=== PATIENT | female | born 2000 | race Two or more races ===

== ENCOUNTER 2023-03-26 11:32 | Emergency (ER) | payer SELFPAY ==
[2023-03-26 11:37] VITALS: BP 140/88; PULSE 83; RESP 20; TEMP 36.3; O2SAT 99; BMI 47.3
--- NOTE | 2023-03-26 11:50 | XR_ITS ---
The [address] [address] Patient Name: TEODORO HERNANDES MRN: [id number] date: 2000 Sex: F Assigned Patient Location: ER Current Patient Location: ER Accession/Order Number: [id number] Exam Date: 03/26/2023 11:50 Report Date: 03/26/2023 12:48 At the request of: LEEANNA CORTES Procedure: XR knee LT 4V PROCEDURE: XR knee LT 4V HISTORY: fall, left knee injury COMPARISON: None. FINDINGS: BONES:No fracture, acute abnormality, or significant arthropathy. SOFT TISSUES:No visible soft tissue swelling. EFFUSION:None visible. OTHER: Negative. XR/XR knee LT 4V IMPRESSION: 1. No acute bone abnormality. Electronically authenticated by: ZURI VITALE Date: 03/26/2023 12:48
--- NOTE | 2023-03-26 13:10 | ED.LOWEXI1 ---
HPI - Extremity Injury (Lower) General Chief Complaint: Extremity Injury, Lower Stated Complaint: LOWER EXTREMITY LEFT Time Seen by Provider: 03/26/23 11:39 Source: patient Mode of arrival: walk-in Limitations: no limitations History of Present Illness HPI Narrative: the patient fell yesterday and injured left knee while trying to get onto a motorcycle. She said that as she lifted the right leg, the left knee popped and she fell to the ground. She complains of pain to the front of the knee. She took some ibuprofen yesterday, non today. No prior injury or surgery to the knee. Related Data Home Medications Medication Instructions Recorded Confirmed No Known Home Medications 03/26/23 03/26/23 Allergies Allergy/AdvReac Type Severity Reaction Status Date / Time No Known Drug Allergies Allergy Verified 03/26/23 11:41 Exam Narrative Exam Narrative: Vital signs reviewed and nurse's notes. The patient is not hypoxic. General: Alert, no acute distress, patient resting comfortably Skin: warm, intact, no pallor noted Head: Normocephalic, atraumatic Eye: Normal conjunctiva Respiratory: No acute distress Musculoskeletal: No evidence of deformity to the L knee. There is minimal amount of swelling. There is no ecchymosis. No erythema or warmth noted. DP and PT pulses are intact 2+. Normal sensation, normal capillary refill less than 2 seconds. There is no cyanosis or mottling noted. The patient has tenderness to the anterior knee and pain with patellar manipulation. The patient has no laxity with varus or valgus stressing. The patient has negative anterior drawer and Juan Jose testing. The patient was able to flex and extend although with pain. Patient was able to extend leg off the cart without difficulty. No tenderness noted to the 5th MT, midfoot, ankle or proximal fibular area. There is no pain with calcaneal squeeze, achilles tendon is intact and no defect is palpated. The patient has no pelvic instability. The patient has no shortening or rotation noted to the bilateral lower extremities. Neurological: alert and orient x4, normal sensory and motor observed. Psychiatric: Cooperative Constitutional Vital Signs, click to edit/add: Last Vital Signs Temp 97.4 F L 03/26/23 11:37 Pulse 83 03/26/23 11:37 Resp 20 03/26/23 11:37 BP 140/88 03/26/23 11:37 Pulse Ox 99 03/26/23 11:37 O2 Del Method Room Air 03/26/23 11:37 Course Vital Signs Vital signs: Vital Signs Temperature 97.4 F L 03/26/23 11:37 Pulse Rate 83 03/26/23 11:37 Respiratory Rate 20 03/26/23 11:37 Blood Pressure 140/88 03/26/23 11:37 Pulse Oximetry 99 03/26/23 11:37 Oxygen Delivery Method Room Air 03/26/23 11:37 Temperature 97.4 F L 03/26/23 11:37 Pulse Rate 83 03/26/23 11:37 Respiratory Rate 20 03/26/23 11:37 Blood Pressure 140/88 03/26/23 11:37 Pulse Oximetry 99 03/26/23 11:37 Oxygen Delivery Method Room Air 03/26/23 11:37 MDM - Extremity Injury (Lower) MDM Narrative Medical decision making narrative: xrays of the left knee obtained and were negative for fracture, dislocation or other acute bony abnormality. Patient declined offer for stephania wrap and prescription meds -s he said she had no insurance and would use her friend's stephania wrap. I gave her referral info for Dr Bose but she did not seem enthusiastic about calling. Discussed R.I.C.E. therapy. Imaging Data xr knee: Radiologist's impression: Patient Name: TEODORO HERNANDES MRN: [id number] date: 2000 Sex: F Assigned Patient Location: ER Current Patient Location: ER Accession/Order Number: [id number] Exam Date: 03/26/2023 11:50 Report Date: 03/26/2023 12:48 At the request of: LEEANNA CORTES Procedure: XR knee LT 4V PROCEDURE: XR knee LT 4V HISTORY: fall, left knee injury COMPARISON: None. FINDINGS: BONES:No fracture, acute abnormality, or significant arthropathy. SOFT TISSUES:No visible soft tissue swelling. EFFUSION:None visible. OTHER: Negative. IMPRESSION: 1. No acute bone abnormality. Electronically authenticated by: TIMA VITALE Date: 03/26/2023 12:48 Discharge Plan Discharge Chief Complaint: Extremity Injury, Lower Clinical Impression: Left knee sprain Time of Disposition Decision: 13:19 Prescriptions / Home Meds: No Action No Known Home Medications Instructions: Knee Sprain (ED) Stand Alone Forms: Portal Instructions Referrals: Physician,Non-Staff, [Primary Care Provider] - 1 week Tima Bose MD [Physician] - 1 week
== END 2023-03-26 13:42 | disposition home or self-care (01) ==
PROVIDERS: Emergency Provider Emergency Medicine
DX: S83.92XA Sprain of unspecified site of left knee, initial encounter (principal); X50.9XXA Other and unspecified overexertion or strenuous movements or postures, initial encounter
CPT/HCPCS: 73564; 99283

== ENCOUNTER 2023-07-03 12:37 | Outpatient (OUT) | payer BC, SELFPAY ==
--- NOTE | 2023-07-03 12:39 | US_ITS ---
[address] [address] Patient Name: TEODORO HERNANDES MRN: [id number] date: 2000 Sex: F Assigned Patient Location: [facility] Current Patient Location: [facility] Accession/Order Number: [id number] Exam Date: 07/03/2023 12:39 Report Date: 07/03/2023 13:34 At the request of: CHUNG MAGDALENO Procedure: US OB transvaginal EXAMINATION: US OB transvaginal HISTORY: MISSED MENSES COMPARISON: No relevant comparison available. FINDINGS: GESTATIONAL SAC: Present and normal appearing. YOLK SAC: Present and normal appearing. POLE: Present and normal appearing. CARDIAC: Present. UTERUS: Normal size and appearance. OVARIES: Right: Normal. Left: Normal. CERVIX: 4.8 cm in length and closed. CUL-DE-SAC: Normal. OTHER: None. AGE BY LMP: 8 weeks 0 days ROGER BY LMP: 02/12/2024 AGE BY US CRL: 7 weeks 3 days ROGER BY US CRL: 02/16/2024 US/US OB transvaginal IMPRESSION: 1. Single live intrauterine . Electronically authenticated by: ZURI VITALE Date: 07/03/2023 13:34
--- OUTSIDE RECORDS SUMMARY | 2023-07-03 12:58 | XMS_ITS | CCD ---
Author Name Unknown Address [address] [place] [address] Organization [facility] Care Team Providers Care Safety Security Officer Name Role Phone Unavailable Primary Care Provider UnavailDAVID Ayers Attending Unavailable NO FAMILY, PHYSICIAN Primary Care Provider Unava MD Anders Tse Jr Emergency Provider PAY ., DR GREGORY Admitting Unavailable PAY ., DR GREGORY Consulting Unavailable REQUEST, DR IBRAHIM LISTED Primary Care Unavaila ble PAY ., DR GREGORY Attending Unavailable PADDY SAPP Consulting Unavailable PAY ., DR GREGORY Attending Unavailable PAY ., DR GREGORY Admitting Unavailable GRECHNY ., AMAYA FRANCISCO Consulting Unavailabl e REQUEST, DR IBRAHIM LISTED Primary Care Unavaila ble MARKER ., DR JERNIGAN Attending Unavailable MARKER ., DR JERNIGAN Admitting Unavailable MISC, DR VAN Primary Care Unavailable MARKER ., DR JERNIGAN Consulting Unavailable STRAWSER, [facility] Consulting Unavailable NO FAMILY, PHYSICIAN Primary Care Unavailable Anders Sesay Jr Attending Unavailable Anders Sesay Jr Admitting Unavailable Allergies Allergy Classification Reported Allergen(s) Allergy Type Date of Onset Reaction(s) Facility (1 source) Latex Propensity to adverse reactions to drug 07-07-2020 [facility] [place] Medications Current Medications Medication Drug Class(es) Dates Sig (Normalized) Sig (Original) cephalexin 500 mg oral capsule (2 sources) Cephalosporin Antibacterial Start: 07-08-2020 End: 07-18-2020 take 1 capsule by mouth twice daily cephALEXin (KEFLEX) 500 MG capsule Take 1 capsule by mouth 2 times daily for 10 days 20 capsule 0 07/08/2020 07/18/2020 Active Start: 07-08-2020 End: 07-08-2020 cephALEXin (KEFLEX) capsule 500 mg cholecalciferol 2000 unt oral capsule (1 source) Vitamin D Start: 07-08-2020 Vitamin D, Cho lecalciferol, 50 MCG (1999 UT) CAPS Take 2,000 Units by mouth daily 30 capsule 0 07/08/2020 Active Start: 07-08-2020 Vitamin D, Cho lecalciferol, 50 MCG (1999 UT) CAPS Take 2,000 Units by mouth daily 30 capsule 0 07/08/2020 Active ibuprofen 600 mg oral tablet (2 sources) Nonsteroidal Anti-inflammatory Drug Start: 06-27-2020 End: 10-19-2021 take 600 mg by mouth every eight hours Ibuprofen Active 600 MG PO Q8H October 19, 2021 1:51am metroNIDAZOLE 500 mg oral tablet (2 sources) Nitroimidazole Antimicrobial Start: 07-08-2020 End: 07-18-2020 take 1 tablet by mouth twice daily metroNIDAZOLE (FLAGYL) 500 MG tablet Take 1 tablet by mouth 2 times daily for 10 days 20 tablet 0 07/08/2020 07/18/2020 Active Completed/Discontinued Medications Medication Drug Class(es) Dates Sig (Normalized) Sig (Original) fluconazole 150 mg oral tablet (1 source) Azole Antifungal Start: 06-27-2020 End: 10-19-2021 take 1 tablet by mouth once Fluconazole (Diflucan) 150 mg tablet Discontinued 150 MG PO Once June 27, 2020 4:52am October 19, 2021 1:02am as a single dose magnesium oxide 400 mg oral tablet (1 source) Start: 07-08-2020 End: 07-08-2020 magnesium oxide (MAG-OX) tablet 400 mg nitrofurantoin, macrocrystals 25 mg / nitrofurantoin, monohydrate 75 mg oral capsule (1 source) Nitrofuran Antibacterial Start: 06-27-2020 End: 10-19-2021 take 1 capsule by mouth every twelve hours at mealtime Nitrofurantoin Monohyd/M-Cryst (Macrobid) 100 mg capsule Discontinued 100 MG PO Q12H 10 5 June 27, 2020 4:52am October 19, 2021 1:02am administer with a meal/food; swallow whole; do not open, crush, dissolve , or chew Problems Active Problems Problem Classification Problem Date Documented Date Episodic/Chronic Asthma (1 source) Unspecified asthma, uncomplicated; Translations: [UNSPECIFIED ASTHMA UNCOMPLICATED] Onset: 09-03-2022 Chronic Attention-deficit, conduct, and disruptive behavior disorders (1 source) Attention-deficit hyperactivity disorder, unspecified type; Translations: [ADHD UNSPECIFIED TYPE] Onset: 09-03-2022 Chronic E Codes: Struck by; against (1 source) Walked into furniture, initial encounter; Translations: [WALKED INTO FURNITURE INITIAL ENC] Onset: 09-03-2022 Episodic Fracture of lower limb (1 source) Displaced fracture of proximal phalanx of right great toe, initial encounter for closed fracture; Translations: [DSPL FX PROX PHAL RT GT TOE INT ISRRAEL] Onset: 09-03-2022 Episodic Inflammatory diseases of female pelvic organs (2 sources) Bacterial vaginosis; Translations: [Vaginitis] 06-27-2020 Episodic Nonmalignant breast conditions (1 source) Breast lump; Translations: [Unspecified lump in unspecified breast] 10-19-2021 Episodic Nutritional deficiencies (1 source) Vitamin D deficiency; Translations: [Vitamin D deficiency] Chronic Other connective tissue disease (3 sources) Pain in right toe(s); Translations: [PAIN IN RIGHT TOES] Onset: 08-30-2022 Episodic Other female genital disorders (1 source) Vaginal bleeding; Translations: [Vaginal bleeding] Episodic Other nutritional; endocrine; and metabolic disorders (1 source) Hypomagnesemia; Translations: [Hypomagnesemia] Chronic Other screening for suspected conditions (not mental disorders or infectious disease) (4 sources) Encounter for test, result negative; Translations: [ENC TEST RESULT NEGATIVE] Onset: 06-28-2022 Episodic Other skin disorders (1 source) Rash and other nonspecific skin eruption; Translations: [RASH OTH NONSPECIFIC SKIN ERUPTION] Onset: 07-01-2022 Episodic Superficial injury; contusion (1 source) Contusion of right great toe without damage to nail, initial encounter; Translations: [CONTUS RT GRT TOE W/O DMG NAIL INIT] Onset: 09-03-2022 Episodic Urinary tract infections (2 sources) Acute cystitis; Translations: [Urinary tract infectious disease] 06-27-2020 Episodic Past or Other Problems Problem Classification Problem Date Documented Da te Episodic/Chronic Abdominal pain (3 sources) Pain in pelvis; Translations: [Pelvic and perineal pain] Onset: 10-19-2021 10-19-2021 Episodic Other female genital disorders (3 sources) Other specified conditions associated with female genital organs and menstrual cycle; Translations: [OTH SPEC COND FE GEN ORG MENST CYCL] Onset: 04-01-2022 Episodic Results Test Name Value Interpretation Reference Range Facility XR FOOT RT MIN 3 VIEWSon XR FOOT RT MIN 3 VIEWS CLINICAL HISTORY: Bone injury. Great toe pain. Patient kicked a dresser approximately 1 hour ago. EXAMINATION: Right foot: 08/30/2022. COMPARISON: None. FINDINGS: 3 views are provided which demonstrate minimally displaced, obliquely oriented fracture through the base of the distal phalanx of first digit with extension into the intra-articular surface. There is some associated soft tissue swelling. There are no other fractures or dislocations. There is an enthesophyte at the insertion site of plantar aponeurosis. There are no abnormal calcifications or radiopaque foreign bodies. IMPRESSION: 1. Slightly obliquely oriented fracture extending from base of the distal phalanx of first digit along its medial aspect to the level of mid shaft compatible with intra-articular fracture. There is no significant displacement. There is some associated soft tissue swelling. Electronically authenticated by: PADDY SAPP Date: 2022-08-30 14:42 Normal [facility] CBC AUTO DIFFon 06-28-2022 BASO # 0.0 103/ul Normal 0.0-0.[address] [facility] Comment on above: Performed By: #### C BC #### [facility] [address] [address] [address] Jerald Poon Basophils/100 WBC (Bld) 0.3 % Normal 0.2-2.0 [facility] Comment on above: Performed By: #### C BC #### [facility] [address] [address] [address] Jerald Poon EO # 0.1 103/ul Normal 0.0-0.[address] [facility] Comment on above: Performed By: #### C BC #### [facility] [address] [address] [address] Jerald Poon Eosinophils/100 WBC (Bld) 1.1 % Normal 0.9-7.[address] [facility] Comment on above: Performed By: #### C BC #### [facility] [address] [place] [address] Dr. Jerald Poon Erythrocyte distribution width (RBC) [Ratio] 14.5 % Normal 11.0-15.[address] [facility] Comment on above: Performed By: #### C BC #### [facility] [address] [place] [address] Dr. Jerald Poon Hematocrit (Bld) [Volume fraction] 36.7 % Normal 36.0-48.[address] [facility] Comment on above: Performed By: #### C BC #### [facility] [address] [place] [address] Dr. Jerald Poon Hemoglobin (Bld) [Mass/Vol] 13.0 g/dL Normal 12.0-16.[address] [facility] Comment on above: Performed By: #### C BC #### [facility] [address] [place] [address] Dr. Jerald Poon IG # 0.04 10e3/ul Critically high 0.00-0.03 [facility] Comment on above: Performed By: #### C BC #### [facility] [address] [place] [address] Dr. Jerald Poon IG % 0.3 % Normal 0.0-0.[address] [facility] Comment on above: Performed By: #### C BC #### [facility] [address] [place] [address] Dr. Jerald Poon LYMPH # 3.0 103/ul Normal 1.2-3.[address] [facility] Comment on above: Performed By: #### C BC #### [facility] [address] [place] [address] Dr. Jerald Poon Lymphocytes/100 WBC (Bld) 26.2 % Normal 20.5-60.[address] [facility] Comment on above: Performed By: #### C BC #### [facility] [address] [place] [address] Dr. Jerald Poon MANUAL DIFF REQ NO Normal [facility] Comment on above: Performed By: #### C BC #### [facility] [address] [address] [address] Jerald Poon MCH (RBC) [Entitic mass] 27.1 pg Normal 26.7-34.[address] [facility] Comment on above: Performed By: #### C BC #### [facility] [address] [place] [address] Dr. Jerald Poon MCHC (RBC) [Mass/Vol] 35.4 g/dL Critically high 29.9-35.[address] [facility] Comment on above: Performed By: #### C BC #### [facility] [address] [place] [address] Dr. Jerald Poon MCV (RBC) [Entitic vol] 76.6 fL Critically low 81.0-99. [address] [facility] Comment on above: Performed By: #### C BC #### [facility] [address] [place] [address] Dr. Jerald Poon MONO # 0.8 103/ul Normal 0.3-0.[address] [facility] Comment on above: Performed By: #### C BC #### [facility] [address] [place] [address] Dr. Jerald Poon Monocytes/100 WBC (Bld) 7.0 % Normal 1.7-12.0 [facility] Comment on above: Performed By: #### C BC #### [facility] [address] [place] [address] Dr. Jerald Poon NEUT # 7.5 103/ul Critically high 1.4-6.5 [facility] Comment on above: Performed By: #### C BC #### [facility] [address] [place] [address] Dr. Jerald Poon Neutrophils/100 WBC (Bld) 65.1 % Normal 43.0-75.[address] [facility] Comment on above: Performed By: #### C BC #### [facility] [address] [place] [address] Dr. Jerald Poon Platelet mean volume (Bld) [Entitic vol] 10.0 fL Normal 9.5-13.[address] [facility] Comment on above: Performed By: #### C BC #### [facility] [address] [place] [address] Dr. Jerald Poon PLT 387 103/ul Normal 150-[address] [facility] Comment on above: Performed By: #### C BC #### [facility] [address] [place] [address] Dr. Jerald Poon RBC 4.79 106/ul Normal 4.20-5.[address] [facility] Comment on above: Performed By: #### C BC #### [facility] [address] [place] [address] Dr. Jerald Poon WBC 11.6 103/ul Critically high 4.0-11.0 [facility] Comment on above: Performed By: #### C BC #### [facility] [address] [place] [address] Dr. Jerald Poon CULTURE URINEon 06-28-2022 CULTURE URINE Culture Observations: LIGHT GROWTH OF MIXED GENITAL ZACARIAS. NO POTENTIAL PATHOGENS SEEN. Normal [facility] Comment on above: Performed By: #### U RCX #### [facility] [address] [place] [address] Dr. Jerald Poon ER URINE PROFILEon 3 Bilirubin Ql (U) Negative Normal NEGATIVE [facility] Comment on above: Performed By: #### U MICRO, ERUR #### [facility] [address] [place] [address] Dr. Jerald Poon Clarity (U) CLEAR Normal CLEAR [facility] Comment on above: Performed By: #### U MICRO, ERUR #### [facility] [address] [place] [address] Dr. Jerald Poon Color (U) YELLOW Normal YELLOW [facility] Comment on above: Performed By: #### U MICRO, ERUR #### [facility] [address] [place] [address] Dr. Jerald CEBALLOS A micrscopic examination will be performed if indicated. Normal [facility] Comment on above: Performed By: #### U MICRO, ERUR #### [facility] [address] [place] [address] Dr. Jerald Poon Glucose Ql (U) Negative Normal NEGATIVE [facility] Comment on above: Performed By: #### U MICRO, ERUR #### [facility] [address] [address] [address] Jerald Poon Hemoglobin Ql (U) Negative Normal NEGATIVE [facility] Comment on above: Performed By: #### U MICRO, ERUR #### [facility] [address] [address] [address] Jerald Poon Ketones Ql (U) 40 mg/dl Abnormal NEGATIVE [facility] Comment on above: Performed By: #### U MICRO, ERUR #### [facility] [address] [address] [address] Jerald Poon LEUKOCYTES TRACE Abnormal NEGATIVE [facility] Comment on above: Performed By: #### U MICRO, ERUR #### [facility] [address] [place] [address] Dr. Jerald Poon Nitrite Ql (U) Negative Normal NEGATIVE [facility] Comment on above: Performed By: #### U MICRO, ERUR #### [facility] [address] [address] [address] Jerald Poon pH (U) 6.0 [pH] Normal 5-[address] [facility] Comment on above: Performed By: #### U MICRO, ERUR #### [facility] [address] [address] [address] Jerald Poon SPEC GRAVITY >=1.030 Abnormal 1.005-<=1.025 [facility] Comment on above: Performed By: #### U MICRO, ERUR #### [facility] [address] [address] [address] Jerald Poon UA PROTEIN Negative Normal NEGATIVE/ TRACE [facility] Comment on above: Performed By: #### U MICRO, ERUR #### [facility] [address] [address] [address] Jerald Poon UR MICRO IND INDICATED Normal [facility] Comment on above: Performed By: #### U MICRO, ERUR #### [facility] [address] [place] [address] Dr. Jerald Poon Urobilinogen Qn (U) 0.2 {Lyly'U}/dL Normal 0.2 - 1. [address] [facility] Comment on above: Performed By: #### U MICRO, ERUR #### [facility] [address] [place] [address] Dr. Jerald Poon PREG QUANT HCGon 06-28-2022 HCG QUANT <[address] [facility] Comment on above: Performed By: #### P REGQNT #### [facility] [address] [place] [address] Dr. Jerald Poon HCG RANGE SEE BELOW Normal [facility] Comment on above: Result Comment: 5-50 0.2-1 WEEK 50-500 1-2 WEEKS 100-5,000 2-3 WEEKS 500-10,000 3-4 WEEKS 1,000-50,000 4-5 WEEKS 10,000-100,000 5-6 WEEKS 15,000-200,000 6-8 WEEKS 10,000-100,000 2-3 MONTHS Performed By: #### P REGQNT #### [facility] [address] [place] [address] Dr. Jerald Poon PROF CHEM 8 (BAS METB)on Anion gap [Moles/Vol] 14.0 mmol/L Normal [facility] Comment on above: Performed By: #### C BC #### [facility] [address] [place] [address] Dr. Jerald Poon Calcium [Mass/Vol] 9.6 mg/dL Normal 8.5-10.1 [facility] Comment on above: Performed By: #### C BC #### [facility] [address] [place] [address] Dr. Jerald Poon Chloride [Moles/Vol] 101 mmol/L Normal 98-[address] [facility] Comment on above: Performed By: #### C BC #### [facility] [address] [place] [address] Dr. Jerald Poon CO2 [Moles/Vol] 25.4 mmol/L Normal 21.0-32.0 [facility] Comment on above: Performed By: #### C BC #### [facility] [address] [address] [address] Jerald Poon Creatinine [Mass/Vol] 0.92 mg/dL Normal 0.55-1.[address] [facility] Comment on above: Performed By: #### C BC #### [facility] [address] [address] [address] Jerald Poon EGFR-AF SINGAPOREAN >60 Normal >=60 [facility] Comment on above: Performed By: #### C BC #### [facility] [address] [address] [address] Jerald Poon EGFR-NON AF SINGAPOREAN >60 Normal >=[address] [facility] Comment on above: Performed By: #### C BC #### [facility] [address] [place] [address] Dr. Jerald Poon Glucose [Mass/Vol] 101 mg/dL Normal 74-106 [facility] Comment on above: Performed By: #### C BC #### [facility] [address] [place] [address] Dr. Jerald Poon Potassium [Moles/Vol] 3.4 mmol/L Critically low 3.5-5.[address] [facility] Comment on above: Performed By: #### C BC #### [facility] [address] [place] [address] Dr. Jerald Poon Sodium [Moles/Vol] 137 mmol/L Normal 136-145 [facility] Comment on above: Performed By: #### C BC #### [facility] [address] [address] [address] Jerald Poon Urea nitrogen [Mass/Vol] 11.0 mg/dL Normal 7.0-18.[address] [facility] Comment on above: Performed By: #### C BC #### [facility] [address] [place] [address] Dr. Jerald Poon Urea nitrogen/Creatinine [Mass ratio] 12.0 mg/mg Normal [facility] Comment on above: Performed By: #### C BC #### [facility] [address] [place] [address] Dr. Jerald Poon TSHon 06-28-2022 TSH 1.319 uIU/mL Normal 0.358-3.740 [facility] Comment on above: Performed By: #### C BC #### [facility] [address] [place] [address] Dr. Jerald Poon URINE MICROSCOPIC ONLYon BACTERIA SMALL Abnormal NONE SEEN [facility] Comment on above: Performed By: #### U MICRO, ERUR #### [facility] [address] [address] [address] Jerald Poon Bacteria identified Cx Nom (U) INDICATED Normal [facility] Comment on above: Performed By: #### U MICRO, ERUR #### [facility] [address] [place] [address] Dr. Jerald Poon CAST NONE SEEN Normal NONE SEEN [facility] Comment on above: Performed By: #### U MICRO, ERUR #### [facility] [address] [place] [address] Dr. Jerald Poon Crystals LM Nom (Urine sed) NONE SEEN Normal NONE SEEN [facility] Comment on above: Performed By: #### U MICRO, ERUR #### [facility] [address] [place] [address] Dr. Jerald Poon Epithelial cells LM Ql (Urine sed) FEW Abnormal NONE SEEN /RARE [facility] Comment on above: Performed By: #### U MICRO, ERUR #### [facility] [address] [place] [address] Dr. Jerald Poon MUCOUS NONE SEEN Normal NONE SEEN [facility] Comment on above: Performed By: #### U MICRO, ERUR #### [facility] [address] [place] [address] Dr. Jerald Poon RBC NONE SEEN Abnormal 0-2 [facility] Comment on above: Performed By: #### U MICRO, ERUR #### [facility] [address] [place] [address] Dr. Jerald Poon WBC 2-5 Abnormal NONE SEEN [facility] Comment on above: Performed By: #### U MICRO, ERUR #### [facility] [address] [place] [address] Dr. Jerald Poon CBC AUTO DIFFon 04-01-2022 BASO # 0.0 103/ul Normal 0.0-0.[address] [facility] Comment on above: Performed By: #### C BC #### [facility] [address] [place] [address] Dr. Jerald Poon Basophils/100 WBC (Bld) 0.5 % Normal 0.2-2.0 [facility] Comment on above: Performed By: #### C BC #### [facility] [address] [place] [address] Dr. Jerald Poon EO # 0.1 103/ul Normal 0.0-0.[address] [facility] Comment on above: Performed By: #### C BC #### [facility] [address] [place] [address] Dr. Jerald Poon Eosinophils/100 WBC (Bld) 1.7 % Normal 0.9-7.[address] [facility] Comment on above: Performed By: #### C BC #### [facility] [address] [place] [address] Dr. Jerald Poon Erythrocyte distribution width (RBC) [Ratio] 14.2 % Normal 11.0-15.[address] [facility] Comment on above: Performed By: #### C BC #### [facility] [address] [place] [address] Dr. Jerald Poon Hematocrit (Bld) [Volume fraction] 36.7 % Normal 36.0-48.[address] [facility] Comment on above: Performed By: #### C BC #### [facility] [address] [place] [address] Dr. Jerald Poon Hemoglobin (Bld) [Mass/Vol] 12.1 g/dL Normal 12.0-16.[address] [facility] Comment on above: Performed By: #### C BC #### [facility] [address] [place] [address] Dr. Jerald Poon IG # 0.01 10e3/ul Normal 0.00-0.[address] [facility] Comment on above: Performed By: #### C BC #### [facility] [address] [place] [address] Dr. Jerald Poon IG % 0.1 % Normal 0.0-0.[address] [facility] Comment on above: Performed By: #### C BC #### [facility] [address] [place] [address] Dr. Jerald Poon LYMPH # 2.3 103/ul Normal 1.2-3.[address] [facility] Comment on above: Performed By: #### C BC #### [facility] [address] [place] [address] Dr. Jerald Poon Lymphocytes/100 WBC (Bld) 30.8 % Normal 20.5-60.[address] [facility] Comment on above: Performed By: #### C BC #### [facility] [address] [place] [address] Dr. Jerald Poon MANUAL DIFF REQ NO Normal [facility] Comment on above: Performed By: #### C BC #### [facility] [address] [place] [address] Dr. Jerald Poon MCH (RBC) [Entitic mass] 27.3 pg Normal 26.7-34.[address] [facility] Comment on above: Performed By: #### C BC #### [facility] [address] [place] [address] Dr. Jerald Poon MCHC (RBC) [Mass/Vol] 33.0 g/dL Normal 29.9-35.[address] [facility] Comment on above: Performed By: #### C BC #### [facility] [address] [place] [address] Dr. Jerald Poon MCV (RBC) [Entitic vol] 82.7 fL Normal 81.0-99.0 [facility] Comment on above: Performed By: #### C BC #### [facility] [address] [place] [address] Dr. Jerald Poon MONO # 0.8 103/ul Normal 0.3-0.[address] [facility] Comment on above: Performed By: #### C BC #### [facility] [address] [place] [address] Dr. Jerald Poon Monocytes/100 WBC (Bld) 10.6 % Normal 1.7-12.0 [facility] Comment on above: Performed By: #### C BC #### [facility] [address] [place] [address] Dr. Jerald Poon NEUT # 4.2 103/ul Normal 1.4-6.[address] [facility] Comment on above: Performed By: #### C BC #### [facility] [address] [place] [address] Dr. Jerald Poon Neutrophils/100 WBC (Bld) 56.3 % Normal 43.0-75.[address] [facility] Comment on above: Performed By: #### C BC #### [facility] [address] [place] [address] Dr. Jerald Poon Platelet mean volume (Bld) [Entitic vol] 10.2 fL Normal 9.5-13.[address] [facility] Comment on above: Performed By: #### C BC #### [facility] [address] [place] [address] Dr. Jerald Poon PLT 375 103/ul Normal 150-450 [facility] Comment on above: Performed By: #### C BC #### [facility] [address] [place] [address] Dr. Jerald Poon RBC 4.44 106/ul Normal 4.20-5.[address] [facility] Comment on above: Performed By: #### C BC #### [facility] [address] [place] [address] Dr. Jerald Poon WBC 7.5 103/ul Normal 4.0-11.0 [facility] Comment on above: Performed By: #### C BC #### [facility] [address] [place] [address] Dr. Jerald Poon ER URINE PROFILEon 2 Bilirubin Ql (U) Negative Normal NEGATIVE [facility] Comment on above: Performed By: #### C BC #### [facility] [address] [place] [address] Dr. Jerald Poon Clarity (U) CLEAR Normal CLEAR [facility] Comment on above: Performed By: #### C BC #### [facility] [address] [address] [address] Jerald Poon Color (U) YELLOW Normal YELLOW [facility] Comment on above: Performed By: #### C BC #### [facility] [address] [address] [address] Jreald CEBALLOS A micrscopic examination will be performed if indicated. Normal [facility] Comment on above: Performed By: #### C BC #### [facility] [address] [address] [address] Jerald Poon Glucose Ql (U) Negative Normal NEGATIVE [facility] Comment on above: Performed By: #### C BC #### [facility] [address] [place] [address] Dr. Jerald Poon Hemoglobin Ql (U) Negative Normal NEGATIVE [facility] Comment on above: Performed By: #### C BC #### [facility] [address] [address] [address] Jerald Poon Ketones Ql (U) Negative Normal NEGATIVE [facility] Comment on above: Performed By: #### C BC #### [facility] [address] [place] [address] Dr. Jerald Poon LEUKOCYTES Negative Normal NEGATIVE [facility] Comment on above: Performed By: #### C BC #### [facility] [address] [place] [address] Dr. Jerald Poon Nitrite Ql (U) Negative Normal NEGATIVE [facility] Comment on above: Performed By: #### C BC #### [facility] [address] [place] [address] Dr. Jerald Poon pH (U) 7.0 [pH] Normal 5-9 [facility] Comment on above: Performed By: #### C BC #### [facility] [address] [place] [address] Dr. Jerald Poon SPEC GRAVITY 1.025 Normal 1.005-<=1.025 [facility] Comment on above: Performed By: #### C BC #### [facility] [address] [place] [address] Dr. Jerald Poon UA PROTEIN Negative Normal NEGATIVE/ TRACE [facility] Comment on above: Performed By: #### C BC #### [facility] [address] [address] [address] Jerald Poon UR MICRO IND NOT INDICATED Normal [facility] Comment on above: Performed By: #### C BC #### [facility] [address] [place] [address] Dr. Jerald Poon Urobilinogen Qn (U) 1.0 {Lyly'U}/dL Normal 0.2 - 1. [address] [facility] Comment on above: Performed By: #### C BC #### [facility] [address] [place] [address] Dr. Jerald Poon PREG QUANT HCGon 04-01-2022 HCG QUANT 1 mIU/mL Normal [facility] Comment on above: Performed By: #### P REGQNT #### [facility] [address] [place] [address] Dr. Jerald Poon HCG RANGE SEE BELOW Normal [facility] Comment on above: Result Comment: 5-50 0.2-1 WEEK 50-500 1-2 WEEKS 100-5,000 2-3 WEEKS 500-10,000 3-4 WEEKS 1,000-50,000 4-5 WEEKS 10,000-100,000 5-6 WEEKS 15,000-200,000 6-8 WEEKS 10,000-100,000 2-3 MONTHS Performed By: #### P REGQNT #### [facility] [address] [place] [address] Dr. Jerald Poon PROF 14(COMP METB)on 022 Albumin [Mass/Vol] 3.6 g/dL Normal 3.4-5.0 [facility] Comment on above: Performed By: #### C MP #### [facility] [address] [place] [address] Dr. Jerald Poon Albumin/Globulin [Mass ratio] 0.8 {ratio} Normal [facility] Comment on above: Performed By: #### C MP #### [facility] [address] [address] [address] Jerald Poon ALP [Catalytic activity/Vol] 65 U/L Normal 46-[address] [facility] Comment on above: Performed By: #### C MP #### [facility] [address] [place] [address] Dr. Jerald Poon ALT [Catalytic activity/Vol] 22 U/L Normal 14-[address] [facility] Comment on above: Performed By: #### C MP #### [facility] [address] [address] [address] Jerald Poon Anion gap [Moles/Vol] 10.3 mmol/L Normal Th e [facility] Comment on above: Performed By: #### C MP #### [facility] [address] [place] [address] Dr. Jerald Poon AST [Catalytic activity/Vol] 14 U/L Critically low 15-[address] [facility] Comment on above: Performed By: #### C MP #### [facility] [address] [place] [address] Dr. Jerald Poon Bilirubin [Mass/Vol] 0.1 mg/dL Critically low 0.2-1.[address] [facility] Comment on above: Performed By: #### C MP #### [facility] [address] [place] [address] Dr. Jerald Poon Calcium [Mass/Vol] 8.6 mg/dL Normal 8.5-10.1 [facility] Comment on above: Performed By: #### C MP #### [facility] [address] [place] [address] Dr. Jerald Poon Chloride [Moles/Vol] 104 mmol/L Normal 98-107 [facility] Comment on above: Performed By: #### C MP #### [facility] [address] [address] [address] Jerald Poon CO2 [Moles/Vol] 28.1 mmol/L Normal 21.0-32.0 [facility] Comment on above: Performed By: #### C MP #### [facility] [address] [place] [address] Dr. Jerald Poon Creatinine [Mass/Vol] 0.99 mg/dL Normal 0.55-1.[address] [facility] Comment on above: Performed By: #### C MP #### [facility] [address] [address] [address] Jerald Poon EGFR-AF SINGAPOREAN >60 Normal >=60 [facility] Comment on above: Performed By: #### C MP #### [facility] [address] [address] [address] Jerald Poon EGFR-NON AF SINGAPOREAN >60 Normal >=[address] [facility] Comment on above: Performed By: #### C MP #### [facility] [address] [address] [address] Jerald Poon Globulin (S) [Mass/Vol] 4.5 g/dL Normal T [facility] Comment on above: Performed By: #### C MP #### [facility] [address] [place] [address] Dr. Jerald Poon Glucose [Mass/Vol] 94 mg/dL Normal 74-106 [facility] Comment on above: Performed By: #### C MP #### [facility] [address] [address] [address] Jerald Poon Potassium [Moles/Vol] 3.4 mmol/L Critically low 3.5-5.[address] [facility] Comment on above: Performed By: #### C MP #### [facility] [address] [address] [address] Jerald Poon Protein [Mass/Vol] 8.1 g/dL Normal 6.4-8.2 [facility] Comment on above: Performed By: #### C MP #### [facility] [address] [address] [address] Jerald Poon Sodium [Moles/Vol] 139 mmol/L Normal 136-145 [facility] Comment on above: Performed By: #### C MP #### [facility] [address] [address] [address] Jerald Poon Urea nitrogen [Mass/Vol] 8.0 mg/dL Normal 7.0-18.[address] [facility] Comment on above: Performed By: #### C MP #### [facility] [address] [place], [place] [address] Dr. Jerald Poon Urea nitrogen/Creatinine [Mass ratio] 8.1 mg/mg Normal [facility] Comment on above: Performed By: #### C MP #### [facility] [address] [place], [place] [address] Dr. Jerald Poon US PELVIS TRANSVAGon 022 US PELVIS TRANSVAG US PELVIS TRANSVAG HISTORY: Torsion of ovary COMPARISONS: None TECHNIQUE: Real-time sonography of the pelvis was performed. FINDINGS: UTERUS: Normal in size and echogenicity. The uterus measures 8.0 x 4.7 x 3.9 cm. MYOMETRIUM:Unremarka ble. ENDOMETRIUM: The endometrium is within normal limits. The endometrium measures1.5 cm which is slightly thickened. RIGHT OVARY: Within normal limits without suspicious masses or cyst. There is normal blood flow. The right ovary measures 3.6 x 3.1 x 2.6 cm. LEFT OVARY: The left ovary is not visualized due to bowel gas interference. OTHER:There is no significant free fluid in the pelvis. IMPRESSION: Mildly thickened endometrium. Nonvisualization of the left ovary. Unremarkable pelvic ultrasound otherwise. Electronically authenticated by: LUH MANRIQUE Date: 2022-04-01 21:[address] [facility] Automated erythrocytes count in urine sediment (number/area)Ordered By: Anders Sesay on 10-19-2021 RBC Auto (Urine sed) [#/Area] 1-2 [HPF] [facility] Automated leukocytes count i n urine sediment (number/area)Ordered By: Anders Sesay on 10-19-2021 WBC Auto (Urine sed) [#/Area] 3-4 [HPF] [facility] Basophils Auto (Bld) [#/Vol] Ordered By: Anders Sesay on 10-19-2021 Basophils (Bld) [#/Vol] 0.1 10*3/uL 0.0-0.2 [facility] Basophils/100 WBC Auto (Bld) Ordered By: Anders Sesay on 10-19-2021 Basophils/100 WBC (Bld) 0.6 % [facility] Bilirubin Test strip Ql (U)O rdered By: Anders Sesay on 10-19-2021 Bilirubin Ql (U) Negative Negative [facility] Blood hemoglobin measurement (mass/volume)Ordered By: Anders Sesay on 10-19-2021 Hemoglobin (Bld) [Mass/Vol] 13.2 g/dL 11.8-15.4 [facility] Blood leukocytes automated c ount (number/volume)Ordered By: Anders Sesay on 10-19-2021 WBC (Bld) [#/Vol] 9.1 10*3/uL 4.5-11.0 [facility] Body fluid albumin measureme nt (mass/volume)Ordered By: Anders Sesay on 10-19-2021 Albumin (Body fld) [Mass/Vol] 3.8 g/dL 3.2-5.5 [facility] Color Auto (U)Ordered By: Jason Sesay on 10-19-2021 Color (U) Yellow Yellow [facility] Creatinine and Glomerular fi ltration rate.predicted panel (S/P/Bld)Ordered By: Anders Sesay on 10-19-2021 Creatinine [Mass/Vol] 0.87 mg/dL 0.44-1.03 [facility] Eosinophils Auto (Bld) [#/Vo l]Ordered By: Anders Sesay on 10-19-2021 Eosinophils (Bld) [#/Vol] 0.1 10*3/uL 0.0-0.45 [facility] Eosinophils/100 WBC Auto (Bl d)Ordered By: Anders Sesay on 10-19-2021 Eosinophils/100 WBC (Bld) 0.9 % [facility] Erythrocyte distribution wid th Auto (RBC) [Ratio]Ordered By: Anders Sesay on 10-19-2021 Erythrocyte distribution width (RBC) [Ratio] 16.4 % 11.9-15.3 [facility] Estimated glomerular filtrat ion rate (GFR) non- AmericanOrdered By: Anders Sesay on 10-19-2021 GFR/1.73 sq M.predicted among non-blacks MDRD (S/P/Bld) [Vol rate/Area] > 60 mL/Min [facility] Globulin Calc (S) [Mass/Vol] Ordered By: Anders Sesay on 10-19-2021 Globulin (S) [Mass/Vol] 4.3 g/dL F [facility] HCG ( test) IA.rapi d Ql (U)Ordered By: Anders Sesay on 10-19-2021 HCG ( test) Ql (U) Negative [facility] Hematocrit Auto (Bld) [Volum e fraction]Ordered By: Anders Sesay on 10-19-2021 Hematocrit (Bld) [Volume fraction] 40.2 % 34.0-46.4 [facility] Ketones Auto test strip (U) [Mass/Vol]Ordered By: Anders Sesay on 10-19-2021 Ketones (U) [Mass/Vol] Negative Negative [facility]ematology and Cell countsOrdered By: Anders Sesay on 10-19-2021 Nucleated RBC/100 WBC (Bld) [Ratio] 0.2 % 0-0.5 [facility] - UrinalysisOrder ed By: Anders Sesay on 10-19-2021 Hyaline casts LM Ql (Urine sed) 0-8 [LPF] [facility] Lymphocytes Auto (Bld) [#/Vo l]Ordered By: Anders Sesay on 10-19-2021 Lymphocytes (Bld) [#/Vol] 2.4 10*3/uL 1.00-4.8 [facility] Lymphocytes/100 WBC Auto (Bl d)Ordered By: Anders Sesay on 10-19-2021 Lymphocytes/100 WBC (Bld) 26.7 % [facility] MCH Auto (RBC) [Entitic mass ]Ordered By: Anders Sesay on 10-19-2021 MCH (RBC) [Entitic mass] 26.3 pg 24.7-34.3 [facility] MCHC Auto (RBC) [Mass/Vol]Or dered By: Anders Sesay on 10-19-2021 MCHC (RBC) [Mass/Vol] 32.9 g/dL 32.0-35.0 [facility] MCV Auto (RBC) [Entitic vol] Ordered By: Anders Sesay on 10-19-2021 MCV (RBC) [Entitic vol] 80.1 fL 80-100 F [facility] Monocytes Auto (Bld) [#/Vol] Ordered By: Anders Sesay on 10-19-2021 Monocytes (Bld) [#/Vol] 0.7 10*3/uL 0.0-0.8 [facility] Monocytes/100 WBC Auto (Bld) Ordered By: Anders Sesay on 10-19-2021 Monocytes/100 WBC (Bld) 7.6 % F [facility] Neutrophils Auto (Bld) [#/Vo l]Ordered By: Anders Sesay on 10-19-2021 Neutrophils (Bld) [#/Vol] 5.8 10*3/uL 1.8-7.7 [facility] Neutrophils/100 WBC Auto (Bl d)Ordered By: Anders Sesay on 10-19-2021 Neutrophils/100 WBC (Bld) 64.2 % [facility] Nitrite Test strip Ql (U)Ord ered By: Anders Sesay on 10-19-2021 Nitrite Ql (U) Negative Negative [facility] No Panel InformationOrdered By: Anders Sesay on 10-19-2021 Estimated GFR () > 60 mL/Min [facility] Comment on above: GFR estimated refere nce range: According to KDOQI guidelines, <60 ml/min/1.73m2 is sufficient to diagnose a patient with chronic kidney disease. Pharmacy Creatinine Clearance (Chem 147.41 [facility] Platelet mean volume Auto (B ld) [Entitic vol]Ordered By: Anders Sesay on 10-19-2021 Platelet mean volume (Bld) [Entitic vol] 8.6 fL 6.3-10.7 [facility] Platelets Auto (Bld) [#/Vol] Ordered By: Anders Sesay on 10-19-2021 Platelets (Bld) [#/Vol] 395 10*3/uL 150-450 [facility] Protein Auto test strip (U) [Mass/Vol]Ordered By: Anders Sesay on 10-19-2021 Protein (U) [Mass/Vol] Negative Negative [facility] Protein [Mass/volume] in Ser um or PlasmaOrdered By: Anders Sesay on 10-19-2021 Protein [Mass/Vol] 8.1 g/dL 6.1-7.9 [facility] RBC Auto (Bld) [#/Vol]Ordere d By: Anders Sesay on 10-19-2021 RBC (Bld) [#/Vol] 5.02 10*6/uL 3.60-5.00 [facility] Serum or plasma alanine ayoub otransferase measurement without P-5'-P (enzymatic activiOrdered By: Anders Sesay on 10-19-2021 ALT No additional P-5'-P [Catalytic activity/Vol] 20 U/L 10-60 [facility] Serum or plasma albumin/glob ulin mass ratioOrdered By: Anders Sesay on 10-19-2021 Albumin/Globulin [Mass ratio] 0.9 {ratio} [facility] Serum or plasma alkaline cosmo sphatase measurement (enzymatic activity/volume)Ordered By: Anders Sesay on 10-19-2021 ALP [Catalytic activity/Vol] 55 U/L 32-92 [facility] Serum or plasma aspartate am inotransferase measurement (enzymatic activity/volume)Ordered By: Anders Sesay on 10-19-2021 AST [Catalytic activity/Vol] 17 U/L 10-42 [facility] Serum or plasma calcium joann urement (mass/volume)Ordered By: Anders Sesay on 10-19-2021 Calcium [Mass/Vol] 9.1 mg/dL 8.2-10.2 [facility] Serum or plasma chloride adan surement (moles/volume)Ordered By: Anders Sesay on 10-19-2021 Chloride [Moles/Vol] 103 mmol/L 95-114 [facility] Serum or plasma glucose joann urement (mass/volume)Ordered By: Anders Sesay on 10-19-2021 Glucose [Mass/Vol] 105 mg/dL 70-100 [facility] Comment on above: ADA recommended refe rence range Random Glucose Reference Range is dependent on time and content of last meal. Glucose of more than 200 mg/dL in a nonstressed, ambulatory subject supports the diagnosis of Diabetes Mellitus. Serum or plasma potassium me asurement (moles/volume)Ordered By: Anders Sesay on 10-19-2021 Potassium [Moles/Vol] 3.7 mmol/L 3.5-5.1 [facility] Serum or plasma sodium measu rement (moles/volume)Ordered By: Anders Sesay on 10-19-2021 Sodium [Moles/Vol] 137 mmol/L 136-146 [facility] Serum or plasma total biliru bin measurement (mass/volume)Ordered By: Anders Sesay on 10-19-2021 Bilirubin [Mass/Vol] 0.3 mg/dL 0.3-1.2 [facility] Serum or plasma total carbon dioxide measurement (moles/volume)Ordered By: Anders Sesay on 10-19-2021 CO2 [Moles/Vol] 24.2 mmol/L 22.0-30.0 [facility] Serum or plasma urea nitroge n measurement (mass/volume)Ordered By: Anders Sesay on 10-19-2021 Urea nitrogen [Mass/Vol] 7 mg/dL 9- [facility] Specific gravity Auto test s trip (U) [Rel density]Ordered By: Anders Sesay on 10-19-2021 Specific gravity (U) [Rel density] 1.014 1.001-1.030 [facility] Squamous epithelial cells de tection in urine sediment by light microscopyOrdered By: Anders Sesay on 10-19-2021 Epithelial cells.squamous LM Ql (Urine sed) 3-4 [HPF] [facility] Urine bacteria detection by automated methodOrdered By: Anders Sesay on 10-19-2021 Bacteria Auto Ql (U) 1+ None Seen [facility] Urine clarity by refractomet ry automatedOrdered By: Anedrs Sesay on 10-19-2021 Clarity Refractometry automated (U) Clear Clear [facility] Urine glucose measurement by automated test strip (mass/volume)Ordered By: Anders Sesay on 10-19-2021 Glucose Auto test strip (U) [Mass/Vol] Normal mg/dL Normal [facility] Urine hemoglobin detection b y automated test stripOrdered By: Anders Sesay on 10-19-2021 Hemoglobin Auto test strip Ql (U) Negative Negative [facility] Urine leukocyte esterase det ection by automated test stripOrdered By: Anders Sesay on 10-19-2021 Leukocyte esterase Auto test strip Ql (U) 1+ Negative [facility] Urobilinogen Auto test strip (U) [Mass/Vol]Ordered By: Anders Sesay on 10-19-2021 Urobilinogen (U) [Mass/Vol] Normal mg/dL Normal [facility] pH Auto test strip (U)Ordere d By: Anders Sesay on 10-19-2021 pH (U) 5.5 [pH] 5.0-9.0 [facility] US DUP ABD PEL RETRO SCROT L IMITEDon 07-14-2020 US DUP ABD PEL RETRO SCROT LIMITED ADDENDUM: Addendum is being made for additional history. Additional history is lower abdominal pain and vaginal bleeding. Electronically Signed by: RAGHAVENDRA FRAZIER on FriJul 14, 2020 2:00:56 PM EST EXAMINATION: PELVIC ULTRASOUND 07/07/2020 TECHNIQUE: Transvaginal pelvic ultrasound was performed. Color Doppler evaluation was performed. COMPARISON: None HISTORY: ORDERING SYSTEM PROVIDED HISTORY: R/O TORSION TECHNOLOGIST PROVIDED HISTORY: R/O TORSION FINDINGS: Measurements: Uterus: 8.3 x 5.6 x 3.7 cm Endometrial stripe: 4.9 mm Right Ovary: 2.6 x 2.2 x 2.2 cm Left Ovary: 2.3 x 2.1 x 1.3 cm Ultrasound Findings: Uterus: Uterus demonstrates normal myometrial echotexture. Endometrial stripe: Endometrial stripe is within normal limits. Right Ovary: Right ovary is within normal limits. Right ovary demonstrate normal arterial and venous flow. Left Ovary: Left ovary is within normal limits. Left ovary demonstrate normal arterial and venous flow. Free Fluid: No evidence of free fluid. IMPRESSION: Unremarkable pelvic ultrasound. No evidence of ovarian torsion is noted. Interpreted by: Raghavendra Frazier MD Signed by: Raghavendra Frazier MD 07/14/20 Edited Result - FINAL Normal [facility] US NON OB TRANSVAGINALon US NON OB TRANSVAGINAL ADDENDUM: Addendum is being made for additional history. Additional history is lower abdominal pain and vaginal bleeding. Electronically Signed by: RAGHAVENDRA FRAZIER on FriJul 14, 2020 2:00:55 PM EST EXAMINATION: PELVIC ULTRASOUND 07/07/2020 TECHNIQUE: Transvaginal pelvic ultrasound was performed. Color Doppler evaluation was performed. COMPARISON: None HISTORY: ORDERING SYSTEM PROVIDED HISTORY: R/O TORSION TECHNOLOGIST PROVIDED HISTORY: R/O TORSION FINDINGS: Measurements: Uterus: 8.3 x 5.6 x 3.7 cm Endometrial stripe: 4.9 mm Right Ovary: 2.6 x 2.2 x 2.2 cm Left Ovary: 2.3 x 2.1 x 1.3 cm Ultrasound Findings: Uterus: Uterus demonstrates normal myometrial echotexture. Endometrial stripe: Endometrial stripe is within normal limits. Right Ovary: Right ovary is within normal limits. Right ovary demonstrate normal arterial and venous flow. Left Ovary: Left ovary is within normal limits. Left ovary demonstrate normal arterial and venous flow. Free Fluid: No evidence of free fluid. IMPRESSION: Unremarkable pelvic ultrasound. No evidence of ovarian torsion is noted. Interpreted by: Raghavendra Frazier MD Signed by: Raghavendra Frazier MD 07/14/20 Edited Result - FINAL Normal [facility] Chlamydia/GC,DNA Ampon 07-10 Chlamydia Probe Negative Normal NEG [facility] Comment on above: Result Comment: CHLA MYDIA TRACHOMATIS DNA not detected by nucleic acid amplification. This test is intended for medical purposes only and is not valid for the evaluation of suspected sexual abuse or for other forensic purposes. In certain contexts, culture may be required to meet applicable laws and regulations for diagnosis of C. trachomatis and N. gonorrhoeae infections. Per 2014 CDC recommendations, this test does not include confirmation of positive results by an alternative nucleic acid target. Performed By: #### U HCG, UAMIC #### [facility] [address] [place] [id number] [employer] Roof[employer] Installer: Campos Avilez MD Gonorrhea Probe Negative Normal NEG [facility] Comment on above: Result Comment: NEIS SERIA GONORRHOEAE DNA not detected by nucleic acid amplification. This test is intended for medical purposes only and is not valid for the evaluation of suspected sexual abuse or for other forensic purposes. In certain contexts, culture may be required to meet applicable laws and regulations for diagnosis of C. trachomatis and N. gonorrhoeae infections. Per 2014 CDC recommendations, this test does not include confirmation of positive results by an alternative nucleic acid target. Performed By: #### U HCG, UAMIC #### [facility] [address] [place] [id number] [employer] Installer: Campos Avilez MD Cult,Urineon 07-09-2020 Cult,Urine Specimen Description .CLEAN CATCH URINE Special Requests NOT REPORTED Culture ESCHERICHIA COLI >[id number] CFU/ML Report Status FINAL 07/09/2020 SUSCEPTIBILITY Organism ESCHERICHIA COLI Method SILVIA Amikacin NOT REPORTED Ampicillin 4 SUSCEPTIBLE Ampicillin/Sulbactam NOT REPORTED Aztreonam <=1 SUSCEPTIBLE Cefazolin <=4 SUSCEPTIBLE Cefazolin sensitivity results can be used to predict the effectiveness of oral cephalosporins (eg. Cephalexin) in uncomplicated Urinary Tract Infections due to E. coli, K. pneumoniae, and P. mirabilis Cefepime NOT REPORTED Ceftriaxone <=1 SUSCEPTIBLE Ciprofloxacin <=0.25 SUSCEPTIBLE Ertapenem NOT REPORTED ESBL NEGATIVE Gentamicin <=1 SUSCEPTIBLE Meropenem NOT REPORTED Nitrofurantoin <=16 SUSCEPTIBLE Tigecycline NOT REPORTED Tobramycin <=1 SUSCEPTIBLE Trimethoprim/Sulfa <=20 SUSCEPTIBLE Piperacillin/Tazobac her <=4 SUSCEPTIBLE Normal [facility] Comment on above: Performed By: #### U HCG, UAMIC #### [place] [address] [employer] Installer: Campos Avilez MD ABO/Rh(D)on 07-08-2020 ABO/Rh(D) Positive Normal [facility] Comment on above: Performed By: #### A BRH #### [place] [address] [employer] Roof[employer] Installer: Campos Avilez MD CBC with Diffon 07-08-2020 Abs. Basophil 0.04 k/uL Normal 0.00-0.20 [facility] Comment on above: Performed By: #### C P, CDP, COSMO, BHCG, MG, VD25, LIP #### [facility] [address] [place], [place] [phone] [employer] Installer: Campos Avilez MD Abs.Imm.Granulocyte 0.04 k/uL Normal 0.00-0.30 [facility] Comment on above: Performed By: #### C P, CDP, COSMO, BHCG, MG, VD25, LIP #### [facility] [address] [place] [phone] [employer] Installer: Campos Avilez MD Abs.Neutrophil (Seg) 8.16 k/uL High 1.80-8.00 [facility] Comment on above: Performed By: #### C P, CDP, COSMO, BHCG, MG, VD25, LIP #### [place] [address] [employer] Installer: Campos Avilez MD Basophils/100 WBC (Bld) 0 % Normal 0-2 M [facility] Comment on above: Performed By: #### C P, CDP, COSMO, BHCG, MG, VD25, LIP #### [place] [address] [employer] Installer: Campos Avilez MD Eosinophils (Bld) [#/Vol] 0.10 10*3/uL Normal 0.00-0.44 [facility] Comment on above: Performed By: #### C P, CDP, COSMO, BHCG, MG, VD25, LIP #### [place] [address] [employer] Installer: Campos Avilez MD Eosinophils/100 WBC (Bld) 1 % Normal 1-4 [facility] Comment on above: Performed By: #### C P, CDP, COSMO, BHCG, MG, VD25, LIP #### [place] [address] [employer] Installer: Campos Avilez MD Erythrocyte distribution width (RBC) [Ratio] 14.0 % Normal 11.8-14.4 [facility] Comment on above: Performed By: #### C P, CDP, COSMO, BHCG, MG, VD25, LIP #### [place] [address] [employer] Installer: Campos Avilez MD Hematocrit (Bld) [Volume fraction] 34.3 % Low 36.3-47.1 [facility] Comment on above: Performed By: #### C P, CDP, COSMO, BHCG, MG, VD25, LIP #### [address] [place] [address] [employer] Installer: Campos Avilez MD Hemoglobin (Bld) [Mass/Vol] 11.1 g/dL Low 11.9-15.1 [facility] Comment on above: Performed By: #### C P, CDP, COSMO, BHCG, MG, VD25, LIP #### [address] [address] [employer] Installer: Campos Avilez MD Immature granulocytes (Bld) [#/Vol] 0 % Normal 0 [facility] Comment on above: Performed By: #### C P, CDP, COSMO, BHCG, MG, VD25, LIP #### [place] [address] [employer] Installer: Campos Avilez MD Lymphocytes (Bld) [#/Vol] 1.77 10*3/uL Normal 1.20-5.20 [facility] Comment on above: Performed By: #### C P, CDP, COSMO, BHCG, MG, VD25, LIP #### [place] [address] [employer] Installer: Campos Avilez MD Lymphocytes/100 WBC (Bld) 16 % Low 25-45 [facility] Comment on above: Performed By: #### C P, CDP, COSMO, BHCG, MG, VD25, LIP #### [place] [address] [employer] Installer: Campos Avilez MD MCH (RBC) [Entitic mass] 26.6 pg Normal 25.0-35.0 [facility] Comment on above: Performed By: #### C P, CDP, COSMO, BHCG, MG, VD25, LIP #### [address] [address] [employer] Installer: Campos Avilez MD MCHC (RBC) [Mass/Vol] 32.4 g/dL Normal 28.4-34.8 [facility] Comment on above: Performed By: #### C P, CDP, COSMO, BHCG, MG, VD25, LIP #### [address] [address] [employer] Installer: Campos Avilez MD MCV (RBC) [Entitic vol] 82.3 fL Normal 78.0-102.0 [facility] Comment on above: Performed By: #### C P, CDP, COSMO, BHCG, MG, VD25, LIP #### [place] [address] [employer] Installer: Campos Avilez MD Monocytes (Bld) [#/Vol] 0.73 10*3/uL Normal 0.10-1.40 [facility] Comment on above: Performed By: #### C P, CDP, COSMO, BHCG, MG, VD25, LIP #### [place] [address] [employer] Installer: Campos Avilez MD Monocytes/100 WBC (Bld) 7 % Normal 2-8 [facility] Comment on above: Performed By: #### C P, CDP, COSMO, BHCG, MG, VD25, LIP #### [place] [address] [employer] Installer: Campos Avilez MD Neutrophil (Seg) 75 % High 34-64 [facility] Comment on above: Performed By: #### C P, CDP, COSMO, BHCG, MG, VD25, LIP #### [place] [address] [employer] Installer: Campos Avilez MD NRBC Automated 0.0 per 100 WBC Normal 0.0 [facility] Comment on above: Performed By: #### C P, CDP, COSMO, BHCG, MG, VD25, LIP #### [address] [address] [employer] Installer: Campos Avilez MD Platelet mean volume (Bld) [Entitic vol] 11.8 fL Normal 8.1-13.5 [facility] Comment on above: Performed By: #### C P, CDP, COSMO, BHCG, MG, VD25, LIP #### [address] [address] [employer] Installer: Campos Avilez MD Platelets (Bld) [#/Vol] 288 10*3/uL Normal 138-453 [facility] Comment on above: Performed By: #### C P, CDP, COSMO, BHCG, MG, VD25, LIP #### [address] [address] [employer] Installer: Campos Avilez MD RBC (Bld) [#/Vol] 4.17 10*6/uL Normal 3.95-5.11 [facility] Comment on above: Performed By: #### C P, CDP, COSMO, BHCG, MG, VD25, LIP #### [address] [address] [employer] Installer: Campos Avilez MD WBC (Bld) [#/Vol] 10.8 10*3/uL Normal 4.5-13.5 [facility] Comment on above: Performed By: #### C P, CDP, COSMO, BHCG, MG, VD25, LIP #### [address] [address] [employer] Installer: Campos Avilez MD Auto Diff Performed NOT REPORTED Normal [facility] Comment on above: Performed By: #### C P, CDP, COSMO, BHCG, MG, VD25, LIP #### [address] [address] [employer] Installer: Campos Avilez MD Platelets (Bld) [#/Vol] NOT REPORTED Normal [facility] Comment on above: Performed By: #### C P, CDP, COSMO, BHCG, MG, VD25, LIP #### [facility] [address] [place] [phone] [employer] Installer: Campos Avilez MD RBC morphology finding Nom (Bld) NOT REPORTED Normal [facility] Comment on above: Performed By: #### C P, CDP, COSMO, BHCG, MG, VD25, LIP #### [facility] [address] [place] [address] [phone] [employer] Installer: Campos Avilez MD WBC Morphology NOT REPORTED Normal [facility] Comment on above: Performed By: #### C P, CDP, COSMO, BHCG, MG, VD25, LIP #### [address] [phone] [employer] Installer: Campos Avilez MD Calcium, Ionicon 07-08-2020 Calcium [Mass/Vol] 1.18 mmol/L Normal 1.13-1.33 [facility] Comment on above: Performed By: #### I OCAL #### [address] [address] [employer] Installer: Campos Avilez MD Calcium, Ionizedon Calcium [Mass/Vol] 1.18 mmol/L 1.13 - 1. 33 mmol/L [facility], [place] Comp Metabolic Profon 2020 (cont.) Normal [facility] Comment on above: Result Comment: Aver age GFR for <20 years old not available. Chronic Kidney Disease: <60 mL/min/1.73sq m Kidney failure: <15 mL/min/1.73sq m eGFR calculated using average adult body mass. Additional eGFR calculator available at: http://www.[employer].Picomize/multiple_crcl_2012.htm Performed By: #### C P, CDP, COSMO, BHCG, MG, VD25, LIP #### [address] [address] [employer] Installer: Campos Avilez MD Albumin [Mass/Vol] 2.3 g/dL Low 3.5-5.2 [facility] Comment on above: Performed By: #### C P, CDP, COSMO, BHCG, MG, VD25, LIP #### [address] [address] [employer] Installer: Campos Avilez MD Albumin/Globulin [Mass ratio] 0.9 {ratio} Low 1.0-2.5 [facility] Comment on above: Performed By: #### C P, CDP, COSMO, BHCG, MG, VD25, LIP #### [address] [address] [employer] Installer: Campos Avilez MD Alkaline Phos 41 U/L Normal 35-104 [facility] Comment on above: Result Comment: SPEC IMEN MODERATELY HEMOLYZED, RESULTS MAY BE ADVERSELY AFFECTED Performed By: #### C P, CDP, COSMO, BHCG, MG, VD25, LIP #### [address] [address] [employer] Installer: Campos Avilez MD ALT [Catalytic activity/Vol] 11 U/L Normal 5-33 [facility] Comment on above: Result Comment: SPEC IMEN MODERATELY HEMOLYZED, RESULTS MAY BE ADVERSELY AFFECTED Performed By: #### C P, CDP, COSMO, BHCG, MG, VD25, LIP #### [address] [address] [employer] Installer: Campos Avilez MD Anion gap [Moles/Vol] 9 mmol/L Normal 9-17 [facility] Comment on above: Performed By: #### C P, CDP, COSMO, BHCG, MG, VD25, LIP #### [address] [address] [employer] Installer: Campos Avilez MD AST [Catalytic activity/Vol] 28 U/L Normal <32 [facility] Comment on above: Result Comment: SPEC IMEN MODERATELY HEMOLYZED, RESULTS MAY BE ADVERSELY AFFECTED Performed By: #### C P, CDP, COSMO, BHCG, MG, VD25, LIP #### [address] [address] [employer] Installer: Campos Avilez MD Bilirubin Ql (U) <0.10 Low 0.3-1.2 [facility] Comment on above: Performed By: #### C P, CDP, COSMO, BHCG, MG, VD25, LIP #### [address] [address] [employer] Installer: Campos Avilez MD Calcium [Mass/Vol] 5.5 mg/dL Critically low 8.6-10.4 [facility] Comment on above: Performed By: #### C P, CDP, COSMO, BHCG, MG, VD25, LIP #### [address] [address] [employer] Installer: Campos Avilez MD Chloride [Moles/Vol] 118 mmol/L High 98-107 [facility] Comment on above: Performed By: #### C P, CDP, COSMO, BHCG, MG, VD25, LIP #### [address] [address] [employer] Installer: Campos Avilez MD CO2 [Moles/Vol] 14 mmol/L Low 20-31 [facility] Comment on above: Performed By: #### C P, CDP, COSMO, BHCG, MG, VD25, LIP #### [address] [address] [employer] Installer: Campos Avilez MD Creatinine [Mass/Vol] 0.60 mg/dL Normal 0.50-0.90 [facility] Comment on above: Performed By: #### C P, CDP, COSMO, BHCG, MG, VD25, LIP #### [address] [address] [employer] Installer: Campos Avilez MD GFR,non Amer Pediatric GFR requires additional information. Refer to NKDEP website for Normal >60 [facility] Comment on above: Result Comment: calc ulator. Performed By: #### C P, CDP, COSMO, BHCG, MG, VD25, LIP #### [address] [address] [employer] Installer: Campos Avilez MD Glucose [Mass/Vol] 84 mg/dL Normal 70-99 [facility] Comment on above: Performed By: #### C P, CDP, COSMO, BHCG, MG, VD25, LIP #### [address] [address] [employer] Installer: Campos Avilez MD Potassium [Moles/Vol] 5.1 mmol/L Normal 3.7-5.3 [facility] Comment on above: Result Comment: SPEC IMEN MODERATELY HEMOLYZED, RESULTS MAY BE ADVERSELY AFFECTED Performed By: #### C P, CDP, COSMO, BHCG, MG, VD25, LIP #### [address] [address] [employer] Installer: Campos Avilez MD Protein [Mass/Vol] 5.0 g/dL Low 6.4-8.3 [facility] Comment on above: Performed By: #### C P, CDP, COSMO, BHCG, MG, VD25, LIP #### [address] [address] [employer] Installer: Campos Avilez MD Sodium [Moles/Vol] 141 mmol/L Normal 135-144 [facility] Comment on above: Performed By: #### C P, CDP, COSMO, BHCG, MG, VD25, LIP #### [facility] [address] [place] [phone] [employer] Installer: Campos Avilez MD Urea nitrogen [Mass/Vol] 10 mg/dL Normal 6-20 [facility] Comment on above: Performed By: #### C P, CDP, COSMO, BHCG, MG, VD25, LIP #### [address] [address] [employer] Installer: Campos Avilez MD BUN/CRE Ratio NOT REPORTED Normal 9-20 [facility] Comment on above: Performed By: #### C P, CDP, COSMO, BHCG, MG, VD25, LIP #### [address] [address] [employer] Installer: Campos Avilez MD GFR, Amer NOT REPORTED Normal >60 [facility] Comment on above: Performed By: #### C P, CDP, COSMO, BHCG, MG, VD25, LIP #### [facility] [address] [place] [address] [employer] Installer: Campos Avilez MD Staging: NOT REPORTED Normal [facility] Comment on above: Performed By: #### C P, CDP, COSMO, BHCG, MG, VD25, LIP #### [address] [address] [employer] Installer: Campos Avilez MD HCG, ,Urineon 07-08 Beta HCG ( test) Ql (U) Negative Normal NEG [facility] Comment on above: Result Comment: Spec imens with hCG levels near the threshold of the test (25 mIU/mL) may give a negative or indeterminate result. In such cases, another test should be performed with a new specimen in 48-72 hours. If early is suspected clinically in this setting, correlation with quantitative serum b-hCG level is suggested. Performed By: #### U HCG, UAMIC #### [facility] [address] [place] [phone] [employer] Installer: Campos Avilez MD HCG, Quanton 07-08-2020 HCG, Quant <1 Normal <5 [facility] Comment on above: Result Comment: Non-preg premeno <=5 Postmeno <=8 Male <=3 If HCG results do not concur with clinical observations, additional testing to confirm results is recommended. Elevated results not associated with may be found in patients with other diseases such as tumors of the germ cells (testis, ovaries, etc.), bladder, pancreas, stomach, lungs, and liver. Performed By: #### C P, CDP, COSMO, BHCG, MG, VD25, LIP #### [facility] [address] [place] [phone] [employer] Installer: Campos Avilez MD Lipaseon 3 Lipase [Catalytic activity/Vol] 15 U/L Normal 13-60 [facility] Comment on above: Performed By: #### C P, CDP, COSMO, BHCG, MG, VD25, LIP #### [facility] [address] [place] [phone] [employer] Installer: Campos Avilez MD Magnesiumon 9 Magnesium [Mass/Vol] 1.2 mg/dL Low 1.7-2.2 [facility] Comment on above: Performed By: #### C P, CDP, COSMO, BHCG, MG, VD25, LIP #### [facility] [address] [place] [address] [phone] [employer] Installer: Campos Avilez MD Interpretation and review of laboratory results Abnormal [place], [place] Magnesium [Mass/Vol] 1.2 mg/dL Low 1.7 - 2 .2 mg/dL [place] Otheron 07-08-2020 Direct Exam Negative [place], [place] , URINEon 1 Beta HCG ( test) Ql (U) Negative NEGATIVE [place] Comment on above: Specimens with hCG l evels near the threshold of the test (25 mIU/mL) may give a negative or indeterminate result. In such cases, another test should be performed with a new specimen in 48-72 hours. If early is suspected clinically in this setting, correlation with quantitative serum b-hCG level is suggested. Phosphoruson 07-08-2020 Phosphate [Mass/Vol] 2.6 mg/dL 2.5 - 4 .8 mg/dL [place] Phosphorus, Inorg.on 021 Phosphorus, Inorg. 2.6 mg/dL Normal 2.5-4.8 [facility] Comment on above: Performed By: #### U HCG, UAMIC #### [facility] [address] [place] [address] [employer] Installer: Campos Avilez MD NON OB TRANSVAGINALon Elia, pn Incoming Radiant Results From [employer] - 07/08/2020 12:31 AM EST EXAMINATION: PELVIC ULTRASOUND 07/07/2020 TECHNIQUE: Transvaginal pelvic ultrasound was performed. Color Doppler evaluation was performed. COMPARISON: None HISTORY: ORDERING SYSTEM PROVIDED HISTORY: R/O TORSION TECHNOLOGIST PROVIDED HISTORY: R/O TORSION FINDINGS: Measurements: Uterus: 8.3 x 5.6 x 3.7 cm Endometrial stripe: 4.9 mm Right Ovary: 2.6 x 2.2 x 2.2 cm Left Ovary: 2.3 x 2.1 x 1.3 cm Ultrasound Findings: Uterus: Uterus demonstrates normal myometrial echotexture. Endometrial stripe: Endometrial stripe is within normal limits. Right Ovary: Right ovary is within normal limits. Right ovary demonstrate normal arterial and venous flow. Left Ovary: Left ovary is within normal limits. Left ovary demonstrate normal arterial and venous flow. Free Fluid: No evidence of free fluid. IMPRESSION: Unremarkable pelvic ultrasound. No evidence of ovarian torsion is noted. [place], [place] Unremarkable pelvic ultrasound. No evidence of ovarian torsion is noted. [place] EXAMINATION: PELVIC ULTRASOUND 07/07/2020 TECHNIQUE: Transvaginal pelvic ultrasound was performed. Color Doppler evaluation was performed. COMPARISON: None HISTORY: ORDERING SYSTEM PROVIDED HISTORY: R/O TORSION TECHNOLOGIST PROVIDED HISTORY: R/O TORSION FINDINGS: Measurements: Uterus: 8.3 x 5.6 x 3.7 cm Endometrial stripe: 4.9 mm Right Ovary: 2.6 x 2.2 x 2.2 cm Left Ovary: 2.3 x 2.1 x 1.3 cm Ultrasound Findings: Uterus: Uterus demonstrates normal myometrial echotexture. Endometrial stripe: Endometrial stripe is within normal limits. Right Ovary: Right ovary is within normal limits. Right ovary demonstrate normal arterial and venous flow. Left Ovary: Left ovary is within normal limits. Left ovary demonstrate normal arterial and venous flow. Free Fluid: No evidence of free fluid. [facility] [place], [place] Urinalysis w/ Microon 2020 ----- Normal [facility] Comment on above: Performed By: #### U HCG, UAMIC #### [address] [address] [employer] Installer: Campos Avilez MD Acetoacetic Acid,Ur Negative Normal NEG [facility] Comment on above: Performed By: #### U HCG, UAMIC #### [address] [address] [employer] Installer: Campos Avilez MD Bacteria LM.HPF (Urine sed) [#/Area] MANY Abnormal NONE [facility] Comment on above: Performed By: #### U HCG, UAMIC #### [address] [address] [employer] Installer: Campos Avilez MD Bilirubin, SemiQt,Ur Negative Normal NEG [facility] Comment on above: Performed By: #### U HCG, UAMIC #### [address] [address] [employer] Installer: Campos Avilez MD Color (U) ORANGE Abnormal YEL [facility] Comment on above: Result Comment: INTE RPRET WITH CAUTION DUE TO INTENSE COLOR OF URINE. Performed By: #### U HCG, UAMIC #### [address] [address] [employer] Installer: Campos Avilez MD Epithelial cells LM.HPF (Urine sed) [#/Area] 0 TO 2 Normal 0-5 [facility] Comment on above: Performed By: #### U HCG, UAMIC #### [address] [address] [employer] Installer: Campos Avilez MD Glucose Ql (U) Negative Normal NEG [facility] Comment on above: Performed By: #### U HCG, UAMIC #### [address] [address] [employer] Installer: Campos Avilez MD Hemoglobin, Ur LARGE Abnormal NEG [facility] Comment on above: Performed By: #### U HCG, UAMIC #### [address] [address] [employer] Installer: Campos Avilez MD Leukocyte esterase Test strip Ql (U) MODERATE Abnormal NEG [facility] Comment on above: Performed By: #### U HCG, UAMIC #### [address] [address] [employer] Installer: Campos Avilez MD Nitrite,Ur Positive Abnormal NEG [facility] Comment on above: Performed By: #### U HCG, UAMIC #### [address] [address] [employer] Installer: Campos Avilez MD pH (U) 5.5 [pH] Normal 5.0-8.0 [facility] Comment on above: Performed By: #### U HCG, UAMIC #### [address] [address] [employer] Installer: Campos Avilez MD Protein Ql (U) 2+ Abnormal NEG [facility] Comment on above: Performed By: #### U HCG, UAMIC #### [address] [address] [employer] Installer: Campos Avilez MD RBC (U) [#/Vol] 50 TO 100 Normal 0-4 [facility] Comment on above: Result Comment: Refe rence range defined for non-centrifuged specimen. Performed By: #### U HCG, UAMIC #### [address] [address] [employer] Installer: Campos Avilez MD Specific gravity (U) [Rel density] 1.021 Normal 1.005-1.030 [facility] Comment on above: Performed By: #### U HCG, UAMIC #### [address] [address] [employer] Installer: Campos Avilez MD Turbidity TURBID Abnormal CLEAR [facility] Comment on above: Performed By: #### U HCG, UAMIC #### [address] [address] [employer] Installer: Campos Avilez MD Urobilinogen,Ur Normal Normal NORM [facility] Comment on above: Performed By: #### U HCG, UAMIC #### [address] [address] [employer] Installer: Campos Avilez MD WBC (U) [#/Vol] TOO NUMEROUS TO COUNT Normal 0-5 [facility] Comment on above: Performed By: #### U HCG, UAMIC #### [address] [address] [employer] Installer: Campos Avilez MD Amorphous sediment LM Ql (Urine sed) NOT REPORTED Normal NONE [facility] Comment on above: Performed By: #### U HCG, UAMIC #### [address] [address] [employer] Installer: Campos Avilez MD Casts LM.LPF (Urine sed) [#/Area] NOT REPORTED Normal 0-8 [facility] Comment on above: Performed By: #### U HCG, UAMIC #### [address] [address] [employer] Installer: Campos Avilez MD Crystals LM Nom (Urine sed) NOT REPORTED Normal NONE [facility] Comment on above: Performed By: #### U HCG, UAMIC #### [facility] [address] [place] [address] [employer] Installer: Campos Avilez MD Epithelial, Renal NOT REPORTED Normal 0 [facility] Comment on above: Performed By: #### U HCG, UAMIC #### [facility] [address] [place] [address] [employer] Installer: Campos Avilez MD Mucus Strands NOT REPORTED Normal [facility] Comment on above: Performed By: #### U HCG, UAMIC #### [address] [address] [employer] Installer: Campos Avilez MD Other Observations NOT REPORTED Normal NREQ [facility] Comment on above: Performed By: #### U HCG, UAMIC #### [facility] [address] [place] [address] [employer] Installer: Campos Avilez MD Trichomonas NOT REPORTED Normal [facility] Comment on above: Performed By: #### U HCG, UAMIC #### [address] [address] [employer] Installer: Campos Avilez MD Yeast LM Ql (Urine sed) NOT REPORTED Normal [facility] Comment on above: Performed By: #### U HCG, UAMIC #### [facility] [address] [place] [phone] [employer] Installer: Campos Avilez MD Urinalysis with microscopico n 07-08-2020 Amorphous, UA NOT REPORTED None [facility] [place] [place] Bacteria, UA MANY Abnormal None [facility] [place], [place] Bilirubin Urine Negative NEGATIVE [facility] [place], [place] Casts UA NOT REPORTED [facility] [place], [place] Color, UA ORANGE Abnormal YELLOW [place] Comment on above: INTERPRET WITH CAUTI ON DUE TO INTENSE COLOR OF URINE. Crystals, UA NOT REPORTED None /HPF [place] Epithelial Cells UA 0 TO 2 [place] Glucose, Ur Negative NEGATIVE [place] Interpretation and review of laboratory results Abnormal [place] Ketones Ql (U) Negative NEGATIVE [place] Leukocyte esterase Test strip Ql (U) MODERATE Abnormal NEGATIVE [place] Mucus, UA NOT REPORTED None [place], [place] Nitrite, Urine Positive Abnormal NEGATIVE [place] Other Observations UA NOT REPORTED NOT REQ. M [place], [place] pH, UA 5.5 [place] Protein (U) [Mass/Vol] 2+ Abnormal NEGATIVE [place], [place] RBC (U) [#/Vol] 50 TO 100 [place], [place] Comment on above: Reference range defi sonia for non-centrifuged specimen. Renal Epithelial, UA NOT REPORTED 0 /HPF [place], [place] Specific [place], UA 1.021 [place], [place] Trichomonas, UA NOT REPORTED None [place] Turbidity UA TURBID Abnormal CLEAR [place] Urine Hgb LARGE Abnormal NEGATIVE [place] Urobilinogen, Urine Normal Normal [place] WBC, UA TOO NUMEROUS TO COUNT [place] Yeast, UA NOT REPORTED None [place], [place] - [place] VAGINITIS DNA PROBEon 2020 Direct Exam Positive Abnormal [place] Direct Exam Method of testing is a DNA probe intended for detection and identification of Samantha species, Gardnerella vaginalis, and Trichomonas vaginalis nucleic acid in vaginal fluid specimens from patients with symptoms of vaginitis/vaginosis. [place] Interpretation and review of laboratory results Abnormal [place] Special Requests NOT REPORTED [place] Specimen Description .VAGINA [place] Vaginitis DNA Probeon 2020 Vaginitis DNA Probe Specimen Description .VAGINA Special Requests NOT REPORTED Direct Exam POSITIVE for Gardnerella vaginalis. NEGATIVE for Samantha sp. NEGATIVE for Trichomonas vaginalis Method of testing is a DNA probe intended for detection and identification of Samantha species, Gardnerella vaginalis, and Trichomonas vaginalis nucleic acid in vaginal fluid specimens from patients with symptoms of vaginitis/vaginosis. Report Status FINAL 07/08/2020 Normal [facility] Comment on above: Performed By: #### U HCG, UAMIC #### [employer] [address], [place] [id number] Cool Roofing Installer: Campos Avilez MD Vitamin D 25 Hydroxyon 07-08 Interpretation and review of laboratory results Abnormal [place], [place] Vit D, 25-Hydroxy 12.1 ng/mL Low 30 - 100 ng/mL [place] Comment on above: Reference Range: Vitamin D status Range Deficiency <20 ng/mL Mild Deficiency 20-30 ng/mL Sufficiency 30-100 ng/mL Toxicity >100 ng/mL Vitamin D 25 OHon 07-08-2020 Vitamin D 25 OH 12.1 ng/mL Low 30.0-100.0 [facility] Comment on above: Result Comment: Reference Range: Vitamin D status Range Deficiency <20 ng/mL Mild Deficiency 20-30 ng/mL Sufficiency 30-100 ng/mL Toxicity >100 ng/mL Performed By: #### U HCG, UAMIC #### [facility] [address] [place] [address] [id number] [employer] Ro[employer] Installer: Campos Avilez MD ABO/RHon 07-07-2020 ABO/Rh Positive [place], [place] CBC WITH AUTO DIFFERENTIALon 07-07-2020 Basophils (Bld) [#/Vol] 0.04 10*3/uL [place] Basophils/100 WBC (Bld) 0 % 0 - 2 % [place], [place] Differential Type NOT REPORTED [place] Eosinophils (Bld) [#/Vol] 0.10 10*3/uL [place] Eosinophils/100 WBC (Bld) 1 % 1 - 4 % [place] Erythrocyte distribution width (RBC) [Ratio] 14.0 % 11.8 - 14.4 % [place] Hematocrit (Bld) [Volume fraction] 34.3 % Low 36.3 - 47.1 % [place] Hemoglobin (Bld) [Mass/Vol] 11.1 g/dL Low 11.9 - 15.1 g/dL [place] Immature granulocytes (Bld) [#/Vol] 0 % 0 [place] Immature granulocytes (Bld) [#/Vol] 0.04 10*3/uL [place] Interpretation and review of laboratory results Abnormal [place] Lymphocytes (Bld) [#/Vol] 1.77 10*3/uL [place] Lymphocytes/100 WBC (Bld) 16 % Low 25 - 45 % [place] MCH (RBC) [Entitic mass] 26.6 pg 25 - 35 pg [place] MCHC (RBC) [Mass/Vol] 32.4 g/dL 28.4 - 34.8 g/dL [place] MCV (RBC) [Entitic vol] 82.3 fL 78 - 102 fL [place] Monocytes (Bld) [#/Vol] 0.73 10*3/uL [place] Monocytes/100 WBC (Bld) 7 % 2 - 8 % [place] Platelet mean volume (Bld) [Entitic vol] 11.8 fL 8.1 - 13.5 fL [place] Platelets (Bld) [#/Vol] NOT REPORTED [place] Platelets (Bld) [#/Vol] 288 10*3/uL [place] RBC (Bld) [#/Vol] 4.17 10*6/uL 3.95 - 5.1 1 m/uL [place] RBC morphology finding Nom (Bld) NOT REPORTED [place] Segmented neutrophils/100 WBC (Bld) 75 % High 34 - 64 % [place] Segs Absolute 8.16 High [place] WBC (Bld) [#/Vol] 0.0 10*3/uL 0.0 per 10 0 WBC [place] WBC (Bld) [#/Vol] 10.8 10*3/uL [place] WBC Morphology NOT REPORTED [place] COMPREHENSIVE METABOLIC PANE Mikie 07-07-2020 Albumin [Mass/Vol] 2.3 g/dL Low 3.5 - 5.2 g/dL [place] Albumin/Globulin [Mass ratio] 0.9 {ratio} Low [place] ALP [Catalytic activity/Vol] 41 U/L 35 - 104 U/L [place] Comment on above: SPECIMEN MODERATELY HEMOLYZED, RESULTS MAY BE ADVERSELY AFFECTED ALT [Catalytic activity/Vol] 11 U/L 5 - 33 U/L [place] Comment on above: SPECIMEN MODERATELY HEMOLYZED, RESULTS MAY BE ADVERSELY AFFECTED Anion gap [Moles/Vol] 9 mmol/L 9 - 17 mmol/L [place] AST [Catalytic activity/Vol] 28 U/L <32 [place] Comment on above: SPECIMEN MODERATELY HEMOLYZED, RESULTS MAY BE ADVERSELY AFFECTED Bilirubin Ql (U) <0.10 Low 0.3 - 1.2 mg/dL [place] Bun/Cre Ratio NOT REPORTED [place] Calcium [Mass/Vol] 5.5 mg/dL Critically low 8.6 - 1 0.4 mg/dL [place] Chloride [Moles/Vol] 118 mmol/L High 98 - 10 7 mmol/L [place] CO2 [Moles/Vol] 14 mmol/L Low 20 - 31 mmol/L [place] Creatinine [Mass/Vol] 0.6 mg/dL 0.5 - 0.9 mg/dL [place] GFR NOT REPORTED >60 mL/min [place] GFR Non- Pediatric GFR requires additional information. Refer to NKDEP website for calculator. >60 mL/min [place] GFR/1.73 sq M predicted among non-blacks MDRD (S/P/Bld) [Vol rate/Area] NOT REPORTED [place] GFR/1.73 sq M predicted among non-blacks MDRD (S/P/Bld) [Vol rate/Area] [place] Comment on above: Average GFR for <20 years old not available. Chronic Kidney Disease: <60 mL/min/1.73sq m Kidney failure: <15 mL/min/1.73sq m eGFR calculated using average adult body mass. Additional eGFR calculator available at: http://www.NuMedii/multiple_crcl_2012.htm Glucose [Mass/Vol] 84 mg/dL 70 - 99 mg/dL [place] Interpretation and review of laboratory results Abnormal [place] Potassium [Moles/Vol] 5.1 mmol/L 3.7 - 5.3 mmol/L [place] Comment on above: SPECIMEN MODERATELY HEMOLYZED, RESULTS MAY BE ADVERSELY AFFECTED Protein [Mass/Vol] 5.0 g/dL Low 6.4 - 8.3 g/dL [place] Sodium [Moles/Vol] 141 mmol/L 135 - 144 mmol/L [place] Urea nitrogen [Mass/Vol] 10 mg/dL 6 - 20 mg/dL [place] HCG, QUANTITATIVE, on 07-07-2020 hCG Quant <1 <5 IU/L [place] Comment on above: Non-preg premeno <=5 Postmeno <=8 Male <=3 If HCG results do not concur with clinical observations, additional testing to confirm results is recommended. Elevated results not associated with may be found in patients with other diseases such as tumors of the germ cells (testis, ovaries, etc.), bladder, pancreas, stomach, lungs, and liver. LIPASEon 07-07-2020 Lipase [Catalytic activity/Vol] 15 U/L 13 - 60 U/L [place] Vital Signs Date Time Vital Sign Value Performing Clinician Facility 10-19-2021 01:12040 Diastolic blood pressure 62 mm[Hg] PHYSICIAN NO [facility] 10-19-2021 01:120400 Heart rate 89 /min PHYSICIAN NO [facility] 10-19-2021 01:12 Respiratory rate 18 /min PHYSICIAN NO [facility] 10-19-2021 01:12-0400 SaO2% (BldA) [Mass fraction] 100 % PHYSICIAN NO [facility] 10-19-2021 01:12-0400 Systolic blood pressure 130 mm[Hg] PHYSICIAN NO [facility] 10-18-2021 23:10-0400 Body height 167.64 cm PHYSICIAN NO [facility] 10-18-2021 23:10-0400 Body mass index (BMI) [Percentile] Per age and sex 99.1 % PHYSICIAN NO [facility] 10-18-2021 23:10-0400 Body mass index (BMI) [Ratio] 48.2 kg/m2 PHYSICIAN [facility] 10-18-2021 23:10-0400 Body weight 135.5 kg PHYSICIAN NO [facility] 10-18-2021 23:08-0400 Body temperature 98.4 [degF] PHYSICIAN NO [facility] 07-07-2020 21:51-0500 BMI (Body Mass Index) 42.93 kg/m2 Lisa Almanza [facility] 07-07-2020 21:51-0500 Body weight 120.66 kg Lisa Ellis [facility] , [place] 07-07-2020 21:51-0500 BP Diastolic 85 mm[Hg] Lisa Land [facility] , [place] 07-07-2020 21:51-0500 BP Systolic 136 mm[Hg] Lisa Land [place] 07-07-2020 21:51-0500 Height 167.6 cm Lisa Land [place] 07-07-2020 21:51-0500 Pulse (Heart Rate) 93 /min Lisa Land [place], [place] 07-07-2020 21:51-0500 Pulse Oximetry 97 % Lisa Ellis [place] 07-07-2020 21:51-0500 Respiratory Rate 18 /min Lisa Ellis [place] 07-07-2020 21:48-0500 Body Temperature 97.11 [degF] Lisa Land [place] Encounters Encounter Date Encounter Type Care Provider Facility Start: 08-30-2022 End: 08-30-[address] COLT TAYLOR . Facility:[facility] Start: 06-28-2022 End: 06-28-[address] COLT TAYLOR . Facility:[facility] Start: 04-01-2022 End: 04-02-[address] DELON NAJERA . Facility:[facility] Start: 10-19-2021 End: 10-19-2021 Emergency department patient visit PHYSICIAN NO FAMILY Facility:[facility] Start: 10-18-2021 End: 10-19-2021 Emergency department patient visit PHYSICIAN NO FAMILY [facility] Start: 07-07-2020 End: 07-08-2020 Emergency department patient visit DAVID AQUINO [facility] Start: 07-07-2020 End: 07-08-2020 Emergency department patient visit Lisa Land Work Phone: [facility] ED Comment on above: BV (bacterial vagino sis) (Primary Dx); Vaginal bleeding; Hypomagnesemia; Vitamin D deficiency; Acute cystitis with hematuria Procedures Date Procedure Procedure Detail Performing Clinician Start: 10-19-2021 Mycology culture PHYSIC EDDI NO FAMILY Start: 10-19-2021 Trichomonas vaginali s detection PHYSICIAN NO FAMILY Start: 10-19-2021 Mycology culture PHYSIC EDDI NO FAMILY Start: 10-19-2021 Trichomonas vaginali s detection PHYSICIAN NO FAMILY Start: 07-08-2020 Calcium ionized Angela Land Work Phone: Start: 07-08-2020 transvaginal Taylor Stoner Work Phone: Start: 07-07-2020 Iadna samantha specie s direct probe tq Brenda Stoner Work Phone: Start: 07-07-2020 Urine test visual color cmprsn meths Brenda Stoner Work Phone: Start: 07-07-2020 Urnls dip stick/tabl et reagent auto microscopy Brenda Stoner Work Phone: Start: 07-07-2020 Blood typing serologic abo Brenda Stoner Work Phone: Start: 07-07-2020 25 hydroxy includes fractions if performed Brenda Stoner Work Phone: Start: 07-07-2020 Assay of lipase Angelin e Ida Stoner Work Phone: Start: 07-07-2020 Assay of magnesium [facility] Stoner Work Phone: Start: 07-07-2020 Assay of phosphorus inorganic Brenda Stoner Work Phone: Start: 07-07-2020 Blood count complete auto&auto difrntl wbc Brenda Stoner Work Phone: Start: 07-07-2020 Comprehensive metabo lic panel Brenda Stoner Work Phone: Start: 07-07-2020 Gonadotropin chorion ic quantitative Brenda Stoner Work Phone: Plan of Treatment Date Care Activity Detail Author Start: 02-01-2020 Influenza vaccination Flu vaccine (# 1) [place], [place] Start: 2018 Meningococcal (ACWY) vaccine (1 - 2-dose series) Meningococcal (ACWY) vaccine (1 - 2-dose series) [place] Start: 2018 Screening for Chlamy nancy trachomatis Chlamydia screen [place] Start: 2017 HIV screening HIV screen [place] Start: 2013 HPV vaccine (1 - 2-d ose series) HPV vaccine (1 - 2-dose series) [place] Start: 2009 DTaP/Tdap/Td vaccine (1 - Tdap) DTaP/Tdap/Td vaccine (1 - Tdap) [place] Start: 2003 Hepatitis A vaccine (1 of 2 - 2-dose series) Hepatitis A vaccine (1 of 2 - 2-dose series) [place] Start: 2003 Measles,Mumps,Rubell a (MMR) vaccine (1 of 2 - Standard series) Measles,Mumps,Rubella (MMR) vaccine (1 of 2 - Standard series) [place] Start: 2003 Varicella vaccine (1 of 2 - 2-dose childhood series) Varicella vaccine (1 of 2 - 2-dose childhood series) [place] Start: 2002 Hepatitis B vaccine (1 of 3 - 3-dose primary series) Hepatitis B vaccine (1 of 3 - 3-dose primary series) [place] Start: 2002 Hepatitis C screening Hepatitis C sc reen [place] End: 07-07-2020 C.trachomatis N.gonorrhoeae DNA C.trachomatis N.gonorrhoeae DNA Microbiology STAT One Time for 1 Occurrences starting 07/07/2020 until 07/07/2020 [place] Comment on above: One Time for 1 Occur rences starting 07/07/2020 until 07/07/2020 C.trachomatis N.gonorrhoeae DNA C.trachomatis N.gonorrhoeae DNA Microbiology Stat [employer] Label print 07/07/2020 11:20 PM EST [place] End: 07-08-2020 Calcium, Ionized Calcium, Ionized Lab STAT One Time for 1 Occurrences starting 07/08/2020 until 07/08/2020 [place] Comment on above: One Time for 1 Occur rences starting 07/08/2020 until 07/08/2020 End: 07-07-2020 Culture, Urine Culture, Urine Microbiology STAT One Time for 1 Occurrences starting 07/07/2020 until 07/07/2020 [place] Comment on above: One Time for 1 Occur rences starting 07/07/2020 until 07/07/2020 Culture, Urine Culture, Urine Microbiology Stat [employer] Label print 07/07/2020 10:56 PM EST [place] Patient Education Common Breast Problems Pelvic Pain ED [facility] Work Phone: Patient referral [facility] Work Phone: End: 07-07-2020 US DUP ABD PEL RETRO SCROT LIMITED US DUP ABD PEL RETRO SCROT LIMITED Imaging STAT Once for 1 Occurrences starting 07/07/2020 until 07/07/2020 [place] Comment on above: Once for 1 Occurrenc es starting 07/07/2020 until 07/07/2020 US DUP ABD PEL RETRO SCROT LIMITED US DUP ABD PEL RETRO SCROT LIMITED Imaging STAT 07/08/2020 12:13 AM EST [place] Payers Date Payer Category Payer Self-pay [id number] 2002 Unknown [id number] 2002 Unknown [id number] 2002 Unknown [id number] 1957 Medicaid [id number] 1957 Unknown [id number] Unknown [id number] Social History Date Type Detail Facility Start: 07-07-2020 Tobacco smoking stat [facility] Never smoker [place] Start: 07-07-2020 Tobacco use and exposure Never used [place] Sex Assigned At Not on file [place] Exposure to SARS-CoV -2 (event) Not sure [place] Start: 10-19-2021 Tobacco smoking stat [facility] Smoker (finding) [facility] Start: 2002 Sex Assigned At Female F [facility] Evaluation note Note Date & Type Note Facility Evaluation note No assessment information availa ble [facility] Work Phone: Hospital Discharge instructions Note Date & Type Note Facility Hospital Discharge instructions Additional Instructions Please follow up as we discussed so you can have your concerns further evaluated. [facility] Work Phone: Discharge Instructions * Instructions* Brenda Stoner DO - 07/08/2020 [facility] ED Clinic List Healthcare Providers Services Day of Week/ Hours [facility] [address] Pediatric Primary Care Adult Primary Care INVESTIGATOR FRAUD//Specialty Clinics Friday 8:00a 4:30p [address] Adult Medicine, Pediatrics, INVESTIGATOR FRAUD Friday 8:30a 4:30p [facility] Surgery [address] [facility] Friday 8:30a 11:00a [facility] [address] [facility] Adult Internal Medicine ([facility]) INVESTIGATOR FRAUD Clinic Pediatric Clinic Friday, Friday, , Friday 8:00a 4:30p Friday 1:00p 4:30p Friday, Friday, 8:00a 5:00p; Friday 8:00a 12:30p Friday 1p 4p Friday, Friday, , Friday 8:30a 4:15p Friday 12:30p 4:15p [address] Pediatric Primary Care Adult Primary Care OB/ Friday, Friday 8a 12p 8a 4:45p [facility] [address] [place] [address] [place] [address] # Pre & Post Adoption Counseling Support / nutrition Care Reward Incentive Program [facility] Fri, , Fri, Fri 10:00a 4:30p Thur 10:00a 7:30p E Gomez Location Friday - Friday 10a 4:30p [facility] INVESTIGATOR FRAUD [address] Adult Internal Medicine [address] [facility] Pediatrics [address] [facility], [address] Neuro / Headache [address] Friday 8:30a 5p [facility] Practice [address] [facility] Family Practice Fri, , , Fri 9:00a 4:30p Wed 1:00p 4:30p [facility] Practice [address] [facility] [address] Family Practice Friday 8:30a 5:00p [facility] [address] [facility] [address] Burn/Plastic, ENT, GI, Orthopedics, Surgical / Trauma, Urology, Vascular Friday 8:00 4:30p Call for an appointment [facility] [address] [facility] Adult Medicine, Eye Clinic, Dental Patient must be certified homeless Under age 18 not accepted Friday 8:00 4:30p [facility] [address] [facility] Practice OB Friday, Friday, Friday, Friday 9a 5p 9a 6p Friday (OB only) [facility] [address] [facility] OB/ Friday 11a 7p , Fri, 9a 5p Friday 8a 4p 1st Friday 9a 1p Podiatry Clinic [address] [facility] [address] Friday 8:00 4:[address] Free nurse visits [place] programs Counseling Class Call or walk in [facility] [address] Various Clinics 8a 5:30p [facility] Family [facility] [address] [facility], [address] Family Practice Friday 8a 4:30p [facility] [address] [place] [address] [id number] [address] [place] [address] Friday 8a 4:30p Friday 8a 4:30p 8a 8p Outpatient Clinics [facility] [address] [facility] Friday 9a 5p Diabetic Education Services Call for an appointment [facility] [address] [facility] Friday 8:30a 4p Dental Services [facility] [address] [facility] Must have source of income and must bring (2) recent check stubs to appointment By appointment only [facility] [address] Patient must be homeless, call for eligibility guidelines. Under age 18 NOT accepted Days and hours vary (Doors open at 8:30a day of week varies) Call for an appointment Miscellaneous Information [facility] Call for Help [phone] Call for an appointment H.E.L.P (Hospital Eligibility Link Program) toll free For financial assistance * Attachments The following attachments cannot be sent through Care Everywhere. * Bacterial Vaginosis (Hungarian) * UTI (Urinary Tract Infection): Female (Hungarian) * Vitamin D: General Info (Hungarian) documented in this encounter Assessments Diagnosis BV (bacterial vaginosis)- Primary Vaginitis and vulvovaginitis, unspecified Vaginal bleeding Other specified noninflammatory disorder of vagina Hypomagnesemia Disorders of magnesium metabolism Vitamin D deficiency Unspecified vitamin D deficiency Acute cystitis with hematuria Acute cystitis Summary Purpose Family History No Family History Records FoundNo Family History Records FoundNo Family History Records Found Advance Directives No Advanced Directives Records Found Advance Directive Response Recorded Date/ Time Advance Directives No June 27, 2020 3:12am Chief Complaint and Reason for Visit Chief Complaint abd pain, headache/f ever Additional Source Comments Reason for Visit (unrecogniz ed section and content) Reason Comments Vaginal Bleeding Pt states took preg test two days ago positive home test had been spotting, now today heavier bleeding Ordered Prescriptions (unrec ognized section and content) Prescription Sig Dispensed Refills Start Date End Da te cephALEXin (KEFLEX) 500 MG capsule Take 1 capsule by mouth 2 times daily for 10 days 20 capsule 0 07/08/2020 07/18/2020 Vitamin D, Cholecalciferol, 50 MCG (1999 UT) CAPS Take 2,000 Units by mouth daily 30 capsule 0 07/08/2020 metroNIDAZOLE (FLAGYL) 500 MG tablet Take 1 tablet by mouth 2 times daily for 10 days 20 tablet 0 07/08/2020 07/18/2020 INFORMATION SOURCE (unrecogn ized section and content) DATE CREATED AUTHOR 07/16/2020 [facility] DATE CREATED AUTHOR AUTHOR'S ORGANIZ ATION 09/07/2022 [facility] DATE CREATED AUTHOR AUTHOR'S ORGANIZ ATION 03/13/2023 [facility] Care Teams (unrecognized sec tion and content) Team Status: Inactive Member Role Status Dates PHYSICIAN NO FAMILY Primary Care Provider Active Anders Sesay Jr, MD Emergency Provider Active Team Status: Active Member Role Status Dates PHYSICIAN NO FAMILY Primary Care Provider Active Goals (unrecognized section and content) Goals may be documented in a n alternate section FOR RECORDS PERTAINING TO PATIENTS WHO ARE OR HAVE BEEN ENROLLED IN A CHEMICAL DEPENDENCY/SUBSTANCEABUSE PROGRAM, SOME INFORMATION MAY BE OMITTED. This clinical summary was aggregated from multiple sources. Caution should be exercised in using it in the provision of clinical care. This summary normalizes information from multiple sources, and as a consequence, information in this document may materially change the coding, format and clinical context of patient data. In addition, data may be omitted in some cases. CLINICAL DECISIONS SHOULD BE BASED ON THE PRIMARY CLINICAL RECORDS. [employer] provides no warranty or guarantee of the accuracy or completeness of information in this document.
== END 2023-07-03 12:38 | disposition home or self-care (01) ==
LOC: NOMS 12:37
PROVIDERS: Visit Provider Obstetrics & Gynecology
DX: Z34.91 Encounter for supervision of normal pregnancy, unspecified, first trimester (principal); Z3A.01 Less than 8 weeks gestation of pregnancy; N92.6 Irregular menstruation, unspecified
CPT/HCPCS: 76817

== ENCOUNTER 2023-07-08 12:08 | Outpatient (OUT) | payer BC, SELFPAY ==
--- OUTSIDE RECORDS SUMMARY | 2023-07-08 12:13 | XMS_ITS | CCD ---
Demographics Address [address] [place] [address] Preferred Language en Marital Status Single Latter-Day Affiliation Unknown Race Unknown Ethnic Group Not or Lati no Author Name Unknown Address [address] [place] [address] Organization [facility] Care Team Providers Care Transport Aide Name Role Phone Unavailable Primary Care Provider DAVID Desir Attending Unavailable NO FAMILY, PHYSICIAN Primary Care Provider Unava MD Anders Tse Jr Emergency Provider PAY ., DR GREGORY Admitting Unavailable PAY ., DR GREGORY Consulting Unavailable REQUEST, DR IBRAHIM LISTED Primary Care Unavaila ble PAY ., DR GREGORY Attending Unavailable SEKOULISA BOWMANLDEEP Consulting Unavailable PAY ., DR GREGORY Attending Unavailable PAY ., DR GREGORY Admitting Unavailable GRECHNY ., AMAYA FRANCISCO Consulting Unavailsaadia barnes REQUEST, DR IBRAHIM LISTED Primary Care Unavaila ble MARKER ., DR JERNIGAN Attending Unavailable MARKER ., DR JERNIGAN Admitting Unavailable MISC, DR VAN Primary Care Unavailable MARKER ., DR JERNIGAN Consulting Unavailable HILARIA, LUH Consulting Unavailable NO FAMILY, PHYSICIAN Primary Care Unavailable Anders Sesay Jr Attending Unavailable Anders Sesay Jr Admitting Unavailable Unavailable Primary Care Provider Unavailsaadia barnes Allergies Allergy Classification Reported Allergen(s) Allergy Type Date of Onset Reaction(s) Facility (1 source) Latex Propensity to adverse reactions to drug 07-07-2020 [facility], [place] Medications Current Medications Medication Drug Class(es) Dates [...] days 20 tablet 0 07/08/2020 07/18/2020 Active ondansetron 4 mg oral tablet (1 source) Serotonin-3 Receptor Antagonist Start: 07-03-2023 End: 07-13-2023 take 1 tablet by mouth every six hours for nausea ondansetron (Zofran) 4 MG tablet Indications: Nausea and vomiting, unspecified vomiting type Take 1 tablet (4 mg) by mouth every 6 (six) hours if needed for nausea or vomiting for up to 10 days 40 tablet 0 07/03/2023 07/13/2023 Active Iuxiscmk-Tmh-Oy-FA ( 1 + IRON PO) (1 source) Ebqwwmqn-Sek-Vo-FA ( 1 + IRON PO) Take by mouth 0 Active Completed/Discontinued Medications Medication Drug Class(es) Dates [...] sources) Bacterial vaginosis; Translations: [Vaginitis] 06-27-2020 Episodic Menstrual disorders (1 source) Missed period; Translations: [Irregular menstruation, unspecified] 07-02-2023 Chronic Nausea and vomiting (1 source) Nausea and vomiting; Translations: [Nausea with vomiting, unspecified] 07-03-2023 Episodic Nonmalignant breast conditions (1 source) Breast [...] Test Name Value Interpretation Reference Range Facility HCG ( test) Ql (U)o n 07-03-2023 Interpretation and review of laboratory results Abnormal [facility] Preg Test, Ur Negative [facility] Urinalysis macro (dipstick) panel (U)on 07-03-2023 Bilirubin, UA Negative Negative - 4(70) +++ mg/dL [facility] Blood, UA Negative Negative - 50 William/mcL [facility] Clarity, UA Clear [facility] Color, UA Yellow [facility] Glucose, UA Negative Negative - 2000(110) ++++ mg/dL [facility] Interpretation and review of laboratory results Normal [facility] Ketones, UA Negative Negative - 160(16) ++++ mg/dL [facility] Leukocytes, UA Negative Negative - 500+++ Gerald/mcL [facility] Nitrite, UA Negative Negative - Positive [facility] pH, UA 5.5 5 - 9 [facility] Protein, UA Negative Negative - 1999(20) ++++ mg/dL [facility] Spec Grav, UA 1.010 1 - 1.03 [facility] Urobilinogen, UA 1.0 0.2 - 12 mg/dL [facility] XR FOOT RT MIN 3 VIEWSon XR [...] PADDY SAPP Date: 2022-08-30 14:42 Normal [facility] CBC AUTO DIFFon 06-28-2022 BASO # 0.0 103/ul Normal 0.0-0.1 [facility] Comment on above: Performed By: #### C BC #### [facility] [address] [address] [address] Jerald Poon Basophils/100 WBC (Bld) 0.3 % Normal 0.2-2.0 [facility] Comment on above: Performed By: #### C BC #### [facility] [address] [address] [address] Jerald Pono EO # 0.1 103/ul Normal 0.0-0.7 [facility] Comment on above: Performed By: #### C BC #### [facility] [address] [place] [address] Dr. Jerald Poon Eosinophils/100 WBC (Bld) 1.1 % Normal 0.9-7.0 [facility] Comment on above: Performed By: #### C BC #### [facility] [address] [place] [address] Dr. Jerald Poon Erythrocyte distribution width (RBC) [Ratio] 14.5 % Normal 11.0-15.0 [facility] Comment on above: Performed By: #### C BC #### [facility] [address] [place] [address] Dr. Jerald Poon Hematocrit (Bld) [Volume fraction] 36.7 % Normal 36.0-48.0 [facility] Comment on above: Performed By: #### C BC #### [facility] [address] [place] [address] Dr. Jerald Poon Hemoglobin (Bld) [Mass/Vol] 13.0 g/dL Normal 12.0-16.0 [facility] Comment on above: Performed By: #### C BC #### [facility] [address] [place] [address] Dr. Jerald Poon IG # 0.04 10e3/ul Critically high 0.00-0.03 [facility] Comment on above: Performed By: #### C BC #### [facility] [address] [place] [address] Dr. Jerald Poon IG % 0.3 % Normal 0.0-0.5 [facility] Comment on above: Performed By: #### C BC #### [facility] [address] [place] [address] Dr. Jerald Poon LYMPH # 3.0 103/ul Normal 1.2-3.8 [facility] Comment on above: Performed By: #### C BC #### [facility] [address] [place] [address] Dr. Jerald Poon Lymphocytes/100 WBC (Bld) 26.2 % Normal 20.5-60.0 [facility] Comment on above: Performed By: #### C BC #### [facility] [address] [place] [address] Dr. Jerald Poon MANUAL DIFF REQ NO Normal [facility] Comment on above: Performed By: #### C BC #### [facility] [address] [address] [address] Jerald Poon MCH (RBC) [Entitic mass] 27.1 pg Normal 26.7-34.0 [facility] Comment on above: Performed By: #### C BC #### [facility] [address] [place] [address] Dr. Jerald Poon MCHC (RBC) [Mass/Vol] 35.4 g/dL Critically high 29.9-35.2 [facility] Comment on above: Performed By: #### C BC #### [facility] [address] [place] [address] Dr. Jerald Poon MCV (RBC) [Entitic vol] 76.6 fL Critically low 81.0-99.0 [facility] Comment on above: Performed By: #### C BC #### [facility] [address] [place] [address] Dr. Jerald Poon MONO # 0.8 103/ul Normal 0.3-0.8 [facility] Comment on above: Performed By: #### C BC #### [facility] [address] [place] [address] Dr. Jerald Poon Monocytes/100 WBC (Bld) 7.0 % Normal 1.7-12.0 [facility] Comment on above: Performed By: #### C BC #### [facility] [address] [place] [address] Dr. Jerald Poon NEUT # 7.5 103/ul Critically high 1.4-6.5 [facility] Comment on above: Performed By: #### C BC #### [facility] [address] [place] [address] Dr. Jerald Poon Neutrophils/100 WBC (Bld) 65.1 % Normal 43.0-75.0 [facility] Comment on above: Performed By: #### C BC #### [facility] [address] [place] [address] Dr. Jerald Poon Platelet mean volume (Bld) [Entitic vol] 10.0 fL Normal 9.5-13.5 [facility] Comment on above: Performed By: #### C BC #### [facility] [address] [place] [address] Dr. Jerald Poon PLT 387 103/ul Normal 150-450 [facility] Comment on above: Performed By: #### C BC #### [facility] [address] [place] [address] Dr. Jerald Poon RBC 4.79 106/ul Normal 4.20-5.40 [facility] Comment on above: Performed By: #### C BC #### [facility] [address] [place] [address] Dr. Jerald Poon WBC 11.6 103/ul Critically high 4.0-11.0 [facility] Comment on above: Performed By: #### C BC #### [facility] [address] [place] [address] Dr. Jerald Poon CULTURE URINEon 06-28-2022 CULTURE URINE Culture Observations: LIGHT GROWTH OF MIXED GENITAL ZACARIAS. NO POTENTIAL PATHOGENS SEEN. Normal [facility] Comment on above: Performed By: #### U RCX #### [facility] [address] [place] [address] Dr. Jerald Poon ER URINE PROFILEon 3 Bilirubin Ql (U) Negative Normal NEGATIVE [facility] Comment on above: Performed By: #### U MICRO, ERUR #### [facility] [address] [place] [address] Dr. Jerald Poon Clarity (U) CLEAR Normal CLEAR [facility] Comment on above: Performed By: #### U MICRO, ERUR #### [facility] [address] [place] [address] Dr. Jerald Poon Color (U) YELLOW Normal YELLOW [facility] Comment on above: Performed By: #### U MICRO, ERUR #### [facility] [address] [place] [address] Dr. Jerald Poon ERUNORBERTO A micrscopic examination will be performed if indicated. Normal [facility] Comment on above: Performed By: #### U MICRO, ERUR #### [facility] [address] [place] [address] Dr. Jerald Poon Glucose Ql (U) Negative Normal NEGATIVE [facility] Comment on above: Performed By: #### U MICRO, ERUR #### [facility] [address] [address] [address] Jerald Poon Hemoglobin Ql (U) Negative Normal NEGATIVE [facility] Comment on above: Performed By: #### U MICRO, ERUR #### [facility] [address] [address] [address] Jerald Poon Ketones Ql (U) 40 mg/dl Abnormal NEGATIVE [facility] Comment on above: Performed By: #### U MICRO, ERUR #### [facility] [address] [address] [address] Jerald Poon LEUKOCYTES TRACE Abnormal NEGATIVE [facility] Comment on above: Performed By: #### U MICRO, ERUR #### [facility] [address] [place] [address] Dr. Jerald Poon Nitrite Ql (U) Negative Normal NEGATIVE [facility] Comment on above: Performed By: #### U MICRO, ERUR #### [facility] [address] [place] [address] Dr. Jerald Poon pH (U) 6.0 [pH] Normal 5-9 [facility] Comment on above: Performed By: #### U MICRO, ERUR #### [facility] [address] [place] [address] Dr. Jerald Pono SPEC GRAVITY >=1.030 Abnormal 1.005-<=1.025 [facility] Comment on above: Performed By: #### U MICRO, ERUR #### [facility] [address] [address] [address] Jerald Poon UA PROTEIN Negative Normal NEGATIVE/ TRACE [facility] Comment on above: Performed By: #### U MICRO, ERUR #### [facility] [address] [address] [address] Jerald Poon UR MICRO IND INDICATED Normal [facility] Comment on above: Performed By: #### U MICRO, ERUR #### [facility] [address] [place] [address] Dr. Jerald Poon Urobilinogen Qn (U) 0.2 {Lyly'U}/dL Normal 0.2 - 1. 0 [facility] Comment on above: Performed By: #### U MICRO, ERUR #### [facility] [address] [place] [address] Dr. Jerald Poon PREG QUANT HCGon 06-28-2022 HCG QUANT <1 Normal [facility] Comment on above: Performed By: #### P REGQNT #### [facility] [address] [place] [address] Dr. Jerald Poon HCG RANGE SEE BELOW Normal [facility] Comment on above: Result Comment: 5-50 0.2-1 WEEK 50-500 1-2 WEEKS 100-5,000 2-3 WEEKS 500-10,000 3-4 WEEKS 1,000-50,000 4-5 WEEKS 10,000-100,000 5-6 WEEKS 15,000-200,000 6-8 WEEKS 10,000-100,000 2-3 MONTHS Performed By: #### P REGQNT #### [facility] [address] [place] [address] Dr. Jerald Poon PROF CHEM 8 (BAS METB)on Anion gap [Moles/Vol] 14.0 mmol/L Normal [facility] Comment on above: Performed By: #### C BC #### [facility] [address] [place] [address] Dr. Jerald Poon Calcium [Mass/Vol] 9.6 mg/dL Normal 8.5-10.1 [facility] Comment on above: Performed By: #### C BC #### [facility] [address] [place] [address] Dr. Jerald Poon Chloride [Moles/Vol] 101 mmol/L Normal 98-107 [facility] Comment on above: Performed By: #### C BC #### [facility] [address] [place] [address] Dr. Jerald Poon CO2 [Moles/Vol] 25.4 mmol/L Normal 21.0-32.0 [facility] Comment on above: Performed By: #### C BC #### [facility] [address] [address] [address] Jerald Poon Creatinine [Mass/Vol] 0.92 mg/dL Normal 0.55-1.02 [facility] Comment on above: Performed By: #### C BC #### [facility] [address] [address] [address] Jerald Poon EGFR-AF SOMALI >60 Normal >=60 [facility] Comment on above: Performed By: #### C BC #### [facility] [address] [address] [address] Jerald Poon EGFR-NON AF SOMALI >60 Normal >=60 [facility] Comment on above: Performed By: #### C BC #### [facility] [address] [place] [address] Dr. Jerald Poon Glucose [Mass/Vol] 101 mg/dL Normal 74-106 [facility] Comment on above: Performed By: #### C BC #### [facility] [address] [address] [address] Jerald Poon Potassium [Moles/Vol] 3.4 mmol/L Critically low 3.5-5.1 [facility] Comment on above: Performed By: #### C BC #### [facility] [address] [place] [address] Dr. Jerald Poon Sodium [Moles/Vol] 137 mmol/L Normal 136-145 [facility] Comment on above: Performed By: #### C BC #### [facility] [address] [place] [address] Dr. Jerald Poon Urea nitrogen [Mass/Vol] 11.0 mg/dL Normal 7.0-18.0 [facility] Comment on above: Performed By: #### C BC #### [facility] [address] [place] [address] Dr. Jerald Poon Urea nitrogen/Creatinine [Mass ratio] 12.0 mg/mg Normal [facility] Comment on above: Performed By: #### C BC #### [facility] [address] [place] [address] Dr. Jerald Poon TSHon 06-28-2022 TSH 1.319 uIU/mL Normal 0.358-3.740 [facility] Comment on above: Performed By: #### C BC #### [facility] [address] [place] [address] Dr. Jerald Poon URINE MICROSCOPIC ONLYon BACTERIA SMALL Abnormal NONE SEEN [facility] Comment on above: Performed By: #### U MICRO, ERUR #### [facility] [address] [address] [address] Jerald Poon Bacteria identified Cx Nom (U) INDICATED Normal [facility] Comment on above: Performed By: #### U MICRO, ERUR #### [facility] [address] [place] [address] Dr. Jerald Poon CAST NONE SEEN Normal NONE SEEN [facility] Comment on above: Performed By: #### U MICRO, ERUR #### [facility] [address] [place] [address] Dr. Jerald Poon Crystals LM Nom (Urine sed) NONE SEEN Normal NONE SEEN [facility] Comment on above: Performed By: #### U MICRO, ERUR #### [facility] [address] [place] [address] Dr. Jerald Poon Epithelial cells LM Ql (Urine sed) FEW Abnormal NONE SEEN /RARE [facility] Comment on above: Performed By: #### U MICRO, ERUR #### [facility] [address] [place] [address] Dr. Jerald Poon MUCOUS NONE SEEN Normal NONE SEEN [facility] Comment on above: Performed By: #### U MICRO, ERUR #### [facility] [address] [place] [address] Dr. Jerald Poon RBC NONE SEEN Abnormal 0-2 [facility] Comment on above: Performed By: #### U MICRO, ERUR #### [facility] [address] [place] [address] Dr. Jerald Poon WBC 2-5 Abnormal NONE SEEN [facility] Comment on above: Performed By: #### U MICRO, ERUR #### [facility] [address] [address] [address] Jerald Poon CBC AUTO DIFFon 04-01-2022 BASO # 0.0 103/ul Normal 0.0-0.1 [facility] Comment on above: Performed By: #### C BC #### [facility] [address] [address] [address] Jerald Poon Basophils/100 WBC (Bld) 0.5 % Normal 0.2-2.0 [facility] Comment on above: Performed By: #### C BC #### [facility] [address] [place] [address] Dr. Jerald Poon EO # 0.1 103/ul Normal 0.0-0.7 [facility] Comment on above: Performed By: #### C BC #### [facility] [address] [place] [address] Dr. Jerald Poon Eosinophils/100 WBC (Bld) 1.7 % Normal 0.9-7.0 [facility] Comment on above: Performed By: #### C BC #### [facility] [address] [place] [address] Dr. Jerald Poon Erythrocyte distribution width (RBC) [Ratio] 14.2 % Normal 11.0-15.0 [facility] Comment on above: Performed By: #### C BC #### [facility] [address] [place] [address] Dr. Jerald Poon Hematocrit (Bld) [Volume fraction] 36.7 % Normal 36.0-48.0 [facility] Comment on above: Performed By: #### C BC #### [facility] [address] [place] [address] Dr. Jerald Poon Hemoglobin (Bld) [Mass/Vol] 12.1 g/dL Normal 12.0-16.0 [facility] Comment on above: Performed By: #### C BC #### [facility] [address] [place] [address] Dr. Jerald Poon IG # 0.01 10e3/ul Normal 0.00-0.03 [facility] Comment on above: Performed By: #### C BC #### [facility] [address] [place] [address] Dr. Jerald Poon IG % 0.1 % Normal 0.0-0.5 [facility] Comment on above: Performed By: #### C BC #### [facility] [address] [place] [address] Dr. Jerald Poon LYMPH # 2.3 103/ul Normal 1.2-3.8 [facility] Comment on above: Performed By: #### C BC #### [facility] [address] [place] [address] Dr. eJrald Poon Lymphocytes/100 WBC (Bld) 30.8 % Normal 20.5-60.0 [facility] Comment on above: Performed By: #### C BC #### [facility] [address] [place] [address] Dr. Jerald Poon MANUAL DIFF REQ NO Normal [facility] Comment on above: Performed By: #### C BC #### [facility] [address] [place] [address] Dr. Jerald Poon MCH (RBC) [Entitic mass] 27.3 pg Normal 26.7-34.0 [facility] Comment on above: Performed By: #### C BC #### [facility] [address] [place] [address] Dr. Jerald Poon MCHC (RBC) [Mass/Vol] 33.0 g/dL Normal 29.9-35.2 [facility] Comment on above: Performed By: #### C BC #### [facility] [address] [place] [address] Dr. Jerald Poon MCV (RBC) [Entitic vol] 82.7 fL Normal 81.0-99.0 [facility] Comment on above: Performed By: #### C BC #### [facility] [address] [place] [address] Dr. Jerald Poon MONO # 0.8 103/ul Normal 0.3-0.8 [facility] Comment on above: Performed By: #### C BC #### [facility] [address] [place] [address] Dr. Jerald Poon Monocytes/100 WBC (Bld) 10.6 % Normal 1.7-12.0 [facility] Comment on above: Performed By: #### C BC #### [facility] [address] [place] [address] Dr. Jerald Poon NEUT # 4.2 103/ul Normal 1.4-6.5 [facility] Comment on above: Performed By: #### C BC #### [facility] [address] [place] [address] Dr. Jerald Poon Neutrophils/100 WBC (Bld) 56.3 % Normal 43.0-75.0 [facility] Comment on above: Performed By: #### C BC #### [facility] [address] [place] [address] Dr. Jerald Poon Platelet mean volume (Bld) [Entitic vol] 10.2 fL Normal 9.5-13.5 [facility] Comment on above: Performed By: #### C BC #### [facility] [address] [place] [address] Dr. Jerald Poon PLT 375 103/ul Normal 150-450 [facility] Comment on above: Performed By: #### C BC #### [facility] [address] [place] [address] Dr. Jerald Poon RBC 4.44 106/ul Normal 4.20-5.40 [facility] Comment on above: Performed By: #### C BC #### [facility] [address] [place] [address] Dr. Jerald Poon WBC 7.5 103/ul Normal 4.0-11.0 [facility] Comment on above: Performed By: #### C BC #### [facility] [address] [place] [address] Dr. Jerald Poon ER URINE PROFILEon 2 Bilirubin Ql (U) Negative Normal NEGATIVE [facility] Comment on above: Performed By: #### C BC #### [facility] [address] [place] [address] Dr. Jerald Poon Clarity (U) CLEAR Normal CLEAR [facility] Comment on above: Performed By: #### C BC #### [facility] [address] [place] [address] Dr. Jerald Poon Color (U) YELLOW Normal YELLOW [facility] Comment on above: Performed By: #### C BC #### [facility] [address] [place] [address] Dr. Jerald CEBALLOS A micrscopic examination will be performed if indicated. Normal [facility] Comment on above: Performed By: #### C BC #### [facility] [address] [place] [address] Dr. Jerald Poon Glucose Ql (U) Negative Normal NEGATIVE [facility] Comment on above: Performed By: #### C BC #### [facility] [address] [place] [address] Dr. Jerald Poon Hemoglobin Ql (U) Negative Normal NEGATIVE [facility] Comment on above: Performed By: #### C BC #### [facility] [address] [place] [address] Dr. Jerald Poon Ketones Ql (U) Negative Normal NEGATIVE [facility] Comment on above: Performed By: #### C BC #### [facility] [address] [place] [address] Dr. Jerald Poon LEUKOCYTES Negative Normal NEGATIVE [facility] Comment on above: Performed By: #### C BC #### [facility] [address] [place] [address] Dr. Jerald Poon Nitrite Ql (U) Negative Normal NEGATIVE [facility] Comment on above: Performed By: #### C BC #### [facility] [address] [place] [address] Dr. Jerald Poon pH (U) 7.0 [pH] Normal 5-9 [facility] Comment on above: Performed By: #### C BC #### [facility] [address] [place] [address] Dr. Jerald Poon SPEC GRAVITY 1.025 Normal 1.005-<=1.025 [facility] Comment on above: Performed By: #### C BC #### [facility] [address] [place] [address] Dr. Jerald Poon UA PROTEIN Negative Normal NEGATIVE/ TRACE [facility] Comment on above: Performed By: #### C BC #### [facility] [address] [place] [address] Dr. Jerald Poon UR MICRO IND NOT INDICATED Normal [facility] Comment on above: Performed By: #### C BC #### [facility] [address] [place] [address] Dr. Jerald Poon Urobilinogen Qn (U) 1.0 {Lyly'U}/dL Normal 0.2 - 1. 0 [facility] Comment on above: Performed By: #### C BC #### [facility] [address] [place] [address] Dr. Jerald Poon PREG QUANT HCGon 04-01-2022 HCG QUANT 1 mIU/mL Normal [facility] Comment on above: Performed By: #### P REGQNT #### [facility] [address] [place] [address] Dr. Jerald Poon HCG RANGE SEE BELOW Normal [facility] Comment on above: Result Comment: 5-50 0.2-1 WEEK 50-500 1-2 WEEKS 100-5,000 2-3 WEEKS 500-10,000 3-4 WEEKS 1,000-50,000 4-5 WEEKS 10,000-100,000 5-6 WEEKS 15,000-200,000 6-8 WEEKS 10,000-100,000 2-3 MONTHS Performed By: #### P REGQNT #### [facility] [address] [place] [address] Dr. Jerald Poon PROF 14(COMP METB)on 022 Albumin [Mass/Vol] 3.6 g/dL Normal 3.4-5.0 [facility] Comment on above: Performed By: #### C MP #### [facility] [address] [place] [address] Dr. Jerald Poon Albumin/Globulin [Mass ratio] 0.8 {ratio} Normal [facility] Comment on above: Performed By: #### C MP #### [facility] [address] [place] [address] Dr. Jerald Poon ALP [Catalytic activity/Vol] 65 U/L Normal 46-116 [facility] Comment on above: Performed By: #### C MP #### [facility] [address] [place] [address] Dr. Jerald Poon ALT [Catalytic activity/Vol] 22 U/L Normal 14-59 [facility] Comment on above: Performed By: #### C MP #### [facility] [address] [place] [address] Dr. Jerald Poon Anion gap [Moles/Vol] 10.3 mmol/L Normal [facility] Comment on above: Performed By: #### C MP #### [facility] [address] [place] [address] Dr. Jerald Poon AST [Catalytic activity/Vol] 14 U/L Critically low 15-37 [facility] Comment on above: Performed By: #### C MP #### [facility] [address] [place] [address] Dr. Jerald Poon Bilirubin [Mass/Vol] 0.1 mg/dL Critically low 0.2-1.0 [facility] Comment on above: Performed By: #### C MP #### [facility] [address] [place] [address] Dr. Jerald Poon Calcium [Mass/Vol] 8.6 mg/dL Normal 8.5-10.1 [facility] Comment on above: Performed By: #### C MP #### [facility] [address] [place] [address] Dr. Jerald Poon Chloride [Moles/Vol] 104 mmol/L Normal 98-107 [facility] Comment on above: Performed By: #### C MP #### [facility] [address] [place] [address] Dr. Jerald Poon CO2 [Moles/Vol] 28.1 mmol/L Normal 21.0-32.0 [facility] Comment on above: Performed By: #### C MP #### [facility] [address] [place] [address] Dr. Jerald Poon Creatinine [Mass/Vol] 0.99 mg/dL Normal 0.55-1.02 [facility] Comment on above: Performed By: #### C MP #### [facility] [address] [address] [address] Jerald Poon EGFR-AF SOMALI >60 Normal >=60 [facility] Comment on above: Performed By: #### C MP #### [facility] [address] [address] [address] Jerald Poon EGFR-NON AF SOMALI >60 Normal >=60 [facility] Comment on above: Performed By: #### C MP #### [facility] [address] [address] [address] Jerald Poon Globulin (S) [Mass/Vol] 4.5 g/dL Normal [facility] Comment on above: Performed By: #### C MP #### [facility] [address] [address] [address] Jerald Poon Glucose [Mass/Vol] 94 mg/dL Normal 74-106 [facility] Comment on above: Performed By: #### C MP #### [facility] [address] [address] [address] Jerald Poon Potassium [Moles/Vol] 3.4 mmol/L Critically low 3.5-5.1 [facility] Comment on above: Performed By: #### C MP #### [facility] [address] [address] [address] Jerald Poon Protein [Mass/Vol] 8.1 g/dL Normal 6.4-8.2 [facility] Comment on above: Performed By: #### C MP #### [facility] [address] [address] [address] Jerald Poon Sodium [Moles/Vol] 139 mmol/L Normal 136-145 [facility] Comment on above: Performed By: #### C MP #### [facility] [address] [address] [address] Jerald Poon Urea nitrogen [Mass/Vol] 8.0 mg/dL Normal 7.0-18.0 [facility] Comment on above: Performed By: #### C MP #### [facility] [address] [place], [place] [address] Dr. Jerald Poon Urea nitrogen/Creatinine [Mass ratio] 8.1 mg/mg Normal [facility] Comment on above: Performed By: #### C MP #### [facility] [address] [place], [place] [address] Dr. Jerald Poon US PELVIS TRANSVAGon 022 [...] by: LUH MANRIQUE Date: 2022-04-01 21:55 Normal [facility] Automated erythrocytes count in urine sediment (number/area)Ordered By: Anders Sesay on 10-19-2021 RBC Auto (Urine sed) [#/Area] 1-2 [HPF] [facility] Automated leukocytes count i n urine sediment (number/area)Ordered By: Anders Sesay on 10-19-2021 WBC Auto (Urine sed) [#/Area] 3-4 [HPF] [facility] Basophils Auto (Bld) [#/Vol] Ordered By: Anders Sesay on 10-19-2021 Basophils (Bld) [#/Vol] 0.1 10*3/uL 0.0-0.2 [facility] Basophils/100 WBC Auto (Bld) Ordered By: Anders Sesay on 10-19-2021 Basophils/100 WBC (Bld) 0.6 % [facility] Bilirubin Test strip Ql (U)O rdered By: Anders Sesay on 10-19-2021 Bilirubin Ql (U) Negative Negative [facility] Blood hemoglobin measurement (mass/volume)Ordered By: Anders Sesay on 10-19-2021 Hemoglobin (Bld) [Mass/Vol] 13.2 g/dL 11.8-15.4 [facility] Blood leukocytes automated c ount (number/volume)Ordered By: Anders Sesay on 10-19-2021 WBC (Bld) [#/Vol] 9.1 10*3/uL 4.5-11.0 [facility] Body fluid albumin measureme nt (mass/volume)Ordered By: Anders Sesay on 10-19-2021 Albumin (Body fld) [Mass/Vol] 3.8 g/dL 3.2-5.5 [facility] Color Auto (U)Ordered By: Jason Sesay on 10-19-2021 Color (U) Yellow Yellow [facility] Creatinine and Glomerular fi ltration rate.predicted panel (S/P/Bld)Ordered By: Anders Sesay on 10-19-2021 Creatinine [Mass/Vol] 0.87 mg/dL 0.44-1.03 [facility] Eosinophils Auto (Bld) [#/Vo l]Ordered By: Anders Sesay on 10-19-2021 Eosinophils (Bld) [#/Vol] 0.1 10*3/uL 0.0-0.45 [facility] Eosinophils/100 WBC Auto (Bl d)Ordered By: Anders Sesay on 10-19-2021 Eosinophils/100 WBC (Bld) 0.9 % [facility] Erythrocyte distribution wid th Auto (RBC) [Ratio]Ordered By: Anders Sesay on 10-19-2021 Erythrocyte distribution width (RBC) [Ratio] 16.4 % 11.9-15.3 [facility] Estimated glomerular filtrat ion rate (GFR) non- AmericanOrdered By: Anders Sesay on 10-19-2021 GFR/1.73 sq M.predicted among non-blacks MDRD (S/P/Bld) [Vol rate/Area] > 60 mL/Min [facility] Globulin Calc (S) [Mass/Vol] Ordered By: Anders Sesay on 10-19-2021 Globulin (S) [Mass/Vol] 4.3 g/dL [facility] HCG ( test) IA.rapi d Ql (U)Ordered By: Anders Sesay on 10-19-2021 HCG ( test) Ql (U) Negative [facility] Hematocrit Auto (Bld) [Volum e fraction]Ordered By: Anders Sesay on 10-19-2021 Hematocrit (Bld) [Volume fraction] 40.2 % 34.0-46.4 [facility] Ketones Auto test strip (U) [Mass/Vol]Ordered By: Anders Sesay on 10-19-2021 Ketones (U) [Mass/Vol] Negative Negative [facility] - Hematology and Cell countsOrdered By: Anders Sesay on 10-19-2021 Nucleated RBC/100 WBC (Bld) [Ratio] 0.2 % 0-0.5 [facility] - UrinalysisOrder ed By: Anders Sesay on 10-19-2021 Hyaline casts LM Ql (Urine sed) 0-8 [LPF] [facility] Lymphocytes Auto (Bld) [#/Vo l]Ordered By: Anders Sesay on 10-19-2021 Lymphocytes (Bld) [#/Vol] 2.4 10*3/uL 1.00-4.8 [facility] Lymphocytes/100 WBC Auto (Bl d)Ordered By: Anders Sesay on 10-19-2021 Lymphocytes/100 WBC (Bld) 26.7 % [facility] MCH Auto (RBC) [Entitic mass ]Ordered By: Anders Sesay on 10-19-2021 MCH (RBC) [Entitic mass] 26.3 pg 24.7-34.3 [facility] MCHC Auto (RBC) [Mass/Vol]Or dered By: Anders Sesay on 10-19-2021 MCHC (RBC) [Mass/Vol] 32.9 g/dL 32.0-35.0 [facility] [place] MCV Auto (RBC) [Entitic vol] Ordered By: Anders Sesay on 10-19-2021 MCV (RBC) [Entitic vol] 80.1 fL 80-100 [facility] Monocytes Auto (Bld) [#/Vol] Ordered By: Anders Sesay on 10-19-2021 Monocytes (Bld) [#/Vol] 0.7 10*3/uL 0.0-0.8 [facility] Monocytes/100 WBC Auto (Bld) Ordered By: Anders Sesay on 10-19-2021 Monocytes/100 WBC (Bld) 7.6 % [facility] Neutrophils Auto (Bld) [#/Vo l]Ordered By: Anders Sesay on 10-19-2021 Neutrophils (Bld) [#/Vol] 5.8 10*3/uL 1.8-7.7 [facility] Neutrophils/100 WBC Auto (Bl d)Ordered By: Anders Sesay on 10-19-2021 Neutrophils/100 WBC (Bld) 64.2 % [facility] Nitrite Test strip Ql (U)Ord ered By: Anders Sesay on 10-19-2021 Nitrite Ql (U) Negative Negative [facility] No Panel InformationOrdered By: Anders Sesay on 10-19-2021 Estimated GFR () > 60 mL/Min [facility] Comment on above: GFR estimated refere nce range: According to KDOQI guidelines, <60 ml/min/1.73m2 is sufficient to diagnose a patient with chronic kidney disease. Pharmacy Creatinine Clearance (Chem 147.41 [facility] Platelet mean volume Auto (B ld) [Entitic vol]Ordered By: Anders Sesay on 10-19-2021 Platelet mean volume (Bld) [Entitic vol] 8.6 fL 6.3-10.7 [facility] Platelets Auto (Bld) [#/Vol] Ordered By: Anders Sesay on 10-19-2021 Platelets (Bld) [#/Vol] 395 10*3/uL 150-450 [facility] Protein Auto test strip (U) [Mass/Vol]Ordered By: Anders Sesay on 10-19-2021 Protein (U) [Mass/Vol] Negative Negative [facility] Protein [Mass/volume] in Ser um or PlasmaOrdered By: Anders Sesay on 10-19-2021 Protein [Mass/Vol] 8.1 g/dL 6.1-7.9 [facility] RBC Auto (Bld) [#/Vol]Ordere d By: Anders Sesay on 10-19-2021 RBC (Bld) [#/Vol] 5.02 10*6/uL 3.60-5.00 [facility] [place] [facility] Serum or plasma alanine ayoub otransferase measurement without P-5'-P (enzymatic activiOrdered By: Anders Sesay on 10-19-2021 ALT No additional P-5'-P [Catalytic activity/Vol] 20 U/L 10-60 [facility] Serum or plasma albumin/glob ulin mass ratioOrdered By: Anders Sesay on 10-19-2021 Albumin/Globulin [Mass ratio] 0.9 {ratio} [facility] Serum or plasma alkaline cosmo sphatase measurement (enzymatic activity/volume)Ordered By: Anders Sesay on 10-19-2021 ALP [Catalytic activity/Vol] 55 U/L 32-92 [facility] Serum or plasma aspartate am inotransferase measurement (enzymatic activity/volume)Ordered By: Anders Sesay on 10-19-2021 AST [Catalytic activity/Vol] 17 U/L 10-42 [facility] Serum or plasma calcium joann urement (mass/volume)Ordered By: Anders Sesay on 10-19-2021 Calcium [Mass/Vol] 9.1 mg/dL 8.2-10.2 [facility] Serum or plasma chloride adan surement (moles/volume)Ordered By: Anders Sesay on 10-19-2021 Chloride [Moles/Vol] 103 mmol/L 95-114 [facility] Serum or plasma glucose joann urement (mass/volume)Ordered By: Anders Sesay on 10-19-2021 Glucose [Mass/Vol] 105 mg/dL 70-100 [facility] Comment on above: ADA recommended refe rence range Random Glucose Reference Range is dependent on time and content of last meal. Glucose of more than 200 mg/dL in a nonstressed, ambulatory subject supports the diagnosis of Diabetes Mellitus. Serum or plasma potassium me asurement (moles/volume)Ordered By: Anders Sesay on 10-19-2021 Potassium [Moles/Vol] 3.7 mmol/L 3.5-5.1 [facility] Serum or plasma sodium measu rement (moles/volume)Ordered By: Anders Sesay on 10-19-2021 Sodium [Moles/Vol] 137 mmol/L 136-146 [facility] Serum or plasma total biliru bin measurement (mass/volume)Ordered By: Anders Sesay on 10-19-2021 Bilirubin [Mass/Vol] 0.3 mg/dL 0.3-1.2 [facility] Serum or plasma total carbon dioxide measurement (moles/volume)Ordered By: Anders Sesay on 10-19-2021 CO2 [Moles/Vol] 24.2 mmol/L 22.0-30.0 [facility] Serum or plasma urea nitroge n measurement (mass/volume)Ordered By: Anders Sesay on 10-19-2021 Urea nitrogen [Mass/Vol] 7 mg/dL 9- [facility] Specific gravity Auto test s trip (U) [Rel density]Ordered By: Anders Sesay on 10-19-2021 Specific gravity (U) [Rel density] 1.014 1.001-1.030 [facility] Squamous epithelial cells de tection in urine sediment by light microscopyOrdered By: Anders Sesay on 10-19-2021 Epithelial cells.squamous LM Ql (Urine sed) 3-4 [HPF] [facility] Urine bacteria detection by automated methodOrdered By: Anders Sesay on 10-19-2021 Bacteria Auto Ql (U) 1+ None Seen [facility] Urine clarity by refractomet ry automatedOrdered By: Anders Sesay on 10-19-2021 Clarity Refractometry automated (U) Clear Clear [facility] Urine glucose measurement by automated test strip (mass/volume)Ordered By: Anders Sesay on 10-19-2021 Glucose Auto test strip (U) [Mass/Vol] Normal mg/dL Normal [facility] Urine hemoglobin detection b y automated test stripOrdered By: Anders Sesay on 10-19-2021 Hemoglobin Auto test strip Ql (U) Negative Negative [facility] Urine leukocyte esterase det ection by automated test stripOrdered By: Anders Sesay on 10-19-2021 Leukocyte esterase Auto test strip Ql (U) 1+ Negative [facility] Urobilinogen Auto test strip (U) [Mass/Vol]Ordered By: Anders Sesay on 10-19-2021 Urobilinogen (U) [Mass/Vol] Normal mg/dL Normal [facility] pH Auto test strip (U)Ordere d By: Anders Sesay on 10-19-2021 pH (U) 5.5 [pH] 5.0-9.0 [facility] US DUP ABD PEL RETRO SCROT L [...] MD 07/14/20 Edited Result - FINAL Normal [facility] US NON OB TRANSVAGINALon US [...] MD 07/14/20 Edited Result - FINAL Normal [facility] Chlamydia/GC,DNA Ampon 07-10 Chlamydia Probe Negative Normal NEG [facility] Comment on above: Result Comment: [...] Performed By: #### U HCG, UAMIC #### [facility] [address] [place] [id number] Analysis Analyst: Campos Avilez MD Gonorrhea Probe Negative Normal NEG [facility] Comment on above: Result Comment: [...] Performed By: #### U HCG, UAMIC #### [facility] [address] [place] [address] Analysis Analyst: Campos Avilez MD Cult,Urineon 07-09-2020 Cult,Urine Specimen Description .CLEAN CATCH URINE Special Requests NOT REPORTED Culture ESCHERICHIA COLI >[id number] CFU/ML Report Status FINAL 07/09/2020 SUSCEPTIBILITY Organism [...] <=20 SUSCEPTIBLE Piperacillin/Tazobac her <=4 SUSCEPTIBLE Normal [facility] Comment on above: Performed By: #### U HCG, UAMIC #### [place] [address] Analysis Analyst: Campos Avilez MD ABO/Rh(D)on 07-08-2020 ABO/Rh(D) Positive Normal [facility] Comment on above: Performed By: #### A BRH #### [facility] [address] [place] [address] Analysis Analyst: Campos Avilez MD CBC with Diffon 07-08-2020 Abs. Basophil 0.04 k/uL Normal 0.00-0.20 [facility] Comment on above: Performed By: #### C P, CDP, COSMO, BHCG, MG, VD25, LIP #### [facility] [address] [place] [address] Analysis Analyst: Campos Avilez MD Abs.Imm.Granulocyte 0.04 k/uL Normal 0.00-0.30 [facility] Comment on above: Performed By: #### C P, CDP, COSMO, BHCG, MG, VD25, LIP #### [facility] [address] [place] [address] Analysis Analyst: Campos Avilez MD Abs.Neutrophil (Seg) 8.16 k/uL High 1.80-8.00 [facility] Comment on above: Performed By: #### C P, CDP, COSMO, BHCG, MG, VD25, LIP #### [address] [address] Analysis Analyst: Campos Avilez MD Basophils/100 WBC (Bld) 0 % Normal 0-2 [facility] Comment on above: Performed By: #### C P, CDP, COSMO, BHCG, MG, VD25, LIP #### [address] [address] Analysis Analyst: Campos Avilez MD Eosinophils (Bld) [#/Vol] 0.10 10*3/uL Normal 0.00-0.44 [facility] Comment on above: Performed By: #### C P, CDP, COSMO, BHCG, MG, VD25, LIP #### [place] [address] Analysis Analyst: Campos Avilez MD Eosinophils/100 WBC (Bld) 1 % Normal 1-4 [facility] Comment on above: Performed By: #### C P, CDP, COSMO, BHCG, MG, VD25, LIP #### [facility] [address] [place] [address] Analysis Analyst: Campos Avilez MD Erythrocyte distribution width (RBC) [Ratio] 14.0 % Normal 11.8-14.4 [facility] Comment on above: Performed By: #### C P, CDP, COSMO, BHCG, MG, VD25, LIP #### [facility] [address] [place] [address] Analysis Analyst: Campos Avilez MD Hematocrit (Bld) [Volume fraction] 34.3 % Low 36.3-47.1 [facility] Comment on above: Performed By: #### C P, CDP, COSMO, BHCG, MG, VD25, LIP #### [facility] [address] [place] [address] Analysis Analyst: Campos Avilez MD Hemoglobin (Bld) [Mass/Vol] 11.1 g/dL Low 11.9-15.1 [facility] Comment on above: Performed By: #### C P, CDP, COSMO, BHCG, MG, VD25, LIP #### [address] [address] Analysis Analyst: Campos Avilez MD Immature granulocytes (Bld) [#/Vol] 0 % Normal 0 [facility] Comment on above: Performed By: #### C P, CDP, COSMO, BHCG, MG, VD25, LIP #### [place] [address] Analysis Analyst: Campos Avilez MD Lymphocytes (Bld) [#/Vol] 1.77 10*3/uL Normal 1.20-5.20 [facility] Comment on above: Performed By: #### C P, CDP, COSMO, BHCG, MG, VD25, LIP #### [address] [address] Analysis Analyst: Campos Avilez MD Lymphocytes/100 WBC (Bld) 16 % Low 25-45 [facility] Comment on above: Performed By: #### C P, CDP, COSMO, BHCG, MG, VD25, LIP #### [address] [address] Analysis Analyst: Campos Avilez MD MCH (RBC) [Entitic mass] 26.6 pg Normal 25.0-35.0 [facility] Comment on above: Performed By: #### C P, CDP, COSMO, BHCG, MG, VD25, LIP #### [address] [address] Analysis Analyst: Campos Avilez MD MCHC (RBC) [Mass/Vol] 32.4 g/dL Normal 28.4-34.8 [facility] Comment on above: Performed By: #### C P, CDP, COSMO, BHCG, MG, VD25, LIP #### [address] [address] Analysis Analyst: Campos Avilez MD MCV (RBC) [Entitic vol] 82.3 fL Normal 78.0-102.0 [facility] Comment on above: Performed By: #### C P, CDP, COSMO, BHCG, MG, VD25, LIP #### [address] [address] Analysis Analyst: Campos Avilez MD Monocytes (Bld) [#/Vol] 0.73 10*3/uL Normal 0.10-1.40 [facility] Comment on above: Performed By: #### C P, CDP, COSMO, BHCG, MG, VD25, LIP #### [address] [address] Analysis Analyst: Campos Avilez MD Monocytes/100 WBC (Bld) 7 % Normal 2-8 [facility] Comment on above: Performed By: #### C P, CDP, COSMO, BHCG, MG, VD25, LIP #### [address] [address] Analysis Analyst: Campos Avilez MD Neutrophil (Seg) 75 % High 34-64 [facility] Comment on above: Performed By: #### C P, CDP, COSMO, BHCG, MG, VD25, LIP #### [address] [address] Analysis Analyst: Campos Avilez MD NRBC Automated 0.0 per 100 WBC Normal 0.0 [facility] Comment on above: Performed By: #### C P, CDP, COSMO, BHCG, MG, VD25, LIP #### [address] [address] Analysis Analyst: Campos Avilez MD Platelet mean volume (Bld) [Entitic vol] 11.8 fL Normal 8.1-13.5 [facility] Comment on above: Performed By: #### C P, CDP, COSMO, BHCG, MG, VD25, LIP #### [address] [address] Analysis Analyst: Campos Avilez MD Platelets (Bld) [#/Vol] 288 10*3/uL Normal 138-453 [facility] Comment on above: Performed By: #### C P, CDP, COSMO, BHCG, MG, VD25, LIP #### [address] [address] Analysis Analyst: Campos Avilez MD RBC (Bld) [#/Vol] 4.17 10*6/uL Normal 3.95-5.11 [facility] Comment on above: Performed By: #### C P, CDP, COSMO, BHCG, MG, VD25, LIP #### [address] [address] Analysis Analyst: Campos Avilez MD WBC (Bld) [#/Vol] 10.8 10*3/uL Normal 4.5-13.5 [facility] Comment on above: Performed By: #### C P, CDP, COSMO, BHCG, MG, VD25, LIP #### [address] [address] Analysis Analyst: Campos Avilez MD Auto Diff Performed NOT REPORTED Normal [facility] Comment on above: Performed By: #### C P, CDP, COSMO, BHCG, MG, VD25, LIP #### [address] [address] Analysis Analyst: Campos Avilez MD Platelets (Bld) [#/Vol] NOT REPORTED Normal [facility] Comment on above: Performed By: #### C P, CDP, COSMO, BHCG, MG, VD25, LIP #### [facility] [address] [place] [address] Analysis Analyst: Campos Avilez MD RBC morphology finding Nom (Bld) NOT REPORTED Normal [facility] Comment on above: Performed By: #### C P, CDP, COSMO, BHCG, MG, VD25, LIP #### [facility] [address] [place] [address] Analysis Analyst: Campos Avilez MD WBC Morphology NOT REPORTED Normal [facility] Comment on above: Performed By: #### C P, CDP, COSMO, BHCG, MG, VD25, LIP #### [address] [address] Analysis Analyst: Campos Avilez MD Calcium, Ionicon 07-08-2020 Calcium [Mass/Vol] 1.18 mmol/L Normal 1.13-1.33 [facility] Comment on above: Performed By: #### I OCAL #### [address] [address] Analysis Analyst: Campos Avilez MD Calcium, Ionizedon Calcium [Mass/Vol] 1.18 mmol/L 1.13 - 1. 33 mmol/L [facility] [place] Comp Metabolic Profon 2020 (cont.) Normal [facility] Comment on above: Result Comment: Aver age GFR for <20 years old not available. Chronic Kidney Disease: <60 mL/min/1.73sq m Kidney failure: <15 mL/min/1.73sq m eGFR calculated using average adult body mass. Additional eGFR calculator available at: http://www.[employer].LikeList/multiple_crcl_2012.htm Performed By: #### C P, CDP, COSMO, BHCG, MG, VD25, LIP #### [facility] [address] [place] [address] Analysis Analyst: Campos Avilez MD Albumin [Mass/Vol] 2.3 g/dL Low 3.5-5.2 [facility] Comment on above: Performed By: #### C P, CDP, COSMO, BHCG, MG, VD25, LIP #### [address] [address] Analysis Analyst: Campos Avilez MD Albumin/Globulin [Mass ratio] 0.9 {ratio} Low 1.0-2.5 [facility] Comment on above: Performed By: #### C P, CDP, COSMO, BHCG, MG, VD25, LIP #### [address] [address] Analysis Analyst: Campos Avilez MD Alkaline Phos 41 U/L Normal 35-104 [facility] Comment on above: Result Comment: SPEC IMEN MODERATELY HEMOLYZED, RESULTS MAY BE ADVERSELY AFFECTED Performed By: #### C P, CDP, COSMO, BHCG, MG, VD25, LIP #### [address] [address] Analysis Analyst: Campos Avilez MD ALT [Catalytic activity/Vol] 11 U/L Normal 5-33 [facility] Comment on above: Result Comment: SPEC IMEN MODERATELY HEMOLYZED, RESULTS MAY BE ADVERSELY AFFECTED Performed By: #### C P, CDP, COSMO, BHCG, MG, VD25, LIP #### [address] [address] Analysis Analyst: Campos Avilez MD Anion gap [Moles/Vol] 9 mmol/L Normal 9-17 [facility] Comment on above: Performed By: #### C P, CDP, COSMO, BHCG, MG, VD25, LIP #### [address] [address] Analysis Analyst: Campos Avilez MD AST [Catalytic activity/Vol] 28 U/L Normal <32 [facility] Comment on above: Result Comment: SPEC IMEN MODERATELY HEMOLYZED, RESULTS MAY BE ADVERSELY AFFECTED Performed By: #### C P, CDP, COSMO, BHCG, MG, VD25, LIP #### [address] [address] Analysis Analyst: Campos Avilez MD Bilirubin Ql (U) <0.10 Low 0.3-1.2 [facility] Comment on above: Performed By: #### C P, CDP, COSMO, BHCG, MG, VD25, LIP #### [address] [address] Analysis Analyst: Campos Avilez MD Calcium [Mass/Vol] 5.5 mg/dL Critically low 8.6-10.4 [facility] Comment on above: Performed By: #### C P, CDP, COSMO, BHCG, MG, VD25, LIP #### [address] [address] Analysis Analyst: Campos Avilez MD Chloride [Moles/Vol] 118 mmol/L High 98-107 [facility] Comment on above: Performed By: #### C P, CDP, COSMO, BHCG, MG, VD25, LIP #### [address] [address] Analysis Analyst: Campos Avilez MD CO2 [Moles/Vol] 14 mmol/L Low 20-31 [facility] Comment on above: Performed By: #### C P, CDP, COSMO, BHCG, MG, VD25, LIP #### [address] [address] Analysis Analyst: Campos Avilez MD Creatinine [Mass/Vol] 0.60 mg/dL Normal 0.50-0.90 [facility] Comment on above: Performed By: #### C P, CDP, COSMO, BHCG, MG, VD25, LIP #### [facility] [address] [place] [address] Analysis Analyst: Campos Avilez MD GFR,non Amer Pediatric GFR requires additional information. Refer to NKDEP website for Normal >60 [facility] Comment on above: Result Comment: calc ulator. Performed By: #### C P, CDP, COSMO, BHCG, MG, VD25, LIP #### [address] [address] Analysis Analyst: Campos Avilez MD Glucose [Mass/Vol] 84 mg/dL Normal 70-99 [facility] Comment on above: Performed By: #### C P, CDP, COSMO, BHCG, MG, VD25, LIP #### [address] [address] Analysis Analyst: Campos Avilez MD Potassium [Moles/Vol] 5.1 mmol/L Normal 3.7-5.3 [facility] Comment on above: Result Comment: SPEC IMEN MODERATELY HEMOLYZED, RESULTS MAY BE ADVERSELY AFFECTED Performed By: #### C P, CDP, COSMO, BHCG, MG, VD25, LIP #### [facility] [address] [place] [address] Analysis Analyst: Campos Avilez MD Protein [Mass/Vol] 5.0 g/dL Low 6.4-8.3 [facility] Comment on above: Performed By: #### C P, CDP, COSMO, BHCG, MG, VD25, LIP #### [facility] [address] [place] [address] Analysis Analyst: Campos Avilez MD Sodium [Moles/Vol] 141 mmol/L Normal 135-144 [facility] Comment on above: Performed By: #### C P, CDP, COSMO, BHCG, MG, VD25, LIP #### [facility] [address] [place] [address] Analysis Analyst: Campos Avilez MD Urea nitrogen [Mass/Vol] 10 mg/dL Normal 6-20 [facility] Comment on above: Performed By: #### C P, CDP, COSMO, BHCG, MG, VD25, LIP #### [facility] [address] [place] [address] Analysis Analyst: Campos Avilez MD BUN/CRE Ratio NOT REPORTED Normal 9-20 [facility] Comment on above: Performed By: #### C P, CDP, COSMO, BHCG, MG, VD25, LIP #### [facility] [address] [place] [address] Analysis Analyst: Campos Avilez MD GFR, Amer NOT REPORTED Normal >60 [facility] Comment on above: Performed By: #### C P, CDP, COSMO, BHCG, MG, VD25, LIP #### [facility] [address] [place] [address] Analysis Analyst: Campos Avilez MD Staging: NOT REPORTED Normal [facility] Comment on above: Performed By: #### C P, CDP, COSMO, BHCG, MG, VD25, LIP #### [facility] [address] [place] [address] Analysis Analyst: Campos Avilez MD HCG, ,Urineon 07-08 Beta HCG ( test) Ql (U) Negative Normal NEG [facility] Comment on above: Result Comment: [...] Performed By: #### U HCG, UAMIC #### [facility] [address] [place] [address] Analysis Analyst: Campos Avilez MD HCG, Quanton 07-08-2020 HCG, Quant <1 Normal <5 [facility] Comment on above: Result Comment: [...] CDP, COSMO, BHCG, MG, VD25, LIP #### [facility] [address] [place] [address] Analysis Analyst: Campos Avilez MD Lipaseon 07-08-2020 Lipase [Catalytic activity/Vol] 15 U/L Normal 13-60 [facility] Comment on above: Performed By: #### C P, CDP, COSMO, BHCG, MG, VD25, LIP #### [facility] [address] [place] [address] Analysis Analyst: Campos Avilez MD Magnesiumon 07-08-2020 Magnesium [Mass/Vol] 1.2 mg/dL Low 1.7-2.2 [facility] Comment on above: Performed By: #### C P, CDP, COSMO, BHCG, MG, VD25, LIP #### [address] [id number] Analysis Analyst: Campos Avilez MD Interpretation and review of laboratory results Abnormal [place] Magnesium [Mass/Vol] 1.2 mg/dL Low 1.7 - 2 .2 mg/dL [place] Otheron 07-08-2020 Direct Exam Negative [place] , URINEon 1 Beta HCG ( test) Ql (U) Negative NEGATIVE [place] Comment on above: Specimens with hCG [...] 2.6 mg/dL 2.5 - 4 .8 mg/dL [place] Phosphorus, Inorg.on 021 Phosphorus, Inorg. 2.6 mg/dL Normal 2.5-4.8 [facility] Comment on above: Performed By: #### U HCG, UAMIC #### [facility] [address] [place] [address] Analysis Analyst: Campos Avilez MD NON OB TRANSVAGINALon Elia, Mhpn Incoming Radiant Results From [employer] - 07/08/2020 12:31 AM EST EXAMINATION: PELVIC [...] No evidence of ovarian torsion is noted. [place], [place] Unremarkable pelvic ultrasound. No evidence of ovarian torsion is noted. [place] EXAMINATION: PELVIC ULTRASOUND 07/07/2020 TECHNIQUE: Transvaginal [...] Free Fluid: No evidence of free fluid. [facility] [place], [place] Urinalysis w/ Microon 2020 ----- Normal [facility] Comment on above: Performed By: #### U HCG, UAMIC #### [address] [address] Analysis Analyst: Campos Avilez MD Acetoacetic Acid,Ur Negative Normal NEG [facility] Comment on above: Performed By: #### U HCG, UAMIC #### [address] [address] Analysis Analyst: Campos Avilez MD Bacteria LM.HPF (Urine sed) [#/Area] MANY Abnormal NONE [facility] Comment on above: Performed By: #### U HCG, UAMIC #### [address] [address] Analysis Analyst: Campos Avilez MD Bilirubin, SemiQt,Ur Negative Normal NEG [facility] Comment on above: Performed By: #### U HCG, UAMIC #### [address] [address] Analysis Analyst: Campos Avilez MD Color (U) ORANGE Abnormal YEL [facility] Comment on above: Result Comment: INTE RPRET WITH CAUTION DUE TO INTENSE COLOR OF URINE. Performed By: #### U HCG, UAMIC #### [address] [address] Analysis Analyst: Campos Avilez MD Epithelial cells LM.HPF (Urine sed) [#/Area] 0 TO 2 Normal 0-5 [facility] Comment on above: Performed By: #### U HCG, UAMIC #### [address] [address] Analysis Analyst: Campos Avilez MD Glucose Ql (U) Negative Normal NEG [facility] Comment on above: Performed By: #### U HCG, UAMIC #### [address] [address] Analysis Analyst: Campos Avilez MD Hemoglobin, Ur LARGE Abnormal NEG [facility] Comment on above: Performed By: #### U HCG, UAMIC #### [address] [address] Analysis Analyst: Campos Avilez MD Leukocyte esterase Test strip Ql (U) MODERATE Abnormal NEG [facility] Comment on above: Performed By: #### U HCG, UAMIC #### [address] [address] Analysis Analyst: Campos Avilez MD Nitrite,Ur Positive Abnormal NEG [facility] Comment on above: Performed By: #### U HCG, UAMIC #### [address] [address] Analysis Analyst: Campos Avilez MD pH (U) 5.5 [pH] Normal 5.0-8.0 [facility] Comment on above: Performed By: #### U HCG, UAMIC #### [address] [address] Analysis Analyst: Campos Avilez MD Protein Ql (U) 2+ Abnormal NEG [facility] Comment on above: Performed By: #### U HCG, UAMIC #### [address] [address] Analysis Analyst: Campos Avilez MD RBC (U) [#/Vol] 50 TO 100 Normal 0-4 [facility] Comment on above: Result Comment: Refe rence range defined for non-centrifuged specimen. Performed By: #### U HCG, UAMIC #### [address] [address] Analysis Analyst: Campos Avilez MD Specific gravity (U) [Rel density] 1.021 Normal 1.005-1.030 [facility] Comment on above: Performed By: #### U HCG, UAMIC #### [address] [address] Analysis Analyst: Campos Avilez MD Turbidity TURBID Abnormal CLEAR [facility] Comment on above: Performed By: #### U HCG, UAMIC #### [address] [address] Analysis Analyst: Campos Avilez MD Urobilinogen,Ur Normal Normal NORM [facility] Comment on above: Performed By: #### U HCG, UAMIC #### [address] [address] Analysis Analyst: Campos Avilez MD WBC (U) [#/Vol] TOO NUMEROUS TO COUNT Normal 0-5 [facility] Comment on above: Performed By: #### U HCG, UAMIC #### [address] [address] Analysis Analyst: Campos Avilez MD Amorphous sediment LM Ql (Urine sed) NOT REPORTED Normal NONE [facility] Comment on above: Performed By: #### U HCG, UAMIC #### [address] [address] Analysis Analyst: Campos Avilez MD Casts LM.LPF (Urine sed) [#/Area] NOT REPORTED Normal 0-8 [facility] Comment on above: Performed By: #### U HCG, UAMIC #### [address] [address] Analysis Analyst: Campos Avilez MD Crystals LM Nom (Urine sed) NOT REPORTED Normal NONE [facility] Comment on above: Performed By: #### U HCG, UAMIC #### [address] [address] Analysis Analyst: Campos Avilez MD Epithelial, Renal NOT REPORTED Normal 0 [facility] Comment on above: Performed By: #### U HCG, UAMIC #### [facility] [address] [place] [address] Analysis Analyst: Campos Avilez MD Mucus Strands NOT REPORTED Normal NONE [facility] Comment on above: Performed By: #### U HCG, UAMIC #### [address] [address] Analysis Analyst: Campos Avilez MD Other Observations NOT REPORTED Normal NREQ [facility] Comment on above: Performed By: #### U HCG, UAMIC #### [address] [address] Analysis Analyst: Campos Avilez MD Trichomonas NOT REPORTED Normal [facility] Comment on above: Performed By: #### U HCG, UAMIC #### [address] [address] Analysis Analyst: Campos Avilez MD Yeast LM Ql (Urine sed) NOT REPORTED Normal NONE [facility] Comment on above: Performed By: #### U HCG, UAMIC #### [address] [address] Analysis Analyst: Campos Avilez MD Urinalysis with microscopico n 07-08-2020 Amorphous, UA NOT REPORTED None [facility] [place] [place] Bacteria, UA MANY Abnormal None [facility] [place], [place] Bilirubin Urine Negative NEGATIVE [facility] [place] Casts UA NOT REPORTED [facility], [place] Color, UA ORANGE Abnormal YELLOW [facility], [place] Comment on above: INTERPRET WITH CAUTI ON DUE TO INTENSE COLOR OF URINE. Crystals, UA NOT REPORTED None /HPF [place] Epithelial Cells UA 0 TO 2 [place] Glucose, Ur Negative NEGATIVE [place] Interpretation and review of laboratory results Abnormal [place] Ketones Ql (U) Negative NEGATIVE [place] Leukocyte esterase Test strip Ql (U) MODERATE Abnormal NEGATIVE [place] Mucus, UA NOT REPORTED None [place] Nitrite, Urine Positive Abnormal NEGATIVE [place] Other Observations UA NOT REPORTED NOT REQ. [place] pH, UA 5.5 [place] Protein (U) [Mass/Vol] 2+ Abnormal NEGATIVE [place], [place] RBC (U) [#/Vol] 50 TO 100 [place], [place] Comment on above: Reference range defi sonia for non-centrifuged specimen. Renal Epithelial, UA NOT REPORTED 0 /HPF [place] Specific [place], UA 1.021 [place], [place] Trichomonas, UA NOT REPORTED None [place] Turbidity UA TURBID Abnormal CLEAR [place] Urine Hgb LARGE Abnormal NEGATIVE [place] Urobilinogen, Urine Normal Normal [place] WBC, UA TOO NUMEROUS TO COUNT [place] Yeast, UA NOT REPORTED None [place] VAGINITIS DNA PROBEon 2020 Direct Exam Positive Abnormal [place] Direct Exam Method of testing is a DNA probe intended for detection and identification of Samantha species, Gardnerella vaginalis, and Trichomonas vaginalis nucleic acid in vaginal fluid specimens from patients with symptoms of vaginitis/vaginosis. [place] Interpretation and review of laboratory results Abnormal [place] Special Requests NOT REPORTED [place] Specimen Description .VAGINA [place] Vaginitis DNA Probeon 2020 Vaginitis DNA [...] of vaginitis/vaginosis. Report Status FINAL 07/08/2020 Normal [facility] Comment on above: Performed By: #### U HCG, UAMIC #### [facility] [address] [place], [place] [id number] Analysis Analyst: Campos Avilez MD Vitamin D 25 Hydroxyon 07-08 Interpretation and review of laboratory results Abnormal [place] Vit D, 25-Hydroxy 12.1 ng/mL Low 30 - 100 ng/mL [place] Comment on above: Reference Range: Vitamin D status Range Deficiency <20 ng/mL Mild Deficiency 20-30 ng/mL Sufficiency 30-100 ng/mL Toxicity >100 ng/mL Vitamin D 25 OHon 07-08-2020 Vitamin D 25 [place] 12.1 ng/mL Low 30.0-100.0 [facility] Comment on above: Result Comment: Reference Range: Vitamin D status Range Deficiency <20 ng/mL Mild Deficiency 20-30 ng/mL Sufficiency 30-100 ng/mL Toxicity >100 ng/mL Performed By: #### U HCG, UAMIC #### [facility] [address] [place], [place] [id number] Analysis Analyst: Campos Avilez MD ABO/RHon 07-07-2020 ABO/Rh Positive [place] CBC WITH AUTO DIFFERENTIALon 07-07-2020 Basophils (Bld) [#/Vol] 0.04 10*3/uL [place] Basophils/100 WBC (Bld) 0 % 0 - 2 % [place] Differential Type NOT REPORTED [place] Eosinophils (Bld) [#/Vol] 0.10 10*3/uL [place] Eosinophils/100 WBC (Bld) 1 % 1 - 4 % [place] Erythrocyte distribution width (RBC) [Ratio] 14.0 % 11.8 - 14.4 % [place] Hematocrit (Bld) [Volume fraction] 34.3 % Low 36.3 - 47.1 % [place] Hemoglobin (Bld) [Mass/Vol] 11.1 g/dL Low 11.9 - 15.1 g/dL [place] Immature granulocytes (Bld) [#/Vol] 0 % 0 [place] Immature granulocytes (Bld) [#/Vol] 0.04 10*3/uL [place] Interpretation and review of laboratory results Abnormal [place] Lymphocytes (Bld) [#/Vol] 1.77 10*3/uL [place] Lymphocytes/100 WBC (Bld) 16 % Low 25 - 45 % [place] MCH (RBC) [Entitic mass] 26.6 pg 25 - 35 pg [place] MCHC (RBC) [Mass/Vol] 32.4 g/dL 28.4 - 34.8 g/dL [place] MCV (RBC) [Entitic vol] 82.3 fL 78 - 102 fL [place] Monocytes (Bld) [#/Vol] 0.73 10*3/uL [place] Monocytes/100 WBC (Bld) 7 % 2 - 8 % [place] Platelet mean volume (Bld) [Entitic vol] 11.8 fL 8.1 - 13.5 fL [place] Platelets (Bld) [#/Vol] NOT REPORTED [place] Platelets (Bld) [#/Vol] 288 10*3/uL [place] RBC (Bld) [#/Vol] 4.17 10*6/uL 3.95 - 5.1 1 m/uL [place] RBC morphology finding Nom (Bld) NOT REPORTED [place] Segmented neutrophils/100 WBC (Bld) 75 % High 34 - 64 % [place] Segs Absolute 8.16 High [place] WBC (Bld) [#/Vol] 0.0 10*3/uL 0.0 per 10 0 WBC [place] WBC (Bld) [#/Vol] 10.8 10*3/uL [place] WBC Morphology NOT REPORTED [place] COMPREHENSIVE METABOLIC PANE Mikie 07-07-2020 Albumin [Mass/Vol] 2.3 g/dL Low 3.5 - 5.2 g/dL [place] Albumin/Globulin [Mass ratio] 0.9 {ratio} Low [place] ALP [Catalytic activity/Vol] 41 U/L 35 - 104 U/L [place] Comment on above: SPECIMEN MODERATELY HEMOLYZED, RESULTS MAY BE ADVERSELY AFFECTED ALT [Catalytic activity/Vol] 11 U/L 5 - 33 U/L [place] Comment on above: SPECIMEN MODERATELY HEMOLYZED, RESULTS MAY BE ADVERSELY AFFECTED Anion gap [Moles/Vol] 9 mmol/L 9 - 17 mmol/L [place] AST [Catalytic activity/Vol] 28 U/L <32 [place] Comment on above: SPECIMEN MODERATELY HEMOLYZED, RESULTS MAY BE ADVERSELY AFFECTED Bilirubin Ql (U) <0.10 Low 0.3 - 1.2 mg/dL [place] Bun/Cre Ratio NOT REPORTED [place], [place] Calcium [Mass/Vol] 5.5 mg/dL Critically low 8.6 - 1 0.4 mg/dL [place] Chloride [Moles/Vol] 118 mmol/L High 98 - 10 7 mmol/L [place] CO2 [Moles/Vol] 14 mmol/L Low 20 - 31 mmol/L [place] Creatinine [Mass/Vol] 0.6 mg/dL 0.5 - 0.9 mg/dL [place] GFR NOT REPORTED >60 mL/min [place] GFR Non- Pediatric GFR requires additional information. Refer to NKDEP website for calculator. >60 mL/min [place] GFR/1.73 sq M predicted among non-blacks MDRD (S/P/Bld) [Vol rate/Area] NOT REPORTED [place] GFR/1.73 sq M predicted among non-blacks MDRD (S/P/Bld) [Vol rate/Area] [place] Comment on above: Average GFR for <20 years old not available. Chronic Kidney Disease: <60 mL/min/1.73sq m Kidney failure: <15 mL/min/1.73sq m eGFR calculated using average adult body mass. Additional eGFR calculator available at: http://www.[employer]/multiple_crcl_2012.htm Glucose [Mass/Vol] 84 mg/dL 70 - 99 mg/dL [place], [place] Interpretation and review of laboratory results Abnormal [place] Potassium [Moles/Vol] 5.1 mmol/L 3.7 - 5.3 mmol/L [place] Comment on above: SPECIMEN MODERATELY HEMOLYZED, RESULTS MAY BE ADVERSELY AFFECTED Protein [Mass/Vol] 5.0 g/dL Low 6.4 - 8.3 g/dL [place] Sodium [Moles/Vol] 141 mmol/L 135 - 144 mmol/L [place] Urea nitrogen [Mass/Vol] 10 mg/dL 6 - 20 mg/dL [place] HCG, QUANTITATIVE, on 07-07-2020 hCG Quant <1 <5 IU/L [place] Comment on above: Non-preg premeno <=5 [...] activity/Vol] 15 U/L 13 - 60 U/L [place] Vital Signs Date Time Vital Sign Value Performing Clinician Facility 10-19-2021 01:12-0400 Diastolic blood pressure 62 mm[Hg] PHYSICIAN NO [facility] 10-19-2021 01:12-0400 Heart rate 89 /min PHYSICIAN NO [facility] 10-19-2021 01:120400 Respiratory rate 18 /min PHYSICIAN NO [facility] 10-19-2021 01:120400 SaO2% (BldA) [Mass fraction] 100 % PHYSICIAN NO [facility] 10-19-2021 01:12-0400 Systolic blood pressure 130 mm[Hg] PHYSICIAN NO [facility] 10-18-2021 23:10-0400 Body height 167.64 cm PHYSICIAN NO [facility] 10-18-2021 23:10-0400 Body mass index (BMI) [Percentile] Per age and sex 99.1 % PHYSICIAN [facility] 10-18-2021 23:10-0400 Body mass index (BMI) [Ratio] 48.2 kg/m2 PHYSICIAN [facility] 10-18-2021 23:10-0400 Body weight 135.5 kg PHYSICIAN NO [facility] 10-18-2021 23:08-0400 Body temperature 98.4 [degF] PHYSICIAN NO [facility] 07-07-2020 21:51-0500 BMI (Body Mass Index) 42.93 kg/m2 Lisa Almanza [facility] 07-07-2020 21:51-0500 Body weight 120.66 kg Lisa Land [facility] , [place] 07-07-2020 21:51-0500 BP Diastolic 85 mm[Hg] Lisa Land [facility] , [place] 07-07-2020 21:51-0500 BP Systolic 136 mm[Hg] Lisa Land [facility] [place] 07-07-2020 21:51-0500 Height 167.6 cm Lisa Land [place], [place] 07-07-2020 21:51-0500 Pulse (Heart Rate) 93 /min Lisa Land [place], [place] 07-07-2020 21:51-0500 Pulse Oximetry 97 % Lisa Ellis [facility] [place] 07-07-2020 21:51-0500 Respiratory Rate 18 /min Lisa Ellis [facility] 07-07-2020 21:48-0500 Body Temperature 97.11 [degF] Lisa Land [place] Encounters Encounter Date Encounter Type Care Provider Facility Start: 07-03-2023 End: 07-03-2023 ambulatory Not Available Start: 07-03-2023 End: 07-03-2023 Office outpatient visit 5 minutes [facility] Benja Nurse [facility] Comment on above: [place]: 8w0d Start: 08-30-2022 End: 08-30-[address] COLT TAYLOR . Facility: Start: 06-28-2022 End: 06-28-[address] COLT TAYLOR . Facility:[facility] Start: 04-01-2022 End: 04-02-[address] DELON NAJERA . Facility:[facility] Start: 10-19-2021 End: 10-19-2021 Emergency department patient visit PHYSICIAN NO FAMILY Facility:[facility] Start: 10-18-2021 End: 10-19-2021 Emergency department patient visit PHYSICIAN NO [facility] Start: 07-07-2020 End: 07-08-2020 Emergency department patient visit [facility] Start: 07-07-2020 End: 07-08-2020 Emergency department patient visit Lisa Land Work Phone: [facility] ED Comment on above: BV (bacterial vagino sis) (Primary Dx); Vaginal bleeding; Hypomagnesemia; Vitamin D deficiency; Acute cystitis with hematuria Procedures Date Procedure Procedure Detail Performing Clinician Start: 07-03-2023 End: 07-03-2023 Urnls dip stick/tablet rgnt non-auto w/o micrscp Ravi Yousif DO Work Phone: Start: 10-19-2021 Mycology culture PHYSIC EDDI NO FAMILY Start: 10-19-2021 Trichomonas vaginali s detection PHYSICIAN NO FAMILY Start: 10-19-2021 Mycology culture PHYSIC EDDI NO FAMILY Start: 10-19-2021 Trichomonas vaginali s detection PHYSICIAN NO FAMILY Start: 07-08-2020 Calcium ionized Angela Land Work Phone: Start: 07-08-2020 Us transvaginal Taylor Stoner Work Phone: Start: 07-07-2020 [...] Work Phone: Start: 07-07-2020 Assay of lipase Brianin e Ida Stoner Work Phone: Start: 07-07-2020 Assay of magnesium [facility] line Ida Stoner Work Phone: Start: 07-07-2020 Assay of phosphorus inorganic Brenda Stoner Work Phone: Start: 07-07-2020 Blood count complete auto&auto difrntl wbc Brenda Stoner Work Phone: Start: 07-07-2020 Comprehensive metabo lic panel Brenda Stoner Work Phone: Start: 07-07-2020 Gonadotropin chorion ic quantitative Brenda Stoner Work Phone: Plan of Treatment Date Care Activity Detail Author Start: 07-17-2023 End: 07-17-2023 Patient encounter procedure 07/17/2023 11:10 AM EST Routine [facility] [address] [place] [address] Ravi Yousif, DO [address] [place] [address] [facility] Start: 07-03-2023 End: 07-03-2024 ABO/Rh ABO/Rh Lab Routine Missed menses Expected: 07/03/2023 (Approximate), Expires: 07/03/2024 [facility] Comment on above: Expected: 07/03/2023 (Approximate), Expires: 07/03/2024 Start: 07-03-2023 End: 07-03-2024 Blood type and Indirect antibody screen panel - Blood Type and screen Lab Routine Missed menses Expected: 07/03/2023 (Approximate), Expires: 07/03/2024 [facility] Work Phone: Comment on above: Expected: 07/03/2023 (Approximate), Expires: 07/03/2024 Start: 07-03-2023 End: 07-03-2024 US Pelvis transvaginal US OB transvaginal Imaging Routine Missed menses Expected: 07/03/2023 (Approximate), Expires: 07/03/2024 [facility] Comment on above: Expected: 07/03/2023 (Approximate), Expires: 07/03/2024 Start: 02-01-2020 Influenza vaccination Flu vaccine (# 1) [place], [place] Start: 2018 Meningococcal (ACWY) vaccine (1 - 2-dose series) Meningococcal (ACWY) vaccine (1 - 2-dose series) [place], [place] Start: 2018 Screening for Chlamy nancy trachomatis Chlamydia screen [place] Start: 2017 HIV screening HIV screen [place], [place] Start: 2013 HPV vaccine (1 - 2-d ose series) HPV vaccine (1 - 2-dose series) [place] Start: 2009 DTaP/Tdap/Td vaccine (1 - Tdap) DTaP/Tdap/Td vaccine (1 - Tdap) [place] Start: 2003 Hepatitis A vaccine (1 of 2 - 2-dose series) Hepatitis A vaccine (1 of 2 - 2-dose series) [place] Start: 2003 Measles,Mumps,Rubell a (MMR) vaccine (1 of 2 - Standard series) Measles,Mumps,Rubella (MMR) vaccine (1 of 2 - Standard series) [place] Start: 2003 Varicella vaccine (1 of 2 - 2-dose childhood series) Varicella vaccine (1 of 2 - 2-dose childhood series) [place] Start: 2002 Hepatitis B vaccine (1 of 3 - 3-dose primary series) Hepatitis B vaccine (1 of 3 - 3-dose primary series) [place] Start: 2002 Hepatitis C screening Hepatitis C sc cezarn [place] Bacteria identified in Urine by Culture Urine culture Microbiology Routine Missed menses Ordered: 07/03/2023 [facility] Comment on above: Ordered: 07/03/2023 End: 07-07-2020 C.trachomatis N.gonorrhoeae DNA C.trachomatis N.gonorrhoeae DNA Microbiology STAT One Time for 1 Occurrences starting 07/07/2020 until 07/07/2020 [place] Comment on above: One Time for 1 Occur rences starting 07/07/2020 until 07/07/2020 C.trachomatis N.gonorrhoeae DNA C.trachomatis N.gonorrhoeae DNA Microbiology Stat [employer] Label print 07/07/2020 11:20 PM [place] End: 07-08-2020 Calcium, Ionized Calcium, Ionized Lab STAT One Time for 1 Occurrences starting 07/08/2020 until 07/08/2020 [place] Comment on above: One Time for 1 Occur rences starting 07/08/2020 until 07/08/2020 CBC W Auto Different ial panel - Blood CBC and differential Lab Routine Missed menses Ordered: 07/03/2023 [facility] Comment on above: Ordered: 07/03/2023 End: 07-07-2020 Culture, Urine Culture, Urine Microbiology STAT One Time for 1 Occurrences starting 07/07/2020 until 07/07/2020 [place] Comment on above: One Time for 1 Occur rences starting 07/07/2020 until 07/07/2020 Culture, Urine Culture, Urine Microbiology Stat [employer] Label print 07/07/2020 10:56 PM [place] Hemoglobin A1c measurement Hemoglobin A1c Lab Routine Missed menses Ordered: 07/03/2023 [facility] Comment on above: Ordered: 07/03/2023 Hepatitis B virus surface Ag [Presence] in Serum or Plasma by Immunoassay Hepatitis B surface antigen Lab Routine Missed menses Ordered: 07/03/2023 [facility] Comment on above: Ordered: 07/03/2023 Hepatitis C virus Ab [Presence] in Serum or Plasma by Immunoassay Hepatitis C antibody Lab Routine Missed menses Ordered: 07/03/2023 [facility] Comment on above: Ordered: 07/03/2023 HIV-1/HIV-2 antigen/antibody combination immunoassay HIV-1 and HIV-2 antibodies Lab Routine Missed menses Ordered: 07/03/2023 [facility] Comment on above: Ordered: 07/03/2023 Patient Education Common Breast Problems Pelvic Pain ED [facility] Work Phone: Patient referral [facility] Work Phone: Reagin Ab [Presence] in Serum by RPR RPR Lab Routine Missed menses Ordered: 07/03/2023 [facility] Comment on above: Ordered: 07/03/2023 Rubella antibody, IgG Rubella an tibody, IgG Lab Routine Missed menses Ordered: 07/03/2023 [facility] Comment on above: Ordered: 07/03/2023 End: 07-07-2020 US DUP ABD PEL RETRO SCROT LIMITED US DUP ABD PEL RETRO SCROT LIMITED Imaging STAT Once for 1 Occurrences starting 07/07/2020 until 07/07/2020 [place] Comment on above: Once for 1 Occurrenc es starting 07/07/2020 until 07/07/2020 US DUP ABD PEL RETRO SCROT LIMITED US DUP ABD PEL RETRO SCROT LIMITED Imaging STAT 07/08/2020 12:13 AM EST [place] Payers Date Payer Category Payer Unknown BCBS BCBS [id number] 2023-Present [phone] [address] [place] [address] [id number] 2023 Unknown [id number] 2021 Self-pay [id number] 2002 Unknown [id number] 2002 Unknown [id number] 2002 Unknown [id number] 2002 Unknown [id number] 1959 Medicaid 2063 1959 Unknown [id number] Unknown [id number] Social History Date Type Detail Facility Start: 07-07-2020 [facility] Start: 07-07-2020 Tobacco use and exposure Never used [place] Start: 2002 Sex Assigned At Not on file [place] Exposure to SARS-CoV-2 (event) Not sure [place] Start: 10-19-2021 Tobacco smoking status RIIS Smoker (finding) [facility] Start: 2002 Sex Assigned At Female F [facility] Tobacco smoking status [facility] Tobacco smoking consumption unknown [facility] Start: 05-22-2023 [facility] Gender identity Not on file [facility] History of Present illness Narrative 07-03-2023 Sarina Kilgore LPN - 07/03/2023 1:00 PM EST Note Date & Type Note Facility 07-03-2023 History of Presen t illness Narrative Reason for Appointment: Patient ID: Teodoro Upton is a 23 y.o. female who presents for Amenorrhea Patient presents today for a Nurse OB Intake appointment. Patient is 8w0d with a Estimated Date of Delivery: 02/12/24 OB History Para Term AB Living 1 SAB IAB Ectopic Multiple Live Births # Outcome Date GA Lbr Tera/2nd Weight Sex Delivery Anes PTL Lv 1 Current Current Medications: currently has no medications in their medication list. Medical History: Active Ambulatory Problems Diagnosis Date Noted No Active Ambulatory Problems Resolved Ambulatory Problems Diagnosis Date Noted No Resolved Ambulatory Problems Past Medical History: Diagnosis Date Asthma (CMS/HCC) No family history on file. Social History Tobacco Use Smoking status: Not on file Smokeless tobacco: Not on file Substance Use Topics Alcohol use: Not on file Drug use: Not on file History reviewed. No pertinent surgical history. Not on File Vitals: There is no height or weight on file to calculate BMI. BP: Patient's last menstrual period was 05/08/2023. Assessment/Plan Diagnoses and all orders for this visit: Missed menses - Type and screen; Future - ABO/Rh; Future - CBC and differential - Hemoglobin A1c - RPR - Rubella antibody, IgG - Hepatitis B surface antigen - Hepatitis C antibody - HIV-1 and HIV-2 antibodies - Urine culture - US OB transvaginal; Future - POCT , urine manually resulted - POCT urinalysis dipstick manually resulted Nurse Note: Pt presents today for first OB visit. Reviewed history in great detail. Reviewed risks, pt signed consents and pt desires testing in both trimesters. Pt has no complaints. Pt advised to drink 6-8 glasses of water a day, no raw or undercooked meat, stay away from [facility], do not change litter boxes, eat 6 small meals a day. Went over do's and don'ts during . Pt was given labs. All questions and concerns answered. Pt to return in 4 weeks scheduled ob appt. Follow Up: Patient is to have labs drawn at directed and return to office for initial OB appointment with provider. Patient may call office as needed with any concerns or questions. Nurse Visit Completed by: Sarina Kilgore LPN documented in this encounter [facility] Healthcare Evaluation note Note Date & Type Note Facility Evaluation note No assessment information availa ble [facility] Work Phone: Evaluation note Note Date & Type Note Facility Evaluation note Diagnosis Missed menses Nausea and vomiting, unspecified vomiting type documented in this encounter [facility] Healthcare Hospital Discharge instructions Note Date & Type Note Facility Hospital Discharge instructions Additional Instructions Please follow up as we discussed so you can have your concerns further evaluated. [facility] Work Phone: Discharge Instructions * Instructions* Brenda Stoner DO - 07/08/2020 [facility] ED Clinic List Healthcare Providers Services Day of Week/ Hours [place] for [facility] Services [address] [facility] Pediatric Primary Care Adult Primary Care HOSPITAL SECURITY OFFICER//Specialty Clinics Friday 8:00a 4:30p [address] Adult Medicine, Pediatrics, HOSPITAL SECURITY OFFICER Friday 8:30a 4:30p [facility] Surgery [address] [facility] Friday 8:30a 11:00a [facility] [address] [facility] Adult Internal Medicine ([facility]) HOSPITAL SECURITY OFFICER Clinic Pediatric Clinic Friday, Friday, , Friday 8:00a 4:30p Friday 1:00p 4:30p Friday, Friday, 8:00a 5:00p; Friday 8:00a 12:30p Friday 1p 4p Friday, Friday, , Friday 8:30a 4:15p Wed 12:30p 4:15p [facility] Department [place] [id number] [facility] Pediatric Primary Care Adult Primary Care OB/ Friday, Friday 8a 12p 8a 4:45p [facility] [address] [place] [address] [place] [address] # Pre & Post Adoption Counseling Support / nutrition Care Reward Incentive Program [facility] Fri, , Fri, Fri 10:00a 4:30p Thur 10:00a 7:30p [address] [place] Location Friday - Friday 10a 4:30p [facility] HOSPITAL SECURITY OFFICER [address] Adult Internal Medicine [address] [facility] Pediatrics [address] [facility] Neuro / Headache [address] [facility] Friday 8:30a 5p [facility] Practice [address] [facility] Fri, , , Fri 9:00a 4:30p Wed 1:00p 4:30p [facility] [address] [facility] [address] Community Hospital Friday 8:30a 5:00p [facility] Specialty Clinics [address] [facility] [address] Burn/Plastic, ENT, GI, Orthopedics, Surgical / Trauma, Urology, Vascular Friday 8:00 4:30p Call for an appointment [facility] [address] [facility] Adult Medicine, Eye Clinic, Dental Patient must be certified homeless Under age 18 not accepted Friday 8:00 4:30p [facility] [address] [facility] OB Friday, Friday, Friday, Friday 9a 5p 9a 6p Friday (OB only) [facility] [address] [facility] OB/ Friday 11a 7p , Fri, 9a 5p Friday 8a 4p 1st Friday 9a 1p Podiatry Clinic [address] [facility] Building [address] Friday 8:00 4:[address] Free nurse visits Maribel programs Counseling Class Call or walk in [facility] [address] Various Clinics 8a 5:30p [facility] [address] [facility], [address] Family Practice Friday 8a 4:30p [facility] [address] [place] [address] [id number] [place], [place] [id number] Friday 8a 4:30p Friday 8a 4:30p 8a 8p Outpatient Clinics [facility] [address] [facility] Friday 9a 5p Diabetic Education Services Call for an appointment [facility] Heart Failure Clinic [address] [facility] Friday 8:30a 4p Dental Services [facility] [address] [facility] Must have source of income and must bring (2) recent check stubs to appointment By appointment only [facility] [address] Patient must be homeless, call for eligibility guidelines. Under age 18 NOT accepted Days and hours vary (Doors open at 8:30a day of week varies) Call for an appointment Miscellaneous Information [facility] Call for Help [phone] Call for an appointment H.E.L.P (Hospital Eligibility Link Program) toll free For financial assistance * Attachments The following attachments cannot be sent through Care Everywhere. * Bacterial Vaginosis (Lebanese) * UTI (Urinary Tract Infection): Female (Lebanese) * Vitamin D: General Info (Lebanese) documented in this encounter Assessments Diagnosis BV [...] had been spotting, now today heavier bleeding Reason Comments Amenorrhea Ordered Prescriptions (unrec ognized section and content) [...] section and content) DATE CREATED AUTHOR 07/16/2020 [facility] DATE CREATED AUTHOR AUTHOR'S ORGANIZ ATION 09/07/2022 [facility] DATE CREATED AUTHOR AUTHOR'S ORGANIZ ATION 03/13/2023 [facility] DATE CREATED AUTHOR AUTHOR'S ORGANIZ ATION 07/05/2023 [facility] dical Specialists EPIC Care Teams (unrecognized sec tion and content) [...] BE BASED ON THE PRIMARY CLINICAL RECORDS. [employer] provides no warranty or guarantee of the accuracy or completeness of information in this document.
[2023-07-08 13:19] LABS: Basophils Percent Auto 0.4 % (0.2-2.0); Eosinophils Absolute Auto 0.1 10^3/uL (0.0-0.7); Eosinophils Percent Auto 0.9 % (0.9-7.0); Hematocrit 37.8 % (36.0-48.0); Hemoglobin 12.4 g/dL (12.0-16.0); Immature Granulocytes Abs Auto 0.02 10^3/uL (0.00-0.03); Immature Granulocytes Pct Auto 0.2 % (0.0-0.5); Lymphocytes Absolute Auto 2.1 10^3/uL (1.2-3.8); Lymphocytes Percent Auto 23.6 % (20.5-60.0); Mean Corpuscular HGB Conc 32.8 g/dL (29.9-35.2); Mean Corpuscular Hemoglobin 27.6 pg (26.7-34.0); Mean Corpuscular Volume 84.2 fL (81.0-99.0); Mean Platelet Volume 11.4 fL (9.5-13.5); Monocytes Absolute Auto 0.6 10^3/uL (0.3-0.8); Monocytes Percent Auto 6.5 % (1.7-12.0); Neutrophils Absolute Auto 6.2 10^3/uL (1.4-6.5); Neutrophils Percent Auto 68.4 % (43.0-75.0); Platelet Count 346 10^3/uL (150-450); Red Blood Count 4.49 10^6/uL (4.20-5.40); Red Cell Distribution Width 14.2 % (11.0-15.0)
[2023-07-08 14:17] LABS: Estimated Average Glucose 100 mg/dL; Glycohemoglobin A1C 5.1 % (4.5-6.2)
[2023-07-09 07:08] LABS: Rubella Antibodies, IgG <0.90 index (Immune >0.99)
[2023-07-09 11:09] LABS: Rapid Plasma Reagin, Quant Non Reactive titer (NonRea<1:1)
[2023-07-10 04:08] LABS: HBsAg Screen Negative (Negative); HCV Ab Non Reactive (Non Reactive)
[2023-07-10 06:09] LABS: HIV Ab/p24 Ag Screen Non Reactive (Non Reactive)
== END 2023-07-08 12:09 | disposition home or self-care (01) ==
LOC: LAB 12:10
PROVIDERS: Visit Provider Obstetrics & Gynecology
DX: N92.6 Irregular menstruation, unspecified (principal)
CPT/HCPCS: 36415; 83036; 85025; 86592; 86762; 86803; 86850; 86900; 86901; 87086; 87340; 87389

== ENCOUNTER 2023-07-18 15:03 | Outpatient (OUT) | payer BC, SELFPAY ==
--- NOTE | 2023-07-18 15:08 | US_ITS ---
The [address] [address] Patient Name: TEODORO HERNANDES MRN: [id number] date: 2000 Sex: F Assigned Patient Location: Current Patient Location: Accession/Order Number: [id number] Exam Date: 07/18/2023 16:30 Report Date: 07/19/2023 04:13 At the request of: CHUNG MAGDALENO Procedure: US OB <= 14 weeks fetus EXAMINATION: US OB <= 14 weeks fetus HISTORY: with uncertain viability O36.8X0 ; vaginal bleeding COMPARISON: 07/03/2023 ultrasound OB transvaginal FINDINGS: GESTATIONAL SAC: Present and normal appearing. YOLK SAC: Present and normal appearing. POLE: Present and normal appearing. CARDIAC: Present. UTERUS: Normal size and appearance. OVARIES: Right: Normal. Left: Not seen. CERVIX: 4.7 cm in length and closed. CUL-DE-SAC: Normal. OTHER: None. AGE BY LMP: 10 weeks 1 day ROGER BY LMP: 02/12/2024 AGE BY US CRL: 9 weeks 6 days ROGER BY US CRL: 02/14/2024 US/US OB <= 14 weeks fetus IMPRESSION: 1. Single live intrauterine . No findings to suggest impending . Electronically authenticated by: ZURI VITALE Date: 07/19/2023 04:13
== END 2023-07-18 15:04 | disposition home or self-care (01) ==
LOC: US 15:04
PROVIDERS: Visit Provider Obstetrics & Gynecology
DX: O36.80X1 Pregnancy with inconclusive fetal viability, fetus 1 (principal); Z3A.09 9 weeks gestation of pregnancy
CPT/HCPCS: 76801

== ENCOUNTER 2023-07-25 10:30 | Emergency (ER) | payer BC, SELFPAY ==
[2023-07-25 10:33] VITALS: BP 116/70; PULSE 95; RESP 18; TEMP 36.7; O2SAT 99; BMI 45.0
--- OUTSIDE RECORDS SUMMARY | 2023-07-25 10:37 | XMS_ITS | CCD ---
Demographics Address [address] [place] [address] Preferred Language en Marital Status Single Congregation Affiliation Unknown Race Unknown Ethnic Group Not or Lati no Author Name Unknown Address [address] [place] [address] Organization [facility] Care Team Providers Care Splitter Machine Name Role Phone Unavailable Primary Care Provider DAVID Desir Attending Unavailable NO FAMILY, PHYSICIAN Primary Care Provider Unava ilable MD Anders Sesay Jr Emergency Provider PAY ., DR GREGORY Admitting Unavailable PAY ., DR GREGORY Consulting Unavailable REQUEST, DR IBRAHIM LISTED Primary Care Unavaila ble PAY ., DR GREGORY Attending Unavailable SEKOUPADDY BOWMAN Consulting Unavailable PAY ., DR GREGORY Attending Unavailable PAY ., DR GREGORY Admitting Unavailable GRECHNY ., AMAYA FRANCISCO Consulting Ave NGUYEN, DR IBRAHIM LISTED Primary Care Unavaila ble MARKER ., DR JERINGAN Attending Unavailable MARKER ., DR JERNIGAN Admitting Unavailable MISC, DR VAN Primary Care Unavailable MARKER ., DR JERNIGAN Consulting Unavailable STRAWSER, LUH Consulting Unavailable NO FAMILY, PHYSICIAN Primary Care Unavailable Anders Sesay Jr Attending Unavailable Anders Sesay Jr Admitting Unavailable Unavailable Primary Care Provider CHUNG Cortes Attending Unavailable Allergies Allergy Classification Reported Allergen(s) Allergy Type Date of Onset Reaction(s) Facility (1 source) Latex Propensity to adverse reactions to drug 07-07-2020 [facility] [place] Medications Current Medications Medication Drug Class(es) Dates [...] 07-08-2020 Vitamin D, Cho lecalciferol, 50 MCG (2000 UT) CAPS Take 2,000 Units by mouth daily 30 capsule 0 07/08/2020 Active Start: 07-08-2020 Vitamin D, Cho lecalciferol, 50 MCG (2000 UT) CAPS Take 2,000 Units by mouth [...] days 40 tablet 0 07/03/2023 07/13/2023 Active Zryrbtwe-Pkm-Xo-FA ( 1 + IRON PO) (4 sources) Dpwnpgxv-Evm-Qt-FA ( 1 + IRON PO) Take by mouth 0 Active promethazine hydrochloride 12.5 mg oral tablet (2 sources) Phenothiazine Start: 07-17-2023 End: 10-15-2023 take 1 tablet by mouth every six hours as needed for nausea and nausea, then take 1 tablet by mouth every six hours as needed for nausea and nausea promethazine (Phenergan) 12.5 MG tablet Indications: First trimester Take 1 tablet (12.5 mg) by mouth every 6 (six) hours if needed for nausea or vomiting Take 1 tablet by mouth every 6 hours as needed for nausea. 30 tablet 2 07/17/2023 10/15/2023 Active Completed/Discontinued Medications Medication Drug Class(es) Dates [...] GT TOE INT ISRRAEL] Onset: 09-03-2022 Episodic Hemorrhage during ; abruptio placenta; placenta previa (4 sources) Bleeding from female genital tract during ; Translations: [Antepartum hemorrhage, unspecified, unspecified trimester] 07-17-2023 Episodic Inflammatory diseases of female pelvic organs [...] deficiency; Translations: [Vitamin D deficiency] Chronic Other complications of (2 sources) Uncertain viability of ; Translations: [ with inconclusive viability, not applicable or unspecified] 07-17-2023 Episodic Other connective tissue disease (3 sources) Pain in right toe(s); Translations: [PAIN IN RIGHT TOES] Onset: 08-30-2022 Episodic Other female genital disorders (1 source) Vaginal bleeding; Translations: [Vaginal bleeding] Episodic Other nutritional; endocrine; and metabolic disorders (1 source) Hypomagnesemia; Translations: [Hypomagnesemia] Chronic Other and delivery including normal (2 sources) First trimester ; Translations: [Encounter for supervision of normal , unspecified, first trimester] 07-15-2023 Episodic Other screening for suspected conditions (not mental [...] Test Name Value Interpretation Reference Range Facility Urinalysis macro (dipstick) panel (U)on 07-17-2023 Bilirubin, UA Negative Negative - 4(70) +++ mg/dL [facility] Blood, UA Negative Negative - 50 William/mcL [facility] Clarity, UA Clear [facility] Color, UA Yellow [facility] Glucose, UA Negative Negative - 1999(110) ++++ mg/dL [facility] Interpretation and review of laboratory results Abnormal [facility] Ketones, UA Negative Negative - 160(16) ++++ mg/dL [facility] Leukocytes, UA Positive Negative - 500+++ Gerald/mcL [facility] Nitrite, UA Negative Negative - Positive [facility] pH, UA 7.0 5 - 9 [facility] Protein, UA Negative Negative - 1999(20) ++++ mg/dL [facility] Spec Grav, UA 1.020 1 - 1.03 [facility] Urobilinogen, UA 0.2 0.2 - 12 mg/dL [facility] HCG ( test) Ql (U)o n 07-03-2023 Interpretation and review of laboratory results Abnormal [facility] Preg Test, Ur Negative [facility] Urinalysis macro (dipstick) panel (U)on 07-03-2023 Bilirubin, UA Negative Negative - 4(70) +++ mg/dL [facility] Blood, UA Negative Negative - 50 William/mcL [facility] Clarity, UA Clear [facility] Color, UA Yellow [facility] Glucose, UA Negative Negative - 1999(110) ++++ mg/dL [facility] Interpretation and review of laboratory results Normal [facility] Ketones, UA Negative Negative - 160(16) ++++ mg/dL [facility] Leukocytes, UA Negative Negative - 500+++ Gerald/mcL [facility] Nitrite, UA Negative Negative - Positive [facility] pH, UA 5.5 5 - 9 [facility] Protein, UA Negative Negative - 1999(20) ++++ mg/dL [facility] Spec Grav, UA 1.010 1 - 1.03 [facility] Urobilinogen, UA 1.0 0.2 - 12 mg/dL [facility] XR FOOT RT MIN 3 VIEWSon XR [...] PADDY SAPP Date: 2022-08-30 14:42 Normal [facility] CBC AUTO DIFFon 06-28-2022 BASO # 0.0 103/ul Normal 0.0-0.1 [facility] Comment on above: Performed By: #### C BC #### [facility] [address] [place] [address] Dr. Jerald Poon Basophils/100 WBC (Bld) 0.3 % Normal 0.2-2.0 [facility] Comment on above: Performed By: #### C BC #### [facility] [address] [place] [address] Dr. Jerald Poon EO # 0.1 103/ul Normal 0.0-0.7 [facility] Comment on above: Performed By: #### C BC #### [facility] [address] [address] [address] Jerald Poon Eosinophils/100 WBC (Bld) 1.1 % Normal 0.9-7.0 [facility] Comment on above: Performed By: #### C BC #### [facility] [address] [place] [address] Dr. Jerald Poon Erythrocyte distribution width (RBC) [Ratio] 14.5 % Normal 11.0-15.0 [facility] Comment on above: Performed By: #### C BC #### [facility] [address] [place] [address] Dr. Jerald Poon Hematocrit (Bld) [Volume fraction] 36.7 % Normal 36.0-48.0 [facility] Comment on above: Performed By: #### C BC #### [facility] [address] [place] [address] Dr. Jerald Poon Hemoglobin (Bld) [Mass/Vol] 13.0 g/dL Normal 12.0-16.0 [facility] Comment on above: Performed By: #### C BC #### [facility] [address] [place] [address] Dr. Jerald Poon IG # 0.04 10e3/ul Critically high 0.00-0.[address] [facility] Comment on above: Performed By: #### C BC #### [facility] [address] [place] [address] Dr. Jerald Poon IG % 0.3 % Normal 0.0-0.5 [facility] Comment on above: Performed By: #### C BC #### [facility] [address] [place] [address] Dr. Jerald Poon LYMPH # 3.0 103/ul Normal 1.2-3.8 [facility] Comment on above: Performed By: #### C BC #### [facility] [address] [place] [address] Dr. Jerald Poon Lymphocytes/100 WBC (Bld) 26.2 % Normal 20.5-60.0 [facility] Comment on above: Performed By: #### C BC #### [facility] [address] [place] [address] Dr. Jerald Poon MANUAL DIFF REQ NO Normal [facility] Comment on above: Performed By: #### C BC #### [facility] [address] [place] [address] Dr. Jerald Poon MCH (RBC) [Entitic mass] 27.1 pg Normal 26.7-34.0 [facility] Comment on above: Performed By: #### C BC #### [facility] [address] [place] [address] Dr. Jerald Poon MCHC (RBC) [Mass/Vol] 35.4 g/dL Critically high 29.9-35.2 [facility] Comment on above: Performed By: #### C BC #### [facility] [address] [address] [address] Jerald Poon MCV (RBC) [Entitic vol] 76.6 fL Critically low 81.0-99.0 [facility] Comment on above: Performed By: #### C BC #### [facility] [address] [place] [address] Dr. Jerald Poon MONO # 0.8 103/ul Normal 0.3-0.8 [facility] Comment on above: Performed By: #### C BC #### [facility] [address] [place] [address] Dr. Jerald Poon Monocytes/100 WBC (Bld) 7.0 % Normal 1.7-12.0 [facility] Comment on above: Performed By: #### C BC #### [facility] [address] [place] [address] Dr. Jerald Poon NEUT # 7.5 103/ul Critically high 1.4-6.5 [facility] Comment on above: Performed By: #### C BC #### [facility] [address] [place] [address] Dr. Jerald Poon Neutrophils/100 WBC (Bld) 65.1 % Normal 43.0-75.0 [facility] Comment on above: Performed By: #### C BC #### [facility] [address] [place] [address] Dr. Jerald Poon Platelet mean volume (Bld) [Entitic vol] 10.0 fL Normal 9.5-13.5 [facility] Comment on above: Performed By: #### C BC #### [facility] [address] [place] [address] Dr. Jerald Poon PLT 387 103/ul Normal 150-450 [facility] Comment on above: Performed By: #### C BC #### [facility] [address] [place] [address] Dr. Jerald Poon RBC 4.79 106/ul Normal 4.20-5.40 [facility] Comment on above: Performed By: #### C BC #### [facility] [address] [place] [address] Dr. Jerald Poon WBC 11.6 103/ul Critically high 4.0-11.0 [facility] Comment on above: Performed By: #### C BC #### [facility] [address] [place] [address] Dr. Jerald Poon CULTURE URINEon 06-28-2022 CULTURE URINE Culture Observations: LIGHT GROWTH OF MIXED GENITAL ZACARIAS. NO POTENTIAL PATHOGENS SEEN. Normal [facility] Comment on above: Performed By: #### U RCX #### [facility] [address] [place] [address] Dr. Jerald Poon ER URINE PROFILEon 3 Bilirubin Ql (U) Negative Normal NEGATIVE [facility] Comment on above: Performed By: #### U MICRO, ERUR #### [facility] [address] [place] [address] Dr. Jerald Poon Clarity (U) CLEAR Normal CLEAR [facility] Comment on above: Performed By: #### U MICRO, ERUR #### [facility] [address] [place] [address] Dr. Jerald Poon Color (U) YELLOW Normal YELLOW [facility] Comment on above: Performed By: #### U MICRO, ERUR #### [facility] [address] [place] [address] Dr. Jerald CEBALLOS A micrscopic examination will be performed if indicated. Normal [facility] Comment on above: Performed By: #### U MICRO, ERUR #### [facility] [address] [place] [address] Dr. Jerald Poon Glucose Ql (U) Negative Normal NEGATIVE [facility] Comment on above: Performed By: #### U MICRO, ERUR #### [facility] [address] [address] [address] Jerald Poon Hemoglobin Ql (U) Negative Normal NEGATIVE [facility] Comment on above: Performed By: #### U MICRO, ERUR #### [facility] [address] [address] [address] Jerald Poon Ketones Ql (U) 40 mg/dl Abnormal NEGATIVE [facility] Comment on above: Performed By: #### U MICRO, ERUR #### [facility] [address] [place] [address] Dr. Jerald Poon LEUKOCYTES TRACE Abnormal NEGATIVE [facility] Comment on above: Performed By: #### U MICRO, ERUR #### [facility] [address] [place] [address] Dr. Jerald Poon Nitrite Ql (U) Negative Normal NEGATIVE [facility] Comment on above: Performed By: #### U MICRO, ERUR #### [facility] [address] [place] [address] Dr. Jerald Poon pH (U) 6.0 [pH] Normal 5-9 [facility] Comment on above: Performed By: #### U MICRO, ERUR #### [facility] [address] [place] [address] Dr. Jerald Poon SPEC GRAVITY >=1.030 Abnormal 1.005-<=1.025 [facility] Comment on above: Performed By: #### U MICRO, ERUR #### [facility] [address] [address] [address] Jerald Poon UA PROTEIN Negative Normal NEGATIVE/ TRACE [facility] Comment on above: Performed By: #### U MICRO, ERUR #### [facility] [address] [place] [address] Dr. Jerald Poon UR MICRO IND INDICATED Normal [facility] Comment on above: Performed By: #### U MICRO, ERUR #### [facility] [address] [place] [address] Dr. Jerald Poon Urobilinogen Qn (U) 0.2 {Lyly'U}/dL Normal 0.2 - 1. 0 [facility] Comment on above: Performed By: #### U MICRO, ERUR #### [facility] [address] [place] [address] Dr. Jerald Poon PREG QUANT HCGon 06-28-2022 HCG QUANT <1 Normal [facility] Comment on above: Performed By: #### P REGQNT #### [facility] [address] [place] [address] Dr. Jerald Poon HCG RANGE SEE BELOW Normal [facility] Comment on above: Result Comment: 5-50 0.2-1 WEEK 50-500 1-2 WEEKS 100-5,000 2-3 WEEKS 500-10,000 3-4 WEEKS 1,000-50,000 4-5 WEEKS 10,000-100,000 5-6 WEEKS 15,000-200,000 6-8 WEEKS 10,000-100,000 2-3 MONTHS Performed By: #### P REGQNT #### [facility] [address] [place] [address] Dr. Jerald Poon PROF CHEM 8 (BAS METB)on Anion gap [Moles/Vol] 14.0 mmol/L Normal [facility] Comment on above: Performed By: #### C BC #### [facility] [address] [place] [address] Dr. Jerald Poon Calcium [Mass/Vol] 9.6 mg/dL Normal 8.5-10.1 [facility] Comment on above: Performed By: #### C BC #### [facility] [address] [place] [address] Dr. Jerald Poon Chloride [Moles/Vol] 101 mmol/L Normal 98-107 [facility] Comment on above: Performed By: #### C BC #### [facility] [address] [place] [address] Dr. Jerald Poon CO2 [Moles/Vol] 25.4 mmol/L Normal 21.0-32.0 [facility] Comment on above: Performed By: #### C BC #### [facility] [address] [place] [address] Dr. Jerald Poon Creatinine [Mass/Vol] 0.92 mg/dL Normal 0.55-1.02 [facility] Comment on above: Performed By: #### C BC #### [facility] [address] [place] [address] Dr. Jerald Poon EGFR-AF AFGHAN >60 Normal >=60 [facility] Comment on above: Performed By: #### C BC #### [facility] [address] [place] [address] Dr. Jerald Poon EGFR-NON AF AFGHAN >60 Normal >=60 [facility] Comment on above: Performed By: #### C BC #### [facility] [address] [place] [address] Dr. Jerald Poon Glucose [Mass/Vol] 101 mg/dL Normal 74-106 [facility] Comment on above: Performed By: #### C BC #### [facility] [address] [place] [address] Dr. Jerald Poon Potassium [Moles/Vol] 3.4 mmol/L Critically low 3.5-5.1 [facility] Comment on above: Performed By: #### C BC #### [facility] [address] [place] [address] Dr. Jerald Poon Sodium [Moles/Vol] 137 mmol/L Normal 136-145 [facility] Comment on above: Performed By: #### C BC #### [facility] [address] [place] [address] Dr. Jerald Poon Urea nitrogen [Mass/Vol] 11.0 mg/dL Normal 7.0-18.0 [facility] Comment on above: Performed By: #### C BC #### [facility] [address] [place] [address] Dr. Jerald Poon Urea nitrogen/Creatinine [Mass ratio] 12.0 mg/mg Normal [facility] Comment on above: Performed By: #### C BC #### [facility] [address] [place] [address] Dr. Jerald Poon TSHon 06-28-2022 TSH 1.319 uIU/mL Normal 0.358-3.740 [facility] Comment on above: Performed By: #### C BC #### [facility] [address] [place] [address] Dr. Jerald Poon URINE MICROSCOPIC ONLYon BACTERIA SMALL Abnormal NONE SEEN [facility] Comment on above: Performed By: #### U MICRO, ERUR #### [facility] [address] [place] [address] Dr. Jerald Poon Bacteria identified Cx Nom (U) INDICATED Normal [facility] Comment on above: Performed By: #### U MICRO, ERUR #### [facility] [address] [place] [address] Dr. Jerald Poon CAST NONE SEEN Normal NONE SEEN [facility] Comment on above: Performed By: #### U MICRO, ERUR #### [facility] [address] [place] [address] Dr. Jerald Poon Crystals LM Nom (Urine sed) NONE SEEN Normal NONE SEEN [facility] Comment on above: Performed By: #### U MICRO, ERUR #### [facility] [address] [place] [address] Dr. Jerald Poon Epithelial cells LM Ql (Urine sed) FEW Abnormal NONE SEEN /RARE [facility] Comment on above: Performed By: #### U MICRO, ERUR #### [facility] [address] [place] [address] Dr. Jerald Poon MUCOUS NONE SEEN Normal NONE SEEN [facility] Comment on above: Performed By: #### U MICRO, ERUR #### [facility] [address] [place] [address] Dr. Jerald Poon RBC NONE SEEN Abnormal 0-2 [facility] Comment on above: Performed By: #### U MICRO, ERUR #### [facility] [address] [place] [address] Dr. Jerald Poon WBC 2-5 Abnormal NONE SEEN [facility] Comment on above: Performed By: #### U MICRO, ERUR #### [facility] [address] [place] [address] Dr. Jerald Poon CBC AUTO DIFFon 04-01-2022 BASO # 0.0 103/ul Normal 0.0-0.1 [facility] Comment on above: Performed By: #### C BC #### [facility] [address] [place] [address] Dr. Jerald Poon Basophils/100 WBC (Bld) 0.5 % Normal 0.2-2.0 [facility] Comment on above: Performed By: #### C BC #### [facility] [address] [place] [address] Dr. Jerald Poon EO # 0.1 103/ul Normal 0.0-0.7 [facility] Comment on above: Performed By: #### C BC #### [facility] [address] [place] [address] Dr. Jerald Poon Eosinophils/100 WBC (Bld) 1.7 % Normal 0.9-7.0 [facility] Comment on above: Performed By: #### C BC #### [facility] [address] [place] [address] Dr. Jerald Poon Erythrocyte distribution width (RBC) [Ratio] 14.2 % Normal 11.0-15.0 [facility] Comment on above: Performed By: #### C BC #### [facility] [address] [place] [address] Dr. Jerald Poon Hematocrit (Bld) [Volume fraction] 36.7 % Normal 36.0-48.0 [facility] Comment on above: Performed By: #### C BC #### [facility] [address] [place] [address] Dr. Jerald Poon Hemoglobin (Bld) [Mass/Vol] 12.1 g/dL Normal 12.0-16.0 [facility] Comment on above: Performed By: #### C BC #### [facility] [address] [place] [address] Dr. Jerald Poon IG # 0.01 10e3/ul Normal 0.00-0.03 [facility] Comment on above: Performed By: #### C BC #### [facility] [address] [place] [address] Dr. Jerald Poon IG % 0.1 % Normal 0.0-0.5 [facility] Comment on above: Performed By: #### C BC #### [facility] [address] [place] [address] Dr. Jerald Poon LYMPH # 2.3 103/ul Normal 1.2-3.8 [facility] Comment on above: Performed By: #### C BC #### [facility] [address] [place] [address] Dr. Jerald Poon Lymphocytes/100 WBC (Bld) 30.8 % Normal 20.5-60.0 [facility] Comment on above: Performed By: #### C BC #### [facility] [address] [place] [address] Dr. Jerald Poon MANUAL DIFF REQ NO Normal [facility] Comment on above: Performed By: #### C BC #### [facility] [address] [place] [address] Dr. Jerald Poon MCH (RBC) [Entitic mass] 27.3 pg Normal 26.7-34.0 [facility] Comment on above: Performed By: #### C BC #### [facility] [address] [place] [address] Dr. Jerald Poon MCHC (RBC) [Mass/Vol] 33.0 g/dL Normal 29.9-35.2 [facility] Comment on above: Performed By: #### C BC #### [facility] [address] [place] [address] Dr. Jerald Poon MCV (RBC) [Entitic vol] 82.7 fL Normal 81.0-99.0 [facility] Comment on above: Performed By: #### C BC #### [facility] [address] [place] [address] Dr. Jerald Poon MONO # 0.8 103/ul Normal 0.3-0.8 [facility] Comment on above: Performed By: #### C BC #### [facility] [address] [place] [address] Dr. Jerald Poon Monocytes/100 WBC (Bld) 10.6 % Normal 1.7-12.0 [facility] Comment on above: Performed By: #### C BC #### [facility] [address] [place] [address] Dr. Jerald Poon NEUT # 4.2 103/ul Normal 1.4-6.5 [facility] Comment on above: Performed By: #### C BC #### [facility] [address] [place] [address] Dr. Jerald Poon Neutrophils/100 WBC (Bld) 56.3 % Normal 43.0-75.0 [facility] Comment on above: Performed By: #### C BC #### [facility] [address] [place] [address] Dr. Jerald Poon Platelet mean volume (Bld) [Entitic vol] 10.2 fL Normal 9.5-13.5 [facility] Comment on above: Performed By: #### C BC #### [facility] [facility] [address] [place] [address] Dr. Jerald Poon PLT 375 103/ul Normal 150-450 [facility] Comment on above: Performed By: #### C BC #### [facility] [address] [place] [address] Dr. Jerald Poon RBC 4.44 106/ul Normal 4.20-5.40 [facility] Comment on above: Performed By: #### C BC #### [facility] [address] [place] [address] Dr. Jerald Poon WBC 7.5 103/ul Normal 4.0-11.0 [facility] Comment on above: Performed By: #### C BC #### [facility] [address] [place] [address] Dr. Jerald Poon ER URINE PROFILEon 2 Bilirubin Ql (U) Negative Normal NEGATIVE [facility] Comment on above: Performed By: #### C BC #### [facility] [address] [place] [address] Dr. Jerald Poon Clarity (U) CLEAR Normal CLEAR [facility] Comment on above: Performed By: #### C BC #### [facility] [address] [place] [address] Dr. Jerald Poon Color (U) YELLOW Normal YELLOW [facility] Comment on above: Performed By: #### C BC #### [facility] [address] [place] [address] Dr. Jerald CEBALLOS A micrscopic examination will be performed if indicated. Normal [facility] Comment on above: Performed By: #### C BC #### [facility] [address] [place] [address] Dr. Jerald Poon Glucose Ql (U) Negative Normal NEGATIVE [facility] Comment on above: Performed By: #### C BC #### [facility] [address] [place] [address] Dr. Jerald Poon Hemoglobin Ql (U) Negative Normal NEGATIVE [facility] Comment on above: Performed By: #### C BC #### [facility] [address] [place] [address] Dr. Jerald Poon Ketones Ql (U) Negative Normal NEGATIVE [facility] Comment on above: Performed By: #### C BC #### [facility] [address] [place] [address] Dr. Jerald Poon LEUKOCYTES Negative Normal NEGATIVE [facility] Comment on above: Performed By: #### C BC #### [facility] [address] [place] [address] Dr. Jerald Poon Nitrite Ql (U) Negative Normal NEGATIVE [facility] Comment on above: Performed By: #### C BC #### [facility] [address] [place] [address] Dr. Jerald Poon pH (U) 7.0 [pH] Normal 5-9 [facility] Comment on above: Performed By: #### C BC #### [facility] [address] [place] [address] Dr. Jerald Poon SPEC GRAVITY 1.025 Normal 1.005-<=1.025 [facility] Comment on above: Performed By: #### C BC #### [facility] [address] [place] [address] Dr. Jerald Poon UA PROTEIN Negative Normal NEGATIVE/ TRACE [facility] Comment on above: Performed By: #### C BC #### [facility] [address] [place] [address] Dr. Jerald Poon UR MICRO IND NOT INDICATED Normal [facility] Comment on above: Performed By: #### C BC #### [facility] [address] [place] [address] Dr. Jerald Poon Urobilinogen Qn (U) 1.0 {Lyly'U}/dL Normal 0.2 - 1. 0 [facility] Comment on above: Performed By: #### C BC #### [facility] [address] [place] [address] Dr. Jerald Poon PREG QUANT HCGon 04-01-2022 HCG QUANT 1 mIU/mL Normal [facility] Comment on above: Performed By: #### P REGQNT #### [facility] [address] [place] [address] Dr. Jerald Poon HCG RANGE SEE BELOW Normal [facility] Comment on above: Result Comment: 5-50 0.2-1 WEEK 50-500 1-2 WEEKS 100-5,000 2-3 WEEKS 500-10,000 3-4 WEEKS 1,000-50,000 4-5 WEEKS 10,000-100,000 5-6 WEEKS 15,000-200,000 6-8 WEEKS 10,000-100,000 2-3 MONTHS Performed By: #### P REGQNT #### [facility] [address] [place] [address] Dr. Jerald Poon PROF 14(COMP METB)on 022 Albumin [Mass/Vol] 3.6 g/dL Normal 3.4-5.0 [facility] Comment on above: Performed By: #### C MP #### [facility] [address] [place] [address] Dr. Jerald Poon Albumin/Globulin [Mass ratio] 0.8 {ratio} Normal [facility] Comment on above: Performed By: #### C MP #### [facility] [address] [place] [address] Dr. Jerald Poon ALP [Catalytic activity/Vol] 65 U/L Normal 46-116 [facility] Comment on above: Performed By: #### C MP #### [facility] [address] [place] [address] Dr. Jerald Poon ALT [Catalytic activity/Vol] 22 U/L Normal 14-59 [facility] Comment on above: Performed By: #### C MP #### [facility] [address] [address] [address] Jerald Poon Anion gap [Moles/Vol] 10.3 mmol/L Normal Th [facility] Comment on above: Performed By: #### C MP #### [facility] [address] [address] [address] Jerald Poon AST [Catalytic activity/Vol] 14 U/L Critically low 15-37 [facility] Comment on above: Performed By: #### C MP #### [facility] [address] [place] [address] Dr. Jerald Poon Bilirubin [Mass/Vol] 0.1 mg/dL Critically low 0.2-1.0 [facility] Comment on above: Performed By: #### C MP #### [facility] [address] [address] [address] Jerald Poon Calcium [Mass/Vol] 8.6 mg/dL Normal 8.5-10.1 [facility] Comment on above: Performed By: #### C MP #### [facility] [address] [address] [address] Jerald Poon Chloride [Moles/Vol] 104 mmol/L Normal 98-107 [facility] Comment on above: Performed By: #### C MP #### [facility] [address] [address] [address] Jerald Poon CO2 [Moles/Vol] 28.1 mmol/L Normal 21.0-32.0 [facility] Comment on above: Performed By: #### C MP #### [facility] [address] [address] [address] Jerald Poon Creatinine [Mass/Vol] 0.99 mg/dL Normal 0.55-1.02 [facility] Comment on above: Performed By: #### C MP #### [facility] [address] [address] [address] Jerald Poon EGFR-AF AFGHAN >60 Normal >=60 [facility] Comment on above: Performed By: #### C MP #### [facility] [address] [address] [address] Jerald Poon EGFR-NON AF AFGHAN >60 Normal >=60 [facility] Comment on above: Performed By: #### C MP #### [facility] [address] [address] [address] Jerald Poon Globulin (S) [Mass/Vol] 4.5 g/dL Normal [facility] Comment on above: Performed By: #### C MP #### [facility] [address] [address] [address] Jerald Poon Glucose [Mass/Vol] 94 mg/dL Normal 74-106 [facility] Comment on above: Performed By: #### C MP #### [facility] [address] [address] [address] Jerald Poon Potassium [Moles/Vol] 3.4 mmol/L Critically low 3.5-5.1 [facility] Comment on above: Performed By: #### C MP #### [facility] [address] [address] [address] Jerald Poon Protein [Mass/Vol] 8.1 g/dL Normal 6.4-8.2 [facility] Comment on above: Performed By: #### C MP #### [facility] [address] [address] [address] Jerald Poon Sodium [Moles/Vol] 139 mmol/L Normal 136-145 [facility] Comment on above: Performed By: #### C MP #### [facility] [address] [address] [address] Jerald Poon Urea nitrogen [Mass/Vol] 8.0 mg/dL Normal 7.0-18.0 [facility] Comment on above: Performed By: #### C MP #### [facility] [address] [place], [place] [address] Dr. Jerald Poon Urea nitrogen/Creatinine [Mass ratio] 8.1 mg/mg Normal [facility] Comment on above: Performed By: #### C SHADIA #### [facility] [address] [place], [place] [address] Dr. Jerald Poon US PELVIS TRANSVAGon 022 [...] LUH MANRIQUE Date: 2022-04-01 21:55 Normal [facility] Automated erythrocytes count in urine sediment (number/area)Ordered By: Anders Sesay on 10-19-2021 RBC Auto (Urine sed) [#/Area] 1-2 [HPF] [facility] Automated leukocytes count i n urine sediment (number/area)Ordered By: Anders Sesay on 10-19-2021 WBC Auto (Urine sed) [#/Area] 3-4 [HPF] [facility] [place] [facility] Basophils Auto (Bld) [#/Vol] Ordered By: Anders Sesay on 10-19-2021 Basophils (Bld) [#/Vol] 0.1 10*3/uL 0.0-0.2 [facility] Basophils/100 WBC Auto (Bld) Ordered By: Anders Sesay on 10-19-2021 Basophils/100 WBC (Bld) 0.6 % [facility] Bilirubin Test strip Ql (U)O rdered By: Anders Sesay on 10-19-2021 Bilirubin Ql (U) Negative Negative [facility] Blood hemoglobin measurement (mass/volume)Ordered By: Anders Sesay on 10-19-2021 Hemoglobin (Bld) [Mass/Vol] 13.2 g/dL 11.8-15.4 [facility] Blood leukocytes automated c ount (number/volume)Ordered By: Anders Sesay on 10-19-2021 WBC (Bld) [#/Vol] 9.1 10*3/uL 4.5-11.[address] [facility] Body fluid albumin measureme nt (mass/volume)Ordered By: Anders Sesay on 10-19-2021 Albumin (Body fld) [Mass/Vol] 3.8 g/dL 3.2-5.5 [facility] [place] [facility] Color Auto (U)Ordered By: Jason Sesay on 10-19-2021 Color (U) Yellow Yellow [facility] Creatinine and Glomerular fi ltration rate.predicted panel (S/P/Bld)Ordered By: Anders Sesay on 10-19-2021 Creatinine [Mass/Vol] 0.87 mg/dL 0.44-1.03 [facility] Eosinophils Auto (Bld) [#/Vo l]Ordered By: Anders Sesay on 10-19-2021 Eosinophils (Bld) [#/Vol] 0.1 10*3/uL 0.0-0.45 [facility] [place] [facility] Eosinophils/100 WBC Auto (Bl d)Ordered By: Anders Sesay on 10-19-2021 Eosinophils/100 WBC (Bld) 0.9 % [facility] Erythrocyte distribution wid th Auto (RBC) [Ratio]Ordered By: Anders Sesay on 10-19-2021 Erythrocyte distribution width (RBC) [Ratio] 16.4 % 11.9-15.3 [facility] Estimated glomerular filtrat ion rate (GFR) non- AmericanOrdered By: Anders Sesay on 10-19-2021 GFR/1.73 sq M.predicted among non-blacks MDRD (S/P/Bld) [Vol rate/Area] > 60 mL/Min [facility] Globulin Calc (S) [Mass/Vol] Ordered By: Anders Sesay on 10-19-2021 Globulin (S) [Mass/Vol] 4.3 g/dL [facility] HCG ( test) IA.rapi d Ql (U)Ordered By: Anders Sesay on 10-19-2021 HCG ( test) Ql (U) Negative [facility] Hematocrit Auto (Bld) [Volum e fraction]Ordered By: Anders Sesay on 10-19-2021 Hematocrit (Bld) [Volume fraction] 40.2 % 34.0-46.4 [facility] Ketones Auto test strip (U) [Mass/Vol]Ordered By: Anders Sesay on 10-19-2021 Ketones (U) [Mass/Vol] Negative Negative [facility] - Hematology and Cell countsOrdered By: Anders Sesay on 10-19-2021 Nucleated RBC/100 WBC (Bld) [Ratio] 0.2 % 0-0.5 [facility] [place] [facility] Laboratory - UrinalysisOrder ed By: Anders Sesay on 10-19-2021 Hyaline casts LM Ql (Urine sed) 0-8 [LPF] [facility] Lymphocytes Auto (Bld) [#/Vo l]Ordered By: Anders Sesay on 10-19-2021 Lymphocytes (Bld) [#/Vol] 2.4 10*3/uL 1.00-4.8 [facility] [place] [facility] Lymphocytes/100 WBC Auto (Bl d)Ordered By: Anders Sesay on 10-19-2021 Lymphocytes/100 WBC (Bld) 26.7 % [facility] MCH Auto (RBC) [Entitic mass ]Ordered By: Anders Sesay on 10-19-2021 MCH (RBC) [Entitic mass] 26.3 pg 24.7-34.3 [facility] MCHC Auto (RBC) [Mass/Vol]Or dered By: Anders Sesay on 10-19-2021 MCHC (RBC) [Mass/Vol] 32.9 g/dL 32.0-35.0 [facility] MCV Auto (RBC) [Entitic vol] Ordered By: Anders Sesay on 10-19-2021 MCV (RBC) [Entitic vol] 80.1 fL 80-100 [facility] Monocytes Auto (Bld) [#/Vol] Ordered By: Anders Sesay on 10-19-2021 Monocytes (Bld) [#/Vol] 0.7 10*3/uL 0.0-0.8 [facility] Monocytes/100 WBC Auto (Bld) Ordered By: Anders Sesay on 10-19-2021 Monocytes/100 WBC (Bld) 7.6 % [facility] Neutrophils Auto (Bld) [#/Vo l]Ordered By: Anders Sesay on 10-19-2021 Neutrophils (Bld) [#/Vol] 5.8 10*3/uL 1.8-7.7 [facility] Neutrophils/100 WBC Auto (Bl d)Ordered By: Anders Sesay on 10-19-2021 Neutrophils/100 WBC (Bld) 64.2 % [facility] Nitrite Test strip Ql (U)Ord ered By: Anders Sesay on 10-19-2021 Nitrite Ql (U) Negative Negative [facility] No Panel InformationOrdered By: Anders Sesay on 10-19-2021 Estimated GFR () > 60 mL/Min [facility] Comment on above: GFR estimated refere nce range: According to KDOQI guidelines, <60 ml/min/1.73m2 is sufficient to diagnose a patient with chronic kidney disease. Pharmacy Creatinine Clearance (Chem 147.41 [facility] Platelet mean volume Auto (B ld) [Entitic vol]Ordered By: Anders Sesay on 10-19-2021 Platelet mean volume (Bld) [Entitic vol] 8.6 fL 6.3-10.7 [facility] Platelets Auto (Bld) [#/Vol] Ordered By: Anders Sesay on 10-19-2021 Platelets (Bld) [#/Vol] 395 10*3/uL 150-450 [facility] Protein Auto test strip (U) [Mass/Vol]Ordered By: Anders Sesay on 10-19-2021 Protein (U) [Mass/Vol] Negative Negative [facility] Protein [Mass/volume] in Ser um or PlasmaOrdered By: Anders Sesay on 10-19-2021 Protein [Mass/Vol] 8.1 g/dL 6.1-7.[address] [facility] RBC Auto (Bld) [#/Vol]Ordere d By: Anders Sesay on 10-19-2021 RBC (Bld) [#/Vol] 5.02 10*6/uL 3.60-5.00 [facility] Serum or plasma alanine ayoub otransferase measurement without P-5'-P (enzymatic activiOrdered By: Anders Sesay on 10-19-2021 ALT No additional P-5'-P [Catalytic activity/Vol] 20 U/L 10-60 [facility] Serum or plasma albumin/glob ulin mass ratioOrdered By: Anders Sesay on 10-19-2021 Albumin/Globulin [Mass ratio] 0.9 {ratio} [facility] Serum or plasma alkaline cosmo sphatase measurement (enzymatic activity/volume)Ordered By: Anders Sesay on 10-19-2021 ALP [Catalytic activity/Vol] 55 U/L 32-92 [facility] Serum or plasma aspartate am inotransferase measurement (enzymatic activity/volume)Ordered By: Anders Sesay on 10-19-2021 AST [Catalytic activity/Vol] 17 U/L 10-42 [facility] Serum or plasma calcium joann urement (mass/volume)Ordered By: Anders Sesay on 10-19-2021 Calcium [Mass/Vol] 9.1 mg/dL 8.2-10.[address] [facility] Serum or plasma chloride adan surement (moles/volume)Ordered By: Anders Sesay on 10-19-2021 Chloride [Moles/Vol] 103 mmol/L 95-114 [facility] Serum or plasma glucose joann urement (mass/volume)Ordered By: Anders Sesay on 10-19-2021 Glucose [Mass/Vol] 105 mg/dL 70-[address] [facility] Comment on above: ADA recommended refe rence range Random Glucose Reference Range is dependent on time and content of last meal. Glucose of more than 200 mg/dL in a nonstressed, ambulatory subject supports the diagnosis of Diabetes Mellitus. Serum or plasma potassium me asurement (moles/volume)Ordered By: Anders Sesay on 10-19-2021 Potassium [Moles/Vol] 3.7 mmol/L 3.5-5.1 [facility] Serum or plasma sodium measu rement (moles/volume)Ordered By: Anders Sesay on 10-19-2021 Sodium [Moles/Vol] 137 mmol/L 136-[address] [facility] Serum or plasma total biliru bin measurement (mass/volume)Ordered By: Anders Sesay on 05-20-2022 Bilirubin [Mass/Vol] 0.3 mg/dL 0.3-1.2 [facility] Serum or plasma total carbon dioxide measurement (moles/volume)Ordered By: Anders Sesay on 10-19-2021 CO2 [Moles/Vol] 24.2 mmol/L 22.0-30.0 [facility] Serum or plasma urea nitroge n measurement (mass/volume)Ordered By: Anders Sesay on 10-19-2021 Urea nitrogen [Mass/Vol] 7 mg/dL 9- [facility] Specific gravity Auto test s trip (U) [Rel density]Ordered By: Anders Sesay on 10-19-2021 Specific gravity (U) [Rel density] 1.014 1.001-1.030 [facility] Squamous epithelial cells de tection in urine sediment by light microscopyOrdered By: Anders Sesay on 10-19-2021 Epithelial cells.squamous LM Ql (Urine sed) 3-4 [HPF] [facility] Urine bacteria detection by automated methodOrdered By: Anders Sesay on 10-19-2021 Bacteria Auto Ql (U) 1+ None Seen [facility] Urine clarity by refractomet ry automatedOrdered By: Anders Sesay on 10-19-2021 Clarity Refractometry automated (U) Clear Clear [facility] Urine glucose measurement by automated test strip (mass/volume)Ordered By: Anders Sesay on 10-19-2021 Glucose Auto test strip (U) [Mass/Vol] Normal mg/dL Normal [facility] Urine hemoglobin detection b y automated test stripOrdered By: Anders Sesay on 10-19-2021 Hemoglobin Auto test strip Ql (U) Negative Negative [facility] Urine leukocyte esterase det ection by automated test stripOrdered By: Anders Sesay on 10-19-2021 Leukocyte esterase Auto test strip Ql (U) 1+ Negative [facility] Urobilinogen Auto test strip (U) [Mass/Vol]Ordered By: Anders Sesay on 10-19-2021 Urobilinogen (U) [Mass/Vol] Normal mg/dL Normal [facility] pH Auto test strip (U)Ordere d By: Anders Sesay on 10-19-2021 pH (U) 5.5 [pH] 5.0-9.0 [facility] US DUP ABD PEL RETRO [...] MD 07/14/20 Edited Result - FINAL Normal [facility] US NON OB TRANSVAGINALon US NON OB [...] MD 07/14/20 Edited Result - FINAL Normal [facility] Chlamydia/GC,DNA Ampon 07-10 Chlamydia Probe Negative Normal NEG [facility] Comment on above: Result Comment: CHLA MYDIA [...] Performed By: #### U HCG, UAMIC #### [facility] [address] [place], [place] [id number] Production Sound Mixer: Campos Avilez MD Gonorrhea Probe Negative Normal NEG [facility] Comment on above: Result Comment: NEIS SERIA [...] Performed By: #### U HCG, UAMIC #### [facility] [address] [place] [id number] [employer] Mixer: Campos Avilez MD Cult,Urineon 07-09-2020 Cult,Urine Specimen Description .CLEAN CATCH URINE Special Requests NOT REPORTED Culture ESCHERICHIA COLI >[id number] CFU/ML Report Status FINAL 07/09/2020 SUSCEPTIBILITY Organism [...] <=20 SUSCEPTIBLE Piperacillin/Tazobac her <=4 SUSCEPTIBLE Normal [facility] Comment on above: Performed By: #### U HCG, UAMIC #### [place] [address] [employer]: Campos Avilez MD ABO/Rh(D)on 07-08-2020 ABO/Rh(D) Positive [facility] Comment on above: Performed By: #### [facility] #### [place] [address] [employer] Mixer: Camops Avilez MD CBC with Diffon 07-08-2020 Abs. Basophil 0.04 k/uL Normal 0.00-0.20 [facility] Comment on above: Performed By: #### C P, CDP, COSMO, BHCG, MG, VD25, LIP #### [facility] [address] [place] [address] [employer]er: Campos Avilez MD Abs.Imm.Granulocyte 0.04 k/uL Normal 0.00-0.30 [facility] Comment on above: Performed By: #### C P, CDP, COSMO, BHCG, MG, VD25, LIP #### [facility] [address] [place] [address] [employer]er: Campos Avilez MD Abs.Neutrophil (Seg) 8.16 k/uL High 1.80-8.00 [facility] Comment on above: Performed By: #### C P, CDP, COSMO, BHCG, MG, VD25, LIP #### [address] [address] [employer] Mixer: Campos Avilez MD Basophils/100 WBC (Bld) 0 % Normal 0-2 [facility] Comment on above: Performed By: #### C P, CDP, COSMO, BHCG, MG, VD25, LIP #### [address] [address] [employer]er: Campos Avilez MD Eosinophils (Bld) [#/Vol] 0.10 10*3/uL Normal 0.00-0.44 [facility] Comment on above: Performed By: #### C P, CDP, COSMO, BHCG, MG, VD25, LIP #### [address] [address] [employer]er: Campos Avilez MD Eosinophils/100 WBC (Bld) 1 % Normal 1-4 [facility] Comment on above: Performed By: #### C P, CDP, COSMO, BHCG, MG, VD25, LIP #### [place] [address] [employer]er: Campos Avilez MD Erythrocyte distribution width (RBC) [Ratio] 14.0 % Normal 11.8-14.4 [facility] Comment on above: Performed By: #### C P, CDP, COSMO, BHCG, MG, VD25, LIP #### [address] [address] [employer]er: Campos Avilez MD Hematocrit (Bld) [Volume fraction] 34.3 % Low 36.3-47.1 [facility] Comment on above: Performed By: #### C P, CDP, COSMO, BHCG, MG, VD25, LIP #### [address] [address] [employer]er: Campos Avilez MD Hemoglobin (Bld) [Mass/Vol] 11.1 g/dL Low 11.9-15.1 [facility] Comment on above: Performed By: #### C P, CDP, COSMO, BHCG, MG, VD25, LIP #### [address] [address] [employer]er: Campos Avilez MD Immature granulocytes (Bld) [#/Vol] 0 % Normal 0 [facility] Comment on above: Performed By: #### C P, CDP, COSMO, BHCG, MG, VD25, LIP #### [place] [address] [employer]er: Campos Avilez MD Lymphocytes (Bld) [#/Vol] 1.77 10*3/uL Normal 1.20-5.20 [facility] Comment on above: Performed By: #### C P, CDP, COSMO, BHCG, MG, VD25, LIP #### [place] [address] [employer]er: Campos Avilez MD Lymphocytes/100 WBC (Bld) 16 % Low 25-45 [facility] Comment on above: Performed By: #### C P, CDP, COSMO, BHCG, MG, VD25, LIP #### [place] [address] [employer]er: Campos Avilez MD MCH (RBC) [Entitic mass] 26.6 pg Normal 25.0-35.0 [facility] Comment on above: Performed By: #### C P, CDP, COSMO, BHCG, MG, VD25, LIP #### [address] [address] [employer]er: Campos Avilez MD MCHC (RBC) [Mass/Vol] 32.4 g/dL Normal 28.4-34.8 [facility] Comment on above: Performed By: #### C P, CDP, COSMO, BHCG, MG, VD25, LIP #### [address] [address] [employer]er: Campos Avilez MD MCV (RBC) [Entitic vol] 82.3 fL Normal 78.0-102.0 [facility] Comment on above: Performed By: #### C P, CDP, COSMO, BHCG, MG, VD25, LIP #### [address] [address] [employer]er: Campos Avilez MD Monocytes (Bld) [#/Vol] 0.73 10*3/uL Normal 0.10-1.40 [facility] Comment on above: Performed By: #### C P, CDP, COSMO, BHCG, MG, VD25, LIP #### [address] [address] [employer]: Campos Avilez MD Monocytes/100 WBC (Bld) 7 % Normal 2-8 [facility] Comment on above: Performed By: #### C P, CDP, COSMO, BHCG, MG, VD25, LIP #### [address] [address] [employer]er: Campos Avilez MD Neutrophil (Seg) 75 % High 34-64 [facility] Comment on above: Performed By: #### C P, CDP, COSMO, BHCG, MG, VD25, LIP #### [address] [address] [employer]er: Campos Avilez MD NRBC Automated 0.0 per 100 WBC Normal 0.0 [facility] Comment on above: Performed By: #### C P, CDP, COSMO, BHCG, MG, VD25, LIP #### [address] [address] [employer]er: Campos Avilez MD Platelet mean volume (Bld) [Entitic vol] 11.8 fL Normal 8.1-13.5 [facility] Comment on above: Performed By: #### C P, CDP, COSMO, BHCG, MG, VD25, LIP #### [address] [address] [employer]: Campos Avilez MD Platelets (Bld) [#/Vol] 288 10*3/uL Normal 138-453 [facility] Comment on above: Performed By: #### C P, CDP, COSMO, BHCG, MG, VD25, LIP #### [address] [address] [employer]er: Campos Avilez MD RBC (Bld) [#/Vol] 4.17 10*6/uL Normal 3.95-5.11 [facility] Comment on above: Performed By: #### C P, CDP, COSMO, BHCG, MG, VD25, LIP #### [address] [address] [employer]er: Campos Avilez MD WBC (Bld) [#/Vol] 10.8 10*3/uL Normal 4.5-13.5 [facility] Comment on above: Performed By: #### C P, CDP, COSMO, BHCG, MG, VD25, LIP #### [address] [address] [employer]er: Campos Avilez MD Auto Diff Performed NOT REPORTED Normal [facility] Comment on above: Performed By: #### C P, CDP, COSMO, BHCG, MG, VD25, LIP #### [address] [address] [employer]: Campos Avilez MD Platelets (Bld) [#/Vol] NOT REPORTED Normal [facility] Comment on above: Performed By: #### C P, CDP, COSMO, BHCG, MG, VD25, LIP #### [address] [place] [address] [employer]: Campos Avilez MD RBC morphology finding Nom (Bld) NOT REPORTED Normal [facility] Comment on above: Performed By: #### C P, CDP, COSMO, BHCG, MG, VD25, LIP #### [facility] [address] [place] [address] [employer]er: Campos Avilez MD WBC Morphology NOT REPORTED Normal [facility] Comment on above: Performed By: #### C P, CDP, COSMO, BHCG, MG, VD25, LIP #### [address] [address] [employer]er: Campos Avilez MD Calcium, Ionicon 07-08-2020 Calcium [Mass/Vol] 1.18 mmol/L Normal 1.13-1.33 [facility] Comment on above: Performed By: #### I OCAL #### [address] [address] [employer]er: Campos Avilez MD Calcium, Ionizedon Calcium [Mass/Vol] 1.18 mmol/L 1.13 - 1. 33 mmol/L [facility], [place] Comp Metabolic Profon 2020 (cont.) Normal [facility] Comment on above: Result Comment: Aver age GFR for <20 years old not available. Chronic Kidney Disease: <60 mL/min/1.73sq m Kidney failure: <15 mL/min/1.73sq m eGFR calculated using average adult body mass. Additional eGFR calculator available at: http://www.[employer]com/multiple_crcl_2012.htm Performed By: #### C P, CDP, COSMO, BHCG, MG, VD25, LIP #### [id number] [place], [place] [id number] [employer]: Campos Avilez MD Albumin [Mass/Vol] 2.3 g/dL Low 3.5-5.2 [facility] Comment on above: Performed By: #### C P, CDP, COSMO, BHCG, MG, VD25, LIP #### [address] [address] [employer]er: Campos Avilez MD Albumin/Globulin [Mass ratio] 0.9 {ratio} Low 1.0-2.5 [facility] Comment on above: Performed By: #### C P, CDP, COSMO, BHCG, MG, VD25, LIP #### [address] [address] [employer]: Campos Avilez MD Alkaline Phos 41 U/L Normal 35-104 [facility] Comment on above: Result Comment: SPEC IMEN MODERATELY HEMOLYZED, RESULTS MAY BE ADVERSELY AFFECTED Performed By: #### C P, CDP, COSMO, BHCG, MG, VD25, LIP #### [address] [address] [employer]: Campos Avilez MD ALT [Catalytic activity/Vol] 11 U/L Normal 5-33 [facility] Comment on above: Result Comment: SPEC IMEN MODERATELY HEMOLYZED, RESULTS MAY BE ADVERSELY AFFECTED Performed By: #### C P, CDP, COSMO, BHCG, MG, VD25, LIP #### [address] [address] [employer]: Campos Avilez MD Anion gap [Moles/Vol] 9 mmol/L Normal 9-17 [facility] Comment on above: Performed By: #### C P, CDP, COSMO, BHCG, MG, VD25, LIP #### [address] [address] [employer]er: Campos Avilez MD AST [Catalytic activity/Vol] 28 U/L Normal <32 [facility] Comment on above: Result Comment: SPEC IMEN MODERATELY HEMOLYZED, RESULTS MAY BE ADVERSELY AFFECTED Performed By: #### C P, CDP, COSMO, BHCG, MG, VD25, LIP #### [address] [address] [employer]: Campos Avilez MD Bilirubin Ql (U) <0.10 Low 0.3-1.2 [facility] Comment on above: Performed By: #### C P, CDP, COSMO, BHCG, MG, VD25, LIP #### [address] [address] [employer]er: Campos Avilez MD Calcium [Mass/Vol] 5.5 mg/dL Critically low 8.6-10.4 [facility] Comment on above: Performed By: #### C P, CDP, COSMO, BHCG, MG, VD25, LIP #### [facility] [address] [place] [address] [employer]er: Campos Avilez MD Chloride [Moles/Vol] 118 mmol/L High 98-107 [facility] Comment on above: Performed By: #### C P, CDP, COSMO, BHCG, MG, VD25, LIP #### [facility] [address] [place] [address] [employer]er: Campos Avilez MD CO2 [Moles/Vol] 14 mmol/L Low 20-31 [facility] Comment on above: Performed By: #### C P, CDP, COSMO, BHCG, MG, VD25, LIP #### [facility] [address] [place] [address] [employer]er: Campos Avilez MD Creatinine [Mass/Vol] 0.60 mg/dL Normal 0.50-0.90 [facility] Comment on above: Performed By: #### C P, CDP, COSMO, BHCG, MG, VD25, LIP #### [facility] [address] [place] [address] [employer]er: Campos Avilez MD GFR,non Amer Pediatric GFR requires additional information. Refer to NKDEP website for Normal >60 [facility] Comment on above: Result Comment: calc ulator. Performed By: #### C P, CDP, COSMO, BHCG, MG, VD25, LIP #### [address] [address] [employer]: Campos Avilez MD Glucose [Mass/Vol] 84 mg/dL Normal 70-99 [facility] Comment on above: Performed By: #### C P, CDP, COSMO, BHCG, MG, VD25, LIP #### [address] [address] [employer]er: Campos Avilez MD Potassium [Moles/Vol] 5.1 mmol/L Normal 3.7-5.3 [facility] Comment on above: Result Comment: SPEC IMEN MODERATELY HEMOLYZED, RESULTS MAY BE ADVERSELY AFFECTED Performed By: #### C P, CDP, COSMO, BHCG, MG, VD25, LIP #### [address] [address] [employer]er: Campos Avilez MD Protein [Mass/Vol] 5.0 g/dL Low 6.4-8.3 [facility] Comment on above: Performed By: #### C P, CDP, COSMO, BHCG, MG, VD25, LIP #### [facility] [address] [place] [address] [employer]er: Campos Avilez MD Sodium [Moles/Vol] 141 mmol/L Normal 135-144 [facility] Comment on above: Performed By: #### C P, CDP, COSMO, BHCG, MG, VD25, LIP #### [address] [address] [employer]: Campos Avilez MD Urea nitrogen [Mass/Vol] 10 mg/dL Normal 6-20 [facility] Comment on above: Performed By: #### C P, CDP, COSMO, BHCG, MG, VD25, LIP #### [facility] [place] [address] [employer]er: Campos Avilez MD BUN/CRE Ratio NOT REPORTED Normal 9-20 [facility] Comment on above: Performed By: #### C P, CDP, COSMO, BHCG, MG, VD25, LIP #### [facility] [place] [address] [employer]er: Campos Avilez MD GFR, Amer NOT REPORTED Normal >60 [facility] Comment on above: Performed By: #### C P, CDP, COSMO, BHCG, MG, VD25, LIP #### [facility] [address] [place] [address] [employer]: Campos Avilez MD Staging: NOT REPORTED Normal [facility] Comment on above: Performed By: #### C P, CDP, COSMO, BHCG, MG, VD25, LIP #### [facility] [address] [place] [address] [employer]er: Campos Avilez MD HCG, ,Urineon 07-08 Beta HCG ( test) Ql (U) Negative Normal NEG [facility] Comment on above: Result Comment: Spec imens with hCG levels near the threshold of the test (25 mIU/mL) may give a negative or indeterminate result. In such cases, another test should be performed with a new specimen in 48-72 hours. If early is suspected clinically in this setting, correlation with quantitative serum b-hCG level is suggested. Performed By: #### U HCG, UAMIC #### [address] [address] [employer]: Campos Avilez MD HCG, Quanton 07-08-2020 HCG, Quant <1 Normal <5 [facility] Comment on above: Result Comment: Non-preg premeno [...] CDP, COSMO, BHCG, MG, VD25, LIP #### [facility] [address] [place] [address] [employer]er: Campos Avilez MD Lipaseon 07-08-2020 Lipase [Catalytic activity/Vol] 15 U/L Normal 13-60 [facility] Comment on above: Performed By: #### C P, CDP, COSMO, BHCG, MG, VD25, LIP #### [facility] [address] [place] [address] [employer]er: Campos Avilez MD Magnesiumon 07-08-2020 Magnesium [Mass/Vol] 1.2 mg/dL Low 1.7-2.2 [facility] Comment on above: Performed By: #### C P, CDP, COSMO, BHCG, MG, VD25, LIP #### [facility] [address] [place] [address] [employer]er: Campos Avilez MD Interpretation and review of laboratory results Abnormal [place] Magnesium [Mass/Vol] 1.2 mg/dL Low 1.7 - 2 .2 mg/dL [place] Otheron 07-08-2020 Direct Exam Negative [place] , URINEon Beta HCG ( test) Ql (U) Negative NEGATIVE [place] Comment on above: Specimens with hCG [...] 2.6 mg/dL 2.5 - 4 .8 mg/dL [place] Phosphorus, Inorg.on 021 Phosphorus, Inorg. 2.6 mg/dL Normal 2.5-4.8 [facility] Comment on above: Performed By: #### U HCG, UAMIC #### [facility] [address] [place] [address] Production [employer]er: Campos Avilez MD NON OB TRANSVAGINALon Elia, Mhpn Incoming Radiant Results From [facility] - 07/08/2020 12:31 AM EST EXAMINATION: PELVIC [...] No evidence of ovarian torsion is noted. [place], [place] Unremarkable pelvic ultrasound. No evidence of ovarian torsion is noted. [place] EXAMINATION: PELVIC ULTRASOUND 07/07/2020 TECHNIQUE: Transvaginal [...] Free Fluid: No evidence of free fluid. [facility] [place], [place] Urinalysis w/ Microon 2020 ----- Normal [facility] Comment on above: Performed By: #### U HCG, UAMIC #### [address] [address] [employer]er: Campos Avilez MD Acetoacetic Acid,Ur Negative Normal NEG [facility] Comment on above: Performed By: #### U HCG, UAMIC #### [address] [address] [employer]er: Campos Avilez MD Bacteria LM.HPF (Urine sed) [#/Area] MANY Abnormal NONE [facility] Comment on above: Performed By: #### U HCG, UAMIC #### [address] [address] [employer]er: Campos Avilez MD Bilirubin, SemiQt,Ur Negative Normal NEG [facility] Comment on above: Performed By: #### U HCG, UAMIC #### [address] [address] [employer]er: Campos Avilez MD Color (U) ORANGE Abnormal YEL [facility] Comment on above: Result Comment: INTE RPRET WITH CAUTION DUE TO INTENSE COLOR OF URINE. Performed By: #### U HCG, UAMIC #### [address] [address] [employer]er: Campos Avilez MD Epithelial cells LM.HPF (Urine sed) [#/Area] 0 TO 2 Normal 0-5 [facility] Comment on above: Performed By: #### U HCG, UAMIC #### [address] [address] [employer]er: Campos Avilez MD Glucose Ql (U) Negative Normal NEG [facility] Comment on above: Performed By: #### U HCG, UAMIC #### [address] [address] [employer]er: Campos Avilez MD Hemoglobin, Ur LARGE Abnormal NEG [facility] Comment on above: Performed By: #### U HCG, UAMIC #### [address] [address] [employer]er: Campos Avilez MD Leukocyte esterase Test strip Ql (U) MODERATE Abnormal NEG [facility] Comment on above: Performed By: #### U HCG, UAMIC #### [address] [address] [employer]er: Campos Avilez MD Nitrite,Ur Positive Abnormal NEG [facility] Comment on above: Performed By: #### U HCG, UAMIC #### [address] [address] [employer]er: Campos Avilez MD pH (U) 5.5 [pH] Normal 5.0-8.0 [facility] Comment on above: Performed By: #### U HCG, UAMIC #### [address] [address] [employer]er: Campos Avilez MD Protein Ql (U) 2+ Abnormal NEG [facility] Comment on above: Performed By: #### U HCG, UAMIC #### [address] [address] [employer]er: Campos Avilez MD RBC (U) [#/Vol] 50 TO 100 Normal 0-4 [facility] Comment on above: Result Comment: Refe rence range defined for non-centrifuged specimen. Performed By: #### U HCG, UAMIC #### [address] [address] [employer]: Campos Avilez MD Specific gravity (U) [Rel density] 1.021 Normal 1.005-1.030 [facility] Comment on above: Performed By: #### U HCG, UAMIC #### [address] [address] [employer]er: Campos Avilez MD Turbidity TURBID Abnormal CLEAR [facility] Comment on above: Performed By: #### U HCG, UAMIC #### [address] [address] [employer]er: Campos Avilez MD Urobilinogen,Ur Normal Normal NORM [facility] Comment on above: Performed By: #### U HCG, UAMIC #### [address] [address] [employer]er: Campos Avilez MD WBC (U) [#/Vol] TOO NUMEROUS TO COUNT Normal 0-5 [facility] Comment on above: Performed By: #### U HCG, UAMIC #### [address] [address] [employer]er: Campos Avilez MD Amorphous sediment LM Ql (Urine sed) NOT REPORTED Normal NONE [facility] Comment on above: Performed By: #### U HCG, UAMIC #### [address] [address] [employer]er: Campos Avilez MD Casts LM.LPF (Urine sed) [#/Area] NOT REPORTED Normal 0-8 [facility] Comment on above: Performed By: #### U HCG, UAMIC #### [address] [address] [employer]er: Campos Avilez MD Crystals LM Nom (Urine sed) NOT REPORTED Normal NONE [facility] Comment on above: Performed By: #### U HCG, UAMIC #### [address] [address] [employer]er: Campos Avilez MD Epithelial, Renal NOT REPORTED Normal 0 [facility] Comment on above: Performed By: #### U HCG, UAMIC #### [address] [address] [employer]er: Campos Avilez MD Mucus Strands NOT REPORTED Normal NONE [facility] Comment on above: Performed By: #### U HCG, UAMIC #### [address] [address] [employer]er: Campos Avilez MD Other Observations NOT REPORTED Normal NREQ [facility] Comment on above: Performed By: #### U HCG, UAMIC #### [address] [address] [employer]er: Campos Avilez MD Trichomonas NOT REPORTED Normal NONE [facility] Comment on above: Performed By: #### U HCG, UAMIC #### [address] [address] Production [employer]er: Campos Avilez MD Yeast LM Ql (Urine sed) NOT REPORTED Normal NONE [facility] Comment on above: Performed By: #### U HCG, UAMIC #### [address] [address] Production [employer] Mixer: Campos Avilez MD Urinalysis with microscopico n 07-08-2020 Amorphous, UA NOT REPORTED None [facility] [place] [place] Bacteria, UA MANY Abnormal None [facility] [place] Bilirubin Urine Negative NEGATIVE [facility] [place] Casts UA NOT REPORTED [facility] [place] Color, UA ORANGE Abnormal YELLOW [facility], [place] Comment on above: INTERPRET WITH CAUTI ON DUE TO INTENSE COLOR OF URINE. Crystals, UA NOT REPORTED None /HPF [place], [place] Epithelial Cells UA 0 TO 2 [place], [place] Glucose, Ur Negative NEGATIVE [place] Interpretation and review of laboratory results Abnormal [place], [place] Ketones Ql (U) Negative NEGATIVE [place] Leukocyte esterase Test strip Ql (U) MODERATE Abnormal NEGATIVE [place] Mucus, UA NOT REPORTED None [place], [place] Nitrite, Urine Positive Abnormal NEGATIVE [place], [place] Other Observations UA NOT REPORTED NOT REQ. M [place], [place] pH, UA 5.5 [place], [place] Protein (U) [Mass/Vol] 2+ Abnormal NEGATIVE [place], [place] RBC (U) [#/Vol] 50 TO 100 [place], [place] Comment on above: Reference range defi sonia for non-centrifuged specimen. Renal Epithelial, UA NOT REPORTED 0 /HPF [place], [place] Specific [place], UA 1.021 [place], [place] Trichomonas, UA NOT REPORTED None [place], [place] Turbidity UA TURBID Abnormal CLEAR [place] Urine Hgb LARGE Abnormal NEGATIVE [place] Urobilinogen, Urine Normal Normal [place] WBC, UA TOO NUMEROUS TO COUNT [place] Yeast, UA NOT REPORTED None [place] VAGINITIS DNA PROBEon 2020 Direct Exam Positive Abnormal [place] Direct Exam Method of testing is a DNA probe intended for detection and identification of Samantha species, Gardnerella vaginalis, and Trichomonas vaginalis nucleic acid in vaginal fluid specimens from patients with symptoms of vaginitis/vaginosis. [place] Interpretation and review of laboratory results Abnormal [place] Special Requests NOT REPORTED [place] Specimen Description .VAGINA [place] Vaginitis DNA Probeon 2020 Vaginitis DNA [...] of vaginitis/vaginosis. Report Status FINAL 07/08/2020 Normal [facility] Comment on above: Performed By: #### U HCG, UAMIC #### [facility] [address] [place] [address] Production [employer]er: Campos Avilez MD Vitamin D 25 Hydroxyon 07-08 Interpretation and review of laboratory results Abnormal [place], [place] Vit D, 25-Hydroxy 12.1 ng/mL Low 30 - 100 ng/mL [place], [place] Comment on above: Reference Range: Vitamin D status Range Deficiency <20 ng/mL Mild Deficiency 20-30 ng/mL Sufficiency 30-100 ng/mL Toxicity >100 ng/mL Vitamin D 25 OHon 07-08-2020 Vitamin D 25 [place] 12.1 ng/mL Low 30.0-100.0 [facility] Comment on above: Result Comment: Reference Range: Vitamin D status Range Deficiency <20 ng/mL Mild Deficiency 20-30 ng/mL Sufficiency 30-100 ng/mL Toxicity >100 ng/mL Performed By: #### U HCG, UAMIC #### [facility] [address] [place] [id number] [employer]er: Campos Avilez MD ABO/RHon 07-07-2020 ABO/Rh Positive [place], [place] CBC WITH AUTO DIFFERENTIALon 07-07-2020 Basophils (Bld) [#/Vol] 0.04 10*3/uL [place], [place] Basophils/100 WBC (Bld) 0 % 0 - 2 % [place] Differential Type NOT REPORTED [place] Eosinophils (Bld) [#/Vol] 0.10 10*3/uL [place] Eosinophils/100 WBC (Bld) 1 % 1 - 4 % [place] Erythrocyte distribution width (RBC) [Ratio] 14.0 % 11.8 - 14.4 % [place] Hematocrit (Bld) [Volume fraction] 34.3 % Low 36.3 - 47.1 % [place] Hemoglobin (Bld) [Mass/Vol] 11.1 g/dL Low 11.9 - 15.1 g/dL [place], [place] Immature granulocytes (Bld) [#/Vol] 0 % 0 [place] Immature granulocytes (Bld) [#/Vol] 0.04 10*3/uL [place] Interpretation and review of laboratory results Abnormal [place], [place] Lymphocytes (Bld) [#/Vol] 1.77 10*3/uL [place], [place] Lymphocytes/100 WBC (Bld) 16 % Low 25 - 45 % [place] MCH (RBC) [Entitic mass] 26.6 pg 25 - 35 pg [place] MCHC (RBC) [Mass/Vol] 32.4 g/dL 28.4 - 34.8 g/dL [place] MCV (RBC) [Entitic vol] 82.3 fL 78 - 102 fL [place], [place] Monocytes (Bld) [#/Vol] 0.73 10*3/uL [place], [place] Monocytes/100 WBC (Bld) 7 % 2 - 8 % [place] Platelet mean volume (Bld) [Entitic vol] 11.8 fL 8.1 - 13.5 fL [place] Platelets (Bld) [#/Vol] NOT REPORTED [place], [place] Platelets (Bld) [#/Vol] 288 10*3/uL [place] RBC (Bld) [#/Vol] 4.17 10*6/uL 3.95 - 5.1 1 m/uL [place] RBC morphology finding Nom (Bld) NOT REPORTED [place] Segmented neutrophils/100 WBC (Bld) 75 % High 34 - 64 % [place] Segs Absolute 8.16 High [place] WBC (Bld) [#/Vol] 0.0 10*3/uL 0.0 per 10 0 WBC [place] WBC (Bld) [#/Vol] 10.8 10*3/uL [place] WBC Morphology NOT REPORTED [place] COMPREHENSIVE METABOLIC PANE Mikie 07-07-2020 Albumin [Mass/Vol] 2.3 g/dL Low 3.5 - 5.2 g/dL [place] Albumin/Globulin [Mass ratio] 0.9 {ratio} Low [place] ALP [Catalytic activity/Vol] 41 U/L 35 - 104 U/L [place] Comment on above: SPECIMEN MODERATELY HEMOLYZED, RESULTS MAY BE ADVERSELY AFFECTED ALT [Catalytic activity/Vol] 11 U/L 5 - 33 U/L [place] Comment on above: SPECIMEN MODERATELY HEMOLYZED, RESULTS MAY BE ADVERSELY AFFECTED Anion gap [Moles/Vol] 9 mmol/L 9 - 17 mmol/L [place] AST [Catalytic activity/Vol] 28 U/L <32 [place] Comment on above: SPECIMEN MODERATELY HEMOLYZED, RESULTS MAY BE ADVERSELY AFFECTED Bilirubin Ql (U) <0.10 Low 0.3 - 1.2 mg/dL [place], [place] Bun/Cre Ratio NOT REPORTED [place] Calcium [Mass/Vol] 5.5 mg/dL Critically low 8.6 - 1 0.4 mg/dL [place] Chloride [Moles/Vol] 118 mmol/L High 98 - 10 7 mmol/L [place] CO2 [Moles/Vol] 14 mmol/L Low 20 - 31 mmol/L [place] Creatinine [Mass/Vol] 0.6 mg/dL 0.5 - 0.9 mg/dL [place] GFR NOT REPORTED >60 mL/min [place] GFR Non- Pediatric GFR requires additional information. Refer to NKDEP website for calculator. >60 mL/min [place] GFR/1.73 sq M predicted among non-blacks MDRD (S/P/Bld) [Vol rate/Area] NOT REPORTED [place] GFR/1.73 sq M predicted among non-blacks MDRD (S/P/Bld) [Vol rate/Area] [place] Comment on above: Average GFR for <20 years old not available. Chronic Kidney Disease: <60 mL/min/1.73sq m Kidney failure: <15 mL/min/1.73sq m eGFR calculated using average adult body mass. Additional eGFR calculator available at: http://www.[employer]/multiple_crcl_2012.htm Glucose [Mass/Vol] 84 mg/dL 70 - 99 mg/dL [place] Interpretation and review of laboratory results Abnormal [place] Potassium [Moles/Vol] 5.1 mmol/L 3.7 - 5.3 mmol/L [place] Comment on above: SPECIMEN MODERATELY HEMOLYZED, RESULTS MAY BE ADVERSELY AFFECTED Protein [Mass/Vol] 5.0 g/dL Low 6.4 - 8.3 g/dL [place] Sodium [Moles/Vol] 141 mmol/L 135 - 144 mmol/L [place] Urea nitrogen [Mass/Vol] 10 mg/dL 6 - 20 mg/dL [place] HCG, QUANTITATIVE, on 07-07-2020 hCG Quant <1 <5 IU/L [place], [place] Comment on above: Non-preg premeno <=5 [...] activity/Vol] 15 U/L 13 - 60 U/L [place] Vital Signs Date Time Vital Sign Value Performing Clinician Facility 07-17-2023 11:42-0500 Body weight 127.82 kg [employer] Work Phone: [facility] 07-17-2023 11:42-0500 Diastolic blood pressure 70 mm[Hg] [employer] Work Phone: [facility] 07-17-2023 11:42-0500 Systolic blood pressure 118 mm[Hg] [facility] [employer] Work Phone: [phone] [place] [address] 10-19-2021 01:12-0400 Diastolic blood pressure 62 mm[Hg] PHYSICIAN NO [facility] 10-19-2021 01:12-0400 Heart rate 89 /min PHYSICIAN NO [facility] 10-19-2021 01:12-0400 Respiratory rate 18 /min PHYSICIAN NO [facility] 10-19-2021 01:12-0400 SaO2% (BldA) [Mass fraction] 100 % PHYSICIAN NO [facility] 10-19-2021 01:12-0400 Systolic blood pressure 130 mm[Hg] PHYSICIAN NO [facility] 10-18-2021 23:10-0400 Body height 167.64 cm PHYSICIAN NO [facility] 10-18-2021 23:10-0400 Body mass index (BMI) [Percentile] Per age and sex 99.1 % PHYSICIAN [facility] 10-18-2021 23:10-0400 Body mass index (BMI) [Ratio] 48.2 kg/m2 PHYSICIAN NO [facility] 10-18-2021 23:10-0400 Body weight 135.5 kg PHYSICIAN NO [facility] 10-18-2021 23:08-0400 Body temperature 98.4 [degF] PHYSICIAN NO [facility] 07-07-2020 21:51-0500 BMI (Body Mass Index) 42.93 kg/m2 Lisa Land [facility], [place] 07-07-2020 21:51-0500 Body weight 120.66 [facility] [place] 07-07-2020 21:51-0500 BP Diastolic 85 mm[Hg] [facility] [place] [facility]2020 21:51-0500 BP Systolic 136 mm[Hg] Lisa Land [facility] [place] 07-07-2020 21:51-0500 Height 167.6 cm Lisa Land [facility] [place] 07-07-2020 21:51-0500 Pulse (Heart Rate) 93 /min Lisa Land [facility] 07-07-2020 21:51-0500 Pulse Oximetry 97 % [facility] , JEREMIAS 07-07-2020 21:51-0500 Respiratory Rate 18 /min Lisa Almanza [facility] O H, JEREMIAS 07-07-2020 21:48-0500 Body Temperature 97.11 [degF] Lisa Almanza [facility] H, JEREMIAS Encounters Encounter Date Encounter Type Care Provider Facility Start: 07-17-2023 End: 07-17-2023 ambulatory CHUNG DOUGLASO Not Available Start: 07-17-2023 End: 07-17-2023 flow sheet Chung Yousif DO Work Phone: [facility] Comment on above: First trimester preg yesika; Vaginal bleeding in ; Threatened miscarriage; with uncertain viability, single or unspecified fetus Start: 07-16-2023 Chart abstracting Chung Yousif DO Work Phone: [facility] Start: 07-03-2023 End: 07-03-2023 ambulatory CHUNG YOUSIF Not Available Start: 07-03-2023 End: 07-03-2023 Office outpatient visit 5 minutes [facility] Benja Nurse [facility] Comment on above: GA: 8w0d Start: 08-30-2022 End: 08-30-[address] COLT TAYLOR . Facility: Start: 06-28-2022 End: 06-28-[address] COLT TAYLOR . Facility: Start: 04-01-2022 End: 04-02-[address] DELON NAJERA . Facility:[facility] Start: 10-19-2021 End: 10-19-2021 Emergency department patient visit PHYSICIAN NO FAMILY Facility:[facility] Start: 10-18-2021 End: 10-19-2021 Emergency department patient visit PHYSICIAN NO FAMILY [facility] Start: 07-07-2020 End: 07-08-2020 Emergency department patient visit DAVID AQUINO [facility] Start: 07-07-2020 End: 07-08-2020 Emergency department patient visit Lisa Land Work Phone: [facility] ED Comment on above: BV (bacterial vagino sis) (Primary Dx); Vaginal bleeding; Hypomagnesemia; Vitamin D deficiency; Acute cystitis with hematuria Procedures Date Procedure Procedure Detail Performing Clinician Start: 07-17-2023 Urnls dip stick/tabl et rgnt non-auto w/o micrscp Chung Benja DO Work Phone: Start: 07-03-2023 End: 07-03-2023 Urnls dip stick/tablet rgnt non-auto w/o micrscp Chung Benja DO Work Phone: Start: 10-19-2021 Mycology culture PHYSIC EDDI NO FAMILY Start: 10-19-2021 Trichomonas vaginali s detection PHYSICIAN NO FAMILY Start: 10-19-2021 Mycology culture PHYSIC EDDI NO FAMILY Start: 10-19-2021 Trichomonas vaginali s detection PHYSICIAN NO FAMILY Start: 07-08-2020 Calcium ionized Angela acosta Land Work Phone: Start: 07-08-2020 Us transvaginal [...] Phone: Start: 07-07-2020 Assay of lipase Brianin molly Stoner Work Phone: Start: 07-07-2020 Assay of magnesium Sinaimolly Stoner Work Phone: Start: 07-07-2020 Assay of phosphorus inorganic Brenda Stoner Work Phone: Start: 02-05-2021 Blood count complete auto&auto difrntl wbc Brenda Stoner Work Phone: Start: 07-07-2020 Comprehensive metabo lic panel Brenda Stoner Work Phone: Start: 07-07-2020 Gonadotropin chorion ic quantitative Brenda Stoner Work Phone: Plan of Treatment Date Care Activity Detail Author Start: 08-14-2023 End: 08-14-2023 Patient encounter procedure 08/14/2023 11:20 AM EDT Routine [facility] [address] [place] [id number] Halima Mills PA [address] [place], [place] [id number] [facility] OB Start: 07-17-2023 End: 07-17-2024 US for US OB VIABLILITY Imaging Routine with uncertain viability, single or unspecified fetus Expected: 07/17/2023 (Approximate), Expires: 07/17/2024 [facility] Work Phone: Comment on above: Expected: 07/17/2023 (Approximate), Expires: 07/17/2024 Start: 07-17-2023 End: 07-17-2023 Patient encounter procedure [facility] Comment on above: First trimester preg yesika Start: 07-03-2023 End: 07-03-2024 ABO/Rh ABO/Rh Lab Routine Missed menses Expected: 07/03/2023 (Approximate), Expires: 07/03/2024 [facility] Healthcare Comment on above: Expected: 07/03/2023 (Approximate), Expires: 07/03/2024 Start: 07-03-2023 End: 07-03-2024 Blood type and Indirect antibody screen panel - Blood Type and screen Lab Routine Missed menses Expected: 07/03/2023 (Approximate), Expires: 07/03/2024 [facility] Work Phone: Comment on above: Expected: 07/03/2023 (Approximate), Expires: 07/03/2024 Start: 07-03-2023 End: 07-03-2024 US Pelvis transvaginal US OB transvaginal Imaging Routine Missed menses Expected: 07/03/2023 (Approximate), Expires: 07/03/2024 [facility] Comment on above: Expected: 07/03/2023 (Approximate), Expires: 07/03/2024 Start: 02-01-2020 Influenza vaccination Flu vaccine (# 1) [place], [place] Start: 2018 Meningococcal (ACWY) vaccine (1 - 2-dose series) Meningococcal (ACWY) vaccine (1 - 2-dose series) [place] Start: 2018 Screening for Chlamy nancy trachomatis Chlamydia screen [place], [place] Start: 2017 HIV screening HIV screen [place], [place] Start: 2013 HPV vaccine (1 - 2-d ose series) HPV vaccine (1 - 2-dose series) [place] Start: 2009 DTaP/Tdap/Td vaccine (1 - Tdap) DTaP/Tdap/Td vaccine (1 - Tdap) [place] Start: 2003 Hepatitis A vaccine (1 of 2 - 2-dose series) Hepatitis A vaccine (1 of 2 - 2-dose series) [place] Start: 2003 Measles,Mumps,Rubell a (MMR) vaccine (1 of 2 - Standard series) Measles,Mumps,Rubella (MMR) vaccine (1 of 2 - Standard series) [place] Start: 2003 Varicella vaccine (1 of 2 - 2-dose childhood series) Varicella vaccine (1 of 2 - 2-dose childhood series) [place] Start: 2002 Hepatitis B vaccine (1 of 3 - 3-dose primary series) Hepatitis B vaccine (1 of 3 - 3-dose primary series) [place] Start: 2002 Hepatitis C screening Hepatitis C sc reen [place] Bacteria identified in Urine by Culture Urine culture Microbiology Routine Missed menses Ordered: 07/03/2023 [facility] Comment on above: Ordered: 07/03/2023 End: 07-07-2020 C.trachomatis N.gonorrhoeae DNA C.trachomatis N.gonorrhoeae DNA Microbiology STAT One Time for 1 Occurrences starting 07/07/2020 until 07/07/2020 [facility] Comment on above: One Time for 1 Occur rences starting 07/07/2020 until 07/07/2020 C.trachomatis N.gonorrhoeae DNA C.trachomatis N.gonorrhoeae DNA Microbiology Stat Sunquest Label print 07/07/2020 11:20 PM MAGALI [facility] End: 07-08-2020 Calcium, Ionized Calcium, Ionized Lab STAT One Time for 1 Occurrences starting 07/08/2020 until 07/08/2020 [facility] Comment on above: One Time for 1 Occur rences starting 07/08/2020 until 07/08/2020 CBC W Auto Different ial panel - Blood CBC and differential Lab Routine Missed menses Ordered: 07/03/2023 [facility] Comment on above: Ordered: 07/03/2023 End: 07-07-2020 Culture, Urine Culture, Urine Microbiology STAT One Time for 1 Occurrences starting 07/07/2020 until 07/07/2020 [facility] Comment on above: One Time for 1 Occur rences starting 07/07/2020 until 07/07/2020 Culture, Urine Culture, Urine Microbiology Stat [employer] Label print 07/07/2020 10:56 PM MAGALI [facility] [employer] Hemoglobin A1c measurement Hemoglobin A1c Lab Routine Missed menses Ordered: 07/03/2023 [facility] Comment on above: Ordered: 07/03/2023 Hepatitis B virus surface Ag [Presence] in Serum or Plasma by Immunoassay Hepatitis B surface antigen Lab Routine Missed menses Ordered: 07/03/2023 [facility] Comment on above: Ordered: 07/03/2023 Hepatitis C virus Ab [Presence] in Serum or Plasma by Immunoassay Hepatitis C antibody Lab Routine Missed menses Ordered: 07/03/2023 [facility] Comment on above: Ordered: 07/03/2023 HIV-1/HIV-2 antigen/antibody combination immunoassay HIV-1 and HIV-2 antibodies Lab Routine Missed menses Ordered: 07/03/2023 [facility] Comment on above: Ordered: 07/03/2023 Patient Education Common Breast Problems Pelvic Pain ED [facility] Work Phone: Patient referral [facility] Work Phone: Reagin Ab [Presence] in Serum by RPR RPR Lab Routine Missed menses Ordered: 07/03/2023 [facility] Comment on above: Ordered: 07/03/2023 Rubella antibody, IgG Rubella an tibody, IgG Lab Routine Missed menses Ordered: 07/03/2023 [facility] Comment on above: Ordered: 07/03/2023 End: 07-07-2020 US DUP ABD PEL RETRO SCROT LIMITED US DUP ABD PEL RETRO SCROT LIMITED Imaging STAT Once for 1 Occurrences starting 07/07/2020 until 07/07/2020 [place] Comment on above: Once for 1 Occurrenc es starting 07/07/2020 until 07/07/2020 US DUP ABD PEL RETRO SCROT LIMITED US DUP ABD PEL RETRO SCROT LIMITED Imaging STAT 07/08/2020 12:13 AM EST [place] Payers Date Payer Category Payer Unknown BCBS BCBS [id number] 2023-Present [phone] [address] [place] [address] [id number] 2023 Unknown [id number] 2021 Self-pay [id number] 2002 Unknown [id number] 2002 Unknown [id number] 2002 Unknown [id number] 2002 Unknown [id number] 2002 Unknown [id number] 1959 Medicaid [id number] 1959 Unknown [id number] Unknown [id number] Social History Date Type Detail Facility Start: 07-07-2020 End: 07-16-2023 Tobacco smoking status MSIS Never smoker [facility] Start: 07-07-2020 Tobacco use and exposure Never used [facility] [employer] Start: 2002 Sex Assigned At Not on file [facility] [employer] Exposure to SARS-CoV-2 (event) Not sure [facility] Start: 10-19-2021 Tobacco smoking status [facility] Smoker (finding) [facility] Start: 2002 Sex Assigned At Female F [facility] Tobacco smoking status [facility] Tobacco smoking consumption unknown [facility] Start: 05-22-2023 [facility] Start: 07-16-2023 Gender identity Not on file [facility] Start: 07-16-2023 End: 07-17-2023 Alcohol intake Lifetime non-drinker (finding) [facility] Start: 07-16-2023 History of Social function [facility] History of Present illness Narrative 07-17-2023 Chung Yousif DO - 07/17/2023 11:10 AM EST Note Date & Type Note Facility 07-17-2023 History of Presen t illness Narrative Reason for Appointment: Patient ID: Teoodro Upton is a 23 y.o. female who presents for Routine Visit Patient presents today for Return OB appointment. Current Medications: has a current medication list which includes the following prescription(s): [id number]-[id number] and promethazine. Medical History: Active Ambulatory Problems Diagnosis Date Noted No Active Ambulatory Problems Resolved Ambulatory Problems Diagnosis Date Noted No Resolved Ambulatory Problems Past Medical History: Diagnosis Date ADD (attention deficit disorder) Asthma ([facility]) Family History Problem Relation Name Age of Onset Diabetes Mother ADD / ADHD Mother Social History Tobacco Use Smoking status: Never Smokeless tobacco: Not on file Substance Use Topics Alcohol use: Never Drug use: Never History reviewed. No pertinent surgical history. No Known Allergies Review of Systems: Review of Systems Constitutional: Negative. HENT: Negative. Eyes: Negative. Respiratory: Negative. Cardiovascular: Negative. Gastrointestinal: Negative. Musculoskeletal: Negative. Skin: Negative. Neurological: Negative. Psychiatric/Behavioral: Negative. All other systems reviewed and are negative. Hematological: Negative. Endocrine: Negative. Objective Physical Exam Constitutional: Appearance: Normal appearance. She is normal weight. HENT: Head: Normocephalic. Cardiovascular: Rate and Rhythm: Normal rate. Pulses: Normal pulses. Pulmonary: Effort: Pulmonary effort is normal. Breath sounds: Normal breath sounds. Abdominal: Palpations: Abdomen is soft. Musculoskeletal: General: Normal range of motion. Neurological: General: No focal deficit present. Mental Status: She is alert and oriented to person, place, and time. Psychiatric: Mood and Affect: Mood normal. Behavior: Behavior normal. Thought Content: Thought content normal. Judgment: Judgment normal. Vitals and nursing note reviewed. Vitals: There is no height or weight on file to calculate BMI. BP: 118/70 Patient's last menstrual period was 05/08/2023. Assessment/Plan Encounter Diagnoses Name Primary? First trimester Vaginal bleeding in Threatened miscarriage with uncertain viability, single or unspecified fetus Phenergan sent for nausea and US ordered for viability Follow Up: Patient is to return to office in 4 week for routine OB appointment. Documented by AMAYA Shah on behalf of: Chung Yousif DO documented in this encounter [facility] History of Present illness Narrative 07-03-2023 Sarina [...] raw or undercooked meat, stay away from [facility], do not change litter boxes, eat 6 [...] Sarina Kilgore LPN documented in this encounter [facility] Evaluation note Note Date & Type Note Facility Evaluation note No assessment information [facility] Work Phone: Evaluation note Note Date & Type Note Facility Evaluation note Diagnosis Missed menses Nausea and vomiting, unspecified vomiting type documented in this encounter [facility] Evaluation note Note Date & Type Note Facility Evaluation note Diagnosis First trimester state, incidental Vaginal bleeding in Threatened miscarriage Threatened , unspecified as to episode of care with uncertain viability, single or unspecified fetus documented in this encounter [facility] Hospital Discharge instructions Note Date & Type Note Facility Hospital Discharge instructions Additional Instructions Please follow up as we discussed so you can have your concerns further evaluated. [facility] Work Phone: Discharge Instructions * Instructions* Brenda Stoner DO - 07/08/2020 [facility] ED Clinic List Healthcare Providers Services Day of Week/ Hours [facility] Services [address] [facility] Pediatric Primary Care Adult Primary Care PRINCIPAL ASSOCIATE//Specialty Clinics Friday 8:00a 4:30p [address] Adult Medicine, Pediatrics, PRINCIPAL ASSOCIATE Friday 8:30a 4:30p [facility] Surgery [address] [facility] Friday 8:30a 11:00a [facility] [address] [facility] Adult Internal Medicine ([facility]) PRINCIPAL ASSOCIATE Clinic Pediatric Clinic Friday, Friday, , Friday 8:00a 4:30p Friday 1:00p 4:30p Friday, Friday, 8:00a 5:00p; Friday 8:00a 12:30p Friday 1p 4p Friday, Friday, , Friday 8:30a 4:15p Friday 12:30p 4:15p Health Department [facility] [address] [place] [address] Pediatric Primary Care Adult Primary Care OB/ Friday, Friday 8a 12p 8a 4:45p [facility] [address] [place] [address] [place] [address] # Pre & Post Adoption Counseling Support / nutrition Care Reward Incentive Program [facility] Fri, , Fri, Fri 10:00a 4:30p Thur 10:00a 7:30p E Jason Location Friday - Friday 10a 4:30p [facility] Clinics PRINCIPAL ASSOCIATE [address] Adult Internal Medicine [address] [facility] Pediatrics [address] [facility], [address] Neuro / Headache [address] Friday 8:30a 5p [facility] [address] [facility] Fri, , , Fri 9:00a 4:30p Wed 1:00p 4:30p [facility] [address] [facility] [address] [facility] Friday 8:30a 5:00p [facility] Specialty Clinics [address] [facility] Building [address] Burn/Plastic, ENT, GI, Orthopedics, Surgical / Trauma, Urology, Vascular Friday 8:00 4:30p Call for an appointment [facility] [address] [facility] Adult Medicine, Eye Clinic, Dental Patient must be certified homeless Under age 18 not accepted Friday 8:00 4:30p [facility] [address] [facility] OB Friday, Friday, Friday, Friday 9a 5p 9a 6p Friday (OB only) [facility] [address] [facility] OB/ Friday 11a 7p , Fri, 9a 5p Friday 8a 4p 1st Friday 9a 1p Podiatry Clinic [address] [facility] [address] Friday 8:00 4:30 p [facility] [address] Free nurse visits Liberal programs Counseling Class Call or walk in [facility] [address] Various Clinics 8a 5:30p [facility] Family Medicine [facility] [address] Family Practice Friday 8a 4:30p [place] [id number] [address] [place] [address] Friday 8a 4:30p Friday 8a 4:30p 8a 8p Outpatient Clinics [facility] [address] [facility] Friday 9a 5p Diabetic Education Services Call for an appointment [facility] Heart Failure Clinic [address] [facility] Friday 8:30a 4p Dental Services [facility] [address] [facility] Must have source of income and must bring (2) recent check stubs to appointment By appointment only [facility] [address] Patient must be homeless, call for eligibility guidelines. Under age 18 NOT accepted Days and hours vary (Doors open at 8:30a day of week varies) Call for an appointment Miscellaneous Information [facility] Call for Help [phone] Call for an appointment H.E.L.P (Hospital Eligibility Link Program) toll free For financial assistance * Attachments The following attachments cannot be sent through Care Everywhere. * Bacterial Vaginosis (Burkinan) * UTI (Urinary Tract Infection): Female (Burkinan) * Vitamin D: General Info (Burkinan) documented in this encounter Assessments Diagnosis BV [...] now today heavier bleeding Reason Comments Amenorrhea Reason Comments Routine Visit Ordered Prescriptions (unrec ognized section and content) [...] section and content) DATE CREATED AUTHOR 07/16/2020 [facility] DATE CREATED AUTHOR AUTHOR'S ORGANIZ ATION 09/07/2022 [facility] DATE CREATED AUTHOR AUTHOR'S ORGANIZ ATION 03/13/2023 [facility] DATE CREATED AUTHOR AUTHOR'S ORGANIZ ATION 07/19/2023 [facility] EPIC Care Teams (unrecognized sec tion [...] BE BASED ON THE PRIMARY CLINICAL RECORDS. [employer] provides no warranty or guarantee of the accuracy or completeness of information in this document.
[2023-07-25] MEDS: ONDANSETRON 4 MG RAPDIS TABLET SL (10:59)
[2023-07-25 11:20] LABS: Bilirubin Urine NEGATIVE (NEGATIVE); Blood Urine NEGATIVE (NEGATIVE); Clarity Urine SL CLOUDY (CLEAR); Color Urine YELLOW (YELLOW); Glucose Urine UA NEGATIVE (NEGATIVE); Ketones Urine NEGATIVE (NEGATIVE); Leukocyte Esterase Urine SMALL (NEGATIVE); Nitrite Urine NEGATIVE (NEGATIVE); Protein Urine NEGATIVE (NEG/TRACE); Specific Gravity Urine >=1.030 (1.005-1.025); Urobilinogen Urine 0.2 EU/dL (0.2-1.0); pH Urine 5.5 (5.0-9.0)
[2023-07-25 11:37] LABS: Bacteria Urine MODERATE #/HPF (NONE SEEN); Cast Seen? NONE SEEN #/LPF (NONE SEEN); Crystals Seen? None Seen #/HPF (None Seen); Mucus Urine TRACE (NONE SEEN); RBC Urine 0-2 #/HPF (0-2); Squamous Epithelial Cell Urine MANY #/LPF (NONE/RARE)
--- NOTE | 2023-07-25 15:48 | ED.GENADUL1 ---
HPI - General Adult General Chief complaint: Nausea/Vomiting/Diarrhea Stated complaint: NASEAU, VOMITING Time Seen by Provider: 07/25/23 11:28 Source: patient Mode of arrival: walk-in Limitations: no limitations History of Present Illness HPI narrative: Patient is a 23-year-old female who is presenting to the ER with chief complaint nausea, vomiting, diarrhea that started this morning several times and also having clearish discharge coming from her vagina. Patient is approximate 11 weeks . Patient is a G1, P0. Patient has Zofran and Phenergan at home to help with nausea. Patient did not take that, she is worried about the baby with a clear discharge so she came directly into the ER. Patient has no sick contacts that she is aware of. Patient has no pelvic pain, no vaginal bleeding. Patient is taking vitamins daily. Patient has an appointment at approximately 14 weeks in the OB office. Patient is here with her boyfriend and her mother. No other acute complaints All systems are negative except as noted/marked. All systems reviewed and otherwise negative. Nurses note and vital signs reviewed and patient is not hypoxic. General: The patient appears well and in no apparent distress. Patient is resting comfortably on cart. Patient is not toxic, lethargic, or listless. Poor hygiene. Skin: Warm, dry, no pallor noted. There is no rash noted. No petechiae, purpura. Head: Normocephalic, atraumatic Eye: Normal conjunctiva, no drainage, EOMI. PERRL Ears, Nose, Mouth, and Throat: oral mucosa is moist. Nares patent. Mouth without vesicles. Cardiovascular: Regular Rate and Rhythm, no murmur, gallop, rub Respiratory: Patient is in no distress, no accessory muscle use, lungs are clear to auscultation, no wheezing, rales or rhonchi Back: non-tender, no CVA tenderness bilaterally to percussion. No CT LS midline pain GI: Obese, no tenderness to palpation, no masses appreciated. No rebound, guarding, or rigidity noted. No distention. No suprapubic tenderness to palpation, no flank pain bilateral Musculoskeletal: Patient has full range of motion of all of the extremities, no motor, sensory, or focal neurological deficits Neurological: A&O x4, normal speech Psychiatric: Cooperative Related Data Home Medications Medication Instructions Recorded Confirmed ondansetron HCl 4 mg tablet 4 mg PO Q6H PRN nausea and vomiting 07/25/23 07/25/23 promethazine 12.5 mg tablet 12.5 mg PO Q6H PRN nausea and 07/25/23 07/25/23 vomiting Allergies Allergy/AdvReac Type Severity Reaction Status Date / Time No Known Drug Allergies Allergy Verified 03/26/23 11:41 Exam Constitutional Vital Signs, click to edit/add: Last Vital Signs Temp 98.1 F 07/25/23 10:33 Pulse 95 H 07/25/23 10:33 Resp 18 07/25/23 10:33 BP 116/70 07/25/23 10:33 Pulse Ox 99 07/25/23 10:33 O2 Del Method Room Air 07/25/23 10:33 Course Vital Signs Vital signs: Vital Signs Temperature 98.1 F 07/25/23 10:33 Pulse Rate 95 H 07/25/23 10:33 Respiratory Rate 18 07/25/23 10:33 Blood Pressure 116/70 07/25/23 10:33 Pulse Oximetry 99 07/25/23 10:33 Oxygen Delivery Method Room Air 07/25/23 10:33 Temperature 98.1 F 07/25/23 10:33 Pulse Rate 95 H 07/25/23 10:33 Respiratory Rate 18 07/25/23 10:33 Blood Pressure 116/70 07/25/23 10:33 Pulse Oximetry 99 07/25/23 10:33 Oxygen Delivery Method Room Air 07/25/23 10:33 Medical Decision Making MDM Narrative Medical decision making narrative: Patient was given oral Zofran which has helped her nausea and vomiting. Unclear why patient did not take Zofran or Phenergan at home since she was having nausea and vomiting. I did ask the patient this, she stated that she was very concerned about her because the clear vaginal discharge so she came directly to the ER. Patient had a few watery stools this morning. Patient's urine shows no acute signs of infection, it is extremely contaminated with epithelial cells. Patient does have white blood cells and bacteria, but we will send urine culture before patient is placed on antibiotics. Patient has no urinary frequency urgency or burning. After 10-minute discussion with patient, boyfriend and mother at bedside, patient brought up what is my clear discharge and why is it there I have been asked patient if I can talk about her care in front of her boyfriend and mother, patient said yes. Patient was then asked that she had intercourse last 24 hours, she could not remember for unknown reason, but then she said yes I think before bed last night. I then asked if patient's boyfriend ejaculated in her, he was too busy playing on his phone the entire time during HPI and physical exam to answer my question. I then asked him again if he ejaculated in her last night that could be the cause of her clearish whitish discharge and he said I do not know, maybe a little bit patient said after intercourse last evening she rolled over and went to bed, she has not got up this morning. So most likely with patient's vomiting, diarrhea, and forcefully squeezing abdominal muscles in possible pelvic floor muscles/vaginal canal while she is vomiting and diarrhea, she is probably draining patient's boyfriend ejaculation. Patient's mother started laughing, agreed, and patient agrees to. No itching, odors, no other signs of STD, bacterial vaginosis, or yeast infection. Patient will use her Zofran and Phenergan if needed. Patient will follow-up at scheduled appointment. Lab Data Labs: Lab Results 07/25/23 Range/Units 10:51 Urine Color Yellow (YELLOW) Urine Clarity Sl cloudy (CLEAR) Urine pH 5.5 (5.0-9.0) Ur Specific [place] >=1.030 A (1.005-1.025) Urine Protein Negative (NEG/TRACE) mg/dL Urine Glucose (UA) Negative (NEGATIVE) mg/dL Urine Ketones Negative (NEGATIVE) mg/dL Urine Occult Blood Negative (NEGATIVE) Urine Nitrite Negative (NEGATIVE) Urine Bilirubin Negative (NEGATIVE) Urine Urobilinogen 0.2 (0.2-1.0) EU/dL Ur Leukocyte Esterase Small A (NEGATIVE) Urine RBC 0-2 (0-2) #/HPF Urine WBC 10-20 A (NONE SEEN) #/HPF Ur Squamous Epith Cells Many A (NONE/RARE) #/LPF Urine Crystals None seen (None Seen) #/HPF Urine Bacteria Moderate A (NONE SEEN) #/HPF Urine Casts None seen (NONE SEEN) #/LPF Urine Mucus Trace A (NONE SEEN) Discharge Plan Discharge Chief Complaint: Nausea/Vomiting/Diarrhea Clinical Impression: Diarrhea, Nausea & vomiting Patient Disposition: Home, Self-Care Time of Disposition Decision: 11:54 Condition: Fair Prescriptions / Home Meds: No Action ondansetron HCl 4 mg tablet 4 mg PO Q6H PRN (Reason: nausea and vomiting) promethazine 12.5 mg tablet 12.5 mg PO Q6H PRN (Reason: nausea and vomiting) Instructions: Acute Nausea and Vomiting (ED), Acute Diarrhea (ED) Additional Instructions: Use your Zofran and Phenergan that you have at home to help with nausea and vomiting. Increase fluids, Gatorade, Powerade or water. Follow-up with [facility] if any other acute concerns Stand Alone Forms: Portal Instructions Referrals: Physician,Non-Staff, MD [Primary Care Provider] - 1 week Discharge Date/Time: 07/25/23 12:06
== END 2023-07-25 12:06 | disposition home or self-care (01) ==
PROVIDERS: Emergency Provider Emergency Medicine
DX: O26.891 Other specified pregnancy related conditions, first trimester (principal); R11.2 Nausea with vomiting, unspecified; R19.7 Diarrhea, unspecified; Z3A.11 11 weeks gestation of pregnancy
CPT/HCPCS: 81001; 87086; 99283; Q0162

== ENCOUNTER 2023-08-22 16:38 | Emergency (ER) | payer SELFPAY ==
[2023-08-22 16:44] VITALS: BP 157/86; PULSE 85; RESP 18; TEMP 37.1; O2SAT 99; BMI 43.4
--- OUTSIDE RECORDS SUMMARY | 2023-08-22 16:48 | XMS_ITS | CCD ---
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 Name Role Phone Unavailable Primary Care Provider [...] Unavailable GRECHNY ., AMAYA FRANCISCO Consulting Unavailsaadia NGUYEN, DR IBRAHIM LISTED Primary Care Unavaila ble MARKER ., DR JERNIGAN Attending Unavailable MARKER ., DR JERNIGAN Admitting Unavailable MISC, DR VAN Primary Care Unavailable MARKER ., DR JERNIGAN Consulting Unavailable STRAWSER, LUH Consulting Unavailable NO FAMILY, PHYSICIAN Primary Care Unavailable Anders Sesay Jr Attending Unavailable Anders Sesay Jr Admitting Unavailable Unavailable Primary Care Provider UnavailCHUNG Lyons Attending Unavailable HALIMA CULLEN Attending Unavailable Allergies Allergy Classification Reported Allergen(s) Allergy Type Date of Onset Reaction(s) Facility (1 source) Latex Propensity to adverse reactions to drug 07-07-2020 [facility], [place] Medications Current Medications Medication Drug [...] days 40 tablet 0 07/03/2023 07/13/2023 Active Lzwboipd-Goj-Wm-FA ( 1 + IRON PO) (4 sources) Vonozzor-Yqj-Pf-FA ( 1 + IRON PO) Take by [...] mg tablet Discontinued 150 MG PO Once 1 June 27, 2020 4:52am October 19, 2021 [...] UA Negative Negative - 4(70) +++ mg/dL [facility] Blood, UA Negative Negative - 50 William/mcL [facility] Clarity, UA Clear [facility] Color, UA Yellow [facility] Glucose, UA Negative Negative - 1999(110) ++++ mg/dL [facility] Interpretation and review of laboratory results Abnormal [facility] Ketones, UA Negative Negative - 160(16) ++++ mg/dL [facility] Leukocytes, UA Positive Negative - 500+++ Gerald/mcL [facility] Nitrite, UA Negative Negative - Positive [facility] pH, UA 7.0 5 - 9 [facility] Protein, UA Negative Negative - 1999(20) ++++ mg/dL [facility] Spec Grav, UA 1.020 1 - 1.03 [facility] Urobilinogen, UA 0.2 0.2 - 12 mg/dL [facility] HCG ( test) Ql (U)o n 07-03-2023 Interpretation and review of laboratory results Abnormal [facility] Preg Test, Ur Negative [facility] Urinalysis macro (dipstick) panel (U)on 07-03-2023 Bilirubin, UA Negative Negative - 4(70) +++ mg/dL [facility] Blood, UA Negative Negative - 50 William/mcL [facility] Clarity, UA Clear [facility] Color, UA Yellow [facility] Glucose, UA Negative Negative - 1999(110) ++++ mg/dL [facility] Interpretation and review of laboratory results Normal [facility] Ketones, UA Negative Negative - 160(16) ++++ mg/dL [facility] Leukocytes, UA Negative Negative - 500+++ Gerald/mcL [facility] Nitrite, UA Negative Negative - Positive [facility] pH, UA 5.5 5 - 9 [facility] Protein, UA Negative Negative - 1999(20) ++++ mg/dL [facility] Spec Grav, UA 1.010 1 - 1.03 [facility] Urobilinogen, UA 1.0 0.2 - 12 mg/dL [facility] XR FOOT RT MIN 3 [...] PADDY SAPP Date: 2022-08-30 14:42 Normal [facility] CBC AUTO DIFFon 06-28-2022 BASO # 0.0 103/ul Normal 0.0-0.1 [facility] Comment on above: Performed By: #### C BC #### [facility] [address] [place] [address] Dr. Jerald Poon Basophils/100 WBC (Bld) 0.3 % Normal 0.2-2.0 [facility] Comment on above: Performed By: #### C BC #### [facility] [address] [place] [address] Dr. Jerald Poon EO # 0.1 103/ul Normal 0.0-0.7 [facility] Comment on above: Performed By: #### C BC #### [facility] [address] [place] [address] Dr. Jerald Poon Eosinophils/100 WBC (Bld) 1.1 % Normal 0.9-7.0 [facility] Comment on above: Performed By: #### C BC #### [facility] [address] [place] [address] Dr. Jerald Poon Erythrocyte distribution width (RBC) [Ratio] 14.5 % Normal 11.0-15.0 [facility] Comment on above: Performed By: #### C BC #### [facility] [address] [place] [address] Dr. Jerald Poon Hematocrit (Bld) [Volume fraction] 36.7 % Normal 36.0-48.0 [facility] Comment on above: Performed By: #### C BC #### [facility] [address] [place] [address] Dr. Jerald Poon Hemoglobin (Bld) [Mass/Vol] 13.0 g/dL Normal 12.0-16.0 [facility] Comment on above: Performed By: #### C BC #### [facility] [address] [place] [address] Dr. Jerald Poon IG # 0.04 10e3/ul Critically high 0.00-0.03 [facility] Comment on above: Performed By: #### C BC #### [facility] [address] [place] [address] Dr. Jerald Poon IG % 0.3 % Normal 0.0-0.5 [facility] Comment on above: Performed By: #### C BC #### [facility] [address] [place] [address] Dr. Jerald Poon LYMPH # 3.0 103/ul Normal 1.2-3.8 [facility] Comment on above: Performed By: #### C BC #### [facility] [address] [place] [address] Dr. Jerald Poon Lymphocytes/100 WBC (Bld) 26.2 % Normal 20.5-60.0 [facility] Comment on above: Performed By: #### C BC #### [facility] [address] [place] [address] Dr. Jerald Poon MANUAL DIFF REQ NO Normal [facility] Comment on above: Performed By: #### C BC #### [facility] [address] [place] [address] Dr. Jerald Poon MCH (RBC) [Entitic mass] 27.1 pg Normal 26.7-34.0 [facility] Comment on above: Performed By: #### C BC #### [facility] [address] [address] [address] Jerald Poon MCHC (RBC) [Mass/Vol] 35.4 g/dL Critically high 29.9-35.2 [facility] Comment on above: Performed By: #### C BC #### [facility] [address] [address] [address] Jerald Poon MCV (RBC) [Entitic vol] 76.6 fL Critically low 81.0-99.0 [facility] Comment on above: Performed By: #### C BC #### [facility] [address] [place] [address] Dr. Jerald Poon MONO # 0.8 103/ul Normal 0.3-0.8 [facility] Comment on above: Performed By: #### C BC #### [facility] [address] [place] [address] Dr. Jerald Poon Monocytes/100 WBC (Bld) 7.0 % Normal 1.7-12.0 [facility] Comment on above: Performed By: #### C BC #### [facility] [address] [place] [address] Dr. Jerald Poon NEUT # 7.5 103/ul Critically high 1.4-6.[address] [facility] Comment on above: Performed By: #### C BC #### [facility] [address] [place] [address] Dr. Jerald Poon Neutrophils/100 WBC (Bld) 65.1 % Normal 43.0-75.0 [facility] Comment on above: Performed By: #### C BC #### [facility] [address] [place] [address] Dr. Jerald Poon Platelet mean volume (Bld) [Entitic vol] 10.0 fL Normal 9.5-13.5 [facility] Comment on above: Performed By: #### C BC #### [facility] [address] [place] [address] Dr. Jerald Poon PLT 387 103/ul Normal 150-450 [facility] Comment on above: Performed By: #### C BC #### [facility] [address] [place] [address] Dr. Jerald Poon RBC 4.79 106/ul Normal 4.20-5.40 [facility] Comment on above: Performed By: #### C BC #### [facility] [address] [place] [address] Dr. Jerald Poon WBC 11.6 103/ul Critically high 4.0-11.0 [facility] Comment on above: Performed By: #### C BC #### [facility] [address] [place] [address] Dr. Jerald Poon CULTURE URINEon 06-28-2022 CULTURE URINE Culture Observations: LIGHT GROWTH OF MIXED GENITAL ZACARIAS. NO POTENTIAL PATHOGENS SEEN. Normal [facility] Comment on above: Performed By: #### U RCX #### [facility] [address] [place] [address] Dr. Jerald Poon ER URINE PROFILEon 3 Bilirubin Ql (U) Negative Normal NEGATIVE [facility] Comment on above: Performed By: #### U MICRO, ERUR #### [facility] [address] [place] [address] Dr. Jerald Poon Clarity (U) CLEAR Normal CLEAR [facility] Comment on above: Performed By: #### U MICRO, ERUR #### [facility] [address] [place] [address] Dr. Jerald Poon Color (U) YELLOW Normal YELLOW [facility] Comment on above: Performed By: #### U MICRO, ERUR #### [facility] [address] [place] [address] Dr. Jerald Poon ERUAHD A micrscopic examination will be performed if indicated. Normal [facility] Comment on above: Performed By: #### U MICRO, ERUR #### [facility] [address] [place] [address] Dr. Jerald Poon Glucose Ql (U) Negative Normal NEGATIVE [facility] Comment on above: Performed By: #### U MICRO, ERUR #### [facility] [address] [address] [address] Jerald Poon Hemoglobin Ql (U) Negative Normal NEGATIVE [facility] Comment on above: Performed By: #### U MICRO, ERUR #### [facility] [address] [place] [address] Dr. Jerald Poon Ketones Ql (U) 40 mg/dl Abnormal NEGATIVE [facility] Comment on above: Performed By: #### U MICRO, ERUR #### [facility] [address] [place] [address] Dr. Jerald Poon LEUKOCYTES TRACE Abnormal NEGATIVE [facility] Comment on above: Performed By: #### U MICRO, ERUR #### [facility] [address] [place] [address] Dr. Jerald Poon Nitrite Ql (U) Negative Normal NEGATIVE [facility] Comment on above: Performed By: #### U MICRO, ERUR #### [facility] [address] [place] [address] Dr. Jerald Poon pH (U) 6.0 [pH] Normal 5-9 [facility] Comment on above: Performed By: #### U MICRO, ERUR #### [facility] [address] [place] [address] Dr. Jerald Poon SPEC GRAVITY >=1.030 Abnormal 1.005-<=1.025 [facility] Comment on above: Performed By: #### U MICRO, ERUR #### [facility] [address] [place] [address] Dr. Jerald Poon UA PROTEIN Negative Normal NEGATIVE/ TRACE [facility] Comment on above: Performed By: #### U MICRO, ERUR #### [facility] [address] [place] [address] Dr. Jerald Poon UR MICRO IND INDICATED Normal [facility] Comment on above: Performed By: #### U MICRO, ERUR #### [facility] [address] [place] [address] Dr. Jerald Poon Urobilinogen Qn (U) 0.2 {Lyly'U}/dL Normal 0.2 - 1. 0 [facility] Comment on above: Performed By: #### U MICRO, ERUR #### [facility] [address] [place] [address] Dr. Jerald Poon PREG QUANT HCGon 06-28-2022 HCG QUANT <1 Normal [facility] Comment on above: Performed By: #### P REGQNT #### [facility] [address] [place] [address] Dr. Jerald Poon HCG RANGE SEE BELOW Normal [facility] Comment on above: Result Comment: 5-50 0.2-1 WEEK 50-500 1-2 WEEKS 100-5,000 2-3 WEEKS 500-10,000 3-4 WEEKS 1,000-50,000 4-5 WEEKS 10,000-100,000 5-6 WEEKS 15,000-200,000 6-8 WEEKS 10,000-100,000 2-3 MONTHS Performed By: #### P REGQNT #### [facility] [address] [place] [address] Dr. Jerald Poon PROF CHEM 8 (BAS METB)on Anion gap [Moles/Vol] 14.0 mmol/L Normal Th [facility] Comment on above: Performed By: #### C BC #### [facility] [address] [place] [address] Dr. Jerald Poon Calcium [Mass/Vol] 9.6 mg/dL Normal 8.5-10.1 [facility] Comment on above: Performed By: #### C BC #### [facility] [address] [place] [address] Dr. Jerald Poon Chloride [Moles/Vol] 101 mmol/L Normal 98-107 [facility] Comment on above: Performed By: #### C BC #### [facility] [address] [place] [address] Dr. Jerald Poon CO2 [Moles/Vol] 25.4 mmol/L Normal 21.0-32.0 [facility] Comment on above: Performed By: #### C BC #### [facility] [address] [place] [address] Dr. Jerald Poon Creatinine [Mass/Vol] 0.92 mg/dL Normal 0.55-1.02 [facility] Comment on above: Performed By: #### C BC #### [facility] [address] [place] [address] Dr. Jerald Poon EGFR-AF GREEK >60 Normal >=60 [facility] Comment on above: Performed By: #### C BC #### [facility] [address] [address] [address] Jerald Poon EGFR-NON AF GREEK >60 Normal >=60 [facility] Comment on above: Performed By: #### C BC #### [facility] [address] [address] [address] Jerald Poon Glucose [Mass/Vol] 101 mg/dL Normal 74-106 [facility] Comment on above: Performed By: #### C BC #### [facility] [address] [place] [address] Dr. Jerald Poon Potassium [Moles/Vol] 3.4 mmol/L Critically low 3.5-5.1 [facility] Comment on above: Performed By: #### C BC #### [facility] [address] [address] [address] Jerald Poon Sodium [Moles/Vol] 137 mmol/L Normal 136-145 [facility] Comment on above: Performed By: #### C BC #### [facility] [address] [place] [address] Dr. Jerald Poon Urea nitrogen [Mass/Vol] 11.0 mg/dL Normal 7.0-18.0 [facility] Comment on above: Performed By: #### C BC #### [facility] [address] [place] [address] Dr. Jerald Poon Urea nitrogen/Creatinine [Mass ratio] 12.0 mg/mg Normal [facility] Comment on above: Performed By: #### C BC #### [facility] [address] [place] [address] Dr. Jerald Poon TSHon 06-28-2022 TSH 1.319 uIU/mL Normal 0.358-3.740 [facility] Comment on above: Performed By: #### C BC #### [facility] [address] [place] [address] Dr. Jerald Poon URINE MICROSCOPIC ONLYon BACTERIA SMALL Abnormal NONE SEEN [facility] Comment on above: Performed By: #### U MICRO, ERUR #### [facility] [address] [place] [address] Dr. Jerald Poon Bacteria identified Cx Nom (U) INDICATED Normal [facility] Comment on above: Performed By: #### U MICRO, ERUR #### [facility] [address] [place] [address] Dr. Jerald Poon CAST NONE SEEN Normal NONE SEEN [facility] Comment on above: Performed By: #### U MICRO, ERUR #### [facility] [address] [place] [address] Dr. Jerald Poon Crystals LM Nom (Urine sed) NONE SEEN Normal NONE SEEN [facility] Comment on above: Performed By: #### U MICRO, ERUR #### [facility] [address] [place] [address] Dr. Jerald Poon Epithelial cells LM Ql (Urine sed) FEW Abnormal NONE SEEN /RARE [facility] Comment on above: Performed By: #### U MICRO, ERUR #### [facility] [address] [place] [address] Dr. Jerald Poon MUCOUS NONE SEEN Normal NONE SEEN [facility] Comment on above: Performed By: #### U MICRO, ERUR #### [facility] [address] [place] [address] Dr. Jerald Poon RBC NONE SEEN Abnormal 0-2 [facility] Comment on above: Performed By: #### U MICRO, ERUR #### [facility] [address] [place] [address] Dr. Jerald Poon WBC 2-5 Abnormal NONE SEEN [facility] Comment on above: Performed By: #### U MICRO, ERUR #### [facility] [address] [place] [address] Dr. Jerald Poon CBC AUTO DIFFon 04-01-2022 BASO # 0.0 103/ul Normal 0.0-0.1 [facility] Comment on above: Performed By: #### C BC #### [facility] [address] [address] [address] Jerald Poon Basophils/100 WBC (Bld) 0.5 % Normal 0.2-2.0 [facility] Comment on above: Performed By: #### C BC #### [facility] [address] [place] [address] Dr. Jerald Poon EO # 0.1 103/ul Normal 0.0-0.7 [facility] Comment on above: Performed By: #### C BC #### [facility] [address] [place] [address] Dr. Jerald Poon Eosinophils/100 WBC (Bld) 1.7 % Normal 0.9-7.0 [facility] Comment on above: Performed By: #### C BC #### [facility] [address] [place] [address] Dr. Jerald Poon Erythrocyte distribution width (RBC) [Ratio] 14.2 % Normal 11.0-15.0 [facility] Comment on above: Performed By: #### C BC #### [facility] [address] [place] [address] Dr. Jerald Poon Hematocrit (Bld) [Volume fraction] 36.7 % Normal 36.0-48.0 [facility] Comment on above: Performed By: #### C BC #### [facility] [address] [place] [address] Dr. Jerald Poon Hemoglobin (Bld) [Mass/Vol] 12.1 g/dL Normal 12.0-16.0 [facility] Comment on above: Performed By: #### C BC #### [facility] [address] [place] [address] Dr. Jerald Poon IG # 0.01 10e3/ul Normal 0.00-0.03 [facility] Comment on above: Performed By: #### C BC #### [facility] [address] [place] [address] Dr. Jerald Poon IG % 0.1 % Normal 0.0-0.5 [facility] Comment on above: Performed By: #### C BC #### [facility] [address] [place] [address] Dr. Jerald Poon LYMPH # 2.3 103/ul Normal 1.2-3.8 [facility] Comment on above: Performed By: #### C BC #### [facility] [address] [place] [address] Dr. Jerald Poon Lymphocytes/100 WBC (Bld) 30.8 % Normal 20.5-60.0 [facility] Comment on above: Performed By: #### C BC #### [facility] [address] [place] [address] Dr. Jerald Poon MANUAL DIFF REQ NO Normal [facility] Comment on above: Performed By: #### C BC #### [facility] [address] [place] [address] Dr. Jerald Poon MCH (RBC) [Entitic mass] 27.3 pg Normal 26.7-34.0 [facility] Comment on above: Performed By: #### C BC #### [facility] [address] [place] [address] Dr. Jerald Poon MCHC (RBC) [Mass/Vol] 33.0 g/dL Normal 29.9-35.2 [facility] Comment on above: Performed By: #### C BC #### [facility] [address] [place] [address] Dr. Jerald Poon MCV (RBC) [Entitic vol] 82.7 fL Normal 81.0-99.0 [facility] Comment on above: Performed By: #### C BC #### [facility] [address] [place] [address] Dr. Jerald Poon MONO # 0.8 103/ul Normal 0.3-0.8 [facility] Comment on above: Performed By: #### C BC #### [facility] [address] [place] [address] Dr. Jerald Poon Monocytes/100 WBC (Bld) 10.6 % Normal 1.7-12.0 [facility] Comment on above: Performed By: #### C BC #### [facility] [address] [place] [address] Dr. Jerald Poon NEUT # 4.2 103/ul Normal 1.4-6.5 [facility] Comment on above: Performed By: #### C BC #### [facility] [address] [place] [address] Dr. Jerald Poon Neutrophils/100 WBC (Bld) 56.3 % Normal 43.0-75.0 [facility] Comment on above: Performed By: #### C BC #### [facility] [address] [place] [address] Dr. Jerald Poon Platelet mean volume (Bld) [Entitic vol] 10.2 fL Normal 9.5-13.5 [facility] Comment on above: Performed By: #### C BC #### [facility] [address] [place] [address] Dr. Jerald Poon PLT 375 103/ul Normal 150-450 [facility] Comment on above: Performed By: #### C BC #### [facility] [address] [place] [address] Dr. Jerald Poon RBC 4.44 106/ul Normal 4.20-5.40 [facility] Comment on above: Performed By: #### C BC #### [facility] [address] [place] [address] Dr. Jerald Poon WBC 7.5 103/ul Normal 4.0-11.0 [facility] Comment on above: Performed By: #### C BC #### [facility] [address] [place] [address] Dr. Jerald Poon ER URINE PROFILEon 2 Bilirubin Ql (U) Negative Normal NEGATIVE [facility] Comment on above: Performed By: #### C BC #### [facility] [address] [place] [address] Dr. Jerald Poon Clarity (U) CLEAR Normal CLEAR [facility] Comment on above: Performed By: #### C BC #### [facility] [address] [place] [address] Dr. Jerald Poon Color (U) YELLOW Normal YELLOW [facility] Comment on above: Performed By: #### C BC #### [facility] [address] [place] [address] Dr. Jerald CEBALLOS A micrscopic examination will be performed if indicated. Normal [facility] Comment on above: Performed By: #### C BC #### [facility] [address] [place] [address] Dr. Jerald Poon Glucose Ql (U) Negative Normal NEGATIVE [facility] Comment on above: Performed By: #### C BC #### [facility] [address] [place] [address] Dr. Jerald Poon Hemoglobin Ql (U) Negative Normal NEGATIVE [facility] Comment on above: Performed By: #### C BC #### [facility] [address] [place] [address] Dr. Jerald Poon Ketones Ql (U) Negative Normal NEGATIVE [facility] Comment on above: Performed By: #### C BC #### [facility] [address] [place] [address] Dr. Jerald Poon LEUKOCYTES Negative Normal NEGATIVE [facility] Comment on above: Performed By: #### C BC #### [facility] [address] [place] [address] Dr. Jerald Poon Nitrite Ql (U) Negative Normal NEGATIVE [facility] Comment on above: Performed By: #### C BC #### [facility] [address] [place] [address] Dr. Jerald Poon pH (U) 7.0 [pH] Normal 5-9 [facility] Comment on above: Performed By: #### C BC #### [facility] Laboratory [address] [place] [address] Dr. Jerald Poon SPEC GRAVITY 1.025 Normal 1.005-<=1.025 [facility] Comment on above: Performed By: #### C BC #### [facility] [address] [place] [address] Dr. Jerald Poon UA PROTEIN Negative Normal NEGATIVE/ TRACE [facility] Comment on above: Performed By: #### C BC #### [facility] [address] [place] [address] Dr. Jerald Poon UR MICRO IND NOT INDICATED Normal [facility] Comment on above: Performed By: #### C BC #### [facility] [address] [place] [address] Dr. Jerald Poon Urobilinogen Qn (U) 1.0 {Lyly'U}/dL Normal 0.2 - 1. 0 [facility] Comment on above: Performed By: #### C BC #### [facility] [address] [place] [address] Dr. Jerald Poon PREG QUANT HCGon 04-01-2022 HCG QUANT 1 mIU/mL Normal [facility] Comment on above: Performed By: #### P REGQNT #### [facility] [address] [place] [address] Dr. Jerald Poon HCG RANGE SEE BELOW Normal [facility] Comment on above: Result Comment: 5-50 0.2-1 WEEK 50-500 1-2 WEEKS 100-5,000 2-3 WEEKS 500-10,000 3-4 WEEKS 1,000-50,000 4-5 WEEKS 10,000-100,000 5-6 WEEKS 15,000-200,000 6-8 WEEKS 10,000-100,000 2-3 MONTHS Performed By: #### P REGQNT #### [facility] [address] [place] [address] Dr. Jerald Poon PROF 14(COMP METB)on 022 Albumin [Mass/Vol] 3.6 g/dL Normal 3.4-5.0 [facility] Comment on above: Performed By: #### C MP #### [facility] [address] [place] [address] Dr. Jerald Poon Albumin/Globulin [Mass ratio] 0.8 {ratio} Normal [facility] Comment on above: Performed By: #### C MP #### [facility] [address] [place] [address] Dr. Jerald Poon ALP [Catalytic activity/Vol] 65 U/L Normal 46-116 [facility] Comment on above: Performed By: #### C MP #### [facility] [address] [address] [address] Jerald Poon ALT [Catalytic activity/Vol] 22 U/L Normal 14-59 [facility] Comment on above: Performed By: #### C MP #### [facility] [address] [address] [address] Jerald Poon Anion gap [Moles/Vol] 10.3 mmol/L Normal [facility] Comment on above: Performed By: #### C MP #### [facility] [address] [address] [address] Jerald Poon AST [Catalytic activity/Vol] 14 U/L Critically low 15-37 [facility] Comment on above: Performed By: #### C MP #### [facility] [address] [address] [address] Jerald Poon Bilirubin [Mass/Vol] 0.1 mg/dL Critically low 0.2-1.0 [facility] Comment on above: Performed By: #### C MP #### [facility] [address] [address] [address] Jerald Poon Calcium [Mass/Vol] 8.6 mg/dL Normal 8.5-10.1 [facility] Comment on above: Performed By: #### C MP #### [facility] [address] [address] [address] Jerald Poon Chloride [Moles/Vol] 104 mmol/L Normal 98-107 [facility] Comment on above: Performed By: #### C MP #### [facility] [address] [address] [address] Jerald Poon CO2 [Moles/Vol] 28.1 mmol/L Normal 21.0-32.0 [facility] Comment on above: Performed By: #### C MP #### [facility] [address] [address] [address] Jerald Poon Creatinine [Mass/Vol] 0.99 mg/dL Normal 0.55-1.02 [facility] Comment on above: Performed By: #### C MP #### [facility] [address] [address] [address] Jerald Poon EGFR-AF GREEK >60 Normal >=60 [facility] Comment on above: Performed By: #### C MP #### [facility] [address] [address] [address] Jerald Poon EGFR-NON AF GREEK >60 Normal >=60 [facility] Comment on above: Performed By: #### C MP #### [facility] [address] [address] [address] Jerald Poon Globulin (S) [Mass/Vol] 4.5 g/dL Normal [facility] Comment on above: Performed By: #### C MP #### [facility] [address] [address] [address] Jerald Poon Glucose [Mass/Vol] 94 mg/dL Normal 74-106 [facility] Comment on above: Performed By: #### C MP #### [facility] [address] [address] [address] Jerald Poon Potassium [Moles/Vol] 3.4 mmol/L Critically low 3.5-5.1 [facility] Comment on above: Performed By: #### C MP #### [facility] [address] [address] [address] Jerald Poon Protein [Mass/Vol] 8.1 g/dL Normal 6.4-8.2 [facility] Comment on above: Performed By: #### C MP #### [facility] [address] [address] [address] Jerald Poon Sodium [Moles/Vol] 139 mmol/L Normal 136-145 [facility] Comment on above: Performed By: #### C MP #### [facility] [address] [address] [address] Jerald Poon Urea nitrogen [Mass/Vol] 8.0 mg/dL Normal 7.0-18.0 [facility] Comment on above: Performed By: #### C MP #### [facility] [address] [address] [address] Jerald Poon Urea nitrogen/Creatinine [Mass ratio] 8.1 mg/mg Normal [facility] Comment on above: Performed By: #### C #### [facility] [address] [address] [address] Jerald Poon US PELVIS TRANSVAGon 022 [...] LUH MANRIQUE Date: 2022-04-01 21:55 Normal [facility] Automated erythrocytes count in urine sediment (number/area)Ordered By: Anders Sesay on 10-19-2021 RBC Auto (Urine sed) [#/Area] 1-2 [HPF] [facility] Automated leukocytes count i n urine sediment (number/area)Ordered By: Anders Sesay on 10-19-2021 WBC Auto (Urine sed) [#/Area] 3-4 [HPF] [facility] Basophils Auto (Bld) [#/Vol] Ordered By: Anders Sesay on 10-19-2021 Basophils (Bld) [#/Vol] 0.1 10*3/uL 0.0-0.2 [facility] Basophils/100 WBC Auto (Bld) Ordered By: Anders Sesay on 10-19-2021 Basophils/100 WBC (Bld) 0.6 % [facility] Bilirubin Test strip Ql (U)O rdered By: Anders Sesay on 10-19-2021 Bilirubin Ql (U) Negative Negative [facility] Blood hemoglobin measurement (mass/volume)Ordered By: Anders Sesay on 10-19-2021 Hemoglobin (Bld) [Mass/Vol] 13.2 g/dL 11.8-15.4 [facility] Blood leukocytes automated c ount (number/volume)Ordered By: Anders Sesay on 10-19-2021 WBC (Bld) [#/Vol] 9.1 10*3/uL 4.5-11.0 [facility] Body fluid albumin measureme nt (mass/volume)Ordered By: Anders Sesay on 10-19-2021 Albumin (Body fld) [Mass/Vol] 3.8 g/dL 3.2-5.5 [facility] Color Auto (U)Ordered By: Jason Sesay on 10-19-2021 Color (U) Yellow Yellow [facility] Creatinine and Glomerular fi ltration rate.predicted panel (S/P/Bld)Ordered By: Anders Sesay on 10-19-2021 Creatinine [Mass/Vol] 0.87 mg/dL 0.44-1.03 [facility] Eosinophils Auto (Bld) [#/Vo l]Ordered By: Anders Sesay on 10-19-2021 Eosinophils (Bld) [#/Vol] 0.1 10*3/uL 0.0-0.45 [facility] Eosinophils/100 WBC Auto (Bl d)Ordered By: Anders Sesay on 10-19-2021 Eosinophils/100 WBC (Bld) 0.9 % [facility] Erythrocyte distribution wid th Auto (RBC) [Ratio]Ordered By: Anders Sesay on 10-19-2021 Erythrocyte distribution width (RBC) [Ratio] 16.4 % 11.9-15.3 [facility] Estimated glomerular filtrat ion rate (GFR) non- AmericanOrdered By: Anders Sesay on 10-19-2021 GFR/1.73 sq M.predicted among non-blacks MDRD (S/P/Bld) [Vol rate/Area] > 60 mL/Min [facility] Globulin Calc (S) [Mass/Vol] Ordered By: Anders Sesay on 10-19-2021 Globulin (S) [Mass/Vol] 4.3 g/dL [facility] HCG ( test) IA.rapi d Ql (U)Ordered By: Anders Sesay on 10-19-2021 HCG ( test) Ql (U) Negative [facility] Hematocrit Auto (Bld) [Volum e fraction]Ordered By: Anders Sesay on 10-19-2021 Hematocrit (Bld) [Volume fraction] 40.2 % 34.0-46.4 [facility] Ketones Auto test strip (U) [Mass/Vol]Ordered By: Anders Sesay on 10-19-2021 Ketones (U) [Mass/Vol] Negative Negative [facility] - Hematology and Cell countsOrdered By: Anders Sesay on 10-19-2021 Nucleated RBC/100 WBC (Bld) [Ratio] 0.2 % 0-0.5 [facility] - UrinalysisOrder ed By: Anders Sesay on 10-19-2021 Hyaline casts LM Ql (Urine sed) 0-8 [LPF] [facility] Lymphocytes Auto (Bld) [#/Vo l]Ordered By: Anders Sesay on 10-19-2021 Lymphocytes (Bld) [#/Vol] 2.4 10*3/uL 1.00-4.8 [facility] Lymphocytes/100 WBC Auto (Bl d)Ordered By: Anders Sesay on 10-19-2021 Lymphocytes/100 WBC (Bld) 26.7 % [facility] MCH Auto (RBC) [Entitic mass ]Ordered By: Anders Sesay on 10-19-2021 MCH (RBC) [Entitic mass] 26.3 pg 24.7-34.3 [facility] MCHC Auto (RBC) [Mass/Vol]Or dered By: Anders Sesay on 10-19-2021 MCHC (RBC) [Mass/Vol] 32.9 g/dL 32.0-35.0 [facility] MCV Auto (RBC) [Entitic vol] Ordered By: Anders Sesay on 10-19-2021 MCV (RBC) [Entitic vol] 80.1 fL 80-100 [facility] Monocytes Auto (Bld) [#/Vol] Ordered By: Anders Sesay on 10-19-2021 Monocytes (Bld) [#/Vol] 0.7 10*3/uL 0.0-0.8 [facility] Monocytes/100 WBC Auto (Bld) Ordered By: Anders Sesay on 10-19-2021 Monocytes/100 WBC (Bld) 7.6 % [facility] Neutrophils Auto (Bld) [#/Vo l]Ordered By: Anders Sesay on 10-19-2021 Neutrophils (Bld) [#/Vol] 5.8 10*3/uL 1.8-7.7 [facility] Neutrophils/100 WBC Auto (Bl d)Ordered By: Anders Sesay on 10-19-2021 Neutrophils/100 WBC (Bld) 64.2 % [facility] Nitrite Test strip Ql (U)Ord ered By: Anders Sesay on 10-19-2021 Nitrite Ql (U) Negative Negative [facility] No Panel InformationOrdered By: Anders Sesay on 10-19-2021 Estimated GFR () > 60 mL/Min [facility] Comment on above: GFR estimated refere nce range: According to KDOQI guidelines, <60 ml/min/1.73m2 is sufficient to diagnose a patient with chronic kidney disease. Pharmacy Creatinine Clearance (Chem 147.41 [facility] Platelet mean volume Auto (B ld) [Entitic vol]Ordered By: Anders Sesay on 10-19-2021 Platelet mean volume (Bld) [Entitic vol] 8.6 fL 6.3-10.7 [facility] Platelets Auto (Bld) [#/Vol] Ordered By: Anders Sesay on 10-19-2021 Platelets (Bld) [#/Vol] 395 10*3/uL 150-450 [facility] Protein Auto test strip (U) [Mass/Vol]Ordered By: Anders Sesay on 10-19-2021 Protein (U) [Mass/Vol] Negative Negative [facility] Protein [Mass/volume] in Ser um or PlasmaOrdered By: Anders Sesay on 10-19-2021 Protein [Mass/Vol] 8.1 g/dL 6.1-7.9 [facility] RBC Auto (Bld) [#/Vol]Ordere d By: Anders Sesay on 10-19-2021 RBC (Bld) [#/Vol] 5.02 10*6/uL 3.60-5.00 [facility] Serum or plasma alanine ayoub otransferase measurement without P-5'-P (enzymatic activiOrdered By: Anders Sesay on 10-19-2021 ALT No additional P-5'-P [Catalytic activity/Vol] 20 U/L 10-60 [facility] Serum or plasma albumin/glob ulin mass ratioOrdered By: Anders Sesay on 10-19-2021 Albumin/Globulin [Mass ratio] 0.9 {ratio} [facility] Serum or plasma alkaline cosmo sphatase measurement (enzymatic activity/volume)Ordered By: Anders Sesay on 10-19-2021 ALP [Catalytic activity/Vol] 55 U/L 32-92 [facility] Serum or plasma aspartate am inotransferase measurement (enzymatic activity/volume)Ordered By: Anders Sesay on 10-19-2021 AST [Catalytic activity/Vol] 17 U/L 10-42 [facility] Serum or plasma calcium joann urement (mass/volume)Ordered By: Anders Sesay on 10-19-2021 Calcium [Mass/Vol] 9.1 mg/dL 8.2-10.2 [facility] Serum or plasma chloride adan surement (moles/volume)Ordered By: Anders Sesay on 10-19-2021 Chloride [Moles/Vol] 103 mmol/L 95-114 [facility] Serum or plasma glucose joann urement (mass/volume)Ordered By: Anders Sesay on 10-19-2021 Glucose [Mass/Vol] 105 mg/dL 70-100 [facility] Comment on above: ADA recommended refe rence range Random Glucose Reference Range is dependent on time and content of last meal. Glucose of more than 200 mg/dL in a nonstressed, ambulatory subject supports the diagnosis of Diabetes Mellitus. Serum or plasma potassium me asurement (moles/volume)Ordered By: Anders Sesay on 10-19-2021 Potassium [Moles/Vol] 3.7 mmol/L 3.5-5.1 [facility] Serum or plasma sodium measu rement (moles/volume)Ordered By: Anders Sesay on 10-19-2021 Sodium [Moles/Vol] 137 mmol/L 136-146 [facility] Serum or plasma total biliru bin measurement (mass/volume)Ordered By: Anders Sesay on 10-19-2021 Bilirubin [Mass/Vol] 0.3 mg/dL 0.3-1.2 [facility] Serum or plasma total carbon dioxide measurement (moles/volume)Ordered By: Anders Sesay on 10-19-2021 CO2 [Moles/Vol] 24.2 mmol/L 22.0-30.0 [facility] Serum or plasma urea nitroge n measurement (mass/volume)Ordered By: Anders Sesay on 10-19-2021 Urea nitrogen [Mass/Vol] 7 mg/dL 9-23 [facility] Specific gravity Auto test s trip (U) [Rel density]Ordered By: Anders Sesay on 10-19-2021 Specific gravity (U) [Rel density] 1.014 1.001-1.030 [facility] Squamous epithelial cells de tection in urine sediment by light microscopyOrdered By: Anders Sesay on 10-19-2021 Epithelial cells.squamous LM Ql (Urine sed) 3-4 [HPF] [facility] Urine bacteria detection by automated methodOrdered By: Anders Sesay on 10-19-2021 Bacteria Auto Ql (U) 1+ None Seen [facility] Urine clarity by refractomet ry automatedOrdered By: Anders Sesay on 10-19-2021 Clarity Refractometry automated (U) Clear Clear [facility] Urine glucose measurement by automated test strip (mass/volume)Ordered By: Anders Sesay on 10-19-2021 Glucose Auto test strip (U) [Mass/Vol] Normal mg/dL Normal [facility] Urine hemoglobin detection b y automated test stripOrdered By: Anders Sesay on 10-19-2021 Hemoglobin Auto test strip Ql (U) Negative Negative [facility] Urine leukocyte esterase det ection by automated test stripOrdered By: Anders Sesay on 10-19-2021 Leukocyte esterase Auto test strip Ql (U) 1+ Negative [facility] Urobilinogen Auto test strip (U) [Mass/Vol]Ordered By: Anders Sesay on 10-19-2021 Urobilinogen (U) [Mass/Vol] Normal mg/dL Normal [facility] pH Auto test strip (U)Ordere d By: Anders Sesay on 10-19-2021 pH (U) 5.5 [pH] 5.0-9.0 [facility] US DUP ABD PEL RETRO SCROT [...] MD 07/14/20 Edited Result - FINAL Normal [facility] US NON OB TRANSVAGINALon US NON [...] MD 07/14/20 Edited Result - FINAL Normal [facility] Chlamydia/GC,DNA Ampon 07-10 Chlamydia Probe Negative Normal NEG [facility] Comment on above: Result Comment: CHLA [...] Performed By: #### U HCG, UAMIC #### [facility] [address] [place], [place] [id number] Code Enforcement Officer: Campos Avilez MD Gonorrhea Probe Negative Normal NEG [facility] Comment on above: Result Comment: NEIS [...] Performed By: #### U HCG, UAMIC #### [facility] [address] [place] [id number] Code Enforcement Officer: Campos Avilez MD Cult,Urineon 07-09-2020 Cult,Urine Specimen Description .CLEAN CATCH URINE Special Requests NOT REPORTED Culture ESCHERICHIA COLI >[id number] CFU/ML Report Status FINAL 07/09/2020 SUSCEPTIBILITY Organism [...] <=20 SUSCEPTIBLE Piperacillin/Tazobac her <=4 SUSCEPTIBLE Normal [facility] Comment on above: Performed By: #### U HCG, UAMIC #### [address] [address] Code Enforcement Officer: Campos Avilez MD ABO/Rh(D)on 07-08-2020 ABO/Rh(D) Positive Normal [facility] Comment on above: Performed By: #### A [facility] #### [place] [address] Code Enforcement Officer: Campos Avilez MD CBC with Diffon 07-08-2020 Abs. Basophil 0.04 k/uL Normal 0.00-0.20 [facility] Comment on above: Performed By: #### C P, CDP, COSMO, BHCG, MG, VD25, LIP #### [facility] [address] [place] [id number] Code Enforcement Officer: Campos Avilez MD Abs.Imm.Granulocyte 0.04 k/uL Normal 0.00-0.30 [facility] Comment on above: Performed By: #### C P, CDP, COSMO, BHCG, MG, VD25, LIP #### [facility] [address] [place] [id number] Code Enforcement Officer: Campos Avilez MD Abs.Neutrophil (Seg) 8.16 k/uL High 1.80-8.[address] [facility] Comment on above: Performed By: #### C P, CDP, COSMO, BHCG, MG, VD25, LIP #### [facility] [address] [place] [address] Code Enforcement Officer: Campos Avilez MD Basophils/100 WBC (Bld) 0 % Normal 0-2 [facility] Comment on above: Performed By: #### C P, CDP, COSMO, BHCG, MG, VD25, LIP #### [address] [address] Code Enforcement Officer: Campos Avilez MD Eosinophils (Bld) [#/Vol] 0.10 10*3/uL Normal 0.00-0.44 [facility] Comment on above: Performed By: #### C P, CDP, COSMO, BHCG, MG, VD25, LIP #### [address] [address] Code Enforcement Officer: Campos Avilez MD Eosinophils/100 WBC (Bld) 1 % Normal 1-4 [facility] Comment on above: Performed By: #### C P, CDP, COSMO, BHCG, MG, VD25, LIP #### [place] [address] Code Enforcement Officer: Campos Avilez MD Erythrocyte distribution width (RBC) [Ratio] 14.0 % Normal 11.8-14.4 [facility] Comment on above: Performed By: #### C P, CDP, COSMO, BHCG, MG, VD25, LIP #### [facility] [address] [place] [address] Code Enforcement Officer: Campos Avilez MD Hematocrit (Bld) [Volume fraction] 34.3 % Low 36.3-47.1 [facility] Comment on above: Performed By: #### C P, CDP, COSMO, BHCG, MG, VD25, LIP #### [address] [address] Code Enforcement Officer: Campos Avilez MD Hemoglobin (Bld) [Mass/Vol] 11.1 g/dL Low 11.9-15.1 [facility] Comment on above: Performed By: #### C P, CDP, COSMO, BHCG, MG, VD25, LIP #### [facility] [address] [place] [address] Code Enforcement Officer: Campos Avilez MD Immature granulocytes (Bld) [#/Vol] 0 % Normal 0 [facility] Comment on above: Performed By: #### C P, CDP, COSMO, BHCG, MG, VD25, LIP #### [facility] [address] [place] [address] Code Enforcement Officer: Campos Avilez MD Lymphocytes (Bld) [#/Vol] 1.77 10*3/uL Normal 1.20-5.20 [facility] Comment on above: Performed By: #### C P, CDP, COSMO, BHCG, MG, VD25, LIP #### [facility] [address] [place] [address] Code Enforcement Officer: Campos Avilez MD Lymphocytes/100 WBC (Bld) 16 % Low 25-45 [facility] Comment on above: Performed By: #### C P, CDP, COSMO, BHCG, MG, VD25, LIP #### [facility] [address] [place] [address] Code Enforcement Officer: Campos Avilez MD MCH (RBC) [Entitic mass] 26.6 pg Normal 25.0-35.0 [facility] Comment on above: Performed By: #### C P, CDP, COSMO, BHCG, MG, VD25, LIP #### [facility] [address] [place] [address] Code Enforcement Officer: Campos Avilez MD MCHC (RBC) [Mass/Vol] 32.4 g/dL Normal 28.4-34.8 [facility] Comment on above: Performed By: #### C P, CDP, COSMO, BHCG, MG, VD25, LIP #### [address] [address] Code Enforcement Officer: Campos Avilez MD MCV (RBC) [Entitic vol] 82.3 fL Normal 78.0-102.0 [facility] Comment on above: Performed By: #### C P, CDP, COSMO, BHCG, MG, VD25, LIP #### [address] [address] Code Enforcement Officer: Campos Avilez MD Monocytes (Bld) [#/Vol] 0.73 10*3/uL Normal 0.10-1.40 [facility] Comment on above: Performed By: #### C P, CDP, COSMO, BHCG, MG, VD25, LIP #### [address] [address] Code Enforcement Officer: Campos Avilez MD Monocytes/100 WBC (Bld) 7 % Normal 2-8 [facility] Comment on above: Performed By: #### C P, CDP, COSMO, BHCG, MG, VD25, LIP #### [address] [address] Code Enforcement Officer: Campos Avilez MD Neutrophil (Seg) 75 % High 34-[address] [facility] Comment on above: Performed By: #### C P, CDP, COSMO, BHCG, MG, VD25, LIP #### [address] [address] Code Enforcement Officer: Campos Avilez MD NRBC Automated 0.0 per 100 WBC Normal 0.0 [facility] Comment on above: Performed By: #### C P, CDP, COSMO, BHCG, MG, VD25, LIP #### [address] [address] Code Enforcement Officer: Campos Avilez MD Platelet mean volume (Bld) [Entitic vol] 11.8 fL Normal 8.1-13.5 [facility] Comment on above: Performed By: #### C P, CDP, COSMO, BHCG, MG, VD25, LIP #### [address] [address] Code Enforcement Officer: Campos Avilez MD Platelets (d) [#/Vol] 288 10*3/uL Normal 138-453 [facility] Comment on above: Performed By: #### C P, CDP, COSMO, BHCG, MG, VD25, LIP #### [address] [address] Code Enforcement Officer: Campos Avilez MD RBC (Bld) [#/Vol] 4.17 10*6/uL Normal 3.95-5.11 [facility] Comment on above: Performed By: #### C P, CDP, COSMO, BHCG, MG, VD25, LIP #### [address] [address] Code Enforcement Officer: Campos Avilez MD WBC (Bld) [#/Vol] 10.8 10*3/uL Normal 4.5-13.5 [facility] Comment on above: Performed By: #### C P, CDP, COSMO, BHCG, MG, VD25, LIP #### [address] [address] Code Enforcement Officer: Campos Avilez MD Auto Diff Performed NOT REPORTED Normal [facility] Comment on above: Performed By: #### C P, CDP, COSMO, BHCG, MG, VD25, LIP #### [address] [address] Code Enforcement Officer: Campos Avilez MD Platelets (Bld) [#/Vol] NOT REPORTED Normal [facility] Comment on above: Performed By: #### C P, CDP, COSMO, BHCG, MG, VD25, LIP #### [address] [address] Code Enforcement Officer: Campos Avilez MD RBC morphology finding Nom (Bld) NOT REPORTED Normal [facility] Comment on above: Performed By: #### C P, CDP, COSMO, BHCG, MG, VD25, LIP #### [address] [address] Code Enforcement Officer: Campos Avilez MD WBC Morphology NOT REPORTED Normal [facility] Comment on above: Performed By: #### C P, CDP, COSMO, BHCG, MG, VD25, LIP #### [address] [address] Code Enforcement Officer: Campos Avilez MD Calcium, Ionicon 07-08-2020 Calcium [Mass/Vol] 1.18 mmol/L Normal 1.13-1.33 [facility] Comment on above: Performed By: #### I OCAL #### [address] [address] Code Enforcement Officer: Campos Avilez MD Calcium, Ionizedon Calcium [Mass/Vol] 1.18 mmol/L 1.13 - 1. 33 mmol/L [place], [place] Comp Metabolic Profon 2020 (cont.) Normal [facility] Comment on above: Result Comment: Aver age GFR for <20 years old not available. Chronic Kidney Disease: <60 mL/min/1.73sq m Kidney failure: <15 mL/min/1.73sq m eGFR calculated using average adult body mass. Additional eGFR calculator available at: http://www.[employer].com/multiple_crcl_2012.htm Performed By: #### C P, CDP, COSMO, BHCG, MG, VD25, LIP #### [address] [address] Code Enforcement Officer: Campos Avilez MD Albumin [Mass/Vol] 2.3 g/dL Low 3.5-5.2 [facility] Comment on above: Performed By: #### C P, CDP, COSOM, BHCG, MG, VD25, LIP #### [address] [address] Code Enforcement Officer: Campos Avilez MD Albumin/Globulin [Mass ratio] 0.9 {ratio} Low 1.0-2.5 [facility] Comment on above: Performed By: #### C P, CDP, COSMO, BHCG, MG, VD25, LIP #### [address] [address] Code Enforcement Officer: Campos Avilez MD Alkaline Phos 41 U/L Normal 35-104 [facility] Comment on above: Result Comment: SPEC IMEN MODERATELY HEMOLYZED, RESULTS MAY BE ADVERSELY AFFECTED Performed By: #### C P, CDP, COSMO, BHCG, MG, VD25, LIP #### [address] [address] Code Enforcement Officer: Campos Avilez MD ALT [Catalytic activity/Vol] 11 U/L Normal 5-33 [facility] Comment on above: Result Comment: SPEC IMEN MODERATELY HEMOLYZED, RESULTS MAY BE ADVERSELY AFFECTED Performed By: #### C P, CDP, COSMO, BHCG, MG, VD25, LIP #### [address] [address] Code Enforcement Officer: Campos Avilez MD Anion gap [Moles/Vol] 9 mmol/L Normal 9-17 [facility] Comment on above: Performed By: #### C P, CDP, COSMO, BHCG, MG, VD25, LIP #### [address] [address] Code Enforcement Officer: Campos Avilez MD AST [Catalytic activity/Vol] 28 U/L Normal <32 [facility] Comment on above: Result Comment: SPEC IMEN MODERATELY HEMOLYZED, RESULTS MAY BE ADVERSELY AFFECTED Performed By: #### C P, CDP, COSMO, BHCG, MG, VD25, LIP #### [address] [address] Code Enforcement Officer: Campos Avilez MD Bilirubin Ql (U) <0.10 Low 0.3-1.[address] [facility] Comment on above: Performed By: #### C P, CDP, COSMO, BHCG, MG, VD25, LIP #### [address] [address] Code Enforcement Officer: Campos Avilez MD Calcium [Mass/Vol] 5.5 mg/dL Critically low 8.6-10.4 [facility] Comment on above: Performed By: #### C P, CDP, COSMO, BHCG, MG, VD25, LIP #### [address] [address] Code Enforcement Officer: Campos Avilez MD Chloride [Moles/Vol] 118 mmol/L High 98-[address] [facility] Comment on above: Performed By: #### C P, CDP, COSMO, BHCG, MG, VD25, LIP #### [facility] [address] [place] [id number] Code Enforcement Officer: Campos Avilez MD CO2 [Moles/Vol] 14 mmol/L Low 20-31 [facility] Comment on above: Performed By: #### C P, CDP, COSMO, BHCG, MG, VD25, LIP #### [facility] [address] [place] [address] Code Enforcement Officer: Campos Avilez MD Creatinine [Mass/Vol] 0.60 mg/dL Normal 0.50-0.90 [facility] Comment on above: Performed By: #### C P, CDP, COSMO, BHCG, MG, VD25, LIP #### [facility] [address] [place] [phone] Code Enforcement Officer: Campos Avilez MD GFR,non Amer Pediatric GFR requires additional information. Refer to NKDEP website for Normal >60 [facility] Comment on above: Result Comment: calc ulator. Performed By: #### C P, CDP, COSMO, BHCG, MG, VD25, LIP #### [address] [address] Code Enforcement Officer: Campos Avilez MD Glucose [Mass/Vol] 84 mg/dL Normal 70-99 [facility] Comment on above: Performed By: #### C P, CDP, COSMO, BHCG, MG, VD25, LIP #### [address] [address] Code Enforcement Officer: Campos Avilez MD Potassium [Moles/Vol] 5.1 mmol/L Normal 3.7-5.3 [facility] Comment on above: Result Comment: SPEC IMEN MODERATELY HEMOLYZED, RESULTS MAY BE ADVERSELY AFFECTED Performed By: #### C P, CDP, COSMO, BHCG, MG, VD25, LIP #### [address] [address] Code Enforcement Officer: Campos Avilez MD Protein [Mass/Vol] 5.0 g/dL Low 6.4-8.3 [facility] Comment on above: Performed By: #### C P, CDP, COSMO, BHCG, MG, VD25, LIP #### [facility] [address] [place] [address] Code Enforcement Officer: Campos Avilez MD Sodium [Moles/Vol] 141 mmol/L Normal 135-144 [facility] Comment on above: Performed By: #### C P, CDP, COSMO, BHCG, MG, VD25, LIP #### [address] [address] Code Enforcement Officer: Campos Avilez MD Urea nitrogen [Mass/Vol] 10 mg/dL Normal 6-20 [facility] Comment on above: Performed By: #### C P, CDP, COSMO, BHCG, MG, VD25, LIP #### [facility] [address] [place] [address] Code Enforcement Officer: Campos Avilez MD BUN/CRE Ratio NOT REPORTED Normal -20 [facility] Comment on above: Performed By: #### C P, CDP, COSMO, BHCG, MG, VD25, LIP #### [facility] [address] [place] [address] Code Enforcement Officer: Campos Avilez MD GFR, Amer NOT REPORTED Normal >60 [facility] Comment on above: Performed By: #### C P, CDP, COSMO, BHCG, MG, VD25, LIP #### [facility] [address] [place] [address] Code Enforcement Officer: Campos Avilez MD Staging: NOT REPORTED Normal [facility] Comment on above: Performed By: #### C P, CDP, COSMO, BHCG, MG, VD25, LIP #### [facility] [address] [place] [address] Code Enforcement Officer: Campos Avilez MD HCG, ,Urineon 07-08 Beta HCG ( test) Ql (U) Negative Normal NEG [facility] Comment on above: Result Comment: Spec [...] Performed By: #### U HCG, UAMIC #### [address] [address] Code Enforcement Officer: Campos Avilez MD HCG, Quanton 07-08-2020 HCG, Quant <1 Normal <5 [facility] Comment on above: Result Comment: Non-preg [...] CDP, COSMO, BHCG, MG, VD25, LIP #### [facility] [address] [place] [phone] Code Enforcement Officer: Campos Avilez MD Lipaseon 07-08-2020 Lipase [Catalytic activity/Vol] 15 U/L Normal 13-60 [facility] Comment on above: Performed By: #### C P, CDP, COSMO, BHCG, MG, VD25, LIP #### [facility] [address] [place] [address] [phone] Code Enforcement Officer: Campos Avilez MD Magnesiumon 07-08-2020 Magnesium [Mass/Vol] 1.2 mg/dL Low 1.7-2.[address] [facility] Comment on above: Performed By: #### C P, CDP, COSMO, BHCG, MG, VD25, LIP #### [facility] [address] [place] [address] Code Enforcement Officer: Campos Avilez MD Interpretation and review of laboratory results Abnormal [place] Magnesium [Mass/Vol] 1.2 mg/dL Low 1.7 - 2 .2 mg/dL [place] Otheron 07-08-2020 Direct Exam Negative [place] , URINEon Beta HCG ( test) Ql (U) Negative NEGATIVE [place] Comment on above: Specimens with hCG [...] 2.6 mg/dL 2.5 - 4 .8 mg/dL [place] Phosphorus, Inorg.on 021 Phosphorus, Inorg. 2.6 mg/dL Normal 2.5-4.8 [facility] Comment on above: Performed By: #### U HCG, UAMIC #### [facility] [address] [place] [address] Code Enforcement Officer: Campos Avilez MD NON OB TRANSVAGINALon Elia, Mhpn Incoming Radiant Results From [employer] - 07/08/2020 12:31 AM EST EXAMINATION: PELVIC [...] No evidence of ovarian torsion is noted. [place] Unremarkable pelvic ultrasound. No evidence of ovarian torsion is noted. [place] EXAMINATION: PELVIC ULTRASOUND 07/07/2020 TECHNIQUE: Transvaginal [...] Free Fluid: No evidence of free fluid. [facility] [place] Urinalysis w/ Microon 2020 ----- Normal [facility] Comment on above: Performed By: #### U HCG, UAMIC #### [address] [address] Code Enforcement Officer: Campos Avilez MD Acetoacetic Acid,Ur Negative Normal NEG [facility] Comment on above: Performed By: #### U HCG, UAMIC #### [address] [address] Code Enforcement Officer: Campos Avilez MD Bacteria LM.HPF (Urine sed) [#/Area] MANY Abnormal NONE [facility] Comment on above: Performed By: #### U HCG, UAMIC #### [address] [address] Code Enforcement Officer: Campos Avilez MD Bilirubin, SemiQt,Ur Negative Normal NEG [facility] Comment on above: Performed By: #### U HCG, UAMIC #### [address] [address] Code Enforcement Officer: Campos Avilez MD Color (U) ORANGE Abnormal YEL [facility] Comment on above: Result Comment: INTE RPRET WITH CAUTION DUE TO INTENSE COLOR OF URINE. Performed By: #### U HCG, UAMIC #### [address] [address] Code Enforcement Officer: Campos Avilez MD Epithelial cells LM.HPF (Urine sed) [#/Area] 0 TO 2 Normal 0-5 [facility] Comment on above: Performed By: #### U HCG, UAMIC #### [address] [address] Code Enforcement Officer: Campos Avilez MD Glucose Ql (U) Negative Normal NEG [facility] Comment on above: Performed By: #### U HCG, UAMIC #### [address] [address] Code Enforcement Officer: Campos Avilez MD Hemoglobin, Ur LARGE Abnormal NEG [facility] Comment on above: Performed By: #### U HCG, UAMIC #### [facility] [address] [place] [address] Code Enforcement Officer: Campos Avilez MD Leukocyte esterase Test strip Ql (U) MODERATE Abnormal NEG [facility] Comment on above: Performed By: #### U HCG, UAMIC #### [address] [address] Code Enforcement Officer: Campos Avilez MD Nitrite,Ur Positive Abnormal NEG [facility] Comment on above: Performed By: #### U HCG, UAMIC #### [address] [address] Code Enforcement Officer: Campos Avilez MD pH (U) 5.5 [pH] Normal 5.0-8.0 [facility] Comment on above: Performed By: #### U HCG, UAMIC #### [address] [address] Code Enforcement Officer: Campos Avilez MD Protein Ql (U) 2+ Abnormal NEG [facility] Comment on above: Performed By: #### U HCG, UAMIC #### [address] [address] Code Enforcement Officer: Campos Avilez MD RBC (U) [#/Vol] 50 TO 100 Normal 0-4 [facility] Comment on above: Result Comment: Refe rence range defined for non-centrifuged specimen. Performed By: #### U HCG, UAMIC #### [address] [address] Code Enforcement Officer: Campos Avilez MD Specific gravity (U) [Rel density] 1.021 Normal 1.005-1.030 [facility] Comment on above: Performed By: #### U HCG, UAMIC #### [address] [address] Code Enforcement Officer: Campos Avilez MD Turbidity TURBID Abnormal CLEAR [facility] Comment on above: Performed By: #### U HCG, UAMIC #### [address] [address] Code Enforcement Officer: Campos Avilez MD Urobilinogen,Ur Normal Normal NORM [facility] Comment on above: Performed By: #### U HCG, UAMIC #### [address] [address] Code Enforcement Officer: Campos Avilez MD WBC (U) [#/Vol] TOO NUMEROUS TO COUNT Normal 0-5 [facility] Comment on above: Performed By: #### U HCG, UAMIC #### [address] [address] Code Enforcement Officer: Campos Avilez MD Amorphous sediment LM Ql (Urine sed) NOT REPORTED Normal [facility] Comment on above: Performed By: #### U HCG, UAMIC #### [address] [address] Code Enforcement Officer: Campos Avilez MD Casts LM.LPF (Urine sed) [#/Area] NOT REPORTED Normal 0-8 [facility] Comment on above: Performed By: #### U HCG, UAMIC #### [address] [address] Code Enforcement Officer: Campos Avilez MD Crystals LM Nom (Urine sed) NOT REPORTED Normal [facility] Comment on above: Performed By: #### U HCG, UAMIC #### [address] [address] Code Enforcement Officer: Campos Avilez MD Epithelial, Renal NOT REPORTED Normal 0 [facility] Comment on above: Performed By: #### U HCG, UAMIC #### [facility] [address] [place] [address] Code Enforcement Officer: Campos Avilez MD Mucus Strands NOT REPORTED Normal NONE [facility] Comment on above: Performed By: #### U HCG, UAMIC #### [address] [address] Code Enforcement Officer: Campos Avilez MD Other Observations NOT REPORTED Normal NREQ [facility] Comment on above: Performed By: #### U HCG, UAMIC #### [address] [address] Code Enforcement Officer: Campos Avilez MD Trichomonas NOT REPORTED Normal NONE [facility] Comment on above: Performed By: #### U HCG, UAMIC #### [address] [address] Code Enforcement Officer: Campos Avilez MD Yeast LM Ql (Urine sed) NOT REPORTED Normal [facility] Comment on above: Performed By: #### U HCG, UAMIC #### [address] [address] Code Enforcement Officer: Campos Avilez MD Urinalysis with microscopico n 07-08-2020 Amorphous, UA NOT REPORTED None [facility] [place] Bacteria, UA MANY Abnormal None [facility] [place] Bilirubin Urine Negative NEGATIVE [facility] [place] Casts UA NOT REPORTED [facility] [place] Color, UA ORANGE Abnormal YELLOW [facility] [place] Comment on above: INTERPRET WITH CAUTI ON DUE TO INTENSE COLOR OF URINE. Crystals, UA NOT REPORTED None /HPF [facility] [place] Epithelial Cells UA 0 TO 2 [place] Glucose, Ur Negative NEGATIVE [place] Interpretation and review of laboratory results Abnormal [place] Ketones Ql (U) Negative NEGATIVE [place] Leukocyte esterase Test strip Ql (U) MODERATE Abnormal NEGATIVE [place] Mucus, UA NOT REPORTED None [place] Nitrite, Urine Positive Abnormal NEGATIVE [place] Other Observations UA NOT REPORTED NOT REQ. M [place] pH, UA 5.5 [place] Protein (U) [Mass/Vol] 2+ Abnormal NEGATIVE [place] RBC (U) [#/Vol] 50 TO 100 [place] Comment on above: Reference range defi sonia for non-centrifuged specimen. Renal Epithelial, UA NOT REPORTED 0 /HPF [place] Specific [place], UA 1.021 [place] Trichomonas, UA NOT REPORTED None [place] Turbidity UA TURBID Abnormal CLEAR [place] Urine Hgb LARGE Abnormal NEGATIVE [place] Urobilinogen, Urine Normal Normal [place] WBC, UA TOO NUMEROUS TO COUNT [place] Yeast, UA NOT REPORTED None [place] VAGINITIS DNA PROBEon 2020 Direct Exam Positive Abnormal [place] Direct Exam Method of testing is a DNA probe intended for detection and identification of Samantha species, Gardnerella vaginalis, and Trichomonas vaginalis nucleic acid in vaginal fluid specimens from patients with symptoms of vaginitis/vaginosis. [place] Interpretation and review of laboratory results Abnormal [place] Special Requests NOT REPORTED [place] Specimen Description .VAGINA [place] Vaginitis DNA Probeon 2020 Vaginitis DNA [...] of vaginitis/vaginosis. Report Status FINAL 07/08/2020 Normal [facility] Comment on above: Performed By: #### U HCG, UAMIC #### [facility] [address] [place] [address] Code Enforcement Officer: Campos Avilez MD Vitamin D 25 Hydroxyon 07-08 Interpretation and review of laboratory results Abnormal [place] Vit D, 25-Hydroxy 12.1 ng/mL Low 30 - 100 ng/mL [place] Comment on above: Reference Range: Vitamin D status Range Deficiency <20 ng/mL Mild Deficiency 20-30 ng/mL Sufficiency 30-100 ng/mL Toxicity >100 ng/mL Vitamin D 25 OHon 07-08-2020 Vitamin D 25 [place] 12.1 ng/mL Low 30.0-100.0 [facility] Comment on above: Result Comment: Reference Range: Vitamin D status Range Deficiency <20 ng/mL Mild Deficiency 20-30 ng/mL Sufficiency 30-100 ng/mL Toxicity >100 ng/mL Performed By: #### U HCG, UAMIC #### [facility] [address] [place] [address] Code Enforcement Officer: Campos Avilez MD ABO/RHon 07-07-2020 ABO/Rh Positive [place] CBC WITH AUTO DIFFERENTIALon 07-07-2020 Basophils (Bld) [#/Vol] 0.04 10*3/uL [place] Basophils/100 WBC (Bld) 0 % 0 - 2 % [place] Differential Type NOT REPORTED [place] Eosinophils (Bld) [#/Vol] 0.10 10*3/uL [place] Eosinophils/100 WBC (Bld) 1 % 1 - 4 % [place] Erythrocyte distribution width (RBC) [Ratio] 14.0 % 11.8 - 14.4 % [place] Hematocrit (Bld) [Volume fraction] 34.3 % Low 36.3 - 47.1 % [place] Hemoglobin (Bld) [Mass/Vol] 11.1 g/dL Low 11.9 - 15.1 g/dL [place] Immature granulocytes (Bld) [#/Vol] 0 % 0 [place] Immature granulocytes (Bld) [#/Vol] 0.04 10*3/uL [place] Interpretation and review of laboratory results Abnormal [place] Lymphocytes (Bld) [#/Vol] 1.77 10*3/uL [place] Lymphocytes/100 WBC (Bld) 16 % Low 25 - 45 % [place] MCH (RBC) [Entitic mass] 26.6 pg 25 - 35 pg [place] MCHC (RBC) [Mass/Vol] 32.4 g/dL 28.4 - 34.8 g/dL [place] MCV (RBC) [Entitic vol] 82.3 fL 78 - 102 fL [place] Monocytes (Bld) [#/Vol] 0.73 10*3/uL [place] Monocytes/100 WBC (Bld) 7 % 2 - 8 % [place] Platelet mean volume (Bld) [Entitic vol] 11.8 fL 8.1 - 13.5 fL [place] Platelets (Bld) [#/Vol] NOT REPORTED [place] Platelets (Bld) [#/Vol] 288 10*3/uL [place] RBC (Bld) [#/Vol] 4.17 10*6/uL 3.95 - 5.1 1 m/uL [place] RBC morphology finding Nom (Bld) NOT REPORTED [place] Segmented neutrophils/100 WBC (Bld) 75 % High 34 - 64 % [place] Segs Absolute 8.16 High [place] WBC (Bld) [#/Vol] 0.0 10*3/uL 0.0 per 10 0 WBC [place] WBC (Bld) [#/Vol] 10.8 10*3/uL [place] WBC Morphology NOT REPORTED [place] COMPREHENSIVE METABOLIC PANE Mikie 07-07-2020 Albumin [Mass/Vol] 2.3 g/dL Low 3.5 - 5.2 g/dL [place] Albumin/Globulin [Mass ratio] 0.9 {ratio} Low [place] ALP [Catalytic activity/Vol] 41 U/L 35 - 104 U/L [place] Comment on above: SPECIMEN MODERATELY HEMOLYZED, RESULTS MAY BE ADVERSELY AFFECTED ALT [Catalytic activity/Vol] 11 U/L 5 - 33 U/L [place] Comment on above: SPECIMEN MODERATELY HEMOLYZED, RESULTS MAY BE ADVERSELY AFFECTED Anion gap [Moles/Vol] 9 mmol/L 9 - 17 mmol/L [place] AST [Catalytic activity/Vol] 28 U/L <32 [place] Comment on above: SPECIMEN MODERATELY HEMOLYZED, RESULTS MAY BE ADVERSELY AFFECTED Bilirubin Ql (U) <0.10 Low 0.3 - 1.2 mg/dL [place] Bun/Cre Ratio NOT REPORTED [place] Calcium [Mass/Vol] 5.5 mg/dL Critically low 8.6 - 1 0.4 mg/dL [place] Chloride [Moles/Vol] 118 mmol/L High 98 - 10 7 mmol/L [place] CO2 [Moles/Vol] 14 mmol/L Low 20 - 31 mmol/L [place] Creatinine [Mass/Vol] 0.6 mg/dL 0.5 - 0.9 mg/dL [place] GFR NOT REPORTED >60 mL/min [place] GFR Non- Pediatric GFR requires additional information. Refer to NKDEP website for calculator. >60 mL/min [place] GFR/1.73 sq M predicted among non-blacks MDRD (S/P/Bld) [Vol rate/Area] NOT REPORTED [place] GFR/1.73 sq M predicted among non-blacks MDRD (S/P/Bld) [Vol rate/Area] [place] Comment on above: Average GFR for <20 years old not available. Chronic Kidney Disease: <60 mL/min/1.73sq m Kidney failure: <15 mL/min/1.73sq m eGFR calculated using average adult body mass. Additional eGFR calculator available at: http://www.[employer].com/multiple_crcl_2012.htm Glucose [Mass/Vol] 84 mg/dL 70 - 99 mg/dL [place] Interpretation and review of laboratory results Abnormal [place] Potassium [Moles/Vol] 5.1 mmol/L 3.7 - 5.3 mmol/L [place] Comment on above: SPECIMEN MODERATELY HEMOLYZED, RESULTS MAY BE ADVERSELY AFFECTED Protein [Mass/Vol] 5.0 g/dL Low 6.4 - 8.3 g/dL [place] Sodium [Moles/Vol] 141 mmol/L 135 - 144 mmol/L [place] Urea nitrogen [Mass/Vol] 10 mg/dL 6 - 20 mg/dL [place] HCG, QUANTITATIVE, on 07-07-2020 hCG Quant <1 <5 IU/L [place] Comment on above: Non-preg premeno <=5 [...] activity/Vol] 15 U/L 13 - 60 U/L [place] Vital Signs Date Time Vital Sign Value Performing Clinician Facility 07-17-2023 11:42-0500 Body weight 127.82 kg [employer] Work Phone: [facility] 07-17-2023 11:42-0500 Diastolic blood pressure 70 mm[Hg] [employer] Work Phone: [facility] 07-17-2023 11:42-0500 Systolic blood pressure 118 mm[Hg] [employer] Work Phone: [facility] 10-19-2021 01:12-0400 Diastolic blood pressure 62 mm[Hg] PHYSICIAN NO FAMILY [facility] 10-19-2021 01:12-0400 Heart rate 89 /min PHYSICIAN NO [facility] 10-19-2021 01:12-0400 Respiratory rate 18 /min PHYSICIAN NO [facility] 10-19-2021 01:12-0400 SaO2% (BldA) [Mass fraction] 100 % PHYSICIAN NO [facility] 10-19-2021 01:12-0400 Systolic blood pressure 130 mm[Hg] PHYSICIAN NO [facility] 10-18-2021 23:10-0400 Body height 167.64 cm PHYSICIAN NO [facility] 10-18-2021 23:10-0400 Body mass index (BMI) [Percentile] Per age and sex 99.1 % PHYSICIAN [facility] 10-18-2021 23:10-0400 Body mass index (BMI) [Ratio] 48.2 kg/m2 PHYSICIAN [facility] 10-18-2021 23:10-0400 Body weight 135.5 kg PHYSICIAN NO [facility] 10-18-2021 23:08-0400 Body temperature 98.4 [degF] PHYSICIAN NO [facility] 07-07-2020 21:51-0500 BMI (Body Mass Index) 42.93 kg/m2 [facility] [place] [facility] 21:51-0500 [facility] [place] 07-07-2020 21:51-0500 BP Diastolic 85 mm[Hg] [facility] [place] 07-07-2020 21:51-0500 BP Systolic 136 mm[Hg] [facility] [place] 07-07-2020 21:51-0500 Height 167.6 cm [facility] [place] 07-07-2020 21:51-0500 Pulse (Heart Rate) 93 /min [facility] [place] 07-07-2020 21:51-0500 Pulse Oximetry 97 % [facility] [place] 07-07-2020 21:51-0500 Respiratory Rate 18 /min Lisa Almanza [facility] [place], [place] 07-07-2020 21:48-0500 Body Temperature 97.11 [degF] [facility], [place] Encounters Encounter Date Encounter Type Care Provider Facility Start: 08-14-2023 End: 08-14-2023 ambulatory HALIMA CULLEN Not Available Start: 07-17-2023 End: 07-17-2023 ambulatory CHUNG YOUSIF Not Available Start: 07-17-2023 End: 07-17-2023 flow sheet Chung Clayo DO Work Phone: [facility] Comment [...] Emergency department patient visit PHYSICIAN NO FAMILY Facility:[facility] Start: 10-18-2021 End: 10-19-2021 Emergency department patient visit PHYSICIAN NO [facility] Start: 07-07-2020 End: 07-08-2020 Emergency department patient visit DAVID MILES [facility] Start: 07-07-2020 End: 07-08-2020 Emergency department patient visit Lisa Land Work Phone: [facility] ED Comment on above: [...] Angela acosta Land Work Phone: Start: 07-08-2020 transvaginal Taylor [...] encounter procedure 08/14/2023 11:20 AM EDT Routine [facility] [address] [place] [address] Halima Cullen PA [address] [place] [address] [facility] Start: 07-17-2023 End: 07-17-2024 US for US OB VIABLILITY Imaging Routine with uncertain viability, single or unspecified fetus Expected: 07/17/2023 (Approximate), Expires: 07/17/2024 [facility] Work Phone: Comment on above: Expected: 07/17/2023 (Approximate), Expires: 07/17/2024 Start: 07-17-2023 End: 07-17-2023 Patient encounter procedure [facility] Comment on above: First [...] Expires: 07/03/2024 [facility] Work Phone: Comment on above: Expected: 07/03/2023 (Approximate), Expires: 07/03/2024 Start: 07-03-2023 End: 07-03-2024 US Pelvis transvaginal US OB transvaginal Imaging Routine Missed menses Expected: 07/03/2023 (Approximate), Expires: 07/03/2024 [facility] Comment on above: Expected: 07/03/2023 (Approximate), Expires: 07/03/2024 Start: 02-01-2020 Influenza vaccination Flu vaccine (# 1) [place] Start: 2018 Meningococcal (ACWY) vaccine (1 - 2-dose series) Meningococcal (ACWY) vaccine (1 - 2-dose series) [place] Start: 2018 Screening for Chlamy nancy trachomatis Chlamydia screen [place] Start: 2017 HIV screening HIV screen [place] Start: 2013 HPV vaccine (1 - 2-d ose series) HPV vaccine (1 - 2-dose series) [place] Start: 2009 DTaP/Tdap/Td vaccine (1 - Tdap) DTaP/Tdap/Td vaccine (1 - Tdap) [place] Start: 2003 Hepatitis A vaccine (1 of 2 - 2-dose series) Hepatitis A vaccine (1 of 2 - 2-dose series) [place] Start: 2003 Measles,Mumps,Rubell a (MMR) vaccine (1 of 2 - Standard series) Measles,Mumps,Rubella (MMR) vaccine (1 of 2 - Standard series) [place] Start: 2003 Varicella vaccine (1 of 2 - 2-dose childhood series) Varicella vaccine (1 of 2 - 2-dose childhood series) [place] Start: 2002 Hepatitis B vaccine (1 of 3 - 3-dose primary series) Hepatitis B vaccine (1 of 3 - 3-dose primary series) [place] Start: 2002 Hepatitis C screening Hepatitis C sc reen [place] Bacteria identified in Urine by Culture Urine culture Microbiology Routine Missed menses Ordered: 07/03/2023 [facility] Comment on above: Ordered: 07/03/2023 End: 07-07-2020 C.trachomatis N.gonorrhoeae DNA C.trachomatis N.gonorrhoeae DNA Microbiology STAT One Time for 1 Occurrences starting 07/07/2020 until [facility]07[facility] One Time for 1 Occur rences starting 07/07/2020 until 07/07/2020 C.trachomatis N.gonorrhoeae DNA C.trachomatis N.gonorrhoeae DNA Microbiology Stat [employer] Label print 07/07/2020 11:20 PM MAGALI [facility] End: 07-08-2020 Calcium, Ionized Calcium, Ionized Lab STAT One Time for 1 Occurrences starting 07/08/2020 until 07/08/2020 [facility] Comment on above: One Time for 1 Occur rences starting 07/08/2020 until 07/08/2020 CBC W Auto Different ial panel - Blood CBC and differential Lab Routine Missed menses Ordered: 07/03/2023 [facility] Comment on above: Ordered: 07/03/2023 End: 07-07-2020 Culture, Urine Culture, Urine Microbiology STAT One Time for 1 Occurrences starting 07/07/2020 until 07/07/2020 [facility] Comment on above: One Time for 1 Occur rences starting 07/07/2020 until 07/07/2020 Culture, Urine Culture, Urine Microbiology Stat [employer] Label print 07/07/2020 10:56 PM [facility] Hem[facility] A1c measurement Hemoglobin A1c Lab Routine Missed menses Ordered: 07/03/2023 [facility] Comment on above: Ordered: 07/03/2023 Hepatitis B virus surface Ag [Presence] in Serum or Plasma by Immunoassay Hepatitis B surface antigen Lab Routine Missed menses Ordered: 07/03/2023 [facility] Comment on above: Ordered: 07/03/2023 Hepatitis C virus Ab [Presence] in Serum or Plasma by Immunoassay Hepatitis C antibody Lab Routine Missed menses Ordered: 07/03/2023 [facility] Comment on above: Ordered: 07/03/2023 HIV-1/HIV-2 antigen/antibody combination immunoassay HIV-1 and HIV-2 antibodies Lab Routine Missed menses Ordered: 07/03/2023 [facility] Comment on above: Ordered: 07/03/2023 Patient Education Common Breast Problems Pelvic Pain ED [facility] Work Phone: Patient referral [facility] Work Phone: Reagin Ab [Presence] in Serum by RPR RPR Lab Routine Missed menses Ordered: 07/03/2023 [facility] plus Comment on above: Ordered: 07/03/2023 Rubella antibody, IgG Rubella an tibody, IgG Lab Routine Missed menses Ordered: 07/03/2023 [facility] Comment on above: Ordered: 07/03/2023 End: 07-07-2020 US DUP ABD PEL RETRO SCROT LIMITED US DUP ABD PEL RETRO SCROT LIMITED Imaging STAT Once for 1 Occurrences starting 07/07/2020 until 07/07/2020 [place], [place] Comment on above: Once for 1 Occurrenc es starting 07/07/2020 until 07/07/2020 US DUP ABD PEL RETRO SCROT LIMITED US DUP ABD PEL RETRO SCROT LIMITED Imaging STAT 07/08/2020 12:13 AM EST [place], [place] Payers Date Payer Category Payer Unknown BCBS BCBS xxxxxx [id number] 2023-Present [phone] [address] [place] [address] [id number] 2023 Unknown [id number] 2021 Self-pay [id number] 2002 Unknown [id number] 2002 Unknown [id number] 2002 Unknown [id number] 2002 Unknown [id number] 2002 Unknown [id number] 2002 Unknown [id number] 1957 Medicaid [id number] 1957 Unknown [id number] Unknown [id number] Social History Date Type Detail Facility Start: 07-07-2020 End: 07-16-2023 Tobacco smoking status [facility] Never smoker [facility] Start: 07-07-2020 Tobacco use and exposure Never used [facility] Start: 2002 Sex Assigned At Not on file [facility]Flow [facility]SA[facility] Exposure to SARS-CoV-2 (event) Not sure [facility] TechnologiesSAINT [facility] KIRKWOODPixelPlay Start: 10-19-2021 Tobacco smoking status [facility] Smoker (finding) [facility] Start: 2000 Sex Assigned At Female F [facility] Tobacco smoking status [facility] Tobacco smoking consumption unknown [facility] Start: 05-22-2023 [facility] Start: 07-16-2023 Gender identity Not on file [facility] Start: 07-16-2023 End: 07-17-2023 Alcohol intake Lifetime non-drinker (finding) [facility] Start: 07-16-2023 History of Social function [facility] History of Present illness Narrative 07-17-2023 [...] medication list which includes the following prescription(s): [id number] and promethazine. Medical History: Active Ambulatory Problems Diagnosis Date Noted No Active Ambulatory Problems Resolved Ambulatory Problems Diagnosis Date Noted No Resolved Ambulatory Problems Past Medical History: Diagnosis Date ADD (attention deficit disorder) Ast[facility] ([facility]) Family History Problem Relation Name Age of [...] raw or undercooked meat, stay away from [facility], do not change litter boxes, eat [...] Note Facility Evaluation note No assessment information [facility] Work Phone: Evaluation note Note Date [...] or unspecified fetus documented in this encounter [facility] Hospital Discharge instructions Note Date & Type Note Facility Hospital Discharge instructions Additional Instructions Please follow up as we discussed so you can have your concerns further evaluated. [facility] Work Phone: Discharge Instructions * Instructions* Brenda Stoner DO - 07/08/2020 [facility] ED Clinic List Healthcare Providers Services Day of Week/ Hours [facility] [address] [facility] Pediatric Primary Care Adult Primary Care APPRENTICE PLUMBER//Specialty Clinics Friday 8:00a 4:30p [address] Adult Medicine, Pediatrics, APPRENTICE PLUMBER Friday 8:30a 4:30p [facility] [address] [facility] Friday 8:30a 11:00a [facility] [address] [facility] Adult Internal Medicine ([facility]) APPRENTICE PLUMBER Clinic Pediatric Clinic Friday, Friday, , Friday 8:00a 4:30p Friday 1:00p 4:30p Friday, Friday, 8:00a 5:00p; Friday 8:00a 12:30p Friday 1p 4p Friday, Friday, , Friday 8:30a 4:15p Friday 12:30p 4:15p Health Department [facility] Clinic 5 [facility] Pediatric Primary Care Adult Primary Care OB/ Friday, Friday 8a 12p 8a 4:45p [facility] [address] [place] [place], [place] [address] Pre & Post Adoption Counseling Support / nutrition Care Reward Incentive Program [facility] Fri, , Fri, Fri 10:00a 4:30p Thur 10:00a 7:30p E [facility] Location Friday - Friday 10a 4:30p [facility] APPRENTICE PLUMBER [address] [facility] Adult Internal Medicine [address] [facility] Pediatrics [address] [facility], [address] Neuro / Headache [address] [facility] Friday 8:30a 5p [facility] [address] [facility] Fri, , , Fri 9:00a 4:30p Wed 1:00p 4:30p [facility] [address] [facility] [address] [facility] Friday 8:30a 5:00p [facility] Specialty Clinics [address] [facility] Building [address] Burn/Plastic, ENT, GI, Orthopedics, Surgical / Trauma, Urology, Vascular Friday 8:00 4:30p Call for an appointment [facility] [address] [facility] Adult Medicine, Eye Clinic, Dental Patient must be certified homeless Under age 18 not accepted Friday 8:00 4:30p [facility] [address] [facility] OB Friday, Friday, Friday, Friday 9a 5p 9a 6p Friday (OB only) [facility] [address] [facility] OB/ Friday 11a 7p , Fri, 9a 5p Friday 8a 4p 1st Friday 9a 1p Podiatry Clinic [address] [facility] [employer] Building [address] Friday 8:00 4:30 p Center [facility] [address] [place] Free nurse visits [place] programs Counseling Class Call or walk in [facility] [address] [place] Various Clinics 8a 5:30p [facility] Family Medicine [facility] [address] [facility], [address] Family Practice Friday 8a 4:30p [facility] [address] [place] [address] [address] [place] [address] Friday 8a 4:30p Friday 8a 4:30p 8a 8p Outpatient Clinics [facility] [place] [facility] [address] [facility] Friday 9a 5p Diabetic Education Services Call for an appointment [facility] Heart Failure Clinic [address] [facility] Friday 8:30a 4p Dental Services [facility] [address] [facility] Must have source of income and must bring (2) recent check stubs to appointment By appointment only [facility] [address] Patient must be homeless, call for eligibility guidelines. Under age 18 NOT accepted Days and hours vary (Doors open at 8:30a day of week varies) Call for an appointment Miscellaneous Information [facility] Call for Help [phone] Call for an appointment H.E.L.P (Hospital Eligibility Link Program) toll free For financial assistance * Attachments The following attachments cannot be sent through Care Everywhere. * Bacterial Vaginosis (Spanish) * UTI (Urinary Tract Infection): Female (Spanish) * Vitamin D: General Info (Spanish) documented in this encounter Assessments Diagnosis BV [...] section and content) DATE CREATED AUTHOR 07/16/2020 [facility] DATE CREATED AUTHOR AUTHOR'S ORGANIZ ATION 09/07/2022 [facility] DATE CREATED AUTHOR AUTHOR'S ORGANIZ ATION 03/13/2023 [facility] DATE CREATED AUTHOR AUTHOR'S ORGANIZ ATION 08/15/2023 [facility] dical Specialists EPIC Care Teams (unrecognized [...] BE BASED ON THE PRIMARY CLINICAL RECORDS. [employer] provides no warranty or guarantee of the accuracy or completeness of information in this document.
--- NOTE | 2023-08-22 16:50 | US_ITS ---
The [address] [address] Patient Name: TEODORO HERNANDES MRN: [id number] date: 2000 Sex: F Assigned Patient Location: ER Current Patient Location: ER Accession/Order Number: [id number] Exam Date: 08/22/2023 17:55 Report Date: 08/22/2023 19:02 At the request of: NOLAN CANTOR Procedure: US OB cervical length EXAM: US OB placenta, US OB cervical length 08/22/2023 3:58 PM PDT, [id number], [id number] HISTORY: vaginal bleeding 15 weeks. TECHNIQUE: Transabdominal and transvaginal grayscale and color sonographic images with M-mode scanning of the gravid uterus and intrauterine fetus were acquired. COMPARISON: ultrasound exams 07/18/2023 and 07/03/2023. FINDINGS/IMPRESSION: Single live intrauterine gestation in a breech position with a normal heart rate of 154 bpm. The cervix is long and closed measuring 3.6 cm. The leading edge of the placenta measures 3.5 cm from the internal os and the placental location is posterior. There is a trace amount of hypoechoic fluid in the cervical canal. movement is seen during scanning. Electronically authenticated by: MORE JAQUEZ Date: 08/22/2023 19:02
--- NOTE | 2023-08-22 16:50 | US_ITS ---
[address] [address] Patient Name: TEODORO HERNANDES MRN: [id number] date: 2000 Sex: F Assigned Patient Location: ER Current Patient Location: ER Accession/Order Number: [id number] Exam Date: 08/22/2023 17:55 Report Date: 08/22/2023 19:02 At the request of: NOLAN CANTOR Procedure: US OB placenta EXAM: US OB placenta, US OB cervical length 08/22/2023 3:58 PM PDT, [id number], [id number] HISTORY: vaginal bleeding 15 weeks. TECHNIQUE: Transabdominal and transvaginal grayscale and color sonographic images with M-mode scanning of the gravid uterus and intrauterine fetus were acquired. COMPARISON: ultrasound exams 07/18/2023 and 07/03/2023. FINDINGS/IMPRESSION: Single live intrauterine gestation in a breech position with a normal heart rate of 154 bpm. The cervix is long and closed measuring 3.6 cm. The leading edge of the placenta measures 3.5 cm from the internal os and the placental location is posterior. There is a trace amount of hypoechoic fluid in the cervical canal. movement is seen during scanning. Electronically authenticated by: MORE JAQUEZ Date: 08/22/2023 19:02
--- NOTE | 2023-08-22 16:57 | ED.PREGNANC1 ---
HPI - General Chief complaint: OB/Uterine Contractions Stated complaint: 15 WEEKS PREG, BLEEDING Time Seen by Provider: 08/22/23 16:46 Source: patient Mode of arrival: walk-in Related Data Home Medications ?Medication ?Instructions ?Recorded ?Confirmed ondansetron HCl 4 mg tablet 4 mg PO Q6H PRN nausea and vomiting 07/25/23 07/25/23 promethazine 12.5 mg tablet 12.5 mg PO Q6H PRN nausea and 07/25/23 07/25/23 vomiting Allergies Allergy/AdvReac Type Severity Reaction Status Date / Time No Known Drug Allergies Allergy Verified 03/26/23 11:41 Exam Constitutional Vital Signs, click to edit/add: Last Vital Signs Temp 98.7 F 08/22/23 16:44 Pulse 85 08/22/23 18:26 Resp 18 08/22/23 18:26 BP 148/86 H 08/22/23 18:26 Pulse Ox 98 08/22/23 18:26 O2 Del Method Room Air 08/22/23 16:44 Course Vital Signs Vital signs: Vital Signs Temperature 98.7 F 08/22/23 16:44 Pulse Rate 85 08/22/23 16:44 Respiratory Rate 18 08/22/23 16:44 Blood Pressure 157/86 H 08/22/23 16:44 Pulse Oximetry 99 08/22/23 16:44 Oxygen Delivery Method Room Air 08/22/23 16:44 Temperature 98.7 F 08/22/23 16:44 Pulse Rate 85 08/22/23 18:26 Respiratory Rate 18 08/22/23 18:26 Blood Pressure 148/86 H 08/22/23 18:26 Pulse Oximetry 98 08/22/23 18:26 Oxygen Delivery Method Room Air 08/22/23 16:44 MDM - OB/Uterine Contractions MDM Narrative Medical decision making narrative: Patient did not require Tylenol or nausea medication in the ER. She was not able to provide a urine specimen and ultrasound of the cervical length and placenta show no evidence of acute abnormality with cervix closed. Patient and mother at bedside given education and reassurance. Pelvic rest encouraged for home. Follow-up with HEALTHCARE FACILITY ADMINISTRATOR and return to the ER if symptoms change or worsen Medical Records Attestation: I reviewed the patient's medical records. Lab Data Attestation: I reviewed the patient's lab results. Imaging Data US - abdomen: Attestation: I have reviewed the pertinent imaging results. Radiologist's impression: Procedure: US OB cervical length EXAM: US OB placenta, US OB cervical length 08/22/2023 3:58 PM PDT, [id number], [id number] HISTORY: vaginal bleeding 15 weeks. TECHNIQUE: Transabdominal and transvaginal grayscale and color sonographic images with M-mode scanning of the gravid uterus and intrauterine fetus were acquired. COMPARISON: ultrasound exams 07/18/2023 and 07/03/2023. FINDINGS/IMPRESSION: Single live intrauterine gestation in a breech position with a normal heart rate of 154 bpm. The cervix is long and closed measuring 3.6 cm. The leading edge of the placenta measures 3.5 cm from the internal os and the placental location is posterior. There is a trace amount of hypoechoic fluid in the cervical canal. movement is seen during scanning. Electronically authenticated by: MORE JAQUEZ Date: 08/22/2023 19:02 Procedure: US OB placenta EXAM: US OB placenta, US OB cervical length 08/22/2023 3:58 PM PDT, [id number], [id number] HISTORY: vaginal bleeding 15 weeks. TECHNIQUE: Transabdominal and transvaginal grayscale and color sonographic images with M-mode scanning of the gravid uterus and intrauterine fetus were acquired. COMPARISON: ultrasound exams 07/18/2023 and 07/03/2023. FINDINGS/IMPRESSION: Single live intrauterine gestation in a breech position with a normal heart rate of 154 bpm. The cervix is long and closed measuring 3.6 cm. The leading edge of the placenta measures 3.5 cm from the internal os and the placental location is posterior. There is a trace amount of hypoechoic fluid in the cervical canal. movement is seen during scanning. Electronically authenticated by: MORE JAQUEZ Date: 08/22/2023 19:02 Discharge Plan Discharge Stand Alone Forms: Portal Instructions Chief Complaint: OB/Uterine Contractions Clinical Impression: Vaginal bleeding during Patient Disposition: Home, Self-Care Time of Disposition Decision: 19:19 Condition: Good Prescriptions / Home Meds: No Action ondansetron HCl 4 mg tablet 4 mg PO Q6H PRN (Reason: nausea and vomiting) promethazine 12.5 mg tablet 12.5 mg PO Q6H PRN (Reason: nausea and vomiting) Print Language: French Instructions: Threatened Miscarriage (ED) Referrals: Physician,Non-Staff, MD [Primary Care Provider] - 1 week
[2023-08-22 18:26] VITALS: BP 148/86; PULSE 85; RESP 18; O2SAT 98
== END 2023-08-22 19:26 | disposition home or self-care (01) ==
PROVIDERS: Emergency Provider Emergency Medicine
DX: O46.92 Antepartum hemorrhage, unspecified, second trimester (principal); Z3A.15 15 weeks gestation of pregnancy; Z79.899 Other long term (current) drug therapy
CPT/HCPCS: 76815; 76817; 99285

== ENCOUNTER 2023-10-01 08:36 | Outpatient (OUT) | payer MEDICAID, SELFPAY ==
[2023-10-01 13:34] LABS: Basophils Percent Auto 0.3 % (0.2-2.0); Eosinophils Absolute Auto 0.1 10^3/uL (0.0-0.7); Eosinophils Percent Auto 1.2 % (0.9-7.0); Hematocrit 34.2 % (36.0-48.0); Hemoglobin 11.1 g/dL (12.0-16.0); Immature Granulocytes Abs Auto 0.04 10^3/uL (0.00-0.03); Immature Granulocytes Pct Auto 0.4 % (0.0-0.5); Lymphocytes Absolute Auto 1.7 10^3/uL (1.2-3.8); Mean Corpuscular HGB Conc 32.5 g/dL (29.9-35.2); Mean Corpuscular Hemoglobin 28.1 pg (26.7-34.0); Mean Corpuscular Volume 86.6 fL (81.0-99.0); Mean Platelet Volume 10.7 fL (9.5-13.5); Monocytes Absolute Auto 0.6 10^3/uL (0.3-0.8); Monocytes Percent Auto 5.2 % (1.7-12.0); Neutrophils Absolute Auto 8.8 10^3/uL (1.4-6.5); Neutrophils Percent Auto 77.9 % (43.0-75.0); Platelet Count 313 10^3/uL (150-450); Red Blood Count 3.95 10^6/uL (4.20-5.40); Red Cell Distribution Width 13.7 % (11.0-15.0); White Blood Count 11.3 10^3/uL (4.0-11.0)
[2023-10-01 14:08] LABS: Glucose 1 Hour 126 mg/dL (<130)
--- OUTSIDE RECORDS SUMMARY | 2023-10-02 08:42 | XMS_ITS | CCD ---
Demographics Address [address] [place] [address] Preferred Language en Marital Status Single Zoroastrianism Affiliation Unknown Race Unknown Ethnic Group Not or Lati no Author Organization [facility] Care Team Providers Care Manager Acquisition Name Role Phone Unavailable Primary Care Provider [...] Lyons Attending Unavailable HALIMA CULLEN Attending Unavailable CHUNG YOUSIF Attending Unavailable Allergies Allergy Classification Reported Allergen(s) Allergy Type Date of Onset Reaction(s) Facility (1 source) Latex Propensity to adverse reactions to drug 07-07-2020 [facility], [place] Medications Current Medications Medication Drug Class(es) Dates [...] days 40 tablet 0 07/03/2023 07/13/2023 Active Bulaijiz-Vbe-Ye-FA ( 1 + IRON PO) (4 sources) Sqlfhmkf-Eza-Tr-FA ( 1 + IRON PO) Take by [...] UA Negative Negative - 4(70) +++ mg/dL [facility] Blood, UA Negative Negative - 50 William/mcL [facility] Clarity, UA Clear [facility] Color, UA Yellow [facility] Glucose, UA Negative Negative - 1999(110) ++++ mg/dL [facility] Interpretation and review of laboratory results Abnormal [facility] Ketones, UA Negative Negative - 160(16) ++++ mg/dL [facility] Leukocytes, UA Positive Negative - 500+++ Gerald/mcL [facility] Nitrite, UA Negative Negative - Positive [facility] pH, UA 7.0 5 - 9 [facility] Protein, UA Negative Negative - 1999(20) ++++ mg/dL [facility] Spec Grav, UA 1.020 1 - 1.03 [facility] Urobilinogen, UA 0.2 0.2 - 12 mg/dL [facility] HCG ( test) Ql (U)o n 07-03-2023 Interpretation and review of laboratory results Abnormal [facility] Preg Test, Ur Negative [facility] Urinalysis macro (dipstick) panel (U)on 07-03-2023 Bilirubin, UA Negative Negative - 4(70) +++ mg/dL [facility] Blood, UA Negative Negative - 50 William/mcL [facility] Clarity, UA Clear [facility] Color, UA Yellow [facility] Glucose, UA Negative Negative - 1999(110) ++++ mg/dL [facility] Interpretation and review of laboratory results Normal [facility] Ketones, UA Negative Negative - 160(16) ++++ mg/dL [facility] Leukocytes, UA Negative Negative - 500+++ Gerald/mcL [facility] Nitrite, UA Negative Negative - Positive [facility] pH, UA 5.5 5 - 9 [facility] Protein, UA Negative Negative - 1999(20) ++++ mg/dL [facility] Spec Grav, UA 1.010 1 - 1.03 [facility] Urobilinogen, UA 1.0 0.2 - 12 mg/dL [facility] XR FOOT RT MIN 3 [...] Date: 2022-08-30 14:42 Normal [facility] CBC AUTO DIFFon 06-28-2022 BASO # 0.0 103/ul Normal 0.0-0.1 [facility] Comment on above: Performed By: #### C BC #### [facility] [address] [place] [address] Dr. Jerald Poon Basophils/100 WBC (Bld) 0.3 % Normal 0.2-2.0 [facility] Comment on above: Performed By: #### C BC #### [facility] [address] [place] [address] Dr. Jerald Poon EO # 0.1 103/ul Normal 0.0-0.7 [facility] Comment on above: Performed By: #### C BC #### [facility] [address] [place] [address] Dr. Jerald Poon Eosinophils/100 WBC (Bld) 1.1 % Normal 0.9-7.0 [facility] Comment on above: Performed By: #### C BC #### [facility] [address] [place] [address] Dr. Jerald Poon Erythrocyte distribution width (RBC) [Ratio] 14.5 % Normal 11.0-15.0 [facility] Comment on above: Performed By: #### C BC #### [facility] [address] [place] [address] Dr. Jerald Poon Hematocrit (Bld) [Volume fraction] 36.7 % Normal 36.0-48.0 [facility] Comment on above: Performed By: #### C BC #### [facility] [address] [place] [address] Dr. Jerald Poon Hemoglobin (Bld) [Mass/Vol] 13.0 g/dL Normal 12.0-16.0 [facility] Comment on above: Performed By: #### C BC #### [facility] [address] [place] [address] Dr. Jerald Poon IG # 0.04 10e3/ul Critically high 0.00-0.03 [facility] Comment on above: Performed By: #### C BC #### [facility] [address] [place] [address] Dr. Jerald Poon IG % 0.3 % Normal 0.0-0.5 [facility] Comment on above: Performed By: #### C BC #### [facility] [address] [place] [address] Dr. Jerald Poon LYMPH # 3.0 103/ul Normal 1.2-3.8 [facility] Comment on above: Performed By: #### C BC #### [facility] [address] [place] [address] Dr. Jerald Poon Lymphocytes/100 WBC (Bld) 26.2 % Normal 20.5-60.0 [facility] Comment on above: Performed By: #### C BC #### [facility] [address] [place] [address] Dr. Jerald Poon MANUAL DIFF REQ NO Normal [facility] Comment on above: Performed By: #### C BC #### [facility] [address] [place] [address] Dr. Jerald Poon MCH (RBC) [Entitic mass] 27.1 pg Normal 26.7-34.0 [facility] Comment on above: Performed By: #### C BC #### [facility] [address] [place] [address] Dr. Jerald Poon MCHC (RBC) [Mass/Vol] 35.4 g/dL Critically high 29.9-35.2 [facility] Comment on above: Performed By: #### C BC #### [facility] [address] [place] [address] Dr. Jerald Poon MCV (RBC) [Entitic vol] 76.6 fL Critically low 81.0-99.0 [facility] Comment on above: Performed By: #### C BC #### [facility] [address] [place] [address] Dr. Jerald Poon MONO # 0.8 103/ul Normal 0.3-0.8 [facility] Comment on above: Performed By: #### C BC #### [facility] [address] [place] [address] Dr. Jerald Poon Monocytes/100 WBC (Bld) 7.0 % Normal 1.7-12.0 [facility] Comment on above: Performed By: #### C BC #### [facility] [address] [place] [address] Dr. Jerald Poon NEUT # 7.5 103/ul Critically high 1.4-6.5 [facility] Comment on above: Performed By: #### C BC #### [facility] [address] [place] [address] Dr. Jerald Poon Neutrophils/100 WBC (Bld) 65.1 % Normal 43.0-75.0 [facility] Comment on above: Performed By: #### C BC #### [facility] [address] [place] [address] Dr. Jerald Poon Platelet mean volume (Bld) [Entitic vol] 10.0 fL Normal 9.5-13.5 [facility] Comment on above: Performed By: #### C BC #### [facility] [address] [place] [address] Dr. Jerlad Poon PLT 387 103/ul Normal 150-450 [facility] Comment on above: Performed By: #### C BC #### [facility] [address] [place] [address] Dr. Jerald Poon RBC 4.79 106/ul Normal 4.20-5.40 [facility] Comment on above: Performed By: #### C BC #### [facility] [address] [place] [address] Dr. Jerald Poon WBC 11.6 103/ul Critically high 4.0-11.0 [facility] Comment on above: Performed By: #### C BC #### [facility] [address] [place] [address] Dr. Jerald Poon CULTURE URINEon 06-28-2022 CULTURE URINE Culture Observations: LIGHT GROWTH OF MIXED GENITAL ZACARIAS. NO POTENTIAL PATHOGENS SEEN. Normal [facility] Comment on above: Performed By: #### U RCX #### [facility] [address] [place] [address] Dr. Jerald Poon ER URINE PROFILEon 3 Bilirubin Ql (U) Negative Normal NEGATIVE [facility] Comment on above: Performed By: #### U MICRO, ERUR #### [facility] [address] [place] [address] Dr. Jerald Poon Clarity (U) CLEAR Normal CLEAR [facility] Comment on above: Performed By: #### U MICRO, ERUR #### [facility] [address] [place] [address] Dr. Jerald Poon Color (U) YELLOW Normal YELLOW [facility] Comment on above: Performed By: #### U MICRO, ERUR #### [facility] [address] [place] [address] Dr. Jerald Poon ERUAHD A micrscopic examination will be performed if indicated. Normal [facility] Comment on above: Performed By: #### U MICRO, ERUR #### [facility] [address] [place] [address] Dr. Jerald Poon Glucose Ql (U) Negative Normal NEGATIVE [facility] Comment on above: Performed By: #### U MICRO, ERUR #### [facility] [address] [address] [address] Jerald Poon Hemoglobin Ql (U) Negative Normal NEGATIVE [facility] Comment on above: Performed By: #### U MICRO, ERUR #### [facility] [address] [address] [address] Jerlad Poon Ketones Ql (U) 40 mg/dl Abnormal NEGATIVE [facility] Comment on above: Performed By: #### U MICRO, ERUR #### [facility] [address] [place] [address] Dr. Jerald Poon LEUKOCYTES TRACE Abnormal NEGATIVE [facility] Comment on above: Performed By: #### U MICRO, ERUR #### [facility] [address] [address] [address] Jerald Poon Nitrite Ql (U) Negative Normal NEGATIVE [facility] Comment on above: Performed By: #### U MICRO, ERUR #### [facility] [address] [address] [address] Jerald Poon pH (U) 6.0 [pH] Normal 5-9 [facility] Comment on above: Performed By: #### U MICRO, ERUR #### [facility] [address] [place] [address] Dr. Jerald Poon SPEC GRAVITY >=1.030 Abnormal 1.005-<=1.025 [facility] Comment on above: Performed By: #### U MICRO, ERUR #### [facility] [address] [address] [address] Jerald Poon UA PROTEIN Negative Normal NEGATIVE/ TRACE [facility] Comment on above: Performed By: #### U MICRO, ERUR #### [facility] [address] [address] [address] Jerald Poon UR MICRO IND INDICATED Normal [facility] Comment on above: Performed By: #### U MICRO, ERUR #### [facility] [address] [place] [address] Dr. Jerald Poon Urobilinogen Qn (U) 0.2 {Lyly'U}/dL Normal 0.2 - 1. 0 [facility] Comment on above: Performed By: #### U MICRO, ERUR #### [facility] [address] [place] [address] Dr. Jerald Poon PREG QUANT HCGon 06-28-2022 HCG QUANT <1 Normal [facility] Comment on above: Performed By: #### P REGQNT #### [facility] [address] [place] [address] Dr. Jerald Poon HCG RANGE SEE BELOW Normal [facility] Comment on above: Result Comment: 5-50 0.2-1 WEEK 50-500 1-2 WEEKS 100-5,000 2-3 WEEKS 500-10,000 3-4 WEEKS 1,000-50,000 4-5 WEEKS 10,000-100,000 5-6 WEEKS 15,000-200,000 6-8 WEEKS 10,000-100,000 2-3 MONTHS Performed By: #### P REGQNT #### [facility] [address] [place] [address] Dr. Jerald Poon PROF CHEM 8 (BAS METB)on Anion gap [Moles/Vol] 14.0 mmol/L Normal [facility] Comment on above: Performed By: #### C BC #### [facility] [address] [place] [address] Dr. Jerald Poon Calcium [Mass/Vol] 9.6 mg/dL Normal 8.5-10.1 [facility] Comment on above: Performed By: #### C BC #### [facility] [address] [place] [address] Dr. Jerald Poon Chloride [Moles/Vol] 101 mmol/L Normal 98-107 [facility] Comment on above: Performed By: #### C BC #### [facility] [address] [place] [address] Dr. Jerald Poon CO2 [Moles/Vol] 25.4 mmol/L Normal 21.0-32.0 [facility] Comment on above: Performed By: #### C BC #### [facility] [address] [place] [address] Dr. Jerald Poon Creatinine [Mass/Vol] 0.92 mg/dL Normal 0.55-1.02 [facility] Comment on above: Performed By: #### C BC #### [facility] [address] [address] [address] Jerald Poon EGFR-AF FINNISH >60 Normal >=60 [facility] Comment on above: Performed By: #### C BC #### [facility] [address] [address] [address] Jerald Poon EGFR-NON AF FINNISH >60 Normal >=60 [facility] Comment on above: Performed By: #### C BC #### [facility] [address] [address] [address] eJrald Poon Glucose [Mass/Vol] 101 mg/dL Normal 74-106 [facility] Comment on above: Performed By: #### C BC #### [facility] [address] [address] [address] Jerald Poon Potassium [Moles/Vol] 3.4 mmol/L Critically low 3.5-5.1 [facility] Comment on above: Performed By: #### C BC #### [facility] [address] [address] [address] Jerald Poon Sodium [Moles/Vol] 137 mmol/L Normal 136-145 [facility] Comment on above: Performed By: #### C BC #### [facility] [address] [address] [address] Jerald Poon Urea nitrogen [Mass/Vol] 11.0 mg/dL Normal 7.0-18.0 [facility] Comment on above: Performed By: #### C BC #### [facility] [address] [address] [address] Jerald Poon Urea nitrogen/Creatinine [Mass ratio] 12.0 mg/mg Normal [facility] Comment on above: Performed By: #### C BC #### [facility] [address] [address] [address] Jerald Poon TSHon 06-28-2022 TSH 1.319 uIU/mL Normal 0.358-3.740 [facility] Comment on above: Performed By: #### C BC #### [facility] [address] [address] [address] Jerald Poon URINE MICROSCOPIC ONLYon BACTERIA SMALL Abnormal NONE SEEN [facility] Comment on above: Performed By: #### U MICRO, ERUR #### [facility] [address] [place] [address] Dr. Jerald Poon Bacteria identified Cx Nom (U) INDICATED Normal [facility] Comment on above: Performed By: #### U MICRO, ERUR #### [facility] [address] [address] [address] Jerald Poon CAST NONE SEEN Normal NONE SEEN [facility] Comment on above: Performed By: #### U MICRO, ERUR #### [facility] [address] [place] [address] Dr. Jerald Poon Crystals LM Nom (Urine sed) NONE SEEN Normal NONE SEEN [facility] Comment on above: Performed By: #### U MICRO, ERUR #### [facility] [address] [place] [address] Dr. Jerald Poon Epithelial cells LM Ql (Urine sed) FEW Abnormal NONE SEEN /RARE [facility] Comment on above: Performed By: #### U MICRO, ERUR #### [facility] [address] [place] [address] Dr. Jerald Poon MUCOUS NONE SEEN Normal NONE SEEN [facility] Comment on above: Performed By: #### U MICRO, ERUR #### [facility] [address] [address] [address] Jerald Poon RBC NONE SEEN Abnormal 0-2 [facility] Comment on above: Performed By: #### U MICRO, ERUR #### [facility] [address] [address] [address] Jerald Poon WBC 2-5 Abnormal NONE SEEN [facility] Comment on above: Performed By: #### U MICRO, ERUR #### [facility] [address] [place] [address] Dr. Jerald Poon CBC AUTO DIFFon 04-01-2022 BASO # 0.0 103/ul Normal 0.0-0.1 [facility] Comment on above: Performed By: #### C BC #### [facility] [address] [place] [address] Dr. Jerald Poon Basophils/100 WBC (Bld) 0.5 % Normal 0.2-2.0 [facility] Comment on above: Performed By: #### C BC #### [facility] [address] [place] [address] Dr. Jerald Poon EO # 0.1 103/ul Normal 0.0-0.7 [facility] Comment on above: Performed By: #### C BC #### [facility] [address] [place] [address] Dr. Jerald Poon Eosinophils/100 WBC (Bld) 1.7 % Normal 0.9-7.0 [facility] Comment on above: Performed By: #### C BC #### [facility] [address] [place] [address] Dr. Jerald Poon Erythrocyte distribution width (RBC) [Ratio] 14.2 % Normal 11.0-15.0 [facility] Comment on above: Performed By: #### C BC #### [facility] [address] [place] [address] Dr. Jerald Poon Hematocrit (Bld) [Volume fraction] 36.7 % Normal 36.0-48.0 [facility] Comment on above: Performed By: #### C BC #### [facility] [address] [place] [address] Dr. Jerald Poon Hemoglobin (Bld) [Mass/Vol] 12.1 g/dL Normal 12.0-16.0 [facility] Comment on above: Performed By: #### C BC #### [facility] [address] [place] [address] Dr. Jerald Poon IG # 0.01 10e3/ul Normal 0.00-0.03 [facility] Comment on above: Performed By: #### C BC #### [facility] [address] [place] [address] Dr. Jerald Poon IG % 0.1 % Normal 0.0-0.5 [facility] Comment on above: Performed By: #### C BC #### [facility] [address] [place] [address] Dr. Jerald Poon LYMPH # 2.3 103/ul Normal 1.2-3.8 [facility] Comment on above: Performed By: #### C BC #### [facility] [address] [place] [address] Dr. Jerald Poon Lymphocytes/100 WBC (Bld) 30.8 % Normal 20.5-60.0 [facility] Comment on above: Performed By: #### C BC #### [facility] [address] [place] [address] Dr. Jerald Poon MANUAL DIFF REQ NO Normal [facility] Comment on above: Performed By: #### C BC #### [facility] [address] [place] [address] Dr. Jerald Poon MCH (RBC) [Entitic mass] 27.3 pg Normal 26.7-34.0 [facility] Comment on above: Performed By: #### C BC #### [facility] [address] [place] [address] Dr. Jerald Poon MCHC (RBC) [Mass/Vol] 33.0 g/dL Normal 29.9-35.2 [facility] Comment on above: Performed By: #### C BC #### [facility] [address] [place] [address] Dr. Jerald Poon MCV (RBC) [Entitic vol] 82.7 fL Normal 81.0-99.0 [facility] Comment on above: Performed By: #### C BC #### [facility] [address] [place] [address] Dr. Jerald Poon MONO # 0.8 103/ul Normal 0.3-0.8 [facility] Comment on above: Performed By: #### C BC #### [facility] [address] [place] [address] Dr. Jerald Poon Monocytes/100 WBC (Bld) 10.6 % Normal 1.7-12.0 [facility] Comment on above: Performed By: #### C BC #### [facility] [address] [place] [address] Dr. Jerald Poon NEUT # 4.2 103/ul Normal 1.4-6.5 [facility] Comment on above: Performed By: #### C BC #### [facility] [address] [place] [address] Dr. Jerald Poon Neutrophils/100 WBC (Bld) 56.3 % Normal 43.0-75.0 [facility] Comment on above: Performed By: #### C BC #### [facility] [address] [place] [address] Dr. Jerald Poon Platelet mean volume (Bld) [Entitic vol] 10.2 fL Normal 9.5-13.5 [facility] Comment on above: Performed By: #### C BC #### [facility] [address] [place] [address] Dr. Jerald Poon PLT 375 103/ul Normal 150-450 [facility] Comment on above: Performed By: #### C BC #### [facility] [address] [place] [address] Dr. Jerald Poon RBC 4.44 106/ul Normal 4.20-5.40 [facility] Comment on above: Performed By: #### C BC #### [facility] [address] [place] [address] Dr. Jerald Poon WBC 7.5 103/ul Normal 4.0-11.0 [facility] Comment on above: Performed By: #### C BC #### [facility] [address] [place] [address] Dr. Jerald Poon ER URINE PROFILEon 2 Bilirubin Ql (U) Negative Normal NEGATIVE [facility] Comment on above: Performed By: #### C BC #### [facility] [address] [place] [address] Dr. Jerald Poon Clarity (U) CLEAR Normal CLEAR [facility] Comment on above: Performed By: #### C BC #### [facility] [address] [place] [address] Dr. Jerald Poon Color (U) YELLOW Normal YELLOW [facility] Comment on above: Performed By: #### C BC #### [facility] [address] [place] [address] Dr. Jerald CEBALLOS A micrscopic examination will be performed if indicated. Normal [facility] Comment on above: Performed By: #### C BC #### [facility] [address] [place] [address] Dr. Jerald Poon Glucose Ql (U) Negative Normal NEGATIVE [facility] Comment on above: Performed By: #### C BC #### [facility] [address] [place] [address] Dr. Jerald Poon Hemoglobin Ql (U) Negative Normal NEGATIVE [facility] Comment on above: Performed By: #### C BC #### [facility] [address] [place] [address] Dr. Jreald Poon Ketones Ql (U) Negative Normal NEGATIVE [facility] Comment on above: Performed By: #### C BC #### [facility] [address] [place] [address] Dr. Jerald Poon LEUKOCYTES Negative Normal NEGATIVE [facility] Comment on above: Performed By: #### C BC #### [facility] [address] [place] [address] Dr. Jerald Poon Nitrite Ql (U) Negative Normal NEGATIVE [facility] Comment on above: Performed By: #### C BC #### [facility] [address] [place] [address] Dr. Jerald Poon pH (U) 7.0 [pH] Normal 5-9 [facility] Comment on above: Performed By: #### C BC #### [facility] [address] [place] [address] Dr. Jerald Poon SPEC GRAVITY 1.025 Normal 1.005-<=1.025 [facility] Comment on above: Performed By: #### C BC #### [facility] [address] [place] [address] Dr. Jerald Poon UA PROTEIN Negative Normal NEGATIVE/ TRACE [facility] Comment on above: Performed By: #### C BC #### [facility] [address] [address] [address] Jerald Poon UR MICRO IND NOT INDICATED Normal [facility] Comment on above: Performed By: #### C BC #### [facility] [address] [address] [address] Jerald Poon Urobilinogen Qn (U) 1.0 {Lyly'U}/dL Normal 0.2 - 1. 0 [facility] Comment on above: Performed By: #### C BC #### [facility] [address] [place] [address] Dr. Jerald Poon PREG QUANT HCGon 04-01-2022 HCG QUANT 1 mIU/mL Normal [facility] Comment on above: Performed By: #### P REGQNT #### [facility] [address] [place] [address] Dr. Jerald Poon HCG RANGE SEE BELOW Normal [facility] Comment on above: Result Comment: 5-50 0.2-1 WEEK 50-500 1-2 WEEKS 100-5,000 2-3 WEEKS 500-10,000 3-4 WEEKS 1,000-50,000 4-5 WEEKS 10,000-100,000 5-6 WEEKS 15,000-200,000 6-8 WEEKS 10,000-100,000 2-3 MONTHS Performed By: #### P REGQNT #### [facility] [address] [place] [address] Dr. Jerald Poon PROF 14(COMP METB)on 022 Albumin [Mass/Vol] 3.6 g/dL Normal 3.4-5.0 [facility] Comment on above: Performed By: #### C MP #### [facility] [address] [place] [address] Dr. Jerald Poon Albumin/Globulin [Mass ratio] 0.8 {ratio} Normal [facility] Comment on above: Performed By: #### C MP #### [facility] [address] [place] [address] Dr. Jerald Poon ALP [Catalytic activity/Vol] 65 U/L Normal 46-116 [facility] Comment on above: Performed By: #### C MP #### [facility] [address] [address] [address] Jerald Poon ALT [Catalytic activity/Vol] 22 U/L Normal 14-59 [facility] Comment on above: Performed By: #### C MP #### [facility] [address] [address] [address] Jerald Poon Anion gap [Moles/Vol] 10.3 mmol/L Normal Th [facility] Comment on above: Performed By: #### C MP #### [facility] [address] [address] [address] Jerald Poon AST [Catalytic activity/Vol] 14 U/L Critically low 15-37 [facility] Comment on above: Performed By: #### C MP #### [facility] [address] [address] [address] Jerald Poon Bilirubin [Mass/Vol] 0.1 mg/dL Critically low 0.2-1.0 [facility] Comment on above: Performed By: #### C MP #### [facility] [address] [address] [address] Jerald Poon Calcium [Mass/Vol] 8.6 mg/dL Normal 8.5-10.1 [facility] Comment on above: Performed By: #### C MP #### [facility] [address] [address] [address] Jerald Poon Chloride [Moles/Vol] 104 mmol/L Normal 98-107 [facility] Comment on above: Performed By: #### C MP #### [facility] [address] [address] [address] Jerald Poon CO2 [Moles/Vol] 28.1 mmol/L Normal 21.0-32.0 [facility] Comment on above: Performed By: #### C MP #### [facility] [address] [address] [address] Jerald Poon Creatinine [Mass/Vol] 0.99 mg/dL Normal 0.55-1.02 [facility] Comment on above: Performed By: #### C MP #### [facility] [address] [address] [address] Jerald Poon EGFR-AF FINNISH >60 Normal >=[address] [facility] Comment on above: Performed By: #### C MP #### [facility] [address] [address] [address] Jerald Poon EGFR-NON AF FINNISH >60 Normal >=60 [facility] Comment on above: Performed By: #### C MP #### [facility] [address] [address] [address] Jerald Poon Globulin (S) [Mass/Vol] 4.5 g/dL Normal [facility] Comment on above: Performed By: #### C MP #### [facility] [address] [address] [address] Jerald Poon Glucose [Mass/Vol] 94 mg/dL Normal 74-106 [facility] Comment on above: Performed By: #### C MP #### [facility] [address] [address] [address] Jerald Poon Potassium [Moles/Vol] 3.4 mmol/L Critically low 3.5-5.1 [facility] Comment on above: Performed By: #### C MP #### [facility] [address] [address] [address] Jerald Poon Protein [Mass/Vol] 8.1 g/dL Normal 6.4-8.2 [facility] Comment on above: Performed By: #### C MP #### [facility] [address] [address] [address] Jerald Poon Sodium [Moles/Vol] 139 mmol/L Normal 136-145 [facility] Comment on above: Performed By: #### C MP #### [facility] [address] [address] [address] Jerald Poon Urea nitrogen [Mass/Vol] 8.0 mg/dL Normal 7.0-18.0 [facility] Comment on above: Performed By: #### C MP #### [facility] [address] [address] [address] Jerald Poon Urea nitrogen/Creatinine [Mass ratio] 8.1 mg/mg Normal [facility] Comment on above: Performed By: #### C #### [facility] [address] [place] [address] Dr. Jerald Poon US PELVIS TRANSVAGon 022 [...] LUH MANRIQUE Date: 2022-04-01 21:55 Normal [facility] Automated erythrocytes count in urine sediment (number/area)Ordered By: Anders Sesay on 10-19-2021 RBC Auto (Urine sed) [#/Area] 1-2 [HPF] [facility] Automated leukocytes count i n urine sediment (number/area)Ordered By: Anders Sesay on 10-19-2021 WBC Auto (Urine sed) [#/Area] 3-4 [HPF] [facility] Basophils Auto (Bld) [#/Vol] Ordered By: Anders Sesay on 10-19-2021 Basophils (Bld) [#/Vol] 0.1 10*3/uL 0.0-0.2 [facility] Basophils/100 WBC Auto (Bld) Ordered By: Anders Sesay on 10-19-2021 Basophils/100 WBC (Bld) 0.6 % [facility] Bilirubin Test strip Ql (U)O rdered By: Anders Sesay on 10-19-2021 Bilirubin Ql (U) Negative Negative [facility] Blood hemoglobin measurement (mass/volume)Ordered By: Anders Sesay on 10-19-2021 Hemoglobin (Bld) [Mass/Vol] 13.2 g/dL 11.8-15.4 [facility] Blood leukocytes automated c ount (number/volume)Ordered By: Anders Sesay on 10-19-2021 WBC (Bld) [#/Vol] 9.1 10*3/uL 4.5-11.0 [facility] Body fluid albumin measureme nt (mass/volume)Ordered By: Anders Sesay on 10-19-2021 Albumin (Body fld) [Mass/Vol] 3.8 g/dL 3.2-5.5 [facility] Color Auto (U)Ordered By: Jason Sesay on 10-19-2021 Color (U) Yellow Yellow [facility] Creatinine and Glomerular fi ltration rate.predicted panel (S/P/Bld)Ordered By: Anders Sesay on 10-19-2021 Creatinine [Mass/Vol] 0.87 mg/dL 0.44-1.03 [facility] Eosinophils Auto (Bld) [#/Vo l]Ordered By: Anders Sesay on 10-19-2021 Eosinophils (Bld) [#/Vol] 0.1 10*3/uL 0.0-0.45 [facility] Eosinophils/100 WBC Auto (Bl d)Ordered By: Anders Sesay on 10-19-2021 Eosinophils/100 WBC (Bld) 0.9 % [facility] Erythrocyte distribution wid th Auto (RBC) [Ratio]Ordered By: Anders Sesay on 10-19-2021 Erythrocyte distribution width (RBC) [Ratio] 16.4 % 11.9-15.3 [facility] Estimated glomerular filtrat ion rate (GFR) non- AmericanOrdered By: Anders Sesay on 10-19-2021 GFR/1.73 sq M.predicted among non-blacks MDRD (S/P/Bld) [Vol rate/Area] > 60 mL/Min [facility] Globulin Calc (S) [Mass/Vol] Ordered By: Anders Sesay on 10-19-2021 Globulin (S) [Mass/Vol] 4.3 g/dL [facility] HCG ( test) IA.rapi d Ql (U)Ordered By: Anders Sesay on 10-19-2021 HCG ( test) Ql (U) Negative [facility] Hematocrit Auto (Bld) [Volum e fraction]Ordered By: Adners Sesay on 10-19-2021 Hematocrit (Bld) [Volume fraction] 40.2 % 34.0-46.4 [facility] Ketones Auto test strip (U) [Mass/Vol]Ordered By: Anders Sesay on 10-19-2021 Ketones (U) [Mass/Vol] Negative Negative [facility] - Hematology and Cell countsOrdered By: Anders Sesay on 10-19-2021 Nucleated RBC/100 WBC (Bld) [Ratio] 0.2 % 0-0.5 [facility] Laboratory - UrinalysisOrder ed By: Anders Sesay on 10-19-2021 Hyaline casts LM Ql (Urine sed) 0-8 [LPF] [facility] Lymphocytes Auto (Bld) [#/Vo l]Ordered By: Anders Sesay on 10-19-2021 Lymphocytes (Bld) [#/Vol] 2.4 10*3/uL 1.00-4.8 [facility] Lymphocytes/100 WBC Auto (Bl d)Ordered By: Anders Sesay on 10-19-2021 Lymphocytes/100 WBC (Bld) 26.7 % [facility] MCH Auto (RBC) [Entitic mass ]Ordered By: Anders Sesay on 10-19-2021 MCH (RBC) [Entitic mass] 26.3 pg 24.7-34.3 [facility] MCHC Auto (RBC) [Mass/Vol]Or dered By: Anders Sesay on 10-19-2021 MCHC (RBC) [Mass/Vol] 32.9 g/dL 32.0-35.0 [facility] MCV Auto (RBC) [Entitic vol] Ordered By: Anders Sesay on 10-19-2021 MCV (RBC) [Entitic vol] 80.1 fL 80-100 [facility] Monocytes Auto (Bld) [#/Vol] Ordered By: Anders Sesay on 10-19-2021 Monocytes (Bld) [#/Vol] 0.7 10*3/uL 0.0-0.8 [facility] Monocytes/100 WBC Auto (Bld) Ordered By: Anders Sesay on 10-19-2021 Monocytes/100 WBC (Bld) 7.6 % [facility] Neutrophils Auto (Bld) [#/Vo l]Ordered By: Anders Sesay on 10-19-2021 Neutrophils (Bld) [#/Vol] 5.8 10*3/uL 1.8-7.7 [facility] Neutrophils/100 WBC Auto (Bl d)Ordered By: Anders Sesay on 10-19-2021 Neutrophils/100 WBC (Bld) 64.2 % [facility] Nitrite Test strip Ql (U)Ord ered By: Anders Sesay on 10-19-2021 Nitrite Ql (U) Negative Negative [facility] No Panel InformationOrdered By: Anders Sesay on 10-19-2021 Estimated GFR () > 60 mL/Min [facility] Comment on above: GFR estimated refere nce range: According to KDOQI guidelines, <60 ml/min/1.73m2 is sufficient to diagnose a patient with chronic kidney disease. Pharmacy Creatinine Clearance (Chem 147.41 [facility] Platelet mean volume Auto (B ld) [Entitic vol]Ordered By: Anders Sesay on 10-19-2021 Platelet mean volume (Bld) [Entitic vol] 8.6 fL 6.3-10.7 [facility] Platelets Auto (Bld) [#/Vol] Ordered By: Anders Sesay on 10-19-2021 Platelets (Bld) [#/Vol] 395 10*3/uL 150-450 [facility] Protein Auto test strip (U) [Mass/Vol]Ordered By: Anders Sesay on 10-19-2021 Protein (U) [Mass/Vol] Negative Negative [facility] Protein [Mass/volume] in Ser um or PlasmaOrdered By: Anders Sesay on 10-19-2021 Protein [Mass/Vol] 8.1 g/dL 6.1-7.9 [facility] RBC Auto (Bld) [#/Vol]Ordere d By: Anders Sesay on 10-19-2021 RBC (Bld) [#/Vol] 5.02 10*6/uL 3.60-5.00 [facility] Serum or plasma alanine ayoub otransferase measurement without P-5'-P (enzymatic activiOrdered By: Anders Sesay on 10-19-2021 ALT No additional P-5'-P [Catalytic activity/Vol] 20 U/L 10-60 [facility] Serum or plasma albumin/glob ulin mass ratioOrdered By: Anders Sesay on 10-19-2021 Albumin/Globulin [Mass ratio] 0.9 {ratio} [facility] Serum or plasma alkaline cosmo sphatase measurement (enzymatic activity/volume)Ordered By: Anders Sesay on 10-19-2021 ALP [Catalytic activity/Vol] 55 U/L 32-92 [facility] Serum or plasma aspartate am inotransferase measurement (enzymatic activity/volume)Ordered By: Anders Sesay on 10-19-2021 AST [Catalytic activity/Vol] 17 U/L 10-42 [facility] Serum or plasma calcium joann urement (mass/volume)Ordered By: Anders Sesay on 10-19-2021 Calcium [Mass/Vol] 9.1 mg/dL 8.2-10.2 [facility] Serum or plasma chloride adan surement (moles/volume)Ordered By: Anders Sesay on 10-19-2021 Chloride [Moles/Vol] 103 mmol/L 95-114 [facility] Serum or plasma glucose joann urement (mass/volume)Ordered By: Anders Sesay on 10-19-2021 Glucose [Mass/Vol] 105 mg/dL 70-100 [facility] Comment on above: ADA recommended refe rence range Random Glucose Reference Range is dependent on time and content of last meal. Glucose of more than 200 mg/dL in a nonstressed, ambulatory subject supports the diagnosis of Diabetes Mellitus. Serum or plasma potassium me asurement (moles/volume)Ordered By: Anders Sesay on 10-19-2021 Potassium [Moles/Vol] 3.7 mmol/L 3.5-5.1 [facility] Serum or plasma sodium measu rement (moles/volume)Ordered By: Anders Sesay on 10-19-2021 Sodium [Moles/Vol] 137 mmol/L 136-146 [facility] Serum or plasma total biliru bin measurement (mass/volume)Ordered By: Anders Sesay on 10-19-2021 Bilirubin [Mass/Vol] 0.3 mg/dL 0.3-1.2 [facility] Serum or plasma total carbon dioxide measurement (moles/volume)Ordered By: Anders Sesay on 10-19-2021 CO2 [Moles/Vol] 24.2 mmol/L 22.0-30.0 [facility] Serum or plasma urea nitroge n measurement (mass/volume)Ordered By: Anders Sesay on 10-19-2021 Urea nitrogen [Mass/Vol] 7 mg/dL 9-23 [facility] Specific gravity Auto test s trip (U) [Rel density]Ordered By: Anders Sesay on 10-19-2021 Specific gravity (U) [Rel density] 1.014 1.001-1.030 [facility] Squamous epithelial cells de tection in urine sediment by light microscopyOrdered By: Anders Sesay on 10-19-2021 Epithelial cells.squamous LM Ql (Urine sed) 3-4 [HPF] [facility] Urine bacteria detection by automated methodOrdered By: Anders Sesay on 10-19-2021 Bacteria Auto Ql (U) 1+ None Seen [facility] Urine clarity by refractomet ry automatedOrdered By: Anders Sesay on 10-19-2021 Clarity Refractometry automated (U) Clear Clear [facility] Urine glucose measurement by automated test strip (mass/volume)Ordered By: Anders Sesay on 10-19-2021 Glucose Auto test strip (U) [Mass/Vol] Normal mg/dL Normal [facility] Urine hemoglobin detection b y automated test stripOrdered By: Anders Sesay on 10-19-2021 Hemoglobin Auto test strip Ql (U) Negative Negative [facility] Urine leukocyte esterase det ection by automated test stripOrdered By: Anders Sesay on 10-19-2021 Leukocyte esterase Auto test strip Ql (U) 1+ Negative [facility] Urobilinogen Auto test strip (U) [Mass/Vol]Ordered By: Anders Sesay on 10-19-2021 Urobilinogen (U) [Mass/Vol] Normal mg/dL Normal [facility] pH Auto test strip (U)Ordere d By: Anders Sesay on 10-19-2021 pH (U) 5.5 [pH] 5.0-9.0 [facility] US DUP ABD PEL RETRO SCROT L [...] MD 07/14/20 Edited Result - FINAL Normal [facility] US NON OB TRANSVAGINALon US NON OB [...] MD 07/14/20 Edited Result - FINAL Normal [facility] Chlamydia/GC,DNA Ampon 07-10 Chlamydia Probe Negative Normal NEG [facility] Comment on above: Result Comment: CHLA MYDIA [...] Performed By: #### U HCG, UAMIC #### [facility] [address] [place], [place] [id number] Tax Accounting Manager: Campos Avilez MD Gonorrhea Probe Negative Normal NEG [facility] Comment on above: Result Comment: NEIS SERIA [...] Performed By: #### U HCG, UAMIC #### [facility] [address] [place], [place] [id number] Tax Accounting Manager: Campos Avilez MD Cult,Urineon 07-09-2020 Cult,Urine Specimen Description .CLEAN CATCH URINE Special Requests NOT REPORTED Culture ESCHERICHIA COLI >[id number] CFU/ML Report Status FINAL 07/09/2020 SUSCEPTIBILITY Organism [...] <=20 SUSCEPTIBLE Piperacillin/Tazobac her <=4 SUSCEPTIBLE Normal [facility] Comment on above: Performed By: #### U HCG, UAMIC #### [address] [address] Tax Accounting Manager: Campos Avilez MD ABO/Rh(D)on 07-08-2020 ABO/Rh(D) Positive Normal [facility] Comment on above: Performed By: #### A [facility] #### [place] [address] Tax Accounting Manager: Campos Avilez MD CBC with Diffon 07-08-2020 Abs. Basophil 0.04 k/uL Normal 0.00-0.20 [facility] Comment on above: Performed By: #### C P, CDP, COSMO, BHCG, MG, VD25, LIP #### [facility] [address] [place] [address] Tax Accounting Manager: Campos Avilez MD Abs.Imm.Granulocyte 0.04 k/uL Normal 0.00-0.30 [facility] Comment on above: Performed By: #### C P, CDP, COSMO, BHCG, MG, VD25, LIP #### [facility] [address] [place] [address] Tax Accounting Manager: Campos Avilez MD Abs.Neutrophil (Seg) 8.16 k/uL High 1.80-8.00 [facility] Comment on above: Performed By: #### C P, CDP, CSOMO, BHCG, MG, VD25, LIP #### [address] [address] Tax Accounting Manager: Campos Avilez MD Basophils/100 WBC (Bld) 0 % Normal 0-2 [facility] Comment on above: Performed By: #### C P, CDP, COSMO, BHCG, MG, VD25, LIP #### [address] [id number] Tax Accounting Manager: Campos Avilez MD Eosinophils (Bld) [#/Vol] 0.10 10*3/uL Normal 0.00-0.44 [facility] Comment on above: Performed By: #### C P, CDP, COSMO, BHCG, MG, VD25, LIP #### [address] [address] Tax Accounting Manager: Campos Avilez MD Eosinophils/100 WBC (Bld) 1 % Normal 1-4 [facility] Comment on above: Performed By: #### C P, CDP, COSMO, BHCG, MG, VD25, LIP #### [place] [address] Tax Accounting Manager: Campos Avilez MD Erythrocyte distribution width (RBC) [Ratio] 14.0 % Normal 11.8-14.4 [facility] Comment on above: Performed By: #### C P, CDP, COSMO, BHCG, MG, VD25, LIP #### [place] [address] Tax Accounting Manager: Campos Avilez MD Hematocrit (Bld) [Volume fraction] 34.3 % Low 36.3-47.1 [facility] Comment on above: Performed By: #### C P, CDP, COSMO, BHCG, MG, VD25, LIP #### [address] [address] Tax Accounting Manager: Campos Avilez MD Hemoglobin (Bld) [Mass/Vol] 11.1 g/dL Low 11.9-15.1 [facility] Comment on above: Performed By: #### C P, CDP, COSMO, BHCG, MG, VD25, LIP #### [address] [address] Tax Accounting Manager: Campos Avilez MD Immature granulocytes (Bld) [#/Vol] 0 % Normal 0 [facility] Comment on above: Performed By: #### C P, CDP, COSMO, BHCG, MG, VD25, LIP #### [address] [address] Tax Accounting Manager: Campos Avilez MD Lymphocytes (Bld) [#/Vol] 1.77 10*3/uL Normal 1.20-5.20 [facility] Comment on above: Performed By: #### C P, CDP, COSMO, BHCG, MG, VD25, LIP #### [place] [address] Tax Accounting Manager: Campos Avilez MD Lymphocytes/100 WBC (Bld) 16 % Low 25-45 [facility] Comment on above: Performed By: #### C P, CDP, COSMO, BHCG, MG, VD25, LIP #### [address] [address] Tax Accounting Manager: Campos Avilez MD MCH (RBC) [Entitic mass] 26.6 pg Normal 25.0-35.0 [facility] Comment on above: Performed By: #### C P, CDP, COSMO, BHCG, MG, VD25, LIP #### [address] [address] Tax Accounting Manager: Campos Avilez MD MCHC (RBC) [Mass/Vol] 32.4 g/dL Normal 28.4-34.8 [facility] Comment on above: Performed By: #### C P, CDP, COSMO, BHCG, MG, VD25, LIP #### [address] [address] Tax Accounting Manager: Campos Avilez MD MCV (RBC) [Entitic vol] 82.3 fL Normal 78.0-102.0 [facility] Comment on above: Performed By: #### C P, CDP, CSOMO, BHCG, MG, VD25, LIP #### [address] [address] Tax Accounting Manager: Campos Avilez MD Monocytes (Bld) [#/Vol] 0.73 10*3/uL Normal 0.10-1.40 [facility] Comment on above: Performed By: #### C P, CDP, COSMO, BHCG, MG, VD25, LIP #### [address] [address] Tax Accounting Manager: Campos Avilez MD Monocytes/100 WBC (Bld) 7 % Normal 2-8 [facility] Comment on above: Performed By: #### C P, CDP, COSMO, BHCG, MG, VD25, LIP #### [address] [address] Tax Accounting Manager: Campos Avilez MD Neutrophil (Seg) 75 % High 34-64 [facility] Comment on above: Performed By: #### C P, CDP, COSMO, BHCG, MG, VD25, LIP #### [address] [address] Tax Accounting Manager: Campos Avilez MD NRBC Automated 0.0 per 100 WBC Normal 0.0 [facility] Comment on above: Performed By: #### C P, CDP, COSMO, BHCG, MG, VD25, LIP #### [address] [address] Tax Accounting Manager: Campos Avilez MD Platelet mean volume (Bld) [Entitic vol] 11.8 fL Normal 8.1-13.5 [facility] Comment on above: Performed By: #### C P, CDP, COSMO, BHCG, MG, VD25, LIP #### [facility] [address] [place] [address] Tax Accounting Manager: Campos Avilez MD Platelets (Bld) [#/Vol] 288 10*3/uL Normal 138-453 [facility] Comment on above: Performed By: #### C P, CDP, COSMO, BHCG, MG, VD25, LIP #### [address] [address] Tax Accounting Manager: Campos Avilez MD RBC (Bld) [#/Vol] 4.17 10*6/uL Normal 3.95-5.11 [facility] Comment on above: Performed By: #### C P, CDP, COSMO, BHCG, MG, VD25, LIP #### [address] [address] Tax Accounting Manager: Campos Avilez MD WBC (Bld) [#/Vol] 10.8 10*3/uL Normal 4.5-13.5 [facility] Comment on above: Performed By: #### C P, CDP, COSMO, BHCG, MG, VD25, LIP #### [facility] [address] [place] [address] Tax Accounting Manager: Campos Avilez MD Auto Diff Performed NOT REPORTED Normal [facility] Comment on above: Performed By: #### C P, CDP, COSMO, BHCG, MG, VD25, LIP #### [facility] [address] [place] [address] Tax Accounting Manager: Campos Avilez MD Platelets (Bld) [#/Vol] NOT REPORTED Normal [facility] Comment on above: Performed By: #### C P, CDP, COSMO, BHCG, MG, VD25, LIP #### [address] [place] [address] Tax Accounting Manager: Campos Avilez MD RBC morphology finding Nom (Bld) NOT REPORTED Normal [facility] Comment on above: Performed By: #### C P, CDP, COSMO, BHCG, MG, VD25, LIP #### [address] [place] [address] Tax Accounting Manager: Campos Avilez MD WBC Morphology NOT REPORTED Normal [facility] Comment on above: Performed By: #### C P, CDP, COSMO, BHCG, MG, VD25, LIP #### [address] [address] Tax Accounting Manager: Campos Avilez MD Calcium, Ionicon 07-08-2020 Calcium [Mass/Vol] 1.18 mmol/L Normal 1.13-1.33 [facility] Comment on above: Performed By: #### I OCAL #### [address] [address] Tax Accounting Manager: Campos Avilez MD Calcium, Ionizedon Calcium [Mass/Vol] 1.18 mmol/L 1.13 - 1. 33 mmol/L [facility] [place] Comp Metabolic Profon 2020 (cont.) Normal [facility] Comment on above: Result Comment: Aver age GFR for <20 years old not available. Chronic Kidney Disease: <60 mL/min/1.73sq m Kidney failure: <15 mL/min/1.73sq m eGFR calculated using average adult body mass. Additional eGFR calculator available at: http://www.Goby.com/multiple_crcl_2012.htm Performed By: #### C P, CDP, COSMO, BHCG, MG, VD25, LIP #### [id number] [place] [address] Tax Accounting Manager: Campos Avilez MD Albumin [Mass/Vol] 2.3 g/dL Low 3.5-5.2 [facility] Comment on above: Performed By: #### C P, CDP, COSMO, BHCG, MG, VD25, LIP #### [address] [address] Tax Accounting Manager: Campos Avilez MD Albumin/Globulin [Mass ratio] 0.9 {ratio} Low 1.0-2.5 [facility] Comment on above: Performed By: #### C P, CDP, COSMO, BHCG, MG, VD25, LIP #### [address] [address] Tax Accounting Manager: Campos Avilez MD Alkaline Phos 41 U/L Normal 35-104 [facility] Comment on above: Result Comment: SPEC IMEN MODERATELY HEMOLYZED, RESULTS MAY BE ADVERSELY AFFECTED Performed By: #### C P, CDP, COSMO, BHCG, MG, VD25, LIP #### [address] [address] Tax Accounting Manager: Campos Avilez MD ALT [Catalytic activity/Vol] 11 U/L Normal 5-33 [facility] Comment on above: Result Comment: SPEC IMEN MODERATELY HEMOLYZED, RESULTS MAY BE ADVERSELY AFFECTED Performed By: #### C P, CDP, COSMO, BHCG, MG, VD25, LIP #### [address] [address] Tax Accounting Manager: Campos Avilez MD Anion gap [Moles/Vol] 9 mmol/L Normal 9-17 [facility] Comment on above: Performed By: #### C P, CDP, COSMO, BHCG, MG, VD25, LIP #### [address] [address] Tax Accounting Manager: Campos Avilez MD AST [Catalytic activity/Vol] 28 U/L Normal <32 [facility] Comment on above: Result Comment: SPEC IMEN MODERATELY HEMOLYZED, RESULTS MAY BE ADVERSELY AFFECTED Performed By: #### C P, CDP, COSMO, BHCG, MG, VD25, LIP #### [address] [address] Tax Accounting Manager: Campos Avilez MD Bilirubin Ql (U) <0.10 Low 0.3-1.2 [facility] Comment on above: Performed By: #### C P, CDP, COSMO, BHCG, MG, VD25, LIP #### [address] [address] Tax Accounting Manager: Campos Avilez MD Calcium [Mass/Vol] 5.5 mg/dL Critically low 8.6-10.4 [facility] Comment on above: Performed By: #### C P, CDP, COSMO, BHCG, MG, VD25, LIP #### [address] [address] Tax Accounting Manager: Campos Avilez MD Chloride [Moles/Vol] 118 mmol/L High 98-107 [facility] Comment on above: Performed By: #### C P, CDP, COSMO, BHCG, MG, VD25, LIP #### [address] [address] Tax Accounting Manager: Campos Avilez MD CO2 [Moles/Vol] 14 mmol/L Low 20-31 [facility] Comment on above: Performed By: #### C P, CDP, COSMO, BHCG, MG, VD25, LIP #### [address] [address] Tax Accounting Manager: Campos Avilez MD Creatinine [Mass/Vol] 0.60 mg/dL Normal 0.50-0.90 [facility] Comment on above: Performed By: #### C P, CDP, COSMO, BHCG, MG, VD25, LIP #### [address] [address] Tax Accounting Manager: Campos Avilez MD GFR,non Amer Pediatric GFR requires additional information. Refer to NKDEP website for Normal >60 [facility] Comment on above: Result Comment: calc ulator. Performed By: #### C P, CDP, COSMO, BHCG, MG, VD25, LIP #### [address] [address] Tax Accounting Manager: Campos Avilez MD Glucose [Mass/Vol] 84 mg/dL Normal 70-99 [facility] Comment on above: Performed By: #### C P, CDP, COSMO, BHCG, MG, VD25, LIP #### [address] [address] Tax Accounting Manager: Campos Avilez MD Potassium [Moles/Vol] 5.1 mmol/L Normal 3.7-5.3 [facility] Comment on above: Result Comment: SPEC IMEN MODERATELY HEMOLYZED, RESULTS MAY BE ADVERSELY AFFECTED Performed By: #### C P, CDP, COSMO, BHCG, MG, VD25, LIP #### [address] [address] Tax Accounting Manager: Campos Avilez MD Protein [Mass/Vol] 5.0 g/dL Low 6.4-8.3 [facility] Comment on above: Performed By: #### C P, CDP, COSMO, BHCG, MG, VD25, LIP #### [facility] [address] [place] [address] Tax Accounting Manager: Campos Avilez MD Sodium [Moles/Vol] 141 mmol/L Normal 135-144 [facility] Comment on above: Performed By: #### C P, CDP, COSMO, BHCG, MG, VD25, LIP #### [address] [address] Tax Accounting Manager: Campos Avilez MD Urea nitrogen [Mass/Vol] 10 mg/dL Normal 6-20 [facility] Comment on above: Performed By: #### C P, CDP, COSMO, BHCG, MG, VD25, LIP #### [facility] [place] [address] Tax Accounting Manager: Campos Avilez MD BUN/CRE Ratio NOT REPORTED Normal 9-20 [facility] Comment on above: Performed By: #### C P, CDP, COSMO, BHCG, MG, VD25, LIP #### [facility] [address] [place] [address] Tax Accounting Manager: Campos Avilez MD GFR, Amer NOT REPORTED Normal >60 [facility] Comment on above: Performed By: #### C P, CDP, COSMO, BHCG, MG, VD25, LIP #### [address] [address] Tax Accounting Manager: Campos Avilez MD Staging: NOT REPORTED Normal [facility] Comment on above: Performed By: #### C P, CDP, COSMO, BHCG, MG, VD25, LIP #### [facility] [address] [place] [address] Tax Accounting Manager: Campos Avilez MD HCG, ,Urineon 07-080 Beta HCG ( test) Ql (U) Negative Normal NEG [facility] Comment on above: Result Comment: Spec imens with hCG levels near the threshold of the test (25 mIU/mL) may give a negative or indeterminate result. In such cases, another test should be performed with a new specimen in 48-72 hours. If early is suspected clinically in this setting, correlation with quantitative serum b-hCG level is suggested. Performed By: #### U HCG, UAMIC #### [address] [address] Tax Accounting Manager: Campos Avilez MD HCG, Quanton 07-08-2020 HCG, Quant <1 Normal <5 [facility] Comment on above: Result Comment: Non-preg premeno [...] CDP, COSMO, BHCG, MG, VD25, LIP #### [facility] [place], [place] [phone] Tax Accounting Manager: Campos Avilez MD Lipaseon 07-08-2020 Lipase [Catalytic activity/Vol] 15 U/L Normal 13-60 [facility] Comment on above: Performed By: #### C P, CDP, COSMO, BHCG, MG, VD25, LIP #### [facility] [address] [place] [phone] Tax Accounting Manager: Campos Avilez MD Magnesiumon 07-08-2020 Magnesium [Mass/Vol] 1.2 mg/dL Low 1.7-2.2 [facility] Comment on above: Performed By: #### C P, CDP, COSMO, BHCG, MG, VD25, LIP #### [facility] [address] [place] [address] Tax Accounting Manager: Campos Avilez MD Interpretation and review of laboratory results Abnormal [place] Magnesium [Mass/Vol] 1.2 mg/dL Low 1.7 - 2 .2 mg/dL [place] Otheron 07-08-2020 Direct Exam Negative [place] , URINEon Beta HCG ( test) Ql (U) Negative NEGATIVE [place] Comment on above: Specimens with hCG [...] 2.6 mg/dL 2.5 - 4 .8 mg/dL [place] Phosphorus, Inorg.on 021 Phosphorus, Inorg. 2.6 mg/dL Normal 2.5-4.8 [facility] Comment on above: Performed By: #### U HCG, UAMIC #### [facility] [address] [place] [address] Tax Accounting Manager: Campos Avilez MD NON OB TRANSVAGINALon Elia, Mhpn Incoming Radiant Results From [employer] - 07/08/2020 12:31 AM EST EXAMINATION: [...] No evidence of ovarian torsion is noted. [place] Unremarkable pelvic ultrasound. No evidence of ovarian torsion is noted. [place] EXAMINATION: PELVIC ULTRASOUND 07/07/2020 TECHNIQUE: Transvaginal [...] Free Fluid: No evidence of free fluid. [facility] [place], [place] Urinalysis w/ Microon 2020 ----- Normal [facility] Comment on above: Performed By: #### U HCG, UAMIC #### [address] [address] Tax Accounting Manager: Campos Avilez MD Acetoacetic Acid,Ur Negative Normal NEG [facility] Comment on above: Performed By: #### U HCG, UAMIC #### [address] [address] Tax Accounting Manager: Campos Avilez MD Bacteria LM.HPF (Urine sed) [#/Area] MANY Abnormal NONE [facility] Comment on above: Performed By: #### U HCG, UAMIC #### [address] [address] Tax Accounting Manager: Campos Avilez MD Bilirubin, SemiQt,Ur Negative Normal NEG [facility] Comment on above: Performed By: #### U HCG, UAMIC #### [address] [address] Tax Accounting Manager: Campos Avilez MD Color (U) ORANGE Abnormal YEL [facility] Comment on above: Result Comment: INTE RPRET WITH CAUTION DUE TO INTENSE COLOR OF URINE. Performed By: #### U HCG, UAMIC #### [address] [address] Tax Accounting Manager: Campos Avilez MD Epithelial cells LM.HPF (Urine sed) [#/Area] 0 TO 2 Normal 0-5 [facility] Comment on above: Performed By: #### U HCG, UAMIC #### [address] [address] Tax Accounting Manager: Campos Avilez MD Glucose Ql (U) Negative Normal NEG [facility] Comment on above: Performed By: #### U HCG, UAMIC #### [address] [address] Tax Accounting Manager: Campos Avilez MD Hemoglobin, Ur LARGE Abnormal NEG [facility] Comment on above: Performed By: #### U HCG, UAMIC #### [address] [address] Tax Accounting Manager: Campos Avilez MD Leukocyte esterase Test strip Ql (U) MODERATE Abnormal NEG [facility] Comment on above: Performed By: #### U HCG, UAMIC #### [address] [address] Tax Accounting Manager: Campos Avilez MD Nitrite,Ur Positive Abnormal NEG [facility] Comment on above: Performed By: #### U HCG, UAMIC #### [address] [address] Tax Accounting Manager: Campos Avilez MD pH (U) 5.5 [pH] Normal 5.0-8.0 [facility] Comment on above: Performed By: #### U HCG, UAMIC #### [address] [address] Tax Accounting Manager: Campos Avilez MD Protein Ql (U) 2+ Abnormal NEG [facility] Comment on above: Performed By: #### U HCG, UAMIC #### [address] [address] Tax Accounting Manager: Campos Avilez MD RBC (U) [#/Vol] 50 TO 100 Normal 0-4 [facility] Comment on above: Result Comment: Refe rence range defined for non-centrifuged specimen. Performed By: #### U HCG, UAMIC #### [address] [address] Tax Accounting Manager: Campos Avilez MD Specific gravity (U) [Rel density] 1.021 Normal 1.005-1.030 [facility] Comment on above: Performed By: #### U HCG, UAMIC #### [address] [address] Tax Accounting Manager: Campos Avilez MD Turbidity TURBID Abnormal CLEAR [facility] Comment on above: Performed By: #### U HCG, UAMIC #### [address] [address] Tax Accounting Manager: Campos Avilez MD Urobilinogen,Ur Normal Normal NORM [facility] Comment on above: Performed By: #### U HCG, UAMIC #### [address] [address] Tax Accounting Manager: Campos Avilez MD WBC (U) [#/Vol] TOO NUMEROUS TO COUNT Normal 0-5 [facility] Comment on above: Performed By: #### U HCG, UAMIC #### [address] [address] Tax Accounting Manager: Campos Avilez MD Amorphous sediment LM Ql (Urine sed) NOT REPORTED Normal NONE [facility] Comment on above: Performed By: #### U HCG, UAMIC #### [address] [address] Tax Accounting Manager: Campos Avilez MD Casts LM.LPF (Urine sed) [#/Area] NOT REPORTED Normal 0-8 [facility] Comment on above: Performed By: #### U HCG, UAMIC #### [address] [address] Tax Accounting Manager: Campos Avilez MD Crystals LM Nom (Urine sed) NOT REPORTED Normal NONE [facility] Comment on above: Performed By: #### U HCG, UAMIC #### [address] [address] Tax Accounting Manager: Campos Avilez MD Epithelial, Renal NOT REPORTED Normal 0 [facility] Comment on above: Performed By: #### U HCG, UAMIC #### [facility] [address] [place] [address] Tax Accounting Manager: Campos Avilez MD Mucus Strands NOT REPORTED Normal NONE [facility] Comment on above: Performed By: #### U HCG, UAMIC #### [address] [address] Tax Accounting Manager: Campos Avilez MD Other Observations NOT REPORTED Normal NREQ [facility] Comment on above: Performed By: #### U HCG, UAMIC #### [address] [address] Tax Accounting Manager: Campos Avilez MD Trichomonas NOT REPORTED Normal NONE [facility] Comment on above: Performed By: #### U HCG, UAMIC #### [address] [address] Tax Accounting Manager: Campos Avilez MD Yeast LM Ql (Urine sed) NOT REPORTED Normal [facility] Comment on above: Performed By: #### U HCG, UAMIC #### [address] [address] Tax Accounting Manager: Campos Avilez MD Urinalysis with microscopico n 07-08-2020 Amorphous, UA NOT REPORTED None [facility] [place], [place] Bacteria, UA MANY Abnormal None [facility], [place] Bilirubin Urine Negative NEGATIVE [facility] [place] Casts UA NOT REPORTED [facility], [place] Color, UA ORANGE Abnormal YELLOW [facility], [place] Comment on above: INTERPRET WITH CAUTI ON DUE TO INTENSE COLOR OF URINE. Crystals, UA NOT REPORTED None /HPF [facility] [place] Epithelial Cells UA 0 TO 2 [place] Glucose, Ur Negative NEGATIVE [place] Interpretation and review of laboratory results Abnormal [place] Ketones Ql (U) Negative NEGATIVE [place], [place] Leukocyte esterase Test strip Ql (U) MODERATE Abnormal NEGATIVE [place] Mucus, UA NOT REPORTED None [place], [place] Nitrite, Urine Positive Abnormal NEGATIVE [place], [place] Other Observations UA NOT REPORTED NOT REQ. M [place], [place] pH, UA 5.5 [place] Protein (U) [Mass/Vol] 2+ Abnormal NEGATIVE [place], [place] RBC (U) [#/Vol] 50 TO 100 [place], [place] Comment on above: Reference range defi sonia for non-centrifuged specimen. Renal Epithelial, UA NOT REPORTED 0 /HPF [place], [place] Specific [place], UA 1.021 [place], [place] Trichomonas, UA NOT REPORTED None [place] Turbidity UA TURBID Abnormal CLEAR [place] Urine Hgb LARGE Abnormal NEGATIVE [place] Urobilinogen, Urine Normal Normal [place] WBC, UA TOO NUMEROUS TO COUNT [place] Yeast, UA NOT REPORTED None [place] VAGINITIS DNA PROBEon 2020 Direct Exam Positive Abnormal [place] Direct Exam Method of testing is a DNA probe intended for detection and identification of Samantha species, Gardnerella vaginalis, and Trichomonas vaginalis nucleic acid in vaginal fluid specimens from patients with symptoms of vaginitis/vaginosis. [place] Interpretation and review of laboratory results Abnormal [place] Special Requests NOT REPORTED [place] Specimen Description .VAGINA [place], [place] Vaginitis DNA Probeon 2020 Vaginitis DNA [...] of vaginitis/vaginosis. Report Status FINAL 07/08/2020 Normal [facility] Comment on above: Performed By: #### U HCG, UAMIC #### [facility] [address] [place] [address] Tax Accounting Manager: Campos Avilez MD Vitamin D 25 Hydroxyon 07-08 Interpretation and review of laboratory results Abnormal [place], [place] Vit D, 25-Hydroxy 12.1 ng/mL Low 30 - 100 ng/mL [place] Comment on above: Reference Range: Vitamin D status Range Deficiency <20 ng/mL Mild Deficiency 20-30 ng/mL Sufficiency 30-100 ng/mL Toxicity >100 ng/mL Vitamin D 25 OHon 07-08-2020 Vitamin D 25 [place] 12.1 ng/mL Low 30.0-100.0 [facility] Comment on above: Result Comment: Reference Range: Vitamin D status Range Deficiency <20 ng/mL Mild Deficiency 20-30 ng/mL Sufficiency 30-100 ng/mL Toxicity >100 ng/mL Performed By: #### U HCG, UAMIC #### [facility] [address] [place] [phone] Tax Accounting Manager: Campos Avielz MD ABO/RHon 07-07-2020 ABO/Rh Positive [place] CBC WITH AUTO DIFFERENTIALon 07-07-2020 Basophils (Bld) [#/Vol] 0.04 10*3/uL [place] Basophils/100 WBC (Bld) 0 % 0 - 2 % [place] Differential Type NOT REPORTED [place] Eosinophils (Bld) [#/Vol] 0.10 10*3/uL [place] Eosinophils/100 WBC (Bld) 1 % 1 - 4 % [place] Erythrocyte distribution width (RBC) [Ratio] 14.0 % 11.8 - 14.4 % [place] Hematocrit (Bld) [Volume fraction] 34.3 % Low 36.3 - 47.1 % [place] Hemoglobin (Bld) [Mass/Vol] 11.1 g/dL Low 11.9 - 15.1 g/dL [place] Immature granulocytes (Bld) [#/Vol] 0 % 0 [place] Immature granulocytes (Bld) [#/Vol] 0.04 10*3/uL [place] Interpretation and review of laboratory results Abnormal [place] Lymphocytes (Bld) [#/Vol] 1.77 10*3/uL [place] Lymphocytes/100 WBC (Bld) 16 % Low 25 - 45 % [place] MCH (RBC) [Entitic mass] 26.6 pg 25 - 35 pg [place] MCHC (RBC) [Mass/Vol] 32.4 g/dL 28.4 - 34.8 g/dL [place] MCV (RBC) [Entitic vol] 82.3 fL 78 - 102 fL [place] Monocytes (Bld) [#/Vol] 0.73 10*3/uL [place] Monocytes/100 WBC (Bld) 7 % 2 - 8 % [place] Platelet mean volume (Bld) [Entitic vol] 11.8 fL 8.1 - 13.5 fL [place] Platelets (Bld) [#/Vol] NOT REPORTED [place] Platelets (Bld) [#/Vol] 288 10*3/uL [place] RBC (Bld) [#/Vol] 4.17 10*6/uL 3.95 - 5.1 1 m/uL [place] RBC morphology finding Nom (Bld) NOT REPORTED [place] Segmented neutrophils/100 WBC (Bld) 75 % High 34 - 64 % [place] Segs Absolute 8.16 High [place], [place] WBC (Bld) [#/Vol] 0.0 10*3/uL 0.0 per 10 0 WBC [place] WBC (Bld) [#/Vol] 10.8 10*3/uL [place] WBC Morphology NOT REPORTED [place] COMPREHENSIVE METABOLIC PANE Mikie 07-07-2020 Albumin [Mass/Vol] 2.3 g/dL Low 3.5 - 5.2 g/dL [place] Albumin/Globulin [Mass ratio] 0.9 {ratio} Low [place] ALP [Catalytic activity/Vol] 41 U/L 35 - 104 U/L [place] Comment on above: SPECIMEN MODERATELY HEMOLYZED, RESULTS MAY BE ADVERSELY AFFECTED ALT [Catalytic activity/Vol] 11 U/L 5 - 33 U/L [place] Comment on above: SPECIMEN MODERATELY HEMOLYZED, RESULTS MAY BE ADVERSELY AFFECTED Anion gap [Moles/Vol] 9 mmol/L 9 - 17 mmol/L [place] AST [Catalytic activity/Vol] 28 U/L <32 [place] Comment on above: SPECIMEN MODERATELY HEMOLYZED, RESULTS MAY BE ADVERSELY AFFECTED Bilirubin Ql (U) <0.10 Low 0.3 - 1.2 mg/dL [place] Bun/Cre Ratio NOT REPORTED [place] Calcium [Mass/Vol] 5.5 mg/dL Critically low 8.6 - 1 0.4 mg/dL [place] Chloride [Moles/Vol] 118 mmol/L High 98 - 10 7 mmol/L [place] CO2 [Moles/Vol] 14 mmol/L Low 20 - 31 mmol/L [place] Creatinine [Mass/Vol] 0.6 mg/dL 0.5 - 0.9 mg/dL [place] GFR NOT REPORTED >60 mL/min [place] GFR Non- Pediatric GFR requires additional information. Refer to NKDEP website for calculator. >60 mL/min [place] GFR/1.73 sq M predicted among non-blacks MDRD (S/P/Bld) [Vol rate/Area] NOT REPORTED [place] GFR/1.73 sq M predicted among non-blacks MDRD (S/P/Bld) [Vol rate/Area] [place] Comment on above: Average GFR for <20 years old not available. Chronic Kidney Disease: <60 mL/min/1.73sq m Kidney failure: <15 mL/min/1.73sq m eGFR calculated using average adult body mass. Additional eGFR calculator available at: http://www.HyperQuest/multiple_crcl_2012.htm Glucose [Mass/Vol] 84 mg/dL 70 - 99 mg/dL [place] Interpretation and review of laboratory results Abnormal [place] Potassium [Moles/Vol] 5.1 mmol/L 3.7 - 5.3 mmol/L [place] Comment on above: SPECIMEN MODERATELY HEMOLYZED, RESULTS MAY BE ADVERSELY AFFECTED Protein [Mass/Vol] 5.0 g/dL Low 6.4 - 8.3 g/dL [place] Sodium [Moles/Vol] 141 mmol/L 135 - 144 mmol/L [place] Urea nitrogen [Mass/Vol] 10 mg/dL 6 - 20 mg/dL [place] HCG, QUANTITATIVE, on 07-07-2020 hCG Quant <1 <5 IU/L [place] Comment on above: Non-preg premeno <=5 [...] activity/Vol] 15 U/L 13 - 60 U/L [place] Vital Signs Date Time Vital Sign Value Performing Clinician Facility 07-17-2023 11:42-0500 Body weight 127.82 kg Qonf Work Phone: [facility] 07-17-2023 11:42-0500 Diastolic blood pressure 70 mm[Hg] Qonf Work Phone: [facility] 07-17-2023 11:42-0500 Systolic blood pressure 118 mm[Hg] Qonf Work Phone: [facility] 10-19-2021 01:12-0400 Diastolic blood pressure 62 mm[Hg] PHYSICIAN NO [facility] 10-19-2021 01:12-0400 Heart rate 89 /min PHYSICIAN NO [facility] 10-19-2021 01:12-0400 Respiratory rate 18 /min PHYSICIAN NO [facility] 10-19-2021 01:12-0400 SaO2% (BldA) [Mass fraction] 100 % PHYSICIAN NO [facility] 10-19-2021 01:12-0400 Systolic blood pressure 130 mm[Hg] PHYSICIAN NO [facility] 10-18-2021 23:10-0400 Body height 167.64 cm PHYSICIAN NO [facility] 10-18-2021 23:10-0400 Body mass index (BMI) [Percentile] Per age and sex 99.1 % PHYSICIAN [facility] 10-18-2021 23:10-0400 Body mass index (BMI) [Ratio] 48.2 kg/m2 PHYSICIAN NO [facility] 10-18-2021 23:10-0400 Body weight 135.5 kg PHYSICIAN NO [facility] 10-18-2021 23:08-0400 Body temperature 98.4 [degF] PHYSICIAN NO [facility] 07-07-2020 21:51-0500 BMI (Body Mass Index) 42.93 kg/m2 Lisa Land [facility], [place] 07-07-2020 21:51-0500 Body weight 120.66 kg [facility] , [place] 07-07-2020 21:51-0500 BP Diastolic 85 mm[Hg] [facility] , [place] 07-07-2020 21:51-0500 BP Systolic 136 mm[Hg] [facility] , [place] 07-07-2020 21:51-0500 Height 167.6 cm [facility] , [place] 07-07-2020 21:51-0500 Pulse (Heart Rate) 93 /min [facility], [place] 07-07-2020 21:51-0500 Pulse Oximetry 97 % [facility] , [place] 07-07-2020 21:51-0500 Respiratory Rate 18 /min Lisa Land [facility], [place] 07-07-2020 21:48-0500 Body Temperature 97.11 [degF] Lisa Land [facility], [place] Encounters Encounter Date Encounter Type Care Provider Facility Start: 09-09-2023 End: 09-09-2023 ambulatory CHUNG BENJA Not Available Start: 08-14-2023 End: 08-14-2023 ambulatory HALIMA CULLEN Not Available Start: 07-17-2023 End: 07-17-2023 ambulatory CHUNG BENJA Not Available Start: 07-17-2023 End: 07-17-2023 flow sheet Chung Clayo DO Work Phone: [facility] Comment on above: First trimester preg yesika; Vaginal bleeding in ; Threatened miscarriage; with uncertain viability, single or unspecified fetus Start: 07-16-2023 Chart abstracting Chung Clayo DO Work Phone: [facility] Start: 07-03-2023 End: 07-03-2023 ambulatory CHUNG BENJA Not Available Start: 07-03-2023 End: 07-03-2023 Office [...] Emergency department patient visit PHYSICIAN NO FAMILY Facility:[facility] Start: 10-18-2021 End: 10-19-2021 Emergency department patient visit PHYSICIAN NO FAMILY [facility] Start: 07-07-2020 End: 07-08-2020 Emergency department patient visit DAVID MILES [facility] Start: 07-07-2020 End: 07-08-2020 Emergency department patient visit Lisa Land Work Phone: [facility] Comment on above: BV (bacterial vagino [...] Work Phone: Start: 07-07-2020 Assay of lipase Taylor Stoner Work Phone: Start: 07-07-2020 Assay of [...] encounter procedure 08/14/2023 11:20 AM EDT Routine [facility] [address] [address] Halima Cullen PA [address] [place] [address] [facility] Start: 07-17-2023 End: 07-17-2024 US for US OB VIABLILITY Imaging Routine with uncertain viability, single or unspecified fetus Expected: 07/17/2023 (Approximate), Expires: 07/17/2024 [facility] Work Phone: Comment on above: Expected: 07/17/2023 (Approximate), Expires: 07/17/2024 Start: 07-17-2023 End: 07-17-2023 Patient encounter procedure [facility] Comment on above: First trimester preg yesika Start: 07-03-2023 End: 07-03-2024 ABO/Rh ABO/Rh Lab Routine Missed menses Expected: 07/03/2023 (Approximate), Expires: 07/03/2024 [facility] Comment on above: Expected: 07/03/2023 (Approximate), Expires: 07/03/2024 Start: 07-03-2023 End: 07-03-2024 Blood type and Indirect antibody screen panel - Blood Type and screen Lab Routine Missed menses Expected: 07/03/2023 (Approximate), Expires: 07/03/2024 [facility] Work Phone: Comment on above: Expected: 07/03/2023 (Approximate), Expires: 07/03/2024 Start: 07-03-2023 End: 07-03-2024 US Pelvis transvaginal US OB transvaginal Imaging Routine Missed menses Expected: 07/03/2023 (Approximate), Expires: 07/03/2024 [facility] Comment on above: Expected: 07/03/2023 (Approximate), Expires: 07/03/2024 Start: 02-01-2020 Influenza vaccination Flu vaccine (# 1) [place], [place] Start: 2018 Meningococcal (ACWY) vaccine (1 - 2-dose series) Meningococcal (ACWY) vaccine (1 - 2-dose series) [place] Start: 2018 Screening for Chlamy nancy trachomatis Chlamydia screen [place] Start: 2017 HIV screening HIV screen [place], [place] Start: 2013 HPV vaccine (1 - 2-d ose series) HPV vaccine (1 - 2-dose series) [place] Start: 2009 DTaP/Tdap/Td vaccine (1 - Tdap) DTaP/Tdap/Td vaccine (1 - Tdap) [place] Start: 2003 Hepatitis A vaccine (1 of 2 - 2-dose series) Hepatitis A vaccine (1 of 2 - 2-dose series) [place] Start: 2003 Measles,Mumps,Rubell a (MMR) vaccine (1 of 2 - Standard series) Measles,Mumps,Rubella (MMR) vaccine (1 of 2 - Standard series) [place] Start: 2003 Varicella vaccine (1 of 2 - 2-dose childhood series) Varicella vaccine (1 of 2 - 2-dose childhood series) [place] Start: 2002 Hepatitis B vaccine (1 of 3 - 3-dose primary series) Hepatitis B vaccine (1 of 3 - 3-dose primary series) [place] Start: 2002 Hepatitis C screening Hepatitis C sc reen [place] Bacteria identified in Urine by Culture Urine culture Microbiology Routine Missed menses Ordered: 07/03/2023 [facility] Comment on above: Ordered: 07/03/2023 End: 07-07-2020 C.trachomatis N.gonorrhoeae DNA C.trachomatis N.gonorrhoeae DNA Microbiology STAT One Time for 1 Occurrences starting 07/07/2020 until [facility]07[facility] on above: One Time for 1 Occur rences starting 07/07/2020 until 07/07/2020 C.trachomatis N.gonorrhoeae DNA C.trachomatis N.gonorrhoeae DNA Microbiology Stat Sunquest Label print 07/07/2020 11:20 PM [facility] [place] End: 07-08-2020 Calcium, Ionized Calcium, Ionized Lab STAT One Time for 1 Occurrences starting 07/08/2020 until 07/08/2020 [facility] [place] Comment on above: One Time for 1 Occur rences starting 07/08/2020 until 07/08/2020 CBC W Auto Different ial panel - Blood CBC and differential Lab Routine Missed menses Ordered: 07/03/2023 [facility] Comment on above: Ordered: 07/03/2023 End: 07-07-2020 Culture, Urine Culture, Urine Microbiology STAT One Time for 1 Occurrences starting 07/07/2020 until 07/07/2020 [facility] [place] Comment on above: One Time for 1 Occur rences starting 07/07/2020 until 07/07/2020 Culture, Urine Culture, Urine Microbiology Stat [employer] Label print 07/07/2020 10:[facility] Hemoglobin A1c measurement Hemoglobin A1c Lab Routine Missed menses Ordered: 07/03/2023 [facility] Comment on above: Ordered: 07/03/2023 Hepatitis B virus surface Ag [Presence] in Serum or Plasma by Immunoassay Hepatitis B surface antigen Lab Routine Missed menses Ordered: 07/03/2023 [facility] Comment on above: Ordered: 07/03/2023 Hepatitis C virus Ab [Presence] in Serum or Plasma by Immunoassay Hepatitis C antibody Lab Routine Missed menses Ordered: 07/03/2023 [facility] Comment on above: Ordered: 07/03/2023 HIV-1/HIV-2 antigen/antibody combination immunoassay HIV-1 and HIV-2 antibodies Lab Routine Missed menses Ordered: 07/03/2023 [facility] Comment on above: Ordered: 07/03/2023 Patient Education Common Breast Problems Pelvic Pain ED [facility] Work Phone: Patient referral [facility] Work Phone: Reagin Ab [Presence] in Serum by RPR RPR Lab Routine Missed menses Ordered: 07/03/2023 [facility] Comment on above: Ordered: 07/03/2023 Rubella antibody, IgG Rubella an tibody, IgG Lab Routine Missed menses Ordered: 07/03/2023 [facility] Comment on above: Ordered: 07/03/2023 End: 07-07-2020 US DUP ABD PEL RETRO SCROT LIMITED US DUP ABD PEL RETRO SCROT LIMITED Imaging STAT Once for 1 Occurrences starting 07/07/2020 until 07/07/2020 [place] Comment on above: Once for 1 Occurrenc es starting 07/07/2020 until 07/07/2020 US DUP ABD PEL RETRO SCROT LIMITED US DUP ABD PEL RETRO SCROT LIMITED Imaging STAT 07/08/2020 12:13 AM EST [place] Payers Date Payer Category Payer Unknown BCBS BCBS [id number] [id number] 2023-Present [phone] [address] [place] [address] [id number] 2023 Unknown [id number] 2021 Self-pay [id number] 2002 Unknown [id number] 2002 Unknown [id number] 2002 Unknown [id number] 2002 Unknown [id number] 2002 Unknown [id number] 2002 Unknown [id number] 2002 Unknown [id number] 1959 Medicaid [id number] 1957 Unknown [id number] Unknown [id number] Social History Date Type Detail Facility Start: 07-07-2020 End: 07-16-2023 Tobacco smoking status ORIS Never smoker [facility] Start: 07-07-2020 Tobacco use and exposure Never used [employer] Start: 2002 [facility] Assigned At [facility] [place] Exposure to SARS-CoV-2 (event) Not sure [facility] [place] Start: 10-19-2021 Tobacco smoking status [facility] Smoker (finding) [facility] Start: 2002 Sex Assigned At Female F [facility] Tobacco smoking status [facility] Tobacco smoking consumption unknown [facility] Start: 05-22-2023 [facility] Start: 07-16-2023 Gender identity Not on file [facility] Start: 07-16-2023 End: 07-17-2023 Alcohol intake Lifetime non-drinker (finding) [facility] Start: 07-16-2023 History of Social function [facility] History of Present illness Narrative 07-17-2023 Chung Yousif DO - 07/17/2023 11:10 AM EST Note Date & Type Note Facility 07-17-2023 History of Presen t illness Narrative Reason for Appointment: Patient ID: Teodoro Upton is a 23 y.o. female who presents for Routine Visit Patient presents today for Return OB appointment. Current Medications: has a current medication list which includes the following prescription(s): [id number] and promethazine. Medical History: Active Ambulatory Problems Diagnosis Date Noted No Active Ambulatory Problems Resolved Ambulatory Problems Diagnosis Date Noted No Resolved Ambulatory Problems Past Medical History: Diagnosis Date ADD (attention deficit disorder) Asthma (CMS/HCC) Family History Problem Relation Name Age of [...] History of Present illness Narrative 07-03-2023 Sarina KilgoreALEJANDRO - 07/03/2023 1:00 PM EST Note Date [...] raw or undercooked meat, stay away from [facility], do not change litter boxes, eat [...] Evaluation note No assessment information availa ble [facility] Work Phone: Evaluation note Note Date & Type Note Facility Evaluation note Diagnosis Missed menses Nausea and vomiting, unspecified vomiting type documented in this encounter [facility] Evaluation note Note Date & Type Note Facility Evaluation note Diagnosis First trimester state, incidental Vaginal bleeding in Threatened miscarriage Threatened , unspecified as to episode of care with uncertain viability, single or unspecified fetus documented in this encounter [facility] Hospital Discharge instructions Note Date & Type Note Facility Hospital Discharge instructions Additional Instructions Please follow up as we discussed so you can have your concerns further evaluated. [facility] Work Phone: Discharge Instructions * Instructions* Brenda Stoner DO - 07/08/2020 [facility] ED Clinic List Healthcare Providers Services Day of Week/ Hours [facility] [address] [facility] Pediatric Primary Care Adult Primary Care LIFE CLAIMS EXAMINER//Specialty Clinics Friday 8:00a 4:30p [address] Adult Medicine, Pediatrics, LIFE CLAIMS EXAMINER Friday 8:30a 4:30p [facility] Surgery [address] [place] [address] Friday 8:30a 11:00a [facility] [address] [facility] Adult Internal Medicine ([facility]) LIFE CLAIMS EXAMINER Clinic Pediatric Clinic Friday, Friday, , Friday 8:00a 4:30p Friday 1:00p 4:30p Friday, Friday, 8:00a 5:00p; Friday 8:00a 12:30p Friday 1p 4p Friday, Friday, , Friday 8:30a 4:15p Friday 12:30p 4:15p Health Department [address] Pediatric Primary Care Adult Primary Care OB/ Friday, Friday 8a 12p 8a 4:45p [facility] [address] [facility], [address] [facility] # Pre & Post Adoption Counseling Support / nutrition Care Reward Incentive Program [facility] Location Fri, , Fri, Fri 10:00a 4:30p Thur 10:00a 7:30p [facility] [place] Location Friday - Friday 10a 4:30p [facility] Clinics LIFE CLAIMS EXAMINER [address] [facility], [address] Adult Internal Medicine [address] [facility] Pediatrics [address] [facility], [address] Neuro / Headache [address] [facility] Friday 8:30a 5p [facility] [address] [facility] Fri, , , Fri 9:00a 4:30p Wed 1:00p 4:30p [facility] [address] [facility] [address] [facility] Friday 8:30a 5:00p [facility] Specialty Clinics [address] [facility] [address] Burn/Plastic, ENT, GI, Orthopedics, Surgical / Trauma, Urology, Vascular Friday 8:00 4:30p Call for an appointment [facility] [address] [facility] Adult Medicine, Eye Clinic, Dental Patient must be certified homeless Under age 18 not accepted Friday 8:00 4:30p [facility] [address] [facility] OB Friday, Friday, Friday, Friday 9a 5p 9a 6p Friday (OB only) [facility] [address] [facility] OB/ Friday 11a 7p , Fri, 9a 5p Friday 8a 4p 1st Friday 9a 1p Podiatry Clinic [address] [facility] Building [address] Friday 8:00 4:30 p [facility] [address] Free nurse visits [place] programs Counseling Class Call or walk in [facility] [address] [place] Various Clinics 8a 5:30p [facility] Family Medicine [facility] [address] [facility], [address] Family Practice Friday 8a 4:30p [facility] [address] [place] [address] [id number] [address] [place] [address] Friday 8a 4:30p Friday 8a 4:30p 8a 8p Outpatient Clinics [facility] [place] [facility] [address] [facility] Friday 9a 5p Diabetic Education Services Call for an appointment [facility] Heart Failure Clinic [address] [facility] Friday 8:30a 4p Dental Services [facility] [address] [facility] Must have source of income and must bring (2) recent check stubs to appointment By appointment only [facility] [address] Patient must be homeless, call for eligibility guidelines. Under age 18 NOT accepted Days and hours vary (Doors open at 8:30a day of week varies) Call for an appointment Miscellaneous Information [facility] Call for Help [phone] Call for an appointment H.E.L.P (Hospital Eligibility Link Program) toll free For financial assistance * Attachments The following attachments cannot be sent through Care Everywhere. * Bacterial Vaginosis (Guyanese) * UTI (Urinary Tract Infection): Female (Guyanese) * Vitamin D: General Info (Guyanese) documented in this encounter Assessments Diagnosis BV [...] 07/08/2020 07/18/2020 Vitamin D, Cholecalciferol, 50 MCG (1999) CAPS Take 2,000 Units by mouth daily 30 capsule 0 07/08/2020 metroNIDAZOLE (FLAGYL) 500 MG tablet Take 1 tablet by mouth 2 times daily for 10 days 20 tablet 0 07/08/2020 07/18/2020 INFORMATION SOURCE (unrecogn ized section and content) DATE CREATED AUTHOR 07/16/2020 [facility] DATE CREATED AUTHOR AUTHOR'S ORGANIZ ATION 09/07/2022 [facility] DATE CREATED AUTHOR AUTHOR'S ORGANIZ ATION 03/13/2023 [facility] DATE CREATED AUTHOR AUTHOR'S ORGANIZ ATION 09/10/2023 [facility] dical Specialists EPIC Care Teams (unrecognized sec [...] BE BASED ON THE PRIMARY CLINICAL RECORDS. [employer] provides no warranty or guarantee of the accuracy or completeness of information in this document.
== END 2023-10-01 08:37 | disposition home or self-care (01) ==
LOC: LAB 10-02 08:36
PROVIDERS: Visit Provider Obstetrics & Gynecology
DX: Z13.1 Encounter for screening for diabetes mellitus (principal)
CPT/HCPCS: 36415; 82950; 85025

== ENCOUNTER 2023-10-01 17:02 | Outpatient (OUT) | payer MEDICAID, SELFPAY ==
--- NOTE | 2023-10-01 17:04 | US_ITS ---
[address] [address] Patient Name: TEODORO HERNANDES MRN: [id number] date: 2000 Sex: F Assigned Patient Location: US Current Patient Location: Accession/Order Number: [id number] Exam Date: 10/01/2023 17:10 Report Date: 10/02/2023 07:30 At the request of: CHUNG MAGDALENO Procedure: US OB anatomy EXAMINATION: US OB anatomy, US OB cervical length HISTORY: screening, , for anatomic survey Z36.89 COMPARISON: No relevant comparison available. TECHNIQUE: Transabdominal sonographic examination was performed for obstetrical and evaluation. FINDINGS: Number: 1 Heart Rate: 147.5 bpm H.B. /min Amniotic Fluid Volume: Subjectively normal position: Breech presentation, variable lie Placental Location: Posterior, grade 0. The placental edge is 5.8 cm from the internal os Cervix Length: 3.6 cm , closed Normal anatomy: Lateral ventricles, cerebellum, posterior fossa, nose, lips, orbits, four-chamber heart, RVOT, LVOT, diaphragm, stomach, kidneys, abdominal cord insertion, bladder, umbilical arteries, three-vessel cord, spine, extremities BIOMETRY: BPD: 4.8 cm 20 weeks 4 days , 37% HC: 18.1 cm 20 weeks 4 days, 26% AC: 16.1 cm 21 weeks 1 days, 54% FL: 3.6 cm 21 weeks 4 days , 67% EFW:409.3 grams; 14 ounces, 66% FL/AC: 22.7 FL/BPD: 75.6 HC/AC: 1.1 GESTATIONAL AGE: Age by EDC: 20 weeks 6 days ROGER by EDC: 02/12/2024 Age by current US: 21 weeks 0 days ROGER by current US: 02/11/2024 US/US OB anatomy IMPRESSION: Normal anatomy scan Closed cervix measuring 3.6 cm in length *Reference: [facility] Practice Guideline for the performance of Obstetric Ultrasound Examinations, March 02, 2007. Electronically authenticated by: LISETTE JIMENEZ Date: 10/02/2023 07:30
--- NOTE | 2023-10-01 17:05 | US_ITS ---
[address] [address] Patient Name: TEODORO HERNANDES MRN: [id number] date: 2000 Sex: F Assigned Patient Location: US Current Patient Location: Accession/Order Number: [id number] Exam Date: 10/01/2023 17:10 Report Date: 10/02/2023 07:30 At the request of: CHUNG MAGDALENO Procedure: US OB cervical length EXAMINATION: US OB anatomy, US OB cervical length HISTORY: screening, , for anatomic survey Z36.89 COMPARISON: No relevant comparison available. TECHNIQUE: Transabdominal sonographic examination was performed for obstetrical and evaluation. FINDINGS: Number: 1 Heart Rate: 147.5 bpm H.B. /min Amniotic Fluid Volume: Subjectively normal position: Breech presentation, variable lie Placental Location: Posterior, grade 0. The placental edge is 5.8 cm from the internal os Cervix Length: 3.6 cm , closed Normal anatomy: Lateral ventricles, cerebellum, posterior fossa, nose, lips, orbits, four-chamber heart, RVOT, LVOT, diaphragm, stomach, kidneys, abdominal cord insertion, bladder, umbilical arteries, three-vessel cord, spine, extremities BIOMETRY: BPD: 4.8 cm 20 weeks 4 days , 37% HC: 18.1 cm 20 weeks 4 days, 26% AC: 16.1 cm 21 weeks 1 days, 54% FL: 3.6 cm 21 weeks 4 days , 67% EFW:409.3 grams; 14 ounces, 66% FL/AC: 22.7 FL/BPD: 75.6 HC/AC: 1.1 GESTATIONAL AGE: Age by EDC: 20 weeks 6 days ROGER by EDC: 02/12/2024 Age by current US: 21 weeks 0 days ROGER by current US: 02/11/2024 US/US OB cervical length IMPRESSION: Normal anatomy scan Closed cervix measuring 3.6 cm in length *Reference: [facility] Practice Guideline for the performance of Obstetric Ultrasound Examinations, March 02, 2007. Electronically authenticated by: LISETTE JIMENEZ Date: 10/02/2023 07:30
== END 2023-10-01 17:03 | disposition home or self-care (01) ==
LOC: US 17:02
PROVIDERS: Visit Provider Obstetrics & Gynecology
DX: Z36.89 Encounter for other specified antenatal screening (principal); Z13.1 Encounter for screening for diabetes mellitus
CPT/HCPCS: 36415; 76805; 76817; 82950; 85025

== ENCOUNTER 2023-10-07 20:09 | Outpatient (REF) | payer MEDICAID, SELFPAY | END 2023-10-07 20:10 | disposition home or self-care (01) | LOC: LAB 20:09 | PROVIDERS: Visit Provider Obstetrics & Gynecology | DX: Z01.419 Encounter for gynecological examination (general) (routine) without abnormal findings (principal) | CPT/HCPCS: 87624; G0145 ==

== ENCOUNTER 2023-11-20 18:41 | Observation (INO) | payer MEDICAID, SELFPAY ==
--- OUTSIDE RECORDS SUMMARY | 2023-11-20 18:46 | XMS_ITS ---
Patient Summarization (C-CDA 2.1 CCD) Created on: November 20, 2023 TEODORO UPTON : 2000 Sex: Female Demographics Address [address] [place] [address] Preferred Language en Marital Status Single Latter Day Affiliation Unknown Race Unknown Ethnic Group Not or Lati no Author Organization Sample organization Care Team Providers Care Artist'S Manager Name Role Phone Unavailable Primary Care Provider UnavailDAVID Ayers Attending Unavailable NO FAMILY, PHYSICIAN Primary Care Provider Unava ilable MD Anders Sesay Jr Emergency Provider PAY ., DR GREGORY Admitting Unavailable PAY ., DR GREGORY Consulting Unavailable REQUEST, DR IBRAHIM LISTED Primary Care Unavaila ble PAY ., DR GREGORY Attending Unavailable LISA SAPPLDEEP Consulting Unavailable PAY ., DR GREGORY Attending [...] Jr Admitting Unavailable Unavailable Primary Care Provider Unavailabl e NONE, XXXX Primary Care Physician Unavailab Fuentes Estrada Attending Unavailable Fuentes Florentino Admitting Unavailable Fuentes Florentino Attending Unavailable Fuentes Florentino Admitting Unavailable CHUNG YOUSIF Attending Unavailable HALIMA CULLEN Attending Unavailable CHUNG YOUSIF Attending Unavailable CHUNG YOUSIF Attending Unavailable HALIMA CULLEN Attending Unavailable Allergies Allergy Classification Reported Allergen(s) Allergy Type Date of Onset Reaction(s) Facility (1 source) Latex Propensity to adverse reactions to drug 07-07-2020 [facility], [place] Encounters Encounter Date Encounter Type Care Provider Facility Start: 11-04-2023 End: 11-04-2023 ambulatory HALIMA CULLEN Not Available Start: 10-26-2023 End: 10-26-2023 ambulatory Fuentes Florentino Facility:[facility] Start: 10-25-2023 End: 10-26-2023 OB Triage Fuentes Florentino [facility] Start: 10-07-2023 End: 10-07-2023 ambulatory CHUNG BENJA Not Available Start: 09-09-2023 End: 09-09-2023 ambulatory CHUNG BENJA Not Available Start: 08-14-2023 End: 08-14-2023 ambulatory HALIMA CULLEN Not Available Start: 07-17-2023 End: 07-17-2023 flow sheet Chung Benja DO Work Phone: [facility] Comment on above: First trimester preg yesika; Vaginal bleeding in ; Threatened miscarriage; with uncertain viability, single or unspecified fetus Start: 07-17-2023 End: 07-17-2023 ambulatory CHUNG BENJA Not Available Start: 07-16-2023 Chart abstracting Chung Benja DO Work Phone: [facility] Start: 07-03-2023 End: 07-03-2023 Office outpatient visit 5 minutes [facility] Benja Nurse [facility] Comment on above: GA: 8w0d Start: 07-03-2023 End: 07-03-2023 ambulatory CHUNG BENJA Not Available Start: 08-30-2022 End: 08-30-[address] COLT TAYLOR . Facility:[facility] Start: 06-28-2022 End: 06-28-[address] COLT TAYLOR . Facility:[facility] Start: 04-01-2022 End: 04-02-[address] DELON NAJERA . Facility:[facility] Start: 10-19-2021 End: 10-19-2021 Emergency department patient visit PHYSICIAN NO FAMILY Facility:[facility] Start: 10-18-2021 End: 10-19-2021 Emergency department patient visit PHYSICIAN NO FAMILY [facility] Start: 07-07-2020 End: 07-08-2020 Emergency department patient visit DAVID Almanza [facility] Start: 07-07-2020 End: 07-08-2020 Emergency department patient visit Lisa Land Work Phone: [facility] ED Comment on above: BV (bacterial vagino sis) (Primary Dx); Vaginal bleeding; Hypomagnesemia; Vitamin D deficiency; Acute cystitis with hematuria Medications Current Medications Medication Drug Class(es) Dates Sig (Normalized) Sig (Original) aspirin 81 mg chewable tablet (1 source) Platelet Aggregation Inhibitor, Nonsteroidal Anti-inflammatory Drug Start: 10-26-2023 aspirin 81 mg Chew Tab 81 mg = 1 tab(s), Chewed, Daily, Refills(s) 0 Start Date: 10/26/23 Status: Ordered cephalexin 500 mg oral capsule (2 sources) [...] 2021 1:51am metroNIDAZOLE 500 mg oral tablet (3 sources) Nitroimidazole Antimicrobial Start: 10-26-2023 take 1 tablet by mouth twice daily MetroNIDAZOLE 500 mg Tab 500 mg = 1 tab(s), Oral, BID, Refills(s) 0 Start Date: 10/26/23 Status: Ordered Start: 07-08-2020 End: 07-18-2020 take 1 tablet by mouth twice daily metroNIDAZOLE (FLAGYL) 500 MG tablet Take 1 tablet by mouth 2 times daily for 10 days 20 tablet 0 07/08/2020 07/18/2020 Active nitrofurantoin, macrocrystals 25 mg / nitrofurantoin, monohydrate 75 mg oral capsule (2 sources) Nitrofuran Antibacterial Start: 10-26-2023 take 1 capsule by mouth twice daily nitrofurantoin macrocrystals-monohydrate 100 mg Cap 100 mg = 1 cap(s), Oral, BID, Refills(s) 0 Start Date: 10/26/23 Status: Ordered Start: 06-27-2020 End: 10-19-2021 take 1 capsule by mouth every twelve hours at mealtime Nitrofurantoin Monohyd/M-Cryst (Macrobid) 100 mg capsule Discontinued 100 MG PO Q12H 10 5 June 27, 2020 4:52am October 19, 2021 1:02am administer with a meal/food; swallow whole; do not open, crush, dissolve , or chew ondansetron 4 mg oral tablet (1 source) [...] days 40 tablet 0 07/03/2023 07/13/2023 Active Complete with DHA (1 source) Start: 10-26-2023 Complete with DHA 1, Oral, Daily, Refill(s) 0 Start Date: 10/26/23 Status: Ordered Joroepqs-Siv-Sx-FA ( 1 + IRON PO) (4 sources) Dlsoheuu-Sas-Ao-FA ( 1 + IRON PO) Take by [...] nausea. 30 tablet 2 07/17/2023 10/15/2023 Active terconazole 4 mg/ml vaginal cream (1 source) Azole Antifungal Start: 10-26-2023 terconazole 0.4% Vag Crm 1 joselo, Vaginal, Refill(s) 0 Start Date: 10/26/23 Status: Ordered Completed/Discontinued Medications Medication Drug Class(es) Dates Sig [...] 07-08-2020 magnesium oxide (MAG-OX) tablet 400 mg Payers Date Payer Category Payer Unknown BCBS BCBS [id number] 2023-Present [phone] [address] [place] [address] [id number] 2023 Unknown [id number] 2021 Self-pay [id number] 2000 Unknown [id number] 2002 Unknown [id number] 2002 Unknown [id number] 2002 Unknown [id number] 2002 Unknown [id number] [id number] 2002 Unknown [id number] [id number] 2002 Unknown [id number] [id number] 2002 Unknown [id number] [id number] 2002 Unknown [id number] [id number] 2002 Unknown [id number] [id number] 2002 Unknown [id number] 1957 Medicaid [id number] 1957 Unknown [id number] Unknown [id number] Plan of Treatment Date Care Activity Detail Author Start: 08-14-2023 End: 08-14-2023 Patient encounter procedure 08/14/2023 11:20 AM EDT Routine [facility] [address] [place] [address] Halima Cullen PA [address] [place] [address] [facility] Start: 07-17-2023 End: 07-17-2024 US for US OB VIABLILITY Imaging Routine with uncertain viability, single or unspecified fetus Expected: 07/17/2023 (Approximate), Expires: 07/17/2024 [facility] Work Phone: Comment on above: Expected: 07/17/2023 (Approximate), Expires: 07/17/2024 Start: 07-17-2023 End: 07-17-2023 Patient encounter procedure [facility] Comment on above: First trimester preg yesika Start: 07-03-2023 End: 07-03-2024 ABO/Rh ABO/Rh Lab Routine Missed menses Expected: 07/03/2023 (Approximate), Expires: 07/03/2024 [facility] Comment on above: Expected: 07/03/2023 (Approximate), Expires: 07/03/2024 Start: 07-03-2023 End: 07-03-2024 Blood type and Indirect antibody screen panel - Blood Type and screen Lab Routine Missed menses Expected: 07/03/2023 (Approximate), Expires: 07/03/2024 [facility] Work Phone: Comment on above: Expected: 07/03/2023 (Approximate), Expires: 07/03/2024 Start: 07-03-2023 End: 07-03-2024 US Pelvis transvaginal US OB transvaginal Imaging Routine Missed menses Expected: 07/03/2023 (Approximate), Expires: 07/03/2024 [facility] Comment on above: Expected: 07/03/2023 (Approximate), Expires: 07/03/2024 Start: 02-01-2020 Influenza vaccination Flu vaccine (# 1) [place], [place] Start: 2018 Meningococcal (ACWY) vaccine (1 - 2-dose series) Meningococcal (ACWY) vaccine (1 - 2-dose series) [place], [place] Start: 2018 Screening for Chlamy nancy trachomatis Chlamydia screen [place], [place] Start: 2017 HIV screening HIV screen [place], [place] Start: 2013 HPV vaccine (1 - 2-d ose series) HPV vaccine (1 - 2-dose series) [place] Start: 2009 DTaP/Tdap/Td vaccine (1 - Tdap) DTaP/Tdap/Td vaccine (1 - Tdap) [place] Start: 2003 Hepatitis A vaccine (1 of 2 - 2-dose series) Hepatitis A vaccine (1 of 2 - 2-dose series) [place] Start: 2003 Measles,Mumps,Rubell a (MMR) vaccine (1 of 2 - Standard series) Measles,Mumps,Rubella (MMR) vaccine (1 of 2 - Standard series) [place] Start: 2003 Varicella vaccine (1 of 2 - 2-dose childhood series) Varicella vaccine (1 of 2 - 2-dose childhood series) [place] Start: 2002 Hepatitis B vaccine (1 of 3 - 3-dose primary series) Hepatitis B vaccine (1 of 3 - 3-dose primary series) [place] Start: 2002 Hepatitis C screening Hepatitis C sc reen [place] Bacteria identified in Urine by Culture Urine culture Microbiology Routine Missed menses Ordered: 07/03/2023 [facility] Comment on above: Ordered: 07/03/2023 End: 07-07-2020 C.trachomatis N.gonorrhoeae DNA C.trachomatis N.gonorrhoeae DNA Microbiology STAT One Time for 1 Occurrences starting 07/07/2020 until 07/07/2020 [place] Comment on above: One Time for 1 Occur rences starting 07/07/2020 until 07/07/2020 C.trachomatis N.gonorrhoeae DNA C.trachomatis N.gonorrhoeae DNA Microbiology Stat Sunquest Label print 07/07/2020 11:20 PM [place], [place] End: 07-08-2020 Calcium, Ionized Calcium, Ionized Lab STAT One Time for 1 Occurrences starting 07/08/2020 until 07/08/2020 [place] Comment on above: One Time for 1 Occur rences starting 07/08/2020 until 07/08/2020 CBC W Auto Different ial panel - Blood CBC and differential Lab Routine Missed menses Ordered: 07/03/2023 [facility] Comment on above: Ordered: 07/03/2023 End: 07-07-2020 Culture, Urine Culture, Urine Microbiology STAT One Time for 1 Occurrences starting 07/07/2020 until 07/07/2020 [place] Comment on above: One Time for 1 Occur rences starting 07/07/2020 until 07/07/2020 Culture, Urine Culture, Urine Microbiology Stat [employer] Label print 07/07/2020 10:56 PM [place] Hemoglobin A1c measurement Hemoglobin A1c Lab Routine Missed menses Ordered: 07/03/2023 [facility] Comment on above: Ordered: 07/03/2023 Hepatitis B virus surface Ag [Presence] in Serum or Plasma by Immunoassay Hepatitis B surface antigen Lab Routine Missed menses Ordered: 07/03/2023 [facility] Comment on above: Ordered: 07/03/2023 Hepatitis C virus Ab [Presence] in Serum or Plasma by Immunoassay Hepatitis C antibody Lab Routine Missed menses Ordered: 07/03/2023 [facility] Comment on above: Ordered: 07/03/2023 HIV-1/HIV-2 antigen/antibody combination immunoassay HIV-1 and HIV-2 antibodies Lab Routine Missed menses Ordered: 07/03/2023 [facility] Comment on above: Ordered: 07/03/2023 Patient Education Common Breast Problems Pelvic Pain ED [facility] Work Phone: Patient referral [facility] Work Phone: Reagin Ab [Presence] in Serum by RPR RPR Lab Routine Missed menses Ordered: 07/03/2023 [facility] Comment on above: Ordered: 07/03/2023 Rubella antibody, IgG Rubella an tibody, IgG Lab Routine Missed menses Ordered: 07/03/2023 [facility] Comment on above: Ordered: 07/03/2023 End: 07-07-2020 US DUP ABD PEL RETRO SCROT LIMITED US DUP ABD PEL RETRO SCROT LIMITED Imaging STAT Once for 1 Occurrences starting 07/07/2020 until [facility]07[facility]2020 [facility] Once for 1 Occurrenc es starting 07/07/2020 until 07/07/2020 US DUP ABD PEL RETRO SCROT LIMITED US DUP ABD PEL RETRO SCROT LIMITED Imaging STAT 07/08/2020 12:13 AM EST [facility] Problems Active Problems Problem Classification Problem Date [...] OTH NONSPECIFIC SKIN ERUPTION] Onset: 07-01-2022 Episodic Substance-related disorders (1 source) Smoker 10-26-2023 Chronic Comment on above: Added secondary to d ocumentation in Social History. Superficial injury; contusion (1 source) Contusion of right great toe without damage to nail, initial encounter; Translations: [CONTUS RT GRT TOE W/O DMG NAIL INIT] Onset: 09-03-2022 Episodic Unclassified (1 source) Onset: 10-26-2023 10-26-2023 Urinary tract infections (2 sources) Acute cystitis; [...] GEN ORG MENST CYCL] Onset: 04-01-2022 Episodic Procedures Date Procedure Procedure Detail Performing Clinician [...] NO FAMILY Start: 07-08-2020 Calcium ionized Angela na R Emery Work Phone: Start: 07-08-2020 Us transvaginal Taylor [...] chorion ic quantitative Brenda Stoner Work Phone: Results Test Name Value Interpretation Reference Range Facility Nursing Assessmenton 024 Nursing Assessment [id number] 2#1.00TIFF [facility] C Urineon 10-28-2023 Bacteria identified Cx Nom (U) Microbiology PROCEDURE: Urine Culture [R1] SOURCE: U CleanCatch BODY SITE: COLLECTED DATE/TIME: 10/25/2023 23:53 EDT RECEIVED DATE/TIME: 10/26/2023 00:59 EDT START DATE/TIME: 10/26/2023 00:59 EDT FREE TEXT SOURCE: Mishel CHAVEZ, Fuentes Florentino MD, Fuentes Weaver FINAL REPORTS Final Report [] Verified Date/Time: 10/28/2023 07:15 EDT <10,000 cfu/ml Mixed skin contaminants Performing Locations R1: This test was performed at: [facility], [address] [place] [address], [id number] , , [facility] Comment on above: Performed By: #### 2 [id number] #### [facility] [address] [place] [address] Consent for Treatmenton 10-01 Consent for Treatment [id number] #1.00TIFF Normal [facility] Discharge Instructionson Discharge Instructions [id number] 7#1.00TIFF Normal [facility] Inpatient Clinical Summaryon 10-26-2023 Inpatient Clinical Summary [address] [address] Clinical Summary Person Information Name: TEODORO UPTON/Abhinav Age: 23 Years : 2000 Sex: Female PCP: NONE, XXXX Marital Status: Single Phone: [phone] Race: or Ethnicity: Non- or Language: Romanian Visit Id: Visit Reason: 24 WEEKS BLEEDING Speciality: Acuity: Obs Enc Type: OB Triage Med Service: Obstetrics Arrival: 10/25/2023 23:36:04 Discharge: 10/26/2023 03:30:56 Dispo Type: Home (Routine DC) Address: [facility]/[address] [place] [address] [id number] Provider Notes: Diagnosis: Problems Active (10/26/2023) Smoker Smoking Status: Current Every Day Smoker Functional Status: Sensory Deficits: History of Falls: Mobility Assistance Prior to Admission: ADLs: Current Level of Assistance for Self-Care/Mobility: Cognitive Status: Allergies No Known Allergies Laboratory or Other Results This Visit (last charted value for your 10/25/2023 visit) Urinalysis 10/25/2023 11:53 PM UA Hyal Cast: 0-3 graded/LPF UA Bacteria: Trace /HPF UA Bili: Negative mg/dL UA Color: Yellow UA Glucose: Negative mg/dL UA Ketones: Negative mg/dL UA Leuk Est: 500 Gerald/uL Gerald/uL UA Mucous: Trace graded/LPF UA Nitrite: Negative mg/dL UA Protein: Trace mg/dL UA RBC: 4-20 graded/HPF UA Squam Epithelial: 5-8 graded/HPF UA Urobilinogen: Negative mg/dL UA WBC: 16-25 graded/HPF UA Spec Desc: Clean Catch UA Blood: Negative mg/dL UA Clarity: Turbid UA pH: 6.0 -- Normal range between ( 5.0 and 9.0 ) UA Spec Grav: 1.030 -- Normal range between ( 1.005 and 1.030 ) Measurements: Height: 167.6 cm Weight: 127.3 kg Blood Pressure: 122 mmHg / 68 mmHg BMI: 45.32 kg/m2 Procedures No Procedures Documented Immunizations No Immunizations Documented This Visit Final Med List: aspirin (aspirin 81 mg Chew Tab) 1 Tablets Chewed every day. metronidazole (MetroNIDAZOLE 500 mg Tab) 1 Tablets By Mouth 2 times a day. multivitamin, ( Complete with DHA) 1 By Mouth every day. nitrofurantoin (nitrofurantoin macrocrystals-monohy drate 100 mg Cap) 1 Capsules By Mouth 2 times a day. terconazole topical (terconazole 0.4% Vag Crm) 1 Application Vaginal. Care Team Members: Attending Physician: Fuentes Florentino MD Consulting Physician: Referring Physician: Follow up: With: Address: When: [facility], [address] [place] [address] [place] [address] [facility] (1) In 9 days 11/04/2023 Patient Education Information: and Urinary Tract Infection; Vaginal Bleeding During , Second Trimester; Back Pain in Normal [facility] Inpatient Patient Summaryon 10-26-2023 Inpatient Patient Summary [address] [address] Patient Discharge Instructions PERSON INFORMATION Name: TEODORO UPTON Date of : 2000 Current Date: 10/26/2023 03:32:18 PHYSICIANS Admitting Physician: Fuentes Florentino MD Primary Care Physician: NONE, XXXX PCP Phone Number: Comment: Discharge Diagnosis: Condition at Discharge: TEODORO UPTON has been given the following list of follow-up instructions, prescriptions, and patient education materials: PATIENT FOLLOW-UP INFORMATION Diet: Activity: Wound Care Instructions: Remove Your Dressing IN: Days Call Your Doctor For: IF UNABLE TO CONTACT YOUR PHYSICIAN AND YOU FEEL IT IS AN EMERGENCY, GO TO THE NEAREST EMERGENCY ROOM OR CALL 911 Home Treatment: Devices/Equipment: Special Services: Additional Instructions: Physician to provide the following pending test results: Follow up: With: Address: When: Chung YOUSIF [facility], [address] [place] [address] , [place] [address] Business (1) In 9 days 11/04/2023 In the event that this physician does not participate in your insurance network, please consult with your insurance company to find a nearby participating provider. Comment: GRETA Zimmerman TYIESHA MARIE, have received the attached patient education materials/instructio ns and have verbalized understanding. Patient Signature Date Clinican/Nurse Signature Date MEDICATION LIST Medications to Continue with No Changes Other Medications aspirin (aspirin 81 mg Chew Tab) 1 Tablets Chewed every day. Last Dose: Next Dose: metronidazole (MetroNIDAZOLE 500 mg Tab) 1 Tablets By Mouth 2 times a day. Last Dose: Next Dose: multivitamin, ( Complete with DHA) 1 By Mouth every day. Last Dose: Next Dose: nitrofurantoin (nitrofurantoin macrocrystals-monohy drate 100 mg Cap) 1 Capsules By Mouth 2 times a day. Last Dose: Next Dose: terconazole topical (terconazole 0.4% Vag Crm) 1 Application Vaginal. Last Dose: Next Dose: Pharmacy Information: PATIENT EDUCATION INFORMATION Instructions: and Urinary Tract Infection A urinary tract infection (UTI) is an infection of any part of the urinary tract. This includes the kidneys, the tubes that connect the kidneys to the bladder (ureters), the bladder, and the tube that carries urine out of the body (urethra). These organs make, store, and get rid of urine in the body. Your health care provider may use other names to describe the infection. An upper UTI affects the ureters and kidneys (pyelonephritis). A lower UTI affects the bladder (cystitis) and urethra (urethritis). Most UTIs are caused by bacteria in the genital area, around the entrance to the urinary tract. These bacteria grow and cause irritation and inflammation of the urinary tract. You are more likely to develop a UTI during because: ? The physical and hormonal changes that your body goes through make it easier for bacteria to get into your urinary tract. ? Your growing baby puts pressure on your bladder and can affect urine flow. women with diabetes are at an increased risk for developing a UTI. It is important to recognize and treat UTIs in because they can cause serious complications for both you and your baby. How does this affect me? Symptoms of a UTI include: ? Needing to urinate right away (urgently) and often, even if urinating a small amount. ? Pain, burning, or having a hard time passing urine. ? Blood in the urine. ? Unusual, cloudy, and bad-smelling urine. ? Pain in the abdomen or lower back. ? Vaginal discharge. You may also have: ? Vomiting or a decreased appetite. ? Confusion. ? Irritability or tiredness. ? A fever. ? Diarrhea. ? A low level of red blood cells (anemia). ? The development of high blood pressure during (preeclampsia). How does this affect my baby? An untreated UTI during could lead to a kidney infection or an infection throughout the mother's body (systemic infection). This can cause health problems and affect the baby. Possible complications of an untreated UTI include: ? Your baby being born before 37 weeks of (premature). ? Your baby being born with a low weight. ? Your baby having a higher risk of having his or her skin or the white parts of the eyes turn yellow (jaundice). What can I do to lower my risk? To prevent a UTI: ? Do not hold urine for long periods of time. Empty your bladder as soon as you feel the urge. ? Always wi (more content not included)... Normal [facility] Insurance Correspondenceon 0 10-26-2023 Insurance Correspondence [id number] 8#1.00TIFF Normal [facility] UA with Cult Rflxon 10-26-19 24 Bacteria Auto Ql (U) Trace Normal Trace Fish [facility] Comment on above: Performed By: #### 4 [id number] #### [facility] [address] [place] [address] Bilirubin Ql (U) Negative Normal Negative [facility] Comment on above: Performed By: #### 4 [id number] #### [facility] [address] [place] [address] Clarity (U) Turbid Abnormal Clear [facility] Comment on above: Performed By: #### 4 [id number] #### [facility] [address] [place] [address] Color (U) Yellow Normal Yellow [facility] Comment on above: Result Comment: Micr oscopic readings are only performed on those samples that meet specific criteria set forth by [facility]. Performed By: #### 4 [id number] #### [facility] [address] [place] [address] Epithelial cells.squamous Auto (Urine sed) [#/Area] 5-8 Abnormal 0-2 [facility] Comment on above: Performed By: #### 4 [id number] #### [facility] [address] [place] [address] Glucose Ql (U) Negative Normal Negative [facility] Comment on above: Performed By: #### 4 [id number] #### [facility] [address] [place] [address] Hemoglobin Auto test strip (U) [Mass/Vol] Negative Normal Negative [facility] Comment on above: Performed By: #### 4 [id number] #### [facility] [address] [place] [address] Hyaline casts LM Ql (Urine sed) 0-3 Normal 0-3 [facility] Comment on above: Performed By: #### 4 [id number] #### [facility] [address] [place] [address] Ketones Auto test strip Ql (U) Negative Normal Negative [facility] Comment on above: Performed By: #### 4 [id number] #### [facility] [address] [place] [address] Leukocyte esterase Auto test strip Ql (U) 500 Gerlad/uL Abnormal Negative [facility] Comment on above: Performed By: #### 4 [id number] #### [facility] [address] [place] [address] Mucus Auto Ql (U) Trace Normal Negative [facility] Comment on above: Performed By: #### 4 [id number] #### [facility] [address] [place] [address] Nitrite Auto test strip Ql (U) Negative Normal Negative [facility] Comment on above: Performed By: #### 4 [id number] #### [facility] [address] [place] [address] pH (U) 6.0 [pH] Invalid Interpretation Code 5.0-9.0 [facility] Comment on above: Performed By: #### 4 [id number] #### [facility] [address] [place] [address] Protein Ql (U) Trace Abnormal Negative [facility] Comment on above: Performed By: #### 4 [id number] #### [facility] [address] [place] [address] RBC Ql (U) 4-20 Abnormal 0-3 [facility] Comment on above: Performed By: #### 4 [id number] #### [facility] [address] [place] [address] Specific gravity (U) [Rel density] 1.030 Invalid Interpretation Code 1.005-1.030 [facility] Comment on above: Performed By: #### 4 [id number] #### [facility] [address] [place] [address] Type of Urine collection method Clean Catch Normal [facility] Comment on above: Performed By: #### 4 [id number] #### [facility] [address] [place] [address] Urobilinogen (U) [Mass/Vol] Negative Normal Negative [facility] Comment on above: Performed By: #### 4 [id number] #### [facility] [address] [place] [address] WBC Auto (Urine sed) [#/Area] 16-25 Abnormal 0-5 [facility] Comment on above: Performed By: #### 4 [id number] #### [facility] [address] [place] [address] URINALYSISOrdered By: SYSTEM SYSTEM on 10-25-2023 Bacteria Auto Ql (U) Trace /HPF Normal Trace/HPF [facility] UA Auto SS Bilirubin Ql (U) Negative Normal Negativemg/ d L [facility] UA Auto SS Clarity (U) Turbid *ABN* (10/25/23 11:53 PM) Invalid Interpretation Code Clear [facility] UA Auto SS Color (U) Yellow 1 (10/25/23 11:53 PM) Normal Yellow [facility] UA Auto SS Comment on above: Interpretive Data: M icroscopic readings are only performed on those samples that meet specific criteria set forth by [facility]. Epithelial cells.squamous Auto (Urine sed) [#/Area] 5-8 graded/HPF Invalid Interpretation Code 0-2graded/HP F [facility] UA Auto SS Glucose Ql (U) Negative Normal Negativemg/d L [facility] UA Auto SS Hemoglobin Auto test strip (U) [Mass/Vol] Negative Normal Negativemg/d L [facility] UA Auto SS Hyaline casts LM Ql (Urine sed) 0-3 graded/LPF Normal 0-3graded/LP F [facility] UA Auto SS Ketones Auto test strip Ql (U) Negative Normal Negativemg/d L [facility] UA Auto SS Leukocyte esterase Auto test strip Ql (U) 500 Gerald/uL Gerald/uL Invalid Interpretation Code NegativeLeu/ uL [facility] UA Auto SS Mucus Auto Ql (U) Trace graded/LPF Normal Negati vegrad ed/LPF [facility] UA Auto SS Nitrite Auto test strip Ql (U) Negative Normal Negativemg/d L [facility] UA Auto SS pH (U) 6.0 *NA* (10/25/23 11:53 PM) Invalid Interpretation Code 5.0 - 9.0 [facility] UA Auto SS Protein Ql (U) Trace mg/dL Invalid Interpretation Code Negativemg/d L [facility] UA Auto SS RBC Ql (U) 4-20 graded/HPF Invalid Interpretation Code 0-3graded/HP F [facility] UA Auto SS Specific gravity (U) [Rel density] 1.030 *NA* (10/25/23 11:53 PM) Invalid Interpretation Code 1.005 - 1.030 [facility] UA Auto SS Urobilinogen (U) [Mass/Vol] Negative Normal Negativemg/d L [facility] UA Auto SS WBC Auto (Urine sed) [#/Area] 16-25 graded/HPF Invalid Interpretation Code 0-5graded/HP F [facility] UA Auto SS URINALYSISOrdered By: Elijah Hernandez on 10-25-2023 UA Spec Desc Clean Catch (10/25/23 11:53 PM) Normal [facility] UA Auto SS Urinalysis macro (dipstick) panel (U)on 07-17-2023 Bilirubin, UA Negative Negative - 4(70) +++ mg/dL [facility] Blood, UA Negative Negative - 50 William/mcL [facility] Clarity, UA Clear [facility] Color, UA Yellow [facility] Glucose, UA Negative Negative - 2000(110) ++++ mg/dL [facility] Interpretation and review of laboratory results Abnormal [facility] Ketones, UA Negative Negative - 160(16) ++++ mg/dL [facility] Leukocytes, UA Positive Negative - 500+++ Gerald/mcL [facility] Nitrite, UA Negative Negative - Positive [facility] pH, UA 7.0 5 - 9 [facility] Protein, UA Negative Negative - 2000(20) ++++ mg/dL [facility] Spec Grav, UA 1.020 1 - 1.03 [facility] Urobilinogen, UA 0.2 0.2 - 12 mg/dL [facility] HCG ( test) Ql (U)o n 07-03-2023 Interpretation and review of laboratory results Abnormal [facility] Preg Test, Ur Negative [facility] No Panel Informationon 07-03 [facility] Urinalysis macro (dipstick) panel (U)on 07-03-2023 Bilirubin, UA Negative Negative - 4(70) +++ mg/dL [facility] Blood, UA Negative Negative - 50 William/mcL [facility] Clarity, UA Clear [facility] Color, UA Yellow [facility] Glucose, UA Negative Negative - 1999(110) ++++ mg/dL [facility] Interpretation and review of laboratory results Normal [facility] Ketones, UA Negative Negative - 160(16) ++++ mg/dL [facility] Leukocytes, UA Negative Negative - 500+++ Gerald/mcL [facility] Nitrite, UA Negative Negative - Positive [facility] pH, UA 5.5 5 - 9 [facility] Protein, UA Negative Negative - 1999(20) ++++ mg/dL [facility] Spec Grav, UA 1.010 1 - 1.03 [facility] Urobilinogen, UA 1.0 0.2 - 12 mg/dL [facility] XR FOOT RT MIN 3 VIEWSon [...] Date: 2022-08-30 14:42 Normal [facility] CBC AUTO DIFFon 06-28-2022 BASO # 0.0 103/ul Normal 0.0-0.1 [facility] Comment on above: Performed By: #### C BC #### [facility] [address] [place] [address] Dr. Jerald Poon Basophils/100 WBC (Bld) 0.3 % Normal 0.2-2.0 [facility] Comment on above: Performed By: #### C BC #### [facility] [address] [place] [address] Dr. Jerald Poon EO # 0.1 103/ul Normal 0.0-0.7 [facility] Comment on above: Performed By: #### C BC #### [facility] [address] [place] [address] Dr. Jerald Poon Eosinophils/100 WBC (Bld) 1.1 % Normal 0.9-7.0 [facility] Comment on above: Performed By: #### C BC #### [facility] [address] [place] [address] Dr. Jerald Poon Erythrocyte distribution width (RBC) [Ratio] 14.5 % Normal 11.0-15.0 [facility] Comment on above: Performed By: #### C BC #### [facility] [address] [place] [address] Dr. Jerald Poon Hematocrit (Bld) [Volume fraction] 36.7 % Normal 36.0-48.0 [facility] Comment on above: Performed By: #### C BC #### [facility] [address] [place] [address] Dr. Jerald Poon Hemoglobin (Bld) [Mass/Vol] 13.0 g/dL Normal 12.0-16.0 [facility] Comment on above: Performed By: #### C BC #### [facility] [address] [place] [address] Dr. Jerald Poon IG # 0.04 10e3/ul Critically high 0.00-0.03 [facility] Comment on above: Performed By: #### C BC #### [facility] [address] [place] [address] Dr. Jerald Poon IG % 0.3 % Normal 0.0-0.5 [facility] Comment on above: Performed By: #### C BC #### [facility] [address] [place] [address] Dr. Jerald Poon LYMPH # 3.0 103/ul Normal 1.2-3.8 [facility] Comment on above: Performed By: #### C BC #### [facility] [address] [place] [address] Dr. Jerald Poon Lymphocytes/100 WBC (Bld) 26.2 % Normal 20.5-60.0 [facility] Comment on above: Performed By: #### C BC #### [facility] [address] [place] [address] Dr. Jerald Poon MANUAL DIFF REQ NO Normal [facility] Comment on above: Performed By: #### C BC #### [facility] [address] [place] [address] Dr. Jerald Poon MCH (RBC) [Entitic mass] 27.1 pg Normal 26.7-34.0 [facility] Comment on above: Performed By: #### C BC #### [facility] [address] [place] [address] Dr. Jerald Poon MCHC (RBC) [Mass/Vol] 35.4 g/dL Critically high 29.9-35.2 [facility] Comment on above: Performed By: #### C BC #### [facility] [address] [place] [address] Dr. Jerald Poon MCV (RBC) [Entitic vol] 76.6 fL Critically low 81.0-99.0 [facility] Comment on above: Performed By: #### C BC #### [facility] [address] [place] [address] Dr. Jerald Poon MONO # 0.8 103/ul Normal 0.3-0.8 [facility] Comment on above: Performed By: #### C BC #### [facility] [address] [address] [address] Jerald Poon Monocytes/100 WBC (Bld) 7.0 % Normal 1.7-12.0 [facility] Comment on above: Performed By: #### C BC #### [facility] [address] [place] [address] Dr. Jerald Poon NEUT # 7.5 103/ul Critically high 1.4-6.5 [facility] Comment on above: Performed By: #### C BC #### [facility] [address] [place] [address] Dr. Jerald Poon Neutrophils/100 WBC (Bld) 65.1 % Normal 43.0-75.0 [facility] Comment on above: Performed By: #### C BC #### [facility] [address] [place] [address] Dr. Jerald Poon Platelet mean volume (Bld) [Entitic vol] 10.0 fL Normal 9.5-13.5 [facility] Comment on above: Performed By: #### C BC #### [facility] [address] [place] [address] Dr. Jerald Poon PLT 387 103/ul Normal 150-450 [facility] Comment on above: Performed By: #### C BC #### [facility] [address] [place] [address] Dr. Jerald Poon RBC 4.79 106/ul Normal 4.20-5.40 [facility] Comment on above: Performed By: #### C BC #### [facility] [address] [place] [address] Dr. Jerald Poon WBC 11.6 103/ul Critically high 4.0-11.0 [facility] Comment on above: Performed By: #### C BC #### [facility] [address] [place] [address] Dr. Jerald Poon CULTURE URINEon 06-28-2022 CULTURE URINE Culture Observations: LIGHT GROWTH OF MIXED GENITAL ZACARIAS. NO POTENTIAL PATHOGENS SEEN. Normal [facility] Comment on above: Performed By: #### U RCX #### [facility] [address] [place] [address] Dr. Jeradl Poon ER URINE PROFILEon 3 Bilirubin Ql (U) Negative Normal NEGATIVE [facility] Comment on above: Performed By: #### U MICRO, ERUR #### [facility] [address] [place] [address] Dr. Jerald Poon Clarity (U) CLEAR Normal CLEAR [facility] Comment on above: Performed By: #### U MICRO, ERUR #### [facility] [address] [place] [address] Dr. Jerald Poon Color (U) YELLOW Normal YELLOW [facility] Comment on above: Performed By: #### U MICRO, ERUR #### [facility] [address] [place] [address] Dr. Jerald Poon ERUAHD A micrscopic examination will be performed if indicated. Normal [facility] Comment on above: Performed By: #### U MICRO, ERUR #### [facility] [address] [place] [address] Dr. Jerald Poon Glucose Ql (U) Negative Normal NEGATIVE [facility] Comment on above: Performed By: #### U MICRO, ERUR #### [facility] [address] [place] [address] Dr. Jerald Poon Hemoglobin Ql (U) Negative Normal NEGATIVE [facility] Comment on above: Performed By: #### U MICRO, ERUR #### [facility] [address] [place] [address] Dr. Jerald Poon Ketones Ql (U) 40 mg/dl Abnormal NEGATIVE [facility] Comment on above: Performed By: #### U MICRO, ERUR #### [facility] [address] [place] [address] Dr. Jerald Poon LEUKOCYTES TRACE Abnormal NEGATIVE [facility] Comment on above: Performed By: #### U MICRO, ERUR #### [facility] [address] [address] [address] Jerald Poon Nitrite Ql (U) Negative Normal NEGATIVE [facility] Comment on above: Performed By: #### U MICRO, ERUR #### [facility] [address] [place] [address] Dr. Jerald Poon pH (U) 6.0 [pH] Normal 5-9 [facility] Comment on above: Performed By: #### U MICRO, ERUR #### [facility] [address] [place] [address] Dr. Jerald Poon SPEC GRAVITY >=1.030 Abnormal 1.005-<=1.02 5 [facility] Comment on above: Performed By: #### U MICRO, ERUR #### [facility] [address] [place] [address] Dr. Jerald Poon UA PROTEIN Negative Normal NEGATIVE/ TRACE [facility] Comment on above: Performed By: #### U MICRO, ERUR #### [facility] [address] [place] [address] Dr. Jerald Poon UR MICRO IND INDICATED Normal [facility] Comment on above: Performed By: #### U MICRO, ERUR #### [facility] [address] [place] [address] Dr. Jerald Poon Urobilinogen Qn (U) 0.2 {Lyly'U}/dL Normal 0.2 - 1. 0 [facility] Comment on above: Performed By: #### U MICRO, ERUR #### [facility] [address] [place] [address] Dr. Jerald Poon PREG QUANT HCGon 06-28-2022 HCG QUANT <1 Normal [facility] Comment on above: Performed By: #### P REGQNT #### [facility] [address] [place] [address] Dr. Jerald Poon HCG RANGE SEE BELOW Normal [facility] Comment on above: Result Comment: 5-50 0.2-1 WEEK 50-500 1-2 WEEKS 100-5,000 2-3 WEEKS 500-10,000 3-4 WEEKS 1,000-50,000 4-5 WEEKS 10,000-100,000 5-6 WEEKS 15,000-200,000 6-8 WEEKS 10,000-100,000 2-3 MONTHS Performed By: #### P REGQNT #### [facility] [address] [place] [address] Dr. Jerald Poon PROF CHEM 8 (BAS METB)on Anion gap [Moles/Vol] 14.0 mmol/L Normal [facility] Comment on above: Performed By: #### C BC #### [facility] [address] [place] [address] Dr. Jerald Poon Calcium [Mass/Vol] 9.6 mg/dL Normal 8.5-10.1 [facility] Comment on above: Performed By: #### C BC #### [facility] [address] [place] [address] Dr. Jerald Poon Chloride [Moles/Vol] 101 mmol/L Normal 98-107 [facility] Comment on above: Performed By: #### C BC #### [facility] [address] [place] [address] Dr. Jerald Poon CO2 [Moles/Vol] 25.4 mmol/L Normal 21.0-32.0 [facility] Comment on above: Performed By: #### C BC #### [facility] [address] [place] [address] Dr. Jerald Poon Creatinine [Mass/Vol] 0.92 mg/dL Normal 0.55-1.02 [facility] Comment on above: Performed By: #### C BC #### [facility] [address] [place] [address] Dr. Jerald Poon EGFR-AF MACANESE >60 Normal >=60 [facility] Comment on above: Performed By: #### C BC #### [facility] [address] [place] [address] Dr. Jerald Poon EGFR-NON AF MACANESE >60 Normal >=60 [facility] Comment on above: Performed By: #### C BC #### [facility] [address] [place] [address] Dr. Jerald Poon Glucose [Mass/Vol] 101 mg/dL Normal 74-106 [facility] Comment on above: Performed By: #### C BC #### [facility] [address] [place] [address] Dr. Jerald Poon Potassium [Moles/Vol] 3.4 mmol/L Critically low 3.5-5.1 [facility] Comment on above: Performed By: #### C BC #### [facility] [address] [address] [address] Jerald Poon Sodium [Moles/Vol] 137 mmol/L Normal 136-145 [facility] Comment on above: Performed By: #### C BC #### [facility] [address] [place] [address] Dr. Jerald Poon Urea nitrogen [Mass/Vol] 11.0 mg/dL Normal 7.0-18.0 [facility] Comment on above: Performed By: #### C BC #### [facility] [address] [place] [address] Dr. Jerald Poon Urea nitrogen/Creatinine [Mass ratio] 12.0 mg/mg Normal [facility] Comment on above: Performed By: #### C BC #### [facility] [address] [place] [address] Dr. Jerald Poon TSHon 06-28-2022 TSH 1.319 uIU/mL Normal 0.358-3.740 [facility] Comment on above: Performed By: #### C BC #### [facility] [address] [place] [address] Dr. Jerald Poon URINE MICROSCOPIC ONLYon BACTERIA SMALL Abnormal NONE SEEN [facility] Comment on above: Performed By: #### U MICRO, ERUR #### [facility] [address] [place] [address] Dr. Jerald Poon Bacteria identified Cx Nom (U) INDICATED Normal [facility] Comment on above: Performed By: #### U MICRO, ERUR #### [facility] [address] [place] [address] Dr. Jerald Poon CAST NONE SEEN Normal NONE SEEN [facility] Comment on above: Performed By: #### U MICRO, ERUR #### [facility] [address] [place] [address] Dr. Jerald Poon Crystals LM Nom (Urine sed) NONE SEEN Normal NONE SEEN [facility] Comment on above: Performed By: #### U MICRO, ERUR #### [facility] [address] [place] [address] Dr. Jerald Poon Epithelial cells LM Ql (Urine sed) FEW Abnormal NONE SEEN /RARE [facility] Comment on above: Performed By: #### U MICRO, ERUR #### [facility] [address] [place] [address] Dr. Jerald Poon MUCOUS NONE SEEN Normal NONE SEEN [facility] Comment on above: Performed By: #### U MICRO, ERUR #### [facility] [address] [place] [address] Dr. Jerald Poon RBC NONE SEEN Abnormal 0-2 [facility] Comment on above: Performed By: #### U MICRO, ERUR #### [facility] [address] [place] [address] Dr. Jerald Poon WBC 2-5 Abnormal NONE SEEN [facility] Comment on above: Performed By: #### U MICRO, ERUR #### [facility] [address] [place] [address] Dr. Jerald Poon CBC AUTO DIFFon 04-01-2022 BASO # 0.0 103/ul Normal 0.0-0.1 [facility] Comment on above: Performed By: #### C BC #### [facility] [address] [place] [address] Dr. Jerald Poon Basophils/100 WBC (Bld) 0.5 % Normal 0.2-2.0 [facility] Comment on above: Performed By: #### C BC #### [facility] [address] [place] [address] Dr. Jerald Poon EO # 0.1 103/ul Normal 0.0-0.7 [facility] Comment on above: Performed By: #### C BC #### [facility] [address] [place] [address] Dr. Jerald Poon Eosinophils/100 WBC (Bld) 1.7 % Normal 0.9-7.0 [facility] Comment on above: Performed By: #### C BC #### [facility] [address] [place] [address] Dr. Jerald Poon Erythrocyte distribution width (RBC) [Ratio] 14.2 % Normal 11.0-15.0 [facility] Comment on above: Performed By: #### C BC #### [facility] [address] [place] [address] Dr. Jerald Poon Hematocrit (Bld) [Volume fraction] 36.7 % Normal 36.0-48.0 [facility] Comment on above: Performed By: #### C BC #### [facility] [address] [place] [address] Dr. Jerald Poon Hemoglobin (Bld) [Mass/Vol] 12.1 g/dL Normal 12.0-16.0 [facility] Comment on above: Performed By: #### C BC #### [facility] [address] [place] [address] Dr. Jerald Poon IG # 0.01 10e3/ul Normal 0.00-0.03 [facility] Comment on above: Performed By: #### C BC #### [facility] [address] [place] [address] Dr. Jerald Poon IG % 0.1 % Normal 0.0-0.5 [facility] Comment on above: Performed By: #### C BC #### [facility] [address] [place] [address] Dr. Jerald Poon LYMPH # 2.3 103/ul Normal 1.2-3.8 [facility] Comment on above: Performed By: #### C BC #### [facility] [address] [place] [address] Dr. Jerald Poon Lymphocytes/100 WBC (Bld) 30.8 % Normal 20.5-60.0 [facility] Comment on above: Performed By: #### C BC #### [facility] [address] [place] [address] Dr. Jerald Poon MANUAL DIFF REQ NO Normal [facility] Comment on above: Performed By: #### C BC #### [facility] [address] [place] [address] Dr. Jerald Poon MCH (RBC) [Entitic mass] 27.3 pg Normal 26.7-34.0 [facility] Comment on above: Performed By: #### C BC #### [facility] [address] [place] [address] Dr. Jerald Poon MCHC (RBC) [Mass/Vol] 33.0 g/dL Normal 29.9-35.2 [facility] Comment on above: Performed By: #### C BC #### [facility] [address] [place] [address] Dr. Jerald Poon MCV (RBC) [Entitic vol] 82.7 fL Normal 81.0-99.0 [facility] Comment on above: Performed By: #### C BC #### [facility] [address] [place] [address] Dr. Jerald Poon MONO # 0.8 103/ul Normal 0.3-0.8 [facility] Comment on above: Performed By: #### C BC #### [facility] [address] [place] [address] Dr. Jerald Poon Monocytes/100 WBC (Bld) 10.6 % Normal 1.7-12.0 [facility] Comment on above: Performed By: #### C BC #### [facility] [address] [place] [address] Dr. Jerald Poon NEUT # 4.2 103/ul Normal 1.4-6.5 The [facility] Comment on above: Performed By: #### C BC #### [facility] [address] [place] [address] Dr. Jerald Poon Neutrophils/100 WBC (Bld) 56.3 % Normal 43.0-75.0 [facility] Comment on above: Performed By: #### C BC #### [facility] [address] [place] [address] Dr. Jerald Poon Platelet mean volume (Bld) [Entitic vol] 10.2 fL Normal 9.5-13.5 [facility] Comment on above: Performed By: #### C BC #### [facility] [address] [place] [address] Dr. Jerald Poon PLT 375 103/ul Normal 150-450 [facility] Comment on above: Performed By: #### C BC #### [facility] [address] [place] [address] Dr. Jerald Poon RBC 4.44 106/ul Normal 4.20-5.40 [facility] Comment on above: Performed By: #### C BC #### [facility] [address] [place] [address] Dr. Jerald Poon WBC 7.5 103/ul Normal 4.0-11.0 [facility] Comment on above: Performed By: #### C BC #### [facility] [address] [place] [address] Dr. Jerald Poon ER URINE PROFILEon 2 Bilirubin Ql (U) Negative Normal NEGATIVE [facility] Comment on above: Performed By: #### C BC #### [facility] [address] [place] [address] Dr. Jerald Poon Clarity (U) CLEAR Normal CLEAR [facility] Comment on above: Performed By: #### C BC #### [facility] [address] [place] [address] Dr. Jerald Poon Color (U) YELLOW Normal YELLOW [facility] Comment on above: Performed By: #### C BC #### [facility] [address] [place] [address] Dr. Jerald Poon ERUAHD A micrscopic examination will be performed if indicated. Normal [facility] Comment on above: Performed By: #### C BC #### [facility] [address] [place] [address] Dr. Jerald Poon Glucose Ql (U) Negative Normal NEGATIVE [facility] Comment on above: Performed By: #### C BC #### [facility] [address] [place] [address] Dr. Jerald Poon Hemoglobin Ql (U) Negative Normal NEGATIVE [facility] Comment on above: Performed By: #### C BC #### [facility] [address] [place] [address] Dr. Jerald Poon Ketones Ql (U) Negative Normal NEGATIVE [facility] Comment on above: Performed By: #### C BC #### [facility] [address] [place] [address] Dr. Jerald Poon LEUKOCYTES Negative Normal NEGATIVE [facility] Comment on above: Performed By: #### C BC #### [facility] [address] [place] [address] Dr. Jerald Poon Nitrite Ql (U) Negative Normal NEGATIVE [facility] Comment on above: Performed By: #### C BC #### [facility] [address] [place] [address] Dr. Jerald Poon pH (U) 7.0 [pH] Normal 5-9 [facility] Comment on above: Performed By: #### C BC #### [facility] [address] [place] [address] Dr. Jerald Poon SPEC GRAVITY 1.025 Normal 1.005-<=1.02 5 [facility] Comment on above: Performed By: #### C BC #### [facility] [address] [place] [address] Dr. Jerald Poon UA PROTEIN Negative Normal NEGATIVE/ TRACE [facility] Comment on above: Performed By: #### C BC #### [facility] [address] [place] [address] Dr. Jerald Poon UR MICRO IND NOT INDICATED Normal [facility] Comment on above: Performed By: #### C BC #### [facility] [address] [place] [address] Dr. Jerald Poon Urobilinogen Qn (U) 1.0 {Lyly'U}/dL Normal 0.2 - 1. 0 [facility] Comment on above: Performed By: #### C BC #### [facility] [address] [place] [address] Dr. Jerald Poon PREG QUANT HCGon 04-01-2022 HCG QUANT 1 mIU/mL Normal [facility] Comment on above: Performed By: #### P REGQNT #### [facility] [address] [place] [address] Dr. Jerald Poon HCG RANGE SEE BELOW Normal [facility] Comment on above: Result Comment: 5-50 0.2-1 WEEK 50-500 1-2 WEEKS 100-5,000 2-3 WEEKS 500-10,000 3-4 WEEKS 1,000-50,000 4-5 WEEKS 10,000-100,000 5-6 WEEKS 15,000-200,000 6-8 WEEKS 10,000-100,000 2-3 MONTHS Performed By: #### P REGQNT #### [facility] [address] [place] [address] Dr. Jerald Poon PROF 14(COMP METB)on 022 Albumin [Mass/Vol] 3.6 g/dL Normal 3.4-5.0 [facility] Comment on above: Performed By: #### C MP #### [facility] [address] [place] [address] Dr. Jerald Poon Albumin/Globulin [Mass ratio] 0.8 {ratio} Normal [facility] Comment on above: Performed By: #### C MP #### [facility] [address] [place] [address] Dr. Jerald Poon ALP [Catalytic activity/Vol] 65 U/L Normal 46-116 [facility] Comment on above: Performed By: #### C MP #### [facility] [address] [place] [address] Dr. Jerald Poon ALT [Catalytic activity/Vol] 22 U/L Normal 14-59 [facility] Comment on above: Performed By: #### C MP #### [facility] [address] [place] [address] Dr. Jerald Poon Anion gap [Moles/Vol] 10.3 mmol/L Normal [facility] Comment on above: Performed By: #### C MP #### [facility] [address] [place] [address] Dr. Jreald Poon AST [Catalytic activity/Vol] 14 U/L Critically low 15-37 [facility] Comment on above: Performed By: #### C MP #### [facility] [address] [place] [address] Dr. Jerald Poon Bilirubin [Mass/Vol] 0.1 mg/dL Critically low 0.2-1.0 [facility] Comment on above: Performed By: #### C MP #### [facility] [address] [address] [address] Jerald Poon Calcium [Mass/Vol] 8.6 mg/dL Normal 8.5-10.1 [facility] Comment on above: Performed By: #### C MP #### [facility] [address] [place] [address] Dr. Jerald Poon Chloride [Moles/Vol] 104 mmol/L Normal 98-107 [facility] Comment on above: Performed By: #### C MP #### [facility] [address] [place] [address] Dr. Jerald Poon CO2 [Moles/Vol] 28.1 mmol/L Normal 21.0-32.0 [facility] Comment on above: Performed By: #### C MP #### [facility] [address] [place] [address] Dr. Jerald Poon Creatinine [Mass/Vol] 0.99 mg/dL Normal 0.55-1.02 [facility] Comment on above: Performed By: #### C MP #### [facility] [address] [place] [address] Dr. Jerald Poon EGFR-AF MACANESE >60 Normal >=60 [facility] Comment on above: Performed By: #### C MP #### [facility] [address] [address] [address] Jerald Poon EGFR-NON AF MACANESE >60 Normal >=60 [facility] Comment on above: Performed By: #### C MP #### [facility] [address] [place] [address] Dr. Jerald Poon Globulin (S) [Mass/Vol] 4.5 g/dL Normal [facility] Comment on above: Performed By: #### C MP #### [facility] [address] [address] [address] Jreald Poon Glucose [Mass/Vol] 94 mg/dL Normal 74-106 [facility] Comment on above: Performed By: #### C MP #### [facility] [address] [address] [address] Jerald Poon Potassium [Moles/Vol] 3.4 mmol/L Critically low 3.5-5.1 [facility] Comment on above: Performed By: #### C MP #### [facility] [address] [address] [address] Jerald Poon Protein [Mass/Vol] 8.1 g/dL Normal 6.4-8.2 [facility] Comment on above: Performed By: #### C MP #### [facility] [address] [address] [address] Jerald Poon Sodium [Moles/Vol] 139 mmol/L Normal 136-145 [facility] Comment on above: Performed By: #### C MP #### [facility] [address] [address] [address] Jerald Poon Urea nitrogen [Mass/Vol] 8.0 mg/dL Normal 7.0-18.0 [facility] Comment on above: Performed By: #### C MP #### [facility] [address] [address] [address] Jerald Poon Urea nitrogen/Creatinine [Mass ratio] 8.1 mg/mg Normal [facility] Comment on above: Performed By: #### C MP #### [facility] [address] [address] [address] Jerald Poon US PELVIS TRANSVAGon 10-31-2 022 US PELVIS TRANSVAG US PELVIS TRANSVAG [...] by: LUH MANRIQUE Date: 2022-04-01 21:55 Normal [facility] Automated erythrocytes count in urine sediment (number/area)Ordered By: Anders Sesay on 10-19-2021 RBC Auto (Urine sed) [#/Area] 1-2 [HPF] [facility] Automated leukocytes count i n urine sediment (number/area)Ordered By: Anders Sesay on 10-19-2021 WBC Auto (Urine sed) [#/Area] 3-4 [HPF] [facility] Basophils Auto (Bld) [#/Vol] Ordered By: Anders Sesay on 10-19-2021 Basophils (Bld) [#/Vol] 0.1 10*3/uL 0.0-0.2 [facility] Basophils/100 WBC Auto (Bld) Ordered By: Anders Sesay on 10-19-2021 Basophils/100 WBC (Bld) 0.6 % [facility] Bilirubin Test strip Ql (U)O rdered By: Anders Sesay on 10-19-2021 Bilirubin Ql (U) Negative Negative [facility] Blood hemoglobin measurement (mass/volume)Ordered By: Anders Sesay on 10-19-2021 Hemoglobin (Bld) [Mass/Vol] 13.2 g/dL 11.8-15.4 [facility] Blood leukocytes automated c ount (number/volume)Ordered By: Anders Sesay on 10-19-2021 WBC (Bld) [#/Vol] 9.1 10*3/uL 4.5-11.0 [facility] Body fluid albumin measureme nt (mass/volume)Ordered By: Anders Sesay on 10-19-2021 Albumin (Body fld) [Mass/Vol] 3.8 g/dL 3.2-5.5 [facility] Color Auto (U)Ordered By: Jason Sesay on 10-19-2021 Color (U) Yellow Yellow [facility] Creatinine and Glomerular fi ltration rate.predicted panel (S/P/Bld)Ordered By: Anders Sesay on 10-19-2021 Creatinine [Mass/Vol] 0.87 mg/dL 0.44-1.03 [facility] Eosinophils Auto (Bld) [#/Vo l]Ordered By: Anders Sesay on 10-19-2021 Eosinophils (Bld) [#/Vol] 0.1 10*3/uL 0.0-0.45 [facility] Eosinophils/100 WBC Auto (Bl d)Ordered By: Anders Sesay on 10-19-2021 Eosinophils/100 WBC (Bld) 0.9 % [facility] Erythrocyte distribution wid th Auto (RBC) [Ratio]Ordered By: Anders Sesay on 10-19-2021 Erythrocyte distribution width (RBC) [Ratio] 16.4 % 11.9-15.3 [facility] Estimated glomerular filtrat ion rate (GFR) non- AmericanOrdered By: Anders Sesay on 10-19-2021 GFR/1.73 sq M.predicted among non-blacks MDRD (S/P/Bld) [Vol rate/Area] > 60 mL/Min [facility] Globulin Calc (S) [Mass/Vol] Ordered By: Anders Sesay on 10-19-2021 Globulin (S) [Mass/Vol] 4.3 g/dL [facility] HCG ( test) IA.rapi d Ql (U)Ordered By: Anders Sesay on 10-19-2021 HCG ( test) Ql (U) Negative [facility] Hematocrit Auto (Bld) [Volum e fraction]Ordered By: Anders Sesay on 10-19-2021 Hematocrit (Bld) [Volume fraction] 40.2 % 34.0-46.4 [facility] Ketones Auto test strip (U) [Mass/Vol]Ordered By: Anders Sesay on 10-19-2021 Ketones (U) [Mass/Vol] Negative [facility]emat[facility] and Cell countsOrdered By: Anders Sesay on 10-19-2021 Nucleated RBC/100 WBC (Bld) [Ratio] 0.2 % 0-0.5 [facility] - UrinalysisOrder ed By: Anders Sesay on 10-19-2021 Hyaline casts LM Ql (Urine sed) 0-8 [LPF] [facility] Lymphocytes Auto (Bld) [#/Vo l]Ordered By: Anders Sesay on 10-19-2021 Lymphocytes (Bld) [#/Vol] 2.4 10*3/uL 1.00-4.8 [facility] Lymphocytes/100 WBC Auto (Bl d)Ordered By: Anders Sesay on 10-19-2021 Lymphocytes/100 WBC (Bld) 26.7 % [facility] MCH Auto (RBC) [Entitic mass ]Ordered By: Anders Sesay on 10-19-2021 MCH (RBC) [Entitic mass] 26.3 pg 24.7-34.3 [facility] MCHC Auto (RBC) [Mass/Vol]Or dered By: Anders Sesay on 10-19-2021 MCHC (RBC) [Mass/Vol] 32.9 g/dL 32.0-35.0 [facility] MCV Auto (RBC) [Entitic vol] Ordered By: Anders Sesay on 10-19-2021 MCV (RBC) [Entitic vol] 80.1 fL 80-100 [facility] Monocytes Auto (Bld) [#/Vol] Ordered By: Anders Sesay on 10-19-2021 Monocytes (Bld) [#/Vol] 0.7 10*3/uL 0.0-0.8 [facility] Monocytes/100 WBC Auto (Bld) Ordered By: Anders Sesay on 10-19-2021 Monocytes/100 WBC (Bld) 7.6 % [facility] Neutrophils Auto (Bld) [#/Vo l]Ordered By: Anders Sesay on 10-19-2021 Neutrophils (Bld) [#/Vol] 5.8 10*3/uL 1.8-7.7 [facility] Neutrophils/100 WBC Auto (Bl d)Ordered By: Anders Sesay on 10-19-2021 Neutrophils/100 WBC (Bld) 64.2 % [facility] Nitrite Test strip Ql (U)Ord ered By: Anders Sesay on 10-19-2021 Nitrite Ql (U) Negative Negative [facility] No Panel InformationOrdered By: Anders Sesay on 10-19-2021 Estimated GFR () > 60 mL/Min [facility] Comment on above: GFR estimated refere nce range: According to KDOQI guidelines, <60 ml/min/1.73m2 is sufficient to diagnose a patient with chronic kidney disease. Pharmacy Creatinine Clearance (Chem 147.41 [facility] Platelet mean volume Auto (B ld) [Entitic vol]Ordered By: Anders Sesay on 10-19-2021 Platelet mean volume (Bld) [Entitic vol] 8.6 fL 6.3-10.7 [facility] Platelets Auto (Bld) [#/Vol] Ordered By: Anders Sesay on 10-19-2021 Platelets (Bld) [#/Vol] 395 10*3/uL 150-450 [facility] Protein Auto test strip (U) [Mass/Vol]Ordered By: Anders Sesay on 10-19-2021 Protein (U) [Mass/Vol] Negative Negative [facility] Protein [Mass/volume] in Ser um or PlasmaOrdered By: Anders Sesay on 10-19-2021 Protein [Mass/Vol] 8.1 g/dL 6.1-7.9 [facility] RBC Auto (Bld) [#/Vol]Ordere d By: Anders Sesay on 10-19-2021 RBC (Bld) [#/Vol] 5.02 10*6/uL 3.60-5.00 [facility] Serum or plasma alanine ayoub otransferase measurement without P-5'-P (enzymatic activiOrdered By: Anders Sesay on 10-19-2021 ALT No additional P-5'-P [Catalytic activity/Vol] 20 U/L 10-60 [facility] Serum or plasma albumin/glob ulin mass ratioOrdered By: Anders Sesay on 10-19-2021 Albumin/Globulin [Mass ratio] 0.9 {ratio} [facility] Serum or plasma alkaline cosmo sphatase measurement (enzymatic activity/volume)Ordered By: Anders Sesay on 10-19-2021 ALP [Catalytic activity/Vol] 55 U/L 32-92 [facility] Serum or plasma aspartate am inotransferase measurement (enzymatic activity/volume)Ordered By: Anders Sesay on 10-19-2021 AST [Catalytic activity/Vol] 17 U/L 10-42 [facility] Serum or plasma calcium joann urement (mass/volume)Ordered By: Anders Sesay on 10-19-2021 Calcium [Mass/Vol] 9.1 mg/dL 8.2-10.2 [facility] Serum or plasma chloride adan surement (moles/volume)Ordered By: Anders Sesay on 10-19-2021 Chloride [Moles/Vol] 103 mmol/L 95-114 [facility] Serum or plasma glucose joann urement (mass/volume)Ordered By: Anders Sesay on 10-19-2021 Glucose [Mass/Vol] 105 mg/dL 70-100 [facility] Comment on above: ADA recommended refe rence range Random Glucose Reference Range is dependent on time and content of last meal. Glucose of more than 200 mg/dL in a nonstressed, ambulatory subject supports the diagnosis of Diabetes Mellitus. Serum or plasma potassium me asurement (moles/volume)Ordered By: Anders Sesay on 10-19-2021 Potassium [Moles/Vol] 3.7 mmol/L 3.5-5.1 [facility] Serum or plasma sodium measu rement (moles/volume)Ordered By: Anders Sesay on 10-19-2021 Sodium [Moles/Vol] 137 mmol/L 136-146 [facility] Serum or plasma total biliru bin measurement (mass/volume)Ordered By: Anders Sesay on 10-19-2021 Bilirubin [Mass/Vol] 0.3 mg/dL 0.3-1.2 [facility] Serum or plasma total carbon dioxide measurement (moles/volume)Ordered By: Anders Sesay on 10-19-2021 CO2 [Moles/Vol] 24.2 mmol/L 22.0-30.0 [facility] Serum or plasma urea nitroge n measurement (mass/volume)Ordered By: Anders Sesay on 10-19-2021 Urea nitrogen [Mass/Vol] 7 mg/dL - [facility] Specific gravity Auto test s trip (U) [Rel density]Ordered By: Anders Sesay on 10-19-2021 Specific gravity (U) [Rel density] 1.014 1.001-1.030 [facility] Squamous epithelial cells de tection in urine sediment by light microscopyOrdered By: Anders Sesay on 10-19-2021 Epithelial cells.squamous LM Ql (Urine sed) 3-4 [HPF] [facility] Urine bacteria detection by automated methodOrdered By: Anders Sesay on 10-19-2021 Bacteria Auto Ql (U) 1+ None Seen [facility] Urine clarity by refractomet ry automatedOrdered By: Anders Sesay on 10-19-2021 Clarity Refractometry automated (U) Clear Clear [facility] Urine glucose measurement by automated test strip (mass/volume)Ordered By: Anders Sesay on 10-19-2021 Glucose Auto test strip (U) [Mass/Vol] Normal mg/dL Normal [facility] Urine hemoglobin detection b y automated test stripOrdered By: Anders Sesay on 10-19-2021 Hemoglobin Auto test strip Ql (U) Negative Negative [facility] Urine leukocyte esterase det ection by automated test stripOrdered By: Anders Seasy on 10-19-2021 Leukocyte esterase Auto test strip Ql (U) 1+ Negative [facility] Urobilinogen Auto test strip (U) [Mass/Vol]Ordered By: Anders Sesay on 10-19-2021 Urobilinogen (U) [Mass/Vol] Normal mg/dL Normal [facility] pH Auto test strip (U)Ordere d By: Anders Sesay on 10-19-2021 pH (U) 5.5 [pH] 5.0-9.0 [facility] US DUP ABD PEL RETRO SCROT [...] MD 07/14/20 Edited Result - FINAL Normal [facility] US NON OB TRANSVAGINALon US NON [...] by: Raghavendra Frazier MD Signed by: Raghavendra Frzaier MD 07/14/20 Edited Result - FINAL Normal [facility] Chlamydia/GC,DNA Ampon 07-10 Chlamydia Probe Negative Normal NEG [facility] Comment on above: Result Comment: CHLA [...] Performed By: #### U HCG, UAMIC #### [address] [id number] Appeals Analyst: Campos Avilez MD Gonorrhea Probe Negative Normal NEG [facility] Comment on above: Result Comment: NEIS [...] Performed By: #### U HCG, UAMIC #### [address] [id number] Appeals Analyst: Campos Avilez MD Cult,Urineon 07-09-2020 Cult,Urine Specimen Description .CLEAN CATCH URINE Special Requests NOT REPORTED Culture ESCHERICHIA COLI >[id number] CFU/ML Report Status FINAL 07/09/2020 SUSCEPTIBILITY Organism [...] <=20 SUSCEPTIBLE Piperacillin/Tazobac her <=4 SUSCEPTIBLE Normal [facility] Comment on above: Performed By: #### U HCG, UAMIC #### [address] [address] Appeals Analyst: Campos Avilez MD ABO/Rh(D)on 07-08-2020 ABO/Rh(D) Positive Normal [facility] Comment on above: Performed By: #### A [facility] #### [place] [address] Appeals Analyst: Campos Avilez MD CBC with Diffon 07-08-2020 Abs. Basophil 0.04 k/uL Normal 0.00-0.20 [facility] Comment on above: Performed By: #### C P, CDP, COSMO, BHCG, MG, VD25, LIP #### [place] [address] Appeals Analyst: Campos Avilez MD Abs.Imm.Granulocyte 0.04 k/uL Normal 0.00-0.30 [facility] Comment on above: Performed By: #### C P, CDP, COSMO, BHCG, MG, VD25, LIP #### [place] [address] Appeals Analyst: Campos Avilez MD Abs.Neutrophil (Seg) 8.16 k/uL High 1.80-8.00 [facility] Comment on above: Performed By: #### C P, CDP, COSMO, BHCG, MG, VD25, LIP #### [place] [address] Appeals Analyst: Campos Avilez MD Auto Diff Performed NOT REPORTED Normal [facility] Comment on above: Performed By: #### C P, CDP, COSMO, BHCG, MG, VD25, LIP #### [place] [address] Appeals Analyst: Campos Avilez MD Basophils/100 WBC (Bld) 0 % Normal 0-2 [facility] Comment on above: Performed By: #### C P, CDP, COSMO, BHCG, MG, VD25, LIP #### [address] [address] Appeals Analyst: Campos Avilez MD Eosinophils (Bld) [#/Vol] 0.10 10*3/uL Normal 0.00-0.44 [facility] Comment on above: Performed By: #### C P, CDP, COSMO, BHCG, MG, VD25, LIP #### [address] [address] Appeals Analyst: Campos Avilez MD Eosinophils/100 WBC (Bld) 1 % Normal 1-4 [facility] Comment on above: Performed By: #### C P, CDP, COSMO, BHCG, MG, VD25, LIP #### [address] [address] Appeals Analyst: Campos Avilez MD Erythrocyte distribution width (RBC) [Ratio] 14.0 % Normal 11.8-14.4 [facility] Comment on above: Performed By: #### C P, CDP, COSMO, BHCG, MG, VD25, LIP #### [address] [address] Appeals Analyst: Campos Avilez MD Hematocrit (Bld) [Volume fraction] 34.3 % Low 36.3-47.1 [facility] Comment on above: Performed By: #### C P, CDP, COSMO, BHCG, MG, VD25, LIP #### [address] [address] Appeals Analyst: Campos Avilez MD Hemoglobin (Bld) [Mass/Vol] 11.1 g/dL Low 11.9-15.1 [facility] Comment on above: Performed By: #### C P, CDP, COSMO, BHCG, MG, VD25, LIP #### [address] [address] Appeals Analyst: Campos Avilez MD Immature granulocytes (Bld) [#/Vol] 0 % Normal 0 [facility] Comment on above: Performed By: #### C P, CDP, COSMO, BHCG, MG, VD25, LIP #### [place] [address] Appeals Analyst: Campos Avilez MD Lymphocytes (Bld) [#/Vol] 1.77 10*3/uL Normal 1.20-5.20 [facility] Comment on above: Performed By: #### C P, CDP, COSMO, BHCG, MG, VD25, LIP #### [place] [address] Appeals Analyst: Campos Avilez MD Lymphocytes/100 WBC (Bld) 16 % Low 25-45 [facility] Comment on above: Performed By: #### C P, CDP, COSMO, BHCG, MG, VD25, LIP #### [place] [address] Appeals Analyst: Campos Avilez MD MCH (RBC) [Entitic mass] 26.6 pg Normal 25.0-35.0 [facility] Comment on above: Performed By: #### C P, CDP, COSMO, BHCG, MG, VD25, LIP #### [place] [address] Appeals Analyst: Campos Avilez MD MCHC (RBC) [Mass/Vol] 32.4 g/dL Normal 28.4-34.8 [facility] Comment on above: Performed By: #### C P, CDP, COSMO, BHCG, MG, VD25, LIP #### [place] [address] Appeals Analyst: Campos Avilez MD MCV (RBC) [Entitic vol] 82.3 fL Normal 78.0-102.0 [facility] Comment on above: Performed By: #### C P, CDP, COSMO, BHCG, MG, VD25, LIP #### [address] [address] Appeals Analyst: Campos Avilez MD Monocytes (Bld) [#/Vol] 0.73 10*3/uL Normal 0.10-1.40 [facility] Comment on above: Performed By: #### C P, CDP, COSMO, BHCG, MG, VD25, LIP #### [address] [address] Appeals Analyst: Campos Avilez MD Monocytes/100 WBC (Bld) 7 % Normal 2-8 [facility] Comment on above: Performed By: #### C P, CDP, COSMO, BHCG, MG, VD25, LIP #### [place] [address] Appeals Analyst: Campos Avilez MD Neutrophil (Seg) 75 % High 34-64 [facility] Comment on above: Performed By: #### C P, CDP, COSMO, BHCG, MG, VD25, LIP #### [place] [address] Appeals Analyst: Campos Avilez MD NRBC Automated 0.0 per 100 WBC Normal 0.0 [facility] Comment on above: Performed By: #### C P, CDP, COSMO, BHCG, MG, VD25, LIP #### [address] [id number] Appeals Analyst: Campos Avilez MD Platelet mean volume (Bld) [Entitic vol] 11.8 fL Normal 8.1-13.5 [facility] Comment on above: Performed By: #### C P, CDP, COSMO, BHCG, MG, VD25, LIP #### [address] [address] Appeals Analyst: Campos Avilez MD Platelets (Bld) [#/Vol] NOT REPORTED Normal [facility] Comment on above: Performed By: #### C P, CDP, COSMO, BHCG, MG, VD25, LIP #### [address] [address] Appeals Analyst: Campos Avilez MD Platelets (Bld) [#/Vol] 288 10*3/uL Normal 138-453 [facility] Comment on above: Performed By: #### C P, CDP, COSMO, BHCG, MG, VD25, LIP #### [address] [address] Appeals Analyst: Campos Avilez MD RBC (Bld) [#/Vol] 4.17 10*6/uL Normal 3.95-5.11 [facility] Comment on above: Performed By: #### C P, CDP, COSMO, BHCG, MG, VD25, LIP #### [address] [address] Appeals Analyst: Campos Avilez MD RBC morphology finding Nom (Bld) NOT REPORTED Normal [facility] Comment on above: Performed By: #### C P, CDP, COSMO, BHCG, MG, VD25, LIP #### [address] [address] Appeals Analyst: Campos Avilez MD WBC (Bld) [#/Vol] 10.8 10*3/uL Normal 4.5-13.5 [facility] Comment on above: Performed By: #### C P, CDP, COSMO, BHCG, MG, VD25, LIP #### [address] [address] Appeals Analyst: Campos Avilez MD WBC Morphology NOT REPORTED Normal [facility] Comment on above: Performed By: #### C P, CDP, COSMO, BHCG, MG, VD25, LIP #### [address] [place] [address] Appeals Analyst: Campos Avilez MD Calcium, Ionicon 07-08-2020 Calcium [Mass/Vol] 1.18 mmol/L Normal 1.13-1.33 [facility] Comment on above: Performed By: #### I OCAL #### [facility] [address] [place] [id number] Appeals Analyst: Campos Avilez MD Calcium, Ionizedon Calcium [Mass/Vol] 1.18 mmol/L 1.13 - 1. 33 mmol/L [facility], [place] Comp Metabolic Profon 2020 (cont.) Normal [facility] Comment on above: Result Comment: Aver age GFR for <20 years old not available. Chronic Kidney Disease: <60 mL/min/1.73sq m Kidney failure: <15 mL/min/1.73sq m eGFR calculated using average adult body mass. Additional eGFR calculator available at: http://www.[employer].Satiety/multiple_crcl_2012.htm Performed By: #### C P, CDP, COSMO, BHCG, MG, VD25, LIP #### [facility] [address] [place] [address] Appeals Analyst: Campos Avilez MD Albumin [Mass/Vol] 2.3 g/dL Low 3.5-5.2 [facility] Comment on above: Performed By: #### C P, CDP, COSMO, BHCG, MG, VD25, LIP #### [facility] [address] [place] [address] Appeals Analyst: Campos Avilez MD Albumin/Globulin [Mass ratio] 0.9 {ratio} Low 1.0-2.5 [facility] Comment on above: Performed By: #### C P, CDP, COSMO, BHCG, MG, VD25, LIP #### [employer] [address] [place] [address] Appeals Analyst: Campos Avilez MD Alkaline Phos 41 U/L Normal 35-104 [facility] Comment on above: Result Comment: SPEC IMEN MODERATELY HEMOLYZED, RESULTS MAY BE ADVERSELY AFFECTED Performed By: #### C P, CDP, COSMO, BHCG, MG, VD25, LIP #### [address] [address] Appeals Analyst: Campos Avilez MD ALT [Catalytic activity/Vol] 11 U/L Normal 5-33 [facility] Comment on above: Result Comment: SPEC IMEN MODERATELY HEMOLYZED, RESULTS MAY BE ADVERSELY AFFECTED Performed By: #### C P, CDP, COSMO, BHCG, MG, VD25, LIP #### [address] [address] Appeals Analyst: Campos Avilez MD Anion gap [Moles/Vol] 9 mmol/L Normal 9-17 [facility] Comment on above: Performed By: #### C P, CDP, COSMO, BHCG, MG, VD25, LIP #### [address] [address] Appeals Analyst: Campos Avilez MD AST [Catalytic activity/Vol] 28 U/L Normal <32 [facility] Comment on above: Result Comment: SPEC IMEN MODERATELY HEMOLYZED, RESULTS MAY BE ADVERSELY AFFECTED Performed By: #### C P, CDP, COSMO, BHCG, MG, VD25, LIP #### [address] [address] Appeals Analyst: Campos Avilez MD Bilirubin Ql (U) <0.10 Low 0.3-1.2 [facility] Comment on above: Performed By: #### C P, CDP, COSMO, BHCG, MG, VD25, LIP #### [address] [address] Appeals Analyst: Campos Avilez MD Calcium [Mass/Vol] 5.5 mg/dL Critically low 8.6-10.4 [facility] Comment on above: Performed By: #### C P, CDP, COSMO, BHCG, MG, VD25, LIP #### [facility] [address] [place] [address] Appeals Analyst: Campos Avilez MD Chloride [Moles/Vol] 118 mmol/L High 98-107 [facility] Comment on above: Performed By: #### C P, CDP, COSMO, BHCG, MG, VD25, LIP #### [facility] [address] [place] [address] Appeals Analyst: Campos Avilez MD CO2 [Moles/Vol] 14 mmol/L Low 20-31 [facility] Comment on above: Performed By: #### C P, CDP, COSMO, BHCG, MG, VD25, LIP #### [facility] [address] [place] [address] Appeals Analyst: Campos Avilez MD Creatinine [Mass/Vol] 0.60 mg/dL Normal 0.50-0.90 [facility] Comment on above: Performed By: #### C P, CDP, COSMO, BHCG, MG, VD25, LIP #### [facility] [address] [place] [address] Appeals Analyst: Campos Avilez MD GFR, Amer NOT REPORTED Normal >60 [facility] Comment on above: Performed By: #### C P, CDP, COSMO, BHCG, MG, VD25, LIP #### [facility] [address] [place] [address] Appeals Analyst: Campos Avilez MD GFR,non Amer Pediatric GFR requires additional information. Refer to NKDEP website for Normal >60 [facility] Comment on above: Result Comment: calc ulator. Performed By: #### C P, CDP, COSMO, BHCG, MG, VD25, LIP #### [address] [address] Appeals Analyst: Campos Avilez MD Glucose [Mass/Vol] 84 mg/dL Normal 70-99 [facility] Comment on above: Performed By: #### C P, CDP, COSMO, BHCG, MG, VD25, LIP #### [address] [address] Appeals Analyst: Campos Avilez MD Potassium [Moles/Vol] 5.1 mmol/L Normal 3.7-5.3 [facility] Comment on above: Result Comment: SPEC IMEN MODERATELY HEMOLYZED, RESULTS MAY BE ADVERSELY AFFECTED Performed By: #### C P, CDP, COSMO, BHCG, MG, VD25, LIP #### [address] [address] Appeals Analyst: Campos Avielz MD Protein [Mass/Vol] 5.0 g/dL Low 6.4-8.3 [facility] Comment on above: Performed By: #### C P, CDP, COSMO, BHCG, MG, VD25, LIP #### [address] [address] Appeals Analyst: Campos Avilez MD Sodium [Moles/Vol] 141 mmol/L Normal 135-144 [facility] Comment on above: Performed By: #### C P, CDP, COSMO, BHCG, MG, VD25, LIP #### [address] [address] Appeals Analyst: Campos Avilez MD Staging: NOT REPORTED Normal [facility] Comment on above: Performed By: #### C P, CDP, COSMO, BHCG, MG, VD25, LIP #### [address] [address] Appeals Analyst: Campos Avilez MD Urea nitrogen [Mass/Vol] 10 mg/dL Normal 6-20 [facility] Comment on above: Performed By: #### C P, CDP, COSMO, BHCG, MG, VD25, LIP #### [address] [address] Appeals Analyst: Campos Avilez MD HCG, ,Urineon 07-08 Beta HCG ( test) Ql (U) Negative Normal NEG [facility] Comment on above: Result Comment: Spec [...] Performed By: #### U HCG, UAMIC #### [address] [address] Appeals Analyst: Campos Avilez MD HCG, Quanton 07-08-2020 HCG, Quant <1 Normal <5 [facility] Comment on above: Result Comment: Non-preg [...] CDP, COSMO, BHCG, MG, VD25, LIP #### [facility] [address] [place] [phone] Appeals Analyst: Campos Avilez MD Lipaseon 07-08-2020 Lipase [Catalytic activity/Vol] 15 U/L Normal 13-60 [facility] Comment on above: Performed By: #### C P, CDP, COSMO, BHCG, MG, VD25, LIP #### [address] [address] Appeals Analyst: Campos Avilez MD Magnesiumon 07-08-2020 Magnesium [Mass/Vol] 1.2 mg/dL Low 1.7 - 2 .2 mg/dL [place] Magnesium [Mass/Vol] 1.2 mg/dL Low 1.7-2.2 [facility] Comment on above: Performed By: #### C P, CDP, COSMO, BHCG, MG, VD25, LIP #### [facility] [address] [place] [address] Appeals Analyst: Campos Avilez MD Otheron 07-08-2020 Direct Exam Negative [place] Interpretation and review of laboratory results Abnormal [place] Interpretation and review of laboratory results Abnormal [place] , URINEon 1 Beta HCG ( test) Ql (U) Negative NEGATIVE [place] Comment on above: Specimens with hCG [...] 2.6 mg/dL 2.5 - 4 .8 mg/dL [place] Phosphorus, Inorg.on 021 Phosphorus, Inorg. 2.6 mg/dL Normal 2.5-4.8 [facility] Comment on above: Performed By: #### U HCG, UAMIC #### [facility] [address] [place] [address] Appeals Analyst: Campos Avilez MD NON OB TRANSVAGINALon Elia, Mhpn Incoming Radiant Results From [employer] - 07/08/2020 12:31 AM EST EXAMINATION: PELVIC [...] No evidence of ovarian torsion is noted. [place] Unremarkable pelvic ultrasound. No evidence of ovarian torsion is noted. [place] EXAMINATION: PELVIC ULTRASOUND 07/07/2020 TECHNIQUE: Transvaginal [...] Free Fluid: No evidence of free fluid. [place] Urinalysis w/ Microon 2020 ----- Normal [facility] Comment on above: Performed By: #### U HCG, UAMIC #### [facility] [address] [place], [place] [phone] Appeals Analyst: Campos Avilez MD Acetoacetic Acid,Ur Negative Normal NEG [facility] Comment on above: Performed By: #### U HCG, UAMIC #### [facility] [address] [place], [place] [phone] Appeals Analyst: Campos Avilez MD Amorphous sediment LM Ql (Urine sed) NOT REPORTED Normal NONE [facility] Comment on above: Performed By: #### U HCG, UAMIC #### [address] [address] Appeals Analyst: Campos Avilez MD Bacteria LM.HPF (Urine sed) [#/Area] MANY Abnormal [facility] Comment on above: Performed By: #### U HCG, UAMIC #### [address] [address] Appeals Analyst: Campos Avilez MD Bilirubin, SemiQt,Ur Negative Normal NEG [facility] Comment on above: Performed By: #### U HCG, UAMIC #### [address] [address] Appeals Analyst: Campos Avilez MD Casts LM.LPF (Urine sed) [#/Area] NOT REPORTED Normal 0-8 [facility] Comment on above: Performed By: #### U HCG, UAMIC #### [address] [address] Appeals Analyst: Campos Avilez MD Color (U) ORANGE Abnormal YEL [facility] Comment on above: Result Comment: INTE RPRET WITH CAUTION DUE TO INTENSE COLOR OF URINE. Performed By: #### U HCG, UAMIC #### [address] [address] Appeals Analyst: Campos Avilez MD Crystals LM Nom (Urine sed) NOT REPORTED Normal [facility] Comment on above: Performed By: #### U HCG, UAMIC #### [address] [address] Appeals Analyst: Campos Avilez MD Epithelial cells LM.HPF (Urine sed) [#/Area] 0 TO 2 Normal 0-5 [facility] Comment on above: Performed By: #### U HCG, UAMIC #### [address] [address] Appeals Analyst: Campos Avilez MD Epithelial, Renal NOT REPORTED Normal 0 [facility] Comment on above: Performed By: #### U HCG, UAMIC #### [facility] [address] [place] [address] Appeals Analyst: Campos Avilez MD Glucose Ql (U) Negative Normal NEG [facility] Comment on above: Performed By: #### U HCG, UAMIC #### [facility] [address] [place] [address] Appeals Analyst: Campos Avilez MD Hemoglobin, Ur LARGE Abnormal NEG [facility] Comment on above: Performed By: #### U HCG, UAMIC #### [address] [address] Appeals Analyst: Campos Avilez MD Leukocyte esterase Test strip Ql (U) MODERATE Abnormal NEG [facility] Comment on above: Performed By: #### U HCG, UAMIC #### [address] [address] Appeals Analyst: Campos Avilez MD Mucus Strands NOT REPORTED Normal NONE [facility] Comment on above: Performed By: #### U HCG, UAMIC #### [address] [address] Appeals Analyst: Campos Avilez MD Nitrite,Ur Positive Abnormal NEG [facility] Comment on above: Performed By: #### U HCG, UAMIC #### [address] [address] Appeals Analyst: Campos Avilez MD Other Observations NOT REPORTED Normal NREQ [facility] Comment on above: Performed By: #### U HCG, UAMIC #### [address] [address] Appeals Analyst: Campos Avilez MD pH (U) 5.5 [pH] Normal 5.0-8.0 [facility] Comment on above: Performed By: #### U HCG, UAMIC #### [address] [address] Appeals Analyst: Campos Avilez MD Protein Ql (U) 2+ Abnormal NEG [facility] Comment on above: Performed By: #### U HCG, UAMIC #### [address] [address] Appeals Analyst: Campos Avilez MD RBC (U) [#/Vol] 50 TO 100 Normal 0-4 [facility] Comment on above: Result Comment: Refe rence range defined for non-centrifuged specimen. Performed By: #### U HCG, UAMIC #### [address] [address] Appeals Analyst: Campos Avilez MD Specific gravity (U) [Rel density] 1.021 Normal 1.005-1.030 [facility] Comment on above: Performed By: #### U HCG, UAMIC #### [address] [address] Appeals Analyst: Campos Avilez MD Trichomonas NOT REPORTED Normal NONE [facility] Comment on above: Performed By: #### U HCG, UAMIC #### [address] [address] Appeals Analyst: Campos Avilez MD Turbidity TURBID Abnormal CLEAR [facility] Comment on above: Performed By: #### U HCG, UAMIC #### [address] [address] Appeals Analyst: Campos Avilez MD Urobilinogen,Ur Normal Normal NORM [facility] Comment on above: Performed By: #### U HCG, UAMIC #### [address] [address] Appeals Analyst: Campos Avilez MD WBC (U) [#/Vol] TOO NUMEROUS TO COUNT Normal 0-5 [facility] Comment on above: Performed By: #### U HCG, UAMIC #### [facility] [address] [place], [place] [phone] Appeals Analyst: Campos Avilez MD Yeast LM Ql (Urine sed) NOT REPORTED Normal NONE [facility] Comment on above: Performed By: #### U HCG, UAMIC #### [facility] [address] [place], [place] [phone] Appeals Analyst: Campos Avilez MD Urinalysis with microscopico n 07-08-2020 Amorphous, UA NOT REPORTED None [place] Bacteria, UA MANY Abnormal None [place], [place] Bilirubin Urine Negative NEGATIVE [place] Casts UA NOT REPORTED [place] Color, UA ORANGE Abnormal YELLOW [place] Comment on above: INTERPRET WITH CAUTI ON DUE TO INTENSE COLOR OF URINE. Crystals, UA NOT REPORTED None /HPF [place] Epithelial Cells UA 0 TO 2 [place] Glucose, Ur Negative NEGATIVE [place] Ketones Ql (U) Negative NEGATIVE [place] Leukocyte esterase Test strip Ql (U) MODERATE Abnormal NEGATIVE [place] Mucus, UA NOT REPORTED None [place] Nitrite, Urine Positive Abnormal NEGATIVE [place] Other Observations UA NOT REPORTED NOT REQ. [place] pH, UA 5.5 [place] Protein (U) [Mass/Vol] 2+ Abnormal NEGATIVE [place], [place] RBC (U) [#/Vol] 50 TO 100 [place] Comment on above: Reference range defi sonia for non-centrifuged specimen. Renal Epithelial, UA NOT REPORTED 0 /HPF [place] Specific [place], UA 1.021 [place], [place] Trichomonas, UA NOT REPORTED None [place], [place] Turbidity UA TURBID Abnormal CLEAR [place] Urine Hgb LARGE Abnormal NEGATIVE [place] Urobilinogen, Urine Normal Normal [place] WBC, UA TOO NUMEROUS TO COUNT [place] Yeast, UA NOT REPORTED None [place] - [place] VAGINITIS DNA PROBEon 2020 Direct Exam Positive Abnormal [place] Direct Exam Method of testing is a DNA probe intended for detection and identification of Samantha species, Gardnerella vaginalis, and Trichomonas vaginalis nucleic acid in vaginal fluid specimens from patients with symptoms of vaginitis/vaginosis. [place] Special Requests NOT REPORTED [place] Specimen Description .VAGINA [place] Vaginitis DNA Probeon 2020 Vaginitis DNA [...] of vaginitis/vaginosis. Report Status FINAL 07/08/2020 Normal [facility] Comment on above: Performed By: #### U HCG, UAMIC #### [employer] [address] [place] [address] Appeals Analyst: Campos Avilez MD Vitamin D 25 Hydroxyon 07-08 Vit D, 25-Hydroxy 12.1 ng/mL Low 30 - 100 ng/mL [place] Comment on above: Reference Range: Vitamin D status Range Deficiency <20 ng/mL Mild Deficiency 20-30 ng/mL Sufficiency 30-100 ng/mL Toxicity >100 ng/mL Vitamin D 25 OHon 07-08-2020 Vitamin D 25 OH 12.1 ng/mL Low 30.0-100.0 [facility] Comment on above: Result Comment: Reference Range: Vitamin D status Range Deficiency <20 ng/mL Mild Deficiency 20-30 ng/mL Sufficiency 30-100 ng/mL Toxicity >100 ng/mL Performed By: #### U HCG, UAMIC #### [facility] [address] [place] [address] Appeals Analyst: Campos Avilez MD ABO/RHon 07-07-2020 ABO/Rh Positive [place] CBC WITH AUTO DIFFERENTIALon 07-07-2020 Basophils (Bld) [#/Vol] 0.04 10*3/uL [place] Basophils/100 WBC (Bld) 0 % 0 - 2 % [place] Differential Type NOT REPORTED [place] Eosinophils (Bld) [#/Vol] 0.10 10*3/uL [place] Eosinophils/100 WBC (Bld) 1 % 1 - 4 % [place] Erythrocyte distribution width (RBC) [Ratio] 14.0 % 11.8 - 14.4 % [place] Hematocrit (Bld) [Volume fraction] 34.3 % Low 36.3 - 47.1 % [place] Hemoglobin (Bld) [Mass/Vol] 11.1 g/dL Low 11.9 - 15.1 g/dL [place] Immature granulocytes (Bld) [#/Vol] 0 % 0 [place] Immature granulocytes (Bld) [#/Vol] 0.04 10*3/uL [place] Lymphocytes (Bld) [#/Vol] 1.77 10*3/uL [place] Lymphocytes/100 WBC (Bld) 16 % Low 25 - 45 % [place] MCH (RBC) [Entitic mass] 26.6 pg 25 - 35 pg [place] MCHC (RBC) [Mass/Vol] 32.4 g/dL 28.4 - 34.8 g/dL [place] MCV (RBC) [Entitic vol] 82.3 fL 78 - 102 fL [place] Monocytes (Bld) [#/Vol] 0.73 10*3/uL [place] Monocytes/100 WBC (Bld) 7 % 2 - 8 % [place] Platelet mean volume (Bld) [Entitic vol] 11.8 fL 8.1 - 13.5 fL [place] Platelets (Bld) [#/Vol] NOT REPORTED [place] Platelets (Bld) [#/Vol] 288 10*3/uL [place] RBC (Bld) [#/Vol] 4.17 10*6/uL 3.95 - 5.1 1 m/uL [place] RBC morphology finding Nom (Bld) NOT REPORTED [place] Segmented neutrophils/100 WBC (Bld) 75 % High 34 - 64 % [place] Segs Absolute 8.16 High [place] WBC (Bld) [#/Vol] 0.0 10*3/uL 0.0 per 10 0 WBC [place] WBC (Bld) [#/Vol] 10.8 10*3/uL [place] WBC Morphology NOT REPORTED [place] COMPREHENSIVE METABOLIC PANE Mikie 07-07-2020 Albumin [Mass/Vol] 2.3 g/dL Low 3.5 - 5.2 g/dL [place] Albumin/Globulin [Mass ratio] 0.9 {ratio} Low [place] ALP [Catalytic activity/Vol] 41 U/L 35 - 104 U/L [place] Comment on above: SPECIMEN MODERATELY HEMOLYZED, RESULTS MAY BE ADVERSELY AFFECTED ALT [Catalytic activity/Vol] 11 U/L 5 - 33 U/L [place] Comment on above: SPECIMEN MODERATELY HEMOLYZED, RESULTS MAY BE ADVERSELY AFFECTED Anion gap [Moles/Vol] 9 mmol/L 9 - 17 mmol/L [place] AST [Catalytic activity/Vol] 28 U/L <32 [place] Comment on above: SPECIMEN MODERATELY HEMOLYZED, RESULTS MAY BE ADVERSELY AFFECTED Bilirubin Ql (U) <0.10 Low 0.3 - 1.2 mg/dL [place] Calcium [Mass/Vol] 5.5 mg/dL Critically low 8.6 - 1 0.4 mg/dL [place] Chloride [Moles/Vol] 118 mmol/L High 98 - 10 7 mmol/L [place] CO2 [Moles/Vol] 14 mmol/L Low 20 - 31 mmol/L [place] Creatinine [Mass/Vol] 0.6 mg/dL 0.5 - 0.9 mg/dL [place] GFR NOT REPORTED >60 mL/min [place] GFR Non- Pediatric GFR requires additional information. Refer to NKMDP website for calculator. >60 mL/min [place] GFR/1.73 sq M predicted among non-blacks MDRD (S/P/Bld) [Vol rate/Area] NOT REPORTED [place] GFR/1.73 sq M predicted among non-blacks MDRD (S/P/Bld) [Vol rate/Area] [place] Comment on above: Average GFR for <20 years old not available. Chronic Kidney Disease: <60 mL/min/1.73sq m Kidney failure: <15 mL/min/1.73sq m eGFR calculated using average adult body mass. Additional eGFR calculator available at: http://www.[employer]/multiple_crcl_2012.htm Glucose [Mass/Vol] 84 mg/dL 70 - 99 mg/dL [place] Potassium [Moles/Vol] 5.1 mmol/L 3.7 - 5.3 mmol/L [place] Comment on above: SPECIMEN MODERATELY HEMOLYZED, RESULTS MAY BE ADVERSELY AFFECTED Protein [Mass/Vol] 5.0 g/dL Low 6.4 - 8.3 g/dL [place] Sodium [Moles/Vol] 141 mmol/L 135 - 144 mmol/L [place] Urea nitrogen [Mass/Vol] 10 mg/dL 6 - 20 mg/dL [place] Comp Metabolic Profon 2020 Bun/Cre Ratio NOT REPORTED Normal 9-20 [place] Comment on above: Performed By: #### C P, CDP, COSMO, BHCG, MG, VD25, LIP #### [facility] [address] [place] [address] Appeals Analyst: Campos Avilez MD HCG, QUANTITATIVE, on 07-07-2020 hCG Quant <1 <5 IU/L [place] Comment on above: Non-preg premeno <=5 [...] activity/Vol] 15 U/L 13 - 60 U/L [place] Social History Date Type Detail Facility Start: 07-16-2023 Gender identity Not on file [facility] Start: 07-16-2023 End: 07-17-2023 Alcohol intake Lifetime non-drinker (finding) [facility] Start: 07-16-2023 History of Social function [facility] Start: 05-22-2023 [facility] Start: 10-19-2021 Tobacco smoking status DCIS Smoker (finding) [facility] Start: 07-07-2020 End: 07-16-2023 Tobacco smoking status [facility] Never smoker [facility] Start: 07-07-2020 Tobacco use and exposure Never used [place] Start: 2002 Sex Assigned At Not on file [place] Start: 2002 Sex Assigned At Female F [facility] Exposure to SARS-CoV-2 (event) Not sure [place] Tobacco smoking status [facility] Tobacco smoking consumption unknown [facility] Tobacco smoking status No Smoking Status Entered [facility] Vital Signs Date Time Vital Sign Value Performing Clinician Facility 10-26-2023 03:30-0400 Hourly Rounding [facility] Comment on above: Result Comment: pt discharged off unit 10-26-2023 03:15-0400 Hourly Rounding [facility] Comment on above: Result Comment: went over discharge inst ructions. educated pt on importance of contacting primary provider with future concerns, pisking up antibiotic prescription tomorrow, and calling is symtpoms return or get worse. 10-26-2023 00:00-0400 Blood Pressure Location [facility] 10-26-2023 00:00-0400 Body temperature 98.6 [degF] [facility] 10-26-2023 00:00-0400 Diastolic blood pressure 68 mm[Hg] [facility] 10-26-2023 00:00-0400 Heart rate 101 /min [facility] 10-26-2023 00:00-0400 Hourly Rounding [facility] 10-26-2023 00:00-0400 Mean blood pressure 86 mm[Hg] [facility] 10-26-2023 00:00-0400 Respiratory rate 16 /min [facility] 10-26-2023 00:00-0400 Systolic blood pressure 122 mm[Hg] [facility] 07-17-2023 11:42-0500 Body weight 127.82 kg Chung BenjaSMART Work Phone: [facility] 07-17-2023 11:42-0500 Diastolic blood pressure 70 mm[Hg] Chung Benja DO Work Phone: [facility] 07-17-2023 11:42-0500 Systolic blood pressure 118 mm[Hg] Chung Benja DO Work Phone: [facility] 10-19-2021 01:12-0400 Diastolic blood pressure 62 mm[Hg] PHYSICIAN [place] 10-19-2021 01:12-0400 Heart rate 89 /min PHYSICIAN [place] 10-19-2021 01:12-0400 Respiratory rate 18 /min PHYSICIAN [place] 10-19-2021 01:12-0400 SaO2% (BldA) [Mass fraction] 100 % PHYSICIAN [place] 10-19-2021 01:12-0400 Systolic blood pressure 130 mm[Hg] PHYSICIAN [place] 10-18-2021 23:10-0400 Body height 167.64 cm PHYSICIAN [place] 10-18-2021 23:10-0400 Body mass index (BMI) [Percentile] Per age and sex 99.1 % PHYSICIAN [place] 10-18-2021 23:10-0400 Body mass index (BMI) [Ratio] 48.2 kg/m2 PHYSIC[facility] [place] 10-18-2021 23:10-0400 Body weight 135.5 kg PHYSICIAN [place] 10-18-2021 23:08-0400 Body temperature 98.4 [degF] PHYSICIAN [place] 07-07-2020 21:51-0500 BMI (Body Mass Index) 42.93 kg/m2 [facility] 07-07-2020 21:51-0500 Body weight 120.66 kg [facility] , [place] 07-07-2020 21:51-0500 BP Diastolic 85 mm[Hg] [place] 07-07-2020 21:51-0500 BP Systolic 136 mm[Hg] [facility] , [place] 07-07-2020 21:51-0500 Height 167.6 cm [place] 07-07-2020 21:51-0500 Pulse (Heart Rate) 93 /min [facility], [place] 07-07-2020 21:51-0500 Pulse Oximetry 97 % [facility] , [place] 07-07-2020 21:51-0500 Respiratory Rate 18 /min [facility], [place] 07-07-2020 21:48-0500 Body Temperature 97.11 [degF] [place] [facility] [place] Functional Status Date Assessment Result Facility 10-26-2023 Functional Status N/A [facility] Clinical Notes 07-03-2023 to 10-26-2023 Chung Yousif, - 07/17/2023 11:10 AM Costa Kilgore LPN - 07/03/2023 1:00 PM EST Note Date & Type Note Facility 10-26-2023 Note The following Patien t Education Materials have been given to the patient: EducationMaterial [facility] 10-26-2023 Hospital Discharg e instructions Patient Education 10/26/2023 03:10:04 and Urinary Tract Infection and Urinary Tract Infection A urinary tract infection (UTI) is an infection of any part of the urinary tract. This includes the kidneys, the tubes that connect the kidneys to the bladder (ureters), the bladder, and the tube that carries urine out of the body (urethra). These organs make, store, and get rid of urine in the body. Your health care provider may use other names to describe the infection. An upper UTI affects the ureters and kidneys (pyelonephritis). A lower UTI affects the bladder (cystitis) and urethra (urethritis). Most UTIs are caused by bacteria in the genital area, around the entrance to the urinary tract. These bacteria grow and cause irritation and inflammation of the urinary tract. You are more likely to develop a UTI during because: The physical and hormonal changes that your body goes through make it easier for bacteria to get into your urinary tract. Your growing baby puts pressure on your bladder and can affect urine flow. women with diabetes are at an increased risk for developing a UTI. It is important to recognize and treat UTIs in because they can cause serious complications for both you and your baby. How does this affect me? Symptoms of a UTI include: Needing to urinate right away (urgently) and often, even if urinating a small amount. Pain, burning, or having a hard time passing urine. Blood in the urine. Unusual, cloudy, and bad-smelling urine. Pain in the abdomen or lower back. Vaginal discharge. You may also have: Vomiting or a decreased appetite. Confusion. Irritability or tiredness. A fever. Diarrhea. A low level of red blood cells (anemia). The development of high blood pressure during (preeclampsia). How does this affect my baby? An untreated UTI during could lead to a kidney infection or an infection throughout the mother's body (systemic infection). This can cause health problems and affect the baby. Possible complications of an untreated UTI include: Your baby being born before 37 weeks of (premature). Your baby being born with a low weight. Your baby having a higher risk of having his or her skin or the white parts of the eyes turn yellow (jaundice). What can I do to lower my risk? To prevent a UTI: Do not hold urine for long periods of time. Empty your bladder as soon as you feel the urge. Always wipe from front to back, especially after a bowel movement. Use each tissue one time when you wipe. Empty your bladder after sex. Keep your genital area dry. Drink 6 to 8 glasses of water each day. Do not douche or use deodorant sprays. Wear cotton underwear and loose clothing. How is this treated? Treatment for this condition may include: Antibiotic medicines that are safe to take during . Other medicines to treat less common causes of UTI. Follow these instructions at home: If you were prescribed an antibiotic medicine, take it as told by your health care provider. Do not stop using the antibiotic even if you start to feel better. Keep all follow-up visits. This is important. Contact a health care provider if: Your symptoms do not improve or they get worse. You have abnormal vaginal discharge. Get help right away if you: Have a fever. Have nausea and vomiting. Have back or side pain. Have lower belly pain, tightness, or feel contractions in your uterus. Have a gush of fluid from your vagina. Have blood in your urine. Summary A UTI is an infection of any part of the urinary tract, which includes the kidneys, ureters, bladder, and urethra. Most urinary tract infections are caused by bacteria in your genital area, around the entrance to your urinary tract (urethra). You are more likely to develop a UTI during . It is important to recognize and treat UTIs in because of the risk of serious complications for both you and your baby. If you were prescribed an antibiotic medicine, take it as told by your health care provider. Do not stop using the antibiotic even if you start to feel better. This information is not intended to replace advice given to you by your health care provider. Make sure you discuss any questions you have with your health care provider. Document Revised: 01/02/2022 Document Reviewed: 01/02/2022 [employer] Patient Education 2022 [employer] 10/26/2023 03:10:04 Vaginal Bleeding During , Second Trimester Vaginal Bleeding During , Second Trimester A small amount of bleeding from the vagina, or spotting, is common during early . Some bleeding may be related to the , and some may not. In many cases, the bleeding is normal and is not a problem. However, bleeding can also be a sign of something serious. Normal things may cause bleeding during the second trimester. They include: Rapid changes in blood vessels. This is caused by changes that are happening to the body during . Sex. Pelvic exams. Abnormal things that may cause bleeding during the second trimester include: Infection, inflammation, or growths on the cervix. The growths on the cervix are also called polyps. A condition in which the placenta partially or completely covers the opening of the cervix (placenta previa). The placenta from the uterus (placenta abruption). Miscarriage. Early labor, also called labor. The cervix opening and thinning before is at term and before labor starts (cervical insufficiency). A mass of tissue developing in the uterus due to an egg being fertilized incorrectly (molar ). Tell your health care provider about any vaginal bleeding right away. Follow these instructions at home: Monitoring your bleeding Monitor your bleeding. Pay attention to any changes in your symptoms. Let your health care provider know about any concerns. Try to understand when the bleeding occurs. Does the bleeding start on its own, or does it start after something is done, such as sex or a pelvic exam? Use a diary to record the things you see about your bleeding, including: ?The kind of bleeding you are having. Does the bleeding start and stop irregularly, or is it a constant flow? ?The severity of your bleeding. Is the bleeding heavy or light? ?The number of pads you use each day, how often you change them, and how soaked they are. Tell your health care provider if you pass tissue. He or she may want to see it. Activity Follow instructions from your health care provider about limiting your activity. Ask what activities are safe for you. Do not exercise or do activities that take a lot of effort unless your health care provider approves. Do not have sex until your health care provider says that this is safe. Do not lift anything that is heavier than 10 lb (4.5 kg), or the limit that you are told, until your health care provider says that it is safe. If needed, make plans for someone to help with your regular activities. Medicines Take xcxn-thk-jljpzko and prescription medicines only as told by your health care provider. Do not take aspirin because it can cause bleeding. General instructions Do not use tampons or douche. Keep all follow-up visits. This is important. Contact a health care provider if: You have vaginal bleeding during any time of your . You have cramps or labor pains. You have a fever that does not get better when you take medicines. Get help right away if: You have severe cramps in your back or abdomen. You have contractions. You have chills. Your bleeding increases or you pass large clots or a large amount of tissue from your vagina. You feel light-headed or weak, or you faint. You are leaking fluid or have a gush of fluid from your vagina. Summary A small amount of bleeding, or spotting, from the vagina is common during early . Many things can cause vaginal bleeding during . Tell your health care provider about any bleeding right away. Try to understand when bleeding occurs. Does bleeding occur on its own, or does it occur after something is done, such as sex or pelvic exams? Follow instructions from your health care provider about limiting your activity. Ask what activities are safe for you. Keep all follow-up visits. This is important. This information is not intended to replace advice given to you by your health care provider. Make sure you discuss any questions you have with your health care provider. Document Revised: 02/08/2021 Document Reviewed: 02/08/2021 [employer] Patient Education 2022 [employer] 10/26/2023 03:10:04 Back Pain in Back Pain in Back pain during is common. Back pain may be caused by several factors that are related to changes during your , including: Your growing baby and uterus. This may result in a changing center of gravity and cause your abdominal muscles to weaken. hormones, which may cause the ligaments of the pelvis to relax. Weight gain during . Your posture or position. Follow these instructions at home: Managing pain and stiffness If directed, put ice on the painful area. To do this: ?Put ice in a plastic bag. ?Place a towel between your skin and the bag. ?Leave the ice on for 20 minutes, 2 3 times per day. ?Remove the ice if your skin turns bright red. This is very important. If you cannot feel pain, heat, or cold, you have a greater risk of damage to the area. If directed, apply heat to the affected area before you exercise. Use the heat source that your health care provider recommends, such as a moist heat pack or a heating pad. ?Place a towel between your skin and the heat source. ?Leave the heat on for 20 30 minutes. ?Remove the heat if your skin turns bright red. This is especially important if you are unable to feel pain, heat, or cold. You may have a greater risk of getting burned. If directed, massage the affected area. Activity Exercise as told by your health care provider. Gentle exercise is the best way to prevent or manage back pain. Listen to your body when lifting. If lifting hurts, ask for help. Squat down when picking up something from the floor. Do not bend over. Squatting uses your leg muscles instead of your back muscles. Only use bed rest for short periods as told by your health care provider. Bed rest should only be used for the most severe episodes of back pain. Standing, sitting, and lying down Do not lining maker one place for long periods of time. Use good posture when sitting. Make sure your head rests over your shoulders and is not hanging forward. Use a pillow on your lower back if necessary. Try sleeping on your side with a support pillow or one or two regular pillows between your legs. It may be best to sleep on your left side. If you have back pain after a night's rest, your bed may be too soft. A firm mattress may provide more support for your back during . General instructions Take joob-bli-zdeelke and prescription medicines only as told by your health care provider. Use a maternity girdle, elastic sling, or back brace as told by your health care provider. Work with a physical therapist or massage therapist to find ways to manage back pain. Acupuncture or massage therapy may be helpful. Eat a healthy diet. Try to gain weight within your health care provider's recommendations. Do not wear high heels. Keep all follow-up visits. This is important. Contact a health care provider if: Your back pain interferes with your daily activities. You have back pain on one side of your back. You have increasing pain in other parts of your body. You have numbness, tingling, weakness, or problems with the use of your arms or legs. You have numbness that travels down one or both of your legs. You have nausea, vomiting, or sweating. Get help right away if: You develop any of the following: ?Shortness of breath, dizziness, or fainting. ?Severe back pain that is not controlled with medicine. ?Changes in bowel or bladder control, or you see blood in your urine. You have back pain that is a rhythmic, cramping pain similar to labor pains. Labor pains are usually 2 minutes apart, last for about 1 minute, and involve a bearing down feeling or pressure in your pelvis. You have back pain and your water breaks or you have bleeding from your vagina. Your back pain developed after you fell. These symptoms may represent a serious problem that is an emergency. Do not wait to see if the symptoms will go away. Get medical help right away. Call your local emergency services (911 in the [place] Do not drive yourself to the hospital. Summary Back pain may be caused by several factors that are related to changes during your . Follow instructions as told by your health care provider for managing back pain. Take oave-idx-qkgejps and prescription medicines only as told by your health care provider. Exercise as told by your health care provider. Gentle exercise is the best way to prevent or manage back pain. Keep all follow-up visits. This is important. This information is not intended to replace advice given to you by your health care provider. Make sure you discuss any questions you have with your health care provider. Document Revised: 08/01/2021 Document Reviewed: 08/01/2021 [employer] Patient Education 2022 [employer] Follow Up Care 10/25/2023 23:39:34 With:Chung YOUSIF Address: [address] , [place] [address]- Business (1) When:11/04/2023 [facility] 10-25-2023 Evaluation + Plan note Diagnostic Tests PendingUrine Culture 10/25/23 [facility] 07-17-2023 History of Presen t illness Narrative Reason for Appointment: Patient ID: Teodoro Upton is a 23 y.o. female who presents for Routine Visit Patient presents today for Return OB appointment. Current Medications: has a current medication list which includes the following prescription(s): amakzyve-pgv-ie-fa and promethazine. Medical History: Active Ambulatory Problems Diagnosis Date Noted No Active Ambulatory Problems Resolved Ambulatory Problems Diagnosis Date Noted No Resolved Ambulatory Problems Past Medical History: Diagnosis Date ADD (attention deficit disorder) Asthma ([facility]) Family History Problem Relation Name Age [...] Chung Yousif DO documented in this encounter [facility] 07-03-2023 History of Presen t illness Narrative [...] Problems Past Medical History: Diagnosis Date Asthma ([facility]) No family history on file. Social History [...] raw or undercooked meat, stay away from [facility], do not change litter boxes, eat [...] Sarina Kilgore LPN documented in this encounter [facility] Healthcare Evaluation note No assessment inform ation available [facility] Work Phone: Evaluation note Diagnosis Missed menses Nausea and vomiting, unspecified vomiting type documented in this encounter [facility] HealthcareEvaluation note* Diagnosis First trimester state, incidental Vaginal bleeding in Threatened miscarriage Threatened , unspecified as to episode of care with uncertain viability, single or unspecified fetus documented in this encounter [facility] HealthcareHospital course Narrative No data available for this section [facility] Additional Instructions Please follow up as we discussed so you can have your concerns further evaluated.[facility] Work Phone: Progress note No data available for this section [facility] Discharge Instructions * Instructions* Brenda Stoner, - 07/08/2020 [facility] ED Clinic List Healthcare Providers Services Day of Week/ Hours [place] [facility] [address] [facility] Pediatric Primary Care Adult Primary Care CONTINUOUS MINING OPERATOR//Specialty Clinics Friday 8:00a 4:30p [address] Adult Medicine, Pediatrics, CONTINUOUS MINING OPERATOR Friday 8:30a 4:30p [facility] Surgery [address] [facility] Friday 8:30a 11:00a [facility] [address] [facility] Adult Internal Medicine ([facility]) CONTINUOUS MINING OPERATOR Clinic Pediatric Clinic Friday, Friday, , Friday 8:00a 4:30p Friday 1:00p 4:30p Friday, Friday, 8:00a 5:00p; Friday 8:00a 12:30p Friday 1p 4p Friday, Friday, , Friday 8:30a 4:15p Friday 12:30p 4:15p Health Department [facility] [address] [facility] Pediatric Primary Care Adult Primary Care OB/ Friday, Friday 8a 12p 8a 4:45p [facility] [address] [facility] [address] [facility] # Pre & Post Adoption Counseling Support / nutrition Care Reward Incentive Program [facility] Fri, , Fri, Fri 10:00a 4:30p Thur 10:00a 7:30p E [facility] Location Friday - Friday 10a 4:30p [facility] CONTINUOUS MINING OPERATOR [address] [facility] Adult Internal Medicine [address] [facility] [address] [facility], [address] Neuro / Headache [address] [facility] Friday 8:30a 5p [facility] [address] [facility] Fri, , , Fri 9:00a 4:30p Wed 1:00p 4:30p [facility] [address] [facility] [address] [facility] Friday 8:30a 5:00p [facility] [address] [facility] [address] Burn/Plastic, ENT, GI, Orthopedics, Surgical / Trauma, Urology, Vascular Friday 8:00 4:30p Call for an appointment [facility] [address] [facility] Adult Medicine, Eye Clinic, Dental Patient must be certified homeless Under age 18 not accepted Friday 8:00 4:30p [facility] [address] [facility] Practice OB Friday, Friday, Friday, Friday 9a 5p 9a 6p Friday (OB only) [facility] [address] [facility] OB/ Friday 11a 7p , 9a 5p Friday 8a 4p 1st Friday 9a 1p Podiatry Clinic [address] [facility] [address] Friday 8:00 4:30 p Center [facility] [address] Free nurse visits [place] programs Counseling Class Call or walk in [facility] [address] [place] Various Clinics 8a 5:30p [facility] Family Medicine [facility] [address] [facility], [address] Family Practice Friday 8a 4:30p [facility] [address] [place] [address] [id number] [address] [place], [place] [id number] Friday 8a 4:30p Friday 8a 4:30p 8a 8p Outpatient Clinics [facility] [address] [place] [address] Friday 9a 5p Diabetic Education Services Call for an appointment [facility] [address] [facility] Friday 8:30a 4p Dental Services [facility] [address] [place] [address] Must have source of income and must bring (2) recent check stubs to appointment By appointment only [facility] [address] Patient must be homeless, call for eligibility guidelines. Under age 18 NOT accepted Days and hours vary (Doors open at 8:30a day of week varies) Call for an appointment Miscellaneous Information [facility] Call for Help [phone] Call for an appointment H.E.L.P (Hospital Eligibility Link Program) toll free For financial assistance * Attachments The following attachments cannot be sent through Care Everywhere. * Bacterial Vaginosis (Romanian) * UTI (Urinary Tract Infection): Female (Romanian) * Vitamin D: General Info (Romanian) documented in this encounter Assessments Diagnosis BV (bacterial vaginosis)- Primary Vaginitis and vulvovaginitis, unspecified Vaginal bleeding Other specified noninflammatory disorder of vagina Hypomagnesemia Disorders of magnesium metabolism Vitamin D deficiency Unspecified vitamin D deficiency Acute cystitis with hematuria Acute cystitis Summary Purpose Family History No Family History Records FoundNo Family History Records FoundNo Family History Records Found No data available for this section No Family History Records FoundNo Family History [...] section and content) DATE CREATED AUTHOR 07/16/2020 [facility] DATE CREATED AUTHOR AUTHOR'S ORGANIZ ATION 09/07/2022 [facility] DATE CREATED AUTHOR AUTHOR'S ORGANIZ ATION 03/13/2023 [facility] DATE CREATED AUTHOR AUTHOR'S ORGANIZ ATION 10/27/2023 [facility] DATE CREATED AUTHOR AUTHOR'S ORGANIZ ATION 10/31/2023 [place] [facility] DATE CREATED AUTHOR AUTHOR'S ORGANIZ ATION 11/05/2023 [facility] EPIC Care Teams (unrecognized sec tion and content) Team Status: Inactive Member Role Status Dates PHYSICIAN NO FAMILY Primary Care Provider Active Anders Sesay Jr, MD Emergency Provider Active Team Status: Active Member Role Status Dates PHYSICIAN NO FAMILY Primary Care Provider Active Goals (unrecognized section and content) Goals may be documented in a n alternate section No data available for this section FOR RECORDS PERTAINING TO PATIENTS WHO [...] BE BASED ON THE PRIMARY CLINICAL RECORDS. [facility] [employer] [facility]. provides no warranty or guarantee of the accuracy or completeness of information in this document.
[2023-11-20 19:18] LABS: Basophils Percent Auto 0.2 % (0.2-2.0); Eosinophils Absolute Auto 0.1 10^3/uL (0.0-0.7); Eosinophils Percent Auto 0.6 % (0.9-7.0); Hematocrit 33.5 % (36.0-48.0); Hemoglobin 11.4 g/dL (12.0-16.0); Immature Granulocytes Abs Auto 0.03 10^3/uL (0.00-0.03); Immature Granulocytes Pct Auto 0.3 % (0.0-0.5); Lymphocytes Absolute Auto 1.4 10^3/uL (1.2-3.8); Lymphocytes Percent Auto 13.4 % (20.5-60.0); Mean Corpuscular Hemoglobin 28.9 pg (26.7-34.0); Mean Platelet Volume 10.6 fL (9.5-13.5); Monocytes Absolute Auto 0.7 10^3/uL (0.3-0.8); Monocytes Percent Auto 6.2 % (1.7-12.0); Neutrophils Absolute Auto 8.4 10^3/uL (1.4-6.5); Neutrophils Percent Auto 79.3 % (43.0-75.0); Platelet Count 332 10^3/uL (150-450); Red Blood Count 3.94 10^6/uL (4.20-5.40); Red Cell Distribution Width 12.8 % (11.0-15.0); White Blood Count 10.6 10^3/uL (4.0-11.0)
[2023-11-20] MEDS: 0.9 % SODIUM CHLORIDE 1,000 ML 999 ML IV (19:25)
[2023-11-20 19:27] LABS: Carbon Dioxide 22.6 mmol/L (21.0-32.0); Chloride 103 mmol/L (98-107); Potassium 3.6 mmol/L (3.5-5.1); Sodium 134 mmol/L (136-145)
== END 2023-11-20 20:25 | disposition home or self-care (01) ==
PROVIDERS: Admitting Provider Obstetrics & Gynecology; Visit Provider Obstetrics & Gynecology
DX: O26.893 Other specified pregnancy related conditions, third trimester (principal); R19.7 Diarrhea, unspecified; R10.9 Unspecified abdominal pain; Z3A.28 28 weeks gestation of pregnancy
CPT/HCPCS: 36415; 80051; 85025; 96360; G0378; G0379

== ENCOUNTER 2023-12-03 14:28 | Outpatient (OUT) | payer MEDICAID, SELFPAY ==
--- NOTE | 2023-12-03 14:30 | US_ITS ---
[address] [address] Patient Name: TEODORO HERNANDES MRN: [id number] date: 2000 Sex: F Assigned Patient Location: [facility] Current Patient Location: [facility] Accession/Order Number: [id number] Exam Date: 12/03/2023 14:31 Report Date: 12/03/2023 15:48 At the request of: CHUNG MAGDALENO Procedure: US OB growth EXAMINATION: US OB growth HISTORY: SIZE INCONSISTENT WITH DATES COMPARISON: Ultrasound OB anatomy 10/01/2023 FINDINGS: Heart Rate: 144 bpm Amniotic Fluid Volume: 14.3 cm Number: 1 Position: CEPHALIC BIOMETRY: BPD: 7.65 cm cm; 30 weeks 5 days; 64.60 %% HC: 28.37 cm cm; 31 weeks 1 day; 52.20 %% AC: 28.57 cm cm; 32 weeks 4 days; >97 %% FL: 5.93 cm cm; 30 weeks 6 days; 65.80 %% EFW: 1920.91 g; 94 % FL/AC: 20.76 FL/BPD: 77.52 HC/AC: 0.99 GESTATIONAL AGE: Age by EDC: 29 weeks 6 days ROGER by EDC: [birth year]24[birth year]02[birth year]12 Age by US: 30 weeks 6 days ROGER by US: [birth year]24-02-05 US/US OB growth IMPRESSION: 1. Single live intrauterine with growth detailed above. 2. Abdominal circumference is greater than 97th percentile. 3. Prominent renal pelvis bilaterally, 10 mm in width on the right, 5 mm on the left. Electronically authenticated by: ZURI VITALE Date: 12/03/2023 15:48
--- OUTSIDE RECORDS SUMMARY | 2023-12-03 14:51 | XMS_ITS | CCD ---
Demographics Address [address] [place] [address] Preferred Language en Marital Status Single Gnosticist Affiliation Unknown Race Unknown Ethnic Group Not or Lati no Author Organization [place] [facility] INSIDE FINISHER [facility] Care Team Providers Care Field Marketing Manager Name Role Phone Unavailable Primary Care Provider UnavailDAVID Ayers Attending Unavailable NO FAMILY, PHYSICIAN Primary Care Provider Unava MD Anders Tse Jr Emergency Provider PAY ., DR GREGORY Admitting Unavailable PAY ., DR GREGORY Consulting Unavailable REQUEST, DR IBRAHIM LISTED Primary Care Unavaila ble PAY ., DR GREGORY Attending Unavailable SEKOULISAPADDY Consulting Unavailable PAY ., DR GREGORY Attending Unavailable PAY ., DR GREGORY Admitting Unavailable GRECHNY ., AMAYA FRANCISCO Consulting Unavailsaadia e REQUEST, DR IBRAHIM LISTED Primary Care Unavaila ble MARKER ., DR JERNIGAN Attending Unavailable MARKER ., DR JERNIGAN Admitting Unavailable MISC, DR VAN Primary Care Unavailable MARKER ., DR JERNIGAN Consulting Unavailable STRAWSER, L[facility] Consulting Unavailable NO FAMILY, PHYSICIAN Primary Care Unavailable Anders Sesay Jr Attending Unavailable Anders Sesay Jr Admitting Unavailable Unavailable Primary Care Provider Unavailsaadia barnes NONE, XXXX Primary Care Physician Unavailab Fuentes [...] Propensity to adverse reactions to drug 07-07-2020 [facility] [place], [place] Medications Current Medications Medication Drug Class(es) [...] Refill(s) 0 Start Date: 10/26/23 Status: Ordered [id number]-Uvo-Dg-FA ( 1 + IRON PO) (4 sources) [id number]-Ccu-Jx-FA ( 1 + IRON PO) Take by [...] 07-08-2020 magnesium oxide (MAG-OX) tablet 400 mg Problems Active Problems Problem Classification Problem Date [...] Range Facility Nursing Assessmenton 024 Nursing Assessment [id number] 2#1.00TIFF Normal [facility] C Urineon 10-28-2023 Bacteria identified Cx Nom [...] Locations R1: This test was performed at: [facility], [address] [place] [address], [address]- , , [facility] Comment on above: Performed By: #### 2 [id number] #### [facility] [address] [place] [address] Consent for Treatmenton 10-01 Consent for Treatment [id number] #1.00TIFF [facility] Discharge Instructionson Discharge Instructions [id number] 7#1.00TIFF [facility] Inpatient Clinical Summaryon 10-26-2023 Inpatient Clinical Summary [address] [address] Clinical Summary Person Information Name: TEODORO UPTON/[facility] Age: 23 Years : 2000 Sex: Female PCP: NONE, XXXX Marital Status: Single Phone: [phone] Race: or Ethnicity: Non- or Language: [place] Visit Id: Visit Reason: 24 WEEKS BLEEDING Speciality: Acuity: Obs Enc Type: OB Triage Med Service: Obstetrics Arrival: 10/25/2023 23:36:04 Discharge: 10/26/2023 03:30:56 Dispo Type: Home (Routine DC) Address: [facility] [address] [facility] [id number] Provider Notes: Diagnosis: Problems Active (10/26/2023) Smoker [...] Referring Physician: Follow up: With: Address: When: [facility], [address] [place] [address] [place] [address] Business (1) In 9 days 11/04/2023 Patient Education Information: and Urinary Tract Infection; Vaginal Bleeding During , Second Trimester; Back Pain in Normal [facility] Inpatient Patient Summaryon 10-26-2023 Inpatient Patient Summary [address] [address] Patient Discharge Instructions PERSON INFORMATION [...] results: Follow up: With: Address: When: [facility], [address] [place] [address] , [place] [address] Business (1) In 9 days 11/04/2023 In the event that this physician does not participate in your insurance network, please consult with your insurance company to find a nearby participating provider. Comment: Erasmo TEODORO UPTON, have received the attached patient education materials/instructio [...] Always wi (more content not included)... Normal [facility] Insurance Correspondenceon 0 10-26-2023 Insurance Correspondence [id number] 8#1.00TIFF Normal [facility] UA with Cult Rflxon 10-26-19 24 Bacteria Auto Ql (U) Trace Normal Trace Fish er [facility] Comment on above: Performed By: #### 4 [id number] #### [facility] [address] [place] [address] Bilirubin Ql (U) Negative Normal Negative [facility] Comment on above: Performed By: #### 4 [id number] #### [facility] [address] [place] [address] Clarity (U) Turbid Abnormal Clear [facility] Comment on above: Performed By: #### 4 [id number] #### [facility] [address] [place] [address] Color (U) Yellow Normal Yellow [facility] Comment on above: Result Comment: Micr oscopic readings are only performed on those samples that meet specific criteria set forth by [facility]. Performed By: #### 4 [id number] #### [facility] [address] [place] [address] Epithelial cells.squamous Auto (Urine sed) [#/Area] 5-8 Abnormal 0-2 [facility] Comment on above: Performed By: #### 4 [id number] #### [facility] [address] [place] [address] Glucose Ql (U) Negative Normal Negative [facility] Comment on above: Performed By: #### 4 [id number] #### [facility] [address] [place] [address] Hemoglobin Auto test strip (U) [Mass/Vol] Negative Normal Negative [facility] Comment on above: Performed By: #### 4 [id number] #### [facility] [address] [place] [address] Hyaline casts LM Ql (Urine sed) 0-3 Normal 0-3 [facility] Comment on above: Performed By: #### 4 [id number] #### [facility] [address] [place] [address] Ketones Auto test strip Ql (U) Negative Normal Negative [facility] Comment on above: Performed By: #### 4 [id number] #### [facility] [address] [place] [address] Leukocyte esterase Auto test strip Ql (U) 500 Gerald/uL Abnormal Negative [facility] Comment on above: Performed By: #### 4 [id number] #### [facility] [address] [place] [address] Mucus Auto Ql (U) Trace Normal Negative [facility] Comment on above: Performed By: #### 4 [id number] #### [facility] [address] [place] [address] Nitrite Auto test strip Ql (U) Negative Normal Negative [facility] Comment on above: Performed By: #### 4 [id number] #### [facility] [address] [place] [address] pH (U) 6.0 [pH] Invalid Interpretation Code 5.0-9.0 [facility] Comment on above: Performed By: #### 4 [id number] #### [facility] [address] [place] [address] Protein Ql (U) Trace Abnormal Negative [facility] Comment on above: Performed By: #### 4 [id number] #### [facility] [address] [place] [address] RBC Ql (U) 4-20 Abnormal 0-3 [facility] Comment on above: Performed By: #### 4 [id number] #### [facility] [address] [place] [address] Specific gravity (U) [Rel density] 1.030 Invalid Interpretation Code 1.005-1.030 [facility] Comment on above: Performed By: #### 4 [id number] #### [facility] [address] [place] [address] Urobilinogen (U) [Mass/Vol] Negative Normal Negative [facility] Comment on above: Performed By: #### 4 [id number] #### [facility] [address] [place] [address] WBC Auto (Urine sed) [#/Area] 16-25 Abnormal 0-5 [facility] Comment on above: Performed By: #### 4 [id number] #### [facility] [address] [place] [address] Type of Urine collection method Clean Catch Normal [facility] Comment on above: Performed By: #### 4 [id number] #### [facility] [address] [place] [address] URINALYSISOrdered By: SYSTEM SYSTEM on 10-25-2023 Bacteria Auto Ql (U) Trace /HPF Normal Trace/HPF [facility] UA Auto SS Bilirubin Ql (U) Negative Normal Negativemg/ d L [facility] UA Auto SS Clarity (U) Turbid *ABN* (10/25/23 11:53 PM) Invalid Interpretation Code Clear [facility] UA Auto SS Color (U) Yellow 1 (10/25/23 11:53 PM) Normal Yellow [facility] UA Auto SS Comment on above: Interpretive Data: M icroscopic readings are only performed on those samples that meet specific criteria set forth by [facility]. Epithelial cells.squamous Auto (Urine sed) [#/Area] 5-8 graded/HPF Invalid Interpretation Code 0-2graded/HP F [facility] UA Auto SS Glucose Ql (U) Negative Normal Negativemg/d L [facility] UA Auto SS Hemoglobin Auto test strip (U) [Mass/Vol] Negative Normal Negativemg/d L [facility] UA Auto SS Hyaline casts LM Ql (Urine sed) 0-3 graded/LPF Normal 0-3graded/LP F [facility] UA Auto SS Ketones Auto test strip Ql (U) Negative Normal Negativemg/d L [facility] UA Auto SS Leukocyte esterase Auto test strip Ql (U) 500 Gerald/uL Gerald/uL Invalid Interpretation Code NegativeLeu/ uL [facility] UA Auto SS Mucus Auto Ql (U) Trace graded/LPF Normal Negati vegrad ed/LPF [facility] UA Auto SS Nitrite Auto test strip Ql (U) Negative Normal Negativemg/d L [facility] UA Auto SS pH (U) 6.0 *NA* (10/25/23 11:53 PM) Invalid Interpretation Code 5.0 - 9.0 [facility] UA Auto SS Protein Ql (U) Trace mg/dL Invalid Interpretation Code Negativemg/d L [facility] UA Auto SS RBC Ql (U) 4-20 graded/HPF Invalid Interpretation Code 0-3graded/HP F [facility] UA Auto SS Specific gravity (U) [Rel density] 1.030 *NA* (10/25/23 11:53 PM) Invalid Interpretation Code 1.005 - 1.030 [facility] UA Auto SS Urobilinogen (U) [Mass/Vol] Negative Normal Negativemg/d L [facility] UA Auto SS WBC Auto (Urine sed) [#/Area] 16-25 graded/HPF Invalid Interpretation Code 0-5graded/HP F [facility] U[facility] Auto SS URINALYSISOrdered By: Elijah Hernandez on 10-25-2023 UA Spec Desc Clean Catch (10/25/23 11:53 PM) Normal [facility] U[facility] Auto SS Urinalysis macro (dipstick) panel (U)on 07-17-2023 Bilirubin, UA Negative Negative - 4(70) +++ mg/dL [facility] Blood, UA Negative Negative - 50 William/mcL [facility] Healthcare Clarity, UA Clear [facility] Healthcare Color, UA Yellow [facility] Glucose, UA Negative Negative - 1999(110) ++++ mg/dL [facility] Interpretation and review of laboratory results Abnormal [facility] Ketones, UA Negative Negative - 160(16) ++++ mg/dL [facility] Leukocytes, UA Positive Negative - 500+++ Gerald/mcL [facility] Nitrite, UA Negative Negative - Positive [facility] pH, UA 7.0 5 - 9 [facility] Protein, UA Negative Negative - 1999(20) ++++ mg/dL [facility] Spec Grav, UA 1.020 1 - 1.03 [facility] Urobilinogen, UA 0.2 0.2 - 12 mg/dL [facility] HCG ( test) Ql (U)o n 07-03-2023 Interpretation and review of laboratory results Abnormal [facility] Preg Test, Ur Negative [facility] Urinalysis macro (dipstick) panel (U)on 07-03-2023 Bilirubin, UA Negative Negative - 4(70) +++ mg/dL [facility] Blood, UA Negative Negative - 50 William/mcL [facility] Healthcare Clarity, UA Clear [facility] Color, UA Yellow [facility] Glucose, UA Negative Negative - 1999(110) ++++ mg/dL [facility] Interpretation and review of laboratory results Normal [facility] Ketones, UA Negative Negative - 160(16) ++++ mg/dL [facility] Leukocytes, UA Negative Negative - 500+++ Gerald/mcL [facility] Nitrite, UA Negative Negative - Positive [facility] pH, UA 5.5 5 - 9 [facility] Protein, UA Negative Negative - 1999(20) ++++ mg/dL [facility] Spec Grav, UA 1.010 1 - 1.03 [facility] Urobilinogen, UA 1.0 0.2 - 12 mg/dL [facility] XR FOOT RT MIN 3 [...] PADDY SAPP Date: 2022-08-30 14:42 Normal [facility] CBC AUTO DIFFon 06-28-2022 BASO # 0.0 103/ul Normal 0.0-0.1 [facility] Comment on above: Performed By: #### C BC #### [facility] [address] [place] [address] Dr. Jerald Poon Basophils/100 WBC (Bld) 0.3 % Normal 0.2-2.0 [facility] Comment on above: Performed By: #### C BC #### [facility] [address] [place] [address] Dr. Jerald Poon EO # 0.1 103/ul Normal 0.0-0.7 [facility] Comment on above: Performed By: #### C BC #### [facility] [address] [place] [address] Dr. Jerald Poon Eosinophils/100 WBC (Bld) 1.1 % Normal 0.9-7.0 [facility] Comment on above: Performed By: #### C BC #### [facility] [address] [place] [address] Dr. Jerald Poon Erythrocyte distribution width (RBC) [Ratio] 14.5 % Normal 11.0-15.0 [facility] Comment on above: Performed By: #### C BC #### [facility] [address] [place] [address] Dr. Jerald Poon Hematocrit (Bld) [Volume fraction] 36.7 % Normal 36.0-48.0 [facility] Comment on above: Performed By: #### C BC #### [facility] [address] [place] [address] Dr. Jerald Poon Hemoglobin (Bld) [Mass/Vol] 13.0 g/dL Normal 12.0-16.0 [facility] Comment on above: Performed By: #### C BC #### [facility] [address] [place] [address] Dr. Jerald Poon IG # 0.04 10e3/ul Critically high 0.00-0.03 [facility] Comment on above: Performed By: #### C BC #### [facility] [address] [place] [address] Dr. Jerald Poon IG % 0.3 % Normal 0.0-0.5 [facility] Comment on above: Performed By: #### C BC #### [facility] [address] [place] [address] Dr. Jerald Poon LYMPH # 3.0 103/ul Normal 1.2-3.8 [facility] Comment on above: Performed By: #### C BC #### [facility] [address] [place] [address] Dr. Jerald Poon Lymphocytes/100 WBC (Bld) 26.2 % Normal 20.5-60.0 [facility] Comment on above: Performed By: #### C BC #### [facility] [address] [place] [address] Dr. Jerald Poon MANUAL DIFF REQ NO Normal [facility] Comment on above: Performed By: #### C BC #### [facility] [address] [place] [address] Dr. Jerald Poon MCH (RBC) [Entitic mass] 27.1 pg Normal 26.7-34.0 [facility] Comment on above: Performed By: #### C BC #### [facility] [address] [place] [address] Dr. Jerald Poon MCHC (RBC) [Mass/Vol] 35.4 g/dL Critically high 29.9-35.2 [facility] Comment on above: Performed By: #### C BC #### [facility] [address] [place] [address] Dr. Jerald Poon MCV (RBC) [Entitic vol] 76.6 fL Critically low 81.0-99.0 [facility] Comment on above: Performed By: #### C BC #### [facility] [address] [place] [address] Dr. Jerald Poon MONO # 0.8 103/ul Normal 0.3-0.8 [facility] Comment on above: Performed By: #### C BC #### [facility] [address] [place] [address] Dr. Jerald Poon Monocytes/100 WBC (Bld) 7.0 % Normal 1.7-12.0 [facility] Comment on above: Performed By: #### C BC #### [facility] [address] [place] [address] Dr. Jerald Poon NEUT # 7.5 103/ul Critically high 1.4-6.5 [facility] Comment on above: Performed By: #### C BC #### [facility] [address] [place] [address] Dr. Jerald Poon Neutrophils/100 WBC (Bld) 65.1 % Normal 43.0-75.0 [facility] Comment on above: Performed By: #### C BC #### [facility] [address] [place] [address] Dr. Jerald Poon Platelet mean volume (Bld) [Entitic vol] 10.0 fL Normal 9.5-13.5 [facility] Comment on above: Performed By: #### C BC #### [facility] [address] [place] [address] Dr. Jerald Poon PLT 387 103/ul Normal 150-450 [facility] Comment on above: Performed By: #### C BC #### [facility] [address] [place] [address] Dr. Jerald Poon RBC 4.79 106/ul Normal 4.20-5.40 [facility] Comment on above: Performed By: #### C BC #### [facility] [address] [place] [address] Dr. Jerald Poon WBC 11.6 103/ul Critically high 4.0-11.0 [facility] Comment on above: Performed By: #### C BC #### [facility] [address] [place] [address] Dr. Jerald Poon CULTURE URINEon 06-28-2022 CULTURE URINE Culture Observations: LIGHT GROWTH OF MIXED GENITAL ZACARIAS. NO POTENTIAL PATHOGENS SEEN. Normal [facility] Comment on above: Performed By: #### U RCX #### [facility] [address] [place] [address] Dr. Jerald Poon ER URINE PROFILEon 3 Bilirubin Ql (U) Negative Normal NEGATIVE [facility] Comment on above: Performed By: #### U MICRO, ERUR #### [facility] [address] [place] [address] Dr. Jerald Poon Clarity (U) CLEAR Normal CLEAR [facility] Comment on above: Performed By: #### U MICRO, ERUR #### [facility] [address] [place] [address] Dr. Jerald Poon Color (U) YELLOW Normal YELLOW [facility] Comment on above: Performed By: #### U MICRO, ERUR #### [facility] [address] [place] [address] Dr. Jerald Poon ERUAHD A micrscopic examination will be performed if indicated. Normal [facility] Comment on above: Performed By: #### U MICRO, ERUR #### [facility] [address] [place] [address] Dr. Jerald Poon Glucose Ql (U) Negative Normal NEGATIVE [facility] Comment on above: Performed By: #### U MICRO, ERUR #### [facility] [address] [address] [address] Jerald Poon Hemoglobin Ql (U) Negative Normal NEGATIVE [facility] Comment on above: Performed By: #### U MICRO, ERUR #### [facility] [address] [place] [address] Dr. Jerald Poon Ketones Ql (U) 40 mg/dl Abnormal NEGATIVE [facility] Comment on above: Performed By: #### U MICRO, ERUR #### [facility] [address] [place] [address] Dr. Jerald Poon LEUKOCYTES TRACE Abnormal NEGATIVE [facility] Comment on above: Performed By: #### U MICRO, ERUR #### [facility] [address] [place] [address] Dr. Jerald Poon Nitrite Ql (U) Negative Normal NEGATIVE [facility] Comment on above: Performed By: #### U MICRO, ERUR #### [facility] [address] [place] [address] Dr. Jerald Poon pH (U) 6.0 [pH] Normal 5-9 [facility] Comment on above: Performed By: #### U MICRO, ERUR #### [facility] [address] [place] [address] Dr. Jerald Poon SPEC GRAVITY >=1.030 Abnormal 1.005-<=1.02 5 [facility] Comment on above: Performed By: #### U MICRO, ERUR #### [facility] [address] [place] [address] Dr. Jerald Poon UA PROTEIN Negative Normal NEGATIVE/ TRACE [facility] Comment on above: Performed By: #### U MICRO, ERUR #### [facility] [address] [place] [address] Dr. Jerald Poon UR MICRO IND INDICATED Normal [facility] Comment on above: Performed By: #### U MICRO, ERUR #### [facility] [address] [place] [address] Dr. Jerald Poon Urobilinogen Qn (U) 0.2 {Lyly'U}/dL Normal 0.2 - 1. 0 [facility] Comment on above: Performed By: #### U MICRO, ERUR #### [facility] [address] [address] [address] Jerald Poon PREG QUANT HCGon 06-28-2022 HCG QUANT <1 Normal [facility] Comment on above: Performed By: #### P REGQNT #### [facility] [address] [place] [address] Dr. Jerald Poon HCG RANGE SEE BELOW Normal [facility] Comment on above: Result Comment: 5-50 0.2-1 WEEK 50-500 1-2 WEEKS 100-5,000 2-3 WEEKS 500-10,000 3-4 WEEKS 1,000-50,000 4-5 WEEKS 10,000-100,000 5-6 WEEKS 15,000-200,000 6-8 WEEKS 10,000-100,000 2-3 MONTHS Performed By: #### P REGQNT #### [facility] [address] [place] [address] Dr. Jerald Poon PROF CHEM 8 (BAS METB)on Anion gap [Moles/Vol] 14.0 mmol/L Normal [facility] Comment on above: Performed By: #### C BC #### [facility] [address] [place] [address] Dr. Jerald Poon Calcium [Mass/Vol] 9.6 mg/dL Normal 8.5-10.1 [facility] Comment on above: Performed By: #### C BC #### [facility] [address] [place] [address] Dr. Jerald Poon Chloride [Moles/Vol] 101 mmol/L Normal 98-107 [facility] Comment on above: Performed By: #### C BC #### [facility] [address] [place] [address] Dr. Jerald Poon CO2 [Moles/Vol] 25.4 mmol/L Normal 21.0-32.0 [facility] Comment on above: Performed By: #### C BC #### [facility] [address] [place] [address] Dr. Jerald Poon Creatinine [Mass/Vol] 0.92 mg/dL Normal 0.55-1.02 [facility] Comment on above: Performed By: #### C BC #### [facility] [address] [address] [address] Jerald Poon EGFR-AF CITIZEN OF [place] >60 Normal >=60 [facility] Comment on above: Performed By: #### C BC #### [facility] [address] [address] [address] Jerald Poon EGFR-NON AF CITIZEN OF [place] >60 Normal >=60 [facility] Comment on above: Performed By: #### C BC #### [facility] [address] [address] [address] Jerald Poon Glucose [Mass/Vol] 101 mg/dL Normal 74-106 [facility] Comment on above: Performed By: #### C BC #### [facility] [address] [place] [address] Dr. Jerald Poon Potassium [Moles/Vol] 3.4 mmol/L Critically low 3.5-5.1 [facility] Comment on above: Performed By: #### C BC #### [facility] [address] [address] [address] Jerald Poon Sodium [Moles/Vol] 137 mmol/L Normal 136-145 [facility] Comment on above: Performed By: #### C BC #### [facility] [address] [address] [address] Jerald Poon Urea nitrogen [Mass/Vol] 11.0 mg/dL Normal 7.0-18.0 [facility] Comment on above: Performed By: #### C BC #### [facility] [address] [address] [address] Jerald Poon Urea nitrogen/Creatinine [Mass ratio] 12.0 mg/mg Normal [facility] Comment on above: Performed By: #### C BC #### [facility] [address] [place] [address] Dr. Jerald Poon TSHon 06-28-2022 TSH 1.319 uIU/mL Normal 0.358-3.740 [facility] Comment on above: Performed By: #### C BC #### [facility] [address] [place] [address] Dr. Jerald Poon URINE MICROSCOPIC ONLYon BACTERIA SMALL Abnormal NONE SEEN [facility] Comment on above: Performed By: #### U MICRO, ERUR #### [facility] [address] [place] [address] Dr. Jerald Poon Bacteria identified Cx Nom (U) INDICATED Normal [facility] Comment on above: Performed By: #### U MICRO, ERUR #### [facility] [address] [place] [address] Dr. Jerald Poon CAST NONE SEEN Normal NONE SEEN [facility] Comment on above: Performed By: #### U MICRO, ERUR #### [facility] [address] [place] [address] Dr. Jerald Poon Crystals LM Nom (Urine sed) NONE SEEN Normal NONE SEEN [facility] Comment on above: Performed By: #### U MICRO, ERUR #### [facility] [address] [place] [address] Dr. Jerald Poon Epithelial cells LM Ql (Urine sed) FEW Abnormal NONE SEEN /RARE [facility] Comment on above: Performed By: #### U MICRO, ERUR #### [facility] [address] [place] [address] Dr. Jerald Poon MUCOUS NONE SEEN Normal NONE SEEN [facility] Comment on above: Performed By: #### U MICRO, ERUR #### [facility] [address] [place] [address] Dr. Jerald Poon RBC NONE SEEN Abnormal 0-2 [facility] Comment on above: Performed By: #### U MICRO, ERUR #### [facility] [address] [place] [address] Dr. Jerald Poon WBC 2-5 Abnormal NONE SEEN [facility] Comment on above: Performed By: #### U MICRO, ERUR #### [facility] [address] [place] [address] Dr. Jerald Poon CBC AUTO DIFFon 04-01-2022 BASO # 0.0 103/ul Normal 0.0-0.1 [facility] Comment on above: Performed By: #### C BC #### [facility] [address] [place] [address] Dr. Jerald Poon Basophils/100 WBC (Bld) 0.5 % Normal 0.2-2.0 [facility] Comment on above: Performed By: #### C BC #### [facility] [address] [place] [address] Dr. Jerald Poon EO # 0.1 103/ul Normal 0.0-0.7 [facility] Comment on above: Performed By: #### C BC #### [facility] [address] [place] [address] Dr. Jerald Poon Eosinophils/100 WBC (Bld) 1.7 % Normal 0.9-7.0 [facility] Comment on above: Performed By: #### C BC #### [facility] [address] [place] [address] Dr. Jerald Poon Erythrocyte distribution width (RBC) [Ratio] 14.2 % Normal 11.0-15.0 [facility] Comment on above: Performed By: #### C BC #### [facility] [address] [place] [address] Dr. Jeradl Poon Hematocrit (Bld) [Volume fraction] 36.7 % Normal 36.0-48.0 [facility] Comment on above: Performed By: #### C BC #### [facility] [address] [place] [address] Dr. Jerald Poon Hemoglobin (Bld) [Mass/Vol] 12.1 g/dL Normal 12.0-16.0 [facility] Comment on above: Performed By: #### C BC #### [facility] [address] [place] [address] Dr. Jerald Poon IG # 0.01 10e3/ul Normal 0.00-0.03 [facility] Comment on above: Performed By: #### C BC #### [facility] [address] [place] [address] Dr. Jerald Poon IG % 0.1 % Normal 0.0-0.5 [facility] Comment on above: Performed By: #### C BC #### [facility] [address] [place] [address] Dr. Jerald Poon LYMPH # 2.3 103/ul Normal 1.2-3.8 [facility] Comment on above: Performed By: #### C BC #### [facility] [address] [place] [address] Dr. Jerald Poon Lymphocytes/100 WBC (Bld) 30.8 % Normal 20.5-60.0 [facility] Comment on above: Performed By: #### C BC #### [facility] [address] [place] [address] Dr. Jerald Poon MANUAL DIFF REQ NO Normal [facility] Comment on above: Performed By: #### C BC #### [facility] [address] [place] [address] Dr. Jerald Poon MCH (RBC) [Entitic mass] 27.3 pg Normal 26.7-34.0 [facility] Comment on above: Performed By: #### C BC #### [facility] [address] [place] [address] Dr. Jerald Poon MCHC (RBC) [Mass/Vol] 33.0 g/dL Normal 29.9-35.2 [facility] Comment on above: Performed By: #### C BC #### [facility] [address] [place] [address] Dr. Jerald Poon MCV (RBC) [Entitic vol] 82.7 fL Normal 81.0-99.0 [facility] Comment on above: Performed By: #### C BC #### [facility] [address] [place] [address] Dr. Jerald Poon MONO # 0.8 103/ul Normal 0.3-0.8 [facility] Comment on above: Performed By: #### C BC #### [facility] [address] [place] [address] Dr. Jerald Poon Monocytes/100 WBC (Bld) 10.6 % Normal 1.7-12.0 [facility] Comment on above: Performed By: #### C BC #### [facility] [address] [place] [address] Dr. Jerald Poon NEUT # 4.2 103/ul Normal 1.4-6.5 [facility] Comment on above: Performed By: #### C BC #### [facility] [address] [place] [address] Dr. Jerald Poon Neutrophils/100 WBC (Bld) 56.3 % Normal 43.0-75.0 [facility] Comment on above: Performed By: #### C BC #### [facility] [address] [place] [address] Dr. Jerald Poon Platelet mean volume (Bld) [Entitic vol] 10.2 fL Normal 9.5-13.5 [facility] Comment on above: Performed By: #### C BC #### [facility] [address] [place] [address] Dr. Jerald Poon PLT 375 103/ul Normal 150-450 [facility] Comment on above: Performed By: #### C BC #### [facility] [address] [place] [address] Dr. Jerald Poon RBC 4.44 106/ul Normal 4.20-5.40 [facility] Comment on above: Performed By: #### C BC #### [facility] [address] [place] [address] Dr. Jerald Poon WBC 7.5 103/ul Normal 4.0-11.0 [facility] Comment on above: Performed By: #### C BC #### [facility] [address] [place] [address] Dr. Jerald Poon ER URINE PROFILEon 2 Bilirubin Ql (U) Negative Normal NEGATIVE [facility] Comment on above: Performed By: #### C BC #### [facility] [address] [place] [address] Dr. Jerald Poon Clarity (U) CLEAR Normal CLEAR [facility] Comment on above: Performed By: #### C BC #### [facility] [address] [place] [address] Dr. Jerald Poon Color (U) YELLOW Normal YELLOW [facility] Comment on above: Performed By: #### C BC #### [facility] [address] [place] [address] Dr. Jerald CEBALLOS A micrscopic examination will be performed if indicated. Normal [facility] Comment on above: Performed By: #### C BC #### [facility] [address] [place] [address] Dr. Jerald Poon Glucose Ql (U) Negative Normal NEGATIVE [facility] Comment on above: Performed By: #### C BC #### [facility] [address] [place] [address] Dr. Jerald Poon Hemoglobin Ql (U) Negative Normal NEGATIVE [facility] Comment on above: Performed By: #### C BC #### [facility] [address] [place] [address] Dr. Jerald Poon Ketones Ql (U) Negative Normal NEGATIVE [facility] Comment on above: Performed By: #### C BC #### [facility] [address] [place] [address] Dr. Jerald Poon LEUKOCYTES Negative Normal NEGATIVE [facility] Comment on above: Performed By: #### C BC #### [facility] [address] [place] [address] Dr. Jerald Poon Nitrite Ql (U) Negative Normal NEGATIVE [facility] Comment on above: Performed By: #### C BC #### [facility] [address] [place] [address] Dr. Jerald Poon pH (U) 7.0 [pH] Normal 5-9 [facility] Comment on above: Performed By: #### C BC #### [facility] [address] [place] [address] Dr. Jerald Poon SPEC GRAVITY 1.025 Normal 1.005-<=1.02 5 [facility] Comment on above: Performed By: #### C BC #### [facility] [address] [place] [address] Dr. Jerald Poon UA PROTEIN Negative Normal NEGATIVE/ TRACE [facility] Comment on above: Performed By: #### C BC #### [facility] [address] [place] [address] Dr. Jerald Poon UR MICRO IND NOT INDICATED Normal [facility] Comment on above: Performed By: #### C BC #### [facility] [address] [place] [address] Dr. Jerald Poon Urobilinogen Qn (U) 1.0 {Lyly'U}/dL Normal 0.2 - 1. 0 [facility] Comment on above: Performed By: #### C BC #### [facility] [address] [place] [address] Dr. Jerald Poon PREG QUANT HCGon 04-01-2022 HCG QUANT 1 mIU/mL Normal [facility] Comment on above: Performed By: #### P REGQNT #### [facility] [address] [place] [address] Dr. Jerald Poon HCG RANGE SEE BELOW Normal [facility] Comment on above: Result Comment: 5-50 0.2-1 WEEK 50-500 1-2 WEEKS 100-5,000 2-3 WEEKS 500-10,000 3-4 WEEKS 1,000-50,000 4-5 WEEKS 10,000-100,000 5-6 WEEKS 15,000-200,000 6-8 WEEKS 10,000-100,000 2-3 MONTHS Performed By: #### P REGQNT #### [facility] [address] [place] [address] Dr. Jerald Poon PROF 14(COMP METB)on 022 Albumin [Mass/Vol] 3.6 g/dL Normal 3.4-5.0 [facility] Comment on above: Performed By: #### C MP #### [facility] [address] [place] [address] Dr. Jerald Poon Albumin/Globulin [Mass ratio] 0.8 {ratio} Normal [facility] Comment on above: Performed By: #### C MP #### [facility] [address] [place] [address] Dr. Jerald Poon ALP [Catalytic activity/Vol] 65 U/L Normal 46-116 [facility] Comment on above: Performed By: #### C MP #### [facility] [address] [address] [address] Jerald Poon ALT [Catalytic activity/Vol] 22 U/L Normal 14-59 [facility] Comment on above: Performed By: #### C MP #### [facility] [address] [address] [address] Jerald Poon Anion gap [Moles/Vol] 10.3 mmol/L Normal [facility] Comment on above: Performed By: #### C MP #### [facility] [address] [address] [address] Jerald Poon AST [Catalytic activity/Vol] 14 U/L Critically low 15-37 [facility] Comment on above: Performed By: #### C MP #### [facility] [address] [place] [address] Dr. Jerald Poon Bilirubin [Mass/Vol] 0.1 mg/dL Critically low 0.2-1.0 [facility] Comment on above: Performed By: #### C MP #### [facility] [address] [address] [address] Jerald Poon Calcium [Mass/Vol] 8.6 mg/dL Normal 8.5-10.1 [facility] Comment on above: Performed By: #### C MP #### [facility] [address] [address] [address] Jerald Poon Chloride [Moles/Vol] 104 mmol/L Normal 98-107 [facility] Comment on above: Performed By: #### C MP #### [facility] [address] [address] [address] Jerald Poon CO2 [Moles/Vol] 28.1 mmol/L Normal 21.0-32.0 [facility] Comment on above: Performed By: #### C MP #### [facility] [address] [address] [address] Jerald Poon Creatinine [Mass/Vol] 0.99 mg/dL Normal 0.55-1.02 [facility] Comment on above: Performed By: #### C MP #### [facility] [address] [address] [address] Jerald Poon EGFR-AF CITIZEN OF [place] >60 Normal >=60 [facility] Comment on above: Performed By: #### C MP #### [facility] [address] [address] [address] Jerald Poon EGFR-NON AF CITIZEN OF [place] >60 Normal >=60 [facility] Comment on above: Performed By: #### C MP #### [facility] [address] [address] [address] Jerald Poon Globulin (S) [Mass/Vol] 4.5 g/dL Normal [facility] Comment on above: Performed By: #### C MP #### [facility] [address] [place] [address] Dr. Jerald Poon Glucose [Mass/Vol] 94 mg/dL Normal 74-106 [facility] Comment on above: Performed By: #### C MP #### [facility] [address] [address] [address] Jerald Poon Potassium [Moles/Vol] 3.4 mmol/L Critically low 3.5-5.1 [facility] Comment on above: Performed By: #### C MP #### [facility] [address] [place] [address] Dr. Jerald Poon Protein [Mass/Vol] 8.1 g/dL Normal 6.4-8.2 [facility] Comment on above: Performed By: #### C MP #### [facility] [address] [address] [address] Jerald Poon Sodium [Moles/Vol] 139 mmol/L Normal 136-145 [facility] Comment on above: Performed By: #### C MP #### [facility] [address] [address] [address] Jerald Poon Urea nitrogen [Mass/Vol] 8.0 mg/dL Normal 7.0-18.0 [facility] Comment on above: Performed By: #### C MP #### [facility] [address] [address] [address] Jerald Poon Urea nitrogen/Creatinine [Mass ratio] 8.1 mg/mg Normal [facility] Comment on above: Performed By: #### C #### [facility] [address] [address] [address] Jerald Poon US PELVIS TRANSVAGon 022 [...] LUH MANRIQUE Date: 2022-04-01 21:55 Normal [facility] Automated erythrocytes count in urine sediment (number/area)Ordered By: Anders Sesay on 10-19-2021 RBC Auto (Urine sed) [#/Area] 1-2 [HPF] [facility] Automated leukocytes count i n urine sediment (number/area)Ordered By: Anders Sesay on 10-19-2021 WBC Auto (Urine sed) [#/Area] 3-4 [HPF] [facility] Basophils Auto (Bld) [#/Vol] Ordered By: Anders Sesay on 10-19-2021 Basophils (Bld) [#/Vol] 0.1 10*3/uL 0.0-0.2 [facility] Basophils/100 WBC Auto (Bld) Ordered By: Anders Sesay on 10-19-2021 Basophils/100 WBC (Bld) 0.6 % [facility] Bilirubin Test strip Ql (U)O rdered By: Anders Sesay on 10-19-2021 Bilirubin Ql (U) Negative Negative [facility] Blood hemoglobin measurement (mass/volume)Ordered By: Anders Sesay on 10-19-2021 Hemoglobin (Bld) [Mass/Vol] 13.2 g/dL 11.8-15.4 [facility] Blood leukocytes automated c ount (number/volume)Ordered By: Anders Sesay on 10-19-2021 WBC (Bld) [#/Vol] 9.1 10*3/uL 4.5-11.0 [facility] Body fluid albumin measureme nt (mass/volume)Ordered By: Anders Sesay on 10-19-2021 Albumin (Body fld) [Mass/Vol] 3.8 g/dL 3.2-5.5 [facility] Color Auto (U)Ordered By: Jason Sesay on 10-19-2021 Color (U) Yellow Yellow [facility] Creatinine and Glomerular fi ltration rate.predicted panel (S/P/Bld)Ordered By: Anders Sesay on 10-19-2021 Creatinine [Mass/Vol] 0.87 mg/dL 0.44-1.03 [facility] Eosinophils Auto (Bld) [#/Vo l]Ordered By: Anders Sesay on 10-19-2021 Eosinophils (Bld) [#/Vol] 0.1 10*3/uL 0.0-0.45 [facility] Eosinophils/100 WBC Auto (Bl d)Ordered By: Anders Sesay on 10-19-2021 Eosinophils/100 WBC (Bld) 0.9 % [facility] Erythrocyte distribution wid th Auto (RBC) [Ratio]Ordered By: Anders Sesay on 10-19-2021 Erythrocyte distribution width (RBC) [Ratio] 16.4 % 11.9-15.3 [facility] Estimated glomerular filtrat ion rate (GFR) non- AmericanOrdered By: Anders Sesay on 10-19-2021 GFR/1.73 sq M.predicted among non-blacks MDRD (S/P/Bld) [Vol rate/Area] > 60 mL/Min [facility] Globulin Calc (S) [Mass/Vol] Ordered By: Anders Sesay on 10-19-2021 Globulin (S) [Mass/Vol] 4.3 g/dL [facility] HCG ( test) IA.rapi d Ql (U)Ordered By: Anders Sesay on 10-19-2021 HCG ( test) Ql (U) Negative [facility] Hematocrit Auto (Bld) [Volum e fraction]Ordered By: Anders Sesay on 10-19-2021 Hematocrit (Bld) [Volume fraction] 40.2 % 34.0-46.4 [facility] Ketones Auto test strip (U) [Mass/Vol]Ordered By: Anders Sesay on 10-19-2021 Ketones (U) [Mass/Vol] Negative Negative [facility] and Cell countsOrdered By: Anders Sesay on 10-19-2021 Nucleated RBC/100 WBC (Bld) [Ratio] 0.2 % 0-0.5 [facility] - UrinalysisOrder ed By: Anders Sesay on 10-19-2021 Hyaline casts LM Ql (Urine sed) 0-8 [LPF] [facility] Lymphocytes Auto (Bld) [#/Vo l]Ordered By: Anders eSsay on 10-19-2021 Lymphocytes (Bld) [#/Vol] 2.4 10*3/uL 1.00-4.8 [facility] Lymphocytes/100 WBC Auto (Bl d)Ordered By: Anders Sesay on 10-19-2021 Lymphocytes/100 WBC (Bld) 26.7 % [facility] MCH Auto (RBC) [Entitic mass ]Ordered By: Anders Sesay on 10-19-2021 MCH (RBC) [Entitic mass] 26.3 pg 24.7-34.3 [facility] MCHC Auto (RBC) [Mass/Vol]Or dered By: Anders Sesay on 10-19-2021 MCHC (RBC) [Mass/Vol] 32.9 g/dL 32.0-35.0 [facility] MCV Auto (RBC) [Entitic vol] Ordered By: Anders Sesay on 10-19-2021 MCV (RBC) [Entitic vol] 80.1 fL 80-100 [facility] Monocytes Auto (Bld) [#/Vol] Ordered By: Anders Sesay on 10-19-2021 Monocytes (Bld) [#/Vol] 0.7 10*3/uL 0.0-0.8 [facility] Monocytes/100 WBC Auto (Bld) Ordered By: Anders Sesay on 10-19-2021 Monocytes/100 WBC (Bld) 7.6 % [facility] Neutrophils Auto (Bld) [#/Vo l]Ordered By: Anders Sesay on 10-19-2021 Neutrophils (Bld) [#/Vol] 5.8 10*3/uL 1.8-7.7 [facility] Neutrophils/100 WBC Auto (Bl d)Ordered By: Anders Sesay on 10-19-2021 Neutrophils/100 WBC (Bld) 64.2 % [facility] Nitrite Test strip Ql (U)Ord ered By: Anders Sesay on 10-19-2021 Nitrite Ql (U) Negative Negative [facility] No Panel InformationOrdered By: Anders Sesay on 10-19-2021 Estimated GFR () > 60 mL/Min [facility] Comment on above: GFR estimated refere nce range: According to KDOQI guidelines, <60 ml/min/1.73m2 is sufficient to diagnose a patient with chronic kidney disease. Pharmacy Creatinine Clearance (Chem 147.41 [facility] Platelet mean volume Auto (B ld) [Entitic vol]Ordered By: Anders Sesay on 10-19-2021 Platelet mean volume (Bld) [Entitic vol] 8.6 fL 6.3-10.7 [facility] Platelets Auto (Bld) [#/Vol] Ordered By: Anders Sesay on 10-19-2021 Platelets (Bld) [#/Vol] 395 10*3/uL 150-450 [facility] Protein Auto test strip (U) [Mass/Vol]Ordered By: Anders Sesay on 10-19-2021 Protein (U) [Mass/Vol] Negative Negative [facility] Protein [Mass/volume] in Ser um or PlasmaOrdered By: Anders Sesay on 10-19-2021 Protein [Mass/Vol] 8.1 g/dL 6.1-7.9 [facility] RBC Auto (Bld) [#/Vol]Ordere d By: Anders Sesay on 10-19-2021 RBC (Bld) [#/Vol] 5.02 10*6/uL 3.60-5.00 [facility] Serum or plasma alanine ayoub otransferase measurement without P-5'-P (enzymatic activiOrdered By: Anders Sesay on 10-19-2021 ALT No additional P-5'-P [Catalytic activity/Vol] 20 U/L 10-60 [facility] Serum or plasma albumin/glob ulin mass ratioOrdered By: Anders Sesay on 10-19-2021 Albumin/Globulin [Mass ratio] 0.9 {ratio} [facility] Serum or plasma alkaline cosmo sphatase measurement (enzymatic activity/volume)Ordered By: Anders Sesay on 10-19-2021 ALP [Catalytic activity/Vol] 55 U/L 32-92 [facility] Serum or plasma aspartate am inotransferase measurement (enzymatic activity/volume)Ordered By: Anders Sesay on 10-19-2021 AST [Catalytic activity/Vol] 17 U/L 10-42 [facility] Serum or plasma calcium joann urement (mass/volume)Ordered By: Anders Sesay on 10-19-2021 Calcium [Mass/Vol] 9.1 mg/dL 8.2-10.2 [facility] Serum or plasma chloride adan surement (moles/volume)Ordered By: Anders Sesay on 10-19-2021 Chloride [Moles/Vol] 103 mmol/L 95-114 [facility] Serum or plasma glucose joann urement (mass/volume)Ordered By: Anders Sesay on 10-19-2021 Glucose [Mass/Vol] 105 mg/dL 70-100 [facility] Comment on above: ADA recommended refe rence range Random Glucose Reference Range is dependent on time and content of last meal. Glucose of more than 200 mg/dL in a nonstressed, ambulatory subject supports the diagnosis of Diabetes Mellitus. Serum or plasma potassium me asurement (moles/volume)Ordered By: Anders Sesay on 10-19-2021 Potassium [Moles/Vol] 3.7 mmol/L 3.5-5.1 [facility] Serum or plasma sodium measu rement (moles/volume)Ordered By: Anders Sesay on 10-19-2021 Sodium [Moles/Vol] 137 mmol/L 136-146 [facility] Serum or plasma total biliru bin measurement (mass/volume)Ordered By: Anders Sesay on 10-19-2021 Bilirubin [Mass/Vol] 0.3 mg/dL 0.3-1.2 [facility] Serum or plasma total carbon dioxide measurement (moles/volume)Ordered By: Anders Sesay on 10-19-2021 CO2 [Moles/Vol] 24.2 mmol/L 22.0-30.0 [facility] Serum or plasma urea nitroge n measurement (mass/volume)Ordered By: Anders Sesay on 10-19-2021 Urea nitrogen [Mass/Vol] 7 mg/dL 9-23 [facility] Specific gravity Auto test s trip (U) [Rel density]Ordered By: Anders Sesay on 10-19-2021 Specific gravity (U) [Rel density] 1.014 1.001-1.030 [facility] Squamous epithelial cells de tection in urine sediment by light microscopyOrdered By: Anders Sesay on 10-19-2021 Epithelial cells.squamous LM Ql (Urine sed) 3-4 [HPF] [facility] Urine bacteria detection by automated methodOrdered By: Anders Sesay on 10-19-2021 Bacteria Auto Ql (U) 1+ None Seen [facility] Urine clarity by refractomet ry automatedOrdered By: Anders Sesay on 10-19-2021 Clarity Refractometry automated (U) Clear Clear [facility] Urine glucose measurement by automated test strip (mass/volume)Ordered By: Anders Sesay on 10-19-2021 Glucose Auto test strip (U) [Mass/Vol] Normal mg/dL Normal [facility] Urine hemoglobin detection b y automated test stripOrdered By: Anders Sesay on 10-19-2021 Hemoglobin Auto test strip Ql (U) Negative Negative [facility] Urine leukocyte esterase det ection by automated test stripOrdered By: Anders Sesay on 10-19-2021 Leukocyte esterase Auto test strip Ql (U) 1+ Negative [facility] Urobilinogen Auto test strip (U) [Mass/Vol]Ordered By: Anders Sesay on 10-19-2021 Urobilinogen (U) [Mass/Vol] Normal mg/dL Normal [facility] [facility] Auto test strip (U)Ordere d By: Anders Sesay on 10-19-2021 pH (U) 5.5 [pH] 5.0-9.0 [facility] US DUP ABD PEL RETRO SCROT [...] MD 07/14/20 Edited Result - FINAL Normal [facility] US NON OB TRANSVAGINALon US NON OB [...] MD 07/14/20 Edited Result - FINAL Normal [facility] Chlamydia/GC,DNA Ampon 07-10 Chlamydia Probe Negative Normal NEG [facility] Comment on above: Result Comment: CHLA MYDIA [...] Performed By: #### U HCG, UAMIC #### [employer] [address] [place], [place] [id number] Ham Marker: Campos Avilez MD Gonorrhea Probe Negative Normal NEG [facility] Comment on above: Result Comment: NEIS SERIA [...] Performed By: #### U HCG, UAMIC #### [facility] [address] [place] [phone] Ham Marker: Campos Avilez MD Cult,Urineon 07-09-2020 Cult,Urine Specimen Description .CLEAN CATCH URINE Special Requests NOT REPORTED Culture ESCHERICHIA COLI >[id number] CFU/ML Report Status FINAL 07/09/2020 SUSCEPTIBILITY Organism [...] <=20 SUSCEPTIBLE Piperacillin/Tazobac her <=4 SUSCEPTIBLE Normal [facility] Comment on above: Performed By: #### U HCG, UAMIC #### [address] [address] Ham Marker: Campos Avilez MD ABO/Rh(D)on 07-08-2020 ABO/Rh(D) Positive Normal [facility] Comment on above: Performed By: #### [facility] #### [place] [address] Ham Marker: Campos Avilez MD CBC with Diffon 07-08-2020 Abs. Basophil 0.04 k/uL Normal 0.00-0.20 [facility] Comment on above: Performed By: #### C P, CDP, COSMO, BHCG, MG, VD25, LIP #### [facility] [employer] [address] [place] [phone] Ham Marker: Campos Avilez MD Abs.Imm.Granulocyte 0.04 k/uL Normal 0.00-0.30 [facility] Comment on above: Performed By: #### C P, CDP, COSMO, BHCG, MG, VD25, LIP #### [facility] [employer] [address] [place] [phone] Ham Marker: Campos Avilez MD Abs.Neutrophil (Seg) 8.16 k/uL High 1.80-8.00 [facility] Comment on above: Performed By: #### C P, CDP, COSMO, BHCG, MG, VD25, LIP #### [address] [address] Ham Marker: Campos Avilez MD Basophils/100 WBC (Bld) 0 % Normal 0-2 [facility] Comment on above: Performed By: #### C P, CDP, COSMO, BHCG, MG, VD25, LIP #### [address] [address] Ham Marker: Campos Avilez MD Eosinophils (Bld) [#/Vol] 0.10 10*3/uL Normal 0.00-0.44 [facility] Comment on above: Performed By: #### C P, CDP, COSMO, BHCG, MG, VD25, LIP #### [place] [address] Ham Marker: Campos Avilez MD Eosinophils/100 WBC (Bld) 1 % Normal 1-4 [facility] Comment on above: Performed By: #### C P, CDP, COSMO, BHCG, MG, VD25, LIP #### [place] [address] Ham Marker: Campos Avilez MD Erythrocyte distribution width (RBC) [Ratio] 14.0 % Normal 11.8-14.4 [facility] Comment on above: Performed By: #### C P, CDP, COSMO, BHCG, MG, VD25, LIP #### [place] [address] Ham Marker: Campos Avilez MD Hematocrit (Bld) [Volume fraction] 34.3 % Low 36.3-47.1 [facility] Comment on above: Performed By: #### C P, CDP, COSMO, BHCG, MG, VD25, LIP #### [address] [address] Ham Marker: Campos Avilez MD Hemoglobin (Bld) [Mass/Vol] 11.1 g/dL Low 11.9-15.1 [facility] Comment on above: Performed By: #### C P, CDP, COSMO, BHCG, MG, VD25, LIP #### [address] [phone] Ham Marker: Campos Avilez MD Immature granulocytes (Bld) [#/Vol] 0 % Normal 0 [facility] Comment on above: Performed By: #### C P, CDP, COSMO, BHCG, MG, VD25, LIP #### [place] [address] Ham Marker: Campos Avilez MD Lymphocytes (Bld) [#/Vol] 1.77 10*3/uL Normal 1.20-5.20 [facility] Comment on above: Performed By: #### C P, CDP, COSMO, BHCG, MG, VD25, LIP #### [place] [address] Ham Marker: Campos Avilez MD Lymphocytes/100 WBC (Bld) 16 % Low 25-45 [facility] Comment on above: Performed By: #### C P, CDP, COSMO, BHCG, MG, VD25, LIP #### [place] [address] Ham Marker: Campos Avilez MD MCH (RBC) [Entitic mass] 26.6 pg Normal 25.0-35.0 [facility] Comment on above: Performed By: #### C P, CDP, COSMO, BHCG, MG, VD25, LIP #### [place] [address] Ham Marker: Campos Avilez MD MCHC (RBC) [Mass/Vol] 32.4 g/dL Normal 28.4-34.8 [facility] Comment on above: Performed By: #### C P, CDP, COSMO, BHCG, MG, VD25, LIP #### [address] [address] Ham Marker: Campos Avilez MD MCV (RBC) [Entitic vol] 82.3 fL Normal 78.0-102.0 [facility] Comment on above: Performed By: #### C P, CDP, COSMO, BHCG, MG, VD25, LIP #### [address] [address] Ham Marker: Campos Avielz MD Monocytes (Bld) [#/Vol] 0.73 10*3/uL Normal 0.10-1.40 [facility] Comment on above: Performed By: #### C P, CDP, COSMO, BHCG, MG, VD25, LIP #### [address] [address] Ham Marker: Campos Avilez MD Monocytes/100 WBC (Bld) 7 % Normal 2-8 [facility] Comment on above: Performed By: #### C P, CDP, COSMO, BHCG, MG, VD25, LIP #### [address] [address] Ham Marker: Campos Avilez MD Neutrophil (Seg) 75 % High 34-64 [facility] Comment on above: Performed By: #### C P, CDP, COSMO, BHCG, MG, VD25, LIP #### [address] [address] Ham Marker: Campos Avilez MD NRBC Automated 0.0 per 100 WBC Normal 0.0 [facility] Comment on above: Performed By: #### C P, CDP, COSMO, BHCG, MG, VD25, LIP #### [address] [address] Ham Marker: Campos Avilez MD Platelet mean volume (Bld) [Entitic vol] 11.8 fL Normal 8.1-13.5 [facility] Comment on above: Performed By: #### C P, CDP, COSMO, BHCG, MG, VD25, LIP #### [address] [address] Ham Marker: Campos Avilez MD Platelets (Bld) [#/Vol] 288 10*3/uL Normal 138-453 [facility] Comment on above: Performed By: #### C P, CDP, COSMO, BHCG, MG, VD25, LIP #### [address] [address] Ham Marker: Campos Avilez MD RBC (Bld) [#/Vol] 4.17 10*6/uL Normal 3.95-5.11 [facility] Comment on above: Performed By: #### C P, CDP, COSMO, BHCG, MG, VD25, LIP #### [address] [address] Ham Marker: Campos Avilez MD WBC (Bld) [#/Vol] 10.8 10*3/uL Normal 4.5-13.5 [facility] Comment on above: Performed By: #### C P, CDP, COSMO, BHCG, MG, VD25, LIP #### [address] [address] Ham Marker: Campos Avilez MD Auto Diff Performed NOT REPORTED Normal [facility] Comment on above: Performed By: #### C P, CDP, COSMO, BHCG, MG, VD25, LIP #### [facility] [employer] [address] [place] [phone] Ham Marker: Campos Avilez MD Platelets (Bld) [#/Vol] NOT REPORTED Normal [facility] Comment on above: Performed By: #### C P, CDP, COSMO, BHCG, MG, VD25, LIP #### [address] [address] Ham Marker: Campos Avilez MD RBC morphology finding Nom (Bld) NOT REPORTED Normal [facility] Comment on above: Performed By: #### C P, CDP, COSMO, BHCG, MG, VD25, LIP #### [address] [address] Ham Marker: Campos Avilez MD WBC Morphology NOT REPORTED Normal [facility] Comment on above: Performed By: #### C P, CDP, COSMO, BHCG, MG, VD25, LIP #### [address] [address] Ham Marker: Campos Avilez MD Calcium, Ionicon 07-08-2020 Calcium [Mass/Vol] 1.18 mmol/L Normal 1.13-1.33 [facility] Comment on above: Performed By: #### I OCAL #### [address] [address] Ham Marker: Campos Avilez MD Calcium, Ionizedon Calcium [Mass/Vol] 1.18 mmol/L 1.13 - 1. 33 mmol/L [facility] [place] Comp Metabolic Profon 2020 (cont.) Normal [facility] Comment on above: Result Comment: Aver age GFR for <20 years old not available. Chronic Kidney Disease: <60 mL/min/1.73sq m Kidney failure: <15 mL/min/1.73sq m eGFR calculated using average adult body mass. Additional eGFR calculator available at: http://www.IPXI.com/multiple_crcl_2012.htm Performed By: #### C P, CDP, COSMO, BHCG, MG, VD25, LIP #### [address] [address] Ham Marker: Campos Avilez MD Albumin [Mass/Vol] 2.3 g/dL Low 3.5-5.2 [facility] Comment on above: Performed By: #### C P, CDP, COSMO, BHCG, MG, VD25, LIP #### [address] [phone] Ham Marker: Campos Avilez MD Albumin/Globulin [Mass ratio] 0.9 {ratio} Low 1.0-2.5 [facility] Comment on above: Performed By: #### C P, CDP, COSMO, BHCG, MG, VD25, LIP #### [facility] [employer] [address] [place] [phone] Ham Marker: Campos Avilez MD Alkaline Phos 41 U/L Normal 35-104 [facility] Comment on above: Result Comment: SPEC IMEN MODERATELY HEMOLYZED, RESULTS MAY BE ADVERSELY AFFECTED Performed By: #### C P, CDP, COSMO, BHCG, MG, VD25, LIP #### [facility] [employer] [address] [place] [address] [phone] Ham Marker: Campos Avilez MD ALT [Catalytic activity/Vol] 11 U/L Normal 5-33 [facility] Comment on above: Result Comment: SPEC IMEN MODERATELY HEMOLYZED, RESULTS MAY BE ADVERSELY AFFECTED Performed By: #### C P, CDP, COSMO, BHCG, MG, VD25, LIP #### [address] [address] Ham Marker: Campos Avilez MD Anion gap [Moles/Vol] 9 mmol/L Normal 9-17 [facility] Comment on above: Performed By: #### C P, CDP, COSMO, BHCG, MG, VD25, LIP #### [address] [address] Ham Marker: Campos Avilez MD AST [Catalytic activity/Vol] 28 U/L Normal <32 [facility] Comment on above: Result Comment: SPEC IMEN MODERATELY HEMOLYZED, RESULTS MAY BE ADVERSELY AFFECTED Performed By: #### C P, CDP, COSMO, BHCG, MG, VD25, LIP #### [address] [address] Ham Marker: Campos Avilez MD Bilirubin Ql (U) <0.10 Low 0.3-1.2 [facility] Comment on above: Performed By: #### C P, CDP, COSMO, BHCG, MG, VD25, LIP #### [address] [address] Ham Marker: Campos Avilez MD Calcium [Mass/Vol] 5.5 mg/dL Critically low 8.6-10.4 [facility] Comment on above: Performed By: #### C P, CDP, COSMO, BHCG, MG, VD25, LIP #### [address] [address] Ham Marker: Campos Avilez MD Chloride [Moles/Vol] 118 mmol/L High 98-107 [facility] Comment on above: Performed By: #### C P, CDP, COSMO, BHCG, MG, VD25, LIP #### [address] [address] Ham Marker: Campos Avilez MD CO2 [Moles/Vol] 14 mmol/L Low 20-31 [facility] Comment on above: Performed By: #### C P, CDP, COSMO, BHCG, MG, VD25, LIP #### [address] [address] Ham Marker: Campos Avilez MD Creatinine [Mass/Vol] 0.60 mg/dL Normal 0.50-0.90 [facility] Comment on above: Performed By: #### C P, CDP, COSMO, BHCG, MG, VD25, LIP #### [address] [address] Ham Marker: Campos Avilez MD GFR,non Amer Pediatric GFR requires additional information. Refer to NKDEP website for Normal >60 [facility] Comment on above: Result Comment: calc ulator. Performed By: #### C P, CDP, COSMO, BHCG, MG, VD25, LIP #### [address] [address] Ham Marker: Campos Avilez MD Glucose [Mass/Vol] 84 mg/dL Normal 70-99 [facility] Comment on above: Performed By: #### C P, CDP, COSMO, BHCG, MG, VD25, LIP #### [address] [address] Ham Marker: Campos Avilez MD Potassium [Moles/Vol] 5.1 mmol/L Normal 3.7-5.3 [facility] Comment on above: Result Comment: SPEC IMEN MODERATELY HEMOLYZED, RESULTS MAY BE ADVERSELY AFFECTED Performed By: #### C P, CDP, COSMO, BHCG, MG, VD25, LIP #### [address] [address] Ham Marker: Campos Avilez MD Protein [Mass/Vol] 5.0 g/dL Low 6.4-8.3 [facility] Comment on above: Performed By: #### C P, CDP, COSMO, BHCG, MG, VD25, LIP #### [address] [address] Ham Marker: Campos Avilez MD Sodium [Moles/Vol] 141 mmol/L Normal 135-144 [facility] Comment on above: Performed By: #### C P, CDP, COSMO, BHCG, MG, VD25, LIP #### [address] [address] Ham Marker: Campos Avilez MD Urea nitrogen [Mass/Vol] 10 mg/dL Normal 6-20 [facility] Comment on above: Performed By: #### C P, CDP, COSMO, BHCG, MG, VD25, LIP #### [facility] [address] [place] [phone] Ham Marker: Campos Avilez MD BUN/CRE Ratio NOT REPORTED Normal 9-20 [facility] Comment on above: Performed By: #### C P, CDP, COSMO, BHCG, MG, VD25, LIP #### [facility] [address] [place] [address] Ham Marker: Campos Avilez MD GFR, Amer NOT REPORTED Normal >60 [facility] Comment on above: Performed By: #### C P, CDP, COSMO, BHCG, MG, VD25, LIP #### [facility] [address] [place] [phone] Ham Marker: Campos Avilez MD Staging: NOT REPORTED Normal [facility] Comment on above: Performed By: #### C P, CDP, COSMO, BHCG, MG, VD25, LIP #### [facility] [employer] [address] [place] [phone] Ham Marker: Campos Avilez MD HCG, ,Urineon 07-089 Beta HCG ( test) Ql (U) Negative Normal NEG [facility] Comment on above: Result Comment: Spec imens with hCG levels near the threshold of the test (25 mIU/mL) may give a negative or indeterminate result. In such cases, another test should be performed with a new specimen in 48-72 hours. If early is suspected clinically in this setting, correlation with quantitative serum b-hCG level is suggested. Performed By: #### U HCG, UAMIC #### [address] [address] Ham Marker: Campos Avilez MD HCG, Quanton 07-08-2020 HCG, Quant <1 Normal <5 [facility] Comment on above: Result Comment: Non-preg premeno [...] BHCG, MG, VD25, LIP #### [facility] [employer] [address] [place] [address] [phone] Ham Marker: Campos Avilez MD Lipaseon 07-08-2020 Lipase [Catalytic activity/Vol] 15 U/L Normal 13-60 [facility] Comment on above: Performed By: #### C P, CDP, COSMO, BHCG, MG, VD25, LIP #### [facility] [address] [place] [address] [phone] Ham Marker: Campos Avilez MD Magnesiumon 07-08-2020 Magnesium [Mass/Vol] 1.2 mg/dL Low 1.7-2.2 [facility] Comment on above: Performed By: #### C P, CDP, COSMO, BHCG, MG, VD25, LIP #### [facility] [employer] [address] [place] [address] [phone] Ham Marker: Campos Avilez MD Interpretation and review of laboratory results Abnormal [place] Magnesium [Mass/Vol] 1.2 mg/dL Low 1.7 - 2 .2 mg/dL [place] Otheron 07-08-2020 Direct Exam Negative [place] , URINEon Beta HCG ( test) Ql (U) Negative NEGATIVE [place] Comment on above: Specimens with hCG [...] 2.6 mg/dL 2.5 - 4 .8 mg/dL [place] Phosphorus, Inorg.on 021 Phosphorus, Inorg. 2.6 mg/dL Normal 2.5-4.8 [facility] Comment on above: Performed By: #### U HCG, UAMIC #### [facility] [employer] [address] [place] [address] Ham Marker: Campos Avilez MD NON OB TRANSVAGINALon Elia, Mhpn Incoming Radiant Results From [facility] - 07/08/2020 12:31 AM EST EXAMINATION: PELVIC [...] No evidence of ovarian torsion is noted. [place], [place] Unremarkable pelvic ultrasound. No evidence of ovarian torsion is noted. [place] EXAMINATION: PELVIC ULTRASOUND 07/07/2020 TECHNIQUE: Transvaginal [...] Free Fluid: No evidence of free fluid. [facility] [place] Urinalysis w/ Microon 2020 ----- Normal [facility] Comment on above: Performed By: #### U HCG, UAMIC #### [address] [address] Ham Marker: Campos Avilez MD Acetoacetic Acid,Ur Negative Normal NEG [facility] Comment on above: Performed By: #### U HCG, UAMIC #### [address] [address] Ham Marker: Campos Avilez MD Bacteria LM.HPF (Urine sed) [#/Area] MANY Abnormal NONE [facility] Comment on above: Performed By: #### U HCG, UAMIC #### [address] [address] Ham Marker: Campos Avilez MD Bilirubin, SemiQt,Ur Negative Normal NEG [facility] Comment on above: Performed By: #### U HCG, UAMIC #### [address] [address] Ham Marker: Campos Avilez MD Color (U) ORANGE Abnormal YEL [facility] Comment on above: Result Comment: INTE RPRET WITH CAUTION DUE TO INTENSE COLOR OF URINE. Performed By: #### U HCG, UAMIC #### [address] [address] Ham Marker: Campos Avilez MD Epithelial cells LM.HPF (Urine sed) [#/Area] 0 TO 2 Normal 0-5 [facility] Comment on above: Performed By: #### U HCG, UAMIC #### [address] [address] Ham Marker: Campos Avilez MD Glucose Ql (U) Negative Normal NEG [facility] Comment on above: Performed By: #### U HCG, UAMIC #### [facility] [address] [place] [address] Ham Marker: Campos Avilez MD Hemoglobin, Ur LARGE Abnormal NEG [facility] Comment on above: Performed By: #### U HCG, UAMIC #### [facility] [address] [place] [address] Ham Marker: Campos Avilez MD Leukocyte esterase Test strip Ql (U) MODERATE Abnormal NEG [facility] Comment on above: Performed By: #### U HCG, UAMIC #### [address] [address] Ham Marker: Campos Avilez MD Nitrite,Ur Positive Abnormal NEG [facility] Comment on above: Performed By: #### U HCG, UAMIC #### [address] [address] Ham Marker: Campos Avilez MD pH (U) 5.5 [pH] Normal 5.0-8.0 [facility] Comment on above: Performed By: #### U HCG, UAMIC #### [address] [address] Ham Marker: Campos Avilez MD Protein Ql (U) 2+ Abnormal NEG [facility] Comment on above: Performed By: #### U HCG, UAMIC #### [address] [address] Ham Marker: Campos Avilez MD RBC (U) [#/Vol] 50 TO 100 Normal 0-4 [facility] Comment on above: Result Comment: Refe rence range defined for non-centrifuged specimen. Performed By: #### U HCG, UAMIC #### [address] [address] Ham Marker: Campos Avilez MD Specific gravity (U) [Rel density] 1.021 Normal 1.005-1.030 [facility] Comment on above: Performed By: #### U HCG, UAMIC #### [address] [address] Ham Marker: Campos Avilez MD Turbidity TURBID Abnormal CLEAR [facility] Comment on above: Performed By: #### U HCG, UAMIC #### [address] [address] Ham Marker: Campos Avilez MD Urobilinogen,Ur Normal Normal NORM [facility] Comment on above: Performed By: #### U HCG, UAMIC #### [address] [address] Ham Marker: Campos Avilez MD WBC (U) [#/Vol] TOO NUMEROUS TO COUNT Normal 0-5 [facility] Comment on above: Performed By: #### U HCG, UAMIC #### [address] [address] Ham Marker: Campos Avilez MD Amorphous sediment LM Ql (Urine sed) NOT REPORTED Normal NONE [facility] Comment on above: Performed By: #### U HCG, UAMIC #### [address] [address] Ham Marker: Campos Avilez MD Casts LM.LPF (Urine sed) [#/Area] NOT REPORTED Normal 0-8 [facility] Comment on above: Performed By: #### U HCG, UAMIC #### [address] [address] Ham Marker: Campos Avilez MD Crystals LM Nom (Urine sed) NOT REPORTED Normal NONE [facility] Comment on above: Performed By: #### U HCG, UAMIC #### [address] [address] Ham Marker: Campos Avilez MD Epithelial, Renal NOT REPORTED Normal 0 [facility] Comment on above: Performed By: #### U HCG, UAMIC #### [facility] [employer] [address] [place] [phone] Ham Marker: Campos Avilez MD Mucus Strands NOT REPORTED Normal NONE [facility] Comment on above: Performed By: #### U HCG, UAMIC #### [address] [address] Ham Marker: Campos Avilez MD Other Observations NOT REPORTED Normal NREQ [facility] Comment on above: Performed By: #### U HCG, UAMIC #### [address] [address] Ham Marker: Campos Avilez MD Trichomonas NOT REPORTED Normal NONE [facility] Comment on above: Performed By: #### U HCG, UAMIC #### [address] [address] Ham Marker: Campos Avilez MD Yeast LM Ql (Urine sed) NOT REPORTED Normal [facility] Comment on above: Performed By: #### U HCG, UAMIC #### [address] [address] Ham Marker: Campos Avilez MD Urinalysis with microscopico n 07-08-2020 Amorphous, UA NOT REPORTED None [facility] [place] [place] Bacteria, UA MANY Abnormal None [facility] [place] Bilirubin Urine Negative NEGATIVE [facility] [place] Casts UA NOT REPORTED [facility] [place] Color, UA ORANGE Abnormal YELLOW [facility] [place] Comment on above: INTERPRET WITH CAUTI ON DUE TO INTENSE COLOR OF URINE. Crystals, UA NOT REPORTED None /HPF [facility] [place] Epithelial Cells UA 0 TO 2 [place] Glucose, Ur Negative NEGATIVE [place] Interpretation and review of laboratory results Abnormal [place] Ketones Ql (U) Negative NEGATIVE [place] Leukocyte esterase Test strip Ql (U) MODERATE Abnormal NEGATIVE [place] Mucus, UA NOT REPORTED None [place] Nitrite, Urine Positive Abnormal NEGATIVE [place] Other Observations UA NOT REPORTED NOT REQ. M [place] pH, UA 5.5 [place] Protein (U) [Mass/Vol] 2+ Abnormal NEGATIVE [place] RBC (U) [#/Vol] 50 TO 100 [place] Comment on above: Reference range defi sonia for non-centrifuged specimen. Renal Epithelial, UA NOT REPORTED 0 /HPF [place] Specific [place], UA 1.021 [place] Trichomonas, UA NOT REPORTED None [place] Turbidity UA TURBID Abnormal CLEAR [place] Urine Hgb LARGE Abnormal NEGATIVE [place] Urobilinogen, Urine Normal Normal [place] WBC, UA TOO NUMEROUS TO COUNT [place] Yeast, UA NOT REPORTED None [place] VAGINITIS DNA PROBEon 2020 Direct Exam Positive Abnormal [place] Direct Exam Method of testing is a DNA probe intended for detection and identification of Samantha species, Gardnerella vaginalis, and Trichomonas vaginalis nucleic acid in vaginal fluid specimens from patients with symptoms of vaginitis/vaginosis. [place] Interpretation and review of laboratory results Abnormal [place] Special Requests NOT REPORTED [place] Specimen Description .VAG[place] Vaginitis DNA Probeon 2020 Vaginitis DNA [...] of vaginitis/vaginosis. Report Status FINAL 07/08/2020 Normal [facility] Comment on above: Performed By: #### U HCG, UAMIC #### [facility] [address] [place], [place] [id number] Ham Marker: Campos Avilez MD Vitamin D 25 Hydroxyon 07-08 Interpretation and review of laboratory results Abnormal [place] Vit D, 25-Hydroxy 12.1 ng/mL Low 30 - 100 ng/mL [place] Comment on above: Reference Range: Vitamin D status Range Deficiency <20 ng/mL Mild Deficiency 20-30 ng/mL Sufficiency 30-100 ng/mL Toxicity >100 ng/mL Vitamin D 25 OHon 07-08-2020 Vitamin D 25 OH 12.1 ng/mL Low 30.0-100.0 [facility] Comment on above: Result Comment: Reference Range: Vitamin D status Range Deficiency <20 ng/mL Mild Deficiency 20-30 ng/mL Sufficiency 30-100 ng/mL Toxicity >100 ng/mL Performed By: #### U HCG, UAMIC #### [facility] [address] [place] [address] [id number] Ham Marker: Campos Avilez MD ABO/RHon 07-07-2020 ABO/Rh Positive [place] CBC WITH AUTO DIFFERENTIALon 07-07-2020 Basophils (Bld) [#/Vol] 0.04 10*3/uL [place] Basophils/100 WBC (Bld) 0 % 0 - 2 % [place] Differential Type NOT REPORTED [place] Eosinophils (Bld) [#/Vol] 0.10 10*3/uL [place] Eosinophils/100 WBC (Bld) 1 % 1 - 4 % [place] Erythrocyte distribution width (RBC) [Ratio] 14.0 % 11.8 - 14.4 % [place] Hematocrit (Bld) [Volume fraction] 34.3 % Low 36.3 - 47.1 % [place] Hemoglobin (Bld) [Mass/Vol] 11.1 g/dL Low 11.9 - 15.1 g/dL [place] Immature granulocytes (Bld) [#/Vol] 0 % 0 [place] Immature granulocytes (Bld) [#/Vol] 0.04 10*3/uL [place] Interpretation and review of laboratory results Abnormal [place] Lymphocytes (Bld) [#/Vol] 1.77 10*3/uL [place] Lymphocytes/100 WBC (Bld) 16 % Low 25 - 45 % [place] MCH (RBC) [Entitic mass] 26.6 pg 25 - 35 pg [place] MCHC (RBC) [Mass/Vol] 32.4 g/dL 28.4 - 34.8 g/dL [place] MCV (RBC) [Entitic vol] 82.3 fL 78 - 102 fL [place] Monocytes (Bld) [#/Vol] 0.73 10*3/uL [place] Monocytes/100 WBC (Bld) 7 % 2 - 8 % [place] Platelet mean volume (Bld) [Entitic vol] 11.8 fL 8.1 - 13.5 fL [place] Platelets (Bld) [#/Vol] NOT REPORTED [place] Platelets (Bld) [#/Vol] 288 10*3/uL [place] RBC (Bld) [#/Vol] 4.17 10*6/uL 3.95 - 5.1 1 m/uL [place] RBC morphology finding Nom (Bld) NOT REPORTED [place] Segmented neutrophils/100 WBC (Bld) 75 % High 34 - 64 % [place] Segs Absolute 8.16 [place] WBC (Bld) [#/Vol] 0.0 10*3/uL 0.0 per 10 0 WBC [place] WBC (Bld) [#/Vol] 10.8 10*3/uL [place] WBC Morphology NOT REPORTED [place] COMPREHENSIVE METABOLIC PANE Mikie 07-07-2020 Albumin [Mass/Vol] 2.3 g/dL Low 3.5 - 5.2 g/dL [place] Albumin/Globulin [Mass ratio] 0.9 {ratio} Low [place] ALP [Catalytic activity/Vol] 41 U/L 35 - 104 U/L [place] Comment on above: SPECIMEN MODERATELY HEMOLYZED, RESULTS MAY BE ADVERSELY AFFECTED ALT [Catalytic activity/Vol] 11 U/L 5 - 33 U/L [place] Comment on above: SPECIMEN MODERATELY HEMOLYZED, RESULTS MAY BE ADVERSELY AFFECTED Anion gap [Moles/Vol] 9 mmol/L 9 - 17 mmol/L [place] AST [Catalytic activity/Vol] 28 U/L <32 [place] Comment on above: SPECIMEN MODERATELY HEMOLYZED, RESULTS MAY BE ADVERSELY AFFECTED Bilirubin Ql (U) <0.10 Low 0.3 - 1.2 mg/dL [place] Bun/Cre Ratio NOT REPORTED [place] Calcium [Mass/Vol] 5.5 mg/dL Critically low 8.6 - 1 0.4 mg/dL [place] Chloride [Moles/Vol] 118 mmol/L High 98 - 10 7 mmol/L [place] CO2 [Moles/Vol] 14 mmol/L Low 20 - 31 mmol/L [place] Creatinine [Mass/Vol] 0.6 mg/dL 0.5 - 0.9 mg/dL [place] GFR NOT REPORTED >60 mL/min [place] GFR Non- Pediatric GFR requires additional information. Refer to NKDEP website for calculator. >60 mL/min [place] GFR/1.73 sq M predicted among non-blacks MDRD (S/P/Bld) [Vol rate/Area] NOT REPORTED [place] GFR/1.73 sq M predicted among non-blacks MDRD (S/P/Bld) [Vol rate/Area] [place] Comment on above: Average GFR for <20 years old not available. Chronic Kidney Disease: <60 mL/min/1.73sq m Kidney failure: <15 mL/min/1.73sq m eGFR calculated using average adult body mass. Additional eGFR calculator available at: http://www.CritiTech/multiple_crcl_2012.htm Glucose [Mass/Vol] 84 mg/dL 70 - 99 mg/dL [place] Interpretation and review of laboratory results Abnormal [place] Potassium [Moles/Vol] 5.1 mmol/L 3.7 - 5.3 mmol/L [place] Comment on above: SPECIMEN MODERATELY HEMOLYZED, RESULTS MAY BE ADVERSELY AFFECTED Protein [Mass/Vol] 5.0 g/dL Low 6.4 - 8.3 g/dL [place] Sodium [Moles/Vol] 141 mmol/L 135 - 144 mmol/L [place] Urea nitrogen [Mass/Vol] 10 mg/dL 6 - 20 mg/dL [place] HCG, QUANTITATIVE, on 07-07-2020 hCG Quant <1 <5 IU/L [place] Comment on above: Non-preg premeno <=5 [...] activity/Vol] 15 U/L 13 - 60 U/L [place] Vital Signs Date Time Vital Sign Value Performing Clinician Facility 10-26-2023 03:30-0400 Hourly Rounding Fuentes Florentino [facility] Comment on above: Result Comment: pt discharged off unit 10-26-2023 03:15-0400 Hourly Rounding Fuentes Florentino [facility] Comment on above: Result Comment: went over discharge inst ructions. educated pt on importance of contacting primary provider with future concerns, pisking up antibiotic prescription tomorrow, and calling is symtpoms return or get worse. 10-26-2023 00:00-0400 Blood Pressure Location Fuentes Florentino [facility] 10-26-2023 00:00-0400 Body temperature 98.6 [degF] Fuentes Florentino [facility] 10-26-2023 00:00-0400 Diastolic blood pressure 68 mm[Hg] Fuentes Florentino [facility] 10-26-2023 00:00-0400 Heart rate 101 /min Fuentes Florentino [facility] 10-26-2023 00:00-0400 Hourly Rounding Fuentes Florentino [facility] 10-26-2023 00:00-0400 Mean blood pressure 86 mm[Hg] Fuentes Florentino [facility] 10-26-2023 00:00-0400 Respiratory rate 16 /min Fuentes Florentino [facility] 10-26-2023 00:00-0400 Systolic blood pressure 122 mm[Hg] Fuentes Florentino [facility] 07-17-2023 11:42-0500 Body weight 127.82 kg Chung Benja DO Work Phone: [facility] 07-17-2023 11:42-0500 Diastolic blood pressure 70 mm[Hg] Chung Benja DO Work Phone: [facility] 07-17-2023 11:42-0500 Systolic blood pressure 118 mm[Hg] Chung Benja DO Work Phone: [facility] 10-19-2021 01:12-0400 Diastolic blood pressure 62 mm[Hg] PHYSICIAN [facility] 10-19-2021 01:12-0400 Heart rate 89 /min PHYSICIAN [facility] 10-19-2021 01:12-0400 Respiratory rate 18 /min PHYSICIAN [facility] 10-19-2021 01:12-0400 SaO2% (BldA) [Mass fraction] 100 % PHYSICIAN [facility] 10-19-2021 01:12-0400 Systolic blood pressure 130 mm[Hg] PHYSICIAN [facility] 10-18-2021 23:10-0400 Body height 167.64 cm PHYSICIAN [facility] 10-18-2021 23:10-0400 Body mass index (BMI) [Percentile] Per age and sex 99.1 % PHYSICIAN [facility] 10-18-2021 23:10-0400 Body mass index (BMI) [Ratio] 48.2 kg/m2 PHYSICIAN [facility] 10-18-2021 23:10-0400 Body weight 135.5 kg PHYSICIAN [facility] 10-18-2021 23:08-0400 Body temperature 98.4 [degF] PHYSICIAN [facility] 07-07-2020 21:51-0500 BMI (Body Mass Index) 42.93 kg/m2 Lisa Land [facility], [place] 07-07-2020 21:51-0500 Body weight 120.[address] [facility] [place] 07-07-2020 21:51-0500 BP Di[facility] 85 [facility]Hg[facility] [place] 07-07-2020 21:51-0500 BP Systolic 136 mm[Hg] Lisa Land [place], [place] 07-07-2020 21:51-0500 Height 167.6 cm [facility] [place] 07-07-2020 21:51-0500 Pulse (Heart Rate) 93 /min [facility] [place], [place] 07-07-2020 21:51-0500 Pulse Oximetry 97 % Lisa Land [facility] [place] 07-07-2020 21:51-0500 Respiratory Rate 18 /min [facility] [place] 07-07-2020 21:48-0500 Body Temperature 97.11 [degF] Lisa Land [place] Encounters Encounter Date Encounter Type Care Provider Facility Start: 11-19-2023 End: 11-19-2023 ambulatory CHUNG BENJA Not Available Start: 11-04-2023 End: 11-04-2023 ambulatory HALIMA CULLEN Not Available Start: 10-26-2023 End: 10-26-2023 ambulatory Fuentes Florentino [facility] Start: 10-25-2023 End: 10-26-2023 OB Triage Fuentes Florentino [facility] Start: 10-07-2023 End: 10-07-2023 ambulatory CHUNG BENJA [...] Emergency department patient visit PHYSICIAN NO FAMILY Facility:[facility] Start: 10-18-2021 End: 10-19-2021 Emergency department patient visit PHYSICIAN NO FAMILY [facility] Start: 07-07-2020 End: 07-08-2020 Emergency department patient visit DAVID AQUINO [facility] Start: 07-07-2020 End: 07-08-2020 Emergency department patient visit Lisa Land Work Phone: [facility] ED Comment on above: BV (bacterial vagino [...] encounter procedure 08/14/2023 11:[address] [facility] [address] [place] [id number] Halima Cullen PA [address] [place] [address] [facility] Start: 07-17-2023 End: 07-17-2024 US for US OB VIABLILITY Imaging Routine with uncertain viability, single or unspecified fetus Expected: 07/17/2023 (Approximate), Expires: 07/17/2024 [facility] Work Phone: Comment on above: Expected: 07/17/2023 (Approximate), Expires: 07/17/2024 Start: 07-17-2023 End: 07-17-[address] [facility] Comment on above: First trimester preg yesika Start: 07-03-2023 End: 07-03-2024 ABO/Rh ABO/Rh Lab Routine Missed menses Expected: 07/03/2023 (Approximate), Expires: 07/03/2024 [facility] Healthcare Comment on above: Expected: 07/03/2023 (Approximate), Expires: 07/03/2024 Start: 07-03-2023 End: 07-03-2024 Blood type and Indirect antibody screen panel - Blood Type and screen Lab Routine Missed menses Expected: 07/03/2023 (Approximate), Expires: 07/03/2024 [facility] Work Phone: Comment on above: Expected: 07/03/2023 (Approximate), Expires: 07/03/2024 Start: 07-03-2023 End: 07-03-2024 US Pelvis transvaginal US OB transvaginal Imaging Routine Missed menses Expected: 07/03/2023 (Approximate), Expires: 07/03/2024 [facility] Healthcare Comment on above: Expected: 07/03/2023 (Approximate), Expires: 07/03/2024 Start: 02-01-2020 Influenza vaccination Flu vaccine (# 1) [place] Start: 2018 Meningococcal (ACWY) vaccine (1 - 2-dose series) Meningococcal (ACWY) vaccine (1 - 2-dose series) [place] Start: 2018 Screening for Chlamy nancy trachomatis Chlamydia screen [place], [place] Start: 2017 HIV screening HIV screen [place] Start: 2013 HPV vaccine (1 - 2-d ose series) HPV vaccine (1 - 2-dose series) [place] Start: 2009 DTaP/Tdap/Td vaccine (1 - Tdap) DTaP/Tdap/Td vaccine (1 - Tdap) [place] Start: 2003 Hepatitis A vaccine (1 of 2 - 2-dose series) Hepatitis A vaccine (1 of 2 - 2-dose series) [place] Start: 2003 Measles,Mumps,Rubell a (MMR) vaccine (1 of 2 - Standard series) Measles,Mumps,Rubella (MMR) vaccine (1 of 2 - Standard series) [place] Start: 2003 Varicella vaccine (1 of 2 - 2-dose childhood series) Varicella vaccine (1 of 2 - 2-dose childhood series) [place] Start: 2002 Hepatitis B vaccine (1 of 3 - 3-dose primary series) Hepatitis B vaccine (1 of 3 - 3-dose primary series) [place] Start: 2002 Hepatitis C screening Hepatitis C sc cezarn [place] Bacteria identified in Urine by Culture Urine culture Microbiology Routine Missed menses Ordered: 07/03/2023 [facility] Comment on above: Ordered: 07/03/2023 End: 07-07-2020 C.trachomatis N.gonorrhoeae DNA C.trachomatis N.gonorrhoeae DNA Microbiology STAT One Time for 1 Occurrences starting 07/07/2020 until 07/07/2020 [place] Comment on above: One Time for 1 Occur rences starting 07/07/2020 until 07/07/2020 C.trachomatis N.gonorrhoeae DNA C.trachomatis N.gonorrhoeae DNA Microbiology Stat [employer] Label print 07/07/2020 11:20 PM MAGALI [place] End: 07-08-2020 Calcium, Ionized Calcium, Ionized Lab STAT One Time for 1 Occurrences starting 07/08/2020 until 07/08/2020 [place] Comment on above: One Time for 1 Occur rences starting 07/08/2020 until 07/08/2020 CBC W Auto Different ial panel - Blood CBC and differential Lab Routine Missed menses Ordered: 07/03/2023 [facility] Comment on above: Ordered: 07/03/2023 End: 07-07-2020 Culture, Urine Culture, Urine Microbiology STAT One Time for 1 Occurrences starting 07/07/2020 until 07/07/2020 [place] Comment on above: One Time for 1 Occur rences starting 07/07/2020 until 07/07/2020 Culture, Urine Culture, Urine Microbiology Stat [employer] Label print 07/07/2020 10:56 PM [place] Hemoglobin A1c measurement Hemoglobin A1c Lab Routine Missed menses Ordered: 07/03/2023 [facility] Comment on above: Ordered: 07/03/2023 Hepatitis B virus surface Ag [Presence] in Serum or Plasma by Immunoassay Hepatitis B surface antigen Lab Routine Missed menses Ordered: 07/03/2023 [facility] Comment on above: Ordered: 07/03/2023 Hepatitis C virus Ab [Presence] in Serum or Plasma by Immunoassay Hepatitis C antibody Lab Routine Missed menses Ordered: 07/03/2023 [facility] Comment on above: Ordered: 07/03/2023 HIV-1/HIV-2 antigen/antibody combination immunoassay HIV-1 and HIV-2 antibodies Lab Routine Missed menses Ordered: 07/03/2023 [facility] Comment on above: Ordered: 07/03/2023 Patient Education Common Breast Problems Pelvic Pain ED [facility] Work Phone: Patient referral [facility] Work Phone: Reagin Ab [Presence] in Serum by RPR RPR Lab Routine Missed menses Ordered: 07/03/2023 [facility] Comment on above: Ordered: 07/03/2023 Rubella antibody, IgG Rubella an tibody, IgG Lab Routine Missed menses Ordered: 07/03/2023 [facility] Comment on above: Ordered: 07/03/2023 End: 07-07-2020 US DUP ABD PEL RETRO SCROT LIMITED US DUP ABD PEL RETRO SCROT LIMITED Imaging STAT Once for 1 Occurrences starting 07/07/2020 until 07/07/2020 [place] Comment on above: Once for 1 Occurrenc es starting 07/07/2020 until 07/07/2020 US DUP ABD PEL RETRO SCROT LIMITED US DUP ABD PEL RETRO SCROT LIMITED Imaging STAT 07/08/2020 12:13 AM EST [place] Payers Date Payer Category Payer Unknown BCBS BCBS [id number] 2023-Present [phone] [address] [place] [address] [id number] 2023 Unknown [id number] 2021 Self-pay [id number] 2002 Unknown [id number] 2002 Unknown [id number] 2002 Unknown [id number] 2002 Unknown [id number] 2002 Unknown [id number] 2002 Unknown [id number] 2002 Unknown [id number] 2002 Unknown [id number] 2002 Unknown [id number] 2002 Unknown [id number] 2002 Unknown [id number] 2002 Unknown [id number] 1957 Medicaid [id number] 1957 Unknown [id number] Unknown [id number] Social History Date Type Detail Facility Start: 07-07-2020 End: 07-16-2023 Tobacco smoking status AZIS Never smoker [facility] Start: 07-07-2020 Tobacco use and exposure Never used [place] Start: 2002 Sex Assigned At Not on file [place] Exposure to SARS-CoV-2 (event) Not sure [place] Start: 10-19-2021 Tobacco smoking status AZIS Smoker (finding) [facility] Start: 2002 Sex Assigned At Female F [facility] Tobacco smoking status NHIS Tobacco smoking consumption unknown [facility] Start: 05-22-2023 [facility] Start: 07-16-2023 Gender identity Not on file [facility] Start: 07-16-2023 End: 07-17-2023 Alcohol intake Lifetime non-drinker (finding) [facility] Healthcare Start: 07-16-2023 History of Social function [facility] Tobacco smoking status No Smoking Status Entered [facility] Functional Status Date Assessment Result Facility 10-26-2023 Functional Status N/A [facility] Clinical Notes 07-03-2023 to 10-26-2023 Chung Yousif, - 07/17/2023 11:10 AM Costa Kilgore LPN - 07/03/2023 1:00 PM EST Note Date & Type Note Facility 10-26-2023 Note The following Patien t Education Materials have been given to the patient: EducationMaterial [facility] 10-26-2023 Hospital Discharg e instructions Patient Education [...] provider. Document Revised: 01/02/2022 Document Reviewed: 01/02/2022 In[employer] Patient Education 2022 EGEN. 10/26/2023 03:10:04 Vaginal Bleeding During , Second [...] help with your regular activities. Medicines Take rzfs-liz-sdarrby and prescription medicines only as told by [...] provider. Document Revised: 02/08/2021 Document Reviewed: 02/08/2021 Elsevier Patient Education 2022 EGEN. 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 [...] your back during . General instructions Take ycvh-thh-vrgivqp and prescription medicines only as told by [...] care provider for managing back pain. Take tjwg-jln-ljuctdn and prescription medicines only as told by [...] provider. Document Revised: 08/01/2021 Document Reviewed: 08/01/2021 [employer] Patient Education 2022 EGEN. Follow Up Care 10/25/2023 23:39:34 With:Chung YOUSIF Address: [address] [place] [address]- Business (1) When:11/04/2023 [facility] 10-25-2023 Evaluation + Plan note Diagnostic Tests PendingUrine Culture 10/25/23 [facility] 07-17-2023 History of Presen t illness Narrative Reason for Appointment: Patient ID: Teodoro Upton is a 23 y.o. female who presents for Routine Visit Patient presents today for Return OB appointment. Current Medications: has a current medication list which includes the following prescription(s): syjdaodf-pzh-jh-fa and promethazine. Medical History: Active Ambulatory Problems Diagnosis Date Noted No Active Ambulatory Problems Resolved Ambulatory Problems Diagnosis Date Noted No Resolved Ambulatory Problems Past Medical History: Diagnosis Date ADD (attention deficit disorder) Asthma ([facility]) Family History Problem Relation Name Age of [...] Chung Yousif DO documented in this encounter [facility] 07-03-2023 History of Presen t illness Narrative [...] or undercooked meat, stay away from [facility], do not change litter boxes, eat [...] Sarina Kilgore LPN documented in this encounter [facility] Healthcare Evaluation note No assessment inform ation available [facility] Work Phone: Evaluation note Diagnosis Missed menses Nausea and vomiting, unspecified vomiting type documented in this encounter [facility] HealthcareEvaluation note* Diagnosis First trimester state, incidental Vaginal bleeding in Threatened miscarriage Threatened , unspecified as to episode of care with uncertain viability, single or unspecified fetus documented in this encounter [facility] HealthcareHospital course Narrative No data available for this section [facility] Additional Instructions Please follow up as we discussed so you can have your concerns further evaluated.[facility] Work Phone: Progress note No data available for this section [facility] Discharge Instructions * Instructions* Brenda Stoner, - 07/08/2020 [facility] ED Clinic List Healthcare Providers Services Day of Week/ Hours [place] for [facility] Services [address] [facility] Pediatric Primary Care Adult Primary Care [employer]//Specialty Clinics Friday 8:00a 4:30p [address] Adult Medicine, Pediatrics, [employer] Friday 8:30a 4:30p [facility] Surgery [address] [facility] Friday 8:30a 11:00a [facility] [address] [facility] Adult Internal Medicine ([facility]) [employer] Clinic Pediatric Clinic Friday, Friday, , Friday 8:00a 4:30p Wed 1:00p 4:30p Friday, Friday, 8:00a 5:00p; Friday 8:00a 12:30p Friday 1p 4p Friday, Friday, , Friday 8:30a 4:15p Wed 12:30p 4:15p [facility] [address] [facility] Pediatric Primary Care Adult Primary Care OB/ Friday, Friday 8a 12p 8a 4:45p [facility] [address] [place] [address] [place] [address] # Pre & Post Adoption Counseling Support / nutrition Care Reward Incentive Program [facility] Fri, , Fri, Fri 10:00a 4:30p Thur 10:00a 7:30p E Gomez Location Friday - Friday 10a 4:30p [facility] Clinics [employer] [address] [facility] Adult Internal Medicine [address] [facility] Pediatrics [address] [facility] [address] Neuro / Headache [address] [facility] Friday 8:30a 5p [facility] Family Practice [address] [facility] Family Practice Fri, , , Fri 9:00a 4:30p Wed 1:00p 4:30p [facility] Family Practice [address] [facility] [address] Family Practice Friday 8:30a 5:00p [facility] Specialty Clinics [address] [facility] [address] Burn/Plastic, ENT, GI, Orthopedics, Surgical / Trauma, Urology, Vascular Friday 8:00 4:30p Call for an appointment [facility] [address] [facility] Adult Medicine, Eye Clinic, Dental Patient must be certified homeless Under age 18 not accepted Friday 8:00 4:30p [facility] [address] [facility] Family Practice OB Friday, Friday, Friday, Friday 9a 5p 9a 6p Friday (OB only) [facility] [address] [facility] OB/ Friday 11a 7p , Fri, 9a 5p Friday 8a 4p 1st Friday 9a 1p Podiatry Clinic [address] [facility] [address] Friday 8:00 4:[address] Free nurse visits [place] programs Counseling Class Call or walk in [place] [id number] [place] Various Clinics 8a 5:30p [facility] Family Medicine [facility] Center [address] [facility] [facility] Practice Friday 8a 4:30p [address] [id number] [address] [place], [place] [id number] Friday 8a 4:30p Friday 8a 4:30p 8a 8p Outpatient Clinics [facility] [address] [facility] Friday 9a 5p Diabetic Education Services Call for an appointment [facility] Heart Failure Clinic [address] [facility] Friday 8:30a 4p Dental Services [facility] [facility] [address] [place] [address] Must have source of income and must bring (2) recent check stubs to appointment By appointment only [facility] [address] [facility] Patient must be homeless, call for eligibility guidelines. Under age 18 NOT accepted Days and hours vary (Doors open at 8:30a day of week varies) Call for an appointment Miscellaneous Information [address] [facility] [phone] Call for an appointment H.E.L.P (Hospital Eligibility Link Program) toll free For financial assistance * Attachments The following attachments cannot be sent through Care Everywhere. * Bacterial Vaginosis ([place]) * UTI (Urinary Tract Infection): Female ([place]) * Vitamin D: General Info ([place]) documented in this encounter Assessments Diagnosis BV [...] section and content) DATE CREATED AUTHOR 07/16/2020 [facility] DATE CREATED AUTHOR AUTHOR'S ORGANIZ ATION 09/07/2022 [facility] DATE CREATED AUTHOR AUTHOR'S ORGANIZ ATION 03/13/2023 [facility] DATE CREATED AUTHOR AUTHOR'S ORGANIZ ATION 10/27/2023 [facility] DATE CREATED AUTHOR AUTHOR'S ORGANIZ ATION [facility]/31/2023 [facility] DATE CREATED AUTHOR AUTHOR'S ORGANIZ ATION 11/21/2023 [facility] EPIC Care Teams (unrecognized [...] BE BASED ON THE PRIMARY CLINICAL RECORDS. [facility] provides no warranty or guarantee of the accuracy or completeness of information in this document.
== END 2023-12-03 14:29 | disposition home or self-care (01) ==
LOC: NOMS 14:28
PROVIDERS: Visit Provider Obstetrics & Gynecology
DX: O26.843 Uterine size-date discrepancy, third trimester (principal); Z3A.30 30 weeks gestation of pregnancy
CPT/HCPCS: 76816

== ENCOUNTER 2023-12-05 14:39 | Outpatient (OUT) | payer MEDICAID, SELFPAY ==
--- OUTSIDE RECORDS SUMMARY | 2023-12-05 14:44 | XMS_ITS ---
Patient Summarization (C-CDA 2.1 CCD) Created on: December 05, 2023 DIVYA UPTONSAADIA : 2000 Sex: Female Demographics Address [address] [place] [address] Preferred Language en Marital Status Single Anabaptism Affiliation Unknown Race Unknown Ethnic Group Not or Lati no Author Organization Sample organization Care Team Providers Care Manager Of Training And Development Name Role Phone Unavailable Primary Care Provider [...] Admitting Unavailable Unavailable Primary Care Provider Unavailsaadia e NONE, XXXX Primary Care Physician Unavailab Fuentes Estrada Attending Unavailable Fuentes Florentino Admitting Unavailable Fuentes Florentino Attending Unavailable Fuentes Florentino Admitting Unavailable CHUNG YOUSIF Attending Unavailable HALIMA CULLEN Attending Unavailable CHUNG YOUSIF Attending Unavailable CHUNG YOUSIF Attending Unavailable HALIMA CULLEN Attending Unavailable CHUNG YOUSIF Attending Unavailable CHUNG YOUSIF Attending Unavailable Allergies Allergy Classification Reported Allergen(s) Allergy Type Date of Onset Reaction(s) Facility (1 source) Latex Propensity to adverse reactions to drug 07-07-2020 [facility], [place] Encounters Encounter Date Encounter Type Care Provider Facility Start: 12-03-2023 End: 12-03-2023 ambulatory CHUNG YOUSIF Not Available Start: 11-19-2023 End: 11-19-2023 ambulatory CHUNG BENJA Not Available Start: 11-04-2023 End: 11-04-2023 ambulatory HALIMA SHARMAEY Not Available Start: 10-26-2023 End: 10-26-2023 ambulatory Fuentes Florentino Facility:[facility] Start: 10-25-2023 End: 10-26-2023 OB Triage Fuentes Florentino [facility] Start: 10-07-2023 End: 10-07-2023 ambulatory CHUNG BENJA Not Available Start: 09-09-2023 End: 09-09-2023 ambulatory CHUNG BENJA Not Available Start: 08-14-2023 End: 08-14-2023 ambulatory HALIMA SHARMAEY Not Available Start: 07-17-2023 End: 07-17-2023 flow [...] Emergency department patient visit PHYSICIAN NO FAMILY Facility:[facility] Start: 10-18-2021 End: 10-19-2021 Emergency department patient visit PHYSICIAN NO [facility] Start: 07-07-2020 End: 07-08-2020 Emergency department patient visit DAVID AQUINO [facility] Start: 07-07-2020 End: 07-08-2020 Emergency department patient visit Lisa Patelis Work Phone: [facility] ED Comment on above: BV (bacterial vagino [...] Refill(s) 0 Start Date: 10/26/23 Status: Ordered Vroycvws-Cjg-Xl-FA ( 1 + IRON PO) (4 sources) Qqgrdmyn-Vqq-Tq-FA ( 1 + IRON PO) Take by [...] Payer Category Payer Unknown BCBS BCBS [id number] [id number] 2023-Present [phone] [address] [place] [address] [id number] 2023 Unknown [id number] 2021 Self-pay [id number] 2000 Unknown [id number] [id number] 2002 Unknown [id number] 2.16.840.1.146744.3.579.2.593 2002 Unknown [id number] 2.16.840.1.086127.3.579.2.593 2002 Unknown [id number] 2.16.840.1.870766.3.579.2.727 2002 Unknown [id number] 2.16.840.1.293268.3.579.2.727 2002 Unknown [id number] 2.16.840.1.458513.3.579.2.1259 2002 Unknown [id number] 2.16.840.1.747596.3.579.2.9 2002 Unknown [id number] 2.16.840.1.068989.3.579.2.9 2002 Unknown [id number] 2.16.840.1.392868.3.579.2.9 2002 Unknown [id number] 2.16.840.1.656861.3.579.2.9 2002 Unknown [id number] 2.16.840.1.140084.3.579.2.9 2002 Unknown [id number] 2.16.840.1.210131.3.579.2.9 2002 Unknown [id number] 2.16.840.1.066691.3.579.2.1259 1957 Medicaid [id number] 1957 Unknown [id number] Unknown [id number] [id number] Plan of Treatment Date Care Activity Detail Author Start: 08-14-2023 End: 08-14-2023 Patient encounter procedure 08/14/2023 11:20 AM EDT Routine [facility] [address] [place] [address] Halima Cullen PA [address] [place] [address] [facility] Start: 07-17-2023 End: 07-17-2024 US for US OB VIABLILITY Imaging Routine with uncertain viability, single or unspecified fetus Expected: 07/17/2023 (Approximate), Expires: 07/17/2024 [facility] Work Phone: Comment on above: Expected: 07/17/2023 (Approximate), Expires: 07/17/2024 Start: 07-17-2023 End: 07-17-2023 Patient encounter procedure [facility] Comment on above: First trimester preg yesika Start: 07-03-2023 End: 07-03-2024 ABO/Rh ABO/Rh Lab Routine Missed menses Expected: 07/03/2023 (Approximate), Expires: 07/03/2024 [facility] Comment on above: Expected: 07/03/2023 [...] Missed menses Expected: 07/03/2023 (Approximate), Expires: 07/03/2024 [facility] Comment on above: Expected: 07/03/2023 (Approximate), Expires: 07/03/2024 Start: 02-01-2020 Influenza vaccination Flu vaccine (# 1) [place], [place] Start: 2018 Meningococcal (ACWY) vaccine (1 - 2-dose series) Meningococcal (ACWY) vaccine (1 - 2-dose series) [place] Start: 2018 Screening for Chlamy nancy trachomatis Chlamydia screen [place], [place] Start: 2017 HIV screening HIV screen [place], [place] Start: 2013 HPV vaccine (1 - 2-d ose series) HPV vaccine (1 - 2-dose series) [place] Start: 2009 DTaP/Tdap/Td vaccine (1 - Tdap) DTaP/Tdap/Td vaccine (1 - Tdap) [place] Start: 2003 Hepatitis A vaccine (1 of 2 - 2-dose series) Hepatitis A vaccine (1 of 2 - 2-dose series) [place], [place] Start: 2003 Measles,Mumps,Rubell a (MMR) vaccine (1 of 2 - Standard series) Measles,Mumps,Rubella (MMR) vaccine (1 of 2 - Standard series) [place] Start: 2003 Varicella vaccine (1 of 2 - 2-dose childhood series) Varicella vaccine (1 of 2 - 2-dose childhood series) [place] Start: 2002 Hepatitis B vaccine (1 of 3 - 3-dose primary series) Hepatitis B vaccine (1 of 3 - 3-dose primary series) [place] Start: 2002 Hepatitis C screening Hepatitis C sc reen [place] Bacteria identified in Urine by Culture Urine culture Microbiology Routine Missed menses Ordered: 07/03/2023 [facility] Comment on above: Ordered: 07/03/2023 End: 07-07-2020 C.trachomatis N.gonorrhoeae DNA C.trachomatis N.gonorrhoeae DNA Microbiology STAT One Time for 1 Occurrences starting 07/07/2020 until 07/07/2020 [place] Comment on above: One Time for 1 Occur rences starting 07/07/2020 until 07/07/2020 C.trachomatis N.gonorrhoeae DNA C.trachomatis N.gonorrhoeae DNA Microbiology Stat Sun[employer] Label print 07/07/2020 11:20 PM EST [place], [place] End: 07-08-2020 Calcium, Ionized Calcium, Ionized Lab STAT One Time for 1 Occurrences starting 07/08/2020 until 07/08/2020 [place] Comment on above: One Time for 1 Occur rences starting 07/08/2020 until 07/08/2020 CBC W Auto Different ial panel - Blood CBC and differential Lab Routine Missed menses Ordered: 07/03/2023 [facility] Comment on above: Ordered: 07/03/2023 End: 07-07-2020 Culture, Urine Culture, Urine Microbiology STAT One Time for 1 Occurrences starting 07/07/2020 until 07[facility]07[facility] on above: One Time for 1 Occur rences starting 07/07/2020 until 07/07/2020 Culture, Urine Culture, Urine Microbiology Stat [employer] Label print 07/07/2020 10:[address] [facility] Hemoglobin A1c measurement Hemoglobin A1c Lab Routine Missed menses Ordered: 07/03/2023 [facility] Comment on above: Ordered: 07/03/2023 Hepatitis B virus surface Ag [Presence] in Serum or Plasma by Immunoassay Hepatitis B surface antigen Lab Routine Missed menses Ordered: 07/03/2023 [facility] Comment on above: Ordered: 07/03/2023 Hepatitis C virus Ab [Presence] in Serum or Plasma by Immunoassay Hepatitis C antibody Lab Routine Missed menses Ordered: 07/03/2023 [facility] Comment on above: Ordered: 07/03/2023 HIV-1/HIV-2 antigen/antibody combination immunoassay HIV-1 and HIV-2 antibodies Lab Routine Missed menses Ordered: 07/03/2023 [facility] Comment on above: Ordered: 07/03/2023 Patient Education Common Breast Problems Pelvic Pain ED [facility] Work Phone: Patient referral [facility] Work Phone: Reagin Ab [Presence] in Serum by RPR RPR Lab Routine Missed menses Ordered: 07/03/2023 [facility] Comment on above: Ordered: 07/03/2023 Rubella antibody, IgG Rubella an tibody, IgG Lab Routine Missed menses Ordered: 07/03/2023 [facility] Comment on above: Ordered: 07/03/2023 End: 07-07-2020 US DUP ABD PEL RETRO SCROT LIMITED US DUP ABD PEL RETRO SCROT LIMITED Imaging STAT Once for 1 Occurrences starting 07/07/2020 until 07/07/[facility] Comment on above: Once for 1 Occurrenc es starting 07/07/2020 until 07/07/2020 US DUP ABD PEL RETRO SCROT LIMITED US DUP ABD PEL RETRO SCROT LIMITED Imaging STAT 07/08/2020 12:[address] Problems Active Problems Problem Classification Problem [...] Range Facility Nursing Assessmenton 024 Nursing Assessment [id number] 2#1.00TIFF Normal [facility] C Urineon 10-28-2023 Bacteria identified Cx [...] Locations R1: This test was performed at: [facility], [address] [place] [address], [address] , , [facility] Comment on above: Performed By: #### 2 [id number] #### [facility] [address] [place] [address] Consent for Treatmenton 10-01 Consent for Treatment [id number] #1.00TIFF [facility] Discharge Instructionson Discharge Instructions [id number] 7#1.00TIFF [facility] Inpatient Clinical Summaryon 10-26-2023 Inpatient Clinical Summary [address] [address] Clinical Summary Person Information [facility] Age: 23 Years : 2000 Sex: Female PCP: NONE, XXXX Marital Status: Single Phone: [phone] Race: or Ethnicity: Non- or Language: [place] African Visit Id: Visit Reason: 24 WEEKS BLEEDING Speciality: Acuity: Obs Enc Type: OB Triage Med Service: Obstetrics Arrival: 10/25/2023 23:36:04 Discharge: 10/26/2023 03:30:56 Dispo Type: Home (Routine DC) Address: [facility] [address] [facility] [id number] Provider Notes: Diagnosis: Problems Active (10/26/2023) Smoker [...] Application Vaginal. Care Team Members: Attending Physician: Mishel CHAVEZ, Fuentes Weaver Consulting Physician: Referring Physician: Follow up: With: Address: When: [facility], [address] [place] [address] [place] [address] [employer] (1) In 9 days 11/04/2023 Patient Education Information: and Urinary Tract Infection; Vaginal Bleeding During , Second Trimester; Back Pain in Normal [facility] Inpatient Patient Summaryon 10-26-2023 Inpatient Patient Summary [address] [address] Patient Discharge Instructions PERSON INFORMATION Name: TEODORO UPTON Date of : 2000 Current Date: 10/26/2023 03:32:18 PHYSICIANS Admitting Physician: Mishel CHAVEZ, Fuentes Weaver Primary Care Physician: ALEXANDRI[place], XXXX PCP Phone Number: Comment: Discharge Diagnosis: [...] results: Follow up: With: Address: When: [facility], [address] [place] [address] , [place] [address] Business (1) In 9 days 11/04/2023 In the event that this physician does not participate in your insurance network, please consult with your insurance company to find a nearby participating provider. Comment: I TEODORO UPTON, have received the attached patient [...] Always wi (more content not included)... Normal [facility] Insurance Correspondenceon 0 10-26-2023 Insurance Correspondence [id number] 8#1.00TIFF Normal [facility] UA with Cult Rflxon 10-26-19 24 Bacteria Auto Ql (U) Trace Normal Trace Fish [facility] Comment on above: Performed By: #### 4 [id number] #### [facility] [address] [place] [address] Bilirubin Ql (U) Negative Normal Negative [facility] Comment on above: Performed By: #### 4 [id number] #### [facility] [address] [place] [address] Clarity (U) Turbid Abnormal Clear [facility] Comment on above: Performed By: #### 4 [id number] #### [facility] [address] [place] [address] Color (U) Yellow Normal Yellow [facility] Comment on above: Result Comment: Micr oscopic readings are only performed on those samples that meet specific criteria set forth by [facility]. Performed By: #### 4 [id number] #### [facility] [address] [place] [address] Epithelial cells.squamous Auto (Urine sed) [#/Area] 5-8 Abnormal 0-2 [facility] Comment on above: Performed By: #### 4 [id number] #### [facility] [address] [place] [address] Glucose Ql (U) Negative Normal Negative [facility] Comment on above: Performed By: #### 4 [id number] #### [facility] [address] [place] [address] Hemoglobin Auto test strip (U) [Mass/Vol] Negative Normal Negative [facility] Comment on above: Performed By: #### 4 [id number] #### [facility] [address] [place] [address] Hyaline casts LM Ql (Urine sed) 0-3 Normal 0-3 [facility] Comment on above: Performed By: #### 4 [id number] #### [facility] [address] [place] [address] Ketones Auto test strip Ql (U) Negative Normal Negative [facility] Comment on above: Performed By: #### 4 [id number] #### [facility] [address] [place] [address] Leukocyte esterase Auto test strip Ql (U) 500 Gerald/uL Abnormal Negative [facility] Comment on above: Performed By: #### 4 [id number] #### [facility] [address] [place] [address] Mucus Auto Ql (U) Trace Normal Negative [facility] Comment on above: Performed By: #### 4 [id number] #### [facility] [address] [place] [address] Nitrite Auto test strip Ql (U) Negative Normal Negative [facility] Comment on above: Performed By: #### 4 [id number] #### [facility] [address] [place] [address] pH (U) 6.0 [pH] Invalid Interpretation Code 5.0-9.0 [facility] Comment on above: Performed By: #### 4 [id number] #### [facility] [address] [place] [address] Protein Ql (U) Trace Abnormal Negative [facility] Comment on above: Performed By: #### 4 [id number] #### [facility] [address] [place] [address] RBC Ql (U) 4-20 Abnormal 0-3 [facility] Comment on above: Performed By: #### 4 [id number] #### [facility] [address] [place] [address] Specific gravity (U) [Rel density] 1.030 Invalid Interpretation Code 1.005-1.030 [facility] Comment on above: Performed By: #### 4 [id number] #### [facility] [address] [place] [address] Type of Urine collection method Clean Catch Normal [facility] Comment on above: Performed By: #### 4 [id number] #### [facility] [address] [place] [address] Urobilinogen (U) [Mass/Vol] Negative Normal Negative [facility] Comment on above: Performed By: #### 4 [id number] #### [facility] [address] [place] [address] WBC Auto (Urine sed) [#/Area] 16-25 Abnormal 0-5 [facility] Comment on above: Performed By: #### 4 [id number] #### [facility] [address] [place] [address] URINALYSISOrdered By: SYSTEM SYSTEM on 10-25-2023 Bacteria Auto Ql (U) Trace /HPF Normal Trace/HPF [facility] UA Auto SS Bilirubin Ql [...] that meet specific criteria set forth by [facility]. Epithelial cells.squamous Auto (Urine sed) [#/Area] [...] 16-25 graded/HPF Invalid Interpretation Code 0-5graded/HP F [facility] UA Auto SS URINALYSISOrdered By: Elijah Hernandez on 10-25-2023 UA Spec Desc Clean Catch (10/25/23 11:53 PM) Normal [facility] UA Auto SS Urinalysis macro (dipstick) panel (U)on 07-17-2023 Bilirubin, UA Negative Negative - 4(70) +++ mg/dL [facility] Blood, UA Negative Negative - 50 William/mcL [facility] Clarity, UA Clear [facility] Color, UA Yellow [facility] Glucose, UA Negative Negative - 1999(110) ++++ mg/dL [facility] Interpretation and review of laboratory results Abnormal [facility] Ketones, UA Negative Negative - 160(16) ++++ mg/dL [facility] Leukocytes, UA Positive Negative - 500+++ Gerald/mcL [facility] Nitrite, UA Negative Negative - Positive [facility] pH, UA 7.0 5 - 9 [facility] Protein, UA Negative Negative - 1999(20) ++++ mg/dL [facility] Spec Grav, UA 1.020 1 - 1.03 [facility] Urobilinogen, UA 0.2 0.2 - 12 mg/dL [facility] HCG ( test) Ql (U)o n 07-03-2023 Interpretation and review of laboratory results Abnormal [facility] Preg Test, Ur Negative [facility] No Panel Informationon 07-03 [facility] Urinalysis macro (dipstick) panel (U)on 07-03-2023 Bilirubin, UA Negative Negative - 4(70) +++ mg/dL [facility] Blood, UA Negative Negative - 50 William/mcL [facility] Clarity, UA Clear [facility] Color, UA Yellow [facility] Glucose, UA Negative Negative - 1999(110) ++++ mg/dL [facility] Interpretation and review of laboratory results Normal [facility] Ketones, UA Negative Negative - 160(16) ++++ mg/dL [facility] Leukocytes, UA Negative Negative - 500+++ Gerald/mcL [facility] Nitrite, UA Negative Negative - Positive [facility] pH, UA 5.5 5 - 9 [facility] Protein, UA Negative Negative - 1999(20) ++++ mg/dL [facility] Spec Grav, UA 1.010 1 - 1.03 [facility] Urobilinogen, UA 1.0 0.2 - 12 mg/dL [facility] XR FOOT RT MIN 3 VIEWSon XR [...] PADDY SAPP Date: 2022-08-30 14:42 Normal [facility] CBC AUTO DIFFon 06-28-2022 BASO # 0.0 103/ul Normal 0.0-0.1 [facility] Comment on above: Performed By: #### C BC #### [facility] [address] [place] [address] Dr. Jerald Poon Basophils/100 WBC (Bld) 0.3 % Normal 0.2-2.0 [facility] Comment on above: Performed By: #### C BC #### [facility] [address] [place] [address] Dr. Jerald Poon EO # 0.1 103/ul Normal 0.0-0.7 [facility] Comment on above: Performed By: #### C BC #### [facility] [address] [place] [address] Dr. Jerald Poon Eosinophils/100 WBC (Bld) 1.1 % Normal 0.9-7.0 [facility] Comment on above: Performed By: #### C BC #### [facility] [address] [place] [address] Dr. Jerald Poon Erythrocyte distribution width (RBC) [Ratio] 14.5 % Normal 11.0-15.0 [facility] Comment on above: Performed By: #### C BC #### [facility] [address] [place] [address] Dr. Jerald Poon Hematocrit (Bld) [Volume fraction] 36.7 % Normal 36.0-48.0 [facility] Comment on above: Performed By: #### C BC #### [facility] [address] [place] [address] Dr. Jerald Poon Hemoglobin (Bld) [Mass/Vol] 13.0 g/dL Normal 12.0-16.0 [facility] Comment on above: Performed By: #### C BC #### [facility] [address] [place] [address] Dr. Jerald Poon IG # 0.04 10e3/ul Critically high 0.00-0.03 [facility] Comment on above: Performed By: #### C BC #### [facility] [address] [place] [address] Dr. Jerald Poon IG % 0.3 % Normal 0.0-0.5 [facility] Comment on above: Performed By: #### C BC #### [facility] [address] [place] [address] Dr. Jerald Poon LYMPH # 3.0 103/ul Normal 1.2-3.8 [facility] Comment on above: Performed By: #### C BC #### [facility] [address] [place] [address] Dr. Jerald Poon Lymphocytes/100 WBC (Bld) 26.2 % Normal 20.5-60.0 [facility] Comment on above: Performed By: #### C BC #### [facility] [address] [place] [address] Dr. Jerald Poon MANUAL DIFF REQ NO Normal [facility] Comment on above: Performed By: #### C BC #### [facility] [address] [place] [address] Dr. Jerald Poon MCH (RBC) [Entitic mass] 27.1 pg Normal 26.7-34.0 [facility] Comment on above: Performed By: #### C BC #### [facility] [address] [place] [address] Dr. Jerald Poon MCHC (RBC) [Mass/Vol] 35.4 g/dL Critically high 29.9-35.2 [facility] Comment on above: Performed By: #### C BC #### [facility] [address] [address] [address] Jerald Poon MCV (RBC) [Entitic vol] 76.6 fL Critically low 81.0-99.0 [facility] Comment on above: Performed By: #### C BC #### [facility] [address] [address] [address] Jerald Poon MONO # 0.8 103/ul Normal 0.3-0.8 [facility] Comment on above: Performed By: #### C BC #### [facility] [address] [place] [address] Dr. Jerald Poon Monocytes/100 WBC (Bld) 7.0 % Normal 1.7-12.0 [facility] Comment on above: Performed By: #### C BC #### [facility] [address] [place] [address] Dr. Jerald Poon NEUT # 7.5 103/ul Critically high 1.4-6.5 [facility] Comment on above: Performed By: #### C BC #### [facility] [address] [place] [address] Dr. Jerald Poon Neutrophils/100 WBC (Bld) 65.1 % Normal 43.0-75.0 [facility] Comment on above: Performed By: #### C BC #### [facility] [address] [place] [address] Dr. Jerald Poon Platelet mean volume (Bld) [Entitic vol] 10.0 fL Normal 9.5-13.5 [facility] Comment on above: Performed By: #### C BC #### [facility] [address] [place] [address] Dr. Jerald Poon PLT 387 103/ul Normal 150-450 [facility] Comment on above: Performed By: #### C BC #### [facility] [address] [address] [address] Jerald Poon RBC 4.79 106/ul Normal 4.20-5.40 [facility] Comment on above: Performed By: #### C BC #### [facility] [address] [place] [address] Dr. Jerald Poon WBC 11.6 103/ul Critically high 4.0-11.0 [facility] Comment on above: Performed By: #### C BC #### [facility] [address] [place] [address] Dr. Jerald Poon CULTURE URINEon 06-28-2022 CULTURE URINE Culture Observations: LIGHT GROWTH OF MIXED GENITAL ZACARIAS. NO POTENTIAL PATHOGENS SEEN. Normal [facility] Comment on above: Performed By: #### U RCX #### [facility] [address] [place] [address] Dr. Jerald Poon ER URINE PROFILEon Bilirubin Ql (U) Negative Normal NEGATIVE [facility] Comment on above: Performed By: #### U MICRO, ERUR #### [facility] [address] [place] [address] Dr. Jerald Poon Clarity (U) CLEAR Normal CLEAR [facility] Comment on above: Performed By: #### U MICRO, ERUR #### [facility] [address] [place] [address] Dr. Jerald Poon Color (U) YELLOW Normal YELLOW [facility] Comment on above: Performed By: #### U MICRO, ERUR #### [facility] [address] [place] [address] Dr. Jerald Poon ERUAHD A micrscopic examination will be performed if indicated. Normal [facility] Comment on above: Performed By: #### U MICRO, ERUR #### [facility] [address] [place] [address] Dr. Jerald Poon Glucose Ql (U) Negative Normal NEGATIVE [facility] Comment on above: Performed By: #### U MICRO, ERUR #### [facility] [address] [place] [address] Dr. Jerald Poon Hemoglobin Ql (U) Negative Normal NEGATIVE [facility] Comment on above: Performed By: #### U MICRO, ERUR #### [facility] [address] [place] [address] Dr. Jerald Poon Ketones Ql (U) 40 mg/dl Abnormal NEGATIVE [facility] Comment on above: Performed By: #### U MICRO, ERUR #### [facility] [address] [place] [address] Dr. Jerald Poon LEUKOCYTES TRACE Abnormal NEGATIVE [facility] Comment on above: Performed By: #### U MICRO, ERUR #### [facility] [address] [place] [address] Dr. Jerald Poon Nitrite Ql (U) Negative Normal NEGATIVE [facility] Comment on above: Performed By: #### U MICRO, ERUR #### [facility] [address] [place] [address] Dr. Jerald Poon pH (U) 6.0 [pH] Normal 5-9 [facility] Comment on above: Performed By: #### U MICRO, ERUR #### [facility] [address] [place] [address] Dr. Jerald Poon SPEC GRAVITY >=1.030 Abnormal 1.005-<=1.02 5 [facility] Comment on above: Performed By: #### U MICRO, ERUR #### [facility] [address] [place] [address] Dr. Jerald Poon UA PROTEIN Negative Normal NEGATIVE/ TRACE [facility] Comment on above: Performed By: #### U MICRO, ERUR #### [facility] [address] [place] [address] Dr. Jerald Poon UR MICRO IND INDICATED Normal [facility] Comment on above: Performed By: #### U MICRO, ERUR #### [facility] [address] [place] [address] Dr. Jerald Poon Urobilinogen Qn (U) 0.2 {Lyly'U}/dL Normal 0.2 - 1. 0 [facility] Comment on above: Performed By: #### U MICRO, ERUR #### [facility] [address] [place] [address] Dr. Jerald Poon PREG QUANT HCGon 01-27-2023 HCG QUANT <1 Normal [facility] Comment on above: Performed By: #### P REGQNT #### [facility] [address] [place] [address] Dr. Jerald Poon HCG RANGE SEE BELOW Normal [facility] Comment on above: Result Comment: 5-50 0.2-1 WEEK 50-500 1-2 WEEKS 100-5,000 2-3 WEEKS 500-10,000 3-4 WEEKS 1,000-50,000 4-5 WEEKS 10,000-100,000 5-6 WEEKS 15,000-200,000 6-8 WEEKS 10,000-100,000 2-3 MONTHS Performed By: #### P REGQNT #### [facility] [address] [place] [address] Dr. Jerald Poon PROF CHEM 8 (BAS METB)on Anion gap [Moles/Vol] 14.0 mmol/L Normal [facility] Comment on above: Performed By: #### C BC #### [facility] [address] [place] [address] Dr. Jerald Poon Calcium [Mass/Vol] 9.6 mg/dL Normal 8.5-10.1 [facility] Comment on above: Performed By: #### C BC #### [facility] [address] [place] [address] Dr. Jerald Poon Chloride [Moles/Vol] 101 mmol/L Normal 98-107 [facility] Comment on above: Performed By: #### C BC #### [facility] [address] [place] [address] Dr. Jerald Poon CO2 [Moles/Vol] 25.4 mmol/L Normal 21.0-32.0 [facility] Comment on above: Performed By: #### C BC #### [facility] [address] [place] [address] Dr. Jerald Poon Creatinine [Mass/Vol] 0.92 mg/dL Normal 0.55-1.02 [facility] Comment on above: Performed By: #### C BC #### [facility] [address] [place] [address] Dr. Jerald Poon EGFR-AF [place] >60 Normal >=60 [facility] Comment on above: Performed By: #### C BC #### [facility] [address] [place] [address] Dr. Jerald Poon EGFR-NON AF [place] >60 Normal >=60 [facility] Comment on above: Performed By: #### C BC #### [facility] [address] [address] [address] Jerald Poon Glucose [Mass/Vol] 101 mg/dL Normal 74-106 [facility] Comment on above: Performed By: #### C BC #### [facility] [address] [place] [address] Dr. Jerald Poon Potassium [Moles/Vol] 3.4 mmol/L Critically low 3.5-5.1 [facility] Comment on above: Performed By: #### C BC #### [facility] [address] [place] [address] Dr. Jerald Poon Sodium [Moles/Vol] 137 mmol/L Normal 136-145 [facility] Comment on above: Performed By: #### C BC #### [facility] [address] [place] [address] Dr. Jerald Poon Urea nitrogen [Mass/Vol] 11.0 mg/dL Normal 7.0-18.0 [facility] Comment on above: Performed By: #### C BC #### [facility] [address] [place] [address] Dr. Jerald Poon Urea nitrogen/Creatinine [Mass ratio] 12.0 mg/mg Normal [facility] Comment on above: Performed By: #### C BC #### [facility] [address] [place] [address] Dr. Jerald Poon TSHon 06-28-2022 TSH 1.319 uIU/mL Normal 0.358-3.740 [facility] Comment on above: Performed By: #### C BC #### [facility] [address] [place] [address] Dr. Jerald Poon URINE MICROSCOPIC ONLYon BACTERIA SMALL Abnormal NONE SEEN [facility] Comment on above: Performed By: #### U MICRO, ERUR #### [facility] [address] [place] [address] Dr. Jerald Poon Bacteria identified Cx Nom (U) INDICATED Normal [facility] Comment on above: Performed By: #### U MICRO, ERUR #### [facility] [address] [place] [address] Dr. Jerald Poon CAST NONE SEEN Normal NONE SEEN [facility] Comment on above: Performed By: #### U MICRO, ERUR #### [facility] [address] [place] [address] Dr. Jerald Poon Crystals LM Nom (Urine sed) NONE SEEN Normal NONE SEEN [facility] Comment on above: Performed By: #### U MICRO, ERUR #### [facility] [address] [place] [address] Dr. Jerald Poon Epithelial cells LM Ql (Urine sed) FEW Abnormal NONE SEEN /RARE [facility] Comment on above: Performed By: #### U MICRO, ERUR #### [facility] [address] [place] [address] Dr. Jerald Poon MUCOUS NONE SEEN Normal NONE SEEN [facility] Comment on above: Performed By: #### U MICRO, ERUR #### [facility] [address] [place] [address] Dr. Jerald Poon RBC NONE SEEN Abnormal 0-2 [facility] Comment on above: Performed By: #### U MICRO, ERUR #### [facility] [address] [place] [address] Dr. Jerald Poon WBC 2-5 Abnormal NONE SEEN [facility] Comment on above: Performed By: #### U MICRO, ERUR #### [facility] [address] [place] [address] Dr. Jerald Poon CBC AUTO DIFFon 04-01-2022 BASO # 0.0 103/ul Normal 0.0-0.1 [facility] Comment on above: Performed By: #### C BC #### [facility] [address] [place] [address] Dr. Jerald Poon Basophils/100 WBC (Bld) 0.5 % Normal 0.2-2.0 [facility] Comment on above: Performed By: #### C BC #### [facility] [address] [place] [address] Dr. Jerald Poon EO # 0.1 103/ul Normal 0.0-0.7 [facility] Comment on above: Performed By: #### C BC #### [facility] [address] [place] [address] Dr. Jerald Poon Eosinophils/100 WBC (Bld) 1.7 % Normal 0.9-7.0 [facility] Comment on above: Performed By: #### C BC #### [facility] [address] [place] [address] Dr. Jerald Poon Erythrocyte distribution width (RBC) [Ratio] 14.2 % Normal 11.0-15.0 [facility] Comment on above: Performed By: #### C BC #### [facility] [address] [place] [address] Dr. Jerald Poon Hematocrit (Bld) [Volume fraction] 36.7 % Normal 36.0-48.0 [facility] Comment on above: Performed By: #### C BC #### [facility] [address] [place] [address] Dr. Jerald Poon Hemoglobin (Bld) [Mass/Vol] 12.1 g/dL Normal 12.0-16.0 [facility] Comment on above: Performed By: #### C BC #### [facility] [address] [place] [address] Dr. Jerald Poon IG # 0.01 10e3/ul Normal 0.00-0.03 [facility] Comment on above: Performed By: #### C BC #### [facility] [address] [place] [address] Dr. Jerald Poon IG % 0.1 % Normal 0.0-0.5 [facility] Comment on above: Performed By: #### C BC #### [facility] [address] [place] [address] Dr. Jerald Poon LYMPH # 2.3 103/ul Normal 1.2-3.8 [facility] Comment on above: Performed By: #### C BC #### [facility] [address] [place] [address] Dr. Jerald Poon Lymphocytes/100 WBC (Bld) 30.8 % Normal 20.5-60.0 [facility] Comment on above: Performed By: #### C BC #### [facility] [address] [place] [address] Dr. Jerald Poon MANUAL DIFF REQ NO Normal [facility] Comment on above: Performed By: #### C BC #### [facility] [address] [place] [address] Dr. Jerald Poon MCH (RBC) [Entitic mass] 27.3 pg Normal 26.7-34.0 [facility] Comment on above: Performed By: #### C BC #### [facility] [address] [place] [address] Dr. Jerald Poon MCHC (RBC) [Mass/Vol] 33.0 g/dL Normal 29.9-35.2 [facility] Comment on above: Performed By: #### C BC #### [facility] [address] [place] [address] Dr. Jerald Poon MCV (RBC) [Entitic vol] 82.7 fL Normal 81.0-99.0 [facility] Comment on above: Performed By: #### C BC #### [facility] [address] [place] [address] Dr. Jerald Poon MONO # 0.8 103/ul Normal 0.3-0.8 [facility] Comment on above: Performed By: #### C BC #### [facility] [address] [place] [address] Dr. Jerald Poon Monocytes/100 WBC (Bld) 10.6 % Normal 1.7-12.0 [facility] Comment on above: Performed By: #### C BC #### [facility] [address] [place] [address] Dr. Jerald Poon NEUT # 4.2 103/ul Normal 1.4-6.5 [facility] Comment on above: Performed By: #### C BC #### [facility] [address] [place] [address] Dr. Jerald Poon Neutrophils/100 WBC (Bld) 56.3 % Normal 43.0-75.0 [facility] Comment on above: Performed By: #### C BC #### [facility] [address] [place] [address] Dr. Jerald Poon Platelet mean volume (Bld) [Entitic vol] 10.2 fL Normal 9.5-13.5 [facility] Comment on above: Performed By: #### C BC #### [facility] [address] [place] [address] Dr. Jerald Poon PLT 375 103/ul Normal 150-450 [facility] Comment on above: Performed By: #### C BC #### [facility] [address] [place] [address] Dr. Jerald Poon RBC 4.44 106/ul Normal 4.20-5.40 [facility] Comment on above: Performed By: #### C BC #### [facility] [address] [place] [address] Dr. Jerald Poon WBC 7.5 103/ul Normal 4.0-11.0 [facility] Comment on above: Performed By: #### C BC #### [facility] [address] [place] [address] Dr. Jerald Poon ER URINE PROFILEon 2 Bilirubin Ql (U) Negative Normal NEGATIVE [facility] Comment on above: Performed By: #### C BC #### [facility] [address] [place] [address] Dr. Jerald Poon Clarity (U) CLEAR Normal CLEAR [facility] Comment on above: Performed By: #### C BC #### [facility] [address] [place] [address] Dr. Jerald Poon Color (U) YELLOW Normal YELLOW [facility] Comment on above: Performed By: #### C BC #### [facility] [address] [place], [place] [id number] Dr. Jerald CEBALLOS A micrscopic examination will be performed if indicated. Normal [facility] Comment on above: Performed By: #### C BC #### [facility] [address] [place] [address] Dr. Jerald Poon Glucose Ql (U) Negative Normal NEGATIVE [facility] Comment on above: Performed By: #### C BC #### [facility] [address] [place] [address] Dr. Jerald Poon Hemoglobin Ql (U) Negative Normal NEGATIVE [facility] Comment on above: Performed By: #### C BC #### [facility] [address] [place] [address] Dr. Jerald Poon Ketones Ql (U) Negative Normal NEGATIVE [facility] Comment on above: Performed By: #### C BC #### [facility] [address] [place] [address] Dr. Jerald Poon LEUKOCYTES Negative Normal NEGATIVE [facility] Comment on above: Performed By: #### C BC #### [facility] [address] [place] [address] Dr. Jerald Poon Nitrite Ql (U) Negative Normal NEGATIVE [facility] Comment on above: Performed By: #### C BC #### [facility] [address] [place] [address] Dr. Jerald Poon pH (U) 7.0 [pH] Normal 5-9 [facility] Comment on above: Performed By: #### C BC #### [facility] [address] [place] [address] Dr. Jerald Poon SPEC GRAVITY 1.025 Normal 1.005-<=1.02 5 [facility] Comment on above: Performed By: #### C BC #### [facility] [address] [place] [address] Dr. Jerald Poon UA PROTEIN Negative Normal NEGATIVE/ TRACE [facility] Comment on above: Performed By: #### C BC #### [facility] [address] [place] [address] Dr. Jerald Poon UR MICRO IND NOT INDICATED Normal [facility] Comment on above: Performed By: #### C BC #### [facility] [address] [place] [address] Dr. Jerald Poon Urobilinogen Qn (U) 1.0 {Lyly'U}/dL Normal 0.2 - 1. 0 [facility] Comment on above: Performed By: #### C BC #### [facility] [address] [place] [address] Dr. Jerald Poon PREG QUANT HCGon 04-01-2022 HCG QUANT 1 mIU/mL Normal [facility] Comment on above: Performed By: #### P REGQNT #### [facility] [address] [place] [address] Dr. Jerald Poon HCG RANGE SEE BELOW Normal [facility] Comment on above: Result Comment: 5-50 0.2-1 WEEK 50-500 1-2 WEEKS 100-5,000 2-3 WEEKS 500-10,000 3-4 WEEKS 1,000-50,000 4-5 WEEKS 10,000-100,000 5-6 WEEKS 15,000-200,000 6-8 WEEKS 10,000-100,000 2-3 MONTHS Performed By: #### P REGQNT #### [facility] [address] [place] [address] Dr. Jerald Poon PROF 14(COMP METB)on 022 Albumin [Mass/Vol] 3.6 g/dL Normal 3.4-5.0 [facility] Comment on above: Performed By: #### C MP #### [facility] [address] [place] [address] Dr. Jerald Poon Albumin/Globulin [Mass ratio] 0.8 {ratio} Normal [facility] Comment on above: Performed By: #### C MP #### [facility] [address] [place] [address] Dr. Jerald Poon ALP [Catalytic activity/Vol] 65 U/L Normal 46-116 [facility] Comment on above: Performed By: #### C MP #### [facility] [address] [place] [address] Dr. Jerald Poon ALT [Catalytic activity/Vol] 22 U/L Normal 14-59 [facility] Comment on above: Performed By: #### C MP #### [facility] [address] [address] [address] Jerald Poon Anion gap [Moles/Vol] 10.3 mmol/L Normal [facility] Comment on above: Performed By: #### C MP #### [facility] [address] [address] [address] Jerald Poon AST [Catalytic activity/Vol] 14 U/L Critically low 15-37 [facility] Comment on above: Performed By: #### C MP #### [facility] [address] [address] [address] Jerald Poon Bilirubin [Mass/Vol] 0.1 mg/dL Critically low 0.2-1.0 [facility] Comment on above: Performed By: #### C MP #### [facility] [address] [address] [address] Jerald Poon Calcium [Mass/Vol] 8.6 mg/dL Normal 8.5-10.1 [facility] Comment on above: Performed By: #### C MP #### [facility] [address] [place] [address] Dr. Jerald Poon Chloride [Moles/Vol] 104 mmol/L Normal 98-107 [facility] Comment on above: Performed By: #### C MP #### [facility] [address] [address] [address] Jerald Poon CO2 [Moles/Vol] 28.1 mmol/L Normal 21.0-32.0 [facility] Comment on above: Performed By: #### C MP #### [facility] [address] [address] [address] Jerald Poon Creatinine [Mass/Vol] 0.99 mg/dL Normal 0.55-1.02 [facility] Comment on above: Performed By: #### C MP #### [facility] [address] [address] [address] Jerald Poon EGFR-AF [place] >60 Normal >=60 [facility] Comment on above: Performed By: #### C MP #### [facility] [address] [address] [address] Jerald Poon EGFR-NON AF [place] >60 Normal >=60 [facility] Comment on above: Performed By: #### C MP #### [facility] [address] [address] [address] Jerald Poon Globulin (S) [Mass/Vol] 4.5 g/dL Normal [facility] Comment on above: Performed By: #### C MP #### [facility] [address] [address] [address] Jerald Poon Glucose [Mass/Vol] 94 mg/dL Normal 74-106 [facility] Comment on above: Performed By: #### C MP #### [facility] [address] [address] [address] Jerald Poon Potassium [Moles/Vol] 3.4 mmol/L Critically low 3.5-5.1 [facility] Comment on above: Performed By: #### C MP #### [facility] [address] [address] [address] Jerald Poon Protein [Mass/Vol] 8.1 g/dL Normal 6.4-8.2 [facility] Comment on above: Performed By: #### C MP #### [facility] [address] [address] [address] Jerald Poon Sodium [Moles/Vol] 139 mmol/L Normal 136-145 [facility] Comment on above: Performed By: #### C MP #### [facility] [address] [address] [address] Jerald Poon Urea nitrogen [Mass/Vol] 8.0 mg/dL Normal 7.0-18.0 [facility] Comment on above: Performed By: #### C MP #### [facility] [address] [address] [address] Jerald Poon Urea nitrogen/Creatinine [Mass ratio] 8.1 mg/mg Normal [facility] Comment on above: Performed By: #### C MP #### [facility] [address] [address] [address] Jerald Poon US PELVIS TRANSVAGon 2 022 US PELVIS TRANSVAG US PELVIS TRANSVAG [...] LUH MANRIQUE Date: 2022-04-01 21:55 Normal [facility] Automated erythrocytes count in urine sediment (number/area)Ordered By: Anders Sesay on 10-19-2021 RBC Auto (Urine sed) [#/Area] 1-2 [HPF] [facility] Automated leukocytes count i n urine sediment (number/area)Ordered By: Anders Sesay on 10-19-2021 WBC Auto (Urine sed) [#/Area] 3-4 [HPF] [facility] Basophils Auto (Bld) [#/Vol] Ordered By: Anders Sesay on 10-19-2021 Basophils (Bld) [#/Vol] 0.1 10*3/uL 0.0-0.2 [facility] Basophils/100 WBC Auto (Bld) Ordered By: Anders Sesay on 10-19-2021 Basophils/100 WBC (Bld) 0.6 % [facility] Bilirubin Test strip Ql (U)O rdered By: Anders Sesay on 10-19-2021 Bilirubin Ql (U) Negative Negative [facility] Blood hemoglobin measurement (mass/volume)Ordered By: Anders Sesay on 10-19-2021 Hemoglobin (Bld) [Mass/Vol] 13.2 g/dL 11.8-15.4 [facility] Blood leukocytes automated c ount (number/volume)Ordered By: Anders Sesay on 10-19-2021 WBC (Bld) [#/Vol] 9.1 10*3/uL 4.5-11.0 [facility] Body fluid albumin measureme nt (mass/volume)Ordered By: Anders Sesay on 10-19-2021 Albumin (Body fld) [Mass/Vol] 3.8 g/dL 3.2-5.5 [facility] Color Auto (U)Ordered By: Jason Sesay on 10-19-2021 Color (U) Yellow Yellow [facility] Creatinine and Glomerular fi ltration rate.predicted panel (S/P/Bld)Ordered By: Anders Sesay on 10-19-2021 Creatinine [Mass/Vol] 0.87 mg/dL 0.44-1.03 [facility] Eosinophils Auto (Bld) [#/Vo l]Ordered By: Anders Sesay on 10-19-2021 Eosinophils (Bld) [#/Vol] 0.1 10*3/uL 0.0-0.45 [facility] Eosinophils/100 WBC Auto (Bl d)Ordered By: Anders Sesay on 10-19-2021 Eosinophils/100 WBC (Bld) 0.9 % [facility] Erythrocyte distribution wid th Auto (RBC) [Ratio]Ordered By: Anders Sesay on 10-19-2021 Erythrocyte distribution width (RBC) [Ratio] 16.4 % 11.9-15.3 [facility] Estimated glomerular filtrat ion rate (GFR) non- AmericanOrdered By: Anders Sesay on 10-19-2021 GFR/1.73 sq M.predicted among non-blacks MDRD (S/P/Bld) [Vol rate/Area] > 60 mL/Min [facility] Globulin Calc (S) [Mass/Vol] Ordered By: Anders Sesay on 10-19-2021 Globulin (S) [Mass/Vol] 4.3 g/dL [facility] HCG ( test) IA.rapi d Ql (U)Ordered By: Anders Sesay on 10-19-2021 HCG ( test) Ql (U) Negative [facility] Hematocrit Auto (Bld) [Volum e fraction]Ordered By: Anders Sesay on 05-20-2022 Hematocrit (Bld) [Volume fraction] 40.2 % 34.0-46.4 [facility] Ketones Auto test strip (U) [Mass/Vol]Ordered By: Anders Sesay on 10-19-2021 Ketones (U) [Mass/Vol] Negative Negative [facility] Laboratory - Hematology and Cell countsOrdered By: Anders Sesay on 10-19-2021 Nucleated RBC/100 WBC (Bld) [Ratio] 0.2 % 0-0.5 [facility] Laboratory - UrinalysisOrder ed By: Anders Sesay on 10-19-2021 Hyaline casts LM Ql (Urine sed) 0-8 [LPF] [facility] Lymphocytes Auto (Bld) [#/Vo l]Ordered By: Anders Sesay on 10-19-2021 Lymphocytes (Bld) [#/Vol] 2.4 10*3/uL 1.00-4.8 [facility] Lymphocytes/100 WBC Auto (Bl d)Ordered By: Anders Sesay on 10-19-2021 Lymphocytes/100 WBC (Bld) 26.7 % [facility] MCH Auto (RBC) [Entitic mass ]Ordered By: Anders Sesay on 10-19-2021 MCH (RBC) [Entitic mass] 26.3 pg 24.7-34.3 [facility] MCHC Auto (RBC) [Mass/Vol]Or dered By: Anders Sesay on 10-19-2021 MCHC (RBC) [Mass/Vol] 32.9 g/dL 32.0-35.0 [facility] MCV Auto (RBC) [Entitic vol] Ordered By: Anders Sesay on 10-19-2021 MCV (RBC) [Entitic vol] 80.1 fL 80-100 [facility] Monocytes Auto (Bld) [#/Vol] Ordered By: Anders Sesay on 10-19-2021 Monocytes (Bld) [#/Vol] 0.7 10*3/uL 0.0-0.8 [facility] Monocytes/100 WBC Auto (Bld) Ordered By: Anders Sesay on 10-19-2021 Monocytes/100 WBC (Bld) 7.6 % [facility] Neutrophils Auto (Bld) [#/Vo l]Ordered By: Anders Sesay on 10-19-2021 Neutrophils (Bld) [#/Vol] 5.8 10*3/uL 1.8-7.7 [facility] Neutrophils/100 WBC Auto (Bl d)Ordered By: Anders Sesay on 10-19-2021 Neutrophils/100 WBC (Bld) 64.2 % [facility] Nitrite Test strip Ql (U)Ord ered By: Anders Sesay on 10-19-2021 Nitrite Ql (U) Negative Negative [facility] No Panel InformationOrdered By: Anders Sesay on 10-19-2021 Estimated GFR () > 60 mL/Min [facility] Comment on above: GFR estimated refere nce range: According to KDOQI guidelines, <60 ml/min/1.73m2 is sufficient to diagnose a patient with chronic kidney disease. Pharmacy Creatinine Clearance (Chem 147.41 [facility] Platelet mean volume Auto (B ld) [Entitic vol]Ordered By: Anders Sesay on 10-19-2021 Platelet mean volume (Bld) [Entitic vol] 8.6 fL 6.3-10.7 [facility] Platelets Auto (Bld) [#/Vol] Ordered By: Anders Sesay on 10-19-2021 Platelets (Bld) [#/Vol] 395 10*3/uL 150-450 [facility] Protein Auto test strip (U) [Mass/Vol]Ordered By: Anders Sesay on 10-19-2021 Protein (U) [Mass/Vol] Negative Negative [facility] Protein [Mass/volume] in Ser um or PlasmaOrdered By: Anders Sesay on 10-19-2021 Protein [Mass/Vol] 8.1 g/dL 6.1-7.9 [facility] RBC Auto (Bld) [#/Vol]Ordere d By: Anders Sesay on 10-19-2021 RBC (Bld) [#/Vol] 5.02 10*6/uL 3.60-5.00 [facility] Serum or plasma alanine ayoub otransferase measurement without P-5'-P (enzymatic activiOrdered By: Anders Sesay on 10-19-2021 ALT No additional P-5'-P [Catalytic activity/Vol] 20 U/L 10-60 [facility] Serum or plasma albumin/glob ulin mass ratioOrdered By: Anders Sesay on 10-19-2021 Albumin/Globulin [Mass ratio] 0.9 {ratio} [facility] Serum or plasma alkaline cosmo sphatase measurement (enzymatic activity/volume)Ordered By: Anders Sesay on 10-19-2021 ALP [Catalytic activity/Vol] 55 U/L 32-92 [facility] Serum or plasma aspartate am inotransferase measurement (enzymatic activity/volume)Ordered By: Anders Sesay on 10-19-2021 AST [Catalytic activity/Vol] 17 U/L 10-42 [facility] Serum or plasma calcium joann urement (mass/volume)Ordered By: Anders Sesay on 10-19-2021 Calcium [Mass/Vol] 9.1 mg/dL 8.2-10.2 [facility] Serum or plasma chloride adan surement (moles/volume)Ordered By: Anders Sesay on 10-19-2021 Chloride [Moles/Vol] 103 mmol/L 95-114 [facility] Serum or plasma glucose joann urement (mass/volume)Ordered By: Anders Sesay on 10-19-2021 Glucose [Mass/Vol] 105 mg/dL 70-100 [facility] Comment on above: ADA recommended refe rence range Random Glucose Reference Range is dependent on time and content of last meal. Glucose of more than 200 mg/dL in a nonstressed, ambulatory subject supports the diagnosis of Diabetes Mellitus. Serum or plasma potassium me asurement (moles/volume)Ordered By: Anders Sesay on 10-19-2021 Potassium [Moles/Vol] 3.7 mmol/L 3.5-5.1 [facility] Serum or plasma sodium measu rement (moles/volume)Ordered By: Anders Sesay on 10-19-2021 Sodium [Moles/Vol] 137 mmol/L 136-146 [facility] Serum or plasma total biliru bin measurement (mass/volume)Ordered By: Anders Sesay on 10-19-2021 Bilirubin [Mass/Vol] 0.3 mg/dL 0.3-1.2 [facility] Serum or plasma total carbon dioxide measurement (moles/volume)Ordered By: Anders Sesay on 10-19-2021 CO2 [Moles/Vol] 24.2 mmol/L 22.0-30.0 [facility] Serum or plasma urea nitroge n measurement (mass/volume)Ordered By: Anders Sesay on 10-19-2021 Urea nitrogen [Mass/Vol] 7 mg/dL 9-23 [facility] Specific gravity Auto test s trip (U) [Rel density]Ordered By: Anders Sesay on 10-19-2021 Specific gravity (U) [Rel density] 1.014 1.001-1.030 [facility] Squamous epithelial cells de tection in urine sediment by light microscopyOrdered By: Anders Sesay on 10-19-2021 Epithelial cells.squamous LM Ql (Urine sed) 3-4 [HPF] [facility] Urine bacteria detection by automated methodOrdered By: Anders Sesay on 10-19-2021 Bacteria Auto Ql (U) 1+ None Seen [facility] Urine clarity by refractomet ry automatedOrdered By: Anders Sesay on 10-19-2021 Clarity Refractometry automated (U) Clear Clear [facility] Urine glucose measurement by automated test strip (mass/volume)Ordered By: Anders Sesay on 10-19-2021 Glucose Auto test strip (U) [Mass/Vol] Normal mg/dL Normal [facility] Urine hemoglobin detection b y automated test stripOrdered By: Anders Sesay on 10-19-2021 Hemoglobin Auto test strip Ql (U) Negative Negative [facility] Urine leukocyte esterase det ection by automated test stripOrdered By: Anders Sesay on 10-19-2021 Leukocyte esterase Auto test strip Ql (U) 1+ Negative [facility] Urobilinogen Auto test strip (U) [Mass/Vol]Ordered By: Anders Sesay on 10-19-2021 Urobilinogen (U) [Mass/Vol] Normal mg/dL Normal [facility] pH Auto test strip (U)Ordere d By: Anders Sesay on 10-19-2021 pH (U) 5.5 [pH] 5.0-9.0 [facility] US DUP ABD PEL RETRO SCROT [...] Edited Result - FINAL Normal [facility] US NON OB TRANSVAGINALon US NON OB [...] Edited Result - FINAL Normal [facility] Chlamydia/GC,DNA Ampon 07-10 Chlamydia Probe Negative Normal NEG [facility] Comment on above: Result Comment: CHLA MYDIA [...] Performed By: #### U HCG, UAMIC #### [facility] [address] [address] Nutritional Chemist: Campos Avilez MD Gonorrhea Probe Negative Normal NEG [facility] Comment on above: Result Comment: NEIS SERIA [...] Performed By: #### U HCG, UAMIC #### [facility] [address] [place] [address] Nutritional Chemist: Campos Avilez MD Cult,Urineon 07-09-2020 Cult,Urine Specimen Description .CLEAN CATCH URINE Special Requests NOT REPORTED Culture ESCHERICHIA COLI >[id number] CFU/ML Report Status FINAL 07/09/2020 SUSCEPTIBILITY Organism [...] Piperacillin/Tazobac her <=4 SUSCEPTIBLE Normal [facility] Comment on above: Performed By: #### U HCG, UAMIC #### [place] [address] Nutritional Chemist: Campos Avilez MD ABO/Rh(D)on 07-08-2020 ABO/Rh(D) Positive Normal [facility] Comment on above: Performed By: #### A [facility] #### [place] [address] Nutritional Chemist: Campos Avilez MD CBC with Diffon 07-08-2020 Abs. Basophil 0.04 k/uL Normal 0.00-0.20 [facility] Comment on above: Performed By: #### C P, CDP, COSMO, BHCG, MG, VD25, LIP #### [place] [address] Nutritional Chemist: Campos Avilez MD Abs.Imm.Granulocyte 0.04 k/uL Normal 0.00-0.30 [facility] Comment on above: Performed By: #### C P, CDP, COSMO, BHCG, MG, VD25, LIP #### [facility] [address] [place] [address] Nutritional Chemist: Campos Avilez MD Abs.Neutrophil (Seg) 8.16 k/uL High 1.80-8.00 [facility] Comment on above: Performed By: #### C P, CDP, COSMO, BHCG, MG, VD25, LIP #### [facility] [address] [place] [address] Nutritional Chemist: Campos Avilez MD Auto Diff Performed NOT REPORTED Normal [facility] Comment on above: Performed By: #### C P, CDP, COSMO, BHCG, MG, VD25, LIP #### [address] [address] Nutritional Chemist: Campos Avilez MD Basophils/100 WBC (Bld) 0 % Normal 0-2 [facility] Comment on above: Performed By: #### C P, CDP, COSMO, BHCG, MG, VD25, LIP #### [address] [address] Nutritional Chemist: Campos Avilez MD Eosinophils (Bld) [#/Vol] 0.10 10*3/uL Normal 0.00-0.44 [facility] Comment on above: Performed By: #### C P, CDP, COSMO, BHCG, MG, VD25, LIP #### [address] [address] Nutritional Chemist: Campos Avilez MD Eosinophils/100 WBC (Bld) 1 % Normal 1-4 [facility] Comment on above: Performed By: #### C P, CDP, COSMO, BHCG, MG, VD25, LIP #### [facility] [address] [place] [address] Nutritional Chemist: Campos Avilez MD Erythrocyte distribution width (RBC) [Ratio] 14.0 % Normal 11.8-14.4 [facility] Comment on above: Performed By: #### C P, CDP, COSMO, BHCG, MG, VD25, LIP #### [facility] [address] [place] [address] Nutritional Chemist: Campos Avilez MD Hematocrit (Bld) [Volume fraction] 34.3 % Low 36.3-47.1 [facility] Comment on above: Performed By: #### C P, CDP, COSMO, BHCG, MG, VD25, LIP #### [facility] [address] [place] [address] Nutritional Chemist: Campos Avilez MD Hemoglobin (Bld) [Mass/Vol] 11.1 g/dL Low 11.9-15.1 [facility] Comment on above: Performed By: #### C P, CDP, COSMO, BHCG, MG, VD25, LIP #### [address] [address] Nutritional Chemist: Campos Avilez MD Immature granulocytes (Bld) [#/Vol] 0 % Normal 0 [facility] Comment on above: Performed By: #### C P, CDP, COSMO, BHCG, MG, VD25, LIP #### [place] [address] Nutritional Chemist: Campos Avilez MD Lymphocytes (Bld) [#/Vol] 1.77 10*3/uL Normal 1.20-5.20 [facility] Comment on above: Performed By: #### C P, CDP, COSMO, BHCG, MG, VD25, LIP #### [place] [address] Nutritional Chemist: Campos Avilez MD Lymphocytes/100 WBC (Bld) 16 % Low 25-45 [facility] Comment on above: Performed By: #### C P, CDP, COSMO, BHCG, MG, VD25, LIP #### [place] [address] Nutritional Chemist: Campos Avilez MD MCH (RBC) [Entitic mass] 26.6 pg Normal 25.0-35.0 [facility] Comment on above: Performed By: #### C P, CDP, COSMO, BHCG, MG, VD25, LIP #### [address] [address] Nutritional Chemist: Campos Avilez MD MCHC (RBC) [Mass/Vol] 32.4 g/dL Normal 28.4-34.8 [facility] Comment on above: Performed By: #### C P, CDP, COSMO, BHCG, MG, VD25, LIP #### [address] [address] Nutritional Chemist: Campos Avilez MD MCV (RBC) [Entitic vol] 82.3 fL Normal 78.0-102.0 [facility] Comment on above: Performed By: #### C P, CDP, COSMO, BHCG, MG, VD25, LIP #### [address] [address] Nutritional Chemist: Campos Avilez MD Monocytes (Bld) [#/Vol] 0.73 10*3/uL Normal 0.10-1.40 [facility] Comment on above: Performed By: #### C P, CDP, COSMO, BHCG, MG, VD25, LIP #### [address] [address] Nutritional Chemist: Campos Avilez MD Monocytes/100 WBC (Bld) 7 % Normal 2-8 [facility] Comment on above: Performed By: #### C P, CDP, COSMO, BHCG, MG, VD25, LIP #### [address] [address] Nutritional Chemist: Campos Avilez MD Neutrophil (Seg) 75 % High 34-64 [facility] Comment on above: Performed By: #### C P, CDP, COSMO, BHCG, MG, VD25, LIP #### [address] [address] Nutritional Chemist: Campos Avilez MD NRBC Automated 0.0 per 100 WBC Normal 0.0 [facility] Comment on above: Performed By: #### C P, CDP, COSMO, BHCG, MG, VD25, LIP #### [address] [address] Nutritional Chemist: Campos Avilez MD Platelet mean volume (Bld) [Entitic vol] 11.8 fL Normal 8.1-13.5 [facility] Comment on above: Performed By: #### C P, CDP, COSMO, BHCG, MG, VD25, LIP #### [address] [address] Nutritional Chemist: Campos Avilez MD Platelets (Bld) [#/Vol] NOT REPORTED Normal [facility] Comment on above: Performed By: #### C P, CDP, COSMO, BHCG, MG, VD25, LIP #### [address] [address] Nutritional Chemist: Campos Avilez MD Platelets (Bld) [#/Vol] 288 10*3/uL Normal 138-453 [facility] Comment on above: Performed By: #### C P, CDP, COSMO, BHCG, MG, VD25, LIP #### [address] [address] Nutritional Chemist: Campos Avilez MD RBC (Bld) [#/Vol] 4.17 10*6/uL Normal 3.95-5.11 [facility] Comment on above: Performed By: #### C P, CDP, COSMO, BHCG, MG, VD25, LIP #### [address] [address] Nutritional Chemist: Campos Avilez MD RBC morphology finding Nom (Bld) NOT REPORTED Normal [facility] Comment on above: Performed By: #### C P, CDP, COSMO, BHCG, MG, VD25, LIP #### [address] [address] Nutritional Chemist: Campos Avilez MD WBC (Bld) [#/Vol] 10.8 10*3/uL Normal 4.5-13.5 [facility] Comment on above: Performed By: #### C P, CDP, COSMO, BHCG, MG, VD25, LIP #### [facility] [place] [address] Nutritional Chemist: Campos Avilez MD WBC Morphology NOT REPORTED Normal [facility] Comment on above: Performed By: #### C P, CDP, COSMO, BHCG, MG, VD25, LIP #### [facility] [address] [place] [address] Nutritional Chemist: Campos Avilez MD Calcium, Ionicon 07-08-2020 Calcium [Mass/Vol] 1.18 mmol/L Normal 1.13-1.33 [facility] Comment on above: Performed By: #### I OCAL #### [address] [address] Nutritional Chemist: Campos Avilez MD Calcium, Ionizedon Calcium [Mass/Vol] 1.18 mmol/L 1.13 - 1. 33 mmol/L [facility] [place] Comp Metabolic Profon 2020 (cont.) Normal [facility] Comment on above: Result Comment: Aver age GFR for <20 years old not available. Chronic Kidney Disease: <60 mL/min/1.73sq m Kidney failure: <15 mL/min/1.73sq m eGFR calculated using average adult body mass. Additional eGFR calculator available at: [email or web address]_[email or web address] Performed By: #### C P, CDP, COSMO, BHCG, MG, VD25, LIP #### [facility] [place] [address] Nutritional Chemist: Campos Avilez MD Albumin [Mass/Vol] 2.3 g/dL Low 3.5-5.2 [facility] Comment on above: Performed By: #### C P, CDP, COSMO, BHCG, MG, VD25, LIP #### [address] [address] Nutritional Chemist: Campos Avilez MD Albumin/Globulin [Mass ratio] 0.9 {ratio} Low 1.0-2.5 [facility] Comment on above: Performed By: #### C P, CDP, COSMO, BHCG, MG, VD25, LIP #### [address] [address] Nutritional Chemist: Campos Avilez MD Alkaline Phos 41 U/L Normal 35-104 [facility] Comment on above: Result Comment: SPEC IMEN MODERATELY HEMOLYZED, RESULTS MAY BE ADVERSELY AFFECTED Performed By: #### C P, CDP, COSMO, BHCG, MG, VD25, LIP #### [address] [address] Nutritional Chemist: Campos Avilez MD ALT [Catalytic activity/Vol] 11 U/L Normal 5-33 [facility] Comment on above: Result Comment: SPEC IMEN MODERATELY HEMOLYZED, RESULTS MAY BE ADVERSELY AFFECTED Performed By: #### C P, CDP, COSMO, BHCG, MG, VD25, LIP #### [address] [address] Nutritional Chemist: Campos Avilez MD Anion gap [Moles/Vol] 9 mmol/L Normal 9-17 [facility] Comment on above: Performed By: #### C P, CDP, COSMO, BHCG, MG, VD25, LIP #### [address] [address] Nutritional Chemist: Campos Avilez MD AST [Catalytic activity/Vol] 28 U/L Normal <32 [facility] Comment on above: Result Comment: SPEC IMEN MODERATELY HEMOLYZED, RESULTS MAY BE ADVERSELY AFFECTED Performed By: #### C P, CDP, COSMO, BHCG, MG, VD25, LIP #### [address] [address] Nutritional Chemist: Campos Avilez MD Bilirubin Ql (U) <0.10 Low 0.3-1.2 [facility] Comment on above: Performed By: #### C P, CDP, COSMO, BHCG, MG, VD25, LIP #### [address] [address] Nutritional Chemist: Campos Avilez MD Calcium [Mass/Vol] 5.5 mg/dL Critically low 8.6-10.4 [facility] Comment on above: Performed By: #### C P, CDP, COSMO, BHCG, MG, VD25, LIP #### [place] [address] Nutritional Chemist: Campos Avilez MD Chloride [Moles/Vol] 118 mmol/L High 98-107 [facility] Comment on above: Performed By: #### C P, CDP, COSMO, BHCG, MG, VD25, LIP #### [address] [address] Nutritional Chemist: Campos Avilez MD CO2 [Moles/Vol] 14 mmol/L Low 20-31 [facility] Comment on above: Performed By: #### C P, CDP, COSMO, BHCG, MG, VD25, LIP #### [address] [address] Nutritional Chemist: Campos Avilez MD Creatinine [Mass/Vol] 0.60 mg/dL Normal 0.50-0.90 [facility] Comment on above: Performed By: #### C P, CDP, COSMO, BHCG, MG, VD25, LIP #### [address] [address] Nutritional Chemist: Campos Avilez MD GFR, Amer NOT REPORTED Normal >60 [facility] Comment on above: Performed By: #### C P, CDP, COSMO, BHCG, MG, VD25, LIP #### [address] [address] Nutritional Chemist: Campos Avilez MD GFR,non Amer Pediatric GFR requires additional information. Refer to NKDEP website for Normal >60 [facility] Comment on above: Result Comment: calc ulator. Performed By: #### C P, CDP, COSMO, BHCG, MG, VD25, LIP #### [address] [address] Nutritional Chemist: Campos Avilez MD Glucose [Mass/Vol] 84 mg/dL Normal 70-99 [facility] Comment on above: Performed By: #### C P, CDP, COSMO, BHCG, MG, VD25, LIP #### [address] [address] Nutritional Chemist: Campos Avilez MD Potassium [Moles/Vol] 5.1 mmol/L Normal 3.7-5.3 [facility] Comment on above: Result Comment: SPEC IMEN MODERATELY HEMOLYZED, RESULTS MAY BE ADVERSELY AFFECTED Performed By: #### C P, CDP, COSMO, BHCG, MG, VD25, LIP #### [address] [address] Nutritional Chemist: Campos Avilez MD Protein [Mass/Vol] 5.0 g/dL Low 6.4-8.3 [facility] Comment on above: Performed By: #### C P, CDP, COSMO, BHCG, MG, VD25, LIP #### [address] [address] Nutritional Chemist: Campos Avilez MD Sodium [Moles/Vol] 141 mmol/L Normal 135-144 [facility] Comment on above: Performed By: #### C P, CDP, COSMO, BHCG, MG, VD25, LIP #### [facility] [address] [place] [address] Nutritional Chemist: Campos Avilez MD Staging: NOT REPORTED Normal [facility] Comment on above: Performed By: #### C P, CDP, COSMO, BHCG, MG, VD25, LIP #### [facility] [address] [place] [address] Nutritional Chemist: Campos Avilez MD Urea nitrogen [Mass/Vol] 10 mg/dL Normal 6-20 [facility] Comment on above: Performed By: #### C P, CDP, COSMO, BHCG, MG, VD25, LIP #### [address] [address] Nutritional Chemist: Campos Avilez MD HCG, ,Urineon 07-082 Beta HCG ( test) Ql (U) Negative Normal NEG [facility] Comment on above: Result Comment: Spec imens with hCG levels near the threshold of the test (25 mIU/mL) may give a negative or indeterminate result. In such cases, another test should be performed with a new specimen in 48-72 hours. If early is suspected clinically in this setting, correlation with quantitative serum b-hCG level is suggested. Performed By: #### U HCG, UAMIC #### [address] [address] Nutritional Chemist: Campos Avilez MD HCG, Quanton 07-08-2020 HCG, Quant <1 Normal <5 [facility] Comment on above: Result Comment: Non-preg premeno [...] CDP, COSMO, BHCG, MG, VD25, LIP #### [facility] [place], [place] [id number] Nutritional Chemist: Campos Avilez MD Lipaseon 07-08-2020 Lipase [Catalytic activity/Vol] 15 U/L Normal 13-60 [facility] Comment on above: Performed By: #### C P, CDP, COSMO, BHCG, MG, VD25, LIP #### [facility] [place], [place] [id number] Nutritional Chemist: Campos Avilez MD Magnesiumon 07-08-2020 Magnesium [Mass/Vol] 1.2 mg/dL Low 1.7 - 2 .2 mg/dL [place], [place] Magnesium [Mass/Vol] 1.2 mg/dL Low 1.7-2.2 [facility] Comment on above: Performed By: #### C P, CDP, COSMO, BHCG, MG, VD25, LIP #### [address] [id number] Nutritional Chemist: Campos Avilez MD Otheron 07-08-2020 Direct Exam Negative [place], [place] Interpretation and review of laboratory results Abnormal [place] Interpretation and review of laboratory results Abnormal [place] , URINEon Beta HCG ( test) Ql (U) Negative NEGATIVE [place] Comment on above: Specimens with hCG [...] 2.6 mg/dL 2.5 - 4 .8 mg/dL [place] Phosphorus, Inorg.on 021 Phosphorus, Inorg. 2.6 mg/dL Normal 2.5-4.8 [facility] Comment on above: Performed By: #### U HCG, UAMIC #### [facility] [address] [place] [id number] Nutritional Chemist: Campos Avilez MD US NON OB TRANSVAGINALon Elia, Mhpn Incoming Radiant Results From [facility] - 07/08/2020 12:31 AM EST EXAMINATION: PELVIC [...] No evidence of ovarian torsion is noted. [place], [place] Unremarkable pelvic ultrasound. No evidence of ovarian torsion is noted. [place] EXAMINATION: PELVIC ULTRASOUND 07/07/2020 TECHNIQUE: Transvaginal [...] Free Fluid: No evidence of free fluid. [place] Urinalysis w/ Microon 2020 ----- Normal [facility] Comment on above: Performed By: #### U HCG, UAMIC #### [address] [address] Nutritional Chemist: Campos Avilez MD Acetoacetic Acid,Ur Negative Normal NEG [facility] Comment on above: Performed By: #### U HCG, UAMIC #### [address] [id number] Nutritional Chemist: Campos Avilez MD Amorphous sediment LM Ql (Urine sed) NOT REPORTED Normal [facility] Comment on above: Performed By: #### U HCG, UAMIC #### [address] [address] Nutritional Chemist: Campos Avilez MD Bacteria LM.HPF (Urine sed) [#/Area] MANY Abnormal [facility] Comment on above: Performed By: #### U HCG, UAMIC #### [address] [address] Nutritional Chemist: Campos Avilez MD Bilirubin, SemiQt,Ur Negative Normal NEG [facility] Comment on above: Performed By: #### U HCG, UAMIC #### [address] [address] Nutritional Chemist: Campos Avilez MD Casts LM.LPF (Urine sed) [#/Area] NOT REPORTED Normal 0-8 [facility] Comment on above: Performed By: #### U HCG, UAMIC #### [address] [address] Nutritional Chemist: Campos Avilez MD Color (U) ORANGE Abnormal YEL [facility] Comment on above: Result Comment: INTE RPRET WITH CAUTION DUE TO INTENSE COLOR OF URINE. Performed By: #### U HCG, UAMIC #### [address] [address] Nutritional Chemist: Campos Avilez MD Crystals LM Nom (Urine sed) NOT REPORTED Normal [facility] Comment on above: Performed By: #### U HCG, UAMIC #### [address] [address] Nutritional Chemist: Campos Avilez MD Epithelial cells LM.HPF (Urine sed) [#/Area] 0 TO 2 Normal 0-5 [facility] Comment on above: Performed By: #### U HCG, UAMIC #### [address] [address] Nutritional Chemist: Campos Avilez MD Epithelial, Renal NOT REPORTED Normal 0 [facility] Comment on above: Performed By: #### U HCG, UAMIC #### [address] [address] Nutritional Chemist: Campos Avilez MD Glucose Ql (U) Negative Normal NEG [facility] Comment on above: Performed By: #### U HCG, UAMIC #### [address] [address] Nutritional Chemist: Campos Avilez MD Hemoglobin, Ur LARGE Abnormal NEG [facility] Comment on above: Performed By: #### U HCG, UAMIC #### [address] [address] Nutritional Chemist: Campos Avilez MD Leukocyte esterase Test strip Ql (U) MODERATE Abnormal NEG [facility] Comment on above: Performed By: #### U HCG, UAMIC #### [address] [address] Nutritional Chemist: Campos Avilez MD Mucus Strands NOT REPORTED Normal NONE [facility] Comment on above: Performed By: #### U HCG, UAMIC #### [address] [address] Nutritional Chemist: Campos Avilez MD Nitrite,Ur Positive Abnormal NEG [facility] Comment on above: Performed By: #### U HCG, UAMIC #### [address] [place] [address] Nutritional Chemist: Campos Avilez MD Other Observations NOT REPORTED Normal NREQ [facility] Comment on above: Performed By: #### U HCG, UAMIC #### [address] [address] Nutritional Chemist: Campos Avilez MD pH (U) 5.5 [pH] Normal 5.0-8.0 [facility] Comment on above: Performed By: #### U HCG, UAMIC #### [address] [address] Nutritional Chemist: Campos Avilez MD Protein Ql (U) 2+ Abnormal NEG [facility] Comment on above: Performed By: #### U HCG, UAMIC #### [address] [address] Nutritional Chemist: Campos Avilez MD RBC (U) [#/Vol] 50 TO 100 Normal 0-4 [facility] Comment on above: Result Comment: Refe rence range defined for non-centrifuged specimen. Performed By: #### U HCG, UAMIC #### [address] [address] Nutritional Chemist: Campos Avilez MD Specific gravity (U) [Rel density] 1.021 Normal 1.005-1.030 [facility] Comment on above: Performed By: #### U HCG, UAMIC #### [address] [address] Nutritional Chemist: Campos Avilez MD Trichomonas NOT REPORTED Normal NONE [facility] Comment on above: Performed By: #### U HCG, UAMIC #### [address] [address] Nutritional Chemist: Campos Avilez MD Turbidity TURBID Abnormal CLEAR [facility] Comment on above: Performed By: #### U HCG, UAMIC #### [facility] [place], [place] [id number] Nutritional Chemist: Campos Avilez MD Urobilinogen,Ur Normal Normal NORM [facility] Comment on above: Performed By: #### U HCG, UAMIC #### [facility] [address] [place] [address] [id number] Nutritional Chemist: Campos Avilez MD WBC (U) [#/Vol] TOO NUMEROUS TO COUNT Normal 0-5 [facility] Comment on above: Performed By: #### U HCG, UAMIC #### [facility] [address] [place] [address] [phone] Nutritional Chemist: Campos Avilez MD Yeast LM Ql (Urine sed) NOT REPORTED Normal NONE [facility] Comment on above: Performed By: #### U HCG, UAMIC #### [facility] [address] [place] [address] [phone] Nutritional Chemist: Campos Avilez MD Urinalysis with microscopico n 07-08-2020 Amorphous, UA NOT REPORTED None [facility] [place] Bacteria, UA MANY Abnormal None [facility], [place] Bilirubin Urine Negative NEGATIVE [facility] [place] Casts UA NOT REPORTED [facility], [place] Color, UA ORANGE Abnormal YELLOW [place], [place] Comment on above: INTERPRET WITH CAUTI ON DUE TO INTENSE COLOR OF URINE. Crystals, UA NOT REPORTED None /HPF [facility] [place] Epithelial Cells UA [address] [facility], [place] Glucose, Ur Negative NEGATIVE [facility] Ketones Ql (U) Negative NEGATIVE [facility] [place] Leukocyte esterase Test strip Ql (U) MODERATE Abnormal NEGATIVE [facility], [place] Mucus, UA NOT REPORTED None [facility], [place] Nitrite, Urine Positive Abnormal NEGATIVE [facility], [place] Other Observations UA NOT REPORTED NOT REQ. M [facility], [place] pH, UA 5.5 [place] Protein (U) [Mass/Vol] 2+ Abnormal NEGATIVE [place], [place] RBC (U) [#/Vol] 50 TO 100 [facility], [place] Comment on above: Reference range defi sonia for non-centrifuged specimen. Renal Epithelial, UA NOT REPORTED 0 /HPF [place], [place] Specific [place], UA 1.021 [place], [place] Trichomonas, UA NOT REPORTED None [facility] [place] Turbidity UA TURBID Abnormal CLEAR [place], [place] Urine Hgb LARGE Abnormal NEGATIVE [place] Urobilinogen, Urine Normal Normal [place] WBC, UA TOO NUMEROUS TO COUNT [place] Yeast, UA NOT REPORTED None [place] VAGINITIS DNA PROBEon 2020 Direct Exam Positive Abnormal [place] Direct Exam Method of testing is a DNA probe intended for detection and identification of Samantha species, Gardnerella vaginalis, and Trichomonas vaginalis nucleic acid in vaginal fluid specimens from patients with symptoms of vaginitis/vaginosis. [place] Special Requests NOT REPORTED [place] Specimen Description .VAGINA [place] Vaginitis DNA Probeon 2020 Vaginitis DNA [...] Report Status FINAL 07/08/2020 Normal [facility] Comment on above: Performed By: #### U HCG, UAMIC #### [facility] [address] [place] [address] Nutritional Chemist: Campos Avilez MD Vitamin D 25 Hydroxyon 07-08 Vit D, 25-Hydroxy 12.1 ng/mL Low 30 - 100 ng/mL [place] Comment on above: Reference Range: Vitamin D status Range Deficiency <20 ng/mL Mild Deficiency 20-30 ng/mL Sufficiency 30-100 ng/mL Toxicity >100 ng/mL Vitamin D 25 OHon 07-08-2020 Vitamin D 25 [place] 12.1 ng/mL Low 30.0-100.0 [facility] Comment on above: Result Comment: Reference Range: Vitamin D status Range Deficiency <20 ng/mL Mild Deficiency 20-30 ng/mL Sufficiency 30-100 ng/mL Toxicity >100 ng/mL Performed By: #### U HCG, UAMIC #### [facility] [address] [place] [address] Nutritional Chemist: Campos Avilez MD ABO/RHon 07-07-2020 ABO/Rh Positive [place], [place] CBC WITH AUTO DIFFERENTIALon 07-07-2020 Basophils (Bld) [#/Vol] 0.04 10*3/uL [place] Basophils/100 WBC (Bld) 0 % 0 - 2 % [place] Differential Type NOT REPORTED [place] Eosinophils (Bld) [#/Vol] 0.10 10*3/uL [place] Eosinophils/100 WBC (Bld) 1 % 1 - 4 % [place] Erythrocyte distribution width (RBC) [Ratio] 14.0 % 11.8 - 14.4 % [place] Hematocrit (Bld) [Volume fraction] 34.3 % Low 36.3 - 47.1 % [place] Hemoglobin (Bld) [Mass/Vol] 11.1 g/dL Low 11.9 - 15.1 g/dL [place] Immature granulocytes (Bld) [#/Vol] 0 % 0 [place] Immature granulocytes (Bld) [#/Vol] 0.04 10*3/uL [place] Lymphocytes (Bld) [#/Vol] 1.77 10*3/uL [place] Lymphocytes/100 WBC (Bld) 16 % Low 25 - 45 % [place] MCH (RBC) [Entitic mass] 26.6 pg 25 - 35 pg [place] MCHC (RBC) [Mass/Vol] 32.4 g/dL 28.4 - 34.8 g/dL [place] MCV (RBC) [Entitic vol] 82.3 fL 78 - 102 fL [place] Monocytes (Bld) [#/Vol] 0.73 10*3/uL [place] Monocytes/100 WBC (Bld) 7 % 2 - 8 % [place], [place] Platelet mean volume (Bld) [Entitic vol] 11.8 fL 8.1 - 13.5 fL [place], [place] Platelets (Bld) [#/Vol] NOT REPORTED [place] Platelets (Bld) [#/Vol] 288 10*3/uL [place] RBC (Bld) [#/Vol] 4.17 10*6/uL 3.95 - 5.1 1 m/uL [place] RBC morphology finding Nom (Bld) NOT REPORTED [place] Segmented neutrophils/100 WBC (Bld) 75 % High 34 - 64 % [place] Segs Absolute 8.16 High [place], [place] WBC (Bld) [#/Vol] 0.0 10*3/uL 0.0 per 10 0 WBC [place] WBC (Bld) [#/Vol] 10.8 10*3/uL [place] WBC Morphology NOT REPORTED [place] COMPREHENSIVE METABOLIC PANE Mikie 07-07-2020 Albumin [Mass/Vol] 2.3 g/dL Low 3.5 - 5.2 g/dL [place] Albumin/Globulin [Mass ratio] 0.9 {ratio} Low [place] ALP [Catalytic activity/Vol] 41 U/L 35 - 104 U/L [place] Comment on above: SPECIMEN MODERATELY HEMOLYZED, RESULTS MAY BE ADVERSELY AFFECTED ALT [Catalytic activity/Vol] 11 U/L 5 - 33 U/L [place] Comment on above: SPECIMEN MODERATELY HEMOLYZED, RESULTS MAY BE ADVERSELY AFFECTED Anion gap [Moles/Vol] 9 mmol/L 9 - 17 mmol/L [place] AST [Catalytic activity/Vol] 28 U/L <32 [place] Comment on above: SPECIMEN MODERATELY HEMOLYZED, RESULTS MAY BE ADVERSELY AFFECTED Bilirubin Ql (U) <0.10 Low 0.3 - 1.2 mg/dL [place] Calcium [Mass/Vol] 5.5 mg/dL Critically low 8.6 - 1 0.4 mg/dL [place] Chloride [Moles/Vol] 118 mmol/L High 98 - 10 7 mmol/L [place] CO2 [Moles/Vol] 14 mmol/L Low 20 - 31 mmol/L [place] Creatinine [Mass/Vol] 0.6 mg/dL 0.5 - 0.9 mg/dL [place] GFR NOT REPORTED >60 mL/min [place] GFR Non- Pediatric GFR requires additional information. Refer to NKDEP website for calculator. >60 mL/min [place] GFR/1.73 sq M predicted among non-blacks MDRD (S/P/Bld) [Vol rate/Area] NOT REPORTED [place] GFR/1.73 sq M predicted among non-blacks MDRD (S/P/Bld) [Vol rate/Area] [place] Comment on above: Average GFR for <20 years old not available. Chronic Kidney Disease: <60 mL/min/1.73sq m Kidney failure: <15 mL/min/1.73sq m eGFR calculated using average adult body mass. Additional eGFR calculator available at: http://www.Mapflow/multiple_crcl_2012.htm Glucose [Mass/Vol] 84 mg/dL 70 - 99 mg/dL [place] Potassium [Moles/Vol] 5.1 mmol/L 3.7 - 5.3 mmol/L [place] Comment on above: SPECIMEN MODERATELY HEMOLYZED, RESULTS MAY BE ADVERSELY AFFECTED Protein [Mass/Vol] 5.0 g/dL Low 6.4 - 8.3 g/dL [place] Sodium [Moles/Vol] 141 mmol/L 135 - 144 mmol/L [place] Urea nitrogen [Mass/Vol] 10 mg/dL 6 - 20 mg/dL [place] Comp Metabolic Profon 2020 Bun/Cre Ratio NOT REPORTED Normal 9-20 [facility] [place] Comment on above: Performed By: #### C P, CDP, COSMO, BHCG, MG, VD25, LIP #### [facility] [address] [place], [place] [id number] Nutritional Chemist: Campos Avilez MD HCG, QUANTITATIVE, on 07-07-2020 hCG Quant <1 <5 IU/L [place] Comment on above: Non-preg premeno <=5 [...] activity/Vol] 15 U/L 13 - 60 U/L [place] Social History Date Type Detail Facility Start: 07-16-2023 Gender identity Not on file [facility] Start: 07-16-2023 End: 07-17-2023 Alcohol intake Lifetime non-drinker (finding) [facility] Start: 07-16-2023 History of Social function [facility] Healthcare Start: 05-22-2023 [facility] Healt hcare Start: 10-19-2021 Tobacco smoking status COIS Smoker (finding) [facility] Start: 07-07-2020 End: 07-16-2023 Tobacco smoking status COIS Never smoker [facility] Healthcare Start: 07-07-2020 Tobacco use and exposure Never used [place], [place] Start: 2002 Sex Assigned At Not on file [place], [place] Start: 2002 Sex Assigned At Female F [facility] Exposure to SARS-CoV-2 (event) Not sure [place] Tobacco smoking status COIS Tobacco smoking consumption unknown [facility] Tobacco smoking status No Smoking Status Entered [facility] Vital Signs Date Time Vital Sign Value Performing Clinician Facility 10-26-2023 03:30-0400 Hourly Rounding Fuentes Florentino [facility] Comment on above: Result Comment: pt discharged off unit 10-26-2023 03:15-0400 Hourly Rounding Fuentes Florentino [facility] Comment on above: Result Comment: went over discharge inst ructions. educated pt on importance of contacting primary provider with future concerns, pisking up antibiotic prescription tomorrow, and calling is symtpoms return or get worse. 10-26-2023 00:00-0400 Blood Pressure Location Fuentes Florentino [facility] 10-26-2023 00:00-0400 Body temperature 98.6 [degF] Fuentes Florentino [facility] 10-26-2023 00:00-0400 Diastolic blood pressure 68 mm[Hg] Fuentes Florentino [facility] 10-26-2023 00:00-0400 Heart rate 101 /min Fuentes Florentino [facility] 10-26-2023 00:00-0400 Hourly Rounding Fuentes Florentino [facility] 10-26-2023 00:00-0400 Mean blood pressure 86 mm[Hg] Fuentes Florentino [facility] 10-26-2023 00:00-0400 Respiratory rate 16 /min Fuentes Florentino [facility] 10-26-2023 00:00-0400 Systolic blood pressure 122 mm[Hg] Fuentes Florentino [facility] 07-17-2023 11:42-0500 Body weight 127.82 kg Chung Benja DO Work Phone: [facility] 07-17-2023 11:42-0500 Diastolic blood pressure 70 mm[Hg] Chung Benja DO Work Phone: [facility] 07-17-2023 11:42-0500 Systolic blood pressure 118 mm[Hg] Chung Yousif DO Work Phone: [facility] 10-19-2021 01:12-0400 Diastolic blood pressure 62 mm[Hg] PHYSICIAN [facility] 10-19-2021 01:12-0400 Heart rate 89 /min [facility]YSIC[facility] 10-19-2021 01:12-0400 Respiratory rate 18 /min [facility]YSIC[facility] 10-19-2021 01:12-0400 SaO2% (BldA) [Mass fraction] 100 % PHYSICIAN [facility] 10-19-2021 01:12-0400 Systolic blood pressure 130 mm[Hg] PHYSICIAN [facility] 10-18-2021 23:10-0400 Body height 167.[address] [facility] 10-18-2021 23:10-0400 Body mass index (BMI) [Percentile] Per age and sex 99.1 % [facility]YSICIAN [facility] 10-18-2021 23:10-0400 Body mass index (BMI) [Ratio] 48.2 kg/m2 PHYSICIAN [facility] 10-18-2021 23:10-0400 Body weight 135.[address] [facility] 10-18-2021 23:08-0400 Body temperature 98.4 [degF] PHYSICIAN [facility] 07-07-2020 21:51-0500 BMI (Body Mass Index) 42.93 kg/m2 [facility] [place] 07-07-2020 21:51-0500 Body weight 120.66 kg [facility] [place] 07-07-2020 21:51-0500 BP Diastolic 85 mm[Hg] Lisa [facility] , [place] 07-07-2020 21:51-0500 BP Systolic 136 mm[Hg] [facility] [place] 07-07-2020 21:51-0500 Height 167.6 cm [facility] [place] 07-07-2020 21:51-0500 Pulse (Heart Rate) 93 /min Lisa Land [facility], [place] 07-07-2020 21:51-0500 Pulse Oximetry 97 % Lisa Land [facility] , [place] 07-07-2020 21:51-0500 Respiratory Rate 18 /min Lisa Land [facility], [place] 07-07-2020 21:48-0500 Body Temperature 97.11 [degF] [facility] [place] Functional Status Date Assessment Result Facility 10-26-2023 Functional Status N/A [facility] Clinical Notes 07-03-2023 to 10-26-2023 Chung Yousif DO - 07/17/2023 11:10 AM Costa Kilgore LPN - 07/03/2023 1:00 PM EST Note Date & Type Note Facility 10-26-2023 Note The following Patien t Education Materials have been given to the patient: EducationMaterial [facility] 10-26-2023 Hospital Discharg e instructions Patient Education [...] provider. Document Revised: 01/02/2022 Document Reviewed: 01/02/2022 [employer] Patient Education 2022 [employer]. 10/26/2023 03:10:04 Vaginal Bleeding During , Second [...] help with your regular activities. Medicines Take ayza-rvp-dikbwri and prescription medicines only as told by [...] provider. Document Revised: 02/08/2021 Document Reviewed: 02/08/2021 [employer] Patient Education 2022 [employer]. 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 [...] your back during . General instructions Take rckn-sty-gohwvgy and prescription medicines only as told by [...] care provider for managing back pain. Take lypr-imj-quptaot and prescription medicines only as told by [...] provider. Document Revised: 08/01/2021 Document Reviewed: 08/01/2021 [employer] Patient Education 2022 [employer]. Follow Up Care 10/25/2023 23:39:34 With:Chung YOUSIF Address: [address] [place] [address]- Business (1) When:11/04/2023 [facility] 10-25-2023 Evaluation + Plan note Diagnostic Tests PendingUrine Culture 10/25/23 [facility] 07-17-2023 History of Presen t illness Narrative Reason for Appointment: Patient ID: Teodoro Upton is a 23 y.o. female who presents for Routine Visit Patient presents today for Return OB appointment. Current Medications: has a current medication list which includes the following prescription(s): vnzlfigb-lgx-vk-fa and promethazine. Medical History: Active Ambulatory Problems Diagnosis Date Noted No Active Ambulatory Problems Resolved Ambulatory Problems Diagnosis Date Noted No Resolved Ambulatory Problems Past Medical History: Diagnosis Date ADD (attention deficit disorder) Ast[facility] ([facility]) Family History Problem Relation Name [...] Chung Yousif DO documented in this encounter [facility] 07-03-2023 History of Presen t [...] raw or undercooked meat, stay away from sushi, do not change litter boxes, eat 6 [...] in this encounter [facility] Evaluation note No assessment inform ation available [facility] Work Phone: Evaluation note Diagnosis Missed menses Nausea and vomiting, unspecified vomiting type documented [facility] this [facility] Diagnosis First trimester state, incidental Vaginal bleeding in Threatened miscarriage Threatened , unspecified as to episode of care with uncertain viability, single or unspecified fetus documented [facility] Narrative No data available for this section [facility] Additional Instructions Please follow up as we discussed so you can have your concerns further evaluated.[facility] Work Phone: Progress note No data available for this section [facility] Discharge Instructions * Instructions* Brenda Stoner, - 07/08/2020 [facility] ED Clinic List Healthcare Providers Services Day of Week/ Hours Ruby for [facility] Services [address] [facility] Pediatric Primary Care Adult Primary Care POLICE SHIFT COMMANDER//Specialty Clinics Friday 8:00a 4:30p [address] Adult Medicine, Pediatrics, POLICE SHIFT COMMANDER Friday 8:30a 4:30p [facility] Surgery [address] [facility] Friday 8:30a 11:00a [address] Adult Internal Medicine ([facility]) POLICE SHIFT COMMANDER Clinic Pediatric Clinic Friday, Friday, , Friday 8:00a 4:30p Friday 1:00p 4:30p Friday, Friday, 8:00a 5:00p; Friday 8:00a 12:30p Friday 1p 4p Friday, Friday, , Friday 8:30a 4:15p Friday 12:30p 4:15p [address] Pediatric Primary Care Adult Primary Care OB/ Friday, Friday 8a 12p 8a 4:45p [facility] [address] [place] [address] # Pre & Post Adoption Counseling Support / nutrition Care Reward Incentive Program [facility] Fri, , Fri, Fri 10:00a 4:30p Th 10:00a 7:30p E Gomez Location Friday - Friday 10a 4:30p [facility] Clinics POLICE SHIFT COMMANDER [address] [facility] Adult Internal Medicine [address] [facility] Pediatrics [address] [facility] [address] Neuro / Headache [address] [facility] Friday 8:30a 5p [facility] Family Practice [address] [facility] Family Practice Fri, , , Fri 9:00a 4:30p Wed 1:00p 4:30p [facility] Family Practice [address] [facility] [address] Family Practice Friday 8:30a 5:00p [facility] Specialty Clinics [address] [facility] [address] Burn/Plastic, ENT, GI, Orthopedics, Surgical / Trauma, Urology, Vascular Friday 8:00 4:30p Call for an appointment [facility] Clinic [address] [facility] Adult Medicine, Eye Clinic, Dental Patient must be certified homeless Under age 18 not accepted Friday 8:00 4:30p [facility] Clinic [address] [facility] Family Practice OB Friday, Friday, Friday, Friday 9a 5p 9a 6p Friday (OB only) [facility] [address] [facility] OB/ Friday 11a 7p , Fri, 9a 5p Friday 8a 4p 1st Friday 9a 1p Podiatry Clinic [address] [facility] [address] Friday 8:00 4:[address] Free nurse visits [place] programs Counseling Class Call or walk in [facility] [address] [place] Various Clinics 8a 5:30p [facility] Family Medicine [facility] [address] [facility], [address] Family Practice Friday 8a 4:30p [address] [id number] [address] [place] [address] Friday 8a 4:30p Friday 8a 4:30p 8a 8p Outpatient Clinics [facility] [place] [facility] [address] [facility] Friday 9a 5p Diabetic Education Services Call for an appointment [facility] Heart Failure Clinic [address] [facility] Friday 8:30a 4p Dental Services [facility] [address] [place] [address] Must have source of income and must bring (2) recent check stubs to appointment By appointment only [facility] [address] [facility] Patient must be homeless, call for eligibility guidelines. Under age 18 NOT accepted Days and hours vary (Doors open at 8:30a day of week varies) Call for an appointment Miscellaneous Information [facility] First Call for Help [phone] Call for an appointment H.E.L.P (Hospital Eligibility Link Program) toll free For financial assistance * Attachments The following attachments cannot be sent through Care Everywhere. * Bacterial Vaginosis ([place]) * UTI (Urinary Tract Infection): Female ([place] African) * Vitamin D: General Info ([place] African) documented in this encounter Assessments Diagnosis BV [...] section and content) DATE CREATED AUTHOR 07/16/2020 [facility] DATE CREATED AUTHOR AUTHOR'S ORGANIZ ATION 09/07/2022 [facility] DATE CREATED AUTHOR AUTHOR'S ORGANIZ ATION 03/13/2023 [facility] DATE CREATED AUTHOR AUTHOR'S ORGANIZ ATION 10/27/2023 [facility] DATE CREATED AUTHOR AUTHOR'S ORGANIZ ATION 10/31/2023 [facility] DATE CREATED AUTHOR AUTHOR'S ORGANIZ ATION 12/05/2023 [facility] EPIC Care Teams (unrecognized [...] BE BASED ON THE PRIMARY CLINICAL RECORDS. [employer] provides no warranty or guarantee of the accuracy or completeness of information in this document.
[2023-12-05 14:52] VITALS: BP 130/65; PULSE 100
[2023-12-05 15:17] LABS: Bilirubin Urine NEGATIVE (NEGATIVE); Blood Urine TRACE-I (NEGATIVE); Clarity Urine CLEAR (CLEAR); Color Urine LT. YELLOW (YELLOW); Glucose Urine UA NEGATIVE (NEGATIVE); Ketones Urine NEGATIVE (NEGATIVE); Leukocyte Esterase Urine LARGE (NEGATIVE); Nitrite Urine NEGATIVE (NEGATIVE); Protein Urine NEGATIVE (NEG/TRACE); Specific Gravity Urine 1.015 (1.005-1.025); Urobilinogen Urine 0.2 EU/dL (0.2-1.0)
[2023-12-05 15:21] LABS: Urine Microscopic Indicated YES
[2023-12-05 15:24] VITALS: BP 119/56; PULSE 79
[2023-12-05 15:32] LABS: Bacteria Urine MODERATE #/HPF (NONE SEEN); WBC Urine 20-50 #/HPF (NONE SEEN)
[2023-12-05 15:33] LABS: Cast Seen? NONE SEEN #/LPF (NONE SEEN); Crystals Seen? None Seen #/HPF (None Seen); Squamous Epithelial Cell Urine MODERATE #/LPF (NONE/RARE)
[2023-12-05 15:34] LABS: Mucus Urine TRACE (NONE SEEN); RBC Urine 0-2 #/HPF (0-2); Urine Culture Indicated YES
[2023-12-05] MEDS: 0.9 % SODIUM CHLORIDE 1,000 ML 1000 ML IV (15:54)
[2023-12-05] MEDS: PANTOPRAZOLE SODIUM 40 MG VIAL IV (16:04)
[2023-12-05] MEDS: ACETAMINOPHEN 500 MG TABLET 1000 MG PO (16:04)
[2023-12-05 16:07] LABS: Basophils Percent Auto 0.2 % (0.2-2.0); Eosinophils Absolute Auto 0.1 10^3/uL (0.0-0.7); Eosinophils Percent Auto 0.6 % (0.9-7.0); Hematocrit 32.8 % (36.0-48.0); Hemoglobin 11.1 g/dL (12.0-16.0); Immature Granulocytes Abs Auto 0.02 10^3/uL (0.00-0.03); Immature Granulocytes Pct Auto 0.2 % (0.0-0.5); Lymphocytes Absolute Auto 1.4 10^3/uL (1.2-3.8); Lymphocytes Percent Auto 13.7 % (20.5-60.0); Mean Corpuscular HGB Conc 33.8 g/dL (29.9-35.2); Mean Corpuscular Volume 85.6 fL (81.0-99.0); Mean Platelet Volume 11.2 fL (9.5-13.5); Monocytes Absolute Auto 0.6 10^3/uL (0.3-0.8); Monocytes Percent Auto 6.5 % (1.7-12.0); Neutrophils Absolute Auto 7.8 10^3/uL (1.4-6.5); Neutrophils Percent Auto 78.8 % (43.0-75.0); Platelet Count 300 10^3/uL (150-450); Red Blood Count 3.83 10^6/uL (4.20-5.40); Red Cell Distribution Width 12.8 % (11.0-15.0); White Blood Count 9.9 10^3/uL (4.0-11.0)
[2023-12-05 16:15] LABS: Alanine Aminotransferase 23 U/L (14-59); Amylase 61 U/L (25-115); Aspartate Amino Transferase 20 U/L (15-37); Estimated GFR (African America >60 (>=60); Estimated GFR (Non-African Ame >60 (>=60)
[2023-12-05] MEDS: FLUCONAZOLE 150 MG TABLET PO (16:53)
== END 2023-12-05 17:01 | disposition home or self-care (01) ==
LOC: LAB 14:40 → FBC 14:43
PROVIDERS: Visit Provider Obstetrics & Gynecology
DX: O26.899 Other specified pregnancy related conditions, unspecified trimester (principal)
CPT/HCPCS: 36415; 59025; 81001; 82150; 82565; 83690; 84450; 84460; 84520; 85025; 87086

== ENCOUNTER 2023-12-24 15:01 | Outpatient (OUT) | payer MEDICAID, SELFPAY ==
--- NOTE | 2023-12-24 15:04 | US_ITS ---
[address] [address] Patient Name: TEODORO HERNANDES MRN: [id number] date: 2000 Sex: F Assigned Patient Location: [facility] Current Patient Location: [facility] Accession/Order Number: [id number] Exam Date: 12/24/2023 15:05 Report Date: 12/24/2023 16:15 At the request of: CHUNG MAGDALENO Procedure: US OB growth EXAMINATION: US OB growth HISTORY: LARGE FOR GESTATIONAL AGE COMPARISON: No relevant comparison available. FINDINGS: Heart Rate: 143 bpm Amniotic Fluid Volume: 25.2 cm, largest pocket 5.6cm Number: 1 Position: Cephalic presentation, longitudinal lie BIOMETRY: BPD: 8.57 cm; 34w4d; 87.30 % HC: 32.04 cm; 36w1d; 90.30 % AC: 32.38 cm; 36w2d; >97 % FL: 7.13 cm; 36w4d; >97 % EFW: 2683.14 g; >97 %, 6 lb 5 oz FL/AC: 22.02 FL/BPD: 83.20 HC/AC: 0.99 GESTATIONAL AGE: Age by EDC: 32w6d ROGER by EDC: 2024-02-12 Age by US: 35w6d ROGER by US: 2024-01-22 US/US OB growth IMPRESSION: Large for gestational age, estimated weight > 97% Electronically authenticated by: LISETTE JIMENEZ Date: 12/24/2023 16:15
== END 2023-12-24 15:02 | disposition home or self-care (01) ==
LOC: NOMS 15:01
PROVIDERS: Visit Provider Obstetrics & Gynecology
DX: O36.63X0 Maternal care for excessive fetal growth, third trimester, not applicable or unspecified (principal); O40.3XX0 Polyhydramnios, third trimester, not applicable or unspecified; Z3A.35 35 weeks gestation of pregnancy
CPT/HCPCS: 76816

== ENCOUNTER 2023-12-29 22:46 | Observation (INO) | payer MEDICAID, SELFPAY ==
--- OUTSIDE RECORDS SUMMARY | 2023-12-29 22:51 | XMS_ITS | CCD ---
Demographics Address [address] [place] [address] Preferred Language en Marital Status Single Christian Affiliation Unknown Race Unknown Ethnic Group Not or Lati no Author Organization 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 Name Role Phone Unavailable Primary Care Provider [...] Propensity to adverse reactions to drug 07-07-2020 [facility] [place] Medications Current Medications Medication Drug Class(es) Dates [...] Refill(s) 0 Start Date: 10/26/23 Status: Ordered Xogrnxcj-Kzm-Al-FA ( 1 + IRON PO) (4 sources) Ncnrsrle-Dig-My-FA ( 1 + IRON PO) Take by [...] Range Facility Nursing Assessmenton 024 Nursing Assessment [id number] 2#1.00TIFF Normal [facility] C Urineon 10-28-2023 Bacteria identified Cx [...] Locations R1: This test was performed at: [facility], [address] [place] [address], [id number] , , [facility] Comment on above: Performed By: #### 2 [id number] #### [facility] [address] [place] [address] Consent for Treatmenton 10-01 Consent for Treatment [id number] #1.00TIFF [facility] Discharge Instructionson Discharge Instructions [id number] 7#1.00TIFF [facility] Inpatient Clinical Summaryon 10-26-2023 Inpatient Clinical Summary [address] [address] Clinical Summary Person Information Name: TEODORO UPTON[facility] Age: 23 Years : 2000 Sex: Female PCP: NONE, XXXX Marital Status: Single Phone: [phone] Race: or Ethnicity: Non- or Language: Bermudian Visit Id: Visit Reason: 24 WEEKS BLEEDING Speciality: Acuity: Obs Enc Type: OB Triage Med Service: Obstetrics Arrival: 10/25/2023 23:36:04 Discharge: 10/26/2023 03:30:56 Dispo Type: Home (Routine DC) Address: [facility] [address] [facility] [id number] Provider Notes: Diagnosis: Problems Active (10/26/2023) Smoker [...] Physician: Follow up: With: Address: [facility] [address] [place] [address] [place] [address] Business (1) In 9 days 11/04/2023 Patient Education Information: and Urinary Tract Infection; Vaginal Bleeding During , Second Trimester; Back Pain in Normal [facility] Inpatient Patient Summaryon 10-26-2023 Inpatient Patient Summary [address] [address] Patient Discharge Instructions PERSON INFORMATION [...] Follow up: With: Address: When: Chung YOUSIF [facility], [address] [place] [address] , [place] [address] Business (1) In 9 days [...] Always wi (more content not included)... Normal [facility] Insurance Correspondenceon 0 10-26-2023 Insurance Correspondence [id number] 8#1.00TIFF Normal [facility] UA with Cult Rflxon 10-26-19 24 Bacteria Auto Ql (U) Trace Normal Trace [facility] Comment on above: Performed By: #### 4 [id number] #### [facility] [address] [place] [address] Bilirubin Ql (U) Negative Normal Negative [facility] Comment on above: Performed By: #### 4 [id number] #### [facility] [address] [place] [address] Clarity (U) Turbid Abnormal Clear [facility] Comment on above: Performed By: #### 4 [id number] #### [facility] [address] [place] [address] Color (U) Yellow Normal Yellow [facility] Comment on above: Result Comment: Micr oscopic readings are only performed on those samples that meet specific criteria set forth by [facility]. Performed By: #### 4 [id number] #### [facility] [address] [place] [address] Epithelial cells.squamous Auto (Urine sed) [#/Area] 5-8 Abnormal 0-2 [facility] Comment on above: Performed By: #### 4 [id number] #### [facility] [address] [place] [address] Glucose Ql (U) Negative Normal Negative [facility] Comment on above: Performed By: #### 4 [id number] #### [facility] [address] [place] [address] Hemoglobin Auto test strip (U) [Mass/Vol] Negative Normal Negative [facility] Comment on above: Performed By: #### 4 [id number] #### [facility] [address] [place] [address] Hyaline casts LM Ql (Urine sed) 0-3 Normal 0-3 [facility] Comment on above: Performed By: #### 4 [id number] #### [facility] [address] [place] [address] Ketones Auto test strip Ql (U) Negative Normal Negative [facility] Comment on above: Performed By: #### 4 [id number] #### [facility] [address] [place] [address] Leukocyte esterase Auto test strip Ql (U) 500 Gerald/uL Abnormal Negative [facility] Comment on above: Performed By: #### 4 [id number] #### [facility] [address] [place] [address] Mucus Auto Ql (U) Trace Normal Negative [facility] Comment on above: Performed By: #### 4 [id number] #### [facility] [address] [place] [address] Nitrite Auto test strip Ql (U) Negative Normal Negative [facility] Comment on above: Performed By: #### 4 [id number] #### [facility] [address] [place] [address] pH (U) 6.0 [pH] Invalid Interpretation Code 5.0-9.0 [facility] Comment on above: Performed By: #### 4 [id number] #### [facility] [address] [place] [address] Protein Ql (U) Trace Abnormal Negative [facility] Comment on above: Performed By: #### 4 [id number] #### [facility] [address] [place] [address] RBC Ql (U) 4-20 Abnormal 0-3 [facility] Comment on above: Performed By: #### 4 [id number] #### [facility] [address] [place] [address] Specific gravity (U) [Rel density] 1.030 Invalid Interpretation Code 1.005-1.030 [facility] Comment on above: Performed By: #### 4 [id number] #### [facility] [address] [place] [address] Urobilinogen (U) [Mass/Vol] Negative Normal Negative [facility] Comment on above: Performed By: #### 4 [id number] #### [facility] [address] [place] [address] WBC Auto (Urine sed) [#/Area] 16-25 Abnormal 0-5 [facility] Comment on above: Performed By: #### 4 [id number] #### [facility] [address] [place] [address] Type of Urine collection method Clean Catch Normal [facility] Comment on above: Performed By: #### 4 [id number] #### [facility] [address] [place] [address] URINALYSISOrdered By: SYSTEM SYSTEM on 10-25-2023 Bacteria [...] that meet specific criteria set forth by [facility]. Epithelial cells.squamous Auto (Urine sed) [...] 16-25 graded/HPF Invalid Interpretation Code 0-5graded/HP F [facility] UA Auto SS URINALYSISOrdered By: Elijah Hernandez on 10-25-2023 UA Spec Desc Clean Catch (10/25/23 11:53 PM) Normal [facility] UA Auto SS Urinalysis macro (dipstick) panel (U)on 07-17-2023 Bilirubin, UA Negative Negative - 4(70) +++ mg/dL [facility] Blood, UA Negative Negative - 50 William/mcL [facility] Healthcare Clarity, UA Clear [facility] Color, UA Yellow [facility] Glucose, UA Negative Negative - 1999(110) ++++ mg/dL [facility] Interpretation and review of laboratory results Abnormal [facility] Ketones, UA Negative Negative - 160(16) ++++ mg/dL [facility] Leukocytes, UA Positive Negative - 500+++ Gerald/mcL [facility] Nitrite, UA Negative Negative - Positive [facility] pH, UA 7.0 5 - 9 [facility] Protein, UA Negative Negative - 1999(20) ++++ mg/dL [facility] Spec Grav, UA 1.020 1 - 1.03 [facility] Urobilinogen, UA 0.2 0.2 - 12 mg/dL [facility] HCG ( test) Ql (U)o n 07-03-2023 Interpretation and review of laboratory results Abnormal [facility] Preg Test, Ur Negative [facility] Urinalysis macro (dipstick) panel (U)on 07-03-2023 Bilirubin, UA Negative Negative - 4(70) +++ mg/dL [facility] Blood, UA Negative Negative - 50 William/mcL [facility] Clarity, UA Clear [facility] Color, UA Yellow [facility] Glucose, UA Negative Negative - 1999(110) ++++ mg/dL [facility] Interpretation and review of laboratory results Normal [facility] Ketones, UA Negative Negative - 160(16) ++++ mg/dL [facility] Leukocytes, UA Negative Negative - 500+++ Gerald/mcL [facility] Nitrite, UA Negative Negative - Positive [facility] pH, UA 5.5 5 - 9 [facility] Protein, UA Negative Negative - 1999(20) ++++ mg/dL [facility] Healthcare Spec Grav, UA 1.010 1 - 1.03 [facility] Urobilinogen, UA 1.0 0.2 - 12 mg/dL [facility] XR FOOT RT MIN 3 VIEWSon XR [...] PADDY SAPP Date: 2022-08-30 14:42 Normal [facility] CBC AUTO DIFFon 06-28-2022 BASO # 0.0 103/ul Normal 0.0-0.1 [facility] Comment on above: Performed By: #### C BC #### [facility] [address] [place] [address] Dr. Jerald Poon Basophils/100 WBC (Bld) 0.3 % Normal 0.2-2.0 [facility] Comment on above: Performed By: #### C BC #### [facility] [address] [place] [address] Dr. Jerald Poon EO # 0.1 103/ul Normal 0.0-0.7 [facility] Comment on above: Performed By: #### C BC #### [facility] [address] [place] [address] Dr. Jerald Poon Eosinophils/100 WBC (Bld) 1.1 % Normal 0.9-7.0 [facility] Comment on above: Performed By: #### C BC #### [facility] [address] [place] [address] Dr. Jerald Poon Erythrocyte distribution width (RBC) [Ratio] 14.5 % Normal 11.0-15.0 [facility] Comment on above: Performed By: #### C BC #### [facility] [address] [place] [address] Dr. Jerald Poon Hematocrit (Bld) [Volume fraction] 36.7 % Normal 36.0-48.0 [facility] Comment on above: Performed By: #### C BC #### [facility] [address] [place] [address] Dr. Jerald Poon Hemoglobin (Bld) [Mass/Vol] 13.0 g/dL Normal 12.0-16.0 [facility] Comment on above: Performed By: #### C BC #### [facility] [address] [place] [address] Dr. Jerald Poon IG # 0.04 10e3/ul Critically high 0.00-0.03 [facility] Comment on above: Performed By: #### C BC #### [facility] [address] [place] [address] Dr. Jerald Poon IG % 0.3 % Normal 0.0-0.5 [facility] Comment on above: Performed By: #### C BC #### [facility] [address] [place] [address] Dr. Jerald Poon LYMPH # 3.0 103/ul Normal 1.2-3.8 [facility] Comment on above: Performed By: #### C BC #### [facility] [address] [place] [address] Dr. Jerald Poon Lymphocytes/100 WBC (Bld) 26.2 % Normal 20.5-60.0 [facility] Comment on above: Performed By: #### C BC #### [facility] [address] [place] [address] Dr. Jerald Poon MANUAL DIFF REQ NO Normal [facility] Comment on above: Performed By: #### C BC #### [facility] [address] [place] [address] Dr. Jerald Poon MCH (RBC) [Entitic mass] 27.1 pg Normal 26.7-34.0 [facility] Comment on above: Performed By: #### C BC #### [facility] [address] [place] [address] Dr. Jerald Poon MCHC (RBC) [Mass/Vol] 35.4 g/dL Critically high 29.9-35.2 [facility] Comment on above: Performed By: #### C BC #### [facility] [address] [place] [address] Dr. Jerald Poon MCV (RBC) [Entitic vol] 76.6 fL Critically low 81.0-99.0 [facility] Comment on above: Performed By: #### C BC #### [facility] [address] [place] [address] Dr. Jerald Poon MONO # 0.8 103/ul Normal 0.3-0.8 [facility] Comment on above: Performed By: #### C BC #### [facility] [address] [place] [address] Dr. Jerald Poon Monocytes/100 WBC (Bld) 7.0 % Normal 1.7-12.0 [facility] Comment on above: Performed By: #### C BC #### [facility] [address] [place] [address] Dr. Jerald Poon NEUT # 7.5 103/ul Critically high 1.4-6.5 [facility] Comment on above: Performed By: #### C BC #### [facility] [address] [place] [address] Dr. Jerald Poon Neutrophils/100 WBC (Bld) 65.1 % Normal 43.0-75.0 [facility] Comment on above: Performed By: #### C BC #### [facility] [address] [place] [address] Dr. Jerald Poon Platelet mean volume (Bld) [Entitic vol] 10.0 fL Normal 9.5-13.5 [facility] Comment on above: Performed By: #### C BC #### [facility] [address] [place] [address] Dr. Jerald Poon PLT 387 103/ul Normal 150-450 [facility] Comment on above: Performed By: #### C BC #### [facility] [address] [place] [address] Dr. Jerald Poon RBC 4.79 106/ul Normal 4.20-5.40 [facility] Comment on above: Performed By: #### C BC #### [facility] [address] [place] [address] Dr. Jerald Poon WBC 11.6 103/ul Critically high 4.0-11.0 [facility] Comment on above: Performed By: #### C BC #### [facility] [address] [place] [address] Dr. Jerald Poon CULTURE URINEon 06-28-2022 CULTURE URINE Culture Observations: LIGHT GROWTH OF MIXED GENITAL ZACARIAS. NO POTENTIAL PATHOGENS SEEN. Normal [facility] Comment on above: Performed By: #### U RCX #### [facility] [address] [place] [address] Dr. Jerald Poon ER URINE PROFILEon 3 Bilirubin Ql (U) Negative Normal NEGATIVE [facility] Comment on above: Performed By: #### U MICRO, ERUR #### [facility] [address] [place] [address] Dr. Jerald Poon Clarity (U) CLEAR Normal CLEAR [facility] Comment on above: Performed By: #### U MICRO, ERUR #### [facility] [address] [place] [address] Dr. Jerald Poon Color (U) YELLOW Normal YELLOW [facility] Comment on above: Performed By: #### U MICRO, ERUR #### [facility] [address] [place] [address] Dr. Jerald Poon ERUAHD A micrscopic examination will be performed if indicated. Normal [facility] Comment on above: Performed By: #### U MICRO, ERUR #### [facility] [address] [place] [address] Dr. Jerald Poon Glucose Ql (U) Negative Normal NEGATIVE [facility] Comment on above: Performed By: #### U MICRO, ERUR #### [facility] [address] [address] [address] Jerald Poon Hemoglobin Ql (U) Negative Normal NEGATIVE [facility] Comment on above: Performed By: #### U MICRO, ERUR #### [facility] [address] [address] [address] Jerald Poon Ketones Ql (U) 40 mg/dl Abnormal NEGATIVE [facility] Comment on above: Performed By: #### U MICRO, ERUR #### [facility] [address] [place] [address] Dr. Jerald Poon LEUKOCYTES TRACE Abnormal NEGATIVE [facility] Comment on above: Performed By: #### U MICRO, ERUR #### [facility] [address] [address] [address] Jerald Poon Nitrite Ql (U) Negative Normal NEGATIVE [facility] Comment on above: Performed By: #### U MICRO, ERUR #### [facility] [address] [address] [address] Jerald Poon pH (U) 6.0 [pH] Normal 5-9 [facility] Comment on above: Performed By: #### U MICRO, ERUR #### [facility] [address] [place] [address] Dr. Jerald Poon SPEC GRAVITY >=1.030 Abnormal 1.005-<=1.02 5 [facility] Comment on above: Performed By: #### U MICRO, ERUR #### [facility] [address] [address] [address] Jerald Poon UA PROTEIN Negative Normal NEGATIVE/ TRACE [facility] Comment on above: Performed By: #### U MICRO, ERUR #### [facility] [address] [address] [address] Jerald Poon UR MICRO IND INDICATED Normal [facility] Comment on above: Performed By: #### U MICRO, ERUR #### [facility] [address] [place] [address] Dr. Jerald Poon Urobilinogen Qn (U) 0.2 {Lyly'U}/dL Normal 0.2 - 1. 0 [facility] Comment on above: Performed By: #### U MICRO, ERUR #### [facility] [address] [place] [address] Dr. Jerald Poon PREG QUANT HCGon 06-28-2022 HCG QUANT <1 Normal [facility] Comment on above: Performed By: #### P REGQNT #### [facility] [address] [place] [address] Dr. Jerald Poon HCG RANGE SEE BELOW Normal [facility] Comment on above: Result Comment: 5-50 0.2-1 WEEK 50-500 1-2 WEEKS 100-5,000 2-3 WEEKS 500-10,000 3-4 WEEKS 1,000-50,000 4-5 WEEKS 10,000-100,000 5-6 WEEKS 15,000-200,000 6-8 WEEKS 10,000-100,000 2-3 MONTHS Performed By: #### P REGQNT #### [facility] [address] [place] [address] Dr. Jerald Poon PROF CHEM 8 (BAS METB)on Anion gap [Moles/Vol] 14.0 mmol/L Normal [facility] Comment on above: Performed By: #### C BC #### [facility] [address] [place] [address] Dr. Jerald Poon Calcium [Mass/Vol] 9.6 mg/dL Normal 8.5-10.1 [facility] Comment on above: Performed By: #### C BC #### [facility] [address] [place] [address] Dr. Jerald Poon Chloride [Moles/Vol] 101 mmol/L Normal 98-107 [facility] Comment on above: Performed By: #### C BC #### [facility] [address] [place] [address] Dr. Jerald Poon CO2 [Moles/Vol] 25.4 mmol/L Normal 21.0-32.0 [facility] Comment on above: Performed By: #### C BC #### [facility] [address] [place] [address] Dr. Jerald Poon Creatinine [Mass/Vol] 0.92 mg/dL Normal 0.55-1.02 [facility] Comment on above: Performed By: #### C BC #### [facility] [address] [address] [address] Jerald Poon EGFR-AF DUTCH >60 Normal >=60 [facility] Comment on above: Performed By: #### C BC #### [facility] [address] [address] [address] Jerald Poon EGFR-NON AF DUTCH >60 Normal >=60 [facility] Comment on above: Performed By: #### C BC #### [facility] [address] [address] [address] Jerald Poon Glucose [Mass/Vol] 101 mg/dL Normal 74-106 [facility] Comment on above: Performed By: #### C BC #### [facility] [address] [address] [address] Jerald Poon Potassium [Moles/Vol] 3.4 mmol/L Critically low 3.5-5.1 [facility] Comment on above: Performed By: #### C BC #### [facility] [address] [address] [address] Jerald Poon Sodium [Moles/Vol] 137 mmol/L Normal 136-145 [facility] Comment on above: Performed By: #### C BC #### [facility] [address] [address] [address] Jerald Poon Urea nitrogen [Mass/Vol] 11.0 mg/dL Normal 7.0-18.0 [facility] Comment on above: Performed By: #### C BC #### [facility] [address] [address] [address] Jerald Poon Urea nitrogen/Creatinine [Mass ratio] 12.0 mg/mg Normal [facility] Comment on above: Performed By: #### C BC #### [facility] [address] [address] [address] Jerald Poon TSHon 06-28-2022 TSH 1.319 uIU/mL Normal 0.358-3.740 [facility] Comment on above: Performed By: #### C BC #### [facility] [address] [address] [address] Jerald Poon URINE MICROSCOPIC ONLYon BACTERIA SMALL Abnormal NONE SEEN [facility] Comment on above: Performed By: #### U MICRO, ERUR #### [facility] [address] [place] [address] Dr. Jerald Poon Bacteria identified Cx Nom (U) INDICATED Normal [facility] Comment on above: Performed By: #### U MICRO, ERUR #### [facility] [address] [place] [address] Dr. Jerald Poon CAST NONE SEEN Normal NONE SEEN [facility] Comment on above: Performed By: #### U MICRO, ERUR #### [facility] [address] [place] [address] Dr. Jerald Poon Crystals LM Nom (Urine sed) NONE SEEN Normal NONE SEEN [facility] Comment on above: Performed By: #### U MICRO, ERUR #### [facility] [address] [place] [address] Dr. Jerald Poon Epithelial cells LM Ql (Urine sed) FEW Abnormal NONE SEEN /RARE [facility] Comment on above: Performed By: #### U MICRO, ERUR #### [facility] [address] [place] [address] Dr. Jerald Poon MUCOUS NONE SEEN Normal NONE SEEN [facility] Comment on above: Performed By: #### U MICRO, ERUR #### [facility] [address] [address] [address] Jerald Poon RBC NONE SEEN Abnormal 0-2 [facility] Comment on above: Performed By: #### U MICRO, ERUR #### [facility] [address] [place] [address] Dr. Jerald Poon WBC 2-5 Abnormal NONE SEEN [facility] Comment on above: Performed By: #### U MICRO, ERUR #### [facility] [address] [place] [address] Dr. Jerald Poon CBC AUTO DIFFon 10-31-2022 BASO # 0.0 103/ul Normal 0.0-0.1 [facility] Comment on above: Performed By: #### C BC #### [facility] [address] [place] [address] Dr. Jerald Poon Basophils/100 WBC (Bld) 0.5 % Normal 0.2-2.0 [facility] Comment on above: Performed By: #### C BC #### [facility] [address] [place] [address] Dr. Jerald Poon EO # 0.1 103/ul Normal 0.0-0.7 [facility] Comment on above: Performed By: #### C BC #### [facility] [address] [place] [address] Dr. Jerald Poon Eosinophils/100 WBC (Bld) 1.7 % Normal 0.9-7.0 [facility] Comment on above: Performed By: #### C BC #### [facility] [address] [place] [address] Dr. Jerald Poon Erythrocyte distribution width (RBC) [Ratio] 14.2 % Normal 11.0-15.0 [facility] [facility] Comment on above: Performed By: #### C BC #### [facility] [address] [place] [address] Dr. Jerald Poon Hematocrit (Bld) [Volume fraction] 36.7 % Normal 36.0-48.0 [facility] Comment on above: Performed By: #### C BC #### [facility] [address] [place] [address] Dr. Jerald Poon Hemoglobin (Bld) [Mass/Vol] 12.1 g/dL Normal 12.0-16.0 [facility] Comment on above: Performed By: #### C BC #### [facility] [address] [place] [address] Dr. Jerald Poon IG # 0.01 10e3/ul Normal 0.00-0.03 [facility] Comment on above: Performed By: #### C BC #### [facility] [address] [place] [address] Dr. Jerald Poon IG % 0.1 % Normal 0.0-0.5 [facility] Comment on above: Performed By: #### C BC #### [facility] [address] [place] [address] Dr. Jerald Poon LYMPH # 2.3 103/ul Normal 1.2-3.8 [facility] Comment on above: Performed By: #### C BC #### [facility] [address] [place] [address] Dr. Jerald Poon Lymphocytes/100 WBC (Bld) 30.8 % Normal 20.5-60.0 [facility] Comment on above: Performed By: #### C BC #### [facility] [address] [place] [address] Dr. Jerald Poon MANUAL DIFF REQ NO Normal [facility] Comment on above: Performed By: #### C BC #### [facility] [address] [place] [address] Dr. Jerald Poon MCH (RBC) [Entitic mass] 27.3 pg Normal 26.7-34.0 [facility] Comment on above: Performed By: #### C BC #### [facility] [address] [place] [address] Dr. Jerald Poon MCHC (RBC) [Mass/Vol] 33.0 g/dL Normal 29.9-35.2 [facility] Comment on above: Performed By: #### C BC #### [facility] [address] [place] [address] Dr. Jerald Poon MCV (RBC) [Entitic vol] 82.7 fL Normal 81.0-99.0 [facility] Comment on above: Performed By: #### C BC #### [facility] [address] [place] [address] Dr. Jerald Poon MONO # 0.8 103/ul Normal 0.3-0.8 [facility] Comment on above: Performed By: #### C BC #### [facility] [address] [place] [address] Dr. Jerald Poon Monocytes/100 WBC (Bld) 10.6 % Normal 1.7-12.0 [facility] Comment on above: Performed By: #### C BC #### [facility] [address] [place] [address] Dr. Jerald Poon NEUT # 4.2 103/ul Normal 1.4-6.5 [facility] Comment on above: Performed By: #### C BC #### [facility] [address] [place] [address] Dr. Jerald Poon Neutrophils/100 WBC (Bld) 56.3 % Normal 43.0-75.0 [facility] Comment on above: Performed By: #### C BC #### [facility] [address] [place] [address] Dr. Jerald Poon Platelet mean volume (Bld) [Entitic vol] 10.2 fL Normal 9.5-13.5 [facility] Comment on above: Performed By: #### C BC #### [facility] [address] [place] [address] Dr. Jerald Poon PLT 375 103/ul Normal 150-450 [facility] Comment on above: Performed By: #### C BC #### [facility] [address] [place] [address] Dr. Jerald Poon RBC 4.44 106/ul Normal 4.20-5.40 [facility] Comment on above: Performed By: #### C BC #### [facility] [address] [place] [address] Dr. Jerald Poon WBC 7.5 103/ul Normal 4.0-11.0 [facility] Comment on above: Performed By: #### C BC #### [facility] [address] [place] [address] Dr. Jerald Poon ER URINE PROFILEon 2 Bilirubin Ql (U) Negative Normal NEGATIVE [facility] Comment on above: Performed By: #### C BC #### [facility] [address] [place] [address] Dr. Jerald Poon Clarity (U) CLEAR Normal CLEAR [facility] Comment on above: Performed By: #### C BC #### [facility] [address] [place] [address] Dr. Jerald Poon Color (U) YELLOW Normal YELLOW [facility] Comment on above: Performed By: #### C BC #### [facility] [address] [place] [address] Dr. Jerald CEBALLOS A micrscopic examination will be performed if indicated. Normal [facility] Comment on above: Performed By: #### C BC #### [facility] [address] [place] [address] Dr. Jerald Poon Glucose Ql (U) Negative Normal NEGATIVE [facility] Comment on above: Performed By: #### C BC #### [facility] [address] [address] [address] Jerald Poon Hemoglobin Ql (U) Negative Normal NEGATIVE [facility] Comment on above: Performed By: #### C BC #### [facility] [address] [place] [address] Dr. Jerald Poon Ketones Ql (U) Negative Normal NEGATIVE [facility] Comment on above: Performed By: #### C BC #### [facility] [address] [place] [address] Dr. Jerald Poon LEUKOCYTES Negative Normal NEGATIVE [facility] Comment on above: Performed By: #### C BC #### [facility] [address] [place] [address] Dr. Jerald Poon Nitrite Ql (U) Negative Normal NEGATIVE [facility] Comment on above: Performed By: #### C BC #### [facility] [address] [place] [address] Dr. Jerald Poon pH (U) 7.0 [pH] Normal 5-9 [facility] Comment on above: Performed By: #### C BC #### [facility] [address] [place] [address] Dr. Jerald Poon SPEC GRAVITY 1.025 Normal 1.005-<=1.02 5 [facility] Comment on above: Performed By: #### C BC #### [facility] [address] [place] [address] Dr. Jerald Poon UA PROTEIN Negative Normal NEGATIVE/ TRACE [facility] Comment on above: Performed By: #### C BC #### [facility] [address] [address] [address] Jerald Poon UR MICRO IND NOT INDICATED Normal [facility] Comment on above: Performed By: #### C BC #### [facility] [address] [address] [address] Jerald Poon Urobilinogen Qn (U) 1.0 {Lyly'U}/dL Normal 0.2 - 1. 0 [facility] Comment on above: Performed By: #### C BC #### [facility] [address] [place] [address] Dr. Jerald Poon PREG QUANT HCGon 04-01-2022 HCG QUANT 1 mIU/mL Normal [facility] Comment on above: Performed By: #### P REGQNT #### [facility] [address] [place] [address] Dr. Jerald Poon HCG RANGE SEE BELOW Normal [facility] Comment on above: Result Comment: 5-50 0.2-1 WEEK 50-500 1-2 WEEKS 100-5,000 2-3 WEEKS 500-10,000 3-4 WEEKS 1,000-50,000 4-5 WEEKS 10,000-100,000 5-6 WEEKS 15,000-200,000 6-8 WEEKS 10,000-100,000 2-3 MONTHS Performed By: #### P REGQNT #### [facility] [address] [place] [address] Dr. Jerald Poon PROF 14(COMP METB)on 022 Albumin [Mass/Vol] 3.6 g/dL Normal 3.4-5.0 [facility] Comment on above: Performed By: #### C MP #### [facility] [address] [place] [address] Dr. Jerald Poon Albumin/Globulin [Mass ratio] 0.8 {ratio} Normal [facility] Comment on above: Performed By: #### C MP #### [facility] [address] [place] [address] Dr. Jerald Poon ALP [Catalytic activity/Vol] 65 U/L Normal 46-116 [facility] Comment on above: Performed By: #### C MP #### [facility] [address] [address] [address] Jerald Poon ALT [Catalytic activity/Vol] 22 U/L Normal 14-59 [facility] Comment on above: Performed By: #### C MP #### [facility] [address] [address] [address] Jerald Poon Anion gap [Moles/Vol] 10.3 mmol/L Normal [facility] Comment on above: Performed By: #### C MP #### [facility] [address] [address] [address] Jerald Poon AST [Catalytic activity/Vol] 14 U/L Critically low 15-37 [facility] Comment on above: Performed By: #### C MP #### [facility] [address] [address] [address] Jerald Poon Bilirubin [Mass/Vol] 0.1 mg/dL Critically low 0.2-1.0 [facility] Comment on above: Performed By: #### C MP #### [facility] [address] [address] [address] Jerald Poon Calcium [Mass/Vol] 8.6 mg/dL Normal 8.5-10.1 [facility] Comment on above: Performed By: #### C MP #### [facility] [address] [address] [address] Jerald Poon Chloride [Moles/Vol] 104 mmol/L Normal 98-107 [facility] Comment on above: Performed By: #### C MP #### [facility] [address] [address] [address] Jerald Poon CO2 [Moles/Vol] 28.1 mmol/L Normal 21.0-32.0 [facility] Comment on above: Performed By: #### C MP #### [facility] [address] [address] [address] Jerald Poon Creatinine [Mass/Vol] 0.99 mg/dL Normal 0.55-1.02 [facility] Comment on above: Performed By: #### C MP #### [facility] [address] [address] [address] Jerald Poon EGFR-AF DUTCH >60 Normal >=60 [facility] Comment on above: Performed By: #### C MP #### [facility] [address] [address] [address] Jerald Poon EGFR-NON AF DUTCH >60 Normal >=60 [facility] Comment on above: Performed By: #### C MP #### [facility] [address] [address] [address] Jerald Poon Globulin (S) [Mass/Vol] 4.5 g/dL Normal [facility] Comment on above: Performed By: #### C MP #### [facility] [address] [address] [address] Jerald Poon Glucose [Mass/Vol] 94 mg/dL Normal 74-106 [facility] Comment on above: Performed By: #### C MP #### [facility] [address] [address] [address] Jerald Poon Potassium [Moles/Vol] 3.4 mmol/L Critically low 3.5-5.1 [facility] Comment on above: Performed By: #### C MP #### [facility] [address] [address] [address] Jerald Poon Protein [Mass/Vol] 8.1 g/dL Normal 6.4-8.2 [facility] Comment on above: Performed By: #### C MP #### [facility] [address] [address] [address] Jerald Poon Sodium [Moles/Vol] 139 mmol/L Normal 136-145 [facility] Comment on above: Performed By: #### C MP #### [facility] [address] [address] [address] Jerald Poon Urea nitrogen [Mass/Vol] 8.0 mg/dL Normal 7.0-18.0 [facility] Comment on above: Performed By: #### C MP #### [facility] [address] [address] [address] Jerald Poon Urea nitrogen/Creatinine [Mass ratio] 8.1 mg/mg Normal [facility] Comment on above: Performed By: #### C #### [facility] [id number] Jerald Poon US PELVIS TRANSVAGon 022 [...] LUH MANRIQUE Date: 2022-04-01 21:55 Normal [facility] Automated erythrocytes count in urine sediment (number/area)Ordered By: Anders Sesay on 10-19-2021 RBC Auto (Urine sed) [#/Area] 1-2 [HPF] [facility] Automated leukocytes count i n urine sediment (number/area)Ordered By: Anders Sesay on 10-19-2021 WBC Auto (Urine sed) [#/Area] 3-4 [HPF] [facility] Basophils Auto (Bld) [#/Vol] Ordered By: Anders Sesay on 10-19-2021 Basophils (Bld) [#/Vol] 0.1 10*3/uL 0.0-0.2 [facility] Basophils/100 WBC Auto (Bld) Ordered By: Anders Sesay on 10-19-2021 Basophils/100 WBC (Bld) 0.6 % [facility] Bilirubin Test strip Ql (U)O rdered By: Anders Sesay on 10-19-2021 Bilirubin Ql (U) Negative Negative [facility] Blood hemoglobin measurement (mass/volume)Ordered By: Anders Sesay on 10-19-2021 Hemoglobin (Bld) [Mass/Vol] 13.2 g/dL 11.8-15.4 [facility] Blood leukocytes automated c ount (number/volume)Ordered By: Anders Sesay on 10-19-2021 WBC (Bld) [#/Vol] 9.1 10*3/uL 4.5-11.0 [facility] Body fluid albumin measureme nt (mass/volume)Ordered By: Anders Sesay on 10-19-2021 Albumin (Body fld) [Mass/Vol] 3.8 g/dL 3.2-5.5 [facility] Color Auto (U)Ordered By: Jason Sesay on 10-19-2021 Color (U) Yellow Yellow [facility] Creatinine and Glomerular fi ltration rate.predicted panel (S/P/Bld)Ordered By: Anders Sesay on 10-19-2021 Creatinine [Mass/Vol] 0.87 mg/dL 0.44-1.03 [facility] Eosinophils Auto (Bld) [#/Vo l]Ordered By: Anders Sesay on 10-19-2021 Eosinophils (Bld) [#/Vol] 0.1 10*3/uL 0.0-0.45 [facility] Eosinophils/100 WBC Auto (Bl d)Ordered By: Anders Sesay on 10-19-2021 Eosinophils/100 WBC (Bld) 0.9 % [facility] Erythrocyte distribution wid th Auto (RBC) [Ratio]Ordered By: Anders Sesay on 10-19-2021 Erythrocyte distribution width (RBC) [Ratio] 16.4 % 11.9-15.3 [facility] Estimated glomerular filtrat ion rate (GFR) non- AmericanOrdered By: Anders Sesay on 10-19-2021 GFR/1.73 sq M.predicted among non-blacks MDRD (S/P/Bld) [Vol rate/Area] > 60 mL/Min [facility] Globulin Calc (S) [Mass/Vol] Ordered By: Anders Sesay on 10-19-2021 Globulin (S) [Mass/Vol] 4.3 g/dL [facility] HCG ( test) IA.rapi d Ql (U)Ordered By: Anders Sesay on 10-19-2021 HCG ( test) Ql (U) Negative [facility] Hematocrit Auto (Bld) [Volum e fraction]Ordered By: Anders Sesay on 10-19-2021 Hematocrit (Bld) [Volume fraction] 40.2 % 34.0-46.4 [facility] Ketones Auto test strip (U) [Mass/Vol]Ordered By: Anders Sesay on 10-19-2021 Ketones (U) [Mass/Vol] Negative Negative [facility] - Hematology and Cell countsOrdered By: Anders Sesay on 10-19-2021 Nucleated RBC/100 WBC (Bld) [Ratio] 0.2 % 0-0.5 [facility] - UrinalysisOrder ed By: Anders Sesay on 10-19-2021 Hyaline casts LM Ql (Urine sed) 0-8 [LPF] [facility] Lymphocytes Auto (Bld) [#/Vo l]Ordered By: Anders Sesay on 10-19-2021 Lymphocytes (Bld) [#/Vol] 2.4 10*3/uL 1.00-4.8 [facility] Lymphocytes/100 WBC Auto (Bl d)Ordered By: Anders Sesay on 10-19-2021 Lymphocytes/100 WBC (Bld) 26.7 % [facility] MCH Auto (RBC) [Entitic mass ]Ordered By: Anders Sesay on 10-19-2021 MCH (RBC) [Entitic mass] 26.3 pg 24.7-34.3 [facility] MCHC Auto (RBC) [Mass/Vol]Or dered By: Anders Sesay on 10-19-2021 MCHC (RBC) [Mass/Vol] 32.9 g/dL 32.0-35.0 [facility] MCV Auto (RBC) [Entitic vol] Ordered By: Anders Sesay on 10-19-2021 MCV (RBC) [Entitic vol] 80.1 fL 80-100 [facility] Monocytes Auto (Bld) [#/Vol] Ordered By: Anders Sesay on 10-19-2021 Monocytes (Bld) [#/Vol] 0.7 10*3/uL 0.0-0.8 [facility] Monocytes/100 WBC Auto (Bld) Ordered By: Anders Sesay on 10-19-2021 Monocytes/100 WBC (Bld) 7.6 % [facility] Neutrophils Auto (Bld) [#/Vo l]Ordered By: Anders Sesay on 10-19-2021 Neutrophils (Bld) [#/Vol] 5.8 10*3/uL 1.8-7.7 [facility] Neutrophils/100 WBC Auto (Bl d)Ordered By: Anders Sesay on 10-19-2021 Neutrophils/100 WBC (Bld) 64.2 % [facility] Nitrite Test strip Ql (U)Ord ered By: Anders Sesay on 10-19-2021 Nitrite Ql (U) Negative Negative [facility] No Panel InformationOrdered By: Anders Sesay on 10-19-2021 Estimated GFR () > 60 mL/Min [facility] Comment on above: GFR estimated refere nce range: According to KDOQI guidelines, <60 ml/min/1.73m2 is sufficient to diagnose a patient with chronic kidney disease. Pharmacy Creatinine Clearance (Chem 147.41 [facility] Platelet mean volume Auto (B ld) [Entitic vol]Ordered By: Anders Sesay on 10-19-2021 Platelet mean volume (Bld) [Entitic vol] 8.6 fL 6.3-10.7 [facility] Platelets Auto (Bld) [#/Vol] Ordered By: Anders Sesay on 10-19-2021 Platelets (Bld) [#/Vol] 395 10*3/uL 150-450 [facility] Protein Auto test strip (U) [Mass/Vol]Ordered By: Anders Sesay on 10-19-2021 Protein (U) [Mass/Vol] Negative Negative [facility] Protein [Mass/volume] in Ser um or PlasmaOrdered By: Anders Sesay on 10-19-2021 Protein [Mass/Vol] 8.1 g/dL 6.1-7.9 [facility] RBC Auto (Bld) [#/Vol]Ordere d By: Anders Sesay on 10-19-2021 RBC (Bld) [#/Vol] 5.02 10*6/uL 3.60-5.00 [facility] Serum or plasma alanine ayoub otransferase measurement without P-5'-P (enzymatic activiOrdered By: Anders Sesay on 10-19-2021 ALT No additional P-5'-P [Catalytic activity/Vol] 20 U/L 10-60 [facility] Serum or plasma albumin/glob ulin mass ratioOrdered By: Anders Sesay on 10-19-2021 Albumin/Globulin [Mass ratio] 0.9 {ratio} [facility] Serum or plasma alkaline cosmo sphatase measurement (enzymatic activity/volume)Ordered By: Anders Sesay on 10-19-2021 ALP [Catalytic activity/Vol] 55 U/L 32-92 [facility] Serum or plasma aspartate am inotransferase measurement (enzymatic activity/volume)Ordered By: Anders Sesay on 10-19-2021 AST [Catalytic activity/Vol] 17 U/L 10-42 [facility] Serum or plasma calcium joann urement (mass/volume)Ordered By: Anders Sesay on 10-19-2021 Calcium [Mass/Vol] 9.1 mg/dL 8.2-10.2 [facility] Serum or plasma chloride adan surement (moles/volume)Ordered By: Anders Sesay on 10-19-2021 Chloride [Moles/Vol] 103 mmol/L 95-114 [facility] Serum or plasma glucose joann urement (mass/volume)Ordered By: Anders Sesay on 10-19-2021 Glucose [Mass/Vol] 105 mg/dL 70-100 [facility] Comment on above: ADA recommended refe [...] on 10-19-2021 Sodium [Moles/Vol] 137 mmol/L 136-146 [facility] Serum or plasma total biliru bin measurement (mass/volume)Ordered By: Anders Sesay on 10-19-2021 Bilirubin [Mass/Vol] 0.3 mg/dL 0.3-1.2 [facility] Serum or plasma total carbon dioxide measurement (moles/volume)Ordered By: Anders Sesay on 10-19-2021 CO2 [Moles/Vol] 24.2 mmol/L 22.0-30.0 [facility] Serum or plasma urea nitroge n measurement (mass/volume)Ordered By: Anders Sesay on 10-19-2021 Urea nitrogen [Mass/Vol] 7 mg/dL 9-23 [facility] Specific gravity Auto test s trip (U) [Rel density]Ordered By: Anders Sesay on 10-19-2021 Specific gravity (U) [Rel density] 1.014 1.001-1.030 [facility] Squamous epithelial cells de tection in urine sediment by light microscopyOrdered By: Anders Sesay on 10-19-2021 Epithelial cells.squamous LM Ql (Urine sed) 3-4 [HPF] [facility] Urine bacteria detection by automated methodOrdered By: Anders Sesay on 10-19-2021 Bacteria Auto Ql (U) 1+ None Seen [facility] Urine clarity by refractomet ry automatedOrdered By: Anders Sesay on 10-19-2021 Clarity Refractometry automated (U) Clear Clear [facility] Urine glucose measurement by automated test strip (mass/volume)Ordered By: Anders Sesay on 10-19-2021 Glucose Auto test strip (U) [Mass/Vol] Normal mg/dL Normal [facility] Urine hemoglobin detection b y automated test stripOrdered By: Anders Sesay on 10-19-2021 Hemoglobin Auto test strip Ql (U) Negative Negative [facility] Urine leukocyte esterase det ection by automated test stripOrdered By: Anders Sesay on 10-19-2021 Leukocyte esterase Auto test strip Ql (U) 1+ Negative [facility] Urobilinogen Auto test strip (U) [Mass/Vol]Ordered By: Anders Sesay on 10-19-2021 Urobilinogen (U) [Mass/Vol] Normal mg/dL Normal [facility] pH Auto test strip (U)Ordere d By: Anders Sesay on 10-19-2021 pH (U) 5.5 [pH] 5.0-9.0 [facility] US DUP ABD PEL RETRO SCROT L [...] MD 07/14/20 Edited Result - FINAL Normal [facility] US NON OB TRANSVAGINALon US NON [...] MD 07/14/20 Edited Result - FINAL Normal [facility] Chlamydia/GC,DNA Ampon 07-10 Chlamydia Probe Negative Normal NEG [facility] Comment on above: Result Comment: CHLA [...] Performed By: #### U HCG, UAMIC #### [employer] [address] [place], [place] [id number] Licensed Chemical Spray Technician: Campos Avilez MD Gonorrhea Probe Negative Normal NEG [facility] Comment on above: Result Comment: NEIS [...] Performed By: #### U HCG, UAMIC #### [facility] [facility] [address] [place] [id number] Licensed Chemical [employer] Technician: Campos Avilez MD Cult,Urineon 07-09-2020 Cult,Urine Specimen Description .CLEAN CATCH URINE Special Requests NOT REPORTED Culture ESCHERICHIA COLI >[id number] CFU/ML Report Status FINAL 07/09/2020 SUSCEPTIBILITY Organism [...] <=20 SUSCEPTIBLE Piperacillin/Tazobac her <=4 SUSCEPTIBLE Normal [facility] Comment on above: Performed By: #### U HCG, UAMIC #### [address] [address] Licensed [employer] Technician: Campos Avilez MD ABO/Rh(D)on 07-08-2020 ABO/Rh(D) Positive Normal [facility] Comment on above: Performed By: #### [facility] #### [place] [address] Licensed [employer] Technician: Campos Avilez MD CBC with Diffon 07-08-2020 Abs. Basophil 0.04 k/uL Normal 0.00-0.20 [facility] Comment on above: Performed By: #### C P, CDP, COSMO, BHCG, MG, VD25, LIP #### [facility] [employer] [address] [place] [id number] Licensed [employer] Technician: Campos Avilez MD Abs.Imm.Granulocyte 0.04 k/uL Normal 0.00-0.30 [facility] Comment on above: Performed By: #### C P, CDP, COSMO, BHCG, MG, VD25, LIP #### [facility] [address] [place] [address] Licensed Chemical Spr[employer] Technician: Campos Avilez MD Abs.Neutrophil (Seg) 8.16 k/uL High 1.80-8.00 [facility] Comment on above: Performed By: #### C P, CDP, COSMO, BHCG, MG, VD25, LIP #### [address] [address] Licensed Chemical Spr[employer] Technician: Campos Avilez MD Basophils/100 WBC (Bld) 0 % Normal 0-2 [facility] Comment on above: Performed By: #### C P, CDP, COSMO, BHCG, MG, VD25, LIP #### [place] [address] Licensed [employer] Spr[employer] Technician: Campos Avilez MD Eosinophils (Bld) [#/Vol] 0.10 10*3/uL Normal 0.00-0.44 [facility] Comment on above: Performed By: #### C P, CDP, COSMO, BHCG, MG, VD25, LIP #### [place] [address] Licensed [employer] Spr[employer] Technician: Campos Avilez MD Eosinophils/100 WBC (Bld) 1 % Normal 1-4 [facility] Comment on above: Performed By: #### C P, CDP, COSMO, BHCG, MG, VD25, LIP #### [place] [address] Licensed Chemical Spr[employer] Technician: Campos Avilez MD Erythrocyte distribution width (RBC) [Ratio] 14.0 % Normal 11.8-14.4 [facility] Comment on above: Performed By: #### C P, CDP, COSMO, BHCG, MG, VD25, LIP #### [place] [address] Licensed [employer] Spr[employer] Technician: Campos Avilez MD Hematocrit (Bld) [Volume fraction] 34.3 % Low 36.3-47.1 [facility] Comment on above: Performed By: #### C P, CDP, COSMO, BHCG, MG, VD25, LIP #### [address] [address] Licensed Chemical Spr[employer] Technician: Campos Avilez MD Hemoglobin (Bld) [Mass/Vol] 11.1 g/dL Low 11.9-15.1 [facility] Comment on above: Performed By: #### C P, CDP, COSMO, BHCG, MG, VD25, LIP #### [address] [address] Licensed Chemical Spr[employer] Technician: Campos Avilez MD Immature granulocytes (Bld) [#/Vol] 0 % Normal 0 [facility] Comment on above: Performed By: #### C P, CDP, COSMO, BHCG, MG, VD25, LIP #### [address] [address] Licensed Chemical Spr[employer] Technician: Campos Avilez MD Lymphocytes (Bld) [#/Vol] 1.77 10*3/uL Normal 1.20-5.20 [facility] Comment on above: Performed By: #### C P, CDP, COSMO, BHCG, MG, VD25, LIP #### [place] [address] Licensed Chemical Spr[employer] Technician: Campos Avilez MD Lymphocytes/100 WBC (Bld) 16 % Low 25-45 [facility] Comment on above: Performed By: #### C P, CDP, COSMO, BHCG, MG, VD25, LIP #### [address] [address] Licensed Chemical Spr[employer] Technician: Campos Avilez MD MCH (RBC) [Entitic mass] 26.6 pg Normal 25.0-35.0 [facility] [facility] Comment on above: Performed By: #### C P, CDP, COSMO, BHCG, MG, VD25, LIP #### [address] [address] Licensed Chemical Spray Technician: Campos Avilez MD MCHC (RBC) [Mass/Vol] 32.4 g/dL Normal 28.4-34.8 [facility] Comment on above: Performed By: #### C P, CDP, COSMO, BHCG, MG, VD25, LIP #### [address] [address] Licensed Chemical Spray Technician: Campos Avilez MD MCV (RBC) [Entitic vol] 82.3 fL Normal 78.0-102.0 [facility] Comment on above: Performed By: #### C P, CDP, COSMO, BHCG, MG, VD25, LIP #### [address] [address] Licensed Chemical Spray Technician: Campos Avilez MD Monocytes (Bld) [#/Vol] 0.73 10*3/uL Normal 0.10-1.40 [facility] Comment on above: Performed By: #### C P, CDP, COSMO, BHCG, MG, VD25, LIP #### [address] [address] Licensed Chemical Spray Technician: Campos Avilez MD Monocytes/100 WBC (Bld) 7 % Normal 2-8 [facility] Comment on above: Performed By: #### C P, CDP, COSMO, BHCG, MG, VD25, LIP #### [address] [address] Licensed Chemical Spray Technician: Campos Avilez MD Neutrophil (Seg) 75 % High 34-[address] [facility] Comment on above: Performed By: #### C P, CDP, COSMO, BHCG, MG, VD25, LIP #### [address] [address] Licensed Chemical Spray Technician: Campos Avilez MD NRBC Automated 0.0 per 100 WBC Normal 0.0 [facility] Comment on above: Performed By: #### C P, CDP, COSMO, BHCG, MG, VD25, LIP #### [address] [address] Licensed Chemical Spray Technician: Campos Avilez MD Platelet mean volume (Bld) [Entitic vol] 11.8 fL Normal 8.1-13.5 [facility] Comment on above: Performed By: #### C P, CDP, COSMO, BHCG, MG, VD25, LIP #### [address] [address] Licensed Chemical Spray Technician: Campos Avilez MD Platelets (Bld) [#/Vol] 288 10*3/uL Normal 138-453 [facility] Comment on above: Performed By: #### C P, CDP, COSMO, BHCG, MG, VD25, LIP #### [address] [address] Licensed Chemical Spray Technician: Campos Avilez MD RBC (Bld) [#/Vol] 4.17 10*6/uL Normal 3.95-5.11 [facility] Comment on above: Performed By: #### C P, CDP, COSMO, BHCG, MG, VD25, LIP #### [facility] [address] [place] [address] Licensed Chemical Spray Technician: Campos Avilez MD WBC (Bld) [#/Vol] 10.8 10*3/uL Normal 4.5-13.5 [facility] Comment on above: Performed By: #### C P, CDP, COSMO, BHCG, MG, VD25, LIP #### [address] [address] Licensed Chemical Spray Technician: Campos Avilez MD Auto Diff Performed NOT REPORTED Normal [facility] Comment on above: Performed By: #### C P, CDP, COSMO, BHCG, MG, VD25, LIP #### [facility] [address] [place] [address] Licensed Chemical Spray Technician: Campos Avilez MD Platelets (Bld) [#/Vol] NOT REPORTED Normal [facility] Comment on above: Performed By: #### C P, CDP, COSMO, BHCG, MG, VD25, LIP #### [address] [place] [address] Licensed Chemical Spray Technician: Campos Avilez MD RBC morphology finding Nom (Bld) NOT REPORTED Normal [facility] Comment on above: Performed By: #### C P, CDP, COSMO, BHCG, MG, VD25, LIP #### [address] [place] [address] Licensed Chemical Spray Technician: Campos Avilez MD WBC Morphology NOT REPORTED Normal [facility] Comment on above: Performed By: #### C P, CDP, COSMO, BHCG, MG, VD25, LIP #### [address] [address] Licensed Chemical Spray Technician: Campos Avilez MD Calcium, Ionicon 07-08-2020 Calcium [Mass/Vol] 1.18 mmol/L Normal 1.13-1.33 [facility] Comment on above: Performed By: #### I OCAL #### [address] [address] Licensed Chemical Spray Technician: Campos Avilez MD Calcium, Ionizedon Calcium [Mass/Vol] 1.18 mmol/L 1.13 - 1. 33 mmol/L [facility], [place] Comp Metabolic Profon 2020 (cont.) Normal [facility] Comment on above: Result Comment: Aver age GFR for <20 years old not available. Chronic Kidney Disease: <60 mL/min/1.73sq m Kidney failure: <15 mL/min/1.73sq m eGFR calculated using average adult body mass. Additional eGFR calculator available at: http://www.[employer]/multiple_crcl_2012.htm Performed By: #### C P, CDP, COSMO, BHCG, MG, VD25, LIP #### [address] [place] [address] Licensed Chemical Spray Technician: Campos Avilez MD Albumin [Mass/Vol] 2.3 g/dL Low 3.5-5.2 [facility] Comment on above: Performed By: #### C P, CDP, COSMO, BHCG, MG, VD25, LIP #### [address] [address] Licensed Chemical Spray Technician: Campos Avilez MD Albumin/Globulin [Mass ratio] 0.9 {ratio} Low 1.0-2.5 [facility] Comment on above: Performed By: #### C P, CDP, COSMO, BHCG, MG, VD25, LIP #### [address] [address] Licensed Chemical Spray Technician: Campos Avilez MD Alkaline Phos 41 U/L Normal 35-104 [facility] Comment on above: Result Comment: SPEC IMEN MODERATELY HEMOLYZED, RESULTS MAY BE ADVERSELY AFFECTED Performed By: #### C P, CDP, COSMO, BHCG, MG, VD25, LIP #### [address] [address] Licensed Chemical Spray Technician: Campos Avilez MD ALT [Catalytic activity/Vol] 11 U/L Normal 5-33 [facility] Comment on above: Result Comment: SPEC IMEN MODERATELY HEMOLYZED, RESULTS MAY BE ADVERSELY AFFECTED Performed By: #### C P, CDP, COSMO, BHCG, MG, VD25, LIP #### [address] [address] Licensed Chemical Spray Technician: Campos Avilez MD Anion gap [Moles/Vol] 9 mmol/L Normal 9-17 [facility] Comment on above: Performed By: #### C P, CDP, COSMO, BHCG, MG, VD25, LIP #### [address] [address] Licensed Chemical Spray Technician: Campos Avilez MD AST [Catalytic activity/Vol] 28 U/L Normal <32 [facility] Comment on above: Result Comment: SPEC IMEN MODERATELY HEMOLYZED, RESULTS MAY BE ADVERSELY AFFECTED Performed By: #### C P, CDP, COSMO, BHCG, MG, VD25, LIP #### [address] [address] Licensed Chemical Spray Technician: Campos Avilez MD Bilirubin Ql (U) <0.10 Low 0.3-1.[address] [facility] Comment on above: Performed By: #### C P, CDP, COSMO, BHCG, MG, VD25, LIP #### [address] [address] Licensed Chemical Spray Technician: Campos Avilez MD Calcium [Mass/Vol] 5.5 mg/dL Critically low 8.6-10.4 [facility] Comment on above: Performed By: #### C P, CDP, COSMO, BHCG, MG, VD25, LIP #### [address] [address] Licensed Chemical Spray Technician: Campos Avilez MD Chloride [Moles/Vol] 118 mmol/L High 98-107 [facility] Comment on above: Performed By: #### C P, CDP, COSMO, BHCG, MG, VD25, LIP #### [address] [address] Licensed Chemical Spray Technician: Campos Avilez MD CO2 [Moles/Vol] 14 mmol/L Low 20-31 [facility] Comment on above: Performed By: #### C P, CDP, COSMO, BHCG, MG, VD25, LIP #### [address] [address] Licensed Chemical Spray Technician: Campos Avilez MD Creatinine [Mass/Vol] 0.60 mg/dL Normal 0.50-0.90 [facility] Comment on above: Performed By: #### C P, CDP, COSMO, BHCG, MG, VD25, LIP #### [address] [address] Licensed Chemical Spray Technician: Campos Avilez MD GFR,non Amer Pediatric GFR requires additional information. Refer to NKDEP website for Normal >60 [facility] Comment on above: Result Comment: calc ulator. Performed By: #### C P, CDP, COSMO, BHCG, MG, VD25, LIP #### [address] [address] Licensed Chemical Spray Technician: Campos Avilez MD Glucose [Mass/Vol] 84 mg/dL Normal 70-99 [facility] Comment on above: Performed By: #### C P, CDP, COSMO, BHCG, MG, VD25, LIP #### [address] [address] Licensed Chemical Spray Technician: Campos Avilez MD Potassium [Moles/Vol] 5.1 mmol/L Normal 3.7-5.3 [facility] Comment on above: Result Comment: SPEC IMEN MODERATELY HEMOLYZED, RESULTS MAY BE ADVERSELY AFFECTED Performed By: #### C P, CDP, COSMO, BHCG, MG, VD25, LIP #### [address] [address] Licensed Chemical Spray Technician: Campos Avilez MD Protein [Mass/Vol] 5.0 g/dL Low 6.4-8.3 [facility] Comment on above: Performed By: #### C P, CDP, COSMO, BHCG, MG, VD25, LIP #### [facility] [address] [place] [address] Licensed Chemical Spray Technician: Campos Avilez MD Sodium [Moles/Vol] 141 mmol/L Normal 135-144 [facility] Comment on above: Performed By: #### C P, CDP, COSMO, BHCG, MG, VD25, LIP #### [address] [address] Licensed Chemical Spray Technician: Campos Avilez MD Urea nitrogen [Mass/Vol] 10 mg/dL Normal 6-20 [facility] Comment on above: Performed By: #### C P, CDP, COSMO, BHCG, MG, VD25, LIP #### [address] [place] [address] Licensed Chemical Spray Technician: Campos Avilez MD BUN/CRE Ratio NOT REPORTED Normal 9-20 [facility] Comment on above: Performed By: #### C P, CDP, COSMO, BHCG, MG, VD25, LIP #### [facility] [place] [address] Licensed Chemical Spray Technician: Campos Avilez MD GFR, Amer NOT REPORTED Normal >60 [facility] Comment on above: Performed By: #### C P, CDP, COSMO, BHCG, MG, VD25, LIP #### [address] [address] Licensed Chemical Spray Technician: Campos Avilez MD Staging: NOT REPORTED Normal [facility] Comment on above: Performed By: #### C P, CDP, COSMO, BHCG, MG, VD25, LIP #### [facility] [address] [place] [address] Licensed Chemical Spray Technician: Campos Avilez MD HCG, ,Urineon 07-08 Beta HCG ( test) Ql (U) Negative Normal NEG [facility] Comment on above: Result Comment: Spec [...] Performed By: #### U HCG, UAMIC #### [address] [address] Licensed Chemical Spray Technician: Campos Avilez MD HCG, Quanton 07-08-2020 HCG, Quant <1 Normal <5 [facility] Comment on above: Result Comment: Non-preg [...] CDP, COSMO, BHCG, MG, VD25, LIP #### [facility] [address] [facility] [address] [place] [address] Licensed Chemical Spray Technician: Campos Avilez MD Lipaseon 07-08-2020 Lipase [Catalytic activity/Vol] 15 U/L Normal 13-60 [facility] Comment on above: Performed By: #### C P, CDP, COSMO, BHCG, MG, VD25, LIP #### [facility] [address] [facility] [address] [place] [id number] Licensed Chemical Spray Technician: Campos Avilez MD Magnesiumon 07-08-2020 Magnesium [Mass/Vol] 1.2 mg/dL Low 1.7-2.2 [facility] Comment on above: Performed By: #### C P, CDP, COSMO, BHCG, MG, VD25, LIP #### [facility] [address] [facility] [address] [place] [address] Licensed Chemical Spray Technician: Campos Avilez MD Interpretation and review of laboratory results Abnormal [place] Magnesium [Mass/Vol] 1.2 mg/dL Low 1.7 - 2 .2 mg/dL [place] Otheron 07-08-2020 Direct Exam Negative [place], [place] , URINEon Beta HCG ( test) Ql (U) Negative NEGATIVE [place] Comment on above: Specimens with hCG [...] 2.6 mg/dL 2.5 - 4 .8 mg/dL [place] Phosphorus, Inorg.on 021 Phosphorus, Inorg. 2.6 mg/dL Normal 2.5-4.8 [facility] Comment on above: Performed By: #### U HCG, UAMIC #### [facility] [address] [place] [address] Licensed Chemical Spray Technician: Campos Avilez MD NON OB TRANSVAGINALon Elia, Mhpn Incoming Radiant Results From [facility] - 07/08/2020 12:31 AM EST EXAMINATION: PELVIC [...] No evidence of ovarian torsion is noted. [place], [place] Unremarkable pelvic ultrasound. No evidence of ovarian torsion is noted. [place] EXAMINATION: PELVIC ULTRASOUND 07/07/2020 TECHNIQUE: Transvaginal [...] Free Fluid: No evidence of free fluid. [facility] [place], [place] Urinalysis w/ Microon 2020 ----- Normal [facility] Comment on above: Performed By: #### U HCG, UAMIC #### [address] [address] Licensed Chemical Spray Technician: Campos Avilez MD Acetoacetic Acid,Ur Negative Normal NEG [facility] Comment on above: Performed By: #### U HCG, UAMIC #### [address] [address] Licensed Chemical Spray Technician: Campos Avilez MD Bacteria LM.HPF (Urine sed) [#/Area] MANY Abnormal NONE [facility] Comment on above: Performed By: #### U HCG, UAMIC #### [address] [address] Licensed Chemical Spray Technician: Campos Avilez MD Bilirubin, SemiQt,Ur Negative Normal NEG [facility] Comment on above: Performed By: #### U HCG, UAMIC #### [address] [address] Licensed Chemical Spray Technician: Campos Avilez MD Color (U) ORANGE Abnormal YEL [facility] Comment on above: Result Comment: INTE RPRET WITH CAUTION DUE TO INTENSE COLOR OF URINE. Performed By: #### U HCG, UAMIC #### [address] [address] Licensed Chemical Spray Technician: Campos Avilez MD Epithelial cells LM.HPF (Urine sed) [#/Area] 0 TO 2 Normal 0-5 [facility] Comment on above: Performed By: #### U HCG, UAMIC #### [address] [address] Licensed Chemical Spray Technician: Campos Avilez MD Glucose Ql (U) Negative Normal NEG [facility] Comment on above: Performed By: #### U HCG, UAMIC #### [address] [address] Licensed Chemical Spray Technician: Campos Avilez MD Hemoglobin, Ur LARGE Abnormal NEG [facility] Comment on above: Performed By: #### U HCG, UAMIC #### [address] [address] Licensed Chemical Spray Technician: Campos Avilez MD Leukocyte esterase Test strip Ql (U) MODERATE Abnormal NEG [facility] Comment on above: Performed By: #### U HCG, UAMIC #### [address] [address] Licensed Chemical Spray Technician: Campos Avilez MD Nitrite,Ur Positive Abnormal NEG [facility] Comment on above: Performed By: #### U HCG, UAMIC #### [address] [address] Licensed Chemical Spray Technician: Campos Avilez MD pH (U) 5.5 [pH] Normal 5.0-8.0 [facility] Comment on above: Performed By: #### U HCG, UAMIC #### [address] [address] Licensed Chemical Spray Technician: Campos Avilez MD Protein Ql (U) 2+ Abnormal NEG [facility] Comment on above: Performed By: #### U HCG, UAMIC #### [address] [address] Licensed Chemical Spray Technician: Campos Avilez MD RBC (U) [#/Vol] 50 TO 100 Normal 0-4 [facility] Comment on above: Result Comment: Refe rence range defined for non-centrifuged specimen. Performed By: #### U HCG, UAMIC #### [address] [address] Licensed Chemical Spray Technician: Campos Avilez MD Specific gravity (U) [Rel density] 1.021 Normal 1.005-1.030 [facility] Comment on above: Performed By: #### U HCG, UAMIC #### [address] [address] Licensed Chemical Spray Technician: Cmapos Avilez MD Turbidity TURBID Abnormal CLEAR [facility] Comment on above: Performed By: #### U HCG, UAMIC #### [address] [address] Licensed Chemical Spray Technician: Campos Avilez MD Urobilinogen,Ur Normal Normal NORM [facility] Comment on above: Performed By: #### U HCG, UAMIC #### [address] [address] Licensed Chemical Spray Technician: Campos Avilez MD WBC (U) [#/Vol] TOO NUMEROUS TO COUNT Normal 0-5 [facility] Comment on above: Performed By: #### U HCG, UAMIC #### [address] [address] Licensed Chemical Spray Technician: Campos Avilez MD Amorphous sediment LM Ql (Urine sed) NOT REPORTED Normal [facility] Comment on above: Performed By: #### U HCG, UAMIC #### [address] [address] Licensed Chemical Spray Technician: Campos Avilez MD Casts LM.LPF (Urine sed) [#/Area] NOT REPORTED Normal 0-8 [facility] Comment on above: Performed By: #### U HCG, UAMIC #### [address] [address] Licensed Chemical Spray Technician: Campos Avilez MD Crystals LM Nom (Urine sed) NOT REPORTED Normal NONE [facility] Comment on above: Performed By: #### U HCG, UAMIC #### [address] [address] Licensed Chemical Spray Technician: Campos Avilez MD Epithelial, Renal NOT REPORTED Normal 0 [facility] Comment on above: Performed By: #### U HCG, UAMIC #### [facility] [address] [place] [address] Licensed Chemical Spray Technician: Campos Avilze MD Mucus Strands NOT REPORTED Normal NONE [facility] Comment on above: Performed By: #### U HCG, UAMIC #### [address] [address] Licensed Chemical Spray Technician: Campos Avilez MD Other Observations NOT REPORTED Normal NREQ [facility] Comment on above: Performed By: #### U HCG, UAMIC #### [address] [address] Licensed Chemical Spray Technician: Campos Avilez MD Trichomonas NOT REPORTED Normal [facility] Comment on above: Performed By: #### U HCG, UAMIC #### [address] [address] Licensed Chemical Spray Technician: Campos Avilez MD Yeast LM Ql (Urine sed) NOT REPORTED Normal [facility] Comment on above: Performed By: #### U HCG, UAMIC #### [address] [address] Licensed Chemical Spray Technician: Campos Avilez MD Urinalysis with microscopico n 07-08-2020 Amorphous, UA NOT REPORTED None [facility] [place], [place] Bacteria, UA MANY Abnormal None [facility], [place] Bilirubin Urine Negative NEGATIVE [facility] [place] Casts UA NOT REPORTED [facility], [place] Color, UA ORANGE Abnormal YELLOW [place] Comment on above: INTERPRET WITH CAUTI ON DUE TO INTENSE COLOR OF URINE. Crystals, UA NOT REPORTED None /HPF [facility] [place] Epithelial Cells UA 0 TO 2 [place] Glucose, Ur Negative NEGATIVE [place] Interpretation and review of laboratory results Abnormal [place] Ketones Ql (U) Negative NEGATIVE [place] Leukocyte esterase Test strip Ql (U) MODERATE Abnormal NEGATIVE [place] Mucus, UA NOT REPORTED None [place] Nitrite, Urine Positive Abnormal NEGATIVE [place] Other Observations UA NOT REPORTED NOT REQ. [place] pH, UA 5.5 [place] Protein (U) [Mass/Vol] 2+ Abnormal NEGATIVE [place], [place] RBC (U) [#/Vol] 50 TO 100 [place], [place] Comment on above: Reference range defi sonia for non-centrifuged specimen. Renal Epithelial, UA NOT REPORTED 0 /HPF [place] Specific [place], UA 1.021 [place] Trichomonas, UA NOT REPORTED None [place] Turbidity UA TURBID Abnormal CLEAR [place] Urine Hgb LARGE Abnormal NEGATIVE [place] Urobilinogen, Urine Normal Normal [place] WBC, UA TOO NUMEROUS TO COUNT [place] Yeast, UA NOT REPORTED None [place] VAGINITIS DNA PROBEon 2020 Direct Exam Positive Abnormal [place] Direct Exam Method of testing is a DNA probe intended for detection and identification of Samantha species, Gardnerella vaginalis, and Trichomonas vaginalis nucleic acid in vaginal fluid specimens from patients with symptoms of vaginitis/vaginosis. [place] Interpretation and review of laboratory results Abnormal [place] Special Requests NOT REPORTED [place] Specimen Description .VAGINA [place] Vaginitis DNA Probeon 2020 Vaginitis DNA [...] of vaginitis/vaginosis. Report Status FINAL 07/08/2020 Normal [facility] Comment on above: Performed By: #### U HCG, UAMIC #### [facility] [address] [place] [address] Licensed Chemical Spray Technician: Campos Avilez MD Vitamin D 25 Hydroxyon 07-08 Interpretation and review of laboratory results Abnormal [place], [place] Vit D, 25-Hydroxy 12.1 ng/mL Low 30 - 100 ng/mL [place] Comment on above: Reference Range: Vitamin D status Range Deficiency <20 ng/mL Mild Deficiency 20-30 ng/mL Sufficiency 30-100 ng/mL Toxicity >100 ng/mL Vitamin D 25 OHon 07-08-2020 Vitamin D 25 OH 12.1 ng/mL Low 30.0-100.0 [facility] Comment on above: Result Comment: Reference Range: Vitamin D status Range Deficiency <20 ng/mL Mild Deficiency 20-30 ng/mL Sufficiency 30-100 ng/mL Toxicity >100 ng/mL Performed By: #### U HCG, UAMIC #### [facility] [address] [place] [id number] Licensed Chemical Spray Technician: Campos Avilez MD ABO/RHon 07-07-2020 ABO/Rh Positive [place] CBC WITH AUTO DIFFERENTIALon 07-07-2020 Basophils (Bld) [#/Vol] 0.04 10*3/uL [place] Basophils/100 WBC (Bld) 0 % 0 - 2 % [place] Differential Type NOT REPORTED [place] Eosinophils (Bld) [#/Vol] 0.10 10*3/uL [place] Eosinophils/100 WBC (Bld) 1 % 1 - 4 % [place] Erythrocyte distribution width (RBC) [Ratio] 14.0 % 11.8 - 14.4 % [place] Hematocrit (Bld) [Volume fraction] 34.3 % Low 36.3 - 47.1 % [place] Hemoglobin (Bld) [Mass/Vol] 11.1 g/dL Low 11.9 - 15.1 g/dL [place] Immature granulocytes (Bld) [#/Vol] 0 % 0 [place] Immature granulocytes (Bld) [#/Vol] 0.04 10*3/uL [place] Interpretation and review of laboratory results Abnormal [place] Lymphocytes (Bld) [#/Vol] 1.77 10*3/uL [place] Lymphocytes/100 WBC (Bld) 16 % Low 25 - 45 % [place] MCH (RBC) [Entitic mass] 26.6 pg 25 - 35 pg [place] MCHC (RBC) [Mass/Vol] 32.4 g/dL 28.4 - 34.8 g/dL [place] MCV (RBC) [Entitic vol] 82.3 fL 78 - 102 fL [place] Monocytes (Bld) [#/Vol] 0.73 10*3/uL [place] Monocytes/100 WBC (Bld) 7 % 2 - 8 % [place] Platelet mean volume (Bld) [Entitic vol] 11.8 fL 8.1 - 13.5 fL [place] Platelets (Bld) [#/Vol] NOT REPORTED [place] Platelets (Bld) [#/Vol] 288 10*3/uL [place] RBC (Bld) [#/Vol] 4.17 10*6/uL 3.95 - 5.1 1 m/uL [place] RBC morphology finding Nom (Bld) NOT REPORTED [place] Segmented neutrophils/100 WBC (Bld) 75 % High 34 - 64 % [place] Segs Absolute 8.16 High [place] WBC (Bld) [#/Vol] 0.0 10*3/uL 0.0 per 10 0 WBC [place] WBC (Bld) [#/Vol] 10.8 10*3/uL [place] WBC Morphology NOT REPORTED [place] COMPREHENSIVE METABOLIC PANE Mikie 07-07-2020 Albumin [Mass/Vol] 2.3 g/dL Low 3.5 - 5.2 g/dL [place] Albumin/Globulin [Mass ratio] 0.9 {ratio} Low [place] ALP [Catalytic activity/Vol] 41 U/L 35 - 104 U/L [place] Comment on above: SPECIMEN MODERATELY HEMOLYZED, RESULTS MAY BE ADVERSELY AFFECTED ALT [Catalytic activity/Vol] 11 U/L 5 - 33 U/L [place] Comment on above: SPECIMEN MODERATELY HEMOLYZED, RESULTS MAY BE ADVERSELY AFFECTED Anion gap [Moles/Vol] 9 mmol/L 9 - 17 mmol/L [place] AST [Catalytic activity/Vol] 28 U/L <32 [place] Comment on above: SPECIMEN MODERATELY HEMOLYZED, RESULTS MAY BE ADVERSELY AFFECTED Bilirubin Ql (U) <0.10 Low 0.3 - 1.2 mg/dL [place] Bun/Cre Ratio NOT REPORTED [place] Calcium [Mass/Vol] 5.5 mg/dL Critically low 8.6 - 1 0.4 mg/dL [place] Chloride [Moles/Vol] 118 mmol/L High 98 - 10 7 mmol/L [place] CO2 [Moles/Vol] 14 mmol/L Low 20 - 31 mmol/L [place] Creatinine [Mass/Vol] 0.6 mg/dL 0.5 - 0.9 mg/dL [place] GFR NOT REPORTED >60 mL/min [place] GFR Non- Pediatric GFR requires additional information. Refer to NKDEP website for calculator. >60 mL/min [place] GFR/1.73 sq M predicted among non-blacks MDRD (S/P/Bld) [Vol rate/Area] NOT REPORTED [place] GFR/1.73 sq M predicted among non-blacks MDRD (S/P/Bld) [Vol rate/Area] [place] Comment on above: Average GFR for <20 years old not available. Chronic Kidney Disease: <60 mL/min/1.73sq m Kidney failure: <15 mL/min/1.73sq m eGFR calculated using average adult body mass. Additional eGFR calculator available at: http://www.[employer]/multiple_crcl_2012.htm Glucose [Mass/Vol] 84 mg/dL 70 - 99 mg/dL [place] Interpretation and review of laboratory results Abnormal [place] Potassium [Moles/Vol] 5.1 mmol/L 3.7 - 5.3 mmol/L [place] Comment on above: SPECIMEN MODERATELY HEMOLYZED, RESULTS MAY BE ADVERSELY AFFECTED Protein [Mass/Vol] 5.0 g/dL Low 6.4 - 8.3 g/dL [place] Sodium [Moles/Vol] 141 mmol/L 135 - 144 mmol/L [place] Urea nitrogen [Mass/Vol] 10 mg/dL 6 - 20 mg/dL [place] HCG, QUANTITATIVE, on 07-07-2020 hCG Quant <1 <5 IU/L [place] Comment on above: Non-preg premeno <=5 [...] activity/Vol] 15 U/L 13 - 60 U/L [place] Vital Signs Date Time Vital Sign Value Performing Clinician Facility 10-26-2023 03:30-0400 Hourly Rounding [facility] [facility] Comment on above: Result Comment: pt discharged off unit 10-26-2023 03:15-0400 Hourly Rounding Fuentes Florentino [facility] Comment on above: Result Comment: went over discharge inst ructions. educated pt on importance of contacting primary provider with future concerns, pisking up antibiotic prescription tomorrow, and calling is symtpoms return or get worse. 10-26-2023 00:00-0400 Blood Pressure Location Fuentes Florentino [facility] 10-26-2023 00:00-0400 Body temperature 98.6 [degF] Fuentes Florentino [facility] 10-26-2023 00:00-0400 Diastolic blood pressure 68 mm[Hg] Fuentes Florentino [facility] 10-26-2023 00:00-0400 Heart rate 101 /min Fuentes Florentino [facility] 10-26-2023 00:00-0400 Hourly Rounding Fuentes Florentino [facility] 10-26-2023 00:00-0400 Mean blood pressure 86 mm[Hg] Fuentes Florentino [facility] 10-26-2023 00:00-0400 Respiratory rate 16 /min Fuentes Florentino [facility] 10-26-2023 00:00-0400 Systolic blood pressure 122 mm[Hg] Fuentes Florentino [facility] 07-17-2023 11:42-0500 Body weight 127.82 kg Chung Benja DO Work Phone: [facility] 07-17-2023 11:42-0500 Diastolic blood pressure 70 mm[Hg] Chung Benja DO Work Phone: [facility] 07-17-2023 11:42-0500 Systolic blood pressure 118 mm[Hg] Chung Benja DO Work Phone: [facility] 10-19-2021 01:12-0400 Diastolic blood pressure 62 mm[Hg] PHYSICIAN [facility] 10-19-2021 01:12-0400 Heart rate 89 /min PHYSICIAN [facility] 10-19-2021 01:12-0400 Respiratory rate 18 /min PHYSICIAN [facility] 10-19-2021 01:12-0400 SaO2% (BldA) [Mass fraction] 100 % PHYSICIAN [facility] 10-19-2021 01:12-0400 Systolic blood pressure 130 mm[Hg] PHYSICIAN [facility] 10-18-2021 23:10-0400 Body height 167.64 cm PHYSICIAN [facility] 10-18-2021 23:10-0400 Body mass index (BMI) [Percentile] Per age and sex 99.1 % PHYSICIAN [facility] 10-18-2021 23:10-0400 Body mass index (BMI) [Ratio] 48.2 kg/m2 PHYSICIAN [facility] 10-18-2021 23:10-0400 Body weight 135.5 kg PHYSICIAN [facility] 10-18-2021 23:08-0400 Body temperature 98.4 [degF] PHYSICIAN [facility] 07-07-2020 21:51-0500 BMI (Body Mass Index) 42.93 kg/m2 [facility] [place], [place] 07-07-2020 21:51-0500 Body weight 120.66 kg [facility] [place] 07-07-2020 21:51-0500 BP Diastolic 85 mm[Hg] [place] 07-07-2020 21:51-0500 BP Systolic 136 mm[Hg] [place] 07-07-2020 21:51-0500 Height 167.6 cm [place] 07-07-2020 21:51-0500 Pulse (Heart Rate) 93 /min [place], [place] 07-07-2020 21:51-0500 Pulse Oximetry 97 % [place] 07-07-2020 21:51-0500 Respiratory Rate 18 /min [facility] [place] [place] 07-07-2020 21:48-0500 Body Temperature 97.11 [degF] [facility] [place] Encounters Encounter Date Encounter Type Care Provider Facility Start: 12-17-2023 End: 12-17-2023 ambulatory HALIMA SUBHASH Not Available Start: 12-03-2023 End: 12-03-2023 ambulatory CHUNG BENJA Not Available Start: 11-19-2023 End: 11-19-2023 ambulatory CHUNG BENJA Not Available Start: 11-04-2023 End: 11-04-2023 ambulatory HALIMA SUBHASH Not Available Start: 10-26-2023 End: 10-26-2023 ambulatory Fuentes Florentino Facility:[facility] Start: 10-25-2023 End: 10-26-2023 OB Triage Fuentse Florentino [facility] Start: 10-07-2023 End: 10-07-2023 ambulatory CHUNG [...] Start: 04-01-2022 End: 04-02-[address] DELON MARKER . Facility: Start: 10-19-2021 End: 10-19-2021 Emergency department patient visit PHYSICIAN NO FAMILY Facility:[facility] Start: 10-18-2021 End: 10-19-2021 Emergency department patient visit PHYSICIAN NO FAMILY [facility] Start: 07-07-2020 End: 07-08-2020 Emergency department patient visit DAVID AQUINO [facility] Start: 07-07-2020 End: 07-08-2020 Emergency department patient visit Lisa Land Work Phone: [facility] ED Comment on above: BV [...] Phone: Start: 07-07-2020 Assay of lipase Angelin molly Stoner Work Phone: Start: 07-07-2020 Assay [...] procedure 08/14/2023 11:20 AM EDT Routine [facility] [address] [place] [address] Halima Cullen PA [address] [place] [place] [address] [facility] Start: 07-17-2023 End: 07-17-2024 US for US OB VIABLILITY Imaging Routine with uncertain viability, single or unspecified fetus Expected: 07/17/2023 (Approximate), Expires: 07/17/2024 [facility] Work Phone: Comment on above: Expected: 07/17/2023 (Approximate), Expires: 07/17/2024 Start: 07-17-2023 End: 07-17-2023 Patient encounter procedure [facility] OB Comment on above: First trimester preg yesika Start: 07-03-2023 End: 07-03-2024 ABO/Rh ABO/Rh Lab Routine Missed menses Expected: 07/03/2023 (Approximate), Expires: 07/03/2024 [facility] Healthcare Comment on above: Expected: 07/03/2023 (Approximate), Expires: 07/03/2024 Start: 07-03-2023 End: 07-03-2024 Blood type and Indirect antibody screen panel - Blood Type and screen Lab Routine Missed menses Expected: 07/03/2023 (Approximate), Expires: 07/03/2024 [facility] Healthcare Work Phone: Comment on above: Expected: 07/03/2023 (Approximate), Expires: 07/03/2024 Start: 07-03-2023 End: 07-03-2024 US Pelvis transvaginal US OB transvaginal Imaging Routine Missed menses Expected: 07/03/2023 (Approximate), Expires: 07/03/2024 [facility] Healthcare Comment on above: Expected: 07/03/2023 (Approximate), Expires: 07/03/2024 Start: 02-01-2020 Influenza vaccination Flu vaccine (# 1) [place], [place] Start: 2018 Meningococcal (ACWY) vaccine (1 - 2-dose series) Meningococcal (ACWY) vaccine (1 - 2-dose series) [place] Start: 2018 Screening for Chlamy nancy trachomatis Chlamydia screen [place] Start: 2017 HIV screening HIV screen [place], [place] Start: 2013 HPV vaccine (1 - 2-d ose series) HPV vaccine (1 - 2-dose series) [place] Start: 2009 DTaP/Tdap/Td vaccine (1 - Tdap) DTaP/Tdap/Td vaccine (1 - Tdap) [place] Start: 2003 Hepatitis A vaccine (1 of 2 - 2-dose series) Hepatitis A vaccine (1 of 2 - 2-dose series) [place] Start: 2003 Measles,Mumps,Rubell a (MMR) vaccine (1 of 2 - Standard series) Measles,Mumps,Rubella (MMR) vaccine (1 of 2 - Standard series) [place] Start: 2003 Varicella vaccine (1 of 2 - 2-dose childhood series) Varicella vaccine (1 of 2 - 2-dose childhood series) [place] Start: 2002 Hepatitis B vaccine (1 of 3 - 3-dose primary series) Hepatitis B vaccine (1 of 3 - 3-dose primary series) [place] Start: 2002 Hepatitis C screening Hepatitis C sc reen [place] Bacteria identified in Urine by Culture Urine culture Microbiology Routine Missed menses Ordered: 07/03/2023 [facility] Comment on above: Ordered: 07/03/2023 End: 07-07-2020 C.trachomatis N.gonorrhoeae DNA C.trachomatis N.gonorrhoeae DNA Microbiology STAT One Time for 1 Occurrences starting 07/07/2020 until 07/07/2020 [place] Comment on above: One Time for 1 Occur rences starting 07/07/2020 until 07/07/2020 C.trachomatis N.gonorrhoeae DNA C.trachomatis N.gonorrhoeae DNA Microbiology Stat [employer] Label print 07/07/2020 11:20 PM [place] End: 07-08-2020 Calcium, Ionized Calcium, Ionized Lab STAT One Time for 1 Occurrences starting 07/08/2020 until 07/08/2020 [place] Comment on above: One Time for 1 Occur rences starting 07/08/2020 until 07/08/2020 CBC W Auto Different ial panel - Blood CBC and differential Lab Routine Missed menses Ordered: 07/03/2023 [facility] Comment on above: Ordered: 07/03/2023 End: 07-07-2020 Culture, Urine Culture, Urine Microbiology STAT One Time for 1 Occurrences starting 07/07/2020 until 07/07/2020 [place] Comment on above: One Time for 1 Occur rences starting 07/07/2020 until 07/07/2020 Culture, Urine Culture, Urine Microbiology Stat [employer] Label print 07/07/2020 10:56 PM [place] Hemoglobin A1c measurement Hemoglobin A1c Lab Routine Missed menses Ordered: 07/03/2023 [facility] Comment on above: Ordered: 07/03/2023 Hepatitis B virus surface Ag [Presence] in Serum or Plasma by Immunoassay Hepatitis B surface antigen Lab Routine Missed menses Ordered: 07/03/2023 [facility] Comment on above: Ordered: 07/03/2023 Hepatitis C virus Ab [Presence] in Serum or Plasma by Immunoassay Hepatitis C antibody Lab Routine Missed menses Ordered: 07/03/2023 [facility] Comment on above: Ordered: 07/03/2023 HIV-1/HIV-2 antigen/antibody combination immunoassay HIV-1 and HIV-2 antibodies Lab Routine Missed menses Ordered: 07/03/2023 [facility] Comment on above: Ordered: 07/03/2023 Patient Education Common Breast Problems Pelvic Pain ED [facility] Work Phone: Patient referral [facility] Work Phone: Reagin Ab [Presence] in Serum by RPR RPR Lab Routine Missed menses Ordered: 07/03/2023 [facility] Comment on above: Ordered: 07/03/2023 Rubella antibody, IgG Rubella an tibody, IgG Lab Routine Missed menses Ordered: 07/03/2023 [facility] Comment on above: Ordered: 07/03/2023 End: 07-07-2020 US DUP ABD PEL RETRO SCROT LIMITED US DUP ABD PEL RETRO SCROT LIMITED Imaging STAT Once for 1 Occurrences starting 07/07/2020 until 07/07/2020 [place] Comment on above: Once for 1 Occurrenc es starting 07/07/2020 until 07/07/2020 US DUP ABD PEL RETRO SCROT LIMITED US DUP ABD PEL RETRO SCROT LIMITED Imaging STAT 07/08/2020 12:13 AM EST [place] Payers Date Payer Category Payer Unknown BCBS BCBS [id number] 2023-Present [phone] [address] [place] [address] [id number] 2023 Unknown [id number] 2021 Self-pay [id number] 2002 Unknown [id number] 2002 Unknown [id number] 2002 Unknown [id number] 2002 Unknown [id number] [id number] 2002 Unknown [id number] [id number] 2002 Unknown [id number] [id number] 2002 Unknown [id number] [id number] 2002 Unknown [id number] [id number] 2002 Unknown [id number] [id number] 2002 Unknown [id number] [id number] 2002 Unknown [id number] [id number] 2002 Unknown [id number] [id number] 2002 Unknown [id number] [id number] 2002 Unknown [id number] [id number] 1957 Medicaid [id number] 1957 Unknown [id number] Unknown [id number] Social History Date Type Detail Facility Start: 07-07-2020 End: 07-16-2023 Tobacco smoking status NHIS Never smoker [facility] Healthcare Start: 07-07-2020 Tobacco use and exposure Never used [place], [place] Start: 2002 Sex Assigned At Not on file [place] Exposure to SARS-CoV-2 (event) Not sure [place] Start: 10-19-2021 Tobacco smoking status NHIS Smoker (finding) [facility] Start: 2002 Sex Assigned At Female F [facility] Tobacco smoking status MTIS Tobacco smoking consumption unknown [facility] Healthcare Start: 05-22-2023 [facility] Start: 07-16-2023 Gender identity Not on file [facility] Start: 07-16-2023 End: 07-17-2023 Alcohol intake Lifetime non-drinker (finding) [facility] Healthcare Start: 07-16-2023 History of Social function [facility] Tobacco smoking status No Smoking Status Entered [facility] Functional Status Date Assessment Result Facility 10-26-2023 Functional Status N/A [facility] Clinical Notes 07-03-2023 to 10-26-2023 Chung Yousif DO - 07/17/2023 11:10 AM Costa Kilgore LPN - 07/03/2023 1:00 PM EST Note Date & Type Note Facility 10-26-2023 Note The following Patien t Education Materials have been given to the patient: EducationMaterial [facility] 10-26-2023 Hospital Discharg e instructions Patient [...] provider. Document Revised: 01/02/2022 Document Reviewed: 01/02/2022 [employer] Patient Education 2022 [employer] 10/26/2023 03:10:04 Vaginal Bleeding During , Second [...] help with your regular activities. Medicines Take yfsl-lis-ijnnhxk and prescription medicines only as told by [...] provider. Document Revised: 02/08/2021 Document Reviewed: 02/08/2021 [employer] Patient Education 2022 [employer] 10/26/2023 03:10:04 Back Pain in Back Pain [...] Standing, sitting, and lying down Do not coagulating bath mixer one place for long periods of time. [...] your back during . General instructions Take aztd-xou-rkkoazi and prescription medicines only as told by [...] care provider for managing back pain. Take osxi-iwn-opeswpu and prescription medicines only as told by [...] provider. Document Revised: 08/01/2021 Document Reviewed: 08/01/2021 [employer] Patient Education 2022 [employer] Follow Up Care 10/25/2023 23:39:34 With:Chung YOUSIF Address: [address] , [place] [address]- Business (1) When:11/04/2023 [facility] 10-25-2023 Evaluation + Plan note Diagnostic Tests PendingUrine Culture 10/25/23 [facility] 07-17-2023 History of Presen t illness Narrative Reason for Appointment: Patient ID: Teodoro Upton is a 23 y.o. female who presents for Routine Visit Patient presents today for Return OB appointment. Current Medications: has a current medication list which includes the following prescription(s): xjcpieuu-vzf-ju-fa and promethazine. Medical History: Active Ambulatory Problems Diagnosis Date Noted No Active Ambulatory Problems Resolved Ambulatory Problems Diagnosis Date Noted No Resolved Ambulatory Problems Past Medical History: Diagnosis Date ADD (attention deficit disorder) Asthma ([facility]) Family History Problem Relation Name [...] Chung Yousif DO documented in this encounter [facility] 07-03-2023 History of Presen t illness Narrative [...] Problems Past Medical History: Diagnosis Date Asthma ([facility]) No family history on file. Social History [...] Evaluation note No assessment inform ation available [facility] [employer] Work Phone: Evaluation note Diagnosis Missed menses Nausea and vomiting, unspecified vomiting type documented [facility] this encounter [facility] Diagnosis First trimester state, incidental Vaginal bleeding in Threatened miscarriage Threatened , unspecified as to episode of care with uncertain viability, single or unspecified fetus documented in this encounter [facility] Narrative No data available for this section [facility] Additional Instructions Please follow up as we discussed so you can have your concerns further evaluated.[facility] [employer] Work Phone: Progress note No data available for this section [facility] Discharge Instructions * Instructions* Brenda Stoner DO - 07/08/2020 [facility] ED Clinic List Healthcare Providers Services Day of Week/ Hours [facility] Services [address] Pediatric Primary Care Adult Primary Care [employer]STRU[employer] SUPERINTENDENT//Specialty Clinics Friday 8:00a 4:30p [address] Adult Medicine, Pediatrics, [employer] SU[employer]INTENDENT Friday 8:30a 4:30p [facility] Surgery [address] [facility] Friday 8:30a 11:00a [address] Adult Internal Medicine ([facility]) [employer] SUPERINTENDENT Clinic Pediatric Clinic Friday, Friday, , Friday 8:00a 4:30p Friday 1:00p 4:30p Friday, Friday, 8:00a 5:00p; Friday 8:00a 12:30p Friday 1p 4p Friday, Friday, , Friday 8:30a 4:15p Friday 12:30p 4:15p [facility] Department [place] [id number] [facility] Pediatric Primary Care Adult Primary Care OB/ Friday, Friday 8a 12p 8a 4:45p [facility] [address] [place] [address] [place] [address] # Pre & Post Adoption Counseling Support / nutrition Care Reward Incentive Program [facility] Fri, , Fri, Fri 10:00a 4:30p Thur 10:00a 7:30p E Gomez Location Friday - Friday 10a 4:30p [facility] [employer]STRUCTION SUPERINTENDENT [address] Adult Internal Medicine [address] [facility] Pediatrics [address] [facility], [address] Neuro / Headache [address] Friday 8:30a 5p [facility] Practice [address] [facility] Fri, , , Fri 9:00a 4:30p Wed 1:00p 4:30p [facility] Practice [address] [facility] [address] Family [facility] Friday 8:30a 5:00p [facility] Specialty Clinics [address] [facility] [address] Burn/Plastic, ENT, GI, Orthopedics, Surgical / Trauma, Urology, Vascular Friday 8:00 4:30p Call for an appointment [facility] [address] [facility] Adult Medicine, Eye Clinic, Dental Patient must be certified homeless Under age 18 not accepted Friday 8:00 4:30p [facility] [address] [facility] Practice OB Friday, Friday, Friday, Friday 9a 5p 9a 6p Friday (OB only) [facility] [address] [facility] OB/ Friday 11a 7p , Fri, 9a 5p Friday 8a 4p 1st Friday 9a 1p Podiatry Clinic [address] [facility] [address] Friday 8:00 4:[address] Free nurse visits [facility] programs Counseling Class Call or walk in [facility] [address] [place] Various Clinics 8a 5:30p [facility] Family Medicine [facility] [address] [facility], [address] Family Practice Friday 8a 4:30p [facility] [address] [place] [address] [id number] [facility] [place], [place] [id number] Friday 8a 4:30p Friday 8a 4:30p 8a 8p Outpatient Clinics [facility] [address] [facility] Friday 9a 5p Diabetic Education Services Call for an appointment [facility] Heart Failure Clinic [address] [facility] Friday 8:30a 4p Dental Services [facility] [address] [facility] Must have source of income and must bring (2) recent check stubs to appointment By appointment only [facility] [address] Patient must be homeless, call for eligibility guidelines. Under age 18 NOT accepted Days and hours vary (Doors open at 8:30a day of week varies) Call for an appointment Miscellaneous Information [facility] Call for Help [phone] Call for an appointment H.E.L.P (Hospital Eligibility Link Program) toll free For financial assistance * Attachments The following attachments cannot be sent through Care Everywhere. * Bacterial Vaginosis (Bermudian) * UTI (Urinary Tract Infection): Female (Bermudian) * Vitamin D: General Info (Bermudian) documented in this encounter Assessments Diagnosis BV [...] section and content) DATE CREATED AUTHOR 07/16/2020 [facility] DATE CREATED AUTHOR AUTHOR'S ORGANIZ ATION 09/07/2022 [facility] DATE CREATED AUTHOR AUTHOR'S ORGANIZ ATION 03/13/2023 [facility] DATE CREATED AUTHOR AUTHOR'S ORGANIZ ATION 10/27/2023 [facility] DATE CREATED AUTHOR AUTHOR'S ORGANIZ ATION 10/31/2023 [facility] DATE CREATED AUTHOR AUTHOR'S ORGANIZ ATION 12/21/2023 [facility] dicdc Specialists EPIC Care Teams (unrecognized sec tion [...] BE BASED ON THE PRIMARY CLINICAL RECORDS. [employer] provides no warranty or guarantee of the accuracy or completeness of information in this document.
[2023-12-29 23:06] VITALS: BP 115/55; PULSE 95; TEMP 36.6
[2023-12-29 23:33] LABS: Bilirubin Urine NEGATIVE (NEGATIVE); Blood Urine NEGATIVE (NEGATIVE); Clarity Urine CLEAR (CLEAR); Color Urine YELLOW (YELLOW); Glucose Urine UA NEGATIVE (NEGATIVE); Ketones Urine NEGATIVE (NEGATIVE); Leukocyte Esterase Urine SMALL (NEGATIVE); Nitrite Urine POSITIVE (NEGATIVE); Protein Urine TRACE mg/dL (NEG/TRACE); Specific Gravity Urine >=1.030 (1.005-1.025); Urobilinogen Urine 0.2 EU/dL (0.2-1.0); pH Urine 5.5 (5.0-9.0)
[2023-12-29 23:34] LABS: Urine Microscopic Indicated YES
[2023-12-29 23:41] LABS: Bacteria Urine LARGE #/HPF (NONE SEEN); RBC Urine NONE SEEN #/HPF (0-2); WBC Urine 20-50 #/HPF (NONE SEEN)
[2023-12-29 23:42] LABS: Amorphous Sediment Urine FEW; Calcium Oxalate Crystals Urine MODERATE; Cast Seen? NONE SEEN #/LPF (NONE SEEN); Crystals Seen? Seen #/HPF (None Seen); Mucus Urine SMALL (NONE SEEN); Squamous Epithelial Cell Urine MANY #/LPF (NONE/RARE); Urine Culture Indicated YES
[2023-12-30] MEDS: 0.9 % SODIUM CHLORIDE 1,000 ML 125 ML IV ×2 (00:40→06:09)
[2023-12-30] MEDS: CEFAZOLIN SODIUM/DEXTROSE,ISO 1 GM/50 ML IV.SOLN IV ×2 (00:43→06:08)
[2023-12-30 01:43] VITALS: TEMP 37.1
[2023-12-30 02:09] VITALS: BP 98/51; PULSE 80
--- NOTE | 2023-12-30 08:00 | US_ITS ---
[address] [address] Patient Name: TEODORO HERNANDES MRN: [id number] date: 2000 Sex: F Assigned Patient Location: [facility] Current Patient Location: Accession/Order Number: [id number] Exam Date: 12/30/2023 08:10 Report Date: 12/30/2023 08:56 At the request of: BHUMIKA FITZGERALD Procedure: US renal BI EXAMINATION: US renal BI HISTORY: flank pain/ possible stones COMPARISON: No relevant comparison available. TECHNIQUE: Ultrasound examination was performed of the bladder. FINDINGS: Right Kidney: Normal in size, contour and echotexture. No solid cortical mass, hydronephrosis or obstructing nephrolithiasis. The cortex measures 1.1 cm. Height: 4.76 cm Length: 12.28 cm Width: 5.65 cm Left Kidney: Normal in size, contour and echotexture. No solid cortical mass, hydronephrosis or obstructing nephrolithiasis. The cortex measures 0.9 cm Height: 6.40 cm Length: 12.91 cm Width: 5.10 cm Urinary bladder is normal in appearance. Volume 356 mL Ureteral jets: Visualized bilaterally US/US renal BI IMPRESSION: Normal exam Electronically authenticated by: LISETTE JIMENEZ Date: 12/30/2023 08:56
[2023-12-30 08:10] VITALS: TEMP 36.6
[2023-12-30 08:11] VITALS: BP 93/53; PULSE 80
== END 2023-12-30 10:50 | disposition home or self-care (01) ==
PROVIDERS: Admitting Provider Obstetrics & Gynecology; Visit Provider Obstetrics & Gynecology
DX: O26.893 Other specified pregnancy related conditions, third trimester (principal); R10.9 Unspecified abdominal pain; O40.3XX0 Polyhydramnios, third trimester, not applicable or unspecified; O36.60X0 Maternal care for excessive fetal growth, unspecified trimester, not applicable or unspecified; Z3A.33 33 weeks gestation of pregnancy
CPT/HCPCS: 59025; 76775; 76818; 81001; 87086; 87150; 87186; 96365; G0378; G0379; J0690

== ENCOUNTER 2023-12-30 07:35 | Outpatient (OUT) | payer MEDICAID, SELFPAY ==
--- NOTE | 2023-12-30 | US_ITS ---
[address] [address] Patient Name: TEODORO HERNANDES MRN: [id number] date: 2000 Sex: F Assigned Patient Location: US Current Patient Location: US Accession/Order Number: [id number] Exam Date: 12/30/2023 08:10 Report Date: 12/30/2023 08:55 At the request of: ROBERT CULLEN Procedure: US OB BPP w non-stress EXAMINATION: US OB BPP w non-stress HISTORY: Polyhydraminos O40.3XX0 COMPARISON: No relevant comparison available. TECHNIQUE: Ultrasound biophysical profile was performed in the radiology department. non-reactive stress testing was performed by nursing staff in the birthing center. FINDINGS: BREATHING MOVEMENTS: 2 GROSS BODY MOVEMENTS: 2 TONE: 2 QUALITATIVE AMNIOTIC FLUID VOLUME: 2 PRESENTATION: CEPHALIC HEART RATE: 141.36 bpm AMNIOTIC FLUID VOLUME: 23.6 cm GESTATIONAL AGE: 33 weeks 5 days US/US OB BPP w non-stress IMPRESSION: Total biophysical profile score: 8 Electronically authenticated by: LISETTE JIMENEZ Date: 12/30/2023 08:55
--- OUTSIDE RECORDS SUMMARY | 2023-12-30 07:40 | XMS_ITS | CCD ---
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 Role Phone Unavailable Primary Care Provider [...] Propensity to adverse reactions to drug 07-07-2020 [facility], [place] Medications Current Medications Medication Drug Class(es) Dates [...] Refill(s) 0 Start Date: 10/26/23 Status: Ordered Chrdhhdz-Xbj-Ib-FA ( 1 + IRON PO) (4 sources) Mzzrcqlr-Nfv-Cp-FA ( 1 + IRON PO) Take by [...] Range Facility Nursing Assessmenton 024 Nursing Assessment [id number] 2#1.00TIFF Normal [facility] C Urineon 10-28-2023 Bacteria identified Cx [...] This test was performed at: [facility], [address] [place] [address], [id number]- , , [facility] Comment on above: Performed By: #### 2 [id number] #### [facility] [address] [place] [address] Consent for Treatmenton 10-01 Consent for Treatment [id number] #1.00TIFF [facility] Discharge Instructionson Discharge Instructions [id number] 7#1.00TIFF [facility] Inpatient Clinical Summaryon 10-26-2023 Inpatient Clinical Summary [address] [address] Clinical Summary Person Information Name: TEODORO UPT[facility] [place] Age: 23 Years : 2000 Sex: Female PCP: NONE, XXXX Marital Status: Single Phone: [phone] Race: or Ethnicity: Non- or Language: Greek Visit Id: Visit Reason: 24 WEEKS BLEEDING Speciality: Acuity: Obs Enc Type: OB Triage Med Service: Obstetrics Arrival: 10/25/2023 23:36:04 Discharge: 10/26/2023 03:30:56 Dispo Type: Home (Routine DC) Address: [facility] [address] [facility] [id number] Provider Notes: Diagnosis: Problems Active (10/26/2023) Smoker [...] Physician: Follow up: With: [facility]: [facility] [address] [place] [address] [place] [address] Business (1) In 9 days 11/04/2023 Patient Education Information: and Urinary Tract Infection; Vaginal Bleeding During , Second Trimester; Back Pain in Normal [facility] Inpatient Patient Summaryon 10-26-2023 Inpatient Patient Summary [address] [address] Patient Discharge Instructions PERSON INFORMATION [...] Follow up: With: Address: When: [facility], [address] [place] [address] , [place] [address] Business (1) In 9 days [...] Always wi (more content not included)... Normal [facility] Insurance Correspondenceon 0 10-26-2023 Insurance Correspondence [id number] 8#1.00TIFF Normal [facility] UA with Cult Rflxon 10-26-19 24 Bacteria Auto Ql (U) Trace Normal Trace Fish [facility] Comment on above: Performed By: #### 4 [id number] #### [facility] [address] [place] [address] Bilirubin Ql (U) Negative Normal Negative [facility] Comment on above: Performed By: #### 4 [id number] #### [facility] [address] [place] [address] Clarity (U) Turbid Abnormal Clear [facility] Comment on above: Performed By: #### 4 [id number] #### [facility] [address] [place] [address] Color (U) Yellow Normal Yellow [facility] Comment on above: Result Comment: Micr oscopic readings are only performed on those samples that meet specific criteria set forth by [facility]. Performed By: #### 4 [id number] #### [facility] [address] [place] [address] Epithelial cells.squamous Auto (Urine sed) [#/Area] 5-8 Abnormal 0-2 [facility] Comment on above: Performed By: #### 4 [id number] #### [facility] [address] [place] [address] Glucose Ql (U) Negative Normal Negative [facility] Comment on above: Performed By: #### 4 [id number] #### [facility] [address] [place] [address] Hemoglobin Auto test strip (U) [Mass/Vol] Negative Normal Negative [facility] Comment on above: Performed By: #### 4 [id number] #### [facility] [address] [place] [address] Hyaline casts LM Ql (Urine sed) 0-3 Normal 0-3 [facility] Comment on above: Performed By: #### 4 [id number] #### [facility] [address] [place] [address] Ketones Auto test strip Ql (U) Negative Normal Negative [facility] Comment on above: Performed By: #### 4 [id number] #### [facility] [address] [place] [address] Leukocyte esterase Auto test strip Ql (U) 500 Gerald/uL Abnormal Negative [facility] Comment on above: Performed By: #### 4 [id number] #### [facility] [address] [place] [address] Mucus Auto Ql (U) Trace Normal Negative [facility] Comment on above: Performed By: #### 4 [id number] #### [facility] [address] [place] [address] Nitrite Auto test strip Ql (U) Negative Normal Negative [facility] Comment on above: Performed By: #### 4 [id number] #### [facility] [address] [place] [address] pH (U) 6.0 [pH] Invalid Interpretation Code 5.0-9.0 [facility] Comment on above: Performed By: #### 4 [id number] #### [facility] [address] [place] [address] Protein Ql (U) Trace Abnormal Negative [facility] Comment on above: Performed By: #### 4 [id number] #### [facility] [address] [place] [address] RBC Ql (U) 4-20 Abnormal 0-3 [facility] Comment on above: Performed By: #### 4 [id number] #### [facility] [address] [place] [address] Specific gravity (U) [Rel density] 1.030 Invalid Interpretation Code 1.005-1.030 [facility] Comment on above: Performed By: #### 4 [id number] #### [facility] [address] [place] [address] Urobilinogen (U) [Mass/Vol] Negative Normal Negative [facility] Comment on above: Performed By: #### 4 [id number] #### [facility] [address] [place] [address] WBC Auto (Urine sed) [#/Area] 16-25 Abnormal 0-5 [facility] Comment on above: Performed By: #### 4 [id number] #### [facility] [address] [place] [address] Type of Urine collection method Clean Catch Normal [facility] Comment on above: Performed By: #### 4 [id number] #### [facility] [address] [place] [address] URINALYSISOrdered By: SYSTEM SYSTEM on 10-25-2023 Bacteria [...] that meet specific criteria set forth by [facility]. Epithelial cells.squamous Auto (Urine sed) [...] 16-25 graded/HPF Invalid Interpretation Code 0-5graded/HP F [facility] UA Auto SS URINALYSISOrdered By: Elijah Hernandez on 10-25-2023 UA Spec Desc Clean Catch (10/25/23 11:53 PM) Normal [facility] UA Auto SS Urinalysis macro (dipstick) panel (U)on 07-17-2023 Bilirubin, UA Negative Negative - 4(70) +++ mg/dL [facility] Blood, UA Negative Negative - 50 William/mcL [facility] Clarity, UA Clear [facility] Color, UA Yellow [facility] Glucose, UA Negative Negative - 1999(110) ++++ mg/dL [facility] Interpretation and review of laboratory results Abnormal [facility] Ketones, UA Negative Negative - 160(16) ++++ mg/dL [facility] Leukocytes, UA Positive Negative - 500+++ Gerald/mcL [facility] Nitrite, UA Negative Negative - Positive [facility] pH, UA 7.0 5 - 9 [facility] Protein, UA Negative Negative - 1999(20) ++++ mg/dL [facility] Spec Grav, UA 1.020 1 - 1.03 [facility] Urobilinogen, UA 0.2 0.2 - 12 mg/dL [facility] HCG ( test) Ql (U)o n 07-03-2023 Interpretation and review of laboratory results Abnormal [facility] Preg Test, Ur Negative [facility] Urinalysis macro (dipstick) panel (U)on 07-03-2023 Bilirubin, UA Negative Negative - 4(70) +++ mg/dL [facility] Blood, UA Negative Negative - 50 William/mcL [facility] Clarity, UA Clear [facility] Color, UA Yellow [facility] Glucose, UA Negative Negative - 1999(110) ++++ mg/dL [facility] Interpretation and review of laboratory results Normal [facility] Ketones, UA Negative Negative - 160(16) ++++ mg/dL [facility] Leukocytes, UA Negative Negative - 500+++ Gerald/mcL [facility] Nitrite, UA Negative Negative - Positive [facility] pH, UA 5.5 5 - 9 [facility] Protein, UA Negative Negative - 1999(20) ++++ mg/dL [facility] Spec Grav, UA 1.010 1 - 1.03 [facility] Urobilinogen, UA 1.0 0.2 - 12 mg/dL [facility] XR FOOT RT MIN 3 VIEWSon [...] PADDY SAPP Date: 2022-08-30 14:42 Normal [facility] CBC AUTO DIFFon 06-28-2022 BASO # 0.0 103/ul Normal 0.0-0.1 [facility] Comment on above: Performed By: #### C BC #### [facility] [address] [place] [address] Dr. Jerald Poon Basophils/100 WBC (Bld) 0.3 % Normal 0.2-2.0 [facility] Comment on above: Performed By: #### C BC #### [facility] [address] [place] [address] Dr. Jerald Poon EO # 0.1 103/ul Normal 0.0-0.7 [facility] Comment on above: Performed By: #### C BC #### [facility] [address] [place] [address] Dr. Jerald Poon Eosinophils/100 WBC (Bld) 1.1 % Normal 0.9-7.0 [facility] Comment on above: Performed By: #### C BC #### [facility] [address] [place] [address] Dr. Jerald Poon Erythrocyte distribution width (RBC) [Ratio] 14.5 % Normal 11.0-15.0 [facility] Comment on above: Performed By: #### C BC #### [facility] [address] [place] [address] Dr. Jerald Poon Hematocrit (Bld) [Volume fraction] 36.7 % Normal 36.0-48.0 [facility] Comment on above: Performed By: #### C BC #### [facility] [address] [place] [address] Dr. Jerald Poon Hemoglobin (Bld) [Mass/Vol] 13.0 g/dL Normal 12.0-16.0 [facility] Comment on above: Performed By: #### C BC #### [facility] [address] [place] [address] Dr. Jerald Poon IG # 0.04 10e3/ul Critically high 0.00-0.03 [facility] Comment on above: Performed By: #### C BC #### [facility] [address] [place] [address] Dr. Jerald Poon IG % 0.3 % Normal 0.0-0.5 [facility] Comment on above: Performed By: #### C BC #### [facility] [address] [place] [address] Dr. Jerald Poon LYMPH # 3.0 103/ul Normal 1.2-3.8 [facility] Comment on above: Performed By: #### C BC #### [facility] [address] [place] [address] Dr. Jerald Poon Lymphocytes/100 WBC (Bld) 26.2 % Normal 20.5-60.0 [facility] Comment on above: Performed By: #### C BC #### [facility] [address] [place] [address] Dr. Jerald Poon MANUAL DIFF REQ NO Normal The [facility] Comment on above: Performed By: #### C BC #### [facility] [address] [place] [address] Dr. Jerald Poon MCH (RBC) [Entitic mass] 27.1 pg Normal 26.7-34.0 [facility] Comment on above: Performed By: #### C BC #### [facility] [address] [place] [address] Dr. Jerald Poon MCHC (RBC) [Mass/Vol] 35.4 g/dL Critically high 29.9-35.2 [facility] Comment on above: Performed By: #### C BC #### [facility] [address] [place] [address] Dr. Jerald Poon MCV (RBC) [Entitic vol] 76.6 fL Critically low 81.0-99.0 [facility] Comment on above: Performed By: #### C BC #### [facility] [address] [place] [address] Dr. Jerald Poon MONO # 0.8 103/ul Normal 0.3-0.8 [facility] Comment on above: Performed By: #### C BC #### [facility] [address] [place] [address] Dr. Jerald Poon Monocytes/100 WBC (Bld) 7.0 % Normal 1.7-12.0 [facility] Comment on above: Performed By: #### C BC #### [facility] [address] [place] [address] Dr. Jerald Poon NEUT # 7.5 103/ul Critically high 1.4-6.5 [facility] Comment on above: Performed By: #### C BC #### [facility] [address] [place] [address] Dr. Jerald Poon Neutrophils/100 WBC (Bld) 65.1 % Normal 43.0-75.0 [facility] Comment on above: Performed By: #### C BC #### [facility] [address] [place] [address] Dr. Jerald Poon Platelet mean volume (Bld) [Entitic vol] 10.0 fL Normal 9.5-13.5 [facility] Comment on above: Performed By: #### C BC #### [facility] [address] [place] [address] Dr. Jerald Poon PLT 387 103/ul Normal 150-450 [facility] Comment on above: Performed By: #### C BC #### [facility] [address] [place] [address] Dr. Jerald Poon RBC 4.79 106/ul Normal 4.20-5.40 [facility] Comment on above: Performed By: #### C BC #### [facility] [address] [place] [address] Dr. Jerald Poon WBC 11.6 103/ul Critically high 4.0-11.0 [facility] Comment on above: Performed By: #### C BC #### [facility] [address] [place] [address] Dr. Jerald Poon CULTURE URINEon 06-28-2022 CULTURE URINE Culture Observations: LIGHT GROWTH OF MIXED GENITAL ZACARIAS. NO POTENTIAL PATHOGENS SEEN. Normal [facility] Comment on above: Performed By: #### U RCX #### [facility] [address] [place] [address] Dr. Jerald Poon ER URINE PROFILEon 3 Bilirubin Ql (U) Negative Normal NEGATIVE [facility] Comment on above: Performed By: #### U MICRO, ERUR #### [facility] [address] [place] [address] Dr. Jerald Poon Clarity (U) CLEAR Normal CLEAR [facility] Comment on above: Performed By: #### U MICRO, ERUR #### [facility] [address] [place] [address] Dr. Jerald Poon Color (U) YELLOW Normal YELLOW [facility] Comment on above: Performed By: #### U MICRO, ERUR #### [facility] [address] [place] [address] Dr. Jerald Poon ERUAHD A micrscopic examination will be performed if indicated. Normal [facility] Comment on above: Performed By: #### U MICRO, ERUR #### [facility] [address] [place] [address] Dr. Jerald Poon Glucose Ql (U) Negative Normal NEGATIVE [facility] Comment on above: Performed By: #### U MICRO, ERUR #### [facility] [address] [address] [address] Jerald Poon Hemoglobin Ql (U) Negative Normal NEGATIVE [facility] Comment on above: Performed By: #### U MICRO, ERUR #### [facility] [address] [address] [address] Jerald Poon Ketones Ql (U) 40 mg/dl Abnormal NEGATIVE [facility] Comment on above: Performed By: #### U MICRO, ERUR #### [facility] [address] [place] [address] Dr. Jerald Poon LEUKOCYTES TRACE Abnormal NEGATIVE [facility] Comment on above: Performed By: #### U MICRO, ERUR #### [facility] [address] [address] [address] Jerald Poon Nitrite Ql (U) Negative Normal NEGATIVE [facility] Comment on above: Performed By: #### U MICRO, ERUR #### [facility] [address] [address] [address] Jerald Poon pH (U) 6.0 [pH] Normal 5-9 [facility] Comment on above: Performed By: #### U MICRO, ERUR #### [facility] [address] [place] [address] Dr. Jerald Poon SPEC GRAVITY >=1.030 Abnormal 1.005-<=1.02 5 [facility] Comment on above: Performed By: #### U MICRO, ERUR #### [facility] [address] [address] [address] Jerald Poon UA PROTEIN Negative Normal NEGATIVE/ TRACE [facility] Comment on above: Performed By: #### U MICRO, ERUR #### [facility] [address] [address] [address] Jerald Poon UR MICRO IND INDICATED Normal [facility] Comment on above: Performed By: #### U MICRO, ERUR #### [facility] [address] [place] [address] Dr. Jerald Poon Urobilinogen Qn (U) 0.2 {Lyly'U}/dL Normal 0.2 - 1. 0 [facility] Comment on above: Performed By: #### U MICRO, ERUR #### [facility] [address] [place] [address] Dr. Jerald Poon PREG QUANT HCGon 06-28-2022 HCG QUANT <1 Normal [facility] Comment on above: Performed By: #### P REGQNT #### [facility] [address] [place] [address] Dr. Jerald Poon HCG RANGE SEE BELOW Normal [facility] Comment on above: Result Comment: 5-50 0.2-1 WEEK 50-500 1-2 WEEKS 100-5,000 2-3 WEEKS 500-10,000 3-4 WEEKS 1,000-50,000 4-5 WEEKS 10,000-100,000 5-6 WEEKS 15,000-200,000 6-8 WEEKS 10,000-100,000 2-3 MONTHS Performed By: #### P REGQNT #### [facility] [address] [place] [address] Dr. Jerald Poon PROF CHEM 8 (BAS METB)on Anion gap [Moles/Vol] 14.0 mmol/L Normal Th [facility] Comment on above: Performed By: #### C BC #### [facility] [address] [place] [address] Dr. Jerald Poon Calcium [Mass/Vol] 9.6 mg/dL Normal 8.5-10.1 [facility] Comment on above: Performed By: #### C BC #### [facility] [address] [place] [address] Dr. Jerald Poon Chloride [Moles/Vol] 101 mmol/L Normal 98-107 [facility] Comment on above: Performed By: #### C BC #### [facility] [address] [place] [address] Dr. Jerald Poon CO2 [Moles/Vol] 25.4 mmol/L Normal 21.0-32.0 [facility] Comment on above: Performed By: #### C BC #### [facility] [address] [place] [address] Dr. Jerald Poon Creatinine [Mass/Vol] 0.92 mg/dL Normal 0.55-1.02 [facility] Comment on above: Performed By: #### C BC #### [facility] [address] [address] [address] Jerald Poon EGFR-AF SOUTH [place]OREAN >60 Normal >=60 [facility] Comment on above: Performed By: #### C BC #### [facility] [address] [address] [address] Jerald Poon EGFR-NON AF [place]ORE[place] >60 Normal >=60 [facility] Comment on above: Performed By: #### C BC #### [facility] [address] [address] [address] Jerald Poon Glucose [Mass/Vol] 101 mg/dL Normal 74-106 [facility] Comment on above: Performed By: #### C BC #### [facility] [address] [address] [address] Jerald Poon Potassium [Moles/Vol] 3.4 mmol/L Critically low 3.5-5.1 [facility] Comment on above: Performed By: #### C BC #### [facility] [address] [address] [address] Jerald Poon Sodium [Moles/Vol] 137 mmol/L Normal 136-145 [facility] Comment on above: Performed By: #### C BC #### [facility] [address] [address] [address] Jerald Poon Urea nitrogen [Mass/Vol] 11.0 mg/dL Normal 7.0-18.0 [facility] Comment on above: Performed By: #### C BC #### [facility] [address] [address] [address] Jerald Poon Urea nitrogen/Creatinine [Mass ratio] 12.0 mg/mg Normal [facility] Comment on above: Performed By: #### C BC #### [facility] [address] [address] [address] Jerald Poon TSHon 06-28-2022 TSH 1.319 uIU/mL Normal 0.358-3.740 [facility] Comment on above: Performed By: #### C BC #### [facility] [address] [address] [address] Jerald Poon URINE MICROSCOPIC ONLYon BACTERIA SMALL Abnormal NONE SEEN [facility] Comment on above: Performed By: #### U MICRO, ERUR #### [facility] [address] [place] [address] Dr. Jerald Poon Bacteria identified Cx Nom (U) INDICATED Normal [facility] Comment on above: Performed By: #### U MICRO, ERUR #### [facility] [address] [place] [address] Dr. Jerald Poon CAST NONE SEEN Normal NONE SEEN [facility] Comment on above: Performed By: #### U MICRO, ERUR #### [facility] [address] [place] [address] Dr. Jerald Poon Crystals LM Nom (Urine sed) NONE SEEN Normal NONE SEEN [facility] Comment on above: Performed By: #### U MICRO, ERUR #### [facility] [address] [place] [address] Dr. Jerald Poon Epithelial cells LM Ql (Urine sed) FEW Abnormal NONE SEEN /RARE [facility] Comment on above: Performed By: #### U MICRO, ERUR #### [facility] [address] [place] [address] Dr. Jerald Poon MUCOUS NONE SEEN Normal NONE SEEN [facility] Comment on above: Performed By: #### U MICRO, ERUR #### [facility] [address] [address] [address] Jerald Poon RBC NONE SEEN Abnormal 0-2 [facility] Comment on above: Performed By: #### U MICRO, ERUR #### [facility] [address] [place] [address] Dr. Jerald Poon WBC 2-5 Abnormal NONE SEEN [facility] Comment on above: Performed By: #### U MICRO, ERUR #### [facility] [address] [place] [address] Dr. Jerald Poon CBC AUTO DIFFon 10-31-2022 BASO # 0.0 103/ul Normal 0.0-0.1 [facility] Comment on above: Performed By: #### C BC #### [facility] [address] [place] [address] Dr. Jerald Poon Basophils/100 WBC (Bld) 0.5 % Normal 0.2-2.0 [facility] Comment on above: Performed By: #### C BC #### [facility] [address] [place] [address] Dr. Jerald Poon EO # 0.1 103/ul Normal 0.0-0.7 [facility] Comment on above: Performed By: #### C BC #### [facility] [address] [place] [address] Dr. Jerald Poon Eosinophils/100 WBC (Bld) 1.7 % Normal 0.9-7.0 [facility] Comment on above: Performed By: #### C BC #### [facility] [address] [place] [address] Dr. Jerald Poon Erythrocyte distribution width (RBC) [Ratio] 14.2 % Normal 11.0-15.0 [facility] Comment on above: Performed By: #### C BC #### [facility] [address] [place] [address] Dr. Jerald Poon Hematocrit (Bld) [Volume fraction] 36.7 % Normal 36.0-48.0 [facility] Comment on above: Performed By: #### C BC #### [facility] [address] [place] [address] Dr. Jerald Poon Hemoglobin (Bld) [Mass/Vol] 12.1 g/dL Normal 12.0-16.0 [facility] Comment on above: Performed By: #### C BC #### [facility] [address] [place] [address] Dr. Jerald Poon IG # 0.01 10e3/ul Normal 0.00-0.03 [facility] Comment on above: Performed By: #### C BC #### [facility] [address] [place] [address] Dr. Jerald Poon IG % 0.1 % Normal 0.0-0.5 [facility] Comment on above: Performed By: #### C BC #### [facility] [address] [place] [address] Dr. Jerald Poon LYMPH # 2.3 103/ul Normal 1.2-3.8 [facility] Comment on above: Performed By: #### C BC #### [facility] [address] [place] [address] Dr. Jerald Poon Lymphocytes/100 WBC (Bld) 30.8 % Normal 20.5-60.0 [facility] Comment on above: Performed By: #### C BC #### [facility] [address] [place] [address] Dr. Jerald Poon MANUAL DIFF REQ NO Normal [facility] Comment on above: Performed By: #### C BC #### [facility] [address] [place] [address] Dr. Jerald Poon MCH (RBC) [Entitic mass] 27.3 pg Normal 26.7-34.0 [facility] Comment on above: Performed By: #### C BC #### [facility] [address] [place] [address] Dr. Jerald Poon MCHC (RBC) [Mass/Vol] 33.0 g/dL Normal 29.9-35.2 [facility] Comment on above: Performed By: #### C BC #### [facility] [address] [place] [address] Dr. Jerald Poon MCV (RBC) [Entitic vol] 82.7 fL Normal 81.0-99.0 [facility] Comment on above: Performed By: #### C BC #### [facility] [address] [place] [address] Dr. Jerald Poon MONO # 0.8 103/ul Normal 0.3-0.8 [facility] Comment on above: Performed By: #### C BC #### [facility] [address] [place] [address] Dr. Jerald Poon Monocytes/100 WBC (Bld) 10.6 % Normal 1.7-12.0 [facility] Comment on above: Performed By: #### C BC #### [facility] [address] [place] [address] Dr. Jerald Poon NEUT # 4.2 103/ul Normal 1.4-6.5 [facility] Comment on above: Performed By: #### C BC #### [facility] [address] [place] [address] Dr. Jerald Poon Neutrophils/100 WBC (Bld) 56.3 % Normal 43.0-75.0 [facility] Comment on above: Performed By: #### C BC #### [facility] [address] [place] [address] Dr. Jerald Poon Platelet mean volume (Bld) [Entitic vol] 10.2 fL Normal 9.5-13.5 [facility] Comment on above: Performed By: #### C BC #### [facility] [address] [place] [address] Dr. Jerald Poon PLT 375 103/ul Normal 150-450 [facility] Comment on above: Performed By: #### C BC #### [facility] [address] [place] [address] Dr. Jerald Poon RBC 4.44 106/ul Normal 4.20-5.40 [facility] Comment on above: Performed By: #### C BC #### [facility] [address] [place] [address] Dr. Jerald Poon WBC 7.5 103/ul Normal 4.0-11.0 [facility] Comment on above: Performed By: #### C BC #### [facility] [address] [place] [address] Dr. Jerald Poon ER URINE PROFILEon 2 Bilirubin Ql (U) Negative Normal NEGATIVE [facility] Comment on above: Performed By: #### C BC #### [facility] [address] [place] [address] Dr. Jerald Poon Clarity (U) CLEAR Normal CLEAR [facility] Comment on above: Performed By: #### C BC #### [facility] [address] [place] [address] Dr. Jerald Poon Color (U) YELLOW Normal YELLOW [facility] Comment on above: Performed By: #### C BC #### [facility] [address] [place] [address] Dr. Jerald CEBALLOS A micrscopic examination will be performed if indicated. Normal [facility] Comment on above: Performed By: #### C BC #### [facility] [address] [place] [address] Dr. Jerald Poon Glucose Ql (U) Negative Normal NEGATIVE [facility] Comment on above: Performed By: #### C BC #### [facility] [address] [address] [address] Jerald Poon Hemoglobin Ql (U) Negative Normal NEGATIVE [facility] Comment on above: Performed By: #### C BC #### [facility] [address] [place] [address] Dr. Jerald Poon Ketones Ql (U) Negative Normal NEGATIVE [facility] Comment on above: Performed By: #### C BC #### [facility] [address] [place] [address] Dr. Jerald Poon LEUKOCYTES Negative Normal NEGATIVE [facility] Comment on above: Performed By: #### C BC #### [facility] [address] [place] [address] Dr. Jerald Poon Nitrite Ql (U) Negative Normal NEGATIVE [facility] Comment on above: Performed By: #### C BC #### [facility] [address] [place] [address] Dr. Jerald Poon pH (U) 7.0 [pH] Normal 5-9 [facility] Comment on above: Performed By: #### C BC #### [facility] [address] [place] [address] Dr. Jerald Poon SPEC GRAVITY 1.025 Normal 1.005-<=1.02 5 [facility] Comment on above: Performed By: #### C BC #### [facility] [address] [place] [address] Dr. Jerald Poon UA PROTEIN Negative Normal NEGATIVE/ TRACE [facility] Comment on above: Performed By: #### C BC #### [facility] [address] [address] [address] Jerald Poon UR MICRO IND NOT INDICATED Normal [facility] Comment on above: Performed By: #### C BC #### [facility] [address] [address] [address] Jerald Poon Urobilinogen Qn (U) 1.0 {Lyly'U}/dL Normal 0.2 - 1. 0 [facility] Comment on above: Performed By: #### C BC #### [facility] [address] [place] [address] Dr. Jerald Poon PREG QUANT HCGon 04-01-2022 HCG QUANT 1 mIU/mL Normal [facility] Comment on above: Performed By: #### P REGQNT #### [facility] [address] [place] [address] Dr. Jerald Poon HCG RANGE SEE BELOW Normal [facility] Comment on above: Result Comment: 5-50 0.2-1 WEEK 50-500 1-2 WEEKS 100-5,000 2-3 WEEKS 500-10,000 3-4 WEEKS 1,000-50,000 4-5 WEEKS 10,000-100,000 5-6 WEEKS 15,000-200,000 6-8 WEEKS 10,000-100,000 2-3 MONTHS Performed By: #### P REGQNT #### [facility] [address] [place] [address] Dr. eJrald Poon PROF 14(COMP METB)on 022 Albumin [Mass/Vol] 3.6 g/dL Normal 3.4-5.0 [facility] Comment on above: Performed By: #### C MP #### [facility] [address] [place] [address] Dr. Jerald Poon Albumin/Globulin [Mass ratio] 0.8 {ratio} Normal [facility] Comment on above: Performed By: #### C MP #### [facility] [address] [place] [address] Dr. Jerald Poon ALP [Catalytic activity/Vol] 65 U/L Normal 46-116 [facility] Comment on above: Performed By: #### C MP #### [facility] [address] [address] [address] Jerald Poon ALT [Catalytic activity/Vol] 22 U/L Normal 14-59 [facility] Comment on above: Performed By: #### C MP #### [facility] [address] [address] [address] Jerald Poon Anion gap [Moles/Vol] 10.3 mmol/L Normal Th [facility] Comment on above: Performed By: #### C MP #### [facility] [address] [address] [address] Jerald Poon AST [Catalytic activity/Vol] 14 U/L Critically low 15-37 [facility] Comment on above: Performed By: #### C MP #### [facility] [address] [address] [address] Jerald Poon Bilirubin [Mass/Vol] 0.1 mg/dL Critically low 0.2-1.0 [facility] Comment on above: Performed By: #### C MP #### [facility] [address] [address] [address] Jerald Poon Calcium [Mass/Vol] 8.6 mg/dL Normal 8.5-10.1 [facility] Comment on above: Performed By: #### C MP #### [facility] [address] [address] [address] Jerald Poon Chloride [Moles/Vol] 104 mmol/L Normal 98-107 [facility] Comment on above: Performed By: #### C MP #### [facility] [address] [address] [address] Jerald Poon CO2 [Moles/Vol] 28.1 mmol/L Normal 21.0-32.0 [facility] Comment on above: Performed By: #### C MP #### [facility] [address] [address] [address] Jerald Poon Creatinine [Mass/Vol] 0.99 mg/dL Normal 0.55-1.02 [facility] Comment on above: Performed By: #### C MP #### [facility] [address] [address] [address] Jerald Poon EGFR-AF [place]ORE[place] >60 Normal >=[address] [facility] Comment on above: Performed By: #### C MP #### [facility] [address] [address] [address] Jerald Poon EGFR-NON AF [place] >60 Normal >=60 [facility] Comment on above: Performed By: #### C MP #### [facility] [address] [address] [address] Jerald Poon Globulin (S) [Mass/Vol] 4.5 g/dL Normal [facility] Comment on above: Performed By: #### C MP #### [facility] [address] [address] [address] Jerald Poon Glucose [Mass/Vol] 94 mg/dL Normal 74-106 [facility] Comment on above: Performed By: #### C MP #### [facility] [address] [address] [address] Jerald Poon Potassium [Moles/Vol] 3.4 mmol/L Critically low 3.5-5.1 [facility] Comment on above: Performed By: #### C MP #### [facility] [address] [address] [address] Jerald Poon Protein [Mass/Vol] 8.1 g/dL Normal 6.4-8.2 [facility] Comment on above: Performed By: #### C MP #### [facility] [address] [address] [address] Jerald Poon Sodium [Moles/Vol] 139 mmol/L Normal 136-145 [facility] Comment on above: Performed By: #### C MP #### [facility] [address] [address] [address] Jerald Poon Urea nitrogen [Mass/Vol] 8.0 mg/dL Normal 7.0-18.0 [facility] Comment on above: Performed By: #### C MP #### [facility] [address] [address] [address] Jerald Poon Urea nitrogen/Creatinine [Mass ratio] 8.1 mg/mg Normal [facility] Comment on above: Performed By: #### C #### [facility] [id number] Jerald Poon US PELVIS TRANSVAGon 022 [...] LUH MANRIQUE Date: 2022-04-01 21:55 Normal [facility] Automated erythrocytes count in urine sediment (number/area)Ordered By: Anders Sesay on 10-19-2021 RBC Auto (Urine sed) [#/Area] 1-2 [HPF] [facility] Automated leukocytes count i n urine sediment (number/area)Ordered By: Anders Sesay on 10-19-2021 WBC Auto (Urine sed) [#/Area] 3-4 [HPF] [facility] Basophils Auto (Bld) [#/Vol] Ordered By: Anders Sesay on 10-19-2021 Basophils (Bld) [#/Vol] 0.1 10*3/uL 0.0-0.2 [facility] Basophils/100 WBC Auto (Bld) Ordered By: Anders Sesay on 10-19-2021 Basophils/100 WBC (Bld) 0.6 % [facility] Bilirubin Test strip Ql (U)O rdered By: Anders Sesay on 10-19-2021 Bilirubin Ql (U) Negative Negative [facility] Blood hemoglobin measurement (mass/volume)Ordered By: Anders Sesay on 10-19-2021 Hemoglobin (Bld) [Mass/Vol] 13.2 g/dL 11.8-15.4 [facility] Blood leukocytes automated c ount (number/volume)Ordered By: Anders Sesay on 10-19-2021 WBC (Bld) [#/Vol] 9.1 10*3/uL 4.5-11.0 [facility] Body fluid albumin measureme nt (mass/volume)Ordered By: Anders Sesay on 10-19-2021 Albumin (Body fld) [Mass/Vol] 3.8 g/dL 3.2-5.5 [facility] Color Auto (U)Ordered By: Jason Sesay on 10-19-2021 Color (U) Yellow Yellow [facility] Creatinine and Glomerular fi ltration rate.predicted panel (S/P/Bld)Ordered By: Anders Sesay on 10-19-2021 Creatinine [Mass/Vol] 0.87 mg/dL 0.44-1.03 [facility] Eosinophils Auto (Bld) [#/Vo l]Ordered By: Anders Sesay on 10-19-2021 Eosinophils (Bld) [#/Vol] 0.1 10*3/uL 0.0-0.45 [facility] Eosinophils/100 WBC Auto (Bl d)Ordered By: Anders Sesay on 10-19-2021 Eosinophils/100 WBC (Bld) 0.9 % [facility] Erythrocyte distribution wid th Auto (RBC) [Ratio]Ordered By: Anders Sesay on 10-19-2021 Erythrocyte distribution width (RBC) [Ratio] 16.4 % 11.9-15.3 [facility] Estimated glomerular filtrat ion rate (GFR) non- AmericanOrdered By: Anders Sesay on 10-19-2021 GFR/1.73 sq M.predicted among non-blacks MDRD (S/P/Bld) [Vol rate/Area] > 60 mL/Min [facility] Globulin Calc (S) [Mass/Vol] Ordered By: Anders Sesay on 10-19-2021 Globulin (S) [Mass/Vol] 4.3 g/dL [facility] HCG ( test) IA.rapi d Ql (U)Ordered By: Anders Sesay on 10-19-2021 HCG ( test) Ql (U) Negative [facility] Hematocrit Auto (Bld) [Volum e fraction]Ordered By: Anders Sesay on 10-19-2021 Hematocrit (Bld) [Volume fraction] 40.2 % 34.0-46.4 [facility] Ketones Auto test strip (U) [Mass/Vol]Ordered By: Anders Sesay on 10-19-2021 Ketones (U) [Mass/Vol] Negative Negative [facility] - Hematology and Cell countsOrdered By: Anders Sesay on 10-19-2021 Nucleated RBC/100 WBC (Bld) [Ratio] 0.2 % 0-0.5 [facility] - UrinalysisOrder ed By: Anders Sesay on 10-19-2021 Hyaline casts LM Ql (Urine sed) 0-8 [LPF] [facility] Lymphocytes Auto (Bld) [#/Vo l]Ordered By: Anders Sesay on 10-19-2021 Lymphocytes (Bld) [#/Vol] 2.4 10*3/uL 1.00-4.8 [facility] Lymphocytes/100 WBC Auto (Bl d)Ordered By: Anders Sesay on 10-19-2021 Lymphocytes/100 WBC (Bld) 26.7 % [facility] MCH Auto (RBC) [Entitic mass ]Ordered By: Anders Sesay on 10-19-2021 MCH (RBC) [Entitic mass] 26.3 pg 24.7-34.3 [facility] MCHC Auto (RBC) [Mass/Vol]Or dered By: Anders Sesay on 10-19-2021 MCHC (RBC) [Mass/Vol] 32.9 g/dL 32.0-35.0 [facility] MCV Auto (RBC) [Entitic vol] Ordered By: Anders Sesay on 10-19-2021 MCV (RBC) [Entitic vol] 80.1 fL 80-100 [facility] Monocytes Auto (Bld) [#/Vol] Ordered By: Anders Sesay on 10-19-2021 Monocytes (Bld) [#/Vol] 0.7 10*3/uL 0.0-0.8 [facility] Monocytes/100 WBC Auto (Bld) Ordered By: Anders Sesay on 10-19-2021 Monocytes/100 WBC (Bld) 7.6 % [facility] Neutrophils Auto (Bld) [#/Vo l]Ordered By: Anders Sesay on 10-19-2021 Neutrophils (Bld) [#/Vol] 5.8 10*3/uL 1.8-7.7 [facility] Neutrophils/100 WBC Auto (Bl d)Ordered By: Anders Sesay on 10-19-2021 Neutrophils/100 WBC (Bld) 64.2 % [facility] Nitrite Test strip Ql (U)Ord ered By: Anders Sesay on 10-19-2021 Nitrite Ql (U) Negative Negative [facility] No Panel InformationOrdered By: Anders Sesay on 10-19-2021 Estimated GFR () > 60 mL/Min [facility] Comment on above: GFR estimated refere nce range: According to KDOQI guidelines, <60 ml/min/1.73m2 is sufficient to diagnose a patient with chronic kidney disease. Pharmacy Creatinine Clearance (Chem 147.41 [facility] Platelet mean volume Auto (B ld) [Entitic vol]Ordered By: Anders Sesay on 10-19-2021 Platelet mean volume (Bld) [Entitic vol] 8.6 fL 6.3-10.7 [facility] Platelets Auto (Bld) [#/Vol] Ordered By: Anders Sesay on 10-19-2021 Platelets (Bld) [#/Vol] 395 10*3/uL 150-450 [facility] Protein Auto test strip (U) [Mass/Vol]Ordered By: Anders Sesay on 10-19-2021 Protein (U) [Mass/Vol] Negative Negative [facility] Protein [Mass/volume] in Ser um or PlasmaOrdered By: Anders Sesay on 10-19-2021 Protein [Mass/Vol] 8.1 g/dL 6.1-7.9 [facility] RBC Auto (Bld) [#/Vol]Ordere d By: Anders Sesay on 10-19-2021 RBC (Bld) [#/Vol] 5.02 10*6/uL 3.60-5.00 [facility] Serum or plasma alanine ayoub otransferase measurement without P-5'-P (enzymatic activiOrdered By: Anders Sesay on 10-19-2021 ALT No additional P-5'-P [Catalytic activity/Vol] 20 U/L 10-60 [facility] Serum or plasma albumin/glob ulin mass ratioOrdered By: Anders Sesay on 10-19-2021 Albumin/Globulin [Mass ratio] 0.9 {ratio} [facility] Serum or plasma alkaline cosmo sphatase measurement (enzymatic activity/volume)Ordered By: Anders Sesay on 10-19-2021 ALP [Catalytic activity/Vol] 55 U/L 32-92 [facility] Serum or plasma aspartate am inotransferase measurement (enzymatic activity/volume)Ordered By: Anders Sesay on 10-19-2021 AST [Catalytic activity/Vol] 17 U/L 10-42 [facility] Serum or plasma calcium joann urement (mass/volume)Ordered By: Anders Sesay on 10-19-2021 Calcium [Mass/Vol] 9.1 mg/dL 8.2-10.2 [facility] Serum or plasma chloride adan surement (moles/volume)Ordered By: Anders Sesay on 10-19-2021 Chloride [Moles/Vol] 103 mmol/L 95-114 [facility] Serum or plasma glucose joann urement (mass/volume)Ordered By: Anders Sesay on 10-19-2021 Glucose [Mass/Vol] 105 mg/dL 70-100 [facility] Comment on above: ADA recommended refe rence range Random Glucose Reference Range is dependent on time and content of last meal. Glucose of more than 200 mg/dL in a nonstressed, ambulatory subject supports the diagnosis of Diabetes Mellitus. Serum or plasma potassium me asurement (moles/volume)Ordered By: Anders Sesay on 10-19-2021 Potassium [Moles/Vol] 3.7 mmol/L 3.5-5.1 [facility] Serum or plasma sodium measu rement (moles/volume)Ordered By: Anders Sesay on 10-19-2021 Sodium [Moles/Vol] 137 mmol/L 136-146 [facility] Serum or plasma total biliru bin measurement (mass/volume)Ordered By: Anders Sesay on 10-19-2021 Bilirubin [Mass/Vol] 0.3 mg/dL 0.3-1.2 [facility] Serum or plasma total carbon dioxide measurement (moles/volume)Ordered By: Anders Sesay on 10-19-2021 CO2 [Moles/Vol] 24.2 mmol/L 22.0-30.0 [facility] Serum or plasma urea nitroge n measurement (mass/volume)Ordered By: Anders Sesay on 10-19-2021 Urea nitrogen [Mass/Vol] 7 mg/dL 9-23 [facility] Specific gravity Auto test s trip (U) [Rel density]Ordered By: Anders Sesay on 10-19-2021 Specific gravity (U) [Rel density] 1.014 1.001-1.030 [facility] Squamous epithelial cells de tection in urine sediment by light microscopyOrdered By: Anders Sesay on 10-19-2021 Epithelial cells.squamous LM Ql (Urine sed) 3-4 [HPF] [facility] Urine bacteria detection by automated methodOrdered By: Anders Sesay on 10-19-2021 Bacteria Auto Ql (U) 1+ None Seen [facility] Urine clarity by refractomet ry automatedOrdered By: Anders Sesay on 10-19-2021 Clarity Refractometry automated (U) Clear Clear [facility] Urine glucose measurement by automated test strip (mass/volume)Ordered By: Anders Sesay on 10-19-2021 Glucose Auto test strip (U) [Mass/Vol] Normal mg/dL Normal [facility] Urine hemoglobin detection b y automated test stripOrdered By: Anders Sesay on 10-19-2021 Hemoglobin Auto test strip Ql (U) Negative Negative [facility] Urine leukocyte esterase det ection by automated test stripOrdered By: Anders Sesay on 10-19-2021 Leukocyte esterase Auto test strip Ql (U) 1+ Negative [facility] Urobilinogen Auto test strip (U) [Mass/Vol]Ordered By: Anders Sesay on 10-19-2021 Urobilinogen (U) [Mass/Vol] Normal mg/dL Normal [facility] pH Auto test strip (U)Ordere d By: Anders Sesay on 10-19-2021 pH (U) 5.5 [pH] 5.0-9.0 [facility] US DUP ABD PEL RETRO SCROT L [...] MD 07/14/20 Edited Result - FINAL Normal [facility] US NON OB TRANSVAGINALon US NON OB [...] MD 07/14/20 Edited Result - FINAL Normal [facility] Chlamydia/GC,DNA Ampon 07-10 Chlamydia Probe Negative Normal NEG [facility] Comment on above: Result Comment: CHLA MYDIA [...] Performed By: #### U HCG, UAMIC #### [employer] [address] [place], [place] [id number] Financial Service Representative: Campos Avilez MD Gonorrhea Probe Negative Normal NEG [facility] Comment on above: Result Comment: NEIS SERIA [...] Performed By: #### U HCG, UAMIC #### [facility] [address] [place] [id number] Financial Service Representative: Campos Avilez MD Cult,Urineon 07-09-2020 Cult,Urine Specimen Description .CLEAN CATCH URINE Special Requests NOT REPORTED Culture ESCHERICHIA COLI >[id number] CFU/ML Report Status FINAL 07/09/2020 SUSCEPTIBILITY Organism [...] <=20 SUSCEPTIBLE Piperacillin/Tazobac her <=4 SUSCEPTIBLE Normal [facility] Comment on above: Performed By: #### U HCG, UAMIC #### [address] [address] Financial Service Representative: Campos Avilez MD ABO/Rh(D)on 07-08-2020 ABO/Rh(D) Positive Normal [facility] Comment on above: Performed By: #### [facility] #### [place] [address] Financial Service Representative: Campos Avilez MD CBC with Diffon 07-08-2020 Abs. Basophil 0.04 k/uL Normal 0.00-0.20 [facility] Comment on above: Performed By: #### C P, CDP, COSMO, BHCG, MG, VD25, LIP #### [facility] [employer] [address] [place] [id number] Financial Service Representative: Campos Avilez MD Abs.Imm.Granulocyte 0.04 k/uL Normal 0.00-0.30 [facility] Comment on above: Performed By: #### C P, CDP, COSMO, BHCG, MG, VD25, LIP #### [facility] [employer] [address] [place] [id number] Financial Service Representative: Campos Avilez MD Abs.Neutrophil (Seg) 8.16 k/uL High 1.80-8.00 [facility] Comment on above: Performed By: #### C P, CDP, COSMO, BHCG, MG, VD25, LIP #### [address] [address] Financial Service Representative: Campos Avilez MD Basophils/100 WBC (Bld) 0 % Normal 0-2 [facility] Comment on above: Performed By: #### C P, CDP, COSMO, BHCG, MG, VD25, LIP #### [place] [address] Financial Service Representative: Campos Avilez MD Eosinophils (Bld) [#/Vol] 0.10 10*3/uL Normal 0.00-0.44 [facility] Comment on above: Performed By: #### C P, CDP, COSMO, BHCG, MG, VD25, LIP #### [place] [address] Financial Service Representative: Campos Avilez MD Eosinophils/100 WBC (Bld) 1 % Normal 1-4 [facility] Comment on above: Performed By: #### C P, CDP, COSMO, BHCG, MG, VD25, LIP #### [place] [address] Financial Service Representative: Campos Avilez MD Erythrocyte distribution width (RBC) [Ratio] 14.0 % Normal 11.8-14.4 [facility] Comment on above: Performed By: #### C P, CDP, COSMO, BHCG, MG, VD25, LIP #### [place] [address] Financial Service Representative: Campos Avilez MD Hematocrit (Bld) [Volume fraction] 34.3 % Low 36.3-47.1 [facility] Comment on above: Performed By: #### C P, CDP, COSMO, BHCG, MG, VD25, LIP #### [address] [address] Financial Service Representative: Campos Avilez MD Hemoglobin (Bld) [Mass/Vol] 11.1 g/dL Low 11.9-15.1 [facility] Comment on above: Performed By: #### C P, CDP, COSMO, BHCG, MG, VD25, LIP #### [address] [address] Financial Service Representative: Campos Avilez MD Immature granulocytes (Bld) [#/Vol] 0 % Normal 0 [facility] Comment on above: Performed By: #### C P, CDP, COSMO, BHCG, MG, VD25, LIP #### [address] [address] Financial Service Representative: Campos Avilez MD Lymphocytes (Bld) [#/Vol] 1.77 10*3/uL Normal 1.20-5.20 [facility] Comment on above: Performed By: #### C P, CDP, COSMO, BHCG, MG, VD25, LIP #### [place] [address] Financial Service Representative: Campos Avilez MD Lymphocytes/100 WBC (Bld) 16 % Low 25-45 [facility] Comment on above: Performed By: #### C P, CDP, COSMO, BHCG, MG, VD25, LIP #### [address] [address] Financial Service Representative: Campos Avilez MD MCH (RBC) [Entitic mass] 26.6 pg Normal 25.0-35.0 [facility] Comment on above: Performed By: #### C P, CDP, COSMO, BHCG, MG, VD25, LIP #### [address] [address] Financial Service Representative: Campos Avilez MD MCHC (RBC) [Mass/Vol] 32.4 g/dL Normal 28.4-34.8 [facility] Comment on above: Performed By: #### C P, CDP, COSMO, BHCG, MG, VD25, LIP #### [address] [address] Financial Service Representative: Campos Avilez MD MCV (RBC) [Entitic vol] 82.3 fL Normal 78.0-102.0 [facility] Comment on above: Performed By: #### C P, CDP, COSMO, BHCG, MG, VD25, LIP #### [address] [address] Financial Service Representative: Campos Avilez MD Monocytes (Bld) [#/Vol] 0.73 10*3/uL Normal 0.10-1.40 [facility] Comment on above: Performed By: #### C P, CDP, COSMO, BHCG, MG, VD25, LIP #### [address] [address] Financial Service Representative: Campos Avilez MD Monocytes/100 WBC (Bld) 7 % Normal 2-8 [facility] Comment on above: Performed By: #### C P, CDP, COSMO, BHCG, MG, VD25, LIP #### [address] [address] Financial Service Representative: Campos Avilez MD Neutrophil (Seg) 75 % High 34-64 [facility] Comment on above: Performed By: #### C P, CDP, COSMO, BHCG, MG, VD25, LIP #### [address] [address] Financial Service Representative: Campos Avilez MD NRBC Automated 0.0 per 100 WBC Normal 0.0 [facility] Comment on above: Performed By: #### C P, CDP, COSMO, BHCG, MG, VD25, LIP #### [address] [address] Financial Service Representative: Campos Avilez MD Platelet mean volume (Bld) [Entitic vol] 11.8 fL Normal 8.1-13.5 [facility] Comment on above: Performed By: #### C P, CDP, COSMO, BHCG, MG, VD25, LIP #### [address] [address] Financial Service Representative: Campos Avilez MD Platelets (Bld) [#/Vol] 288 10*3/uL Normal 138-453 [facility] Comment on above: Performed By: #### C P, CDP, COSMO, BHCG, MG, VD25, LIP #### [address] [address] Financial Service Representative: Campos Avilez MD RBC (Bld) [#/Vol] 4.17 10*6/uL Normal 3.95-5.11 [facility] Comment on above: Performed By: #### C P, CDP, COSMO, BHCG, MG, VD25, LIP #### [facility] [employer] [address] [place] [address] Financial Service Representative: Campos Avilez MD WBC (Bld) [#/Vol] 10.8 10*3/uL Normal 4.5-13.5 [facility] Comment on above: Performed By: #### C P, CDP, COSMO, BHCG, MG, VD25, LIP #### [address] [address] Financial Service Representative: Campos Avilez MD Auto Diff Performed NOT REPORTED Normal [facility] Comment on above: Performed By: #### C P, CDP, COSMO, BHCG, MG, VD25, LIP #### [facility] [employer] [address] [place] [address] Financial Service Representative: Campos Avilez MD Platelets (Bld) [#/Vol] NOT REPORTED Normal [facility] Comment on above: Performed By: #### C P, CDP, COSMO, BHCG, MG, VD25, LIP #### [address] [place] [address] Financial Service Representative: Campos Avilez MD RBC morphology finding Nom (Bld) NOT REPORTED Normal [facility] Comment on above: Performed By: #### C P, CDP, COSMO, BHCG, MG, VD25, LIP #### [address] [place] [address] Financial Service Representative: Campos Avilez MD WBC Morphology NOT REPORTED Normal [facility] Comment on above: Performed By: #### C P, CDP, COSMO, BHCG, MG, VD25, LIP #### [address] [address] Financial Service Representative: Campos Avilez MD Calcium, Ionicon 07-08-2020 Calcium [Mass/Vol] 1.18 mmol/L Normal 1.13-1.33 [facility] Comment on above: Performed By: #### I OCAL #### [address] [address] Financial Service Representative: Campos Avilez MD Calcium, Ionizedon Calcium [Mass/Vol] 1.18 mmol/L 1.13 - 1. 33 mmol/L [facility], [place] Comp Metabolic Profon 2020 (cont.) Normal [facility] Comment on above: Result Comment: Aver age GFR for <20 years old not available. Chronic Kidney Disease: <60 mL/min/1.73sq m Kidney failure: <15 mL/min/1.73sq m eGFR calculated using average adult body mass. Additional eGFR calculator available at: http://www.[employer]/multiple_crcl_2012.htm Performed By: #### C P, CDP, COSMO, BHCG, MG, VD25, LIP #### [address] [place] [address] Financial Service Representative: Campos Avilez MD Albumin [Mass/Vol] 2.3 g/dL Low 3.5-5.2 [facility] Comment on above: Performed By: #### C P, CDP, COSMO, BHCG, MG, VD25, LIP #### [address] [address] Financial Service Representative: Campos Avilez MD Albumin/Globulin [Mass ratio] 0.9 {ratio} Low 1.0-2.5 [facility] Comment on above: Performed By: #### C P, CDP, COSMO, BHCG, MG, VD25, LIP #### [address] [address] Financial Service Representative: Campos Avilez MD Alkaline Phos 41 U/L Normal 35-104 [facility] Comment on above: Result Comment: SPEC IMEN MODERATELY HEMOLYZED, RESULTS MAY BE ADVERSELY AFFECTED Performed By: #### C P, CDP, COSMO, BHCG, MG, VD25, LIP #### [address] [address] Financial Service Representative: Campos Avilez MD ALT [Catalytic activity/Vol] 11 U/L Normal 5-33 [facility] Comment on above: Result Comment: SPEC IMEN MODERATELY HEMOLYZED, RESULTS MAY BE ADVERSELY AFFECTED Performed By: #### C P, CDP, COSMO, BHCG, MG, VD25, LIP #### [address] [address] Financial Service Representative: Campos Avilez MD Anion gap [Moles/Vol] 9 mmol/L Normal 9-17 [facility] Comment on above: Performed By: #### C P, CDP, COSMO, BHCG, MG, VD25, LIP #### [address] [address] Financial Service Representative: Campos Avilez MD AST [Catalytic activity/Vol] 28 U/L Normal <32 [facility] Comment on above: Result Comment: SPEC IMEN MODERATELY HEMOLYZED, RESULTS MAY BE ADVERSELY AFFECTED Performed By: #### C P, CDP, COSMO, BHCG, MG, VD25, LIP #### [address] [address] Financial Service Representative: Campos Avilez MD Bilirubin Ql (U) <0.10 Low 0.3-1.2 [facility] Comment on above: Performed By: #### C P, CDP, COSMO, BHCG, MG, VD25, LIP #### [address] [address] Financial Service Representative: Campos Avilez MD Calcium [Mass/Vol] 5.5 mg/dL Critically low 8.6-10.4 [facility] Comment on above: Performed By: #### C P, CDP, COSMO, BHCG, MG, VD25, LIP #### [address] [address] Financial Service Representative: Campos Avilez MD Chloride [Moles/Vol] 118 mmol/L High 98-107 [facility] Comment on above: Performed By: #### C P, CDP, COSMO, BHCG, MG, VD25, LIP #### [address] [address] Financial Service Representative: Campos Avielz MD CO2 [Moles/Vol] 14 mmol/L Low 20-31 [facility] Comment on above: Performed By: #### C P, CDP, COSMO, BHCG, MG, VD25, LIP #### [address] [address] Financial Service Representative: Campos Avilez MD Creatinine [Mass/Vol] 0.60 mg/dL Normal 0.50-0.90 [facility] Comment on above: Performed By: #### C P, CDP, COSMO, BHCG, MG, VD25, LIP #### [address] [address] Financial Service Representative: Campos Avilez MD GFR,non Amer Pediatric GFR requires additional information. Refer to NKDEP website for Normal >60 [facility] Comment on above: Result Comment: calc ulator. Performed By: #### C P, CDP, COSMO, BHCG, MG, VD25, LIP #### [address] [address] Financial Service Representative: Campos Avilez MD Glucose [Mass/Vol] 84 mg/dL Normal 70-99 [facility] Comment on above: Performed By: #### C P, CDP, COSMO, BHCG, MG, VD25, LIP #### [address] [address] Financial Service Representative: Campos Avilez MD Potassium [Moles/Vol] 5.1 mmol/L Normal 3.7-5.3 [facility] Comment on above: Result Comment: SPEC IMEN MODERATELY HEMOLYZED, RESULTS MAY BE ADVERSELY AFFECTED Performed By: #### C P, CDP, COSMO, BHCG, MG, VD25, LIP #### [address] [address] Financial Service Representative: Campos Avilez MD Protein [Mass/Vol] 5.0 g/dL Low 6.4-8.3 [facility] Comment on above: Performed By: #### C P, CDP, COSMO, BHCG, MG, VD25, LIP #### [facility] [employer] [address] [place] [address] Financial Service Representative: Campos Avilez MD Sodium [Moles/Vol] 141 mmol/L Normal 135-144 [facility] Comment on above: Performed By: #### C P, CDP, COSMO, BHCG, MG, VD25, LIP #### [address] [address] Financial Service Representative: Campos Avilez MD Urea nitrogen [Mass/Vol] 10 mg/dL Normal 6-20 [facility] Comment on above: Performed By: #### C P, CDP, COSMO, BHCG, MG, VD25, LIP #### [address] [place] [address] Financial Service Representative: Campos Avilez MD BUN/CRE Ratio NOT REPORTED Normal 9-20 [facility] Comment on above: Performed By: #### C P, CDP, COSMO, BHCG, MG, VD25, LIP #### [facility] [place] [address] Financial Service Representative: Campos Avilez MD GFR, Amer NOT REPORTED Normal >60 [facility] Comment on above: Performed By: #### C P, CDP, COSMO, BHCG, MG, VD25, LIP #### [address] [address] Financial Service Representative: Campos Avilez MD Staging: NOT REPORTED Normal [facility] Comment on above: Performed By: #### C P, CDP, COSMO, BHCG, MG, VD25, LIP #### [facility] [employer] [address] [place] [address] Financial Service Representative: Campos Avilez MD HCG, ,Urineon 07-089 Beta HCG ( test) Ql (U) Negative Normal NEG [facility] Comment on above: Result Comment: Spec imens with hCG levels near the threshold of the test (25 mIU/mL) may give a negative or indeterminate result. In such cases, another test should be performed with a new specimen in 48-72 hours. If early is suspected clinically in this setting, correlation with quantitative serum b-hCG level is suggested. Performed By: #### U HCG, UAMIC #### [address] [address] Financial Service Representative: Campos Avilez MD HCG, Quanton 07-08-2020 HCG, Quant <1 Normal <5 [facility] Comment on above: Result Comment: Non-preg premeno [...] BHCG, MG, VD25, LIP #### [facility] [address] [place] [address] Financial Service Representative: Campos Avilez MD Lipaseon 07-08-2020 Lipase [Catalytic activity/Vol] 15 U/L Normal 13-60 [facility] Comment on above: Performed By: #### C P, CDP, COSMO, BHCG, MG, VD25, LIP #### [facility] [address] [place] [phone] Financial Service Representative: Campos Avilez MD Magnesiumon 07-08-2020 Magnesium [Mass/Vol] 1.2 mg/dL Low 1.7-2.2 [facility] Comment on above: Performed By: #### C P, CDP, COSMO, BHCG, MG, VD25, LIP #### [facility] [address] [place] [address] Financial Service Representative: Campos Avilez MD Interpretation and review of laboratory results Abnormal [place] Magnesium [Mass/Vol] 1.2 mg/dL Low 1.7 - 2 .2 mg/dL [place] Otheron 07-08-2020 Direct Exam Negative [place] , URINEon Beta HCG ( test) Ql (U) Negative NEGATIVE [place] Comment on above: Specimens with hCG [...] 2.6 mg/dL 2.5 - 4 .8 mg/dL [place] Phosphorus, Inorg.on 021 Phosphorus, Inorg. 2.6 mg/dL Normal 2.5-4.8 [facility] Comment on above: Performed By: #### U HCG, UAMIC #### [facility] [employer] [address] [place] [address] Financial Service Representative: Campos Avilez MD NON OB TRANSVAGINALon Elia, Mhpn Incoming Radiant Results From [employer] - 07/08/2020 12:31 AM EST EXAMINATION: PELVIC [...] No evidence of ovarian torsion is noted. [place], [place] Unremarkable pelvic ultrasound. No evidence of ovarian torsion is noted. [place] EXAMINATION: PELVIC ULTRASOUND 07/07/2020 TECHNIQUE: Transvaginal [...] Free Fluid: No evidence of free fluid. [facility] [place], [place] Urinalysis w/ Microon 2020 ----- Normal [facility] Comment on above: Performed By: #### U HCG, UAMIC #### [address] [address] Financial Service Representative: Campos Avilez MD Acetoacetic Acid,Ur Negative Normal NEG [facility] Comment on above: Performed By: #### U HCG, UAMIC #### [address] [address] Financial Service Representative: Campos Avilez MD Bacteria LM.HPF (Urine sed) [#/Area] MANY Abnormal NONE [facility] Comment on above: Performed By: #### U HCG, UAMIC #### [address] [address] Financial Service Representative: Campos Avilez MD Bilirubin, SemiQt,Ur Negative Normal NEG [facility] Comment on above: Performed By: #### U HCG, UAMIC #### [address] [address] Financial Service Representative: Campos Avilez MD Color (U) ORANGE Abnormal YEL [facility] Comment on above: Result Comment: INTE RPRET WITH CAUTION DUE TO INTENSE COLOR OF URINE. Performed By: #### U HCG, UAMIC #### [address] [address] Financial Service Representative: Campos Avilez MD Epithelial cells LM.HPF (Urine sed) [#/Area] 0 TO 2 Normal 0-5 [facility] Comment on above: Performed By: #### U HCG, UAMIC #### [address] [address] Financial Service Representative: Campos Avilez MD Glucose Ql (U) Negative Normal NEG [facility] Comment on above: Performed By: #### U HCG, UAMIC #### [address] [address] Financial Service Representative: Campos Avilez MD Hemoglobin, Ur LARGE Abnormal NEG [facility] Comment on above: Performed By: #### U HCG, UAMIC #### [address] [address] Financial Service Representative: Campos Avilez MD Leukocyte esterase Test strip Ql (U) MODERATE Abnormal NEG [facility] Comment on above: Performed By: #### U HCG, UAMIC #### [address] [address] Financial Service Representative: Campos Avilez MD Nitrite,Ur Positive Abnormal NEG [facility] Comment on above: Performed By: #### U HCG, UAMIC #### [address] [address] Financial Service Representative: Campos Avilez MD pH (U) 5.5 [pH] Normal 5.0-8.0 [facility] Comment on above: Performed By: #### U HCG, UAMIC #### [address] [address] Financial Service Representative: Campos Avilez MD Protein Ql (U) 2+ Abnormal NEG [facility] Comment on above: Performed By: #### U HCG, UAMIC #### [address] [address] Financial Service Representative: Campos Avilez MD RBC (U) [#/Vol] 50 TO 100 Normal 0-4 [facility] Comment on above: Result Comment: Refe rence range defined for non-centrifuged specimen. Performed By: #### U HCG, UAMIC #### [address] [address] Financial Service Representative: Campos Avilez MD Specific gravity (U) [Rel density] 1.021 Normal 1.005-1.030 [facility] Comment on above: Performed By: #### U HCG, UAMIC #### [address] [address] Financial Service Representative: Campos Avilez MD Turbidity TURBID Abnormal CLEAR [facility] Comment on above: Performed By: #### U HCG, UAMIC #### [address] [address] Financial Service Representative: Campos Avilez MD Urobilinogen,Ur Normal Normal NORM [facility] Comment on above: Performed By: #### U HCG, UAMIC #### [address] [address] Financial Service Representative: Campos Avilez MD WBC (U) [#/Vol] TOO NUMEROUS TO COUNT Normal 0-5 [facility] Comment on above: Performed By: #### U HCG, UAMIC #### [address] [address] Financial Service Representative: Campos Avilez MD Amorphous sediment LM Ql (Urine sed) NOT REPORTED Normal [facility] Comment on above: Performed By: #### U HCG, UAMIC #### [address] [address] Financial Service Representative: Campos Avilez MD Casts LM.LPF (Urine sed) [#/Area] NOT REPORTED Normal 0-8 [facility] Comment on above: Performed By: #### U HCG, UAMIC #### [address] [address] Financial Service Representative: Campos Avilez MD Crystals LM Nom (Urine sed) NOT REPORTED Normal NONE [facility] Comment on above: Performed By: #### U HCG, UAMIC #### [address] [address] Financial Service Representative: Campos Avilez MD Epithelial, Renal NOT REPORTED Normal 0 [facility] Comment on above: Performed By: #### U HCG, UAMIC #### [facility] [employer] [address] [place] [address] Financial Service Representative: Campos Avilez MD Mucus Strands NOT REPORTED Normal NONE [facility] Comment on above: Performed By: #### U HCG, UAMIC #### [address] [address] Financial Service Representative: Campos vAilez MD Other Observations NOT REPORTED Normal NREQ [facility] Comment on above: Performed By: #### U HCG, UAMIC #### [address] [address] Financial Service Representative: Campos Avilez MD Trichomonas NOT REPORTED Normal [facility] Comment on above: Performed By: #### U HCG, UAMIC #### [address] [address] Financial Service Representative: Campos Avilez MD Yeast LM Ql (Urine sed) NOT REPORTED Normal [facility] Comment on above: Performed By: #### U HCG, UAMIC #### [address] [address] Financial Service Representative: Campos Avilez MD Urinalysis with microscopico n 07-08-2020 Amorphous, UA NOT REPORTED None [facility] [place], [place] Bacteria, UA MANY Abnormal None [facility], [place] Bilirubin Urine Negative NEGATIVE [facility] [place] Casts UA NOT REPORTED [facility], [place] Color, UA ORANGE Abnormal YELLOW [place], [place] Comment on above: INTERPRET WITH CAUTI ON DUE TO INTENSE COLOR OF URINE. Crystals, UA NOT REPORTED None /HPF [facility] [place], [place] Epithelial Cells UA 0 TO 2 [place], [place] Glucose, Ur Negative NEGATIVE [place] Interpretation and review of laboratory results Abnormal [place] Ketones Ql (U) Negative NEGATIVE [place], [place] Leukocyte esterase Test strip Ql (U) MODERATE Abnormal NEGATIVE [place] Mucus, UA NOT REPORTED None [place], [place] Nitrite, Urine Positive Abnormal NEGATIVE [place], [place] Other Observations UA NOT REPORTED NOT REQ. M [place], [place] pH, UA 5.5 [place], [place] Protein (U) [Mass/Vol] 2+ Abnormal NEGATIVE [place], [place] RBC (U) [#/Vol] 50 TO 100 [place], [place] Comment on above: Reference range defi sonia for non-centrifuged specimen. Renal Epithelial, UA NOT REPORTED 0 /HPF [place], [place] Specific [place], UA 1.021 [place], [place] Trichomonas, UA NOT REPORTED None [place], [place] Turbidity UA TURBID Abnormal CLEAR [place] Urine Hgb LARGE Abnormal NEGATIVE [place] Urobilinogen, Urine Normal Normal [place] WBC, UA TOO NUMEROUS TO COUNT [place] Yeast, UA NOT REPORTED None [place] VAGINITIS DNA PROBEon 2020 Direct Exam Positive Abnormal [place] Direct Exam Method of testing is a DNA probe intended for detection and identification of Samantha species, Gardnerella vaginalis, and Trichomonas vaginalis nucleic acid in vaginal fluid specimens from patients with symptoms of vaginitis/vaginosis. [place] Interpretation and review of laboratory results Abnormal [place] Special Requests NOT REPORTED [place] Specimen Description .VAGINA [place], [place] Vaginitis DNA Probeon 2020 Vaginitis DNA [...] of vaginitis/vaginosis. Report Status FINAL 07/08/2020 Normal [facility] Comment on above: Performed By: #### U HCG, UAMIC #### [facility] [address] [place] [address] Financial Service Representative: Campos Avilez MD Vitamin D 25 Hydroxyon 07-08 Interpretation and review of laboratory results Abnormal [place], [place] Vit D, 25-Hydroxy 12.1 ng/mL Low 30 - 100 ng/mL [place], [place] Comment on above: Reference Range: Vitamin D status Range Deficiency <20 ng/mL Mild Deficiency 20-30 ng/mL Sufficiency 30-100 ng/mL Toxicity >100 ng/mL Vitamin D 25 OHon 07-08-2020 Vitamin D 25 [place] 12.1 ng/mL Low 30.0-100.0 [facility] Comment on above: Result Comment: Reference Range: Vitamin D status Range Deficiency <20 ng/mL Mild Deficiency 20-30 ng/mL Sufficiency 30-100 ng/mL Toxicity >100 ng/mL Performed By: #### U HCG, UAMIC #### [facility] [address] [place] [phone] Financial Service Representative: Campos Avilez MD ABO/RHon 07-07-2020 ABO/Rh Positive [place] CBC WITH AUTO DIFFERENTIALon 07-07-2020 Basophils (Bld) [#/Vol] 0.04 10*3/uL [place] Basophils/100 WBC (Bld) 0 % 0 - 2 % [place] Differential Type NOT REPORTED [place] Eosinophils (Bld) [#/Vol] 0.10 10*3/uL [place] Eosinophils/100 WBC (Bld) 1 % 1 - 4 % [place] Erythrocyte distribution width (RBC) [Ratio] 14.0 % 11.8 - 14.4 % [place] Hematocrit (Bld) [Volume fraction] 34.3 % Low 36.3 - 47.1 % [place] Hemoglobin (Bld) [Mass/Vol] 11.1 g/dL Low 11.9 - 15.1 g/dL [place] Immature granulocytes (Bld) [#/Vol] 0 % 0 [place] Immature granulocytes (Bld) [#/Vol] 0.04 10*3/uL [place] Interpretation and review of laboratory results Abnormal [place] Lymphocytes (Bld) [#/Vol] 1.77 10*3/uL [place] Lymphocytes/100 WBC (Bld) 16 % Low 25 - 45 % [place] MCH (RBC) [Entitic mass] 26.6 pg 25 - 35 pg [place] MCHC (RBC) [Mass/Vol] 32.4 g/dL 28.4 - 34.8 g/dL [place] MCV (RBC) [Entitic vol] 82.3 fL 78 - 102 fL [place] Monocytes (Bld) [#/Vol] 0.73 10*3/uL [place] Monocytes/100 WBC (Bld) 7 % 2 - 8 % [place] Platelet mean volume (Bld) [Entitic vol] 11.8 fL 8.1 - 13.5 fL [place] Platelets (Bld) [#/Vol] NOT REPORTED [place] Platelets (Bld) [#/Vol] 288 10*3/uL [place] RBC (Bld) [#/Vol] 4.17 10*6/uL 3.95 - 5.1 1 m/uL [place] RBC morphology finding Nom (Bld) NOT REPORTED [place] Segmented neutrophils/100 WBC (Bld) 75 % High 34 - 64 % [place] Segs Absolute 8.16 High [place] WBC (Bld) [#/Vol] 0.0 10*3/uL 0.0 per 10 0 WBC [place] WBC (Bld) [#/Vol] 10.8 10*3/uL [place] WBC Morphology NOT REPORTED [place] COMPREHENSIVE METABOLIC PANE Mikie 07-07-2020 Albumin [Mass/Vol] 2.3 g/dL Low 3.5 - 5.2 g/dL [place] Albumin/Globulin [Mass ratio] 0.9 {ratio} Low [place] ALP [Catalytic activity/Vol] 41 U/L 35 - 104 U/L [place] Comment on above: SPECIMEN MODERATELY HEMOLYZED, RESULTS MAY BE ADVERSELY AFFECTED ALT [Catalytic activity/Vol] 11 U/L 5 - 33 U/L [place] Comment on above: SPECIMEN MODERATELY HEMOLYZED, RESULTS MAY BE ADVERSELY AFFECTED Anion gap [Moles/Vol] 9 mmol/L 9 - 17 mmol/L [place] AST [Catalytic activity/Vol] 28 U/L <32 [place] Comment on above: SPECIMEN MODERATELY HEMOLYZED, RESULTS MAY BE ADVERSELY AFFECTED Bilirubin Ql (U) <0.10 Low 0.3 - 1.2 mg/dL [place] Bun/Cre Ratio NOT REPORTED [place] Calcium [Mass/Vol] 5.5 mg/dL Critically low 8.6 - 1 0.4 mg/dL [place] Chloride [Moles/Vol] 118 mmol/L High 98 - 10 7 mmol/L [place] CO2 [Moles/Vol] 14 mmol/L Low 20 - 31 mmol/L [place] Creatinine [Mass/Vol] 0.6 mg/dL 0.5 - 0.9 mg/dL [place] GFR NOT REPORTED >60 mL/min [place] GFR Non- Pediatric GFR requires additional information. Refer to NKDEP website for calculator. >60 mL/min [place] GFR/1.73 sq M predicted among non-blacks MDRD (S/P/Bld) [Vol rate/Area] NOT REPORTED [place] GFR/1.73 sq M predicted among non-blacks MDRD (S/P/Bld) [Vol rate/Area] [place] Comment on above: Average GFR for <20 years old not available. Chronic Kidney Disease: <60 mL/min/1.73sq m Kidney failure: <15 mL/min/1.73sq m eGFR calculated using average adult body mass. Additional eGFR calculator available at: http://www.Finario/multiple_crcl_2012.htm Glucose [Mass/Vol] 84 mg/dL 70 - 99 mg/dL [place] Interpretation and review of laboratory results Abnormal [place] Potassium [Moles/Vol] 5.1 mmol/L 3.7 - 5.3 mmol/L [place] Comment on above: SPECIMEN MODERATELY HEMOLYZED, RESULTS MAY BE ADVERSELY AFFECTED Protein [Mass/Vol] 5.0 g/dL Low 6.4 - 8.3 g/dL [place] Sodium [Moles/Vol] 141 mmol/L 135 - 144 mmol/L [place] Urea nitrogen [Mass/Vol] 10 mg/dL 6 - 20 mg/dL [place] HCG, QUANTITATIVE, on 07-07-2020 hCG Quant <1 <5 IU/L [place] Comment on above: Non-preg premeno <=5 [...] activity/Vol] 15 U/L 13 - 60 U/L [place] Vital Signs Date Time Vital Sign Value Performing Clinician Facility 10-26-2023 03:30-0400 Hourly Rounding Fuentes Florentino [facility] Comment on above: Result Comment: pt discharged off unit 10-26-2023 03:15-0400 Hourly Rounding Fuentes Florentino [facility] Comment on above: Result Comment: went over discharge inst ructions. educated pt on importance of contacting primary provider with future concerns, pisking up antibiotic prescription tomorrow, and calling is symtpoms return or get worse. 10-26-2023 00:00-0400 Blood Pressure Location Fuentes Florentino [facility] 10-26-2023 00:00-0400 Body temperature 98.6 [degF] Fuentes Florentino [facility] 10-26-2023 00:00-0400 Diastolic blood pressure 68 mm[Hg] Fuentes Florentino [facility] 10-26-2023 00:00-0400 Heart rate 101 /min Fuentes Florentino [facility] 10-26-2023 00:00-0400 Hourly Rounding Fuentes Florentino [facility] 10-26-2023 00:00-0400 Mean blood pressure 86 mm[Hg] Fuentes Florentino [facility] 10-26-2023 00:00-0400 Respiratory rate 16 /min Fuentes Florentino [facility] 10-26-2023 00:00-0400 Systolic blood pressure 122 mm[Hg] Fuentes Florentino [facility] 07-17-2023 11:42-0500 Body weight 127.82 kg Chung Benja DO Work Phone: [facility] 07-17-2023 11:42-0500 Diastolic blood pressure 70 mm[Hg] Chung Benja DO Work Phone: [facility] 07-17-2023 11:42-0500 Systolic blood pressure 118 mm[Hg] Chung Benja DO Work Phone: [facility] 10-19-2021 01:12-0400 Diastolic blood pressure 62 mm[Hg] PHYSICIAN [facility] 10-19-2021 01:12-0400 Heart rate 89 /min PHYSICIAN [facility] 10-19-2021 01:12-0400 Respiratory rate 18 /min PHYSICIAN [facility] 10-19-2021 01:12-0400 SaO2% (BldA) [Mass fraction] 100 % PHYSICIAN [facility] 10-19-2021 01:12-0400 Systolic blood pressure 130 mm[Hg] PHYSICIAN [facility] 10-18-2021 23:10-0400 Body height 167.64 cm PHYSICIAN [facility] 10-18-2021 23:10-0400 Body mass index (BMI) [Percentile] Per age and sex 99.1 % PHYSICIAN [facility] 10-18-2021 23:10-0400 Body mass index (BMI) [Ratio] 48.2 kg/m2 PHYSICIAN [facility] 10-18-2021 23:10-0400 Body weight 135.5 kg PHYSICIAN [facility] 10-18-2021 23:08-0400 Body temperature 98.4 [degF] PHYSICIAN [facility] 07-07-2020 21:51-0500 BMI (Body Mass Index) 42.93 kg/m2 [facility] [place] 07-07-2020 21:51-0500 [facility] [place] 07-07-2020 21:51-0500 BP Diastolic 85 mm[Hg] [place], [place] 07-07-2020 21:51-0500 BP Systolic 136 mm[Hg] [place] 07-07-2020 21:51-0500 Height 167.6 cm [place] 07-07-2020 21:51-0500 Pulse (Heart Rate) 93 /min [place] 07-07-2020 21:51-0500 Pulse Oximetry 97 % [place] 07-07-2020 21:51-0500 Respiratory Rate 18 /min [facility] [place] [place] 07-07-2020 21:48-0500 Body Temperature 97.11 [degF] [facility] [place] Encounters Encounter Date Encounter Type Care Provider Facility Start: 12-17-2023 End: 12-17-2023 ambulatory HALIMA SUBHASH Not Available Start: 12-03-2023 End: 12-03-2023 ambulatory CHUNG BENJA Not Available Start: 11-19-2023 End: 11-19-2023 ambulatory CHUNG BENJA Not Available Start: 11-04-2023 End: 11-04-2023 ambulatory HALIMA SUBHASH Not Available Start: 10-26-2023 End: 10-26-2023 ambulatory Fuentes Florentino Facility:[facility] Start: 10-25-2023 End: 10-26-2023 OB Triage Fuentes Florentino [facility] Start: 10-07-2023 End: 10-07-2023 ambulatory CHUNG BENJA [...] Emergency department patient visit PHYSICIAN NO FAMILY Facility:[facility] Start: 10-18-2021 End: 10-19-2021 Emergency department patient visit PHYSICIAN NO FAMILY [facility] Start: 07-07-2020 End: 07-08-2020 Emergency department patient visit DAVID AQUINO [facility] Start: 07-07-2020 End: 07-08-2020 Emergency department patient visit Lisa Land Work Phone: [facility] ED Comment on above: BV (bacterial vagino [...] procedure 08/14/2023 11:20 AM EDT Routine [facility] [address] [place] [address] Halima Cullen PA [address] [address] [facility] Start: 07-17-2023 End: 07-17-2024 US for US OB VIABLILITY Imaging Routine with uncertain viability, single or unspecified fetus Expected: 07/17/2023 (Approximate), Expires: 07/17/2024 [facility] Work Phone: Comment on above: Expected: 07/17/2023 (Approximate), Expires: 07/17/2024 Start: 07-17-2023 End: 07-17-2023 Patient encounter procedure [facility] Comment on above: First trimester preg yesika Start: 07-03-2023 End: 07-03-2024 ABO/Rh ABO/Rh Lab Routine Missed menses Expected: 07/03/2023 (Approximate), Expires: 07/03/2024 [facility] Comment on above: Expected: 07/03/2023 (Approximate), Expires: 07/03/2024 Start: 07-03-2023 End: 07-03-2024 Blood type and Indirect antibody screen panel - Blood Type and screen Lab Routine Missed menses Expected: 07/03/2023 (Approximate), Expires: 07/03/2024 [facility] Work Phone: Comment on above: Expected: 07/03/2023 (Approximate), Expires: 07/03/2024 Start: 07-03-2023 End: 07-03-2024 US Pelvis transvaginal US OB transvaginal Imaging Routine Missed menses Expected: 07/03/2023 (Approximate), Expires: 07/03/2024 [facility] Comment on above: Expected: 07/03/2023 (Approximate), Expires: 07/03/2024 Start: 02-01-2020 Influenza vaccination Flu vaccine (# 1) [place] Start: 2018 Meningococcal (ACWY) vaccine (1 - 2-dose series) Meningococcal (ACWY) vaccine (1 - 2-dose series) [place] Start: 2018 Screening for Chlamy nancy trachomatis Chlamydia screen [place] Start: 2017 HIV screening HIV screen [place], [place] Start: 2013 HPV vaccine (1 - 2-d ose series) HPV vaccine (1 - 2-dose series) [place] Start: 2009 DTaP/Tdap/Td vaccine (1 - Tdap) DTaP/Tdap/Td vaccine (1 - Tdap) [place] Start: 2003 Hepatitis A vaccine (1 of 2 - 2-dose series) Hepatitis A vaccine (1 of 2 - 2-dose series) [place] Start: 2003 Measles,Mumps,Rubell a (MMR) vaccine (1 of 2 - Standard series) Measles,Mumps,Rubella (MMR) vaccine (1 of 2 - Standard series) [place] Start: 2003 Varicella vaccine (1 of 2 - 2-dose childhood series) Varicella vaccine (1 of 2 - 2-dose childhood series) [place] Start: 2002 Hepatitis B vaccine (1 of 3 - 3-dose primary series) Hepatitis B vaccine (1 of 3 - 3-dose primary series) [place] Start: 2002 Hepatitis C screening Hepatitis C sc reen [place] Bacteria identified in Urine by Culture Urine culture Microbiology Routine Missed menses Ordered: 07/03/2023 [facility] Comment on above: Ordered: 07/03/2023 End: 07-07-2020 C.trachomatis N.gonorrhoeae DNA C.trachomatis N.gonorrhoeae DNA Microbiology STAT One Time for 1 Occurrences starting 07/07/2020 until 07/07/2020 [place] Comment on above: One Time for 1 Occur rences starting 07/07/2020 until 07/07/2020 C.trachomatis N.gonorrhoeae DNA C.trachomatis N.gonorrhoeae DNA Microbiology Stat [employer] Label print 07/07/2020 11:20 PM [place] End: 07-08-2020 Calcium, Ionized Calcium, Ionized Lab STAT One Time for 1 Occurrences starting 07/08/2020 until 07/08/2020 [place] Comment on above: One Time for 1 Occur rences starting 07/08/2020 until 07/08/2020 CBC W Auto Different ial panel - Blood CBC and differential Lab Routine Missed menses Ordered: 07/03/2023 [facility] Comment on above: Ordered: 07/03/2023 End: 07-07-2020 Culture, Urine Culture, Urine Microbiology STAT One Time for 1 Occurrences starting 07/07/2020 until 07/07/2020 [place] Comment on above: One Time for 1 Occur rences starting 07/07/2020 until 07/07/2020 Culture, Urine Culture, Urine Microbiology Stat [employer] Label print 07/07/2020 10:56 PM [place] Hemoglobin A1c measurement Hemoglobin A1c Lab Routine Missed menses Ordered: 07/03/2023 [facility] Comment on above: Ordered: 07/03/2023 Hepatitis B virus surface Ag [Presence] in Serum or Plasma by Immunoassay Hepatitis B surface antigen Lab Routine Missed menses Ordered: 07/03/2023 [facility] Comment on above: Ordered: 07/03/2023 Hepatitis C virus Ab [Presence] in Serum or Plasma by Immunoassay Hepatitis C antibody Lab Routine Missed menses Ordered: 07/03/2023 [facility] Comment on above: Ordered: 07/03/2023 HIV-1/HIV-2 antigen/antibody combination immunoassay HIV-1 and HIV-2 antibodies Lab Routine Missed menses Ordered: 07/03/2023 [facility] Comment on above: Ordered: 07/03/2023 Patient Education Common Breast Problems Pelvic Pain ED [facility] Work Phone: Patient referral [facility] Work Phone: Reagin Ab [Presence] in Serum by RPR RPR Lab Routine Missed menses Ordered: 07/03/2023 [facility] Comment on above: Ordered: 07/03/2023 Rubella antibody, IgG Rubella an tibody, IgG Lab Routine Missed menses Ordered: 07/03/2023 [facility] Comment on above: Ordered: 07/03/2023 End: 07-07-2020 US DUP ABD PEL RETRO SCROT LIMITED US DUP ABD PEL RETRO SCROT LIMITED Imaging STAT Once for 1 Occurrences starting 07/07/2020 until 07/07/2020 [place] Comment on above: Once for 1 Occurrenc es starting 07/07/2020 until 07/07/2020 US DUP ABD PEL RETRO SCROT LIMITED US DUP ABD PEL RETRO SCROT LIMITED Imaging STAT 07/08/2020 12:13 AM EST [place] Payers Date Payer Category Payer Unknown BCBS BCBS [id number] [id number] 2023-Present [phone] [address] [place] [address] [id number] 2023 Unknown [id number] 2021 Self-pay [id number] 2002 Unknown [id number] 2002 Unknown [id number] 2002 Unknown [id number] 2002 Unknown [id number] [id number] 2002 Unknown [id number] [id number] 2002 Unknown [id number] [id number] 2002 Unknown [id number] [id number] 2002 Unknown [id number] [id number] 2002 Unknown [id number] [id number] 2002 Unknown [id number] [id number] 2002 Unknown [id number] [id number] 2002 Unknown [id number] [id number] 2002 Unknown [id number] [id number] 2002 Unknown [id number] [id number] 1957 Medicaid [id number] 1959 Unknown [id number] Unknown [id number] Social History Date Type Detail Facility Start: 07-07-2020 End: 07-16-2023 Tobacco smoking status NHIS Never smoker [facility] Start: 07-07-2020 Tobacco use and exposure Never used [place], [place] Start: 2002 Sex Assigned At Not on file [place] Exposure to SARS-CoV-2 (event) Not sure [place] Start: 10-19-2021 Tobacco smoking status NHIS Smoker (finding) [facility] Start: 2000 Sex Assigned At Female F [facility] Tobacco smoking status NCIS Tobacco smoking consumption unknown [facility] Start: 05-22-2023 [facility] Start: 07-16-2023 Gender identity Not on file [facility] Start: 07-16-2023 End: 07-17-2023 Alcohol intake Lifetime non-drinker (finding) [facility] Start: 07-16-2023 History of Social function [facility] Tobacco smoking status No Smoking Status Entered [facility] Functional Status Date Assessment Result Facility 10-26-2023 Functional Status N/A [facility] Clinical Notes 07-03-2023 to 10-26-2023 Chung Yousif DO - 07/17/2023 11:10 AM Costa Kilgore LPN - 07/03/2023 1:00 PM EST Note Date & Type Note Facility 10-26-2023 Note The following Patien t Education Materials have been given to the patient: EducationMaterial [facility] 10-26-2023 Hospital Discharg e instructions Patient [...] provider. Document Revised: 01/02/2022 Document Reviewed: 01/02/2022 [employer] Patient Education 2022 [employer] 10/26/2023 03:10:04 Vaginal Bleeding During , Second [...] help with your regular activities. Medicines Take ggpl-lpz-bfbfhnk and prescription medicines only as told by [...] provider. Document Revised: 02/08/2021 Document Reviewed: 02/08/2021 [employer] Patient Education 2022 [employer] 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 [...] your back during . General instructions Take fdpy-vvw-obcbqxc and prescription medicines only as told by [...] care provider for managing back pain. Take znvf-hht-xrugmtp and prescription medicines only as told by [...] provider. Document Revised: 08/01/2021 Document Reviewed: 08/01/2021 [employer] Patient Education 2022 [employer] Follow Up Care 10/25/2023 23:39:34 With:Chung YOUSIF Address: [address] , [place] [address]- Business (1) When:11/04/2023 [facility] 10-25-2023 Evaluation + Plan note Diagnostic Tests PendingUrine Culture 10/25/23 [facility] 07-17-2023 History of Presen t illness Narrative Reason for Appointment: Patient ID: Teodoro Upton is a 23 y.o. female who presents for Routine Visit Patient presents today for Return OB appointment. Current Medications: has a current medication list which includes the following prescription(s): uaqjffud-aae-pa-fa and promethazine. Medical History: Active Ambulatory Problems Diagnosis Date Noted No Active Ambulatory Problems Resolved Ambulatory Problems Diagnosis Date Noted No Resolved Ambulatory Problems Past Medical History: Diagnosis Date ADD (attention deficit disorder) Asthma ([facility]) Family History Problem Relation Name Age [...] Chung Yousif DO documented in this encounter [facility] 07-03-2023 History of Presen t illness [...] Problems Past Medical History: Diagnosis Date Asthma ([facility]) No family history on file. Social [...] Evaluation note No assessment inform ation available [facility] Work Phone: Evaluation note Diagnosis Missed menses Nausea and vomiting, unspecified vomiting type [facility] Diagnosis First trimester state, incidental Vaginal bleeding in Threatened miscarriage Threatened , unspecified as to episode of care with uncertain viability, single or unspecified fetus documented [facility] Narrative No data available for this section [facility] Additional Instructions Please follow up as we discussed so you can have your concerns further evaluated.[facility] [employer] Work Phone: Progress note No data available for this section [facility] Discharge Instructions * Instructions* Brenda Stoner DO - 07/08/2020 [facility] ED Clinic List Healthcare Providers Services Day of Week/ Hours [facility] Services [address] Pediatric Primary Care Adult Primary Care [facility]//Specialty Clinics Friday 8:00a 4:30p [address] Adult Medicine, Pediatrics, [facility] Friday 8:30a 4:30p [facility] Surgery [address] [facility] Friday 8:30a 11:00a [address] Adult Internal Medicine ([facility]) [facility] Clinic Pediatric Clinic Friday, Friday, , Friday 8:00a 4:30p Friday 1:00p 4:30p Friday, Friday, 8:00a 5:00p; Friday 8:00a 12:30p Friday 1p 4p Friday, Friday, , Friday 8:30a 4:15p Friday 12:30p 4:15p [facility] Department [place] [id number] [facility] Pediatric Primary Care Adult Primary Care OB/ Friday, Friday 8a 12p 8a 4:45p [facility] [address] [place] [address] [place] [address] # Pre & Post Adoption Counseling Support / nutrition Care Reward Incentive Program [facility] Fri, , Fri, Fri 10:00a 4:30p Thur 10:00a 7:30p E Gomez Location Friday - Friday 10a 4:30p [facility] [address] Adult Internal Medicine [address] [facility] Pediatrics [address] [facility], [address] Neuro / Headache [address] Friday 8:30a 5p [facility] Practice [address] [facility] Fri, , , Fri 9:00a 4:30p Wed 1:00p 4:30p [facility] Practice [address] [facility] [address] Family [facility] Friday 8:30a 5:00p [facility] Specialty Clinics [address] [facility] [address] Burn/Plastic, ENT, GI, Orthopedics, Surgical / Trauma, Urology, Vascular Friday 8:00 4:30p Call for an appointment [facility] [address] [facility] Adult Medicine, Eye Clinic, Dental Patient must be certified homeless Under age 18 not accepted Friday 8:00 4:30p [facility] [address] [facility] Practice OB Friday, Friday, Friday, Friday 9a 5p 9a 6p Friday (OB only) [facility] [address] [facility] OB/ Friday 11a 7p , Fri, 9a 5p Friday 8a 4p 1st Friday 9a 1p Podiatry Clinic [address] [facility] [address] [facility] [address] Friday 8:00 4:[address] Free nurse visits [place] programs Counseling Class Call or walk in [facility] [address] [place] Various Clinics 8a 5:30p [facility] Center [address] [facility], [address] Family Practice Friday 8a 4:30p [facility] [address] [place] [address] [id number] [facility] [place], [place] [id number] Friday 8a 4:30p Friday 8a 4:30p 8a 8p Outpatient Clinics [facility] [place] [facility] [address] [facility] Friday 9a 5p Diabetic Education Services Call for an appointment [facility] Heart Failure Clinic [address] [facility] Friday 8:30a 4p Dental Services [facility] [address] [facility] Must have source of income and must bring (2) recent check stubs to appointment By appointment only [facility] [address] Patient must be homeless, call for eligibility guidelines. Under age 18 NOT accepted Days and hours vary (Doors open at 8:30a day of week varies) Call for an appointment Miscellaneous Information [facility] Call for Help [phone] Call for an appointment H.E.L.P (Hospital Eligibility Link Program) toll free For financial assistance * Attachments The following attachments cannot be sent through Care Everywhere. * Bacterial Vaginosis (Greek) * UTI (Urinary Tract Infection): Female (Greek) * Vitamin D: General Info (Greek) documented in this encounter Assessments Diagnosis BV [...] section and content) DATE CREATED AUTHOR 07/16/2020 [facility] DATE CREATED AUTHOR AUTHOR'S ORGANIZ ATION 09/07/2022 [facility] DATE CREATED AUTHOR AUTHOR'S ORGANIZ ATION 03/13/[address] [facility] DATE CREATED AUTHOR AUTHOR'S ORGANIZ ATION 10/27/2023 [facility] DATE CREATED AUTHOR AUTHOR'S ORGANIZ ATION 10/31/2023 [facility] DATE CREATED AUTHOR AUTHOR'S ORGANIZ ATION 12/21/2023 [facility] dicor Specialists EPIC Care Teams (unrecognized sec tion [...] BE BASED ON THE PRIMARY CLINICAL RECORDS. [employer] provides no warranty or guarantee of the accuracy or completeness of information in this document.
== END 2023-12-30 07:36 | disposition home or self-care (01) ==
LOC: US 07:35
PROVIDERS: Visit Provider Physician Assistant
DX: O40.3XX0 Polyhydramnios, third trimester, not applicable or unspecified (principal); O36.60X0 Maternal care for excessive fetal growth, unspecified trimester, not applicable or unspecified; Z3A.33 33 weeks gestation of pregnancy
CPT/HCPCS: 76818

== ENCOUNTER 2024-01-02 06:59 | Outpatient (OUT) | payer MEDICAID, SELFPAY ==
--- OUTSIDE RECORDS SUMMARY | 2024-01-02 07:03 | XMS_ITS | CCD ---
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 Name Role Phone Unavailable Primary Care Provider [...] to adverse reactions to drug 07-07-2020 [facility] [place] Medications Current Medications Medication Drug Class(es) Dates [...] Refill(s) 0 Start Date: 10/26/23 Status: Ordered Ukugfagr-Gwq-Zq-FA ( 1 + IRON PO) (4 sources) Kvowcvdg-Gmm-Qv-FA ( 1 + IRON PO) Take by [...] Range Facility Nursing Assessmenton 024 Nursing Assessment [id number] 2#1.00TIFF Normal [facility] C Urineon 10-28-2023 Bacteria identified Cx [...] Locations R1: This test was performed at: [facility], [address] [place] [address], [id number] , , [facility] Comment on above: Performed By: #### 2 [id number] #### [facility] [address] [place] [address] Consent for Treatmenton 10-01 Consent for Treatment [id number] #1.00TIFF [facility] Discharge Instructionson Discharge Instructions [id number] 7#1.00TIFF [facility] Inpatient Clinical Summaryon 10-26-2023 Inpatient Clinical Summary [address] [address] Clinical Summary Person Information Name: [facility] Age: 23 Years : 2000 Sex: Female PCP: NONE, XXXX Marital Status: Single Phone: [phone] Race: or Ethnicity: Non- or Language: [place]ese Visit Id: Visit Reason: 24 WEEKS BLEEDING Speciality: Acuity: Obs Enc Type: OB Triage Med Service: Obstetrics Arrival: 10/25/2023 23:36:04 Discharge: 10/26/2023 03:30:56 Dispo Type: Home (Routine DC) Address: [facility] [address] [facility] [id number] Provider Notes: Diagnosis: Problems Active (10/26/2023) Smoker [...] up: With: Address: [facility] [address] [place] [address] [place] [address] Business (1) In 9 days 11/04/2023 Patient Education Information: and Urinary Tract Infection; Vaginal Bleeding During , Second Trimester; Back Pain in Normal [facility] Inpatient Patient Summaryon 10-26-2023 Inpatient Patient Summary [address] [address] Patient Discharge Instructions PERSON INFORMATION [...] Follow up: With: Address: When: [facility], [address] [place] [address] , [place] [address] Business (1) In 9 days [...] Always wi (more content not included)... Normal [facility] Insurance Correspondenceon 0 10-26-2023 Insurance Correspondence [id number] 8#1.00TIFF Normal [facility] UA with Cult Rflxon 10-26-19 24 Bacteria Auto Ql (U) Trace Normal Trace Fish [facility] Comment on above: Performed By: #### 4 [id number] #### [facility] [address] [place] [address] Bilirubin Ql (U) Negative Normal Negative [facility] Comment on above: Performed By: #### 4 [id number] #### [facility] [address] [place] [address] Clarity (U) Turbid Abnormal Clear [facility] Comment on above: Performed By: #### 4 [id number] #### [facility] [address] [place] [address] Color (U) Yellow Normal Yellow [facility] Comment on above: Result Comment: Micr oscopic readings are only performed on those samples that meet specific criteria set forth by [facility]. Performed By: #### 4 [id number] #### [facility] [address] [place] [address] Epithelial cells.squamous Auto (Urine sed) [#/Area] 5-8 Abnormal 0-2 [facility] Comment on above: Performed By: #### 4 [id number] #### [facility] [address] [place] [address] Glucose Ql (U) Negative Normal Negative [facility] Comment on above: Performed By: #### 4 [id number] #### [facility] [address] [place] [address] Hemoglobin Auto test strip (U) [Mass/Vol] Negative Normal Negative [facility] Comment on above: Performed By: #### 4 [id number] #### [facility] [address] [place] [address] Hyaline casts LM Ql (Urine sed) 0-3 Normal 0-3 [facility] Comment on above: Performed By: #### 4 [id number] #### [facility] [address] [place] [address] Ketones Auto test strip Ql (U) Negative Normal Negative [facility] Comment on above: Performed By: #### 4 [id number] #### [facility] [address] [place] [address] Leukocyte esterase Auto test strip Ql (U) 500 Gerald/uL Abnormal Negative [facility] Comment on above: Performed By: #### 4 [id number] #### [facility] [address] [place] [address] Mucus Auto Ql (U) Trace Normal Negative [facility] Comment on above: Performed By: #### 4 [id number] #### [facility] [address] [place] [address] Nitrite Auto test strip Ql (U) Negative Normal Negative [facility] Comment on above: Performed By: #### 4 [id number] #### [facility] [address] [place] [address] pH (U) 6.0 [pH] Invalid Interpretation Code 5.0-9.0 [facility] Comment on above: Performed By: #### 4 [id number] #### [facility] [address] [place] [address] Protein Ql (U) Trace Abnormal Negative [facility] Comment on above: Performed By: #### 4 [id number] #### [facility] [address] [place] [address] RBC Ql (U) 4-20 Abnormal 0-3 [facility] Comment on above: Performed By: #### 4 [id number] #### [facility] [address] [place] [address] Specific gravity (U) [Rel density] 1.030 Invalid Interpretation Code 1.005-1.030 [facility] Comment on above: Performed By: #### 4 [id number] #### [facility] [address] [place] [address] Urobilinogen (U) [Mass/Vol] Negative Normal Negative [facility] Comment on above: Performed By: #### 4 [id number] #### [facility] [address] [place] [address] WBC Auto (Urine sed) [#/Area] 16-25 Abnormal 0-5 [facility] Comment on above: Performed By: #### 4 [id number] #### [facility] [address] [place] [address] Type of Urine collection method Clean Catch Normal [facility] Comment on above: Performed By: #### 4 [id number] #### [facility] [address] [place] [address] URINALYSISOrdered By: SYSTEM SYSTEM on 10-25-2023 Bacteria [...] that meet specific criteria set forth by [facility]. Epithelial cells.squamous Auto (Urine sed) [...] 16-25 graded/HPF Invalid Interpretation Code 0-5graded/HP F [facility] UA Auto SS URINALYSISOrdered By: Elijah Hernandez on 10-25-2023 UA Spec Desc Clean Catch (10/25/23 11:53 PM) Normal [facility] UA Auto SS Urinalysis macro (dipstick) panel (U)on 07-17-2023 Bilirubin, UA Negative Negative - 4(70) +++ mg/dL [facility] Blood, UA Negative Negative - 50 William/mcL [facility] Healthcare Clarity, UA Clear [facility] Color, UA Yellow [facility] Glucose, UA Negative Negative - 1999(110) ++++ mg/dL [facility] Interpretation and review of laboratory results Abnormal [facility] Ketones, UA Negative Negative - 160(16) ++++ mg/dL [facility] Leukocytes, UA Positive Negative - 500+++ Gerald/mcL [facility] Nitrite, UA Negative Negative - Positive [facility] pH, UA 7.0 5 - 9 [facility] Protein, UA Negative Negative - 1999(20) ++++ mg/dL [facility] Spec Grav, UA 1.020 1 - 1.03 [facility] Urobilinogen, UA 0.2 0.2 - 12 mg/dL [facility] HCG ( test) Ql (U)o n 07-03-2023 Interpretation and review of laboratory results Abnormal [facility] Preg Test, Ur Negative [facility] Urinalysis macro (dipstick) panel (U)on 07-03-2023 Bilirubin, UA Negative Negative - 4(70) +++ mg/dL [facility] Blood, UA Negative Negative - 50 William/mcL [facility] Clarity, UA Clear [facility] Color, UA Yellow [facility] Glucose, UA Negative Negative - 1999(110) ++++ mg/dL [facility] Interpretation and review of laboratory results Normal [facility] Ketones, UA Negative Negative - 160(16) ++++ mg/dL [facility] Leukocytes, UA Negative Negative - 500+++ Gerald/mcL [facility] Nitrite, UA Negative Negative - Positive [facility] pH, UA 5.5 5 - 9 [facility] Protein, UA Negative Negative - 1999(20) ++++ mg/dL [facility] Spec Grav, UA 1.010 1 - 1.03 [facility] Urobilinogen, UA 1.0 0.2 - 12 mg/dL [facility] XR FOOT RT MIN 3 VIEWSon XR [...] PADDY SAPP Date: 2022-08-30 14:42 Normal [facility] CBC AUTO DIFFon 06-28-2022 BASO # 0.0 103/ul Normal 0.0-0.1 [facility] Comment on above: Performed By: #### C BC #### [facility] [address] [place] [address] Dr. Jerald Poon Basophils/100 WBC (Bld) 0.3 % Normal 0.2-2.0 [facility] Comment on above: Performed By: #### C BC #### [facility] [address] [place] [address] Dr. Jerald Poon EO # 0.1 103/ul Normal 0.0-0.7 [facility] Comment on above: Performed By: #### C BC #### [facility] [address] [place] [address] Dr. Jerald Poon Eosinophils/100 WBC (Bld) 1.1 % Normal 0.9-7.0 [facility] Comment on above: Performed By: #### C BC #### [facility] [address] [place] [address] Dr. Jerald Poon Erythrocyte distribution width (RBC) [Ratio] 14.5 % Normal 11.0-15.0 [facility] Comment on above: Performed By: #### C BC #### [facility] [address] [place] [address] Dr. Jerald Poon Hematocrit (Bld) [Volume fraction] 36.7 % Normal 36.0-48.0 [facility] Comment on above: Performed By: #### C BC #### [facility] [address] [place] [address] Dr. Jerald Poon Hemoglobin (Bld) [Mass/Vol] 13.0 g/dL Normal 12.0-16.0 [facility] Comment on above: Performed By: #### C BC #### [facility] [address] [place] [address] Dr. Jerald Poon IG # 0.04 10e3/ul Critically high 0.00-0.03 [facility] Comment on above: Performed By: #### C BC #### [facility] [address] [place] [address] Dr. Jerald Poon IG % 0.3 % Normal 0.0-0.5 [facility] Comment on above: Performed By: #### C BC #### [facility] [address] [place] [address] Dr. Jerald Poon LYMPH # 3.0 103/ul Normal 1.2-3.8 [facility] Comment on above: Performed By: #### C BC #### [facility] [address] [place] [address] Dr. Jerald Poon Lymphocytes/100 WBC (Bld) 26.2 % Normal 20.5-60.0 [facility] Comment on above: Performed By: #### C BC #### [facility] [address] [place] [address] Dr. Jerald Poon MANUAL DIFF REQ NO Normal [facility] Comment on above: Performed By: #### C BC #### [facility] [address] [place] [address] Dr. Jerald Poon MCH (RBC) [Entitic mass] 27.1 pg Normal 26.7-34.0 [facility] Comment on above: Performed By: #### C BC #### [facility] [address] [place] [address] Dr. Jerald Poon MCHC (RBC) [Mass/Vol] 35.4 g/dL Critically high 29.9-35.2 [facility] Comment on above: Performed By: #### C BC #### [facility] [address] [place] [address] Dr. Jerald Poon MCV (RBC) [Entitic vol] 76.6 fL Critically low 81.0-99.0 [facility] Comment on above: Performed By: #### C BC #### [facility] [address] [place] [address] Dr. Jerald Poon MONO # 0.8 103/ul Normal 0.3-0.8 [facility] Comment on above: Performed By: #### C BC #### [facility] [address] [place] [address] Dr. Jerald Poon Monocytes/100 WBC (Bld) 7.0 % Normal 1.7-12.0 [facility] Comment on above: Performed By: #### C BC #### [facility] [address] [place] [address] Dr. Jerald Poon NEUT # 7.5 103/ul Critically high 1.4-6.5 [facility] Comment on above: Performed By: #### C BC #### [facility] [address] [place] [address] Dr. Jerald Poon Neutrophils/100 WBC (Bld) 65.1 % Normal 43.0-75.0 [facility] Comment on above: Performed By: #### C BC #### [facility] [address] [place] [address] Dr. Jerald Poon Platelet mean volume (Bld) [Entitic vol] 10.0 fL Normal 9.5-13.5 [facility] Comment on above: Performed By: #### C BC #### [facility] [address] [place] [address] Dr. Jerald Poon PLT 387 103/ul Normal 150-450 [facility] Comment on above: Performed By: #### C BC #### [facility] [address] [place] [address] Dr. Jerald Poon RBC 4.79 106/ul Normal 4.20-5.40 [facility] Comment on above: Performed By: #### C BC #### [facility] [address] [place] [address] Dr. Jerald Poon WBC 11.6 103/ul Critically high 4.0-11.0 [facility] Comment on above: Performed By: #### C BC #### [facility] [address] [place] [address] Dr. Jerald Poon CULTURE URINEon 06-28-2022 CULTURE URINE Culture Observations: LIGHT GROWTH OF MIXED GENITAL ZACARIAS. NO POTENTIAL PATHOGENS SEEN. Normal [facility] Comment on above: Performed By: #### U RCX #### [facility] [address] [place] [address] Dr. Jerald Poon ER URINE PROFILEon 3 Bilirubin Ql (U) Negative Normal NEGATIVE [facility] Comment on above: Performed By: #### U MICRO, ERUR #### [facility] [address] [place] [address] Dr. Jerald Poon Clarity (U) CLEAR Normal CLEAR [facility] Comment on above: Performed By: #### U MICRO, ERUR #### [facility] [address] [place] [address] Dr. Jerald Poon Color (U) YELLOW Normal YELLOW [facility] Comment on above: Performed By: #### U MICRO, ERUR #### [facility] [address] [place] [address] Dr. Jerald Poon ERUAHD A micrscopic examination will be performed if indicated. Normal [facility] Comment on above: Performed By: #### U MICRO, ERUR #### [facility] [address] [place] [address] Dr. Jerald Poon Glucose Ql (U) Negative Normal NEGATIVE [facility] Comment on above: Performed By: #### U MICRO, ERUR #### [facility] [address] [address] [address] Jerald Poon Hemoglobin Ql (U) Negative Normal NEGATIVE [facility] Comment on above: Performed By: #### U MICRO, ERUR #### [facility] [address] [address] [address] Jerald Poon Ketones Ql (U) 40 mg/dl Abnormal NEGATIVE [facility] Comment on above: Performed By: #### U MICRO, ERUR #### [facility] [address] [place] [address] Dr. Jerald Poon LEUKOCYTES TRACE Abnormal NEGATIVE [facility] Comment on above: Performed By: #### U MICRO, ERUR #### [facility] [address] [address] [address] Jearld Poon Nitrite Ql (U) Negative Normal NEGATIVE [facility] Comment on above: Performed By: #### U MICRO, ERUR #### [facility] [address] [address] [address] Jerald Poon pH (U) 6.0 [pH] Normal 5-9 [facility] Comment on above: Performed By: #### U MICRO, ERUR #### [facility] [address] [place] [address] Dr. Jerald Poon SPEC GRAVITY >=1.030 Abnormal 1.005-<=1.02 5 [facility] Comment on above: Performed By: #### U MICRO, ERUR #### [facility] [address] [address] [address] Jerald Poon UA PROTEIN Negative Normal NEGATIVE/ TRACE [facility] Comment on above: Performed By: #### U MICRO, ERUR #### [facility] [address] [address] [address] Jerald Poon UR MICRO IND INDICATED Normal [facility] Comment on above: Performed By: #### U MICRO, ERUR #### [facility] [address] [place] [address] Dr. Jerald Poon Urobilinogen Qn (U) 0.2 {Lyly'U}/dL Normal 0.2 - 1. 0 [facility] Comment on above: Performed By: #### U MICRO, ERUR #### [facility] [address] [place] [address] Dr. Jerald Poon PREG QUANT HCGon 06-28-2022 HCG QUANT <1 Normal [facility] Comment on above: Performed By: #### P REGQNT #### [facility] [address] [place] [address] Dr. Jerald Poon HCG RANGE SEE BELOW Normal [facility] Comment on above: Result Comment: 5-50 0.2-1 WEEK 50-500 1-2 WEEKS 100-5,000 2-3 WEEKS 500-10,000 3-4 WEEKS 1,000-50,000 4-5 WEEKS 10,000-100,000 5-6 WEEKS 15,000-200,000 6-8 WEEKS 10,000-100,000 2-3 MONTHS Performed By: #### P REGQNT #### [facility] [address] [place] [address] Dr. Jerald Poon PROF CHEM 8 (BAS METB)on Anion gap [Moles/Vol] 14.0 mmol/L Normal [facility] Comment on above: Performed By: #### C BC #### [facility] [address] [place] [address] Dr. Jerald Poon Calcium [Mass/Vol] 9.6 mg/dL Normal 8.5-10.1 [facility] Comment on above: Performed By: #### C BC #### [facility] [address] [place] [address] Dr. Jerald Poon Chloride [Moles/Vol] 101 mmol/L Normal 98-107 [facility] Comment on above: Performed By: #### C BC #### [facility] [address] [place] [address] Dr. Jerald Poon CO2 [Moles/Vol] 25.4 mmol/L Normal 21.0-32.0 [facility] Comment on above: Performed By: #### C BC #### [facility] [address] [place] [address] Dr. Jerald Poon Creatinine [Mass/Vol] 0.92 mg/dL Normal 0.55-1.02 [facility] Comment on above: Performed By: #### C BC #### [facility] [address] [address] [address] Jerald Poon EGFR-AF SENEGALESE >60 Normal >=60 [facility] Comment on above: Performed By: #### C BC #### [facility] [address] [address] [address] Jerald Poon EGFR-NON AF SENEGALESE >60 Normal >=60 [facility] Comment on above: Performed By: #### C BC #### [facility] [address] [address] [address] Jerald Poon Glucose [Mass/Vol] 101 mg/dL Normal 74-106 [facility] Comment on above: Performed By: #### C BC #### [facility] [address] [address] [address] Jerald Poon Potassium [Moles/Vol] 3.4 mmol/L Critically low 3.5-5.1 [facility] Comment on above: Performed By: #### C BC #### [facility] [address] [address] [address] Jerald Poon Sodium [Moles/Vol] 137 mmol/L Normal 136-145 [facility] Comment on above: Performed By: #### C BC #### [facility] [address] [address] [address] Jerald Poon Urea nitrogen [Mass/Vol] 11.0 mg/dL Normal 7.0-18.0 [facility] Comment on above: Performed By: #### C BC #### [facility] [address] [address] [address] Jerald Poon Urea nitrogen/Creatinine [Mass ratio] 12.0 mg/mg Normal [facility] Comment on above: Performed By: #### C BC #### [facility] [address] [address] [address] Jerald Poon TSHon 06-28-2022 TSH 1.319 uIU/mL Normal 0.358-3.740 [facility] Comment on above: Performed By: #### C BC #### [facility] [address] [address] [address] Jerald Poon URINE MICROSCOPIC ONLYon BACTERIA SMALL Abnormal NONE SEEN [facility] Comment on above: Performed By: #### U MICRO, ERUR #### [facility] [address] [place] [address] Dr. Jerald Poon Bacteria identified Cx Nom (U) INDICATED Normal [facility] Comment on above: Performed By: #### U MICRO, ERUR #### [facility] [address] [place] [address] Dr. Jerald Poon CAST NONE SEEN Normal NONE SEEN [facility] Comment on above: Performed By: #### U MICRO, ERUR #### [facility] [address] [place] [address] Dr. Jerald Poon Crystals LM Nom (Urine sed) NONE SEEN Normal NONE SEEN [facility] Comment on above: Performed By: #### U MICRO, ERUR #### [facility] [address] [place] [address] Dr. Jerald Poon Epithelial cells LM Ql (Urine sed) FEW Abnormal NONE SEEN /RARE [facility] Comment on above: Performed By: #### U MICRO, ERUR #### [facility] [address] [place] [address] Dr. Jerald Poon MUCOUS NONE SEEN Normal NONE SEEN [facility] Comment on above: Performed By: #### U MICRO, ERUR #### [facility] [address] [address] [address] Jerald Poon RBC NONE SEEN Abnormal 0-2 [facility] Comment on above: Performed By: #### U MICRO, ERUR #### [facility] [address] [place] [address] Dr. Jerald Poon WBC 2-5 Abnormal NONE SEEN [facility] Comment on above: Performed By: #### U MICRO, ERUR #### [facility] [address] [place] [address] Dr. Jerald Poon CBC AUTO DIFFon 10-31-2022 BASO # 0.0 103/ul Normal 0.0-0.1 [facility] Comment on above: Performed By: #### C BC #### [facility] [address] [place] [address] Dr. Jerald Poon Basophils/100 WBC (Bld) 0.5 % Normal 0.2-2.0 [facility] Comment on above: Performed By: #### C BC #### [facility] [address] [place] [address] Dr. Jerald Poon EO # 0.1 103/ul Normal 0.0-0.7 [facility] Comment on above: Performed By: #### C BC #### [facility] [address] [place] [address] Dr. Jerald Poon Eosinophils/100 WBC (Bld) 1.7 % Normal 0.9-7.0 [facility] Comment on above: Performed By: #### C BC #### [facility] [address] [place] [address] Dr. Jerald Poon Erythrocyte distribution width (RBC) [Ratio] 14.2 % Normal 11.0-15.0 [facility] Comment on above: Performed By: #### C BC #### [facility] [address] [place] [address] Dr. Jerald Poon Hematocrit (Bld) [Volume fraction] 36.7 % Normal 36.0-48.0 [facility] Comment on above: Performed By: #### C BC #### [facility] [address] [place] [address] Dr. Jerald Poon Hemoglobin (Bld) [Mass/Vol] 12.1 g/dL Normal 12.0-16.0 [facility] Comment on above: Performed By: #### C BC #### [facility] [address] [place] [address] Dr. Jerald Poon IG # 0.01 10e3/ul Normal 0.00-0.03 [facility] Comment on above: Performed By: #### C BC #### [facility] [address] [place] [address] Dr. Jerald Poon IG % 0.1 % Normal 0.0-0.5 [facility] Comment on above: Performed By: #### C BC #### [facility] [address] [place] [address] Dr. Jerald Poon LYMPH # 2.3 103/ul Normal 1.2-3.8 [facility] Comment on above: Performed By: #### C BC #### [facility] [address] [place] [address] Dr. Jerald Poon Lymphocytes/100 WBC (Bld) 30.8 % Normal 20.5-60.0 [facility] Comment on above: Performed By: #### C BC #### [facility] [address] [place] [address] Dr. Jerald Poon MANUAL DIFF REQ NO Normal [facility] Comment on above: Performed By: #### C BC #### [facility] [address] [place] [address] Dr. Jerald Poon MCH (RBC) [Entitic mass] 27.3 pg Normal 26.7-34.0 [facility] Comment on above: Performed By: #### C BC #### [facility] [address] [place] [address] Dr. Jerald Poon MCHC (RBC) [Mass/Vol] 33.0 g/dL Normal 29.9-35.2 [facility] Comment on above: Performed By: #### C BC #### [facility] [address] [place] [address] Dr. Jerald Poon MCV (RBC) [Entitic vol] 82.7 fL Normal 81.0-99.0 [facility] Comment on above: Performed By: #### C BC #### [facility] [address] [place] [address] Dr. Jerald Poon MONO # 0.8 103/ul Normal 0.3-0.8 [facility] Comment on above: Performed By: #### C BC #### [facility] [address] [place] [address] Dr. Jerald Poon Monocytes/100 WBC (Bld) 10.6 % Normal 1.7-12.0 [facility] Comment on above: Performed By: #### C BC #### [facility] [address] [place] [address] Dr. Jerald Poon NEUT # 4.2 103/ul Normal 1.4-6.5 [facility] Comment on above: Performed By: #### C BC #### [facility] [address] [place] [address] Dr. Jerald Poon Neutrophils/100 WBC (Bld) 56.3 % Normal 43.0-75.0 [facility] Comment on above: Performed By: #### C BC #### [facility] [address] [place] [address] Dr. Jerald Poon Platelet mean volume (Bld) [Entitic vol] 10.2 fL Normal 9.5-13.5 [facility] Comment on above: Performed By: #### C BC #### [facility] [address] [place] [address] Dr. Jerald Poon PLT 375 103/ul Normal 150-450 [facility] Comment on above: Performed By: #### C BC #### [facility] [address] [place] [address] Dr. Jerald Poon RBC 4.44 106/ul Normal 4.20-5.40 [facility] Comment on above: Performed By: #### C BC #### [facility] [address] [place] [address] Dr. Jerald Poon WBC 7.5 103/ul Normal 4.0-11.0 [facility] Comment on above: Performed By: #### C BC #### [facility] [address] [place] [address] Dr. Jerald Poon ER URINE PROFILEon 2 Bilirubin Ql (U) Negative Normal NEGATIVE [facility] Comment on above: Performed By: #### C BC #### [facility] [address] [place] [address] Dr. Jerald Poon Clarity (U) CLEAR Normal CLEAR [facility] Comment on above: Performed By: #### C BC #### [facility] [address] [place] [address] Dr. Jerald Poon Color (U) YELLOW Normal YELLOW [facility] Comment on above: Performed By: #### C BC #### [facility] [address] [place] [address] Dr. Jerald CEBALLOS A micrscopic examination will be performed if indicated. Normal [facility] Comment on above: Performed By: #### C BC #### [facility] [address] [place] [address] Dr. Jerald Poon Glucose Ql (U) Negative Normal NEGATIVE [facility] Comment on above: Performed By: #### C BC #### [facility] [address] [address] [address] Jerald Poon Hemoglobin Ql (U) Negative Normal NEGATIVE [facility] Comment on above: Performed By: #### C BC #### [facility] [address] [place] [address] Dr. Jerald Poon Ketones Ql (U) Negative Normal NEGATIVE [facility] Comment on above: Performed By: #### C BC #### [facility] [address] [place] [address] Dr. Jerald Poon LEUKOCYTES Negative Normal NEGATIVE [facility] Comment on above: Performed By: #### C BC #### [facility] [address] [place] [address] Dr. Jerald Poon Nitrite Ql (U) Negative Normal NEGATIVE [facility] Comment on above: Performed By: #### C BC #### [facility] [address] [place] [address] Dr. Jerald Poon pH (U) 7.0 [pH] Normal 5-9 [facility] Comment on above: Performed By: #### C BC #### [facility] [address] [place] [address] Dr. Jerald Poon SPEC GRAVITY 1.025 Normal 1.005-<=1.02 5 [facility] Comment on above: Performed By: #### C BC #### [facility] [address] [place] [address] Dr. Jerald Poon UA PROTEIN Negative Normal NEGATIVE/ TRACE [facility] Comment on above: Performed By: #### C BC #### [facility] [address] [address] [address] Jerald Poon UR MICRO IND NOT INDICATED Normal [facility] Comment on above: Performed By: #### C BC #### [facility] [address] [address] [address] Jerald Poon Urobilinogen Qn (U) 1.0 {Lyly'U}/dL Normal 0.2 - 1. 0 [facility] Comment on above: Performed By: #### C BC #### [facility] [address] [place] [address] Dr. Jerald Poon PREG QUANT HCGon 04-01-2022 HCG QUANT 1 mIU/mL Normal [facility] Comment on above: Performed By: #### P REGQNT #### [facility] [address] [place] [address] Dr. Jerald Poon HCG RANGE SEE BELOW Normal [facility] Comment on above: Result Comment: 5-50 0.2-1 WEEK 50-500 1-2 WEEKS 100-5,000 2-3 WEEKS 500-10,000 3-4 WEEKS 1,000-50,000 4-5 WEEKS 10,000-100,000 5-6 WEEKS 15,000-200,000 6-8 WEEKS 10,000-100,000 2-3 MONTHS Performed By: #### P REGQNT #### [facility] [address] [place] [address] Dr. Jerald Poon PROF 14(COMP METB)on 022 Albumin [Mass/Vol] 3.6 g/dL Normal 3.4-5.0 [facility] Comment on above: Performed By: #### C MP #### [facility] [address] [place] [address] Dr. Jerald Poon Albumin/Globulin [Mass ratio] 0.8 {ratio} Normal [facility] Comment on above: Performed By: #### C MP #### [facility] [address] [place] [address] Dr. Jerald Poon ALP [Catalytic activity/Vol] 65 U/L Normal 46-116 [facility] Comment on above: Performed By: #### C MP #### [facility] [address] [address] [address] Jerald Poon ALT [Catalytic activity/Vol] 22 U/L Normal 14-59 [facility] Comment on above: Performed By: #### C MP #### [facility] [address] [address] [address] Jerald Poon Anion gap [Moles/Vol] 10.3 mmol/L Normal [facility] Comment on above: Performed By: #### C MP #### [facility] [address] [address] [address] Jerald Poon AST [Catalytic activity/Vol] 14 U/L Critically low 15-37 [facility] Comment on above: Performed By: #### C MP #### [facility] [address] [address] [address] Jerald Poon Bilirubin [Mass/Vol] 0.1 mg/dL Critically low 0.2-1.0 [facility] Comment on above: Performed By: #### C MP #### [facility] [address] [address] [address] Jerald Poon Calcium [Mass/Vol] 8.6 mg/dL Normal 8.5-10.1 [facility] Comment on above: Performed By: #### C MP #### [facility] [address] [address] [address] Jerald Poon Chloride [Moles/Vol] 104 mmol/L Normal 98-107 [facility] Comment on above: Performed By: #### C MP #### [facility] [address] [address] [address] Jerald Poon CO2 [Moles/Vol] 28.1 mmol/L Normal 21.0-32.0 [facility] Comment on above: Performed By: #### C MP #### [facility] [address] [address] [address] Jerald Poon Creatinine [Mass/Vol] 0.99 mg/dL Normal 0.55-1.02 [facility] Comment on above: Performed By: #### C MP #### [facility] [address] [address] [address] Jerald Poon EGFR-AF SENEGALESE >60 Normal >=60 [facility] Comment on above: Performed By: #### C MP #### [facility] [address] [address] [address] Jerald Poon EGFR-NON AF SENEGALESE >60 Normal >=60 [facility] Comment on above: Performed By: #### C MP #### [facility] [address] [address] [address] Jerald Poon Globulin (S) [Mass/Vol] 4.5 g/dL Normal [facility] Comment on above: Performed By: #### C MP #### [facility] [address] [address] [address] Jerald Poon Glucose [Mass/Vol] 94 mg/dL Normal 74-106 [facility] Comment on above: Performed By: #### C MP #### [facility] [address] [address] [address] Jerald Poon Potassium [Moles/Vol] 3.4 mmol/L Critically low 3.5-5.1 [facility] Comment on above: Performed By: #### C MP #### [facility] [address] [address] [address] Jerald Poon Protein [Mass/Vol] 8.1 g/dL Normal 6.4-8.2 [facility] Comment on above: Performed By: #### C MP #### [facility] [address] [address] [address] Jerald Poon Sodium [Moles/Vol] 139 mmol/L Normal 136-145 [facility] Comment on above: Performed By: #### C MP #### [facility] [address] [address] [address] Jerald Poon Urea nitrogen [Mass/Vol] 8.0 mg/dL Normal 7.0-18.0 [facility] Comment on above: Performed By: #### C MP #### [facility] [address] [address] [address] Jerald Poon Urea nitrogen/Creatinine [Mass ratio] 8.1 mg/mg Normal [facility] Comment on above: Performed By: #### C #### [facility] [id number] Jerald Poon US PELVIS TRANSVAGon 022 [...] LUH MANRIQUE Date: 2022-04-01 21:55 Normal [facility] Automated erythrocytes count in urine sediment (number/area)Ordered By: Anders Sesay on 10-19-2021 RBC Auto (Urine sed) [#/Area] 1-2 [HPF] [facility] Automated leukocytes count i n urine sediment (number/area)Ordered By: Anders Sesay on 10-19-2021 WBC Auto (Urine sed) [#/Area] 3-4 [HPF] [facility] Basophils Auto (Bld) [#/Vol] Ordered By: Anders Sesay on 10-19-2021 Basophils (Bld) [#/Vol] 0.1 10*3/uL 0.0-0.2 [facility] Basophils/100 WBC Auto (Bld) Ordered By: Anders Sesay on 10-19-2021 Basophils/100 WBC (Bld) 0.6 % [facility] Bilirubin Test strip Ql (U)O rdered By: Anders Sesay on 10-19-2021 Bilirubin Ql (U) Negative Negative [facility] Blood hemoglobin measurement (mass/volume)Ordered By: Anders Sesay on 10-19-2021 Hemoglobin (Bld) [Mass/Vol] 13.2 g/dL 11.8-15.4 [facility] Blood leukocytes automated c ount (number/volume)Ordered By: Anders Sesay on 10-19-2021 WBC (Bld) [#/Vol] 9.1 10*3/uL 4.5-11.0 [facility] Body fluid albumin measureme nt (mass/volume)Ordered By: Anders Sesay on 10-19-2021 Albumin (Body fld) [Mass/Vol] 3.8 g/dL 3.2-5.5 [facility] Color Auto (U)Ordered By: Jason Sesay on 10-19-2021 Color (U) Yellow Yellow [facility] Creatinine and Glomerular fi ltration rate.predicted panel (S/P/Bld)Ordered By: Anders Sesay on 10-19-2021 Creatinine [Mass/Vol] 0.87 mg/dL 0.44-1.03 [facility] Eosinophils Auto (Bld) [#/Vo l]Ordered By: Anders Sesay on 10-19-2021 Eosinophils (Bld) [#/Vol] 0.1 10*3/uL 0.0-0.45 [facility] Eosinophils/100 WBC Auto (Bl d)Ordered By: Anders Sesay on 10-19-2021 Eosinophils/100 WBC (Bld) 0.9 % [facility] Erythrocyte distribution wid th Auto (RBC) [Ratio]Ordered By: Anders Sesay on 10-19-2021 Erythrocyte distribution width (RBC) [Ratio] 16.4 % 11.9-15.3 [facility] Estimated glomerular filtrat ion rate (GFR) non- AmericanOrdered By: Anders Sesay on 10-19-2021 GFR/1.73 sq M.predicted among non-blacks MDRD (S/P/Bld) [Vol rate/Area] > 60 mL/Min [facility] Globulin Calc (S) [Mass/Vol] Ordered By: Anders Sesay on 10-19-2021 Globulin (S) [Mass/Vol] 4.3 g/dL [facility] HCG ( test) IA.rapi d Ql (U)Ordered By: Anders Sesay on 10-19-2021 HCG ( test) Ql (U) Negative [facility] Hematocrit Auto (Bld) [Volum e fraction]Ordered By: Anders Sesay on 10-19-2021 Hematocrit (Bld) [Volume fraction] 40.2 % 34.0-46.4 [facility] Ketones Auto test strip (U) [Mass/Vol]Ordered By: Anders Sesay on 10-19-2021 Ketones (U) [Mass/Vol] Negative Negative [facility] - Hematology and Cell countsOrdered By: Anders Sesay on 10-19-2021 Nucleated RBC/100 WBC (Bld) [Ratio] 0.2 % 0-0.5 [facility] - UrinalysisOrder ed By: Anders Sesay on 10-19-2021 Hyaline casts LM Ql (Urine sed) 0-8 [LPF] [facility] Lymphocytes Auto (Bld) [#/Vo l]Ordered By: Anders Sesay on 10-19-2021 Lymphocytes (Bld) [#/Vol] 2.4 10*3/uL 1.00-4.8 [facility] Lymphocytes/100 WBC Auto (Bl d)Ordered By: Anders Sesay on 10-19-2021 Lymphocytes/100 WBC (Bld) 26.7 % [facility] MCH Auto (RBC) [Entitic mass ]Ordered By: Anders Sesay on 10-19-2021 MCH (RBC) [Entitic mass] 26.3 pg 24.7-34.3 [facility] MCHC Auto (RBC) [Mass/Vol]Or dered By: Anders Sesay on 10-19-2021 MCHC (RBC) [Mass/Vol] 32.9 g/dL 32.0-35.0 [facility] MCV Auto (RBC) [Entitic vol] Ordered By: Anders Sesay on 10-19-2021 MCV (RBC) [Entitic vol] 80.1 fL 80-100 [facility] Monocytes Auto (Bld) [#/Vol] Ordered By: Anders Sesay on 10-19-2021 Monocytes (Bld) [#/Vol] 0.7 10*3/uL 0.0-0.8 [facility] Monocytes/100 WBC Auto (Bld) Ordered By: Anders Sesay on 10-19-2021 Monocytes/100 WBC (Bld) 7.6 % [facility] Neutrophils Auto (Bld) [#/Vo l]Ordered By: Anders Sesay on 10-19-2021 Neutrophils (Bld) [#/Vol] 5.8 10*3/uL 1.8-7.7 [facility] Neutrophils/100 WBC Auto (Bl d)Ordered By: Anders Sesay on 10-19-2021 Neutrophils/100 WBC (Bld) 64.2 % [facility] Nitrite Test strip Ql (U)Ord ered By: Anders Sesay on 10-19-2021 Nitrite Ql (U) Negative Negative [facility] No Panel InformationOrdered By: Anders Sesay on 10-19-2021 Estimated GFR () > 60 mL/Min [facility] Comment on above: GFR estimated refere nce range: According to KDOQI guidelines, <60 ml/min/1.73m2 is sufficient to diagnose a patient with chronic kidney disease. Pharmacy Creatinine Clearance (Chem 147.41 [facility] Platelet mean volume Auto (B ld) [Entitic vol]Ordered By: Anders Sesay on 10-19-2021 Platelet mean volume (Bld) [Entitic vol] 8.6 fL 6.3-10.7 [facility] Platelets Auto (Bld) [#/Vol] Ordered By: Anders Sesay on 10-19-2021 Platelets (Bld) [#/Vol] 395 10*3/uL 150-450 [facility] Protein Auto test strip (U) [Mass/Vol]Ordered By: Anders Sesay on 10-19-2021 Protein (U) [Mass/Vol] Negative Negative [facility] Protein [Mass/volume] in Ser um or PlasmaOrdered By: Anders Sesay on 10-19-2021 Protein [Mass/Vol] 8.1 g/dL 6.1-7.9 [facility] RBC Auto (Bld) [#/Vol]Ordere d By: Anders Sesay on 10-19-2021 RBC (Bld) [#/Vol] 5.02 10*6/uL 3.60-5.00 [facility] Serum or plasma alanine ayoub otransferase measurement without P-5'-P (enzymatic activiOrdered By: Anders Sesay on 10-19-2021 ALT No additional P-5'-P [Catalytic activity/Vol] 20 U/L 10-60 [facility] Serum or plasma albumin/glob ulin mass ratioOrdered By: Anders Sesay on 10-19-2021 Albumin/Globulin [Mass ratio] 0.9 {ratio} [facility] Serum or plasma alkaline cosmo sphatase measurement (enzymatic activity/volume)Ordered By: Anders Sesay on 10-19-2021 ALP [Catalytic activity/Vol] 55 U/L 32-92 [facility] Serum or plasma aspartate am inotransferase measurement (enzymatic activity/volume)Ordered By: Anders Sesay on 10-19-2021 AST [Catalytic activity/Vol] 17 U/L 10-42 [facility] Serum or plasma calcium joann urement (mass/volume)Ordered By: Anders Sesay on 10-19-2021 Calcium [Mass/Vol] 9.1 mg/dL 8.2-10.2 [facility] Serum or plasma chloride adan surement (moles/volume)Ordered By: Anders Sesay on 10-19-2021 Chloride [Moles/Vol] 103 mmol/L 95-114 [facility] Serum or plasma glucose joann urement (mass/volume)Ordered By: Anders Sesay on 10-19-2021 Glucose [Mass/Vol] 105 mg/dL 70-100 [facility] Comment on above: ADA recommended refe rence range Random Glucose Reference Range is dependent on time and content of last meal. Glucose of more than 200 mg/dL in a nonstressed, ambulatory subject supports the diagnosis of Diabetes Mellitus. Serum or plasma potassium me asurement (moles/volume)Ordered By: Anders Sesay on 10-19-2021 Potassium [Moles/Vol] 3.7 mmol/L 3.5-5.1 [facility] Serum or plasma sodium measu rement (moles/volume)Ordered By: Anders Sesay on 10-19-2021 Sodium [Moles/Vol] 137 mmol/L 136-146 [facility] Serum or plasma total biliru bin measurement (mass/volume)Ordered By: Anders Sesay on 10-19-2021 Bilirubin [Mass/Vol] 0.3 mg/dL 0.3-1.2 [facility] Serum or plasma total carbon dioxide measurement (moles/volume)Ordered By: Anders Sesay on 10-19-2021 CO2 [Moles/Vol] 24.2 mmol/L 22.0-30.0 [facility] Serum or plasma urea nitroge n measurement (mass/volume)Ordered By: Anders Sesay on 10-19-2021 Urea nitrogen [Mass/Vol] 7 mg/dL 9-23 [facility] Specific gravity Auto test s trip (U) [Rel density]Ordered By: Anders Sesay on 10-19-2021 Specific gravity (U) [Rel density] 1.014 1.001-1.030 [facility] Squamous epithelial cells de tection in urine sediment by light microscopyOrdered By: Anders Sesay on 10-19-2021 Epithelial cells.squamous LM Ql (Urine sed) 3-4 [HPF] [facility] Urine bacteria detection by automated methodOrdered By: Anders Sesay on 10-19-2021 Bacteria Auto Ql (U) 1+ None Seen [facility] Urine clarity by refractomet ry automatedOrdered By: Anders Sesay on 10-19-2021 Clarity Refractometry automated (U) Clear Clear [facility] Urine glucose measurement by automated test strip (mass/volume)Ordered By: Anders Sesay on 10-19-2021 Glucose Auto test strip (U) [Mass/Vol] Normal mg/dL Normal [facility] Urine hemoglobin detection b y automated test stripOrdered By: Anders Sesay on 10-19-2021 Hemoglobin Auto test strip Ql (U) Negative Negative [facility] Urine leukocyte esterase det ection by automated test stripOrdered By: Anders Sesay on 10-19-2021 Leukocyte esterase Auto test strip Ql (U) 1+ Negative [facility] Urobilinogen Auto test strip (U) [Mass/Vol]Ordered By: Anders Sesay on 10-19-2021 Urobilinogen (U) [Mass/Vol] Normal mg/dL Normal [facility] pH Auto test strip (U)Ordere d By: Anders Sesay on 10-19-2021 pH (U) 5.5 [pH] 5.0-9.0 [facility] US DUP ABD PEL RETRO SCROT [...] by: Raghavendra Frazier MD Signed by: Raghavendra rFazier MD 07/14/20 Edited Result - FINAL Normal [facility] US NON OB TRANSVAGINALon US NON [...] MD 07/14/20 Edited Result - FINAL Normal [facility] Chlamydia/GC,DNA Ampon 07-10 Chlamydia Probe Negative Normal NEG [facility] Comment on above: Result Comment: CHLA [...] Performed By: #### U HCG, UAMIC #### [employer] [address] [place], [place] [address] Dining Service Inspector: Campos Avilez MD Gonorrhea Probe Negative Normal NEG [facility] Comment on above: Result Comment: NEIS [...] Performed By: #### U HCG, UAMIC #### [facility] [address] [place] [address] Dining Service Inspector: Campos Avilez MD Cult,Urineon 07-09-2020 Cult,Urine Specimen Description .CLEAN CATCH URINE Special Requests NOT REPORTED Culture ESCHERICHIA COLI >[id number] CFU/ML Report Status FINAL 07/09/2020 SUSCEPTIBILITY Organism [...] <=20 SUSCEPTIBLE Piperacillin/Tazobac her <=4 SUSCEPTIBLE Normal [facility] Comment on above: Performed By: #### U HCG, UAMIC #### [address] [address] Dining Service Inspector: Campos Avilez MD ABO/Rh(D)on 07-08-2020 ABO/Rh(D) Positive Normal [facility] Comment on above: Performed By: #### A [facility] #### [place] [address] Dining Service Inspector: Campos Avilez MD CBC with Diffon 07-08-2020 Abs. Basophil 0.04 k/uL Normal 0.00-0.20 [facility] Comment on above: Performed By: #### C P, CDP, COSMO, BHCG, MG, VD25, LIP #### [facility] [address] [place] [address] Dining Service Inspector: Campos Avilez MD Abs.Imm.Granulocyte 0.04 k/uL Normal 0.00-0.30 [facility] Comment on above: Performed By: #### C P, CDP, COSMO, BHCG, MG, VD25, LIP #### [facility] [address] [place] [address] Dining Service Inspector: Campos Avilez MD Abs.Neutrophil (Seg) 8.16 k/uL High 1.80-8.00 [facility] Comment on above: Performed By: #### C P, CDP, COSMO, BHCG, MG, VD25, LIP #### [address] [address] Dining Service Inspector: Campos Avilez MD Basophils/100 WBC (Bld) 0 % Normal 0-2 [facility] Comment on above: Performed By: #### C P, CDP, COSMO, BHCG, MG, VD25, LIP #### [place] [address] Dining Service Inspector: Campos Avilez MD Eosinophils (Bld) [#/Vol] 0.10 10*3/uL Normal 0.00-0.44 [facility] Comment on above: Performed By: #### C P, CDP, COSMO, BHCG, MG, VD25, LIP #### [place] [address] Dining Service Inspector: Campos Avilez MD Eosinophils/100 WBC (Bld) 1 % Normal 1-4 [facility] Comment on above: Performed By: #### C P, CDP, COSMO, BHCG, MG, VD25, LIP #### [place] [address] Dining Service Inspector: Campos Avilez MD Erythrocyte distribution width (RBC) [Ratio] 14.0 % Normal 11.8-14.4 [facility] Comment on above: Performed By: #### C P, CDP, COSMO, BHCG, MG, VD25, LIP #### [place] [address] Dining Service Inspector: Campos Avilez MD Hematocrit (Bld) [Volume fraction] 34.3 % Low 36.3-47.1 [facility] Comment on above: Performed By: #### C P, CDP, COSMO, BHCG, MG, VD25, LIP #### [address] [address] Dining Service Inspector: Campos Avilez MD Hemoglobin (Bld) [Mass/Vol] 11.1 g/dL Low 11.9-15.1 [facility] Comment on above: Performed By: #### C P, CDP, COSMO, BHCG, MG, VD25, LIP #### [address] [address] Dining Service Inspector: Campos Avilez MD Immature granulocytes (Bld) [#/Vol] 0 % Normal 0 [facility] Comment on above: Performed By: #### C P, CDP, COSMO, BHCG, MG, VD25, LIP #### [address] [address] Dining Service Inspector: Campos Avilez MD Lymphocytes (Bld) [#/Vol] 1.77 10*3/uL Normal 1.20-5.20 [facility] Comment on above: Performed By: #### C P, CDP, COSMO, BHCG, MG, VD25, LIP #### [place] [address] Dining Service Inspector: Campos Avilez MD Lymphocytes/100 WBC (Bld) 16 % Low 25-45 [facility] Comment on above: Performed By: #### C P, CDP, COSMO, BHCG, MG, VD25, LIP #### [address] [address] Dining Service Inspector: Campos Avilez MD MCH (RBC) [Entitic mass] 26.6 pg Normal 25.0-35.0 [facility] Comment on above: Performed By: #### C P, CDP, COSMO, BHCG, MG, VD25, LIP #### [address] [address] Dining Service Inspector: Campos Avilez MD MCHC (RBC) [Mass/Vol] 32.4 g/dL Normal 28.4-34.8 [facility] Comment on above: Performed By: #### C P, CDP, COSMO, BHCG, MG, VD25, LIP #### [address] [address] Dining Service Inspector: Campos Avliez MD MCV (RBC) [Entitic vol] 82.3 fL Normal 78.0-102.0 [facility] Comment on above: Performed By: #### C P, CDP, COSMO, BHCG, MG, VD25, LIP #### [address] [address] Dining Service Inspector: Campos Avilez MD Monocytes (Bld) [#/Vol] 0.73 10*3/uL Normal 0.10-1.40 [facility] Comment on above: Performed By: #### C P, CDP, COSMO, BHCG, MG, VD25, LIP #### [address] [address] Dining Service Inspector: Campos Avilez MD Monocytes/100 WBC (Bld) 7 % Normal 2-8 [facility] Comment on above: Performed By: #### C P, CDP, COSMO, BHCG, MG, VD25, LIP #### [address] [address] Dining Service Inspector: Campos Avilez MD Neutrophil (Seg) 75 % High 34-64 [facility] Comment on above: Performed By: #### C P, CDP, COSMO, BHCG, MG, VD25, LIP #### [address] [address] Dining Service Inspector: Campos Avilez MD NRBC Automated 0.0 per 100 WBC Normal 0.0 [facility] Comment on above: Performed By: #### C P, CDP, COSMO, BHCG, MG, VD25, LIP #### [address] [address] Dining Service Inspector: Campos Avilez MD Platelet mean volume (Bld) [Entitic vol] 11.8 fL Normal 8.1-13.5 [facility] Comment on above: Performed By: #### C P, CDP, COSMO, BHCG, MG, VD25, LIP #### [address] [address] Dining Service Inspector: Campos Avilez MD Platelets (Bld) [#/Vol] 288 10*3/uL Normal 138-453 [facility] Comment on above: Performed By: #### C P, CDP, COSMO, BHCG, MG, VD25, LIP #### [address] [address] Dining Service Inspector: Campos Avilez MD RBC (Bld) [#/Vol] 4.17 10*6/uL Normal 3.95-5.11 [facility] Comment on above: Performed By: #### C P, CDP, COSMO, BHCG, MG, VD25, LIP #### [facility] [address] [place] [address] Dining Service Inspector: Campos Avilez MD WBC (Bld) [#/Vol] 10.8 10*3/uL Normal 4.5-13.5 [facility] Comment on above: Performed By: #### C P, CDP, COSMO, BHCG, MG, VD25, LIP #### [address] [address] Dining Service Inspector: Campos Avilez MD Auto Diff Performed NOT REPORTED Normal [facility] Comment on above: Performed By: #### C P, CDP, COSMO, BHCG, MG, VD25, LIP #### [facility] [address] [place] [address] Dining Service Inspector: Campos Avilez MD Platelets (Bld) [#/Vol] NOT REPORTED Normal [facility] Comment on above: Performed By: #### C P, CDP, COSMO, BHCG, MG, VD25, LIP #### [address] [place] [address] Dining Service Inspector: Campos Avilez MD RBC morphology finding Nom (Bld) NOT REPORTED Normal [facility] Comment on above: Performed By: #### C P, CDP, COSMO, BHCG, MG, VD25, LIP #### [address] [place] [address] Dining Service Inspector: Campos Avilez MD WBC Morphology NOT REPORTED Normal [facility] Comment on above: Performed By: #### C P, CDP, COSMO, BHCG, MG, VD25, LIP #### [address] [address] Dining Service Inspector: Campos Avilez MD Calcium, Ionicon 07-08-2020 Calcium [Mass/Vol] 1.18 mmol/L Normal 1.13-1.33 [facility] Comment on above: Performed By: #### I OCAL #### [address] [address] Dining Service Inspector: Campos Avilez MD Calcium, Ionizedon Calcium [Mass/Vol] 1.18 mmol/L 1.13 - 1. 33 mmol/L [facility] [place] Comp Metabolic Profon 2020 (cont.) Normal [facility] Comment on above: Result Comment: Aver age GFR for <20 years old not available. Chronic Kidney Disease: <60 mL/min/1.73sq m Kidney failure: <15 mL/min/1.73sq m eGFR calculated using average adult body mass. Additional eGFR calculator available at: http://www.[employer]el/multiple_crcl_2012.htm Performed By: #### C P, CDP, COSMO, BHCG, MG, VD25, LIP #### [address] [place] [address] Dining Service Inspector: Campos Avilez MD Albumin [Mass/Vol] 2.3 g/dL Low 3.5-5.2 [facility] Comment on above: Performed By: #### C P, CDP, COSMO, BHCG, MG, VD25, LIP #### [address] [address] Dining Service Inspector: Campos Avilez MD Albumin/Globulin [Mass ratio] 0.9 {ratio} Low 1.0-2.5 [facility] Comment on above: Performed By: #### C P, CDP, COSMO, BHCG, MG, VD25, LIP #### [address] [address] Dining Service Inspector: Campos Avilez MD Alkaline Phos 41 U/L Normal 35-104 [facility] Comment on above: Result Comment: SPEC IMEN MODERATELY HEMOLYZED, RESULTS MAY BE ADVERSELY AFFECTED Performed By: #### C P, CDP, COSMO, BHCG, MG, VD25, LIP #### [address] [address] Dining Service Inspector: Campos Avilez MD ALT [Catalytic activity/Vol] 11 U/L Normal 5-33 [facility] Comment on above: Result Comment: SPEC IMEN MODERATELY HEMOLYZED, RESULTS MAY BE ADVERSELY AFFECTED Performed By: #### C P, CDP, COSMO, BHCG, MG, VD25, LIP #### [address] [address] Dining Service Inspector: Campos Avilez MD Anion gap [Moles/Vol] 9 mmol/L Normal 9-17 [facility] Comment on above: Performed By: #### C P, CDP, COSMO, BHCG, MG, VD25, LIP #### [address] [address] Dining Service Inspector: Campos Avilez MD AST [Catalytic activity/Vol] 28 U/L Normal <32 [facility] Comment on above: Result Comment: SPEC IMEN MODERATELY HEMOLYZED, RESULTS MAY BE ADVERSELY AFFECTED Performed By: #### C P, CDP, COSMO, BHCG, MG, VD25, LIP #### [address] [address] Dining Service Inspector: Campos Avilez MD Bilirubin Ql (U) <0.10 Low 0.3-1.2 [facility] Comment on above: Performed By: #### C P, CDP, COSMO, BHCG, MG, VD25, LIP #### [address] [address] Dining Service Inspector: Campos Avilez MD Calcium [Mass/Vol] 5.5 mg/dL Critically low 8.6-10.4 [facility] Comment on above: Performed By: #### C P, CDP, COSMO, BHCG, MG, VD25, LIP #### [address] [address] Dining Service Inspector: Campos Avilez MD Chloride [Moles/Vol] 118 mmol/L High 98-107 [facility] Comment on above: Performed By: #### C P, CDP, COSMO, BHCG, MG, VD25, LIP #### [address] [address] Dining Service Inspector: Campos Avilez MD CO2 [Moles/Vol] 14 mmol/L Low 20-31 [facility] Comment on above: Performed By: #### C P, CDP, COSMO, BHCG, MG, VD25, LIP #### [address] [address] Dining Service Inspector: Campos Avilez MD Creatinine [Mass/Vol] 0.60 mg/dL Normal 0.50-0.90 [facility] Comment on above: Performed By: #### C P, CDP, COSMO, BHCG, MG, VD25, LIP #### [address] [address] Dining Service Inspector: Campos Avilez MD GFR,non Amer Pediatric GFR requires additional information. Refer to NKDEP website for Normal >60 [facility] Comment on above: Result Comment: calc ulator. Performed By: #### C P, CDP, COSMO, BHCG, MG, VD25, LIP #### [address] [address] Dining Service Inspector: Campos Avilez MD Glucose [Mass/Vol] 84 mg/dL Normal 70-99 [facility] Comment on above: Performed By: #### C P, CDP, COSMO, BHCG, MG, VD25, LIP #### [address] [address] Dining Service Inspector: Campos Avilez MD Potassium [Moles/Vol] 5.1 mmol/L Normal 3.7-5.3 [facility] Comment on above: Result Comment: SPEC IMEN MODERATELY HEMOLYZED, RESULTS MAY BE ADVERSELY AFFECTED Performed By: #### C P, CDP, COSMO, BHCG, MG, VD25, LIP #### [address] [address] Dining Service Inspector: Campos Avilez MD Protein [Mass/Vol] 5.0 g/dL Low 6.4-8.3 [facility] Comment on above: Performed By: #### C P, CDP, COSMO, BHCG, MG, VD25, LIP #### [facility] [address] [place] [address] Dining Service Inspector: Campos Avilez MD Sodium [Moles/Vol] 141 mmol/L Normal 135-144 [facility] Comment on above: Performed By: #### C P, CDP, COSMO, BHCG, MG, VD25, LIP #### [address] [address] Dining Service Inspector: Campos Avilez MD Urea nitrogen [Mass/Vol] 10 mg/dL Normal 6-20 [facility] Comment on above: Performed By: #### C P, CDP, COSMO, BHCG, MG, VD25, LIP #### [address] [place] [address] Dining Service Inspector: Campos Avilez MD BUN/CRE Ratio NOT REPORTED Normal 9-20 [facility] Comment on above: Performed By: #### C P, CDP, COSMO, BHCG, MG, VD25, LIP #### [facility] [place] [address] Dining Service Inspector: Campos Avilez MD GFR, Amer NOT REPORTED Normal >60 [facility] Comment on above: Performed By: #### C P, CDP, COSMO, BHCG, MG, VD25, LIP #### [address] [address] Dining Service Inspector: Campos Avilez MD Staging: NOT REPORTED Normal [facility] Comment on above: Performed By: #### C P, CDP, COSMO, BHCG, MG, VD25, LIP #### [facility] [address] [place] [address] Dining Service Inspector: Campos Avilez MD HCG, ,Urineon 07-080 Beta HCG ( test) Ql (U) Negative Normal NEG [facility] Comment on above: Result Comment: Spec [...] Performed By: #### U HCG, UAMIC #### [address] [address] Dining Service Inspector: Campos Avilez MD HCG, Quanton 07-08-2020 HCG, Quant <1 Normal <5 [facility] Comment on above: Result Comment: Non-preg [...] CDP, COSMO, BHCG, MG, VD25, LIP #### [facility] [address] [place] [address] Dining Service Inspector: Campos Avilez MD Lipaseon 07-08-2020 Lipase [Catalytic activity/Vol] 15 U/L Normal 13-60 [facility] Comment on above: Performed By: #### C P, CDP, COSMO, BHCG, MG, VD25, LIP #### [facility] [address] [place] [id number] Dining Service Inspector: Campos Avilez MD Magnesiumon 07-08-2020 Magnesium [Mass/Vol] 1.2 mg/dL Low 1.7-2.2 [facility] Comment on above: Performed By: #### C P, CDP, COSMO, BHCG, MG, VD25, LIP #### [facility] [address] [place] [address] Dining Service Inspector: Campos Avilez MD Interpretation and review of laboratory results Abnormal [place] Magnesium [Mass/Vol] 1.2 mg/dL Low 1.7 - 2 .2 mg/dL [place] Otheron 07-08-2020 Direct Exam Negative [place] , URINEon Beta HCG ( test) Ql (U) Negative NEGATIVE [place] Comment on above: Specimens with hCG [...] 2.6 mg/dL 2.5 - 4 .8 mg/dL [place] Phosphorus, Inorg.on 021 Phosphorus, Inorg. 2.6 mg/dL Normal 2.5-4.8 [facility] Comment on above: Performed By: #### U HCG, UAMIC #### [facility] [address] [place] [address] Dining Service Inspector: Campos Avilez MD NON OB TRANSVAGINALon Elia, Mhpn Incoming Radiant Results From [employer] - 07/08/2020 12:31 AM EST EXAMINATION: PELVIC [...] No evidence of ovarian torsion is noted. [place] Unremarkable pelvic ultrasound. No evidence of ovarian torsion is noted. [place] EXAMINATION: PELVIC ULTRASOUND 07/07/2020 TECHNIQUE: Transvaginal [...] Free Fluid: No evidence of free fluid. [facility] [place], [place] Urinalysis w/ Microon 2020 ----- Normal [facility] Comment on above: Performed By: #### U HCG, UAMIC #### [address] [address] Dining Service Inspector: Campos Avilez MD Acetoacetic Acid,Ur Negative Normal NEG [facility] Comment on above: Performed By: #### U HCG, UAMIC #### [address] [address] Dining Service Inspector: Campos Avilez MD Bacteria LM.HPF (Urine sed) [#/Area] MANY Abnormal NONE [facility] Comment on above: Performed By: #### U HCG, UAMIC #### [address] [address] Dining Service Inspector: Campos Avilez MD Bilirubin, SemiQt,Ur Negative Normal NEG [facility] Comment on above: Performed By: #### U HCG, UAMIC #### [address] [address] Dining Service Inspector: Campos Avilez MD Color (U) ORANGE Abnormal YEL [facility] Comment on above: Result Comment: INTE RPRET WITH CAUTION DUE TO INTENSE COLOR OF URINE. Performed By: #### U HCG, UAMIC #### [address] [address] Dining Service Inspector: Campos Avilez MD Epithelial cells LM.HPF (Urine sed) [#/Area] 0 TO 2 Normal 0-5 [facility] Comment on above: Performed By: #### U HCG, UAMIC #### [address] [address] Dining Service Inspector: Campos Avilez MD Glucose Ql (U) Negative Normal NEG [facility] Comment on above: Performed By: #### U HCG, UAMIC #### [address] [address] Dining Service Inspector: Campos Avilez MD Hemoglobin, Ur LARGE Abnormal NEG [facility] Comment on above: Performed By: #### U HCG, UAMIC #### [address] [address] Dining Service Inspector: Campos Avilez MD Leukocyte esterase Test strip Ql (U) MODERATE Abnormal NEG [facility] Comment on above: Performed By: #### U HCG, UAMIC #### [address] [address] Dining Service Inspector: Campos Avilez MD Nitrite,Ur Positive Abnormal NEG [facility] Comment on above: Performed By: #### U HCG, UAMIC #### [address] [address] Dining Service Inspector: Campos Avilez MD pH (U) 5.5 [pH] Normal 5.0-8.0 [facility] Comment on above: Performed By: #### U HCG, UAMIC #### [address] [address] Dining Service Inspector: Campos Avilez MD Protein Ql (U) 2+ Abnormal NEG [facility] Comment on above: Performed By: #### U HCG, UAMIC #### [address] [address] Dining Service Inspector: Campos Avilez MD RBC (U) [#/Vol] 50 TO 100 Normal 0-4 [facility] Comment on above: Result Comment: Refe rence range defined for non-centrifuged specimen. Performed By: #### U HCG, UAMIC #### [address] [address] Dining Service Inspector: Campos Avilez MD Specific gravity (U) [Rel density] 1.021 Normal 1.005-1.030 [facility] Comment on above: Performed By: #### U HCG, UAMIC #### [address] [address] Dining Service Inspector: Campos Avilez MD Turbidity TURBID Abnormal CLEAR [facility] Comment on above: Performed By: #### U HCG, UAMIC #### [address] [address] Dining Service Inspector: Campos Avilez MD Urobilinogen,Ur Normal Normal NORM [facility] Comment on above: Performed By: #### U HCG, UAMIC #### [address] [address] Dining Service Inspector: Campos Avilez MD WBC (U) [#/Vol] TOO NUMEROUS TO COUNT Normal 0-5 [facility] Comment on above: Performed By: #### U HCG, UAMIC #### [address] [address] Dining Service Inspector: Campos Avilez MD Amorphous sediment LM Ql (Urine sed) NOT REPORTED Normal [facility] Comment on above: Performed By: #### U HCG, UAMIC #### [address] [address] Dining Service Inspector: Campos Avilez MD Casts LM.LPF (Urine sed) [#/Area] NOT REPORTED Normal 0-8 [facility] Comment on above: Performed By: #### U HCG, UAMIC #### [address] [address] Dining Service Inspector: Campos Avilez MD Crystals LM Nom (Urine sed) NOT REPORTED Normal NONE [facility] Comment on above: Performed By: #### U HCG, UAMIC #### [address] [address] Dining Service Inspector: Campos Avilez MD Epithelial, Renal NOT REPORTED Normal 0 [facility] Comment on above: Performed By: #### U HCG, UAMIC #### [facility] [address] [place] [address] Dining Service Inspector: Campos Avilez MD Mucus Strands NOT REPORTED Normal NONE [facility] Comment on above: Performed By: #### U HCG, UAMIC #### [address] [address] Dining Service Inspector: Campos Avilez MD Other Observations NOT REPORTED Normal NREQ [facility] Comment on above: Performed By: #### U HCG, UAMIC #### [address] [address] Dining Service Inspector: Campos Avilez MD Trichomonas NOT REPORTED Normal [facility] Comment on above: Performed By: #### U HCG, UAMIC #### [address] [address] Dining Service Inspector: Campos Avilez MD Yeast LM Ql (Urine sed) NOT REPORTED Normal [facility] Comment on above: Performed By: #### U HCG, UAMIC #### [address] [address] Dining Service Inspector: Campos Avilez MD Urinalysis with microscopico n 07-08-2020 Amorphous, UA NOT REPORTED None [facility] [place], [place] Bacteria, UA MANY Abnormal None [facility] [place] Bilirubin Urine Negative NEGATIVE [facility] [place] Casts UA NOT REPORTED [facility], [place] Color, UA ORANGE Abnormal YELLOW [place], [place] Comment on above: INTERPRET WITH CAUTI ON DUE TO INTENSE COLOR OF URINE. Crystals, UA NOT REPORTED None /HPF [facility] [place] Epithelial Cells UA 0 TO 2 [place] Glucose, Ur Negative NEGATIVE [place] Interpretation and review of laboratory results Abnormal [place] Ketones Ql (U) Negative NEGATIVE [place] Leukocyte esterase Test strip Ql (U) MODERATE Abnormal NEGATIVE [place] Mucus, UA NOT REPORTED None [place] Nitrite, Urine Positive Abnormal NEGATIVE [place] Other Observations UA NOT REPORTED NOT REQ. [place] pH, UA 5.5 [place] Protein (U) [Mass/Vol] 2+ Abnormal NEGATIVE [place], [place] RBC (U) [#/Vol] 50 TO 100 [place], [place] Comment on above: Reference range defi sonia for non-centrifuged specimen. Renal Epithelial, UA NOT REPORTED 0 /HPF [place], [place] Specific [place], UA 1.021 [place] Trichomonas, UA NOT REPORTED None [place] Turbidity UA TURBID Abnormal CLEAR [place] Urine Hgb LARGE Abnormal NEGATIVE [place] Urobilinogen, Urine Normal Normal [place] WBC, UA TOO NUMEROUS TO COUNT [place] Yeast, UA NOT REPORTED None [place] - [place] VAGINITIS DNA PROBEon 2020 Direct Exam Positive Abnormal [place] Direct Exam Method of testing is a DNA probe intended for detection and identification of Samantha species, Gardnerella vaginalis, and Trichomonas vaginalis nucleic acid in vaginal fluid specimens from patients with symptoms of vaginitis/vaginosis. [place] Interpretation and review of laboratory results Abnormal [place] Special Requests NOT REPORTED [place] Specimen Description .VAGINA [place] Vaginitis DNA Probeon 2020 Vaginitis DNA [...] of vaginitis/vaginosis. Report Status FINAL 07/08/2020 Normal [facility] Comment on above: Performed By: #### U HCG, UAMIC #### [facility] [address] [place] [address] Dining Service Inspector: Campos Avilez MD Vitamin D 25 Hydroxyon 07-08 Interpretation and review of laboratory results Abnormal [place] Vit D, 25-Hydroxy 12.1 ng/mL Low 30 - 100 ng/mL [place] Comment on above: Reference Range: Vitamin D status Range Deficiency <20 ng/mL Mild Deficiency 20-30 ng/mL Sufficiency 30-100 ng/mL Toxicity >100 ng/mL Vitamin D 25 OHon 07-08-2020 Vitamin D 25 OH 12.1 ng/mL Low 30.0-100.0 [facility] Comment on above: Result Comment: Reference Range: Vitamin D status Range Deficiency <20 ng/mL Mild Deficiency 20-30 ng/mL Sufficiency 30-100 ng/mL Toxicity >100 ng/mL Performed By: #### U HCG, UAMIC #### [facility] [address] [place] [id number] Dining Service Inspector: Campos Avilez MD ABO/RHon 07-07-2020 ABO/Rh Positive [place] CBC WITH AUTO DIFFERENTIALon 07-07-2020 Basophils (Bld) [#/Vol] 0.04 10*3/uL [place] Basophils/100 WBC (Bld) 0 % 0 - 2 % [place] Differential Type NOT REPORTED [place] Eosinophils (Bld) [#/Vol] 0.10 10*3/uL [place] Eosinophils/100 WBC (Bld) 1 % 1 - 4 % [place] Erythrocyte distribution width (RBC) [Ratio] 14.0 % 11.8 - 14.4 % [place] Hematocrit (Bld) [Volume fraction] 34.3 % Low 36.3 - 47.1 % [place] Hemoglobin (Bld) [Mass/Vol] 11.1 g/dL Low 11.9 - 15.1 g/dL [place] Immature granulocytes (Bld) [#/Vol] 0 % 0 [place] Immature granulocytes (Bld) [#/Vol] 0.04 10*3/uL [place] Interpretation and review of laboratory results Abnormal [place] Lymphocytes (Bld) [#/Vol] 1.77 10*3/uL [place] Lymphocytes/100 WBC (Bld) 16 % Low 25 - 45 % [place] MCH (RBC) [Entitic mass] 26.6 pg 25 - 35 pg [place] MCHC (RBC) [Mass/Vol] 32.4 g/dL 28.4 - 34.8 g/dL [place] MCV (RBC) [Entitic vol] 82.3 fL 78 - 102 fL [place] Monocytes (Bld) [#/Vol] 0.73 10*3/uL [place] Monocytes/100 WBC (Bld) 7 % 2 - 8 % [place] Platelet mean volume (Bld) [Entitic vol] 11.8 fL 8.1 - 13.5 fL [place] Platelets (Bld) [#/Vol] NOT REPORTED [place] Platelets (Bld) [#/Vol] 288 10*3/uL [place] RBC (Bld) [#/Vol] 4.17 10*6/uL 3.95 - 5.1 1 m/uL [place] RBC morphology finding Nom (Bld) NOT REPORTED [place] Segmented neutrophils/100 WBC (Bld) 75 % High 34 - 64 % [place] Segs Absolute 8.16 High [place] WBC (Bld) [#/Vol] 0.0 10*3/uL 0.0 per 10 0 WBC [place] WBC (Bld) [#/Vol] 10.8 10*3/uL [place] WBC Morphology NOT REPORTED [place] COMPREHENSIVE METABOLIC PANE Mikie 07-07-2020 Albumin [Mass/Vol] 2.3 g/dL Low 3.5 - 5.2 g/dL [place] Albumin/Globulin [Mass ratio] 0.9 {ratio} Low [place] ALP [Catalytic activity/Vol] 41 U/L 35 - 104 U/L [place] Comment on above: SPECIMEN MODERATELY HEMOLYZED, RESULTS MAY BE ADVERSELY AFFECTED ALT [Catalytic activity/Vol] 11 U/L 5 - 33 U/L [place] Comment on above: SPECIMEN MODERATELY HEMOLYZED, RESULTS MAY BE ADVERSELY AFFECTED Anion gap [Moles/Vol] 9 mmol/L 9 - 17 mmol/L [place] AST [Catalytic activity/Vol] 28 U/L <32 [place] Comment on above: SPECIMEN MODERATELY HEMOLYZED, RESULTS MAY BE ADVERSELY AFFECTED Bilirubin Ql (U) <0.10 Low 0.3 - 1.2 mg/dL [place] Bun/Cre Ratio NOT REPORTED [place] Calcium [Mass/Vol] 5.5 mg/dL Critically low 8.6 - 1 0.4 mg/dL [place] Chloride [Moles/Vol] 118 mmol/L High 98 - 10 7 mmol/L [place] CO2 [Moles/Vol] 14 mmol/L Low 20 - 31 mmol/L [place] Creatinine [Mass/Vol] 0.6 mg/dL 0.5 - 0.9 mg/dL [place] GFR NOT REPORTED >60 mL/min [place] GFR Non- Pediatric GFR requires additional information. Refer to NKDEP website for calculator. >60 mL/min [place] GFR/1.73 sq M predicted among non-blacks MDRD (S/P/Bld) [Vol rate/Area] NOT REPORTED [place] GFR/1.73 sq M predicted among non-blacks MDRD (S/P/Bld) [Vol rate/Area] [place] Comment on above: Average GFR for <20 years old not available. Chronic Kidney Disease: <60 mL/min/1.73sq m Kidney failure: <15 mL/min/1.73sq m eGFR calculated using average adult body mass. Additional eGFR calculator available at: http://www.SpoonRocket/multiple_crcl_2012.htm Glucose [Mass/Vol] 84 mg/dL 70 - 99 mg/dL [place] Interpretation and review of laboratory results Abnormal [place] Potassium [Moles/Vol] 5.1 mmol/L 3.7 - 5.3 mmol/L [place] Comment on above: SPECIMEN MODERATELY HEMOLYZED, RESULTS MAY BE ADVERSELY AFFECTED Protein [Mass/Vol] 5.0 g/dL Low 6.4 - 8.3 g/dL [place] Sodium [Moles/Vol] 141 mmol/L 135 - 144 mmol/L [place] Urea nitrogen [Mass/Vol] 10 mg/dL 6 - 20 mg/dL [place] HCG, QUANTITATIVE, on 07-07-2020 hCG Quant <1 <5 IU/L [place] Comment on above: Non-preg premeno <=5 [...] activity/Vol] 15 U/L 13 - 60 U/L [place] Vital Signs Date Time Vital Sign [...] kg Chung Benja DO Work Phone: [facility] 07-17-2023 11:42-0500 Diastolic blood pressure 70 mm[Hg] Chung Benja DO Work Phone: [facility] 07-17-2023 11:42-0500 Systolic blood pressure 118 mm[Hg] Chung Benja DO Work Phone: [facility] 10-19-2021 01:12-0400 Diastolic blood pressure 62 mm[Hg] PHYSICIAN [facility] 10-19-2021 01:12-0400 Heart rate 89 /min PHYSICIAN [facility] 10-19-2021 01:12-0400 Respiratory rate 18 /min PHYSICIAN [facility] 10-19-2021 01:12-0400 SaO2% (BldA) [Mass fraction] 100 % PHYSICIAN [facility] 10-19-2021 01:12-0400 Systolic blood pressure 130 mm[Hg] PHYSICIAN [facility] 10-18-2021 23:10-0400 Body height 167.64 cm PHYSICIAN [facility] 10-18-2021 23:10-0400 Body mass index (BMI) [Percentile] Per age and sex 99.1 % PHYSICIAN [facility] 10-18-2021 23:10-0400 Body mass index (BMI) [Ratio] 48.2 kg/m2 PHYSICIAN [facility] 10-18-2021 23:10-0400 Body weight 135.5 kg PHYSICIAN [facility] 10-18-2021 23:08-0400 Body temperature 98.4 [degF] PHYSICIAN [facility] 07-07-2020 21:51-0500 BMI (Body Mass Index) 42.93 kg/m2 [facility] [place] 07-07-2020 21:51-0500 Body weight 120.66 [facility] [place] 07-07-2020 21:51-0500 BP Diastolic 85 mm[Hg] [place], [place] 07-07-2020 21:51-0500 BP Systolic 136 mm[Hg] [place] 07-07-2020 21:51-0500 Height 167.6 cm [place] 07-07-2020 21:51-0500 Pulse (Heart Rate) 93 /min [place], [place] 07-07-2020 21:51-0500 Pulse Oximetry 97 % [place] 07-07-2020 21:51-0500 Respiratory Rate 18 /min [facility] [place] 07-07-2020 21:48-0500 Body Temperature 97.11 [degF] [facility] [place] Encounters Encounter Date Encounter Type Care Provider Facility Start: 12-17-2023 End: 12-17-2023 ambulatory HALIMA SUBHASH Not Available Start: 12-03-2023 End: 12-03-2023 ambulatory CHUNG BENJA Not Available Start: 11-19-2023 End: 11-19-2023 ambulatory CHUNG BENJA Not Available Start: 11-04-2023 End: 11-04-2023 ambulatory HALIMA SUBHASH Not Available Start: 10-26-2023 End: 10-26-2023 ambulatory Fuentes Florentino Facility:[facility] Start: 10-25-2023 End: 10-26-2023 OB Triage Fuentes [...] Emergency department patient visit PHYSICIAN NO FAMILY Facility:[facility] Start: 10-18-2021 End: 10-19-2021 Emergency department patient visit PHYSICIAN NO FAMILY [facility] Start: 07-07-2020 End: 07-08-2020 Emergency department patient visit DAVID AQUINO [facility] Start: 07-07-2020 End: 07-08-2020 Emergency department patient visit Lisa Land Work Phone: [facility] ED Comment on above: BV (bacterial [...] procedure 08/14/2023 11:20 AM EDT Routine [facility] [address] [place] [address] Halima Cullen PA [address] [place] [address] [facility] OB Start: 07-17-2023 End: 07-17-2024 US for US OB VIABLILITY Imaging Routine with uncertain viability, single or unspecified fetus Expected: 07/17/2023 (Approximate), Expires: 07/17/2024 [facility] Work Phone: Comment on above: Expected: 07/17/2023 (Approximate), Expires: 07/17/2024 Start: 07-17-2023 End: 07-17-2023 Patient encounter procedure [facility] OB Comment on above: First trimester preg yesika Start: 07-03-2023 End: 07-03-2024 ABO/Rh ABO/Rh Lab Routine Missed menses Expected: 07/03/2023 (Approximate), Expires: 07/03/2024 [facility] Comment on above: Expected: 07/03/2023 (Approximate), Expires: 07/03/2024 Start: 07-03-2023 End: 07-03-2024 Blood type and Indirect antibody screen panel - Blood Type and screen Lab Routine Missed menses Expected: 07/03/2023 (Approximate), Expires: 07/03/2024 [facility] Work Phone: Comment on above: Expected: 07/03/2023 (Approximate), Expires: 07/03/2024 Start: 07-03-2023 End: 07-03-2024 US Pelvis transvaginal US OB transvaginal Imaging Routine Missed menses Expected: 07/03/2023 (Approximate), Expires: 07/03/2024 [facility] Comment on above: Expected: 07/03/2023 (Approximate), Expires: 07/03/2024 Start: 02-01-2020 Influenza vaccination Flu vaccine (# 1) [place] Start: 2018 Meningococcal (ACWY) vaccine (1 - 2-dose series) Meningococcal (ACWY) vaccine (1 - 2-dose series) [place] Start: 2018 Screening for Chlamy nancy trachomatis Chlamydia screen [place] Start: 2017 HIV screening HIV screen [place] Start: 2013 HPV vaccine (1 - 2-d ose series) HPV vaccine (1 - 2-dose series) [place] Start: 2009 DTaP/Tdap/Td vaccine (1 - Tdap) DTaP/Tdap/Td vaccine (1 - Tdap) [place] Start: 2003 Hepatitis A vaccine (1 of 2 - 2-dose series) Hepatitis A vaccine (1 of 2 - 2-dose series) [place] Start: 2003 Measles,Mumps,Rubell a (MMR) vaccine (1 of 2 - Standard series) Measles,Mumps,Rubella (MMR) vaccine (1 of 2 - Standard series) [place] Start: 2003 Varicella vaccine (1 of 2 - 2-dose childhood series) Varicella vaccine (1 of 2 - 2-dose childhood series) [place] Start: 2002 Hepatitis B vaccine (1 of 3 - 3-dose primary series) Hepatitis B vaccine (1 of 3 - 3-dose primary series) [place] Start: 2002 Hepatitis C screening Hepatitis C sc reen [place] Bacteria identified in Urine by Culture Urine culture Microbiology Routine Missed menses Ordered: 07/03/2023 [facility] Comment on above: Ordered: 07/03/2023 End: 07-07-2020 C.trachomatis N.gonorrhoeae DNA C.trachomatis N.gonorrhoeae DNA Microbiology STAT One Time for 1 Occurrences starting 07/07/2020 until 07/07/2020 [place] Comment on above: One Time for 1 Occur rences starting 07/07/2020 until 07/07/2020 C.trachomatis N.gonorrhoeae DNA C.trachomatis N.gonorrhoeae DNA Microbiology Stat [facility] Label print 07/07/2020 11:20 PM [place] End: 07-08-2020 Calcium, Ionized Calcium, Ionized Lab STAT One Time for 1 Occurrences starting 07/08/2020 until 07/08/2020 [place] Comment on above: One Time for 1 Occur rences starting 07/08/2020 until 07/08/2020 CBC W Auto Different ial panel - Blood CBC and differential Lab Routine Missed menses Ordered: 07/03/2023 [facility] Comment on above: Ordered: 07/03/2023 End: 07-07-2020 Culture, Urine Culture, Urine Microbiology STAT One Time for 1 Occurrences starting 07/07/2020 until 07/07/2020 [place] Comment on above: One Time for 1 Occur rences starting 07/07/2020 until 07/07/2020 Culture, Urine Culture, Urine Microbiology Stat [facility] Label print 07/07/2020 10:56 PM [place] Hemoglobin A1c measurement Hemoglobin A1c Lab Routine Missed menses Ordered: 07/03/2023 [facility] Comment on above: Ordered: 07/03/2023 Hepatitis B virus surface Ag [Presence] in Serum or Plasma by Immunoassay Hepatitis B surface antigen Lab Routine Missed menses Ordered: 07/03/2023 [facility] Comment on above: Ordered: 07/03/2023 Hepatitis C virus Ab [Presence] in Serum or Plasma by Immunoassay Hepatitis C antibody Lab Routine Missed menses Ordered: 07/03/2023 [facility] Comment on above: Ordered: 07/03/2023 HIV-1/HIV-2 antigen/antibody combination immunoassay HIV-1 and HIV-2 antibodies Lab Routine Missed menses Ordered: 07/03/2023 [facility] Comment on above: Ordered: 07/03/2023 Patient Education Common Breast Problems Pelvic Pain ED [facility] Work Phone: Patient referral [facility] Work Phone: Reagin Ab [Presence] in Serum by RPR RPR Lab Routine Missed menses Ordered: 07/03/2023 [facility] Comment on above: Ordered: 07/03/2023 Rubella antibody, IgG Rubella an tibody, IgG Lab Routine Missed menses Ordered: 07/03/2023 [facility] Comment on above: Ordered: 07/03/2023 End: 07-07-2020 US DUP ABD PEL RETRO SCROT LIMITED US DUP ABD PEL RETRO SCROT LIMITED Imaging STAT Once for 1 Occurrences starting 07/07/2020 until 07/07/2020 [place] Comment on above: Once for 1 Occurrenc es starting 07/07/2020 until 07/07/2020 US DUP ABD PEL RETRO SCROT LIMITED US DUP ABD PEL RETRO SCROT LIMITED Imaging STAT 07/08/2020 12:13 AM EST [place] Payers Date Payer Category Payer Unknown BCBS BCBS [id number] 2023-Present [phone] [address] [place] [address] [id number] 2023 Unknown [id number] 2021 Self-pay [id number] 2002 Unknown [id number] 2002 Unknown [id number] 2002 Unknown [id number] 2002 Unknown [id number] [id number] 2002 Unknown [id number] [id number] 2002 Unknown [id number] [id number] 2002 Unknown [id number] [id number] 2002 Unknown [id number] [id number] 2002 Unknown [id number] [id number] 2002 Unknown [id number] [id number] 2002 Unknown [id number] [id number] 2002 Unknown [id number] [id number] 2002 Unknown [id number] [id number] 2002 Unknown [id number] [id number] 1957 Medicaid [id number] 1959 Unknown [id number] Unknown [id number] Social History Date Type Detail Facility Start: 07-07-2020 End: 07-16-2023 Tobacco smoking status NHIS Never smoker [facility] Start: 07-07-2020 Tobacco use and exposure Never used [place] Start: 2002 Sex Assigned At Not on file [place] Exposure to SARS-CoV-2 (event) Not sure [place] Start: 10-19-2021 Tobacco smoking status NHIS Smoker (finding) [facility] Start: 2002 Sex Assigned At Female F [facility] Tobacco smoking status ALIS Tobacco smoking consumption unknown [facility] Start: 05-22-2023 [facility] Start: 07-16-2023 Gender identity Not on file [facility] Start: 07-16-2023 End: 07-17-2023 Alcohol intake Lifetime non-drinker (finding) [facility] Start: 07-16-2023 History of Social function [facility] Tobacco smoking status No Smoking Status Entered [facility] Functional Status Date Assessment Result Facility 10-26-2023 Functional Status N/A [facility] Clinical Notes 07-03-2023 to 10-26-2023 Chung Yousif DO - 07/17/2023 11:10 AM Costa Kilgore LPN - 07/03/2023 1:00 PM EST Note Date & Type Note Facility 10-26-2023 Note The following Patien t Education Materials have been given to the patient: EducationMaterial [facility] 10-26-2023 Hospital Discharg e instructions Patient [...] provider. Document Revised: 01/02/2022 Document Reviewed: 01/02/2022 [employer] Patient Education 2022 [employer]. 10/26/2023 03:10:04 Vaginal Bleeding During , Second [...] help with your regular activities. Medicines Take ebdl-dlq-gzmzbtq and prescription medicines only as told by [...] provider. Document Revised: 02/08/2021 Document Reviewed: 02/08/2021 [employer] Patient Education 2022 [employer]. 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 [...] your back during . General instructions Take arfd-osj-fzxyhgz and prescription medicines only as told by [...] care provider for managing back pain. Take ykka-azt-qjyipqf and prescription medicines only as told by [...] provider. Document Revised: 08/01/2021 Document Reviewed: 08/01/2021 [employer] Patient Education 2022 [employer]. Follow Up Care 10/25/2023 23:39:34 With:Cuhng YOUSIF Address: [address] , [place] [address]- Business (1) When:11/04/2023 [facility] [...] medication list which includes the following prescription(s): ybhuewmv-uru-rf-fa and promethazine. Medical History: Active Ambulatory Problems Diagnosis Date Noted No Active Ambulatory Problems Resolved Ambulatory Problems Diagnosis Date Noted No Resolved Ambulatory Problems Past Medical History: Diagnosis Date ADD (attention deficit disorder) Asthma ([facility]) Family History Problem Relation Name [...] Yousif DO documented in this encounter [facility] 07-03-2023 History of Presen t illness Narrative [...] Problems Past Medical History: Diagnosis Date Asthma ([facility]) No family history on file. [...] Evaluation note No assessment inform ation available [facility] [employer] Work Phone: Evaluation note Diagnosis Missed menses [...] so you can have your concerns further evaluated.[facility] [employer] Work Phone: Progress note No data available for this section [facility] Discharge Instructions * Instructions* Brenda Stoner DO - 07/08/2020 [facility] ED Clinic List Healthcare Providers Services Day of Week/ Hours [facility] Services [address] Pediatric Primary Care Adult Primary Care CATARACT LENS GENERATOR//Specialty Clinics Friday 8:00a 4:30p [address] Adult Medicine, Pediatrics, [employer]ARACT LENS GENERATOR Friday 8:30a 4:30p [facility] Surgery [address] [facility] Friday 8:30a 11:00a [address] Adult Internal Medicine ([facility]) CATARACT LENS GENERATOR Clinic Pediatric Clinic Friday, Friday, , Friday 8:00a 4:30p Friday 1:00p 4:30p Friday, Friday, 8:00a 5:00p; Friday 8:00a 12:30p Friday 1p 4p Friday, Friday, , Friday 8:30a 4:15p Friday 12:30p 4:15p [facility] Department [place] [id number] [facility] Pediatric Primary Care Adult Primary Care OB/ Friday, Friday 8a 12p 8a 4:45p [facility] [address] [place] [address] [place] [address] # Pre & Post Adoption Counseling Support / nutrition Care Reward Incentive Program [facility] Fri, , Fri, Fri 10:00a 4:30p Thur 10:00a 7:30p E Gomez Location Friday - Friday 10a 4:30p [facility] CATARACT LENS GENERATOR [address] Adult Internal Medicine [address] [facility] Pediatrics [address] [facility], [address] Neuro / Headache [address] Friday 8:30a 5p [facility] Practice [address] [facility] Fri, , , Fri 9:00a 4:30p Wed 1:00p 4:30p [facility] Practice [address] [facility] [address] [facility] Friday 8:30a 5:00p [facility] Specialty Clinics [address] [facility] [address] Burn/Plastic, ENT, GI, Orthopedics, Surgical / Trauma, Urology, Vascular Friday 8:00 4:30p Call for an appointment [facility] [address] [facility] Adult Medicine, Eye Clinic, Dental Patient must be certified homeless Under age 18 not accepted Friday 8:00 4:30p [facility] [address] [facility] Practice OB Friday, Friday, Friday, Friday 9a 5p 9a 6p Friday (OB only) [facility] [address] [facility] OB/ Friday 11a 7p , Fri, 9a 5p Friday 8a 4p 1st Friday 9a 1p Podiatry Clinic [address] [facility] [address] Friday 8:00 4:[address] Free nurse visits [place] programs Counseling Class Call or walk in [facility] [address] [place] Various Clinics 8a 5:30p [facility] Family Medicine [facility] Center [address] [facility] [address] Family Practice Friday 8a 4:30p [facility] [address] [place] [address] [id number] [facility] [place], [place] [id number] Friday 8a 4:30p Friday 8a 4:30p 8a 8p Outpatient Clinics [facility] [address] [facility] Friday 9a 5p Diabetic Education Services Call for an appointment [facility] Heart Failure Clinic [address] [facility] Friday 8:30a 4p Dental Services [facility] [address] [facility] Must have source of income and must bring (2) recent check stubs to appointment By appointment only [facility] [address] Patient must be homeless, call for eligibility guidelines. Under age 18 NOT accepted Days and hours vary (Doors open at 8:30a day of week varies) Call for an appointment Miscellaneous Information [facility] Call for Help [phone] Call for an appointment H.E.L.P (Hospital Eligibility Link Program) toll free For financial assistance * Attachments The following attachments cannot be sent through Care Everywhere. * Bacterial Vaginosis ([place]) * UTI (Urinary Tract Infection): Female ([place]) * Vitamin D: General Info ([place]) documented in this encounter Assessments Diagnosis BV [...] section and content) DATE CREATED AUTHOR 07/16/2020 [facility] DATE CREATED AUTHOR AUTHOR'S ORGANIZ ATION 09/07/2022 [facility] DATE CREATED AUTHOR AUTHOR'S ORGANIZ ATION 03/13/2023 [facility] DATE CREATED AUTHOR AUTHOR'S ORGANIZ ATION 10/27/2023 [facility] DATE CREATED AUTHOR AUTHOR'S ORGANIZ ATION 10/31/2023 [facility] DATE CREATED AUTHOR AUTHOR'S ORGANIZ ATION 12/21/2023 [facility] EPIC Care Teams (unrecognized sec tion [...] BE BASED ON THE PRIMARY CLINICAL RECORDS. [employer] provides no warranty or guarantee of the accuracy or completeness of information in this document.
[2024-01-02 17:09] VITALS: BP 125/58; PULSE 110
== END 2024-01-02 17:47 | disposition home or self-care (01) ==
LOC: FBCO 07:00 → FBC 17:04
PROVIDERS: Visit Provider Obstetrics & Gynecology
DX: O40.3XX0 Polyhydramnios, third trimester, not applicable or unspecified (principal)
CPT/HCPCS: 59025

== ENCOUNTER 2024-01-06 07:02 | Outpatient (OUT) | payer MEDICAID, SELFPAY ==
--- OUTSIDE RECORDS SUMMARY | 2024-01-06 07:05 | XMS_ITS | CCD ---
Demographics Address [address] [place] [address] Preferred Language en Marital Status Single Adventist Affiliation Unknown Race Unknown Ethnic Group Not or Lati no Author Organization [facility] [employer] [facility] [employer] [facility] Care Team Providers Care Director Of Consumer Affairs Name Role Phone Unavailable Primary Care Provider [...] YOUSIF Attending Unavailable HALIMA CULLEN Attending Unavailable HALIMA CULLEN Attending Unavailable Allergies Allergy Classification Reported Allergen(s) Allergy Type Date of Onset Reaction(s) Facility (1 source) Latex Propensity to adverse reactions to drug 07-07-2020 [facility]- [place], [place] Medications Current Medications Medication Drug Class(es) [...] Refill(s) 0 Start Date: 10/26/23 Status: Ordered Vycapikc-Rij-Do-FA ( 1 + IRON PO) (4 sources) Urxrssch-Doj-An-FA ( 1 + IRON PO) Take by [...] 1 joselo, Vaginal, Refill(s) 0 Start Date: 5/26/24 Status: Ordered Completed/Discontinued Medications Medication Drug Class(es) [...] Range Facility Nursing Assessmenton 024 Nursing Assessment [id number] 2#1.00TIFF Normal [facility] C Urineon 10-28-2023 Bacteria identified Cx [...] Locations R1: This test was performed at: [facility], [address] [place] [address], [address] [place] [address], [facility] Comment on above: Performed By: #### 2 [id number] #### [facility] [address] [place] [address] Consent for Treatmenton 10-01 Consent for Treatment [id number] #1.00TIFF [facility] Discharge Instructionson Discharge Instructions [id number] 7#1.00TIFF [facility] Inpatient Clinical Summaryon 10-26-2023 Inpatient Clinical Summary [address] [address] Clinical Summary Person Information Name: [facility] Age: 23 Years : 2000 Sex: Female PCP: NONE, XXXX Marital Status: Single Phone: [phone] Race: or Ethnicity: Non- or Language: Cuban Visit Id: Visit Reason: 24 WEEKS BLEEDING Speciality: Acuity: Obs Enc Type: OB Triage Med Service: Obstetrics Arrival: 10/25/2023 23:36:04 Discharge: 10/26/2023 03:30:56 Dispo Type: Home (Routine DC) Address: [facility] [address] [facility] [id number] Provider Notes: Diagnosis: Problems Active (10/26/2023) Smoker [...] Referring Physician: Follow up: With: Address: When: Pending sale to [facility], [address] [place] [address] , [place] [address] [facility] (1) In 9 days 11/04/2023 Patient Education Information: and Urinary Tract Infection; Vaginal Bleeding During , Second Trimester; Back Pain in Normal [facility] Inpatient Patient Summaryon 10-26-2023 Inpatient Patient Summary [address] [address] Patient Discharge Instructions PERSON INFORMATION [...] test results: Follow up: With: Address: When: Pending sale to [facility], [address] [place] [address] , [place] [address] Business (1) In 9 days 11/04/2023 In the event that this physician does not participate in your insurance network, please consult with your insurance company to find a nearby participating provider. Comment: IGRETA TYIESHA MARIE, have received the attached patient [...] Always wi (more content not included)... Normal [facility] Insurance Correspondenceon 0 10-26-2023 Insurance Correspondence [id number] 8#1.00TIFF Normal [facility] UA with Cult Rflxon 10-26-19 24 Bacteria Auto Ql (U) Trace Normal Trace [facility] Comment on above: Performed By: #### 4 [id number] #### [facility] [address] [place] [address] Bilirubin Ql (U) Negative Normal Negative [facility] Comment on above: Performed By: #### 4 [id number] #### [facility] [address] [place] [address] Clarity (U) Turbid Abnormal Clear [facility] Comment on above: Performed By: #### 4 [id number] #### [facility] [address] [place] [address] Color (U) Yellow Normal Yellow [facility] Comment on above: Result Comment: Micr oscopic readings are only performed on those samples that meet specific criteria set forth by [facility]. Performed By: #### 4 [id number] #### [facility] [address] [place] [address] Epithelial cells.squamous Auto (Urine sed) [#/Area] 5-8 Abnormal 0-2 [facility] Comment on above: Performed By: #### 4 [id number] #### [facility] [address] [place] [address] Glucose Ql (U) Negative Normal Negative [facility] Comment on above: Performed By: #### 4 [id number] #### [facility] [address] [place] [address] Hemoglobin Auto test strip (U) [Mass/Vol] Negative Normal Negative [facility] Comment on above: Performed By: #### 4 [id number] #### [facility] [address] [place] [address] Hyaline casts LM Ql (Urine sed) 0-3 Normal 0-3 [facility] Comment on above: Performed By: #### 4 [id number] #### [facility] [address] [place] [address] Ketones Auto test strip Ql (U) Negative Normal Negative [facility] Comment on above: Performed By: #### 4 [id number] #### [facility] [address] [place] [address] Leukocyte esterase Auto test strip Ql (U) 500 Gerald/uL Abnormal Negative [facility] Comment on above: Performed By: #### 4 [id number] #### [facility] [address] [place] [address] Mucus Auto Ql (U) Trace Normal Negative [facility] Comment on above: Performed By: #### 4 [id number] #### [facility] [address] [place] [address] Nitrite Auto test strip Ql (U) Negative Normal Negative [facility] Comment on above: Performed By: #### 4 [id number] #### [facility] [address] [place] [address] pH (U) 6.0 [pH] Invalid Interpretation Code 5.0-9.0 [facility] Comment on above: Performed By: #### 4 [id number] #### [facility] [address] [place] [address] Protein Ql (U) Trace Abnormal Negative [facility] Comment on above: Performed By: #### 4 [id number] #### [facility] [address] [place] [address] RBC Ql (U) 4-20 Abnormal 0-3 [facility] Comment on above: Performed By: #### 4 [id number] #### [facility] [address] [place] [address] Specific gravity (U) [Rel density] 1.030 Invalid Interpretation Code 1.005-1.030 [facility] Comment on above: Performed By: #### 4 [id number] #### [facility] [address] [place] [address] Urobilinogen (U) [Mass/Vol] Negative Normal Negative [facility] Comment on above: Performed By: #### 4 [id number] #### [facility] [address] [place] [address] WBC Auto (Urine sed) [#/Area] 16-25 Abnormal 0-5 [facility] Comment on above: Performed By: #### 4 [id number] #### [facility] [address] [place] [address] Type of Urine collection method Clean Catch Normal [facility] Comment on above: Performed By: #### 4 [id number] #### [facility] [address] [place] [address] URINALYSISOrdered By: SYSTEM SYSTEM on 10-25-2023 Bacteria [...] that meet specific criteria set forth by [facility]. Epithelial cells.squamous Auto (Urine sed) [...] 16-25 graded/HPF Invalid Interpretation Code 0-5graded/HP F [facility] UA Auto SS URINALYSISOrdered By: Elijah Hernandez on 10-25-2023 UA Spec Desc Clean Catch (10/25/23 11:53 PM) Normal [facility] UA Auto SS Urinalysis macro (dipstick) panel (U)on 07-17-2023 Bilirubin, UA Negative Negative - 4(70) +++ mg/dL [facility] Blood, UA Negative Negative - 50 William/mcL [facility] Clarity, UA Clear [facility] Color, UA Yellow [facility] Glucose, UA Negative Negative - 1999(110) ++++ mg/dL [facility] Interpretation and review of laboratory results Abnormal [facility] Ketones, UA Negative Negative - 160(16) ++++ mg/dL [facility] Leukocytes, UA Positive Negative - 500+++ Gerald/mcL [facility] Nitrite, UA Negative Negative - Positive [facility] pH, UA 7.0 5 - 9 [facility] Protein, UA Negative Negative - 1999(20) ++++ mg/dL [facility] Spec Grav, UA 1.020 1 - 1.03 [facility] Urobilinogen, UA 0.2 0.2 - 12 mg/dL [facility] HCG ( test) Ql (U)o n 07-03-2023 Interpretation and review of laboratory results Abnormal [facility] Preg Test, Ur Negative [facility] Urinalysis macro (dipstick) panel (U)on 07-03-2023 Bilirubin, UA Negative Negative - 4(70) +++ mg/dL [facility] Blood, UA Negative Negative - 50 William/mcL [facility] Clarity, UA Clear [facility] Color, UA Yellow [facility] Glucose, UA Negative Negative - 1999(110) ++++ mg/dL [facility] Interpretation and review of laboratory results Normal [facility] Ketones, UA Negative Negative - 160(16) ++++ mg/dL [facility] Leukocytes, UA Negative Negative - 500+++ Gerald/mcL [facility] Nitrite, UA Negative Negative - Positive [facility] pH, UA 5.5 5 - 9 [facility] Protein, UA Negative Negative - 1999(20) ++++ mg/dL [facility] Spec Grav, UA 1.010 1 - 1.03 [facility] Urobilinogen, UA 1.0 0.2 - 12 mg/dL [facility] XR FOOT RT MIN 3 VIEWSon XR [...] PADDY SAPP Date: 2022-08-30 14:42 Normal [facility] CBC AUTO DIFFon 06-28-2022 BASO # 0.0 103/ul Normal 0.0-0.1 [facility] Comment on above: Performed By: #### C BC #### [facility] [address] [place] [address] Dr. Jerald Poon Basophils/100 WBC (Bld) 0.3 % Normal 0.2-2.0 [facility] Comment on above: Performed By: #### C BC #### [facility] [address] [address] [address] Jerald Poon EO # 0.1 103/ul Normal 0.0-0.7 [facility] Comment on above: Performed By: #### C BC #### [facility] [address] [place] [address] Dr. Jerald Poon Eosinophils/100 WBC (Bld) 1.1 % Normal 0.9-7.0 [facility] Comment on above: Performed By: #### C BC #### [facility] [address] [place] [address] Dr. Jerald Poon Erythrocyte distribution width (RBC) [Ratio] 14.5 % Normal 11.0-15.0 [facility] Comment on above: Performed By: #### C BC #### [facility] [address] [place] [address] Dr. Jerald Poon Hematocrit (Bld) [Volume fraction] 36.7 % Normal 36.0-48.0 [facility] Comment on above: Performed By: #### C BC #### [facility] [address] [place] [address] Dr. Jerald Poon Hemoglobin (Bld) [Mass/Vol] 13.0 g/dL Normal 12.0-16.0 [facility] Comment on above: Performed By: #### C BC #### [facility] [address] [place] [address] Dr. Jerald Poon IG # 0.04 10e3/ul Critically high 0.00-0.03 [facility] Comment on above: Performed By: #### C BC #### [facility] [address] [place] [address] Dr. Jerald Poon IG % 0.3 % Normal 0.0-0.5 [facility] Comment on above: Performed By: #### C BC #### [facility] [address] [place] [address] Dr. Jerald Poon LYMPH # 3.0 103/ul Normal 1.2-3.8 [facility] Comment on above: Performed By: #### C BC #### [facility] [address] [place] [address] Dr. Jerald Poon Lymphocytes/100 WBC (Bld) 26.2 % Normal 20.5-60.0 [facility] Comment on above: Performed By: #### C BC #### [facility] [address] [place] [address] Dr. Jerald Poon MANUAL DIFF REQ NO Normal [facility] Comment on above: Performed By: #### C BC #### [facility] [address] [place] [address] Dr. Jerald Poon MCH (RBC) [Entitic mass] 27.1 pg Normal 26.7-34.0 [facility] Comment on above: Performed By: #### C BC #### [facility] [address] [address] [address] Jerald Poon MCHC (RBC) [Mass/Vol] 35.4 g/dL Critically high 29.9-35.2 [facility] Comment on above: Performed By: #### C BC #### [facility] [address] [address] [address] Jerald Poon MCV (RBC) [Entitic vol] 76.6 fL Critically low 81.0-99.0 [facility] Comment on above: Performed By: #### C BC #### [facility] [address] [place] [address] Dr. Jerald Poon MONO # 0.8 103/ul Normal 0.3-0.8 [facility] Comment on above: Performed By: #### C BC #### [facility] [address] [place] [address] Dr. Jerald Poon Monocytes/100 WBC (Bld) 7.0 % Normal 1.7-12.0 [facility] Comment on above: Performed By: #### C BC #### [facility] [address] [place] [address] Dr. Jerald Poon NEUT # 7.5 103/ul Critically high 1.4-6.5 [facility] Comment on above: Performed By: #### C BC #### [facility] [address] [place] [address] Dr. Jerald Poon Neutrophils/100 WBC (Bld) 65.1 % Normal 43.0-75.0 [facility] Comment on above: Performed By: #### C BC #### [facility] [address] [address] [address] Jerald Poon Platelet mean volume (Bld) [Entitic vol] 10.0 fL Normal 9.5-13.5 [facility] Comment on above: Performed By: #### C BC #### [facility] [address] [place] [address] Dr. Jerald Poon PLT 387 103/ul Normal 150-450 [facility] Comment on above: Performed By: #### C BC #### [facility] [address] [place] [address] Dr. Jerald Poon RBC 4.79 106/ul Normal 4.20-5.40 [facility] Comment on above: Performed By: #### C BC #### [facility] [address] [place] [address] Dr. Jerald Poon WBC 11.6 103/ul Critically high 4.0-11.0 [facility] Comment on above: Performed By: #### C BC #### [facility] [address] [place] [address] Dr. Jerald Poon CULTURE URINEon 06-28-2022 CULTURE URINE Culture Observations: LIGHT GROWTH OF MIXED GENITAL ZACARIAS. NO POTENTIAL PATHOGENS SEEN. Normal [facility] Comment on above: Performed By: #### U RCX #### [facility] [address] [place] [address] Dr. Jerald Poon ER URINE PROFILEon 3 Bilirubin Ql (U) Negative Normal NEGATIVE [facility] Comment on above: Performed By: #### U MICRO, ERUR #### [facility] [address] [place] [address] Dr. Jerald Poon Clarity (U) CLEAR Normal CLEAR [facility] Comment on above: Performed By: #### U MICRO, ERUR #### [facility] [address] [place] [address] Dr. Jerald Poon Color (U) YELLOW Normal YELLOW [facility] Comment on above: Performed By: #### U MICRO, ERUR #### [facility] [address] [place] [address] Dr. Jerald CEBALLOS A micrscopic examination will be performed if indicated. Normal [facility] Comment on above: Performed By: #### U MICRO, ERUR #### [facility] [address] [place] [address] Dr. Jerald Poon Glucose Ql (U) Negative Normal NEGATIVE [facility] Comment on above: Performed By: #### U MICRO, ERUR #### [facility] [address] [address] [address] Jerald Poon Hemoglobin Ql (U) Negative Normal NEGATIVE [facility] Comment on above: Performed By: #### U MICRO, ERUR #### [facility] [address] [address] [address] Jerald Poon Ketones Ql (U) 40 mg/dl Abnormal NEGATIVE [facility] Comment on above: Performed By: #### U MICRO, ERUR #### [facility] [address] [address] [address] Jerald Poon LEUKOCYTES TRACE Abnormal NEGATIVE [facility] Comment on above: Performed By: #### U MICRO, ERUR #### [facility] [address] [place] [address] Dr. Jerald Poon Nitrite Ql (U) Negative Normal NEGATIVE [facility] Comment on above: Performed By: #### U MICRO, ERUR #### [facility] [address] [place] [address] Dr. Jerald Poon pH (U) 6.0 [pH] Normal 5-9 [facility] Comment on above: Performed By: #### U MICRO, ERUR #### [facility] [address] [place] [address] Dr. Jerald Poon SPEC GRAVITY >=1.030 Abnormal 1.005-<=1.02 5 [facility] Comment on above: Performed By: #### U MICRO, ERUR #### [facility] [address] [place] [address] Dr. Jerald Poon UA PROTEIN Negative Normal NEGATIVE/ TRACE [facility] Comment on above: Performed By: #### U MICRO, ERUR #### [facility] [address] [place] [address] Dr. Jerald Poon UR MICRO IND INDICATED Normal [facility] Comment on above: Performed By: #### U MICRO, ERUR #### [facility] [address] [place] [address] Dr. Jerald Poon Urobilinogen Qn (U) 0.2 {Lyly'U}/dL Normal 0.2 - 1. 0 [facility] Comment on above: Performed By: #### U MICRO, ERUR #### [facility] [address] [place] [address] Dr. Jerald Poon PREG QUANT HCGon 06-28-2022 HCG QUANT <1 Normal [facility] Comment on above: Performed By: #### P REGQNT #### [facility] [address] [place] [address] Dr. Jerald Poon HCG RANGE SEE BELOW Normal [facility] Comment on above: Result Comment: 5-50 0.2-1 WEEK 50-500 1-2 WEEKS 100-5,000 2-3 WEEKS 500-10,000 3-4 WEEKS 1,000-50,000 4-5 WEEKS 10,000-100,000 5-6 WEEKS 15,000-200,000 6-8 WEEKS 10,000-100,000 2-3 MONTHS Performed By: #### P REGQNT #### [facility] [address] [place] [address] Dr. Jerald Poon PROF CHEM 8 (BAS METB)on Anion gap [Moles/Vol] 14.0 mmol/L Normal [facility] Comment on above: Performed By: #### C BC #### [facility] [address] [place] [address] Dr. Jerald Poon Calcium [Mass/Vol] 9.6 mg/dL Normal 8.5-10.1 [facility] Comment on above: Performed By: #### C BC #### [facility] [address] [place] [address] Dr. Jerald Poon Chloride [Moles/Vol] 101 mmol/L Normal 98-107 [facility] Comment on above: Performed By: #### C BC #### [facility] [address] [place] [address] Dr. Jerald Poon CO2 [Moles/Vol] 25.4 mmol/L Normal 21.0-32.0 [facility] Comment on above: Performed By: #### C BC #### [facility] [address] [place] [address] Dr. Jerald Poon Creatinine [Mass/Vol] 0.92 mg/dL Normal 0.55-1.02 [facility] Comment on above: Performed By: #### C BC #### [facility] [address] [place] [address] Dr. Jerald Poon EGFR-AF [place]ER >60 Normal >=60 [facility] Comment on above: Performed By: #### C BC #### [facility] [address] [address] [address] Jerald Poon EGFR-NON AF [place] >60 Normal >=60 [facility] Comment on above: Performed By: #### C BC #### [facility] [address] [place] [address] Dr. Jerald Poon Glucose [Mass/Vol] 101 mg/dL Normal 74-106 [facility] Comment on above: Performed By: #### C BC #### [facility] [address] [place] [address] Dr. Jerald Poon Potassium [Moles/Vol] 3.4 mmol/L Critically low 3.5-5.1 [facility] Comment on above: Performed By: #### C BC #### [facility] [address] [place] [address] Dr. Jerald Poon Sodium [Moles/Vol] 137 mmol/L Normal 136-145 [facility] Comment on above: Performed By: #### C BC #### [facility] [address] [place] [address] Dr. Jerald Poon Urea nitrogen [Mass/Vol] 11.0 mg/dL Normal 7.0-18.0 [facility] Comment on above: Performed By: #### C BC #### [facility] [address] [place] [address] Dr. Jerald Poon Urea nitrogen/Creatinine [Mass ratio] 12.0 mg/mg Normal [facility] Comment on above: Performed By: #### C BC #### [facility] [address] [place] [address] Dr. Jerald Poon TSHon 01-27-2023 TSH 1.319 uIU/mL Normal 0.358-3.740 [facility] Comment on above: Performed By: #### C BC #### [facility] [address] [place] [address] Dr. Jerald Poon URINE MICROSCOPIC ONLYon BACTERIA SMALL Abnormal NONE SEEN [facility] Comment on above: Performed By: #### U MICRO, ERUR #### [facility] [address] [place] [address] Dr. Jerald Poon Bacteria identified Cx Nom (U) INDICATED Normal [facility] Comment on above: Performed By: #### U MICRO, ERUR #### [facility] [address] [place] [address] Dr. Jerald Poon CAST NONE SEEN Normal NONE SEEN [facility] Comment on above: Performed By: #### U MICRO, ERUR #### [facility] [address] [place] [address] Dr. Jerald Poon Crystals LM Nom (Urine sed) NONE SEEN Normal NONE SEEN [facility] Comment on above: Performed By: #### U MICRO, ERUR #### [facility] [address] [place] [address] Dr. Jerald Poon Epithelial cells LM Ql (Urine sed) FEW Abnormal NONE SEEN /RARE [facility] Comment on above: Performed By: #### U MICRO, ERUR #### [facility] [address] [place] [address] Dr. Jerald Poon MUCOUS NONE SEEN Normal NONE SEEN [facility] Comment on above: Performed By: #### U MICRO, ERUR #### [facility] [address] [place] [address] Dr. Jerald Poon RBC NONE SEEN Abnormal 0-2 [facility] Comment on above: Performed By: #### U MICRO, ERUR #### [facility] [address] [place] [address] Dr. Jerald Poon WBC 2-5 Abnormal NONE SEEN [facility] Comment on above: Performed By: #### U MICRO, ERUR #### [facility] [address] [place] [address] Dr. Jerald Poon CBC AUTO DIFFon 04-01-2022 BASO # 0.0 103/ul Normal 0.0-0.1 [facility] Comment on above: Performed By: #### C BC #### [facility] [address] [place] [address] Dr. Jerald Poon Basophils/100 WBC (Bld) 0.5 % Normal 0.2-2.0 [facility] Comment on above: Performed By: #### C BC #### [facility] [address] [place] [address] Dr. Jerald Poon EO # 0.1 103/ul Normal 0.0-0.7 [facility] Comment on above: Performed By: #### C BC #### [facility] [address] [place] [address] Dr. Jerald Poon Eosinophils/100 WBC (Bld) 1.7 % Normal 0.9-7.0 [facility] Comment on above: Performed By: #### C BC #### [facility] [address] [place] [address] Dr. Jerald Poon Erythrocyte distribution width (RBC) [Ratio] 14.2 % Normal 11.0-15.0 [facility] Comment on above: Performed By: #### C BC #### [facility] [address] [place] [address] Dr. Jerald Poon Hematocrit (Bld) [Volume fraction] 36.7 % Normal 36.0-48.0 [facility] Comment on above: Performed By: #### C BC #### [facility] [address] [place] [address] Dr. Jerald Poon Hemoglobin (Bld) [Mass/Vol] 12.1 g/dL Normal 12.0-16.0 [facility] Comment on above: Performed By: #### C BC #### [facility] [address] [place] [address] Dr. Jerald Poon IG # 0.01 10e3/ul Normal 0.00-0.03 [facility] Comment on above: Performed By: #### C BC #### [facility] [address] [place] [address] Dr. Jerald Poon IG % 0.1 % Normal 0.0-0.5 [facility] Comment on above: Performed By: #### C BC #### [facility] [address] [place] [address] Dr. Jerald Poon LYMPH # 2.3 103/ul Normal 1.2-3.8 [facility] Comment on above: Performed By: #### C BC #### [facility] [address] [place] [address] Dr. Jerald Poon Lymphocytes/100 WBC (Bld) 30.8 % Normal 20.5-60.0 [facility] Comment on above: Performed By: #### C BC #### [facility] [address] [place] [address] Dr. Jerald Poon MANUAL DIFF REQ NO Normal [facility] Comment on above: Performed By: #### C BC #### [facility] [address] [place] [address] Dr. Jerald Poon MCH (RBC) [Entitic mass] 27.3 pg Normal 26.7-34.0 [facility] Comment on above: Performed By: #### C BC #### [facility] [address] [place] [address] Dr. Jerald Poon MCHC (RBC) [Mass/Vol] 33.0 g/dL Normal 29.9-35.2 [facility] Comment on above: Performed By: #### C BC #### [facility] [address] [place] [address] Dr. Jerald Poon MCV (RBC) [Entitic vol] 82.7 fL Normal 81.0-99.0 [facility] Comment on above: Performed By: #### C BC #### [facility] [address] [place] [address] Dr. Jerald Poon MONO # 0.8 103/ul Normal 0.3-0.8 [facility] Comment on above: Performed By: #### C BC #### [facility] [address] [place] [address] Dr. Jerald Poon Monocytes/100 WBC (Bld) 10.6 % Normal 1.7-12.0 [facility] Comment on above: Performed By: #### C BC #### [facility] [address] [place] [address] Dr. Jerald Poon NEUT # 4.2 103/ul Normal 1.4-6.5 [facility] Comment on above: Performed By: #### C BC #### [facility] [address] [place] [address] Dr. Jerald Poon Neutrophils/100 WBC (Bld) 56.3 % Normal 43.0-75.0 [facility] Comment on above: Performed By: #### C BC #### [facility] [address] [place] [address] Dr. Jerald Poon Platelet mean volume (Bld) [Entitic vol] 10.2 fL Normal 9.5-13.5 [facility] Comment on above: Performed By: #### C BC #### [facility] [address] [place] [address] Dr. Jerald Poon PLT 375 103/ul Normal 150-450 [facility] Comment on above: Performed By: #### C BC #### [facility] [address] [place] [address] Dr. Jerald Poon RBC 4.44 106/ul Normal 4.20-5.40 [facility] Comment on above: Performed By: #### C BC #### [facility] [address] [place] [address] Dr. Jerald Poon WBC 7.5 103/ul Normal 4.0-11.0 [facility] Comment on above: Performed By: #### C BC #### [facility] [address] [place] [address] Dr. Jerald Poon ER URINE PROFILEon 2 Bilirubin Ql (U) Negative Normal NEGATIVE [facility] Comment on above: Performed By: #### C BC #### [facility] [address] [place] [address] Dr. Jerald Poon Clarity (U) CLEAR Normal CLEAR [facility] Comment on above: Performed By: #### C BC #### [facility] [address] [place] [address] Dr. Jerald Poon Color (U) YELLOW Normal YELLOW [facility] Comment on above: Performed By: #### C BC #### [facility] [address] [place] [address] Dr. Jerald CEBALLOS A micrscopic examination will be performed if indicated. Normal [facility] Comment on above: Performed By: #### C BC #### [facility] [address] [place] [address] Dr. Jerald Poon Glucose Ql (U) Negative Normal NEGATIVE [facility] Comment on above: Performed By: #### C BC #### [facility] [address] [place] [address] Dr. Jerald Poon Hemoglobin Ql (U) Negative Normal NEGATIVE [facility] Comment on above: Performed By: #### C BC #### [facility] [address] [place] [address] Dr. Jerald Poon Ketones Ql (U) Negative Normal NEGATIVE [facility] Comment on above: Performed By: #### C BC #### [facility] [address] [place] [address] Dr. Jerald Poon LEUKOCYTES Negative Normal NEGATIVE [facility] Comment on above: Performed By: #### C BC #### [facility] [address] [place] [address] Dr. Jerald Poon Nitrite Ql (U) Negative Normal NEGATIVE [facility] Comment on above: Performed By: #### C BC #### [facility] [address] [place] [address] Dr. Jerald Poon pH (U) 7.0 [pH] Normal 5-9 [facility] Comment on above: Performed By: #### C BC #### [facility] [address] [place] [address] Dr. Jerald Poon SPEC GRAVITY 1.025 Normal 1.005-<=1.02 5 [facility] Comment on above: Performed By: #### C BC #### [facility] [address] [place] [address] Dr. Jerald Poon UA PROTEIN Negative Normal NEGATIVE/ TRACE [facility] Comment on above: Performed By: #### C BC #### [facility] [address] [place] [address] Dr. Jerald Poon UR MICRO IND NOT INDICATED Normal [facility] Comment on above: Performed By: #### C BC #### [facility] [address] [place] [address] Dr. Jerald Poon Urobilinogen Qn (U) 1.0 {Lyly'U}/dL Normal 0.2 - 1. 0 [facility] Comment on above: Performed By: #### C BC #### [facility] [address] [place] [address] Dr. Jerald Poon PREG QUANT HCGon 04-01-2022 HCG QUANT 1 mIU/mL Normal [facility] Comment on above: Performed By: #### P REGQNT #### [facility] [address] [place] [address] Dr. Jerald Poon HCG RANGE SEE BELOW Normal [facility] Comment on above: Result Comment: 5-50 0.2-1 WEEK 50-500 1-2 WEEKS 100-5,000 2-3 WEEKS 500-10,000 3-4 WEEKS 1,000-50,000 4-5 WEEKS 10,000-100,000 5-6 WEEKS 15,000-200,000 6-8 WEEKS 10,000-100,000 2-3 MONTHS Performed By: #### P REGQNT #### [facility] [address] [place] [address] Dr. Jerald Poon PROF 14(COMP METB)on 022 Albumin [Mass/Vol] 3.6 g/dL Normal 3.4-5.0 [facility] Comment on above: Performed By: #### C MP #### [facility] [address] [place] [address] Dr. Jerald Poon Albumin/Globulin [Mass ratio] 0.8 {ratio} Normal [facility] Comment on above: Performed By: #### C MP #### [facility] [address] [place] [address] Dr. Jerald Poon ALP [Catalytic activity/Vol] 65 U/L Normal 46-116 [facility] Comment on above: Performed By: #### C MP #### [facility] [address] [place] [address] Dr. Jerald Poon ALT [Catalytic activity/Vol] 22 U/L Normal 14-59 [facility] Comment on above: Performed By: #### C MP #### [facility] [address] [address] [address] Jerald Poon Anion gap [Moles/Vol] 10.3 mmol/L Normal [facility] Comment on above: Performed By: #### C MP #### [facility] [address] [place] [address] Dr. Jerald Poon AST [Catalytic activity/Vol] 14 U/L Critically low 15-37 [facility] Comment on above: Performed By: #### C MP #### [facility] [address] [place] [address] Dr. Jerald Poon Bilirubin [Mass/Vol] 0.1 mg/dL Critically low 0.2-1.0 [facility] Comment on above: Performed By: #### C MP #### [facility] [address] [place] [address] Dr. Jerald Poon Calcium [Mass/Vol] 8.6 mg/dL Normal 8.5-10.1 [facility] Comment on above: Performed By: #### C MP #### [facility] [address] [place] [address] Dr. Jerald Poon Chloride [Moles/Vol] 104 mmol/L Normal 98-107 [facility] Comment on above: Performed By: #### C MP #### [facility] [address] [address] [address] Jerald Poon CO2 [Moles/Vol] 28.1 mmol/L Normal 21.0-32.0 [facility] Comment on above: Performed By: #### C MP #### [facility] [address] [address] [address] Jerald Poon Creatinine [Mass/Vol] 0.99 mg/dL Normal 0.55-1.02 [facility] Comment on above: Performed By: #### C MP #### [facility] [address] [address] [address] Jerald Poon EGFR-AF [place] >60 Normal >=60 [facility] Comment on above: Performed By: #### C MP #### [facility] [address] [address] [address] Jerald Poon EGFR-NON AF [place] >60 Normal >=60 [facility] Comment on above: Performed By: #### C MP #### [facility] [address] [address] [address] Jerald Poon Globulin (S) [Mass/Vol] 4.5 g/dL Normal [facility] Comment on above: Performed By: #### C MP #### [facility] [address] [place] [address] Dr. Jerald Poon Glucose [Mass/Vol] 94 mg/dL Normal 74-106 [facility] Comment on above: Performed By: #### C MP #### [facility] [address] [address] [address] Jerald Poon Potassium [Moles/Vol] 3.4 mmol/L Critically low 3.5-5.1 [facility] Comment on above: Performed By: #### C MP #### [facility] [address] [place] [address] Dr. Jerald Poon Protein [Mass/Vol] 8.1 g/dL Normal 6.4-8.2 [facility] Comment on above: Performed By: #### C MP #### [facility] [address] [address] [address] Jerald Poon Sodium [Moles/Vol] 139 mmol/L Normal 136-145 [facility] Comment on above: Performed By: #### C MP #### [facility] [address] [address] [address] Jerald Poon Urea nitrogen [Mass/Vol] 8.0 mg/dL Normal 7.0-18.0 [facility] Comment on above: Performed By: #### C MP #### [facility] [address] [place], [place] [address] Dr. Jerald Poon Urea nitrogen/Creatinine [Mass ratio] 8.1 mg/mg Normal [facility] Comment on above: Performed By: #### C MP #### [facility] [address] [place], [place] [address] Dr. Jerald Poon US PELVIS TRANSVAGon 022 [...] LUH MANRIQUE Date: 2022-04-01 21:55 Normal [facility] Automated erythrocytes count in urine sediment (number/area)Ordered By: Anders Sesay on 10-19-2021 RBC Auto (Urine sed) [#/Area] 1-2 [HPF] [facility] Automated leukocytes count i n urine sediment (number/area)Ordered By: Anders Sesay on 10-19-2021 WBC Auto (Urine sed) [#/Area] 3-4 [HPF] [facility] Basophils Auto (Bld) [#/Vol] Ordered By: Anders Sesay on 10-19-2021 Basophils (Bld) [#/Vol] 0.1 10*3/uL 0.0-0.2 [facility] Basophils/100 WBC Auto (Bld) Ordered By: Anders Sesay on 10-19-2021 Basophils/100 WBC (Bld) 0.6 % [facility] Bilirubin Test strip Ql (U)O rdered By: Anders Sesay on 10-19-2021 Bilirubin Ql (U) Negative Negative [facility] Blood hemoglobin measurement (mass/volume)Ordered By: Anders Sesay on 10-19-2021 Hemoglobin (Bld) [Mass/Vol] 13.2 g/dL 11.8-15.4 [facility] Blood leukocytes automated c ount (number/volume)Ordered By: Anders Sesay on 10-19-2021 WBC (Bld) [#/Vol] 9.1 10*3/uL 4.5-11.0 [facility] Body fluid albumin measureme nt (mass/volume)Ordered By: Anders Sesay on 10-19-2021 Albumin (Body fld) [Mass/Vol] 3.8 g/dL 3.2-5.5 [facility] Color Auto (U)Ordered By: Jason Sesay on 10-19-2021 Color (U) Yellow Yellow [facility] Creatinine and Glomerular fi ltration rate.predicted panel (S/P/Bld)Ordered By: Anders Sesay on 10-19-2021 Creatinine [Mass/Vol] 0.87 mg/dL 0.44-1.03 [facility] Eosinophils Auto (Bld) [#/Vo l]Ordered By: Anders Sesay on 10-19-2021 Eosinophils (Bld) [#/Vol] 0.1 10*3/uL 0.0-0.45 [facility] Eosinophils/100 WBC Auto (Bl d)Ordered By: Anders Sesay on 10-19-2021 Eosinophils/100 WBC (Bld) 0.9 % [facility] Erythrocyte distribution wid th Auto (RBC) [Ratio]Ordered By: Anders Sesay on 10-19-2021 Erythrocyte distribution width (RBC) [Ratio] 16.4 % 11.9-15.3 [facility] Estimated glomerular filtrat ion rate (GFR) non- AmericanOrdered By: Anders Sesay on 10-19-2021 GFR/1.73 sq M.predicted among non-blacks MDRD (S/P/Bld) [Vol rate/Area] > 60 mL/Min [facility] Globulin Calc (S) [Mass/Vol] Ordered By: Anders Sesay on 10-19-2021 Globulin (S) [Mass/Vol] 4.3 g/dL [facility] HCG ( test) IA.rapi d Ql (U)Ordered By: Anders Sesay on 10-19-2021 HCG ( test) Ql (U) Negative [facility] Hematocrit Auto (Bld) [Volum e fraction]Ordered By: Anders Sesay on 10-19-2021 Hematocrit (Bld) [Volume fraction] 40.2 % 34.0-46.4 [facility] Ketones Auto test strip (U) [Mass/Vol]Ordered By: Anders Sesay on 10-19-2021 Ketones (U) [Mass/Vol] Negative Negative [facility] - Hematology and Cell countsOrdered By: Anders Sesay on 10-19-2021 Nucleated RBC/100 WBC (Bld) [Ratio] 0.2 % 0-0.5 [facility] - UrinalysisOrder ed By: Anders Sesay on 10-19-2021 Hyaline casts LM Ql (Urine sed) 0-8 [LPF] [facility] Lymphocytes Auto (Bld) [#/Vo l]Ordered By: Anders Sesay on 10-19-2021 Lymphocytes (Bld) [#/Vol] 2.4 10*3/uL 1.00-4.8 [facility] Lymphocytes/100 WBC Auto (Bl d)Ordered By: Anders Sesay on 10-19-2021 Lymphocytes/100 WBC (Bld) 26.7 % [facility] MCH Auto (RBC) [Entitic mass ]Ordered By: Anders Sesay on 10-19-2021 MCH (RBC) [Entitic mass] 26.3 pg 24.7-34.3 [facility] MCHC Auto (RBC) [Mass/Vol]Or dered By: Anders Sesay on 10-19-2021 MCHC (RBC) [Mass/Vol] 32.9 g/dL 32.0-35.0 [facility] MCV Auto (RBC) [Entitic vol] Ordered By: Anders Sesay on 10-19-2021 MCV (RBC) [Entitic vol] 80.1 fL 80-100 [facility] Monocytes Auto (Bld) [#/Vol] Ordered By: Anders Sesay on 10-19-2021 Monocytes (Bld) [#/Vol] 0.7 10*3/uL 0.0-0.8 [facility] Monocytes/100 WBC Auto (Bld) Ordered By: Anders Sesay on 10-19-2021 Monocytes/100 WBC (Bld) 7.6 % [facility] Neutrophils Auto (Bld) [#/Vo l]Ordered By: Anders Sesay on 10-19-2021 Neutrophils (Bld) [#/Vol] 5.8 10*3/uL 1.8-7.7 [facility] Neutrophils/100 WBC Auto (Bl d)Ordered By: Anders Sesay on 10-19-2021 Neutrophils/100 WBC (Bld) 64.2 % [facility] Nitrite Test strip Ql (U)Ord ered By: Anders Sesay on 10-19-2021 Nitrite Ql (U) Negative Negative [facility] No Panel InformationOrdered By: Anders Sesay on 10-19-2021 Estimated GFR () > 60 mL/Min [facility] Comment on above: GFR estimated refere nce range: According to KDOQI guidelines, <60 ml/min/1.73m2 is sufficient to diagnose a patient with chronic kidney disease. Pharmacy Creatinine Clearance (Chem 147.41 [facility] Platelet mean volume Auto (B ld) [Entitic vol]Ordered By: Anders Sesay on 10-19-2021 Platelet mean volume (Bld) [Entitic vol] 8.6 fL 6.3-10.7 [facility] Platelets Auto (Bld) [#/Vol] Ordered By: Andres Sesay on 10-19-2021 Platelets (Bld) [#/Vol] 395 10*3/uL 150-450 [facility] Protein Auto test strip (U) [Mass/Vol]Ordered By: Anders Sesay on 10-19-2021 Protein (U) [Mass/Vol] Negative Negative [facility] Protein [Mass/volume] in Ser um or PlasmaOrdered By: Anders Sesay on 10-19-2021 Protein [Mass/Vol] 8.1 g/dL 6.1-7.9 [facility] RBC Auto (Bld) [#/Vol]Ordere d By: Anders Sesay on 10-19-2021 RBC (Bld) [#/Vol] 5.02 10*6/uL 3.60-5.00 [facility] Serum or plasma alanine ayoub otransferase measurement without P-5'-P (enzymatic activiOrdered By: Anders Sesay on 10-19-2021 ALT No additional P-5'-P [Catalytic activity/Vol] 20 U/L 10-60 [facility] Serum or plasma albumin/glob ulin mass ratioOrdered By: Anders Sesay on 10-19-2021 Albumin/Globulin [Mass ratio] 0.9 {ratio} [facility] Serum or plasma alkaline cosmo sphatase measurement (enzymatic activity/volume)Ordered By: Anders Sesay on 10-19-2021 ALP [Catalytic activity/Vol] 55 U/L 32-92 [facility] Serum or plasma aspartate am inotransferase measurement (enzymatic activity/volume)Ordered By: Anders Sesay on 10-19-2021 AST [Catalytic activity/Vol] 17 U/L 10-42 [facility] Serum or plasma calcium joann urement (mass/volume)Ordered By: Anders Sesay on 10-19-2021 Calcium [Mass/Vol] 9.1 mg/dL 8.2-10.2 [facility] Serum or plasma chloride adan surement (moles/volume)Ordered By: Anders Sesay on 10-19-2021 Chloride [Moles/Vol] 103 mmol/L 95-114 [facility] Serum or plasma glucose joann urement (mass/volume)Ordered By: Anders Sesay on 10-19-2021 Glucose [Mass/Vol] 105 mg/dL 70-100 [facility] Comment on above: ADA recommended refe rence range Random Glucose Reference Range is dependent on time and content of last meal. Glucose of more than 200 mg/dL in a nonstressed, ambulatory subject supports the diagnosis of Diabetes Mellitus. Serum or plasma potassium me asurement (moles/volume)Ordered By: Anders Sesay on 10-19-2021 Potassium [Moles/Vol] 3.7 mmol/L 3.5-5.1 [facility] Serum or plasma sodium measu rement (moles/volume)Ordered By: Anders Sesay on 10-19-2021 Sodium [Moles/Vol] 137 mmol/L 136-146 [facility] Serum or plasma total biliru bin measurement (mass/volume)Ordered By: Anders Sesay on 10-19-2021 Bilirubin [Mass/Vol] 0.3 mg/dL 0.3-1.2 [facility] Serum or plasma total carbon dioxide measurement (moles/volume)Ordered By: Anders Sesay on 10-19-2021 CO2 [Moles/Vol] 24.2 mmol/L 22.0-30.0 [facility] Serum or plasma urea nitroge n measurement (mass/volume)Ordered By: Anders Sesay on 10-19-2021 Urea nitrogen [Mass/Vol] 7 mg/dL 9-23 [facility] Specific gravity Auto test s trip (U) [Rel density]Ordered By: Anders Seasy on 10-19-2021 Specific gravity (U) [Rel density] 1.014 1.001-1.030 [facility] Squamous epithelial cells de tection in urine sediment by light microscopyOrdered By: Anders Sesay on 10-19-2021 Epithelial cells.squamous LM Ql (Urine sed) 3-4 [HPF] [facility] Urine bacteria detection by automated methodOrdered By: Anders Sesay on 10-19-2021 Bacteria Auto Ql (U) 1+ None Seen [facility] Urine clarity by refractomet ry automatedOrdered By: Anders Sesay on 10-19-2021 Clarity Refractometry automated (U) Clear Clear [facility] Urine glucose measurement by automated test strip (mass/volume)Ordered By: Anders Sesay on 10-19-2021 Glucose Auto test strip (U) [Mass/Vol] Normal mg/dL Normal [facility] Urine hemoglobin detection b y automated test stripOrdered By: Anders Sesay on 10-19-2021 Hemoglobin Auto test strip Ql (U) Negative Negative [facility] Urine leukocyte esterase det ection by automated test stripOrdered By: Anders Sesay on 10-19-2021 Leukocyte esterase Auto test strip Ql (U) 1+ Negative [facility] Urobilinogen Auto test strip (U) [Mass/Vol]Ordered By: Anders Sesay on 10-19-2021 Urobilinogen (U) [Mass/Vol] Normal mg/dL Normal [facility] pH Auto test strip (U)Ordere d By: Anders Sesay on 10-19-2021 pH (U) 5.5 [pH] 5.0-9.0 [facility] US DUP ABD PEL RETRO [...] MD 07/14/20 Edited Result - FINAL Normal [facility] US NON OB TRANSVAGINALon US [...] MD 07/14/20 Edited Result - FINAL Normal [facility] Chlamydia/GC,DNA Ampon 07-10 Chlamydia Probe Negative Normal NEG [facility] Comment on above: Result Comment: [...] Performed By: #### U HCG, UAMIC #### [facility] [address] [place], [place] [id number] [employer]: Campos Avilez MD Gonorrhea Probe Negative Normal NEG [facility] Comment on above: Result Comment: [...] Performed By: #### U HCG, UAMIC #### [facility] [address] [place], [place] [id number] [employer]: Campos Avilez MD Cult,Urineon 07-09-2020 Cult,Urine Specimen Description .CLEAN CATCH URINE Special Requests NOT REPORTED Culture ESCHERICHIA COLI >[id number] CFU/ML Report Status FINAL 07/09/2020 SUSCEPTIBILITY Organism [...] <=20 SUSCEPTIBLE Piperacillin/Tazobac her <=4 SUSCEPTIBLE Normal [facility] Comment on above: Performed By: #### U HCG, UAMIC #### [place] [address] [employer]: Campos Avilez MD ABO/Rh(D)on 07-08-2020 ABO/Rh(D) Positive Normal [facility] Comment on above: Performed By: #### A [facility] #### [place] [address] [employer]: Campos Avilez MD CBC with Diffon 07-08-2020 Abs. Basophil 0.04 k/uL Normal 0.00-0.20 [facility] Comment on above: Performed By: #### C P, CDP, COSMO, BHCG, MG, VD25, LIP #### [place] [address] [employer]: Campos Avilez MD Abs.Imm.Granulocyte 0.04 k/uL Normal 0.00-0.30 [facility] Comment on above: Performed By: #### C P, CDP, COSMO, BHCG, MG, VD25, LIP #### [facility] [employer] [address] [place] [address] [employer]: Campos Avilez MD Abs.Neutrophil (Seg) 8.16 k/uL High 1.80-8.00 [facility] Comment on above: Performed By: #### C P, CDP, COSMO, BHCG, MG, VD25, LIP #### [address] [address] [employer]: Campos Avilez MD Basophils/100 WBC (Bld) 0 % Normal 0-2 [facility] Comment on above: Performed By: #### C P, CDP, COSMO, BHCG, MG, VD25, LIP #### [address] [address] [employer]: Campos Avilez MD Eosinophils (Bld) [#/Vol] 0.10 10*3/uL Normal 0.00-0.44 [facility] Comment on above: Performed By: #### C P, CDP, COSMO, BHCG, MG, VD25, LIP #### [address] [address] [employer]: Campos Avilez MD Eosinophils/100 WBC (Bld) 1 % Normal 1-4 [facility] Comment on above: Performed By: #### C P, CDP, COSMO, BHCG, MG, VD25, LIP #### [address] [address] [employer]: Campos Avilez MD Erythrocyte distribution width (RBC) [Ratio] 14.0 % Normal 11.8-14.4 [facility] Comment on above: Performed By: #### C P, CDP, COSMO, BHCG, MG, VD25, LIP #### [address] [address] [employer]: Campos Avilez MD Hematocrit (Bld) [Volume fraction] 34.3 % Low 36.3-47.1 [facility] Comment on above: Performed By: #### C P, CDP, COSMO, BHCG, MG, VD25, LIP #### [address] [address] [employer]: Campos Avilez MD Hemoglobin (Bld) [Mass/Vol] 11.1 g/dL Low 11.9-15.1 [facility] Comment on above: Performed By: #### C P, CDP, COSMO, BHCG, MG, VD25, LIP #### [address] [address] [employer]: Campos Avilez MD Immature granulocytes (Bld) [#/Vol] 0 % Normal 0 [facility] Comment on above: Performed By: #### C P, CDP, COSMO, BHCG, MG, VD25, LIP #### [place] [address] [employer]: Campos Avilez MD Lymphocytes (Bld) [#/Vol] 1.77 10*3/uL Normal 1.20-5.20 [facility] Comment on above: Performed By: #### C P, CDP, COSMO, BHCG, MG, VD25, LIP #### [place] [address] [employer]: Campos Avilez MD Lymphocytes/100 WBC (Bld) 16 % Low 25-45 [facility] Comment on above: Performed By: #### C P, CDP, COSMO, BHCG, MG, VD25, LIP #### [place] [address] [employer]: Campos Avilez MD MCH (RBC) [Entitic mass] 26.6 pg Normal 25.0-35.0 [facility] Comment on above: Performed By: #### C P, CDP, COSMO, BHCG, MG, VD25, LIP #### [address] [address] [employer]: Campos Avilez MD MCHC (RBC) [Mass/Vol] 32.4 g/dL Normal 28.4-34.8 [facility] Comment on above: Performed By: #### C P, CDP, COSMO, BHCG, MG, VD25, LIP #### [address] [address] [employer]: Campos Avilez MD MCV (RBC) [Entitic vol] 82.3 fL Normal 78.0-102.0 [facility] Comment on above: Performed By: #### C P, CDP, COSMO, BHCG, MG, VD25, LIP #### [address] [address] [employer]: Campos Avilez MD Monocytes (Bld) [#/Vol] 0.73 10*3/uL Normal 0.10-1.40 [facility] Comment on above: Performed By: #### C P, CDP, COSMO, BHCG, MG, VD25, LIP #### [address] [address] [employer]: Campos Avilez MD Monocytes/100 WBC (Bld) 7 % Normal 2-8 [facility] Comment on above: Performed By: #### C P, CDP, COSMO, BHCG, MG, VD25, LIP #### [address] [address] [employer]: Campos Avilez MD Neutrophil (Seg) 75 % High 34-64 [facility] Comment on above: Performed By: #### C P, CDP, COSMO, BHCG, MG, VD25, LIP #### [address] [address] [employer]: Campos Avilez MD NRBC Automated 0.0 per 100 WBC Normal 0.0 [facility] Comment on above: Performed By: #### C P, CDP, COSMO, BHCG, MG, VD25, LIP #### [address] [address] [employer]: Campos Avilez MD Platelet mean volume (Bld) [Entitic vol] 11.8 fL Normal 8.1-13.5 [facility] Comment on above: Performed By: #### C P, CDP, COSMO, BHCG, MG, VD25, LIP #### [address] [address] [employer]: Campos Avilez MD Platelets (Bld) [#/Vol] 288 10*3/uL Normal 138-453 [facility] Comment on above: Performed By: #### C P, CDP, COSMO, BHCG, MG, VD25, LIP #### [address] [address] [employer]: Campos Avilez MD RBC (Bld) [#/Vol] 4.17 10*6/uL Normal 3.95-5.11 [facility] Comment on above: Performed By: #### C P, CDP, COSMO, BHCG, MG, VD25, LIP #### [address] [address] [employer]: Campos Avilez MD WBC (Bld) [#/Vol] 10.8 10*3/uL Normal 4.5-13.5 [facility] Comment on above: Performed By: #### C P, CDP, COSMO, BHCG, MG, VD25, LIP #### [address] [address] [employer]: Campos Avilez MD Auto Diff Performed NOT REPORTED Normal [facility] Comment on above: Performed By: #### C P, CDP, COSMO, BHCG, MG, VD25, LIP #### [address] [address] [employer]: Cmapos Avilez MD Platelets (Bld) [#/Vol] NOT REPORTED Normal [facility] Comment on above: Performed By: #### C P, CDP, COSMO, BHCG, MG, VD25, LIP #### [address] [place] [address] [employer]: Campos Avilez MD RBC morphology finding Nom (Bld) NOT REPORTED Normal [facility] Comment on above: Performed By: #### C P, CDP, COSMO, BHCG, MG, VD25, LIP #### [facility] [address] [place] [address] [employer]: Campos Avilez MD WBC Morphology NOT REPORTED Normal [facility] Comment on above: Performed By: #### C P, CDP, COSMO, BHCG, MG, VD25, LIP #### [address] [address] [employer]: Campos Avilez MD Calcium, Ionicon 07-08-2020 Calcium [Mass/Vol] 1.18 mmol/L Normal 1.13-1.33 [facility] Comment on above: Performed By: #### I OCAL #### [address] [address] [employer]: Campos Avilez MD Calcium, Ionizedon Calcium [Mass/Vol] 1.18 mmol/L 1.13 - 1. 33 mmol/L [facility], [place] Comp Metabolic Profon 2020 (cont.) Normal [facility] Comment on above: Result Comment: Aver age GFR for <20 years old not available. Chronic Kidney Disease: <60 mL/min/1.73sq m Kidney failure: <15 mL/min/1.73sq m eGFR calculated using average adult body mass. Additional eGFR calculator available at: http://www.Accurence.com/multiple_crcl_2012.htm Performed By: #### C P, CDP, COSMO, BHCG, MG, VD25, LIP #### [address] [address] [employer]: Campos Avilez MD Albumin [Mass/Vol] 2.3 g/dL Low 3.5-5.2 [facility] Comment on above: Performed By: #### C P, CDP, COSMO, BHCG, MG, VD25, LIP #### [address] [address] [employer]: Campos Avilez MD Albumin/Globulin [Mass ratio] 0.9 {ratio} Low 1.0-2.5 [facility] Comment on above: Performed By: #### C P, CDP, COSMO, BHCG, MG, VD25, LIP #### [address] [address] [employer]: Campos Avilez MD Alkaline Phos 41 U/L Normal 35-104 [facility] Comment on above: Result Comment: SPEC IMEN MODERATELY HEMOLYZED, RESULTS MAY BE ADVERSELY AFFECTED Performed By: #### C P, CDP, COSMO, BHCG, MG, VD25, LIP #### [address] [address] [employer]: Campos Avilez MD ALT [Catalytic activity/Vol] 11 U/L Normal 5-33 [facility] Comment on above: Result Comment: SPEC IMEN MODERATELY HEMOLYZED, RESULTS MAY BE ADVERSELY AFFECTED Performed By: #### C P, CDP, COSMO, BHCG, MG, VD25, LIP #### [address] [address] [employer]: Campos Avilez MD Anion gap [Moles/Vol] 9 mmol/L Normal 9-17 [facility] Comment on above: Performed By: #### C P, CDP, COSMO, BHCG, MG, VD25, LIP #### [address] [address] [employer]: Campos Avilez MD AST [Catalytic activity/Vol] 28 U/L Normal <32 [facility] Comment on above: Result Comment: SPEC IMEN MODERATELY HEMOLYZED, RESULTS MAY BE ADVERSELY AFFECTED Performed By: #### C P, CDP, COSMO, BHCG, MG, VD25, LIP #### [facility] [employer] [address] [place] [address] [employer]: Campos Avilez MD Bilirubin Ql (U) <0.10 Low 0.3-1.2 [facility] Comment on above: Performed By: #### C P, CDP, COSMO, BHCG, MG, VD25, LIP #### [facility] [employer] [address] [place] [address] [employer]: Campos Avilez MD Calcium [Mass/Vol] 5.5 mg/dL Critically low 8.6-10.4 [facility] Comment on above: Performed By: #### C P, CDP, COSMO, BHCG, MG, VD25, LIP #### [facility] [employer] [address] [place] [address] [employer]: Campos Avilez MD Chloride [Moles/Vol] 118 mmol/L High 98-107 [facility] Comment on above: Performed By: #### C P, CDP, COSMO, BHCG, MG, VD25, LIP #### [facility] [employer] [address] [place] [address] [employer]: Campos Avilez MD CO2 [Moles/Vol] 14 mmol/L Low 20-31 [facility] Comment on above: Performed By: #### C P, CDP, COSMO, BHCG, MG, VD25, LIP #### [facility] [employer] [address] [place] [address] [employer]: Campos Avilez MD Creatinine [Mass/Vol] 0.60 mg/dL Normal 0.50-0.90 [facility] Comment on above: Performed By: #### C P, CDP, COSMO, BHCG, MG, VD25, LIP #### [address] [address] [employer]: Campos Avilez MD GFR,non Amer Pediatric GFR requires additional information. Refer to NKDEP website for Normal >60 [facility] Comment on above: Result Comment: calc ulator. Performed By: #### C P, CDP, COSMO, BHCG, MG, VD25, LIP #### [address] [address] [employer]: Campos Avilez MD Glucose [Mass/Vol] 84 mg/dL Normal 70-99 [facility] Comment on above: Performed By: #### C P, CDP, COSMO, BHCG, MG, VD25, LIP #### [address] [address] [employer]: Campos Avilez MD Potassium [Moles/Vol] 5.1 mmol/L Normal 3.7-5.3 [facility] Comment on above: Result Comment: SPEC IMEN MODERATELY HEMOLYZED, RESULTS MAY BE ADVERSELY AFFECTED Performed By: #### C P, CDP, COSMO, BHCG, MG, VD25, LIP #### [address] [address] [employer]: Campos Avilez MD Protein [Mass/Vol] 5.0 g/dL Low 6.4-8.3 [facility] Comment on above: Performed By: #### C P, CDP, COSMO, BHCG, MG, VD25, LIP #### [address] [address] [employer]: Campos Avilez MD Sodium [Moles/Vol] 141 mmol/L Normal 135-144 [facility] Comment on above: Performed By: #### C P, CDP, COSMO, BHCG, MG, VD25, LIP #### [address] [address] [employer]: Campos Avilez MD Urea nitrogen [Mass/Vol] 10 mg/dL Normal 6-20 [facility] Comment on above: Performed By: #### C P, CDP, COSMO, BHCG, MG, VD25, LIP #### [address] [address] [employer]: Campos Avilez MD BUN/CRE Ratio NOT REPORTED Normal 9-20 [facility] Comment on above: Performed By: #### C P, CDP, COSMO, BHCG, MG, VD25, LIP #### [facility] [address] [place] [address] [employer]: Campos Avilez MD GFR, Amer NOT REPORTED Normal >60 [facility] Comment on above: Performed By: #### C P, CDP, COSMO, BHCG, MG, VD25, LIP #### [facility] [employer] [address] [place] [address] [employer]: Campos Avilez MD Staging: NOT REPORTED Normal [facility] Comment on above: Performed By: #### C P, CDP, COSMO, BHCG, MG, VD25, LIP #### [facility] [employer] [address] [place] [address] [employer]: Campos Avilez MD HCG, ,Urineon 07-080 Beta HCG ( test) Ql (U) Negative Normal NEG [facility] Comment on above: Result Comment: [...] Performed By: #### U HCG, UAMIC #### [address] [address] [employer]: Campos Avilez MD HCG, Quanton 07-08-2020 HCG, Quant <1 Normal <5 [facility] Comment on above: Result Comment: [...] CDP, COSMO, BHCG, MG, VD25, LIP #### [facility] [address] [place] [address] [employer]: Campos Avilez MD Lipaseon 07-08-2020 Lipase [Catalytic activity/Vol] 15 U/L Normal 13-60 [facility] Comment on above: Performed By: #### C P, CDP, COSMO, BHCG, MG, VD25, LIP #### [facility] [address] [place] [address] [employer]: Campos Avilez MD Magnesiumon 07-08-2020 Magnesium [Mass/Vol] 1.2 mg/dL Low 1.7-2.2 [facility] Comment on above: Performed By: #### C P, CDP, COSMO, BHCG, MG, VD25, LIP #### [facility] [address] [place] [address] [employer]: Campos Avilez MD Interpretation and review of laboratory results Abnormal [place] Magnesium [Mass/Vol] 1.2 mg/dL Low 1.7 - 2 .2 mg/dL [place] Otheron 07-08-2020 Direct Exam Negative [place] , URINEon 1 Beta HCG ( test) Ql (U) Negative NEGATIVE [place] Comment on above: Specimens with hCG [...] 2.6 mg/dL 2.5 - 4 .8 mg/dL [place] Phosphorus, Inorg.on 021 Phosphorus, Inorg. 2.6 mg/dL Normal 2.5-4.8 [facility] Comment on above: Performed By: #### U HCG, UAMIC #### [facility] [employer] [address] [place] [address] [employer]: Campos Avilez MD NON OB TRANSVAGINALon Elia, Mhpn Incoming Radiant Results From [employer] - 07/08/2020 12:31 AM EST EXAMINATION: PELVIC [...] No evidence of ovarian torsion is noted. [place], [place] Unremarkable pelvic ultrasound. No evidence of ovarian torsion is noted. [place] EXAMINATION: PELVIC ULTRASOUND 07/07/2020 TECHNIQUE: Transvaginal [...] Free Fluid: No evidence of free fluid. [facility]- [place], [place] Urinalysis w/ Microon 2020 ----- Normal [facility] Comment on above: Performed By: #### U HCG, UAMIC #### [address] [address] [employer]: Campos Avilez MD Acetoacetic Acid,Ur Negative Normal NEG [facility] Comment on above: Performed By: #### U HCG, UAMIC #### [address] [address] [employer]: Campos Avilez MD Bacteria LM.HPF (Urine sed) [#/Area] MANY Abnormal NONE [facility] Comment on above: Performed By: #### U HCG, UAMIC #### [address] [address] [employer]: Campos Avilez MD Bilirubin, SemiQt,Ur Negative Normal NEG [facility] Comment on above: Performed By: #### U HCG, UAMIC #### [address] [address] [employer]: Campos Avilez MD Color (U) ORANGE Abnormal YEL [facility] Comment on above: Result Comment: INTE RPRET WITH CAUTION DUE TO INTENSE COLOR OF URINE. Performed By: #### U HCG, UAMIC #### [address] [address] [employer]: Campos Avilez MD Epithelial cells LM.HPF (Urine sed) [#/Area] 0 TO 2 Normal 0-5 [facility] Comment on above: Performed By: #### U HCG, UAMIC #### [address] [address] [employer]: Campos Avilez MD Glucose Ql (U) Negative Normal NEG [facility] Comment on above: Performed By: #### U HCG, UAMIC #### [address] [address] [employer]: Campos Avilez MD Hemoglobin, Ur LARGE Abnormal NEG [facility] Comment on above: Performed By: #### U HCG, UAMIC #### [address] [address] [employer]: Campos Avilez MD Leukocyte esterase Test strip Ql (U) MODERATE Abnormal NEG [facility] Comment on above: Performed By: #### U HCG, UAMIC #### [address] [address] [employer]: Campos Avilez MD Nitrite,Ur Positive Abnormal NEG [facility] Comment on above: Performed By: #### U HCG, UAMIC #### [address] [address] [employer]: Campos Avilez MD pH (U) 5.5 [pH] Normal 5.0-8.0 [facility] Comment on above: Performed By: #### U HCG, UAMIC #### [address] [address] [employer]: Campos Avilez MD Protein Ql (U) 2+ Abnormal NEG [facility] Comment on above: Performed By: #### U HCG, UAMIC #### [address] [address] [employer]: Campos Avilez MD RBC (U) [#/Vol] 50 TO 100 Normal 0-4 [facility] Comment on above: Result Comment: Refe rence range defined for non-centrifuged specimen. Performed By: #### U HCG, UAMIC #### [address] [address] [employer]: Campos Avilez MD Specific gravity (U) [Rel density] 1.021 Normal 1.005-1.030 [facility] Comment on above: Performed By: #### U HCG, UAMIC #### [address] [address] [employer]: Campos Avilez MD Turbidity TURBID Abnormal CLEAR [facility] Comment on above: Performed By: #### U HCG, UAMIC #### [address] [address] [employer]: Campos Avilez MD Urobilinogen,Ur Normal Normal NORM [facility] Comment on above: Performed By: #### U HCG, UAMIC #### [address] [address] [employer]: Campos Avilez MD WBC (U) [#/Vol] TOO NUMEROUS TO COUNT Normal 0-5 [facility] Comment on above: Performed By: #### U HCG, UAMIC #### [address] [address] [employer]: Campos Avilez MD Amorphous sediment LM Ql (Urine sed) NOT REPORTED Normal NONE [facility] Comment on above: Performed By: #### U HCG, UAMIC #### [address] [address] [employer]: Campos Avilez MD Casts LM.LPF (Urine sed) [#/Area] NOT REPORTED Normal 0-8 [facility] Comment on above: Performed By: #### U HCG, UAMIC #### [address] [address] [employer]: Campos Avilez MD Crystals LM Nom (Urine sed) NOT REPORTED Normal NONE [facility] Comment on above: Performed By: #### U HCG, UAMIC #### [address] [address] [employer]: Campos Avilez MD Epithelial, Renal NOT REPORTED Normal 0 [facility] Comment on above: Performed By: #### U HCG, UAMIC #### [address] [address] [employer]: Campos Avilez MD Mucus Strands NOT REPORTED Normal NONE [facility] Comment on above: Performed By: #### U HCG, UAMIC #### [address] [address] [employer]: Campos Avilez MD Other Observations NOT REPORTED Normal NREQ [facility] Comment on above: Performed By: #### U HCG, UAMIC #### [address] [address] [employer]: Campos Avilez MD Trichomonas NOT REPORTED Normal NONE [facility] Comment on above: Performed By: #### U HCG, UAMIC #### [address] [address] [employer]: Campos Avilez MD Yeast LM Ql (Urine sed) NOT REPORTED Normal [facility] Comment on above: Performed By: #### U HCG, UAMIC #### [facility] [address] [place] [address] [employer]: Campos Avilez MD Urinalysis with microscopico n 07-08-2020 Amorphous, UA NOT REPORTED None [facility] [place] [place] Bacteria, UA MANY Abnormal None [facility] [place] Bilirubin Urine Negative NEGATIVE [facility] [place] Casts UA NOT REPORTED [facility] [place] Color, UA ORANGE Abnormal YELLOW [facility], [place] Comment on above: INTERPRET WITH CAUTI ON DUE TO INTENSE COLOR OF URINE. Crystals, UA NOT REPORTED None /HPF [place] Epithelial Cells UA 0 TO 2 [place] Glucose, Ur Negative NEGATIVE [place] Interpretation and review of laboratory results Abnormal [place] Ketones Ql (U) Negative NEGATIVE [place] Leukocyte esterase Test strip Ql (U) MODERATE Abnormal NEGATIVE [place] Mucus, UA NOT REPORTED None [place] Nitrite, Urine Positive Abnormal NEGATIVE [place] Other Observations UA NOT REPORTED NOT REQ. M [place], [place] pH, UA 5.5 [place] Protein (U) [Mass/Vol] 2+ Abnormal NEGATIVE [place] RBC (U) [#/Vol] 50 TO 100 [place] Comment on above: Reference range defi sonia for non-centrifuged specimen. Renal Epithelial, UA NOT REPORTED 0 /HPF [place] Specific [place], UA 1.021 [place], [place] Trichomonas, UA NOT REPORTED None [place] Turbidity UA TURBID Abnormal CLEAR [place] Urine Hgb LARGE Abnormal NEGATIVE [place] Urobilinogen, Urine Normal Normal [place] WBC, UA TOO NUMEROUS TO COUNT [place] Yeast, UA NOT REPORTED None [place] VAGINITIS DNA PROBEon 2020 Direct Exam Positive Abnormal [place] Direct Exam Method of testing is a DNA probe intended for detection and identification of Samantha species, Gardnerella vaginalis, and Trichomonas vaginalis nucleic acid in vaginal fluid specimens from patients with symptoms of vaginitis/vaginosis. [place] Interpretation and review of laboratory results Abnormal [place] Special Requests NOT REPORTED [place] Specimen Description .VAGINA [place] Vaginitis DNA Probeon 2020 Vaginitis DNA [...] of vaginitis/vaginosis. Report Status FINAL 07/08/2020 Normal [facility] Comment on above: Performed By: #### U HCG, UAMIC #### [employer] [address] [place] [id number] [employer]: Campos Avilez MD Vitamin D 25 Hydroxyon 07-08 Interpretation and review of laboratory results Abnormal [place], [place] Vit D, 25-Hydroxy 12.1 ng/mL Low 30 - 100 ng/mL [place], [place] Comment on above: Reference Range: Vitamin D status Range Deficiency <20 ng/mL Mild Deficiency 20-30 ng/mL Sufficiency 30-100 ng/mL Toxicity >100 ng/mL Vitamin D 25 OHon 07-08-2020 Vitamin D 25 OH 12.1 ng/mL Low 30.0-100.0 [facility] Comment on above: Result Comment: Reference Range: Vitamin D status Range Deficiency <20 ng/mL Mild Deficiency 20-30 ng/mL Sufficiency 30-100 ng/mL Toxicity >100 ng/mL Performed By: #### U HCG, UAMIC #### [facility] [employer] [address] [place] [id number] [employer]: Campos Avilez MD ABO/RHon 07-07-2020 ABO/Rh Positive [place], [place] CBC WITH AUTO DIFFERENTIALon 07-07-2020 Basophils (Bld) [#/Vol] 0.04 10*3/uL [place] Basophils/100 WBC (Bld) 0 % 0 - 2 % [place] Differential Type NOT REPORTED [place] Eosinophils (Bld) [#/Vol] 0.10 10*3/uL [place] Eosinophils/100 WBC (Bld) 1 % 1 - 4 % [place] Erythrocyte distribution width (RBC) [Ratio] 14.0 % 11.8 - 14.4 % [place] Hematocrit (Bld) [Volume fraction] 34.3 % Low 36.3 - 47.1 % [place] Hemoglobin (Bld) [Mass/Vol] 11.1 g/dL Low 11.9 - 15.1 g/dL [place] Immature granulocytes (Bld) [#/Vol] 0 % 0 [place] Immature granulocytes (Bld) [#/Vol] 0.04 10*3/uL [place] Interpretation and review of laboratory results Abnormal [place] Lymphocytes (Bld) [#/Vol] 1.77 10*3/uL [place] Lymphocytes/100 WBC (Bld) 16 % Low 25 - 45 % [place] MCH (RBC) [Entitic mass] 26.6 pg 25 - 35 pg [place] MCHC (RBC) [Mass/Vol] 32.4 g/dL 28.4 - 34.8 g/dL [place] MCV (RBC) [Entitic vol] 82.3 fL 78 - 102 fL [place] Monocytes (Bld) [#/Vol] 0.73 10*3/uL [place] Monocytes/100 WBC (Bld) 7 % 2 - 8 % [place] Platelet mean volume (Bld) [Entitic vol] 11.8 fL 8.1 - 13.5 fL [place] Platelets (Bld) [#/Vol] NOT REPORTED [place] Platelets (Bld) [#/Vol] 288 10*3/uL [place] RBC (Bld) [#/Vol] 4.17 10*6/uL 3.95 - 5.1 1 m/uL [place] RBC morphology finding Nom (Bld) NOT REPORTED [place] Segmented neutrophils/100 WBC (Bld) 75 % High 34 - 64 % [place] Segs Absolute 8.16 High [place] WBC (Bld) [#/Vol] 0.0 10*3/uL 0.0 per 10 0 WBC [place] WBC (Bld) [#/Vol] 10.8 10*3/uL [place] WBC Morphology NOT REPORTED [place] COMPREHENSIVE METABOLIC PANE Mikie 07-07-2020 Albumin [Mass/Vol] 2.3 g/dL Low 3.5 - 5.2 g/dL [place] Albumin/Globulin [Mass ratio] 0.9 {ratio} Low [place] ALP [Catalytic activity/Vol] 41 U/L 35 - 104 U/L [place] Comment on above: SPECIMEN MODERATELY HEMOLYZED, RESULTS MAY BE ADVERSELY AFFECTED ALT [Catalytic activity/Vol] 11 U/L 5 - 33 U/L [place] Comment on above: SPECIMEN MODERATELY HEMOLYZED, RESULTS MAY BE ADVERSELY AFFECTED Anion gap [Moles/Vol] 9 mmol/L 9 - 17 mmol/L [place] AST [Catalytic activity/Vol] 28 U/L <32 [place] Comment on above: SPECIMEN MODERATELY HEMOLYZED, RESULTS MAY BE ADVERSELY AFFECTED Bilirubin Ql (U) <0.10 Low 0.3 - 1.2 mg/dL [place] Bun/Cre Ratio NOT REPORTED [place] Calcium [Mass/Vol] 5.5 mg/dL Critically low 8.6 - 1 0.4 mg/dL [place] Chloride [Moles/Vol] 118 mmol/L High 98 - 10 7 mmol/L [place] CO2 [Moles/Vol] 14 mmol/L Low 20 - 31 mmol/L [place] Creatinine [Mass/Vol] 0.6 mg/dL 0.5 - 0.9 mg/dL [place] GFR NOT REPORTED >60 mL/min [place] GFR Non- Pediatric GFR requires additional information. Refer to NKDEP website for calculator. >60 mL/min [place] GFR/1.73 sq M predicted among non-blacks MDRD (S/P/Bld) [Vol rate/Area] NOT REPORTED [place] GFR/1.73 sq M predicted among non-blacks MDRD (S/P/Bld) [Vol rate/Area] [place] Comment on above: Average GFR for <20 years old not available. Chronic Kidney Disease: <60 mL/min/1.73sq m Kidney failure: <15 mL/min/1.73sq m eGFR calculated using average adult body mass. Additional eGFR calculator available at: http://www.PasswordBox/multiple_crcl_2012.htm Glucose [Mass/Vol] 84 mg/dL 70 - 99 mg/dL [place] Interpretation and review of laboratory results Abnormal [place] Potassium [Moles/Vol] 5.1 mmol/L 3.7 - 5.3 mmol/L [place] Comment on above: SPECIMEN MODERATELY HEMOLYZED, RESULTS MAY BE ADVERSELY AFFECTED Protein [Mass/Vol] 5.0 g/dL Low 6.4 - 8.3 g/dL [place] Sodium [Moles/Vol] 141 mmol/L 135 - 144 mmol/L [place] Urea nitrogen [Mass/Vol] 10 mg/dL 6 - 20 mg/dL [place] HCG, QUANTITATIVE, on 07-07-2020 hCG Quant <1 <5 IU/L [place] Comment on above: Non-preg premeno <=5 [...] activity/Vol] 15 U/L 13 - 60 U/L [place] Vital Signs Date Time Vital Sign Value Performing Clinician Facility 10-26-2023 03:30-0400 Hourly Rounding Fuentes Florentino [facility] Comment on above: Result Comment: pt discharged off unit 10-26-2023 03:15-0400 Hourly Rounding Fuentes Florentino [facility] Comment on above: Result Comment: went over discharge inst ructions. educated pt on importance of contacting primary provider with future concerns, pisking up antibiotic prescription tomorrow, and calling is symtpoms return or get worse. 10-26-2023 00:00-0400 Blood Pressure Location Fuentes Florentino [facility] 10-26-2023 00:00-0400 Body temperature 98.6 [degF] Fuentes Florentino [facility] 10-26-2023 00:00-0400 Diastolic blood pressure 68 mm[Hg] Fuentes Florentino [facility] 10-26-2023 00:00-0400 Heart rate 101 /min Fuentes Florentino [facility] 10-26-2023 00:00-0400 Hourly Rounding Fuentes Florentino [facility] 10-26-2023 00:00-0400 Mean blood pressure 86 mm[Hg] Fuentes Florentino [facility] 10-26-2023 00:00-0400 Respiratory rate 16 /min Fuentes Florentino [facility] 10-26-2023 00:00-0400 Systolic blood pressure 122 mm[Hg] Fuentes Florentino [facility] 07-17-2023 11:42-0500 Body weight 127.82 kg Chung Benja epacube Work Phone: [facility] 07-17-2023 11:42-0500 Diastolic blood pressure 70 mm[Hg] Chung Benja DO Work Phone: [facility] 07-17-2023 11:42-0500 Systolic blood pressure 118 mm[Hg] Chung Benja DO Work Phone: [facility] 10-19-2021 01:12-0400 Diastolic blood pressure 62 mm[Hg] PHYSICIAN [facility] 10-19-2021 01:12-0400 Heart rate 89 /min PHYSICIAN [facility] 10-19-2021 01:12-0400 Respiratory rate 18 /min PHYSICIAN [facility] 10-19-2021 01:12-0400 SaO2% (BldA) [Mass fraction] 100 % PHYSICIAN [facility] 10-19-2021 01:12-0400 Systolic blood pressure 130 mm[Hg] PHYSICIAN [facility] 10-18-2021 23:10-0400 Body height 167.64 cm PHYSICIAN [facility] 10-18-2021 23:10-0400 Body mass index (BMI) [Percentile] Per age and sex 99.1 % PHYSICIAN [facility] 10-18-2021 23:10-0400 Body mass index (BMI) [Ratio] 48.2 kg/m2 PHYSICIAN [facility] 10-18-2021 23:10-0400 Body weight 135.5 kg PHYSICIAN [facility] 10-18-2021 23:08-0400 Body temperature 98.4 [degF] PHYSICIAN [facility] 07-07-2020 21:51-0500 BMI (Body Mass Index) 42.93 kg/m2 [facility], [place] 07-07-2020 21:51-0500 Body weight 120.66 [facility] [place] 07-07-2020 21:51-0500 BP Diastolic 85 mm[Hg] [facility] [place] 07-07-2020 21:51-0500 BP Systolic 136 mm[Hg] [facility] , [place] 07-07-2020 21:51-0500 Height 167.6 cm [facility] [place] 07-07-2020 21:51-0500 Pulse (Heart Rate) 93 /min [facility] [place] 07-07-2020 21:51-0500 Pulse Oximetry 97 % [facility] [place] 07-07-2020 21:51-0500 Respiratory Rate 18 /min [facility] [place] 07-07-2020 21:48-0500 Body Temperature 97.11 [degF] [facility] [place] Encounters Encounter Date Encounter Type Care Provider Facility Start: 12-31-2023 End: 12-31-2023 ambulatory HALIMA SUBHASH Not Available Start: 12-17-2023 End: 12-17-2023 ambulatory HALIMA SUBHASH Not Available Start: 12-03-2023 End: 12-03-2023 ambulatory CHUNG BENJA Not Available Start: 11-19-2023 End: 11-19-2023 ambulatory CHUNG BENJA Not Available Start: 11-04-2023 End: 11-04-2023 ambulatory HALIMA SUBHASH Not Available Start: 10-26-2023 End: 10-26-2023 ambulatory Fuentes Florentino Facility:[facility] Start: 10-25-2023 End: 10-26-2023 OB Triage Fuentes Florentino [facility] Start: 10-07-2023 End: 10-07-2023 ambulatory CHUNG BENJA Not Available Start: 09-09-2023 End: 09-09-2023 ambulatory CHUNG BENJA Not Available Start: 08-14-2023 End: 08-14-2023 ambulatory HALIMA SUBHASH Not Available Start: 07-17-2023 End: 07-17-2023 flow [...] Emergency department patient visit PHYSICIAN NO FAMILY Facility:[facility] Start: 10-18-2021 End: 10-19-2021 Emergency department patient visit PHYSICIAN NO FAMILY [facility] Start: 07-07-2020 End: 07-08-2020 Emergency department patient visit DAVID AQUINO [facility] Start: 07-07-2020 End: 07-08-2020 Emergency [...] AM EDT Routine [facility] [address] [place] [id number] Halima Cullen PA [address] [place], [place] [id number] [facility] OB Start: 07-17-2023 End: 07-17-2024 US for US OB VIABLILITY Imaging Routine with uncertain viability, single or unspecified fetus Expected: 07/17/2023 (Approximate), Expires: 07/17/2024 [facility] Work Phone: Comment on above: Expected: 07/17/2023 (Approximate), Expires: 07/17/2024 Start: 07-17-2023 End: 07-17-2023 Patient encounter procedure [facility] Comment on above: First trimester preg yesika Start: 07-03-2023 End: 07-03-2024 ABO/Rh ABO/Rh Lab Routine Missed menses Expected: 07/03/2023 (Approximate), Expires: 07/03/2024 [facility] Comment on above: Expected: 07/03/2023 (Approximate), [...] Expected: 07/03/2023 (Approximate), Expires: 07/03/2024 [facility] Comment on above: Expected: 07/03/2023 (Approximate), Expires: 07/03/2024 Start: 02-01-2020 Influenza vaccination Flu vaccine (# 1) [place] Start: 2018 Meningococcal (ACWY) vaccine (1 - 2-dose series) Meningococcal (ACWY) vaccine (1 - 2-dose series) [place] Start: 2018 Screening for Chlamy nancy trachomatis Chlamydia screen [place] Start: 2017 HIV screening HIV screen [place] Start: 2013 HPV vaccine (1 - 2-d ose series) HPV vaccine (1 - 2-dose series) [place] Start: 2009 DTaP/Tdap/Td vaccine (1 - Tdap) DTaP/Tdap/Td vaccine (1 - Tdap) [place] Start: 2003 Hepatitis A vaccine (1 of 2 - 2-dose series) Hepatitis A vaccine (1 of 2 - 2-dose series) [place] Start: 2003 Measles,Mumps,Rubell a (MMR) vaccine (1 of 2 - Standard series) Measles,Mumps,Rubella (MMR) vaccine (1 of 2 - Standard series) [place] Start: 2003 Varicella vaccine (1 of 2 - 2-dose childhood series) Varicella vaccine (1 of 2 - 2-dose childhood series) [place] Start: 2002 Hepatitis B vaccine (1 of 3 - 3-dose primary series) Hepatitis B vaccine (1 of 3 - 3-dose primary series) [place] Start: 2002 Hepatitis C screening [facility] [place] Bacteria identified in Urine by Culture Urine culture Microbiology Routine Missed menses Ordered: 07/03/2023 [facility] Comment on above: Ordered: 07/03/2023 End: 07-07-2020 C.trachomatis N.gonorrhoeae DNA C.trachomatis N.gonorrhoeae DNA Microbiology STAT One Time for 1 Occurrences starting 07/07/2020 until 07/07/2020 [place] Comment on above: One Time for 1 Occur rences starting 07/07/2020 until 07/07/2020 C.trachomatis N.gonorrhoeae DNA C.trachomatis N.gonorrhoeae DNA Microbiology Stat [employer] Label print 07/07/2020 11:20 PM [place] End: 07-08-2020 Calcium, Ionized Calcium, Ionized Lab STAT One Time for 1 Occurrences starting 07/08/2020 until 07/08/2020 [place] Comment on above: One Time for 1 Occur rences starting 07/08/2020 until 07/08/2020 CBC W Auto Different ial panel - Blood CBC and differential Lab Routine Missed menses Ordered: 07/03/2023 [facility] Comment on above: Ordered: 07/03/2023 End: 07-07-2020 Culture, Urine Culture, Urine Microbiology STAT One Time for 1 Occurrences starting 07/07/2020 until 07/07/2020 [place] Comment on above: One Time for 1 Occur rences starting 07/07/2020 until 07/07/2020 Culture, Urine Culture, Urine Microbiology Stat [employer] Label print 07/07/2020 10:56 PM [facility] [place] Hemoglobin A1c measurement Hemoglobin A1c Lab Routine Missed menses Ordered: 07/03/2023 [facility] Comment on above: Ordered: 07/03/2023 Hepatitis B virus surface Ag [Presence] in Serum or Plasma by Immunoassay Hepatitis B surface antigen Lab Routine Missed menses Ordered: 07/03/2023 [facility] Comment on above: Ordered: 07/03/2023 Hepatitis C virus Ab [Presence] in Serum or Plasma by Immunoassay Hepatitis C antibody Lab Routine Missed menses Ordered: 07/03/2023 [facility] Comment on above: Ordered: 07/03/2023 HIV-1/HIV-2 antigen/antibody combination immunoassay HIV-1 and HIV-2 antibodies Lab Routine Missed menses Ordered: 07/03/2023 [facility] Comment on above: Ordered: 07/03/2023 Patient Education Common Breast Problems Pelvic Pain ED [facility] Work Phone: Patient referral [facility] Work Phone: Reagin Ab [Presence] in Serum by RPR RPR Lab Routine Missed menses Ordered: 07/03/2023 [facility] Comment on above: Ordered: 07/03/2023 Rubella antibody, IgG Rubella an tibody, IgG Lab Routine Missed menses Ordered: 07/03/2023 [facility] Comment on above: Ordered: 07/03/2023 End: 07-07-2020 US DUP ABD PEL RETRO SCROT LIMITED US DUP ABD PEL RETRO SCROT LIMITED Imaging STAT Once for 1 Occurrences starting 07/07/2020 until 07/07/2020 [facility] Comment on above: Once for 1 Occurrenc es starting 07/07/2020 until 07/07/2020 US DUP ABD PEL RETRO SCROT LIMITED US DUP ABD PEL RETRO SCROT LIMITED Imaging STAT 07/08/2020 12:13 AM [facility] Payers Date Payer Category Payer Unknown BCBS BCBS [id number] 2023-Present [phone] [address] [place] [address] [id number] 2023 Unknown [id number] 2021 [facility] [id number] 2002 Unknown [id number] 2002 Unknown [id number] [id number] 2002 Unknown [id number] [id number] 2002 Unknown [id number] [id number] 2002 Unknown [id number] [id number] 2002 Unknown [id number] [id number] 2002 Unknown [id number] [id number] 2002 Unknown [id number] [id number] 2002 Unknown [id number] 2.16.840.1.003514.3.579.2.1259 2002 Unknown [id number] 2.16.840.1.947144.3.579.2.125 2002 Unknown [id number] 2.16.840.1.267305.3.579.2.125 2002 Unknown [id number] [id number] 2002 Unknown [id number] 2.16.840.1.303887.3.579.2.1258 2002 Unknown [id number] 2.16.840.1.083281.3.579.2.125 2002 Unknown [id number] [id number] 1957 Medicaid [id number] 1957 Unknown [id number] Unknown [id number] Social History Date Type Detail Facility Start: 07-07-2020 End: 07-16-2023 Tobacco smoking status TXIS Never smoker [facility] Start: 07-07-2020 Tobacco use and exposure [place] Start: 2002 Sex Assigned At Not on file [place] Exposure to SARS-CoV-2 (event) Not sure [place] Start: 10-19-2021 Tobacco smoking status TXIS Smoker (finding) [facility] Start: 2000 Sex Assigned At Female F [facility] Tobacco smoking status [facility] Tobacco smoking consumption unknown [facility] Start: 05-22-2023 [facility] Start: 07-16-2023 Gender identity Not on file [facility] Start: 07-16-2023 End: 07-17-2023 Alcohol intake Lifetime non-drinker (finding) [facility] Start: 07-16-2023 History of Social function [facility] Tobacco smoking status No Smoking Status Entered [facility] Functional Status Date Assessment Result Facility 10-26-2023 Functional Status N/A [facility] Clinical Notes 07-03-2023 to 10-26-2023 Chung Yousif DO - 07/17/2023 11:10 AM Costa Kilgore LPN - 07/03/2023 1:00 PM EST Note Date & Type Note Facility 10-26-2023 Note The following Patien t Education Materials have been given to the patient: EducationMaterial [facility] 10-26-2023 Hospital Discharg e instructions Patient [...] provider. Document Revised: 01/02/2022 Document Reviewed: 01/02/2022 Hitsbook Patient Education 2022 [employer]. 10/26/2023 03:10:04 Vaginal Bleeding During , Second [...] help with your regular activities. Medicines Take vcoi-amy-edpdvlc and prescription medicines only as told by [...] provider. Document Revised: 02/08/2021 Document Reviewed: 02/08/2021 Hitsbook Patient Education 2022 [employer]. 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 [...] your back during . General instructions Take txht-eub-bwagksa and prescription medicines only as told by [...] care provider for managing back pain. Take cmdg-lzp-ghppndc and prescription medicines only as told by [...] provider. Document Revised: 08/01/2021 Document Reviewed: 08/01/2021 Hitsbook Patient Education 2022 [employer]. Follow Up Care 10/25/2023 23:39:34 With:Chung YOUSIF Address: [address] , [place] [address] Business (1) When:11/04/2023 [facility] 10-25-2023 Evaluation + Plan note Diagnostic Tests PendingUrine Culture 10/25/23 [facility] 07-17-2023 History of Presen t illness Narrative Reason for Appointment: Patient ID: Teodoro Upton is a 23 y.o. female who presents for Routine Visit Patient presents today for Return OB appointment. Current Medications: has a current medication list which includes the following prescription(s): lpxchdkn-uyg-ig-fa and promethazine. Medical History: Active Ambulatory Problems Diagnosis Date Noted No Active Ambulatory Problems Resolved Ambulatory Problems Diagnosis Date Noted No Resolved Ambulatory Problems Past Medical History: Diagnosis Date ADD (attention deficit disorder) Asthma ([facility]) Family History Problem Relation Name Age [...] Chung Yousif DO documented in this encounter [facility] 07-03-2023 History of Presen t illness [...] Problems Past Medical History: Diagnosis Date Asthma ([facility]) No family history on file. Social [...] raw or undercooked meat, stay away from [facility], do not change litter boxes, eat [...] Evaluation note No assessment inform ation available [facility] Work Phone: Evaluation note Diagnosis Missed menses Nausea and vomiting, unspecified vomiting type documented in this encounter [facility] Diagnosis First trimester state, incidental Vaginal bleeding in Threatened miscarriage Threatened , unspecified as to episode of care with uncertain viability, single or unspecified fetus documented in this encounter [facility] Narrative No data available for this section [facility] Additional Instructions Please follow up as we discussed so you can have your concerns further evaluated.[facility] Work Phone: Progress note No data available for this section [facility] Discharge Instructions * Instructions* Brenda Stoner, - 07/08/2020 [facility] ED Clinic List Healthcare Providers Services Day of Week/ Hours [place] for [facility] Services [address] [facility] Pediatric Primary Care Adult Primary Care CUSTOMER SERVICER//Specialty Clinics Friday 8:00a 4:30p [address] Adult Medicine, Pediatrics, CUSTOMER SERVICER Friday 8:30a 4:30p [facility] Surgery [address] [facility] Friday 8:30a 11:00a [facility] [address] [facility] Adult Internal Medicine ([facility]) CUSTOMER SERVICER Clinic Pediatric Clinic Friday, Friday, , Friday 8:00a 4:30p Friday 1:00p 4:30p Friday, Friday, 8:00a 5:00p; Friday 8:00a 12:30p Friday 1p 4p Friday, Friday, , Friday 8:30a 4:15p Friday 12:30p 4:15p Health Department [address] Pediatric Primary Care Adult Primary Care OB/ Friday, Friday 8a 12p 8a 4:45p [facility] [address] [place] [id number] [place] [address] # Pre & Post Adoption Counseling Support / nutrition Care Reward Incentive Program [place] Location Fri, , Fri, Fri 10:00a 4:30p Thur 10:00a 7:30p [place] Location Friday - Friday 10a 4:30p [facility] CUSTOMER SERVICER [address] [facility] Adult Internal Medicine [address] [facility] Pediatrics [address] [facility], [address] Neuro / Headache [address] [facility] Friday 8:30a 5p [facility] [address] [facility] Fri, , , Fri 9:00a 4:30p Wed 1:00p 4:30p [facility] [address] [facility] [address] [facility] Friday 8:30a 5:00p [facility] Specialty Clinics [address] [facility] [address] Burn/Plastic, ENT, GI, Orthopedics, Surgical / Trauma, Urology, Vascular Friday 8:00 4:30p Call for an appointment [facility] [address] [facility] Adult Medicine, Eye Clinic, Dental Patient must be certified homeless Under age 18 not accepted Friday 8:00 4:30p [facility] [address] [facility] OB Friday, Friday, Friday, Friday 9a 5p 9a 6p Friday (OB only) [facility] [address] [facility] OB/ Friday 11a 7p , Fri, 9a 5p Friday 8a 4p 1st Friday 9a 1p Podiatry Clinic [address] [facility] [address] Friday 8:00 4:30 p Center [facility] [address] Free nurse visits [place] programs Counseling Class Call or walk in [facility] [address] [place] Various Clinics 8a 5:30p [facility] [address] [facility], [address] [facility] Friday 8a 4:30p [facility] [address] [place], [place] [id number] [address] [place] [address] Friday 8a 4:30p Friday 8a 4:30p 8a 8p Outpatient Clinics [facility] [address] [facility] Friday 9a 5p Diabetic Education Services Call for an appointment [facility] Heart Failure Clinic [address] [facility] Friday 8:30a 4p Dental Services [facility] [address] [facility] Must have source of income and must bring (2) recent check stubs to appointment By appointment only [facility] [address] Patient must be homeless, call for eligibility guidelines. Under age 18 NOT accepted Days and hours vary (Doors open at 8:30a day of week varies) Call for an appointment Miscellaneous Information [facility] Call for Help [phone] Call for an appointment H.E.L.P (Hospital Eligibility Link Program) toll free For financial assistance * Attachments The following attachments cannot be sent through Care Everywhere. * Bacterial Vaginosis (Cuban) * UTI (Urinary Tract Infection): Female (Cuban) * Vitamin D: General Info (Cuban) documented in this encounter Assessments Diagnosis BV [...] and content) DATE CREATED AUTHOR 07/16/2020 [facility] DATE CREATED AUTHOR AUTHOR'S ORGANIZ ATION 09/07/2022 [facility] DATE CREATED AUTHOR AUTHOR'S ORGANIZ ATION 03/13/2023 [facility] DATE CREATED AUTHOR AUTHOR'S ORGANIZ ATION 10/27/2023 Lopez Braxton [facility] DATE CREATED AUTHOR AUTHOR'S ORGANIZ ATION 10/31/2023 Olympia Braxton [facility] DATE CREATED AUTHOR AUTHOR'S ORGANIZ ATION 01/03/2024 [facility] dical Specialists EPIC Care Teams (unrecognized [...] BE BASED ON THE PRIMARY CLINICAL RECORDS. [employer] provides no warranty or guarantee of the accuracy or completeness of information in this document.
--- NOTE | 2024-01-06 17:01 | US_ITS ---
[address] [address] Patient Name: TEODORO HERNANDES MRN: [id number] date: 2000 Sex: F Assigned Patient Location: [facility] Current Patient Location: Accession/Order Number: [id number] Exam Date: 01/06/2024 17:09 Report Date: 01/07/2024 06:33 At the request of: CHUNG MAGDALENO Procedure: US OB BPP w non-stress EXAMINATION: US OB BPP w non-stress HISTORY:POLYHYDRAMNIOS AFFECTING O40.3XX0 COMPARISON: Ultrasound OB biophysical 12/30/2023 TECHNIQUE: Ultrasound biophysical profile was performed in the radiology department. BREATHING MOVEMENTS: 2 GROSS BODY MOVEMENTS: 2 TONE: 2 QUALITATIVE AMNIOTIC FLUID VOLUME: 2 PRESENTATION: CEPHALIC HEART RATE: 151.69 bpm AMNIOTIC FLUID VOLUME: 20.54 cm GESTATIONAL AGE: 34 weeks 5 days US/US OB BPP w non-stress IMPRESSION: 1. Total biophysical profile score: 8 2. Dilated right renal pelvis, possibly up to 15 mm. Follow-up recommended. Electronically authenticated by: ZURI VITALE Date: 01/07/2024 06:33
[2024-01-06 18:06] VITALS: BP 137/64; PULSE 105
== END 2024-01-06 20:17 | disposition home or self-care (01) ==
LOC: US 07:02 → FBC 16:58
PROVIDERS: Visit Provider Obstetrics & Gynecology
DX: O40.3XX0 Polyhydramnios, third trimester, not applicable or unspecified (principal); O36.60X0 Maternal care for excessive fetal growth, unspecified trimester, not applicable or unspecified; Z3A.34 34 weeks gestation of pregnancy
CPT/HCPCS: 76818

== ENCOUNTER 2024-01-08 11:06 | Outpatient (OUT) | payer MEDICAID, SELFPAY ==
--- NOTE | 2024-01-08 11:08 | US_ITS ---
[address] [address] Patient Name: TEODORO HERNANDES MRN: [id number] date: 2000 Sex: F Assigned Patient Location: [facility] Current Patient Location: [facility] Accession/Order Number: [id number] Exam Date: 01/08/2024 11:09 Report Date: 01/08/2024 14:05 At the request of: ROBERT CULLEN Procedure: US OB growth EXAMINATION: US OB growth HISTORY: LARGE GESTATIONAL AGE COMPARISON: 12/24/2023 FINDINGS: Heart Rate: 169 bpm Amniotic Fluid Volume: 22.0 cm. Largest fluid pocket: 5.9 cm Number: 1 Position: Cephalic presentation, longitudinal lie BIOMETRY: BPD: 8.81 cm; 35 weeks 4 days; 69.80 % HC: 33.60 cm; 38 weeks 3 days; 92 % AC: 34.38 cm; 38 weeks 2 days; >97 % FL: 7.39 cm; 37 weeks 6 days; 95.90 % EFW: 3113.86 g; >97 %, 7 lbs. 5 oz. FL/AC: 21.50 FL/BPD: 83.88 HC/AC: 0.98 GESTATIONAL AGE: Age by EDC: 35 weeks 0 days ROGER by EDC: 2024-02-12 Age by US: 37 weeks 4 days ROGER by US: 2024-01-25 Other: Dilation of a single renal pelvis is a 1.4 cm US/US OB growth IMPRESSION: Large for gestational age. Estimated weight greater than the 97th percentile Dilated renal pelvis measuring 1.4 cm Electronically authenticated by: LISETTE JIMENEZ Date: 01/08/2024 14:05
--- OUTSIDE RECORDS SUMMARY | 2024-01-08 11:24 | XMS_ITS | CCD ---
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 Buffet Name Role Phone Unavailable Primary Care Provider [...] Propensity to adverse reactions to drug 07-07-2020 [facility] [place], [place] Medications Current Medications Medication [...] Refill(s) 0 Start Date: 10/26/23 Status: Ordered Eqryzxuz-Act-Bf-FA ( 1 + IRON PO) (4 sources) Abolwnay-Fop-Yz-FA ( 1 + IRON PO) Take by [...] Range Facility Nursing Assessmenton 024 Nursing Assessment [id number] 2#1.00TIFF Normal [facility] C Urineon 10-28-2023 Bacteria identified Cx [...] Locations R1: This test was performed at: [facility], [address] [place] [address], [address] [place] [address], [facility] Comment on above: Performed By: #### 2 [id number] #### [facility] [address] [place] [address] Consent for Treatmenton 10-01 Consent for Treatment [id number] #1.00TIFF [facility] Discharge Instructionson Discharge Instructions [id number] 7#1.00TIFF [facility] Inpatient Clinical Summaryon 10-26-2023 Inpatient Clinical Summary [address] [address] Clinical Summary Person Information Name: [facility] Age: 23 Years : 2000 Sex: Female PCP: NONE, XXXX Marital Status: Single Phone: [phone] Race: or Ethnicity: Non- or Language: Belarusian Visit Id: Visit Reason: 24 WEEKS BLEEDING Speciality: Acuity: Obs Enc Type: OB Triage Med Service: Obstetrics Arrival: 10/25/2023 23:36:04 Discharge: 10/26/2023 03:30:56 Dispo Type: Home (Routine DC) Address: [facility] [address] [facility] [id number] Provider Notes: Diagnosis: Problems Active (10/26/2023) Smoker [...] Referring Physician: Follow up: With: Address: When: [facility], [address] [place] [address] , [place] [address] [facility] (1) In 9 days 11/04/2023 Patient Education Information: and Urinary Tract Infection; Vaginal Bleeding During , Second Trimester; Back Pain in Normal [facility] Inpatient Patient Summaryon 10-26-2023 Inpatient Patient Summary [address] [address] Patient Discharge Instructions PERSON INFORMATION [...] test results: Follow up: With: Address: When: [facility], [address] [place] [address] , [place] [address] Business (1) In 9 days [...] Always wi (more content not included)... Normal [facility] Insurance Correspondenceon 0 10-26-2023 Insurance Correspondence [id number] 8#1.00TIFF Normal [facility] UA with Cult Rflxon 10-26-19 24 Bacteria Auto Ql (U) Trace Normal Trace [facility] Comment on above: Performed By: #### 4 [id number] #### [facility] [address] [place] [address] Bilirubin Ql (U) Negative Normal Negative [facility] Comment on above: Performed By: #### 4 [id number] #### [facility] [address] [place] [address] Clarity (U) Turbid Abnormal Clear [facility] Comment on above: Performed By: #### 4 [id number] #### [facility] [address] [place] [address] Color (U) Yellow Normal Yellow [facility] Comment on above: Result Comment: Micr oscopic readings are only performed on those samples that meet specific criteria set forth by [facility]. Performed By: #### 4 [id number] #### [facility] [address] [place] [address] Epithelial cells.squamous Auto (Urine sed) [#/Area] 5-8 Abnormal 0-2 [facility] Comment on above: Performed By: #### 4 [id number] #### [facility] [address] [place] [address] Glucose Ql (U) Negative Normal Negative [facility] Comment on above: Performed By: #### 4 [id number] #### [facility] [address] [place] [address] Hemoglobin Auto test strip (U) [Mass/Vol] Negative Normal Negative [facility] Comment on above: Performed By: #### 4 [id number] #### [facility] [address] [place] [address] Hyaline casts LM Ql (Urine sed) 0-3 Normal 0-3 [facility] Comment on above: Performed By: #### 4 [id number] #### [facility] [address] [place] [address] Ketones Auto test strip Ql (U) Negative Normal Negative [facility] Comment on above: Performed By: #### 4 [id number] #### [facility] [address] [place] [address] Leukocyte esterase Auto test strip Ql (U) 500 Gerald/uL Abnormal Negative [facility] Comment on above: Performed By: #### 4 [id number] #### [facility] [address] [place] [address] Mucus Auto Ql (U) Trace Normal Negative [facility] Comment on above: Performed By: #### 4 [id number] #### [facility] [address] [place] [address] Nitrite Auto test strip Ql (U) Negative Normal Negative [facility] Comment on above: Performed By: #### 4 [id number] #### [facility] [address] [place] [address] pH (U) 6.0 [pH] Invalid Interpretation Code 5.0-9.0 [facility] Comment on above: Performed By: #### 4 [id number] #### [facility] [address] [place] [address] Protein Ql (U) Trace Abnormal Negative [facility] Comment on above: Performed By: #### 4 [id number] #### [facility] [address] [place] [address] RBC Ql (U) 4-20 Abnormal 0-3 [facility] Comment on above: Performed By: #### 4 [id number] #### [facility] [address] [place] [address] Specific gravity (U) [Rel density] 1.030 Invalid Interpretation Code 1.005-1.030 [facility] Comment on above: Performed By: #### 4 [id number] #### [facility] [address] [place] [address] Urobilinogen (U) [Mass/Vol] Negative Normal Negative [facility] Comment on above: Performed By: #### 4 [id number] #### [facility] [address] [place] [address] WBC Auto (Urine sed) [#/Area] 16-25 Abnormal 0-5 [facility] Comment on above: Performed By: #### 4 [id number] #### [facility] [address] [place] [address] Type of Urine collection method Clean Catch Normal [facility] Comment on above: Performed By: #### 4 [id number] #### [facility] [address] [place] [address] URINALYSISOrdered By: SYSTEM SYSTEM on 10-25-2023 Bacteria [...] that meet specific criteria set forth by [facility]. Epithelial cells.squamous Auto (Urine sed) [...] 16-25 graded/HPF Invalid Interpretation Code 0-5graded/HP F [facility] UA Auto SS URINALYSISOrdered By: Elijah Hernandez on 10-25-2023 UA Spec Desc Clean Catch (10/25/23 11:53 PM) Normal [facility] UA Auto SS Urinalysis macro (dipstick) panel [...] 0.2 0.2 - 12 mg/dL [facility] HCG ( test) Ql (U)o n 07-03-2023 Interpretation and review of laboratory results Abnormal [facility] Preg Test, Ur Negative [facility] [...] 1.0 0.2 - 12 mg/dL [facility] XR FOOT RT MIN [...] PADDY SAPP Date: 2022-08-30 14:42 Normal [facility] CBC AUTO DIFFon 06-28-2022 BASO # 0.0 103/ul Normal 0.0-0.1 [facility] Comment on above: Performed By: #### C BC #### [facility] [address] [place] [address] Dr. Jerald Poon Basophils/100 WBC (Bld) 0.3 % Normal 0.2-2.0 [facility] Comment on above: Performed By: #### C BC #### [facility] [address] [address] [address] Jerald Poon EO # 0.1 103/ul Normal 0.0-0.7 [facility] Comment on above: Performed By: #### C BC #### [facility] [address] [place] [address] Dr. Jerald Poon Eosinophils/100 WBC (Bld) 1.1 % Normal 0.9-7.0 [facility] Comment on above: Performed By: #### C BC #### [facility] [address] [place] [address] Dr. Jerald Poon Erythrocyte distribution width (RBC) [Ratio] 14.5 % Normal 11.0-15.0 [facility] Comment on above: Performed By: #### C BC #### [facility] [address] [place] [address] Dr. Jerald Poon Hematocrit (Bld) [Volume fraction] 36.7 % Normal 36.0-48.0 [facility] Comment on above: Performed By: #### C BC #### [facility] [address] [place] [address] Dr. Jerald Poon Hemoglobin (Bld) [Mass/Vol] 13.0 g/dL Normal 12.0-16.0 [facility] Comment on above: Performed By: #### C BC #### [facility] [address] [place] [address] Dr. Jerald Poon IG # 0.04 10e3/ul Critically high 0.00-0.03 [facility] Comment on above: Performed By: #### C BC #### [facility] [address] [place] [address] Dr. Jerald Poon IG % 0.3 % Normal 0.0-0.5 [facility] Comment on above: Performed By: #### C BC #### [facility] [address] [place] [address] Dr. Jerald Poon LYMPH # 3.0 103/ul Normal 1.2-3.8 [facility] Comment on above: Performed By: #### C BC #### [facility] [address] [place] [address] Dr. Jerald Poon Lymphocytes/100 WBC (Bld) 26.2 % Normal 20.5-60.0 [facility] Comment on above: Performed By: #### C BC #### [facility] [address] [place] [address] Dr. Jerald Poon MANUAL DIFF REQ NO Normal [facility] Comment on above: Performed By: #### C BC #### [facility] [address] [place] [address] Dr. Jerald Poon MCH (RBC) [Entitic mass] 27.1 pg Normal 26.7-34.0 [facility] Comment on above: Performed By: #### C BC #### [facility] [address] [address] [address] Jerald Poon MCHC (RBC) [Mass/Vol] 35.4 g/dL Critically high 29.9-35.2 [facility] Comment on above: Performed By: #### C BC #### [facility] [address] [address] [address] Jerald Poon MCV (RBC) [Entitic vol] 76.6 fL Critically low 81.0-99.0 [facility] Comment on above: Performed By: #### C BC #### [facility] [address] [place] [address] Dr. Jerald Poon MONO # 0.8 103/ul Normal 0.3-0.8 [facility] Comment on above: Performed By: #### C BC #### [facility] [address] [place] [address] Dr. Jerald Poon Monocytes/100 WBC (Bld) 7.0 % Normal 1.7-12.0 [facility] Comment on above: Performed By: #### C BC #### [facility] [address] [place] [address] Dr. Jerald Poon NEUT # 7.5 103/ul Critically high 1.4-6.5 [facility] Comment on above: Performed By: #### C BC #### [facility] [address] [place] [address] Dr. Jerald Poon Neutrophils/100 WBC (Bld) 65.1 % Normal 43.0-75.0 [facility] Comment on above: Performed By: #### C BC #### [facility] [address] [address] [address] Jerald Poon Platelet mean volume (Bld) [Entitic vol] 10.0 fL Normal 9.5-13.5 [facility] Comment on above: Performed By: #### C BC #### [facility] [address] [place] [address] Dr. Jerald Poon PLT 387 103/ul Normal 150-450 [facility] Comment on above: Performed By: #### C BC #### [facility] [address] [place] [address] Dr. Jerald Poon RBC 4.79 106/ul Normal 4.20-5.40 [facility] Comment on above: Performed By: #### C BC #### [facility] [address] [place] [address] Dr. Jerald Poon WBC 11.6 103/ul Critically high 4.0-11.0 [facility] Comment on above: Performed By: #### C BC #### [facility] [address] [place] [address] Dr. Jerald Poon CULTURE URINEon 06-28-2022 CULTURE URINE Culture Observations: LIGHT GROWTH OF MIXED GENITAL ZACARIAS. NO POTENTIAL PATHOGENS SEEN. Normal [facility] Comment on above: Performed By: #### U RCX #### [facility] [address] [place] [address] Dr. Jerald Poon ER URINE PROFILEon 3 Bilirubin Ql (U) Negative Normal NEGATIVE [facility] Comment on above: Performed By: #### U MICRO, ERUR #### [facility] [address] [place] [address] Dr. Jerald Poon Clarity (U) CLEAR Normal CLEAR [facility] Comment on above: Performed By: #### U MICRO, ERUR #### [facility] [address] [place] [address] Dr. Jerald Poon Color (U) YELLOW Normal YELLOW [facility] Comment on above: Performed By: #### U MICRO, ERUR #### [facility] [address] [place] [address] Dr. Jerald CEBALLOS A micrscopic examination will be performed if indicated. Normal [facility] Comment on above: Performed By: #### U MICRO, ERUR #### [facility] [address] [place] [address] Dr. Jerald Poon Glucose Ql (U) Negative Normal NEGATIVE [facility] Comment on above: Performed By: #### U MICRO, ERUR #### [facility] [address] [address] [address] Jerald Poon Hemoglobin Ql (U) Negative Normal NEGATIVE [facility] Comment on above: Performed By: #### U MICRO, ERUR #### [facility] [address] [address] [address] Jerald Poon Ketones Ql (U) 40 mg/dl Abnormal NEGATIVE [facility] Comment on above: Performed By: #### U MICRO, ERUR #### [facility] [address] [address] [address] Jerald Poon LEUKOCYTES TRACE Abnormal NEGATIVE [facility] Comment on above: Performed By: #### U MICRO, ERUR #### [facility] [address] [place] [address] Dr. Jerald Poon Nitrite Ql (U) Negative Normal NEGATIVE [facility] Comment on above: Performed By: #### U MICRO, ERUR #### [facility] [address] [place] [address] Dr. Jerald Poon pH (U) 6.0 [pH] Normal 5-9 [facility] Comment on above: Performed By: #### U MICRO, ERUR #### [facility] [address] [place] [address] Dr. Jerald Poon SPEC GRAVITY >=1.030 Abnormal 1.005-<=1.02 5 [facility] Comment on above: Performed By: #### U MICRO, ERUR #### [facility] [address] [place] [address] Dr. Jerald Poon UA PROTEIN Negative Normal NEGATIVE/ TRACE [facility] Comment on above: Performed By: #### U MICRO, ERUR #### [facility] [address] [place] [address] Dr. Jerald Poon UR MICRO IND INDICATED Normal [facility] Comment on above: Performed By: #### U MICRO, ERUR #### [facility] [address] [place] [address] Dr. Jerald Poon Urobilinogen Qn (U) 0.2 {Lyly'U}/dL Normal 0.2 - 1. 0 [facility] Comment on above: Performed By: #### U MICRO, ERUR #### [facility] [address] [place] [address] Dr. Jerald Poon PREG QUANT HCGon 06-28-2022 HCG QUANT <1 Normal [facility] Comment on above: Performed By: #### P REGQNT #### [facility] [address] [place] [address] Dr. Jerald Poon HCG RANGE SEE BELOW Normal [facility] Comment on above: Result Comment: 5-50 0.2-1 WEEK 50-500 1-2 WEEKS 100-5,000 2-3 WEEKS 500-10,000 3-4 WEEKS 1,000-50,000 4-5 WEEKS 10,000-100,000 5-6 WEEKS 15,000-200,000 6-8 WEEKS 10,000-100,000 2-3 MONTHS Performed By: #### P REGQNT #### [facility] [address] [place] [address] Dr. Jerald Poon PROF CHEM 8 (BAS METB)on Anion gap [Moles/Vol] 14.0 mmol/L Normal [facility] Comment on above: Performed By: #### C BC #### [facility] [address] [place] [address] Dr. Jerald Poon Calcium [Mass/Vol] 9.6 mg/dL Normal 8.5-10.1 [facility] Comment on above: Performed By: #### C BC #### [facility] [address] [place] [address] Dr. Jerald Poon Chloride [Moles/Vol] 101 mmol/L Normal 98-107 [facility] Comment on above: Performed By: #### C BC #### [facility] [address] [place] [address] Dr. Jerald Poon CO2 [Moles/Vol] 25.4 mmol/L Normal 21.0-32.0 [facility] Comment on above: Performed By: #### C BC #### [facility] [address] [place] [address] Dr. Jerald Poon Creatinine [Mass/Vol] 0.92 mg/dL Normal 0.55-1.02 [facility] Comment on above: Performed By: #### C BC #### [facility] [address] [place] [address] Dr. Jerald Poon EGFR-AF [place] CITIZEN >60 Normal >=60 [facility] Comment on above: Performed By: #### C BC #### [facility] [address] [address] [address] Jerald Poon EGFR-NON AF [place] CITIZ[place] >60 Normal >=60 [facility] Comment on above: Performed By: #### C BC #### [facility] [address] [place] [address] Dr. Jerald Poon Glucose [Mass/Vol] 101 mg/dL Normal 74-106 [facility] Comment on above: Performed By: #### C BC #### [facility] [address] [place] [address] Dr. Jerald Poon Potassium [Moles/Vol] 3.4 mmol/L Critically low 3.5-5.1 [facility] Comment on above: Performed By: #### C BC #### [facility] [address] [place] [address] Dr. Jerald Poon Sodium [Moles/Vol] 137 mmol/L Normal 136-145 [facility] Comment on above: Performed By: #### C BC #### [facility] [address] [place] [address] Dr. Jerald Poon Urea nitrogen [Mass/Vol] 11.0 mg/dL Normal 7.0-18.0 [facility] Comment on above: Performed By: #### C BC #### [facility] [address] [place] [address] Dr. Jerald Poon Urea nitrogen/Creatinine [Mass ratio] 12.0 mg/mg Normal [facility] Comment on above: Performed By: #### C BC #### [facility] [address] [place] [address] Dr. Jerald Poon TSHon 01-27-2023 TSH 1.319 uIU/mL Normal 0.358-3.740 [facility] Comment on above: Performed By: #### C BC #### [facility] [address] [place] [address] Dr. Jerald Poon URINE MICROSCOPIC ONLYon BACTERIA SMALL Abnormal NONE SEEN [facility] Comment on above: Performed By: #### U MICRO, ERUR #### [facility] [address] [place] [address] Dr. Jerald Poon Bacteria identified Cx Nom (U) INDICATED Normal [facility] Comment on above: Performed By: #### U MICRO, ERUR #### [facility] [address] [place] [address] Dr. Jerald Poon CAST NONE SEEN Normal NONE SEEN [facility] Comment on above: Performed By: #### U MICRO, ERUR #### [facility] [address] [place] [address] Dr. Jerald Poon Crystals LM Nom (Urine sed) NONE SEEN Normal NONE SEEN [facility] Comment on above: Performed By: #### U MICRO, ERUR #### [facility] [address] [place] [address] Dr. Jerald Poon Epithelial cells LM Ql (Urine sed) FEW Abnormal NONE SEEN /RARE [facility] Comment on above: Performed By: #### U MICRO, ERUR #### [facility] [address] [place] [address] Dr. Jerald Poon MUCOUS NONE SEEN Normal NONE SEEN [facility] Comment on above: Performed By: #### U MICRO, ERUR #### [facility] [address] [place] [address] Dr. Jerald Poon RBC NONE SEEN Abnormal 0-2 [facility] Comment on above: Performed By: #### U MICRO, ERUR #### [facility] [address] [place] [address] Dr. Jerald Poon WBC 2-5 Abnormal NONE SEEN [facility] Comment on above: Performed By: #### U MICRO, ERUR #### [facility] [address] [place] [address] Dr. Jerald Poon CBC AUTO DIFFon 04-01-2022 BASO # 0.0 103/ul Normal 0.0-0.1 [facility] Comment on above: Performed By: #### C BC #### [facility] [address] [place] [address] Dr. Jerald Poon Basophils/100 WBC (Bld) 0.5 % Normal 0.2-2.0 [facility] Comment on above: Performed By: #### C BC #### [facility] [address] [place] [address] Dr. Jerald Poon EO # 0.1 103/ul Normal 0.0-0.7 [facility] Comment on above: Performed By: #### C BC #### [facility] [address] [place] [address] Dr. Jerald Poon Eosinophils/100 WBC (Bld) 1.7 % Normal 0.9-7.0 [facility] Comment on above: Performed By: #### C BC #### [facility] [address] [place] [address] Dr. Jerald Poon Erythrocyte distribution width (RBC) [Ratio] 14.2 % Normal 11.0-15.0 [facility] Comment on above: Performed By: #### C BC #### [facility] [address] [place] [address] Dr. Jerald Poon Hematocrit (Bld) [Volume fraction] 36.7 % Normal 36.0-48.0 [facility] Comment on above: Performed By: #### C BC #### [facility] [address] [place] [address] Dr. Jerald Poon Hemoglobin (Bld) [Mass/Vol] 12.1 g/dL Normal 12.0-16.0 [facility] Comment on above: Performed By: #### C BC #### [facility] [address] [place] [address] Dr. Jerald Poon IG # 0.01 10e3/ul Normal 0.00-0.03 [facility] Comment on above: Performed By: #### C BC #### [facility] [address] [place] [address] Dr. Jerald Poon IG % 0.1 % Normal 0.0-0.5 [facility] Comment on above: Performed By: #### C BC #### [facility] [address] [place] [address] Dr. Jerald Poon LYMPH # 2.3 103/ul Normal 1.2-3.8 [facility] Comment on above: Performed By: #### C BC #### [facility] [address] [place] [address] Dr. Jerald Poon Lymphocytes/100 WBC (Bld) 30.8 % Normal 20.5-60.0 [facility] Comment on above: Performed By: #### C BC #### [facility] [address] [place] [address] Dr. Jerald Poon MANUAL DIFF REQ NO Normal [facility] Comment on above: Performed By: #### C BC #### [facility] [address] [place] [address] Dr. Jerald Poon MCH (RBC) [Entitic mass] 27.3 pg Normal 26.7-34.0 [facility] Comment on above: Performed By: #### C BC #### [facility] [address] [place] [address] Dr. Jerald Poon MCHC (RBC) [Mass/Vol] 33.0 g/dL Normal 29.9-35.2 [facility] Comment on above: Performed By: #### C BC #### [facility] [address] [place] [address] Dr. Jerald Poon MCV (RBC) [Entitic vol] 82.7 fL Normal 81.0-99.0 [facility] Comment on above: Performed By: #### C BC #### [facility] [address] [place] [address] Dr. Jerald Poon MONO # 0.8 103/ul Normal 0.3-0.8 [facility] Comment on above: Performed By: #### C BC #### [facility] [address] [place] [address] Dr. Jerald Poon Monocytes/100 WBC (Bld) 10.6 % Normal 1.7-12.0 [facility] Comment on above: Performed By: #### C BC #### [facility] [address] [place] [address] Dr. Jerald Poon NEUT # 4.2 103/ul Normal 1.4-6.5 [facility] Comment on above: Performed By: #### C BC #### [facility] [address] [place] [address] Dr. Jerald Poon Neutrophils/100 WBC (Bld) 56.3 % Normal 43.0-75.0 [facility] Comment on above: Performed By: #### C BC #### [facility] [address] [place] [address] Dr. Jerald Poon Platelet mean volume (Bld) [Entitic vol] 10.2 fL Normal 9.5-13.5 [facility] Comment on above: Performed By: #### C BC #### [facility] [address] [place] [address] Dr. Jerald Poon PLT 375 103/ul Normal 150-450 [facility] Comment on above: Performed By: #### C BC #### [facility] [address] [place] [address] Dr. Jerald Poon RBC 4.44 106/ul Normal 4.20-5.40 [facility] Comment on above: Performed By: #### C BC #### [facility] [address] [place] [address] Dr. Jerald Poon WBC 7.5 103/ul Normal 4.0-11.0 [facility] Comment on above: Performed By: #### C BC #### [facility] [address] [place] [address] Dr. Jerald Poon ER URINE PROFILEon 2 Bilirubin Ql (U) Negative Normal NEGATIVE [facility] Comment on above: Performed By: #### C BC #### [facility] [address] [place] [address] Dr. Jerald Poon Clarity (U) CLEAR Normal CLEAR [facility] Comment on above: Performed By: #### C BC #### [facility] [address] [place] [address] Dr. Jerald Poon Color (U) YELLOW Normal YELLOW [facility] Comment on above: Performed By: #### C BC #### [facility] [address] [place] [address] Dr. Jerald CEBALLOS A micrscopic examination will be performed if indicated. Normal [facility] Comment on above: Performed By: #### C BC #### [facility] [address] [place] [address] Dr. Jerald Poon Glucose Ql (U) Negative Normal NEGATIVE [facility] Comment on above: Performed By: #### C BC #### [facility] [address] [place] [address] Dr. Jerald Poon Hemoglobin Ql (U) Negative Normal NEGATIVE [facility] Comment on above: Performed By: #### C BC #### [facility] [address] [place] [address] Dr. Jerald Poon Ketones Ql (U) Negative Normal NEGATIVE [facility] Comment on above: Performed By: #### C BC #### [facility] [address] [place] [address] Dr. Jerald Poon LEUKOCYTES Negative Normal NEGATIVE [facility] Comment on above: Performed By: #### C BC #### [facility] [address] [place] [address] Dr. Jerald Poon Nitrite Ql (U) Negative Normal NEGATIVE [facility] Comment on above: Performed By: #### C BC #### [facility] [address] [place] [address] Dr. Jerald Poon pH (U) 7.0 [pH] Normal 5-9 [facility] Comment on above: Performed By: #### C BC #### [facility] [address] [place] [address] Dr. Jerald Poon SPEC GRAVITY 1.025 Normal 1.005-<=1.02 5 [facility] Comment on above: Performed By: #### C BC #### [facility] [address] [place] [address] Dr. Jerald Poon UA PROTEIN Negative Normal NEGATIVE/ TRACE [facility] Comment on above: Performed By: #### C BC #### [facility] [address] [place] [address] Dr. Jerald Poon UR MICRO IND NOT INDICATED Normal [facility] Comment on above: Performed By: #### C BC #### [facility] [address] [place] [address] Dr. Jerald Poon Urobilinogen Qn (U) 1.0 {Lyly'U}/dL Normal 0.2 - 1. 0 [facility] Comment on above: Performed By: #### C BC #### [facility] [address] [place] [address] Dr. Jerald Poon PREG QUANT HCGon 04-01-2022 HCG QUANT 1 mIU/mL Normal [facility] Comment on above: Performed By: #### P REGQNT #### [facility] [address] [place] [address] Dr. Jerald Poon HCG RANGE SEE BELOW Normal [facility] Comment on above: Result Comment: 5-50 0.2-1 WEEK 50-500 1-2 WEEKS 100-5,000 2-3 WEEKS 500-10,000 3-4 WEEKS 1,000-50,000 4-5 WEEKS 10,000-100,000 5-6 WEEKS 15,000-200,000 6-8 WEEKS 10,000-100,000 2-3 MONTHS Performed By: #### P REGQNT #### [facility] [address] [place] [address] Dr. Jerald Poon PROF 14(COMP METB)on 022 Albumin [Mass/Vol] 3.6 g/dL Normal 3.4-5.0 [facility] Comment on above: Performed By: #### C MP #### [facility] [address] [place] [address] Dr. Jerald Poon Albumin/Globulin [Mass ratio] 0.8 {ratio} Normal [facility] Comment on above: Performed By: #### C MP #### [facility] [address] [place] [address] Dr. Jerald Poon ALP [Catalytic activity/Vol] 65 U/L Normal 46-116 [facility] Comment on above: Performed By: #### C MP #### [facility] [address] [place] [address] Dr. Jerald Poon ALT [Catalytic activity/Vol] 22 U/L Normal 14-59 [facility] Comment on above: Performed By: #### C MP #### [facility] [address] [address] [address] Jerald Poon Anion gap [Moles/Vol] 10.3 mmol/L Normal [facility] Comment on above: Performed By: #### C MP #### [facility] [address] [place] [address] Dr. Jerald Poon AST [Catalytic activity/Vol] 14 U/L Critically low 15-37 [facility] Comment on above: Performed By: #### C MP #### [facility] [address] [place] [address] Dr. Jerald Poon Bilirubin [Mass/Vol] 0.1 mg/dL Critically low 0.2-1.0 [facility] Comment on above: Performed By: #### C MP #### [facility] [address] [place] [address] Dr. Jerald Poon Calcium [Mass/Vol] 8.6 mg/dL Normal 8.5-10.1 [facility] Comment on above: Performed By: #### C MP #### [facility] [address] [place] [address] Dr. Jerald Poon Chloride [Moles/Vol] 104 mmol/L Normal 98-107 [facility] Comment on above: Performed By: #### C MP #### [facility] [address] [address] [address] Jerald Poon CO2 [Moles/Vol] 28.1 mmol/L Normal 21.0-32.0 [facility] Comment on above: Performed By: #### C MP #### [facility] [address] [address] [address] Jerald Poon Creatinine [Mass/Vol] 0.99 mg/dL Normal 0.55-1.02 [facility] Comment on above: Performed By: #### C MP #### [facility] [address] [address] [address] Jerald Poon EGFR-AF [place]IZ[place] >60 Normal >=60 [facility] Comment on above: Performed By: #### C MP #### [facility] [address] [address] [address] Jerald Poon EGFR-NON AF [place]IZ[place] >60 Normal >=60 [facility] Comment on above: Performed By: #### C MP #### [facility] [address] [address] [address] Jerald Poon Globulin (S) [Mass/Vol] 4.5 g/dL Normal [facility] Comment on above: Performed By: #### C MP #### [facility] [address] [place] [address] Dr. Jerald Poon Glucose [Mass/Vol] 94 mg/dL Normal 74-106 [facility] Comment on above: Performed By: #### C MP #### [facility] [address] [address] [address] Jerald Poon Potassium [Moles/Vol] 3.4 mmol/L Critically low 3.5-5.1 [facility] Comment on above: Performed By: #### C MP #### [facility] [address] [place] [address] Dr. Jerald Poon Protein [Mass/Vol] 8.1 g/dL Normal 6.4-8.2 [facility] Comment on above: Performed By: #### C MP #### [facility] [address] [address] [address] Jerald Poon Sodium [Moles/Vol] 139 mmol/L Normal 136-145 [facility] Comment on above: Performed By: #### C MP #### [facility] [address] [address] [address] Jerald Poon Urea nitrogen [Mass/Vol] 8.0 mg/dL Normal 7.0-18.0 [facility] Comment on above: Performed By: #### C MP #### [facility] [address] [place], [place] [address] Dr. Jerald Poon Urea nitrogen/Creatinine [Mass ratio] 8.1 mg/mg Normal [facility] Comment on above: Performed By: #### C MP #### [facility] [address] [place], [place] [address] Dr. Jerald Poon US PELVIS TRANSVAGon 022 [...] LUH MANRIQUE Date: 2022-04-01 21:55 Normal [facility] Automated erythrocytes count in urine sediment (number/area)Ordered By: Anders Sesay on 10-19-2021 RBC Auto (Urine sed) [#/Area] 1-2 [HPF] [facility] Automated leukocytes count i n urine sediment (number/area)Ordered By: Anders Sesay on 10-19-2021 WBC Auto (Urine sed) [#/Area] 3-4 [HPF] [facility] Basophils Auto (Bld) [#/Vol] Ordered By: Anders Sesay on 10-19-2021 Basophils (Bld) [#/Vol] 0.1 10*3/uL 0.0-0.2 [facility] Basophils/100 WBC Auto (Bld) Ordered By: Anders Sesay on 10-19-2021 Basophils/100 WBC (Bld) 0.6 % [facility] Bilirubin Test strip Ql (U)O rdered By: Anders Sesay on 10-19-2021 Bilirubin Ql (U) Negative Negative [facility] Blood hemoglobin measurement (mass/volume)Ordered By: Anders Sesay on 10-19-2021 Hemoglobin (Bld) [Mass/Vol] 13.2 g/dL 11.8-15.4 [facility] Blood leukocytes automated c ount (number/volume)Ordered By: Anders Sesay on 10-19-2021 WBC (Bld) [#/Vol] 9.1 10*3/uL 4.5-11.0 [facility] Body fluid albumin measureme nt (mass/volume)Ordered By: Anders Sesay on 10-19-2021 Albumin (Body fld) [Mass/Vol] 3.8 g/dL 3.2-5.5 [facility] Color Auto (U)Ordered By: Jason Sesay on 10-19-2021 Color (U) Yellow Yellow [facility] Creatinine and Glomerular fi ltration rate.predicted panel (S/P/Bld)Ordered By: Anders Sesay on 10-19-2021 Creatinine [Mass/Vol] 0.87 mg/dL 0.44-1.03 [facility] Eosinophils Auto (Bld) [#/Vo l]Ordered By: Anders Sesay on 10-19-2021 Eosinophils (Bld) [#/Vol] 0.1 10*3/uL 0.0-0.45 [facility] Eosinophils/100 WBC Auto (Bl d)Ordered By: Anders Sesay on 10-19-2021 Eosinophils/100 WBC (Bld) 0.9 % [facility] Erythrocyte distribution wid th Auto (RBC) [Ratio]Ordered By: Anders Sesay on 10-19-2021 Erythrocyte distribution width (RBC) [Ratio] 16.4 % 11.9-15.3 [facility] Estimated glomerular filtrat ion rate (GFR) non- AmericanOrdered By: Anders Sesay on 10-19-2021 GFR/1.73 sq M.predicted among non-blacks MDRD (S/P/Bld) [Vol rate/Area] > 60 mL/Min [facility] Globulin Calc (S) [Mass/Vol] Ordered By: Anders Sesay on 10-19-2021 Globulin (S) [Mass/Vol] 4.3 g/dL [facility] HCG ( test) IA.rapi d Ql (U)Ordered By: Anders Sesay on 10-19-2021 HCG ( test) Ql (U) Negative [facility] Hematocrit Auto (Bld) [Volum e fraction]Ordered By: Anders Sesay on 10-19-2021 Hematocrit (Bld) [Volume fraction] 40.2 % 34.0-46.4 [facility] Ketones Auto test strip (U) [Mass/Vol]Ordered By: Anders Sesay on 10-19-2021 Ketones (U) [Mass/Vol] Negative Negative [facility] - Hematology and Cell countsOrdered By: Anders Sesay on 10-19-2021 Nucleated RBC/100 WBC (Bld) [Ratio] 0.2 % 0-0.5 [facility] - UrinalysisOrder ed By: Anders Sesay on 10-19-2021 Hyaline casts LM Ql (Urine sed) 0-8 [LPF] [facility] Lymphocytes Auto (Bld) [#/Vo l]Ordered By: Anders Sesay on 10-19-2021 Lymphocytes (Bld) [#/Vol] 2.4 10*3/uL 1.00-4.8 [facility] Lymphocytes/100 WBC Auto (Bl d)Ordered By: Anders Sesay on 10-19-2021 Lymphocytes/100 WBC (Bld) 26.7 % [facility] MCH Auto (RBC) [Entitic mass ]Ordered By: Anders Sesay on 10-19-2021 MCH (RBC) [Entitic mass] 26.3 pg 24.7-34.3 [facility] MCHC Auto (RBC) [Mass/Vol]Or dered By: Anders Sesay on 10-19-2021 MCHC (RBC) [Mass/Vol] 32.9 g/dL 32.0-35.0 [facility] MCV Auto (RBC) [Entitic vol] Ordered By: Anders Sesay on 10-19-2021 MCV (RBC) [Entitic vol] 80.1 fL 80-100 [facility] Monocytes Auto (Bld) [#/Vol] Ordered By: Anders Sesay on 10-19-2021 Monocytes (Bld) [#/Vol] 0.7 10*3/uL 0.0-0.8 [facility] Monocytes/100 WBC Auto (Bld) Ordered By: Anders Sesay on 10-19-2021 Monocytes/100 WBC (Bld) 7.6 % [facility] Neutrophils Auto (Bld) [#/Vo l]Ordered By: Anders Sesay on 10-19-2021 Neutrophils (Bld) [#/Vol] 5.8 10*3/uL 1.8-7.7 [facility] Neutrophils/100 WBC Auto (Bl d)Ordered By: Anders Sesay on 10-19-2021 Neutrophils/100 WBC (Bld) 64.2 % [facility] Nitrite Test strip Ql (U)Ord ered By: Anders Sesay on 10-19-2021 Nitrite Ql (U) Negative Negative [facility] No Panel InformationOrdered By: Anders Sesay on 10-19-2021 Estimated GFR () > 60 mL/Min [facility] Comment on above: GFR estimated refere nce range: According to KDOQI guidelines, <60 ml/min/1.73m2 is sufficient to diagnose a patient with chronic kidney disease. Pharmacy Creatinine Clearance (Chem 147.41 [facility] Platelet mean volume Auto (B ld) [Entitic vol]Ordered By: Anders Sesay on 10-19-2021 Platelet mean volume (Bld) [Entitic vol] 8.6 fL 6.3-10.7 [facility] Platelets Auto (Bld) [#/Vol] Ordered By: Anders Sesay on 10-19-2021 Platelets (Bld) [#/Vol] 395 10*3/uL 150-450 [facility] Protein Auto test strip (U) [Mass/Vol]Ordered By: Anders Sesay on 10-19-2021 Protein (U) [Mass/Vol] Negative Negative [facility] Protein [Mass/volume] in Ser um or PlasmaOrdered By: Anders Sesay on 10-19-2021 Protein [Mass/Vol] 8.1 g/dL 6.1-7.9 [facility] RBC Auto (Bld) [#/Vol]Ordere d By: Anders Sesay on 10-19-2021 RBC (Bld) [#/Vol] 5.02 10*6/uL 3.60-5.00 [facility] Serum or plasma alanine ayoub otransferase measurement without P-5'-P (enzymatic activiOrdered By: Anders Sesay on 10-19-2021 ALT No additional P-5'-P [Catalytic activity/Vol] 20 U/L 10-60 [facility] Serum or plasma albumin/glob ulin mass ratioOrdered By: Anders Sesay on 10-19-2021 Albumin/Globulin [Mass ratio] 0.9 {ratio} [facility] Serum or plasma alkaline cosmo sphatase measurement (enzymatic activity/volume)Ordered By: Anders Sesay on 10-19-2021 ALP [Catalytic activity/Vol] 55 U/L 32-92 [facility] Serum or plasma aspartate am inotransferase measurement (enzymatic activity/volume)Ordered By: Anders Sesay on 10-19-2021 AST [Catalytic activity/Vol] 17 U/L 10-42 [facility] Serum or plasma calcium joann urement (mass/volume)Ordered By: Anders Sesay on 10-19-2021 Calcium [Mass/Vol] 9.1 mg/dL 8.2-10.2 [facility] Serum or plasma chloride adan surement (moles/volume)Ordered By: Anders Sesay on 10-19-2021 Chloride [Moles/Vol] 103 mmol/L 95-114 [facility] Serum or plasma glucose joann urement (mass/volume)Ordered By: Anders Sesay on 10-19-2021 Glucose [Mass/Vol] 105 mg/dL 70-100 [facility] Comment on above: ADA recommended refe rence range Random Glucose Reference Range is dependent on time and content of last meal. Glucose of more than 200 mg/dL in a nonstressed, ambulatory subject supports the diagnosis of Diabetes Mellitus. Serum or plasma potassium me asurement (moles/volume)Ordered By: Anders Sesay on 10-19-2021 Potassium [Moles/Vol] 3.7 mmol/L 3.5-5.1 [facility] Serum or plasma sodium measu rement (moles/volume)Ordered By: Anders Sesay on 10-19-2021 Sodium [Moles/Vol] 137 mmol/L 136-146 [facility] Serum or plasma total biliru bin measurement (mass/volume)Ordered By: Anders Sesay on 10-19-2021 Bilirubin [Mass/Vol] 0.3 mg/dL 0.3-1.2 [facility] Serum or plasma total carbon dioxide measurement (moles/volume)Ordered By: Anders Sesay on 10-19-2021 CO2 [Moles/Vol] 24.2 mmol/L 22.0-30.0 [facility] Serum or plasma urea nitroge n measurement (mass/volume)Ordered By: Anders Sesay on 10-19-2021 Urea nitrogen [Mass/Vol] 7 mg/dL 9-23 [facility] Specific gravity Auto test s trip (U) [Rel density]Ordered By: Anders Sesay on 10-19-2021 Specific gravity (U) [Rel density] 1.014 1.001-1.030 [facility] Squamous epithelial cells de tection in urine sediment by light microscopyOrdered By: Anders Sesay on 10-19-2021 Epithelial cells.squamous LM Ql (Urine sed) 3-4 [HPF] [facility] Urine bacteria detection by automated methodOrdered By: Anders Sesay on 10-19-2021 Bacteria Auto Ql (U) 1+ None Seen [facility] Urine clarity by refractomet ry automatedOrdered By: Anders Sesay on 10-19-2021 Clarity Refractometry automated (U) Clear Clear [facility] Urine glucose measurement by automated test strip (mass/volume)Ordered By: Anders Sesay on 10-19-2021 Glucose Auto test strip (U) [Mass/Vol] Normal mg/dL Normal [facility] Urine hemoglobin detection b y automated test stripOrdered By: Anders Sesay on 10-19-2021 Hemoglobin Auto test strip Ql (U) Negative Negative [facility] Urine leukocyte esterase det ection by automated test stripOrdered By: Anedrs Sesay on 10-19-2021 Leukocyte esterase Auto test strip Ql (U) 1+ Negative [facility] Urobilinogen Auto test strip (U) [Mass/Vol]Ordered By: Anders Sesay on 10-19-2021 Urobilinogen (U) [Mass/Vol] Normal mg/dL Normal [facility] pH Auto test strip (U)Ordere d By: Anders Sesay on 10-19-2021 pH (U) 5.5 [pH] 5.0-9.0 [facility] US DUP ABD PEL RETRO SCROT [...] MD 07/14/20 Edited Result - FINAL Normal [facility] US NON OB TRANSVAGINALon US [...] MD 07/14/20 Edited Result - FINAL Normal [facility] Chlamydia/GC,DNA Ampon 07-10 Chlamydia Probe Negative Normal NEG [facility] Comment on above: Result [...] Performed By: #### U HCG, UAMIC #### [facility] [address] [place], [place] [id number] [employer]: Campos Avilez MD Gonorrhea Probe Negative Normal NEG [facility] Comment on above: Result [...] Performed By: #### U HCG, UAMIC #### [facility] [address] [place], [place] [id number] [employer]: Campos Avilez MD Cult,Urineon 07-09-2020 Cult,Urine Specimen Description .CLEAN CATCH URINE Special Requests NOT REPORTED Culture ESCHERICHIA COLI >[id number] CFU/ML Report Status FINAL 07/09/2020 SUSCEPTIBILITY Organism [...] <=20 SUSCEPTIBLE Piperacillin/Tazobac her <=4 SUSCEPTIBLE Normal [facility] Comment on above: Performed By: #### U HCG, UAMIC #### [place] [address] [employer]: Campos Avilez MD ABO/Rh(D)on 07-08-2020 ABO/Rh(D) Positive Normal [facility] Comment on above: Performed By: #### A BRH #### [place] [address] [employer]: Campos Avilez MD CBC with Diffon 07-08-2020 Abs. Basophil 0.04 k/uL Normal 0.00-0.20 [facility] Comment on above: Performed By: #### C P, CDP, COSMO, BHCG, MG, VD25, LIP #### [place] [address] [employer]: Campos Avilez MD Abs.Imm.Granulocyte 0.04 k/uL Normal 0.00-0.30 [facility] Comment on above: Performed By: #### C P, CDP, COSMO, BHCG, MG, VD25, LIP #### [facility] [address] [place] [address] [employer]: Campos Avilez MD Abs.Neutrophil (Seg) 8.16 k/uL High 1.80-8.[address] [facility] Comment on above: Performed By: #### C P, CDP, COSMO, BHCG, MG, VD25, LIP #### [address] [address] [employer]: Campos Avilez MD Basophils/100 WBC (Bld) 0 % Normal 0-2 [facility] Comment on above: Performed By: #### C P, CDP, COSMO, BHCG, MG, VD25, LIP #### [address] [address] [employer]: Campos Avilez MD Eosinophils (Bld) [#/Vol] 0.10 10*3/uL Normal 0.00-0.44 [facility] Comment on above: Performed By: #### C P, CDP, COSMO, BHCG, MG, VD25, LIP #### [address] [address] [employer]: Campos Avilez MD Eosinophils/100 WBC (Bld) 1 % Normal 1-4 [facility] Comment on above: Performed By: #### C P, CDP, COSMO, BHCG, MG, VD25, LIP #### [address] [address] [employer]: Campos Avilez MD Erythrocyte distribution width (RBC) [Ratio] 14.0 % Normal 11.8-14.4 [facility] Comment on above: Performed By: #### C P, CDP, COSMO, BHCG, MG, VD25, LIP #### [address] [address] [employer]: Campos Avilez MD Hematocrit (Bld) [Volume fraction] 34.3 % Low 36.3-47.1 [facility] Comment on above: Performed By: #### C P, CDP, COSMO, BHCG, MG, VD25, LIP #### [address] [address] [employer]: Campos Avilez MD Hemoglobin (Bld) [Mass/Vol] 11.1 g/dL Low 11.9-15.1 [facility] Comment on above: Performed By: #### C P, CDP, COSMO, BHCG, MG, VD25, LIP #### [address] [address] [employer]: Campos Avilez MD Immature granulocytes (Bld) [#/Vol] 0 % Normal 0 [facility] Comment on above: Performed By: #### C P, CDP, COSMO, BHCG, MG, VD25, LIP #### [place] [address] [employer]: Campos Avilez MD Lymphocytes (Bld) [#/Vol] 1.77 10*3/uL Normal 1.20-5.20 [facility] Comment on above: Performed By: #### C P, CDP, COSMO, BHCG, MG, VD25, LIP #### [place] [address] [employer]: Campos Avilez MD Lymphocytes/100 WBC (Bld) 16 % Low 25-45 [facility] Comment on above: Performed By: #### C P, CDP, COSMO, BHCG, MG, VD25, LIP #### [place] [address] [employer]: Campos Avilez MD MCH (RBC) [Entitic mass] 26.6 pg Normal 25.0-35.0 [facility] Comment on above: Performed By: #### C P, CDP, COSMO, BHCG, MG, VD25, LIP #### [address] [address] [employer]: Campos Avilez MD MCHC (RBC) [Mass/Vol] 32.4 g/dL Normal 28.4-34.8 [facility] Comment on above: Performed By: #### C P, CDP, COSMO, BHCG, MG, VD25, LIP #### [address] [address] [employer]: Campos Avilez MD MCV (RBC) [Entitic vol] 82.3 fL Normal 78.0-102.0 [facility] Comment on above: Performed By: #### C P, CDP, COSMO, BHCG, MG, VD25, LIP #### [address] [address] [employer]: Campos Avilez MD Monocytes (Bld) [#/Vol] 0.73 10*3/uL Normal 0.10-1.40 [facility] Comment on above: Performed By: #### C P, CDP, COSMO, BHCG, MG, VD25, LIP #### [address] [address] [employer]: Campos Avilez MD Monocytes/100 WBC (Bld) 7 % Normal 2-8 [facility] Comment on above: Performed By: #### C P, CDP, COSMO, BHCG, MG, VD25, LIP #### [address] [address] [employer]: Campos Avilez MD Neutrophil (Seg) 75 % High 34-64 [facility] Comment on above: Performed By: #### C P, CDP, COSMO, BHCG, MG, VD25, LIP #### [address] [address] [employer]: Campos Avilez MD NRBC Automated 0.0 per 100 WBC Normal 0.0 [facility] Comment on above: Performed By: #### C P, CDP, COSMO, BHCG, MG, VD25, LIP #### [address] [address] [employer]: Campos Avilez MD Platelet mean volume (Bld) [Entitic vol] 11.8 fL Normal 8.1-13.5 [facility] Comment on above: Performed By: #### C P, CDP, COSMO, BHCG, MG, VD25, LIP #### [address] [address] [employer]: Campos Avilez MD Platelets (Bld) [#/Vol] 288 10*3/uL Normal 138-453 [facility] Comment on above: Performed By: #### C P, CDP, COSMO, BHCG, MG, VD25, LIP #### [address] [address] [employer]: Campos Avilez MD RBC (Bld) [#/Vol] 4.17 10*6/uL Normal 3.95-5.11 [facility] Comment on above: Performed By: #### C P, CDP, COSMO, BHCG, MG, VD25, LIP #### [address] [address] [employer]: Campos Avilez MD WBC (Bld) [#/Vol] 10.8 10*3/uL Normal 4.5-13.5 [facility] Comment on above: Performed By: #### C P, CDP, COSMO, BHCG, MG, VD25, LIP #### [address] [address] [employer]: Campos Avilez MD Auto Diff Performed NOT REPORTED Normal [facility] Comment on above: Performed By: #### C P, CDP, COSMO, BHCG, MG, VD25, LIP #### [address] [address] [employer]: Campos Avilez MD Platelets (Bld) [#/Vol] NOT REPORTED Normal [facility] Comment on above: Performed By: #### C P, CDP, COSMO, BHCG, MG, VD25, LIP #### [id number] [place] [address] [employer]: Campos Avilez MD RBC morphology finding Nom (Bld) NOT REPORTED Normal [facility] Comment on above: Performed By: #### C P, CDP, COSMO, BHCG, MG, VD25, LIP #### [facility] [address] [place] [address] [employer]: Campos Avilez MD WBC Morphology NOT REPORTED Normal [facility] Comment on above: Performed By: #### C P, CDP, COSMO, BHCG, MG, VD25, LIP #### [address] [address] [employer]: Campos Avilez MD Calcium, Ionicon 07-08-2020 Calcium [Mass/Vol] 1.18 mmol/L Normal 1.13-1.33 [facility] Comment on above: Performed By: #### I OCAL #### [address] [address] [employer]: Campos Avilez MD Calcium, Ionizedon Calcium [Mass/Vol] 1.18 mmol/L 1.13 - 1. 33 mmol/L [facility], [place] Comp Metabolic Profon 2020 (cont.) Normal [facility] Comment on above: Result Comment: Aver age GFR for <20 years old not available. Chronic Kidney Disease: <60 mL/min/1.73sq m Kidney failure: <15 mL/min/1.73sq m eGFR calculated using average adult body mass. Additional eGFR calculator available at: http://www.Prong.com/multiple_crcl_2012.htm Performed By: #### C P, CDP, COSMO, BHCG, MG, VD25, LIP #### [address] [address] [employer]: Campos Avilez MD Albumin [Mass/Vol] 2.3 g/dL Low 3.5-5.2 [facility] Comment on above: Performed By: #### C P, CDP, COSMO, BHCG, MG, VD25, LIP #### [address] [address] [employer]: Campos Avilez MD Albumin/Globulin [Mass ratio] 0.9 {ratio} Low 1.0-2.5 [facility] Comment on above: Performed By: #### C P, CDP, COSMO, BHCG, MG, VD25, LIP #### [address] [address] [employer]: Campos Avilez MD Alkaline Phos 41 U/L Normal 35-104 [facility] Comment on above: Result Comment: SPEC IMEN MODERATELY HEMOLYZED, RESULTS MAY BE ADVERSELY AFFECTED Performed By: #### C P, CDP, COSMO, BHCG, MG, VD25, LIP #### [address] [address] [employer]: Campos Avilez MD ALT [Catalytic activity/Vol] 11 U/L Normal 5-33 [facility] Comment on above: Result Comment: SPEC IMEN MODERATELY HEMOLYZED, RESULTS MAY BE ADVERSELY AFFECTED Performed By: #### C P, CDP, COSMO, BHCG, MG, VD25, LIP #### [address] [address] [employer]: Campos Avilez MD Anion gap [Moles/Vol] 9 mmol/L Normal 9-17 [facility] Comment on above: Performed By: #### C P, CDP, COSMO, BHCG, MG, VD25, LIP #### [address] [address] [employer]: Campos Avilez MD AST [Catalytic activity/Vol] 28 U/L Normal <32 [facility] Comment on above: Result Comment: SPEC IMEN MODERATELY HEMOLYZED, RESULTS MAY BE ADVERSELY AFFECTED Performed By: #### C P, CDP, COSMO, BHCG, MG, VD25, LIP #### [facility] [address] [place] [address] [employer]: Campos Avilez MD Bilirubin Ql (U) <0.10 Low 0.3-1.2 [facility] Comment on above: Performed By: #### C P, CDP, COSMO, BHCG, MG, VD25, LIP #### [facility] [address] [place] [address] [employer]: Campos Avilez MD Calcium [Mass/Vol] 5.5 mg/dL Critically low 8.6-10.4 [facility] Comment on above: Performed By: #### C P, CDP, COSMO, BHCG, MG, VD25, LIP #### [facility] [address] [place] [address] [employer]: Campos Avilez MD Chloride [Moles/Vol] 118 mmol/L High 98-[address] [facility] Comment on above: Performed By: #### C P, CDP, COSMO, BHCG, MG, VD25, LIP #### [facility] [address] [place] [address] [employer]: Campos Avilez MD CO2 [Moles/Vol] 14 mmol/L Low 20-31 [facility] Comment on above: Performed By: #### C P, CDP, COSMO, BHCG, MG, VD25, LIP #### [facility] [address] [place] [address] [employer]: Campos Avilez MD Creatinine [Mass/Vol] 0.60 mg/dL Normal 0.50-0.90 [facility] Comment on above: Performed By: #### C P, CDP, COSMO, BHCG, MG, VD25, LIP #### [address] [address] [employer]: Campos Avilez MD GFR,non Amer Pediatric GFR requires additional information. Refer to NKDEP website for Normal >60 [facility] Comment on above: Result Comment: calc ulator. Performed By: #### C P, CDP, COSMO, BHCG, MG, VD25, LIP #### [address] [address] [employer]: Campos Avilez MD Glucose [Mass/Vol] 84 mg/dL Normal 70-99 [facility] Comment on above: Performed By: #### C P, CDP, COSMO, BHCG, MG, VD25, LIP #### [address] [address] [employer]: Campos Avilez MD Potassium [Moles/Vol] 5.1 mmol/L Normal 3.7-5.3 [facility] Comment on above: Result Comment: SPEC IMEN MODERATELY HEMOLYZED, RESULTS MAY BE ADVERSELY AFFECTED Performed By: #### C P, CDP, COSMO, BHCG, MG, VD25, LIP #### [address] [address] [employer]: Campos Avilez MD Protein [Mass/Vol] 5.0 g/dL Low 6.4-8.3 [facility] Comment on above: Performed By: #### C P, CDP, COSMO, BHCG, MG, VD25, LIP #### [address] [address] [employer]: Campos Avilez MD Sodium [Moles/Vol] 141 mmol/L Normal 135-144 [facility] Comment on above: Performed By: #### C P, CDP, COSMO, BHCG, MG, VD25, LIP #### [address] [address] [employer]: Campos Avilez MD Urea nitrogen [Mass/Vol] 10 mg/dL Normal 6-20 [facility] Comment on above: Performed By: #### C P, CDP, COSMO, BHCG, MG, VD25, LIP #### [address] [address] [employer]: Campos Avilez MD BUN/CRE Ratio NOT REPORTED Normal 9-20 [facility] Comment on above: Performed By: #### C P, CDP, COSMO, BHCG, MG, VD25, LIP #### [facility] [address] [place] [address] [employer]: Campos Avilez MD GFR, Amer NOT REPORTED Normal >60 [facility] Comment on above: Performed By: #### C P, CDP, COSMO, BHCG, MG, VD25, LIP #### [facility] [address] [place] [address] [employer]: Campos Avilez MD Staging: NOT REPORTED Normal [facility] Comment on above: Performed By: #### C P, CDP, COSMO, BHCG, MG, VD25, LIP #### [facility] [address] [place] [address] [employer]: Campos Avilez MD HCG, ,Urineon 07-083 Beta HCG ( test) Ql (U) Negative Normal NEG [facility] Comment on above: Result [...] Performed By: #### U HCG, UAMIC #### [address] [address] [employer]: Campos Avilez MD HCG, Quanton 07-08-2020 HCG, Quant <1 Normal <5 [facility] Comment on above: Result [...] CDP, COSMO, BHCG, MG, VD25, LIP #### [facility] [address] [place] [address] [employer]: Campos Avilez MD Lipaseon 07-08-2020 Lipase [Catalytic activity/Vol] 15 U/L Normal 13-60 [facility] Comment on above: Performed By: #### C P, CDP, COSMO, BHCG, MG, VD25, LIP #### [facility] [address] [place] [address] [employer]: Campos Avilez MD Magnesiumon 07-08-2020 Magnesium [Mass/Vol] 1.2 mg/dL Low 1.7-2.[address] [facility] Comment on above: Performed By: #### C P, CDP, COSMO, BHCG, MG, VD25, LIP #### [facility] [address] [place] [address] [employer]: Campos Avilez MD Interpretation and review of laboratory results Abnormal [place], [place] Magnesium [Mass/Vol] 1.2 mg/dL Low 1.7 - 2 .2 mg/dL [place] Otheron 07-08-2020 Direct Exam Negative [place], [place] , URINEon 1 Beta HCG ( test) Ql (U) Negative NEGATIVE [place] Comment on above: Specimens with hCG [...] 2.6 mg/dL 2.5 - 4 .8 mg/dL [place] Phosphorus, Inorg.on 021 Phosphorus, Inorg. 2.6 mg/dL Normal 2.5-4.8 [facility] Comment on above: Performed By: #### U HCG, UAMIC #### [facility] [address] [place] [address] [employer]: Campos Avilez MD NON OB TRANSVAGINALon Elia, Mhpn Incoming Radiant Results From [facility] - 07/08/2020 12:31 AM EST EXAMINATION: PELVIC [...] No evidence of ovarian torsion is noted. [place], [place] Unremarkable pelvic ultrasound. No evidence of ovarian torsion is noted. [place] EXAMINATION: PELVIC ULTRASOUND 07/07/2020 TECHNIQUE: Transvaginal [...] Free Fluid: No evidence of free fluid. [facility]- [place], [place] Urinalysis w/ Microon 2020 ----- Normal [facility] Comment on above: Performed By: #### U HCG, UAMIC #### [address] [address] [employer]: Campos Avilez MD Acetoacetic Acid,Ur Negative Normal NEG [facility] Comment on above: Performed By: #### U HCG, UAMIC #### [address] [address] [employer]: Campos Avilez MD Bacteria LM.HPF (Urine sed) [#/Area] MANY Abnormal NONE [facility] Comment on above: Performed By: #### U HCG, UAMIC #### [address] [address] [employer]: Campos Avilez MD Bilirubin, SemiQt,Ur Negative Normal NEG [facility] Comment on above: Performed By: #### U HCG, UAMIC #### [address] [address] [employer]: Campos Avilez MD Color (U) ORANGE Abnormal YEL [facility] Comment on above: Result Comment: INTE RPRET WITH CAUTION DUE TO INTENSE COLOR OF URINE. Performed By: #### U HCG, UAMIC #### [address] [address] [employer]: Campos Avilez MD Epithelial cells LM.HPF (Urine sed) [#/Area] 0 TO 2 Normal 0-5 [facility] Comment on above: Performed By: #### U HCG, UAMIC #### [address] [address] [employer]: Campos Avilez MD Glucose Ql (U) Negative Normal NEG [facility] Comment on above: Performed By: #### U HCG, UAMIC #### [address] [address] [employer]: Campos Avilez MD Hemoglobin, Ur LARGE Abnormal NEG [facility] Comment on above: Performed By: #### U HCG, UAMIC #### [address] [address] [employer]: Campos Avilez MD Leukocyte esterase Test strip Ql (U) MODERATE Abnormal NEG [facility] Comment on above: Performed By: #### U HCG, UAMIC #### [address] [address] [employer]: Campos Avilez MD Nitrite,Ur Positive Abnormal NEG [facility] Comment on above: Performed By: #### U HCG, UAMIC #### [address] [address] [employer]: Campos Avilez MD pH (U) 5.5 [pH] Normal 5.0-8.0 [facility] Comment on above: Performed By: #### U HCG, UAMIC #### [address] [address] [employer]: Campos Avilez MD Protein Ql (U) 2+ Abnormal NEG [facility] Comment on above: Performed By: #### U HCG, UAMIC #### [address] [address] [employer]: Campos Avilez MD RBC (U) [#/Vol] 50 TO 100 Normal 0-4 [facility] Comment on above: Result Comment: Refe rence range defined for non-centrifuged specimen. Performed By: #### U HCG, UAMIC #### [address] [address] [employer]: Campos Avilez MD Specific gravity (U) [Rel density] 1.021 Normal 1.005-1.030 [facility] Comment on above: Performed By: #### U HCG, UAMIC #### [address] [address] [employer]: Campos Avilez MD Turbidity TURBID Abnormal CLEAR [facility] Comment on above: Performed By: #### U HCG, UAMIC #### [address] [address] [employer]: Campos Avilez MD Urobilinogen,Ur Normal Normal NORM [facility] Comment on above: Performed By: #### U HCG, UAMIC #### [address] [address] [employer]: Campos Avilez MD WBC (U) [#/Vol] TOO NUMEROUS TO COUNT Normal 0-5 [facility] Comment on above: Performed By: #### U HCG, UAMIC #### [address] [address] [employer]: Campos Avilez MD Amorphous sediment LM Ql (Urine sed) NOT REPORTED Normal NONE [facility] Comment on above: Performed By: #### U HCG, UAMIC #### [address] [address] [employer]: Campos Avilez MD Casts LM.LPF (Urine sed) [#/Area] NOT REPORTED Normal 0-8 [facility] Comment on above: Performed By: #### U HCG, UAMIC #### [address] [address] [employer]: Campos Avilez MD Crystals LM Nom (Urine sed) NOT REPORTED Normal NONE [facility] Comment on above: Performed By: #### U HCG, UAMIC #### [address] [address] [employer]: Campos Avilez MD Epithelial, Renal NOT REPORTED Normal 0 [facility] Comment on above: Performed By: #### U HCG, UAMIC #### [address] [address] [employer]: Campos Avilez MD Mucus Strands NOT REPORTED Normal NONE [facility] Comment on above: Performed By: #### U HCG, UAMIC #### [address] [address] [employer]: Campos Avilez MD Other Observations NOT REPORTED Normal NREQ [facility] Comment on above: Performed By: #### U HCG, UAMIC #### [address] [address] [employer]: Campos Avilez MD Trichomonas NOT REPORTED Normal NONE [facility] Comment on above: Performed By: #### U HCG, UAMIC #### [address] [address] [employer]: Campos Avilez MD Yeast LM Ql (Urine sed) NOT REPORTED Normal [facility] Comment on above: Performed By: #### U HCG, UAMIC #### [facility] [address] [place] [address] [employer]: Campos Avilez MD Urinalysis with microscopico n 07-08-2020 Amorphous, UA NOT REPORTED None [facility] [place] [place] Bacteria, UA MANY Abnormal None [facility] [place], [place] Bilirubin Urine Negative NEGATIVE [facility] [place] Casts UA NOT REPORTED [facility] [place], [place] Color, UA ORANGE Abnormal YELLOW [facility], [place] Comment on above: INTERPRET WITH CAUTI ON DUE TO INTENSE COLOR OF URINE. Crystals, UA NOT REPORTED None /HPF [place] Epithelial Cells UA 0 TO 2 [place], [place] Glucose, Ur Negative NEGATIVE [place] Interpretation and review of laboratory results Abnormal [place] Ketones Ql (U) Negative NEGATIVE [place] Leukocyte esterase Test strip Ql (U) MODERATE Abnormal NEGATIVE [place] Mucus, UA NOT REPORTED None [place], [place] Nitrite, Urine Positive Abnormal NEGATIVE [place] Other Observations UA NOT REPORTED NOT REQ. M [place] pH, UA 5.5 [place], [place] Protein (U) [Mass/Vol] 2+ Abnormal NEGATIVE [place], [place] RBC (U) [#/Vol] 50 TO 100 [place], [place] Comment on above: Reference range defi sonia for non-centrifuged specimen. Renal Epithelial, UA NOT REPORTED 0 /HPF [place] Specific [place], UA 1.021 [place], [place] Trichomonas, UA NOT REPORTED None [place], [place] Turbidity UA TURBID Abnormal CLEAR [place] Urine Hgb LARGE Abnormal NEGATIVE [place] Urobilinogen, Urine Normal Normal [place] WBC, UA TOO NUMEROUS TO COUNT [place] Yeast, UA NOT REPORTED None [place] - [place] VAGINITIS DNA PROBEon 2020 Direct Exam Positive Abnormal [place], [place] Direct Exam Method of testing is a DNA probe intended for detection and identification of Samantha species, Gardnerella vaginalis, and Trichomonas vaginalis nucleic acid in vaginal fluid specimens from patients with symptoms of vaginitis/vaginosis. [place] Interpretation and review of laboratory results Abnormal [place] Special Requests NOT REPORTED [place] Specimen Description .VAGINA [place] Vaginitis DNA Probeon 2020 Vaginitis DNA [...] of vaginitis/vaginosis. Report Status FINAL 07/08/2020 Normal [facility] Comment on above: Performed By: #### U HCG, UAMIC #### [facility] [address] [place] [address] [phone] [employer]: Campos Avilez MD Vitamin D 25 Hydroxyon 07-08 Interpretation and review of laboratory results Abnormal [place], [place] Vit D, 25-Hydroxy 12.1 ng/mL Low 30 - 100 ng/mL [place], [place] Comment on above: Reference Range: Vitamin D status Range Deficiency <20 ng/mL Mild Deficiency 20-30 ng/mL Sufficiency 30-100 ng/mL Toxicity >100 ng/mL Vitamin D 25 OHon 07-08-2020 Vitamin D 25 [place] 12.1 ng/mL Low 30.0-100.0 [facility] Comment on above: Result Comment: Reference Range: Vitamin D status Range Deficiency <20 ng/mL Mild Deficiency 20-30 ng/mL Sufficiency 30-100 ng/mL Toxicity >100 ng/mL Performed By: #### U HCG, UAMIC #### [facility] [address] [place] [phone] [employer]: Campos Avilez MD ABO/RHon 07-07-2020 ABO/Rh Positive [place] CBC WITH AUTO DIFFERENTIALon 07-07-2020 Basophils (Bld) [#/Vol] 0.04 10*3/uL [place] Basophils/100 WBC (Bld) 0 % 0 - 2 % [place] Differential Type NOT REPORTED [place] Eosinophils (Bld) [#/Vol] 0.10 10*3/uL [place] Eosinophils/100 WBC (Bld) 1 % 1 - 4 % [place] Erythrocyte distribution width (RBC) [Ratio] 14.0 % 11.8 - 14.4 % [place] Hematocrit (Bld) [Volume fraction] 34.3 % Low 36.3 - 47.1 % [place] Hemoglobin (Bld) [Mass/Vol] 11.1 g/dL Low 11.9 - 15.1 g/dL [place] Immature granulocytes (Bld) [#/Vol] 0 % 0 [place] Immature granulocytes (Bld) [#/Vol] 0.04 10*3/uL [place] Interpretation and review of laboratory results Abnormal [place] Lymphocytes (Bld) [#/Vol] 1.77 10*3/uL [place] Lymphocytes/100 WBC (Bld) 16 % Low 25 - 45 % [place] MCH (RBC) [Entitic mass] 26.6 pg 25 - 35 pg [place] MCHC (RBC) [Mass/Vol] 32.4 g/dL 28.4 - 34.8 g/dL [place] MCV (RBC) [Entitic vol] 82.3 fL 78 - 102 fL [place] Monocytes (Bld) [#/Vol] 0.73 10*3/uL [place] Monocytes/100 WBC (Bld) 7 % 2 - 8 % [place] Platelet mean volume (Bld) [Entitic vol] 11.8 fL 8.1 - 13.5 fL [place] Platelets (Bld) [#/Vol] NOT REPORTED [place] Platelets (Bld) [#/Vol] 288 10*3/uL [place] RBC (Bld) [#/Vol] 4.17 10*6/uL 3.95 - 5.1 1 m/uL [place] RBC morphology finding Nom (Bld) NOT REPORTED [place] Segmented neutrophils/100 WBC (Bld) 75 % High 34 - 64 % [place] Segs Absolute 8.16 [place] WBC (Bld) [#/Vol] 0.0 10*3/uL 0.0 per 10 0 WBC [place] WBC (Bld) [#/Vol] 10.8 10*3/uL [place] WBC Morphology NOT REPORTED [place] COMPREHENSIVE METABOLIC PANE [place] 07-07-2020 Albumin [Mass/Vol] 2.3 g/dL Low 3.5 - 5.2 g/dL [place] Albumin/Globulin [Mass ratio] 0.9 {ratio} Low [place] ALP [Catalytic activity/Vol] 41 U/L 35 - 104 U/L [place] Comment on above: SPECIMEN MODERATELY HEMOLYZED, RESULTS MAY BE ADVERSELY AFFECTED ALT [Catalytic activity/Vol] 11 U/L 5 - 33 U/L [place] Comment on above: SPECIMEN MODERATELY HEMOLYZED, RESULTS MAY BE ADVERSELY AFFECTED Anion gap [Moles/Vol] 9 mmol/L 9 - 17 mmol/L [place] AST [Catalytic activity/Vol] 28 U/L <32 [place] Comment on above: SPECIMEN MODERATELY HEMOLYZED, RESULTS MAY BE ADVERSELY AFFECTED Bilirubin Ql (U) <0.10 Low 0.3 - 1.2 mg/dL [place] Bun/Cre Ratio NOT REPORTED [place] Calcium [Mass/Vol] 5.5 mg/dL Critically low 8.6 - 1 0.4 mg/dL [place] Chloride [Moles/Vol] 118 mmol/L High 98 - 10 7 mmol/L [place] CO2 [Moles/Vol] 14 mmol/L Low 20 - 31 mmol/L [place] Creatinine [Mass/Vol] 0.6 mg/dL 0.5 - 0.9 mg/dL [place] GFR NOT REPORTED >60 mL/min [place] GFR Non- Pediatric GFR requires additional information. Refer to NKDEP website for calculator. >60 mL/min [place] GFR/1.73 sq M predicted among non-blacks MDRD (S/P/Bld) [Vol rate/Area] NOT REPORTED [place] GFR/1.73 sq M predicted among non-blacks MDRD (S/P/Bld) [Vol rate/Area] [place] Comment on above: Average GFR for <20 years old not available. Chronic Kidney Disease: <60 mL/min/1.73sq m Kidney failure: <15 mL/min/1.73sq m eGFR calculated using average adult body mass. Additional eGFR calculator available at: http://www.PrintFu/multiple_crcl_2012.htm Glucose [Mass/Vol] 84 mg/dL 70 - 99 mg/dL [place] Interpretation and review of laboratory results Abnormal [place] Potassium [Moles/Vol] 5.1 mmol/L 3.7 - 5.3 mmol/L [place] Comment on above: SPECIMEN MODERATELY HEMOLYZED, RESULTS MAY BE ADVERSELY AFFECTED Protein [Mass/Vol] 5.0 g/dL Low 6.4 - 8.3 g/dL [place] Sodium [Moles/Vol] 141 mmol/L 135 - 144 mmol/L [place] Urea nitrogen [Mass/Vol] 10 mg/dL 6 - 20 mg/dL [place] HCG, QUANTITATIVE, on 07-07-2020 hCG Quant <1 <5 IU/L [place] Comment on above: Non-preg premeno <=5 [...] activity/Vol] 15 U/L 13 - 60 U/L [place] Vital Signs Date Time Vital Sign Value Performing Clinician Facility 10-26-2023 03:30-0400 Hourly Rounding [facility] Comment on above: Result Comment: pt discharged off unit 10-26-2023 03:15-0400 Hourly Rounding [facility] Comment on above: Result Comment: went over discharge inst ructions. educated pt on importance of contacting primary provider with future concerns, pisking up antibiotic prescription tomorrow, and calling is symtpoms return or get worse. 10-26-2023 00:00-0400 Blood Pressure Location [facility] 10-26-2023 00:00-0400 Body temperature 98.6 [degF] [facility] 10-26-2023 00:00-0400 Diastolic blood pressure 68 mm[Hg] [facility] 10-26-2023 00:00-0400 Heart rate 101 /min [facility] 10-26-2023 00:00-0400 Hourly Rounding [facility] 10-26-2023 00:00-0400 Mean blood pressure 86 mm[Hg] [facility] 10-26-2023 00:00-0400 Respiratory rate 16 /min [facility] 10-26-2023 00:00-0400 Systolic blood pressure 122 mm[Hg] [facility] 07-17-2023 11:42-0500 Body weight 127.82 kg Chung Benja Locately Work Phone: [facility] 07-17-2023 11:42-0500 Diastolic blood pressure 70 mm[Hg] Chung Benja DO Work Phone: [facility] 07-17-2023 11:42-0500 Systolic blood pressure 118 mm[Hg] Chung Benja DO Work Phone: [facility] 10-19-2021 01:12-0400 Diastolic blood pressure 62 mm[Hg] PHYSICIAN [facility] 10-19-2021 01:12-0400 Heart rate 89 /min PHYSICIAN [facility] 10-19-2021 01:12-0400 Respiratory rate 18 /min PHYSICIAN [facility] 10-19-2021 01:12-0400 SaO2% (BldA) [Mass fraction] 100 % PHYSICIAN [facility] 10-19-2021 01:12-0400 Systolic blood pressure 130 mm[Hg] PHYSICIAN [facility] 10-18-2021 23:10-0400 Body height 167.64 cm PHYSICIAN [facility] 10-18-2021 23:10-0400 Body mass index (BMI) [Percentile] Per age and sex 99.1 % PHYSICIAN [facility] 10-18-2021 23:10-0400 Body mass index (BMI) [Ratio] 48.2 kg/m2 PHYSICIAN [facility] 10-18-2021 23:10-0400 Body weight 135.5 kg PHYSICIAN [facility] 10-18-2021 23:08-0400 Body temperature 98.4 [degF] PHYSICIAN [facility] 07-07-2020 21:51-0500 BMI (Body Mass Index) 42.93 kg/m2 [facility] [place] [facility], [place] 07-07-2020 21:51-0500 Body weight 120.66 kg [facility] [place], [place] 07-07-2020 21:51-0500 BP Diastolic 85 mm[Hg] [facility], [place] 07-07-2020 21:51-0500 BP Systolic 136 mm[Hg] [facility] , [place] 07-07-2020 21:51-0500 Height 167.6 cm [facility], [place] 07-07-2020 21:51-0500 Pulse (Heart Rate) 93 /min [facility], [place] 07-07-2020 21:51-0500 Pulse Oximetry 97 % [facility] , [place] 07-07-2020 21:51-0500 Respiratory Rate 18 /min [facility], [place] 07-07-2020 21:48-0500 Body Temperature 97.11 [degF] [facility] [place], [place] Encounters Encounter Date Encounter Type Care Provider Facility Start: 12-31-2023 End: 12-31-2023 ambulatory HALIMA SUBHASH Not Available Start: 12-17-2023 End: 12-17-2023 ambulatory HALIMA SUBHASH Not Available Start: 12-03-2023 End: 12-03-2023 ambulatory CHUNG BENJA Not Available Start: 11-19-2023 End: 11-19-2023 ambulatory CHUNG BENJA Not Available Start: 11-04-2023 End: 11-04-2023 ambulatory HALIMA SUBHASH Not Available Start: 10-26-2023 End: 10-26-2023 ambulatory Fuentes Florentino Facility:[facility] Start: 10-25-2023 End: 10-26-2023 OB Triage Fuentes Florentino [facility] Start: 10-07-2023 End: 10-07-2023 ambulatory CHUNG [...] patient visit PHYSICIAN NO FAMILY Facility:[facility] Start: 10-18-2021 End: 10-19-2021 Emergency department patient visit PHYSICIAN NO FAMILY [facility] Start: 07-07-2020 End: 07-08-2020 Emergency department patient visit DAVID AQUINO [facility] Start: 07-07-2020 End: 07-08-2020 Emergency department patient visit Lisa [place] Work Phone: [facility] ED Comment on above: BV (bacterial [...] AM EDT Routine [facility] [address] [place] [id number] Halima Cullen PA [address] [place], [place] [id number] [facility] Start: 07-17-2023 End: 07-17-2024 US for US OB VIABLILITY Imaging Routine with uncertain viability, single or unspecified fetus Expected: 07/17/2023 (Approximate), Expires: 07/17/2024 [facility] Work Phone: Comment on above: Expected: [...] 02-01-2020 Influenza vaccination Flu vaccine (# 1) [place], [place] Start: 2018 Meningococcal (ACWY) vaccine (1 - 2-dose series) Meningococcal (ACWY) vaccine (1 - 2-dose series) [place] Start: 2018 Screening for Chlamy nancy trachomatis Chlamydia screen [place], [place] Start: 2017 HIV screening HIV screen [place], [place] Start: 2013 HPV vaccine (1 - 2-d ose series) HPV vaccine (1 - 2-dose series) [place] Start: 2009 DTaP/Tdap/Td vaccine (1 - Tdap) DTaP/Tdap/Td vaccine (1 - Tdap) [place] Start: 2003 Hepatitis A vaccine (1 of 2 - 2-dose series) Hepatitis A vaccine (1 of 2 - 2-dose series) [place] Start: 2003 Measles,Mumps,Rubell a (MMR) vaccine (1 of 2 - Standard series) Measles,Mumps,Rubella (MMR) vaccine (1 of 2 - Standard series) [place] Start: 2003 Varicella vaccine (1 of 2 - 2-dose childhood series) Varicella vaccine (1 of 2 - 2-dose childhood series) [place] Start: 2002 Hepatitis B vaccine (1 of 3 - 3-dose primary series) Hepatitis B vaccine (1 of 3 - 3-dose primary series) [place] Start: 2002 Hepatitis C screening [facility] C [facility] [place] Bacteria identified in Urine by Culture Urine culture Microbiology Routine Missed menses Ordered: 07/03/2023 [facility] Comment on above: Ordered: 07/03/2023 End: 07-07-2020 C.trachomatis N.gonorrhoeae DNA C.trachomatis N.gonorrhoeae DNA Microbiology STAT One Time for 1 Occurrences starting 07/07/2020 until 07/07/2020 [place] Comment on above: One Time for 1 Occur rences starting 07/07/2020 until 07/07/2020 C.trachomatis N.gonorrhoeae DNA C.trachomatis N.gonorrhoeae DNA Microbiology Stat [employer] Label print 07/07/2020 11:20 PM [place], [place] End: 07-08-2020 Calcium, Ionized Calcium, Ionized Lab STAT One Time for 1 Occurrences starting 07/08/2020 until 07/08/2020 [place] Comment on above: One Time for 1 Occur rences starting 07/08/2020 until 07/08/2020 CBC W Auto Different ial panel - Blood CBC and differential Lab Routine Missed menses Ordered: 07/03/2023 [facility] Comment on above: Ordered: 07/03/2023 End: 07-07-2020 Culture, Urine Culture, Urine Microbiology STAT One Time for 1 Occurrences starting 07/07/2020 until 07/07/2020 [place] Comment on above: One Time for 1 Occur rences starting 07/07/2020 until 07/07/2020 Culture, Urine Culture, Urine Microbiology Stat [employer] Label print 07/07/2020 10:56 PM [facility] [place] Hemoglobin A1c measurement Hemoglobin A1c Lab Routine [...] Education Common Breast Problems Pelvic Pain ED [facility] Work Phone: Patient referral [facility] Work Phone: Reagin Ab [Presence] in [...] for 1 Occurrences starting 07/07/2020 until 07/07/2020 [facility] Comment on above: Once for 1 Occurrenc es starting 07/07/2020 until 07/07/2020 US DUP ABD PEL RETRO SCROT LIMITED US DUP ABD PEL RETRO SCROT LIMITED Imaging STAT 07/08/2020 12:13 AM [facility] Payers Date Payer Category Payer Unknown BCBS BCBS [id number] 2023-Present [phone] [address] [place] [address] [id number] 2023 Unknown [id number] 2021 [facility] [id number] 2002 Unknown [id number] 2002 Unknown [id number] [id number] 2002 Unknown [id number] [id number] 2002 Unknown [id number] [id number] 2002 Unknown [id number] [id number] 2002 Unknown [id number] [id number] 2002 Unknown [id number] 2.16.840.1.312771.3.579.2.1259 2002 Unknown [id number] 2.16.840.1.965168.3.579.2.1258 2002 Unknown [id number] 2.16.840.1.590018.3.579.2.1259 2002 Unknown [id number] 2.16.840.1.483013.3.579.2.125 2002 Unknown [id number] 2.16.840.1.314537.3.579.2.125 2002 Unknown [id number] 2.16.840.1.364079.3.579.2.1258 2002 Unknown [id number] 2.16.840.1.592673.3.579.2.1258 2002 Unknown [id number] 2.16.840.1.667113.3.579.2.125 2002 Unknown [id number] [id number] 1959 Medicaid [id number] 1959 Unknown [id number] Unknown [id number] Social History Date Type Detail Facility Start: 07-07-2020 End: 07-16-2023 Tobacco smoking status ILIS Never smoker [facility] Start: 07-07-2020 Tobacco use and exposure Never used [place] [place] Start: 2002 Sex Assigned At Not on file [place], [place] Exposure to SARS-CoV-2 (event) Not sure [place], [place] Start: 10-19-2021 Tobacco smoking status ILIS Smoker (finding) [facility] Start: 2002 Sex Assigned At Female F [facility] Tobacco smoking status [facility] Tobacco smoking consumption unknown [facility] Healthcare Start: 05-22-2023 [facility] Start: 07-16-2023 Gender identity Not on file [facility] Start: 07-16-2023 End: 07-17-2023 Alcohol intake Lifetime non-drinker (finding) [facility] Start: 07-16-2023 History of Social function [facility] Tobacco smoking status No Smoking Status Entered [facility] Functional Status Date Assessment Result Facility 10-26-2023 Functional Status N/A [facility] Clinical Notes 07-03-2023 to 10-26-2023 Chung Yousif DO - 07/17/2023 11:10 AM Costa Kilgore LPN - 07/03/2023 1:00 PM EST Note Date & Type Note Facility 10-26-2023 Note The following Patien t Education Materials have been given to the patient: EducationMaterial [facility] 10-26-2023 Hospital Discharg e instructions Patient [...] provider. Document Revised: 01/02/2022 Document Reviewed: 01/02/2022 [employer] Patient Education 2022 [employer]. 10/26/2023 03:10:04 Vaginal Bleeding During , Second [...] help with your regular activities. Medicines Take axgd-awx-ptxnobi and prescription medicines only as told by [...] provider. Document Revised: 02/08/2021 Document Reviewed: 02/08/2021 [employer] Patient Education 2022 [employer]. 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 General instructions Take gfuw-glu-pniiokc and prescription medicines only as told by [...] care provider for managing back pain. Take magd-lzu-siroxua and prescription medicines only as told by [...] provider. Document Revised: 08/01/2021 Document Reviewed: 08/01/2021 [employer] Patient Education 2022 [employer]. Follow Up Care 10/25/2023 23:39:34 With:Chung YOUSIF Address: [address] , [place] [address] Business (1) When:11/04/2023 [facility] 10-25-2023 Evaluation + Plan note Diagnostic Tests PendingUrine Culture 10/25/23 [facility] 07-17-2023 History of Presen t illness Narrative Reason for Appointment: Patient ID: Teodoro Upton is a 23 y.o. female who presents for Routine Visit Patient presents today for Return OB appointment. Current Medications: has a current medication list which includes the following prescription(s): vlopfbgk-rwr-pc-fa and promethazine. Medical History: Active Ambulatory Problems Diagnosis Date Noted No Active Ambulatory Problems Resolved Ambulatory Problems Diagnosis Date Noted No Resolved Ambulatory Problems Past Medical History: Diagnosis Date ADD (attention deficit disorder) Asthma ([facility]) Family History Problem Relation Name [...] Problems Past Medical History: Diagnosis Date Asthma ([facility]) No family history on file. [...] raw or undercooked meat, stay away from [facility], do not change litter boxes, eat [...] Evaluation note No assessment inform ation available [facility] [employer] Work Phone: Evaluation note Diagnosis Missed menses Nausea and vomiting, unspecified vomiting type documented in this encounter [facility]* Diagnosis First trimester state, incidental Vaginal bleeding in Threatened miscarriage Threatened , unspecified as to episode of care with uncertain viability, single or unspecified fetus documented in this encounter [facility] Narrative No data available for this section [facility] Additional Instructions Please follow up as we discussed so you can have your concerns further evaluated.[facility] [employer] Work Phone: Progress note No data available for this section [facility] Discharge Instructions * Instructions* Brenda Stoner, - 07/08/[address] [facility] ED Clinic List Healthcare Providers Services Day of Week/ Hours [place] for [facility] Services [address] [facility] Pediatric Primary Care Adult Primary Care CHIEF ADMINISTRATIVE OFFICER//Specialty Clinics Friday 8:00a 4:30p [address] Adult Medicine, Pediatrics, CHIEF ADMINISTRATIVE OFFICER Friday 8:30a 4:30p [facility] Surgery [address] [facility] Friday 8:30a 11:00a [facility] [address] [facility] Adult Internal Medicine ([facility]) CHIEF ADMINISTRATIVE OFFICER Clinic Pediatric Clinic Friday, Friday, , Friday 8:00a 4:30p Friday 1:00p 4:30p Friday, Friday, 8:00a 5:00p; Friday 8:00a 12:30p Friday 1p 4p Friday, Friday, , Friday 8:30a 4:15p Friday 12:30p 4:15p Health Department [address] Pediatric Primary Care Adult Primary Care OB/ Friday, Friday 8a 12p 8a 4:45p [facility] [address] [place] [address] [place] [address] # Pre & Post Adoption Counseling Support / nutrition Care Reward Incentive Program [place] Location Fri, , Fri, Fri 10:00a 4:30p Thur 10:00a 7:30p [address] [place] Location Friday - Friday 10a 4:30p [facility] CHIEF ADMINISTRATIVE OFFICER [address] [facility] Adult Internal Medicine [address] [facility] Pediatrics [address] [facility], [address] Neuro / Headache [address] [facility] Friday 8:30a 5p [facility] [address] [facility] Fri, , , Fri 9:00a 4:30p Wed 1:00p 4:30p [facility] [address] [facility] [address] [facility] Friday 8:30a 5:00p [facility] [address] [facility] [address] Burn/Plastic, ENT, GI, Orthopedics, Surgical / Trauma, Urology, Vascular Friday 8:00 4:30p Call for an appointment [facility] [address] [facility] Adult Medicine, Eye Clinic, Dental Patient must be certified homeless Under age 18 not accepted Friday 8:00 4:30p [facility] [address] [facility] OB Friday, Friday, Friday, Friday 9a 5p 9a 6p Friday (OB only) [facility] [address] [facility] OB/ Friday 11a 7p , Fri, 9a 5p Friday 8a 4p 1st Friday 9a 1p Podiatry Clinic [address] [facility], [facility] Building [address] Friday 8:00 4:30 p Center [facility] [address] Free nurse visits [facility] programs Counseling Class Call or walk in [facility] [address] Various Clinics 8a 5:30p [facility] Family Medicine [facility] [address] [facility] [facility] Friday 8a 4:30p [facility] [address] [place], [place] [id number] [address] [place] [address] Friday 8a 4:30p Friday 8a 4:30p 8a 8p Outpatient Clinics [facility] [place] [facility] [address] [facility] Friday 9a 5p Diabetic Education Services Call for an appointment [facility] [address] [facility] Friday 8:30a 4p Dental Services [facility] [address] [facility] Must have source of income and must bring (2) recent check stubs to appointment By appointment only [facility] [address] Patient must be homeless, call for eligibility guidelines. Under age 18 NOT accepted Days and hours vary (Doors open at 8:30a day of week varies) Call for an appointment Miscellaneous Information [facility] Call for Help [phone] Call for an appointment H.E.L.P (Hospital Eligibility Link Program) toll free For financial assistance * Attachments The following attachments cannot be sent through Care Everywhere. * Bacterial Vaginosis (Belarusian) * UTI (Urinary Tract Infection): Female (Belarusian) * Vitamin D: General Info (Belarusian) documented in this encounter Assessments Diagnosis BV [...] section and content) DATE CREATED AUTHOR 07/16/2020 [facility] DATE CREATED AUTHOR AUTHOR'S ORGANIZ ATION 09/07/2022 [facility] DATE CREATED AUTHOR AUTHOR'S ORGANIZ ATION 03/13/2023 [facility] DATE CREATED AUTHOR AUTHOR'S ORGANIZ ATION 10/27/2023 Lopez Braxton [facility] DATE CREATED AUTHOR AUTHOR'S ORGANIZ ATION 10/31/2023 Lemitar Braxton [facility] DATE CREATED AUTHOR AUTHOR'S ORGANIZ ATION 01/03/2024 [facility] dical Specialists EPIC Care Teams (unrecognized sec [...] BE BASED ON THE PRIMARY CLINICAL RECORDS. [employer] provides no warranty or guarantee of the accuracy or completeness of information in this document.
== END 2024-01-08 11:07 | disposition home or self-care (01) ==
LOC: NOMS 11:07
PROVIDERS: Visit Provider Physician Assistant
DX: O36.63X0 Maternal care for excessive fetal growth, third trimester, not applicable or unspecified (principal); Z3A.37 37 weeks gestation of pregnancy
CPT/HCPCS: 76816

== ENCOUNTER 2024-01-09 07:04 | Outpatient (OUT) | payer MEDICAID, SELFPAY ==
--- OUTSIDE RECORDS SUMMARY | 2024-01-09 07:07 | XMS_ITS | CCD ---
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..] Locations R1: This test was performed at: [place], [address] [place] [address], [address] [place] [address], [facility] Comment on above: Performed By: #### 2 [id number] #### [facility] [address] [place] [address] Consent for Treatmenton 10-01 Consent for Treatment [id number] #1.00TIFF [facility] Discharge Instructionson Discharge Instructions [id number] 7#1.00TIFF [facility] Inpatient Clinical Summaryon 10-26-2023 Inpatient Clinical Summary [address] [address] Clinical Summary Person Information Name: TEODORO [facility]PT[facility] Campus[facility] Age: 23 Years : 2000 Sex: Female PCP: NONE, XXXX Marital Status: Single Phone: [phone] Race: or Ethnicity: Non- or Language: Dutch Visit Id: Visit Reason: 24 WEEKS BLEEDING Speciality: Acuity: Obs Enc Type: OB Triage Med Service: Obstetrics Arrival: 10/25/2023 23:36:04 Discharge: 10/26/2023 03:30:56 Dispo Type: Home (Routine DC) Address: [facility] [address] [facility] [id number] Provider Notes: Diagnosis: Problems Active (10/26/2023) Smoker [...] Referring Physician: Follow up: With: Address: When: [facility], [address] [place] [address] , [place] [address] [facility] (1) In 9 days 11/04/2023 Patient Education Information: and Urinary Tract Infection; Vaginal Bleeding During , Second Trimester; Back Pain in Normal [facility] Inpatient Patient Summaryon 10-26-2023 Inpatient Patient Summary [address] [address] Patient Discharge Instructions PERSON INFORMATION [...] test results: Follow up: With: Address: When: [facility], [address] [place] [address] , [place] [address] Business (1) In 9 days [...] Always wi (more content not included)... Normal [facility] Insurance Correspondenceon 0 10-26-2023 Insurance Correspondence [id number] 8#1.00TIFF Normal [facility] UA with Cult Rflxon 10-26-19 24 Bacteria Auto Ql (U) Trace Normal Trace Fish [facility] Comment on above: Performed By: #### 4 [id number] #### [facility] [address] [place] [address] Bilirubin Ql (U) Negative Normal Negative [facility] Comment on above: Performed By: #### 4 [id number] #### [facility] [address] [place] [address] Clarity (U) Turbid Abnormal Clear [facility] Comment on above: Performed By: #### 4 [id number] #### [facility] [address] [place] [address] Color (U) Yellow Normal Yellow [facility] Comment on above: Result Comment: Micr oscopic readings are only performed on those samples that meet specific criteria set forth by [facility]. Performed By: #### 4 [id number] #### [facility] [address] [place] [address] Epithelial cells.squamous Auto (Urine sed) [#/Area] 5-8 Abnormal 0-2 [facility] Comment on above: Performed By: #### 4 [id number] #### [facility] [address] [place] [address] Glucose Ql (U) Negative Normal Negative [facility] Comment on above: Performed By: #### 4 [id number] #### [facility] [address] [place] [address] Hemoglobin Auto test strip (U) [Mass/Vol] Negative Normal Negative [facility] Comment on above: Performed By: #### 4 [id number] #### [facility] [address] [place] [address] Hyaline casts LM Ql (Urine sed) 0-3 Normal 0-3 [facility] Comment on above: Performed By: #### 4 [id number] #### [facility] [address] [place] [address] Ketones Auto test strip Ql (U) Negative Normal Negative [facility] Comment on above: Performed By: #### 4 [id number] #### [facility] [address] [place] [address] Leukocyte esterase Auto test strip Ql (U) 500 Gerald/uL Abnormal Negative [facility] Comment on above: Performed By: #### 4 [id number] #### [facility] [address] [place] [address] Mucus Auto Ql (U) Trace Normal Negative [facility] Comment on above: Performed By: #### 4 [id number] #### [facility] [address] [place] [address] Nitrite Auto test strip Ql (U) Negative Normal Negative [facility] Comment on above: Performed By: #### 4 [id number] #### [facility] [address] [place] [address] pH (U) 6.0 [pH] Invalid Interpretation Code 5.0-9.0 [facility] Comment on above: Performed By: #### 4 [id number] #### [facility] [address] [place] [address] Protein Ql (U) Trace Abnormal Negative [facility] Comment on above: Performed By: #### 4 [id number] #### [facility] [address] [place] [address] RBC Ql (U) 4-20 Abnormal 0-3 [facility] Comment on above: Performed By: #### 4 [id number] #### [facility] [address] [place] [address] Specific gravity (U) [Rel density] 1.030 Invalid Interpretation Code 1.005-1.030 [facility] Comment on above: Performed By: #### 4 [id number] #### [facility] [address] [place] [address] Urobilinogen (U) [Mass/Vol] Negative Normal Negative [facility] Comment on above: Performed By: #### 4 [id number] #### [facility] [address] [place] [address] WBC Auto (Urine sed) [#/Area] 16-25 Abnormal 0-5 [facility] Comment on above: Performed By: #### 4 [id number] #### [facility] [address] [place] [address] Type of Urine collection method Clean Catch Normal [facility] Comment on above: Performed By: #### 4 [id number] #### [facility] [address] [place] [address] URINALYSISOrdered By: SYSTEM SYSTEM on 10-25-2023 Bacteria [...] that meet specific criteria set forth by [facility]. Epithelial cells.squamous Auto (Urine [...] graded/HPF Invalid Interpretation Code 0-5graded/HP F [facility] [place] Auto SS URINALYSISOrdered By: Elijah Hernandez on 10-25-2023 UA Spec Desc Clean Catch (10/25/23 11:53 PM) Normal [facility] [place]A Auto SS Urinalysis macro (dipstick) panel (U)on 07-17-2023 Bilirubin, UA Negative Negative - 4(70) +++ mg/dL [facility] Blood, UA Negative Negative - 50 William/mcL [facility] Clarity, UA Clear [facility] Color, UA Yellow [facility] Glucose, UA Negative Negative - 1999(110) ++++ mg/dL [facility] Interpretation and review of laboratory results Abnormal [facility] Ketones, UA Negative Negative - 160(16) ++++ mg/dL [facility] Leukocytes, UA Positive Negative - 500+++ Gerald/mcL [facility] Nitrite, UA Negative Negative - Positive [facility] pH, UA 7.0 5 - 9 [facility] Protein, UA Negative Negative - 1999(20) ++++ mg/dL [facility] Spec Grav, UA 1.020 1 - 1.03 [facility] Urobilinogen, UA 0.2 0.2 - 12 mg/dL [facility] HCG ( test) Ql (U)o n 07-03-2023 Interpretation and review of laboratory results Abnormal [facility] Preg Test, Ur Negative [facility] Urinalysis macro (dipstick) panel (U)on 07-03-2023 Bilirubin, UA Negative Negative - 4(70) +++ mg/dL [facility] Blood, UA Negative Negative - 50 William/mcL [facility] Clarity, UA Clear [facility] Color, UA Yellow [facility] Glucose, UA Negative Negative - 1999(110) ++++ mg/dL [facility] Interpretation and review of laboratory results Normal [facility] Ketones, UA Negative Negative - 160(16) ++++ mg/dL [facility] Leukocytes, UA Negative Negative - 500+++ Gerald/mcL [facility] Nitrite, UA Negative Negative - Positive [facility] pH, UA 5.5 5 - 9 [facility] Protein, UA Negative Negative - 1999(20) ++++ mg/dL [facility] Spec Grav, UA 1.010 1 - 1.03 [facility] Urobilinogen, UA 1.0 0.2 - 12 mg/dL [facility] XR FOOT RT MIN 3 [...] PADDY SAPP Date: 2022-08-30 14:42 Normal [facility] CBC AUTO DIFFon 06-28-2022 BASO # 0.0 103/ul Normal 0.0-0.1 [facility] Comment on above: Performed By: #### C BC #### [facility] [address] [place] [address] Dr. Jerald Poon Basophils/100 WBC (Bld) 0.3 % Normal 0.2-2.0 [facility] Comment on above: Performed By: #### C BC #### [facility] [address] [address] [address] Jerald Poon EO # 0.1 103/ul Normal 0.0-0.7 [facility] Comment on above: Performed By: #### C BC #### [facility] [address] [place] [address] Dr. Jerald Poon Eosinophils/100 WBC (Bld) 1.1 % Normal 0.9-7.0 [facility] Comment on above: Performed By: #### C BC #### [facility] [address] [place] [address] Dr. Jerald Poon Erythrocyte distribution width (RBC) [Ratio] 14.5 % Normal 11.0-15.0 [facility] Comment on above: Performed By: #### C BC #### [facility] [address] [place] [address] Dr. Jerald Poon Hematocrit (Bld) [Volume fraction] 36.7 % Normal 36.0-48.0 [facility] Comment on above: Performed By: #### C BC #### [facility] [address] [place] [address] Dr. Jerald Poon Hemoglobin (Bld) [Mass/Vol] 13.0 g/dL Normal 12.0-16.0 [facility] Comment on above: Performed By: #### C BC #### [facility] [address] [place] [address] Dr. Jerald Poon IG # 0.04 10e3/ul Critically high 0.00-0.03 [facility] Comment on above: Performed By: #### C BC #### [facility] [address] [place] [address] Dr. Jerald Poon IG % 0.3 % Normal 0.0-0.5 [facility] Comment on above: Performed By: #### C BC #### [facility] [address] [place] [address] Dr. Jerald Poon LYMPH # 3.0 103/ul Normal 1.2-3.8 [facility] Comment on above: Performed By: #### C BC #### [facility] [address] [place] [address] Dr. Jerald Poon Lymphocytes/100 WBC (Bld) 26.2 % Normal 20.5-60.0 [facility] Comment on above: Performed By: #### C BC #### [facility] [address] [place] [address] Dr. Jerald Poon MANUAL DIFF REQ NO Normal [facility] Comment on above: Performed By: #### C BC #### [facility] [address] [place] [address] Dr. Jerald Poon MCH (RBC) [Entitic mass] 27.1 pg Normal 26.7-34.0 [facility] Comment on above: Performed By: #### C BC #### [facility] [address] [address] [address] Jerald Poon MCHC (RBC) [Mass/Vol] 35.4 g/dL Critically high 29.9-35.2 [facility] Comment on above: Performed By: #### C BC #### [facility] [address] [address] [address] Jerald Poon MCV (RBC) [Entitic vol] 76.6 fL Critically low 81.0-99.0 [facility] Comment on above: Performed By: #### C BC #### [facility] [address] [place] [address] Dr. Jerald Poon MONO # 0.8 103/ul Normal 0.3-0.8 [facility] Comment on above: Performed By: #### C BC #### [facility] [address] [place] [address] Dr. Jerald Poon Monocytes/100 WBC (Bld) 7.0 % Normal 1.7-12.0 [facility] Comment on above: Performed By: #### C BC #### [facility] [address] [place] [address] Dr. Jerald Poon NEUT # 7.5 103/ul Critically high 1.4-6.5 [facility] Comment on above: Performed By: #### C BC #### [facility] [address] [place] [address] Dr. Jerald Poon Neutrophils/100 WBC (Bld) 65.1 % Normal 43.0-75.0 [facility] Comment on above: Performed By: #### C BC #### [facility] [address] [address] [address] Jerald Poon Platelet mean volume (Bld) [Entitic vol] 10.0 fL Normal 9.5-13.5 [facility] Comment on above: Performed By: #### C BC #### [facility] [address] [place] [address] Dr. Jerald Poon PLT 387 103/ul Normal 150-450 [facility] Comment on above: Performed By: #### C BC #### [facility] [address] [place] [address] Dr. Jerald Poon RBC 4.79 106/ul Normal 4.20-5.40 [facility] Comment on above: Performed By: #### C BC #### [facility] [address] [place] [address] Dr. Jerald Poon WBC 11.6 103/ul Critically high 4.0-11.0 [facility] Comment on above: Performed By: #### C BC #### [facility] [address] [place] [address] Dr. Jerald Poon CULTURE URINEon 06-28-2022 CULTURE URINE Culture Observations: LIGHT GROWTH OF MIXED GENITAL ZACARIAS. NO POTENTIAL PATHOGENS SEEN. Normal [facility] Comment on above: Performed By: #### U RCX #### [facility] [address] [place] [address] Dr. Jerald Poon ER URINE PROFILEon 3 Bilirubin Ql (U) Negative Normal NEGATIVE [facility] Comment on above: Performed By: #### U MICRO, ERUR #### [facility] [address] [place] [address] Dr. Jerald Poon Clarity (U) CLEAR Normal CLEAR [facility] Comment on above: Performed By: #### U MICRO, ERUR #### [facility] [address] [place] [address] Dr. Jerald Poon Color (U) YELLOW Normal YELLOW [facility] Comment on above: Performed By: #### U MICRO, ERUR #### [facility] [address] [place] [address] Dr. Jerald CEBALLOS A micrscopic examination will be performed if indicated. Normal [facility] Comment on above: Performed By: #### U MICRO, ERUR #### [facility] [address] [place] [address] Dr. Jerald Poon Glucose Ql (U) Negative Normal NEGATIVE [facility] Comment on above: Performed By: #### U MICRO, ERUR #### [facility] [address] [address] [address] Jerald Poon Hemoglobin Ql (U) Negative Normal NEGATIVE [facility] Comment on above: Performed By: #### U MICRO, ERUR #### [facility] [address] [address] [address] Jerald Poon Ketones Ql (U) 40 mg/dl Abnormal NEGATIVE [facility] Comment on above: Performed By: #### U MICRO, ERUR #### [facility] [address] [address] [address] Jerald Poon LEUKOCYTES TRACE Abnormal NEGATIVE [facility] Comment on above: Performed By: #### U MICRO, ERUR #### [facility] [address] [place] [address] Dr. Jerald Poon Nitrite Ql (U) Negative Normal NEGATIVE [facility] Comment on above: Performed By: #### U MICRO, ERUR #### [facility] [address] [place] [address] Dr. Jerald Poon pH (U) 6.0 [pH] Normal 5-9 [facility] Comment on above: Performed By: #### U MICRO, ERUR #### [facility] [address] [place] [address] Dr. Jerald Poon SPEC GRAVITY >=1.030 Abnormal 1.005-<=1.02 5 [facility] Comment on above: Performed By: #### U MICRO, ERUR #### [facility] [address] [place] [address] Dr. Jerald Poon UA PROTEIN Negative Normal NEGATIVE/ TRACE [facility] Comment on above: Performed By: #### U MICRO, ERUR #### [facility] [address] [place] [address] Dr. Jerald Poon UR MICRO IND INDICATED Normal [facility] Comment on above: Performed By: #### U MICRO, ERUR #### [facility] [address] [place] [address] Dr. Jerald Poon Urobilinogen Qn (U) 0.2 {Lyly'U}/dL Normal 0.2 - 1. 0 [facility] Comment on above: Performed By: #### U MICRO, ERUR #### [facility] [address] [place] [address] Dr. Jerald Poon PREG QUANT HCGon 06-28-2022 HCG QUANT <1 Normal [facility] Comment on above: Performed By: #### P REGQNT #### [facility] [address] [place] [address] Dr. Jerald Poon HCG RANGE SEE BELOW Normal [facility] Comment on above: Result Comment: 5-50 0.2-1 WEEK 50-500 1-2 WEEKS 100-5,000 2-3 WEEKS 500-10,000 3-4 WEEKS 1,000-50,000 4-5 WEEKS 10,000-100,000 5-6 WEEKS 15,000-200,000 6-8 WEEKS 10,000-100,000 2-3 MONTHS Performed By: #### P REGQNT #### [facility] [address] [place] [address] Dr. Jerald Poon PROF CHEM 8 (BAS METB)on Anion gap [Moles/Vol] 14.0 mmol/L Normal [facility] Comment on above: Performed By: #### C BC #### [facility] [address] [place] [address] Dr. Jerald Poon Calcium [Mass/Vol] 9.6 mg/dL Normal 8.5-10.1 [place] Comment on above: Performed By: #### C BC #### [facility] [address] [place] [address] Dr. Jerald Poon Chloride [Moles/Vol] 101 mmol/L Normal 98-107 [facility] Comment on above: Performed By: #### C BC #### [facility] [address] [place] [address] Dr. Jerald Poon CO2 [Moles/Vol] 25.4 mmol/L Normal 21.0-32.0 [facility] Comment on above: Performed By: #### C BC #### [facility] [address] [place] [address] Dr. Jerald Poon Creatinine [Mass/Vol] 0.92 mg/dL Normal 0.55-1.02 [facility] Comment on above: Performed By: #### C BC #### [facility] [address] [place] [address] Dr. Jerald Poon EGFR-AF TRISTANIAN >60 Normal >=60 [facility] Comment on above: Performed By: #### C BC #### [facility] [address] [address] [address] Jerald Poon EGFR-NON AF TRISTANIAN >60 Normal >=60 [facility] Comment on above: Performed By: #### C BC #### [facility] [address] [place] [address] Dr. Jerald Poon Glucose [Mass/Vol] 101 mg/dL Normal 74-106 [place] Comment on above: Performed By: #### C BC #### [facility] [address] [place] [address] Dr. Jerald Poon Potassium [Moles/Vol] 3.4 mmol/L Critically low 3.5-5.1 [facility] Comment on above: Performed By: #### C BC #### [facility] [address] [place] [address] Dr. Jerald Poon Sodium [Moles/Vol] 137 mmol/L Normal 136-145 [facility] Comment on above: Performed By: #### C BC #### [facility] [address] [place] [address] Dr. Jerald Poon Urea nitrogen [Mass/Vol] 11.0 mg/dL Normal 7.0-18.0 [facility] Comment on above: Performed By: #### C BC #### [facility] [address] [place] [address] Dr. Jerald Poon Urea nitrogen/Creatinine [Mass ratio] 12.0 mg/mg Normal [facility] Comment on above: Performed By: #### C BC #### [facility] [address] [place] [address] Dr. Jerald Poon TSHon 01-27-2023 TSH 1.319 uIU/mL Normal 0.358-3.740 [facility] Comment on above: Performed By: #### C BC #### [facility] [address] [place] [address] Dr. Jerald Poon URINE MICROSCOPIC ONLYon BACTERIA SMALL Abnormal NONE SEEN [facility] Comment on above: Performed By: #### U MICRO, ERUR #### [facility] [address] [place] [address] Dr. Jerald Poon Bacteria identified Cx Nom (U) INDICATED Normal [facility] Comment on above: Performed By: #### U MICRO, ERUR #### [facility] [address] [place] [address] Dr. Jerald Poon CAST NONE SEEN Normal NONE SEEN [facility] Comment on above: Performed By: #### U MICRO, ERUR #### [facility] [address] [place] [address] Dr. Jerald Poon Crystals LM Nom (Urine sed) NONE SEEN Normal NONE SEEN [facility] Comment on above: Performed By: #### U MICRO, ERUR #### [facility] [address] [place] [address] Dr. Jerald Poon Epithelial cells LM Ql (Urine sed) FEW Abnormal NONE SEEN /RARE [facility] Comment on above: Performed By: #### U MICRO, ERUR #### [facility] [address] [place] [address] Dr. eJrald Poon MUCOUS NONE SEEN Normal NONE SEEN [facility] Comment on above: Performed By: #### U MICRO, ERUR #### [facility] [address] [place] [address] Dr. Jerald Poon RBC NONE SEEN Abnormal 0-2 [facility] Comment on above: Performed By: #### U MICRO, ERUR #### [facility] [address] [place] [address] Dr. Jerald Poon WBC 2-5 Abnormal NONE SEEN [facility] Comment on above: Performed By: #### U MICRO, ERUR #### [facility] [address] [place] [address] Dr. Jerald oPon CBC AUTO DIFFon 04-01-2022 BASO # 0.0 103/ul Normal 0.0-0.1 [facility] Comment on above: Performed By: #### C BC #### [facility] [address] [place] [address] Dr. Jerald Poon Basophils/100 WBC (Bld) 0.5 % Normal 0.2-2.0 [facility] Comment on above: Performed By: #### C BC #### [facility] [address] [place] [address] Dr. Jerald Poon EO # 0.1 103/ul Normal 0.0-0.7 [facility] Comment on above: Performed By: #### C BC #### [facility] [address] [place] [address] Dr. Jerald Poon Eosinophils/100 WBC (Bld) 1.7 % Normal 0.9-7.0 [facility] Comment on above: Performed By: #### C BC #### [facility] [address] [place] [address] Dr. Jerald Poon Erythrocyte distribution width (RBC) [Ratio] 14.2 % Normal 11.0-15.0 [facility] Comment on above: Performed By: #### C BC #### [facility] [address] [place] [address] Dr. Jerald Poon Hematocrit (Bld) [Volume fraction] 36.7 % Normal 36.0-48.0 [facility] Comment on above: Performed By: #### C BC #### [facility] [address] [place] [address] Dr. Jerald Poon Hemoglobin (Bld) [Mass/Vol] 12.1 g/dL Normal 12.0-16.0 [facility] Comment on above: Performed By: #### C BC #### [facility] [address] [place] [address] Dr. Jerald Poon IG # 0.01 10e3/ul Normal 0.00-0.03 [facility] Comment on above: Performed By: #### C BC #### [facility] [address] [place] [address] Dr. Jerald Poon IG % 0.1 % Normal 0.0-0.5 [facility] Comment on above: Performed By: #### C BC #### [facility] [address] [place] [address] Dr. Jerald Poon LYMPH # 2.3 103/ul Normal 1.2-3.8 [facility] Comment on above: Performed By: #### C BC #### [facility] [address] [place] [address] Dr. Jerald Poon Lymphocytes/100 WBC (Bld) 30.8 % Normal 20.5-60.0 [facility] Comment on above: Performed By: #### C BC #### [facility] [address] [place] [address] Dr. Jerald Poon MANUAL DIFF REQ NO Normal [facility] Comment on above: Performed By: #### C BC #### [facility] [address] [place] [address] Dr. Jerald Poon MCH (RBC) [Entitic mass] 27.3 pg Normal 26.7-34.0 [facility] Comment on above: Performed By: #### C BC #### [facility] [address] [place] [address] Dr. Jerald Poon MCHC (RBC) [Mass/Vol] 33.0 g/dL Normal 29.9-35.2 [facility] Comment on above: Performed By: #### C BC #### [facility] [address] [place] [address] Dr. Jerald Poon MCV (RBC) [Entitic vol] 82.7 fL Normal 81.0-99.0 [facility] Comment on above: Performed By: #### C BC #### [facility] [address] [place] [address] Dr. Jerald Poon MONO # 0.8 103/ul Normal 0.3-0.8 [facility] Comment on above: Performed By: #### C BC #### [facility] [address] [place] [address] Dr. Jerald Poon Monocytes/100 WBC (Bld) 10.6 % Normal 1.7-12.0 [facility] Comment on above: Performed By: #### C BC #### [facility] [address] [place] [address] Dr. Jerald Poon NEUT # 4.2 103/ul Normal 1.4-6.5 [facility] Comment on above: Performed By: #### C BC #### [facility] [address] [place] [address] Dr. Jerald Poon Neutrophils/100 WBC (Bld) 56.3 % Normal 43.0-75.0 [facility] Comment on above: Performed By: #### C BC #### [facility] [address] [place] [address] Dr. Jerald Poon Platelet mean volume (Bld) [Entitic vol] 10.2 fL Normal 9.5-13.5 [facility] Comment on above: Performed By: #### C BC #### [facility] [address] [place] [address] Dr. Jerald Poon PLT 375 103/ul Normal 150-450 [facility] Comment on above: Performed By: #### C BC #### [facility] [address] [place] [address] Dr. Jerald Poon RBC 4.44 106/ul Normal 4.20-5.40 [facility] Comment on above: Performed By: #### C BC #### [facility] [address] [place] [address] Dr. Jerald Poon WBC 7.5 103/ul Normal 4.0-11.0 [facility] Comment on above: Performed By: #### C BC #### [facility] [address] [place] [address] Dr. Jerald Poon ER URINE PROFILEon 2 Bilirubin Ql (U) Negative Normal NEGATIVE [facility] Comment on above: Performed By: #### C BC #### [facility] [address] [place] [address] Dr. Jerald Poon Clarity (U) CLEAR Normal CLEAR [facility] Comment on above: Performed By: #### C BC #### [facility] [address] [place] [address] Dr. Jerald Poon Color (U) YELLOW Normal YELLOW [facility] Comment on above: Performed By: #### C BC #### [facility] [address] [place] [address] Dr. Jerald CEBALLOS A micrscopic examination will be performed if indicated. Normal [facility] Comment on above: Performed By: #### C BC #### [facility] [address] [place] [address] Dr. Jerald Poon Glucose Ql (U) Negative Normal NEGATIVE [facility] Comment on above: Performed By: #### C BC #### [facility] [address] [place] [address] Dr. Jerald Poon Hemoglobin Ql (U) Negative Normal NEGATIVE [facility] Comment on above: Performed By: #### C BC #### [facility] [address] [place] [address] Dr. Jerald Poon Ketones Ql (U) Negative Normal NEGATIVE [facility] Comment on above: Performed By: #### C BC #### [facility] [address] [place] [address] Dr. Jerald Poon LEUKOCYTES Negative Normal NEGATIVE [facility] Comment on above: Performed By: #### C BC #### [facility] [address] [place] [address] Dr. Jerald Poon Nitrite Ql (U) Negative Normal NEGATIVE [facility] Comment on above: Performed By: #### C BC #### [facility] [address] [place] [address] Dr. Jerald Poon pH (U) 7.0 [pH] Normal 5-9 [facility] Comment on above: Performed By: #### C BC #### [facility] [address] [place] [address] Dr. Jerald Poon SPEC GRAVITY 1.025 Normal 1.005-<=1.02 5 [facility] Comment on above: Performed By: #### C BC #### [facility] [address] [place] [address] Dr. Jerald Poon UA PROTEIN Negative Normal NEGATIVE/ TRACE [facility] Comment on above: Performed By: #### C BC #### [facility] [address] [place] [address] Dr. Jerald Poon UR MICRO IND NOT INDICATED Normal [facility] Comment on above: Performed By: #### C BC #### [facility] [address] [place] [address] Dr. Jerald Poon Urobilinogen Qn (U) 1.0 {Lyly'U}/dL Normal 0.2 - 1. 0 [facility] Comment on above: Performed By: #### C BC #### [facility] [address] [place] [address] Dr. Jerald Poon PREG QUANT HCGon 04-01-2022 HCG QUANT 1 mIU/mL Normal [facility] Comment on above: Performed By: #### P REGQNT #### [facility] [address] [place] [address] Dr. Jerald Poon HCG RANGE SEE BELOW Normal [facility] Comment on above: Result Comment: 5-50 0.2-1 WEEK 50-500 1-2 WEEKS 100-5,000 2-3 WEEKS 500-10,000 3-4 WEEKS 1,000-50,000 4-5 WEEKS 10,000-100,000 5-6 WEEKS 15,000-200,000 6-8 WEEKS 10,000-100,000 2-3 MONTHS Performed By: #### P REGQNT #### [facility] [address] [place] [address] Dr. Jerald Poon PROF 14(COMP METB)on 022 Albumin [Mass/Vol] 3.6 g/dL Normal 3.4-5.0 [place] Comment on above: Performed By: #### C MP #### [facility] [address] [place] [address] Dr. Jerald Poon Albumin/Globulin [Mass ratio] 0.8 {ratio} Normal [facility] Comment on above: Performed By: #### C MP #### [facility] [address] [place] [address] Dr. Jerald Poon ALP [Catalytic activity/Vol] 65 U/L Normal 46-116 [facility] Comment on above: Performed By: #### C MP #### [facility] [address] [place] [address] Dr. Jerald Poon ALT [Catalytic activity/Vol] 22 U/L Normal 14-59 [facility] Comment on above: Performed By: #### C MP #### [facility] [address] [address] [address] Jerald Poon Anion gap [Moles/Vol] 10.3 mmol/L Normal [facility] Comment on above: Performed By: #### C MP #### [facility] [address] [place] [address] Dr. Jerald Poon AST [Catalytic activity/Vol] 14 U/L Critically low 15-37 [facility] Comment on above: Performed By: #### C MP #### [facility] [address] [place] [address] Dr. Jerald Poon Bilirubin [Mass/Vol] 0.1 mg/dL Critically low 0.2-1.0 [facility] Comment on above: Performed By: #### C MP #### [facility] [address] [place] [address] Dr. Jerald Poon Calcium [Mass/Vol] 8.6 mg/dL Normal 8.5-10.1 [place] Comment on above: Performed By: #### C MP #### [facility] [address] [place] [address] Dr. Jerald Poon Chloride [Moles/Vol] 104 mmol/L Normal 98-107 [facility] Comment on above: Performed By: #### C MP #### [facility] [address] [address] [address] Jerald Poon CO2 [Moles/Vol] 28.1 mmol/L Normal 21.0-32.0 [facility] Comment on above: Performed By: #### C MP #### [facility] [address] [address] [address] Jerald Poon Creatinine [Mass/Vol] 0.99 mg/dL Normal 0.55-1.02 [facility] Comment on above: Performed By: #### C MP #### [facility] [address] [address] [address] Jerald Poon EGFR-AF TRISTANIAN >60 Normal >=60 [facility] Comment on above: Performed By: #### C MP #### [facility] [address] [address] [address] Jerald Poon EGFR-NON AF TRISTANIAN >60 Normal >=60 [facility] Comment on above: Performed By: #### C MP #### [facility] [address] [address] [address] Jerald Poon Globulin (S) [Mass/Vol] 4.5 g/dL Normal [facility] Comment on above: Performed By: #### C MP #### [facility] [address] [place] [address] Dr. Jerald Poon Glucose [Mass/Vol] 94 mg/dL Normal 74-106 [place] Comment on above: Performed By: #### C MP #### [facility] [address] [address] [address] Jerald Poon Potassium [Moles/Vol] 3.4 mmol/L Critically low 3.5-5.1 [facility] Comment on above: Performed By: #### C MP #### [facility] [address] [place] [address] Dr. Jerald Poon Protein [Mass/Vol] 8.1 g/dL Normal 6.4-8.2 [facility] Comment on above: Performed By: #### C MP #### [facility] [address] [address] [address] Jerald Poon Sodium [Moles/Vol] 139 mmol/L Normal 136-145 [facility] Comment on above: Performed By: #### C MP #### [facility] [address] [address] [address] Jerald Poon Urea nitrogen [Mass/Vol] 8.0 mg/dL Normal 7.0-18.0 [facility] Comment on above: Performed By: #### C MP #### [facility] [address] [place], [place] [address] Dr. Jerald Poon Urea nitrogen/Creatinine [Mass ratio] 8.1 mg/mg Normal [facility] Comment on above: Performed By: #### C MP #### [facility] [address] [place], [place] [address] Dr. Jerald Poon US PELVIS TRANSVAGon 022 [...] LUH MANRIQUE Date: 2022-04-01 21:55 Normal [facility] Automated erythrocytes count in urine sediment (number/area)Ordered By: Anders Sesay on 10-19-2021 RBC Auto (Urine sed) [#/Area] 1-2 [HPF] [facility] Automated leukocytes count i n urine sediment (number/area)Ordered By: Anders Sesay on 10-19-2021 WBC Auto (Urine sed) [#/Area] 3-4 [HPF] [facility] Basophils Auto (Bld) [#/Vol] Ordered By: Anders Sesay on 10-19-2021 Basophils (Bld) [#/Vol] 0.1 10*3/uL 0.0-0.2 [facility] Basophils/100 WBC Auto (Bld) Ordered By: Anders Sesay on 10-19-2021 Basophils/100 WBC (Bld) 0.6 % [facility] Bilirubin Test strip Ql (U)O rdered By: Anders Sesay on 10-19-2021 Bilirubin Ql (U) Negative Negative [facility] Blood hemoglobin measurement (mass/volume)Ordered By: Anders Sesay on 10-19-2021 Hemoglobin (Bld) [Mass/Vol] 13.2 g/dL 11.8-15.4 [facility] Blood leukocytes automated c ount (number/volume)Ordered By: Anders Sesay on 10-19-2021 WBC (Bld) [#/Vol] 9.1 10*3/uL 4.5-11.0 [facility] Body fluid albumin measureme nt (mass/volume)Ordered By: Anders Sesay on 10-19-2021 Albumin (Body fld) [Mass/Vol] 3.8 g/dL 3.2-5.5 [facility] Color Auto (U)Ordered By: Jason Sesay on 10-19-2021 Color (U) Yellow Yellow [facility] Creatinine and Glomerular fi ltration rate.predicted panel (S/P/Bld)Ordered By: Anders Sesay on 10-19-2021 Creatinine [Mass/Vol] 0.87 mg/dL 0.44-1.03 [facility] Eosinophils Auto (Bld) [#/Vo l]Ordered By: Anders Sesay on 10-19-2021 Eosinophils (Bld) [#/Vol] 0.1 10*3/uL 0.0-0.45 [facility] Eosinophils/100 WBC Auto (Bl d)Ordered By: Anders Sesay on 10-19-2021 Eosinophils/100 WBC (Bld) 0.9 % [facility] Erythrocyte distribution wid th Auto (RBC) [Ratio]Ordered By: Anders Sesay on 10-19-2021 Erythrocyte distribution width (RBC) [Ratio] 16.4 % 11.9-15.3 [facility] Estimated glomerular filtrat ion rate (GFR) non- AmericanOrdered By: Anders Sesay on 10-19-2021 GFR/1.73 sq M.predicted among non-blacks MDRD (S/P/Bld) [Vol rate/Area] > 60 mL/Min [facility] Globulin Calc (S) [Mass/Vol] Ordered By: Anders Sesay on 10-19-2021 Globulin (S) [Mass/Vol] 4.3 g/dL [facility] HCG ( test) IA.rapi d Ql (U)Ordered By: Anders Sesay on 10-19-2021 HCG ( test) Ql (U) Negative [facility] Hematocrit Auto (Bld) [Volum e fraction]Ordered By: Anders Sesay on 10-19-2021 Hematocrit (Bld) [Volume fraction] 40.2 % 34.0-46.4 [facility] Ketones Auto test strip (U) [Mass/Vol]Ordered By: Anders Sesay on 10-19-2021 Ketones (U) [Mass/Vol] Negative Negative [facility] - Hematology and Cell countsOrdered By: Anders Sesay on 10-19-2021 Nucleated RBC/100 WBC (Bld) [Ratio] 0.2 % 0-0.5 [facility] - UrinalysisOrder ed By: Anders Sesay on 10-19-2021 Hyaline casts LM Ql (Urine sed) 0-8 [LPF] [facility] Lymphocytes Auto (Bld) [#/Vo l]Ordered By: Anders Sesay on 10-19-2021 Lymphocytes (Bld) [#/Vol] 2.4 10*3/uL 1.00-4.8 [facility] Lymphocytes/100 WBC Auto (Bl d)Ordered By: Anders Sesay on 10-19-2021 Lymphocytes/100 WBC (Bld) 26.7 % [facility] MCH Auto (RBC) [Entitic mass ]Ordered By: Anders Sesay on 10-19-2021 MCH (RBC) [Entitic mass] 26.3 pg 24.7-34.3 [facility] MCHC Auto (RBC) [Mass/Vol]Or dered By: Anders Sesay on 10-19-2021 MCHC (RBC) [Mass/Vol] 32.9 g/dL 32.0-35.0 [facility] MCV Auto (RBC) [Entitic vol] Ordered By: Anders Sesay on 10-19-2021 MCV (RBC) [Entitic vol] 80.1 fL 80-100 [facility] Monocytes Auto (Bld) [#/Vol] Ordered By: Anders Sesay on 10-19-2021 Monocytes (Bld) [#/Vol] 0.7 10*3/uL 0.0-0.8 [facility] Monocytes/100 WBC Auto (Bld) Ordered By: Anders Sesay on 10-19-2021 Monocytes/100 WBC (Bld) 7.6 % [facility] Neutrophils Auto (Bld) [#/Vo l]Ordered By: Anders Sesay on 10-19-2021 Neutrophils (Bld) [#/Vol] 5.8 10*3/uL 1.8-7.7 [facility] Neutrophils/100 WBC Auto (Bl d)Ordered By: Anders Sesay on 10-19-2021 Neutrophils/100 WBC (Bld) 64.2 % [facility] Nitrite Test strip Ql (U)Ord ered By: Anders Sesay on 10-19-2021 Nitrite Ql (U) Negative Negative [facility] No Panel InformationOrdered By: Anders Sesay on 10-19-2021 Estimated GFR () > 60 mL/Min [facility] Comment on above: GFR estimated refere nce range: According to KDOQI guidelines, <60 ml/min/1.73m2 is sufficient to diagnose a patient with chronic kidney disease. Pharmacy Creatinine Clearance (Chem 147.41 [facility] Platelet mean volume Auto (B ld) [Entitic vol]Ordered By: Anders Sesay on 10-19-2021 Platelet mean volume (Bld) [Entitic vol] 8.6 fL 6.3-10.7 [facility] Platelets Auto (Bld) [#/Vol] Ordered By: Anders Sesay on 10-19-2021 Platelets (Bld) [#/Vol] 395 10*3/uL 150-450 [facility] Protein Auto test strip (U) [Mass/Vol]Ordered By: Anders Sesay on 10-19-2021 Protein (U) [Mass/Vol] Negative Negative [facility] Protein [Mass/volume] in Ser um or PlasmaOrdered By: Anders Sesay on 10-19-2021 Protein [Mass/Vol] 8.1 g/dL 6.1-7.9 [facility] RBC Auto (Bld) [#/Vol]Ordere d By: Anders Sesay on 10-19-2021 RBC (Bld) [#/Vol] 5.02 10*6/uL 3.60-5.00 [facility] Serum or plasma alanine ayoub otransferase measurement without P-5'-P (enzymatic activiOrdered By: Anders Sesay on 10-19-2021 ALT No additional P-5'-P [Catalytic activity/Vol] 20 U/L 10-60 [facility] Serum or plasma albumin/glob ulin mass ratioOrdered By: Anders Sesay on 10-19-2021 Albumin/Globulin [Mass ratio] 0.9 {ratio} [facility] Serum or plasma alkaline cosmo sphatase measurement (enzymatic activity/volume)Ordered By: Anders Sesay on 10-19-2021 ALP [Catalytic activity/Vol] 55 U/L 32-92 [facility] Serum or plasma aspartate am inotransferase measurement (enzymatic activity/volume)Ordered By: Anders Sesay on 10-19-2021 AST [Catalytic activity/Vol] 17 U/L 10-42 [facility] Serum or plasma calcium joann urement (mass/volume)Ordered By: Anders Sesay on 10-19-2021 Calcium [Mass/Vol] 9.1 mg/dL 8.2-10.2 [facility] Serum or plasma chloride adan surement (moles/volume)Ordered By: Anders Sesay on 10-19-2021 Chloride [Moles/Vol] 103 mmol/L 95-114 [place] Serum or plasma glucose joann urement (mass/volume)Ordered By: Anders Sesay on 10-19-2021 Glucose [Mass/Vol] 105 mg/dL 70-100 [facility] Comment on above: ADA recommended refe rence range Random Glucose Reference Range is dependent on time and content of last meal. Glucose of more than 200 mg/dL in a nonstressed, ambulatory subject supports the diagnosis of Diabetes Mellitus. Serum or plasma potassium me asurement (moles/volume)Ordered By: Anders Sesay on 10-19-2021 Potassium [Moles/Vol] 3.7 mmol/L 3.5-5.1 [facility] Serum or plasma sodium measu rement (moles/volume)Ordered By: Anders Sesay on 10-19-2021 Sodium [Moles/Vol] 137 mmol/L 136-146 [facility] Serum or plasma total biliru bin measurement (mass/volume)Ordered By: Anders Sesay on 10-19-2021 Bilirubin [Mass/Vol] 0.3 mg/dL 0.3-1.2 [place] Serum or plasma total carbon dioxide measurement (moles/volume)Ordered By: Anders Sesay on 10-19-2021 CO2 [Moles/Vol] 24.2 mmol/L 22.0-30.0 [facility] Serum or plasma urea nitroge n measurement (mass/volume)Ordered By: Anders Sesay on 10-19-2021 Urea nitrogen [Mass/Vol] 7 mg/dL 9-23 [facility] Specific gravity Auto test s trip (U) [Rel density]Ordered By: Anders Sesay on 10-19-2021 Specific gravity (U) [Rel density] 1.014 1.001-1.030 [facility] Squamous epithelial cells de tection in urine sediment by light microscopyOrdered By: Anders Sesay on 10-19-2021 Epithelial cells.squamous LM Ql (Urine sed) 3-4 [HPF] [facility] Urine bacteria detection by automated methodOrdered By: Anders Sesay on 10-19-2021 Bacteria Auto Ql (U) 1+ None Seen [place] Urine clarity by refractomet ry automatedOrdered By: Anders Sesay on 10-19-2021 Clarity Refractometry automated (U) Clear Clear [facility] Urine glucose measurement by automated test strip (mass/volume)Ordered By: Anders Sesay on 10-19-2021 Glucose Auto test strip (U) [Mass/Vol] Normal mg/dL Normal [facility] Urine hemoglobin detection b y automated test stripOrdered By: Anders Sesay on 10-19-2021 Hemoglobin Auto test strip Ql (U) Negative Negative [facility] Urine leukocyte esterase det ection by automated test stripOrdered By: Anders Sesay on 10-19-2021 Leukocyte esterase Auto test strip Ql (U) 1+ Negative [facility] Urobilinogen Auto test strip (U) [Mass/Vol]Ordered By: Anders Sesay on 10-19-2021 Urobilinogen (U) [Mass/Vol] Normal mg/dL Normal [facility] pH Auto test strip (U)Ordere d By: Anders Sesay on 10-19-2021 pH (U) 5.5 [pH] 5.0-9.0 [facility] US DUP ABD PEL RETRO SCROT [...] MD 07/14/20 Edited Result - FINAL Normal [facility] US NON OB TRANSVAGINALon US [...] MD 07/14/20 Edited Result - FINAL Normal [facility] Chlamydia/GC,DNA Ampon 07-10 Chlamydia Probe Negative Normal NEG [facility] Comment on above: Result Comment: [...] Performed By: #### U HCG, UAMIC #### [facility] [address] [place], [place] [id number] Phone Engineer: Campos Avilez MD Gonorrhea Probe Negative Normal NEG [facility] Comment on above: Result Comment: [...] Performed By: #### U HCG, UAMIC #### [facility] [address] [place], [place] [id number] Phone Engineer: Campos Avilez MD Cult,Urineon 07-09-2020 Cult,Urine Specimen Description .CLEAN CATCH URINE Special Requests NOT REPORTED Culture ESCHERICHIA COLI >[id number] CFU/ML Report Status FINAL 07/09/2020 SUSCEPTIBILITY Organism [...] <=20 SUSCEPTIBLE Piperacillin/Tazobac her <=4 SUSCEPTIBLE Normal [facility] Comment on above: Performed By: #### U HCG, UAMIC #### [place] [address] Phone Engineer: Campos Avilez MD ABO/Rh(D)on 07-08-2020 ABO/Rh(D) Positive Normal [facility] Comment on above: Performed By: #### A [facility] #### [place] [address] Phone Engineer: Campos Avilez MD CBC with Diffon 07-08-2020 Abs. Basophil 0.04 k/uL Normal 0.00-0.20 [facility] Comment on above: Performed By: #### C P, CDP, COSMO, BHCG, MG, VD25, LIP #### [place] [address] Phone Engineer: Campos Avilez MD Abs.Imm.Granulocyte 0.04 k/uL Normal 0.00-0.30 [facility] Comment on above: Performed By: #### C P, CDP, COSMO, BHCG, MG, VD25, LIP #### [facility] [address] [place] [address] Phone Engineer: Campos Avilez MD Abs.Neutrophil (Seg) 8.16 k/uL High 1.80-8.00 [facility] Comment on above: Performed By: #### C P, CDP, COSMO, BHCG, MG, VD25, LIP #### [address] [address] Phone Engineer: Campos Avilez MD Basophils/100 WBC (Bld) 0 % Normal 0-2 [facility] Comment on above: Performed By: #### C P, CDP, COSMO, BHCG, MG, VD25, LIP #### [address] [address] Phone Engineer: Campos Avilez MD Eosinophils (Bld) [#/Vol] 0.10 10*3/uL Normal 0.00-0.44 [facility] Comment on above: Performed By: #### C P, CDP, COSMO, BHCG, MG, VD25, LIP #### [address] [address] Phone Engineer: Campos Avilez MD Eosinophils/100 WBC (Bld) 1 % Normal 1-4 [facility] Comment on above: Performed By: #### C P, CDP, COSMO, BHCG, MG, VD25, LIP #### [address] [address] Phone Engineer: Campos Avilez MD Erythrocyte distribution width (RBC) [Ratio] 14.0 % Normal 11.8-14.4 [facility] Comment on above: Performed By: #### C P, CDP, COSMO, BHCG, MG, VD25, LIP #### [address] [address] Phone Engineer: Campos Avilez MD Hematocrit (Bld) [Volume fraction] 34.3 % Low 36.3-47.1 [facility] Comment on above: Performed By: #### C P, CDP, COSMO, BHCG, MG, VD25, LIP #### [address] [address] Phone Engineer: Campos Avilez MD Hemoglobin (Bld) [Mass/Vol] 11.1 g/dL Low 11.9-15.1 [facility] Comment on above: Performed By: #### C P, CDP, COSMO, BHCG, MG, VD25, LIP #### [address] [address] Phone Engineer: Campos Avilez MD Immature granulocytes (Bld) [#/Vol] 0 % Normal 0 [facility] Comment on above: Performed By: #### C P, CDP, COSMO, BHCG, MG, VD25, LIP #### [place] [address] Phone Engineer: Campos Avilez MD Lymphocytes (Bld) [#/Vol] 1.77 10*3/uL Normal 1.20-5.20 [facility] Comment on above: Performed By: #### C P, CDP, COSMO, BHCG, MG, VD25, LIP #### [place] [address] Phone Engineer: Campos Avilez MD Lymphocytes/100 WBC (Bld) 16 % Low 25-45 [facility] Comment on above: Performed By: #### C P, CDP, COSMO, BHCG, MG, VD25, LIP #### [place] [address] Phone Engineer: Campos Avilez MD MCH (RBC) [Entitic mass] 26.6 pg Normal 25.0-35.0 [facility] Comment on above: Performed By: #### C P, CDP, COSMO, BHCG, MG, VD25, LIP #### [address] [address] Phone Engineer: Campos Avilez MD MCHC (RBC) [Mass/Vol] 32.4 g/dL Normal 28.4-34.8 [facility] Comment on above: Performed By: #### C P, CDP, COSMO, BHCG, MG, VD25, LIP #### [address] [address] Phone Engineer: Campos Avilez MD MCV (RBC) [Entitic vol] 82.3 fL Normal 78.0-102.0 [facility] Comment on above: Performed By: #### C P, CDP, COSMO, BHCG, MG, VD25, LIP #### [address] [address] Phone Engineer: Campos Avilez MD Monocytes (Bld) [#/Vol] 0.73 10*3/uL Normal 0.10-1.40 [facility] Comment on above: Performed By: #### C P, CDP, COSMO, BHCG, MG, VD25, LIP #### [address] [address] Phone Engineer: Campos Avilez MD Monocytes/100 WBC (Bld) 7 % Normal 2-8 [facility] Comment on above: Performed By: #### C P, CDP, COSMO, BHCG, MG, VD25, LIP #### [address] [address] Phone Engineer: Campos Avilez MD Neutrophil (Seg) 75 % High 34-64 [facility] Comment on above: Performed By: #### C P, CDP, OCSMO, BHCG, MG, VD25, LIP #### [address] [address] Phone Engineer: Campos Avilez MD NRBC Automated 0.0 per 100 WBC Normal 0.0 [facility] Comment on above: Performed By: #### C P, CDP, COSMO, BHCG, MG, VD25, LIP #### [address] [address] Phone Engineer: Campos Avilez MD Platelet mean volume (Bld) [Entitic vol] 11.8 fL Normal 8.1-13.5 [facility] Comment on above: Performed By: #### C P, CDP, COSMO, BHCG, MG, VD25, LIP #### [address] [address] Phone Engineer: Campos Avilez MD Platelets (Bld) [#/Vol] 288 10*3/uL Normal 138-453 [facility] Comment on above: Performed By: #### C P, CDP, COSMO, BHCG, MG, VD25, LIP #### [address] [address] Phone Engineer: Campos Avilez MD RBC (Bld) [#/Vol] 4.17 10*6/uL Normal 3.95-5.11 [facility] Comment on above: Performed By: #### C P, CDP, COSMO, BHCG, MG, VD25, LIP #### [address] [address] Phone Engineer: Campos Avilez MD WBC (Bld) [#/Vol] 10.8 10*3/uL Normal 4.5-13.5 [facility] Comment on above: Performed By: #### C P, CDP, COSMO, BHCG, MG, VD25, LIP #### [address] [address] Phone Engineer: Campos Avilez MD Auto Diff Performed NOT REPORTED Normal [facility] Comment on above: Performed By: #### C P, CDP, COSMO, BHCG, MG, VD25, LIP #### [address] [address] Phone Engineer: Campos Avilez MD Platelets (Bld) [#/Vol] NOT REPORTED Normal [facility] Comment on above: Performed By: #### C P, CDP, CSOMO, BHCG, MG, VD25, LIP #### [id number] [place] [address] Phone Engineer: Campos Avilez MD RBC morphology finding Nom (Bld) NOT REPORTED Normal [facility] Comment on above: Performed By: #### C P, CDP, COSMO, BHCG, MG, VD25, LIP #### [facility] [address] [place] [phone] Phone Engineer: Campos Avilez MD WBC Morphology NOT REPORTED Normal [facility] Comment on above: Performed By: #### C P, CDP, COSMO, BHCG, MG, VD25, LIP #### [address] [address] Phone Engineer: Campos Avilez MD Calcium, Ionicon 07-08-2020 Calcium [Mass/Vol] 1.18 mmol/L Normal 1.13-1.33 [facility] Comment on above: Performed By: #### I OCAL #### [address] [address] Phone Engineer: Campos Avilez MD Calcium, Ionizedon Calcium [Mass/Vol] 1.18 mmol/L 1.13 - 1. 33 mmol/L [facility], [place] Comp Metabolic Profon 2020 (cont.) Normal [facility] Comment on above: Result Comment: Aver age GFR for <20 years old not available. Chronic Kidney Disease: <60 mL/min/1.73sq m Kidney failure: <15 mL/min/1.73sq m eGFR calculated using average adult body mass. Additional eGFR calculator available at: http://www.[employer].com/multiple_crcl_2012.htm Performed By: #### C P, CDP, COSMO, BHCG, MG, VD25, LIP #### [address] [address] Phone Engineer: Campos Avilez MD Albumin [Mass/Vol] 2.3 g/dL Low 3.5-5.2 [facility] Comment on above: Performed By: #### C P, CDP, COSMO, BHCG, MG, VD25, LIP #### [address] [address] Phone Engineer: Campos Avilez MD Albumin/Globulin [Mass ratio] 0.9 {ratio} Low 1.0-2.5 [facility] Comment on above: Performed By: #### C P, CDP, COSMO, BHCG, MG, VD25, LIP #### [address] [address] Phone Engineer: Campos Avilez MD Alkaline Phos 41 U/L Normal 35-104 [facility] Comment on above: Result Comment: SPEC IMEN MODERATELY HEMOLYZED, RESULTS MAY BE ADVERSELY AFFECTED Performed By: #### C P, CDP, COSMO, BHCG, MG, VD25, LIP #### [address] [address] Phone Engineer: Campos Avilez MD ALT [Catalytic activity/Vol] 11 U/L Normal 5-33 [facility] Comment on above: Result Comment: SPEC IMEN MODERATELY HEMOLYZED, RESULTS MAY BE ADVERSELY AFFECTED Performed By: #### C P, CDP, COSMO, BHCG, MG, VD25, LIP #### [address] [address] Phone Engineer: Campos Avilez MD Anion gap [Moles/Vol] 9 mmol/L Normal 9-17 [facility] Comment on above: Performed By: #### C P, CDP, COSMO, BHCG, MG, VD25, LIP #### [address] [address] Phone Engineer: Campos Avilez MD AST [Catalytic activity/Vol] 28 U/L Normal <32 [facility] Comment on above: Result Comment: SPEC IMEN MODERATELY HEMOLYZED, RESULTS MAY BE ADVERSELY AFFECTED Performed By: #### C P, CDP, COSMO, BHCG, MG, VD25, LIP #### [facility] [address] [place] [address] Phone Engineer: Campos Avilez MD Bilirubin Ql (U) <0.10 Low 0.3-1.2 [facility] Comment on above: Performed By: #### C P, CDP, COSMO, BHCG, MG, VD25, LIP #### [facility] [address] [place] [address] Phone Engineer: Campos Avilez MD Calcium [Mass/Vol] 5.5 mg/dL Critically low 8.6-10.4 [facility] Comment on above: Performed By: #### C P, CDP, COSMO, BHCG, MG, VD25, LIP #### [facility] [address] [place] [address] Phone Engineer: Campos Avilez MD Chloride [Moles/Vol] 118 mmol/L High 98-107 [facility] Comment on above: Performed By: #### C P, CDP, COSMO, BHCG, MG, VD25, LIP #### [facility] [address] [place] [address] Phone Engineer: Campos Avilez MD CO2 [Moles/Vol] 14 mmol/L Low 20-31 [facility] Comment on above: Performed By: #### C P, CDP, COSMO, BHCG, MG, VD25, LIP #### [facility] [address] [place] [address] Phone Engineer: Campos Avilez MD Creatinine [Mass/Vol] 0.60 mg/dL Normal 0.50-0.90 [facility] Comment on above: Performed By: #### C P, CDP, COSMO, BHCG, MG, VD25, LIP #### [address] [address] Phone Engineer: Campos Avilez MD GFR,non Amer Pediatric GFR requires additional information. Refer to NKDEP website for Normal >60 [facility] Comment on above: Result Comment: calc ulator. Performed By: #### C P, CDP, COSMO, BHCG, MG, VD25, LIP #### [address] [address] Phone Engineer: Campos Avilez MD Glucose [Mass/Vol] 84 mg/dL Normal 70-99 [facility] Comment on above: Performed By: #### C P, CDP, COSMO, BHCG, MG, VD25, LIP #### [address] [address] Phone Engineer: Campos Avilez MD Potassium [Moles/Vol] 5.1 mmol/L Normal 3.7-5.3 [facility] Comment on above: Result Comment: SPEC IMEN MODERATELY HEMOLYZED, RESULTS MAY BE ADVERSELY AFFECTED Performed By: #### C P, CDP, COSMO, BHCG, MG, VD25, LIP #### [address] [address] Phone Engineer: Campos Avilez MD Protein [Mass/Vol] 5.0 g/dL Low 6.4-8.3 [facility] Comment on above: Performed By: #### C P, CDP, COSMO, BHCG, MG, VD25, LIP #### [address] [address] Phone Engineer: Campos Avilez MD Sodium [Moles/Vol] 141 mmol/L Normal 135-144 [facility] Comment on above: Performed By: #### C P, CDP, COSMO, BHCG, MG, VD25, LIP #### [address] [address] Phone Engineer: Campos Avilez MD Urea nitrogen [Mass/Vol] 10 mg/dL Normal 6-20 [facility] Comment on above: Performed By: #### C P, CDP, COSMO, BHCG, MG, VD25, LIP #### [address] [address] Phone Engineer: Campos Avilez MD BUN/CRE Ratio NOT REPORTED Normal 9-20 [facility] Comment on above: Performed By: #### C P, CDP, COSMO, BHCG, MG, VD25, LIP #### [facility] [address] [place] [address] Phone Engineer: Campos Avilez MD GFR, Amer NOT REPORTED Normal >60 [facility] Comment on above: Performed By: #### C P, CDP, COSMO, BHCG, MG, VD25, LIP #### [facility] [address] [place] [address] Phone Engineer: Campos Avilez MD Staging: NOT REPORTED Normal [facility] Comment on above: Performed By: #### C P, CDP, COSMO, BHCG, MG, VD25, LIP #### [facility] [address] [place] [address] Phone Engineer: Campos Avilez MD HCG, ,Urineon 07-08 Beta HCG ( test) Ql (U) Negative Normal NEG [facility] Comment on above: Result Comment: [...] Performed By: #### U HCG, UAMIC #### [address] [address] Phone Engineer: Campos Avilez MD HCG, Quanton 07-08-2020 HCG, Quant <1 Normal <5 [facility] Comment on above: Result Comment: [...] COSMO, BHCG, MG, VD25, LIP #### [facility] [address] [place] [address] Phone Engineer: Campos Avilez MD Lipaseon 07-08-2020 Lipase [Catalytic activity/Vol] 15 U/L Normal 13-60 [facility] Comment on above: Performed By: #### C P, CDP, COSMO, BHCG, MG, VD25, LIP #### [facility] [address] [place] [address] Phone Engineer: Campos Avilez MD Magnesiumon 07-08-2020 Magnesium [Mass/Vol] 1.2 mg/dL Low 1.7-2.2 [facility] Comment on above: Performed By: #### C P, CDP, COSMO, BHCG, MG, VD25, LIP #### [facility] [address] [place] [address] Phone Engineer: Campos Avilez MD Interpretation and review of laboratory results Abnormal [place] Magnesium [Mass/Vol] 1.2 mg/dL Low 1.7 - 2 .2 mg/dL [place] Otheron 07-08-2020 Direct Exam Negative [place] , URINEon 1 Beta HCG ( test) Ql (U) Negative NEGATIVE [place] Comment on above: Specimens with hCG [...] 2.6 mg/dL 2.5 - 4 .8 mg/dL [place] Phosphorus, Inorg.on 021 Phosphorus, Inorg. 2.6 mg/dL Normal 2.5-4.8 [facility] Comment on above: Performed By: #### U HCG, UAMIC #### [facility] [address] [place] [address] Phone Engineer: Campos Avilez MD NON OB TRANSVAGINALon Elia, Mhpn Incoming Radiant Results From [email or web address] - 07/08/2020 12:31 AM EST EXAMINATION: PELVIC [...] No evidence of ovarian torsion is noted. [place], [place] Unremarkable pelvic ultrasound. No evidence of ovarian torsion is noted. [place] EXAMINATION: PELVIC ULTRASOUND 07/07/2020 TECHNIQUE: Transvaginal [...] Free Fluid: No evidence of free fluid. [facility]- [place], [place] Urinalysis w/ Microon 2020 ----- Normal [facility] Comment on above: Performed By: #### U HCG, UAMIC #### [address] [address] Phone Engineer: Campos Avilez MD Acetoacetic Acid,Ur Negative Normal NEG [facility] Comment on above: Performed By: #### U HCG, UAMIC #### [address] [address] Phone Engineer: Campos Avilez MD Bacteria LM.HPF (Urine sed) [#/Area] MANY Abnormal NONE [facility] Comment on above: Performed By: #### U HCG, UAMIC #### [address] [address] Phone Engineer: Campos Avilez MD Bilirubin, SemiQt,Ur Negative Normal NEG [facility] Comment on above: Performed By: #### U HCG, UAMIC #### [address] [address] Phone Engineer: Campos Avilez MD Color (U) ORANGE Abnormal YEL [facility] Comment on above: Result Comment: INTE RPRET WITH CAUTION DUE TO INTENSE COLOR OF URINE. Performed By: #### U HCG, UAMIC #### [address] [address] Phone Engineer: Campos Avilez MD Epithelial cells LM.HPF (Urine sed) [#/Area] 0 TO 2 Normal 0-5 [facility] Comment on above: Performed By: #### U HCG, UAMIC #### [address] [address] Phone Engineer: Campos Avilez MD Glucose Ql (U) Negative Normal NEG [facility] Comment on above: Performed By: #### U HCG, UAMIC #### [address] [address] Phone Engineer: Campos Avilez MD Hemoglobin, Ur LARGE Abnormal NEG [facility] Comment on above: Performed By: #### U HCG, UAMIC #### [address] [address] Phone Engineer: Campos Avilez MD Leukocyte esterase Test strip Ql (U) MODERATE Abnormal NEG [facility] Comment on above: Performed By: #### U HCG, UAMIC #### [address] [address] Phone Engineer: Campos Avilez MD Nitrite,Ur Positive Abnormal NEG [facility] Comment on above: Performed By: #### U HCG, UAMIC #### [address] [address] Phone Engineer: Campos Avilez MD pH (U) 5.5 [pH] Normal 5.0-8.0 [facility] Comment on above: Performed By: #### U HCG, UAMIC #### [address] [address] Phone Engineer: Campos Avilez MD Protein Ql (U) 2+ Abnormal NEG [facility] Comment on above: Performed By: #### U HCG, UAMIC #### [address] [address] Phone Engineer: Campos Avilez MD RBC (U) [#/Vol] 50 TO 100 Normal 0-4 [facility] Comment on above: Result Comment: Refe rence range defined for non-centrifuged specimen. Performed By: #### U HCG, UAMIC #### [address] [address] Phone Engineer: Campos Avilez MD Specific gravity (U) [Rel density] 1.021 Normal 1.005-1.030 [facility] Comment on above: Performed By: #### U HCG, UAMIC #### [address] [address] Phone Engineer: Campos Avilez MD Turbidity TURBID Abnormal CLEAR [facility] Comment on above: Performed By: #### U HCG, UAMIC #### [address] [address] Phone Engineer: Campos Avilez MD Urobilinogen,Ur Normal Normal NORM [facility] Comment on above: Performed By: #### U HCG, UAMIC #### [address] [address] Phone Engineer: Campos Avilez MD WBC (U) [#/Vol] TOO NUMEROUS TO COUNT Normal 0-5 [facility] Comment on above: Performed By: #### U HCG, UAMIC #### [address] [address] Phone Engineer: Campos Avilez MD Amorphous sediment LM Ql (Urine sed) NOT REPORTED Normal NONE [facility] Comment on above: Performed By: #### U HCG, UAMIC #### [address] [address] Phone Engineer: Campos Avilez MD Casts LM.LPF (Urine sed) [#/Area] NOT REPORTED Normal 0-8 [facility] Comment on above: Performed By: #### U HCG, UAMIC #### [address] [address] Phone Engineer: Campos Avilez MD Crystals LM Nom (Urine sed) NOT REPORTED Normal NONE [facility] Comment on above: Performed By: #### U HCG, UAMIC #### [address] [address] Phone Engineer: Campos Avilez MD Epithelial, Renal NOT REPORTED Normal 0 [facility] Comment on above: Performed By: #### U HCG, UAMIC #### [address] [address] Phone Engineer: Campos Avilez MD Mucus Strands NOT REPORTED Normal NONE [facility] Comment on above: Performed By: #### U HCG, UAMIC #### [address] [address] Phone Engineer: Campos Avilez MD Other Observations NOT REPORTED Normal NREQ [facility] Comment on above: Performed By: #### U HCG, UAMIC #### [address] [address] Phone Engineer: Campos Avilez MD Trichomonas NOT REPORTED Normal NONE [facility] Comment on above: Performed By: #### U HCG, UAMIC #### [address] [address] Phone Engineer: Campos Avielz MD Yeast LM Ql (Urine sed) NOT REPORTED Normal [facility] Comment on above: Performed By: #### U HCG, UAMIC #### [facility] [address] [place] [address] Phone Engineer: Campos Avilez MD Urinalysis with microscopico n 07-08-2020 Amorphous, UA NOT REPORTED None [facility] [place] [place] Bacteria, UA MANY Abnormal None [facility] [place] Bilirubin Urine Negative NEGATIVE [facility] [place] Casts UA NOT REPORTED [facility] [place], [place] Color, UA ORANGE Abnormal YELLOW [facility], [place] Comment on above: INTERPRET WITH CAUTI ON DUE TO INTENSE COLOR OF URINE. Crystals, UA NOT REPORTED None /HPF [place] Epithelial Cells UA 0 TO 2 [place] Glucose, Ur Negative NEGATIVE [place] Interpretation and review of laboratory results Abnormal [place] Ketones Ql (U) Negative NEGATIVE [place] Leukocyte esterase Test strip Ql (U) MODERATE Abnormal NEGATIVE [place] Mucus, UA NOT REPORTED None [place] Nitrite, Urine Positive Abnormal NEGATIVE [place] Other Observations UA NOT REPORTED NOT REQ. M [place] pH, UA 5.5 [place] Protein (U) [Mass/Vol] 2+ Abnormal NEGATIVE [place], [place] RBC (U) [#/Vol] 50 TO 100 [place], [place] Comment on above: Reference range defi sonia for non-centrifuged specimen. Renal Epithelial, UA NOT REPORTED 0 /HPF [place], [place] Specific [place], UA 1.021 [place] Trichomonas, UA NOT REPORTED None [place] Turbidity UA TURBID Abnormal CLEAR [place] Urine Hgb LARGE Abnormal NEGATIVE [place] Urobilinogen, Urine Normal Normal [place] WBC, UA TOO NUMEROUS TO COUNT [place] Yeast, UA NOT REPORTED None [place] VAGINITIS DNA PROBEon 2020 Direct Exam Positive Abnormal [place] Direct Exam Method of testing is a DNA probe intended for detection and identification of Samantha species, Gardnerella vaginalis, and Trichomonas vaginalis nucleic acid in vaginal fluid specimens from patients with symptoms of vaginitis/vaginosis. [place] Interpretation and review of laboratory results Abnormal [place] Special Requests NOT REPORTED [place] Specimen Description .VAGINA [place] Vaginitis DNA Probeon 2020 Vaginitis DNA [...] of vaginitis/vaginosis. Report Status FINAL 07/08/2020 Normal [facility] Comment on above: Performed By: #### U HCG, UAMIC #### [facility] [address] [place] [phone] Phone Engineer: Campos Avilez MD Vitamin D 25 Hydroxyon 07-08 Interpretation and review of laboratory results Abnormal [place] Vit D, 25-Hydroxy 12.1 ng/mL Low 30 - 100 ng/mL [place] Comment on above: Reference Range: Vitamin D status Range Deficiency <20 ng/mL Mild Deficiency 20-30 ng/mL Sufficiency 30-100 ng/mL Toxicity >100 ng/mL Vitamin D 25 OHon 07-08-2020 Vitamin D 25 [place] 12.1 ng/mL Low 30.0-100.0 [facility] Comment on above: Result Comment: Reference Range: Vitamin D status Range Deficiency <20 ng/mL Mild Deficiency 20-30 ng/mL Sufficiency 30-100 ng/mL Toxicity >100 ng/mL Performed By: #### U HCG, UAMIC #### [facility] [address] [place] [phone] Phone Engineer: Campos Avilez MD ABO/RHon 07-07-2020 ABO/Rh Positive [place] CBC WITH AUTO DIFFERENTIALon 07-07-2020 Basophils (Bld) [#/Vol] 0.04 10*3/uL [place] Basophils/100 WBC (Bld) 0 % 0 - 2 % [place] Differential Type NOT REPORTED [place] Eosinophils (Bld) [#/Vol] 0.10 10*3/uL [place] Eosinophils/100 WBC (Bld) 1 % 1 - 4 % [place] Erythrocyte distribution width (RBC) [Ratio] 14.0 % 11.8 - 14.4 % [place] Hematocrit (Bld) [Volume fraction] 34.3 % Low 36.3 - 47.1 % [place] Hemoglobin (Bld) [Mass/Vol] 11.1 g/dL Low 11.9 - 15.1 g/dL [place] Immature granulocytes (Bld) [#/Vol] 0 % 0 [place] Immature granulocytes (Bld) [#/Vol] 0.04 10*3/uL [place] Interpretation and review of laboratory results Abnormal [place] Lymphocytes (Bld) [#/Vol] 1.77 10*3/uL [place] Lymphocytes/100 WBC (Bld) 16 % Low 25 - 45 % [place] MCH (RBC) [Entitic mass] 26.6 pg 25 - 35 pg [place] MCHC (RBC) [Mass/Vol] 32.4 g/dL 28.4 - 34.8 g/dL [place] MCV (RBC) [Entitic vol] 82.3 fL 78 - 102 fL [place] Monocytes (Bld) [#/Vol] 0.73 10*3/uL [place] Monocytes/100 WBC (Bld) 7 % 2 - 8 % [place] Platelet mean volume (Bld) [Entitic vol] 11.8 fL 8.1 - 13.5 fL [place] Platelets (Bld) [#/Vol] NOT REPORTED [place] Platelets (Bld) [#/Vol] 288 10*3/uL [place] RBC (Bld) [#/Vol] 4.17 10*6/uL 3.95 - 5.1 1 m/uL [place] RBC morphology finding Nom (Bld) NOT REPORTED [place] Segmented neutrophils/100 WBC (Bld) 75 % High 34 - 64 % [place] Segs Absolute 8.16 [place] WBC (Bld) [#/Vol] 0.0 10*3/uL 0.0 per 10 0 WBC [place] WBC (Bld) [#/Vol] 10.8 10*3/uL [place] WBC Morphology NOT REPORTED [place] COMPREHENSIVE METABOLIC PANE Mikie 07-07-2020 Albumin [Mass/Vol] 2.3 g/dL Low 3.5 - 5.2 g/dL [place] Albumin/Globulin [Mass ratio] 0.9 {ratio} Low [place] ALP [Catalytic activity/Vol] 41 U/L 35 - 104 U/L [place] Comment on above: SPECIMEN MODERATELY HEMOLYZED, RESULTS MAY BE ADVERSELY AFFECTED ALT [Catalytic activity/Vol] 11 U/L 5 - 33 U/L [place] Comment on above: SPECIMEN MODERATELY HEMOLYZED, RESULTS MAY BE ADVERSELY AFFECTED Anion gap [Moles/Vol] 9 mmol/L 9 - 17 mmol/L [place] AST [Catalytic activity/Vol] 28 U/L <32 [place] Comment on above: SPECIMEN MODERATELY HEMOLYZED, RESULTS MAY BE ADVERSELY AFFECTED Bilirubin Ql (U) <0.10 Low 0.3 - 1.2 mg/dL [place] Bun/Cre Ratio NOT REPORTED [place] Calcium [Mass/Vol] 5.5 mg/dL Critically low 8.6 - 1 0.4 mg/dL [place] Chloride [Moles/Vol] 118 mmol/L High 98 - 10 7 mmol/L [place] CO2 [Moles/Vol] 14 mmol/L Low 20 - 31 mmol/L [place] Creatinine [Mass/Vol] 0.6 mg/dL 0.5 - 0.9 mg/dL [place] GFR NOT REPORTED >60 mL/min [place] GFR Non- Pediatric GFR requires additional information. Refer to NKDEP website for calculator. >60 mL/min [place] GFR/1.73 sq M predicted among non-blacks MDRD (S/P/Bld) [Vol rate/Area] NOT REPORTED [place] GFR/1.73 sq M predicted among non-blacks MDRD (S/P/Bld) [Vol rate/Area] [place] Comment on above: Average GFR for <20 years old not available. Chronic Kidney Disease: <60 mL/min/1.73sq m Kidney failure: <15 mL/min/1.73sq m eGFR calculated using average adult body mass. Additional eGFR calculator available at: http://www.[employer]/multiple_crcl_2012.htm Glucose [Mass/Vol] 84 mg/dL 70 - 99 mg/dL [place] Interpretation and review of laboratory results Abnormal [place] Potassium [Moles/Vol] 5.1 mmol/L 3.7 - 5.3 mmol/L [place] Comment on above: SPECIMEN MODERATELY HEMOLYZED, RESULTS MAY BE ADVERSELY AFFECTED Protein [Mass/Vol] 5.0 g/dL Low 6.4 - 8.3 g/dL [place] Sodium [Moles/Vol] 141 mmol/L 135 - 144 mmol/L [place] Urea nitrogen [Mass/Vol] 10 mg/dL 6 - 20 mg/dL [place] HCG, QUANTITATIVE, on 07-07-2020 hCG Quant <1 <5 IU/L [place] Comment on above: Non-preg premeno <=5 [...] activity/Vol] 15 U/L 13 - 60 U/L [place] Vital Signs Date Time Vital Sign Value Performing Clinician Facility 10-26-2023 03:30-0400 Hourly Rounding [facility] Comment on above: Result Comment: pt discharged off unit 10-26-2023 03:15-0400 Hourly [address] [facility] Comment on above: Result Comment: went over discharge inst ructions. educated pt on importance of contacting primary provider with future concerns, pisking up antibiotic prescription tomorrow, and calling is symtpoms return or get worse. 10-26-2023 00:00-0400 Blood Pressure Location [facility] Fl[facility] 10-26-2023 00:00-0400 Body temperature 98.6 [degF] [facility] 10-26-2023 00:00-0400 Diastolic blood pressure 68 mm[Hg] [facility] 10-26-2023 00:00-0400 Heart rate 101 /min [facility] 10-26-2023 00:00-0400 Hourly [address] [facility] 10-26-2023 00:00-0400 Mean blood pressure 86 mm[Hg] [facility] Fl[facility] 10-26-2023 00:00-0400 Respiratory rate 16 /min [facility] 10-26-2023 00:00-0400 Systolic blood pressure 122 mm[Hg] [facility] Fl[facility] 07-17-2023 11:42-0500 Body weight 127.82 kg Chung Benja [employer] Work Phone: [facility] 07-17-2023 11:42-0500 Diastolic blood pressure 70 mm[Hg] Chung Benja DO Work Phone: [facility] 07-17-2023 11:42-0500 Systolic blood pressure 118 mm[Hg] Chung Benja DO Work Phone: [facility] 10-19-2021 01:12-0400 Diastolic blood pressure 62 mm[Hg] [facility] 10-19-2021 01:12-0400 Heart rate 89 /min PHYSICIAN [facility] 10-19-2021 01:12-0400 Respiratory rate 18 /min PHYS[facility] 10-19-2021 01:12-0400 SaO2% (BldA) [Mass fraction] 100 % [facility]YSICIAN [facility] 10-19-2021 01:12-0400 Systolic blood pressure 130 mm[Hg] [facility] 10-18-2021 23:10-0400 Body height 167.64 cm [facility] 10-18-2021 23:10-0400 Body mass index (BMI) [Percentile] Per age and sex 99.1 % [facility]YS[facility] 10-18-2021 23:10-0400 Body mass index (BMI) [Ratio] 48.2 kg/m2 [facility] 10-18-2021 23:10-0400 Body weight 135.5 kg [facility] 10-18-2021 23:08-0400 Body temperature 98.4 [degF] [facility] 07-07-2020 21:51-0500 BMI (Body Mass Index) 42.93 kg/m2 [facility] [place] 07-07-2020 21:51-0500 Body weight 120.66 [facility] [place] [place] 07-07-2020 21:51-0500 BP Diastolic 85 mm[Hg] [facility] [place] 07-07-2020 21:51-0500 BP Systolic 136 mm[Hg] [facility] , [place] 07-07-2020 21:51-0500 Height 167.6 cm [facility] [place] 07-07-2020 21:51-0500 Pulse (Heart Rate) 93 /min [facility] [place] 07-07-2020 21:51-0500 Pulse Oximetry 97 % [facility] [place] 07-07-2020 21:51-0500 Respiratory Rate 18 /min [facility] [place] 07-07-2020 21:48-0500 Body Temperature 97.11 [degF] [facility] [place], [place] Encounters Encounter Date Encounter [...] 10-26-2023 End: 10-26-2023 ambulatory Fuentes Florentino [place] [place] Start: 10-25-2023 End: 10-26-2023 OB [address] [facility] Start: 10-07-2023 End: 10-07-2023 ambulatory CHUNG [...] Emergency department patient visit PHYSICIAN NO FAMILY Facility:[facility] Start: 10-18-2021 End: 10-19-2021 Emergency department patient visit PHYSICIAN NO FAMILY [facility] Start: 07-07-2020 End: 07-08-2020 Emergency department patient visit DAVID AQUINO [facility] Start: 07-07-2020 End: 07-08-2020 Emergency department patient visit Lisa Land Work Phone: [facility] ED Comment on above: BV (bacterial [...] AM EDT Routine [facility] OB [address] [place] [id number] Halima Cullen PA [address] [place], [place] [id number] [employer] [facility] B[facility] OB Start: 07-17-2023 End: 07-17-2024 US for US OB VIABLILITY Imaging Routine with uncertain viability, single or unspecified fetus Expected: 07/17/2023 (Approximate), Expires: 07/17/2024 [facility] Work Phone: Comment on above: [...] 02-01-2020 Influenza vaccination Flu vaccine (# 1) [place], [place] Start: 2018 Meningococcal (ACWY) vaccine (1 - 2-dose series) Meningococcal (ACWY) vaccine (1 - 2-dose series) [place], [place] Start: 2018 Screening for Chlamy nancy trachomatis Chlamydia screen [place], [place] Start: 2017 HIV screening HIV screen [place], [place] Start: 2013 HPV vaccine (1 - 2-d ose series) HPV vaccine (1 - 2-dose series) [place] Start: 2009 DTaP/Tdap/Td vaccine (1 - Tdap) DTaP/Tdap/Td vaccine (1 - Tdap) [place] Start: 2003 Hepatitis A vaccine (1 of 2 - 2-dose series) Hepatitis A vaccine (1 of 2 - 2-dose series) [place] Start: 2003 Measles,Mumps,Rubell a (MMR) vaccine (1 of 2 - Standard series) Measles,Mumps,Rubella (MMR) vaccine (1 of 2 - Standard series) [place] Start: 2003 Varicella vaccine (1 of 2 - 2-dose childhood series) Varicella vaccine (1 of 2 - 2-dose childhood series) [place] Start: 2002 Hepatitis B vaccine (1 of 3 - 3-dose primary series) Hepatitis B vaccine (1 of 3 - 3-dose primary series) [place] Start: 2002 [facility]atitis [facility] [place] [place] Bacteria identified in Urine by Culture Urine culture Microbiology Routine Missed menses Ordered: 07/03/2023 [facility] Comment on above: Ordered: 07/03/2023 End: 07-07-2020 C.trachomatis N.gonorrhoeae DNA C.trachomatis N.gonorrhoeae DNA Microbiology STAT One Time for 1 Occurrences starting 07/07/2020 until 07/07/2020 [place], [place] Comment on above: One Time for 1 Occur rences starting 07/07/2020 until 07/07/2020 C.trachomatis N.gonorrhoeae DNA C.trachomatis N.gonorrhoeae DNA Microbiology Stat [employer] Label print 07/07/2020 11:20 PM [place], [place] End: 07-08-2020 Calcium, Ionized Calcium, Ionized Lab STAT One Time for 1 Occurrences starting 07/08/2020 until 07/08/2020 [place] Comment on above: One Time for 1 Occur rences starting 07/08/2020 until 07/08/2020 CBC W Auto Different ial panel - Blood CBC and differential Lab Routine Missed menses Ordered: 07/03/2023 [facility] Comment on above: Ordered: 07/03/2023 End: 07-07-2020 Culture, Urine Culture, Urine Microbiology STAT One Time for 1 Occurrences starting 07/07/2020 until 07/07/2020 [place] Comment on above: One Time for 1 Occur rences starting 07/07/2020 until 07/07/2020 Culture, Urine Culture, Urine Microbiology Stat [employer] Label print 07/07/2020 10:56 PM [facility] [place] MD Hemoglobin A1c measurement Hemoglobin A1c Lab Routine Missed menses Ordered: 07/03/2023 [facility] Comment on above: Ordered: 07/03/2023 Hepatitis B virus surface Ag [Presence] in Serum or Plasma by Immunoassay Hepatitis B surface antigen Lab Routine Missed menses Ordered: 07/03/2023 [facility] Comment on above: Ordered: 07/03/2023 Hepatitis C virus Ab [Presence] in Serum or Plasma by Immunoassay Hepatitis C antibody Lab Routine Missed menses Ordered: 07/03/2023 [facility] Comment on above: Ordered: 07/03/2023 HIV-1/HIV-2 antigen/antibody combination immunoassay HIV-1 and HIV-2 antibodies Lab Routine Missed menses Ordered: 07/03/2023 [facility] Comment on above: Ordered: 07/03/2023 Patient Education Common Breast Problems Pelvic Pain ED [facility] Work Phone: Patient referral [facility] Work Phone: Reagin Ab [Presence] in Serum by RPR RPR Lab Routine Missed menses Ordered: 07/03/2023 [facility] Comment on above: Ordered: 07/03/2023 Rubella antibody, IgG Rubella an tibody, IgG Lab Routine Missed menses Ordered: 07/03/2023 [facility] Comment on above: Ordered: 07/03/2023 End: 07-07-2020 US DUP ABD PEL RETRO SCROT LIMITED US DUP ABD PEL RETRO SCROT LIMITED Imaging STAT Once for 1 Occurrences starting 07/07/2020 until 07/07/2020 [facility] Comment on above: Once for 1 Occurrenc es starting 07/07/2020 until 07/07/2020 US DUP ABD PEL RETRO SCROT LIMITED US DUP ABD PEL RETRO SCROT LIMITED Imaging STAT 07/08/2020 12:13 AM [facility] Payers Date Payer Category Payer Unknown BCBS BCBS [id number] 2023-Present [phone] [address] [place] [address] [id number] 2023 Unknown [id number] 2021 [facility] [id number] 2002 Unknown [id number] 2002 Unknown [id number] [id number] 2002 Unknown [id number] [id number] 2002 Unknown [id number] [id number] 2002 Unknown [id number] [id number] 2002 Unknown [id number] [id number] 2002 Unknown [id number] [id number] 2002 Unknown [id number] [id number] 2002 Unknown [id number] [id number] 2002 Unknown [id number] 2.16.840.1.816531.3.579.2.125 2002 Unknown [id number] 2.16.840.1.264045.3.579.2.125 2002 Unknown [id number] [id number] 2002 Unknown [id number] [id number] 2002 Unknown [id number] [id number] 2002 Unknown [id number] [id number] 1959 Medicaid [id number] 1959 Unknown [id number] Unknown [id number] Social History Date Type Detail Facility Start: 07-07-2020 End: 07-16-2023 Tobacco smoking status MOIS Never smoker [facility] Start: 07-07-2020 Tobacco use and exposure [place] Start: 2002 Sex Assigned At Not on file [place] Exposure to SARS-CoV-2 (event) Not sure [place], [place] Start: 10-19-2021 Tobacco smoking status MOIS Smoker (finding) [facility] Start: 2002 Sex Assigned At Female F [facility] Tobacco smoking status [facility] Tobacco smoking consumption unknown [facility] Start: 05-22-2023 [facility] Start: 07-16-2023 Gender identity Not on file [facility] Start: 07-16-2023 End: 07-17-2023 Alcohol intake Lifetime non-drinker (finding) [facility] Start: 07-16-2023 History of Social function [facility] Tobacco smoking status No Smoking Status Entered [facility] Functional Status Date Assessment Result Facility 10-26-2023 Functional Status N/A [facility] Clinical Notes 07-03-2023 to 10-26-2023 Chung Yousif DO - 07/17/2023 11:10 AM Costa Kilgore LPN - 07/03/2023 1:00 PM EST Note Date & Type Note Facility 10-26-2023 Note The following Patien t Education Materials have been given to the patient: EducationMaterial [facility] 10-26-2023 Hospital Discharg e instructions [...] provider. Document Revised: 01/02/2022 Document Reviewed: 01/02/2022 [employer] Patient Education 2022 [employer]. 10/26/2023 03:10:04 Vaginal Bleeding During , Second [...] help with your regular activities. Medicines Take jmma-rxp-lrowwot and prescription medicines only as told by [...] provider. Document Revised: 02/08/2021 Document Reviewed: 02/08/2021 [employer] Patient Education 2022 [employer]. 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 [...] your back during . General instructions Take bscs-gvl-vrqqjsa and prescription medicines only as told by [...] care provider for managing back pain. Take bczx-nqz-yjntpmw and prescription medicines only as told by [...] provider. Document Revised: 08/01/2021 Document Reviewed: 08/01/2021 [employer] Patient Education 2022 [employer]. Follow Up Care 10/25/2023 23:39:34 With:Chung YOUSIF Address: [address] , [place] [address] Business (1) When:11/04/2023 [facility] 10-25-2023 Evaluation + Plan note Diagnostic Tests PendingUrine Culture 10/25/23 [facility] 07-17-2023 History of Presen t illness Narrative Reason for Appointment: Patient ID: Teodoro Upton is a 23 y.o. female who presents for Routine Visit Patient presents today for Return OB appointment. Current Medications: has a current medication list which includes the following prescription(s): mdbqgtob-nts-gv-fa and promethazine. Medical History: Active Ambulatory Problems Diagnosis Date Noted No Active Ambulatory Problems Resolved Ambulatory Problems Diagnosis Date Noted No Resolved Ambulatory Problems Past Medical History: Diagnosis Date ADD (attention deficit disorder) Asthma ([facility]) Family History Problem Relation Name Age [...] DO documented in this encounter [facility] 07-03-2023 History of Presen t illness [...] Problems Past Medical History: Diagnosis Date Asthma ([facility]) No family history on file. Social [...] raw or undercooked meat, stay away from [facility], do not change litter boxes, eat [...] Evaluation note No assessment inform ation available [facility] Work Phone: Evaluation note Diagnosis Missed menses Nausea and vomiting, unspecified vomiting type documented in this encounter [facility] Diagnosis First trimester state, incidental Vaginal bleeding in Threatened miscarriage Threatened , unspecified as to episode of care with uncertain viability, single or unspecified fetus documented in this encounter [facility] Narrative No data available [facility] this section [facility] Additional Instructions Please follow up as we discussed so you can have your concerns further evaluated.[facility] Work Phone: Progress note No data available for this section 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 Friday 8:00a 4:30p [address] Adult Medicine, Pediatrics, METAL MACHINE OPERATOR Friday 8:30a 4:30p [facility] Surgery [address] [facility] Friday 8:30a 11:00a [facility] [address] [facility] Adult Internal Medicine ([facility]) METAL MACHINE OPERATOR Clinic Pediatric Clinic Friday, Friday, , Friday 8:00a 4:30p Friday 1:00p 4:30p Friday, Friday, 8:00a 5:00p; Friday 8:00a 12:30p Friday 1p 4p Friday, Friday, , Friday 8:30a 4:15p Friday 12:30p 4:15p Health Department [address] Pediatric Primary Care Adult Primary Care OB/ Friday, Friday 8a 12p 8a 4:45p [facility] [address] [place] [address] [place] [address] # Pre & Post Adoption Counseling Support / nutrition Care Reward Incentive Program [place] Location Fri, , Fri, Fri 10:00a 4:30p Thur 10:00a 7:30p E [place] Location Friday - Friday 10a 4:30p [facility] METAL MACHINE OPERATOR [address] [facility] Adult Internal Medicine [address] [facility] Pediatrics [address] [facility], [address] Neuro / Headache [address] [facility] Friday 8:30a 5p [facility] [address] [facility] Fri, , , Fri 9:00a 4:30p Wed 1:00p 4:30p [facility] [address] [facility] [address] [facility] Friday 8:30a 5:00p [facility] Specialty Clinics [address] [facility] [address] Burn/Plastic, ENT, GI, Orthopedics, Surgical / Trauma, Urology, Vascular Friday 8:00 4:30p Call for an appointment [facility] [address] [facility] Adult Medicine, Eye Clinic, Dental Patient must be certified homeless Under age 18 not accepted Friday 8:00 4:30p [facility] [address] [facility] OB Friday, Friday, Friday, Friday 9a 5p 9a 6p Friday (OB only) [facility] [address] [facility] OB/ Friday 11a 7p , Fri, 9a 5p Friday 8a 4p 1st Friday 9a 1p Podiatry Clinic [address] [facility], [facility] Building [address] Friday 8:00 4:30 p Center [facility] [address] Free nurse visits Spring programs Counseling Class Call or walk in [facility] [address] Various Clinics 8a 5:30p [facility] Family Medicine [facility] [address] [facility], [address] [facility] Friday 8a 4:30p [facility] [address] [place], [place] [id number] [address] [place] [address] Friday 8a 4:30p Friday 8a 4:30p 8a 8p Outpatient Clinics [facility] [place] [facility] [address] [facility] Friday 9a 5p Diabetic Education Services Call for an appointment [facility] Heart Failure Clinic [address] [facility] Friday 8:30a 4p Dental Services [facility] [address] [facility] Must have source of income and must bring (2) recent check stubs to appointment By appointment only [facility] [address] Patient must be homeless, call for eligibility guidelines. Under age 18 NOT accepted Days and hours vary (Doors open at 8:30a day of week varies) Call for an appointment Miscellaneous Information [facility] Call for Help [phone] Call for an appointment H.E.L.P (Hospital Eligibility Link Program) toll free For financial assistance * Attachments The following attachments cannot be sent through Care Everywhere. * Bacterial Vaginosis (Dutch) * UTI (Urinary Tract Infection): Female (Dutch) * Vitamin D: General Info (Dutch) documented in this encounter Assessments Diagnosis BV [...] section and content) DATE CREATED AUTHOR 07/16/2020 [facility] DATE CREATED AUTHOR AUTHOR'S ORGANIZ ATION 09/07/2022 [facility] DATE CREATED AUTHOR AUTHOR'S ORGANIZ ATION 03/13/2023 [facility] DATE CREATED AUTHOR AUTHOR'S ORGANIZ ATION 10/27/2023 Lopez Bra[facility] DATE CREATED AUTHOR AUTHOR'S ORGANIZ ATION 10/31/2023 [place] Bra[facility] DATE CREATED AUTHOR AUTHOR'S ORGANIZ ATION 01/03/2024 [facility] dical Specialists EPIC Care Teams (unrecognized sec [...] BE BASED ON THE PRIMARY CLINICAL RECORDS. [employer] provides no warranty or guarantee of the accuracy or completeness of information in this document.
[2024-01-09 17:21] VITALS: BP 130/66; PULSE 127
[2024-01-09 18:03] VITALS: BP 125/76; PULSE 97
[2024-01-09 18:18] VITALS: BP 120/64; PULSE 100
== END 2024-01-09 18:15 | disposition home or self-care (01) ==
LOC: FBCO 07:30 → FBC 17:17
PROVIDERS: Visit Provider Obstetrics & Gynecology
DX: O40.3XX0 Polyhydramnios, third trimester, not applicable or unspecified (principal)
CPT/HCPCS: 59025

== ENCOUNTER 2024-01-13 06:59 | Outpatient (OUT) | payer MEDICAID, SELFPAY ==
--- OUTSIDE RECORDS SUMMARY | 2024-01-13 07:03 | XMS_ITS | CCD ---
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 Name Role Phone Unavailable Primary Care Provider [...] Propensity to adverse reactions to drug 07-07-2020 [facility] [place] Medications Current Medications Medication Drug Class(es) [...] Refill(s) 0 Start Date: 10/26/23 Status: Ordered Gifzwxxm-Osg-Vb-FA ( 1 + IRON PO) (4 sources) Znnlufsq-Lnm-Gl-FA ( 1 + IRON PO) Take by [...] Range Facility Nursing Assessmenton 024 Nursing Assessment [id number] 2#1.00TIFF Normal [facility] C Urineon 10-28-2023 Bacteria identified Cx Nom [...] Locations R1: This test was performed at: [facility], [address] [place] [address], [address] [place] [address], [facility] Comment on above: Performed By: #### 2 [id number] #### [facility] Laboratory [address] [place] [address] Consent for Treatmenton 10-01 Consent for Treatment [id number] #1.00TIFF [facility] Discharge Instructionson Discharge Instructions [id number] 7#1.00TIFF [facility] Inpatient Clinical Summaryon 10-26-2023 Inpatient Clinical Summary [address] [address] Clinical Summary Person Information Name: TEODORO UPTON/BannerMaicol Age: 23 Years : 2000 Sex: Female PCP: NONE, XXXX Marital Status: Single Phone: [phone] Race: or Ethnicity: Non- or Language: Portuguese Visit Id: Visit Reason: 24 WEEKS BLEEDING Speciality: Acuity: Obs Enc Type: OB Triage Med Service: Obstetrics Arrival: 10/25/2023 23:36:04 Discharge: 10/26/2023 03:30:56 Dispo Type: Home (Routine DC) Address: [facility] [address] [facility] [id number] Provider Notes: Diagnosis: Problems Active (10/26/2023) Smoker [...] Referring Physician: Follow up: With: Address: When: [facility], [address] [place] [address] , [place] [address] [facility] (1) In 9 days 11/04/2023 Patient Education Information: and Urinary Tract Infection; Vaginal Bleeding During , Second Trimester; Back Pain in Normal [facility] Inpatient Patient Summaryon 10-26-2023 Inpatient Patient Summary [address] [address] Patient Discharge Instructions PERSON INFORMATION [...] test results: Follow up: With: Address: When: [facility], [address] [place] [address] , [place] [address] Business (1) In 9 days [...] included)... Normal [facility] Insurance Correspondenceon 0 10-26-2023 Insurance Correspondence [id number] 8#1.00TIFF Normal [facility] UA with Cult Rflxon 10-26-19 24 Bacteria Auto Ql (U) Trace Normal Trace Fish [facility] Comment on above: Performed By: #### 4 [id number] #### [facility] [address] [place] [address] Bilirubin Ql (U) Negative Normal Negative [facility] Comment on above: Performed By: #### 4 [id number] #### [facility] [address] [place] [address] Clarity (U) Turbid Abnormal Clear [facility] Comment on above: Performed By: #### 4 [id number] #### [facility] [address] [place] [address] Color (U) Yellow Normal Yellow [facility] Comment on above: Result Comment: Micr oscopic readings are only performed on those samples that meet specific criteria set forth by [facility]. Performed By: #### 4 [id number] #### [facility] [address] [place] [address] Epithelial cells.squamous Auto (Urine sed) [#/Area] 5-8 Abnormal 0-2 [facility] Comment on above: Performed By: #### 4 [id number] #### [facility] [address] [place] [address] Glucose Ql (U) Negative Normal Negative [facility] Comment on above: Performed By: #### 4 [id number] #### [facility] [address] [place] [address] Hemoglobin Auto test strip (U) [Mass/Vol] Negative Normal Negative [facility] Comment on above: Performed By: #### 4 [id number] #### [facility] [address] [place] [address] Hyaline casts LM Ql (Urine sed) 0-3 Normal 0-3 [facility] Comment on above: Performed By: #### 4 [id number] #### [facility] [address] [place] [address] Ketones Auto test strip Ql (U) Negative Normal Negative [facility] Comment on above: Performed By: #### 4 [id number] #### [facility] [address] [place] [address] Leukocyte esterase Auto test strip Ql (U) 500 Gerald/uL Abnormal Negative [facility] Comment on above: Performed By: #### 4 [id number] #### [facility] [address] [place] [address] Mucus Auto Ql (U) Trace Normal Negative [facility] Comment on above: Performed By: #### 4 [id number] #### [facility] [address] [place] [address] Nitrite Auto test strip Ql (U) Negative Normal Negative [facility] Comment on above: Performed By: #### 4 [id number] #### [facility] [address] [place] [address] pH (U) 6.0 [pH] Invalid Interpretation Code 5.0-9.0 [facility] Comment on above: Performed By: #### 4 [id number] #### [facility] [address] [place] [address] Protein Ql (U) Trace Abnormal Negative [facility] Comment on above: Performed By: #### 4 [id number] #### [facility] [address] [place] [address] RBC Ql (U) 4-20 Abnormal 0-3 [facility] Comment on above: Performed By: #### 4 [id number] #### [facility] [address] [place] [address] Specific gravity (U) [Rel density] 1.030 Invalid Interpretation Code 1.005-1.030 [facility] Comment on above: Performed By: #### 4 [id number] #### [facility] [address] [place] [address] Urobilinogen (U) [Mass/Vol] Negative Normal Negative [facility] Comment on above: Performed By: #### 4 [id number] #### [facility] [address] [place] [address] WBC Auto (Urine sed) [#/Area] 16-25 Abnormal 0-5 [facility] Comment on above: Performed By: #### 4 [id number] #### [facility] [address] [place] [address] Type of Urine collection method Clean Catch Normal [facility] Comment on above: Performed By: #### 4 [id number] #### [facility] [address] [place] [address] URINALYSISOrdered By: SYSTEM SYSTEM on 10-25-2023 Bacteria [...] forth by [facility]. Epithelial cells.squamous Auto (Urine sed) [#/Area] [...] 16-25 graded/HPF Invalid Interpretation Code 0-5graded/HP F [facility] UA Auto SS URINALYSISOrdered By: Elijah Hernandez on 10-25-2023 UA Spec Desc Clean Catch (10/25/23 11:53 PM) Normal [facility] UA Auto SS Urinalysis macro (dipstick) panel (U)on 07-17-2023 Bilirubin, UA Negative Negative - 4(70) +++ mg/dL [facility] Blood, UA Negative Negative - 50 William/mcL [facility] Clarity, UA Clear [facility] Color, UA Yellow [facility] Glucose, UA Negative Negative - 1999(110) ++++ mg/dL [facility] Interpretation and review of laboratory results Abnormal [facility] Ketones, UA Negative Negative - 160(16) ++++ mg/dL [facility] Leukocytes, UA Positive Negative - 500+++ Gerald/mcL [facility] Nitrite, UA Negative Negative - Positive [facility] pH, UA 7.0 5 - 9 [facility] Protein, UA Negative Negative - 1999(20) ++++ mg/dL [facility] Spec Grav, UA 1.020 1 - 1.03 [facility] Urobilinogen, UA 0.2 0.2 - 12 mg/dL [facility] HCG ( test) Ql (U)o n 07-03-2023 Interpretation and review of laboratory results Abnormal [facility] Preg Test, Ur Negative [facility] Urinalysis macro (dipstick) panel (U)on 07-03-2023 Bilirubin, UA Negative Negative - 4(70) +++ mg/dL [facility] Blood, UA Negative Negative - 50 William/mcL [facility] Clarity, UA Clear [facility] Color, UA Yellow [facility] Glucose, UA Negative Negative - 1999(110) ++++ mg/dL [facility] Interpretation and review of laboratory results Normal [facility] Ketones, UA Negative Negative - 160(16) ++++ mg/dL [facility] Leukocytes, UA Negative Negative - 500+++ Gerald/mcL [facility] Nitrite, UA Negative Negative - Positive [facility] pH, UA 5.5 5 - 9 [facility] Protein, UA Negative Negative - 1999(20) ++++ mg/dL [facility] Spec Grav, UA 1.010 1 - 1.03 [facility] Urobilinogen, UA 1.0 0.2 - 12 mg/dL [facility] XR FOOT RT MIN 3 VIEWSon [...] C BC #### [facility] [address] [place] [address] Dr. Jerald Poon Basophils/100 WBC (Bld) 0.3 % Normal 0.2-2.0 [facility] Comment on above: Performed By: #### C BC #### [facility] [address] [address] [address] Jerald Poon EO # 0.1 103/ul Normal 0.0-0.7 [facility] Comment on above: Performed By: #### C BC #### [facility] [address] [place] [address] Dr. Jerald Poon Eosinophils/100 WBC (Bld) 1.1 % Normal 0.9-7.0 [facility] Comment on above: Performed By: #### C BC #### [facility] [address] [place] [address] Dr. Jerald Poon Erythrocyte distribution width (RBC) [Ratio] 14.5 % Normal 11.0-15.0 [facility] Comment on above: Performed By: #### C BC #### [facility] [address] [place] [address] Dr. Jerald Poon Hematocrit (Bld) [Volume fraction] 36.7 % Normal 36.0-48.0 [facility] Comment on above: Performed By: #### C BC #### [facility] [address] [place] [address] Dr. Jerald Poon Hemoglobin (Bld) [Mass/Vol] 13.0 g/dL Normal 12.0-16.0 [facility] Comment on above: Performed By: #### C BC #### [facility] [address] [place] [address] Dr. Jerald Poon IG # 0.04 10e3/ul Critically high 0.00-0.03 [facility] Comment on above: Performed By: #### C BC #### [facility] [address] [place] [address] Dr. Jerald Poon IG % 0.3 % Normal 0.0-0.5 [facility] Comment on above: Performed By: #### C BC #### [facility] [address] [place] [address] Dr. Jerald Poon LYMPH # 3.0 103/ul Normal 1.2-3.8 [facility] Comment on above: Performed By: #### C BC #### [facility] [address] [place] [address] Dr. Jerald Poon Lymphocytes/100 WBC (Bld) 26.2 % Normal 20.5-60.0 [facility] Comment on above: Performed By: #### C BC #### [facility] [address] [place] [address] Dr. Jerald Poon MANUAL DIFF REQ NO Normal [facility] Comment on above: Performed By: #### C BC #### [facility] [address] [place] [address] Dr. Jerald Poon MCH (RBC) [Entitic mass] 27.1 pg Normal 26.7-34.0 [facility] Comment on above: Performed By: #### C BC #### [facility] [address] [address] [address] Jerald Poon MCHC (RBC) [Mass/Vol] 35.4 g/dL Critically high 29.9-35.2 [facility] Comment on above: Performed By: #### C BC #### [facility] [address] [address] [address] Jerald Poon MCV (RBC) [Entitic vol] 76.6 fL Critically low 81.0-99.0 [facility] Comment on above: Performed By: #### C BC #### [facility] [address] [place] [address] Dr. Jerald Poon MONO # 0.8 103/ul Normal 0.3-0.8 [facility] Comment on above: Performed By: #### C BC #### [facility] [address] [place] [address] Dr. Jerald Poon Monocytes/100 WBC (Bld) 7.0 % Normal 1.7-12.0 [facility] Comment on above: Performed By: #### C BC #### [facility] [address] [place] [address] Dr. Jerald Poon NEUT # 7.5 103/ul Critically high 1.4-6.5 [facility] Comment on above: Performed By: #### C BC #### [facility] [address] [place] [address] Dr. Jerald Poon Neutrophils/100 WBC (Bld) 65.1 % Normal 43.0-75.0 [facility] Comment on above: Performed By: #### C BC #### [facility] [address] [address] [address] Jerald Poon Platelet mean volume (Bld) [Entitic vol] 10.0 fL Normal 9.5-13.5 [facility] Comment on above: Performed By: #### C BC #### [facility] [address] [place] [address] Dr. Jerald Poon PLT 387 103/ul Normal 150-450 [facility] Comment on above: Performed By: #### C BC #### [facility] [address] [place] [address] Dr. Jerald Poon RBC 4.79 106/ul Normal 4.20-5.40 [facility] Comment on above: Performed By: #### C BC #### [facility] [address] [place] [address] Dr. Jerald Poon WBC 11.6 103/ul Critically high 4.0-11.0 [facility] Comment on above: Performed By: #### C BC #### [facility] [address] [place] [address] Dr. Jerald Poon CULTURE URINEon 06-28-2022 CULTURE URINE Culture Observations: LIGHT GROWTH OF MIXED GENITAL ZACARIAS. NO POTENTIAL PATHOGENS SEEN. Normal [facility] Comment on above: Performed By: #### U RCX #### [facility] [address] [place] [address] Dr. Jerald Poon ER URINE PROFILEon 3 Bilirubin Ql (U) Negative Normal NEGATIVE [facility] Comment on above: Performed By: #### U MICRO, ERUR #### [facility] [address] [place] [address] Dr. Jerald Poon Clarity (U) CLEAR Normal CLEAR [facility] Comment on above: Performed By: #### U MICRO, ERUR #### [facility] [address] [place] [address] Dr. Jerald Poon Color (U) YELLOW Normal YELLOW [facility] Comment on above: Performed By: #### U MICRO, ERUR #### [facility] [address] [place] [address] Dr. Jerald CEBALLOS A micrscopic examination will be performed if indicated. Normal [facility] Comment on above: Performed By: #### U MICRO, ERUR #### [facility] [address] [place] [address] Dr. Jerald Poon Glucose Ql (U) Negative Normal NEGATIVE [facility] Comment on above: Performed By: #### U MICRO, ERUR #### [facility] [address] [address] [address] Jerald Poon Hemoglobin Ql (U) Negative Normal NEGATIVE [facility] Comment on above: Performed By: #### U MICRO, ERUR #### [facility] [address] [address] [address] Jerald Poon Ketones Ql (U) 40 mg/dl Abnormal NEGATIVE [facility] Comment on above: Performed By: #### U MICRO, ERUR #### [facility] [address] [address] [address] Jerald Poon LEUKOCYTES TRACE Abnormal NEGATIVE [facility] Comment on above: Performed By: #### U MICRO, ERUR #### [facility] [address] [place] [address] Dr. Jerald Poon Nitrite Ql (U) Negative Normal NEGATIVE [facility] Comment on above: Performed By: #### U MICRO, ERUR #### [facility] [address] [place] [address] Dr. Jerald Poon pH (U) 6.0 [pH] Normal 5-9 [facility] Comment on above: Performed By: #### U MICRO, ERUR #### [facility] [address] [place] [address] Dr. Jerald Poon SPEC GRAVITY >=1.030 Abnormal 1.005-<=1.[address] [facility] Comment on above: Performed By: #### U MICRO, ERUR #### [facility] [address] [place] [address] Dr. Jerald Poon UA PROTEIN Negative Normal NEGATIVE/ TRACE [facility] Comment on above: Performed By: #### U MICRO, ERUR #### [facility] [address] [place] [address] Dr. Jerald Poon UR MICRO IND INDICATED Normal [facility] Comment on above: Performed By: #### U MICRO, ERUR #### [facility] [address] [place] [address] Dr. Jerald Poon Urobilinogen Qn (U) 0.2 {Lyly'U}/dL Normal 0.2 - 1. 0 [facility] Comment on above: Performed By: #### U MICRO, ERUR #### [facility] [address] [place] [address] Dr. Jerald Poon PREG QUANT HCGon 06-28-2022 HCG QUANT <[address] [facility] Comment on above: Performed By: #### P REGQNT #### [facility] [address] [place] [address] Dr. Jerald Poon HCG RANGE SEE BELOW Normal [facility] Comment on above: Result Comment: 5-50 0.2-1 WEEK 50-500 1-2 WEEKS 100-5,000 2-3 WEEKS 500-10,000 3-4 WEEKS 1,000-50,000 4-5 WEEKS 10,000-100,000 5-6 WEEKS 15,000-200,000 6-8 WEEKS 10,000-100,000 2-3 MONTHS Performed By: #### P REGQNT #### [facility] [address] [place] [address] Dr. Jerald Pono PROF CHEM 8 (BAS METB)on Anion gap [Moles/Vol] 14.0 mmol/L Normal [facility] Comment on above: Performed By: #### C BC #### [facility] [address] [place] [address] Dr. Jerald Poon Calcium [Mass/Vol] 9.6 mg/dL Normal 8.5-10.1 [facility] Comment on above: Performed By: #### C BC #### [facility] [address] [place] [address] Dr. Jerald Poon Chloride [Moles/Vol] 101 mmol/L Normal 98-107 [facility] Comment on above: Performed By: #### C BC #### [facility] [address] [place] [address] Dr. Jerald Poon CO2 [Moles/Vol] 25.4 mmol/L Normal 21.0-32.0 [facility] Comment on above: Performed By: #### C BC #### [facility] [address] [place] [address] Dr. Jerald Poon Creatinine [Mass/Vol] 0.92 mg/dL Normal 0.55-1.02 [facility] Comment on above: Performed By: #### C BC #### [facility] [address] [place] [address] Dr. Jerald Poon EGFR-AF POLISH >60 Normal >=60 [facility] Comment on above: Performed By: #### C BC #### [facility] [address] [address] [address] Jerald Poon EGFR-NON AF POLISH >60 Normal >=60 [facility] Comment on above: Performed By: #### C BC #### [facility] [address] [place] [address] Dr. Jerald Poon Glucose [Mass/Vol] 101 mg/dL Normal 74-106 [facility] Comment on above: Performed By: #### C BC #### [facility] [address] [place] [address] Dr. Jerald Poon Potassium [Moles/Vol] 3.4 mmol/L Critically low 3.5-5.1 [facility] Comment on above: Performed By: #### C BC #### [facility] [address] [place] [address] Dr. Jerald Poon Sodium [Moles/Vol] 137 mmol/L Normal 136-145 [facility] Comment on above: Performed By: #### C BC #### [facility] [address] [place] [address] Dr. Jerald Poon Urea nitrogen [Mass/Vol] 11.0 mg/dL Normal 7.0-18.0 [facility] Comment on above: Performed By: #### C BC #### [facility] [address] [place] [address] Dr. Jerald Poon Urea nitrogen/Creatinine [Mass ratio] 12.0 mg/mg Normal [facility] Comment on above: Performed By: #### C BC #### [facility] [address] [place] [address] Dr. Jerald Poon TSHon 01-27-2023 TSH 1.319 uIU/mL Normal 0.358-3.740 [facility] Comment on above: Performed By: #### C BC #### [facility] [address] [place] [address] Dr. Jerald Poon URINE MICROSCOPIC ONLYon BACTERIA SMALL Abnormal NONE SEEN [facility] Comment on above: Performed By: #### U MICRO, ERUR #### [facility] [address] [place] [address] Dr. Jerald Poon Bacteria identified Cx Nom (U) INDICATED Normal [facility] Comment on above: Performed By: #### U MICRO, ERUR #### [facility] [address] [place] [address] Dr. Jerald Poon CAST NONE SEEN Normal NONE SEEN [facility] Comment on above: Performed By: #### U MICRO, ERUR #### [facility] [address] [place] [address] Dr. Jerald Poon Crystals LM Nom (Urine sed) NONE SEEN Normal NONE SEEN [facility] Comment on above: Performed By: #### U MICRO, ERUR #### [facility] [address] [place] [address] Dr. Jerald Poon Epithelial cells LM Ql (Urine sed) FEW Abnormal NONE SEEN /RARE [facility] Comment on above: Performed By: #### U MICRO, ERUR #### [facility] [address] [place] [address] Dr. Jerald Poon MUCOUS NONE SEEN Normal NONE SEEN [facility] Comment on above: Performed By: #### U MICRO, ERUR #### [facility] [address] [place] [address] Dr. Jerald Poon RBC NONE SEEN Abnormal 0-2 [facility] Comment on above: Performed By: #### U MICRO, ERUR #### [facility] [address] [place] [address] Dr. Jerald Poon WBC 2-[address] [facility] Comment on above: Performed By: #### U MICRO, ERUR #### [facility] [address] [place] [address] Dr. Jerald Poon CBC AUTO DIFFon 04-01-2022 BASO # 0.0 103/ul Normal 0.0-0.1 [facility] Comment on above: Performed By: #### C BC #### [facility] [address] [place] [address] Dr. Jerald Poon Basophils/100 WBC (Bld) 0.5 % Normal 0.2-2.0 [facility] Comment on above: Performed By: #### C BC #### [facility] [address] [place] [address] Dr. Jerald Poon EO # 0.1 103/ul Normal 0.0-0.7 [facility] Comment on above: Performed By: #### C BC #### [facility] [facility] [address] [place] [address] Dr. Jerald Poon Eosinophils/100 WBC (Bld) 1.7 % Normal 0.9-7.0 [facility] Comment on above: Performed By: #### C BC #### [facility] [address] [place] [address] Dr. Jerald Poon Erythrocyte distribution width (RBC) [Ratio] 14.2 % Normal 11.0-15.0 [facility] Comment on above: Performed By: #### C BC #### [facility] [address] [place] [address] Dr. Jerald Poon Hematocrit (Bld) [Volume fraction] 36.7 % Normal 36.0-48.0 [facility] Comment on above: Performed By: #### C BC #### [facility] [address] [place] [address] Dr. Jerald Poon Hemoglobin (Bld) [Mass/Vol] 12.1 g/dL Normal 12.0-16.0 [facility] Comment on above: Performed By: #### C BC #### [facility] [address] [place] [address] Dr. Jerald Poon IG # 0.01 10e3/ul Normal 0.00-0.03 [facility] Comment on above: Performed By: #### C BC #### [facility] [address] [place] [address] Dr. Jerald Poon IG % 0.1 % Normal 0.0-0.5 [facility] Comment on above: Performed By: #### C BC #### [facility] [address] [place] [address] Dr. Jerald Poon LYMPH # 2.3 103/ul Normal 1.2-3.8 [facility] Comment on above: Performed By: #### C BC #### [facility] [address] [place] [address] Dr. Jerald Poon Lymphocytes/100 WBC (Bld) 30.8 % Normal 20.5-60.0 [facility] Comment on above: Performed By: #### C BC #### [facility] [address] [place] [address] Dr. Jerald Poon MANUAL DIFF REQ NO Normal [facility] Comment on above: Performed By: #### C BC #### [facility] [address] [place] [address] Dr. Jerald Poon MCH (RBC) [Entitic mass] 27.3 pg Normal 26.7-34.0 [facility] Comment on above: Performed By: #### C BC #### [facility] [address] [place] [address] Dr. Jerald Poon MCHC (RBC) [Mass/Vol] 33.0 g/dL Normal 29.9-35.2 [facility] Comment on above: Performed By: #### C BC #### [facility] [address] [place] [address] Dr. Jerald Poon MCV (RBC) [Entitic vol] 82.7 fL Normal 81.0-99.0 [facility] Comment on above: Performed By: #### C BC #### [facility] [address] [place] [address] Dr. Jerald Poon MONO # 0.8 103/ul Normal 0.3-0.8 [facility] Comment on above: Performed By: #### C BC #### [facility] [address] [place] [address] Dr. Jerald Poon Monocytes/100 WBC (Bld) 10.6 % Normal 1.7-12.0 [facility] Comment on above: Performed By: #### C BC #### [facility] [address] [place] [address] Dr. Jerald Poon NEUT # 4.2 103/ul Normal 1.4-6.5 [facility] Comment on above: Performed By: #### C BC #### [facility] [address] [place] [address] Dr. Jerald Poon Neutrophils/100 WBC (Bld) 56.3 % Normal 43.0-75.0 [facility] Comment on above: Performed By: #### C BC #### [facility] [address] [place] [address] Dr. Jerald Poon Platelet mean volume (Bld) [Entitic vol] 10.2 fL Normal 9.5-13.5 [facility] Comment on above: Performed By: #### C BC #### [facility] [address] [place] [address] Dr. Jerald Poon PLT 375 103/ul Normal 150-450 [facility] Comment on above: Performed By: #### C BC #### [facility] [address] [place] [address] Dr. Jerald Poon RBC 4.44 106/ul Normal 4.20-5.40 [facility] Comment on above: Performed By: #### C BC #### [facility] [address] [place] [address] Dr. Jerald Poon WBC 7.5 103/ul Normal 4.0-11.0 [facility] Comment on above: Performed By: #### C BC #### [facility] [address] [place] [address] Dr. Jerald Poon ER URINE PROFILEon 2 Bilirubin Ql (U) Negative Normal NEGATIVE [facility] Comment on above: Performed By: #### C BC #### [facility] [address] [place] [address] Dr. Jerald Poon Clarity (U) CLEAR Normal CLEAR [facility] Comment on above: Performed By: #### C BC #### [facility] [address] [place] [address] Dr. Jerald Poon Color (U) YELLOW Normal YELLOW [facility] Comment on above: Performed By: #### C BC #### [facility] [address] [place] [address] Dr. Jerald CEBALLOS A micrscopic examination will be performed if indicated. Normal [facility] Comment on above: Performed By: #### C BC #### [facility] [address] [place] [address] Dr. Jerald Poon Glucose Ql (U) Negative Normal NEGATIVE [facility] Comment on above: Performed By: #### C BC #### [facility] [address] [place] [address] Dr. Jerald Poon Hemoglobin Ql (U) Negative Normal NEGATIVE [facility] [place] Comment on above: Performed By: #### C BC #### [facility] [address] [place] [address] Dr. Jerald Poon Ketones Ql (U) Negative Normal NEGATIVE [facility] Comment on above: Performed By: #### C BC #### [facility] [address] [place] [address] Dr. Jerald Poon LEUKOCYTES Negative Normal NEGATIVE [facility] Comment on above: Performed By: #### C BC #### [facility] [address] [place] [address] Dr. Jerald Poon Nitrite Ql (U) Negative Normal NEGATIVE [facility] Comment on above: Performed By: #### C BC #### [facility] [address] [place] [address] Dr. Jerald Poon pH (U) 7.0 [pH] Normal 5-9 [facility] Comment on above: Performed By: #### C BC #### [facility] [address] [place] [address] Dr. Jerald Poon SPEC GRAVITY 1.025 Normal 1.005-<=1.[address] [facility] Comment on above: Performed By: #### C BC #### [facility] [address] [place] [address] Dr. Jerald Poon UA PROTEIN Negative Normal NEGATIVE/ TRACE [facility] Comment on above: Performed By: #### C BC #### [facility] [address] [place] [address] Dr. Jerald Poon UR MICRO IND NOT INDICATED Normal [facility] Comment on above: Performed By: #### C BC #### [facility] [address] [place] [address] Dr. Jerald Poon Urobilinogen Qn (U) 1.0 {Lyly'U}/dL Normal 0.2 - 1. 0 [facility] Comment on above: Performed By: #### C BC #### [facility] [address] [place] [address] Dr. Jerald Poon PREG QUANT HCGon 04-01-2022 HCG QUANT 1 mIU/mL Normal [facility] Comment on above: Performed By: #### P REGQNT #### [facility] [address] [place] [address] Dr. Jerald Poon HCG RANGE SEE BELOW Normal [facility] Comment on above: Result Comment: 5-50 0.2-1 WEEK 50-500 1-2 WEEKS 100-5,000 2-3 WEEKS 500-10,000 3-4 WEEKS 1,000-50,000 4-5 WEEKS 10,000-100,000 5-6 WEEKS 15,000-200,000 6-8 WEEKS 10,000-100,000 2-3 MONTHS Performed By: #### P REGQNT #### [facility] [address] [place] [address] Dr. Jerald Poon PROF 14(COMP METB)on 022 Albumin [Mass/Vol] 3.6 g/dL Normal 3.4-5.0 [facility] Comment on above: Performed By: #### C MP #### [facility] [address] [place] [address] Dr. Jerald Poon Albumin/Globulin [Mass ratio] 0.8 {ratio} Normal [facility] Comment on above: Performed By: #### C MP #### [facility] [address] [place] [address] Dr. Jerald Poon ALP [Catalytic activity/Vol] 65 U/L Normal 46-116 [facility] Comment on above: Performed By: #### C MP #### [facility] [address] [place] [address] Dr. Jerald Poon ALT [Catalytic activity/Vol] 22 U/L Normal 14-59 [facility] Comment on above: Performed By: #### C MP #### [facility] [address] [address] [address] Jerald Poon Anion gap [Moles/Vol] 10.3 mmol/L Normal [facility] Comment on above: Performed By: #### C MP #### [facility] [address] [place] [address] Dr. Jerald Poon AST [Catalytic activity/Vol] 14 U/L Critically low 15-37 [facility] Comment on above: Performed By: #### C MP #### [facility] [address] [place] [address] Dr. Jerald Poon Bilirubin [Mass/Vol] 0.1 mg/dL Critically low 0.2-1.0 [facility] Comment on above: Performed By: #### C MP #### [facility] [address] [place] [address] Dr. Jerald Poon Calcium [Mass/Vol] 8.6 mg/dL Normal 8.5-10.1 [facility] Comment on above: Performed By: #### C MP #### [facility] [address] [place] [address] Dr. Jerald Poon Chloride [Moles/Vol] 104 mmol/L Normal 98-107 [facility] Comment on above: Performed By: #### C MP #### [facility] [address] [address] [address] Jerald Poon CO2 [Moles/Vol] 28.1 mmol/L Normal 21.0-32.0 [facility] Comment on above: Performed By: #### C MP #### [facility] [address] [address] [address] Jerald Poon Creatinine [Mass/Vol] 0.99 mg/dL Normal 0.55-1.02 [facility] Comment on above: Performed By: #### C MP #### [facility] [address] [address] [address] Jerald Poon EGFR-AF POLISH >60 Normal >=[address] [facility] Comment on above: Performed By: #### C MP #### [facility] [address] [address] [address] Jerald Poon EGFR-NON AF POLISH >60 Normal >=60 [facility] Comment on above: Performed By: #### C MP #### [facility] [address] [address] [address] Jerald Poon Globulin (S) [Mass/Vol] 4.5 g/dL Normal [facility] Comment on above: Performed By: #### C MP #### [facility] [address] [place] [address] Dr. Jerald Poon Glucose [Mass/Vol] 94 mg/dL Normal 74-106 [facility] Comment on above: Performed By: #### C MP #### [facility] [address] [address] [address] Jerald Poon Potassium [Moles/Vol] 3.4 mmol/L Critically low 3.5-5.1 [facility] Comment on above: Performed By: #### C MP #### [facility] [address] [place] [address] Dr. Jerald Poon Protein [Mass/Vol] 8.1 g/dL Normal 6.4-8.2 [facility] Comment on above: Performed By: #### C MP #### [facility] [address] [address] [address] Jerald Poon Sodium [Moles/Vol] 139 mmol/L Normal 136-145 [facility] Comment on above: Performed By: #### C MP #### [facility] [address] [address] [address] Jerald Poon Urea nitrogen [Mass/Vol] 8.0 mg/dL Normal 7.0-18.0 [facility] Comment on above: Performed By: #### C MP #### [facility] [address] [place], [place] [address] Dr. Jerald Poon Urea nitrogen/Creatinine [Mass ratio] 8.1 mg/mg Normal [facility] Comment on above: Performed By: #### C MP #### [facility] [address] [place], [place] [address] Dr. Jerald Poon US PELVIS TRANSVAGon 022 [...] RBC Auto (Urine sed) [#/Area] 1-2 [HPF] [facility] Automated leukocytes count i n urine sediment (number/area)Ordered By: Anders eSsay on 10-19-2021 WBC Auto (Urine sed) [#/Area] 3-4 [HPF] [facility] Basophils Auto (Bld) [#/Vol] Ordered By: Anders Sesay on 10-19-2021 Basophils (Bld) [#/Vol] 0.1 10*3/uL 0.0-0.2 [facility] Basophils/100 WBC Auto (Bld) Ordered By: Anders Sesay on 10-19-2021 Basophils/100 WBC (Bld) 0.6 % [facility] Bilirubin Test strip Ql (U)O rdered By: Anders Sesay on 10-19-2021 Bilirubin Ql (U) Negative Negative [facility] Blood hemoglobin measurement (mass/volume)Ordered By: Anders Sesay on 10-19-2021 Hemoglobin (Bld) [Mass/Vol] 13.2 g/dL 11.8-15.4 [facility] Blood leukocytes automated c ount (number/volume)Ordered By: Anders Sesay on 10-19-2021 WBC (Bld) [#/Vol] 9.1 10*3/uL 4.5-11.0 [facility] Body fluid albumin measureme nt (mass/volume)Ordered By: Anders Sesay on 10-19-2021 Albumin (Body fld) [Mass/Vol] 3.8 g/dL 3.2-5.5 [facility] Color Auto (U)Ordered By: Jason Sesay on 10-19-2021 Color (U) Yellow Yellow [facility] Creatinine and Glomerular fi ltration rate.predicted panel (S/P/Bld)Ordered By: Anders Sesay on 10-19-2021 Creatinine [Mass/Vol] 0.87 mg/dL 0.44-1.03 [facility] Eosinophils Auto (Bld) [#/Vo l]Ordered By: Anders Sesay on 10-19-2021 Eosinophils (Bld) [#/Vol] 0.1 10*3/uL 0.0-0.45 [facility] Eosinophils/100 WBC Auto (Bl d)Ordered By: Anders Sesay on 10-19-2021 Eosinophils/100 WBC (Bld) 0.9 % [facility] Erythrocyte distribution wid th Auto (RBC) [Ratio]Ordered By: Anders Sesay on 10-19-2021 Erythrocyte distribution width (RBC) [Ratio] 16.4 % 11.9-15.3 [facility] Estimated glomerular filtrat ion rate (GFR) non- AmericanOrdered By: Anders Sesay on 10-19-2021 GFR/1.73 sq M.predicted among non-blacks MDRD (S/P/Bld) [Vol rate/Area] > 60 mL/Min [facility] Globulin Calc (S) [Mass/Vol] Ordered By: Anders Sesay on 10-19-2021 Globulin (S) [Mass/Vol] 4.3 g/dL [facility] HCG ( test) IA.rapi d Ql (U)Ordered By: Anders Sesay on 10-19-2021 HCG ( test) Ql (U) Negative [facility] Hematocrit Auto (Bld) [Volum e fraction]Ordered By: Anders Sesay on 10-19-2021 Hematocrit (Bld) [Volume fraction] 40.2 % 34.0-46.4 [facility] Ketones Auto test strip (U) [Mass/Vol]Ordered By: Anders Sesay on 10-19-2021 Ketones (U) [Mass/Vol] Negative Negative [facility] - Hematology and Cell countsOrdered By: Anders Sesay on 10-19-2021 Nucleated RBC/100 WBC (Bld) [Ratio] 0.2 % 0-0.5 [facility] - UrinalysisOrder ed By: Anders Sesay on 10-19-2021 Hyaline casts LM Ql (Urine sed) 0-8 [LPF] [facility] Lymphocytes Auto (Bld) [#/Vo l]Ordered By: Anders Sesay on 10-19-2021 Lymphocytes (Bld) [#/Vol] 2.4 10*3/uL 1.00-4.8 [facility] Lymphocytes/100 WBC Auto (Bl d)Ordered By: Anders Sesay on 10-19-2021 Lymphocytes/100 WBC (Bld) 26.7 % [facility] MCH Auto (RBC) [Entitic mass ]Ordered By: Anders Sesay on 10-19-2021 MCH (RBC) [Entitic mass] 26.3 pg 24.7-34.3 [facility] MCHC Auto (RBC) [Mass/Vol]Or dered By: Anders Sesay on 10-19-2021 MCHC (RBC) [Mass/Vol] 32.9 g/dL 32.0-35.0 [facility] MCV Auto (RBC) [Entitic vol] Ordered By: Anders Sesay on 10-19-2021 MCV (RBC) [Entitic vol] 80.1 fL 80-100 [facility] Monocytes Auto (Bld) [#/Vol] Ordered By: Anders Sesay on 10-19-2021 Monocytes (Bld) [#/Vol] 0.7 10*3/uL 0.0-0.8 [facility] Monocytes/100 WBC Auto (Bld) Ordered By: Anders Sesay on 10-19-2021 Monocytes/100 WBC (Bld) 7.6 % [facility] Neutrophils Auto (Bld) [#/Vo l]Ordered By: Anders Sesay on 10-19-2021 Neutrophils (Bld) [#/Vol] 5.8 10*3/uL 1.8-7.7 [facility] Neutrophils/100 WBC Auto (Bl d)Ordered By: Anders Sesay on 10-19-2021 Neutrophils/100 WBC (Bld) 64.2 % [facility] Nitrite Test strip Ql (U)Ord ered By: Anders Sesay on 10-19-2021 Nitrite Ql (U) Negative Negative [facility] No Panel InformationOrdered By: Anders Sesay on 10-19-2021 Estimated GFR () > 60 mL/Min [facility] Comment on above: GFR estimated refere nce range: According to KDOQI guidelines, <60 ml/min/1.73m2 is sufficient to diagnose a patient with chronic kidney disease. Pharmacy Creatinine Clearance (Chem 147.41 [facility] Platelet mean volume Auto (B ld) [Entitic vol]Ordered By: Anders Sesay on 10-19-2021 Platelet mean volume (Bld) [Entitic vol] 8.6 fL 6.3-10.7 [facility] Platelets Auto (Bld) [#/Vol] Ordered By: Anders Sesay on 10-19-2021 Platelets (Bld) [#/Vol] 395 10*3/uL 150-450 [facility] Protein Auto test strip (U) [Mass/Vol]Ordered By: Anders Sesay on 10-19-2021 Protein (U) [Mass/Vol] Negative Negative [facility] Protein [Mass/volume] in Ser um or PlasmaOrdered By: Anders Sesay on 10-19-2021 Protein [Mass/Vol] 8.1 g/dL 6.1-7.9 [facility] RBC Auto (Bld) [#/Vol]Ordere d By: Anders Sesay on 10-19-2021 RBC (Bld) [#/Vol] 5.02 10*6/uL 3.60-5.00 [facility] Serum or plasma alanine ayoub otransferase measurement without P-5'-P (enzymatic activiOrdered By: Anders Sesay on 10-19-2021 ALT No additional P-5'-P [Catalytic activity/Vol] 20 U/L 10-60 [facility] Serum or plasma albumin/glob ulin mass ratioOrdered By: Anders Sesay on 10-19-2021 Albumin/Globulin [Mass ratio] 0.9 {ratio} [facility] Serum or plasma alkaline cosmo sphatase measurement (enzymatic activity/volume)Ordered By: Anders Sesay on 10-19-2021 ALP [Catalytic activity/Vol] 55 U/L 32-92 [facility] Serum or plasma aspartate am inotransferase measurement (enzymatic activity/volume)Ordered By: Anders Sesay on 10-19-2021 AST [Catalytic activity/Vol] 17 U/L 10-42 [facility] Serum or plasma calcium joann urement (mass/volume)Ordered By: Anders Sesay on 10-19-2021 Calcium [Mass/Vol] 9.1 mg/dL 8.2-10.2 [facility] Serum or plasma chloride adan surement (moles/volume)Ordered By: Anders Sesay on 10-19-2021 Chloride [Moles/Vol] 103 mmol/L 95-114 [facility] Serum or plasma glucose joann urement (mass/volume)Ordered By: Anders Sesay on 10-19-2021 Glucose [Mass/Vol] 105 mg/dL 70-100 [facility] Comment on above: ADA recommended refe rence range Random Glucose Reference Range is dependent on time and content of last meal. Glucose of more than 200 mg/dL in a nonstressed, ambulatory subject supports the diagnosis of Diabetes Mellitus. Serum or plasma potassium me asurement (moles/volume)Ordered By: Anders Sesay on 10-19-2021 Potassium [Moles/Vol] 3.7 mmol/L 3.5-5.1 [facility] Serum or plasma sodium measu rement (moles/volume)Ordered By: Anders Sesay on 10-19-2021 Sodium [Moles/Vol] 137 mmol/L 136-146 [facility] Serum or plasma total biliru bin measurement (mass/volume)Ordered By: Anders Sesay on 10-19-2021 Bilirubin [Mass/Vol] 0.3 mg/dL 0.3-1.2 [facility] Serum or plasma total carbon dioxide measurement (moles/volume)Ordered By: Anders Sesay on 10-19-2021 CO2 [Moles/Vol] 24.2 mmol/L 22.0-30.0 [facility] Serum or plasma urea nitroge n measurement (mass/volume)Ordered By: Anders Sesay on 10-19-2021 Urea nitrogen [Mass/Vol] 7 mg/dL 9-23 [facility] Specific gravity Auto test s trip (U) [Rel density]Ordered By: Anders Sesay on 10-19-2021 Specific gravity (U) [Rel density] 1.014 1.001-1.030 [facility] Squamous epithelial cells de tection in urine sediment by light microscopyOrdered By: Anders Sesay on 10-19-2021 Epithelial cells.squamous LM Ql (Urine sed) 3-4 [HPF] [facility] Urine bacteria detection by automated methodOrdered By: Anders Sesay on 10-19-2021 Bacteria Auto Ql (U) 1+ None Seen [facility] Urine clarity by refractomet ry automatedOrdered By: Anders Sesya on 10-19-2021 Clarity Refractometry automated (U) Clear Clear [facility] Urine glucose measurement by automated test strip (mass/volume)Ordered By: Anders Sesay on 10-19-2021 Glucose Auto test strip (U) [Mass/Vol] Normal mg/dL Normal [facility] Urine hemoglobin detection b y automated test stripOrdered By: Anders Sesay on 10-19-2021 Hemoglobin Auto test strip Ql (U) Negative Negative [facility] Urine leukocyte esterase det ection by automated test stripOrdered By: Anders Sesay on 10-19-2021 Leukocyte esterase Auto test strip Ql (U) 1+ Negative [facility] Urobilinogen Auto test strip (U) [Mass/Vol]Ordered By: Anders Sesay on 10-19-2021 Urobilinogen (U) [Mass/Vol] Normal mg/dL Normal [facility] pH Auto test strip (U)Ordere d By: Anders Sesay on 10-19-2021 pH (U) 5.5 [pH] 5.0-9.0 [facility] US DUP ABD PEL RETRO SCROT [...] MD 07/14/20 Edited Result - FINAL Normal [facility] US NON OB TRANSVAGINALon US NON [...] MD 07/14/20 Edited Result - FINAL Normal [facility] Chlamydia/GC,DNA Ampon 07-10 Chlamydia Probe Negative Normal NEG [facility] Comment on above: Result Comment: CHLA [...] Performed By: #### U HCG, UAMIC #### [facility] [address] [place], [place] [id number] Ostomy Care Nurse: Campos Avilez MD Gonorrhea Probe Negative Normal NEG [facility] Comment on above: Result Comment: NEIS [...] Performed By: #### U HCG, UAMIC #### [facility] [address] [place], [place] [id number] Ostomy Care Nurse: Campos Avilez MD Cult,Urineon 07-09-2020 Cult,Urine Specimen Description .CLEAN CATCH URINE Special Requests NOT REPORTED Culture ESCHERICHIA COLI >[id number] CFU/ML Report Status FINAL 07/09/2020 SUSCEPTIBILITY Organism [...] <=20 SUSCEPTIBLE Piperacillin/Tazobac her <=4 SUSCEPTIBLE Normal [facility] Comment on above: Performed By: #### U HCG, UAMIC #### [place] [address] Ostomy Care Nurse: Campos Avilez MD ABO/Rh(D)on 07-08-2020 ABO/Rh(D) Positive Normal [facility] Comment on above: Performed By: #### A [facility] #### [place] [address] Ostomy Care Nurse: Campos Avilez MD CBC with Diffon 07-08-2020 Abs. Basophil 0.04 k/uL Normal 0.00-0.20 [facility] Comment on above: Performed By: #### C P, CDP, COSMO, BHCG, MG, VD25, LIP #### [place] [address] Ostomy Care Nurse: Campos Avilez MD Abs.Imm.Granulocyte 0.04 k/uL Normal 0.00-0.30 [facility] Comment on above: Performed By: #### C P, CDP, COSMO, BHCG, MG, VD25, LIP #### [facility] [employer] [address] [place] [address] Ostomy Care Nurse: Campos Avilez MD Abs.Neutrophil (Seg) 8.16 k/uL High 1.80-8.00 [facility] Comment on above: Performed By: #### C P, CDP, COSMO, BHCG, MG, VD25, LIP #### [address] [address] Ostomy Care Nurse: Campos Avilez MD Basophils/100 WBC (Bld) 0 % Normal 0-2 [facility] Comment on above: Performed By: #### C P, CDP, COSMO, BHCG, MG, VD25, LIP #### [address] [address] Ostomy Care Nurse: Campos Avilez MD Eosinophils (Bld) [#/Vol] 0.10 10*3/uL Normal 0.00-0.44 [facility] Comment on above: Performed By: #### C P, CDP, COSMO, BHCG, MG, VD25, LIP #### [address] [address] Ostomy Care Nurse: Campos Avilez MD Eosinophils/100 WBC (Bld) 1 % Normal 1-4 [facility] Comment on above: Performed By: #### C P, CDP, COSMO, BHCG, MG, VD25, LIP #### [address] [address] Ostomy Care Nurse: Campos Avilez MD Erythrocyte distribution width (RBC) [Ratio] 14.0 % Normal 11.8-14.4 [facility] Comment on above: Performed By: #### C P, CDP, COSMO, BHCG, MG, VD25, LIP #### [address] [address] Ostomy Care Nurse: Campos Avilez MD Hematocrit (Bld) [Volume fraction] 34.3 % Low 36.3-47.1 [facility] Comment on above: Performed By: #### C P, CDP, COSMO, BHCG, MG, VD25, LIP #### [address] [address] Ostomy Care Nurse: Campos Avilez MD Hemoglobin (Bld) [Mass/Vol] 11.1 g/dL Low 11.9-15.1 [facility] Comment on above: Performed By: #### C P, CDP, COSMO, BHCG, MG, VD25, LIP #### [address] [address] Ostomy Care Nurse: Campos Avilez MD Immature granulocytes (Bld) [#/Vol] 0 % Normal 0 [facility] Comment on above: Performed By: #### C P, CDP, COSMO, BHCG, MG, VD25, LIP #### [place] [address] Ostomy Care Nurse: Campos Avilez MD Lymphocytes (Bld) [#/Vol] 1.77 10*3/uL Normal 1.20-5.20 [facility] Comment on above: Performed By: #### C P, CDP, COSMO, BHCG, MG, VD25, LIP #### [place] [address] Ostomy Care Nurse: Campos Avilez MD Lymphocytes/100 WBC (Bld) 16 % Low 25-45 [facility] Comment on above: Performed By: #### C P, CDP, COSMO, BHCG, MG, VD25, LIP #### [place] [address] Ostomy Care Nurse: Campos Avilez MD MCH (RBC) [Entitic mass] 26.6 pg Normal 25.0-35.0 [facility] Comment on above: Performed By: #### C P, CDP, COSMO, BHCG, MG, VD25, LIP #### [address] [address] Ostomy Care Nurse: Campos Avilez MD MCHC (RBC) [Mass/Vol] 32.4 g/dL Normal 28.4-34.8 [facility] Comment on above: Performed By: #### C P, CDP, COSMO, BHCG, MG, VD25, LIP #### [address] [address] Ostomy Care Nurse: Campos Avilez MD MCV (RBC) [Entitic vol] 82.3 fL Normal 78.0-102.0 [facility] Comment on above: Performed By: #### C P, CDP, COSMO, BHCG, MG, VD25, LIP #### [address] [address] Ostomy Care Nurse: Campos Avilez MD Monocytes (Bld) [#/Vol] 0.73 10*3/uL Normal 0.10-1.40 [facility] Comment on above: Performed By: #### C P, CDP, COSMO, BHCG, MG, VD25, LIP #### [address] [address] Ostomy Care Nurse: Campos Avilez MD Monocytes/100 WBC (Bld) 7 % Normal 2-8 [facility] Comment on above: Performed By: #### C P, CDP, COSMO, BHCG, MG, VD25, LIP #### [address] [address] Ostomy Care Nurse: Campos Avilez MD Neutrophil (Seg) 75 % High 34-64 [facility] Comment on above: Performed By: #### C P, CDP, COSMO, BHCG, MG, VD25, LIP #### [address] [address] Ostomy Care Nurse: Campos Avilez MD NRBC Automated 0.0 per 100 WBC Normal 0.0 [facility] Comment on above: Performed By: #### C P, CDP, COSMO, BHCG, MG, VD25, LIP #### [address] [address] Ostomy Care Nurse: Campos Avilez MD Platelet mean volume (Bld) [Entitic vol] 11.8 fL Normal 8.1-13.5 [facility] Comment on above: Performed By: #### C P, CDP, COSMO, BHCG, MG, VD25, LIP #### [address] [address] Ostomy Care Nurse: Campos Avilez MD Platelets (Bld) [#/Vol] 288 10*3/uL Normal 138-453 [facility] Comment on above: Performed By: #### C P, CDP, COSMO, BHCG, MG, VD25, LIP #### [address] [address] Ostomy Care Nurse: Campos Avilez MD RBC (Bld) [#/Vol] 4.17 10*6/uL Normal 3.95-5.11 [facility] Comment on above: Performed By: #### C P, CDP, COSMO, BHCG, MG, VD25, LIP #### [address] [address] Ostomy Care Nurse: Campos Avilez MD WBC (Bld) [#/Vol] 10.8 10*3/uL Normal 4.5-13.5 [facility] Comment on above: Performed By: #### C P, CDP, COSMO, BHCG, MG, VD25, LIP #### [address] [address] Ostomy Care Nurse: Campos Avilez MD Auto Diff Performed NOT REPORTED Normal [facility] Comment on above: Performed By: #### C P, CDP, COSMO, BHCG, MG, VD25, LIP #### [address] [address] Ostomy Care Nurse: Campos Avilez MD Platelets (Bld) [#/Vol] NOT REPORTED Normal [facility] Comment on above: Performed By: #### C P, CDP, COSMO, BHCG, MG, VD25, LIP #### [id number] [place] [address] Ostomy Care Nurse: Campos Avilez MD RBC morphology finding Nom (Bld) NOT REPORTED Normal [facility] Comment on above: Performed By: #### C P, CDP, COSMO, BHCG, MG, VD25, LIP #### [facility] [address] [place] [address] Ostomy Care Nurse: Campos Avilez MD WBC Morphology NOT REPORTED Normal [facility] Comment on above: Performed By: #### C P, CDP, COSMO, BHCG, MG, VD25, LIP #### [address] [address] Ostomy Care Nurse: Campos Avilez MD Calcium, Ionicon 07-08-2020 Calcium [Mass/Vol] 1.18 mmol/L Normal 1.13-1.33 [facility] Comment on above: Performed By: #### I OCAL #### [address] [address] Ostomy Care Nurse: Campos Avilez MD Calcium, Ionizedon Calcium [Mass/Vol] 1.18 mmol/L 1.13 - 1. 33 mmol/L [facility], [place] Comp Metabolic Profon 2020 (cont.) Normal [facility] Comment on above: Result Comment: Aver age GFR for <20 years old not available. Chronic Kidney Disease: <60 mL/min/1.73sq m Kidney failure: <15 mL/min/1.73sq m eGFR calculated using average adult body mass. Additional eGFR calculator available at: http://www.youcalc.com/multiple_crcl_2012.htm Performed By: #### C P, CDP, COSMO, BHCG, MG, VD25, LIP #### [address] [address] Ostomy Care Nurse: Campos Avilez MD Albumin [Mass/Vol] 2.3 g/dL Low 3.5-5.2 [facility] Comment on above: Performed By: #### C P, CDP, COSMO, BHCG, MG, VD25, LIP #### [address] [address] Ostomy Care Nurse: Campos Avilez MD Albumin/Globulin [Mass ratio] 0.9 {ratio} Low 1.0-2.5 [facility] Comment on above: Performed By: #### C P, CDP, COSMO, BHCG, MG, VD25, LIP #### [address] [address] Ostomy Care Nurse: Campos Avilez MD Alkaline Phos 41 U/L Normal 35-104 [facility] Comment on above: Result Comment: SPEC IMEN MODERATELY HEMOLYZED, RESULTS MAY BE ADVERSELY AFFECTED Performed By: #### C P, CDP, COSMO, BHCG, MG, VD25, LIP #### [address] [address] Ostomy Care Nurse: Campos Avilez MD ALT [Catalytic activity/Vol] 11 U/L Normal 5-33 [facility] Comment on above: Result Comment: SPEC IMEN MODERATELY HEMOLYZED, RESULTS MAY BE ADVERSELY AFFECTED Performed By: #### C P, CDP, COSMO, BHCG, MG, VD25, LIP #### [address] [address] Ostomy Care Nurse: Campos Avilez MD Anion gap [Moles/Vol] 9 mmol/L Normal 9-17 [facility] Comment on above: Performed By: #### C P, CDP, COSMO, BHCG, MG, VD25, LIP #### [address] [address] Ostomy Care Nurse: Campos Avilez MD AST [Catalytic activity/Vol] 28 U/L Normal <32 [facility] Comment on above: Result Comment: SPEC IMEN MODERATELY HEMOLYZED, RESULTS MAY BE ADVERSELY AFFECTED Performed By: #### C P, CDP, COSMO, BHCG, MG, VD25, LIP #### [facility] [address] [place] [address] Ostomy Care Nurse: Campos Avilez MD Bilirubin Ql (U) <0.10 Low 0.3-1.2 [facility] Comment on above: Performed By: #### C P, CDP, COSMO, BHCG, MG, VD25, LIP #### [facility] [address] [place] [address] Ostomy Care Nurse: Campos Avilez MD Calcium [Mass/Vol] 5.5 mg/dL Critically low 8.6-10.4 [facility] Comment on above: Performed By: #### C P, CDP, COSMO, BHCG, MG, VD25, LIP #### [facility] [address] [place] [address] Ostomy Care Nurse: Campos Avilez MD Chloride [Moles/Vol] 118 mmol/L High 98-107 [facility] Comment on above: Performed By: #### C P, CDP, COSMO, BHCG, MG, VD25, LIP #### [facility] [address] [place] [address] Ostomy Care Nurse: Campos Avilez MD CO2 [Moles/Vol] 14 mmol/L Low 20-31 [facility] Comment on above: Performed By: #### C P, CDP, COSMO, BHCG, MG, VD25, LIP #### [facility] [address] [place] [address] Ostomy Care Nurse: Campos Avilez MD Creatinine [Mass/Vol] 0.60 mg/dL Normal 0.50-0.90 [facility] Comment on above: Performed By: #### C P, CDP, COSMO, BHCG, MG, VD25, LIP #### [address] [address] Ostomy Care Nurse: Campos Avilez MD GFR,non Amer Pediatric GFR requires additional information. Refer to NKDEP website for Normal >60 [facility] Comment on above: Result Comment: calc ulator. Performed By: #### C P, CDP, COSMO, BHCG, MG, VD25, LIP #### [address] [address] Ostomy Care Nurse: Campos Avilez MD Glucose [Mass/Vol] 84 mg/dL Normal 70-99 [facility] Comment on above: Performed By: #### C P, CDP, COSMO, BHCG, MG, VD25, LIP #### [address] [address] Ostomy Care Nurse: Campos Avilez MD Potassium [Moles/Vol] 5.1 mmol/L Normal 3.7-5.3 [facility] Comment on above: Result Comment: SPEC IMEN MODERATELY HEMOLYZED, RESULTS MAY BE ADVERSELY AFFECTED Performed By: #### C P, CDP, COSMO, BHCG, MG, VD25, LIP #### [address] [address] Ostomy Care Nurse: Campos Avilez MD Protein [Mass/Vol] 5.0 g/dL Low 6.4-8.3 [facility] Comment on above: Performed By: #### C P, CDP, COSMO, BHCG, MG, VD25, LIP #### [address] [address] Ostomy Care Nurse: Campos Avilez MD Sodium [Moles/Vol] 141 mmol/L Normal 135-144 [facility] Comment on above: Performed By: #### C P, CDP, COSMO, BHCG, MG, VD25, LIP #### [address] [address] Ostomy Care Nurse: Campos Avilez MD Urea nitrogen [Mass/Vol] 10 mg/dL Normal 6-20 [facility] Comment on above: Performed By: #### C P, CDP, COSMO, BHCG, MG, VD25, LIP #### [address] [address] Ostomy Care Nurse: Campos Avilez MD BUN/CRE Ratio NOT REPORTED Normal 9-20 [facility] Comment on above: Performed By: #### C P, CDP, COSMO, BHCG, MG, VD25, LIP #### [facility] [address] [place] [address] Ostomy Care Nurse: Campos Avilez MD GFR, Amer NOT REPORTED Normal >60 [facility] Comment on above: Performed By: #### C P, CDP, COSMO, BHCG, MG, VD25, LIP #### [facility] [address] [place] [address] Ostomy Care Nurse: Campos Avilez MD Staging: NOT REPORTED Normal [facility] Comment on above: Performed By: #### C P, CDP, COSMO, BHCG, MG, VD25, LIP #### [facility] [address] [place] [address] Ostomy Care Nurse: Campos Avilez MD HCG, ,Urineon 07-085 Beta HCG ( test) Ql (U) Negative Normal NEG [facility] Comment on above: Result Comment: Spec [...] Performed By: #### U HCG, UAMIC #### [address] [address] Ostomy Care Nurse: Campos Avilez MD HCG, Quanton 07-08-2020 HCG, Quant <1 Normal <5 [facility] Comment on above: Result Comment: Non-preg [...] CDP, COSMO, BHCG, MG, VD25, LIP #### [facility] [address] [place] [address] Ostomy Care Nurse: Campos Avilez MD Lipaseon 07-08-2020 Lipase [Catalytic activity/Vol] 15 U/L Normal 13-60 [facility] Comment on above: Performed By: #### C P, CDP, COSMO, BHCG, MG, VD25, LIP #### [facility] [address] [place] [address] Ostomy Care Nurse: Campos Avilez MD Magnesiumon 07-08-2020 Magnesium [Mass/Vol] 1.2 mg/dL Low 1.7-2.2 [facility] Comment on above: Performed By: #### C P, CDP, COSMO, BHCG, MG, VD25, LIP #### [facility] [address] [place] [address] Ostomy Care Nurse: Campos Avilez MD Interpretation and review of laboratory results Abnormal [place] Magnesium [Mass/Vol] 1.2 mg/dL Low 1.7 - 2 .2 mg/dL [place] Otheron 07-08-2020 Direct Exam Negative [place], [place] , URINEon 1 Beta HCG ( test) Ql (U) Negative NEGATIVE [place] Comment on above: Specimens with hCG [...] 2.6 mg/dL 2.5 - 4 .8 mg/dL [place] Phosphorus, Inorg.on 021 Phosphorus, Inorg. 2.6 mg/dL Normal 2.5-4.8 [facility] Comment on above: Performed By: #### U HCG, UAMIC #### [facility] [address] [place] [address] Ostomy Care Nurse: Campos Avilez MD NON OB TRANSVAGINALon Elia, Mhpn Incoming Radiant Results From [facility] - 07/08/2020 12:31 AM EST EXAMINATION: PELVIC [...] No evidence of ovarian torsion is noted. [place] Unremarkable pelvic ultrasound. No evidence of ovarian torsion is noted. [place] EXAMINATION: PELVIC ULTRASOUND 07/07/2020 TECHNIQUE: Transvaginal [...] Free Fluid: No evidence of free fluid. [facility] [place], [place] Urinalysis w/ Microon 2020 ----- Normal [facility] Comment on above: Performed By: #### U HCG, UAMIC #### [address] [address] Ostomy Care Nurse: Campos Avilez MD Acetoacetic Acid,Ur Negative Normal NEG [facility] Comment on above: Performed By: #### U HCG, UAMIC #### [address] [address] Ostomy Care Nurse: Campos Avilez MD Bacteria LM.HPF (Urine sed) [#/Area] MANY Abnormal NONE [facility] Comment on above: Performed By: #### U HCG, UAMIC #### [address] [address] Ostomy Care Nurse: Campos Avilez MD Bilirubin, SemiQt,Ur Negative Normal NEG [facility] Comment on above: Performed By: #### U HCG, UAMIC #### [address] [address] Ostomy Care Nurse: Campos Avilez MD Color (U) ORANGE Abnormal YEL [facility] Comment on above: Result Comment: INTE RPRET WITH CAUTION DUE TO INTENSE COLOR OF URINE. Performed By: #### U HCG, UAMIC #### [address] [address] Ostomy Care Nurse: Campos Avilez MD Epithelial cells LM.HPF (Urine sed) [#/Area] 0 TO 2 Normal 0-5 [facility] Comment on above: Performed By: #### U HCG, UAMIC #### [address] [address] Ostomy Care Nurse: Campos Avilez MD Glucose Ql (U) Negative Normal NEG [facility] Comment on above: Performed By: #### U HCG, UAMIC #### [address] [address] Ostomy Care Nurse: Campos Avilez MD Hemoglobin, Ur LARGE Abnormal NEG [facility] Comment on above: Performed By: #### U HCG, UAMIC #### [address] [address] Ostomy Care Nurse: Campos Avilez MD Leukocyte esterase Test strip Ql (U) MODERATE Abnormal NEG [facility] Comment on above: Performed By: #### U HCG, UAMIC #### [address] [address] Ostomy Care Nurse: Campos Avilez MD Nitrite,Ur Positive Abnormal NEG [facility] Comment on above: Performed By: #### U HCG, UAMIC #### [address] [address] Ostomy Care Nurse: Campos Avilez MD pH (U) 5.5 [pH] Normal 5.0-8.0 [facility] Comment on above: Performed By: #### U HCG, UAMIC #### [address] [address] Ostomy Care Nurse: Campos Avilez MD Protein Ql (U) 2+ Abnormal NEG [facility] Comment on above: Performed By: #### U HCG, UAMIC #### [address] [address] Ostomy Care Nurse: Campos Avilez MD RBC (U) [#/Vol] 50 TO 100 Normal 0-4 [facility] Comment on above: Result Comment: Refe rence range defined for non-centrifuged specimen. Performed By: #### U HCG, UAMIC #### [address] [address] Ostomy Care Nurse: Campos Avilez MD Specific gravity (U) [Rel density] 1.021 Normal 1.005-1.030 [facility] Comment on above: Performed By: #### U HCG, UAMIC #### [address] [address] Ostomy Care Nurse: Campos Avilez MD Turbidity TURBID Abnormal CLEAR [facility] Comment on above: Performed By: #### U HCG, UAMIC #### [address] [address] Ostomy Care Nurse: Campos Avilez MD Urobilinogen,Ur Normal Normal NORM [facility] Comment on above: Performed By: #### U HCG, UAMIC #### [address] [address] Ostomy Care Nurse: Campos Avilez MD WBC (U) [#/Vol] TOO NUMEROUS TO COUNT Normal 0-5 [facility] Comment on above: Performed By: #### U HCG, UAMIC #### [address] [address] Ostomy Care Nurse: Campos Avilez MD Amorphous sediment LM Ql (Urine sed) NOT REPORTED Normal NONE [facility] Comment on above: Performed By: #### U HCG, UAMIC #### [address] [address] Ostomy Care Nurse: Campos Avilez MD Casts LM.LPF (Urine sed) [#/Area] NOT REPORTED Normal 0-8 [facility] Comment on above: Performed By: #### U HCG, UAMIC #### [address] [address] Ostomy Care Nurse: Campos Avilez MD Crystals LM Nom (Urine sed) NOT REPORTED Normal NONE [facility] Comment on above: Performed By: #### U HCG, UAMIC #### [address] [address] Ostomy Care Nurse: Campos Avilez MD Epithelial, Renal NOT REPORTED Normal 0 [facility] Comment on above: Performed By: #### U HCG, UAMIC #### [address] [address] Ostomy Care Nurse: Campos Avilez MD Mucus Strands NOT REPORTED Normal NONE [facility] Comment on above: Performed By: #### U HCG, UAMIC #### [address] [address] Ostomy Care Nurse: Campos Avilez MD Other Observations NOT REPORTED Normal NREQ [facility] Comment on above: Performed By: #### U HCG, UAMIC #### [address] [address] Ostomy Care Nurse: Campos Avilez MD Trichomonas NOT REPORTED Normal NONE [facility] Comment on above: Performed By: #### U HCG, UAMIC #### [address] [address] Ostomy Care Nurse: Campos Avilez MD Yeast LM Ql (Urine sed) NOT REPORTED Normal [facility] Comment on above: Performed By: #### U HCG, UAMIC #### [facility] [address] [place] [address] Ostomy Care Nurse: Campos Avilez MD Urinalysis with microscopico n 07-08-2020 Amorphous, UA NOT REPORTED None [facility] [place] Bacteria, UA MANY Abnormal None [facility] [place] Bilirubin Urine Negative NEGATIVE [facility] [place] Casts UA NOT REPORTED [facility] [place] Color, UA ORANGE Abnormal YELLOW [facility] [place] Comment on above: INTERPRET WITH CAUTI ON DUE TO INTENSE COLOR OF URINE. Crystals, UA NOT REPORTED None /HPF [place] Epithelial Cells UA 0 TO 2 [place] Glucose, Ur Negative NEGATIVE [place] Interpretation and review of laboratory results Abnormal [place] Ketones Ql (U) Negative NEGATIVE [place] Leukocyte esterase Test strip Ql (U) MODERATE Abnormal NEGATIVE [place] Mucus, UA NOT REPORTED None [place], [place] Nitrite, Urine Positive Abnormal NEGATIVE [place], [place] Other Observations UA NOT REPORTED NOT REQ. M [place] pH, UA 5.5 [place] Protein (U) [Mass/Vol] 2+ Abnormal NEGATIVE [place] RBC (U) [#/Vol] 50 TO 100 [place], [place] Comment on above: Reference range defi sonia for non-centrifuged specimen. Renal Epithelial, UA NOT REPORTED 0 /HPF [place] Specific [place], UA 1.021 [place], [place] Trichomonas, UA NOT REPORTED None [place] Turbidity UA TURBID Abnormal CLEAR [place] Urine Hgb LARGE Abnormal NEGATIVE [place] Urobilinogen, Urine Normal Normal [place] WBC, UA TOO NUMEROUS TO COUNT [place] Yeast, UA NOT REPORTED None [place] - [place] VAGINITIS DNA PROBEon 2020 Direct Exam Positive Abnormal [place] Direct Exam Method of testing is a DNA probe intended for detection and identification of Samantha species, Gardnerella vaginalis, and Trichomonas vaginalis nucleic acid in vaginal fluid specimens from patients with symptoms of vaginitis/vaginosis. [place] Interpretation and review of laboratory results Abnormal [place] Special Requests NOT REPORTED [place] Specimen Description .VAGINA [place] Vaginitis DNA Probeon 2020 Vaginitis DNA [...] of vaginitis/vaginosis. Report Status FINAL 07/08/2020 Normal [facility] Comment on above: Performed By: #### U HCG, UAMIC #### [facility] [address] [place] [id number] Ostomy Care Nurse: Campos Avilez MD Vitamin D 25 Hydroxyon 07-08 Interpretation and review of laboratory results Abnormal [place], [place] Vit D, 25-Hydroxy 12.1 ng/mL Low 30 - 100 ng/mL [place] Comment on above: Reference Range: Vitamin D status Range Deficiency <20 ng/mL Mild Deficiency 20-30 ng/mL Sufficiency 30-100 ng/mL Toxicity >100 ng/mL Vitamin D 25 OHon 07-08-2020 Vitamin D 25 OH 12.1 ng/mL Low 30.0-100.0 [facility] Comment on above: Result Comment: Reference Range: Vitamin D status Range Deficiency <20 ng/mL Mild Deficiency 20-30 ng/mL Sufficiency 30-100 ng/mL Toxicity >100 ng/mL Performed By: #### U HCG, UAMIC #### [facility] [address] [place] [phone] Ostomy Care Nurse: Campos Avilez MD ABO/RHon 07-07-2020 ABO/Rh Positive [place], [place] CBC WITH AUTO DIFFERENTIALon 07-07-2020 Basophils (Bld) [#/Vol] 0.04 10*3/uL [place] Basophils/100 WBC (Bld) 0 % 0 - 2 % [place] Differential Type NOT REPORTED [place] Eosinophils (Bld) [#/Vol] 0.10 10*3/uL [place] Eosinophils/100 WBC (Bld) 1 % 1 - 4 % [place] Erythrocyte distribution width (RBC) [Ratio] 14.0 % 11.8 - 14.4 % [place] Hematocrit (Bld) [Volume fraction] 34.3 % Low 36.3 - 47.1 % [place] Hemoglobin (Bld) [Mass/Vol] 11.1 g/dL Low 11.9 - 15.1 g/dL [place] Immature granulocytes (Bld) [#/Vol] 0 % 0 [place] Immature granulocytes (Bld) [#/Vol] 0.04 10*3/uL [place] Interpretation and review of laboratory results Abnormal [place] Lymphocytes (Bld) [#/Vol] 1.77 10*3/uL [place] Lymphocytes/100 WBC (Bld) 16 % Low 25 - 45 % [place] MCH (RBC) [Entitic mass] 26.6 pg 25 - 35 pg [place] MCHC (RBC) [Mass/Vol] 32.4 g/dL 28.4 - 34.8 g/dL [place] MCV (RBC) [Entitic vol] 82.3 fL 78 - 102 fL [place] Monocytes (Bld) [#/Vol] 0.73 10*3/uL [place] Monocytes/100 WBC (Bld) 7 % 2 - 8 % [place] Platelet mean volume (Bld) [Entitic vol] 11.8 fL 8.1 - 13.5 fL [place] Platelets (Bld) [#/Vol] NOT REPORTED [place] Platelets (Bld) [#/Vol] 288 10*3/uL [place] RBC (Bld) [#/Vol] 4.17 10*6/uL 3.95 - 5.1 1 m/uL [place] RBC morphology finding Nom (Bld) NOT REPORTED [place] Segmented neutrophils/100 WBC (Bld) 75 % High 34 - 64 % [place] Segs Absolute 8.16 [place] WBC (Bld) [#/Vol] 0.0 10*3/uL 0.0 per 10 0 WBC [place] WBC (Bld) [#/Vol] 10.8 10*3/uL [place] WBC Morphology NOT REPORTED [place] COMPREHENSIVE METABOLIC PANE Mikie 07-07-2020 Albumin [Mass/Vol] 2.3 g/dL Low 3.5 - 5.2 g/dL [place] Albumin/Globulin [Mass ratio] 0.9 {ratio} Low [place] ALP [Catalytic activity/Vol] 41 U/L 35 - 104 U/L [place] Comment on above: SPECIMEN MODERATELY HEMOLYZED, RESULTS MAY BE ADVERSELY AFFECTED ALT [Catalytic activity/Vol] 11 U/L 5 - 33 U/L [place] Comment on above: SPECIMEN MODERATELY HEMOLYZED, RESULTS MAY BE ADVERSELY AFFECTED Anion gap [Moles/Vol] 9 mmol/L 9 - 17 mmol/L [place] AST [Catalytic activity/Vol] 28 U/L <32 [place] Comment on above: SPECIMEN MODERATELY HEMOLYZED, RESULTS MAY BE ADVERSELY AFFECTED Bilirubin Ql (U) <0.10 Low 0.3 - 1.2 mg/dL [place] Bun/Cre Ratio NOT REPORTED [place] Calcium [Mass/Vol] 5.5 mg/dL Critically low 8.6 - 1 0.4 mg/dL [place] Chloride [Moles/Vol] 118 mmol/L High 98 - 10 7 mmol/L [place] CO2 [Moles/Vol] 14 mmol/L Low 20 - 31 mmol/L [place] Creatinine [Mass/Vol] 0.6 mg/dL 0.5 - 0.9 mg/dL [place] GFR NOT REPORTED >60 mL/min [place] GFR Non- Pediatric GFR requires additional information. Refer to NKDEP website for calculator. >60 mL/min [place] GFR/1.73 sq M predicted among non-blacks MDRD (S/P/Bld) [Vol rate/Area] NOT REPORTED [place] GFR/1.73 sq M predicted among non-blacks MDRD (S/P/Bld) [Vol rate/Area] [place] Comment on above: Average GFR for <20 years old not available. Chronic Kidney Disease: <60 mL/min/1.73sq m Kidney failure: <15 mL/min/1.73sq m eGFR calculated using average adult body mass. Additional eGFR calculator available at: http://www.Airpowered/multiple_crcl_2012.htm Glucose [Mass/Vol] 84 mg/dL 70 - 99 mg/dL [place] Interpretation and review of laboratory results Abnormal [place] Potassium [Moles/Vol] 5.1 mmol/L 3.7 - 5.3 mmol/L [place] Comment on above: SPECIMEN MODERATELY HEMOLYZED, RESULTS MAY BE ADVERSELY AFFECTED Protein [Mass/Vol] 5.0 g/dL Low 6.4 - 8.3 g/dL [place] Sodium [Moles/Vol] 141 mmol/L 135 - 144 mmol/L [place] Urea nitrogen [Mass/Vol] 10 mg/dL 6 - 20 mg/dL [place] HCG, QUANTITATIVE, on 07-07-2020 hCG Quant <1 <5 IU/L [place] Comment on above: Non-preg premeno <=5 [...] activity/Vol] 15 U/L 13 - 60 U/L [place] Vital Signs Date Time Vital Sign Value Performing Clinician Facility 10-26-2023 03:30-0400 Hourly Rounding Fu[facility] Florentino [facility] Comment on above: Result Comment: pt discharged off unit 10-26-2023 03:15-0400 Hourly Rounding Fuentes Florentino [facility] Comment on above: Result Comment: went over discharge inst ructions. educated pt on importance of contacting primary provider with future concerns, pisking up antibiotic prescription tomorrow, and calling is symtpoms return or get worse. 10-26-2023 00:00-0400 Blood Pressure Location Fuentes Florentino [facility] 10-26-2023 00:00-0400 Body temperature 98.6 [degF] Fuentes Florentino [facility] 10-26-2023 00:00-0400 Diastolic blood pressure 68 mm[Hg] Fuentes Florentino [facility] 10-26-2023 00:00-0400 Heart rate 101 /min Fuentes Florentino [facility] 10-26-2023 00:00-0400 Hourly Rounding Fuentes Florentino [facility] 10-26-2023 00:00-0400 Mean blood pressure 86 mm[Hg] Fuentes Florentino [facility] 10-26-2023 00:00-0400 Respiratory rate 16 /min Fuentes Florentino [facility] 10-26-2023 00:00-0400 Systolic blood pressure 122 mm[Hg] Fuentes Florentino [facility] 07-17-2023 11:42-0500 Body weight 127.82 kg Chung Benja [employer] Work Phone: [facility] 07-17-2023 11:42-0500 Diastolic blood pressure 70 mm[Hg] Chung Benja DO Work Phone: [facility] 07-17-2023 11:42-0500 Systolic blood pressure 118 mm[Hg] Chung Benja DO Work Phone: [facility] 10-19-2021 01:12-0400 Diastolic blood pressure 62 mm[Hg] PHYSICIAN [facility] 10-19-2021 01:12-0400 Heart rate 89 /min PHYSICIAN [facility] 10-19-2021 01:12-0400 Respiratory rate 18 /min PHYSICIAN [facility] 10-19-2021 01:12-0400 SaO2% (BldA) [Mass fraction] 100 % PHYSICIAN [facility] 10-19-2021 01:12-0400 Systolic blood pressure 130 mm[Hg] PHYSICIAN [facility] 10-18-2021 23:10-0400 Body height 167.64 cm PHYSICIAN [facility] 10-18-2021 23:10-0400 Body mass index (BMI) [Percentile] Per age and sex 99.1 % PHYSICIAN [facility] 10-18-2021 23:10-0400 Body mass index (BMI) [Ratio] 48.2 kg/m2 PHYSICIAN [facility] 10-18-2021 23:10-0400 Body weight 135.5 kg PHYSICIAN [facility] 10-18-2021 23:08-0400 Body temperature 98.4 [degF] PHYSICIAN [facility] 07-07-2020 21:51-0500 BMI (Body Mass Index) 42.93 kg/m2 [facility] [place] 07-07-2020 21:51-0500 Body [facility] 120.66 [facility] [place] [place] 07-07-2020 21:51-0500 BP Diastolic 85 mm[Hg] [facility] [place] [place] 07-07-2020 21:51-0500 BP Systolic 136 mm[Hg] [facility] , [place] 07-07-2020 21:51-0500 Height 167.6 cm [facility] [place] [place] 07-07-2020 21:51-0500 Pulse (Heart Rate) 93 /min [facility] 07-07-2020 21:51-0500 Pulse Oximetry 97 % [facility] [place] 07-07-2020 21:51-0500 Respiratory Rate 18 /min [facility], [place] 07-07-2020 21:48-0500 Body Temperature 97.11 [degF] [facility] [place] Encounters Encounter Date Encounter Type Care Provider Facility Start: 12-31-2023 End: 12-31-2023 ambulatory HALIMA SUBHASH Not Available Start: 12-17-2023 End: 12-17-2023 ambulatory HALIMA SUBHASH Not Available Start: 12-03-2023 End: 12-03-2023 ambulatory CHUNG BENJA Not Available Start: 11-19-2023 End: 11-19-2023 ambulatory CHUNG BENJA Not Available Start: 11-04-2023 End: 11-04-2023 ambulatory HALIMA SUBHASH Not Available Start: 10-26-2023 End: 10-26-2023 ambulatory Fuentes Florentino Facility:[facility] Start: 10-25-2023 End: 10-26-2023 OB Triage Fuentes Florentino [facility] Start: 10-07-2023 End: 10-07-2023 ambulatory CHUNG [...] Emergency department patient visit PHYSICIAN NO FAMILY Facility:[facility] Start: 10-18-2021 End: 10-19-2021 Emergency department patient visit PHYSICIAN NO FAMILY [facility] Start: 07-07-2020 End: 07-08-2020 Emergency department patient visit DAVID AQUINO [facility] Start: 07-07-2020 End: 07-08-2020 Emergency department patient visit Lisa Land Work Phone: [facility] ED Comment on above: BV [...] AM EDT Routine [facility] OB [address] [place] [id number] Halima Cullen PA [address] [place], [place] [id number] [facility] Start: 07-17-2023 End: 07-17-2024 US for US OB VIABLILITY Imaging Routine with uncertain viability, single or unspecified fetus Expected: 07/17/2023 (Approximate), Expires: 07/17/2024 [facility] Work Phone: Comment on above: [...] 02-01-2020 Influenza vaccination Flu vaccine (# 1) [place], [place] Start: 2018 Meningococcal (ACWY) vaccine (1 - 2-dose series) Meningococcal (ACWY) vaccine (1 - 2-dose series) [place] Start: 2018 Screening for Chlamy nancy trachomatis Chlamydia screen [place], [place] Start: 2017 HIV screening HIV screen Line [place], [place] Start: 2013 HPV vaccine (1 - 2-d ose series) HPV vaccine (1 - 2-dose series) [place] Start: 2009 DTaP/Tdap/Td vaccine (1 - Tdap) DTaP/Tdap/Td vaccine (1 - Tdap) [place] Start: 2003 Hepatitis A vaccine (1 of 2 - 2-dose series) Hepatitis A vaccine (1 of 2 - 2-dose series) [place] Start: 2003 Measles,Mumps,Rubell a (MMR) vaccine (1 of 2 - Standard series) Measles,Mumps,Rubella (MMR) vaccine (1 of 2 - Standard series) [place] Start: 2003 Varicella vaccine (1 of 2 - 2-dose childhood series) Varicella vaccine (1 of 2 - 2-dose childhood series) [place] Start: 2002 Hepatitis B vaccine (1 of 3 - 3-dose primary series) Hepatitis B vaccine (1 of 3 - 3-dose primary series) [place] Start: 2002 Hepatitis C screening [facility] [place] Bacteria identified in Urine by Culture Urine culture Microbiology Routine Missed menses Ordered: 07/03/2023 [facility] Comment on above: Ordered: 07/03/2023 End: 07-07-2020 C.trachomatis N.gonorrhoeae DNA C.trachomatis N.gonorrhoeae DNA Microbiology STAT One Time for 1 Occurrences starting 07/07/2020 until 07/07/2020 [place] Comment on above: One Time for 1 Occur rences starting 07/07/2020 until 07/07/2020 C.trachomatis N.gonorrhoeae DNA C.trachomatis N.gonorrhoeae DNA Microbiology Stat [employer] Label print 07/07/2020 11:20 PM [place] End: 07-08-2020 Calcium, Ionized Calcium, Ionized Lab STAT One Time for 1 Occurrences starting 07/08/2020 until 07/08/2020 [place] Comment on above: One Time for 1 Occur rences starting 07/08/2020 until 07/08/2020 CBC W Auto Different ial panel - Blood CBC and differential Lab Routine Missed menses Ordered: 07/03/2023 [facility] Comment on above: Ordered: 07/03/2023 End: 07-07-2020 Culture, Urine Culture, Urine Microbiology STAT One Time for 1 Occurrences starting 07/07/2020 until 07/07/2020 [place] Comment on above: One Time for 1 Occur rences starting 07/07/2020 until 07/07/2020 Culture, Urine Culture, Urine Microbiology Stat [employer] Label print 07/07/2020 10:56 PM [facility] [place] Hemoglobin A1c measurement Hemoglobin A1c Lab Routine Missed menses Ordered: 07/03/2023 [facility] Comment on above: Ordered: 07/03/2023 Hepatitis B virus surface Ag [Presence] in Serum or Plasma by Immunoassay Hepatitis B surface antigen Lab Routine Missed menses Ordered: 07/03/2023 [facility] Comment on above: Ordered: 07/03/2023 Hepatitis C virus Ab [Presence] in Serum or Plasma by Immunoassay Hepatitis C antibody Lab Routine Missed menses Ordered: 07/03/2023 [facility] Comment on above: Ordered: 07/03/2023 HIV-1/HIV-2 antigen/antibody combination immunoassay HIV-1 and HIV-2 antibodies Lab Routine Missed menses Ordered: 07/03/2023 [facility] Comment on above: Ordered: 07/03/2023 Patient Education Common Breast Problems Pelvic Pain ED [facility] Work Phone: Patient referral [facility] Work Phone: Reagin Ab [Presence] in Serum by RPR RPR Lab Routine Missed menses Ordered: 07/03/2023 [facility] Comment on above: Ordered: 07/03/2023 Rubella antibody, IgG Rubella an tibody, IgG Lab Routine Missed menses Ordered: 07/03/2023 [facility] Comment on above: Ordered: 07/03/2023 End: 07-07-2020 US DUP ABD PEL RETRO SCROT LIMITED US DUP ABD PEL RETRO SCROT LIMITED Imaging STAT Once for 1 Occurrences starting 07/07/2020 until 07/07/2020 [facility] Comment on above: Once for 1 Occurrenc es starting 07/07/2020 until 07/07/2020 US DUP ABD PEL RETRO SCROT LIMITED US DUP ABD PEL RETRO SCROT LIMITED Imaging STAT 07/08/2020 12:13 AM [facility] Payers Date Payer Category Payer Unknown BCBS BCBS [id number] 2023-Present [phone] [address] [place] [address] [id number] 2023 Unknown [id number] 2021 [facility] [id number] 2002 Unknown [id number] 2002 Unknown [id number] [id number] 2002 Unknown [id number] [id number] 2002 Unknown [id number] [id number] 2002 Unknown [id number] [id number] 2002 Unknown [id number] 2.16.840.1.242378.3.579.2.1259 2002 Unknown [id number] 2.16.840.1.196166.3.579.2.1259 2002 Unknown [id number] 2.16.840.1.272736.3.579.2.1258 2002 Unknown [id number] 2.16.840.1.934111.3.579.2.1259 2002 Unknown [id number] 2.16.840.1.107971.3.579.2.125 2002 Unknown [id number] 2.16.840.1.076315.3.579.2.125 2002 Unknown [id number] 2.16.840.1.779188.3.579.2.1258 2002 Unknown [id number] 2.16.840.1.894445.3.579.2.1258 2002 Unknown [id number] 2.16.840.1.920478.3.579.2.125 2002 Unknown [id number] [id number] 1957 Medicaid [id number] 1959 Unknown [id number] Unknown [id number] Social History Date Type Detail Facility Start: 07-07-2020 End: 07-16-2023 Tobacco smoking status MIIS Never smoker [facility] Start: 07-07-2020 Tobacco use and exposure [place] Start: 2002 Sex Assigned At Not on file [place] Exposure to SARS-CoV-2 (event) Not sure [place], [place] Start: 10-19-2021 Tobacco smoking status MIIS Smoker (finding) [facility] Start: 2002 Sex Assigned At Female F [facility] Tobacco smoking status [facility] Tobacco smoking consumption unknown [facility] Start: 05-22-2023 [facility] Start: 07-16-2023 Gender identity Not on file [facility] Start: 07-16-2023 End: 07-17-2023 Alcohol intake Lifetime non-drinker (finding) [facility] Start: 07-16-2023 History of Social function [facility] Tobacco smoking status No Smoking Status Entered [facility] Functional Status Date Assessment Result Facility 10-26-2023 Functional Status N/A [facility] Clinical Notes 07-03-2023 to 10-26-2023 Chung Yousif DO - 07/17/2023 11:10 AM Costa Kilgore LPN - 07/03/2023 1:00 PM EST Note Date & Type Note Facility 10-26-2023 Note The following Patien t Education Materials have been given to the patient: EducationMaterial [facility] 10-26-2023 Hospital Discharg e instructions Patient Education [...] provider. Document Revised: 01/02/2022 Document Reviewed: 01/02/2022 [employer] Patient Education 2022 Oversi. 10/26/2023 03:10:04 Vaginal Bleeding During , Second [...] help with your regular activities. Medicines Take eesv-suf-dybaeys and prescription medicines only as told by [...] provider. Document Revised: 02/08/2021 Document Reviewed: 02/08/2021 [employer] Patient Education 2022 Oversi. 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 [...] your back during . General instructions Take jhld-rph-zkjgjgi and prescription medicines only as told by [...] care provider for managing back pain. Take xqxw-oir-ffxgaze and prescription medicines only as told by [...] provider. Document Revised: 08/01/2021 Document Reviewed: 08/01/2021 [employer] Patient Education 2022 Oversi. Follow Up Care 10/25/2023 23:39:34 With:Chung YOUSIF Address: [address] , [place] [address] Business (1) When:11/04/2023 [facility] 10-25-2023 Evaluation + Plan note Diagnostic Tests PendingUrine Culture 10/25/23 [facility] 07-17-2023 History of Presen t illness Narrative Reason for Appointment: Patient ID: Teodoro Upton is a 23 y.o. female who presents for Routine Visit Patient presents today for Return OB appointment. Current Medications: has a current medication list which includes the following prescription(s): qjcnwftv-dzo-jm-fa and promethazine. Medical History: Active Ambulatory Problems Diagnosis Date Noted No Active Ambulatory Problems Resolved Ambulatory Problems Diagnosis Date Noted No Resolved Ambulatory Problems Past Medical History: Diagnosis Date ADD (attention deficit disorder) Asthma ([facility]) Family History Problem Relation Name [...] Chung Yousif DO documented in this encounter [facility] 07-03-2023 History of Presen [...] Problems Past Medical History: Diagnosis Date Asthma ([facility]) No family history on file. [...] raw or undercooked meat, stay away from [facility], do not change litter boxes, eat [...] Evaluation note No assessment inform ation available [facility] Work Phone: Evaluation note Diagnosis Missed menses Nausea and vomiting, unspecified vomiting type documented in this encounter [facility]* Diagnosis First trimester state, incidental Vaginal bleeding in Threatened miscarriage Threatened , unspecified as to episode of care with uncertain viability, single or unspecified fetus documented in this encounter [facility] Narrative No data available for this section [facility] Additional Instructions Please follow up as we discussed so you can have your concerns further evaluated.[facility] Work Phone: Progress note No data available for this section [facility] Discharge Instructions * Instructions* Brenda Stoner, - 07/08/[address] [facility] ED Clinic List Healthcare Providers Services Day of Week/ Hours [facility] for [facility] Services [address] [facility] Pediatric Primary Care Adult Primary Care FISHING VESSEL CAPTAIN//Specialty Clinics Friday 8:00a 4:30p [address] Adult Medicine, Pediatrics, FISHING VESSEL CAPTAIN Friday 8:30a 4:30p [facility] Surgery [address] [facility] Friday 8:30a 11:00a [facility] [address] [facility] Adult Internal Medicine ([facility]) FISHING VESSEL CAPTAIN Clinic Pediatric Clinic Friday, Friday, , Friday 8:00a 4:30p Friday 1:00p 4:30p Friday, Friday, 8:00a 5:00p; Friday 8:00a 12:30p Friday 1p 4p Friday, Friday, , Friday 8:30a 4:15p Friday 12:30p 4:15p Health Department [address] Pediatric Primary Care Adult Primary Care OB/ Friday, Friday 8a 12p 8a 4:45p [facility] [address] [place] [address] [place] [address] # Pre & Post Adoption Counseling Support / nutrition Care Reward Incentive Program [place] Location Fri, , Fri, Fri 10:00a 4:30p Thur 10:00a 7:30p E [place] Location Friday - Friday 10a 4:30p [facility] FISHING VESSEL CAPTAIN [address] [facility] Adult Internal Medicine [address] [facility] Pediatrics [address] [facility], [address] Neuro / Headache [address] [facility] Friday 8:30a 5p [facility] [address] [facility] Fri, , , Fri 9:00a 4:30p Wed 1:00p 4:30p [facility] [address] [facility] [address] [facility] Friday 8:30a 5:00p [facility] Specialty Clinics [address] [facility] [address] Burn/Plastic, ENT, GI, Orthopedics, Surgical / Trauma, Urology, Vascular Friday 8:00 4:30p Call for an appointment [facility] [address] [facility] Adult Medicine, Eye Clinic, Dental Patient must be certified homeless Under age 18 not accepted Friday 8:00 4:30p [facility] [address] [facility] OB Friday, Friday, Friday, Friday 9a 5p 9a 6p Friday (OB only) [facility] [address] [facility] OB/ Friday 11a 7p , Fri, 9a 5p Friday 8a 4p 1st Friday 9a 1p Podiatry Clinic [address] [facility] Building [address] Friday 8:00 4:30 p Center [facility] [address] Free nurse visits [place] programs Counseling Class Call or walk in [facility] [address] [place] Various Clinics 8a 5:30p [facility] Family Medicine [facility] [address] [facility], [address] [facility] Friday 8a 4:30p [facility] [address] [place], [place] [id number] [address] [place] [address] Friday 8a 4:30p Friday 8a 4:30p 8a 8p Outpatient Clinics [facility] [address] [facility] Friday 9a 5p Diabetic Education Services Call for an appointment [facility] Heart Failure Clinic [address] [facility] Friday 8:30a 4p Dental Services [facility] [address] [facility] Must have source of income and must bring (2) recent check stubs to appointment By appointment only [facility] [address] Patient must be homeless, call for eligibility guidelines. Under age 18 NOT accepted Days and hours vary (Doors open at 8:30a day of week varies) Call for an appointment Miscellaneous Information [facility] Call for Help [phone] Call for an appointment H.E.L.P (Hospital Eligibility Link Program) toll free For financial assistance * Attachments The following attachments cannot be sent through Care Everywhere. * Bacterial Vaginosis (Portuguese) * UTI (Urinary Tract Infection): Female (Portuguese) * Vitamin D: General Info (Portuguese) documented in this encounter Assessments Diagnosis BV [...] section and content) DATE CREATED AUTHOR 07/16/2020 [facility] DATE CREATED AUTHOR AUTHOR'S ORGANIZ ATION 09/07/2022 [facility] DATE CREATED AUTHOR AUTHOR'S ORGANIZ ATION 03/13/2023 [facility] DATE CREATED AUTHOR AUTHOR'S ORGANIZ ATION 10/27/2023 Lopez Braxton [facility] DATE CREATED AUTHOR AUTHOR'S ORGANIZ ATION 10/31/2023 Wellington Braxton [facility] DATE CREATED AUTHOR AUTHOR'S ORGANIZ ATION 01/03/2024 [facility] dical Specialists EPIC Care [...] BE BASED ON THE PRIMARY CLINICAL RECORDS. [employer] provides no warranty or guarantee of the accuracy or completeness of information in this document.
[2024-01-13 17:11] VITALS: BP 143/64; PULSE 101
[2024-01-13 17:46] VITALS: BP 135/76; PULSE 82
--- NOTE | 2024-01-13 17:54 | US_ITS ---
[address] [address] Patient Name: TEODORO HERNANDES MRN: [id number] date: 2000 Sex: F Assigned Patient Location: US Current Patient Location: US Accession/Order Number: [id number] Exam Date: 01/13/2024 17:59 Report Date: 01/14/2024 07:18 At the request of: ROBERT CULLEN Procedure: US OB BPP w non-stress EXAMINATION: US OB BPP w non-stress HISTORY: POLYHYDRAMINOS AFFECTING O40.3XX0 COMPARISON: 07/08/2023 TECHNIQUE: Ultrasound biophysical profile was performed in the radiology department. non-reactive stress testing was performed by nursing staff in the birthing center. FINDINGS: BREATHING MOVEMENTS: 2 GROSS BODY MOVEMENTS: 2 TONE: 2 QUALITATIVE AMNIOTIC FLUID VOLUME: 2 PRESENTATION: CEPHALIC HEART RATE: 150.84 bpm AMNIOTIC FLUID VOLUME: 20.5 cm GESTATIONAL AGE: 35 weeks 5 days Dilation of the right renal pelvis measuring 1.2 cm US/US OB BPP w non-stress IMPRESSION: Total biophysical profile score: 8 Right renal pelviectasis Electronically authenticated by: LISETTE JIMENEZ Date: 01/14/2024 07:18
== END 2024-01-13 18:24 | disposition home or self-care (01) ==
LOC: US 07:00 → FBC 17:02
PROVIDERS: Visit Provider Physician Assistant
DX: O40.3XX0 Polyhydramnios, third trimester, not applicable or unspecified (principal); O36.60X0 Maternal care for excessive fetal growth, unspecified trimester, not applicable or unspecified; Z3A.35 35 weeks gestation of pregnancy
CPT/HCPCS: 76818

== ENCOUNTER 2024-01-14 20:20 | Outpatient (REF) | payer MEDICAID, SELFPAY ==
--- OUTSIDE RECORDS SUMMARY | 2024-01-14 20:24 | XMS_ITS | CCD ---
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 Name Role Phone Unavailable Primary Care Provider [...] Propensity to adverse reactions to drug 07-07-2020 [facility] [place], [place] Medications Current Medications Medication Drug Class(es) [...] Refill(s) 0 Start Date: 10/26/23 Status: Ordered Cdfspgqr-Rjv-To-FA ( 1 + IRON PO) (4 sources) Tbetptlt-Xtn-Xb-FA ( 1 + IRON PO) Take by [...] Range Facility Nursing Assessmenton 024 Nursing Assessment [id number] 2#1.00TIFF Normal [facility] C Urineon 10-28-2023 Bacteria identified Cx [...] Locations R1: This test was performed at: [facility], [address] [place] [address], [address] [place] [address], [facility] Comment on above: Performed By: #### 2 [id number] #### [facility] [address] [place] [address] Consent for Treatmenton 10-01 Consent for Treatment [id number] #1.00TIFF [facility] Discharge Instructionson Discharge Instructions [id number] 7#1.00TIFF [facility] Inpatient Clinical Summaryon 10-26-2023 Inpatient Clinical Summary [address] [address] Clinical Summary Person Information Name: [facility] Age: 23 Years : 2000 Sex: Female PCP: NONE, XXXX Marital Status: Single Phone: [phone] Race: or Ethnicity: Non- or Language: Ukrainian Visit Id: Visit Reason: 24 WEEKS BLEEDING Speciality: Acuity: Obs Enc Type: OB Triage Med Service: Obstetrics Arrival: 10/25/2023 23:36:04 Discharge: 10/26/2023 03:30:56 Dispo Type: Home (Routine DC) Address: [facility] [address] [facility] [id number] Provider Notes: Diagnosis: Problems Active (10/26/2023) Smoker [...] Follow up: With: Address: When: [facility], [address] [place] [address] , [place] [address] [facility] (1) In 9 days 11/04/2023 Patient Education Information: and Urinary Tract Infection; Vaginal Bleeding During , Second Trimester; Back Pain in Normal [facility] Inpatient Patient Summaryon 10-26-2023 Inpatient Patient Summary [address] [address] Patient Discharge Instructions PERSON INFORMATION [...] test results: Follow up: With: Address: When: [facility], [address] [place] [address] , [place] [address] Business (1) In 9 days [...] Always wi (more content not included)... Normal [facility] Insurance Correspondenceon 0 10-26-2023 Insurance Correspondence [id number] 8#1.00TIFF Normal [facility] UA with Cult Rflxon 10-26-19 24 Bacteria Auto Ql (U) Trace Normal Trace Fish [facility] Comment on above: Performed By: #### 4 [id number] #### [facility] [address] [place] [address] Bilirubin Ql (U) Negative Normal Negative [facility] Comment on above: Performed By: #### 4 [id number] #### [facility] [address] [place] [address] Clarity (U) Turbid Abnormal Clear [facility] Comment on above: Performed By: #### 4 [id number] #### [facility] [address] [place] [address] Color (U) Yellow Normal Yellow [facility] Comment on above: Result Comment: Micr oscopic readings are only performed on those samples that meet specific criteria set forth by [facility]. Performed By: #### 4 [id number] #### [facility] [address] [place] [address] Epithelial cells.squamous Auto (Urine sed) [#/Area] 5-8 Abnormal 0-2 [facility] Comment on above: Performed By: #### 4 [id number] #### [facility] [address] [place] [address] Glucose Ql (U) Negative Normal Negative [facility] Comment on above: Performed By: #### 4 [id number] #### [facility] [address] [place] [address] Hemoglobin Auto test strip (U) [Mass/Vol] Negative Normal Negative [facility] Comment on above: Performed By: #### 4 [id number] #### [facility] [address] [place] [address] Hyaline casts LM Ql (Urine sed) 0-3 Normal 0-3 [facility] Comment on above: Performed By: #### 4 [id number] #### [facility] [address] [place] [address] Ketones Auto test strip Ql (U) Negative Normal Negative [facility] Comment on above: Performed By: #### 4 [id number] #### [facility] [address] [place] [address] Leukocyte esterase Auto test strip Ql (U) 500 Gerald/uL Abnormal Negative [facility] Comment on above: Performed By: #### 4 [id number] #### [facility] [address] [place] [address] Mucus Auto Ql (U) Trace Normal Negative [facility] Comment on above: Performed By: #### 4 [id number] #### [facility] [address] [place] [address] Nitrite Auto test strip Ql (U) Negative Normal Negative [facility] Comment on above: Performed By: #### 4 [id number] #### [facility] [address] [place] [address] pH (U) 6.0 [pH] Invalid Interpretation Code 5.0-9.0 [facility] Comment on above: Performed By: #### 4 [id number] #### [facility] [address] [place] [address] Protein Ql (U) Trace Abnormal Negative [facility] Comment on above: Performed By: #### 4 [id number] #### [facility] [address] [place] [address] RBC Ql (U) 4-20 Abnormal 0-3 [facility] Comment on above: Performed By: #### 4 [id number] #### [facility] [address] [place] [address] Specific gravity (U) [Rel density] 1.030 Invalid Interpretation Code 1.005-1.030 [facility] Comment on above: Performed By: #### 4 [id number] #### [facility] [address] [place] [address] Urobilinogen (U) [Mass/Vol] Negative Normal Negative [facility] Comment on above: Performed By: #### 4 [id number] #### [facility] [address] [place] [address] WBC Auto (Urine sed) [#/Area] 16-25 Abnormal 0-5 [facility] Comment on above: Performed By: #### 4 [id number] #### [facility] [address] [place] [address] Type of Urine collection method Clean Catch Normal [facility] Comment on above: Performed By: #### 4 [id number] #### [facility] [address] [place] [address] URINALYSISOrdered By: SYSTEM SYSTEM on 10-25-2023 Bacteria [...] that meet specific criteria set forth by [facility]. Epithelial cells.squamous Auto (Urine sed) [...] 16-25 graded/HPF Invalid Interpretation Code 0-5graded/HP F [facility] UA Auto SS URINALYSISOrdered By: Elijah Hernandez on 10-25-2023 UA Spec Desc Clean Catch (10/25/23 11:53 PM) Normal [facility] UA Auto SS Urinalysis macro (dipstick) panel (U)on 07-17-2023 Bilirubin, UA Negative Negative - 4(70) +++ mg/dL [facility] Blood, UA Negative Negative - 50 William/mcL [facility] Clarity, UA Clear [facility] Color, UA Yellow [facility] Glucose, UA Negative Negative - 1999(110) ++++ mg/dL [facility] Interpretation and review of laboratory results Abnormal [facility] Ketones, UA Negative Negative - 160(16) ++++ mg/dL [facility] Leukocytes, UA Positive Negative - 500+++ Gerald/mcL [facility] Nitrite, UA Negative Negative - Positive [facility] pH, UA 7.0 5 - 9 [facility] Protein, UA Negative Negative - 1999(20) ++++ mg/dL [facility] Spec Grav, UA 1.020 1 - 1.03 [facility] Urobilinogen, UA 0.2 0.2 - 12 mg/dL [facility] HCG ( test) Ql (U)o n 07-03-2023 Interpretation and review of laboratory results Abnormal [facility] Preg Test, Ur Negative [facility] Healthcare Urinalysis macro (dipstick) panel (U)on 07-03-2023 Bilirubin, UA Negative Negative - 4(70) +++ mg/dL [facility] Blood, UA Negative Negative - 50 William/mcL [facility] Clarity, UA Clear [facility] Color, UA Yellow [facility] Glucose, UA Negative Negative - 1999(110) ++++ mg/dL [facility] Interpretation and review of laboratory results Normal [facility] Ketones, UA Negative Negative - 160(16) ++++ mg/dL [facility] Leukocytes, UA Negative Negative - 500+++ Gerald/mcL [facility] Nitrite, UA Negative Negative - Positive [facility] pH, UA 5.5 5 - 9 [facility] Protein, UA Negative Negative - 1999(20) ++++ mg/dL [facility] Spec Grav, UA 1.010 1 - 1.03 [facility] Urobilinogen, UA 1.0 0.2 - 12 mg/dL [facility] XR FOOT RT MIN 3 VIEWSon [...] PADDY SAPP Date: 2022-08-30 14:42 Normal [facility] CBC AUTO DIFFon 06-28-2022 BASO # 0.0 103/ul Normal 0.0-0.1 [facility] Comment on above: Performed By: #### C BC #### [facility] [address] [place] [address] Dr. Jerald Poon Basophils/100 WBC (Bld) 0.3 % Normal 0.2-2.0 [facility] Comment on above: Performed By: #### C BC #### [facility] [address] [address] [address] Jerald Poon EO # 0.1 103/ul Normal 0.0-0.7 [facility] Comment on above: Performed By: #### C BC #### [facility] [address] [place] [address] Dr. Jerald Poon Eosinophils/100 WBC (Bld) 1.1 % Normal 0.9-7.0 [facility] Comment on above: Performed By: #### C BC #### [facility] [address] [place] [address] Dr. Jerald Poon Erythrocyte distribution width (RBC) [Ratio] 14.5 % Normal 11.0-15.0 [facility] Comment on above: Performed By: #### C BC #### [facility] [address] [place] [address] Dr. Jerald Poon Hematocrit (Bld) [Volume fraction] 36.7 % Normal 36.0-48.0 [facility] Comment on above: Performed By: #### C BC #### [facility] [address] [place] [address] Dr. Jerald Poon Hemoglobin (Bld) [Mass/Vol] 13.0 g/dL Normal 12.0-16.0 [facility] Comment on above: Performed By: #### C BC #### [facility] [address] [place] [address] Dr. Jerald Poon IG # 0.04 10e3/ul Critically high 0.00-0.03 [facility] Comment on above: Performed By: #### C BC #### [facility] [address] [place] [address] Dr. Jerald Poon IG % 0.3 % Normal 0.0-0.5 [facility] Comment on above: Performed By: #### C BC #### [facility] [address] [place] [address] Dr. Jerald Poon LYMPH # 3.0 103/ul Normal 1.2-3.8 [facility] Comment on above: Performed By: #### C BC #### [facility] [address] [place] [address] Dr. Jerald Poon Lymphocytes/100 WBC (Bld) 26.2 % Normal 20.5-60.0 [facility] Comment on above: Performed By: #### C BC #### [facility] [address] [place] [address] Dr. Jerald Poon MANUAL DIFF REQ NO Normal [facility] Comment on above: Performed By: #### C BC #### [facility] [address] [place] [address] Dr. Jerald Poon MCH (RBC) [Entitic mass] 27.1 pg Normal 26.7-34.0 [facility] Comment on above: Performed By: #### C BC #### [facility] [address] [address] [address] Jerald Poon MCHC (RBC) [Mass/Vol] 35.4 g/dL Critically high 29.9-35.2 [facility] Comment on above: Performed By: #### C BC #### [facility] [address] [address] [address] Jerald Poon MCV (RBC) [Entitic vol] 76.6 fL Critically low 81.0-99.0 [facility] Comment on above: Performed By: #### C BC #### [facility] [address] [place] [address] Dr. Jerald Poon MONO # 0.8 103/ul Normal 0.3-0.8 [facility] Comment on above: Performed By: #### C BC #### [facility] [address] [place] [address] Dr. Jerald Poon Monocytes/100 WBC (Bld) 7.0 % Normal 1.7-12.0 [facility] Comment on above: Performed By: #### C BC #### [facility] [address] [place] [address] Dr. Jerald Poon NEUT # 7.5 103/ul Critically high 1.4-6.5 [facility] Comment on above: Performed By: #### C BC #### [facility] [address] [place] [address] Dr. Jerald Poon Neutrophils/100 WBC (Bld) 65.1 % Normal 43.0-75.0 [facility] Comment on above: Performed By: #### C BC #### [facility] [address] [address] [address] Jerald Poon Platelet mean volume (Bld) [Entitic vol] 10.0 fL Normal 9.5-13.5 [facility] Comment on above: Performed By: #### C BC #### [facility] [address] [place] [address] Dr. Jerald Poon PLT 387 103/ul Normal 150-450 [facility] Comment on above: Performed By: #### C BC #### [facility] [address] [place] [address] Dr. Jerald Poon RBC 4.79 106/ul Normal 4.20-5.40 [facility] Comment on above: Performed By: #### C BC #### [facility] [address] [place] [address] Dr. Jerald Poon WBC 11.6 103/ul Critically high 4.0-11.0 [facility] Comment on above: Performed By: #### C BC #### [facility] [address] [place] [address] Dr. Jerald Poon CULTURE URINEon 06-28-2022 CULTURE URINE Culture Observations: LIGHT GROWTH OF MIXED GENITAL ZACARIAS. NO POTENTIAL PATHOGENS SEEN. Normal [facility] Comment on above: Performed By: #### U RCX #### [facility] [address] [place] [address] Dr. Jerald Poon ER URINE PROFILEon 3 Bilirubin Ql (U) Negative Normal NEGATIVE [facility] Comment on above: Performed By: #### U MICRO, ERUR #### [facility] [address] [place] [address] Dr. Jerald Poon Clarity (U) CLEAR Normal CLEAR [facility] Comment on above: Performed By: #### U MICRO, ERUR #### [facility] [address] [place] [address] Dr. Jerald Poon Color (U) YELLOW Normal YELLOW [facility] Comment on above: Performed By: #### U MICRO, ERUR #### [facility] [address] [place] [address] Dr. Jerald CEBALLOS A micrscopic examination will be performed if indicated. Normal [facility] Comment on above: Performed By: #### U MICRO, ERUR #### [facility] [address] [place] [address] Dr. Jerald Poon Glucose Ql (U) Negative Normal NEGATIVE [facility] Comment on above: Performed By: #### U MICRO, ERUR #### [facility] [address] [address] [address] Jerald Poon Hemoglobin Ql (U) Negative Normal NEGATIVE [facility] Comment on above: Performed By: #### U MICRO, ERUR #### [facility] [address] [address] [address] Jerald Poon Ketones Ql (U) 40 mg/dl Abnormal NEGATIVE [facility] Comment on above: Performed By: #### U MICRO, ERUR #### [facility] [address] [address] [address] Jerald Poon LEUKOCYTES TRACE Abnormal NEGATIVE [facility] Comment on above: Performed By: #### U MICRO, ERUR #### [facility] [address] [place] [address] Dr. Jerald Poon Nitrite Ql (U) Negative Normal NEGATIVE [facility] Comment on above: Performed By: #### U MICRO, ERUR #### [facility] [address] [place] [address] Dr. Jerald Poon pH (U) 6.0 [pH] Normal 5-9 [facility] Comment on above: Performed By: #### U MICRO, ERUR #### [facility] [address] [place] [address] Dr. Jerald Poon SPEC GRAVITY >=1.030 Abnormal 1.005-<=1.02 5 [facility] Comment on above: Performed By: #### U MICRO, ERUR #### [facility] [address] [place] [address] Dr. Jerald Poon UA PROTEIN Negative Normal NEGATIVE/ TRACE [facility] Comment on above: Performed By: #### U MICRO, ERUR #### [facility] [address] [place] [address] Dr. Jerald Poon UR MICRO IND INDICATED Normal [facility] Comment on above: Performed By: #### U MICRO, ERUR #### [facility] [address] [place] [address] Dr. Jerald Poon Urobilinogen Qn (U) 0.2 {Lyly'U}/dL Normal 0.2 - 1. 0 [facility] Comment on above: Performed By: #### U MICRO, ERUR #### [facility] [address] [place] [address] Dr. Jerald Poon PREG QUANT HCGon 06-28-2022 HCG QUANT <1 Normal [facility] Comment on above: Performed By: #### P REGQNT #### [facility] [address] [place] [address] Dr. Jerald Poon HCG RANGE SEE BELOW Normal [facility] Comment on above: Result Comment: 5-50 0.2-1 WEEK 50-500 1-2 WEEKS 100-5,000 2-3 WEEKS 500-10,000 3-4 WEEKS 1,000-50,000 4-5 WEEKS 10,000-100,000 5-6 WEEKS 15,000-200,000 6-8 WEEKS 10,000-100,000 2-3 MONTHS Performed By: #### P REGQNT #### [facility] [address] [place] [address] Dr. Jerald Poon PROF CHEM 8 (BAS METB)on Anion gap [Moles/Vol] 14.0 mmol/L Normal [facility] Comment on above: Performed By: #### C BC #### [facility] [address] [place] [address] Dr. Jerald Poon Calcium [Mass/Vol] 9.6 mg/dL Normal 8.5-10.1 [facility] Comment on above: Performed By: #### C BC #### [facility] [address] [place] [address] Dr. Jerald Poon Chloride [Moles/Vol] 101 mmol/L Normal 98-107 [facility] Comment on above: Performed By: #### C BC #### [facility] [address] [place] [address] Dr. Jerald Poon CO2 [Moles/Vol] 25.4 mmol/L Normal 21.0-32.0 [facility] Comment on above: Performed By: #### C BC #### [facility] [address] [place] [address] Dr. Jerald Poon Creatinine [Mass/Vol] 0.92 mg/dL Normal 0.55-1.02 [facility] Comment on above: Performed By: #### C BC #### [facility] [address] [place] [address] Dr. Jerald Poon EGFR-AF MONEGASQUE >60 Normal >=60 [facility] Comment on above: Performed By: #### C BC #### [facility] [address] [address] [address] Jerald Poon EGFR-NON AF MONEGASQUE >60 Normal >=60 [facility] Comment on above: Performed By: #### C BC #### [facility] [address] [place] [address] Dr. Jerald Poon Glucose [Mass/Vol] 101 mg/dL Normal 74-106 [facility] Comment on above: Performed By: #### C BC #### [facility] [address] [place] [address] Dr. Jerald Poon Potassium [Moles/Vol] 3.4 mmol/L Critically low 3.5-5.1 [facility] Comment on above: Performed By: #### C BC #### [facility] [address] [place] [address] Dr. Jerald Poon Sodium [Moles/Vol] 137 mmol/L Normal 136-145 [facility] Comment on above: Performed By: #### C BC #### [facility] [address] [place] [address] Dr. Jerald Poon Urea nitrogen [Mass/Vol] 11.0 mg/dL Normal 7.0-18.0 [facility] Comment on above: Performed By: #### C BC #### [facility] [address] [place] [address] Dr. Jerald Poon Urea nitrogen/Creatinine [Mass ratio] 12.0 mg/mg Normal [facility] Comment on above: Performed By: #### C BC #### [facility] [address] [place] [address] Dr. Jerald Poon TSHon 01-27-2023 TSH 1.319 uIU/mL Normal 0.358-3.740 [facility] Comment on above: Performed By: #### C BC #### [facility] [address] [place] [address] Dr. Jerald Poon URINE MICROSCOPIC ONLYon BACTERIA SMALL Abnormal NONE SEEN [facility] Comment on above: Performed By: #### U MICRO, ERUR #### [facility] [address] [place] [address] Dr. Jerald Poon Bacteria identified Cx Nom (U) INDICATED Normal [facility] Comment on above: Performed By: #### U MICRO, ERUR #### [facility] [address] [place] [address] Dr. Jerald Poon CAST NONE SEEN Normal NONE SEEN [facility] Comment on above: Performed By: #### U MICRO, ERUR #### [facility] [address] [place] [address] Dr. Jerald Poon Crystals LM Nom (Urine sed) NONE SEEN Normal NONE SEEN [facility] Comment on above: Performed By: #### U MICRO, ERUR #### [facility] [address] [place] [address] Dr. Jerald Poon Epithelial cells LM Ql (Urine sed) FEW Abnormal NONE SEEN /RARE [facility] Comment on above: Performed By: #### U MICRO, ERUR #### [facility] [address] [place] [address] Dr. Jerald Poon MUCOUS NONE SEEN Normal NONE SEEN [facility] Comment on above: Performed By: #### U MICRO, ERUR #### [facility] [address] [place] [address] Dr. Jerald Poon RBC NONE SEEN Abnormal 0-2 [facility] Comment on above: Performed By: #### U MICRO, ERUR #### [facility] [address] [place] [address] Dr. Jerald Poon WBC 2-5 Abnormal NONE SEEN [facility] Comment on above: Performed By: #### U MICRO, ERUR #### [facility] [address] [place] [address] Dr. Jerald Poon CBC AUTO DIFFon 04-01-2022 BASO # 0.0 103/ul Normal 0.0-0.1 [facility] Comment on above: Performed By: #### C BC #### [facility] [address] [place] [address] Dr. Jerald Poon Basophils/100 WBC (Bld) 0.5 % Normal 0.2-2.0 [facility] Comment on above: Performed By: #### C BC #### [facility] [address] [place] [address] Dr. Jerald Poon EO # 0.1 103/ul Normal 0.0-0.7 [facility] Comment on above: Performed By: #### C BC #### [facility] [address] [place] [address] Dr. Jerald Poon Eosinophils/100 WBC (Bld) 1.7 % Normal 0.9-7.0 [facility] Comment on above: Performed By: #### C BC #### [facility] [address] [place] [address] Dr. Jerald Poon Erythrocyte distribution width (RBC) [Ratio] 14.2 % Normal 11.0-15.0 [facility] Comment on above: Performed By: #### C BC #### [facility] [address] [place] [address] Dr. Jerald Poon Hematocrit (Bld) [Volume fraction] 36.7 % Normal 36.0-48.0 [facility] Comment on above: Performed By: #### C BC #### [facility] [address] [place] [address] Dr. Jerald Poon Hemoglobin (Bld) [Mass/Vol] 12.1 g/dL Normal 12.0-16.0 [facility] Comment on above: Performed By: #### C BC #### [facility] [address] [place] [address] Dr. Jerald Poon IG # 0.01 10e3/ul Normal 0.00-0.03 [facility] Comment on above: Performed By: #### C BC #### [facility] [address] [place] [address] Dr. Jerald Poon IG % 0.1 % Normal 0.0-0.5 [facility] Comment on above: Performed By: #### C BC #### [facility] [address] [place] [address] Dr. Jerald Poon LYMPH # 2.3 103/ul Normal 1.2-3.8 [facility] Comment on above: Performed By: #### C BC #### [facility] [address] [place] [address] Dr. Jerald Poon Lymphocytes/100 WBC (Bld) 30.8 % Normal 20.5-60.0 [facility] Comment on above: Performed By: #### C BC #### [facility] [address] [place] [address] Dr. Jerald Poon MANUAL DIFF REQ NO Normal [facility] Comment on above: Performed By: #### C BC #### [facility] [address] [place] [address] Dr. Jerald Poon MCH (RBC) [Entitic mass] 27.3 pg Normal 26.7-34.0 [facility] Comment on above: Performed By: #### C BC #### [facility] [address] [place] [address] Dr. Jerald Poon MCHC (RBC) [Mass/Vol] 33.0 g/dL Normal 29.9-35.2 [facility] Comment on above: Performed By: #### C BC #### [facility] [address] [place] [address] Dr. Jerald Poon MCV (RBC) [Entitic vol] 82.7 fL Normal 81.0-99.0 [facility] Comment on above: Performed By: #### C BC #### [facility] [address] [place] [address] Dr. Jerald Poon MONO # 0.8 103/ul Normal 0.3-0.8 [facility] Comment on above: Performed By: #### C BC #### [facility] Laboratory [address] [place] [address] Dr. Jerald Poon Monocytes/100 WBC (Bld) 10.6 % Normal 1.7-12.0 [facility] Comment on above: Performed By: #### C BC #### [facility] [address] [place] [address] Dr. Jerald Poon NEUT # 4.2 103/ul Normal 1.4-6.5 [facility] Comment on above: Performed By: #### C BC #### [facility] [address] [place] [address] Dr. Jerald Poon Neutrophils/100 WBC (Bld) 56.3 % Normal 43.0-75.0 [facility] Comment on above: Performed By: #### C BC #### [facility] [address] [place] [address] Dr. Jerald Poon Platelet mean volume (Bld) [Entitic vol] 10.2 fL Normal 9.5-13.5 [facility] Comment on above: Performed By: #### C BC #### [facility] [address] [place] [address] Dr. Jerald Poon PLT 375 103/ul Normal 150-450 [facility] Comment on above: Performed By: #### C BC #### [facility] [address] [place] [address] Dr. Jerald Poon RBC 4.44 106/ul Normal 4.20-5.40 [facility] Comment on above: Performed By: #### C BC #### [facility] [address] [place] [address] Dr. Jerald Poon WBC 7.5 103/ul Normal 4.0-11.0 [facility] Comment on above: Performed By: #### C BC #### [facility] [address] [place] [address] Dr. Jerald Poon ER URINE PROFILEon 2 Bilirubin Ql (U) Negative Normal NEGATIVE [facility] Comment on above: Performed By: #### C BC #### [facility] [address] [place] [address] Dr. Jerald Poon Clarity (U) CLEAR Normal CLEAR [facility] Comment on above: Performed By: #### C BC #### [facility] [address] [place] [address] Dr. Jerald Poon Color (U) YELLOW Normal YELLOW [facility] Comment on above: Performed By: #### C BC #### [facility] [address] [place] [address] Dr. Jerald CEBALLOS A micrscopic examination will be performed if indicated. Normal [facility] Comment on above: Performed By: #### C BC #### [facility] [address] [place] [address] Dr. Jerald Poon Glucose Ql (U) Negative Normal NEGATIVE [facility] Comment on above: Performed By: #### C BC #### [facility] [address] [place] [address] Dr. Jerald Poon Hemoglobin Ql (U) Negative Normal NEGATIVE [facility] Comment on above: Performed By: #### C BC #### [facility] [address] [place] [address] Dr. Jerald Poon Ketones Ql (U) Negative Normal NEGATIVE [facility] Comment on above: Performed By: #### C BC #### [facility] [address] [place] [address] Dr. Jerald Poon LEUKOCYTES Negative Normal NEGATIVE [facility] Comment on above: Performed By: #### C BC #### [facility] [address] [place] [address] Dr. Jerald Poon Nitrite Ql (U) Negative Normal NEGATIVE [facility] Comment on above: Performed By: #### C BC #### [facility] [address] [place] [address] Dr. Jerald Poon pH (U) 7.0 [pH] Normal 5-9 [facility] Comment on above: Performed By: #### C BC #### [facility] [address] [place] [address] Dr. Jerald Poon SPEC GRAVITY 1.025 Normal 1.005-<=1.02 5 [facility] Comment on above: Performed By: #### C BC #### [facility] [address] [place] [address] Dr. Jerald Poon UA PROTEIN Negative Normal NEGATIVE/ TRACE [facility] Comment on above: Performed By: #### C BC #### [facility] [address] [place] [address] Dr. Jerald Poon UR MICRO IND NOT INDICATED Normal [facility] Comment on above: Performed By: #### C BC #### [facility] [address] [place] [address] Dr. Jerald Poon Urobilinogen Qn (U) 1.0 {Lyly'U}/dL Normal 0.2 - 1. 0 [facility] Comment on above: Performed By: #### C BC #### [facility] [address] [place] [address] Dr. Jerald Poon PREG QUANT HCGon 04-01-2022 HCG QUANT 1 mIU/mL Normal [facility] Comment on above: Performed By: #### P REGQNT #### [facility] [address] [place] [address] Dr. Jerald Poon HCG RANGE SEE BELOW Normal [facility] Comment on above: Result Comment: 5-50 0.2-1 WEEK 50-500 1-2 WEEKS 100-5,000 2-3 WEEKS 500-10,000 3-4 WEEKS 1,000-50,000 4-5 WEEKS 10,000-100,000 5-6 WEEKS 15,000-200,000 6-8 WEEKS 10,000-100,000 2-3 MONTHS Performed By: #### P REGQNT #### [facility] [address] [place] [address] Dr. Jerald Poon PROF 14(COMP METB)on 022 Albumin [Mass/Vol] 3.6 g/dL Normal 3.4-5.0 [facility] Comment on above: Performed By: #### C MP #### [facility] [address] [place] [address] Dr. Jerald Poon Albumin/Globulin [Mass ratio] 0.8 {ratio} Normal [facility] Comment on above: Performed By: #### C MP #### [facility] [address] [place] [address] Dr. Jerald Poon ALP [Catalytic activity/Vol] 65 U/L Normal 46-116 [facility] Comment on above: Performed By: #### C MP #### [facility] [address] [place] [address] Dr. Jerald Poon ALT [Catalytic activity/Vol] 22 U/L Normal 14-59 [facility] Comment on above: Performed By: #### C MP #### [facility] [address] [address] [address] Jerald Poon Anion gap [Moles/Vol] 10.3 mmol/L Normal [facility] Comment on above: Performed By: #### C MP #### [facility] [address] [place] [address] Dr. Jerald Poon AST [Catalytic activity/Vol] 14 U/L Critically low 15-37 [facility] Comment on above: Performed By: #### C MP #### [facility] [address] [place] [address] Dr. Jerald Poon Bilirubin [Mass/Vol] 0.1 mg/dL Critically low 0.2-1.0 [facility] Comment on above: Performed By: #### C MP #### [facility] [address] [place] [address] Dr. Jerald Poon Calcium [Mass/Vol] 8.6 mg/dL Normal 8.5-10.1 [facility] Comment on above: Performed By: #### C MP #### [facility] [address] [place] [address] Dr. Jerald Poon Chloride [Moles/Vol] 104 mmol/L Normal 98-107 [facility] Comment on above: Performed By: #### C MP #### [facility] [address] [address] [address] Jerald Poon CO2 [Moles/Vol] 28.1 mmol/L Normal 21.0-32.0 [facility] Comment on above: Performed By: #### C MP #### [facility] [address] [address] [address] Jerald Poon Creatinine [Mass/Vol] 0.99 mg/dL Normal 0.55-1.02 [facility] Comment on above: Performed By: #### C MP #### [facility] [address] [address] [address] Jerald Poon EGFR-AF MONEGASQUE >60 Normal >=60 [facility] Comment on above: Performed By: #### C MP #### [facility] [address] [address] [address] Jerald Poon EGFR-NON AF MONEGASQUE >60 Normal >=60 [facility] Comment on above: Performed By: #### C MP #### [facility] [address] [address] [address] Jerald Poon Globulin (S) [Mass/Vol] 4.5 g/dL Normal [facility] Comment on above: Performed By: #### C MP #### [facility] [address] [place] [address] Dr. Jerald Poon Glucose [Mass/Vol] 94 mg/dL Normal 74-106 [facility] Comment on above: Performed By: #### C MP #### [facility] [address] [address] [address] Jerald Poon Potassium [Moles/Vol] 3.4 mmol/L Critically low 3.5-5.1 [facility] Comment on above: Performed By: #### C MP #### [facility] [address] [place] [address] Dr. Jerald Poon Protein [Mass/Vol] 8.1 g/dL Normal 6.4-8.2 [facility] Comment on above: Performed By: #### C MP #### [facility] [address] [address] [address] Jerald Poon Sodium [Moles/Vol] 139 mmol/L Normal 136-145 [facility] Comment on above: Performed By: #### C MP #### [facility] [address] [address] [address] Jerald Poon Urea nitrogen [Mass/Vol] 8.0 mg/dL Normal 7.0-18.0 [facility] Comment on above: Performed By: #### C MP #### [facility] [address] [place], [place] [address] Dr. Jerald Poon Urea nitrogen/Creatinine [Mass ratio] 8.1 mg/mg Normal [facility] Comment on above: Performed By: #### C MP #### [facility] [address] [place], [place] [address] Dr. Jerald Poon US PELVIS TRANSVAGon 022 [...] LUH MANRIQUE Date: 2022-04-01 21:55 Normal [facility] Automated erythrocytes count in urine sediment (number/area)Ordered By: Anders Sesay on 10-19-2021 RBC Auto (Urine sed) [#/Area] 1-2 [HPF] [facility] Automated leukocytes count i n urine sediment (number/area)Ordered By: Anders Sesay on 10-19-2021 WBC Auto (Urine sed) [#/Area] 3-4 [HPF] [facility] Basophils Auto (Bld) [#/Vol] Ordered By: Anders Sesay on 10-19-2021 Basophils (Bld) [#/Vol] 0.1 10*3/uL 0.0-0.2 [facility] Basophils/100 WBC Auto (Bld) Ordered By: Anders Sesay on 10-19-2021 Basophils/100 WBC (Bld) 0.6 % [facility] Bilirubin Test strip Ql (U)O rdered By: Anders Sesay on 10-19-2021 Bilirubin Ql (U) Negative Negative [facility] Blood hemoglobin measurement (mass/volume)Ordered By: Anders Sesay on 10-19-2021 Hemoglobin (Bld) [Mass/Vol] 13.2 g/dL 11.8-15.4 [facility] Blood leukocytes automated c ount (number/volume)Ordered By: Anders Sesay on 10-19-2021 WBC (Bld) [#/Vol] 9.1 10*3/uL 4.5-11.0 [facility] Body fluid albumin measureme nt (mass/volume)Ordered By: Anders Sesay on 10-19-2021 Albumin (Body fld) [Mass/Vol] 3.8 g/dL 3.2-5.5 [facility] Color Auto (U)Ordered By: Jason Sesay on 10-19-2021 Color (U) Yellow Yellow [facility] Creatinine and Glomerular fi ltration rate.predicted panel (S/P/Bld)Ordered By: Anders Sesay on 10-19-2021 Creatinine [Mass/Vol] 0.87 mg/dL 0.44-1.03 [facility] Eosinophils Auto (Bld) [#/Vo l]Ordered By: Anders Sesay on 10-19-2021 Eosinophils (Bld) [#/Vol] 0.1 10*3/uL 0.0-0.45 [facility] Eosinophils/100 WBC Auto (Bl d)Ordered By: Anders Sesay on 10-19-2021 Eosinophils/100 WBC (Bld) 0.9 % [facility] Erythrocyte distribution wid th Auto (RBC) [Ratio]Ordered By: Anders Sesay on 10-19-2021 Erythrocyte distribution width (RBC) [Ratio] 16.4 % 11.9-15.3 [facility] Estimated glomerular filtrat ion rate (GFR) non- AmericanOrdered By: Anders Sesay on 10-19-2021 GFR/1.73 sq M.predicted among non-blacks MDRD (S/P/Bld) [Vol rate/Area] > 60 mL/Min [facility] Globulin Calc (S) [Mass/Vol] Ordered By: Anders Sesay on 10-19-2021 Globulin (S) [Mass/Vol] 4.3 g/dL [facility] HCG ( test) IA.rapi d Ql (U)Ordered By: Anders Sesay on 10-19-2021 HCG ( test) Ql (U) Negative [facility] Hematocrit Auto (Bld) [Volum e fraction]Ordered By: Anders Sesay on 10-19-2021 Hematocrit (Bld) [Volume fraction] 40.2 % 34.0-46.4 [facility] Ketones Auto test strip (U) [Mass/Vol]Ordered By: Anders Sesay on 10-19-2021 Ketones (U) [Mass/Vol] Negative Negative [facility] - Hematology and Cell countsOrdered By: Anders Sesay on 10-19-2021 Nucleated RBC/100 WBC (Bld) [Ratio] 0.2 % 0-0.5 [facility] - UrinalysisOrder ed By: Anders Sesay on 10-19-2021 Hyaline casts LM Ql (Urine sed) 0-8 [LPF] [facility] Lymphocytes Auto (Bld) [#/Vo l]Ordered By: Anders Sesay on 10-19-2021 Lymphocytes (Bld) [#/Vol] 2.4 10*3/uL 1.00-4.8 [facility] Lymphocytes/100 WBC Auto (Bl d)Ordered By: Anders Sesay on 10-19-2021 Lymphocytes/100 WBC (Bld) 26.7 % [facility] MCH Auto (RBC) [Entitic mass ]Ordered By: Anders Sesay on 10-19-2021 MCH (RBC) [Entitic mass] 26.3 pg 24.7-34.3 [facility] MCHC Auto (RBC) [Mass/Vol]Or dered By: Anders Sesay on 10-19-2021 MCHC (RBC) [Mass/Vol] 32.9 g/dL 32.0-35.0 [facility] MCV Auto (RBC) [Entitic vol] Ordered By: Anders Sesay on 10-19-2021 MCV (RBC) [Entitic vol] 80.1 fL 80-100 [facility] Monocytes Auto (Bld) [#/Vol] Ordered By: Anders Sesay on 10-19-2021 Monocytes (Bld) [#/Vol] 0.7 10*3/uL 0.0-0.8 [facility] Monocytes/100 WBC Auto (Bld) Ordered By: Anders Sesay on 10-19-2021 Monocytes/100 WBC (Bld) 7.6 % [facility] Neutrophils Auto (Bld) [#/Vo l]Ordered By: Anders Sesay on 10-19-2021 Neutrophils (Bld) [#/Vol] 5.8 10*3/uL 1.8-7.7 [facility] Neutrophils/100 WBC Auto (Bl d)Ordered By: Anders Sesay on 10-19-2021 Neutrophils/100 WBC (Bld) 64.2 % [facility] Nitrite Test strip Ql (U)Ord ered By: Anders Sesay on 10-19-2021 Nitrite Ql (U) Negative Negative [facility] No Panel InformationOrdered By: Anders Sesay on 10-19-2021 Estimated GFR () > 60 mL/Min [facility] Comment on above: GFR estimated refere nce range: According to KDOQI guidelines, <60 ml/min/1.73m2 is sufficient to diagnose a patient with chronic kidney disease. Pharmacy Creatinine Clearance (Chem 147.41 [facility] Platelet mean volume Auto (B ld) [Entitic vol]Ordered By: Anders Sesay on 10-19-2021 Platelet mean volume (Bld) [Entitic vol] 8.6 fL 6.3-10.7 [facility] Platelets Auto (Bld) [#/Vol] Ordered By: Anders Sesay on 10-19-2021 Platelets (Bld) [#/Vol] 395 10*3/uL 150-450 [facility] Protein Auto test strip (U) [Mass/Vol]Ordered By: Anders Sesay on 10-19-2021 Protein (U) [Mass/Vol] Negative Negative [facility] Protein [Mass/volume] in Ser um or PlasmaOrdered By: Anders Sesay on 10-19-2021 Protein [Mass/Vol] 8.1 g/dL 6.1-7.9 [facility] RBC Auto (Bld) [#/Vol]Ordere d By: Anders Sesay on 10-19-2021 RBC (Bld) [#/Vol] 5.02 10*6/uL 3.60-5.00 [facility] Serum or plasma alanine ayoub otransferase measurement without P-5'-P (enzymatic activiOrdered By: Anders Sesay on 10-19-2021 ALT No additional P-5'-P [Catalytic activity/Vol] 20 U/L 10-60 [facility] Serum or plasma albumin/glob ulin mass ratioOrdered By: Anders Sesay on 10-19-2021 Albumin/Globulin [Mass ratio] 0.9 {ratio} [facility] Serum or plasma alkaline cosmo sphatase measurement (enzymatic activity/volume)Ordered By: Anders Sesay on 10-19-2021 ALP [Catalytic activity/Vol] 55 U/L 32-92 [facility] Serum or plasma aspartate am inotransferase measurement (enzymatic activity/volume)Ordered By: Anders Sesay on 10-19-2021 AST [Catalytic activity/Vol] 17 U/L 10-42 [facility] Serum or plasma calcium joann urement (mass/volume)Ordered By: Anders Sesay on 10-19-2021 Calcium [Mass/Vol] 9.1 mg/dL 8.2-10.2 [facility] Serum or plasma chloride adan surement (moles/volume)Ordered By: Anders Sesay on 10-19-2021 Chloride [Moles/Vol] 103 mmol/L 95-114 [facility] Serum or plasma glucose joann urement (mass/volume)Ordered By: Anders Sesay on 10-19-2021 Glucose [Mass/Vol] 105 mg/dL 70-100 [facility] Comment on above: ADA recommended refe rence range Random Glucose Reference Range is dependent on time and content of last meal. Glucose of more than 200 mg/dL in a nonstressed, ambulatory subject supports the diagnosis of Diabetes Mellitus. Serum or plasma potassium me asurement (moles/volume)Ordered By: Anders Sesay on 10-19-2021 Potassium [Moles/Vol] 3.7 mmol/L 3.5-5.1 [facility] Serum or plasma sodium measu rement (moles/volume)Ordered By: Anders Sesay on 10-19-2021 Sodium [Moles/Vol] 137 mmol/L 136-146 [facility] Serum or plasma total biliru bin measurement (mass/volume)Ordered By: Anders Sesay on 10-19-2021 Bilirubin [Mass/Vol] 0.3 mg/dL 0.3-1.2 [facility] Serum or plasma total carbon dioxide measurement (moles/volume)Ordered By: Anders Sesay on 10-19-2021 CO2 [Moles/Vol] 24.2 mmol/L 22.0-30.0 [facility] Serum or plasma urea nitroge n measurement (mass/volume)Ordered By: Anders Sesay on 10-19-2021 Urea nitrogen [Mass/Vol] 7 mg/dL 9-23 [facility] Specific gravity Auto test s trip (U) [Rel density]Ordered By: Anders Sesay on 10-19-2021 Specific gravity (U) [Rel density] 1.014 1.001-1.030 [facility] Squamous epithelial cells de tection in urine sediment by light microscopyOrdered By: Anders Sesay on 10-19-2021 Epithelial cells.squamous LM Ql (Urine sed) 3-4 [HPF] [facility] Urine bacteria detection by automated methodOrdered By: Anders Sesay on 10-19-2021 Bacteria Auto Ql (U) 1+ None Seen [facility] Urine clarity by refractomet ry automatedOrdered By: Anders Sesay on 10-19-2021 Clarity Refractometry automated (U) Clear Clear [facility] Urine glucose measurement by automated test strip (mass/volume)Ordered By: Anders Sesay on 10-19-2021 Glucose Auto test strip (U) [Mass/Vol] Normal mg/dL Normal [facility] Urine hemoglobin detection b y automated test stripOrdered By: Anders Sesay on 10-19-2021 Hemoglobin Auto test strip Ql (U) Negative Negative [facility] Urine leukocyte esterase det ection by automated test stripOrdered By: Anders Sesay on 10-19-2021 Leukocyte esterase Auto test strip Ql (U) 1+ Negative [facility] Urobilinogen Auto test strip (U) [Mass/Vol]Ordered By: Anders Sesay on 10-19-2021 Urobilinogen (U) [Mass/Vol] Normal mg/dL Normal [facility] pH Auto test strip (U)Ordere d By: Anders Sesay on 10-19-2021 pH (U) 5.5 [pH] 5.0-9.0 [facility] US DUP ABD PEL RETRO SCROT [...] MD 07/14/20 Edited Result - FINAL Normal [facility] US NON OB TRANSVAGINALon US NON OB [...] MD 07/14/20 Edited Result - FINAL Normal [facility] Chlamydia/GC,DNA Ampon 07-10 Chlamydia Probe Negative Normal NEG [facility] Comment on above: Result Comment: CHLA MYDIA [...] Performed By: #### U HCG, UAMIC #### [facility] [address] [place], [place] [id number] Stamp Analyst: Campos Avilez MD Gonorrhea Probe Negative Normal NEG [facility] Comment on above: Result Comment: NEIS SERIA [...] Performed By: #### U HCG, UAMIC #### [facility] [address] [place], [place] [id number] Stamp Analyst: Campos Avilez MD Cult,Urineon 07-09-2020 Cult,Urine Specimen Description .CLEAN CATCH URINE Special Requests NOT REPORTED Culture ESCHERICHIA COLI >[id number] CFU/ML Report Status FINAL 07/09/2020 SUSCEPTIBILITY Organism [...] <=20 SUSCEPTIBLE Piperacillin/Tazobac her <=4 SUSCEPTIBLE Normal [facility] Comment on above: Performed By: #### U HCG, UAMIC #### [place] [address] Stamp Analyst: Campos Avilez MD ABO/Rh(D)on 07-08-2020 ABO/Rh(D) Positive Normal [facility] Comment on above: Performed By: #### A [facility] #### [place] [address] Stamp Analyst: Campos Avilez MD CBC with Diffon 07-08-2020 Abs. Basophil 0.04 k/uL Normal 0.00-0.20 [facility] Comment on above: Performed By: #### C P, CDP, COSMO, BHCG, MG, VD25, LIP #### [place] [address] Stamp Analyst: Campos Avilez MD Abs.Imm.Granulocyte 0.04 k/uL Normal 0.00-0.30 [facility] Comment on above: Performed By: #### C P, CDP, COSMO, BHCG, MG, VD25, LIP #### [facility] [address] [place] [address] Stamp Analyst: Campos Avilez MD Abs.Neutrophil (Seg) 8.16 k/uL High 1.80-8.00 [facility] Comment on above: Performed By: #### C P, CDP, COSMO, BHCG, MG, VD25, LIP #### [address] [address] Stamp Analyst: Campos Avilez MD Basophils/100 WBC (Bld) 0 % Normal 0-2 [facility] Comment on above: Performed By: #### C P, CDP, COSMO, BHCG, MG, VD25, LIP #### [address] [address] Stamp Analyst: Campos Avilez MD Eosinophils (Bld) [#/Vol] 0.10 10*3/uL Normal 0.00-0.44 [facility] Comment on above: Performed By: #### C P, CDP, COSMO, BHCG, MG, VD25, LIP #### [address] [address] Stamp Analyst: Campos Avilez MD Eosinophils/100 WBC (Bld) 1 % Normal 1-4 [facility] Comment on above: Performed By: #### C P, CDP, COSMO, BHCG, MG, VD25, LIP #### [address] [address] Stamp Analyst: Campos Avilez MD Erythrocyte distribution width (RBC) [Ratio] 14.0 % Normal 11.8-14.4 [facility] Comment on above: Performed By: #### C P, CDP, COSMO, BHCG, MG, VD25, LIP #### [address] [address] Stamp Analyst: Campos Avilez MD Hematocrit (Bld) [Volume fraction] 34.3 % Low 36.3-47.1 [facility] Comment on above: Performed By: #### C P, CDP, COSMO, BHCG, MG, VD25, LIP #### [address] [address] Stamp Analyst: Campos Avilez MD Hemoglobin (Bld) [Mass/Vol] 11.1 g/dL Low 11.9-15.1 [facility] Comment on above: Performed By: #### C P, CDP, COSMO, BHCG, MG, VD25, LIP #### [address] [address] Stamp Analyst: Campos Avilez MD Immature granulocytes (Bld) [#/Vol] 0 % Normal 0 [facility] Comment on above: Performed By: #### C P, CDP, COSMO, BHCG, MG, VD25, LIP #### [place] [address] Stamp Analyst: Campos Avilez MD Lymphocytes (Bld) [#/Vol] 1.77 10*3/uL Normal 1.20-5.20 [facility] Comment on above: Performed By: #### C P, CDP, COSMO, BHCG, MG, VD25, LIP #### [place] [address] Stamp Analyst: Campos Avilez MD Lymphocytes/100 WBC (Bld) 16 % Low 25-45 [facility] Comment on above: Performed By: #### C P, CDP, COSMO, BHCG, MG, VD25, LIP #### [place] [address] Stamp Analyst: Campos Avilez MD MCH (RBC) [Entitic mass] 26.6 pg Normal 25.0-35.0 [facility] Comment on above: Performed By: #### C P, CDP, COSMO, BHCG, MG, VD25, LIP #### [address] [address] Stamp Analyst: Campos Avilez MD MCHC (RBC) [Mass/Vol] 32.4 g/dL Normal 28.4-34.8 [facility] Comment on above: Performed By: #### C P, CDP, COSMO, BHCG, MG, VD25, LIP #### [address] [address] Stamp Analyst: Campos Avilez MD MCV (RBC) [Entitic vol] 82.3 fL Normal 78.0-102.0 [facility] Comment on above: Performed By: #### C P, CDP, COSMO, BHCG, MG, VD25, LIP #### [address] [address] Stamp Analyst: Campos Avilez MD Monocytes (Bld) [#/Vol] 0.73 10*3/uL Normal 0.10-1.40 [facility] Comment on above: Performed By: #### C P, CDP, COSMO, BHCG, MG, VD25, LIP #### [address] [address] Stamp Analyst: Campos Avilez MD Monocytes/100 WBC (Bld) 7 % Normal 2-8 [facility] Comment on above: Performed By: #### C P, CDP, COSMO, BHCG, MG, VD25, LIP #### [address] [address] Stamp Analyst: Campos Avilez MD Neutrophil (Seg) 75 % High 34-[address] [facility] Comment on above: Performed By: #### C P, CDP, COSMO, BHCG, MG, VD25, LIP #### [address] [address] Stamp Analyst: Campos Avilez MD NRBC Automated 0.0 per 100 WBC Normal 0.0 [facility] Comment on above: Performed By: #### C P, CDP, COSMO, BHCG, MG, VD25, LIP #### [address] [address] Stamp Analyst: Campos Avilez MD Platelet mean volume (Bld) [Entitic vol] 11.8 fL Normal 8.1-13.5 [facility] Comment on above: Performed By: #### C P, CDP, COSMO, BHCG, MG, VD25, LIP #### [address] [address] Stamp Analyst: Campos Avilez MD Platelets (Bld) [#/Vol] 288 10*3/uL Normal 138-453 [facility] Comment on above: Performed By: #### C P, CDP, COSMO, BHCG, MG, VD25, LIP #### [address] [address] Stamp Analyst: Campos Avilez MD RBC (Bld) [#/Vol] 4.17 10*6/uL Normal 3.95-5.11 [facility] Comment on above: Performed By: #### C P, CDP, COSMO, BHCG, MG, VD25, LIP #### [address] [address] Stamp Analyst: Campos Avilez MD WBC (Bld) [#/Vol] 10.8 10*3/uL Normal 4.5-13.5 [facility] Comment on above: Performed By: #### C P, CDP, COSMO, BHCG, MG, VD25, LIP #### [address] [address] Stamp Analyst: Campos Avilez MD Auto Diff Performed NOT REPORTED Normal [facility] Comment on above: Performed By: #### C P, CDP, COSMO, BHCG, MG, VD25, LIP #### [address] [address] Stamp Analyst: Campos Avilez MD Platelets (Bld) [#/Vol] NOT REPORTED Normal [facility] Comment on above: Performed By: #### C P, CDP, COSMO, BHCG, MG, VD25, LIP #### [id number] [place] [address] Stamp Analyst: Campos Avilez MD RBC morphology finding Nom (Bld) NOT REPORTED Normal [facility] Comment on above: Performed By: #### C P, CDP, COSMO, BHCG, MG, VD25, LIP #### [facility] [address] [place] [address] Stamp Analyst: Campos Avilez MD WBC Morphology NOT REPORTED Normal [facility] Comment on above: Performed By: #### C P, CDP, COSMO, BHCG, MG, VD25, LIP #### [address] [address] Stamp Analyst: Campos Avilez MD Calcium, [employer] 07-08-2020 Calcium [Mass/Vol] 1.18 mmol/L Normal 1.13-1.33 [facility] Comment on above: Performed By: #### I OCAL #### [address] [address] Stamp Analyst: Campos Avilez MD Calcium, Ionizedon Calcium [Mass/Vol] 1.18 mmol/L 1.13 - 1. 33 mmol/L [facility], [place] Comp Metabolic Profon 2020 (cont.) Normal [facility] Comment on above: Result Comment: Aver age GFR for <20 years old not available. Chronic Kidney Disease: <60 mL/min/1.73sq m Kidney failure: <15 mL/min/1.73sq m eGFR calculated using average adult body mass. Additional eGFR calculator available at: http://www.BlueKite.com/multiple_crcl_2012.htm Performed By: #### C P, CDP, COSMO, BHCG, MG, VD25, LIP #### [address] [address] Stamp Analyst: Campos Avilez MD Albumin [Mass/Vol] 2.3 g/dL Low 3.5-5.2 [facility] Comment on above: Performed By: #### C P, CDP, COSMO, BHCG, MG, VD25, LIP #### [address] [address] Stamp Analyst: Campos Avilez MD Albumin/Globulin [Mass ratio] 0.9 {ratio} Low 1.0-2.5 [facility] Comment on above: Performed By: #### C P, CDP, COSMO, BHCG, MG, VD25, LIP #### [address] [address] Stamp Analyst: Campos Avilez MD Alkaline Phos 41 U/L Normal 35-104 [facility] Comment on above: Result Comment: SPEC IMEN MODERATELY HEMOLYZED, RESULTS MAY BE ADVERSELY AFFECTED Performed By: #### C P, CDP, COSMO, BHCG, MG, VD25, LIP #### [address] [address] Stamp Analyst: Campos Avilez MD ALT [Catalytic activity/Vol] 11 U/L Normal 5-33 [facility] Comment on above: Result Comment: SPEC IMEN MODERATELY HEMOLYZED, RESULTS MAY BE ADVERSELY AFFECTED Performed By: #### C P, CDP, COSMO, BHCG, MG, VD25, LIP #### [address] [address] Stamp Analyst: Campos Avilez MD Anion gap [Moles/Vol] 9 mmol/L Normal 9-17 [facility] Comment on above: Performed By: #### C P, CDP, COSMO, BHCG, MG, VD25, LIP #### [address] [address] Stamp Analyst: Campos Avilez MD AST [Catalytic activity/Vol] 28 U/L Normal <32 [facility] Comment on above: Result Comment: SPEC IMEN MODERATELY HEMOLYZED, RESULTS MAY BE ADVERSELY AFFECTED Performed By: #### C P, CDP, COSMO, BHCG, MG, VD25, LIP #### [facility] [address] [place] [address] Stamp Analyst: Campos Avilez MD Bilirubin Ql (U) <0.10 Low 0.3-1.[address] [facility] Comment on above: Performed By: #### C P, CDP, COSMO, BHCG, MG, VD25, LIP #### [facility] [address] [place] [address] Stamp Analyst: Campos Avilez MD Calcium [Mass/Vol] 5.5 mg/dL Critically low 8.6-10.4 [facility] Comment on above: Performed By: #### C P, CDP, COSMO, BHCG, MG, VD25, LIP #### [facility] [address] [place] [address] Stamp Analyst: Campos Avilez MD Chloride [Moles/Vol] 118 mmol/L High 98-107 [facility] Comment on above: Performed By: #### C P, CDP, COSMO, BHCG, MG, VD25, LIP #### [facility] [address] [place] [address] Stamp Analyst: Campos Avilez MD CO2 [Moles/Vol] 14 mmol/L Low 20-31 [facility] Comment on above: Performed By: #### C P, CDP, COSMO, BHCG, MG, VD25, LIP #### [facility] [address] [place] [address] Stamp Analyst: Campos Avilez MD Creatinine [Mass/Vol] 0.60 mg/dL Normal 0.50-0.90 [facility] Comment on above: Performed By: #### C P, CDP, COSMO, BHCG, MG, VD25, LIP #### [address] [address] Stamp Analyst: Campos Avilez MD GFR,non Amer Pediatric GFR requires additional information. Refer to NKDEP website for Normal >60 [facility] Comment on above: Result Comment: calc ulator. Performed By: #### C P, CDP, COSMO, BHCG, MG, VD25, LIP #### [address] [address] Stamp Analyst: Campos Avilez MD Glucose [Mass/Vol] 84 mg/dL Normal 70-99 [facility] Comment on above: Performed By: #### C P, CDP, COSMO, BHCG, MG, VD25, LIP #### [address] [address] Stamp Analyst: Campos Avilez MD Potassium [Moles/Vol] 5.1 mmol/L Normal 3.7-5.3 [facility] Comment on above: Result Comment: SPEC IMEN MODERATELY HEMOLYZED, RESULTS MAY BE ADVERSELY AFFECTED Performed By: #### C P, CDP, COSMO, BHCG, MG, VD25, LIP #### [address] [address] Stamp Analyst: Campos Avilez MD Protein [Mass/Vol] 5.0 g/dL Low 6.4-8.3 [facility] Comment on above: Performed By: #### C P, CDP, COSMO, BHCG, MG, VD25, LIP #### [address] [address] Stamp Analyst: Campos Avilez MD Sodium [Moles/Vol] 141 mmol/L Normal 135-144 [facility] Comment on above: Performed By: #### C P, CDP, COSMO, BHCG, MG, VD25, LIP #### [address] [address] Stamp Analyst: Campos Avilez MD Urea nitrogen [Mass/Vol] 10 mg/dL Normal 6-20 [facility] Comment on above: Performed By: #### C P, CDP, COSMO, BHCG, MG, VD25, LIP #### [address] [address] Stamp Analyst: Campos Avilez MD BUN/CRE Ratio NOT REPORTED Normal 9-20 [facility] Comment on above: Performed By: #### C P, CDP, COSMO, BHCG, MG, VD25, LIP #### [facility] [address] [place] [address] Stamp Analyst: Campos Avilez MD GFR, Amer NOT REPORTED Normal >60 [facility] Comment on above: Performed By: #### C P, CDP, COSMO, BHCG, MG, VD25, LIP #### [facility] [address] [place] [address] Stamp Analyst: Campos Avilez MD Staging: NOT REPORTED Normal [facility] Comment on above: Performed By: #### C P, CDP, COSMO, BHCG, MG, VD25, LIP #### [facility] [address] [place] [address] Stamp Analyst: Campos Avilez MD HCG, ,Urineon 07-086 Beta HCG ( test) Ql (U) Negative Normal NEG [facility] Comment on above: Result Comment: Spec imens with hCG levels near the threshold of the test (25 mIU/mL) may give a negative or indeterminate result. In such cases, another test should be performed with a new specimen in 48-72 hours. If early is suspected clinically in this setting, correlation with quantitative serum b-hCG level is suggested. Performed By: #### U HCG, UAMIC #### [address] [address] Stamp Analyst: Campos Avilez MD HCG, Quanton 07-08-2020 HCG, Quant <1 Normal <5 [facility] Comment on above: Result Comment: Non-preg premeno [...] CDP, COSMO, BHCG, MG, VD25, LIP #### [facility] [address] [place] [address] Stamp Analyst: Campos Avilez MD Lipaseon 07-08-2020 Lipase [Catalytic activity/Vol] 15 U/L Normal 13-60 [facility] Comment on above: Performed By: #### C P, CDP, COSMO, BHCG, MG, VD25, LIP #### [facility] [address] [place] [address] Stamp Analyst: Campos Avilez MD Magnesiumon 07-08-2020 Magnesium [Mass/Vol] 1.2 mg/dL Low 1.7-2.2 [facility] Comment on above: Performed By: #### C P, CDP, COSMO, BHCG, MG, VD25, LIP #### [facility] [address] [place] [address] Stamp Analyst: Campos Avilez MD Interpretation and review of laboratory results Abnormal [place] Magnesium [Mass/Vol] 1.2 mg/dL Low 1.7 - 2 .2 mg/dL [place] Otheron 07-08-2020 Direct Exam Negative [place] , URINEon 1 Beta HCG ( test) Ql (U) Negative NEGATIVE [place] Comment on above: Specimens with hCG [...] 2.6 mg/dL 2.5 - 4 .8 mg/dL [place] Phosphorus, Inorg.on 021 Phosphorus, Inorg. 2.6 mg/dL Normal 2.5-4.8 [facility] Comment on above: Performed By: #### U HCG, UAMIC #### [facility] [address] [place] [address] Stamp Analyst: Campos Avilez MD NON OB TRANSVAGINALon Elia, Mhpn Incoming Radiant Results From [place] - 07/08/2020 12:31 AM EST EXAMINATION: PELVIC [...] No evidence of ovarian torsion is noted. [place] Unremarkable pelvic ultrasound. No evidence of ovarian torsion is noted. [place] EXAMINATION: PELVIC ULTRASOUND 07/07/2020 TECHNIQUE: Transvaginal [...] Free Fluid: No evidence of free fluid. [facility] [place], [place] Urinalysis w/ Microon 2020 ----- Normal [facility] Comment on above: Performed By: #### U HCG, UAMIC #### [address] [address] Stamp Analyst: Campos Avilez MD Acetoacetic Acid,Ur Negative Normal NEG [facility] Comment on above: Performed By: #### U HCG, UAMIC #### [address] [address] Stamp Analyst: Campos Avilez MD Bacteria LM.HPF (Urine sed) [#/Area] MANY Abnormal NONE [facility] Comment on above: Performed By: #### U HCG, UAMIC #### [address] [address] Stamp Analyst: Campos Avilez MD Bilirubin, SemiQt,Ur Negative Normal NEG [facility] Comment on above: Performed By: #### U HCG, UAMIC #### [address] [address] Stamp Analyst: Campos Avilez MD Color (U) ORANGE Abnormal YEL [facility] Comment on above: Result Comment: INTE RPRET WITH CAUTION DUE TO INTENSE COLOR OF URINE. Performed By: #### U HCG, UAMIC #### [address] [address] Stamp Analyst: Campos Avilez MD Epithelial cells LM.HPF (Urine sed) [#/Area] 0 TO 2 Normal 0-5 [facility] Comment on above: Performed By: #### U HCG, UAMIC #### [address] [address] Stamp Analyst: Campos Avilez MD Glucose Ql (U) Negative Normal NEG [facility] Comment on above: Performed By: #### U HCG, UAMIC #### [address] [address] Stamp Analyst: Campos Avilez MD Hemoglobin, Ur LARGE Abnormal NEG [facility] Comment on above: Performed By: #### U HCG, UAMIC #### [address] [address] Stamp Analyst: Campos Avilez MD Leukocyte esterase Test strip Ql (U) MODERATE Abnormal NEG [facility] Comment on above: Performed By: #### U HCG, UAMIC #### [address] [address] Stamp Analyst: Campos Avilez MD Nitrite,Ur Positive Abnormal NEG [facility] Comment on above: Performed By: #### U HCG, UAMIC #### [address] [address] Stamp Analyst: Campos Avilez MD pH (U) 5.5 [pH] Normal 5.0-8.0 [facility] Comment on above: Performed By: #### U HCG, UAMIC #### [address] [address] Stamp Analyst: Campos Avilez MD Protein Ql (U) 2+ Abnormal NEG [facility] Comment on above: Performed By: #### U HCG, UAMIC #### [address] [address] Stamp Analyst: Campos Avilez MD RBC (U) [#/Vol] 50 TO 100 Normal 0-4 [facility] Comment on above: Result Comment: Refe rence range defined for non-centrifuged specimen. Performed By: #### U HCG, UAMIC #### [address] [address] Stamp Analyst: Campos Avilez MD Specific gravity (U) [Rel density] 1.021 Normal 1.005-1.030 [facility] Comment on above: Performed By: #### U HCG, UAMIC #### [address] [address] Stamp Analyst: Campos Avilez MD Turbidity TURBID Abnormal CLEAR [facility] Comment on above: Performed By: #### U HCG, UAMIC #### [address] [address] Stamp Analyst: Campos Avilez MD Urobilinogen,Ur Normal Normal NORM [facility] Comment on above: Performed By: #### U HCG, UAMIC #### [address] [address] Stamp Analyst: Campos Avilez MD WBC (U) [#/Vol] TOO NUMEROUS TO COUNT Normal 0-5 [facility] Comment on above: Performed By: #### U HCG, UAMIC #### [address] [address] Stamp Analyst: Campos Avilez MD Amorphous sediment LM Ql (Urine sed) NOT REPORTED Normal NONE [facility] Comment on above: Performed By: #### U HCG, UAMIC #### [address] [address] Stamp Analyst: Campos Avilez MD Casts LM.LPF (Urine sed) [#/Area] NOT REPORTED Normal 0-8 [facility] Comment on above: Performed By: #### U HCG, UAMIC #### [address] [address] Stamp Analyst: Campos Avilez MD Crystals LM Nom (Urine sed) NOT REPORTED Normal NONE [facility] Comment on above: Performed By: #### U HCG, UAMIC #### [address] [address] Stamp Analyst: Campos Avilez MD Epithelial, Renal NOT REPORTED Normal 0 [facility] Comment on above: Performed By: #### U HCG, UAMIC #### [address] [address] Stamp Analyst: Campos Avilez MD Mucus Strands NOT REPORTED Normal NONE [facility] Comment on above: Performed By: #### U HCG, UAMIC #### [address] [address] Stamp Analyst: Campos Avilez MD Other Observations NOT REPORTED Normal NREQ [facility] Comment on above: Performed By: #### U HCG, UAMIC #### [address] [address] Stamp Analyst: Campos Avilez MD Trichomonas NOT REPORTED Normal NONE [facility] Comment on above: Performed By: #### U HCG, UAMIC #### [address] [address] Stamp Analyst: Campos Avilez MD Yeast LM Ql (Urine sed) NOT REPORTED Normal [facility] Comment on above: Performed By: #### U HCG, UAMIC #### [facility] [address] [place] [address] Stamp Analyst: Campos Avilez MD Urinalysis with microscopico n 07-08-2020 Amorphous, UA NOT REPORTED None [facility] [place] [place] Bacteria, UA MANY Abnormal None [facility] [place] Bilirubin Urine Negative NEGATIVE [facility] [place] Casts UA NOT REPORTED [facility] [place], [place] Color, UA ORANGE Abnormal YELLOW [facility], [place] Comment on above: INTERPRET WITH CAUTI ON DUE TO INTENSE COLOR OF URINE. Crystals, UA NOT REPORTED None /HPF [place] Epithelial Cells UA 0 TO 2 [place] Glucose, Ur Negative NEGATIVE [place] Interpretation and review of laboratory results Abnormal [place] Ketones Ql (U) Negative NEGATIVE [place] Leukocyte esterase Test strip Ql (U) MODERATE Abnormal NEGATIVE [place] Mucus, UA NOT REPORTED None [place] Nitrite, Urine Positive Abnormal NEGATIVE [place] Other Observations UA NOT REPORTED NOT REQ. M [place], [place] pH, UA 5.5 [place] Protein (U) [Mass/Vol] 2+ Abnormal NEGATIVE [place] RBC (U) [#/Vol] 50 TO 100 [place], [place] Comment on above: Reference range defi sonia for non-centrifuged specimen. Renal Epithelial, UA NOT REPORTED 0 /HPF [place] Specific [place], UA 1.021 [place], [place] Trichomonas, UA NOT REPORTED None [place], [place] Turbidity UA TURBID Abnormal CLEAR [place] Urine Hgb LARGE Abnormal NEGATIVE [place] Urobilinogen, Urine Normal Normal [place] WBC, UA TOO NUMEROUS TO COUNT [place] Yeast, UA NOT REPORTED None [place] VAGINITIS DNA PROBEon 2020 Direct Exam Positive Abnormal [place] Direct Exam Method of testing is a DNA probe intended for detection and identification of Samantha species, Gardnerella vaginalis, and Trichomonas vaginalis nucleic acid in vaginal fluid specimens from patients with symptoms of vaginitis/vaginosis. [place] Interpretation and review of laboratory results Abnormal [place] Special Requests NOT REPORTED [place] Specimen Description .VAGINA [place] Vaginitis DNA Probeon 2020 Vaginitis DNA [...] of vaginitis/vaginosis. Report Status FINAL 07/08/2020 Normal [facility] Comment on above: Performed By: #### U HCG, UAMIC #### [facility] [address] [place] [id number] Stamp Analyst: Campos Avilez MD Vitamin D 25 Hydroxyon 07-08 Interpretation and review of laboratory results Abnormal [place], [place] Vit D, 25-Hydroxy 12.1 ng/mL Low 30 - 100 ng/mL [place] Comment on above: Reference Range: Vitamin D status Range Deficiency <20 ng/mL Mild Deficiency 20-30 ng/mL Sufficiency 30-100 ng/mL Toxicity >100 ng/mL Vitamin D 25 OHon 07-08-2020 Vitamin D 25 [place] 12.1 ng/mL Low 30.0-100.0 [facility] Comment on above: Result Comment: Reference Range: Vitamin D status Range Deficiency <20 ng/mL Mild Deficiency 20-30 ng/mL Sufficiency 30-100 ng/mL Toxicity >100 ng/mL Performed By: #### U HCG, UAMIC #### [facility] [address] [place] [id number] Stamp Analyst: Campos Avilez MD ABO/RHon 07-07-2020 ABO/Rh Positive [place] CBC WITH AUTO DIFFERENTIALon 07-07-2020 Basophils (Bld) [#/Vol] 0.04 10*3/uL [place] Basophils/100 WBC (Bld) 0 % 0 - 2 % [place] Differential Type NOT REPORTED [place] Eosinophils (Bld) [#/Vol] 0.10 10*3/uL [place] Eosinophils/100 WBC (Bld) 1 % 1 - 4 % [place] Erythrocyte distribution width (RBC) [Ratio] 14.0 % 11.8 - 14.4 % [place] Hematocrit (Bld) [Volume fraction] 34.3 % Low 36.3 - 47.1 % [place] Hemoglobin (Bld) [Mass/Vol] 11.1 g/dL Low 11.9 - 15.1 g/dL [place] Immature granulocytes (Bld) [#/Vol] 0 % 0 [place] Immature granulocytes (Bld) [#/Vol] 0.04 10*3/uL [place] Interpretation and review of laboratory results Abnormal [place] Lymphocytes (Bld) [#/Vol] 1.77 10*3/uL [place] Lymphocytes/100 WBC (Bld) 16 % Low 25 - 45 % [place] MCH (RBC) [Entitic mass] 26.6 pg 25 - 35 pg [place] MCHC (RBC) [Mass/Vol] 32.4 g/dL 28.4 - 34.8 g/dL [place] MCV (RBC) [Entitic vol] 82.3 fL 78 - 102 fL [place] Monocytes (Bld) [#/Vol] 0.73 10*3/uL [place] Monocytes/100 WBC (Bld) 7 % 2 - 8 % [place] Platelet mean volume (Bld) [Entitic vol] 11.8 fL 8.1 - 13.5 fL [place] Platelets (Bld) [#/Vol] NOT REPORTED [place] Platelets (Bld) [#/Vol] 288 10*3/uL [place] RBC (Bld) [#/Vol] 4.17 10*6/uL 3.95 - 5.1 1 m/uL [place] RBC morphology finding Nom (Bld) NOT REPORTED [place] Segmented neutrophils/100 WBC (Bld) 75 % High 34 - 64 % [place] Segs Absolute 8.16 [place] WBC (Bld) [#/Vol] 0.0 10*3/uL 0.0 per 10 0 WBC [place] WBC (Bld) [#/Vol] 10.8 10*3/uL [place] WBC Morphology NOT REPORTED [place] COMPREHENSIVE METABOLIC PANE Mikie 07-07-2020 Albumin [Mass/Vol] 2.3 g/dL Low 3.5 - 5.2 g/dL [place] Albumin/Globulin [Mass ratio] 0.9 {ratio} Low [place] ALP [Catalytic activity/Vol] 41 U/L 35 - 104 U/L [place] Comment on above: SPECIMEN MODERATELY HEMOLYZED, RESULTS MAY BE ADVERSELY AFFECTED ALT [Catalytic activity/Vol] 11 U/L 5 - 33 U/L [place] Comment on above: SPECIMEN MODERATELY HEMOLYZED, RESULTS MAY BE ADVERSELY AFFECTED Anion gap [Moles/Vol] 9 mmol/L 9 - 17 mmol/L [place] AST [Catalytic activity/Vol] 28 U/L <32 [place] Comment on above: SPECIMEN MODERATELY HEMOLYZED, RESULTS MAY BE ADVERSELY AFFECTED Bilirubin Ql (U) <0.10 Low 0.3 - 1.2 mg/dL [place] Bun/Cre Ratio NOT REPORTED [place] Calcium [Mass/Vol] 5.5 mg/dL Critically low 8.6 - 1 0.4 mg/dL [place] Chloride [Moles/Vol] 118 mmol/L High 98 - 10 7 mmol/L [place] CO2 [Moles/Vol] 14 mmol/L Low 20 - 31 mmol/L [place] Creatinine [Mass/Vol] 0.6 mg/dL 0.5 - 0.9 mg/dL [place] GFR NOT REPORTED >60 mL/min [place] GFR Non- Pediatric GFR requires additional information. Refer to NKDEP website for calculator. >60 mL/min [place] GFR/1.73 sq M predicted among non-blacks MDRD (S/P/Bld) [Vol rate/Area] NOT REPORTED [place] GFR/1.73 sq M predicted among non-blacks MDRD (S/P/Bld) [Vol rate/Area] [place] Comment on above: Average GFR for <20 years old not available. Chronic Kidney Disease: <60 mL/min/1.73sq m Kidney failure: <15 mL/min/1.73sq m eGFR calculated using average adult body mass. Additional eGFR calculator available at: http://www.[employer]/multiple_crcl_2012.htm Glucose [Mass/Vol] 84 mg/dL 70 - 99 mg/dL [place] Interpretation and review of laboratory results Abnormal [place] Potassium [Moles/Vol] 5.1 mmol/L 3.7 - 5.3 mmol/L [place] Comment on above: SPECIMEN MODERATELY HEMOLYZED, RESULTS MAY BE ADVERSELY AFFECTED Protein [Mass/Vol] 5.0 g/dL Low 6.4 - 8.3 g/dL [place] Sodium [Moles/Vol] 141 mmol/L 135 - 144 mmol/L [place] Urea nitrogen [Mass/Vol] 10 mg/dL 6 - 20 mg/dL [place] HCG, QUANTITATIVE, on 07-07-2020 hCG Quant <1 <5 IU/L [place] Comment on above: Non-preg premeno <=5 [...] activity/Vol] 15 U/L 13 - 60 U/L [place] Vital Signs Date Time Vital Sign Value Performing Clinician Facility 10-26-2023 03:30-0400 Hourly Rounding [facility] Comment on above: Result Comment: pt discharged off unit 10-26-2023 03:15-0400 Hourly Rounding [facility] Comment on above: Result Comment: went over discharge inst ructions. educated pt on importance of contacting primary provider with future concerns, pisking up antibiotic prescription tomorrow, and calling is symtpoms return or get worse. 10-26-2023 00:00-0400 Blood Pressure Location [facility] 10-26-2023 00:00-0400 Body temperature 98.6 [degF] [facility] 10-26-2023 00:00-0400 Diastolic blood pressure 68 mm[Hg] [facility] 10-26-2023 00:00-0400 Heart rate 101 /min [facility] 10-26-2023 00:00-0400 Hourly Rounding [facility] 10-26-2023 00:00-0400 Mean blood pressure 86 mm[Hg] [facility] 10-26-2023 00:00-0400 Respiratory rate 16 /min [facility] 10-26-2023 00:00-0400 Systolic blood pressure 122 mm[Hg] [facility] 07-17-2023 11:42-0500 Body weight 127.82 kg Chung Benja Where Work Phone: [facility] 07-17-2023 11:42-0500 Diastolic blood pressure 70 mm[Hg] Chung Benja DO Work Phone: [facility] 07-17-2023 11:42-0500 Systolic blood pressure 118 mm[Hg] Chung Benja DO Work Phone: [facility] 10-19-2021 01:12-0400 Diastolic blood pressure 62 mm[Hg] PHYSICIAN [facility] 10-19-2021 01:12-0400 Heart rate 89 /min PHYSICIAN [facility] 10-19-2021 01:12-0400 Respiratory rate 18 /min PHYSICIAN [facility] 10-19-2021 01:12-0400 SaO2% (BldA) [Mass fraction] 100 % PHYSICIAN [facility] 10-19-2021 01:12-0400 Systolic blood pressure 130 mm[Hg] PHYSICIAN [facility] 10-18-2021 23:10-0400 Body height 167.64 cm PHYSICIAN [facility] 10-18-2021 23:10-0400 Body mass index (BMI) [Percentile] Per age and sex 99.1 % PHYSICIAN [facility] 10-18-2021 23:10-0400 Body mass index (BMI) [Ratio] 48.2 kg/m2 PHYSICIAN [facility] 10-18-2021 23:10-0400 Body weight 135.5 kg PHYSICIAN [facility] 10-18-2021 23:08-0400 Body temperature 98.4 [degF] PHYSICIAN [facility] 07-07-2020 21:51-0500 BMI (Body Mass Index) 42.93 kg/m2 [facility], [place] 07-07-2020 21:51-0500 [facility] [place] 07-07-2020 21:51-0500 BP Diastolic 85 mm[Hg] [facility] [place] 07-07-2020 21:51-0500 BP Systolic 136 mm[Hg] [facility] , [place] 07-07-2020 21:51-0500 Height 167.6 cm [facility] [place] 07-07-2020 21:51-0500 Pulse (Heart Rate) 93 /min [facility] [place] 07-07-2020 21:51-0500 Pulse Oximetry 97 % [facility] , [place] 07-07-2020 21:51-0500 Respiratory Rate 18 /min [facility] [place], [place] 07-07-2020 21:48-0500 Body Temperature 97.11 [degF] [facility] [place] Encounters Encounter Date Encounter Type Care Provider Facility Start: 12-31-2023 End: 12-31-2023 ambulatory HALIMA SUBHASH Not Available Start: 12-17-2023 End: 12-17-2023 ambulatory HALIMA SUBHASH Not Available Start: 12-03-2023 End: 12-03-2023 ambulatory CHUNG BENJA Not Available Start: 11-19-2023 End: 11-19-2023 ambulatory CHUNG BENJA Not Available Start: 11-04-2023 End: 11-04-2023 ambulatory HALIMA SUBHASH Not Available Start: 10-26-2023 End: 10-26-2023 ambulatory Fuentes Florentino Facility:[facility] [facility] Start: 10-25-2023 End: 10-26-2023 OB Triage Fuentes Florentino [facility] Start: 10-07-2023 End: 10-07-2023 ambulatory CHUNG [...] Emergency department patient visit PHYSICIAN NO FAMILY Facility:[facility] Start: 10-18-2021 End: 10-19-2021 Emergency department patient visit PHYSICIAN NO FAMILY [facility] Start: 07-07-2020 End: 07-08-2020 Emergency department patient visit DAVID AQUINO [facility] Start: 07-07-2020 End: 07-08-2020 Emergency department patient visit Lisa Land Work Phone: [facility] ED Comment on above: BV (bacterial [...] AM EDT Routine [facility] [address] [place] [id number] Halima Cullen PA [address] [place], [place] [id number] [facility] Start: 07-17-2023 End: 07-17-2024 US for US OB VIABLILITY Imaging Routine with uncertain viability, single or unspecified fetus Expected: 07/17/2023 (Approximate), Expires: 07/17/2024 [facility] Work Phone: Comment on above: [...] 02-01-2020 Influenza vaccination Flu vaccine (# 1) [place], [place] Start: 2018 Meningococcal (ACWY) vaccine (1 - 2-dose series) Meningococcal (ACWY) vaccine (1 - 2-dose series) [place] Start: 2018 Screening for Chlamy nancy trachomatis Chlamydia screen [place] Start: 2017 HIV screening HIV screen [place], [place] Start: 2013 HPV vaccine (1 - 2-d ose series) HPV vaccine (1 - 2-dose series) [place] Start: 2009 DTaP/Tdap/Td vaccine (1 - Tdap) DTaP/Tdap/Td vaccine (1 - Tdap) [place] Start: 2003 Hepatitis A vaccine (1 of 2 - 2-dose series) Hepatitis A vaccine (1 of 2 - 2-dose series) [place] Start: 2003 Measles,Mumps,Rubell a (MMR) vaccine (1 of 2 - Standard series) Measles,Mumps,Rubella (MMR) vaccine (1 of 2 - Standard series) [place] Start: 2003 Varicella vaccine (1 of 2 - 2-dose childhood series) Varicella vaccine (1 of 2 - 2-dose childhood series) [place] Start: 2002 Hepatitis B vaccine (1 of 3 - 3-dose primary series) Hepatitis B vaccine (1 of 3 - 3-dose primary series) [place] Start: 2002 Hepatitis C screening [facility] [place] Bacteria identified in Urine by Culture Urine culture Microbiology Routine Missed menses Ordered: 07/03/2023 [facility] Comment on above: Ordered: 07/03/2023 End: 07-07-2020 C.trachomatis N.gonorrhoeae DNA C.trachomatis N.gonorrhoeae DNA Microbiology STAT One Time for 1 Occurrences starting 07/07/2020 until 07/07/2020 [place] Comment on above: One Time for 1 Occur rences starting 07/07/2020 until 07/07/2020 C.trachomatis N.gonorrhoeae DNA C.trachomatis N.gonorrhoeae DNA Microbiology Stat Sun[employer] Label print 07/07/2020 11:20 PM [place] End: 07-08-2020 Calcium, Ionized Calcium, Ionized Lab STAT One Time for 1 Occurrences starting 07/08/2020 until 07/08/2020 [place] Comment on above: One Time for 1 Occur rences starting 07/08/2020 until 07/08/2020 CBC W Auto Different ial panel - Blood CBC and differential Lab Routine Missed menses Ordered: 07/03/2023 [facility] Comment on above: Ordered: 07/03/2023 End: 07-07-2020 Culture, Urine Culture, Urine Microbiology STAT One Time for 1 Occurrences starting 07/07/2020 until 07/07/2020 [place] Comment on above: One Time for 1 Occur rences starting 07/07/2020 until 07/07/2020 Culture, Urine Culture, Urine Microbiology Stat Sun[employer] Label print 07/07/2020 10:56 PM [facility] [place] Hemoglobin A1c measurement Hemoglobin A1c Lab Routine Missed menses Ordered: 07/03/2023 [facility] Comment on above: Ordered: 07/03/2023 Hepatitis B virus surface Ag [Presence] in Serum or Plasma by Immunoassay Hepatitis B surface antigen Lab Routine Missed menses Ordered: 07/03/2023 [facility] Comment on above: Ordered: 07/03/2023 Hepatitis C virus Ab [Presence] in Serum or Plasma by Immunoassay Hepatitis C antibody Lab Routine Missed menses Ordered: 07/03/2023 [facility] Comment on above: Ordered: 07/03/2023 HIV-1/HIV-2 antigen/antibody combination immunoassay HIV-1 and HIV-2 antibodies Lab Routine Missed menses Ordered: 07/03/2023 [facility] Comment on above: Ordered: 07/03/2023 Patient Education Common Breast Problems Pelvic Pain ED [facility] Work Phone: Patient referral [facility] Work Phone: Reagin Ab [Presence] in Serum by RPR RPR Lab Routine Missed menses Ordered: 07/03/2023 [facility] Comment on above: Ordered: 07/03/2023 Rubella antibody, IgG Rubella an tibody, IgG Lab Routine Missed menses Ordered: 07/03/2023 [facility] Comment on above: Ordered: 07/03/2023 End: 07-07-2020 US DUP ABD PEL RETRO SCROT LIMITED US DUP ABD PEL RETRO SCROT LIMITED Imaging STAT Once for 1 Occurrences starting 07/07/2020 until 07[facility]07[facility] on above: Once for 1 Occurrenc es starting 07/07/2020 until 07/07/2020 US DUP ABD PEL RETRO SCROT LIMITED US DUP ABD PEL RETRO SCROT LIMITED Imaging STAT 07/08/2020 12:13 AM [facility] Payers Date Payer Category Payer Unknown BCBS BCBS xxxxxx [id number] 2023-Present [phone] [address] [place] [address] [id number] 2023 Unknown [id number] 2021 [facility] thumb region [id number] 2002 Unknown [id number] 2002 Unknown [id number] 2002 Unknown [id number] [id number] 2002 Unknown [id number] [id number] 2002 Unknown [id number] [id number] 2002 Unknown [id number] [id number] 2002 Unknown [id number] 2.16.840.1.208099.3.579.2.1259 2002 Unknown [id number] [id number] 2002 Unknown [id number] 2.16.840.1.953160.3.579.2.1259 2002 Unknown [id number] 2.16.840.1.192977.3.579.2.125 2002 Unknown [id number] 2.16.840.1.866598.3.579.2.125 2002 Unknown [id number] 2.16.840.1.797912.3.579.2.1258 2002 Unknown [id number] 2.16.840.1.389750.3.579.2.1258 2002 Unknown [id number] 2.16.840.1.718769.3.579.2.125 2002 Unknown [id number] [id number] 1959 Medicaid [id number] 1959 Unknown [id number] Unknown [id number] Social History Date Type Detail Facility Start: 07-07-2020 End: 07-16-2023 Tobacco smoking status VAIS Never smoker [facility] Start: 07-07-2020 Tobacco use and exposure [place] Start: 2002 Sex Assigned At Not on file [place] Exposure to SARS-CoV-2 (event) Not sure [place] Start: 10-19-2021 Tobacco smoking status VAIS Smoker (finding) [facility] Start: 2002 Sex Assigned At Female [facility] Tobacco smoking status [facility] Tobacco smoking consumption unknown [facility] Start: 05-22-2023 [facility] Start: 07-16-2023 Gender identity Not on file [facility] Start: 07-16-2023 End: 07-17-2023 Alcohol intake Lifetime non-drinker (finding) [facility] Start: 07-16-2023 History of Social function [facility] Tobacco smoking status No Smoking Status Entered [facility] Functional Status Date Assessment Result Facility 10-26-2023 Functional Status N/A [facility] Clinical Notes 07-03-2023 to 10-26-2023 Chung Yousif DO - 07/17/2023 11:10 AM Costa Kilgore LPN - 07/03/2023 1:00 PM EST Note Date & Type Note Facility 10-26-2023 Note The following Patien t Education Materials have been given to the patient: EducationMaterial [facility] 10-26-2023 Hospital Discharg e instructions Patient [...] provider. Document Revised: 01/02/2022 Document Reviewed: 01/02/2022 [employer] Patient Education 2022 [employer]. 10/26/2023 03:10:04 Vaginal Bleeding During , Second [...] help with your regular activities. Medicines Take uobo-yhh-cjdguxo and prescription medicines only as told by [...] provider. Document Revised: 02/08/2021 Document Reviewed: 02/08/2021 [employer] Patient Education 2022 [employer]. 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 General instructions Take mawm-sdm-nqgjuzv and prescription medicines only as told by [...] care provider for managing back pain. Take xszs-ijn-uifjkjz and prescription medicines only as told by [...] provider. Document Revised: 08/01/2021 Document Reviewed: 08/01/2021 [employer] Patient Education 2022 [employer]. Follow Up Care 10/25/2023 23:39:34 With:Chung YOUSIF Address: [address] , [place] [address] Business (1) When:11/04/2023 [facility] 10-25-2023 Evaluation + Plan note Diagnostic Tests PendingUrine Culture 10/25/23 [facility] 07-17-2023 History of Presen t illness Narrative Reason for Appointment: Patient ID: Teodoro Upton is a 23 y.o. female who presents for Routine Visit Patient presents today for Return OB appointment. Current Medications: has a current medication list which includes the following prescription(s): robfryfk-yaw-pk-fa and promethazine. Medical History: Active Ambulatory Problems Diagnosis Date Noted No Active Ambulatory Problems Resolved Ambulatory Problems Diagnosis Date Noted No Resolved Ambulatory Problems Past Medical History: Diagnosis Date ADD (attention deficit disorder) Asthma ([facility]) Family History Problem Relation Name Age of [...] Chung Yousif DO documented in this encounter [facility] 07-03-2023 History of Presen t illness Narrative Reason for Appointment: Patient ID: Teodoro Upton is a 23 y.o. female who presents for Amenorrhea Patient presents today for a Nurse OB Intake appointment. Patient is 8w0d with a Estimated Date of Delivery: 02/12/24 OB History Para Term AB Living 1 SAB IAB Ectopic Multiple Live Births # Outcome Date GA Lbr Tear/2nd Weight Sex Delivery Anes PTL Lv 1 Current Current Medications: currently has no medications in their medication list. Medical History: Active Ambulatory Problems Diagnosis Date Noted No Active Ambulatory Problems Resolved Ambulatory Problems Diagnosis Date Noted No Resolved Ambulatory Problems Past Medical History: Diagnosis Date Asthma ([facility]) No family history on file. Social History [...] raw or undercooked meat, stay away from [facility], do not change litter boxes, eat [...] Evaluation note No assessment inform ation available [facility] [employer] Work Phone: Evaluation note Diagnosis Missed menses Nausea and vomiting, unspecified vomiting type documented in this encounter [facility]* Diagnosis First trimester state, incidental Vaginal bleeding in Threatened miscarriage Threatened , unspecified as to episode of care with uncertain viability, single or unspecified fetus documented in this encounter [facility] Narrative No data available for this section [facility] Additional Instructions Please follow up as we discussed so you can have your concerns further evaluated.[facility] [employer] Work Phone: Progress note No data available for this section [facility] Discharge Instructions * Instructions* Brenda Stoner, - 07/08/2020 [facility] ED Clinic List Healthcare Providers Services Day of Week/ Hours [place] for [facility] Services [address] [facility] Pediatric Primary Care Adult Primary Care [employer]//Specialty Clinics Friday 8:00a 4:30p [address] Adult Medicine, Pediatrics, [employer] Friday 8:30a 4:30p [facility] Surgery [address] [facility] Friday 8:30a 11:00a [facility] [address] [facility] Adult Internal Medicine ([facility]) [employer] Clinic Pediatric Clinic Friday, Friday, , Friday 8:00a 4:30p Friday 1:00p 4:30p Friday, Friday, 8:00a 5:00p; Friday 8:00a 12:30p Friday 1p 4p Friday, Friday, , Friday 8:30a 4:15p Friday 12:30p 4:15p Health Department [address] Pediatric Primary Care Adult Primary Care OB/ Friday, Friday 8a 12p 8a 4:45p [facility] [address] [place] [address] [place] [address] # Pre & Post Adoption Counseling Support / nutrition Care Reward Incentive Program [place] Location Fri, , Fri, Fri 10:00a 4:30p Thur 10:00a 7:30p E [place] Location Friday - Friday 10a 4:30p [facility] [employer] [address] [facility] Adult Internal Medicine [address] [facility] Pediatrics [address] [facility] Neuro / Headache [address] [facility] Friday 8:30a 5p [facility] [address] [facility] Fri, , , Fri 9:00a 4:30p Wed 1:00p 4:30p [facility] [address] [facility] [address] [facility] Friday 8:30a 5:00p [facility] Specialty Clinics [address] [facility] [address] Burn/Plastic, ENT, GI, Orthopedics, Surgical / Trauma, Urology, Vascular Friday 8:00 4:30p Call for an appointment [facility] [address] [facility] Adult Medicine, Eye Clinic, Dental Patient must be certified homeless Under age 18 not accepted Friday 8:00 4:30p [facility] [address] [facility] OB Friday, Friday, Friday, Friday 9a 5p 9a 6p Friday (OB only) [facility] [address] [facility] OB/ Friday 11a 7p , Fri, 9a 5p Friday 8a 4p 1st Friday 9a 1p Podiatry Clinic [address] [facility] Building [address] Friday 8:00 4:30 p Center [facility] [address] Free nurse visits [place] programs Counseling Class Call or walk in [facility] [address] Various Clinics 8a 5:30p [facility] Family Medicine [facility] [address] [facility], [address] [facility] Friday 8a 4:30p [facility] [address] [place], [place] [id number] [address] [place] [address] Friday 8a 4:30p Friday 8a 4:30p 8a 8p Outpatient Clinics [facility] [address] [facility] Friday 9a 5p Diabetic Education Services Call for an appointment [facility] Heart Failure Clinic [address] [facility] Friday 8:30a 4p Dental Services [facility] [address] [facility] Must have source of income and must bring (2) recent check stubs to appointment By appointment only [facility] [address] Patient must be homeless, call for eligibility guidelines. Under age 18 NOT accepted Days and hours vary (Doors open at 8:30a day of week varies) Call for an appointment Miscellaneous Information [facility] Call for Help [phone] Call for an appointment H.E.L.P (Hospital Eligibility Link Program) toll free For financial assistance * Attachments The following attachments cannot be sent through Care Everywhere. * Bacterial Vaginosis (Ukrainian) * UTI (Urinary Tract Infection): Female (Ukrainian) * Vitamin D: General Info (Ukrainian) documented in this encounter Assessments Diagnosis BV [...] section and content) DATE CREATED AUTHOR 07/16/2020 [facility] DATE CREATED AUTHOR AUTHOR'S ORGANIZ ATION 09/07/2022 [facility] DATE CREATED AUTHOR AUTHOR'S ORGANIZ ATION 03/13/2023 [facility] DATE CREATED AUTHOR AUTHOR'S ORGANIZ ATION 10/27/2023 [facility] Bra[facility] DATE CREATED AUTHOR AUTHOR'S ORGANIZ ATION 10/31/2023 [place] [facility] DATE CREATED AUTHOR AUTHOR'S ORGANIZ ATION 01/03/2024 [facility] dical Specialists EPIC Care Teams (unrecognized [...] BE BASED ON THE PRIMARY CLINICAL RECORDS. [employer] provides no warranty or guarantee of the accuracy or completeness of information in this document.
== END 2024-01-14 20:21 | disposition home or self-care (01) ==
LOC: LAB 20:20
PROVIDERS: Visit Provider Obstetrics & Gynecology
DX: Z34.93 Encounter for supervision of normal pregnancy, unspecified, third trimester (principal)
CPT/HCPCS: 36415

== ENCOUNTER 2024-01-16 07:01 | Outpatient (OUT) | payer MEDICAID, SELFPAY ==
--- OUTSIDE RECORDS SUMMARY | 2024-01-16 07:03 | XMS_ITS | CCD ---
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 Role Phone Unavailable Primary Care Provider [...] Propensity to adverse reactions to drug 07-07-2020 [facility]- [place], [place] Medications Current Medications Medication Drug Class(es) [...] Refill(s) 0 Start Date: 10/26/23 Status: Ordered Ksjbcjwe-Ntx-Xr-FA ( 1 + IRON PO) (4 sources) Cqegjmsi-Yuv-Qx-FA ( 1 + IRON PO) Take by [...] Range Facility Nursing Assessmenton 024 Nursing Assessment [id number] 2#1.00TIFF Normal [facility] C Urineon 10-28-2023 Bacteria identified [...] Locations R1: This test was performed at: [facility], [address] [place] [address], [address] [place] [address], [facility] Comment on above: Performed By: #### 2 [id number] #### [facility] [address] [place] [address] Consent for Treatmenton 10-01 Consent for Treatment [id number] #1.00TIFF [facility] Discharge Instructionson Discharge Instructions [id number] 7#1.00TIFF [facility] Inpatient Clinical Summaryon 10-26-2023 Inpatient Clinical Summary [address] [address] Clinical Summary Person Information Name: [facility] Age[facility] 23 Years : 2000 Sex: Female PCP: NONE, XXXX Marital Status: Single Phone: [phone] Race: or Ethnicity: Non- or Language: Czech Visit Id: Visit Reason: 24 WEEKS BLEEDING Speciality: Acuity: Obs Enc Type: OB Triage Med Service: Obstetrics Arrival: 10/25/2023 23:36:04 Discharge: 10/26/2023 03:30:56 Dispo Type: Home (Routine DC) Address: [facility] [address] [facility] [id number] Provider Notes: Diagnosis: Problems Active (10/26/2023) Smoker [...] Follow up: With: Address: When: [facility], [address] [place] [address] , [place] [address] [facility] (1) In 9 days 11/04/2023 Patient Education Information: and Urinary Tract Infection; Vaginal Bleeding During , Second Trimester; Back Pain in Normal [facility] Inpatient Patient Summaryon 10-26-2023 Inpatient Patient Summary [address] [address] Patient Discharge Instructions PERSON INFORMATION [...] Follow up: With: Address: When: [facility], [address] [place] [address] , [place] [address] Business (1) In 9 days [...] Always wi (more content not included)... Normal [facility] Insurance Correspondenceon 0 10-26-2023 Insurance Correspondence [id number] 8#1.00TIFF Normal [facility] UA with Cult Rflxon 10-26-19 24 Bacteria Auto Ql (U) Trace Normal Trace Fish [facility] Comment on above: Performed By: #### 4 [id number] #### [facility] [address] [place] [address] Bilirubin Ql (U) Negative Normal Negative [facility] Comment on above: Performed By: #### 4 [id number] #### [facility] [address] [place] [address] Clarity (U) Turbid Abnormal Clear [facility] Comment on above: Performed By: #### 4 [id number] #### [facility] [address] [place] [address] Color (U) Yellow Normal Yellow [facility] Comment on above: Result Comment: Micr oscopic readings are only performed on those samples that meet specific criteria set forth by [facility]. Performed By: #### 4 [id number] #### [facility] [address] [place] [address] Epithelial cells.squamous Auto (Urine sed) [#/Area] 5-8 Abnormal 0-2 [facility] Comment on above: Performed By: #### 4 [id number] #### [facility] [address] [place] [address] Glucose Ql (U) Negative Normal Negative [facility] Comment on above: Performed By: #### 4 [id number] #### [facility] [address] [place] [address] Hemoglobin Auto test strip (U) [Mass/Vol] Negative Normal Negative [facility] Comment on above: Performed By: #### 4 [id number] #### [facility] [address] [place] [address] Hyaline casts LM Ql (Urine sed) 0-3 Normal 0-3 [facility] Comment on above: Performed By: #### 4 [id number] #### [facility] [address] [place] [address] Ketones Auto test strip Ql (U) Negative Normal Negative [facility] Comment on above: Performed By: #### 4 [id number] #### [facility] [address] [place] [address] Leukocyte esterase Auto test strip Ql (U) 500 Gerald/uL Abnormal Negative [facility] Comment on above: Performed By: #### 4 [id number] #### [facility] [address] [place] [address] Mucus Auto Ql (U) Trace Normal Negative [facility] Comment on above: Performed By: #### 4 [id number] #### [facility] [address] [place] [address] Nitrite Auto test strip Ql (U) Negative Normal Negative [facility] Comment on above: Performed By: #### 4 [id number] #### [facility] [address] [place] [address] pH (U) 6.0 [pH] Invalid Interpretation Code 5.0-9.0 [facility] Comment on above: Performed By: #### 4 [id number] #### [facility] [address] [place] [address] Protein Ql (U) Trace Abnormal Negative [facility] Comment on above: Performed By: #### 4 [id number] #### [facility] [address] [place] [address] RBC Ql (U) 4-20 Abnormal 0-3 [facility] Comment on above: Performed By: #### 4 [id number] #### [facility] [address] [place] [address] Specific gravity (U) [Rel density] 1.030 Invalid Interpretation Code 1.005-1.030 [facility] Comment on above: Performed By: #### 4 [id number] #### [facility] [address] [place] [address] Urobilinogen (U) [Mass/Vol] Negative Normal Negative [facility] Comment on above: Performed By: #### 4 [id number] #### [facility] [address] [place] [address] WBC Auto (Urine sed) [#/Area] 16-25 Abnormal 0-5 [facility] Comment on above: Performed By: #### 4 [id number] #### [facility] [address] [place] [address] Type of Urine collection method Clean Catch Normal [facility] Comment on above: Performed By: #### 4 [id number] #### [facility] [address] [place] [address] URINALYSISOrdered By: SYSTEM SYSTEM on 10-25-2023 Bacteria [...] that meet specific criteria set forth by [facility]. Epithelial cells.squamous Auto (Urine [...] graded/HPF Invalid Interpretation Code 0-5graded/HP F [facility] UA Auto SS URINALYSISOrdered By: Elijah Hernandez on 10-25-2023 UA Spec Desc Clean Catch (10/25/23 11:53 PM) Normal [facility] UA Auto SS Urinalysis macro (dipstick) panel (U)on 07-17-2023 Bilirubin, UA Negative Negative - 4(70) +++ mg/dL [facility] Blood, UA Negative Negative - 50 William/mcL [facility] Clarity, UA Clear [facility] Color, UA Yellow [facility] Glucose, UA [...] UA Negative Negative - 1999(20) ++++ mg/dL [facility] Spec Grav, UA 1.020 1 - 1.03 [facility] Urobilinogen, UA 0.2 0.2 - 12 mg/dL [facility] HCG ( test) Ql (U)o n 07-03-2023 Interpretation and review of laboratory results Abnormal [facility] Preg Test, Ur Negative [facility] Urinalysis macro (dipstick) panel (U)on 07-03-2023 Bilirubin, UA Negative Negative - 4(70) +++ mg/dL [facility] Blood, UA Negative Negative - 50 William/mcL [facility] Clarity, UA Clear [facility] Color, UA Yellow [facility] Glucose, UA Negative Negative - 1999(110) ++++ mg/dL [facility] Interpretation and review of laboratory results Normal [facility] Ketones, UA Negative Negative - 160(16) ++++ mg/dL [facility] Leukocytes, UA Negative Negative - 500+++ Gerald/mcL [facility] Nitrite, UA Negative Negative - Positive [facility] pH, UA 5.5 5 - 9 [facility] Protein, UA Negative Negative - 1999(20) ++++ mg/dL [facility] Spec Grav, UA 1.010 1 - 1.03 [facility] Urobilinogen, UA 1.0 0.2 - 12 mg/dL [facility] XR FOOT RT MIN 3 VIEWSon XR [...] PADDY SAPP Date: 2022-08-30 14:42 [address] [facility] CBC AUTO DIFFon 06-28-2022 BASO # 0.0 103/ul Normal 0.0-0.[address] [facility] Comment on above: Performed By: #### C BC #### [facility] [address] [place] [address] Dr. Jerald Poon Basophils/100 WBC (Bld) 0.3 % Normal 0.2-2.[address] [facility] Comment on above: Performed By: #### C BC #### [facility] [address] [address] [address] Jerald Poon EO # 0.1 103/ul Normal 0.0-0.[address] [facility] Comment on above: Performed By: #### C BC #### [facility] [address] [place] [address] Dr. Jerald Poon Eosinophils/100 WBC (Bld) 1.1 % Normal 0.9-7.[address] [facility] Comment on above: Performed By: #### C BC #### [facility] [address] [place] [address] Dr. Jerald Poon Erythrocyte distribution width (RBC) [Ratio] 14.5 % Normal 11.0-15.0 [facility] Comment on above: Performed By: #### C BC #### [facility] [address] [place] [address] Dr. Jerald Poon Hematocrit (Bld) [Volume fraction] 36.7 % Normal 36.0-48.0 [facility] Comment on above: Performed By: #### C BC #### [facility] [address] [place] [address] Dr. Jerald Poon Hemoglobin (Bld) [Mass/Vol] 13.0 g/dL Normal 12.0-16.0 [facility] Comment on above: Performed By: #### C BC #### [facility] [address] [place] [address] Dr. Jerald Poon IG # 0.04 10e3/ul Critically high 0.00-0.03 [facility] Comment on above: Performed By: #### C BC #### [facility] [address] [place] [address] Dr. Jerald Poon IG % 0.3 % Normal 0.0-0.5 [facility] Comment on above: Performed By: #### C BC #### [facility] [address] [place] [address] Dr. Jerald Poon LYMPH # 3.0 103/ul Normal 1.2-3.[address] [facility] Comment on above: Performed By: #### C BC #### [facility] [address] [place] [address] Dr. Jerald Poon Lymphocytes/100 WBC (Bld) 26.2 % Normal 20.5-60.0 [facility] Comment on above: Performed By: #### C BC #### [facility] [address] [place] [address] Dr. Jerald Poon MANUAL DIFF REQ NO Normal [facility] Comment on above: Performed By: #### C BC #### [facility] [address] [place] [address] Dr. Jerald Poon MCH (RBC) [Entitic mass] 27.1 pg Normal 26.7-34.[address] [facility] Comment on above: Performed By: #### C BC #### [facility] [address] [address] [address] Jerald Poon MCHC (RBC) [Mass/Vol] 35.4 g/dL Critically high 29.9-35.[address] [facility] Comment on above: Performed By: #### C BC #### [facility] [address] [address] [address] Jerald Poon MCV (RBC) [Entitic vol] 76.6 fL Critically low 81.0-99.[address] [facility] Comment on above: Performed By: #### C BC #### [facility] [address] [place] [address] Dr. Jerald Poon MONO # 0.8 103/ul Normal 0.3-0.8 [facility] Comment on above: Performed By: #### C BC #### [facility] [address] [place] [address] Dr. Jerald Poon Monocytes/100 WBC (Bld) 7.0 % Normal 1.7-12.[address] [facility] Comment on above: Performed By: #### C BC #### [facility] [address] [place] [address] Dr. Jerald Poon NEUT # 7.5 103/ul Critically high 1.4-6.[address] [facility] Comment on above: Performed By: #### C BC #### [facility] [address] [place] [address] Dr. Jerald Poon Neutrophils/100 WBC (Bld) 65.1 % Normal 43.0-75.[address] [facility] Comment on above: Performed By: #### C BC #### [facility] [address] [address] [address] Jerald Poon Platelet mean volume (Bld) [Entitic vol] 10.0 fL Normal 9.5-13.[address] [facility] Comment on above: Performed By: #### C BC #### [facility] [address] [place] [address] Dr. Jerald Poon PLT 387 103/ul Normal 150-450 [facility] Comment on above: Performed By: #### C BC #### [facility] [address] [place] [address] Dr. Jerald Poon RBC 4.79 106/ul Normal 4.20-5.40 [facility] Comment on above: Performed By: #### C BC #### [facility] [address] [place] [address] Dr. Jearld Poon WBC 11.6 103/ul Critically high 4.0-11.0 [facility] Comment on above: Performed By: #### C BC #### [facility] [address] [place] [address] Dr. Jerald Poon CULTURE URINEon 06-28-2022 CULTURE URINE Culture Observations: LIGHT GROWTH OF MIXED GENITAL ZACARIAS. NO POTENTIAL PATHOGENS SEEN. Normal [facility] Comment on above: Performed By: #### U RCX #### [facility] [address] [place] [address] Dr. Jerald Poon ER URINE PROFILEon 3 Bilirubin Ql (U) Negative Normal NEGATIVE [facility] Comment on above: Performed By: #### U MICRO, ERUR #### [facility] [address] [place] [address] Dr. Jerald Poon Clarity (U) CLEAR Normal CLEAR [facility] Comment on above: Performed By: #### U MICRO, ERUR #### [facility] [address] [place] [address] Dr. Jerald Poon Color (U) YELLOW Normal YELLOW [facility] Comment on above: Performed By: #### U MICRO, ERUR #### [facility] [address] [place] [address] Dr. Jerald CEBALLOS A micrscopic examination will be performed if indicated. Normal [facility] Comment on above: Performed By: #### U MICRO, ERUR #### [facility] [address] [place] [address] Dr. Jerald Poon Glucose Ql (U) Negative Normal NEGATIVE [facility] Comment on above: Performed By: #### U MICRO, ERUR #### [facility] [address] [address] [address] Jerald Poon Hemoglobin Ql (U) Negative Normal NEGATIVE [facility] Comment on above: Performed By: #### U MICRO, ERUR #### [facility] [address] [address] [address] Jerald Poon Ketones Ql (U) 40 mg/dl Abnormal NEGATIVE [facility] Comment on above: Performed By: #### U MICRO, ERUR #### [facility] [address] [address] [address] Jerald Poon LEUKOCYTES TRACE Abnormal NEGATIVE [facility] Comment on above: Performed By: #### U MICRO, ERUR #### [facility] [address] [place] [address] Dr. Jerald Poon Nitrite Ql (U) Negative Normal NEGATIVE [facility] Comment on above: Performed By: #### U MICRO, ERUR #### [facility] [address] [place] [address] Dr. Jerald Poon pH (U) 6.0 [pH] Normal 5-9 [facility] Comment on above: Performed By: #### U MICRO, ERUR #### [facility] [address] [place] [address] Dr. Jerald Poon SPEC GRAVITY >=1.030 Abnormal 1.005-<=1.02 5 [facility] Comment on above: Performed By: #### U MICRO, ERUR #### [facility] [address] [place] [address] Dr. Jerald Poon UA PROTEIN Negative Normal NEGATIVE/ TRACE [facility] Comment on above: Performed By: #### U MICRO, ERUR #### [facility] [address] [place] [address] Dr. Jerald Poon UR MICRO IND INDICATED Normal [facility] Comment on above: Performed By: #### U MICRO, ERUR #### [facility] [address] [place] [address] Dr. Jerald Poon Urobilinogen Qn (U) 0.2 {Lyly'U}/dL Normal 0.2 - 1. 0 [facility] Comment on above: Performed By: #### U MICRO, ERUR #### [facility] [address] [place] [address] Dr. Jerald Poon PREG QUANT HCGon 06-28-2022 HCG QUANT <1 Normal [facility] Comment on above: Performed By: #### P REGQNT #### [facility] [address] [place] [address] Dr. Jerald Poon HCG RANGE SEE BELOW Normal [facility] Comment on above: Result Comment: 5-50 0.2-1 WEEK 50-500 1-2 WEEKS 100-5,000 2-3 WEEKS 500-10,000 3-4 WEEKS 1,000-50,000 4-5 WEEKS 10,000-100,000 5-6 WEEKS 15,000-200,000 6-8 WEEKS 10,000-100,000 2-3 MONTHS Performed By: #### P REGQNT #### [facility] [address] [place] [address] Dr. Jerald Poon PROF CHEM 8 (BAS METB)on Anion gap [Moles/Vol] 14.0 mmol/L Normal [facility] Comment on above: Performed By: #### C BC #### [facility] [address] [place] [address] Dr. Jerald Poon Calcium [Mass/Vol] 9.6 mg/dL Normal 8.5-10.1 [facility] Comment on above: Performed By: #### C BC #### [facility] [address] [place] [address] Dr. Jerald Poon Chloride [Moles/Vol] 101 mmol/L Normal 98-107 [facility] Comment on above: Performed By: #### C BC #### [facility] [address] [place] [address] Dr. Jerald Poon CO2 [Moles/Vol] 25.4 mmol/L Normal 21.0-32.0 [facility] Comment on above: Performed By: #### C BC #### [facility] [address] [place] [address] Dr. Jerald Poon Creatinine [Mass/Vol] 0.92 mg/dL Normal 0.55-1.02 [facility] Comment on above: Performed By: #### C BC #### [facility] [address] [place] [address] Dr. Jerald Poon EGFR-AF PALESTINIAN >60 Normal >=60 [facility] Comment on above: Performed By: #### C BC #### [facility] [address] [address] [address] Jerald Poon EGFR-NON AF PALESTINIAN >60 Normal >=60 [facility] Comment on above: Performed By: #### C BC #### [facility] [address] [place] [address] Dr. Jerald Poon Glucose [Mass/Vol] 101 mg/dL Normal 74-106 [facility] Comment on above: Performed By: #### C BC #### [facility] [address] [place] [address] Dr. Jerald Poon Potassium [Moles/Vol] 3.4 mmol/L Critically low 3.5-5.1 [facility] Comment on above: Performed By: #### C BC #### [facility] [address] [place] [address] Dr. Jerald Poon Sodium [Moles/Vol] 137 mmol/L Normal 136-145 [facility] Comment on above: Performed By: #### C BC #### [facility] [address] [place] [address] Dr. Jerald Poon Urea nitrogen [Mass/Vol] 11.0 mg/dL Normal 7.0-18.[address] [facility] Comment on above: Performed By: #### C BC #### [facility] [address] [place] [address] Dr. Jerald Poon Urea nitrogen/Creatinine [Mass ratio] 12.0 mg/mg Normal [facility] Comment on above: Performed By: #### C BC #### [facility] [address] [place] [address] Dr. Jerald oPon TSHon 01-27-2023 TSH 1.319 uIU/mL Normal 0.358-3.740 The [facility] Comment on above: Performed By: #### C BC #### [facility] [address] [place] [address] Dr. Jerald Poon URINE MICROSCOPIC ONLYon BACTERIA SMALL Abnormal NONE SEEN [facility] Comment on above: Performed By: #### U MICRO, ERUR #### [facility] [address] [place] [address] Dr. Jerald Poon Bacteria identified Cx Nom (U) INDICATED Normal [facility] Comment on above: Performed By: #### U MICRO, ERUR #### [facility] [address] [place] [address] Dr. Jerald Poon CAST NONE SEEN Normal NONE SEEN [facility] Comment on above: Performed By: #### U MICRO, ERUR #### [facility] [address] [place] [address] Dr. Jerald Poon Crystals LM Nom (Urine sed) NONE SEEN Normal NONE SEEN [facility] Comment on above: Performed By: #### U MICRO, ERUR #### [facility] [address] [place] [address] Dr. Jerald Poon Epithelial cells LM Ql (Urine sed) FEW Abnormal NONE SEEN /RARE [facility] Comment on above: Performed By: #### U MICRO, ERUR #### [facility] [address] [place] [address] Dr. Jerald Poon MUCOUS NONE SEEN Normal NONE SEEN [facility] Comment on above: Performed By: #### U MICRO, ERUR #### [facility] [address] [place] [address] Dr. Jerald Poon RBC NONE SEEN Abnormal 0-[address] [facility] Comment on above: Performed By: #### U MICRO, ERUR #### [facility] [address] [place] [address] Dr. Jerald Poon WBC 2-5 Abnormal NONE SEEN [facility] Comment on above: Performed By: #### U MICRO, ERUR #### [facility] [address] [place] [address] Dr. Jerald Poon CBC AUTO DIFFon 04-01-2022 BASO # 0.0 103/ul Normal 0.0-0.1 [facility] Comment on above: Performed By: #### C BC #### [facility] [address] [place] [address] Dr. Jerald Poon Basophils/100 WBC (Bld) 0.5 % Normal 0.2-2.0 [facility] Comment on above: Performed By: #### C BC #### [facility] [address] [place] [address] Dr. Jerald Poon EO # 0.1 103/ul Normal 0.0-0.[address] [facility] Comment on above: Performed By: #### C BC #### [facility] [address] [place] [address] Dr. Jerald Poon Eosinophils/100 WBC (Bld) 1.7 % Normal 0.9-7.0 [facility] Comment on above: Performed By: #### C BC #### [facility] [address] [place] [address] Dr. Jerald Poon Erythrocyte distribution width (RBC) [Ratio] 14.2 % Normal 11.0-15.0 [facility] Comment on above: Performed By: #### C BC #### [facility] [address] [place] [address] Dr. Jerald Poon Hematocrit (Bld) [Volume fraction] 36.7 % Normal 36.0-48.0 [facility] Comment on above: Performed By: #### C BC #### [facility] [address] [place] [address] Dr. Jerald Poon Hemoglobin (Bld) [Mass/Vol] 12.1 g/dL Normal 12.0-16.[address] [facility] Comment on above: Performed By: #### C BC #### [facility] [address] [place] [address] Dr. Jerald Poon IG # 0.01 10e3/ul Normal 0.00-0.03 [facility] Comment on above: Performed By: #### C BC #### [facility] [address] [place] [address] Dr. Jerald Poon IG % 0.1 % Normal 0.0-0.5 [facility] Comment on above: Performed By: #### C BC #### [facility] [address] [place] [address] Dr. Jerald Poon LYMPH # 2.3 103/ul Normal 1.2-3.8 [facility] Comment on above: Performed By: #### C BC #### [facility] [address] [place] [address] Dr. Jerald Poon Lymphocytes/100 WBC (Bld) 30.8 % Normal 20.5-60.0 [facility] Comment on above: Performed By: #### C BC #### [facility] [address] [place] [address] Dr. Jerald Poon MANUAL DIFF REQ NO Normal [facility] Comment on above: Performed By: #### C BC #### [facility] [address] [place] [address] Dr. Jreald Poon MCH (RBC) [Entitic mass] 27.3 pg Normal 26.7-34.0 [facility] Comment on above: Performed By: #### C BC #### [facility] [address] [place] [address] Dr. Jeradl Poon MCHC (RBC) [Mass/Vol] 33.0 g/dL Normal 29.9-35.2 [facility] Comment on above: Performed By: #### C BC #### [facility] [address] [place] [address] Dr. Jerald Poon MCV (RBC) [Entitic vol] 82.7 fL Normal 81.0-99.0 [facility] Comment on above: Performed By: #### C BC #### [facility] [address] [place] [address] Dr. Jerald Poon MONO # 0.8 103/ul Normal 0.3-0.8 [facility] Comment on above: Performed By: #### C BC #### [facility] [address] [place] [address] Dr. Jerald Poon Monocytes/100 WBC (Bld) 10.6 % Normal 1.7-12.0 [facility] Comment on above: Performed By: #### C BC #### [facility] [address] [place] [address] Dr. Jerald Poon NEUT # 4.2 103/ul Normal 1.4-6.5 [facility] Comment on above: Performed By: #### C BC #### [facility] [address] [place] [address] Dr. Jerald Poon Neutrophils/100 WBC (Bld) 56.3 % Normal 43.0-75.0 [facility] Comment on above: Performed By: #### C BC #### [facility] [address] [place] [address] Dr. Jerald Poon Platelet mean volume (Bld) [Entitic vol] 10.2 fL Normal 9.5-13.5 [facility] Comment on above: Performed By: #### C BC #### [facility] [address] [place] [address] Dr. Jerald Poon PLT 375 103/ul Normal 150-[address] [facility] Comment on above: Performed By: #### C BC #### [facility] [address] [place] [address] Dr. Jerald Poon RBC 4.44 106/ul Normal 4.20-5.40 [facility] Comment on above: Performed By: #### C BC #### [facility] [address] [place] [address] Dr. Jerald Poon WBC 7.5 103/ul Normal 4.0-11.0 [facility] Comment on above: Performed By: #### C BC #### [facility] [address] [place] [address] Dr. Jerald Poon ER URINE PROFILEon 2 Bilirubin Ql (U) Negative Normal NEGATIVE [facility] Comment on above: Performed By: #### C BC #### [facility] [address] [place] [address] Dr. Jerald Poon Clarity (U) CLEAR Normal CLEAR [facility] Comment on above: Performed By: #### C BC #### [facility] [address] [place] [address] Dr. Jerald Poon Color (U) YELLOW Normal YELLOW [facility] Comment on above: Performed By: #### C BC #### [facility] [address] [place] [address] Dr. Jerald CEBALLOS A micrscopic examination will be performed if indicated. Normal [facility] Comment on above: Performed By: #### C BC #### [facility] [address] [place] [address] Dr. Jerald Poon Glucose Ql (U) Negative Normal NEGATIVE [facility] Comment on above: Performed By: #### C BC #### [facility] [address] [place] [address] Dr. Jerald Poon Hemoglobin Ql (U) Negative Normal NEGATIVE [facility] Comment on above: Performed By: #### C BC #### [facility] [address] [place] [address] Dr. Jerald Poon Ketones Ql (U) Negative Normal NEGATIVE [facility] Comment on above: Performed By: #### C BC #### [facility] [address] [place] [address] Dr. Jerald Poon LEUKOCYTES Negative Normal NEGATIVE [facility] Comment on above: Performed By: #### C BC #### [facility] [address] [place] [address] Dr. Jerald Poon Nitrite Ql (U) Negative Normal NEGATIVE [facility] Comment on above: Performed By: #### C BC #### [facility] [address] [place] [address] Dr. Jerald Poon pH (U) 7.0 [pH] Normal 5-9 [facility] Comment on above: Performed By: #### C BC #### [facility] [address] [place] [address] Dr. Jerald Poon SPEC GRAVITY 1.025 Normal 1.005-<=1.02 5 [facility] Comment on above: Performed By: #### C BC #### [facility] [address] [place] [address] Dr. Jerald Poon UA PROTEIN Negative Normal NEGATIVE/ TRACE [facility] Comment on above: Performed By: #### C BC #### [facility] [address] [place] [address] Dr. Jerald Poon UR MICRO IND NOT INDICATED Normal [facility] Comment on above: Performed By: #### C BC #### [facility] [address] [place] [address] Dr. Jerald Poon Urobilinogen Qn (U) 1.0 {Lyly'U}/dL Normal 0.2 - 1. 0 [facility] Comment on above: Performed By: #### C BC #### [facility] [address] [place] [address] Dr. Jerald Poon PREG QUANT HCGon 04-01-2022 HCG QUANT 1 mIU/mL Normal [facility] Comment on above: Performed By: #### P REGQNT #### [facility] [address] [place] [address] Dr. Jerald Poon HCG RANGE SEE BELOW Normal [facility] Comment on above: Result Comment: 5-50 0.2-1 WEEK 50-500 1-2 WEEKS 100-5,000 2-3 WEEKS 500-10,000 3-4 WEEKS 1,000-50,000 4-5 WEEKS 10,000-100,000 5-6 WEEKS 15,000-200,000 6-8 WEEKS 10,000-100,000 2-3 MONTHS Performed By: #### P REGQNT #### [facility] [address] [place] [address] Dr. Jerald Poon PROF 14(COMP METB)on 022 Albumin [Mass/Vol] 3.6 g/dL Normal 3.4-5.0 [facility] Comment on above: Performed By: #### C MP #### [facility] [address] [place] [address] Dr. Jerald Pono Albumin/Globulin [Mass ratio] 0.8 {ratio} Normal [facility] Comment on above: Performed By: #### C MP #### [facility] [address] [place] [address] Dr. Jerald Poon ALP [Catalytic activity/Vol] 65 U/L Normal 46-116 [facility] Comment on above: Performed By: #### C MP #### [facility] [address] [place] [address] Dr. Jerald Poon ALT [Catalytic activity/Vol] 22 U/L Normal 14-59 [facility] Comment on above: Performed By: #### C MP #### [facility] [address] [address] [address] Jerald Poon Anion gap [Moles/Vol] 10.3 mmol/L Normal Th e [facility] Comment on above: Performed By: #### C MP #### [facility] [address] [place] [address] Dr. Jerald Poon AST [Catalytic activity/Vol] 14 U/L Critically low 15-37 [facility] Comment on above: Performed By: #### C MP #### [facility] [address] [place] [address] Dr. Jerald Poon Bilirubin [Mass/Vol] 0.1 mg/dL Critically low 0.2-1.0 [facility] Comment on above: Performed By: #### C MP #### [facility] [address] [place] [address] Dr. Jerald Poon Calcium [Mass/Vol] 8.6 mg/dL Normal 8.5-10.1 [facility] Comment on above: Performed By: #### C MP #### [facility] [address] [place] [address] Dr. Jerald Poon Chloride [Moles/Vol] 104 mmol/L Normal 98-107 [facility] Comment on above: Performed By: #### C MP #### [facility] [address] [address] [address] Jerald Poon CO2 [Moles/Vol] 28.1 mmol/L Normal 21.0-32.0 [facility] Comment on above: Performed By: #### C MP #### [facility] [address] [address] [address] Jerald Poon Creatinine [Mass/Vol] 0.99 mg/dL Normal 0.55-1.02 [facility] Comment on above: Performed By: #### C MP #### [facility] [address] [address] [address] Jerald Poon EGFR-AF PALESTINIAN >60 Normal >=60 [facility] Comment on above: Performed By: #### C MP #### [facility] [address] [address] [address] Jerald Poon EGFR-NON AF PALESTINIAN >60 Normal >=[address] [facility] Comment on above: Performed By: #### C MP #### [facility] [address] [address] [address] Jerald Poon Globulin (S) [Mass/Vol] 4.5 g/dL Normal [facility] Comment on above: Performed By: #### C MP #### [facility] [address] [place] [address] Dr. Jerald Poon Glucose [Mass/Vol] 94 mg/dL Normal 74-106 [facility] Comment on above: Performed By: #### C MP #### [facility] [address] [address] [address] Jerald Poon Potassium [Moles/Vol] 3.4 mmol/L Critically low 3.5-5.1 [facility] Comment on above: Performed By: #### C MP #### [facility] [address] [place] [address] Dr. Jerald Poon Protein [Mass/Vol] 8.1 g/dL Normal 6.4-8.2 [facility] Comment on above: Performed By: #### C MP #### [facility] [address] [address] [address] Jerald Poon Sodium [Moles/Vol] 139 mmol/L Normal 136-145 [facility] Comment on above: Performed By: #### C MP #### [facility] [address] [address] [address] Jerald Poon Urea nitrogen [Mass/Vol] 8.0 mg/dL Normal 7.0-18.0 [facility] Comment on above: Performed By: #### C MP #### [facility] [address] [place], [place] [address] Dr. Jerald Poon Urea nitrogen/Creatinine [Mass ratio] 8.1 mg/mg Normal [facility] Comment on above: Performed By: #### C MP #### [facility] [address] [place], [place] [address] Dr. Jerald Poon US PELVIS TRANSVAGon 022 [...] LUH MANRIQUE Date: 2022-04-01 21:55 Normal [facility] Automated erythrocytes count in urine sediment (number/area)Ordered By: Anders Sesay on 10-19-2021 RBC Auto (Urine sed) [#/Area] 1-2 [HPF] [facility] Automated leukocytes count i n urine sediment (number/area)Ordered By: Anders Sesay on 10-19-2021 WBC Auto (Urine sed) [#/Area] 3-4 [HPF] [facility] Basophils Auto (Bld) [#/Vol] Ordered By: Anders Sesay on 10-19-2021 Basophils (Bld) [#/Vol] 0.1 10*3/uL 0.0-0.2 [facility] Basophils/100 WBC Auto (Bld) Ordered By: Anders Sesay on 10-19-2021 Basophils/100 WBC (Bld) 0.6 % [facility] Bilirubin Test strip Ql (U)O rdered By: Anders Sesay on 10-19-2021 Bilirubin Ql (U) Negative Negative [facility] Blood hemoglobin measurement (mass/volume)Ordered By: Anders Sesay on 10-19-2021 Hemoglobin (Bld) [Mass/Vol] 13.2 g/dL 11.8-15.4 [facility] Blood leukocytes automated c ount (number/volume)Ordered By: Anders Sesay on 10-19-2021 WBC (Bld) [#/Vol] 9.1 10*3/uL 4.5-11.0 [facility] Body fluid albumin measureme nt (mass/volume)Ordered By: Anders Sesay on 10-19-2021 Albumin (Body fld) [Mass/Vol] 3.8 g/dL 3.2-5.5 [facility] Color Auto (U)Ordered By: Jason Sesay on 10-19-2021 Color (U) Yellow Yellow [facility] Creatinine and Glomerular fi ltration rate.predicted panel (S/P/Bld)Ordered By: Anders Sesay on 10-19-2021 Creatinine [Mass/Vol] 0.87 mg/dL 0.44-1.03 [facility] Eosinophils Auto (Bld) [#/Vo l]Ordered By: Anders Sesay on 10-19-2021 Eosinophils (Bld) [#/Vol] 0.1 10*3/uL 0.0-0.45 [facility] Eosinophils/100 WBC Auto (Bl d)Ordered By: Anders Sesay on 10-19-2021 Eosinophils/100 WBC (Bld) 0.9 % [facility] Erythrocyte distribution wid th Auto (RBC) [Ratio]Ordered By: Anders Sesay on 10-19-2021 Erythrocyte distribution width (RBC) [Ratio] 16.4 % 11.9-15.3 [facility] Estimated glomerular filtrat ion rate (GFR) non- AmericanOrdered By: Anders Sesay on 10-19-2021 GFR/1.73 sq M.predicted among non-blacks MDRD (S/P/Bld) [Vol rate/Area] > 60 mL/Min [facility] Globulin Calc (S) [Mass/Vol] Ordered By: Anders Sesay on 10-19-2021 Globulin (S) [Mass/Vol] 4.3 g/dL [facility] HCG ( test) IA.rapi d Ql (U)Ordered By: Anders Sesay on 10-19-2021 HCG ( test) Ql (U) Negative [facility] Hematocrit Auto (Bld) [Volum e fraction]Ordered By: Anders Sesay on 10-19-2021 Hematocrit (Bld) [Volume fraction] 40.2 % 34.0-46.4 [facility] Ketones Auto test strip (U) [Mass/Vol]Ordered By: Anders Sesay on 10-19-2021 Ketones (U) [Mass/Vol] Negative Negative [facility] - Hematology and Cell countsOrdered By: Anders Sesay on 10-19-2021 Nucleated RBC/100 WBC (Bld) [Ratio] 0.2 % 0-0.5 [facility] - UrinalysisOrder ed By: Anders Sesay on 10-19-2021 Hyaline casts LM Ql (Urine sed) 0-8 [LPF] [facility] Lymphocytes Auto (Bld) [#/Vo l]Ordered By: Anders Sesay on 10-19-2021 Lymphocytes (Bld) [#/Vol] 2.4 10*3/uL 1.00-4.8 [facility] Lymphocytes/100 WBC Auto (Bl d)Ordered By: Anders Sesay on 10-19-2021 Lymphocytes/100 WBC (Bld) 26.7 % [facility] MCH Auto (RBC) [Entitic mass ]Ordered By: Anders Sesay on 10-19-2021 MCH (RBC) [Entitic mass] 26.3 pg 24.7-34.3 [facility] MCHC Auto (RBC) [Mass/Vol]Or dered By: Anders Sesay on 10-19-2021 MCHC (RBC) [Mass/Vol] 32.9 g/dL 32.0-35.0 [facility] MCV Auto (RBC) [Entitic vol] Ordered By: Anders Sesay on 10-19-2021 MCV (RBC) [Entitic vol] 80.1 fL 80-100 [facility] Monocytes Auto (Bld) [#/Vol] Ordered By: Anders Sesay on 10-19-2021 Monocytes (Bld) [#/Vol] 0.7 10*3/uL 0.0-0.8 [facility] Monocytes/100 WBC Auto (Bld) Ordered By: Anders Sesay on 10-19-2021 Monocytes/100 WBC (Bld) 7.6 % [facility] Neutrophils Auto (Bld) [#/Vo l]Ordered By: Anders Sesay on 10-19-2021 Neutrophils (Bld) [#/Vol] 5.8 10*3/uL 1.8-7.7 [facility] Neutrophils/100 WBC Auto (Bl d)Ordered By: Anders Sesay on 10-19-2021 Neutrophils/100 WBC (Bld) 64.2 % [facility] Nitrite Test strip Ql (U)Ord ered By: Anders Sesay on 10-19-2021 Nitrite Ql (U) Negative Negative [facility] No Panel InformationOrdered By: Anders Sesay on 10-19-2021 Estimated GFR () > 60 mL/Min [facility] Comment on above: GFR estimated refere nce range: According to KDOQI guidelines, <60 ml/min/1.73m2 is sufficient to diagnose a patient with chronic kidney disease. Pharmacy Creatinine Clearance (Chem 147.41 [facility] Platelet mean volume Auto (B ld) [Entitic vol]Ordered By: Anders Sesay on 10-19-2021 Platelet mean volume (Bld) [Entitic vol] 8.6 fL 6.3-10.7 [facility] Platelets Auto (Bld) [#/Vol] Ordered By: Anders Sesay on 10-19-2021 Platelets (Bld) [#/Vol] 395 10*3/uL 150-450 [facility] Protein Auto test strip (U) [Mass/Vol]Ordered By: Anders Sesay on 10-19-2021 Protein (U) [Mass/Vol] Negative Negative [facility] Protein [Mass/volume] in Ser um or PlasmaOrdered By: Anders Sesay on 10-19-2021 Protein [Mass/Vol] 8.1 g/dL 6.1-7.9 [facility] RBC Auto (Bld) [#/Vol]Ordere d By: Anders Sesay on 10-19-2021 RBC (Bld) [#/Vol] 5.02 10*6/uL 3.60-5.00 [facility] Serum or plasma alanine ayoub otransferase measurement without P-5'-P (enzymatic activiOrdered By: Anders Sesay on 10-19-2021 ALT No additional P-5'-P [Catalytic activity/Vol] 20 U/L 10-60 [facility] Serum or plasma albumin/glob ulin mass ratioOrdered By: Anders Sesay on 10-19-2021 Albumin/Globulin [Mass ratio] 0.9 {ratio} [facility] Serum or plasma alkaline cosmo sphatase measurement (enzymatic activity/volume)Ordered By: Anders Sesay on 10-19-2021 ALP [Catalytic activity/Vol] 55 U/L 32-92 [facility] Serum or plasma aspartate am inotransferase measurement (enzymatic activity/volume)Ordered By: Anders Sesay on 10-19-2021 AST [Catalytic activity/Vol] 17 U/L 10-42 [facility] Serum or plasma calcium joann urement (mass/volume)Ordered By: Anders Sesay on 10-19-2021 Calcium [Mass/Vol] 9.1 mg/dL 8.2-10.2 [facility] Serum or plasma chloride adan surement (moles/volume)Ordered By: Anders Sesay on 10-19-2021 Chloride [Moles/Vol] 103 mmol/L 95-114 [facility] Serum or plasma glucose joann urement (mass/volume)Ordered By: Anders Sesay on 10-19-2021 Glucose [Mass/Vol] 105 mg/dL 70-100 [facility] Comment on above: ADA recommended refe rence range Random Glucose Reference Range is dependent on time and content of last meal. Glucose of more than 200 mg/dL in a nonstressed, ambulatory subject supports the diagnosis of Diabetes Mellitus. Serum or plasma potassium me asurement (moles/volume)Ordered By: Anders Sesay on 10-19-2021 Potassium [Moles/Vol] 3.7 mmol/L 3.5-5.1 [facility] Serum or plasma sodium measu rement (moles/volume)Ordered By: Anders Sesay on 10-19-2021 Sodium [Moles/Vol] 137 mmol/L 136-146 [facility] Serum or plasma total biliru bin measurement (mass/volume)Ordered By: Anders Sesay on 10-19-2021 Bilirubin [Mass/Vol] 0.3 mg/dL 0.3-1.2 [facility] Serum or plasma total carbon dioxide measurement (moles/volume)Ordered By: Anders Sesay on 10-19-2021 CO2 [Moles/Vol] 24.2 mmol/L 22.0-30.0 [facility] Serum or plasma urea nitroge n measurement (mass/volume)Ordered By: Anders Sesay on 10-19-2021 Urea nitrogen [Mass/Vol] 7 mg/dL 9-23 [facility] Specific gravity Auto test s trip (U) [Rel density]Ordered By: Anders Sesay on 10-19-2021 Specific gravity (U) [Rel density] 1.014 1.001-1.030 [facility] Squamous epithelial cells de tection in urine sediment by light microscopyOrdered By: Anders Sesay on 10-19-2021 Epithelial cells.squamous LM Ql (Urine sed) 3-4 [HPF] [facility] Urine bacteria detection by automated methodOrdered By: Anders Sesay on 10-19-2021 Bacteria Auto Ql (U) 1+ None Seen [facility] Urine clarity by refractomet ry automatedOrdered By: Anders Sesay on 10-19-2021 Clarity Refractometry automated (U) Clear Clear [facility] Urine glucose measurement by automated test strip (mass/volume)Ordered By: Anders Sesay on 10-19-2021 Glucose Auto test strip (U) [Mass/Vol] Normal mg/dL Normal [facility] Urine hemoglobin detection b y automated test stripOrdered By: Anders Sesay on 10-19-2021 Hemoglobin Auto test strip Ql (U) Negative Negative [facility] Urine leukocyte esterase det ection by automated test stripOrdered By: Anders Sesay on 10-19-2021 Leukocyte esterase Auto test strip Ql (U) 1+ Negative [facility] Urobilinogen Auto test strip (U) [Mass/Vol]Ordered By: Anders Sesay on 10-19-2021 Urobilinogen (U) [Mass/Vol] Normal mg/dL Normal [facility] pH Auto test strip (U)Ordere d By: Anders Sesay on 10-19-2021 pH (U) 5.5 [pH] 5.0-9.0 [facility] US DUP ABD PEL RETRO SCROT [...] MD 07/14/20 Edited Result - FINAL Normal [facility] US NON OB TRANSVAGINALon US [...] MD 07/14/20 Edited Result - FINAL Normal [facility] Chlamydia/GC,DNA Ampon 07-10 Chlamydia Probe Negative Normal NEG [facility] Comment on above: Result Comment: [...] Performed By: #### U HCG, UAMIC #### [facility] [address] [place], [place] [id number] [employer] Helper: Campos Avilez MD Gonorrhea Probe Negative Normal NEG [facility] Comment on above: Result Comment: [...] Performed By: #### U HCG, UAMIC #### [facility] [address] [place], [place] [id number] [employer] Helper: Campos Avilez MD Cult,Urineon 07-09-2020 Cult,Urine Specimen Description .CLEAN CATCH URINE Special Requests NOT REPORTED Culture ESCHERICHIA COLI >[id number] CFU/ML Report Status FINAL 07/09/2020 SUSCEPTIBILITY Organism [...] <=20 SUSCEPTIBLE Piperacillin/Tazobac her <=4 SUSCEPTIBLE Normal [facility] Comment on above: Performed By: #### U HCG, UAMIC #### [place] [address] [employer] Helper: Campos Avilez MD ABO/Rh(D)on 07-08-2020 ABO/Rh(D) Positive Normal [facility] Comment on above: Performed By: #### [facility] #### [place], [place] [id number] [employer] Helper: Campos Avilez MD CBC with Diffon 07-08-2020 Abs. Basophil 0.04 k/uL Normal 0.00-0.20 [facility] Comment on above: Performed By: #### C P, CDP, COSMO, BHCG, MG, VD25, LIP #### [place] [address] [employer]: Campos Avilez MD Abs.Imm.Granulocyte 0.04 k/uL Normal 0.00-0.30 [facility] Comment on above: Performed By: #### C P, CDP, COSMO, BHCG, MG, VD25, LIP #### [facility] [address] [place] [address] [employer] Helper: Campos Avilez MD Abs.Neutrophil (Seg) 8.16 k/uL High 1.80-8.00 [facility] Comment on above: Performed By: #### C P, CDP, COSMO, BHCG, MG, VD25, LIP #### [address] [address] [employer]: Campos Avilez MD Basophils/100 WBC (Bld) 0 % Normal 0-2 [facility] Comment on above: Performed By: #### C P, CDP, COSMO, BHCG, MG, VD25, LIP #### [address] [address] [employer]: Campos Avilez MD Eosinophils (Bld) [#/Vol] 0.10 10*3/uL Normal 0.00-0.44 [facility] Comment on above: Performed By: #### C P, CDP, COSMO, BHCG, MG, VD25, LIP #### [address] [address] [employer]: Campos Avilez MD Eosinophils/100 WBC (Bld) 1 % Normal 1-4 [facility] Comment on above: Performed By: #### C P, CDP, COSMO, BHCG, MG, VD25, LIP #### [address] [address] [employer]: Campos Avilez MD Erythrocyte distribution width (RBC) [Ratio] 14.0 % Normal 11.8-14.4 [facility] Comment on above: Performed By: #### C P, CDP, COSMO, BHCG, MG, VD25, LIP #### [address] [address] [employer]: Campos Avilez MD Hematocrit (Bld) [Volume fraction] 34.3 % Low 36.3-47.1 [facility] Comment on above: Performed By: #### C P, CDP, COSMO, BHCG, MG, VD25, LIP #### [address] [address] [employer]: Campos Avilez MD Hemoglobin (Bld) [Mass/Vol] 11.1 g/dL Low 11.9-15.1 [facility] Comment on above: Performed By: #### C P, CDP, COSMO, BHCG, MG, VD25, LIP #### [address] [address] [employer] Hel[employer]: Campos Avilez MD Immature granulocytes (Bld) [#/Vol] 0 % Normal 0 [facility] Comment on above: Performed By: #### C P, CDP, COSMO, BHCG, MG, VD25, LIP #### [place] [address] [employer] Hel[employer]: Campos Avilez MD Lymphocytes (Bld) [#/Vol] 1.77 10*3/uL Normal 1.20-5.20 [facility] Comment on above: Performed By: #### C P, CDP, COSMO, BHCG, MG, VD25, LIP #### [place] [address] [employer] Helper: Campos Avilez MD Lymphocytes/100 WBC (Bld) 16 % Low 25-45 [facility] Comment on above: Performed By: #### C P, CDP, COSMO, BHCG, MG, VD25, LIP #### [place] [address] [employer] Hel[employer]: Campos Avilez MD MCH (RBC) [Entitic mass] 26.6 pg Normal 25.0-35.0 [facility] Comment on above: Performed By: #### C P, CDP, COSMO, BHCG, MG, VD25, LIP #### [address] [address] [employer]: Campos Avilez MD MCHC (RBC) [Mass/Vol] 32.4 g/dL Normal 28.4-34.8 [facility] Comment on above: Performed By: #### C P, CDP, COSMO, BHCG, MG, VD25, LIP #### [address] [address] [employer]: Campos Avilez MD MCV (RBC) [Entitic vol] 82.3 fL Normal 78.0-102.0 [facility] Comment on above: Performed By: #### C P, CDP, COSMO, BHCG, MG, VD25, LIP #### [address] [address] [employer]: Campos Avilez MD Monocytes (Bld) [#/Vol] 0.73 10*3/uL Normal 0.10-1.40 [facility] Comment on above: Performed By: #### C P, CDP, COSMO, BHCG, MG, VD25, LIP #### [address] [address] [employer]: Campos Avilez MD Monocytes/100 WBC (Bld) 7 % Normal 2-8 [facility] Comment on above: Performed By: #### C P, CDP, COSMO, BHCG, MG, VD25, LIP #### [address] [address] [employer]: Campos Avilez MD Neutrophil (Seg) 75 % High 34-64 [facility] Comment on above: Performed By: #### C P, CDP, COSMO, BHCG, MG, VD25, LIP #### [address] [address] [employer]: Campos Avilez MD NRBC Automated 0.0 per 100 WBC Normal 0.0 [facility] Comment on above: Performed By: #### C P, CDP, COSMO, BHCG, MG, VD25, LIP #### [address] [address] [employer] Hel[employer]: Campos Avilez MD Platelet mean volume (Bld) [Entitic vol] 11.8 fL Normal 8.1-13.5 [facility] Comment on above: Performed By: #### C P, CDP, COSMO, BHCG, MG, VD25, LIP #### [address] [address] [employer]: Campos Avilez MD Platelets (Bld) [#/Vol] 288 10*3/uL Normal 138-453 [facility] Comment on above: Performed By: #### C P, CDP, COSMO, BHCG, MG, VD25, LIP #### [address] [address] [employer]: Campos Avilez MD RBC (Bld) [#/Vol] 4.17 10*6/uL Normal 3.95-5.11 [facility] Comment on above: Performed By: #### C P, CDP, COSMO, BHCG, MG, VD25, LIP #### [address] [address] [employer]: Campos Avilez MD WBC (Bld) [#/Vol] 10.8 10*3/uL Normal 4.5-13.5 [facility] Comment on above: Performed By: #### C P, CDP, COSMO, BHCG, MG, VD25, LIP #### [address] [address] [employer] Hel[employer]: Campos Avilez MD Auto Diff Performed NOT REPORTED Normal [facility] Comment on above: Performed By: #### C P, CDP, COSMO, BHCG, MG, VD25, LIP #### [address] [address] [employer] Hel[employer]: Campos Avilez MD Platelets (Bld) [#/Vol] NOT REPORTED Normal [facility] Comment on above: Performed By: #### C P, CDP, COSMO, BHCG, MG, VD25, LIP #### [id number] [place] [address] [employer] Helper: Campos Avilez MD RBC morphology finding Nom (Bld) NOT REPORTED Normal [facility] Comment on above: Performed By: #### C P, CDP, COSMO, BHCG, MG, VD25, LIP #### [facility] [address] [place] [phone] [employer] Hel[employer]: Campos Avilez MD WBC Morphology NOT REPORTED Normal [facility] Comment on above: Performed By: #### C P, CDP, COSMO, BHCG, MG, VD25, LIP #### [address] [address] [employer]: Campos Avilez MD Calcium, Ionicon 07-08-2020 Calcium [Mass/Vol] 1.18 mmol/L Normal 1.13-1.33 [facility] Comment on above: Performed By: #### I OCAL #### [address] [address] [employer]: Campos Avilez MD Calcium, Ionizedon Calcium [Mass/Vol] 1.18 mmol/L 1.13 - 1. 33 mmol/L [facility] [place] Comp Metabolic Profon 2020 (cont.) Normal [facility] Comment on above: Result Comment: Aver age GFR for <20 years old not available. Chronic Kidney Disease: <60 mL/min/1.73sq m Kidney failure: <15 mL/min/1.73sq m eGFR calculated using average adult body mass. Additional eGFR calculator available at: http://www.[employer].com/multiple_crcl_2012.htm Performed By: #### C P, CDP, COSMO, BHCG, MG, VD25, LIP #### [address] [address] [employer] Hel[employer]: Campos Avilez MD Albumin [Mass/Vol] 2.3 g/dL Low 3.5-5.2 [facility] Comment on above: Performed By: #### C P, CDP, COSMO, BHCG, MG, VD25, LIP #### [address] [address] [employer] Hel[employer]: Campos Avilez MD Albumin/Globulin [Mass ratio] 0.9 {ratio} Low 1.0-2.5 [facility] Comment on above: Performed By: #### C P, CDP, COSMO, BHCG, MG, VD25, LIP #### [address] [address] [employer]: Campos Avilez MD Alkaline Phos 41 U/L Normal 35-104 [facility] Comment on above: Result Comment: SPEC IMEN MODERATELY HEMOLYZED, RESULTS MAY BE ADVERSELY AFFECTED Performed By: #### C P, CDP, COSMO, BHCG, MG, VD25, LIP #### [address] [address] [employer]: Campos Avilez MD ALT [Catalytic activity/Vol] 11 U/L Normal 5-33 [facility] Comment on above: Result Comment: SPEC IMEN MODERATELY HEMOLYZED, RESULTS MAY BE ADVERSELY AFFECTED Performed By: #### C P, CDP, COSMO, BHCG, MG, VD25, LIP #### [address] [address] [employer] Hel[employer]: Campos Avilez MD Anion gap [Moles/Vol] 9 mmol/L Normal 9-17 [facility] Comment on above: Performed By: #### C P, CDP, COSMO, BHCG, MG, VD25, LIP #### [address] [address] [employer] Hel[employer]: Campos Avilez MD AST [Catalytic activity/Vol] 28 U/L Normal <32 [facility] Comment on above: Result Comment: SPEC IMEN MODERATELY HEMOLYZED, RESULTS MAY BE ADVERSELY AFFECTED Performed By: #### C P, CDP, COSMO, BHCG, MG, VD25, LIP #### [facility] [address] [place] [address] [employer] Hel[employer]: Campos Avilez MD Bilirubin Ql (U) <0.10 Low 0.3-1.2 [facility] Comment on above: Performed By: #### C P, CDP, COSMO, BHCG, MG, VD25, LIP #### [facility] [address] [place] [address] [employer] Hel[employer]: Campos Avilez MD Calcium [Mass/Vol] 5.5 mg/dL Critically low 8.6-10.4 [facility] Comment on above: Performed By: #### C P, CDP, COSMO, BHCG, MG, VD25, LIP #### [facility] [address] [place] [phone] [employer] Hel[employer]: Campos Avilez MD Chloride [Moles/Vol] 118 mmol/L High 98-107 [facility] Comment on above: Performed By: #### C P, CDP, COSMO, BHCG, MG, VD25, LIP #### [facility] [address] [place] [address] [employer] Hel[employer]: Campos Avilez MD CO2 [Moles/Vol] 14 mmol/L Low 20-31 [facility] Comment on above: Performed By: #### C P, CDP, COSMO, BHCG, MG, VD25, LIP #### [facility] [address] [place] [phone] [employer] Helper: Campos Avilez MD Creatinine [Mass/Vol] 0.60 mg/dL Normal 0.50-0.90 [facility] Comment on above: Performed By: #### C P, CDP, COSMO, BHCG, MG, VD25, LIP #### [address] [address] [employer] Hel[employer]: Campos Avilez MD GFR,non Amer Pediatric GFR requires additional information. Refer to NKDEP website for Normal >60 [facility] Comment on above: Result Comment: calc ulator. Performed By: #### C P, CDP, COSMO, BHCG, MG, VD25, LIP #### [address] [address] [employer] Hel[employer]: Campos Avilez MD Glucose [Mass/Vol] 84 mg/dL Normal 70-99 [facility] Comment on above: Performed By: #### C P, CDP, COSMO, BHCG, MG, VD25, LIP #### [address] [address] [employer] Hel[employer]: Campos Avilez MD Potassium [Moles/Vol] 5.1 mmol/L Normal 3.7-5.3 [facility] Comment on above: Result Comment: SPEC IMEN MODERATELY HEMOLYZED, RESULTS MAY BE ADVERSELY AFFECTED Performed By: #### C P, CDP, COSMO, BHCG, MG, VD25, LIP #### [address] [address] [employer] Hel[employer]: Campos Avilez MD Protein [Mass/Vol] 5.0 g/dL Low 6.4-8.3 [facility] Comment on above: Performed By: #### C P, CDP, COSMO, BHCG, MG, VD25, LIP #### [address] [address] [employer] Hel[employer]: Campos Avilez MD Sodium [Moles/Vol] 141 mmol/L Normal 135-144 [facility] Comment on above: Performed By: #### C P, CDP, COSMO, BHCG, MG, VD25, LIP #### [address] [address] [employer] Hel[employer]: Campos Avilez MD Urea nitrogen [Mass/Vol] 10 mg/dL Normal 6-20 [facility] Comment on above: Performed By: #### C P, CDP, COSMO, BHCG, MG, VD25, LIP #### [address] [address] [employer] Helper: Campos Avilez MD BUN/CRE Ratio NOT REPORTED Normal 9-20 [facility] Comment on above: Performed By: #### C P, CDP, COSMO, BHCG, MG, VD25, LIP #### [facility] [address] [place] [phone] [employer] Helper: Campos Avilez MD GFR, Amer NOT REPORTED Normal >60 [facility] Comment on above: Performed By: #### C P, CDP, COSMO, BHCG, MG, VD25, LIP #### [facility] [address] [place] [address] [employer] Helper: Campos Avilez MD Staging: NOT REPORTED Normal [facility] Comment on above: Performed By: #### C P, CDP, CSOMO, BHCG, MG, VD25, LIP #### [facility] [address] [place] [phone] [employer] Helper: Campos Avilez MD HCG, ,Urineon 07-086 Beta HCG ( test) Ql (U) Negative Normal NEG [facility] Comment on above: Result Comment: [...] Performed By: #### U HCG, UAMIC #### [address] [address] [employer] Hel[employer]: Campos Avilez MD HCG, Quanton 07-08-2020 HCG, Quant <1 Normal <5 [facility] Comment on above: Result Comment: [...] CDP, COSMO, BHCG, MG, VD25, LIP #### [facility] [address] [place] [phone] [employer] Hel[employer]: Campos Avilez MD Lipaseon 07-08-2020 Lipase [Catalytic activity/Vol] 15 U/L Normal 13-60 [facility] Comment on above: Performed By: #### C P, CDP, COSMO, BHCG, MG, VD25, LIP #### [facility] [address] [place] [phone] [employer] Hel[employer]: Campos Avilez MD Magnesiumon 07-08-2020 Magnesium [Mass/Vol] 1.2 mg/dL Low 1.7-2.2 [facility] Comment on above: Performed By: #### C P, CDP, COSMO, BHCG, MG, VD25, LIP #### [facility] [address] [place] [phone] [employer] Hel[employer]: Campos Avilez MD Interpretation and review of laboratory results Abnormal [place] Magnesium [Mass/Vol] 1.2 mg/dL Low 1.7 - 2 .2 mg/dL [place] Otheron 07-08-2020 Direct Exam Negative [place], [place] , URINEon 1 Beta HCG ( test) Ql (U) Negative NEGATIVE [place] Comment on above: Specimens with hCG [...] 2.6 mg/dL 2.5 - 4 .8 mg/dL [place] Phosphorus, Inorg.on 021 Phosphorus, Inorg. 2.6 mg/dL Normal 2.5-4.8 [facility] Comment on above: Performed By: #### U HCG, UAMIC #### [facility] [address] [place] [address] [employer] Hel[employer]: Campos Avilez MD NON OB TRANSVAGINALon Elia, Mhpn Incoming Radiant Results From [employer] - 07/08/2020 12:31 AM EST EXAMINATION: PELVIC [...] No evidence of ovarian torsion is noted. [place], [place] Unremarkable pelvic ultrasound. No evidence of ovarian torsion is noted. [place] EXAMINATION: PELVIC ULTRASOUND 07/07/2020 TECHNIQUE: Transvaginal [...] Free Fluid: No evidence of free fluid. [facility]- [place], [place] Urinalysis w/ Microon 2020 ----- Normal [facility] Comment on above: Performed By: #### U HCG, UAMIC #### [address] [address] [employer] Helper: Campos Avilez MD Acetoacetic Acid,Ur Negative Normal NEG [facility] Comment on above: Performed By: #### U HCG, UAMIC #### [address] [address] [employer] Helper: Campos Avilez MD Bacteria LM.HPF (Urine sed) [#/Area] MANY Abnormal NONE [facility] Comment on above: Performed By: #### U HCG, UAMIC #### [address] [address] [employer] Helper: Campos Avilez MD Bilirubin, SemiQt,Ur Negative Normal NEG [facility] Comment on above: Performed By: #### U HCG, UAMIC #### [address] [address] [employer] Helper: Campos Avilez MD Color (U) ORANGE Abnormal YEL [facility] Comment on above: Result Comment: INTE RPRET WITH CAUTION DUE TO INTENSE COLOR OF URINE. Performed By: #### U HCG, UAMIC #### [address] [address] [employer] Hel[employer]: Campos Avilez MD Epithelial cells LM.HPF (Urine sed) [#/Area] 0 TO 2 Normal 0-5 [facility] Comment on above: Performed By: #### U HCG, UAMIC #### [address] [address] [employer] Helper: Campos Avilez MD Glucose Ql (U) Negative Normal NEG [facility] Comment on above: Performed By: #### U HCG, UAMIC #### [address] [address] [employer] Helper: Campos Avilez MD Hemoglobin, Ur LARGE Abnormal NEG [facility] Comment on above: Performed By: #### U HCG, UAMIC #### [address] [address] [employer] Helper: Campos Avilez MD Leukocyte esterase Test strip Ql (U) MODERATE Abnormal NEG [facility] Comment on above: Performed By: #### U HCG, UAMIC #### [address] [address] [employer] Helper: Campos Avilez MD Nitrite,Ur Positive Abnormal NEG [facility] Comment on above: Performed By: #### U HCG, UAMIC #### [address] [address] [employer] Hel[employer]: Campos Avilez MD pH (U) 5.5 [pH] Normal 5.0-8.0 [facility] Comment on above: Performed By: #### U HCG, UAMIC #### [address] [address] [employer] Helper: Campos Avilez MD Protein Ql (U) 2+ Abnormal NEG [facility] Comment on above: Performed By: #### U HCG, UAMIC #### [address] [address] [employer] Hel[employer]: Campos Avilez MD RBC (U) [#/Vol] 50 TO 100 Normal 0-4 [facility] Comment on above: Result Comment: Refe rence range defined for non-centrifuged specimen. Performed By: #### U HCG, UAMIC #### [address] [address] [employer] Hel[employer]: Campos Avilez MD Specific gravity (U) [Rel density] 1.021 Normal 1.005-1.030 [facility] Comment on above: Performed By: #### U HCG, UAMIC #### [address] [address] [employer] Helper: Campos Avilez MD Turbidity TURBID Abnormal CLEAR [facility] Comment on above: Performed By: #### U HCG, UAMIC #### [address] [address] [employer] Helper: Campos Avilez MD Urobilinogen,Ur Normal Normal NORM [facility] Comment on above: Performed By: #### U HCG, UAMIC #### [address] [address] [employer] Helper: Campos Avilez MD WBC (U) [#/Vol] TOO NUMEROUS TO COUNT Normal 0-5 [facility] Comment on above: Performed By: #### U HCG, UAMIC #### [address] [address] [employer] Helper: Campos Avilez MD Amorphous sediment LM Ql (Urine sed) NOT REPORTED Normal NONE [facility] Comment on above: Performed By: #### U HCG, UAMIC #### [address] [address] [employer] Helper: Campos Avilez MD Casts LM.LPF (Urine sed) [#/Area] NOT REPORTED Normal 0-8 [facility] Comment on above: Performed By: #### U HCG, UAMIC #### [address] [address] [employer] Helper: Campos Avilez MD Crystals LM Nom (Urine sed) NOT REPORTED Normal NONE [facility] Comment on above: Performed By: #### U HCG, UAMIC #### [address] [address] [employer] Helper: Campos Avilez MD Epithelial, Renal NOT REPORTED Normal 0 [facility] Comment on above: Performed By: #### U HCG, UAMIC #### [address] [address] [employer] Hel[employer]: Campos Avilez MD Mucus Strands NOT REPORTED Normal NONE [facility] Comment on above: Performed By: #### U HCG, UAMIC #### [address] [address] [employer] Helper: Campos Avilez MD Other Observations NOT REPORTED Normal NREQ [facility] Comment on above: Performed By: #### U HCG, UAMIC #### [address] [address] [employer] Helper: Campos Avilez MD Trichomonas NOT REPORTED Normal NONE [facility] Comment on above: Performed By: #### U HCG, UAMIC #### [address] [address] [employer] Hel[employer]: Campos Avilez MD Yeast LM Ql (Urine sed) NOT REPORTED Normal [facility] Comment on above: Performed By: #### U HCG, UAMIC #### [facility] [address] [place] [phone] [employer] Helper: Campos Avilez MD Urinalysis with microscopico n 07-08-2020 Amorphous, UA NOT REPORTED None [facility] [place], [place] Bacteria, UA MANY Abnormal None [facility] - [place] Bilirubin Urine Negative NEGATIVE [facility] [place] Casts UA NOT REPORTED [facility] [place], [place] Color, UA ORANGE Abnormal YELLOW [facility], [place] Comment on above: INTERPRET WITH CAUTI ON DUE TO INTENSE COLOR OF URINE. Crystals, UA NOT REPORTED None /HPF [place] Epithelial Cells UA 0 TO 2 [place] Glucose, Ur Negative NEGATIVE [place] Interpretation and review of laboratory results Abnormal [place] Ketones Ql (U) Negative NEGATIVE [place] Leukocyte esterase Test strip Ql (U) MODERATE Abnormal NEGATIVE [place] Mucus, UA NOT REPORTED None [place], [place] Nitrite, Urine Positive Abnormal NEGATIVE [place] Other Observations UA NOT REPORTED NOT REQ. M [place] pH, UA 5.5 [place] Protein (U) [Mass/Vol] 2+ Abnormal NEGATIVE [place], [place] RBC (U) [#/Vol] 50 TO 100 [place], [place] Comment on above: Reference range defi sonia for non-centrifuged specimen. Renal Epithelial, UA NOT REPORTED 0 /HPF [place], [place] Specific [place], UA 1.021 [place], [place] Trichomonas, UA NOT REPORTED None [place], [place] Turbidity UA TURBID Abnormal CLEAR [place] Urine Hgb LARGE Abnormal NEGATIVE [place] Urobilinogen, Urine Normal Normal [place] WBC, UA TOO NUMEROUS TO COUNT [place] Yeast, UA NOT REPORTED None [place] - [place] VAGINITIS DNA PROBEon 2020 Direct Exam Positive Abnormal [place] Direct Exam Method of testing is a DNA probe intended for detection and identification of Samantha species, Gardnerella vaginalis, and Trichomonas vaginalis nucleic acid in vaginal fluid specimens from patients with symptoms of vaginitis/vaginosis. [place] Interpretation and review of laboratory results Abnormal [place] Special Requests NOT REPORTED [place] Specimen Description .VAGINA [place] Vaginitis DNA Probeon 2020 Vaginitis DNA [...] of vaginitis/vaginosis. Report Status FINAL 07/08/2020 Normal [facility] Comment on above: Performed By: #### U HCG, UAMIC #### [employer] [address] [place] [phone] [employer] Helper: Campos Avilez MD Vitamin D 25 Hydroxyon 07-08 Interpretation and review of laboratory results Abnormal [place] Vit D, 25-Hydroxy 12.1 ng/mL Low 30 - 100 ng/mL [place] Comment on above: Reference Range: Vitamin D status Range Deficiency <20 ng/mL Mild Deficiency 20-30 ng/mL Sufficiency 30-100 ng/mL Toxicity >100 ng/mL Vitamin D 25 OHon 07-08-2020 Vitamin D 25 [place] 12.1 ng/mL Low 30.0-100.0 [facility] Comment on above: Result Comment: Reference Range: Vitamin D status Range Deficiency <20 ng/mL Mild Deficiency 20-30 ng/mL Sufficiency 30-100 ng/mL Toxicity >100 ng/mL Performed By: #### U HCG, UAMIC #### [facility] [address] [place] [phone] [employer] Helper: Campos Avilez MD ABO/RHon 07-07-2020 ABO/Rh Positive [place] CBC WITH AUTO DIFFERENTIALon 07-07-2020 Basophils (Bld) [#/Vol] 0.04 10*3/uL [place] Basophils/100 WBC (Bld) 0 % 0 - 2 % [place] Differential Type NOT REPORTED [place] Eosinophils (Bld) [#/Vol] 0.10 10*3/uL [place] Eosinophils/100 WBC (Bld) 1 % 1 - 4 % [place] Erythrocyte distribution width (RBC) [Ratio] 14.0 % 11.8 - 14.4 % [place] Hematocrit (Bld) [Volume fraction] 34.3 % Low 36.3 - 47.1 % [place] Hemoglobin (Bld) [Mass/Vol] 11.1 g/dL Low 11.9 - 15.1 g/dL [place] Immature granulocytes (Bld) [#/Vol] 0 % 0 [place] Immature granulocytes (Bld) [#/Vol] 0.04 10*3/uL [place] Interpretation and review of laboratory results Abnormal [place] Lymphocytes (Bld) [#/Vol] 1.77 10*3/uL [place] Lymphocytes/100 WBC (Bld) 16 % Low 25 - 45 % [place] MCH (RBC) [Entitic mass] 26.6 pg 25 - 35 pg [place] MCHC (RBC) [Mass/Vol] 32.4 g/dL 28.4 - 34.8 g/dL [place] MCV (RBC) [Entitic vol] 82.3 fL 78 - 102 fL [place] Monocytes (Bld) [#/Vol] 0.73 10*3/uL [place] Monocytes/100 WBC (Bld) 7 % 2 - 8 % [place] Platelet mean volume (Bld) [Entitic vol] 11.8 fL 8.1 - 13.5 fL [place] Platelets (Bld) [#/Vol] NOT REPORTED [place] Platelets (Bld) [#/Vol] 288 10*3/uL [place] RBC (Bld) [#/Vol] 4.17 10*6/uL 3.95 - 5.1 1 m/uL [place] RBC morphology finding Nom (Bld) NOT REPORTED [place] Segmented neutrophils/100 WBC (Bld) 75 % High 34 - 64 % [place] Segs Absolute 8.16 High [place] WBC (Bld) [#/Vol] 0.0 10*3/uL 0.0 per 10 0 WBC [place] WBC (Bld) [#/Vol] 10.8 10*3/uL [place] WBC Morphology NOT REPORTED [place] COMPREHENSIVE METABOLIC PANE Mikie 07-07-2020 Albumin [Mass/Vol] 2.3 g/dL Low 3.5 - 5.2 g/dL [place] Albumin/Globulin [Mass ratio] 0.9 {ratio} Low [place] ALP [Catalytic activity/Vol] 41 U/L 35 - 104 U/L [place] Comment on above: SPECIMEN MODERATELY HEMOLYZED, RESULTS MAY BE ADVERSELY AFFECTED ALT [Catalytic activity/Vol] 11 U/L 5 - 33 U/L [place] Comment on above: SPECIMEN MODERATELY HEMOLYZED, RESULTS MAY BE ADVERSELY AFFECTED Anion gap [Moles/Vol] 9 mmol/L 9 - 17 mmol/L [place] AST [Catalytic activity/Vol] 28 U/L <32 [place] Comment on above: SPECIMEN MODERATELY HEMOLYZED, RESULTS MAY BE ADVERSELY AFFECTED Bilirubin Ql (U) <0.10 Low 0.3 - 1.2 mg/dL [place] Bun/Cre Ratio NOT REPORTED [place] Calcium [Mass/Vol] 5.5 mg/dL Critically low 8.6 - 1 0.4 mg/dL [place] Chloride [Moles/Vol] 118 mmol/L High 98 - 10 7 mmol/L [place] CO2 [Moles/Vol] 14 mmol/L Low 20 - 31 mmol/L [place] Creatinine [Mass/Vol] 0.6 mg/dL 0.5 - 0.9 mg/dL [place] GFR NOT REPORTED >60 mL/min [place] GFR Non- Pediatric GFR requires additional information. Refer to NKDEP website for calculator. >60 mL/min [place] GFR/1.73 sq M predicted among non-blacks MDRD (S/P/Bld) [Vol rate/Area] NOT REPORTED [place] GFR/1.73 sq M predicted among non-blacks MDRD (S/P/Bld) [Vol rate/Area] [place] Comment on above: Average GFR for <20 years old not available. Chronic Kidney Disease: <60 mL/min/1.73sq m Kidney failure: <15 mL/min/1.73sq m eGFR calculated using average adult body mass. Additional eGFR calculator available at: http://www.[employer]/multiple_crcl_2012.htm Glucose [Mass/Vol] 84 mg/dL 70 - 99 mg/dL [place] Interpretation and review of laboratory results Abnormal [place] Potassium [Moles/Vol] 5.1 mmol/L 3.7 - 5.3 mmol/L [place] Comment on above: SPECIMEN MODERATELY HEMOLYZED, RESULTS MAY BE ADVERSELY AFFECTED Protein [Mass/Vol] 5.0 g/dL Low 6.4 - 8.3 g/dL [place] Sodium [Moles/Vol] 141 mmol/L 135 - 144 mmol/L [place] Urea nitrogen [Mass/Vol] 10 mg/dL 6 - 20 mg/dL [place] HCG, QUANTITATIVE, on 07-07-2020 hCG Quant <1 <5 IU/L [place] Comment on above: Non-preg premeno <=5 [...] activity/Vol] 15 U/L 13 - 60 U/L [place] Vital Signs Date Time Vital Sign Value Performing Clinician Facility 10-26-2023 03:30-0400 Hourly Rounding Fuentes Florentino [facility] Comment on above: Result Comment: pt discharged off unit 10-26-2023 03:15-0400 Hourly Rounding Fuentes Florentino [facility] Comment on above: Result Comment: went over discharge inst ructions. educated pt on importance of contacting primary provider with future concerns, pisking up antibiotic prescription tomorrow, and calling is symtpoms return or get worse. 10-26-2023 00:00-0400 Blood Pressure Location Fuentes Florentino [facility] 10-26-2023 00:00-0400 Body temperature 98.6 [degF] Fuentes Florentino [facility] 10-26-2023 00:00-0400 Diastolic blood pressure 68 mm[Hg] Fuentes Florentino [facility] 10-26-2023 00:00-0400 Heart rate 101 /min Fuentes Florentino [facility] 10-26-2023 00:00-0400 Hourly Rounding Fuentes Florentino [facility] 10-26-2023 00:00-0400 Mean blood pressure 86 mm[Hg] Fuentes Florentino [facility] 10-26-2023 00:00-0400 Respiratory rate 16 /min Fuentes Florentino [facility] 10-26-2023 00:00-0400 Systolic blood pressure 122 mm[Hg] Fuentes Florentino [facility] 07-17-2023 11:42-0500 Body weight 127.82 kg Chung Benja SkemA Work Phone: [facility] 07-17-2023 11:42-0500 Diastolic blood pressure 70 mm[Hg] Chung Benja DO Work Phone: [facility] 07-17-2023 11:42-0500 Systolic blood pressure 118 mm[Hg] Chung Benja DO Work Phone: [facility] 10-19-2021 01:12-0400 Diastolic blood pressure 62 mm[Hg] PHYSICIAN [facility] 10-19-2021 01:12-0400 Heart rate 89 /min PHYSICIAN [facility] 10-19-2021 01:12-0400 Respiratory rate 18 /min PHYSICIAN [facility] 10-19-2021 01:12-0400 SaO2% (BldA) [Mass fraction] 100 % PHYSICIAN [facility] 10-19-2021 01:12-0400 Systolic blood pressure 130 mm[Hg] PHYSICIAN [facility] 10-18-2021 23:10-0400 Body height 167.64 cm PHYSICIAN [facility] 10-18-2021 23:10-0400 Body mass index (BMI) [Percentile] Per age and sex 99.1 % PHYSICIAN [facility] 10-18-2021 23:10-0400 Body mass index (BMI) [Ratio] 48.2 kg/m2 PHYSICIAN [facility] 10-18-2021 23:10-0400 Body weight 135.5 kg PHYSICIAN [facility] 10-18-2021 23:08-0400 Body temperature 98.4 [degF] PHYSICIAN [facility] 07-07-2020 21:51-0500 BMI (Body Mass Index) 42.93 kg/m2 [facility] [place] 07-07-2020 21:51-0500 Body [facility] 120.66 [facility] [place] [place] 07-07-2020 21:51-0500 BP Diastolic 85 mm[Hg] [facility] [place] 07-07-2020 21:51-0500 BP Systolic 136 mm[Hg] [facility] [place] 07-07-2020 21:51-0500 Height 167.6 cm [facility] [place] 07-07-2020 21:51-0500 Pulse (Heart Rate) 93 /min [facility] [place] 07-07-2020 21:51-0500 Pulse Oximetry 97 % [facility] [place] 07-07-2020 21:51-0500 Respiratory Rate 18 /min [facility], [place] 07-07-2020 21:48-0500 Body Temperature 97.11 [degF] [facility] [place] Encounters Encounter Date Encounter [...] 10-26-2023 End: 10-26-2023 ambulatory Fuentes Florentino Facility:[facility] Start: 10-25-2023 End: 10-26-2023 OB Triage Fuentes Florentino [facility] Start: 10-07-2023 End: 10-07-2023 ambulatory [...] Emergency department patient visit PHYSICIAN NO FAMILY Facility:[facility] Start: 10-18-2021 End: 10-19-2021 Emergency department patient visit PHYSICIAN NO FAMILY [facility] Start: 07-07-2020 End: 07-08-2020 Emergency department patient visit DAVID AQUINO [facility] Start: 07-07-2020 End: 07-08-2020 Emergency department patient visit Lisa Land Work Phone: [facility] ED Comment on above: [...] AM EDT Routine [facility] [address] [place] [id number] Halima Cullen PA [address] [place], [place] [id number] [facility] Start: 07-17-2023 End: 07-17-2024 US for US OB VIABLILITY Imaging Routine with uncertain viability, single or unspecified fetus Expected: 07/17/2023 (Approximate), Expires: 07/17/2024 [facility] Work Phone: Comment on above: Expected: [...] 02-01-2020 Influenza vaccination Flu vaccine (# 1) [place] Start: 2018 Meningococcal (ACWY) vaccine (1 - 2-dose series) Meningococcal (ACWY) vaccine (1 - 2-dose series) [place] Start: 2018 Screening for Chlamy nancy trachomatis Chlamydia screen [place] Start: 2017 HIV screening HIV screen [place], [place] Start: 2013 HPV vaccine (1 - 2-d ose series) HPV vaccine (1 - 2-dose series) [place] Start: 2009 DTaP/Tdap/Td vaccine (1 - Tdap) DTaP/Tdap/Td vaccine (1 - Tdap) [place] Start: 2003 Hepatitis A vaccine (1 of 2 - 2-dose series) Hepatitis A vaccine (1 of 2 - 2-dose series) [place] Start: 2003 Measles,Mumps,Rubell a (MMR) vaccine (1 of 2 - Standard series) Measles,Mumps,Rubella (MMR) vaccine (1 of 2 - Standard series) [place] Start: 2003 Varicella vaccine (1 of 2 - 2-dose childhood series) Varicella vaccine (1 of 2 - 2-dose childhood series) [place] Start: 2002 Hepatitis B vaccine (1 of 3 - 3-dose primary series) Hepatitis B vaccine (1 of 3 - 3-dose primary series) [place] Start: 2002 Hepatitis C screening [facility] [place] Bacteria identified in Urine by Culture Urine culture Microbiology Routine Missed menses Ordered: 07/03/2023 [facility] Comment on above: Ordered: 07/03/2023 End: 07-07-2020 C.trachomatis N.gonorrhoeae DNA C.trachomatis N.gonorrhoeae DNA Microbiology STAT One Time for 1 Occurrences starting 07/07/2020 until 07/07/2020 [place] Comment on above: One Time for 1 Occur rences starting 07/07/2020 until 07/07/2020 C.trachomatis N.gonorrhoeae DNA C.trachomatis N.gonorrhoeae DNA Microbiology Stat [employer] Label print 07/07/2020 11:20 PM [place] End: 07-08-2020 Calcium, Ionized Calcium, Ionized Lab STAT One Time for 1 Occurrences starting 07/08/2020 until 07/08/2020 [place] Comment on above: One Time for 1 Occur rences starting 07/08/2020 until 07/08/2020 CBC W Auto Different ial panel - Blood CBC and differential Lab Routine Missed menses Ordered: 07/03/2023 [facility] Comment on above: Ordered: 07/03/2023 End: 07-07-2020 Culture, Urine Culture, Urine Microbiology STAT One Time for 1 Occurrences starting 07/07/2020 until 07/07/2020 [place] Comment on above: One Time for 1 Occur rences starting 07/07/2020 until 07/07/2020 Culture, Urine Culture, Urine Microbiology Stat [employer] Label print 07/07/2020 10:56 PM [facility] [place] Hemoglobin A1c measurement Hemoglobin A1c Lab Routine [...] Education Common Breast Problems Pelvic Pain ED [facility] Work Phone: Patient referral [facility] Work Phone: [facility] [Presence] in [...] 1 Occurrences starting 07/07/2020 until 07[facility]07/[facility] Comment on above: Once for 1 Occurrenc es starting 07/07/2020 until 07/07/2020 US DUP ABD PEL RETRO SCROT LIMITED US DUP ABD PEL RETRO SCROT LIMITED Imaging STAT 07/08/2020 12:[address] [facility] Payers Date Payer Category Payer Unknown BCBS BCBS xxxxxx [id number] 2023-Present [phone] [address] [place] [address] [id number] 2023 Unknown [id number] 2021 [facility] [id number] 2002 Unknown [id number] 2002 Unknown [id number] [id number] 2002 Unknown [id number] [id number] 2002 Unknown [id number] [id number] 2002 Unknown [id number] [id number] 2002 Unknown [id number] [id number] 2002 Unknown [id number] [id number] 2002 Unknown [id number] [id number] 2002 Unknown [id number] [id number] 2002 Unknown [id number] [id number] 2002 Unknown [id number] [id number] 2002 Unknown [id number] [id number] 2002 Unknown [id number] [id number] 2002 Unknown [id number] [id number] 2002 Unknown [id number] [id number] 1959 Medicaid [id number] 1959 Unknown [id number] Unknown [id number] Social History Date Type Detail Facility Start: 07-07-2020 End: 07-16-2023 Tobacco smoking status ALIS Never smoker [facility] Start: 07-07-2020 Tobacco use and exposure Never used [facility] Start: 2002 Sex Assigned At Not on file [place] Exposure to SARS-CoV-2 (event) Not sure [place] Start: 10-19-2021 Tobacco smoking status ALIS Smoker (finding) [facility] Start: 2002 Sex Assigned At Female F [facility] Tobacco smoking status [facility] Tobacco smoking consumption unknown [facility] Start: 05-22-2023 [facility] Start: 07-16-2023 Gender identity Not on file [facility] Start: 07-16-2023 End: 07-17-2023 Alcohol intake Lifetime non-drinker (finding) [facility] Start: 07-16-2023 History of Social function [facility] Tobacco smoking status No Smoking Status Entered [facility] Functional Status Date Assessment Result Facility 10-26-2023 Functional Status N/A [facility] Clinical Notes 07-03-2023 to 10-26-2023 Chung Yousif DO - 07/17/2023 11:10 AM Costa Kilgore LPN - 07/03/2023 1:00 PM EST Note Date & Type Note Facility 10-26-2023 Note The following Patien t Education Materials have been given to the patient: EducationMaterial [facility] 10-26-2023 Hospital Discharg e instructions [...] provider. Document Revised: 01/02/2022 Document Reviewed: 01/02/2022 [employer] Patient Education 2022 Emair. 10/26/2023 03:10:04 Vaginal Bleeding During , Second [...] help with your regular activities. Medicines Take uajt-enm-leyahec and prescription medicines only as told by [...] provider. Document Revised: 02/08/2021 Document Reviewed: 02/08/2021 [employer] Patient Education 2022 Emair. 10/26/2023 03:10:04 Back Pain in Back Pain [...] Standing, sitting, and lying down Do not fine sander one place for long periods of time. [...] your back during . General instructions Take dreb-dmu-jkvbryc and prescription medicines only as told by [...] care provider for managing back pain. Take zswe-cpf-amnmdfw and prescription medicines only as told by [...] provider. Document Revised: 08/01/2021 Document Reviewed: 08/01/2021 [employer] Patient Education 2022 Emair. Follow Up Care 10/25/2023 23:39:34 With:Chung YOUSIF Address: [address] , [place] [address] Business (1) When:11/04/2023 [facility] 10-25-2023 Evaluation + Plan note Diagnostic Tests PendingUrine Culture 10/25/23 [facility] 07-17-2023 History of Presen t illness Narrative Reason for Appointment: Patient ID: Teodoro Upton is a 23 y.o. female who presents for Routine Visit Patient presents today for Return OB appointment. Current Medications: has a current medication list which includes the following prescription(s): ppejmzzp-vpq-ac-fa and promethazine. Medical History: Active Ambulatory Problems Diagnosis Date Noted No Active Ambulatory Problems Resolved Ambulatory Problems Diagnosis Date Noted No Resolved Ambulatory Problems Past Medical History: Diagnosis Date ADD (attention deficit disorder) Asthma ([facility]) Family History Problem Relation Name Age [...] Problems Past Medical History: Diagnosis Date Asthma ([facility]) No family history on file. Social [...] Evaluation note No assessment inform ation available [facility] Work Phone: Evaluation note Diagnosis Missed menses Nausea and vomiting, unspecified vomiting type documented in this encounter [facility]* Diagnosis First trimester state, incidental Vaginal bleeding in Threatened miscarriage Threatened , unspecified as to episode of care with uncertain viability, single or unspecified fetus documented in this encounter [facility] Narrative No data available for this section [facility] Additional Instructions Please follow up as we discussed so you can have your concerns further evaluated.[facility] Work Phone: Progress note No data available for this section [facility] Discharge Instructions * Instructions* Brenda Stoner, - 07/08/2020 [facility] ED Clinic List Healthcare Providers Services Day of Week/ Hours [place] for [facility] Services [address] [facility] Pediatric Primary Care Adult Primary Care DIRECTOR OF DISTANCE LEARNING//Specialty Clinics Friday 8:00a 4:30p [address] Adult Medicine, Pediatrics, DIRECTOR OF DISTANCE LEARNING Friday 8:30a 4:30p [facility] [address] [facility] Friday 8:30a 11:00a [facility] [address] [facility] Adult Internal Medicine ([facility]) DIRECTOR OF DISTANCE LEARNING Clinic Pediatric Clinic Friday, Friday, , Friday 8:00a 4:30p Friday 1:00p 4:30p Friday, Friday, 8:00a 5:00p; Friday 8:00a 12:30p Friday 1p 4p Friday, Friday, , Friday 8:30a 4:15p Friday 12:30p 4:15p Health Department [address] Pediatric Primary Care Adult Primary Care OB/ Friday, Friday 8a 12p 8a 4:45p [facility] [address] [place] [address] [place] [address] # Pre & Post Adoption Counseling Support / nutrition Care Reward Incentive Program [place] Location Fri, , Fri, Fri 10:00a 4:30p Thur 10:00a 7:30p E [place] Location Friday - Friday 10a 4:30p [facility] DIRECTOR OF DISTANCE LEARNING [address] [facility] Adult Internal Medicine [address] [facility] Pediatrics [address] [facility], [address] Neuro / Headache [address] [facility] Friday 8:30a 5p [facility] [address] [facility] Fri, , , Fri 9:00a 4:30p Wed 1:00p 4:30p [facility] [address] [facility] [address] [facility] Friday 8:30a 5:00p [facility] Specialty Clinics [address] [facility] [address] Burn/Plastic, ENT, GI, Orthopedics, Surgical / Trauma, Urology, Vascular Friday 8:00 4:30p Call for an appointment [facility] [address] [facility] Adult Medicine, Eye Clinic, Dental Patient must be certified homeless Under age 18 not accepted Friday 8:00 4:30p [facility] [address] [facility] OB Friday, Friday, Friday, Friday 9a 5p 9a 6p Friday (OB only) [facility] [address] [facility] OB/ Friday 11a 7p , Fri, 9a 5p Friday 8a 4p 1st Friday 9a 1p Podiatry Clinic [address] [facility] Building [address] Friday 8:00 4:[address] [facility] [address] Free nurse visits [place] programs Counseling Class Call or walk in [facility] [address] Various Clinics 8a 5:30p [facility] Family Medicine [facility] [address] [facility], [address] [facility] Friday 8a 4:30p [facility] [address] [place], [place] [address] [address] [place] [address] Friday 8a 4:30p Friday 8a 4:30p 8a 8p Outpatient Clinics [facility] [address] [facility] Friday 9a 5p Diabetic Education Services Call for an appointment [facility] Heart Failure Clinic [address] [facility] Friday 8:30a 4p Dental Services [facility] [address] [facility] Must have source of income and must bring (2) recent check stubs to appointment By appointment only [facility] [address] Patient must be homeless, call for eligibility guidelines. Under age 18 NOT accepted Days and hours vary (Doors open at 8:30a day of week varies) Call for an appointment Miscellaneous Information [facility] Call for Help [phone] Call for an appointment H.E.L.P (Hospital Eligibility Link Program) toll free For financial assistance * Attachments The following attachments cannot be sent through Care Everywhere. * Bacterial Vaginosis (Czech) * UTI (Urinary Tract Infection): Female (Czech) * Vitamin D: General Info (Czech) documented in this encounter Assessments Diagnosis BV [...] section and content) DATE CREATED AUTHOR 07/16/2020 [facility] DATE CREATED AUTHOR AUTHOR'S ORGANIZ ATION 09/07/2022 [facility] DATE CREATED AUTHOR AUTHOR'S ORGANIZ ATION 03/13/[address] [facility] DATE CREATED AUTHOR AUTHOR'S ORGANIZ ATION 10/27/2023 [facility] DATE CREATED AUTHOR AUTHOR'S ORGANIZ ATION 10/31/2023 [place] [facility] DATE CREATED AUTHOR AUTHOR'S ORGANIZ ATION 01/03/2024 [facility] dical Specialists EPIC Care Teams (unrecognized [...] BE BASED ON THE PRIMARY CLINICAL RECORDS. [employer] provides no warranty or guarantee of the accuracy or completeness of information in this document.
[2024-01-16 17:07] VITALS: BP 145/62; PULSE 94
[2024-01-16 17:55] VITALS: BP 121/59; PULSE 91
== END 2024-01-16 17:55 | disposition home or self-care (01) ==
LOC: FBCO 07:01 → FBC 16:59
PROVIDERS: Visit Provider Obstetrics & Gynecology
DX: O40.3XX0 Polyhydramnios, third trimester, not applicable or unspecified (principal)
CPT/HCPCS: 59025

== ENCOUNTER 2024-01-20 07:00 | Outpatient (OUT) | payer MEDICAID, SELFPAY ==
--- OUTSIDE RECORDS SUMMARY | 2024-01-20 07:03 | XMS_ITS | CCD ---
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 [place] Medications Current Medications Medication Drug Class(es) [...] Refill(s) 0 Start Date: 10/26/23 Status: Ordered Sbcehqlh-Dvq-Hk-FA ( 1 + IRON PO) (4 sources) Aevxqovh-Foy-Mt-FA ( 1 + IRON PO) Take by [...] Range Facility Nursing Assessmenton 024 Nursing Assessment [id number] 2#1.00TIFF Normal [facility] Urineon 10-28-2023 Bacteria identified Cx Nom [...] This test was performed at: [facility], [address] [place] [address], [address] [place] [address], [facility] Comment on above: Performed By: #### 2 [id number] #### [facility] [address] [place] [address] Consent for Treatmenton 10-01 Consent for Treatment [id number] #1.00TIFF [facility] Discharge Instructionson Discharge Instructions [id number] 7#1.00TIFF [facility] Inpatient Clinical Summaryon 10-26-2023 Inpatient Clinical Summary [address] [address] Clinical Summary Person Information Name: [facility] Age[facility] 23 Years : 2000 Sex: Female PCP: NONE, XXXX Marital Status: Single Phone: [phone] Race: or Ethnicity: Non- or Language: Setswana Visit Id: Visit Reason: 24 WEEKS BLEEDING Speciality: Acuity: Obs Enc Type: OB Triage Med Service: Obstetrics Arrival: 10/25/2023 23:36:04 Discharge: 10/26/2023 03:30:56 Dispo Type: Home (Routine DC) Address: [facility] [address] [facility] [id number] Provider Notes: Diagnosis: Problems Active (10/26/2023) Smoker [...] Follow up: With: Address: When: [facility], [address] [place] [address] , [place] [address] [facility] (1) In 9 days 11/04/2023 Patient Education Information: and Urinary Tract Infection; Vaginal Bleeding During , Second Trimester; Back Pain in Normal [facility] Inpatient Patient Summaryon 10-26-2023 Inpatient Patient Summary [address] [address] Patient Discharge Instructions PERSON INFORMATION [...] Follow up: With: Address: When: [facility], [address] [place] [address] , [place] [address] Business (1) In 9 days [...] Always wi (more content not included)... Normal [facility] Insurance Correspondenceon 0 10-26-2023 Insurance Correspondence [id number] 8#1.00TIFF Normal [facility] UA with Cult Rflxon 10-26-19 24 Bacteria Auto Ql (U) Trace Normal Trace Fish [facility] Comment on above: Performed By: #### 4 [id number] #### [facility] [address] [place] [address] Bilirubin Ql (U) Negative Normal Negative [facility] Comment on above: Performed By: #### 4 [id number] #### [facility] [address] [place] [address] Clarity (U) Turbid Abnormal Clear [facility] Comment on above: Performed By: #### 4 [id number] #### [facility] [address] [place] [address] Color (U) Yellow Normal Yellow [facility] Comment on above: Result Comment: Micr oscopic readings are only performed on those samples that meet specific criteria set forth by [facility]. Performed By: #### 4 [id number] #### [facility] [address] [place] [address] Epithelial cells.squamous Auto (Urine sed) [#/Area] 5-8 Abnormal 0-2 [facility] Comment on above: Performed By: #### 4 [id number] #### [facility] [address] [place] [address] Glucose Ql (U) Negative Normal Negative [facility] Comment on above: Performed By: #### 4 [id number] #### [facility] [address] [place] [address] Hemoglobin Auto test strip (U) [Mass/Vol] Negative Normal Negative [facility] Comment on above: Performed By: #### 4 [id number] #### [facility] [address] [place] [address] Hyaline casts LM Ql (Urine sed) 0-3 Normal 0-3 [facility] Comment on above: Performed By: #### 4 [id number] #### [facility] [address] [place] [address] Ketones Auto test strip Ql (U) Negative Normal Negative [facility] Comment on above: Performed By: #### 4 [id number] #### [facility] [address] [place] [address] Leukocyte esterase Auto test strip Ql (U) 500 Gerald/uL Abnormal Negative [facility] Comment on above: Performed By: #### 4 [id number] #### [facility] [address] [place] [address] Mucus Auto Ql (U) Trace Normal Negative [facility] Comment on above: Performed By: #### 4 [id number] #### [facility] [address] [place] [address] Nitrite Auto test strip Ql (U) Negative Normal Negative [facility] Comment on above: Performed By: #### 4 [id number] #### [facility] [address] [place] [address] pH (U) 6.0 [pH] Invalid Interpretation Code 5.0-9.0 [facility] Comment on above: Performed By: #### 4 [id number] #### [facility] [address] [place] [address] Protein Ql (U) Trace Abnormal Negative [facility] Comment on above: Performed By: #### 4 [id number] #### [facility] [address] [place] [address] RBC Ql (U) 4-20 Abnormal 0-3 [facility] Comment on above: Performed By: #### 4 [id number] #### [facility] [address] [place] [address] Specific gravity (U) [Rel density] 1.030 Invalid Interpretation Code 1.005-1.030 [facility] Comment on above: Performed By: #### 4 [id number] #### [facility] [address] [place] [address] Urobilinogen (U) [Mass/Vol] Negative Normal Negative [facility] Comment on above: Performed By: #### 4 [id number] #### [facility] [address] [place] [address] WBC Auto (Urine sed) [#/Area] 16-25 Abnormal 0-5 [facility] Comment on above: Performed By: #### 4 [id number] #### [facility] [address] [place] [address] Type of Urine collection method Clean Catch Normal [facility] Comment on above: Performed By: #### 4 [id number] #### [facility] [address] [place] [address] URINALYSISOrdered By: SYSTEM SYSTEM on 10-25-2023 Bacteria [...] that meet specific criteria set forth by [facility]. Epithelial cells.squamous Auto (Urine sed) [#/Area] [...] 16-25 graded/HPF Invalid Interpretation Code 0-5graded/HP F [facility] UA Auto SS URINALYSISOrdered By: Elijah Hernandez on 10-25-2023 UA Spec Desc Clean Catch (10/25/23 11:53 PM) Normal [facility] UA Auto SS Urinalysis macro (dipstick) panel (U)on 07-17-2023 Bilirubin, UA Negative Negative - 4(70) +++ mg/dL [facility] Blood, UA Negative Negative - 50 William/mcL [facility] Clarity, UA Clear [facility] Color, UA Yellow [facility] Glucose, UA Negative Negative - 1999(110) ++++ mg/dL [facility] Interpretation and review of laboratory results Abnormal [facility] Ketones, UA Negative Negative - 160(16) ++++ mg/dL [facility] Leukocytes, UA Positive Negative - 500+++ Gerald/mcL [facility] Nitrite, UA Negative Negative - Positive [facility] pH, UA 7.0 5 - 9 [facility] Protein, UA Negative Negative - 1999(20) ++++ mg/dL [facility] Spec Grav, UA 1.020 1 - 1.03 [facility] Urobilinogen, UA 0.2 0.2 - 12 mg/dL [facility] HCG ( test) Ql (U)o n 07-03-2023 Interpretation and review of laboratory results Abnormal [facility] Preg Test, Ur Negative [facility] Urinalysis macro (dipstick) panel (U)on 07-03-2023 Bilirubin, UA Negative Negative - 4(70) +++ mg/dL [facility] Blood, UA Negative Negative - 50 William/mcL [facility] Clarity, UA Clear [facility] Color, UA Yellow [facility] Glucose, UA Negative Negative - 1999(110) ++++ mg/dL [facility] Interpretation and review of laboratory results Normal [facility] Ketones, UA Negative Negative - 160(16) ++++ mg/dL [facility] Leukocytes, UA Negative Negative - 500+++ Gerald/mcL [facility] Nitrite, UA Negative Negative - Positive [facility] pH, UA 5.5 5 - 9 [facility] Protein, UA Negative Negative - 1999(20) ++++ mg/dL [facility] Spec Grav, UA 1.010 1 - 1.03 [facility] Urobilinogen, UA 1.0 0.2 - 12 mg/dL [...] PADDY SAPP Date: 2022-08-30 14:42 Normal [facility] CBC AUTO DIFFon 06-28-2022 BASO # 0.0 103/ul Normal 0.0-0.1 [facility] Comment on above: Performed By: #### C BC #### [facility] [address] [place] [address] Dr. Jerald Poon Basophils/100 WBC (Bld) 0.3 % Normal 0.2-2.0 [facility] Comment on above: Performed By: #### C BC #### [facility] [address] [address] [address] Jerald Poon EO # 0.1 103/ul Normal 0.0-0.7 [facility] Comment on above: Performed By: #### C BC #### [facility] [address] [place] [address] Dr. Jerald Poon Eosinophils/100 WBC (Bld) 1.1 % Normal 0.9-7.0 [facility] Comment on above: Performed By: #### C BC #### [facility] [address] [place] [address] Dr. Jerald Poon Erythrocyte distribution width (RBC) [Ratio] 14.5 % Normal 11.0-15.0 [facility] Comment on above: Performed By: #### C BC #### [facility] [address] [place] [address] Dr. Jerald Poon Hematocrit (Bld) [Volume fraction] 36.7 % Normal 36.0-48.0 [facility] Comment on above: Performed By: #### C BC #### [facility] [address] [place] [address] Dr. Jerald Poon Hemoglobin (Bld) [Mass/Vol] 13.0 g/dL Normal 12.0-16.0 [facility] Comment on above: Performed By: #### C BC #### [facility] [address] [place] [address] Dr. Jerald Poon IG # 0.04 10e3/ul Critically high 0.00-0.03 [facility] Comment on above: Performed By: #### C BC #### [facility] [address] [place] [address] Dr. Jerald Poon IG % 0.3 % Normal 0.0-0.5 [facility] Comment on above: Performed By: #### C BC #### [facility] [address] [place] [address] Dr. Jerald Poon LYMPH # 3.0 103/ul Normal 1.2-3.8 [facility] Comment on above: Performed By: #### C BC #### [facility] [address] [place] [address] Dr. Jerald Poon Lymphocytes/100 WBC (Bld) 26.2 % Normal 20.5-60.0 [facility] Comment on above: Performed By: #### C BC #### [facility] [address] [place] [address] Dr. Jerald Poon MANUAL DIFF REQ NO Normal [facility] Comment on above: Performed By: #### C BC #### [facility] [address] [place] [address] Dr. Jerald Poon MCH (RBC) [Entitic mass] 27.1 pg Normal 26.7-34.0 [facility] Comment on above: Performed By: #### C BC #### [facility] [address] [address] [address] Jerald Poon MCHC (RBC) [Mass/Vol] 35.4 g/dL Critically high 29.9-35.2 [facility] Comment on above: Performed By: #### C BC #### [facility] [address] [address] [address] Jerald Poon MCV (RBC) [Entitic vol] 76.6 fL Critically low 81.0-99.0 [facility] Comment on above: Performed By: #### C BC #### [facility] [address] [place] [address] Dr. Jerald Poon MONO # 0.8 103/ul Normal 0.3-0.8 [facility] Comment on above: Performed By: #### C BC #### [facility] [address] [place] [address] Dr. Jerald Poon Monocytes/100 WBC (Bld) 7.0 % Normal 1.7-12.0 [facility] Comment on above: Performed By: #### C BC #### [facility] [address] [place] [address] Dr. Jerald Poon NEUT # 7.5 103/ul Critically high 1.4-6.5 [facility] Comment on above: Performed By: #### C BC #### [facility] [address] [place] [address] Dr. Jerald Poon Neutrophils/100 WBC (Bld) 65.1 % Normal 43.0-75.0 [facility] Comment on above: Performed By: #### C BC #### [facility] [address] [address] [address] Jerald Poon Platelet mean volume (Bld) [Entitic vol] 10.0 fL Normal 9.5-13.5 [facility] Comment on above: Performed By: #### C BC #### [facility] [address] [place] [address] Dr. Jerald Poon PLT 387 103/ul Normal 150-450 [facility] Comment on above: Performed By: #### C BC #### [facility] [address] [place] [address] Dr. Jerald Poon RBC 4.79 106/ul Normal 4.20-5.40 [facility] Comment on above: Performed By: #### C BC #### [facility] [address] [place] [address] Dr. Jerald Poon WBC 11.6 103/ul Critically high 4.0-11.0 [facility] Comment on above: Performed By: #### C BC #### [facility] [address] [place] [address] Dr. Jerald Poon CULTURE URINEon 06-28-2022 CULTURE URINE Culture Observations: LIGHT GROWTH OF MIXED GENITAL ZACARIAS. NO POTENTIAL PATHOGENS SEEN. Normal [facility] Comment on above: Performed By: #### U RCX #### [facility] [address] [place] [address] Dr. Jerald Poon ER URINE PROFILEon 3 Bilirubin Ql (U) Negative Normal NEGATIVE [facility] Comment on above: Performed By: #### U MICRO, ERUR #### [facility] [address] [place] [address] Dr. Jerald Poon Clarity (U) CLEAR Normal CLEAR [facility] Comment on above: Performed By: #### U MICRO, ERUR #### [facility] [address] [place] [address] Dr. Jerald Poon Color (U) YELLOW Normal YELLOW [facility] Comment on above: Performed By: #### U MICRO, ERUR #### [facility] [address] [place] [address] Dr. Jerald CEBALLOS A micrscopic examination will be performed if indicated. Normal [facility] Comment on above: Performed By: #### U MICRO, ERUR #### [facility] [address] [place] [address] Dr. Jerald Poon Glucose Ql (U) Negative Normal NEGATIVE [facility] Comment on above: Performed By: #### U MICRO, ERUR #### [facility] [address] [address] [address] Jerald Poon Hemoglobin Ql (U) Negative Normal NEGATIVE [facility] Comment on above: Performed By: #### U MICRO, ERUR #### [facility] [address] [address] [address] Jerald Poon Ketones Ql (U) 40 mg/dl Abnormal NEGATIVE [facility] Comment on above: Performed By: #### U MICRO, ERUR #### [facility] [address] [address] [address] Jerald Poon LEUKOCYTES TRACE Abnormal NEGATIVE [facility] Comment on above: Performed By: #### U MICRO, ERUR #### [facility] [address] [place] [address] Dr. Jerald Poon Nitrite Ql (U) Negative Normal NEGATIVE [facility] Comment on above: Performed By: #### U MICRO, ERUR #### [facility] [address] [place] [address] Dr. Jerald Poon pH (U) 6.0 [pH] Normal 5-9 [facility] Comment on above: Performed By: #### U MICRO, ERUR #### [facility] [address] [place] [address] Dr. Jerald Poon SPEC GRAVITY >=1.030 Abnormal 1.005-<=1.02 5 [facility] Comment on above: Performed By: #### U MICRO, ERUR #### [facility] [address] [place] [address] Dr. Jerald Poon UA PROTEIN Negative Normal NEGATIVE/ TRACE [facility] Comment on above: Performed By: #### U MICRO, ERUR #### [facility] [address] [place] [address] Dr. Jerald Poon UR MICRO IND INDICATED Normal [facility] Comment on above: Performed By: #### U MICRO, ERUR #### [facility] [address] [place] [address] Dr. Jerald Poon Urobilinogen Qn (U) 0.2 {Lyly'U}/dL Normal 0.2 - 1. 0 [facility] Comment on above: Performed By: #### U MICRO, ERUR #### [facility] [address] [place] [address] Dr. Jerald Poon PREG QUANT HCGon 06-28-2022 HCG QUANT <1 Normal [facility] Comment on above: Performed By: #### P REGQNT #### [facility] [address] [place] [address] Dr. Jerald Poon HCG RANGE SEE BELOW Normal [facility] Comment on above: Result Comment: 5-50 0.2-1 WEEK 50-500 1-2 WEEKS 100-5,000 2-3 WEEKS 500-10,000 3-4 WEEKS 1,000-50,000 4-5 WEEKS 10,000-100,000 5-6 WEEKS 15,000-200,000 6-8 WEEKS 10,000-100,000 2-3 MONTHS Performed By: #### P REGQNT #### [facility] [address] [place] [address] Dr. Jerald Poon PROF CHEM 8 (BAS METB)on Anion gap [Moles/Vol] 14.0 mmol/L Normal [facility] Comment on above: Performed By: #### C BC #### [facility] [address] [place] [address] Dr. Jerald Poon Calcium [Mass/Vol] 9.6 mg/dL Normal 8.5-10.1 [facility] Comment on above: Performed By: #### C BC #### [facility] [address] [place] [address] Dr. Jerald Poon Chloride [Moles/Vol] 101 mmol/L Normal 98-107 [facility] Comment on above: Performed By: #### C BC #### [facility] [address] [place] [address] Dr. Jerald Poon CO2 [Moles/Vol] 25.4 mmol/L Normal 21.0-32.0 [facility] Comment on above: Performed By: #### C BC #### [facility] [address] [place] [address] Dr. Jerald Poon Creatinine [Mass/Vol] 0.92 mg/dL Normal 0.55-1.02 [facility] Comment on above: Performed By: #### C BC #### [facility] [address] [place] [address] Dr. Jerald Poon EGFR-AF BELGIAN >60 Normal >=60 [facility] Comment on above: Performed By: #### C BC #### [facility] [address] [address] [address] Jerald Poon EGFR-NON AF BELGIAN >60 Normal >=60 [facility] Comment on above: Performed By: #### C BC #### [facility] [address] [place] [address] Dr. Jerald Poon Glucose [Mass/Vol] 101 mg/dL Normal 74-106 [facility] Comment on above: Performed By: #### C BC #### [facility] [address] [place] [address] Dr. Jerald Poon Potassium [Moles/Vol] 3.4 mmol/L Critically low 3.5-5.1 [facility] Comment on above: Performed By: #### C BC #### [facility] [address] [place] [address] Dr. Jerald Poon Sodium [Moles/Vol] 137 mmol/L Normal 136-145 [facility] Comment on above: Performed By: #### C BC #### [facility] [address] [place] [address] Dr. Jerald Poon Urea nitrogen [Mass/Vol] 11.0 mg/dL Normal 7.0-18.0 [facility] Comment on above: Performed By: #### C BC #### [facility] [address] [place] [address] Dr. Jerald Poon Urea nitrogen/Creatinine [Mass ratio] 12.0 mg/mg Normal [facility] Comment on above: Performed By: #### C BC #### [facility] [address] [place] [address] Dr. Jerald Poon TSHon 01-27-2023 TSH 1.319 uIU/mL Normal 0.358-3.740 [facility] Comment on above: Performed By: #### C BC #### [facility] [address] [place] [address] Dr. Jerald Poon URINE MICROSCOPIC ONLYon BACTERIA SMALL Abnormal NONE SEEN [facility] Comment on above: Performed By: #### U MICRO, ERUR #### [facility] [address] [place] [address] Dr. Jerald Poon Bacteria identified Cx Nom (U) INDICATED Normal [facility] Comment on above: Performed By: #### U MICRO, ERUR #### [facility] [address] [place] [address] Dr. Jerald Poon CAST NONE SEEN Normal NONE SEEN [facility] Comment on above: Performed By: #### U MICRO, ERUR #### [facility] [address] [place] [address] Dr. Jerald Poon Crystals LM Nom (Urine sed) NONE SEEN Normal NONE SEEN [facility] Comment on above: Performed By: #### U MICRO, ERUR #### [facility] [address] [place] [address] Dr. Jerald Poon Epithelial cells LM Ql (Urine sed) FEW Abnormal NONE SEEN /RARE [facility] Comment on above: Performed By: #### U MICRO, ERUR #### [facility] [address] [place] [address] Dr. Jerald Poon MUCOUS NONE SEEN Normal NONE SEEN [facility] Comment on above: Performed By: #### U MICRO, ERUR #### [facility] [address] [place] [address] Dr. Jerald Poon RBC NONE SEEN Abnormal 0-2 [facility] Comment on above: Performed By: #### U MICRO, ERUR #### [facility] [address] [place] [address] Dr. Jerald Poon WBC 2-5 Abnormal NONE SEEN [facility] Comment on above: Performed By: #### U MICRO, ERUR #### [facility] [address] [place] [address] Dr. Jerald Poon CBC AUTO DIFFon 04-01-2022 BASO # 0.0 103/ul Normal 0.0-0.1 [facility] Comment on above: Performed By: #### C BC #### [facility] [address] [place] [address] Dr. Jerald Poon Basophils/100 WBC (Bld) 0.5 % Normal 0.2-2.0 [facility] Comment on above: Performed By: #### C BC #### [facility] [address] [place] [address] Dr. Jerald Poon EO # 0.1 103/ul Normal 0.0-0.7 [facility] Comment on above: Performed By: #### C BC #### [facility] [address] [place] [address] Dr. Jerald Poon Eosinophils/100 WBC (Bld) 1.7 % Normal 0.9-7.0 [facility] Comment on above: Performed By: #### C BC #### [facility] [address] [place] [address] Dr. Jerald Poon Erythrocyte distribution width (RBC) [Ratio] 14.2 % Normal 11.0-15.0 [facility] Comment on above: Performed By: #### C BC #### [facility] [address] [place] [address] Dr. Jerald Poon Hematocrit (Bld) [Volume fraction] 36.7 % Normal 36.0-48.0 [facility] Comment on above: Performed By: #### C BC #### [facility] [address] [place] [address] Dr. Jerald Poon Hemoglobin (Bld) [Mass/Vol] 12.1 g/dL Normal 12.0-16.0 [facility] Comment on above: Performed By: #### C BC #### [facility] [address] [place] [address] Dr. Jerald Poon IG # 0.01 10e3/ul Normal 0.00-0.03 [facility] Comment on above: Performed By: #### C BC #### [facility] [address] [place] [address] Dr. Jerald Poon IG % 0.1 % Normal 0.0-0.5 [facility] Comment on above: Performed By: #### C BC #### [facility] [address] [place] [address] Dr. Jerald Poon LYMPH # 2.3 103/ul Normal 1.2-3.8 [facility] Comment on above: Performed By: #### C BC #### [facility] [address] [place] [address] Dr. Jerald Poon Lymphocytes/100 WBC (Bld) 30.8 % Normal 20.5-60.0 [facility] Comment on above: Performed By: #### C BC #### [facility] [address] [place] [address] Dr. Jerald Poon MANUAL DIFF REQ NO Normal [facility] Comment on above: Performed By: #### C BC #### [facility] [address] [place] [address] Dr. Jerald Poon MCH (RBC) [Entitic mass] 27.3 pg Normal 26.7-34.0 [facility] Comment on above: Performed By: #### C BC #### [facility] [address] [place] [address] Dr. Jerald Poon MCHC (RBC) [Mass/Vol] 33.0 g/dL Normal 29.9-35.2 [facility] Comment on above: Performed By: #### C BC #### [facility] [address] [place] [address] Dr. Jerald Poon MCV (RBC) [Entitic vol] 82.7 fL Normal 81.0-99.0 [facility] Comment on above: Performed By: #### C BC #### [facility] [address] [place] [address] Dr. Jerald Poon MONO # 0.8 103/ul Normal 0.3-0.8 [facility] Comment on above: Performed By: #### C BC #### [facility] [address] [place] [address] Dr. Jerald Poon Monocytes/100 WBC (Bld) 10.6 % Normal 1.7-12.0 [facility] Comment on above: Performed By: #### C BC #### [facility] [address] [place] [address] Dr. Jerald Poon NEUT # 4.2 103/ul Normal 1.4-6.5 [facility] Comment on above: Performed By: #### C BC #### [facility] [address] [place] [address] Dr. Jerald Poon Neutrophils/100 WBC (Bld) 56.3 % Normal 43.0-75.0 [facility] Comment on above: Performed By: #### C BC #### [facility] [address] [place] [address] Dr. Jerald Poon Platelet mean volume (Bld) [Entitic vol] 10.2 fL Normal 9.5-13.5 [facility] Comment on above: Performed By: #### C BC #### [facility] [address] [place] [address] Dr. Jerald Poon PLT 375 103/ul Normal 150-450 [facility] Comment on above: Performed By: #### C BC #### [facility] [address] [place] [address] Dr. Jerald Poon RBC 4.44 106/ul Normal 4.20-5.40 [facility] Comment on above: Performed By: #### C BC #### [facility] [address] [place] [address] Dr. Jerald Poon WBC 7.5 103/ul Normal 4.0-11.0 [facility] Comment on above: Performed By: #### C BC #### [facility] [address] [place] [address] Dr. Jerald Poon ER URINE PROFILEon 2 Bilirubin Ql (U) Negative Normal NEGATIVE [facility] Comment on above: Performed By: #### C BC #### [facility] [address] [place] [address] Dr. Jerald Poon Clarity (U) CLEAR Normal CLEAR [facility] Comment on above: Performed By: #### C BC #### [facility] [address] [place] [address] Dr. Jerald Poon Color (U) YELLOW Normal YELLOW [facility] Comment on above: Performed By: #### C BC #### [facility] [address] [place] [address] Dr. Jerald CEBALOLS A micrscopic examination will be performed if indicated. Normal [facility] Comment on above: Performed By: #### C BC #### [facility] [address] [place] [address] Dr. Jerald Poon Glucose Ql (U) Negative Normal NEGATIVE [facility] Comment on above: Performed By: #### C BC #### [facility] [address] [place] [address] Dr. Jerald Poon Hemoglobin Ql (U) Negative Normal NEGATIVE [facility] Comment on above: Performed By: #### C BC #### [facility] [address] [place] [address] Dr. Jerald Poon Ketones Ql (U) Negative Normal NEGATIVE [facility] Comment on above: Performed By: #### C BC #### [facility] [address] [place] [address] Dr. Jerald Poon LEUKOCYTES Negative Normal NEGATIVE [facility] Comment on above: Performed By: #### C BC #### [facility] [address] [place] [address] Dr. Jerald Poon Nitrite Ql (U) Negative Normal NEGATIVE [facility] Comment on above: Performed By: #### C BC #### [facility] [address] [place] [address] Dr. Jerald Poon pH (U) 7.0 [pH] Normal 5-9 [facility] Comment on above: Performed By: #### C BC #### [facility] [address] [place] [address] Dr. Jerald Poon SPEC GRAVITY 1.025 Normal 1.005-<=1.02 5 [facility] Comment on above: Performed By: #### C BC #### [facility] [address] [place] [address] Dr. Jerald Poon UA PROTEIN Negative Normal NEGATIVE/ TRACE [facility] Comment on above: Performed By: #### C BC #### [facility] [address] [place] [address] Dr. Jerald Poon UR MICRO IND NOT INDICATED Normal [facility] Comment on above: Performed By: #### C BC #### [facility] [address] [place] [address] Dr. Jerald Poon Urobilinogen Qn (U) 1.0 {Lyly'U}/dL Normal 0.2 - 1. 0 [facility] Comment on above: Performed By: #### C BC #### [facility] [address] [place] [address] Dr. Jerald Poon PREG QUANT HCGon 04-01-2022 HCG QUANT 1 mIU/mL Normal [facility] Comment on above: Performed By: #### P REGQNT #### [facility] [address] [place] [address] Dr. Jerald Poon HCG RANGE SEE BELOW Normal [facility] Comment on above: Result Comment: 5-50 0.2-1 WEEK 50-500 1-2 WEEKS 100-5,000 2-3 WEEKS 500-10,000 3-4 WEEKS 1,000-50,000 4-5 WEEKS 10,000-100,000 5-6 WEEKS 15,000-200,000 6-8 WEEKS 10,000-100,000 2-3 MONTHS Performed By: #### P REGQNT #### [facility] [address] [place] [address] Dr. Jerald Poon PROF 14(COMP METB)on 022 Albumin [Mass/Vol] 3.6 g/dL Normal 3.4-5.0 [facility] Comment on above: Performed By: #### C MP #### [facility] [address] [place] [address] Dr. Jerald Poon Albumin/Globulin [Mass ratio] 0.8 {ratio} Normal [facility] Comment on above: Performed By: #### C MP #### [facility] [address] [place] [address] Dr. Jerald Poon ALP [Catalytic activity/Vol] 65 U/L Normal 46-116 [facility] Comment on above: Performed By: #### C MP #### [facility] [address] [place] [address] Dr. Jerald Poon ALT [Catalytic activity/Vol] 22 U/L Normal 14-59 [facility] Comment on above: Performed By: #### C MP #### [facility] [address] [address] [address] Jerald Poon Anion gap [Moles/Vol] 10.3 mmol/L Normal Th e [facility] Comment on above: Performed By: #### C MP #### [facility] [address] [place] [address] Dr. Jerald Poon AST [Catalytic activity/Vol] 14 U/L Critically low 15-37 [facility] Comment on above: Performed By: #### C MP #### [facility] [address] [place] [address] Dr. Jerald Poon Bilirubin [Mass/Vol] 0.1 mg/dL Critically low 0.2-1.0 [facility] Comment on above: Performed By: #### C MP #### [facility] [address] [place] [address] Dr. Jerald Poon Calcium [Mass/Vol] 8.6 mg/dL Normal 8.5-10.1 [facility] Comment on above: Performed By: #### C MP #### [facility] [address] [place] [address] Dr. Jerald Poon Chloride [Moles/Vol] 104 mmol/L Normal 98-107 [facility] Comment on above: Performed By: #### C MP #### [facility] [address] [address] [address] Jerald Poon CO2 [Moles/Vol] 28.1 mmol/L Normal 21.0-32.0 [facility] Comment on above: Performed By: #### C MP #### [facility] [address] [address] [address] Jerald Poon Creatinine [Mass/Vol] 0.99 mg/dL Normal 0.55-1.02 [facility] Comment on above: Performed By: #### C MP #### [facility] [address] [address] [address] Jerald Poon EGFR-AF BELGIAN >60 Normal >=60 [facility] Comment on above: Performed By: #### C MP #### [facility] [address] [address] [address] Jerald Poon EGFR-NON AF BELGIAN >60 Normal >=60 [facility] Comment on above: Performed By: #### C MP #### [facility] [address] [address] [address] Jerald Poon Globulin (S) [Mass/Vol] 4.5 g/dL Normal [facility] Comment on above: Performed By: #### C MP #### [facility] [address] [place] [address] Dr. Jerald Poon Glucose [Mass/Vol] 94 mg/dL Normal 74-106 [facility] Comment on above: Performed By: #### C MP #### [facility] [address] [address] [address] Jerald Poon Potassium [Moles/Vol] 3.4 mmol/L Critically low 3.5-5.1 [facility] Comment on above: Performed By: #### C MP #### [facility] [address] [place] [address] Dr. Jerald Poon Protein [Mass/Vol] 8.1 g/dL Normal 6.4-8.2 [facility] Comment on above: Performed By: #### C MP #### [facility] [address] [address] [address] Jerald Poon Sodium [Moles/Vol] 139 mmol/L Normal 136-145 [facility] Comment on above: Performed By: #### C MP #### [facility] [address] [address] [address] Jerald Poon Urea nitrogen [Mass/Vol] 8.0 mg/dL Normal 7.0-18.0 [facility] Comment on above: Performed By: #### C MP #### [facility] [address] [place], [place] [address] Dr. Jerald Poon Urea nitrogen/Creatinine [Mass ratio] 8.1 mg/mg Normal [facility] Comment on above: Performed By: #### C MP #### [facility] [address] [place], [place] [address] Dr. Jerald Poon US PELVIS TRANSVAGon 022 [...] LUH MANRIQUE Date: 2022-04-01 21:55 Normal [facility] Automated erythrocytes count in urine sediment (number/area)Ordered By: Anders Sesay on 10-19-2021 RBC Auto (Urine sed) [#/Area] 1-2 [HPF] [facility] Automated leukocytes count i n urine sediment (number/area)Ordered By: Anders Sesay on 10-19-2021 WBC Auto (Urine sed) [#/Area] 3-4 [HPF] [facility] Basophils Auto (Bld) [#/Vol] Ordered By: Anders Sesay on 10-19-2021 Basophils (Bld) [#/Vol] 0.1 10*3/uL 0.0-0.2 [facility] Basophils/100 WBC Auto (Bld) Ordered By: Anders Sesay on 10-19-2021 Basophils/100 WBC (Bld) 0.6 % [facility] Bilirubin Test strip Ql (U)O rdered By: Anders Sesay on 10-19-2021 Bilirubin Ql (U) Negative Negative [facility] Blood hemoglobin measurement (mass/volume)Ordered By: Anders Sesay on 10-19-2021 Hemoglobin (Bld) [Mass/Vol] 13.2 g/dL 11.8-15.4 [facility] Blood leukocytes automated c ount (number/volume)Ordered By: Anders Sesay on 10-19-2021 WBC (Bld) [#/Vol] 9.1 10*3/uL 4.5-11.0 [facility] Body fluid albumin measureme nt (mass/volume)Ordered By: Anders Sesay on 10-19-2021 Albumin (Body fld) [Mass/Vol] 3.8 g/dL 3.2-5.5 [facility] Color Auto (U)Ordered By: Jason Sesay on 10-19-2021 Color (U) Yellow Yellow [facility] Creatinine and Glomerular fi ltration rate.predicted panel (S/P/Bld)Ordered By: Anders Sesay on 10-19-2021 Creatinine [Mass/Vol] 0.87 mg/dL 0.44-1.03 [facility] Eosinophils Auto (Bld) [#/Vo l]Ordered By: Anders Sesay on 10-19-2021 Eosinophils (Bld) [#/Vol] 0.1 10*3/uL 0.0-0.45 [facility] Eosinophils/100 WBC Auto (Bl d)Ordered By: Anders Sesay on 10-19-2021 Eosinophils/100 WBC (Bld) 0.9 % [facility] Erythrocyte distribution wid th Auto (RBC) [Ratio]Ordered By: Anders Sesay on 10-19-2021 Erythrocyte distribution width (RBC) [Ratio] 16.4 % 11.9-15.3 [facility] Estimated glomerular filtrat ion rate (GFR) non- AmericanOrdered By: Anders Sesay on 10-19-2021 GFR/1.73 sq M.predicted among non-blacks MDRD (S/P/Bld) [Vol rate/Area] > 60 mL/Min [facility] Globulin Calc (S) [Mass/Vol] Ordered By: Anders Sesay on 10-19-2021 Globulin (S) [Mass/Vol] 4.3 g/dL [facility] HCG ( test) IA.rapi d Ql (U)Ordered By: Anders Sesay on 10-19-2021 HCG ( test) Ql (U) Negative [facility] Hematocrit Auto (Bld) [Volum e fraction]Ordered By: Anders Sesay on 10-19-2021 Hematocrit (Bld) [Volume fraction] 40.2 % 34.0-46.4 [facility] Ketones Auto test strip (U) [Mass/Vol]Ordered By: Anders Sesay on 10-19-2021 Ketones (U) [Mass/Vol] Negative Negative [facility] - Hematology and Cell countsOrdered By: Anders Sesay on 10-19-2021 Nucleated RBC/100 WBC (Bld) [Ratio] 0.2 % 0-0.5 [facility] - UrinalysisOrder ed By: Anders Sesay on 10-19-2021 Hyaline casts LM Ql (Urine sed) 0-8 [LPF] [facility] Lymphocytes Auto (Bld) [#/Vo l]Ordered By: Anders Sesay on 10-19-2021 Lymphocytes (Bld) [#/Vol] 2.4 10*3/uL 1.00-4.8 [facility] Lymphocytes/100 WBC Auto (Bl d)Ordered By: Anders Sesay on 10-19-2021 Lymphocytes/100 WBC (Bld) 26.7 % [facility] MCH Auto (RBC) [Entitic mass ]Ordered By: Anders Sesay on 10-19-2021 MCH (RBC) [Entitic mass] 26.3 pg 24.7-34.3 [facility] MCHC Auto (RBC) [Mass/Vol]Or dered By: Anders Sesay on 10-19-2021 MCHC (RBC) [Mass/Vol] 32.9 g/dL 32.0-35.0 [facility] MCV Auto (RBC) [Entitic vol] Ordered By: Anders Sesay on 10-19-2021 MCV (RBC) [Entitic vol] 80.1 fL 80-100 [facility] Monocytes Auto (Bld) [#/Vol] Ordered By: Anders Sesay on 10-19-2021 Monocytes (Bld) [#/Vol] 0.7 10*3/uL 0.0-0.8 [facility] Monocytes/100 WBC Auto (Bld) Ordered By: Anders Sesay on 10-19-2021 Monocytes/100 WBC (Bld) 7.6 % [facility] Neutrophils Auto (Bld) [#/Vo l]Ordered By: Anders Sesay on 10-19-2021 Neutrophils (Bld) [#/Vol] 5.8 10*3/uL 1.8-7.7 [facility] Neutrophils/100 WBC Auto (Bl d)Ordered By: Anders Sesay on 10-19-2021 Neutrophils/100 WBC (Bld) 64.2 % [facility] Nitrite Test strip Ql (U)Ord ered By: Anders Sesay on 10-19-2021 Nitrite Ql (U) Negative Negative [facility] No Panel InformationOrdered By: Anders Sesay on 10-19-2021 Estimated GFR () > 60 mL/Min [facility] Comment on above: GFR estimated refere nce range: According to KDOQI guidelines, <60 ml/min/1.73m2 is sufficient to diagnose a patient with chronic kidney disease. Pharmacy Creatinine Clearance (Chem 147.41 [facility] Platelet mean volume Auto (B ld) [Entitic vol]Ordered By: Anders Sesay on 10-19-2021 Platelet mean volume (Bld) [Entitic vol] 8.6 fL 6.3-10.7 [facility] Platelets Auto (Bld) [#/Vol] Ordered By: Anders Sesay on 10-19-2021 Platelets (Bld) [#/Vol] 395 10*3/uL 150-450 [facility] Protein Auto test strip (U) [Mass/Vol]Ordered By: Anders Sesay on 10-19-2021 Protein (U) [Mass/Vol] Negative Negative [facility] Protein [Mass/volume] in Ser um or PlasmaOrdered By: Anders Sesay on 10-19-2021 Protein [Mass/Vol] 8.1 g/dL 6.1-7.9 [facility] RBC Auto (Bld) [#/Vol]Ordere d By: Anders Sesay on 10-19-2021 RBC (Bld) [#/Vol] 5.02 10*6/uL 3.60-5.00 [facility] Serum or plasma alanine ayoub otransferase measurement without P-5'-P (enzymatic activiOrdered By: Anders Sesay on 10-19-2021 ALT No additional P-5'-P [Catalytic activity/Vol] 20 U/L 10-60 [facility] Serum or plasma albumin/glob ulin mass ratioOrdered By: Anders Sesay on 10-19-2021 Albumin/Globulin [Mass ratio] 0.9 {ratio} [facility] Serum or plasma alkaline cosmo sphatase measurement (enzymatic activity/volume)Ordered By: Anders Sesay on 10-19-2021 ALP [Catalytic activity/Vol] 55 U/L 32-92 [facility] Serum or plasma aspartate am inotransferase measurement (enzymatic activity/volume)Ordered By: Anders Sesay on 10-19-2021 AST [Catalytic activity/Vol] 17 U/L 10-42 [facility] Serum or plasma calcium joann urement (mass/volume)Ordered By: Anders Sesay on 10-19-2021 Calcium [Mass/Vol] 9.1 mg/dL 8.2-10.2 [facility] Serum or plasma chloride adan surement (moles/volume)Ordered By: Anders Sesay on 10-19-2021 Chloride [Moles/Vol] 103 mmol/L 95-114 [facility] Serum or plasma glucose joann urement (mass/volume)Ordered By: Anders Sesay on 10-19-2021 Glucose [Mass/Vol] 105 mg/dL 70-100 [facility] Comment on above: ADA recommended refe rence range Random Glucose Reference Range is dependent on time and content of last meal. Glucose of more than 200 mg/dL in a nonstressed, ambulatory subject supports the diagnosis of Diabetes Mellitus. Serum or plasma potassium me asurement (moles/volume)Ordered By: Anders Sesay on 10-19-2021 Potassium [Moles/Vol] 3.7 mmol/L 3.5-5.1 [facility] Serum or plasma sodium measu rement (moles/volume)Ordered By: Anders Sesay on 10-19-2021 Sodium [Moles/Vol] 137 mmol/L 136-146 [facility] Serum or plasma total biliru bin measurement (mass/volume)Ordered By: Anders Sesay on 10-19-2021 Bilirubin [Mass/Vol] 0.3 mg/dL 0.3-1.2 [facility] Serum or plasma total carbon dioxide measurement (moles/volume)Ordered By: Anders Sesay on 10-19-2021 CO2 [Moles/Vol] 24.2 mmol/L 22.0-30.0 [facility] Serum or plasma urea nitroge n measurement (mass/volume)Ordered By: Anders Sesay on 10-19-2021 Urea nitrogen [Mass/Vol] 7 mg/dL 9-23 [facility] Specific gravity Auto test s trip (U) [Rel density]Ordered By: Anders Sesay on 10-19-2021 Specific gravity (U) [Rel density] 1.014 1.001-1.030 [facility] Squamous epithelial cells de tection in urine sediment by light microscopyOrdered By: Anders Sesay on 10-19-2021 Epithelial cells.squamous LM Ql (Urine sed) 3-4 [HPF] [facility] Urine bacteria detection by automated methodOrdered By: Anders Sesay on 10-19-2021 Bacteria Auto Ql (U) 1+ None Seen [facility] Urine clarity by refractomet ry automatedOrdered By: Anders Sesay on 10-19-2021 Clarity Refractometry automated (U) Clear Clear [facility] Urine glucose measurement by automated test strip (mass/volume)Ordered By: Anders Sesay on 10-19-2021 Glucose Auto test strip (U) [Mass/Vol] Normal mg/dL Normal [facility] Urine hemoglobin detection b y automated test stripOrdered By: Anders Sesay on 10-19-2021 Hemoglobin Auto test strip Ql (U) Negative Negative [facility] Urine leukocyte esterase det ection by automated test stripOrdered By: Anders Sesay on 10-19-2021 Leukocyte esterase Auto test strip Ql (U) 1+ Negative [facility] Urobilinogen Auto test strip (U) [Mass/Vol]Ordered By: Anders Sesay on 10-19-2021 Urobilinogen (U) [Mass/Vol] Normal mg/dL Normal [facility] pH Auto test strip (U)Ordere d By: Anders Sesay on 10-19-2021 pH (U) 5.5 [pH] 5.0-9.0 [facility] US DUP ABD PEL RETRO SCROT [...] MD 07/14/20 Edited Result - FINAL Normal [facility] US NON OB TRANSVAGINALon US NON [...] MD 07/14/20 Edited Result - FINAL Normal [facility] Chlamydia/GC,DNA Ampon 07-10 Chlamydia Probe Negative Normal NEG [facility] Comment on above: Result Comment: CHLA [...] Performed By: #### U HCG, UAMIC #### [id number] [address] [place], [place] [id number] Retail Shift Leader: Campos Avilez MD Gonorrhea Probe Negative Normal NEG [facility] Comment on above: Result Comment: NEIS [...] Performed By: #### U HCG, UAMIC #### [facility] [address] [place], [place] [id number] Retail Shift Leader: Campos Avilez MD Cult,Urineon 07-09-2020 Cult,Urine Specimen Description .CLEAN CATCH URINE Special Requests NOT REPORTED Culture ESCHERICHIA COLI >[id number] CFU/ML Report Status FINAL 07/09/2020 SUSCEPTIBILITY Organism [...] <=20 SUSCEPTIBLE Piperacillin/Tazobac her <=[address] [facility] Comment on above: Performed By: #### U HCG, UAMIC #### [place] [address] Retail Shift Leader: Campos Avilez MD ABO/Rh(D)on 07-08-2020 ABO/Rh(D) Positive Normal [facility] Comment on above: Performed By: #### A [facility] #### [place] [address] Retail Shift Leader: Campos Avilez MD CBC with Diffon 07-08-2020 Abs. Basophil 0.04 k/uL Normal 0.00-0.20 [facility] Comment on above: Performed By: #### C P, CDP, COSMO, BHCG, MG, VD25, LIP #### [place] [address] Retail Shift Leader: Campos Avilez MD Abs.Imm.Granulocyte 0.04 k/uL Normal 0.00-0.30 [facility] Comment on above: Performed By: #### C P, CDP, COSMO, BHCG, MG, VD25, LIP #### [facility] [address] [place] [address] Retail Shift Leader: Campos Avilez MD Abs.Neutrophil (Seg) 8.16 k/uL High 1.80-8.00 [facility] Comment on above: Performed By: #### C P, CDP, COSMO, BHCG, MG, VD25, LIP #### [address] [address] Retail Shift Leader: Campos Avilez MD Basophils/100 WBC (Bld) 0 % Normal 0-2 [facility] Comment on above: Performed By: #### C P, CDP, COSMO, BHCG, MG, VD25, LIP #### [address] [address] Retail Shift Leader: Campos Avilez MD Eosinophils (Bld) [#/Vol] 0.10 10*3/uL Normal 0.00-0.44 [facility] Comment on above: Performed By: #### C P, CDP, COSMO, BHCG, MG, VD25, LIP #### [address] [address] Retail Shift Leader: Campos Avilez MD Eosinophils/100 WBC (Bld) 1 % Normal 1-4 [facility] Comment on above: Performed By: #### C P, CDP, COSMO, BHCG, MG, VD25, LIP #### [address] [address] Retail Shift Leader: Campos Avilez MD Erythrocyte distribution width (RBC) [Ratio] 14.0 % Normal 11.8-14.4 [facility] Comment on above: Performed By: #### C P, CDP, COSMO, BHCG, MG, VD25, LIP #### [address] [address] Retail Shift Leader: Campos Avilez MD Hematocrit (Bld) [Volume fraction] 34.3 % Low 36.3-47.1 [facility] Comment on above: Performed By: #### C P, CDP, COSMO, BHCG, MG, VD25, LIP #### [address] [address] Retail Shift Leader: Campos Avilez MD Hemoglobin (Bld) [Mass/Vol] 11.1 g/dL Low 11.9-15.1 [facility] Comment on above: Performed By: #### C P, CDP, COSMO, BHCG, MG, VD25, LIP #### [address] [address] Retail Shift Leader: Campos Avilez MD Immature granulocytes (Bld) [#/Vol] 0 % Normal 0 [facility] Comment on above: Performed By: #### C P, CDP, COSMO, BHCG, MG, VD25, LIP #### [place] [address] Retail Shift Leader: Campos Avilez MD Lymphocytes (Bld) [#/Vol] 1.77 10*3/uL Normal 1.20-5.20 [facility] Comment on above: Performed By: #### C P, CDP, COSMO, BHCG, MG, VD25, LIP #### [place] [address] Retail Shift Leader: Campos Avilez MD Lymphocytes/100 WBC (Bld) 16 % Low 25-45 [facility] Comment on above: Performed By: #### C P, CDP, COSMO, BHCG, MG, VD25, LIP #### [place] [address] Retail Shift Leader: Campos Avilez MD MCH (RBC) [Entitic mass] 26.6 pg Normal 25.0-35.0 [facility] Comment on above: Performed By: #### C P, CDP, COSMO, BHCG, MG, VD25, LIP #### [address] [address] Retail Shift Leader: Campos Avilez MD MCHC (RBC) [Mass/Vol] 32.4 g/dL Normal 28.4-34.8 [facility] Comment on above: Performed By: #### C P, CDP, COSMO, BHCG, MG, VD25, LIP #### [address] [address] Retail Shift Leader: Campos Avilez MD MCV (RBC) [Entitic vol] 82.3 fL Normal 78.0-102.0 [facility] Comment on above: Performed By: #### C P, CDP, COSMO, BHCG, MG, VD25, LIP #### [address] [address] Retail Shift Leader: Campos Avilez MD Monocytes (Bld) [#/Vol] 0.73 10*3/uL Normal 0.10-1.40 [facility] Comment on above: Performed By: #### C P, CDP, COSMO, BHCG, MG, VD25, LIP #### [address] [address] Retail Shift Leader: Campos Avilez MD Monocytes/100 WBC (Bld) 7 % Normal 2-8 [facility] Comment on above: Performed By: #### C P, CDP, COSMO, BHCG, MG, VD25, LIP #### [address] [address] Retail Shift Leader: Campos Avilez MD Neutrophil (Seg) 75 % High 34-64 [facility] Comment on above: Performed By: #### C P, CDP, COSMO, BHCG, MG, VD25, LIP #### [address] [address] Retail Shift Leader: Campos Avilez MD NRBC Automated 0.0 per [address] [facility] Comment on above: Performed By: #### C P, CDP, COSMO, BHCG, MG, VD25, LIP #### [address] [address] Retail Shift Leader: Campos Avilez MD Platelet mean volume (Bld) [Entitic vol] 11.8 fL Normal 8.1-13.5 [facility] Comment on above: Performed By: #### C P, CDP, COSMO, BHCG, MG, VD25, LIP #### [address] [address] Retail Shift Leader: Campos Avilez MD Platelets (Bld) [#/Vol] 288 10*3/uL Normal 138-453 [facility] Comment on above: Performed By: #### C P, CDP, COSMO, BHCG, MG, VD25, LIP #### [address] [address] Retail Shift Leader: Campos Avilez MD RBC (Bld) [#/Vol] 4.17 10*6/uL Normal 3.95-5.11 [facility] Comment on above: Performed By: #### C P, CDP, COSMO, BHCG, MG, VD25, LIP #### [address] [address] Retail Shift Leader: Campos Avilez MD WBC (Bld) [#/Vol] 10.8 10*3/uL Normal 4.5-13.5 [facility] Comment on above: Performed By: #### C P, CDP, COSMO, BHCG, MG, VD25, LIP #### [address] [address] Retail Shift Leader: Campos Avilez MD Auto Diff Performed NOT REPORTED Normal [facility] Comment on above: Performed By: #### C P, CDP, COSMO, BHCG, MG, VD25, LIP #### [address] [address] Retail Shift Leader: Campos Avilez MD Platelets (Bld) [#/Vol] NOT REPORTED Normal [facility] Comment on above: Performed By: #### C P, CDP, COSMO, BHCG, MG, VD25, LIP #### [address] [place] [address] Retail Shift Leader: Campos Avilez MD RBC morphology finding Nom (Bld) NOT REPORTED Normal [facility] Comment on above: Performed By: #### C P, CDP, COSMO, BHCG, MG, VD25, LIP #### [facility] [address] [place] [address] Retail Shift Leader: Campos Avilez MD WBC Morphology NOT REPORTED Normal [facility] Comment on above: Performed By: #### C P, CDP, COSMO, BHCG, MG, VD25, LIP #### [address] [address] Retail Shift Leader: Campos Avilez MD Calcium, Ionicon 07-08-2020 Calcium [Mass/Vol] 1.18 mmol/L Normal 1.13-1.33 [facility] Comment on above: Performed By: #### I OCAL #### [address] [address] Retail Shift Leader: Campos Avilez MD Calcium, Ionizedon Calcium [Mass/Vol] 1.18 mmol/L 1.13 - 1. 33 mmol/L [facility], [place] Comp Metabolic Profon 2020 (cont.) Normal [facility] Comment on above: Result Comment: Aver age GFR for <20 years old not available. Chronic Kidney Disease: <60 mL/min/1.73sq m Kidney failure: <15 mL/min/1.73sq m eGFR calculated using average adult body mass. Additional eGFR calculator available at: http://www.[employer].com/multiple_crcl_2012.htm Performed By: #### C P, CDP, COSMO, BHCG, MG, VD25, LIP #### [address] [address] Retail Shift Leader: Campos Avilez MD Albumin [Mass/Vol] 2.3 g/dL Low 3.5-5.2 [facility] Comment on above: Performed By: #### C P, CDP, COSMO, BHCG, MG, VD25, LIP #### [address] [address] Retail Shift Leader: Campos Avilez MD Albumin/Globulin [Mass ratio] 0.9 {ratio} Low 1.0-2.5 [facility] Comment on above: Performed By: #### C P, CDP, COSMO, BHCG, MG, VD25, LIP #### [address] [address] Retail Shift Leader: Campos Avilez MD Alkaline Phos 41 U/L Normal 35-104 [facility] Comment on above: Result Comment: SPEC IMEN MODERATELY HEMOLYZED, RESULTS MAY BE ADVERSELY AFFECTED Performed By: #### C P, CDP, COSMO, BHCG, MG, VD25, LIP #### [address] [address] Retail Shift Leader: Campos Avilez MD ALT [Catalytic activity/Vol] 11 U/L Normal 5-33 [facility] Comment on above: Result Comment: SPEC IMEN MODERATELY HEMOLYZED, RESULTS MAY BE ADVERSELY AFFECTED Performed By: #### C P, CDP, COSMO, BHCG, MG, VD25, LIP #### [address] [address] Retail Shift Leader: Campos Avilez MD Anion gap [Moles/Vol] 9 mmol/L Normal 9-17 [facility] Comment on above: Performed By: #### C P, CDP, COSMO, BHCG, MG, VD25, LIP #### [address] [address] Retail Shift Leader: Campos Avilez MD AST [Catalytic activity/Vol] 28 U/L Normal <32 [facility] Comment on above: Result Comment: SPEC IMEN MODERATELY HEMOLYZED, RESULTS MAY BE ADVERSELY AFFECTED Performed By: #### C P, CDP, COSMO, BHCG, MG, VD25, LIP #### [facility] [address] [place] [address] Retail Shift Leader: Campos Avilez MD Bilirubin Ql (U) <0.10 Low 0.3-1.2 [facility] Comment on above: Performed By: #### C P, CDP, COSMO, BHCG, MG, VD25, LIP #### [facility] [address] [place] [address] Retail Shift Leader: Campos Avilez MD Calcium [Mass/Vol] 5.5 mg/dL Critically low 8.6-10.4 [facility] Comment on above: Performed By: #### C P, CDP, COSMO, BHCG, MG, VD25, LIP #### [facility] [address] [place] [address] Retail Shift Leader: Campos Avilez MD Chloride [Moles/Vol] 118 mmol/L High 98-107 [facility] Comment on above: Performed By: #### C P, CDP, COSMO, BHCG, MG, VD25, LIP #### [facility] [address] [place] [address] Retail Shift Leader: Campos Avilez MD CO2 [Moles/Vol] 14 mmol/L Low 20-31 [facility] Comment on above: Performed By: #### C P, CDP, COSMO, BHCG, MG, VD25, LIP #### [facility] [address] [place] [address] Retail Shift Leader: Campos Avilez MD Creatinine [Mass/Vol] 0.60 mg/dL Normal 0.50-0.90 [facility] Comment on above: Performed By: #### C P, CDP, COSMO, BHCG, MG, VD25, LIP #### [address] [address] Retail Shift Leader: Campos Avilez MD GFR,non Amer Pediatric GFR requires additional information. Refer to NKDEP website for Normal >60 [facility] Comment on above: Result Comment: calc ulator. Performed By: #### C P, CDP, COSMO, BHCG, MG, VD25, LIP #### [address] [address] Retail Shift Leader: Campos Avilez MD Glucose [Mass/Vol] 84 mg/dL Normal 70-99 [facility] Comment on above: Performed By: #### C P, CDP, COSMO, BHCG, MG, VD25, LIP #### [address] [address] Retail Shift Leader: Campos Avilez MD Potassium [Moles/Vol] 5.1 mmol/L Normal 3.7-5.3 [facility] Comment on above: Result Comment: SPEC IMEN MODERATELY HEMOLYZED, RESULTS MAY BE ADVERSELY AFFECTED Performed By: #### C P, CDP, COSMO, BHCG, MG, VD25, LIP #### [address] [address] Retail Shift Leader: Campos Avilez MD Protein [Mass/Vol] 5.0 g/dL Low 6.4-8.3 [facility] Comment on above: Performed By: #### C P, CDP, COSMO, BHCG, MG, VD25, LIP #### [address] [address] Retail Shift Leader: Campos Avilez MD Sodium [Moles/Vol] 141 mmol/L Normal 135-144 [facility] Comment on above: Performed By: #### C P, CDP, COSMO, BHCG, MG, VD25, LIP #### [address] [address] Retail Shift Leader: Campos Avilez MD Urea nitrogen [Mass/Vol] 10 mg/dL Normal 6-20 [facility] Comment on above: Performed By: #### C P, CDP, COSMO, BHCG, MG, VD25, LIP #### [address] [address] Retail Shift Leader: Campos Avilez MD BUN/CRE Ratio NOT REPORTED Normal 9-20 [facility] Comment on above: Performed By: #### C P, CDP, COSMO, BHCG, MG, VD25, LIP #### [facility] [address] [place] [address] Retail Shift Leader: Campos Avilez MD GFR, Amer NOT REPORTED Normal >60 [facility] Comment on above: Performed By: #### C P, CDP, COSMO, BHCG, MG, VD25, LIP #### [facility] [address] [place] [address] Retail Shift Leader: Campos Avilez MD Staging: NOT REPORTED Normal [facility] Comment on above: Performed By: #### C P, CDP, COSMO, BHCG, MG, VD25, LIP #### [facility] [address] [place] [address] Retail Shift Leader: Campos Avilez MD HCG, ,Urineon 07-086 Beta HCG ( test) Ql (U) Negative Normal NEG [facility] Comment on above: Result Comment: Spec [...] By: #### U HCG, UAMIC #### [address] [address] Retail Shift Leader: Campos Avilez MD HCG, Quanton 07-08-2020 HCG, Quant <1 Normal <5 [facility] Comment on above: Result Comment: Non-preg [...] CDP, COSMO, BHCG, MG, VD25, LIP #### [facility] [address] [place] [address] Retail Shift Leader: Campos Avilez MD Lipaseon 07-08-2020 Lipase [Catalytic activity/Vol] 15 U/L Normal 13-60 [facility] Comment on above: Performed By: #### C P, CDP, COSMO, BHCG, MG, VD25, LIP #### [facility] [address] [place] [address] Retail Shift Leader: aCmpos Avilez MD Magnesiumon 07-08-2020 Magnesium [Mass/Vol] 1.2 mg/dL Low 1.7-2.2 [facility] Comment on above: Performed By: #### C P, CDP, COSMO, BHCG, MG, VD25, LIP #### [facility] [address] [place] [address] Retail Shift Leader: Campos Avilez MD Interpretation and review of laboratory results Abnormal [place] Magnesium [Mass/Vol] 1.2 mg/dL Low 1.7 - 2 .2 mg/dL [place] Otheron 07-08-2020 Direct Exam Negative [place], [place] , URINEon 1 Beta HCG ( test) Ql (U) Negative NEGATIVE [place] Comment on above: Specimens with hCG [...] 2.6 mg/dL 2.5 - 4 .8 mg/dL [place] Phosphorus, Inorg.on 021 Phosphorus, Inorg. 2.6 mg/dL Normal 2.5-4.8 [facility] Comment on above: Performed By: #### U HCG, UAMIC #### [facility] [address] [place] [address] Retail Shift Leader: Campos Avilez MD NON OB TRANSVAGINALon Elia, Mhpn Incoming Radiant Results From [facility] - 07/08/2020 12:31 AM EST EXAMINATION: PELVIC [...] No evidence of ovarian torsion is noted. [place], [place] Unremarkable pelvic ultrasound. No evidence of ovarian torsion is noted. [place] EXAMINATION: PELVIC ULTRASOUND 07/07/2020 TECHNIQUE: Transvaginal [...] Free Fluid: No evidence of free fluid. [facility] [place], [place] Urinalysis w/ Microon 2020 ----- Normal [facility] Comment on above: Performed By: #### U HCG, UAMIC #### [address] [address] Retail Shift Leader: Campos Avilez MD Acetoacetic Acid,Ur Negative Normal NEG [facility] Comment on above: Performed By: #### U HCG, UAMIC #### [address] [address] Retail Shift Leader: Campos Avilez MD Bacteria LM.HPF (Urine sed) [#/Area] MANY Abnormal NONE [facility] Comment on above: Performed By: #### U HCG, UAMIC #### [address] [address] Retail Shift Leader: Campos Avilez MD Bilirubin, SemiQt,Ur Negative Normal NEG [facility] Comment on above: Performed By: #### U HCG, UAMIC #### [address] [address] Retail Shift Leader: Campos Avilez MD Color (U) ORANGE Abnormal YEL [facility] Comment on above: Result Comment: INTE RPRET WITH CAUTION DUE TO INTENSE COLOR OF URINE. Performed By: #### U HCG, UAMIC #### [address] [address] Retail Shift Leader: Campos Avilez MD Epithelial cells LM.HPF (Urine sed) [#/Area] 0 TO 2 Normal 0-5 [facility] Comment on above: Performed By: #### U HCG, UAMIC #### [address] [address] Retail Shift Leader: Campos Avilez MD Glucose Ql (U) Negative Normal NEG [facility] Comment on above: Performed By: #### U HCG, UAMIC #### [address] [address] Retail Shift Leader: Campos Avilez MD Hemoglobin, Ur LARGE Abnormal NEG [facility] Comment on above: Performed By: #### U HCG, UAMIC #### [address] [address] Retail Shift Leader: Campos Avilez MD Leukocyte esterase Test strip Ql (U) MODERATE Abnormal NEG [facility] Comment on above: Performed By: #### U HCG, UAMIC #### [address] [address] Retail Shift Leader: Campos Avilez MD Nitrite,Ur Positive Abnormal NEG [facility] Comment on above: Performed By: #### U HCG, UAMIC #### [address] [address] Retail Shift Leader: Campos Avilez MD pH (U) 5.5 [pH] Normal 5.0-8.0 [facility] Comment on above: Performed By: #### U HCG, UAMIC #### [address] [address] Retail Shift Leader: Campos Avilez MD Protein Ql (U) 2+ Abnormal NEG [facility] Comment on above: Performed By: #### U HCG, UAMIC #### [address] [address] Retail Shift Leader: Campos Avilez MD RBC (U) [#/Vol] 50 TO 100 Normal 0-4 [facility] Comment on above: Result Comment: Refe rence range defined for non-centrifuged specimen. Performed By: #### U HCG, UAMIC #### [address] [address] Retail Shift Leader: Campos Avilez MD Specific gravity (U) [Rel density] 1.021 Normal 1.005-1.030 [facility] Comment on above: Performed By: #### U HCG, UAMIC #### [address] [address] Retail Shift Leader: Campos Avilez MD Turbidity TURBID Abnormal CLEAR [facility] Comment on above: Performed By: #### U HCG, UAMIC #### [address] [address] Retail Shift Leader: Campos Avilez MD Urobilinogen,Ur Normal Normal NORM [facility] Comment on above: Performed By: #### U HCG, UAMIC #### [address] [address] Retail Shift Leader: Campos Avilez MD WBC (U) [#/Vol] TOO NUMEROUS TO COUNT Normal 0-5 [facility] Comment on above: Performed By: #### U HCG, UAMIC #### [address] [address] Retail Shift Leader: Campos Avilez MD Amorphous sediment LM Ql (Urine sed) NOT REPORTED Normal NONE [facility] Comment on above: Performed By: #### U HCG, UAMIC #### [address] [address] Retail Shift Leader: Campos Avilez MD Casts LM.LPF (Urine sed) [#/Area] NOT REPORTED Normal 0-8 [facility] Comment on above: Performed By: #### U HCG, UAMIC #### [address] [address] Retail Shift Leader: Campos Avilez MD Crystals LM Nom (Urine sed) NOT REPORTED Normal NONE [facility] Comment on above: Performed By: #### U HCG, UAMIC #### [address] [address] Retail Shift Leader: Campos Avilez MD Epithelial, Renal NOT REPORTED Normal 0 [facility] Comment on above: Performed By: #### U HCG, UAMIC #### [address] [address] Retail Shift Leader: Campos Avilez MD Mucus Strands NOT REPORTED Normal NONE [facility] Comment on above: Performed By: #### U HCG, UAMIC #### [address] [address] Retail Shift Leader: Campos Avilez MD Other Observations NOT REPORTED Normal NREQ [facility] Comment on above: Performed By: #### U HCG, UAMIC #### [address] [address] Retail Shift Leader: Campos Avilez MD Trichomonas NOT REPORTED Normal NONE [facility] Comment on above: Performed By: #### U HCG, UAMIC #### [address] [address] Retail Shift Leader: Campos Avilez MD Yeast LM Ql (Urine sed) NOT REPORTED Normal [facility] Comment on above: Performed By: #### U HCG, UAMIC #### [facility] [address] [place] [address] Retail Shift Leader: Campos Avilez MD Urinalysis with microscopico n 07-08-2020 Amorphous, UA NOT REPORTED None [facility] [place] [place] Bacteria, UA MANY Abnormal None [facility] [place] Bilirubin Urine Negative NEGATIVE [facility] [place] [place] Casts UA NOT REPORTED [facility] [place], [place] Color, UA ORANGE Abnormal YELLOW [facility], [place] Comment on above: INTERPRET WITH CAUTI ON DUE TO INTENSE COLOR OF URINE. Crystals, UA NOT REPORTED None /HPF [place] Epithelial Cells UA 0 TO 2 [place] Glucose, Ur Negative NEGATIVE [place] Interpretation and review of laboratory results Abnormal [place] Ketones Ql (U) Negative NEGATIVE [place] Leukocyte esterase Test strip Ql (U) MODERATE Abnormal NEGATIVE [place] Mucus, UA NOT REPORTED None [place], [place] Nitrite, Urine Positive Abnormal NEGATIVE [place] Other Observations UA NOT REPORTED NOT REQ. M [place], [place] pH, UA 5.5 [place] Protein (U) [Mass/Vol] 2+ Abnormal NEGATIVE [place], [place] RBC (U) [#/Vol] 50 TO 100 [place], [place] Comment on above: Reference range defi sonia for non-centrifuged specimen. Renal Epithelial, UA NOT REPORTED 0 /HPF [place] Specific [place], UA 1.021 [place], [place] Trichomonas, UA NOT REPORTED None [place] Turbidity UA TURBID Abnormal CLEAR [place] Urine Hgb LARGE Abnormal NEGATIVE [place] Urobilinogen, Urine Normal Normal [place] WBC, UA TOO NUMEROUS TO COUNT [place] Yeast, UA NOT REPORTED None [place] VAGINITIS DNA PROBEon 2020 Direct Exam Positive Abnormal [place] Direct Exam Method of testing is a DNA probe intended for detection and identification of Samantha species, Gardnerella vaginalis, and Trichomonas vaginalis nucleic acid in vaginal fluid specimens from patients with symptoms of vaginitis/vaginosis. [place] Interpretation and review of laboratory results Abnormal [place] Special Requests NOT REPORTED [place] Specimen Description .VAGINA [place], [place] Vaginitis DNA Probeon 2020 Vaginitis DNA [...] of vaginitis/vaginosis. Report Status FINAL 07/08/[address] [facility] Comment on above: Performed By: #### U HCG, UAMIC #### [facility] [address] [place] [address] [id number] Retail Shift Leader: Campos Avilez MD Vitamin D 25 Hydroxyon 07-08 Interpretation and review of laboratory results Abnormal [place] Vit D, 25-Hydroxy 12.1 ng/mL Low 30 - 100 ng/mL [place] Comment on above: Reference Range: Vitamin D status Range Deficiency <20 ng/mL Mild Deficiency 20-30 ng/mL Sufficiency 30-100 ng/mL Toxicity >100 ng/mL Vitamin D 25 OHon 07-08-2020 Vitamin D 25 OH 12.1 ng/mL Low 30.0-100.0 [facility] Comment on above: Result Comment: Reference Range: Vitamin D status Range Deficiency <20 ng/mL Mild Deficiency 20-30 ng/mL Sufficiency 30-100 ng/mL Toxicity >100 ng/mL Performed By: #### U HCG, UAMIC #### [facility] [address] [place] [phone] Retail Shift Leader: Campos Avilez MD ABO/RHon 07-07-2020 ABO/Rh Positive [place], [place] CBC WITH AUTO DIFFERENTIALon 07-07-2020 Basophils (Bld) [#/Vol] 0.04 10*3/uL [place] Basophils/100 WBC (Bld) 0 % 0 - 2 % [place] Differential Type NOT REPORTED [place] Eosinophils (Bld) [#/Vol] 0.10 10*3/uL [place] Eosinophils/100 WBC (Bld) 1 % 1 - 4 % [place] Erythrocyte distribution width (RBC) [Ratio] 14.0 % 11.8 - 14.4 % [place] Hematocrit (Bld) [Volume fraction] 34.3 % Low 36.3 - 47.1 % [place] Hemoglobin (Bld) [Mass/Vol] 11.1 g/dL Low 11.9 - 15.1 g/dL [place] Immature granulocytes (Bld) [#/Vol] 0 % 0 [place] Immature granulocytes (Bld) [#/Vol] 0.04 10*3/uL [place] Interpretation and review of laboratory results Abnormal [place] Lymphocytes (Bld) [#/Vol] 1.77 10*3/uL [place] Lymphocytes/100 WBC (Bld) 16 % Low 25 - 45 % [place] MCH (RBC) [Entitic mass] 26.6 pg 25 - 35 pg [place] MCHC (RBC) [Mass/Vol] 32.4 g/dL 28.4 - 34.8 g/dL [place] MCV (RBC) [Entitic vol] 82.3 fL 78 - 102 fL [place] Monocytes (Bld) [#/Vol] 0.73 10*3/uL [place] Monocytes/100 WBC (Bld) 7 % 2 - 8 % [place] Platelet mean volume (Bld) [Entitic vol] 11.8 fL 8.1 - 13.5 fL [place] Platelets (Bld) [#/Vol] NOT REPORTED [place] Platelets (Bld) [#/Vol] 288 10*3/uL [place] RBC (Bld) [#/Vol] 4.17 10*6/uL 3.95 - 5.1 1 m/uL [place] RBC morphology finding Nom (Bld) NOT REPORTED [place] Segmented neutrophils/100 WBC (Bld) 75 % High 34 - 64 % [place] Segs Absolute 8.16 High [place] WBC (Bld) [#/Vol] 0.0 10*3/uL 0.0 per 10 0 WBC [place] WBC (Bld) [#/Vol] 10.8 10*3/uL [place] WBC Morphology NOT REPORTED [place] COMPREHENSIVE METABOLIC PANE Mikie 07-07-2020 Albumin [Mass/Vol] 2.3 g/dL Low 3.5 - 5.2 g/dL [place] Albumin/Globulin [Mass ratio] 0.9 {ratio} Low [place] ALP [Catalytic activity/Vol] 41 U/L 35 - 104 U/L [place] Comment on above: SPECIMEN MODERATELY HEMOLYZED, RESULTS MAY BE ADVERSELY AFFECTED ALT [Catalytic activity/Vol] 11 U/L 5 - 33 U/L [place] Comment on above: SPECIMEN MODERATELY HEMOLYZED, RESULTS MAY BE ADVERSELY AFFECTED Anion gap [Moles/Vol] 9 mmol/L 9 - 17 mmol/L [place] AST [Catalytic activity/Vol] 28 U/L <32 [place] Comment on above: SPECIMEN MODERATELY HEMOLYZED, RESULTS MAY BE ADVERSELY AFFECTED Bilirubin Ql (U) <0.10 Low 0.3 - 1.2 mg/dL [place] Bun/Cre Ratio NOT REPORTED [place] Calcium [Mass/Vol] 5.5 mg/dL Critically low 8.6 - 1 0.4 mg/dL [place] Chloride [Moles/Vol] 118 mmol/L High 98 - 10 7 mmol/L [place] CO2 [Moles/Vol] 14 mmol/L Low 20 - 31 mmol/L [place] Creatinine [Mass/Vol] 0.6 mg/dL 0.5 - 0.9 mg/dL [place] GFR NOT REPORTED >60 mL/min [place] GFR Non- Pediatric GFR requires additional information. Refer to NKDEP website for calculator. >60 mL/min [place] GFR/1.73 sq M predicted among non-blacks MDRD (S/P/Bld) [Vol rate/Area] NOT REPORTED [place] GFR/1.73 sq M predicted among non-blacks MDRD (S/P/Bld) [Vol rate/Area] [place] Comment on above: Average GFR for <20 years old not available. Chronic Kidney Disease: <60 mL/min/1.73sq m Kidney failure: <15 mL/min/1.73sq m eGFR calculated using average adult body mass. Additional eGFR calculator available at: http://www.[employer]/multiple_crcl_2012.htm Glucose [Mass/Vol] 84 mg/dL 70 - 99 mg/dL [place] Interpretation and review of laboratory results Abnormal [place] Potassium [Moles/Vol] 5.1 mmol/L 3.7 - 5.3 mmol/L [place] Comment on above: SPECIMEN MODERATELY HEMOLYZED, RESULTS MAY BE ADVERSELY AFFECTED Protein [Mass/Vol] 5.0 g/dL Low 6.4 - 8.3 g/dL [place] Sodium [Moles/Vol] 141 mmol/L 135 - 144 mmol/L [place] Urea nitrogen [Mass/Vol] 10 mg/dL 6 - 20 mg/dL [place] HCG, QUANTITATIVE, on 07-07-2020 hCG Quant <1 <5 IU/L [place] Comment on above: Non-preg premeno <=5 [...] activity/Vol] 15 U/L 13 - 60 U/L [place] Vital Signs Date Time Vital Sign Value Performing Clinician Facility 10-26-2023 03:30-0400 Hourly Rounding Fuentes Florentino [facility] Comment on above: Result Comment: pt discharged off unit 10-26-2023 03:15-0400 Hourly Rounding Fuentes Florentino [facility] Comment on above: Result Comment: went over discharge inst ructions. educated pt on importance of contacting primary provider with future concerns, pisking up antibiotic prescription tomorrow, and calling is symtpoms return or get worse. 10-26-2023 00:00-0400 Blood Pressure Location Fuentes Florentino [facility] 10-26-2023 00:00-0400 Body temperature 98.6 [degF] Fuentes Florentino [facility] 10-26-2023 00:00-0400 Diastolic blood pressure 68 mm[Hg] Fuentes Florentino [facility] 10-26-2023 00:00-0400 Heart rate 101 /min Fuentes Florentino [facility] 10-26-2023 00:00-0400 Hourly Rounding Fuentes Florentino [facility] 10-26-2023 00:00-0400 Mean blood pressure 86 mm[Hg] Fuentes Florentino [facility] 10-26-2023 00:00-0400 Respiratory rate 16 /min Fuentes Florentino [facility] 10-26-2023 00:00-0400 Systolic blood pressure 122 mm[Hg] Fuentes Florentino [facility] 07-17-2023 11:42-0500 Body weight 127.82 kg Chung Benja Handango Work Phone: [facility] 07-17-2023 11:42-0500 Diastolic blood pressure 70 mm[Hg] Chnug Benja DO Work Phone: [facility] 07-17-2023 11:42-0500 Systolic blood pressure 118 mm[Hg] Chung Benja DO Work Phone: [facility] 10-19-2021 01:12-0400 Diastolic blood pressure 62 mm[Hg] [facility]YSICIAN [facility] 10-19-2021 01:12-0400 Heart rate 89 /min [facility]YS[facility] 10-19-2021 01:12-0400 Respiratory rate 18 /min [facility] 10-19-2021 01:12-0400 SaO2% (BldA) [Mass fraction] 100 % [facility]YSIC[facility] 10-19-2021 01:12-0400 Systolic blood pressure 130 mm[Hg] [facility]YSICIAN [facility] 10-18-2021 23:10-0400 Body height 167.[address] [facility] 10-18-2021 23:10-0400 Body mass index (BMI) [Percentile] Per age and sex 99.1 % [facility]YS[facility] 10-18-2021 23:10-0400 Body mass index (BMI) [Ratio] 48.2 kg/m2 [facility]YSIC[facility] 10-18-2021 23:10-0400 Body weight 135.[address] [facility] 10-18-2021 23:08-0400 Body temperature 98.4 [degF] [facility]YSICIAN [facility] 07-07-2020 21:51-0500 BMI (Body Mass Index) 42.93 kg/m2 [facility], [place] 07-07-2020 21:51-0500 Body weight 120.66 kg [facility] [place] 07-07-2020 21:51-0500 BP Diastolic 85 mm[Hg] [facility] [place] 07-07-2020 21:51-0500 BP Systolic 136 mm[Hg] [facility] , [place] 07-07-2020 21:51-0500 Height 167.6 cm [facility] [place] 07-07-2020 21:51-0500 Pulse (Heart Rate) 93 /min [facility] [place] 07-07-2020 21:51-0500 Pulse Oximetry 97 % [facility] [place] 07-07-2020 21:51-0500 Respiratory Rate 18 /min [facility] [place] 07-07-2020 21:48-0500 Body Temperature 97.11 [degF] [facility] [place], [place] Encounters Encounter [...] Start: 10-26-2023 End: 10-26-2023 ambulatory Fuentes Florentino [place] Start: 10-25-2023 End: 10-26-2023 OB Triage Fuentes Florentino [facility] Start: 10-07-2023 End: 10-07-2023 ambulatory [...] Emergency department patient visit PHYSICIAN NO FAMILY Facility:[facility] Start: 10-18-2021 End: 10-19-2021 Emergency department patient visit PHYSICIAN NO FAMILY [facility] Start: 07-07-2020 End: 07-08-2020 Emergency department patient visit DAVID AQUINO [facility] Start: 07-07-2020 End: 07-08-2020 Emergency department patient visit Lisa Land Work Phone: [facility] ED Comment on above: BV (bacterial [...] AM EDT Routine [facility] OB [address] [place] [id number] Halima Cullen PA [address] [place], [place] [id number] [facility] OB Start: 07-17-2023 End: 07-17-2024 US for US OB VIABLILITY Imaging Routine with uncertain viability, single or unspecified fetus Expected: 07/17/2023 (Approximate), Expires: 07/17/2024 [facility] Work Phone: Comment on above: [...] 02-01-2020 Influenza vaccination Flu vaccine (# 1) [place] Start: 2018 Meningococcal (ACWY) vaccine (1 - 2-dose series) Meningococcal (ACWY) vaccine (1 - 2-dose series) [place] Start: 2018 Screening for Chlamy nancy trachomatis Chlamydia screen [place] Start: 2017 HIV screening HIV screen [place], [place] Start: 2013 HPV vaccine (1 - 2-d ose series) HPV vaccine (1 - 2-dose series) [place] Start: 2009 DTaP/Tdap/Td vaccine (1 - Tdap) DTaP/Tdap/Td vaccine (1 - Tdap) [place] Start: 2003 Hepatitis A vaccine (1 of 2 - 2-dose series) Hepatitis A vaccine (1 of 2 - 2-dose series) [place] Start: 2003 Measles,Mumps,Rubell a (MMR) vaccine (1 of 2 - Standard series) Measles,Mumps,Rubella (MMR) vaccine (1 of 2 - Standard series) [place] Start: 2003 Varicella vaccine (1 of 2 - 2-dose childhood series) Varicella vaccine (1 of 2 - 2-dose childhood series) [place] Start: 2002 Hepatitis B vaccine (1 of 3 - 3-dose primary series) Hepatitis B vaccine (1 of 3 - 3-dose primary series) [place] Start: 2002 Hepatitis C screening Hepatitis C [facility] [place] Bacteria identified in Urine by Culture Urine culture Microbiology Routine Missed menses Ordered: 07/03/2023 [facility] Comment on above: Ordered: 07/03/2023 End: 07-07-2020 C.trachomatis N.gonorrhoeae DNA C.trachomatis N.gonorrhoeae DNA Microbiology STAT One Time for 1 Occurrences starting 07/07/2020 until 07/07/2020 [place] Comment on above: One Time for 1 Occur rences starting 07/07/2020 until 07/07/2020 C.trachomatis N.gonorrhoeae DNA C.trachomatis N.gonorrhoeae DNA Microbiology Stat [employer] Label print 07/07/2020 11:20 PM [place] End: 07-08-2020 Calcium, Ionized Calcium, Ionized Lab STAT One Time for 1 Occurrences starting 07/08/2020 until 07/08/2020 [place] Comment on above: One Time for 1 Occur rences starting 07/08/2020 until 07/08/2020 CBC W Auto Different ial panel - Blood CBC and differential Lab Routine Missed menses Ordered: 07/03/2023 [facility] Comment on above: Ordered: 07/03/2023 End: 07-07-2020 Culture, Urine Culture, Urine Microbiology STAT One Time for 1 Occurrences starting 07/07/2020 until 07/07/2020 [place] Comment on above: One Time for 1 Occur rences starting 07/07/2020 until 07/07/2020 Culture, Urine Culture, Urine Microbiology Stat [employer] Label print 07/07/2020 10:56 [facility] [place] Hemoglobin A1c measurement Hemoglobin A1c Lab Routine Missed menses Ordered: 07/03/2023 [facility] Comment on above: Ordered: 07/03/2023 Hepatitis B virus surface Ag [Presence] in Serum or Plasma by Immunoassay Hepatitis B surface antigen Lab Routine Missed menses Ordered: 07/03/2023 [facility] Comment on above: Ordered: 07/03/2023 Hepatitis C virus Ab [Presence] in Serum or Plasma by Immunoassay Hepatitis C antibody Lab Routine Missed menses Ordered: 07/03/2023 [facility] Comment on above: Ordered: 07/03/2023 HIV-1/HIV-2 antigen/antibody combination immunoassay HIV-1 and HIV-2 antibodies Lab Routine Missed menses Ordered: 07/03/2023 [facility] Comment on above: Ordered: 07/03/2023 Patient Education Common Breast Problems Pelvic Pain ED [facility] Work Phone: Patient referral [facility] Work Phone: Reagin Ab [Presence] in Serum by RPR RPR Lab Routine Missed menses Ordered: 07/03/2023 [facility] Comment on above: Ordered: 07/03/2023 Rubella antibody, IgG Rubella an tibody, IgG Lab Routine Missed menses Ordered: 07/03/2023 [facility] Comment on above: Ordered: 07/03/2023 End: 07-07-2020 US DUP ABD PEL RETRO SCROT LIMITED US DUP ABD PEL RETRO SCROT LIMITED Imaging STAT Once for 1 Occurrences starting 07/07/2020 until 07/07/2020 [facility] Comment on above: Once for 1 Occurrenc es starting 07/07/2020 until 07/07/2020 US DUP ABD PEL RETRO SCROT LIMITED US DUP ABD PEL RETRO SCROT LIMITED Imaging STAT 07/08/2020 12:13 AM [facility]I [facility] Payers Date Payer Category Payer Unknown BCBS BCBS [id number] 2023-Present [phone] [address] [place] [address] [id number] 2023 Unknown [id number] 2021 [facility] [id number] 2002 Unknown [id number] 2002 Unknown [id number] 2002 Unknown [id number] [id number] 2002 Unknown [id number] [id number] 2002 Unknown [id number] [id number] 2002 Unknown [id number] [id number] 2002 Unknown [id number] [id number] 2002 Unknown [id number] [id number] 2002 Unknown [id number] [id number] 2002 Unknown [id number] 2.16.840.1.701056.3.579.2.125 2002 Unknown [id number] 2.16.840.1.687909.3.579.2.125 2002 Unknown [id number] [id number] 2002 Unknown [id number] 2.16.840.1.110083.3.579.2.1258 2002 Unknown [id number] [id number] 2002 Unknown [id number] [id number] 1957 Medicaid [id number] 1959 Unknown [id number] Unknown [id number] Social History Date Type Detail Facility Start: 07-07-2020 End: 07-16-2023 Tobacco smoking status NVIS Never smoker [facility] Start: 07-07-2020 Tobacco use and exposure [place] Start: 2002 Sex Assigned At Not on file [place] Exposure to SARS-CoV-2 (event) Not sure [place] Start: 10-19-2021 Tobacco smoking status NVIS Smoker (finding) [facility] Start: 2002 Sex Assigned At Female F [facility] Tobacco smoking status [facility] Tobacco smoking consumption unknown [facility] Start: 05-22-2023 [facility] Start: 07-16-2023 Gender identity Not on file [facility] Start: 07-16-2023 End: 07-17-2023 Alcohol intake Lifetime non-drinker (finding) [facility] Start: 07-16-2023 History of Social function [facility] Tobacco smoking status No Smoking Status Entered [facility] Functional Status Date Assessment Result Facility 10-26-2023 Functional Status N/A [facility] Clinical Notes 07-03-2023 to 10-26-2023 Chung Yousif DO - 07/17/2023 11:10 AM Costa Kilgore LPN - 07/03/2023 1:00 PM EST Note Date & Type Note Facility 10-26-2023 Note The following Patien t Education Materials have been given to the patient: EducationMaterial [facility] 10-26-2023 Hospital Discharg e instructions Patient Education [...] provider. Document Revised: 01/02/2022 Document Reviewed: 01/02/2022 [employer] Patient Education 2022 [employer]. 10/26/2023 03:10:04 Vaginal Bleeding During , Second [...] help with your regular activities. Medicines Take xakr-tgz-qjyrabe and prescription medicines only as told by [...] provider. Document Revised: 02/08/2021 Document Reviewed: 02/08/2021 [employer] Patient Education 2022 [employer]. 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 [...] your back during . General instructions Take vwxu-ctn-ofavmbf and prescription medicines only as told by [...] care provider for managing back pain. Take fsep-vhm-njmzqbm and prescription medicines only as told by [...] provider. Document Revised: 08/01/2021 Document Reviewed: 08/01/2021 [employer] Patient Education 2022 [employer]. Follow Up Care 10/25/2023 23:39:34 With:Chung YOUSIF Address: [address] , [place] [address] Business (1) When:11/04/2023 [facility] 10-25-2023 Evaluation + Plan note Diagnostic Tests PendingUrine Culture 10/25/23 [facility] 07-17-2023 History of Presen t illness Narrative Reason for Appointment: Patient ID: Teodoro Upton is a 23 y.o. female who presents for Routine Visit Patient presents today for Return OB appointment. Current Medications: has a current medication list which includes the following prescription(s): sfyxldco-agp-pw-fa and promethazine. Medical History: Active Ambulatory Problems Diagnosis Date Noted No Active Ambulatory Problems Resolved Ambulatory Problems Diagnosis Date Noted No Resolved Ambulatory Problems Past Medical History: Diagnosis Date ADD (attention deficit disorder) Asthma ([facility]) Family History Problem Relation Name Age [...] Chung Yousif DO documented in this encounter [facility] 07-03-2023 History of Presen t illness Narrative [...] Problems Past Medical History: Diagnosis Date Asthma ([facility]) No family history on file. Social [...] raw or undercooked meat, stay away from [facility], do not change litter boxes, eat [...] assessment inform ation available [facility] Work Phone: Evaluation note Diagnosis Missed menses Nausea and vomiting, unspecified vomiting type documented in this encounter [facility]* Diagnosis First trimester state, incidental Vaginal bleeding in Threatened miscarriage Threatened , unspecified as to episode of care with uncertain viability, single or unspecified fetus documented in this encounter [facility] Narrative No data available for this section [facility] Additional Instructions Please follow up as we discussed so you can have your concerns further evaluated.[facility] Work Phone: Progress note No data available for this section [facility] Discharge Instructions * Instructions* Brenda Stoner, - 07/08/2020 [facility] ED Clinic List Healthcare Providers Services Day of Week/ Hours [place] for [facility] Services [address] [facility] Pediatric Primary Care Adult Primary Care [facility]//Specialty Clinics Friday 8:00a 4:30p [address] Adult Medicine, Pediatrics, [place] Friday 8:30a 4:30p [facility] Surgery [address] [facility] Friday 8:30a 11:00a [facility] [address] [facility] Adult Internal Medicine ([facility]) [facility] Clinic Pediatric Clinic Friday, Friday, , Friday 8:00a 4:30p Friday 1:00p 4:30p Friday, Friday, 8:00a 5:00p; Friday 8:00a 12:30p Friday 1p 4p Friday, Friday, , Friday 8:30a 4:15p Friday 12:30p 4:15p Health Department [address] Pediatric Primary Care Adult Primary Care OB/ Friday, Friday 8a 12p 8a 4:45p [facility] [address] [place] [address] [place] [address] # Pre & Post Adoption Counseling Support / nutrition Care Reward Incentive Program [place] Location Fri, , Fri, Fri 10:00a 4:30p Thur 10:00a 7:30p [place] Location Friday - Friday 10a 4:30p [facility] [address] [facility] Adult Internal Medicine [address] [facility] Pediatrics [address] [facility], [address] Neuro / Headache [address] [facility] Friday 8:30a 5p [facility] [address] [facility] Fri, , , Fri 9:00a 4:30p Wed 1:00p 4:30p [facility] [address] [facility] [address] [facility] Friday 8:30a 5:00p [facility] Specialty Clinics [address] [facility] [address] Burn/Plastic, ENT, GI, Orthopedics, Surgical / Trauma, Urology, Vascular Friday 8:00 4:30p Call for an appointment [facility] [address] [facility] Adult Medicine, Eye Clinic, Dental Patient must be certified homeless Under age 18 not accepted Friday 8:00 4:30p [facility] [address] [facility] OB Friday, Friday, Friday, Friday 9a 5p 9a 6p Friday (OB only) [facility] [address] [facility] OB/ Friday 11a 7p , Fri, 9a 5p Friday 8a 4p 1st Friday 9a 1p Podiatry Clinic [address] [facility], [facility] Building [address] Friday 8:00 4:30 p [facility] [address] [place] Free nurse visits [place] programs Counseling Class Call or walk in [facility] [address] [place] Various Clinics 8a 5:30p [facility] [address] [facility], [address] [facility] Friday 8a 4:30p [facility] [address] [place], [place] [id number] [address] [place] [address] Friday 8a 4:30p Friday 8a 4:30p 8a 8p Outpatient Clinics [facility] [employer] [employer] [facility] [address] [facility] Friday 9a 5p Diabetic Education Services Call for an appointment [facility] Heart Failure Clinic [address] [facility] Friday 8:30a 4p Dental Services [facility] [address] [facility] Must have source of income and must bring (2) recent check stubs to appointment By appointment only [facility] [address] Patient must be homeless, call for eligibility guidelines. Under age 18 NOT accepted Days and hours vary (Doors open at 8:30a day of week varies) Call for an appointment Miscellaneous Information [facility] Call for Help [phone] Call for an appointment H.E.L.P (Hospital Eligibility Link Program) toll free For financial assistance * Attachments The following attachments cannot be sent through Care Everywhere. * Bacterial Vaginosis (Setswana) * UTI (Urinary Tract Infection): Female (Setswana) * Vitamin D: General Info (Setswana) documented in this encounter Assessments Diagnosis BV [...] CREATED AUTHOR AUTHOR'S ORGANIZ ATION 09/07/2022 [facility] DATE CREATED AUTHOR AUTHOR'S ORGANIZ ATION 03/13/2023 [facility] DATE CREATED AUTHOR AUTHOR'S ORGANIZ ATION 10/27/2023 Lopez Braxton [facility] DATE CREATED AUTHOR AUTHOR'S ORGANIZ ATION 10/31/2023 Como Braxton [facility] DATE CREATED AUTHOR AUTHOR'S ORGANIZ ATION 01/03/2024 [facility] dical Specialists EPIC Care Teams (unrecognized [...] BE BASED ON THE PRIMARY CLINICAL RECORDS. [employer] provides no warranty or guarantee of the accuracy or completeness of information in this document.
--- NOTE | 2024-01-20 16:08 | US_ITS ---
[address] [address] Patient Name: TEODORO HERNANDES MRN: [id number] date: 2000 Sex: F Assigned Patient Location: [facility] Current Patient Location: Accession/Order Number: [id number] Exam Date: 01/20/2024 16:13 Report Date: 01/21/2024 06:20 At the request of: ROBERT CULLEN Procedure: US OB BPP w non-stress EXAMINATION: US OB BPP w non-stress HISTORY:EXCESSIVE GROWTH AFFECTING O40.3XX0 COMPARISON: Ultrasound OB biophysical 01/13/2024 TECHNIQUE: Ultrasound biophysical profile was performed in the radiology department. BREATHING MOVEMENTS: 2 GROSS BODY MOVEMENTS: 2 TONE: 2 QUALITATIVE AMNIOTIC FLUID VOLUME: 2 PRESENTATION: CEPHALIC HEART RATE: 142.86 bpm AMNIOTIC FLUID VOLUME: 16.38 cm GESTATIONAL AGE: 36 weeks 5 days US/US OB BPP w non-stress IMPRESSION: 1. Total biophysical profile score: 8 2. Persistent, stable dilated right renal pelvis, 12 mm. Electronically authenticated by: ZURI VITALE Date: 01/21/2024 06:20
== END 2024-01-20 17:46 | disposition home or self-care (01) ==
LOC: US 07:00 → FBC 16:04
PROVIDERS: Visit Provider Physician Assistant
DX: O40.3XX0 Polyhydramnios, third trimester, not applicable or unspecified (principal); Z3A.36 36 weeks gestation of pregnancy
CPT/HCPCS: 76818

== ENCOUNTER 2024-01-23 07:18 | Outpatient (OUT) | payer MEDICAID, SELFPAY ==
--- OUTSIDE RECORDS SUMMARY | 2024-01-23 07:22 | XMS_ITS | CCD ---
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 Name Role Phone Unavailable Primary Care Provider [...] Propensity to adverse reactions to drug 07-07-2020 [facility]- [place], [place] Medications Current Medications Medication Drug Class(es) [...] Refill(s) 0 Start Date: 10/26/23 Status: Ordered Krfemdgp-Hkr-Aj-FA ( 1 + IRON PO) (4 sources) Asefvhqy-Soo-Up-FA ( 1 + IRON PO) Take by [...] Range Facility Nursing Assessmenton 024 Nursing Assessment [id number] 2#1.00TIFF Normal [facility] C Urineon 10-28-2023 Bacteria identified Cx [...] Locations R1: This test was performed at: [facility], [address] [place] [address], [address] [place] [address], [facility] Comment on above: Performed By: #### 2 [id number] #### [facility] [address] [place] [address] Consent for Treatmenton 10-01 Consent for Treatment [id number] #1.00TIFF [facility] Discharge Instructionson Discharge Instructions [id number] 7#1.00TIFF [facility] Inpatient Clinical Summaryon 10-26-2023 Inpatient Clinical Summary [address] [address] Clinical Summary Person Information Name: [facility] Age: 23 Years : 2000 Sex: Female PCP: NONE, XXXX Marital Status: Single Phone: [phone] Race: or Ethnicity: Non- or Language: Slovak Visit Id: Visit Reason: 24 WEEKS BLEEDING Speciality: Acuity: Obs Enc Type: OB Triage Med Service: Obstetrics Arrival: 10/25/2023 23:36:04 Discharge: 10/26/2023 03:30:56 Dispo Type: Home (Routine DC) Address: [facility] [address] [facility] [id number] Provider Notes: Diagnosis: Problems Active (10/26/2023) Smoker [...] Referring Physician: Follow up: With: Address: When: [facility], [address] [place] [address] , [place] [address] [facility] (1) In 9 days 11/04/2023 Patient Education Information: and Urinary Tract Infection; Vaginal Bleeding During , Second Trimester; Back Pain in Normal [facility] Inpatient Patient Summaryon 10-26-2023 Inpatient Patient Summary [address] [address] Patient Discharge Instructions PERSON [...] test results: Follow up: With: Address: When: [facility], [address] [place] [address] , [place] [address] Business (1) In 9 days [...] Always wi (more content not included)... Normal [facility] Insurance Correspondenceon 0 10-26-2023 Insurance Correspondence [id number] 8#1.00TIFF Normal [facility] UA with Cult [employer]flxon 10-26-19 24 Bacteria Auto Ql (U) Trace Normal Trace Fish [facility] Comment on above: Performed By: #### 4 [id number] #### [facility] [address] [place] [address] Bilirubin Ql (U) Negative Normal Negative [facility] Comment on above: Performed By: #### 4 [id number] #### [facility] [address] [place] [address] Clarity (U) Turbid Abnormal Clear [facility] Comment on above: Performed By: #### 4 [id number] #### [facility] [address] [place] [address] Color (U) Yellow Normal Yellow [facility] Comment on above: Result Comment: Micr oscopic readings are only performed on those samples that meet specific criteria set forth by [facility]. Performed By: #### 4 [id number] #### [facility] [address] [place] [address] Epithelial cells.squamous Auto (Urine sed) [#/Area] 5-8 Abnormal 0-2 [facility] Comment on above: Performed By: #### 4 [id number] #### [facility] [address] [place] [address] Glucose Ql (U) Negative Normal Negative [facility] Comment on above: Performed By: #### 4 [id number] #### [facility] [address] [place] [address] Hemoglobin Auto test strip (U) [Mass/Vol] Negative Normal Negative [facility] Comment on above: Performed By: #### 4 [id number] #### [facility] [address] [place] [address] Hyaline casts LM Ql (Urine sed) 0-3 Normal 0-3 [facility] Comment on above: Performed By: #### 4 [id number] #### [facility] [address] [place] [address] Ketones Auto test strip Ql (U) Negative Normal Negative [facility] Comment on above: Performed By: #### 4 [id number] #### [facility] [address] [place] [address] Leukocyte esterase Auto test strip Ql (U) 500 Gerald/uL Abnormal Negative [facility] Comment on above: Performed By: #### 4 [id number] #### [facility] [address] [place] [address] Mucus Auto Ql (U) Trace Normal Negative [facility] Comment on above: Performed By: #### 4 [id number] #### [facility] [address] [place] [address] Nitrite Auto test strip Ql (U) Negative Normal Negative [facility] Comment on above: Performed By: #### 4 [id number] #### [facility] [address] [place] [address] pH (U) 6.0 [pH] Invalid Interpretation Code 5.0-9.0 [facility] Comment on above: Performed By: #### 4 [id number] #### [facility] [address] [place] [address] Protein Ql (U) Trace Abnormal Negative [facility] Comment on above: Performed By: #### 4 [id number] #### [facility] [address] [place] [address] RBC Ql (U) 4-20 Abnormal 0-3 [facility] Comment on above: Performed By: #### 4 [id number] #### [facility] [address] [place] [address] Specific gravity (U) [Rel density] 1.030 Invalid Interpretation Code 1.005-1.030 [facility] Comment on above: Performed By: #### 4 [id number] #### [facility] [address] [place] [address] Urobilinogen (U) [Mass/Vol] Negative Normal Negative [facility] Comment on above: Performed By: #### 4 [id number] #### [facility] [address] [place] [address] WBC Auto (Urine sed) [#/Area] 16-25 Abnormal 0-5 [facility] Comment on above: Performed By: #### 4 [id number] #### [facility] [address] [place] [address] Type of Urine collection method Clean Catch Normal [facility] Comment on above: Performed By: #### 4 [id number] #### [facility] [address] [place] [address] URINALYSISOrdered By: SYSTEM SYSTEM on 10-25-2023 Bacteria [...] that meet specific criteria set forth by [facility]. Epithelial cells.squamous Auto (Urine sed) [...] 16-25 graded/HPF Invalid Interpretation Code 0-5graded/HP F [facility] UA Auto SS URINALYSISOrdered By: Elijah Hernandez on 10-25-2023 UA Spec Desc Clean Catch (10/25/23 11:53 PM) Normal [facility] UA Auto SS Urinalysis macro (dipstick) panel (U)on 07-17-2023 Bilirubin, UA Negative Negative - 4(70) +++ mg/dL [facility] Blood, UA Negative Negative - 50 William/mcL [facility] Clarity, UA Clear [facility] Color, UA Yellow [facility] Glucose, UA Negative Negative - 1999(110) ++++ mg/dL [facility] Interpretation and review of laboratory results Abnormal [facility] Ketones, UA Negative Negative - 160(16) ++++ mg/dL [facility] Leukocytes, UA Positive Negative - 500+++ Gerald/mcL [facility] Nitrite, UA Negative Negative - Positive [facility] pH, UA 7.0 5 - 9 [facility] Protein, UA Negative Negative - 1999(20) ++++ mg/dL [facility] Spec Grav, UA 1.020 1 - 1.03 [facility] Urobilinogen, UA 0.2 0.2 - 12 mg/dL [facility] HCG ( test) Ql (U)o n 07-03-2023 Interpretation and review of laboratory results Abnormal [facility] Preg Test, Ur Negative [facility] Urinalysis macro (dipstick) panel (U)on 07-03-2023 Bilirubin, UA Negative Negative - 4(70) +++ mg/dL [facility] Blood, UA Negative Negative - 50 William/mcL [facility] Clarity, UA Clear [facility] Color, UA Yellow [facility] Glucose, UA Negative Negative - 1999(110) ++++ mg/dL [facility] Interpretation and review of laboratory results Normal [facility] Ketones, UA Negative Negative - 160(16) ++++ mg/dL [facility] Leukocytes, UA Negative Negative - 500+++ Gerald/mcL [facility] Nitrite, UA Negative Negative - Positive [facility] pH, UA 5.5 5 - 9 [facility] Protein, UA Negative Negative - 1999(20) ++++ mg/dL [facility] Spec Grav, UA 1.010 1 - 1.03 [facility] Urobilinogen, UA 1.0 0.2 - 12 mg/dL [facility] XR FOOT RT MIN 3 VIEWSon XR [...] PADDY SAPP Date: 2022-08-30 14:42 Normal [facility] CBC AUTO DIFFon 06-28-2022 BASO # 0.0 103/ul Normal 0.0-0.1 [facility] Comment on above: Performed By: #### C BC #### [facility] [address] [place] [address] Dr. Jerald Poon Basophils/100 WBC (Bld) 0.3 % Normal 0.2-2.0 [facility] Comment on above: Performed By: #### C BC #### [facility] [address] [address] [address] Jerald Poon EO # 0.1 103/ul Normal 0.0-0.7 [facility] Comment on above: Performed By: #### C BC #### [facility] [address] [place] [address] Dr. Jerald Poon Eosinophils/100 WBC (Bld) 1.1 % Normal 0.9-7.0 [facility] Comment on above: Performed By: #### C BC #### [facility] [address] [place] [address] Dr. Jerald Poon Erythrocyte distribution width (RBC) [Ratio] 14.5 % Normal 11.0-15.0 [facility] Comment on above: Performed By: #### C BC #### [facility] [address] [place] [address] Dr. Jerald Poon Hematocrit (Bld) [Volume fraction] 36.7 % Normal 36.0-48.0 [facility] Comment on above: Performed By: #### C BC #### [facility] [address] [place] [address] Dr. Jerald Poon Hemoglobin (Bld) [Mass/Vol] 13.0 g/dL Normal 12.0-16.0 [facility] Comment on above: Performed By: #### C BC #### [facility] [address] [place] [address] Dr. Jerald Poon IG # 0.04 10e3/ul Critically high 0.00-0.03 [facility] Comment on above: Performed By: #### C BC #### [facility] [address] [place] [address] Dr. Jerald Poon IG % 0.3 % Normal 0.0-0.5 [facility] Comment on above: Performed By: #### C BC #### [facility] [address] [place] [address] Dr. Jerald Poon LYMPH # 3.0 103/ul Normal 1.2-3.8 [facility] Comment on above: Performed By: #### C BC #### [facility] [address] [place] [address] Dr. Jerald Poon Lymphocytes/100 WBC (Bld) 26.2 % Normal 20.5-60.0 [facility] Comment on above: Performed By: #### C BC #### [facility] [address] [place] [address] Dr. Jerald Poon MANUAL DIFF REQ NO Normal [facility] Comment on above: Performed By: #### C BC #### [facility] [address] [place] [address] Dr. Jerald Poon MCH (RBC) [Entitic mass] 27.1 pg Normal 26.7-34.0 [facility] Comment on above: Performed By: #### C BC #### [facility] [address] [address] [address] Jerald Poon MCHC (RBC) [Mass/Vol] 35.4 g/dL Critically high 29.9-35.2 [facility] Comment on above: Performed By: #### C BC #### [facility] [address] [address] [address] Jerald Poon MCV (RBC) [Entitic vol] 76.6 fL Critically low 81.0-99.0 [facility] Comment on above: Performed By: #### C BC #### [facility] [address] [place] [address] Dr. Jerald Poon MONO # 0.8 103/ul Normal 0.3-0.8 [facility] Comment on above: Performed By: #### C BC #### [facility] [address] [place] [address] Dr. Jerald Poon Monocytes/100 WBC (Bld) 7.0 % Normal 1.7-12.0 [facility] Comment on above: Performed By: #### C BC #### [facility] [address] [place] [address] Dr. Jerald Poon NEUT # 7.5 103/ul Critically high 1.4-6.5 [facility] Comment on above: Performed By: #### C BC #### [facility] [address] [place] [address] Dr. Jerald Poon Neutrophils/100 WBC (Bld) 65.1 % Normal 43.0-75.0 [facility] Comment on above: Performed By: #### C BC #### [facility] [address] [address] [address] Jerald Poon Platelet mean volume (Bld) [Entitic vol] 10.0 fL Normal 9.5-13.5 [facility] Comment on above: Performed By: #### C BC #### [facility] [address] [place] [address] Dr. Jerald Poon PLT 387 103/ul Normal 150-450 [facility] Comment on above: Performed By: #### C BC #### [facility] [address] [place] [address] Dr. Jerald Poon RBC 4.79 106/ul Normal 4.20-5.40 [facility] Comment on above: Performed By: #### C BC #### [facility] [address] [place] [address] Dr. Jerald Poon WBC 11.6 103/ul Critically high 4.0-11.0 [facility] Comment on above: Performed By: #### C BC #### [facility] [address] [place] [address] Dr. Jerald Poon CULTURE URINEon 06-28-2022 CULTURE URINE Culture Observations: LIGHT GROWTH OF MIXED GENITAL ZACARIAS. NO POTENTIAL PATHOGENS SEEN. Normal [facility] Comment on above: Performed By: #### U RCX #### [facility] [address] [place] [address] Dr. Jerald Poon ER URINE PROFILEon 3 Bilirubin Ql (U) Negative Normal NEGATIVE [facility] Comment on above: Performed By: #### U MICRO, ERUR #### [facility] [address] [place] [address] Dr. Jerald Poon Clarity (U) CLEAR Normal CLEAR [facility] Comment on above: Performed By: #### U MICRO, ERUR #### [facility] [address] [place] [address] Dr. Jerald Poon Color (U) YELLOW Normal YELLOW [facility] Comment on above: Performed By: #### U MICRO, ERUR #### [facility] [address] [place] [address] Dr. Jerald CEBALLOS A micrscopic examination will be performed if indicated. Normal [facility] Comment on above: Performed By: #### U MICRO, ERUR #### [facility] [address] [place] [address] Dr. Jerald Poon Glucose Ql (U) Negative Normal NEGATIVE [facility] Comment on above: Performed By: #### U MICRO, ERUR #### [facility] [address] [address] [address] Jerald Poon Hemoglobin Ql (U) Negative Normal NEGATIVE [facility] Comment on above: Performed By: #### U MICRO, ERUR #### [facility] [address] [address] [address] Jerald Poon Ketones Ql (U) 40 mg/dl Abnormal NEGATIVE [facility] Comment on above: Performed By: #### U MICRO, ERUR #### [facility] [address] [address] [address] Jerald Poon LEUKOCYTES TRACE Abnormal NEGATIVE [facility] Comment on above: Performed By: #### U MICRO, ERUR #### [facility] [address] [place] [address] Dr. Jerald Poon Nitrite Ql (U) Negative Normal NEGATIVE [facility] Comment on above: Performed By: #### U MICRO, ERUR #### [facility] [address] [place] [address] Dr. Jerald Poon pH (U) 6.0 [pH] Normal 5-9 [facility] Comment on above: Performed By: #### U MICRO, ERUR #### [facility] [address] [place] [address] Dr. Jerald Poon SPEC GRAVITY >=1.030 Abnormal 1.005-<=1.02 5 [facility] Comment on above: Performed By: #### U MICRO, ERUR #### [facility] [address] [place] [address] Dr. Jerald Poon UA PROTEIN Negative Normal NEGATIVE/ TRACE [facility] Comment on above: Performed By: #### U MICRO, ERUR #### [facility] [address] [place] [address] Dr. Jerald Poon UR MICRO IND INDICATED Normal [facility] Comment on above: Performed By: #### U MICRO, ERUR #### [facility] [address] [place] [address] Dr. Jerald Poon Urobilinogen Qn (U) 0.2 {Lyly'U}/dL Normal 0.2 - 1. 0 [facility] Comment on above: Performed By: #### U MICRO, ERUR #### [facility] [address] [place] [address] Dr. Jerald Poon PREG QUANT HCGon 06-28-2022 HCG QUANT <1 Normal [facility] Comment on above: Performed By: #### P REGQNT #### [facility] [address] [place] [address] Dr. Jerald Poon HCG RANGE SEE BELOW Normal [facility] Comment on above: Result Comment: 5-50 0.2-1 WEEK 50-500 1-2 WEEKS 100-5,000 2-3 WEEKS 500-10,000 3-4 WEEKS 1,000-50,000 4-5 WEEKS 10,000-100,000 5-6 WEEKS 15,000-200,000 6-8 WEEKS 10,000-100,000 2-3 MONTHS Performed By: #### P REGQNT #### [facility] [address] [place] [address] Dr. Jerald Poon PROF CHEM 8 (BAS METB)on Anion gap [Moles/Vol] 14.0 mmol/L Normal [facility] Comment on above: Performed By: #### C BC #### [facility] [address] [place] [address] Dr. Jerald Poon Calcium [Mass/Vol] 9.6 mg/dL Normal 8.5-10.1 [facility] Comment on above: Performed By: #### C BC #### [facility] [address] [place] [address] Dr. Jerald Poon Chloride [Moles/Vol] 101 mmol/L Normal 98-107 [facility] Comment on above: Performed By: #### C BC #### [facility] [address] [place] [address] Dr. Jerald Poon CO2 [Moles/Vol] 25.4 mmol/L Normal 21.0-32.0 [facility] Comment on above: Performed By: #### C BC #### [facility] [address] [place] [address] Dr. Jerald Poon Creatinine [Mass/Vol] 0.92 mg/dL Normal 0.55-1.02 [facility] Comment on above: Performed By: #### C BC #### [facility] [address] [place] [address] Dr. Jerald Poon EGFR-AF MALAYSIAN >60 Normal >=60 [facility] Comment on above: Performed By: #### C BC #### [facility] [address] [address] [address] Jerald Poon EGFR-NON AF MALAYSIAN >60 Normal >=60 [facility] Comment on above: Performed By: #### C BC #### [facility] [address] [place] [address] Dr. Jerald Poon Glucose [Mass/Vol] 101 mg/dL Normal 74-106 [facility] Comment on above: Performed By: #### C BC #### [facility] [address] [place] [address] Dr. Jerald Poon Potassium [Moles/Vol] 3.4 mmol/L Critically low 3.5-5.1 [facility] Comment on above: Performed By: #### C BC #### [facility] [address] [place] [address] Dr. Jerald Poon Sodium [Moles/Vol] 137 mmol/L Normal 136-145 [facility] Comment on above: Performed By: #### C BC #### [facility] [address] [place] [address] Dr. Jerald Poon Urea nitrogen [Mass/Vol] 11.0 mg/dL Normal 7.0-18.0 [facility] Comment on above: Performed By: #### C BC #### [facility] [address] [place] [address] Dr. Jerald Poon Urea nitrogen/Creatinine [Mass ratio] 12.0 mg/mg Normal [facility] Comment on above: Performed By: #### C BC #### [facility] [address] [place] [address] Dr. Jerald Poon TSHon 01-27-2023 TSH 1.319 uIU/mL Normal 0.358-3.740 [facility] Comment on above: Performed By: #### C BC #### [facility] [address] [place] [address] Dr. Jerald Poon URINE MICROSCOPIC ONLYon BACTERIA SMALL Abnormal NONE SEEN [facility] Comment on above: Performed By: #### U MICRO, ERUR #### [facility] [address] [place] [address] Dr. Jerald Poon Bacteria identified Cx Nom (U) INDICATED Normal [facility] Comment on above: Performed By: #### U MICRO, ERUR #### [facility] [address] [place] [address] Dr. Jerald Poon CAST NONE SEEN Normal NONE SEEN [facility] Comment on above: Performed By: #### U MICRO, ERUR #### [facility] [address] [place] [address] Dr. Jerald Poon Crystals LM Nom (Urine sed) NONE SEEN Normal NONE SEEN [facility] Comment on above: Performed By: #### U MICRO, ERUR #### [facility] [address] [place] [address] Dr. Jerald Poon Epithelial cells LM Ql (Urine sed) FEW Abnormal NONE SEEN /RARE [facility] Comment on above: Performed By: #### U MICRO, ERUR #### [facility] [address] [place] [address] Dr. Jerald Poon MUCOUS NONE SEEN Normal NONE SEEN [facility] Comment on above: Performed By: #### U MICRO, ERUR #### [facility] [address] [place] [address] Dr. Jerald Pono RBC NONE SEEN Abnormal 0-2 [facility] Comment on above: Performed By: #### U MICRO, ERUR #### [facility] [address] [place] [address] Dr. Jerald Poon WBC 2-5 Abnormal NONE SEEN [facility] Comment on above: Performed By: #### U MICRO, ERUR #### [facility] [address] [place] [address] Dr. Jerald Poon CBC AUTO DIFFon 04-01-2022 BASO # 0.0 103/ul Normal 0.0-0.1 [facility] Comment on above: Performed By: #### C BC #### [facility] [address] [place] [address] Dr. Jerald Poon Basophils/100 WBC (Bld) 0.5 % Normal 0.2-2.0 [facility] Comment on above: Performed By: #### C BC #### [facility] [address] [place] [address] Dr. Jerald Poon EO # 0.1 103/ul Normal 0.0-0.7 [facility] Comment on above: Performed By: #### C BC #### [facility] [address] [place] [address] Dr. Jerald Poon Eosinophils/100 WBC (Bld) 1.7 % Normal 0.9-7.0 [facility] Comment on above: Performed By: #### C BC #### [facility] [address] [place] [address] Dr. Jerald Poon Erythrocyte distribution width (RBC) [Ratio] 14.2 % Normal 11.0-15.0 [facility] Comment on above: Performed By: #### C BC #### [facility] [address] [place] [address] Dr. Jerald Poon Hematocrit (Bld) [Volume fraction] 36.7 % Normal 36.0-48.0 [facility] Comment on above: Performed By: #### C BC #### [facility] [address] [place] [address] Dr. Jerald Poon Hemoglobin (Bld) [Mass/Vol] 12.1 g/dL Normal 12.0-16.0 [facility] Comment on above: Performed By: #### C BC #### [facility] [address] [place] [address] Dr. Jerald Poon IG # 0.01 10e3/ul Normal 0.00-0.03 [facility] Comment on above: Performed By: #### C BC #### [facility] [address] [place] [address] Dr. Jerald Poon IG % 0.1 % Normal 0.0-0.5 [facility] Comment on above: Performed By: #### C BC #### [facility] [address] [place] [address] Dr. Jerald Poon LYMPH # 2.3 103/ul Normal 1.2-3.8 [facility] Comment on above: Performed By: #### C BC #### [facility] [address] [place] [address] Dr. Jerald Poon Lymphocytes/100 WBC (Bld) 30.8 % Normal 20.5-60.0 [facility] Comment on above: Performed By: #### C BC #### [facility] [address] [place] [address] Dr. Jerald Poon MANUAL DIFF REQ NO Normal [facility] Comment on above: Performed By: #### C BC #### [facility] [address] [place] [address] Dr. Jerald Poon MCH (RBC) [Entitic mass] 27.3 pg Normal 26.7-34.0 [facility] Comment on above: Performed By: #### C BC #### [facility] [address] [place] [address] Dr. Jerald Poon MCHC (RBC) [Mass/Vol] 33.0 g/dL Normal 29.9-35.2 [facility] Comment on above: Performed By: #### C BC #### [facility] [address] [place] [address] Dr. Jerald Poon MCV (RBC) [Entitic vol] 82.7 fL Normal 81.0-99.0 [facility] Comment on above: Performed By: #### C BC #### [facility] [address] [place] [address] Dr. Jerald Poon MONO # 0.8 103/ul Normal 0.3-0.8 [facility] Comment on above: Performed By: #### C BC #### [facility] [address] [place] [address] Dr. Jerald Poon Monocytes/100 WBC (Bld) 10.6 % Normal 1.7-12.0 [facility] Comment on above: Performed By: #### C BC #### [facility] [address] [place] [address] Dr. Jerald Poon NEUT # 4.2 103/ul Normal 1.4-6.5 [facility] Comment on above: Performed By: #### C BC #### [facility] [address] [place] [address] Dr. Jerald Poon Neutrophils/100 WBC (Bld) 56.3 % Normal 43.0-75.0 [facility] Comment on above: Performed By: #### C BC #### [facility] [address] [place] [address] Dr. Jerald Poon Platelet mean volume (Bld) [Entitic vol] 10.2 fL Normal 9.5-13.5 [facility] Comment on above: Performed By: #### C BC #### [facility] [address] [place] [address] Dr. Jerald Poon PLT 375 103/ul Normal 150-450 [facility] Comment on above: Performed By: #### C BC #### [facility] [address] [place] [address] Dr. Jerald Poon RBC 4.44 106/ul Normal 4.20-5.40 [facility] Comment on above: Performed By: #### C BC #### [facility] [address] [place] [address] Dr. Jerald Poon WBC 7.5 103/ul Normal 4.0-11.0 [facility] Comment on above: Performed By: #### C BC #### [facility] [address] [place] [address] Dr. Jerald Poon ER URINE PROFILEon 2 Bilirubin Ql (U) Negative Normal NEGATIVE [facility] Comment on above: Performed By: #### C BC #### [facility] [address] [place] [address] Dr. Jerald Poon Clarity (U) CLEAR Normal CLEAR [facility] Comment on above: Performed By: #### C BC #### [facility] [address] [place] [address] Dr. Jerald Poon Color (U) YELLOW Normal YELLOW [facility] Comment on above: Performed By: #### C BC #### [facility] [address] [place] [address] Dr. Jerald CEBALLOS A micrscopic examination will be performed if indicated. Normal [facility] Comment on above: Performed By: #### C BC #### [facility] [address] [place] [address] Dr. Jerald Poon Glucose Ql (U) Negative Normal NEGATIVE [facility] Comment on above: Performed By: #### C BC #### [facility] [address] [place] [address] Dr. Jerald Poon Hemoglobin Ql (U) Negative Normal NEGATIVE [facility] Comment on above: Performed By: #### C BC #### [facility] [address] [place] [address] Dr. Jerald Poon Ketones Ql (U) Negative Normal NEGATIVE [facility] Comment on above: Performed By: #### C BC #### [facility] [address] [place] [address] Dr. Jerald Poon LEUKOCYTES Negative Normal NEGATIVE [facility] Comment on above: Performed By: #### C BC #### [facility] [address] [place] [address] Dr. Jerald Poon Nitrite Ql (U) Negative Normal NEGATIVE [facility] Comment on above: Performed By: #### C BC #### [facility] [address] [place] [address] Dr. Jerald Poon pH (U) 7.0 [pH] Normal 5-9 [facility] Comment on above: Performed By: #### C BC #### [facility] [address] [place] [address] Dr. Jerald Poon SPEC GRAVITY 1.025 Normal 1.005-<=1.02 5 [facility] Comment on above: Performed By: #### C BC #### [facility] [address] [place] [address] Dr. Jerald Poon UA PROTEIN Negative Normal NEGATIVE/ TRACE [facility] Comment on above: Performed By: #### C BC #### [facility] [address] [place] [address] Dr. Jerald Poon UR MICRO IND NOT INDICATED Normal [facility] Comment on above: Performed By: #### C BC #### [facility] [address] [place] [address] Dr. Jerald Poon Urobilinogen Qn (U) 1.0 {Lyly'U}/dL Normal 0.2 - 1. 0 [facility] Comment on above: Performed By: #### C BC #### [facility] [address] [place] [address] Dr. Jerald Poon PREG QUANT HCGon 04-01-2022 HCG QUANT 1 mIU/mL Normal [facility] Comment on above: Performed By: #### P REGQNT #### [facility] [address] [place] [address] Dr. Jerald Poon HCG RANGE SEE BELOW Normal [facility] Comment on above: Result Comment: 5-50 0.2-1 WEEK 50-500 1-2 WEEKS 100-5,000 2-3 WEEKS 500-10,000 3-4 WEEKS 1,000-50,000 4-5 WEEKS 10,000-100,000 5-6 WEEKS 15,000-200,000 6-8 WEEKS 10,000-100,000 2-3 MONTHS Performed By: #### P REGQNT #### [facility] [address] [place] [address] Dr. Jerald Poon PROF 14(COMP METB)on 022 Albumin [Mass/Vol] 3.6 g/dL Normal 3.4-5.0 [facility] Comment on above: Performed By: #### C MP #### [facility] [address] [place] [address] Dr. Jerald Poon Albumin/Globulin [Mass ratio] 0.8 {ratio} Normal [facility] Comment on above: Performed By: #### C MP #### [facility] [address] [place] [address] Dr. Jerald Poon ALP [Catalytic activity/Vol] 65 U/L Normal 46-116 [facility] Comment on above: Performed By: #### C MP #### [facility] [address] [place] [address] Dr. Jerald Pono ALT [Catalytic activity/Vol] 22 U/L Normal 14-59 [facility] Comment on above: Performed By: #### C MP #### [facility] [address] [address] [address] Jerald Poon Anion gap [Moles/Vol] 10.3 mmol/L Normal [facility] Comment on above: Performed By: #### C MP #### [facility] [address] [place] [address] Dr. Jerald Poon AST [Catalytic activity/Vol] 14 U/L Critically low 15-37 [facility] Comment on above: Performed By: #### C MP #### [facility] [address] [place] [address] Dr. Jerald Poon Bilirubin [Mass/Vol] 0.1 mg/dL Critically low 0.2-1.0 [facility] Comment on above: Performed By: #### C MP #### [facility] [address] [place] [address] Dr. Jerald Poon Calcium [Mass/Vol] 8.6 mg/dL Normal 8.5-10.1 [facility] Comment on above: Performed By: #### C MP #### [facility] [address] [place] [address] Dr. Jerald Poon Chloride [Moles/Vol] 104 mmol/L Normal 98-107 [facility] Comment on above: Performed By: #### C MP #### [facility] [address] [address] [address] Jerald Poon CO2 [Moles/Vol] 28.1 mmol/L Normal 21.0-32.0 [facility] Comment on above: Performed By: #### C MP #### [facility] [address] [address] [address] Jerald Poon Creatinine [Mass/Vol] 0.99 mg/dL Normal 0.55-1.02 [facility] Comment on above: Performed By: #### C MP #### [facility] [address] [address] [address] Jerald Poon EGFR-AF MALAYSIAN >60 Normal >=60 [facility] Comment on above: Performed By: #### C MP #### [facility] [address] [address] [address] Jerald Poon EGFR-NON AF MALAYSIAN >60 Normal >=60 [facility] Comment on above: Performed By: #### C MP #### [facility] [address] [address] [address] Jerald Poon Globulin (S) [Mass/Vol] 4.5 g/dL Normal [facility] Comment on above: Performed By: #### C MP #### [facility] [address] [place] [address] Dr. Jerald Poon Glucose [Mass/Vol] 94 mg/dL Normal 74-106 [facility] Comment on above: Performed By: #### C MP #### [facility] [address] [address] [address] Jerald Poon Potassium [Moles/Vol] 3.4 mmol/L Critically low 3.5-5.1 [facility] Comment on above: Performed By: #### C MP #### [facility] [address] [place] [address] Dr. Jerald Poon Protein [Mass/Vol] 8.1 g/dL Normal 6.4-8.2 [facility] Comment on above: Performed By: #### C MP #### [facility] [address] [address] [address] Jerald Poon Sodium [Moles/Vol] 139 mmol/L Normal 136-145 [facility] Comment on above: Performed By: #### C MP #### [facility] [address] [address] [address] Jerald Poon Urea nitrogen [Mass/Vol] 8.0 mg/dL Normal 7.0-18.0 [facility] Comment on above: Performed By: #### C MP #### [facility] [address] [place], [place] [address] Dr. Jerald Poon Urea nitrogen/Creatinine [Mass ratio] 8.1 mg/mg Normal [facility] Comment on above: Performed By: #### C MP #### [facility] [address] [place], [place] [address] Dr. Jerald Poon US PELVIS TRANSVAGon 022 [...] LUH MANRIQUE Date: 2022-04-01 21:55 Normal [facility] Automated erythrocytes count in urine sediment (number/area)Ordered By: Anders Sesay on 10-19-2021 RBC Auto (Urine sed) [#/Area] 1-2 [HPF] [facility] Automated leukocytes count i n urine sediment (number/area)Ordered By: Anders Sesay on 10-19-2021 WBC Auto (Urine sed) [#/Area] 3-4 [HPF] [facility] Basophils Auto (Bld) [#/Vol] Ordered By: Anders Sesay on 10-19-2021 Basophils (Bld) [#/Vol] 0.1 10*3/uL 0.0-0.2 [facility] Basophils/100 WBC Auto (Bld) Ordered By: Anders Sesay on 10-19-2021 Basophils/100 WBC (Bld) 0.6 % [facility] Bilirubin Test strip Ql (U)O rdered By: Anders Sesay on 10-19-2021 Bilirubin Ql (U) Negative Negative [facility] Blood hemoglobin measurement (mass/volume)Ordered By: Anders Sesay on 10-19-2021 Hemoglobin (Bld) [Mass/Vol] 13.2 g/dL 11.8-15.4 [facility] Blood leukocytes automated c ount (number/volume)Ordered By: Anders Sesay on 10-19-2021 WBC (Bld) [#/Vol] 9.1 10*3/uL 4.5-11.0 [facility] Body fluid albumin measureme nt (mass/volume)Ordered By: Anders Sesay on 10-19-2021 Albumin (Body fld) [Mass/Vol] 3.8 g/dL 3.2-5.5 [facility] Color Auto (U)Ordered By: Jason Sesay on 10-19-2021 Color (U) Yellow Yellow [facility] Creatinine and Glomerular fi ltration rate.predicted panel (S/P/Bld)Ordered By: Anders Sesay on 10-19-2021 Creatinine [Mass/Vol] 0.87 mg/dL 0.44-1.03 [facility] Eosinophils Auto (Bld) [#/Vo l]Ordered By: Anders Sesay on 10-19-2021 Eosinophils (Bld) [#/Vol] 0.1 10*3/uL 0.0-0.45 [facility] Eosinophils/100 WBC Auto (Bl d)Ordered By: Anders Sesay on 10-19-2021 Eosinophils/100 WBC (Bld) 0.9 % [facility] Erythrocyte distribution wid th Auto (RBC) [Ratio]Ordered By: Anders Sesay on 10-19-2021 Erythrocyte distribution width (RBC) [Ratio] 16.4 % 11.9-15.3 [facility] Estimated glomerular filtrat ion rate (GFR) non- AmericanOrdered By: Anders Sesay on 10-19-2021 GFR/1.73 sq M.predicted among non-blacks MDRD (S/P/Bld) [Vol rate/Area] > 60 mL/Min [facility] Globulin Calc (S) [Mass/Vol] Ordered By: Anders Sesay on 10-19-2021 Globulin (S) [Mass/Vol] 4.3 g/dL [facility] HCG ( test) IA.rapi d Ql (U)Ordered By: Anders Sesay on 10-19-2021 HCG ( test) Ql (U) Negative [facility] Hematocrit Auto (Bld) [Volum e fraction]Ordered By: Anders Sesay on 10-19-2021 Hematocrit (Bld) [Volume fraction] 40.2 % 34.0-46.4 [facility] Ketones Auto test strip (U) [Mass/Vol]Ordered By: Anders Sesay on 10-19-2021 Ketones (U) [Mass/Vol] Negative Negative [facility] - Hematology and Cell countsOrdered By: Anders Sesay on 10-19-2021 Nucleated RBC/100 WBC (Bld) [Ratio] 0.2 % 0-0.5 [facility] - UrinalysisOrder ed By: Anders Sesay on 10-19-2021 Hyaline casts LM Ql (Urine sed) 0-8 [LPF] [facility] Lymphocytes Auto (Bld) [#/Vo l]Ordered By: Anders Sesay on 10-19-2021 Lymphocytes (Bld) [#/Vol] 2.4 10*3/uL 1.00-4.8 [facility] Lymphocytes/100 WBC Auto (Bl d)Ordered By: Anders Sesay on 10-19-2021 Lymphocytes/100 WBC (Bld) 26.7 % [facility] MCH Auto (RBC) [Entitic mass ]Ordered By: Anders Sesay on 10-19-2021 MCH (RBC) [Entitic mass] 26.3 pg 24.7-34.3 [facility] MCHC Auto (RBC) [Mass/Vol]Or dered By: Anders Sesay on 10-19-2021 MCHC (RBC) [Mass/Vol] 32.9 g/dL 32.0-35.0 [facility] MCV Auto (RBC) [Entitic vol] Ordered By: Anders Sesay on 10-19-2021 MCV (RBC) [Entitic vol] 80.1 fL 80-100 [facility] Monocytes Auto (Bld) [#/Vol] Ordered By: Anders Sesay on 10-19-2021 Monocytes (Bld) [#/Vol] 0.7 10*3/uL 0.0-0.8 [facility] Monocytes/100 WBC Auto (Bld) Ordered By: Anders Sesay on 10-19-2021 Monocytes/100 WBC (Bld) 7.6 % [facility] Neutrophils Auto (Bld) [#/Vo l]Ordered By: Anders Sesay on 10-19-2021 Neutrophils (Bld) [#/Vol] 5.8 10*3/uL 1.8-7.7 [facility] Neutrophils/100 WBC Auto (Bl d)Ordered By: Anders Sesay on 10-19-2021 Neutrophils/100 WBC (Bld) 64.2 % [facility] Nitrite Test strip Ql (U)Ord ered By: Anders Sesay on 10-19-2021 Nitrite Ql (U) Negative Negative [facility] No Panel InformationOrdered By: Anders Sesay on 10-19-2021 Estimated GFR () > 60 mL/Min [facility] Comment on above: GFR estimated refere nce range: According to KDOQI guidelines, <60 ml/min/1.73m2 is sufficient to diagnose a patient with chronic kidney disease. Pharmacy Creatinine Clearance (Chem 147.41 [facility] Platelet mean volume Auto (B ld) [Entitic vol]Ordered By: Anders Sesay on 10-19-2021 Platelet mean volume (Bld) [Entitic vol] 8.6 fL 6.3-10.7 [facility] Platelets Auto (Bld) [#/Vol] Ordered By: Anders Sesay on 10-19-2021 Platelets (Bld) [#/Vol] 395 10*3/uL 150-450 [facility] Protein Auto test strip (U) [Mass/Vol]Ordered By: Anders Sesay on 10-19-2021 Protein (U) [Mass/Vol] Negative Negative [facility] Protein [Mass/volume] in Ser um or PlasmaOrdered By: Anders Sesay on 10-19-2021 Protein [Mass/Vol] 8.1 g/dL 6.1-7.9 [facility] RBC Auto (Bld) [#/Vol]Ordere d By: Anders Sesay on 10-19-2021 RBC (Bld) [#/Vol] 5.02 10*6/uL 3.60-5.00 [facility] Serum or plasma alanine ayoub otransferase measurement without P-5'-P (enzymatic activiOrdered By: Anders Sesay on 10-19-2021 ALT No additional P-5'-P [Catalytic activity/Vol] 20 U/L 10-60 [facility] Serum or plasma albumin/glob ulin mass ratioOrdered By: Anders Sesay on 10-19-2021 Albumin/Globulin [Mass ratio] 0.9 {ratio} [facility] Serum or plasma alkaline cosmo sphatase measurement (enzymatic activity/volume)Ordered By: Anders Sesay on 10-19-2021 ALP [Catalytic activity/Vol] 55 U/L 32-92 [facility] Serum or plasma aspartate am inotransferase measurement (enzymatic activity/volume)Ordered By: Anders Sesay on 10-19-2021 AST [Catalytic activity/Vol] 17 U/L 10-42 [facility] Serum or plasma calcium joann urement (mass/volume)Ordered By: Anders Sesay on 10-19-2021 Calcium [Mass/Vol] 9.1 mg/dL 8.2-10.2 [facility] Serum or plasma chloride adan surement (moles/volume)Ordered By: Anders Sesay on 10-19-2021 Chloride [Moles/Vol] 103 mmol/L 95-114 [facility] Serum or plasma glucose joann urement (mass/volume)Ordered By: Anders Sesay on 10-19-2021 Glucose [Mass/Vol] 105 mg/dL 70-100 [facility] Comment on above: ADA recommended refe rence range Random Glucose Reference Range is dependent on time and content of last meal. Glucose of more than 200 mg/dL in a nonstressed, ambulatory subject supports the diagnosis of Diabetes Mellitus. Serum or plasma potassium me asurement (moles/volume)Ordered By: Anders Sesay on 10-19-2021 Potassium [Moles/Vol] 3.7 mmol/L 3.5-5.1 [facility] Serum or plasma sodium measu rement (moles/volume)Ordered By: Anders Sesay on 10-19-2021 Sodium [Moles/Vol] 137 mmol/L 136-146 [facility] Serum or plasma total biliru bin measurement (mass/volume)Ordered By: Anders Sesay on 10-19-2021 Bilirubin [Mass/Vol] 0.3 mg/dL 0.3-1.2 [facility] Serum or plasma total carbon dioxide measurement (moles/volume)Ordered By: Anders Sesay on 10-19-2021 CO2 [Moles/Vol] 24.2 mmol/L 22.0-30.0 [facility] Serum or plasma urea nitroge n measurement (mass/volume)Ordered By: Anders Sesay on 10-19-2021 Urea nitrogen [Mass/Vol] 7 mg/dL 9-23 [facility] Specific gravity Auto test s trip (U) [Rel density]Ordered By: Anders Sesay on 10-19-2021 Specific gravity (U) [Rel density] 1.014 1.001-1.030 [facility] Squamous epithelial cells de tection in urine sediment by light microscopyOrdered By: Anders Sesay on 10-19-2021 Epithelial cells.squamous LM Ql (Urine sed) 3-4 [HPF] [facility] Urine bacteria detection by automated methodOrdered By: Anders Sesay on 10-19-2021 Bacteria Auto Ql (U) 1+ None Seen [facility] Urine clarity by refractomet ry automatedOrdered By: Anders Sesay on 10-19-2021 Clarity Refractometry automated (U) Clear Clear [facility] Urine glucose measurement by automated test strip (mass/volume)Ordered By: Anders Sesay on 10-19-2021 Glucose Auto test strip (U) [Mass/Vol] Normal mg/dL Normal [facility] Urine hemoglobin detection b y automated test stripOrdered By: Anders Sesay on 10-19-2021 Hemoglobin Auto test strip Ql (U) Negative Negative [facility] Urine leukocyte esterase det ection by automated test stripOrdered By: Anders Sesay on 10-19-2021 Leukocyte esterase Auto test strip Ql (U) 1+ Negative [facility] Urobilinogen Auto test strip (U) [Mass/Vol]Ordered By: Anders Sesay on 10-19-2021 Urobilinogen (U) [Mass/Vol] Normal mg/dL Normal [facility] pH Auto test strip (U)Ordere d By: Anders Sesay on 10-19-2021 pH (U) 5.5 [pH] 5.0-9.0 [facility] US DUP ABD PEL RETRO [...] MD 07/14/20 Edited Result - FINAL Normal [facility] US NON OB TRANSVAGINALon US NON [...] MD 07/14/20 Edited Result - FINAL Normal [facility] Chlamydia/GC,DNA Ampon 07-10 Chlamydia Probe Negative Normal NEG [facility] Comment on above: Result Comment: CHLA [...] Performed By: #### U HCG, UAMIC #### [facility] [address] [place], [place] [id number] Radiocommunications Technician: Campos Avilez MD Gonorrhea Probe Negative Normal NEG [facility] Comment on above: Result Comment: NEIS [...] Performed By: #### U HCG, UAMIC #### [facility] [address] [place], [place] [id number] Radiocommunications Technician: Campos Avilez MD Cult,Urineon 07-09-2020 Cult,Urine Specimen Description .CLEAN CATCH URINE Special Requests NOT REPORTED Culture ESCHERICHIA COLI >[id number] CFU/ML Report Status FINAL 07/09/2020 SUSCEPTIBILITY Organism [...] <=20 SUSCEPTIBLE Piperacillin/Tazobac her <=4 SUSCEPTIBLE Normal [facility] Comment on above: Performed By: #### U HCG, UAMIC #### [place] [address] Radiocommunications Technician: Campos Avilez MD ABO/Rh(D)on 07-08-2020 ABO/Rh(D) Positive Normal [facility] Comment on above: Performed By: #### [facility] #### [place] [address] Radiocommunications Technician: Campos Avilez MD CBC with Diffon 07-08-2020 Abs. Basophil 0.04 k/uL Normal 0.00-0.20 [facility] Comment on above: Performed By: #### C P, CDP, COSMO, BHCG, MG, VD25, LIP #### [place] [address] Radiocommunications Technician: Campos Avilez MD Abs.Imm.Granulocyte 0.04 k/uL Normal 0.00-0.30 [facility] Comment on above: Performed By: #### C P, CDP, COSMO, BHCG, MG, VD25, LIP #### [facility] [address] [place] [address] Radiocommunications Technician: Campos Avilez MD Abs.Neutrophil (Seg) 8.16 k/uL High 1.80-8.00 [facility] Comment on above: Performed By: #### C P, CDP, COSMO, BHCG, MG, VD25, LIP #### [address] [address] Radiocommunications Technician: Campos Avilez MD Basophils/100 WBC (Bld) 0 % Normal 0-2 [facility] Comment on above: Performed By: #### C P, CDP, COSMO, BHCG, MG, VD25, LIP #### [address] [address] Radiocommunications Technician: Campos Avilez MD Eosinophils (Bld) [#/Vol] 0.10 10*3/uL Normal 0.00-0.44 [facility] Comment on above: Performed By: #### C P, CDP, COSMO, BHCG, MG, VD25, LIP #### [address] [address] Radiocommunications Technician: Campos Avilez MD Eosinophils/100 WBC (Bld) 1 % Normal 1-4 [facility] Comment on above: Performed By: #### C P, CDP, COSMO, BHCG, MG, VD25, LIP #### [address] [address] Radiocommunications Technician: Campos Avilez MD Erythrocyte distribution width (RBC) [Ratio] 14.0 % Normal 11.8-14.4 [facility] Comment on above: Performed By: #### C P, CDP, COSMO, BHCG, MG, VD25, LIP #### [address] [address] Radiocommunications Technician: Campos Avilez MD Hematocrit (Bld) [Volume fraction] 34.3 % Low 36.3-47.1 [facility] Comment on above: Performed By: #### C P, CDP, COSMO, BHCG, MG, VD25, LIP #### [address] [address] Radiocommunications Technician: Campos Avilez MD Hemoglobin (Bld) [Mass/Vol] 11.1 g/dL Low 11.9-15.1 [facility] Comment on above: Performed By: #### C P, CDP, COSMO, BHCG, MG, VD25, LIP #### [address] [address] Radiocommunications Technician: Campos Avilez MD Immature granulocytes (Bld) [#/Vol] 0 % Normal 0 [facility] Comment on above: Performed By: #### C P, CDP, COSMO, BHCG, MG, VD25, LIP #### [place] [address] Radiocommunications Technician: Campos Avilez MD Lymphocytes (Bld) [#/Vol] 1.77 10*3/uL Normal 1.20-5.20 [facility] Comment on above: Performed By: #### C P, CDP, COSMO, BHCG, MG, VD25, LIP #### [place] [address] Radiocommunications Technician: Campos Avilez MD Lymphocytes/100 WBC (Bld) 16 % Low 25-45 [facility] Comment on above: Performed By: #### C P, CDP, COSMO, BHCG, MG, VD25, LIP #### [place] [address] Radiocommunications Technician: Campos Avilez MD MCH (RBC) [Entitic mass] 26.6 pg Normal 25.0-35.0 [facility] Comment on above: Performed By: #### C P, CDP, COSMO, BHCG, MG, VD25, LIP #### [address] [address] Radiocommunications Technician: Campos Avilez MD MCHC (RBC) [Mass/Vol] 32.4 g/dL Normal 28.4-34.8 [facility] Comment on above: Performed By: #### C P, CDP, COSMO, BHCG, MG, VD25, LIP #### [address] [address] Radiocommunications Technician: Campos Avilez MD MCV (RBC) [Entitic vol] 82.3 fL Normal 78.0-102.0 [facility] Comment on above: Performed By: #### C P, CDP, COSMO, BHCG, MG, VD25, LIP #### [address] [address] Radiocommunications Technician: Campos Avilez MD Monocytes (Bld) [#/Vol] 0.73 10*3/uL Normal 0.10-1.40 [facility] Comment on above: Performed By: #### C P, CDP, COSMO, BHCG, MG, VD25, LIP #### [address] [address] Radiocommunications Technician: Campos Avilez MD Monocytes/100 WBC (Bld) 7 % Normal 2-8 [facility] Comment on above: Performed By: #### C P, CDP, COSMO, BHCG, MG, VD25, LIP #### [address] [address] Radiocommunications Technician: Campos Avilez MD Neutrophil (Seg) 75 % High 34-64 [facility] Comment on above: Performed By: #### C P, CDP, COSMO, BHCG, MG, VD25, LIP #### [address] [address] Radiocommunications Technician: Campos Avilez MD NRBC Automated 0.0 per 100 WBC Normal 0.0 [facility] Comment on above: Performed By: #### C P, CDP, COSMO, BHCG, MG, VD25, LIP #### [address] [address] Radiocommunications Technician: Campos Avilez MD Platelet mean volume (Bld) [Entitic vol] 11.8 fL Normal 8.1-13.5 [facility] Comment on above: Performed By: #### C P, CDP, COSMO, BHCG, MG, VD25, LIP #### [address] [address] Radiocommunications Technician: Campos Avilez MD Platelets (Bld) [#/Vol] 288 10*3/uL Normal 138-453 [facility] Comment on above: Performed By: #### C P, CDP, COSMO, BHCG, MG, VD25, LIP #### [address] [address] Radiocommunications Technician: Campos Avilez MD RBC (Bld) [#/Vol] 4.17 10*6/uL Normal 3.95-5.11 [facility] Comment on above: Performed By: #### C P, CDP, COSMO, BHCG, MG, VD25, LIP #### [address] [address] Radiocommunications Technician: Campos Avilez MD WBC (Bld) [#/Vol] 10.8 10*3/uL Normal 4.5-13.5 [facility] Comment on above: Performed By: #### C P, CDP, COSMO, BHCG, MG, VD25, LIP #### [address] [address] Radiocommunications Technician: Campos Avilez MD Auto Diff Performed NOT REPORTED Normal [facility] Comment on above: Performed By: #### C P, CDP, COSMO, BHCG, MG, VD25, LIP #### [address] [address] Radiocommunications Technician: Campos Avilez MD Platelets (Bld) [#/Vol] NOT REPORTED Normal [facility] Comment on above: Performed By: #### C P, CDP, COSMO, BHCG, MG, VD25, LIP #### [id number] [place] [address] Radiocommunications Technician: Campos Avilez MD RBC morphology finding Nom (Bld) NOT REPORTED Normal [facility] Comment on above: Performed By: #### C P, CDP, COSMO, BHCG, MG, VD25, LIP #### [facility] [address] [place] [address] Radiocommunications Technician: Campos Avilez MD WBC Morphology NOT REPORTED Normal [facility] Comment on above: Performed By: #### C P, CDP, COSMO, BHCG, MG, VD25, LIP #### [address] [address] Radiocommunications Technician: Campos Avilez MD Calcium, Ionicon 07-08-2020 Calcium [Mass/Vol] 1.18 mmol/L Normal 1.13-1.33 [facility] Comment on above: Performed By: #### I OCAL #### [address] [address] Radiocommunications Technician: Campos Avilez MD Calcium, Ionizedon Calcium [Mass/Vol] 1.18 mmol/L 1.13 - 1. 33 mmol/L [facility], [place] Comp Metabolic Profon 2020 (cont.) Normal [facility] Comment on above: Result Comment: Aver age GFR for <20 years old not available. Chronic Kidney Disease: <60 mL/min/1.73sq m Kidney failure: <15 mL/min/1.73sq m eGFR calculated using average adult body mass. Additional eGFR calculator available at: http://www.[employer].com/multiple_crcl_2012.htm Performed By: #### C P, CDP, COSMO, BHCG, MG, VD25, LIP #### [address] [address] Radiocommunications Technician: Campos Avilez MD Albumin [Mass/Vol] 2.3 g/dL Low 3.5-5.2 [facility] Comment on above: Performed By: #### C P, CDP, COSMO, BHCG, MG, VD25, LIP #### [address] [address] Radiocommunications Technician: Campos Avilez MD Albumin/Globulin [Mass ratio] 0.9 {ratio} Low 1.0-2.5 [facility] Comment on above: Performed By: #### C P, CDP, COSMO, BHCG, MG, VD25, LIP #### [address] [address] Radiocommunications Technician: Campos Avilez MD Alkaline Phos 41 U/L Normal 35-104 [facility] Comment on above: Result Comment: SPEC IMEN MODERATELY HEMOLYZED, RESULTS MAY BE ADVERSELY AFFECTED Performed By: #### C P, CDP, COSMO, BHCG, MG, VD25, LIP #### [address] [address] Radiocommunications Technician: Campos Avilez MD ALT [Catalytic activity/Vol] 11 U/L Normal 5-33 [facility] Comment on above: Result Comment: SPEC IMEN MODERATELY HEMOLYZED, RESULTS MAY BE ADVERSELY AFFECTED Performed By: #### C P, CDP, COSMO, BHCG, MG, VD25, LIP #### [address] [address] Radiocommunications Technician: Campos Avilez MD Anion gap [Moles/Vol] 9 mmol/L Normal 9-17 [facility] Comment on above: Performed By: #### C P, CDP, COSMO, BHCG, MG, VD25, LIP #### [address] [address] Radiocommunications Technician: Campos Avilez MD AST [Catalytic activity/Vol] 28 U/L Normal <32 [facility] Comment on above: Result Comment: SPEC IMEN MODERATELY HEMOLYZED, RESULTS MAY BE ADVERSELY AFFECTED Performed By: #### C P, CDP, COSMO, BHCG, MG, VD25, LIP #### [facility] [address] [place] [address] Radiocommunications Technician: Campos Avilez MD Bilirubin Ql (U) <0.10 Low 0.3-1.2 [facility] Comment on above: Performed By: #### C P, CDP, COSMO, BHCG, MG, VD25, LIP #### [facility] [address] [place] [address] Radiocommunications Technician: Campos Avilez MD Calcium [Mass/Vol] 5.5 mg/dL Critically low 8.6-10.4 [facility] Comment on above: Performed By: #### C P, CDP, COSMO, BHCG, MG, VD25, LIP #### [facility] [address] [place] [address] Radiocommunications Technician: Campos Avilez MD Chloride [Moles/Vol] 118 mmol/L High 98-107 [facility] Comment on above: Performed By: #### C P, CDP, COSMO, BHCG, MG, VD25, LIP #### [facility] [address] [place] [address] Radiocommunications Technician: Campos Avilez MD CO2 [Moles/Vol] 14 mmol/L Low 20-31 [facility] Comment on above: Performed By: #### C P, CDP, COSMO, BHCG, MG, VD25, LIP #### [facility] [address] [place] [address] Radiocommunications Technician: Campos Avilez MD Creatinine [Mass/Vol] 0.60 mg/dL Normal 0.50-0.90 [facility] Comment on above: Performed By: #### C P, CDP, COSMO, BHCG, MG, VD25, LIP #### [address] [address] Radiocommunications Technician: Campos Avilez MD GFR,non Amer Pediatric GFR requires additional information. Refer to NKDEP website for Normal >60 [facility] Comment on above: Result Comment: calc ulator. Performed By: #### C P, CDP, COSMO, BHCG, MG, VD25, LIP #### [address] [address] Radiocommunications Technician: Campos Avilez MD Glucose [Mass/Vol] 84 mg/dL Normal 70-99 [facility] Comment on above: Performed By: #### C P, CDP, COSMO, BHCG, MG, VD25, LIP #### [address] [address] Radiocommunications Technician: Campos Avilez MD Potassium [Moles/Vol] 5.1 mmol/L Normal 3.7-5.3 [facility] Comment on above: Result Comment: SPEC IMEN MODERATELY HEMOLYZED, RESULTS MAY BE ADVERSELY AFFECTED Performed By: #### C P, CDP, COSMO, BHCG, MG, VD25, LIP #### [address] [address] Radiocommunications Technician: Campos Avilez MD Protein [Mass/Vol] 5.0 g/dL Low 6.4-8.3 [facility] Comment on above: Performed By: #### C P, CDP, COSMO, BHCG, MG, VD25, LIP #### [address] [address] Radiocommunications Technician: Campos Avilez MD Sodium [Moles/Vol] 141 mmol/L Normal 135-144 [facility] Comment on above: Performed By: #### C P, CDP, COSMO, BHCG, MG, VD25, LIP #### [address] [address] Radiocommunications Technician: Campos Avilez MD Urea nitrogen [Mass/Vol] 10 mg/dL Normal 6-20 [facility] Comment on above: Performed By: #### C P, CDP, COSMO, BHCG, MG, VD25, LIP #### [address] [address] Radiocommunications Technician: Campos Avilez MD BUN/CRE Ratio NOT REPORTED Normal 9-20 [facility] Comment on above: Performed By: #### C P, CDP, COSMO, BHCG, MG, VD25, LIP #### [facility] [address] [place] [address] Radiocommunications Technician: Campos Avilez MD GFR, Amer NOT REPORTED Normal >60 [facility] Comment on above: Performed By: #### C P, CDP, COSMO, BHCG, MG, VD25, LIP #### [facility] [address] [place] [address] Radiocommunications Technician: Campos Avilez MD Staging: NOT REPORTED Normal [facility] Comment on above: Performed By: #### C P, CDP, COSMO, BHCG, MG, VD25, LIP #### [facility] [address] [place] [address] Radiocommunications Technician: Campos Avilez MD HCG, ,Urineon 07-08 Beta HCG ( test) Ql (U) Negative Normal NEG [facility] Comment on above: Result Comment: Spec [...] Performed By: #### U HCG, UAMIC #### [address] [address] Radiocommunications Technician: Campos Avilez MD HCG, Quanton 07-08-2020 HCG, Quant <1 Normal <5 [facility] Comment on above: Result Comment: Non-preg [...] CDP, COSMO, BHCG, MG, VD25, LIP #### [facility] [address] [place] [address] Radiocommunications Technician: Campos Avilez MD Lipaseon 07-08-2020 Lipase [Catalytic activity/Vol] 15 U/L Normal 13-60 [facility] Comment on above: Performed By: #### C P, CDP, COSMO, BHCG, MG, VD25, LIP #### [facility] [address] [place] [address] Radiocommunications Technician: Campos Avilez MD Magnesiumon 07-08-2020 Magnesium [Mass/Vol] 1.2 mg/dL Low 1.7-2.2 [facility] Comment on above: Performed By: #### C P, CDP, COSMO, BHCG, MG, VD25, LIP #### [facility] [address] [place] [address] Radiocommunications Technician: Campos Avilez MD Interpretation and review of laboratory results Abnormal [place] Magnesium [Mass/Vol] 1.2 mg/dL Low 1.7 - 2 .2 mg/dL [place] Otheron 07-08-2020 Direct Exam Negative [place] , URINEon 1 Beta HCG ( test) Ql (U) Negative NEGATIVE [place] Comment on above: Specimens with hCG [...] 2.6 mg/dL 2.5 - 4 .8 mg/dL [place] Phosphorus, Inorg.on 021 Phosphorus, Inorg. 2.6 mg/dL Normal 2.5-4.8 [facility] Comment on above: Performed By: #### U HCG, UAMIC #### [facility] [address] [place] [address] Radiocommunications Technician: Campos Avilez MD NON OB TRANSVAGINALon Elia, Mhpn Incoming Radiant Results From [facility] [employer] - 07/08/2020 12:31 AM EST EXAMINATION: PELVIC [...] No evidence of ovarian torsion is noted. [place], [place] Unremarkable pelvic ultrasound. No evidence of ovarian torsion is noted. [place] EXAMINATION: PELVIC ULTRASOUND 07/07/2020 TECHNIQUE: Transvaginal [...] Free Fluid: No evidence of free fluid. [facility]- [place], [place] Urinalysis w/ Microon 2020 ----- Normal [facility] Comment on above: Performed By: #### U HCG, UAMIC #### [address] [address] Radiocommunications Technician: Campos Avilez MD Acetoacetic Acid,Ur Negative Normal NEG [facility] Comment on above: Performed By: #### U HCG, UAMIC #### [address] [address] Radiocommunications Technician: Campos Avilez MD Bacteria LM.HPF (Urine sed) [#/Area] MANY Abnormal NONE [facility] Comment on above: Performed By: #### U HCG, UAMIC #### [address] [address] Radiocommunications Technician: Campos Avilez MD Bilirubin, SemiQt,Ur Negative Normal NEG [facility] Comment on above: Performed By: #### U HCG, UAMIC #### [address] [address] Radiocommunications Technician: Campos Avilez MD Color (U) ORANGE Abnormal YEL [facility] Comment on above: Result Comment: INTE RPRET WITH CAUTION DUE TO INTENSE COLOR OF URINE. Performed By: #### U HCG, UAMIC #### [address] [address] Radiocommunications Technician: Campos Avilez MD Epithelial cells LM.HPF (Urine sed) [#/Area] 0 TO 2 Normal 0-5 [facility] Comment on above: Performed By: #### U HCG, UAMIC #### [address] [address] Radiocommunications Technician: Campos Avilez MD Glucose Ql (U) Negative Normal NEG [facility] Comment on above: Performed By: #### U HCG, UAMIC #### [address] [address] Radiocommunications Technician: Campos Avilez MD Hemoglobin, Ur LARGE Abnormal NEG [facility] Comment on above: Performed By: #### U HCG, UAMIC #### [address] [address] Radiocommunications Technician: Campos Avilez MD Leukocyte esterase Test strip Ql (U) MODERATE Abnormal NEG [facility] Comment on above: Performed By: #### U HCG, UAMIC #### [address] [address] Radiocommunications Technician: Campos Avilez MD Nitrite,Ur Positive Abnormal NEG [facility] Comment on above: Performed By: #### U HCG, UAMIC #### [address] [address] Radiocommunications Technician: Campos Avilez MD pH (U) 5.5 [pH] Normal 5.0-8.0 [facility] Comment on above: Performed By: #### U HCG, UAMIC #### [address] [address] Radiocommunications Technician: Campos Avilez MD Protein Ql (U) 2+ Abnormal NEG [facility] Comment on above: Performed By: #### U HCG, UAMIC #### [address] [address] Radiocommunications Technician: Campos Avilez MD RBC (U) [#/Vol] 50 TO 100 Normal 0-4 [facility] Comment on above: Result Comment: Refe rence range defined for non-centrifuged specimen. Performed By: #### U HCG, UAMIC #### [address] [address] Radiocommunications Technician: Campos Avilez MD Specific gravity (U) [Rel density] 1.021 Normal 1.005-1.030 [facility] Comment on above: Performed By: #### U HCG, UAMIC #### [address] [address] Radiocommunications Technician: Campos Avilez MD Turbidity TURBID Abnormal CLEAR [facility] Comment on above: Performed By: #### U HCG, UAMIC #### [address] [address] Radiocommunications Technician: Campos Avilez MD Urobilinogen,Ur Normal Normal NORM [facility] Comment on above: Performed By: #### U HCG, UAMIC #### [address] [address] Radiocommunications Technician: Campos Avilez MD WBC (U) [#/Vol] TOO NUMEROUS TO COUNT Normal 0-5 [facility] Comment on above: Performed By: #### U HCG, UAMIC #### [address] [address] Radiocommunications Technician: Campos Avilez MD Amorphous sediment LM Ql (Urine sed) NOT REPORTED Normal NONE [facility] Comment on above: Performed By: #### U HCG, UAMIC #### [address] [address] Radiocommunications Technician: Campos Avilez MD Casts LM.LPF (Urine sed) [#/Area] NOT REPORTED Normal 0-8 [facility] Comment on above: Performed By: #### U HCG, UAMIC #### [address] [address] Radiocommunications Technician: Campos Avliez MD Crystals LM Nom (Urine sed) NOT REPORTED Normal NONE [facility] Comment on above: Performed By: #### U HCG, UAMIC #### [address] [address] Radiocommunications Technician: Campos Avilez MD Epithelial, Renal NOT REPORTED Normal 0 [facility] Comment on above: Performed By: #### U HCG, UAMIC #### [address] [address] Radiocommunications Technician: Campos Avilez MD Mucus Strands NOT REPORTED Normal NONE [facility] Comment on above: Performed By: #### U HCG, UAMIC #### [address] [address] Radiocommunications Technician: Campos Avilez MD Other Observations NOT REPORTED Normal NREQ [facility] Comment on above: Performed By: #### U HCG, UAMIC #### [address] [address] Radiocommunications Technician: Campos Avilez MD Trichomonas NOT REPORTED Normal NONE [facility] Comment on above: Performed By: #### U HCG, UAMIC #### [address] [address] Radiocommunications Technician: Campos Avilez MD Yeast LM Ql (Urine sed) NOT REPORTED Normal [facility] Comment on above: Performed By: #### U HCG, UAMIC #### [facility] [address] [place] [address] Radiocommunications Technician: Campos Avilez MD Urinalysis with microscopico n 07-08-2020 Amorphous, UA NOT REPORTED None [facility] [place] [place] Bacteria, UA MANY Abnormal None [facility] [place] Bilirubin Urine Negative NEGATIVE [facility] [place] Casts UA NOT REPORTED [facility] [place], [place] Color, UA ORANGE Abnormal YELLOW [facility], [place] Comment on above: INTERPRET WITH CAUTI ON DUE TO INTENSE COLOR OF URINE. Crystals, UA NOT REPORTED None /HPF [place], [place] Epithelial Cells UA 0 TO 2 [place] Glucose, Ur Negative NEGATIVE [place] Interpretation and review of laboratory results Abnormal [place] Ketones Ql (U) Negative NEGATIVE [place] Leukocyte esterase Test strip Ql (U) MODERATE Abnormal NEGATIVE [place] Mucus, UA NOT REPORTED None [place] Nitrite, Urine Positive Abnormal NEGATIVE [place] Other Observations UA NOT REPORTED NOT REQ. M [place], [place] pH, UA 5.5 [place] Protein (U) [Mass/Vol] 2+ Abnormal NEGATIVE [place] RBC (U) [#/Vol] 50 TO 100 [place], [place] Comment on above: Reference range defi sonia for non-centrifuged specimen. Renal Epithelial, UA NOT REPORTED 0 /HPF [place], [place] Specific Isabella, UA 1.021 [place], [place] Trichomonas, UA NOT REPORTED None [place] Turbidity UA TURBID Abnormal CLEAR [place] Urine Hgb LARGE Abnormal NEGATIVE [place] Urobilinogen, Urine Normal Normal [place] WBC, UA TOO NUMEROUS TO COUNT [place] Yeast, UA NOT REPORTED None [place] VAGINITIS DNA PROBEon 2020 Direct Exam Positive Abnormal [place] Direct Exam Method of testing is a DNA probe intended for detection and identification of Samantha species, Gardnerella vaginalis, and Trichomonas vaginalis nucleic acid in vaginal fluid specimens from patients with symptoms of vaginitis/vaginosis. [place] Interpretation and review of laboratory results Abnormal [place] Special Requests NOT REPORTED [place] Specimen Description .VAGINA [place] Vaginitis DNA Probeon 2020 Vaginitis DNA [...] of vaginitis/vaginosis. Report Status FINAL 07/08/2020 Normal [facility] Comment on above: Performed By: #### U HCG, UAMIC #### [facility] [address] [place] [id number] Radiocommunications Technician: Campos Avilez MD Vitamin D 25 Hydroxyon 07-08 Interpretation and review of laboratory results Abnormal [place], [place] Vit D, 25-Hydroxy 12.1 ng/mL Low 30 - 100 ng/mL [place] Comment on above: Reference Range: Vitamin D status Range Deficiency <20 ng/mL Mild Deficiency 20-30 ng/mL Sufficiency 30-100 ng/mL Toxicity >100 ng/mL Vitamin D 25 OHon 07-08-2020 Vitamin D 25 [place] 12.1 ng/mL Low 30.0-100.0 [facility] Comment on above: Result Comment: Reference Range: Vitamin D status Range Deficiency <20 ng/mL Mild Deficiency 20-30 ng/mL Sufficiency 30-100 ng/mL Toxicity >100 ng/mL Performed By: #### U HCG, UAMIC #### [facility] [address] [place] [id number] Radiocommunications Technician: Campos Avilez MD ABO/RHon 07-07-2020 ABO/Rh Positive [place] CBC WITH AUTO DIFFERENTIALon 07-07-2020 Basophils (Bld) [#/Vol] 0.04 10*3/uL [place] Basophils/100 WBC (Bld) 0 % 0 - 2 % [place] Differential Type NOT REPORTED [place] Eosinophils (Bld) [#/Vol] 0.10 10*3/uL [place] Eosinophils/100 WBC (Bld) 1 % 1 - 4 % [place] Erythrocyte distribution width (RBC) [Ratio] 14.0 % 11.8 - 14.4 % [place] Hematocrit (Bld) [Volume fraction] 34.3 % Low 36.3 - 47.1 % [place] Hemoglobin (Bld) [Mass/Vol] 11.1 g/dL Low 11.9 - 15.1 g/dL [place] Immature granulocytes (Bld) [#/Vol] 0 % 0 [place] Immature granulocytes (Bld) [#/Vol] 0.04 10*3/uL [place] Interpretation and review of laboratory results Abnormal [place] Lymphocytes (Bld) [#/Vol] 1.77 10*3/uL [place] Lymphocytes/100 WBC (Bld) 16 % Low 25 - 45 % [place] MCH (RBC) [Entitic mass] 26.6 pg 25 - 35 pg [place] MCHC (RBC) [Mass/Vol] 32.4 g/dL 28.4 - 34.8 g/dL [place] MCV (RBC) [Entitic vol] 82.3 fL 78 - 102 fL [place] Monocytes (Bld) [#/Vol] 0.73 10*3/uL [place] Monocytes/100 WBC (Bld) 7 % 2 - 8 % [place] Platelet mean volume (Bld) [Entitic vol] 11.8 fL 8.1 - 13.5 fL [place] Platelets (Bld) [#/Vol] NOT REPORTED [place] Platelets (Bld) [#/Vol] 288 10*3/uL [place] RBC (Bld) [#/Vol] 4.17 10*6/uL 3.95 - 5.1 1 m/uL [place] RBC morphology finding Nom (Bld) NOT REPORTED [place] Segmented neutrophils/100 WBC (Bld) 75 % High 34 - 64 % [place] Segs Absolute 8.16 High [place] WBC (Bld) [#/Vol] 0.0 10*3/uL 0.0 per 10 0 WBC [place] WBC (Bld) [#/Vol] 10.8 10*3/uL [place] WBC Morphology NOT REPORTED [place] COMPREHENSIVE METABOLIC PANE Mikie 07-07-2020 Albumin [Mass/Vol] 2.3 g/dL Low 3.5 - 5.2 g/dL [place] Albumin/Globulin [Mass ratio] 0.9 {ratio} Low [place] ALP [Catalytic activity/Vol] 41 U/L 35 - 104 U/L [place] Comment on above: SPECIMEN MODERATELY HEMOLYZED, RESULTS MAY BE ADVERSELY AFFECTED ALT [Catalytic activity/Vol] 11 U/L 5 - 33 U/L [place] Comment on above: SPECIMEN MODERATELY HEMOLYZED, RESULTS MAY BE ADVERSELY AFFECTED Anion gap [Moles/Vol] 9 mmol/L 9 - 17 mmol/L [place] AST [Catalytic activity/Vol] 28 U/L <32 [place] Comment on above: SPECIMEN MODERATELY HEMOLYZED, RESULTS MAY BE ADVERSELY AFFECTED Bilirubin Ql (U) <0.10 Low 0.3 - 1.2 mg/dL [place] Bun/Cre Ratio NOT REPORTED [place] Calcium [Mass/Vol] 5.5 mg/dL Critically low 8.6 - 1 0.4 mg/dL [place] Chloride [Moles/Vol] 118 mmol/L High 98 - 10 7 mmol/L [place] CO2 [Moles/Vol] 14 mmol/L Low 20 - 31 mmol/L [place] Creatinine [Mass/Vol] 0.6 mg/dL 0.5 - 0.9 mg/dL [place] GFR NOT REPORTED >60 mL/min [place] GFR Non- Pediatric GFR requires additional information. Refer to NKDEP website for calculator. >60 mL/min [place] GFR/1.73 sq M predicted among non-blacks MDRD (S/P/Bld) [Vol rate/Area] NOT REPORTED [place] GFR/1.73 sq M predicted among non-blacks MDRD (S/P/Bld) [Vol rate/Area] [place] Comment on above: Average GFR for <20 years old not available. Chronic Kidney Disease: <60 mL/min/1.73sq m Kidney failure: <15 mL/min/1.73sq m eGFR calculated using average adult body mass. Additional eGFR calculator available at: http://www.TheSquareFoot/multiple_crcl_2012.htm Glucose [Mass/Vol] 84 mg/dL 70 - 99 mg/dL [place] Interpretation and review of laboratory results Abnormal [place] Potassium [Moles/Vol] 5.1 mmol/L 3.7 - 5.3 mmol/L [place] Comment on above: SPECIMEN MODERATELY HEMOLYZED, RESULTS MAY BE ADVERSELY AFFECTED Protein [Mass/Vol] 5.0 g/dL Low 6.4 - 8.3 g/dL [place] Sodium [Moles/Vol] 141 mmol/L 135 - 144 mmol/L [place] Urea nitrogen [Mass/Vol] 10 mg/dL 6 - 20 mg/dL [place] HCG, QUANTITATIVE, on 07-07-2020 hCG Quant <1 <5 IU/L [place] Comment on above: Non-preg premeno <=5 [...] activity/Vol] 15 U/L 13 - 60 U/L [place] Vital Signs Date Time Vital Sign Value Performing Clinician Facility 10-26-2023 03:30-0400 Hourly Rounding Fuentes Florentino [facility] Comment on above: Result Comment: pt discharged off unit 10-26-2023 03:15-0400 Hourly Rounding Fuentes Florentino [facility] Comment on above: Result Comment: went over discharge inst ructions. educated pt on importance of contacting primary provider with future concerns, pisking up antibiotic prescription tomorrow, and calling is symtpoms return or get worse. 10-26-2023 00:00-0400 Blood Pressure Location Fuentes Florentino [facility] 10-26-2023 00:00-0400 Body temperature 98.6 [degF] Fuentes Florentino [facility] 10-26-2023 00:00-0400 Diastolic blood pressure 68 mm[Hg] Fuentes Florentino [facility] 10-26-2023 00:00-0400 Heart rate 101 /min Fuentes Florentino [facility] 10-26-2023 00:00-0400 Hourly Rounding Fuentes Florentino [facility] 10-26-2023 00:00-0400 Mean blood pressure 86 mm[Hg] Fuentes Florentino [facility] 10-26-2023 00:00-0400 Respiratory rate 16 /min Fuentes Florentino [facility] 10-26-2023 00:00-0400 Systolic blood pressure 122 mm[Hg] Fuentes Florentino [facility] 07-17-2023 11:42-0500 Body weight 127.82 kg Chung Benja [facility] Work Phone: [facility] 07-17-2023 11:42-0500 Diastolic blood pressure 70 mm[Hg] Chung Benja DO Work Phone: [facility] 07-17-2023 11:42-0500 Systolic blood pressure 118 mm[Hg] Chung Benja DO Work Phone: [facility] 10-19-2021 01:12-0400 Diastolic blood pressure 62 [...] 21:51-0500 BMI (Body Mass Index) 42.93 kg/m2 [facility], [place] 07-07-2020 21:51-0500 [facility] [place] [place] 07-07-2020 21:51-0500 BP Diastolic 85 mm[Hg] [facility] [place] 07-07-2020 21:51-0500 BP Systolic 136 mm[Hg] [facility] , [place] 07-07-2020 21:51-0500 Height 167.6 cm [facility] [place] 07-07-2020 21:51-0500 Pulse (Heart Rate) 93 /min [facility] [place] 07-07-2020 21:51-0500 Pulse Oximetry 97 % [facility] [place] 07-07-2020 21:51-0500 Respiratory Rate 18 /min [facility], [place] 07-07-2020 21:48-0500 Body Temperature 97.11 [degF] [facility] [place] Encounters Encounter Date Encounter [...] 10-26-2023 ambulatory Fuentes Florentino Facility:[facility] Start: 10-25-2023 End: 10-26-2023 OB Triage Fuentes Florentino [facility] Start: 10-07-2023 End: 10-07-2023 ambulatory CHUNG [...] Emergency department patient visit PHYSICIAN NO FAMILY Facility:[facility] Start: 10-18-2021 End: 10-19-2021 Emergency department patient visit PHYSICIAN NO FAMILY [facility] Start: 07-07-2020 End: 07-08-2020 Emergency department patient visit DAVID AQUINO [facility] Start: 07-07-2020 End: 07-08-2020 Emergency department patient visit Lisa Land Work Phone: [facility] ED Comment on above: BV (bacterial [...] AM EDT Routine [facility] [address] [place] [id number] Halima Cullen PA [address] [place], [place] [id number] [facility] OB Start: 07-17-2023 End: 07-17-2024 US for US OB VIABLILITY Imaging Routine with uncertain viability, single or unspecified fetus Expected: 07/17/2023 (Approximate), Expires: 07/17/2024 [facility] Work Phone: Comment on above: [...] 02-01-2020 Influenza vaccination Flu vaccine (# 1) [place] Start: 2018 Meningococcal (ACWY) vaccine (1 - 2-dose series) Meningococcal (ACWY) vaccine (1 - 2-dose series) [place] Start: 2018 Screening for Chlamy nancy trachomatis Chlamydia screen [place] Start: 2017 HIV screening HIV screen [place] Start: 2013 HPV vaccine (1 - 2-d ose series) HPV vaccine (1 - 2-dose series) [place] Start: 2009 DTaP/Tdap/Td vaccine (1 - Tdap) DTaP/Tdap/Td vaccine (1 - Tdap) [place] Start: 2003 Hepatitis A vaccine (1 of 2 - 2-dose series) Hepatitis A vaccine (1 of 2 - 2-dose series) [place] Start: 2003 Measles,Mumps,Rubell a (MMR) vaccine (1 of 2 - Standard series) Measles,Mumps,Rubella (MMR) vaccine (1 of 2 - Standard series) [place] Start: 2003 Varicella vaccine (1 of 2 - 2-dose childhood series) Varicella vaccine (1 of 2 - 2-dose childhood series) [place] Start: 2002 Hepatitis B vaccine (1 of 3 - 3-dose primary series) Hepatitis B vaccine (1 of 3 - 3-dose primary series) [place] Start: 2002 Hepatitis C screening [facility] [place] Bacteria identified in Urine by Culture Urine culture Microbiology Routine Missed menses Ordered: 07/03/2023 [facility] Comment on above: Ordered: 07/03/2023 End: 07-07-2020 C.trachomatis N.gonorrhoeae DNA C.trachomatis N.gonorrhoeae DNA Microbiology STAT One Time for 1 Occurrences starting 07/07/2020 until 07/07/2020 [place] Comment on above: One Time for 1 Occur rences starting 07/07/2020 until 07/07/2020 C.trachomatis N.gonorrhoeae DNA C.trachomatis N.gonorrhoeae DNA Microbiology Stat [employer] Label print 07/07/2020 11:20 PM [place] End: 07-08-2020 Calcium, Ionized Calcium, Ionized Lab STAT One Time for 1 Occurrences starting 07/08/2020 until 07/08/2020 [place] Comment on above: One Time for 1 Occur rences starting 07/08/2020 until 07/08/2020 CBC W Auto Different ial panel - Blood CBC and differential Lab Routine Missed menses Ordered: 07/03/2023 [facility] Comment on above: Ordered: 07/03/2023 End: 07-07-2020 Culture, Urine Culture, Urine Microbiology STAT One Time for 1 Occurrences starting 07/07/2020 until 07/07/2020 [place] Comment on above: One Time for 1 Occur rences starting 07/07/2020 until 07/07/2020 Culture, Urine Culture, Urine Microbiology Stat [employer] Label print 07/07/2020 10:[address] [facility] [place] Hemoglobin A1c measurement Hemoglobin A1c Lab Routine Missed menses Ordered: 07/03/2023 [facility] Comment on above: Ordered: 07/03/2023 Hepatitis B virus surface Ag [Presence] in Serum or Plasma by Immunoassay Hepatitis B surface antigen Lab Routine Missed menses Ordered: 07/03/2023 [facility] Comment on above: Ordered: 07/03/2023 Hepatitis C virus Ab [Presence] in Serum or Plasma by Immunoassay Hepatitis C antibody Lab Routine Missed menses Ordered: 07/03/2023 [facility] Comment on above: Ordered: 07/03/2023 HIV-1/HIV-2 antigen/antibody combination immunoassay HIV-1 and HIV-2 antibodies Lab Routine Missed menses Ordered: 07/03/2023 [facility] Comment on above: Ordered: 07/03/2023 Patient Education Common Breast Problems Pelvic Pain ED [facility] Work Phone: Patient referral [facility] Work Phone: Reagin Ab [Presence] in Serum by RPR RPR Lab Routine Missed menses Ordered: 07/03/2023 [facility] Comment on above: Ordered: 07/03/2023 Rubella antibody, IgG Rubella an tibody, IgG Lab Routine Missed menses Ordered: 07/03/2023 [facility] Comment on above: Ordered: 07/03/2023 End: 07-07-2020 US DUP ABD PEL RETRO SCROT LIMITED US DUP ABD PEL RETRO SCROT LIMITED Imaging STAT Once for 1 Occurrences starting 07/07/2020 until [facility]/07[facility] on above: Once for 1 Occurrenc es starting 07/07/2020 until 07/07/2020 US DUP ABD PEL RETRO SCROT LIMITED US DUP ABD PEL RETRO SCROT LIMITED Imaging STAT 07/08/2020 12:13 AM [facility] Payers Date Payer Category Payer Unknown BCBS BCBS xxxxxx [id number] 2023-Present [phone] [address] [place] [address] [id number] 2023 Unknown [id number] 2021 [facility] [id number] 2002 Unknown [id number] 2002 Unknown [id number] 2002 Unknown [id number] 2002 Unknown [id number] [id number] 2002 Unknown [id number] [id number] 2002 Unknown [id number] [id number] 2002 Unknown [id number] [id number] 2002 Unknown [id number] [id number] 2002 Unknown [id number] [id number] 2002 Unknown [id number] [id number] 2002 Unknown [id number] [id number] 2002 Unknown [id number] [id number] 2002 Unknown [id number] [id number] 2002 Unknown [id number] [id number] 2002 Unknown [id number] 1957 Medicaid [id number] 1959 Unknown [id number] Unknown [id number] Social History Date Type Detail Facility Start: 07-07-2020 End: 07-16-2023 Tobacco smoking status [facility]IS Never smoker [facility] Start: 07-07-2020 Tobacco use and exposure Never used [place] Start: 2002 Sex Assigned At Not on file [place] Exposure to SARS-CoV-2 (event) Not sure [place] Start: 10-19-2021 Tobacco smoking status [facility]IS Smoker (finding) [facility] Start: 2002 Sex Assigned At Female F [facility] Tobacco smoking status [facility] Tobacco smoking consumption unknown [facility] Start: 05-22-2023 [facility] Start: 07-16-2023 Gender identity Not on file [facility] Start: 07-16-2023 End: 07-17-2023 Alcohol intake Lifetime non-drinker (finding) [facility] Start: 07-16-2023 History of Social function [facility] Tobacco smoking status No Smoking Status Entered [facility] Functional Status Date Assessment Result Facility 10-26-2023 Functional Status N/A [facility] Clinical Notes 07-03-2023 to 10-26-2023 Chung Yousif DO - 07/17/2023 11:10 AM Costa Kilgore LPN - 07/03/2023 1:00 PM EST Note Date & Type Note Facility 10-26-2023 Note The following Patien t Education Materials have been given to the patient: EducationMaterial [facility] 10-26-2023 Hospital Discharg e instructions Patient [...] provider. Document Revised: 01/02/2022 Document Reviewed: 01/02/2022 [employer] Patient Education 2022 [employer]. 10/26/2023 03:10:04 Vaginal Bleeding During , Second [...] help with your regular activities. Medicines Take twin-ccp-kxtwkyi and prescription medicines only as told by [...] provider. Document Revised: 02/08/2021 Document Reviewed: 02/08/2021 [employer] Patient Education 2022 [employer]. 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 [...] your back during . General instructions Take ounn-vso-wprumcc and prescription medicines only as told by [...] care provider for managing back pain. Take tcvr-tiy-iaqbplq and prescription medicines only as told by [...] provider. Document Revised: 08/01/2021 Document Reviewed: 08/01/2021 [employer] Patient Education 2022 [employer]. Follow Up Care 10/25/2023 23:39:34 With:Chung YOUSIF Address: [address] , [place] [address] Business (1) When:11/04/2023 [facility] 10-25-2023 Evaluation + Plan note Diagnostic Tests PendingUrine Culture 10/25/23 [facility] 07-17-2023 History of Presen t illness Narrative Reason for Appointment: Patient ID: Teodoro Upton is a 23 y.o. female who presents for Routine Visit Patient presents today for Return OB appointment. Current Medications: has a current medication list which includes the following prescription(s): qvuxqzve-lqn-cb-fa and promethazine. Medical History: Active Ambulatory Problems Diagnosis Date Noted No Active Ambulatory Problems Resolved Ambulatory Problems Diagnosis Date Noted No Resolved Ambulatory Problems Past Medical History: Diagnosis Date ADD (attention deficit disorder) Asthma ([facility]) Family History Problem Relation Name Age of [...] Chung Yousif DO documented in this encounter [facility] 07-03-2023 History of Presen t illness [...] Problems Past Medical History: Diagnosis Date Asthma ([facility]) No family history on file. Social History [...] raw or undercooked meat, stay away from [facility], do not change litter boxes, eat [...] Evaluation note No assessment inform ation available [facility] Work Phone: Evaluation note Diagnosis Missed menses Nausea and vomiting, unspecified vomiting type documented in this encounter [facility]* Diagnosis First trimester state, incidental Vaginal bleeding in Threatened miscarriage Threatened , unspecified as to episode of care with uncertain viability, single or unspecified fetus documented in this encounter [facility] Narrative No data available for this section [facility] Additional Instructions Please follow up as we discussed so you can have your concerns further evaluated.[facility] Work Phone: Progress note No data available for this section [facility] Discharge Instructions * Instructions* Brenda Stoner, - 07/08/2020 [facility] ED Clinic List Healthcare Providers Services Day of Week/ Hours [place] [facility] [address] [facility] Pediatric Primary Care Adult Primary Care SENIOR CREDIT ANALYST//Specialty Clinics Friday 8:00a 4:30p [address] Adult Medicine, Pediatrics, SENIOR CREDIT ANALYST Friday 8:30a 4:30p [facility] Surgery [address] [facility] Friday 8:30a 11:00a [facility] [address] [facility] Adult Internal Medicine ([facility]) SENIOR CREDIT ANALYST Clinic Pediatric Clinic Friday, Friday, , Friday 8:00a 4:30p Friday 1:00p 4:30p Friday, Friday, 8:00a 5:00p; Friday 8:00a 12:30p Friday 1p 4p Friday, Friday, , Friday 8:30a 4:15p Friday 12:30p 4:15p Health Department [address] Pediatric Primary Care Adult Primary Care OB/ Friday, Friday 8a 12p 8a 4:45p [facility] [address] [place] [address] [place] [address] # Pre & Post Adoption Counseling Support / nutrition Care Reward Incentive Program [place] Location Fri, , Fri, Fri 10:00a 4:30p Thur 10:00a 7:30p E [place] Location Friday - Friday 10a 4:30p [facility] SENIOR CREDIT ANALYST [address] [facility] Adult Internal Medicine [address] [facility] Pediatrics [address] [facility], [address] Neuro / Headache [address] [facility] Friday 8:30a 5p [facility] [address] [facility] Fri, , , Fri 9:00a 4:30p Wed 1:00p 4:30p [facility] [address] [facility] [address] [facility] Friday 8:30a 5:00p [facility] [address] [facility] [address] Burn/Plastic, ENT, GI, Orthopedics, Surgical / Trauma, Urology, Vascular Friday 8:00 4:30p Call for an appointment [facility] [address] [facility] Adult Medicine, Eye Clinic, Dental Patient must be certified homeless Under age 18 not accepted Friday 8:00 4:30p [facility] [address] [facility] OB Friday, Friday, Friday, Friday 9a 5p 9a 6p Friday (OB only) [facility] [address] [facility] OB/ Friday 11a 7p , Fri, 9a 5p Friday 8a 4p 1st Friday 9a 1p Podiatry Clinic [address] [facility] Building [address] Friday 8:00 4:30 p [facility] [address] Free nurse visits [place] programs Counseling Class Call or walk in [facility] [place] [address] [place] Various Clinics 8a 5:30p [facility] Family Medicine [facility] [address] [facility], [address] [facility] Friday 8a 4:30p [facility] [address] [place], [place] [id number] [address] [place] [address] Friday 8a 4:30p Friday 8a 4:30p 8a 8p Outpatient Clinics [facility] [address] [facility] Friday 9a 5p Diabetic Education Services Call for an appointment [facility] Failure [facility] [address] [facility] Friday 8:30a 4p Dental Services [facility] [address] [facility] Must have source of income and must bring (2) recent check stubs to appointment By appointment only [facility] [address] Patient must be homeless, call for eligibility guidelines. Under age 18 NOT accepted Days and hours vary (Doors open at 8:30a day of week varies) Call for an appointment Miscellaneous Information [facility] Call for Help [phone] Call for an appointment H.E.L.P (Hospital Eligibility Link Program) toll free For financial assistance * Attachments The following attachments cannot be sent through Care Everywhere. * Bacterial Vaginosis (Slov[place]) * UTI (Urinary Tract Infection): Female ([place]ov[place]) * Vitamin D: General Info (Sl[place]) documented in this encounter Assessments Diagnosis BV [...] section and content) DATE CREATED AUTHOR 07/16/2020 [facility] DATE CREATED AUTHOR AUTHOR'S ORGANIZ ATION 09/07/2022 [facility] DATE CREATED AUTHOR AUTHOR'S ORGANIZ ATION 03/13/2023 [facility] DATE CREATED AUTHOR AUTHOR'S ORGANIZ ATION 10/27/2023 Lopez Braxton [facility] DATE CREATED AUTHOR AUTHOR'S ORGANIZ ATION 10/31/2023 Mathis Braxton [facility] DATE CREATED AUTHOR AUTHOR'S ORGANIZ ATION 01/03/2024 [facility] dical Specialists EPIC Care Teams [...] BE BASED ON THE PRIMARY CLINICAL RECORDS. [employer] provides no warranty or guarantee of the accuracy or completeness of information in this document.
[2024-01-23 17:10] VITALS: BP 107/51; PULSE 109
== END 2024-01-23 17:40 | disposition home or self-care (01) ==
LOC: FBCO 07:18 → FBC 17:02
PROVIDERS: Visit Provider Obstetrics & Gynecology
DX: O40.3XX0 Polyhydramnios, third trimester, not applicable or unspecified (principal)
CPT/HCPCS: 59025

== ENCOUNTER 2024-01-27 07:36 | Outpatient (OUT) | payer MEDICAID, SELFPAY ==
--- OUTSIDE RECORDS SUMMARY | 2024-01-27 07:40 | XMS_ITS | CCD ---
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 Name Role Phone Unavailable Primary Care Provider UnavailDAVID Ayers Attending Unavailable NO FAMILY, PHYSICIAN Primary Care Provider Unava ilMD Anders Herrera Jr Emergency Provider PAY ., DR GREGORY Admitting Unavailable PAY ., DR GREGORY Consulting Unavailable REQUEST, DR IBRAHIM LISTED Primary Care Unavaila ble PAY ., DR GREGORY Attending Unavailable SEKOU, PADDY Consulting Unavailable PAY ., DR GREGORY Attending [...] Florentino Attending Unavailable Fuentes Florentino Admitting Unavailable BENJACASEY GONGY Attending Unavailable HALIMA CULLEN Attending Unavailable BENJA, CHUNG Attending Unavailable EBNJA, CHUNG Attending Unavailable HALIMA CULLEN Attending Unavailable BENJA, CHUNG Attending Unavailable BENJA, CHUNG Attending Unavailable SUBHASH HALIMA Attending Unavailable SUBHASH HALIMA Attending Unavailable BENJA, CHUNG Attending Unavailable BENJA, CHUNG Attending Unavailable Allergies Allergy Classification Reported Allergen(s) Allergy Type Date of Onset Reaction(s) Facility (1 source) Latex Propensity to adverse reactions to drug 07-07-2020 [facility] [place], [place] Medications Current Medications Medication Drug [...] Refill(s) 0 Start Date: 10/26/23 Status: Ordered Ldjgxyqe-Zrs-Oe-FA ( 1 + IRON PO) (4 sources) Ugwhvjig-Wgk-Xd-FA ( 1 + IRON PO) Take by [...] Range Facility Nursing Assessmenton 024 Nursing Assessment [id number] 2#1.00TIFF [facility] C Urineon 10-28-2023 Bacteria identified [...] Locations R1: This test was performed at: [facility], [address] [place] [address], [address] [place] [address], [facility] Comment on above: Performed By: #### 2 [id number] #### [facility] [address] [place] [address] Consent for Treatmenton 10-01 Consent for Treatment [id number] #1.00TIFF [facility] Discharge Instructionson Discharge Instructions [id number] 7#1.00TIFF [facility] Inpatient Clinical Summaryon 10-26-2023 Inpatient Clinical Summary [address] [address] Clinical Summary Person Information Name: [facility] Age[facility] 23 Years : 2000 Sex: Female PCP: NONE, XXXX Marital Status: Single Phone: [phone] Race: or Ethnicity: Non- or Language: [place] Citizen Visit Id: Visit Reason: 24 WEEKS BLEEDING Speciality: Acuity: Obs Enc Type: OB Triage Med Service: Obstetrics Arrival: 10/25/2023 23:36:04 Discharge: 10/26/2023 03:30:56 Dispo Type: Home (Routine DC) Address: [address] [facility] [id number] Provider Notes: Diagnosis: Problems Active (10/26/2023) Smoker [...] Referring Physician: Follow up: With: [facility] [address] [place] [address] , Seth [place], [place] [id number] Business (1) In 9 days 11/04/2023 Patient Education Information: and Urinary Tract Infection; Vaginal Bleeding During , Second Trimester; Back Pain in Normal [facility] Inpatient Patient Summaryon 10-26-2023 Inpatient Patient Summary [address] [address] Patient Discharge Instructions PERSON INFORMATION Name: TEODORO UPTON Date of : 2000 Current Date: 10/26/2023 03:32:18 PHYSICIANS Admitting Physician: Mishel CHAVEZ, Fuentes Weaver Primary Care Physician: NONE, XXXX PCP Phone [...] test results: Follow up: With: Address: When: [facility], [address] [place] [address] [place] [address] Business (1) In 9 days [...] Always wi (more content not included)... Normal [facility] Insurance Correspondenceon 0 10-26-2023 Insurance Correspondence [id number] 8#1.00TIFF Normal [facility] UA with Cult Rflxon 10-26-19 24 Bacteria Auto Ql (U) Trace Normal Trace Fish [facility] Comment on above: Performed By: #### 4 [id number] #### [facility] [address] [place] [address] Bilirubin Ql (U) Negative Normal Negative [facility] Comment on above: Performed By: #### 4 [id number] #### [facility] [address] [place] [address] Clarity (U) Turbid Abnormal Clear [facility] Comment on above: Performed By: #### 4 [id number] #### [facility] [address] [place] [address] Color (U) Yellow Normal Yellow [facility] Comment on above: Result Comment: Micr oscopic readings are only performed on those samples that meet specific criteria set forth by [facility]. Performed By: #### 4 [id number] #### [facility] [address] [place] [address] Epithelial cells.squamous Auto (Urine sed) [#/Area] 5-8 Abnormal 0-2 [facility] Comment on above: Performed By: #### 4 [id number] #### [facility] [address] [place] [address] Glucose Ql (U) Negative Normal Negative [facility] Comment on above: Performed By: #### 4 [id number] #### [facility] [address] [place] [address] Hemoglobin Auto test strip (U) [Mass/Vol] Negative Normal Negative [facility] Comment on above: Performed By: #### 4 [id number] #### [facility] [address] [place] [address] Hyaline casts LM Ql (Urine sed) 0-3 Normal 0-3 [facility] Comment on above: Performed By: #### 4 [id number] #### [facility] [address] [place] [address] Ketones Auto test strip Ql (U) Negative Normal Negative [facility] Comment on above: Performed By: #### 4 [id number] #### [facility] [address] [place] [address] Leukocyte esterase Auto test strip Ql (U) 500 Gerald/uL Abnormal Negative [facility] Comment on above: Performed By: #### 4 [id number] #### [facility] [address] [place] [address] Mucus Auto Ql (U) Trace Normal Negative [facility] Comment on above: Performed By: #### 4 [id number] #### [facility] [address] [place] [address] Nitrite Auto test strip Ql (U) Negative Normal Negative [facility] Comment on above: Performed By: #### 4 [id number] #### [facility] [address] [place] [address] pH (U) 6.0 [pH] Invalid Interpretation Code 5.0-9.0 [facility] Comment on above: Performed By: #### 4 [id number] #### [facility] [address] [place] [address] Protein Ql (U) Trace Abnormal Negative [facility] Comment on above: Performed By: #### 4 [id number] #### [facility] [address] [place] [address] RBC Ql (U) 4-20 Abnormal 0-3 [facility] Comment on above: Performed By: #### 4 [id number] #### [facility] [address] [place] [address] Specific gravity (U) [Rel density] 1.030 Invalid Interpretation Code 1.005-1.030 [facility] Comment on above: Performed By: #### 4 [id number] #### [facility] [address] [place] [address] Urobilinogen (U) [Mass/Vol] Negative Normal Negative [facility] Comment on above: Performed By: #### 4 [id number] #### [facility] [address] [place] [address] WBC Auto (Urine sed) [#/Area] 16-25 Abnormal 0-5 [facility] Comment on above: Performed By: #### 4 [id number] #### [facility] [address] [place] [address] Type of Urine collection method Clean Catch Normal [facility] Comment on above: Performed By: #### 4 [id number] #### [facility] [address] [place] [address] URINALYSISOrdered By: SYSTEM SYSTEM on 10-25-2023 Bacteria [...] that meet specific criteria set forth by [facility]. Epithelial cells.squamous Auto (Urine sed) [...] Urobilinogen (U) [Mass/Vol] Negative Normal Negativemg/d L [facility] UA Auto SS WBC Auto (Urine sed) [#/Area] 16-25 graded/HPF Invalid Interpretation Code 0-5graded/HP F [facility] UA Auto SS URINALYSISOrdered By: Elijah Hernandez on 10-25-2023 UA Spec Desc Clean Catch (10/25/23 11:53 PM) Normal [facility] UA Auto SS Urinalysis macro (dipstick) panel (U)on 07-17-2023 Bilirubin, UA Negative Negative - 4(70) +++ mg/dL [facility] Blood, UA Negative Negative - 50 William/mcL [facility] Clarity, UA Clear [facility] Color, UA Yellow [facility] Glucose, UA Negative Negative - 1999(110) ++++ mg/dL [facility] Interpretation and review of laboratory results Abnormal [facility] Ketones, UA Negative Negative - 160(16) ++++ mg/dL [facility] Leukocytes, UA Positive Negative - 500+++ Gerald/mcL [facility] Nitrite, UA Negative Negative - Positive [facility] pH, UA 7.0 5 - 9 [facility] Protein, UA Negative Negative - 1999(20) ++++ mg/dL [facility] Spec Grav, UA 1.020 1 - 1.03 [facility] Urobilinogen, UA 0.2 0.2 - 12 mg/dL [facility] HCG ( test) Ql (U)o n 07-03-2023 Interpretation and review of laboratory results Abnormal [facility] Preg Test, Ur Negative [facility] Urinalysis macro (dipstick) panel (U)on 07-03-2023 Bilirubin, UA Negative Negative - 4(70) +++ mg/dL [facility] Blood, UA Negative Negative - 50 William/mcL [facility] Clarity, UA Clear [facility] Color, UA Yellow [facility] Glucose, UA Negative Negative - 1999(110) ++++ mg/dL [facility] Interpretation and review of laboratory results Normal [facility] Ketones, UA Negative Negative - 160(16) ++++ mg/dL [facility] Leukocytes, UA Negative Negative - 500+++ Gerald/mcL [facility] Nitrite, UA Negative Negative - Positive [facility] pH, UA 5.5 5 - 9 [facility] Protein, UA Negative Negative - 2000(20) ++++ mg/dL [facility] Spec Grav, UA 1.010 1 - 1.03 [facility] Urobilinogen, UA 1.0 0.2 - 12 mg/dL [facility] XR FOOT RT MIN 3 VIEWSon XR [...] PADDY SAPP Date: 2022-08-30 14:42 Normal [facility] CBC AUTO DIFFon 06-28-2022 BASO # 0.0 103/ul Normal 0.0-0.1 [facility] Comment on above: Performed By: #### C BC #### [facility] [address] [address] [address] Jerald Poon Basophils/100 WBC (Bld) 0.3 % Normal 0.2-2.0 [facility] Comment on above: Performed By: #### C BC #### [facility] [address] [address] [address] Jerald Poon EO # 0.1 103/ul Normal 0.0-0.7 [facility] Comment on above: Performed By: #### C BC #### [facility] [address] [address] [address] Jerald Poon Eosinophils/100 WBC (Bld) 1.1 % Normal 0.9-7.0 [facility] Comment on above: Performed By: #### C BC #### [facility] [address] [place] [address] Dr. Jerald Poon Erythrocyte distribution width (RBC) [Ratio] 14.5 % Normal 11.0-15.0 [facility] Comment on above: Performed By: #### C BC #### [facility] [address] [place] [address] Dr. Jerald Poon Hematocrit (Bld) [Volume fraction] 36.7 % Normal 36.0-48.0 [facility] Comment on above: Performed By: #### C BC #### [facility] [address] [place] [address] Dr. Jerald Poon Hemoglobin (Bld) [Mass/Vol] 13.0 g/dL Normal 12.0-16.0 [facility] Comment on above: Performed By: #### C BC #### [facility] [address] [place] [address] Dr. Jerald Poon IG # 0.04 10e3/ul Critically high 0.00-0.03 [facility] Comment on above: Performed By: #### C BC #### [facility] [address] [place] [address] Dr. Jerald Poon IG % 0.3 % Normal 0.0-0.5 [facility] Comment on above: Performed By: #### C BC #### [facility] [address] [place] [address] Dr. Jerald Poon LYMPH # 3.0 103/ul Normal 1.2-3.8 [facility] Comment on above: Performed By: #### C BC #### [facility] [address] [place] [address] Dr. Jerald Poon Lymphocytes/100 WBC (Bld) 26.2 % Normal 20.5-60.0 [facility] Comment on above: Performed By: #### C BC #### [facility] [address] [place] [address] Dr. Jerald Poon MANUAL DIFF REQ NO Normal [facility] Comment on above: Performed By: #### C BC #### [facility] [address] [address] [address] Jerald Poon MCH (RBC) [Entitic mass] 27.1 pg Normal 26.7-34.0 [facility] Comment on above: Performed By: #### C BC #### [facility] [address] [place] [address] Dr. Jerald Poon MCHC (RBC) [Mass/Vol] 35.4 g/dL Critically high 29.9-35.2 [facility] Comment on above: Performed By: #### C BC #### [facility] [address] [place] [address] Dr. Jerald Poon MCV (RBC) [Entitic vol] 76.6 fL Critically low 81.0-99.0 [facility] Comment on above: Performed By: #### C BC #### [facility] [address] [place] [address] Dr. Jerald Poon MONO # 0.8 103/ul Normal 0.3-0.8 [facility] Comment on above: Performed By: #### C BC #### [facility] [address] [place] [address] Dr. Jerald Poon Monocytes/100 WBC (Bld) 7.0 % Normal 1.7-12.0 [facility] Comment on above: Performed By: #### C BC #### [facility] [address] [place] [address] Dr. Jerald Poon NEUT # 7.5 103/ul Critically high 1.4-6.5 [facility] Comment on above: Performed By: #### C BC #### [facility] [address] [place] [address] Dr. Jerald Poon Neutrophils/100 WBC (Bld) 65.1 % Normal 43.0-75.0 [facility] Comment on above: Performed By: #### C BC #### [facility] [address] [place] [address] Dr. Jerald Poon Platelet mean volume (Bld) [Entitic vol] 10.0 fL Normal 9.5-13.5 [facility] Comment on above: Performed By: #### C BC #### [facility] [address] [place] [address] Dr. Jerald Poon PLT 387 103/ul Normal 150-450 [facility] Comment on above: Performed By: #### C BC #### [facility] [address] [place] [address] Dr. Jerald Poon RBC 4.79 106/ul Normal 4.20-5.40 [facility] Comment on above: Performed By: #### C BC #### [facility] [address] [place] [address] Dr. Jerald Poon WBC 11.6 103/ul Critically high 4.0-11.0 [facility] Comment on above: Performed By: #### C BC #### [facility] [address] [place] [address] Dr. Jerald Poon CULTURE URINEon 06-28-2022 CULTURE URINE Culture Observations: LIGHT GROWTH OF MIXED GENITAL ZACARIAS. NO POTENTIAL PATHOGENS SEEN. Normal [facility] Comment on above: Performed By: #### U RCX #### [facility] [address] [place] [address] Dr. Jerald Poon ER URINE PROFILEon 3 Bilirubin Ql (U) Negative Normal NEGATIVE [facility] Comment on above: Performed By: #### U MICRO, ERUR #### [facility] [address] [place] [address] Dr. Jerald Poon Clarity (U) CLEAR Normal CLEAR [facility] Comment on above: Performed By: #### U MICRO, ERUR #### [facility] [address] [place] [address] Dr. Jerald Poon Color (U) YELLOW Normal YELLOW [facility] Comment on above: Performed By: #### U MICRO, ERUR #### [facility] [address] [place] [address] Dr. Jerald Poon ERUNORBERTO A micrscopic examination will be performed if indicated. Normal [facility] Comment on above: Performed By: #### U MICRO, ERUR #### [facility] [address] [place] [address] Dr. Jerald Poon Glucose Ql (U) Negative Normal NEGATIVE [facility] Comment on above: Performed By: #### U MICRO, ERUR #### [facility] [address] [address] [address] Jerald Poon Hemoglobin Ql (U) Negative Normal NEGATIVE [facility] Comment on above: Performed By: #### U MICRO, ERUR #### [facility] [address] [address] [address] Jerald Poon Ketones Ql (U) 40 mg/dl Abnormal NEGATIVE [facility] Comment on above: Performed By: #### U MICRO, ERUR #### [facility] [address] [address] [address] Jerald Poon LEUKOCYTES TRACE Abnormal NEGATIVE [facility] Comment on above: Performed By: #### U MICRO, ERUR #### [facility] [address] [place] [address] Dr. Jerald Poon Nitrite Ql (U) Negative Normal NEGATIVE [facility] Comment on above: Performed By: #### U MICRO, ERUR #### [facility] [address] [place] [address] Dr. Jerald Poon pH (U) 6.0 [pH] Normal 5-9 [facility] Comment on above: Performed By: #### U MICRO, ERUR #### [facility] [address] [place] [address] Dr. Jerald Poon SPEC GRAVITY >=1.030 Abnormal 1.005-<=1.02 5 [facility] Comment on above: Performed By: #### U MICRO, ERUR #### [facility] [address] [place] [address] Dr. Jerald Poon UA PROTEIN Negative Normal NEGATIVE/ TRACE [facility] Comment on above: Performed By: #### U MICRO, ERUR #### [facility] [address] [place] [address] Dr. Jerald Poon UR MICRO IND INDICATED Normal [facility] Comment on above: Performed By: #### U MICRO, ERUR #### [facility] [address] [place] [address] Dr. Jerald Poon Urobilinogen Qn (U) 0.2 {Lyly'U}/dL Normal 0.2 - 1. 0 [facility] Comment on above: Performed By: #### U MICRO, ERUR #### [facility] [address] [place] [address] Dr. Jerald Poon PREG QUANT HCGon 06-28-2022 HCG QUANT <1 [facility] Comment on above: Performed By: #### P REGQNT #### [facility] [address] [place] [address] Dr. Jerald Poon HCG RANGE SEE BELOW Normal [facility] Comment on above: Result Comment: 5-50 0.2-1 WEEK 50-500 1-2 WEEKS 100-5,000 2-3 WEEKS 500-10,000 3-4 WEEKS 1,000-50,000 4-5 WEEKS 10,000-100,000 5-6 WEEKS 15,000-200,000 6-8 WEEKS 10,000-100,000 2-3 MONTHS Performed By: #### P REGQNT #### [facility] [address] [place] [address] Dr. Jerald Poon PROF CHEM 8 (BAS METB)on Anion gap [Moles/Vol] 14.0 mmol/L Normal [facility] Comment on above: Performed By: #### C BC #### [facility] [address] [place] [address] Dr. Jerald Poon Calcium [Mass/Vol] 9.6 mg/dL Normal 8.5-10.1 [facility] Comment on above: Performed By: #### C BC #### [facility] [address] [place] [address] Dr. Jerald Poon Chloride [Moles/Vol] 101 mmol/L Normal 98-107 [facility] Comment on above: Performed By: #### C BC #### [facility] [address] [place] [address] Dr. Jerald Poon CO2 [Moles/Vol] 25.4 mmol/L Normal 21.0-32.0 [facility] Comment on above: Performed By: #### C BC #### [facility] [address] [address] [address] Jerald Poon Creatinine [Mass/Vol] 0.92 mg/dL Normal 0.55-1.02 [facility] Comment on above: Performed By: #### C BC #### [facility] [address] [address] [address] Jerald Poon EGFR-AF BOLIVIAN >60 Normal >=60 [facility] Comment on above: Performed By: #### C BC #### [facility] [address] [address] [address] Jerald Poon EGFR-NON AF BOLIVIAN >60 Normal >=60 [facility] Comment on above: Performed By: #### C BC #### [facility] [address] [place] [address] Dr. Jerald Poon Glucose [Mass/Vol] 101 mg/dL Normal 74-106 [facility] Comment on above: Performed By: #### C BC #### [facility] [address] [place] [address] Dr. Jerald Poon Potassium [Moles/Vol] 3.4 mmol/L Critically low 3.5-5.1 [facility] Comment on above: Performed By: #### C BC #### [facility] [address] [place] [address] Dr. Jerald Poon Sodium [Moles/Vol] 137 mmol/L Normal 136-145 [facility] Comment on above: Performed By: #### C BC #### [facility] [address] [place] [address] Dr. Jerald Poon Urea nitrogen [Mass/Vol] 11.0 mg/dL Normal 7.0-18.0 [facility] Comment on above: Performed By: #### C BC #### [facility] [address] [place] [address] Dr. Jerald Poon Urea nitrogen/Creatinine [Mass ratio] 12.0 mg/mg [facility] Comment on above: Performed By: #### C BC #### [facility] [address] [place] [address] Dr. Jerald Poon TSHon 06-28-2022 TSH 1.319 uIU/mL Normal 0.358-3.740 [facility] Comment on above: Performed By: #### C BC #### [facility] [address] [place] [address] Dr. Jerald Poon URINE MICROSCOPIC ONLYon BACTERIA SMALL Abnormal NONE SEEN [facility] Comment on above: Performed By: #### U MICRO, ERUR #### [facility] [address] [place] [address] Dr. Jerald Poon Bacteria identified Cx Nom (U) INDICATED Normal [facility] Comment on above: Performed By: #### U MICRO, ERUR #### [facility] [address] [place] [address] Dr. Jerald Poon CAST NONE SEEN Normal NONE SEEN [facility] Comment on above: Performed By: #### U MICRO, ERUR #### [facility] [address] [place] [address] Dr. Jerald Poon Crystals LM Nom (Urine sed) NONE SEEN Normal NONE SEEN [facility] Comment on above: Performed By: #### U MICRO, ERUR #### [facility] [address] [place] [address] Dr. Jerald Poon Epithelial cells LM Ql (Urine sed) FEW Abnormal NONE SEEN /RARE [facility] Comment on above: Performed By: #### U MICRO, ERUR #### [facility] [address] [place] [address] Dr. Jerald Poon MUCOUS NONE SEEN Normal NONE SEEN [facility] Comment on above: Performed By: #### U MICRO, ERUR #### [facility] [address] [place] [address] Dr. Jerald Poon RBC NONE SEEN Abnormal 0-2 [facility] Comment on above: Performed By: #### U MICRO, ERUR #### [facility] [address] [place] [address] Dr. Jerald Poon WBC 2-5 Abnormal NONE SEEN [facility] Comment on above: Performed By: #### U MICRO, ERUR #### [facility] [address] [address] [address] Jerald Poon CBC AUTO DIFFon 04-01-2022 BASO # 0.0 103/ul Normal 0.0-0.1 [facility] Comment on above: Performed By: #### C BC #### [facility] [address] [place] [address] Dr. Jerald Poon Basophils/100 WBC (Bld) 0.5 % Normal 0.2-2.0 [facility] Comment on above: Performed By: #### C BC #### [facility] [address] [place] [address] Dr. Jerald Poon EO # 0.1 103/ul Normal 0.0-0.7 [facility] Comment on above: Performed By: #### C BC #### [facility] [address] [place] [address] Dr. Jerald Poon Eosinophils/100 WBC (Bld) 1.7 % Normal 0.9-7.0 [facility] Comment on above: Performed By: #### C BC #### [facility] [address] [place] [address] Dr. Jerald Poon Erythrocyte distribution width (RBC) [Ratio] 14.2 % Normal 11.0-15.0 [facility] Comment on above: Performed By: #### C BC #### [facility] [address] [place] [address] Dr. Jerald Poon Hematocrit (Bld) [Volume fraction] 36.7 % Normal 36.0-48.0 [facility] Comment on above: Performed By: #### C BC #### [facility] [address] [place] [address] Dr. Jerald Poon Hemoglobin (Bld) [Mass/Vol] 12.1 g/dL Normal 12.0-16.0 [facility] Comment on above: Performed By: #### C BC #### [facility] [address] [place] [address] Dr. Jerald Poon IG # 0.01 10e3/ul Normal 0.00-0.03 [facility] Comment on above: Performed By: #### C BC #### [facility] [address] [place] [address] Dr. Jerald Poon IG % 0.1 % Normal 0.0-0.5 [facility] Comment on above: Performed By: #### C BC #### [facility] [address] [place] [address] Dr. Jerald Poon LYMPH # 2.3 103/ul Normal 1.2-3.8 [facility] Comment on above: Performed By: #### C BC #### [facility] [address] [place] [address] Dr. Jerald Poon Lymphocytes/100 WBC (Bld) 30.8 % Normal 20.5-60.0 [facility] Comment on above: Performed By: #### C BC #### [facility] [address] [place] [address] Dr. Jerald Poon MANUAL DIFF REQ NO Normal [facility] Comment on above: Performed By: #### C BC #### [facility] [address] [place] [address] Dr. Jerald Poon MCH (RBC) [Entitic mass] 27.3 pg Normal 26.7-34.0 [facility] Comment on above: Performed By: #### C BC #### [facility] [address] [place] [address] Dr. Jerald Poon MCHC (RBC) [Mass/Vol] 33.0 g/dL Normal 29.9-35.2 [facility] Comment on above: Performed By: #### C BC #### [facility] [address] [place] [address] Dr. Jerald Poon MCV (RBC) [Entitic vol] 82.7 fL Normal 81.0-99.0 [facility] Comment on above: Performed By: #### C BC #### [facility] [address] [place] [address] Dr. Jerald Poon MONO # 0.8 103/ul Normal 0.3-0.8 [facility] Comment on above: Performed By: #### C BC #### [facility] [address] [place] [address] Dr. Jerald Poon Monocytes/100 WBC (Bld) 10.6 % Normal 1.7-12.0 [facility] Comment on above: Performed By: #### C BC #### [facility] [address] [place] [address] Dr. Jerald Poon NEUT # 4.2 103/ul Normal 1.4-6.5 [facility] Comment on above: Performed By: #### C BC #### [facility] [address] [place] [address] Dr. Jerald Poon Neutrophils/100 WBC (Bld) 56.3 % Normal 43.0-75.0 [facility] Comment on above: Performed By: #### C BC #### [facility] [address] [place] [address] Dr. Jerald Poon Platelet mean volume (Bld) [Entitic vol] 10.2 fL Normal 9.5-13.5 [facility] Comment on above: Performed By: #### C BC #### [facility] [address] [place] [address] Dr. Jerald Poon PLT 375 103/ul Normal 150-450 [facility] Comment on above: Performed By: #### C BC #### [facility] [address] [place] [address] Dr. Jerald Poon RBC 4.44 106/ul Normal 4.20-5.40 [facility] Comment on above: Performed By: #### C BC #### [facility] [address] [place] [address] Dr. Jerald Poon WBC 7.5 103/ul Normal 4.0-11.0 [facility] Comment on above: Performed By: #### C BC #### [facility] [address] [place] [address] Dr. Jerald Poon ER URINE PROFILEon 2 Bilirubin Ql (U) Negative Normal NEGATIVE [facility] Comment on above: Performed By: #### C BC #### [facility] [address] [place] [address] Dr. Jerald Poon Clarity (U) CLEAR Normal CLEAR [facility] Comment on above: Performed By: #### C BC #### [facility] [address] [address] [address] Jerald Poon Color (U) YELLOW Normal YELLOW [facility] Comment on above: Performed By: #### C BC #### [facility] [address] [address] [address] Jerald CEBALLOS A micrscopic examination will be performed if indicated. Normal [facility] Comment on above: Performed By: #### C BC #### [facility] [address] [address] [address] Jerald Poon Glucose Ql (U) Negative Normal NEGATIVE [facility] Comment on above: Performed By: #### C BC #### [facility] [address] [place] [address] Dr. Jerald Poon Hemoglobin Ql (U) Negative Normal NEGATIVE [facility] Comment on above: Performed By: #### C BC #### [facility] [address] [place] [address] Dr. Jerald Poon Ketones Ql (U) Negative Normal NEGATIVE [facility] Comment on above: Performed By: #### C BC #### [facility] [address] [place] [address] Dr. Jerald Poon LEUKOCYTES Negative Normal NEGATIVE [facility] Comment on above: Performed By: #### C BC #### [facility] [address] [place] [address] Dr. Jerald Poon Nitrite Ql (U) Negative Normal NEGATIVE [facility] Comment on above: Performed By: #### C BC #### [facility] [address] [place] [address] Dr. Jerald Poon pH (U) 7.0 [pH] Normal 5-9 [facility] Comment on above: Performed By: #### C BC #### [facility] [address] [place] [address] Dr. Jerald Poon SPEC GRAVITY 1.025 Normal 1.005-<=1.02 5 [facility] Comment on above: Performed By: #### C BC #### [facility] [address] [place] [address] Dr. Jerald Poon UA PROTEIN Negative Normal NEGATIVE/ TRACE [facility] Comment on above: Performed By: #### C BC #### [facility] [address] [address] [address] Jerald Poon UR MICRO IND NOT INDICATED Normal [facility] Comment on above: Performed By: #### C BC #### [facility] [address] [place] [address] Dr. Jerald Poon Urobilinogen Qn (U) 1.0 {Lyly'U}/dL Normal 0.2 - 1. 0 [facility] Comment on above: Performed By: #### C BC #### [facility] [address] [place] [address] Dr. Jerald Poon PREG QUANT HCGon 04-01-2022 HCG QUANT 1 mIU/mL Normal [facility] Comment on above: Performed By: #### P REGQNT #### [facility] [address] [place] [address] Dr. Jerald Poon HCG RANGE SEE BELOW Normal [facility] Comment on above: Result Comment: 5-50 0.2-1 WEEK 50-500 1-2 WEEKS 100-5,000 2-3 WEEKS 500-10,000 3-4 WEEKS 1,000-50,000 4-5 WEEKS 10,000-100,000 5-6 WEEKS 15,000-200,000 6-8 WEEKS 10,000-100,000 2-3 MONTHS Performed By: #### P REGQNT #### [facility] [address] [place] [address] Dr. Jerald Poon PROF 14(COMP METB)on 022 Albumin [Mass/Vol] 3.6 g/dL Normal 3.4-5.0 [facility] Comment on above: Performed By: #### C MP #### [facility] [address] [place] [address] Dr. Jerald Poon Albumin/Globulin [Mass ratio] 0.8 {ratio} Normal [facility] Comment on above: Performed By: #### C MP #### [facility] [address] [address] [address] Jerald Poon ALP [Catalytic activity/Vol] 65 U/L Normal 46-116 [facility] Comment on above: Performed By: #### C MP #### [facility] [address] [place] [address] Dr. Jerald Poon ALT [Catalytic activity/Vol] 22 U/L Normal 14-59 [facility] Comment on above: Performed By: #### C MP #### [facility] [address] [address] [address] Jerald Poon Anion gap [Moles/Vol] 10.3 mmol/L Normal Th e [facility] Comment on above: Performed By: #### C MP #### [facility] [address] [place] [address] Dr. Jerald Poon AST [Catalytic activity/Vol] 14 U/L Critically low 15-37 [facility] Comment on above: Performed By: #### C MP #### [facility] [address] [place] [address] Dr. Jerald Poon Bilirubin [Mass/Vol] 0.1 mg/dL Critically low 0.2-1.0 [facility] Comment on above: Performed By: #### C MP #### [facility] [address] [place] [address] Dr. Jerald Poon Calcium [Mass/Vol] 8.6 mg/dL Normal 8.5-10.1 [facility] Comment on above: Performed By: #### C MP #### [facility] [address] [place] [address] Dr. Jerald Poon Chloride [Moles/Vol] 104 mmol/L Normal 98-107 [facility] Comment on above: Performed By: #### C MP #### [facility] [address] [address] [address] Jerald Poon CO2 [Moles/Vol] 28.1 mmol/L Normal 21.0-32.0 [facility] Comment on above: Performed By: #### C MP #### [facility] [address] [place] [address] Dr. Jerald Poon Creatinine [Mass/Vol] 0.99 mg/dL Normal 0.55-1.02 [facility] Comment on above: Performed By: #### C MP #### [facility] [address] [address] [address] Jerald Poon EGFR-AF BOLIVIAN >60 Normal >=60 [facility] Comment on above: Performed By: #### C MP #### [facility] [address] [address] [address] Jerald Poon EGFR-NON AF BOLIVIAN >60 Normal >=60 [facility] Comment on above: Performed By: #### C MP #### [facility] [address] [address] [address] Jerald Poon Globulin (S) [Mass/Vol] 4.5 g/dL Normal [facility] Comment on above: Performed By: #### C MP #### [facility] [address] [place] [address] Dr. Jerald Poon Glucose [Mass/Vol] 94 mg/dL Normal 74-106 [facility] Comment on above: Performed By: #### C MP #### [facility] [address] [address] [address] Jerald Poon Potassium [Moles/Vol] 3.4 mmol/L Critically low 3.5-5.1 [facility] Comment on above: Performed By: #### C MP #### [facility] [address] [address] [address] Jerald Poon Protein [Mass/Vol] 8.1 g/dL Normal 6.4-8.2 [facility] Comment on above: Performed By: #### C MP #### [facility] [address] [address] [address] Jerald Poon Sodium [Moles/Vol] 139 mmol/L Normal 136-145 [facility] Comment on above: Performed By: #### C MP #### [facility] [address] [address] [address] Jerald Poon Urea nitrogen [Mass/Vol] 8.0 mg/dL Normal 7.0-18.0 [facility] Comment on above: Performed By: #### C MP #### [facility] [address] [place], [place] [address] Dr. Jerald Poon Urea nitrogen/Creatinine [Mass ratio] 8.1 mg/mg Normal [facility] Comment on above: Performed By: #### C MP #### [facility] [address] [place], [place] [address] Dr. Jerald Poon US PELVIS TRANSVAGon 022 [...] by: LUH MANRIQUE Date: 2022-04-01 21:55 [facility] Automated erythrocytes count in urine sediment (number/area)Ordered By: Anders Sesay on 10-19-2021 RBC Auto (Urine sed) [#/Area] 1-2 [HPF] [facility] Automated leukocytes count i n urine sediment (number/area)Ordered By: Anders Sesay on 10-19-2021 WBC Auto (Urine sed) [#/Area] 3-4 [HPF] [facility] Basophils Auto (Bld) [#/Vol] Ordered By: Anders Sesay on 10-19-2021 Basophils (Bld) [#/Vol] 0.1 10*3/uL 0.0-0.2 [facility] Basophils/100 WBC Auto (Bld) Ordered By: Anders Sesay on 10-19-2021 Basophils/100 WBC (Bld) 0.6 % [facility] Bilirubin Test strip Ql (U)O rdered By: Anders Sesay on 10-19-2021 Bilirubin Ql (U) Negative Negative [facility] Blood hemoglobin measurement (mass/volume)Ordered By: Anders Sesay on 10-19-2021 Hemoglobin (Bld) [Mass/Vol] 13.2 g/dL 11.8-15.4 [facility] Blood leukocytes automated c ount (number/volume)Ordered By: Anders Sesay on 10-19-2021 WBC (Bld) [#/Vol] 9.1 10*3/uL 4.5-11.0 [facility] Body fluid albumin measureme nt (mass/volume)Ordered By: Anders Sesay on 10-19-2021 Albumin (Body fld) [Mass/Vol] 3.8 g/dL 3.2-5.5 [facility] Color Auto (U)Ordered By: Jason Sesay on 10-19-2021 Color (U) Yellow Yellow [facility] Creatinine and Glomerular fi ltration rate.predicted panel (S/P/Bld)Ordered By: Anders Sesay on 10-19-2021 Creatinine [Mass/Vol] 0.87 mg/dL 0.44-1.03 [facility] Eosinophils Auto (Bld) [#/Vo l]Ordered By: Anders Sesay on 10-19-2021 Eosinophils (Bld) [#/Vol] 0.1 10*3/uL 0.0-0.45 [facility] Eosinophils/100 WBC Auto (Bl d)Ordered By: Anders Sesay on 10-19-2021 Eosinophils/100 WBC (Bld) 0.9 % [facility] Erythrocyte distribution wid th Auto (RBC) [Ratio]Ordered By: Anders Sesay on 10-19-2021 Erythrocyte distribution width (RBC) [Ratio] 16.4 % 11.9-15.3 [facility] Estimated glomerular filtrat ion rate (GFR) non- AmericanOrdered By: Anders Sesay on 10-19-2021 GFR/1.73 sq M.predicted among non-blacks MDRD (S/P/Bld) [Vol rate/Area] > 60 mL/Min [facility] Globulin Calc (S) [Mass/Vol] Ordered By: Anders Sesay on 10-19-2021 Globulin (S) [Mass/Vol] 4.3 g/dL [facility] HCG ( test) IA.rapi d Ql (U)Ordered By: Anders Sesay on 10-19-2021 HCG ( test) Ql (U) Negative [facility] Hematocrit Auto (Bld) [Volum e fraction]Ordered By: Anders Sesay on 10-19-2021 Hematocrit (Bld) [Volume fraction] 40.2 % 34.0-46.4 [facility] Ketones Auto test strip (U) [Mass/Vol]Ordered By: Anders Sesay on 10-19-2021 Ketones (U) [Mass/Vol] Negative Negative [facility] - Hematology and Cell countsOrdered By: Anders Sesay on 10-19-2021 Nucleated RBC/100 WBC (Bld) [Ratio] 0.2 % 0-0.5 [facility] - UrinalysisOrder ed By: Anders Sesay on 10-19-2021 Hyaline casts LM Ql (Urine sed) 0-8 [LPF] [facility] Lymphocytes Auto (Bld) [#/Vo l]Ordered By: Anders Sesay on 10-19-2021 Lymphocytes (Bld) [#/Vol] 2.4 10*3/uL 1.00-4.8 [facility] Lymphocytes/100 WBC Auto (Bl d)Ordered By: Anders Sesay on 10-19-2021 Lymphocytes/100 WBC (Bld) 26.7 % [facility] MCH Auto (RBC) [Entitic mass ]Ordered By: Anders Sesay on 10-19-2021 MCH (RBC) [Entitic mass] 26.3 pg 24.7-34.3 [facility] MCHC Auto (RBC) [Mass/Vol]Or dered By: Anders Sesay on 10-19-2021 MCHC (RBC) [Mass/Vol] 32.9 g/dL 32.0-35.0 [facility] MCV Auto (RBC) [Entitic vol] Ordered By: Anders Sesay on 10-19-2021 MCV (RBC) [Entitic vol] 80.1 fL 80-100 [facility] Monocytes Auto (Bld) [#/Vol] Ordered By: Anders Sesay on 10-19-2021 Monocytes (Bld) [#/Vol] 0.7 10*3/uL 0.0-0.8 [facility] Monocytes/100 WBC Auto (Bld) Ordered By: Anders Sesay on 10-19-2021 Monocytes/100 WBC (Bld) 7.6 % [facility] Neutrophils Auto (Bld) [#/Vo l]Ordered By: Anders Sesay on 10-19-2021 Neutrophils (Bld) [#/Vol] 5.8 10*3/uL 1.8-7.7 [facility] Neutrophils/100 WBC Auto (Bl d)Ordered By: Anders Sesay on 10-19-2021 Neutrophils/100 WBC (Bld) 64.2 % [facility] Nitrite Test strip Ql (U)Ord ered By: Anders Sesay on 10-19-2021 Nitrite Ql (U) Negative Negative [facility] No Panel InformationOrdered By: Anders Sesay on 10-19-2021 Estimated GFR () > 60 mL/Min [facility] Comment on above: GFR estimated refere nce range: According to KDOQI guidelines, <60 ml/min/1.73m2 is sufficient to diagnose a patient with chronic kidney disease. Pharmacy Creatinine Clearance (Chem 147.41 [facility] Platelet mean volume Auto (B ld) [Entitic vol]Ordered By: Anders Sesay on 10-19-2021 Platelet mean volume (Bld) [Entitic vol] 8.6 fL 6.3-10.7 [facility] Platelets Auto (Bld) [#/Vol] Ordered By: Anders Sesay on 10-19-2021 Platelets (Bld) [#/Vol] 395 10*3/uL 150-450 [facility] Protein Auto test strip (U) [Mass/Vol]Ordered By: Anders Sesay on 10-19-2021 Protein (U) [Mass/Vol] Negative Negative [facility] Protein [Mass/volume] in Ser um or PlasmaOrdered By: Anders Sesay on 10-19-2021 Protein [Mass/Vol] 8.1 g/dL 6.1-7.9 [facility] RBC Auto (Bld) [#/Vol]Ordere d By: Anders Sesay on 10-19-2021 RBC (Bld) [#/Vol] 5.02 10*6/uL 3.60-5.00 [facility] Serum or plasma alanine ayoub otransferase measurement without P-5'-P (enzymatic activiOrdered By: Anders Sesay on 10-19-2021 ALT No additional P-5'-P [Catalytic activity/Vol] 20 U/L 10-60 [facility] Serum or plasma albumin/glob ulin mass ratioOrdered By: Anders Sesay on 10-19-2021 Albumin/Globulin [Mass ratio] 0.9 {ratio} [facility] Serum or plasma alkaline cosmo sphatase measurement (enzymatic activity/volume)Ordered By: Anders Sesay on 10-19-2021 ALP [Catalytic activity/Vol] 55 U/L 32-92 [facility] Serum or plasma aspartate am inotransferase measurement (enzymatic activity/volume)Ordered By: Anders Sesay on 10-19-2021 AST [Catalytic activity/Vol] 17 U/L 10-42 [facility] Serum or plasma calcium joann urement (mass/volume)Ordered By: Anders Sesay on 10-19-2021 Calcium [Mass/Vol] 9.1 mg/dL 8.2-10.2 [facility] Serum or plasma chloride adan surement (moles/volume)Ordered By: Anders Sesay on 10-19-2021 Chloride [Moles/Vol] 103 mmol/L 95-114 [facility] Serum or plasma glucose joann urement (mass/volume)Ordered By: Anders Sesay on 10-19-2021 Glucose [Mass/Vol] 105 mg/dL 70-100 [facility] Comment on above: ADA recommended refe rence range Random Glucose Reference Range is dependent on time and content of last meal. Glucose of more than 200 mg/dL in a nonstressed, ambulatory subject supports the diagnosis of Diabetes Mellitus. Serum or plasma potassium me asurement (moles/volume)Ordered By: Anders Sesay on 10-19-2021 Potassium [Moles/Vol] 3.7 mmol/L 3.5-5.1 [facility] Serum or plasma sodium measu rement (moles/volume)Ordered By: Anders Sesay on 10-19-2021 Sodium [Moles/Vol] 137 mmol/L 136-146 [facility] Serum or plasma total biliru bin measurement (mass/volume)Ordered By: Anders Sesay on 10-19-2021 Bilirubin [Mass/Vol] 0.3 mg/dL 0.3-1.2 [facility] Serum or plasma total carbon dioxide measurement (moles/volume)Ordered By: Anders Sesay on 10-19-2021 CO2 [Moles/Vol] 24.2 mmol/L 22.0-30.0 [facility] Serum or plasma urea nitroge n measurement (mass/volume)Ordered By: Anders Sesay on 10-19-2021 Urea nitrogen [Mass/Vol] 7 mg/dL 9- [facility] Specific gravity Auto test s trip (U) [Rel density]Ordered By: Anders Sesay on 10-19-2021 Specific gravity (U) [Rel density] 1.014 1.001-1.030 [facility] Squamous epithelial cells de tection in urine sediment by light microscopyOrdered By: Anders Sesay on 10-19-2021 Epithelial cells.squamous LM Ql (Urine sed) 3-4 [HPF] [facility] Urine bacteria detection by automated methodOrdered By: Anders Sesay on 10-19-2021 Bacteria Auto Ql (U) 1+ None Seen [facility] Urine clarity by refractomet ry automatedOrdered By: Anders Sesay on 10-19-2021 Clarity Refractometry automated (U) Clear Clear [facility] Urine glucose measurement by automated test strip (mass/volume)Ordered By: Anders Sesay on 10-19-2021 Glucose Auto test strip (U) [Mass/Vol] Normal mg/dL Normal [facility] Urine hemoglobin detection b y automated test stripOrdered By: Anders Sesay on 10-19-2021 Hemoglobin Auto test strip Ql (U) Negative Negative [facility] Urine leukocyte esterase det ection by automated test stripOrdered By: Anders Sesay on 10-19-2021 Leukocyte esterase Auto test strip Ql (U) 1+ Negative [facility] Urobilinogen Auto test strip (U) [Mass/Vol]Ordered By: Anders Sesay on 10-19-2021 Urobilinogen (U) [Mass/Vol] Normal mg/dL Normal [facility] pH Auto test strip (U)Ordere d By: Anders Sesay on 10-19-2021 pH (U) 5.5 [pH] 5.0-9.0 [facility] US DUP ABD PEL RETRO SCROT [...] FINAL Normal [facility] [place] US NON OB TRANSVAGINALon US NON OB [...] FINAL Normal [facility] Chlamydia/GC,DNA Ampon 07-10 Chlamydia Probe Negative Normal NEG [facility] Comment on above: Result Comment: CHLA MYDIA [...] Performed By: #### U HCG, UAMIC #### [facility] [address] [place] [id number] Lepidopterist: Campos Avilez MD Gonorrhea Probe Negative Normal NEG [facility] Comment on above: Result Comment: NEIS SERIA [...] Performed By: #### U HCG, UAMIC #### [facility] [address] [place] [id number] Lepidopterist: Campos Avilez MD Cult,Urineon 07-09-2020 Cult,Urine Specimen Description .CLEAN CATCH URINE Special Requests NOT REPORTED Culture ESCHERICHIA COLI >[id number] CFU/ML Report Status FINAL 07/09/2020 SUSCEPTIBILITY Organism [...] SUSCEPTIBLE Normal [facility] Comment on above: Performed By: #### U HCG, UAMIC #### [place] [address] Lepidopterist: Campos Avilez MD ABO/Rh(D)on 07-08-2020 ABO/Rh(D) Positive Normal [facility] Comment on above: Performed By: #### A [facility] #### [place] [address] Lepidopterist: Campos Avilez MD CBC with Diffon 07-08-2020 Abs. Basophil 0.04 k/uL Normal 0.00-0.20 [facility] Comment on above: Performed By: #### C P, CDP, COSMO, BHCG, MG, VD25, LIP #### [facility] [address] [place] [address] Lepidopterist: Campos Avilez MD Abs.Imm.Granulocyte 0.04 k/uL Normal 0.00-0.30 [facility] Comment on above: Performed By: #### C P, CDP, COSMO, BHCG, MG, VD25, LIP #### [facility] [address] [place] [address] Lepidopterist: Campos Avilez MD Abs.Neutrophil (Seg) 8.16 k/uL High 1.80-8.00 [facility] Comment on above: Performed By: #### C P, CDP, COSMO, BHCG, MG, VD25, LIP #### [address] [address] Lepidopterist: Campos Avilez MD Basophils/100 WBC (Bld) 0 % Normal 0-2 [facility] Comment on above: Performed By: #### C P, CDP, COSMO, BHCG, MG, VD25, LIP #### [address] [address] Lepidopterist: Campos Avilez MD Eosinophils (Bld) [#/Vol] 0.10 10*3/uL Normal 0.00-0.44 [facility] Comment on above: Performed By: #### C P, CDP, COSMO, BHCG, MG, VD25, LIP #### [place] [address] Lepidopterist: Campos Avilez MD Eosinophils/100 WBC (Bld) 1 % Normal 1-4 [facility] Comment on above: Performed By: #### C P, CDP, COSMO, BHCG, MG, VD25, LIP #### [place] [address] Lepidopterist: Campos Avilez MD Erythrocyte distribution width (RBC) [Ratio] 14.0 % Normal 11.8-14.4 [facility] Comment on above: Performed By: #### C P, CDP, COSMO, BHCG, MG, VD25, LIP #### [address] [address] Lepidopterist: Campos Avilez MD Hematocrit (Bld) [Volume fraction] 34.3 % Low 36.3-47.1 [facility] Comment on above: Performed By: #### C P, CDP, COSMO, BHCG, MG, VD25, LIP #### [address] [address] Lepidopterist: Campos Avilez MD Hemoglobin (Bld) [Mass/Vol] 11.1 g/dL Low 11.9-15.1 [facility] Comment on above: Performed By: #### C P, CDP, COSMO, BHCG, MG, VD25, LIP #### [address] [address] Lepidopterist: Campos Avilez MD Immature granulocytes (Bld) [#/Vol] 0 % Normal 0 [facility] Comment on above: Performed By: #### C P, CDP, COSMO, BHCG, MG, VD25, LIP #### [place] [address] Lepidopterist: Campos Avilez MD Lymphocytes (Bld) [#/Vol] 1.77 10*3/uL Normal 1.20-5.20 [facility] Comment on above: Performed By: #### C P, CDP, COSMO, BHCG, MG, VD25, LIP #### [place] [address] Lepidopterist: Campos Avilez MD Lymphocytes/100 WBC (Bld) 16 % Low 25-45 [facility] Comment on above: Performed By: #### C P, CDP, COSMO, BHCG, MG, VD25, LIP #### [place] [address] Lepidopterist: Campos Avilez MD MCH (RBC) [Entitic mass] 26.6 pg Normal 25.0-35.0 [facility] Comment on above: Performed By: #### C P, CDP, COSMO, BHCG, MG, VD25, LIP #### [address] [address] Lepidopterist: Campos Avilez MD MCHC (RBC) [Mass/Vol] 32.4 g/dL Normal 28.4-34.8 [facility] Comment on above: Performed By: #### C P, CDP, COSMO, BHCG, MG, VD25, LIP #### [address] [address] Lepidopterist: Campso Avilez MD MCV (RBC) [Entitic vol] 82.3 fL Normal 78.0-102.0 [facility] Comment on above: Performed By: #### C P, CDP, COSMO, BHCG, MG, VD25, LIP #### [address] [address] Lepidopterist: Campos Avilez MD Monocytes (Bld) [#/Vol] 0.73 10*3/uL Normal 0.10-1.40 [facility] Comment on above: Performed By: #### C P, CDP, COSMO, BHCG, MG, VD25, LIP #### [place] [address] Lepidopterist: Campos Avilez MD Monocytes/100 WBC (Bld) 7 % Normal 2-8 [facility] Comment on above: Performed By: #### C P, CDP, COSMO, BHCG, MG, VD25, LIP #### [address] [address] Lepidopterist: Campos Avilez MD Neutrophil (Seg) 75 % High 34-64 [facility] Comment on above: Performed By: #### C P, CDP, COSMO, BHCG, MG, VD25, LIP #### [address] [address] Lepidopterist: Campos Avilez MD NRBC Automated 0.0 per 100 WBC Normal 0.0 [facility] Comment on above: Performed By: #### C P, CDP, COSMO, BHCG, MG, VD25, LIP #### [address] [address] Lepidopterist: Campos Avilez MD Platelet mean volume (Bld) [Entitic vol] 11.8 fL Normal 8.1-13.5 [facility] Comment on above: Performed By: #### C P, CDP, COSMO, BHCG, MG, VD25, LIP #### [address] [address] Lepidopterist: Campos Avilez MD Platelets (Bld) [#/Vol] 288 10*3/uL Normal 138-453 [facility] Comment on above: Performed By: #### C P, CDP, COSMO, BHCG, MG, VD25, LIP #### [address] [address] Lepidopterist: Campos Avilez MD RBC (Bld) [#/Vol] 4.17 10*6/uL Normal 3.95-5.11 [facility] Comment on above: Performed By: #### C P, CDP, COSMO, BHCG, MG, VD25, LIP #### [address] [address] Lepidopterist: Campos Avilez MD WBC (Bld) [#/Vol] 10.8 10*3/uL Normal 4.5-13.5 [facility] Comment on above: Performed By: #### C P, CDP, COSMO, BHCG, MG, VD25, LIP #### [address] [address] Lepidopterist: Campos Avilez MD Auto Diff Performed NOT REPORTED Normal [facility] Comment on above: Performed By: #### C P, CDP, COSMO, BHCG, MG, VD25, LIP #### [address] [address] Lepidopterist: Campos Avilez MD Platelets (Bld) [#/Vol] NOT REPORTED Normal [facility] Comment on above: Performed By: #### C P, CDP, COSMO, BHCG, MG, VD25, LIP #### [address] [address] Lepidopterist: Campos Avilez MD RBC morphology finding Nom (Bld) NOT REPORTED Normal [facility] Comment on above: Performed By: #### C P, CDP, CSOMO, BHCG, MG, VD25, LIP #### [address] [address] Lepidopterist: Campos Avilez MD WBC Morphology NOT REPORTED Normal [facility] Comment on above: Performed By: #### C P, CDP, COSMO, BHCG, MG, VD25, LIP #### [address] [address] Lepidopterist: Campos Avilez MD Calcium, Ionicon 07-08-2020 Calcium [Mass/Vol] 1.18 mmol/L Normal 1.13-1.33 [facility] Comment on above: Performed By: #### I OCAL #### [address] [address] Lepidopterist: Campos Avilez MD Calcium, Ionizedon Calcium [Mass/Vol] 1.18 mmol/L 1.13 - 1. 33 mmol/L [facility] [place] [place] Comp Metabolic Profon 2020 (cont.) Normal [facility] Comment on above: Result Comment: Aver age GFR for <20 years old not available. Chronic Kidney Disease: <60 mL/min/1.73sq m Kidney failure: <15 mL/min/1.73sq m eGFR calculated using average adult body mass. Additional eGFR calculator available at: http://[email or web address]/multiple_crcl_2012.htm Performed By: #### C P, CDP, COSMO, BHCG, MG, VD25, LIP #### [address] [address] Lepidopterist: Campos Avilez MD Albumin [Mass/Vol] 2.3 g/dL Low 3.5-5.2 [facility] Comment on above: Performed By: #### C P, CDP, COSMO, BHCG, MG, VD25, LIP #### [address] [address] Lepidopterist: Campos Avilez MD Albumin/Globulin [Mass ratio] 0.9 {ratio} Low 1.0-2.5 [facility] Comment on above: Performed By: #### C P, CDP, COSMO, BHCG, MG, VD25, LIP #### [address] [address] Lepidopterist: Campos Avilez MD Alkaline Phos 41 U/L Normal 35-104 [facility] Comment on above: Result Comment: SPEC IMEN MODERATELY HEMOLYZED, RESULTS MAY BE ADVERSELY AFFECTED Performed By: #### C P, CDP, COSMO, BHCG, MG, VD25, LIP #### [address] [address] Lepidopterist: Campos Avilez MD ALT [Catalytic activity/Vol] 11 U/L Normal 5-33 [facility] Comment on above: Result Comment: SPEC IMEN MODERATELY HEMOLYZED, RESULTS MAY BE ADVERSELY AFFECTED Performed By: #### C P, CDP, COSMO, BHCG, MG, VD25, LIP #### [address] [address] Lepidopterist: Campos Avilez MD Anion gap [Moles/Vol] 9 mmol/L Normal 9-17 [facility] Comment on above: Performed By: #### C P, CDP, COMSO, BHCG, MG, VD25, LIP #### [address] [address] Lepidopterist: Campos Avilez MD AST [Catalytic activity/Vol] 28 U/L Normal <32 [facility] Comment on above: Result Comment: SPEC IMEN MODERATELY HEMOLYZED, RESULTS MAY BE ADVERSELY AFFECTED Performed By: #### C P, CDP, COSMO, BHCG, MG, VD25, LIP #### [address] [address] Lepidopterist: Campos Avilez MD Bilirubin Ql (U) <0.10 Low 0.3-1.2 [facility] Comment on above: Performed By: #### C P, CDP, COSMO, BHCG, MG, VD25, LIP #### [address] [address] Lepidopterist: Campos Avilez MD Calcium [Mass/Vol] 5.5 mg/dL Critically low 8.6-10.4 [facility] Comment on above: Performed By: #### C P, CDP, COSMO, BHCG, MG, VD25, LIP #### [address] [address] Lepidopterist: Campos Avilez MD Chloride [Moles/Vol] 118 mmol/L High 98-107 [facility] Comment on above: Performed By: #### C P, CDP, COSMO, BHCG, MG, VD25, LIP #### [address] [address] Lepidopterist: Campos Avilez MD CO2 [Moles/Vol] 14 mmol/L Low 20-31 [facility] Comment on above: Performed By: #### C P, CDP, COSMO, BHCG, MG, VD25, LIP #### [address] [address] Lepidopterist: Campos Avilez MD Creatinine [Mass/Vol] 0.60 mg/dL Normal 0.50-0.90 [facility] Comment on above: Performed By: #### C P, CDP, COSMO, BHCG, MG, VD25, LIP #### [address] [address] Lepidopterist: Campos Avilez MD GFR,non Amer Pediatric GFR requires additional information. Refer to NKDEP website for Normal >60 [facility] Comment on above: Result Comment: calc ulator. Performed By: #### C P, CDP, COSMO, BHCG, MG, VD25, LIP #### [address] [address] Lepidopterist: Campos Avilez MD Glucose [Mass/Vol] 84 mg/dL Normal 70-99 [facility] Comment on above: Performed By: #### C P, CDP, COSMO, BHCG, MG, VD25, LIP #### [address] [address] Lepidopterist: Campos Avilez MD Potassium [Moles/Vol] 5.1 mmol/L Normal 3.7-5.3 [facility] Comment on above: Result Comment: SPEC IMEN MODERATELY HEMOLYZED, RESULTS MAY BE ADVERSELY AFFECTED Performed By: #### C P, CDP, COSMO, BHCG, MG, VD25, LIP #### [address] [address] Lepidopterist: Campos Avilez MD Protein [Mass/Vol] 5.0 g/dL Low 6.4-8.3 [facility] Comment on above: Performed By: #### C P, CDP, COSMO, BHCG, MG, VD25, LIP #### [address] [address] Lepidopterist: Campos Avilez MD Sodium [Moles/Vol] 141 mmol/L Normal 135-144 [facility] Comment on above: Performed By: #### C P, CDP, COSMO, BHCG, MG, VD25, LIP #### [facility] [address] [place] [address] Lepidopterist: Campos Avilez MD Urea nitrogen [Mass/Vol] 10 mg/dL Normal 6-20 [facility] Comment on above: Performed By: #### C P, CDP, COSMO, BHCG, MG, VD25, LIP #### [facility] [address] [place] [address] Lepidopterist: Campos Avilez MD BUN/CRE Ratio NOT REPORTED Normal 9-20 [facility] Comment on above: Performed By: #### C P, CDP, COSMO, BHCG, MG, VD25, LIP #### [facility] [address] [place] [address] Lepidopterist: Campos Avilez MD GFR, Amer NOT REPORTED Normal >60 [facility] Comment on above: Performed By: #### C P, CDP, COSMO, BHCG, MG, VD25, LIP #### [facility] [address] [place] [address] Lepidopterist: Campos Avilez MD Staging: NOT REPORTED Normal [facility] Comment on above: Performed By: #### C P, CDP, COSMO, BHCG, MG, VD25, LIP #### [facility] [address] [place] [address] Lepidopterist: Campos Avilez MD HCG, ,Urineon 07-08 Beta HCG ( test) Ql (U) Negative Normal NEG [facility] Comment on above: Result Comment: Spec imens with hCG levels near the threshold of the test (25 mIU/mL) may give a negative or indeterminate result. In such cases, another test should be performed with a new specimen in 48-72 hours. If early is suspected clinically in this setting, correlation with quantitative serum b-hCG level is suggested. Performed By: #### U HCG, UAMIC #### [facility] [address] [place] [address] Lepidopterist: Campos Avilez MD HCG, Quanton 07-08-2020 HCG, Quant <1 Normal <5 [facility] Comment on above: Result Comment: Non-preg premeno [...] BHCG, MG, VD25, LIP #### [facility] [address] [place] [phone] Lepidopterist: Campos Avilez MD Lipaseon 07-08-2020 Lipase [Catalytic activity/Vol] 15 U/L Normal 13-60 [facility] Comment on above: Performed By: #### C P, CDP, COSMO, BHCG, MG, VD25, LIP #### [facility] [address] [place] [address] Lepidopterist: Campos Avilez MD Magnesiumon 07-08-2020 Magnesium [Mass/Vol] 1.2 mg/dL Low 1.7-2.2 [facility] Comment on above: Performed By: #### C P, CDP, COSMO, BHCG, MG, VD25, LIP #### [facility] [address] [place] [phone] Lepidopterist: Campos Avilez MD Interpretation and review of laboratory results Abnormal [place] Magnesium [Mass/Vol] 1.2 mg/dL Low 1.7 - 2 .2 mg/dL [place] Otheron 07-08-2020 Direct Exam Negative [place] , URINEon 1 Beta HCG ( test) Ql (U) Negative NEGATIVE [place] Comment on above: Specimens with hCG [...] 2.6 mg/dL 2.5 - 4 .8 mg/dL [place] Phosphorus, Inorg.on 021 Phosphorus, Inorg. 2.6 mg/dL Normal 2.5-4.8 [facility] Comment on above: Performed By: #### U HCG, UAMIC #### [facility] [address] [place] [address] Lepidopterist: Campos Avilez MD NON OB TRANSVAGINALon Elia, Mhpn Incoming Radiant Results From [employer] - 07/08/2020 12:31 AM EST EXAMINATION: PELVIC [...] No evidence of ovarian torsion is noted. [place] Unremarkable pelvic ultrasound. No evidence of ovarian torsion is noted. [place] EXAMINATION: PELVIC ULTRASOUND 07/07/2020 TECHNIQUE: Transvaginal [...] No evidence of free fluid. [facility] [place] Urinalysis w/ Microon 2020 ----- Normal [facility] Comment on above: Performed By: #### U HCG, UAMIC #### [address] [address] Lepidopterist: Campos Avilez MD Acetoacetic Acid,Ur Negative Normal NEG [facility] Comment on above: Performed By: #### U HCG, UAMIC #### [address] [address] Lepidopterist: Campos Avilez MD Bacteria LM.HPF (Urine sed) [#/Area] MANY Abnormal NONE [facility] Comment on above: Performed By: #### U HCG, UAMIC #### [address] [address] Lepidopterist: Campos Avilez MD Bilirubin, SemiQt,Ur Negative Normal NEG [facility] Comment on above: Performed By: #### U HCG, UAMIC #### [address] [address] Lepidopterist: Campos Avilez MD Color (U) ORANGE Abnormal YEL [facility] Comment on above: Result Comment: INTE RPRET WITH CAUTION DUE TO INTENSE COLOR OF URINE. Performed By: #### U HCG, UAMIC #### [address] [address] Lepidopterist: Campos Avilez MD Epithelial cells LM.HPF (Urine sed) [#/Area] 0 TO 2 Normal 0-5 [facility] Comment on above: Performed By: #### U HCG, UAMIC #### [address] [address] Lepidopterist: Campos Avilez MD Glucose Ql (U) Negative Normal NEG [facility] Comment on above: Performed By: #### U HCG, UAMIC #### [address] [address] Lepidopterist: Campos Avilez MD Hemoglobin, Ur LARGE Abnormal NEG [facility] Comment on above: Performed By: #### U HCG, UAMIC #### [address] [address] Lepidopterist: Campos Avilez MD Leukocyte esterase Test strip Ql (U) MODERATE Abnormal NEG [facility] Comment on above: Performed By: #### U HCG, UAMIC #### [address] [address] Lepidopterist: Campos Avilez MD Nitrite,Ur Positive Abnormal NEG [facility] Comment on above: Performed By: #### U HCG, UAMIC #### [address] [address] Lepidopterist: Campos Avilez MD pH (U) 5.5 [pH] Normal 5.0-8.0 [facility] Comment on above: Performed By: #### U HCG, UAMIC #### [address] [address] Lepidopterist: Campos Avilez MD Protein Ql (U) 2+ Abnormal NEG [facility] Comment on above: Performed By: #### U HCG, UAMIC #### [address] [address] Lepidopterist: Campos Avilez MD RBC (U) [#/Vol] 50 TO 100 Normal 0-4 [facility] Comment on above: Result Comment: Refe rence range defined for non-centrifuged specimen. Performed By: #### U HCG, UAMIC #### [address] [address] Lepidopterist: Campos Avilez MD Specific gravity (U) [Rel density] 1.021 Normal 1.005-1.030 [facility] Comment on above: Performed By: #### U HCG, UAMIC #### [address] [address] Lepidopterist: Campos Avilez MD Turbidity TURBID Abnormal CLEAR [facility] Comment on above: Performed By: #### U HCG, UAMIC #### [address] [address] Lepidopterist: Campos Avilez MD Urobilinogen,Ur Normal Normal NORM [facility] Comment on above: Performed By: #### U HCG, UAMIC #### [address] [address] Lepidopterist: Campos Avilez MD WBC (U) [#/Vol] TOO NUMEROUS TO COUNT Normal 0-5 [facility] Comment on above: Performed By: #### U HCG, UAMIC #### [address] [address] Lepidopterist: Campos Avilez MD Amorphous sediment LM Ql (Urine sed) NOT REPORTED Normal NONE [facility] Comment on above: Performed By: #### U HCG, UAMIC #### [address] [address] Lepidopterist: Campos Avilez MD Casts LM.LPF (Urine sed) [#/Area] NOT REPORTED Normal 0-8 [facility] Comment on above: Performed By: #### U HCG, UAMIC #### [address] [address] Lepidopterist: Campos Avilez MD Crystals LM Nom (Urine sed) NOT REPORTED Normal NONE [facility] Comment on above: Performed By: #### U HCG, UAMIC #### [address] [address] Lepidopterist: Campos Avilez MD Epithelial, Renal NOT REPORTED Normal 0 [facility] Comment on above: Performed By: #### U HCG, UAMIC #### [facility] [address] [place] [address] Lepidopterist: Campos Avilez MD Mucus Strands NOT REPORTED Normal [facility] Comment on above: Performed By: #### U HCG, UAMIC #### [address] [address] Lepidopterist: Campos Avilez MD Other Observations NOT REPORTED Normal NREQ [facility] Comment on above: Performed By: #### U HCG, UAMIC #### [address] [address] Lepidopterist: Campos Avilez MD Trichomonas NOT REPORTED Normal NONE [facility] Comment on above: Performed By: #### U HCG, UAMIC #### [address] [address] Lepidopterist: Campos Avilez MD Yeast LM Ql (Urine sed) NOT REPORTED Normal [facility] Comment on above: Performed By: #### U HCG, UAMIC #### [facility] [address] [place] [address] Lepidopterist: Campos Avilez MD Urinalysis with microscopico n 07-08-2020 Amorphous, UA NOT REPORTED None [facility] [place] [place] Bacteria, UA MANY Abnormal None [facility] [place] Bilirubin Urine Negative NEGATIVE [facility] [place] Casts UA NOT REPORTED [facility] [place] Color, UA ORANGE Abnormal YELLOW [facility] [place] Comment on above: INTERPRET WITH CAUTI ON DUE TO INTENSE COLOR OF URINE. Crystals, UA NOT REPORTED None /HPF [place] Epithelial Cells UA 0 TO 2 [place] Glucose, Ur Negative NEGATIVE [place] Interpretation and review of laboratory results Abnormal [place] Ketones Ql (U) Negative NEGATIVE [place] Leukocyte esterase Test strip Ql (U) MODERATE Abnormal NEGATIVE [place] Mucus, UA NOT REPORTED None [place] Nitrite, Urine Positive Abnormal NEGATIVE [place] Other Observations UA NOT REPORTED NOT REQ. M [place], [place] pH, UA 5.5 [place] Protein (U) [Mass/Vol] 2+ Abnormal NEGATIVE [place] RBC (U) [#/Vol] 50 TO 100 [place] Comment on above: Reference range defi sonia for non-centrifuged specimen. Renal Epithelial, UA NOT REPORTED 0 /HPF [place] Specific [place], UA 1.021 [place], [place] Trichomonas, UA NOT REPORTED None [place] Turbidity UA TURBID Abnormal CLEAR [place] Urine Hgb LARGE Abnormal NEGATIVE [place] Urobilinogen, Urine Normal Normal [place] WBC, UA TOO NUMEROUS TO COUNT [place] Yeast, UA NOT REPORTED None [place] VAGINITIS DNA PROBEon 2020 Direct Exam Positive Abnormal [place] Direct Exam Method of testing is a DNA probe intended for detection and identification of Samantha species, Gardnerella vaginalis, and Trichomonas vaginalis nucleic acid in vaginal fluid specimens from patients with symptoms of vaginitis/vaginosis. [place] Interpretation and review of laboratory results Abnormal [place] Special Requests NOT REPORTED [place] Specimen Description .VAGINA [place] Vaginitis DNA Probeon 2020 Vaginitis DNA [...] 07/08/2020 Normal [facility] Comment on above: Performed By: #### U HCG, UAMIC #### [employer] [facility] [employer] [address], [place] [phone] Lepidopterist: Campos Avilez MD Vitamin D 25 Hydroxyon 07-08 Interpretation and review of laboratory results Abnormal [place] Vit D, 25-Hydroxy 12.1 ng/mL Low 30 - 100 ng/mL [place] Comment on above: Reference Range: Vitamin D status Range Deficiency <20 ng/mL Mild Deficiency 20-30 ng/mL Sufficiency 30-100 ng/mL Toxicity >100 ng/mL Vitamin D 25 OHon 07-08-2020 Vitamin D 25 [place] 12.1 ng/mL Low 30.0-100.0 [facility] Comment on above: Result Comment: Reference Range: Vitamin D status Range Deficiency <20 ng/mL Mild Deficiency 20-30 ng/mL Sufficiency 30-100 ng/mL Toxicity >100 ng/mL Performed By: #### U HCG, UAMIC #### [facility] [address] [place] [phone] Lepidopterist: Campos Avilez MD ABO/RHon 07-07-2020 ABO/Rh Positive [place] CBC WITH AUTO DIFFERENTIALon 07-07-2020 Basophils (Bld) [#/Vol] 0.04 10*3/uL [place] Basophils/100 WBC (Bld) 0 % 0 - 2 % [place] Differential Type NOT REPORTED [place] Eosinophils (Bld) [#/Vol] 0.10 10*3/uL [place] Eosinophils/100 WBC (Bld) 1 % 1 - 4 % [place] Erythrocyte distribution width (RBC) [Ratio] 14.0 % 11.8 - 14.4 % [place] Hematocrit (Bld) [Volume fraction] 34.3 % Low 36.3 - 47.1 % [place] Hemoglobin (Bld) [Mass/Vol] 11.1 g/dL Low 11.9 - 15.1 g/dL [place] Immature granulocytes (Bld) [#/Vol] 0 % 0 [place] Immature granulocytes (Bld) [#/Vol] 0.04 10*3/uL [place] Interpretation and review of laboratory results Abnormal [place] Lymphocytes (Bld) [#/Vol] 1.77 10*3/uL [place] Lymphocytes/100 WBC (Bld) 16 % Low 25 - 45 % [place] MCH (RBC) [Entitic mass] 26.6 pg 25 - 35 pg [place] MCHC (RBC) [Mass/Vol] 32.4 g/dL 28.4 - 34.8 g/dL [place] MCV (RBC) [Entitic vol] 82.3 fL 78 - 102 fL [place] Monocytes (Bld) [#/Vol] 0.73 10*3/uL [place] Monocytes/100 WBC (Bld) 7 % 2 - 8 % [place] Platelet mean volume (Bld) [Entitic vol] 11.8 fL 8.1 - 13.5 fL [place] Platelets (Bld) [#/Vol] NOT REPORTED [place] Platelets (Bld) [#/Vol] 288 10*3/uL [place] RBC (Bld) [#/Vol] 4.17 10*6/uL 3.95 - 5.1 1 m/uL [place] RBC morphology finding Nom (Bld) NOT REPORTED [place] Segmented neutrophils/100 WBC (Bld) 75 % High 34 - 64 % [place] Segs Absolute 8.16 High [place] WBC (Bld) [#/Vol] 0.0 10*3/uL 0.0 per 10 0 WBC [place] WBC (Bld) [#/Vol] 10.8 10*3/uL [place] WBC Morphology NOT REPORTED [place] COMPREHENSIVE METABOLIC PANE Mikie 07-07-2020 Albumin [Mass/Vol] 2.3 g/dL Low 3.5 - 5.2 g/dL [place] Albumin/Globulin [Mass ratio] 0.9 {ratio} Low [place] ALP [Catalytic activity/Vol] 41 U/L 35 - 104 U/L [place] Comment on above: SPECIMEN MODERATELY HEMOLYZED, RESULTS MAY BE ADVERSELY AFFECTED ALT [Catalytic activity/Vol] 11 U/L 5 - 33 U/L [place] Comment on above: SPECIMEN MODERATELY HEMOLYZED, RESULTS MAY BE ADVERSELY AFFECTED Anion gap [Moles/Vol] 9 mmol/L 9 - 17 mmol/L [place] AST [Catalytic activity/Vol] 28 U/L <32 [place] Comment on above: SPECIMEN MODERATELY HEMOLYZED, RESULTS MAY BE ADVERSELY AFFECTED Bilirubin Ql (U) <0.10 Low 0.3 - 1.2 mg/dL [place] Bun/Cre Ratio NOT REPORTED [place] Calcium [Mass/Vol] 5.5 mg/dL Critically low 8.6 - 1 0.4 mg/dL [place] Chloride [Moles/Vol] 118 mmol/L High 98 - 10 7 mmol/L [place] CO2 [Moles/Vol] 14 mmol/L Low 20 - 31 mmol/L [place] Creatinine [Mass/Vol] 0.6 mg/dL 0.5 - 0.9 mg/dL [place] GFR NOT REPORTED >60 mL/min [place] GFR Non- Pediatric GFR requires additional information. Refer to NKDEP website for calculator. >60 mL/min [place] GFR/1.73 sq M predicted among non-blacks MDRD (S/P/Bld) [Vol rate/Area] NOT REPORTED [place] GFR/1.73 sq M predicted among non-blacks MDRD (S/P/Bld) [Vol rate/Area] [place] Comment on above: Average GFR for <20 years old not available. Chronic Kidney Disease: <60 mL/min/1.73sq m Kidney failure: <15 mL/min/1.73sq m eGFR calculated using average adult body mass. Additional eGFR calculator available at: http://www.[employer]/multiple_crcl_2012.htm Glucose [Mass/Vol] 84 mg/dL 70 - 99 mg/dL [place] Interpretation and review of laboratory results Abnormal [place] Potassium [Moles/Vol] 5.1 mmol/L 3.7 - 5.3 mmol/L [place] Comment on above: SPECIMEN MODERATELY HEMOLYZED, RESULTS MAY BE ADVERSELY AFFECTED Protein [Mass/Vol] 5.0 g/dL Low 6.4 - 8.3 g/dL [place] Sodium [Moles/Vol] 141 mmol/L 135 - 144 mmol/L [place] Urea nitrogen [Mass/Vol] 10 mg/dL 6 - 20 mg/dL [place] HCG, QUANTITATIVE, on 07-07-2020 hCG Quant <1 <5 IU/L [place] Comment on above: Non-preg premeno <=5 [...] activity/Vol] 15 U/L 13 - 60 U/L [place] Vital Signs Date Time Vital Sign Value Performing Clinician Facility 10-26-2023 03:30-0400 Hourly Rounding Fuentes Florentino [facility] Comment on above: Result Comment: pt discharged off unit 10-26-2023 03:15-0400 Hourly Rounding Fuentes Florentino [facility] Comment on above: Result Comment: went over discharge inst ructions. educated pt on importance of contacting primary provider with future concerns, pisking up antibiotic prescription tomorrow, and calling is symtpoms return or get worse. 10-26-2023 00:00-0400 Blood Pressure Location Fuentes Florentino [facility] 10-26-2023 00:00-0400 Body temperature 98.6 [degF] Fuentes Florentino [facility] 10-26-2023 00:00-0400 Diastolic blood pressure 68 mm[Hg] Fuentes Florentino [facility] 10-26-2023 00:00-0400 Heart rate 101 /min Fuentes Florentino [facility] 10-26-2023 00:00-0400 Hourly Rounding Fuentes Florentino [facility] 10-26-2023 00:00-0400 Mean blood pressure 86 mm[Hg] Fuentes Florentino [facility] 10-26-2023 00:00-0400 Respiratory rate 16 /min Fuentes Florentino [facility] 10-26-2023 00:00-0400 Systolic blood pressure 122 mm[Hg] Fuentes Florentino [facility] 07-17-2023 11:42-0500 Body weight 127.82 kg Chung BenjaEdxact Work Phone: [facility] 07-17-2023 11:42-0500 Diastolic blood pressure 70 mm[Hg] Chung Benja DO Work Phone: [facility] 07-17-2023 11:42-0500 Systolic blood pressure 118 mm[Hg] Chung Benja DO Work Phone: [facility] 10-19-2021 01:12-0400 Diastolic blood pressure 62 mm[Hg] PHYSICIAN [facility] 10-19-2021 01:12-0400 Heart rate 89 /min PHYSICIAN [facility] 10-19-2021 01:12-0400 Respiratory rate 18 /min PHYSICIAN [facility] 10-19-2021 01:12-0400 SaO2% (BldA) [Mass fraction] 100 % PHYSICIAN [facility] 10-19-2021 01:12-0400 Systolic blood pressure 130 mm[Hg] PHYSICIAN [facility] 10-18-2021 23:10-0400 Body height 167.64 cm PHYSICIAN [facility] 10-18-2021 23:10-0400 Body mass index (BMI) [Percentile] Per age and sex 99.1 % PHYSICIAN [facility] 10-18-2021 23:10-0400 Body mass index (BMI) [Ratio] 48.2 kg/m2 PHYSICIAN [facility] 10-18-2021 23:10-0400 Body weight 135.5 kg PHYSICIAN [facility] 10-18-2021 23:08-0400 Body temperature 98.4 [degF] PHYSICIAN [facility] 07-07-2020 21:51-0500 BMI (Body Mass Index) 42.93 kg/m2 [facility] [place] 07-07-2020 21:51-0500 Body weight 120.66 kg [facility] [place] 07-07-2020 21:51-0500 BP Diastolic 85 mm[Hg] [facility] [place] 07-07-2020 21:51-0500 BP Systolic 136 mm[Hg] [facility] [place] 07-07-2020 21:51-0500 Height 167.6 cm [facility] [place] 07-07-2020 21:51-0500 Pulse (Heart Rate) 93 /min [facility] 07-07-2020 21:51-0500 Pulse Oximetry 97 % [facility] [place] 07-07-2020 21:51-0500 Respiratory Rate 18 /min [facility], [place] 07-07-2020 21:48-0500 Body Temperature 97.11 [degF] Lisa Land [facility] [place] Encounters Encounter Date Encounter Type Care Provider Facility Start: 01-21-2024 End: 01-21-2024 ambulatory CHUNG BENJA Not Available Start: 01-14-2024 End: 01-14-2024 ambulatory CHUNG BENJA Not Available Start: 12-31-2023 End: 12-31-2023 ambulatory HALIMA SUBHASH Not Available Start: 12-17-2023 End: 12-17-2023 ambulatory HALIMA SUBHASH Not Available Start: 12-03-2023 End: 12-03-2023 ambulatory CHUNG BENJA Not Available Start: 11-19-2023 End: 11-19-2023 ambulatory CHUNG BENJA Not Available Start: 11-04-2023 End: 11-04-2023 ambulatory HALIMA SUBHASH Not Available Start: 10-26-2023 End: 10-26-2023 ambulatory Fuentes Florentino Facility:[facility] Start: 10-25-2023 End: 10-26-2023 OB Triage Fuentes Florentino [facility] Start: 10-07-2023 End: 10-07-2023 ambulatory CHUNG BENJA [...] Emergency department patient visit PHYSICIAN NO FAMILY Facility:[facility] Start: 10-18-2021 End: 10-19-2021 Emergency department patient visit PHYSICIAN NO FAMILY [facility] Start: 07-07-2020 End: 07-08-2020 Emergency department patient visit DAVID AQUINO [facility] Start: 07-07-2020 End: 07-08-2020 Emergency department patient visit Lisa Land Work Phone: [facility] ED Comment on above: BV [...] 07-07-2020 Urine test visual color cmprsn meths Brneda Stoner Work Phone: Start: 07-07-2020 Urnls dip [...] AM EDT Routine [facility] [address] [facility] [address] Halima Cullen PA [address] [place], [place] [id number] [facility] Start: 07-17-2023 End: 07-17-2024 US for US OB VIABLILITY Imaging Routine with uncertain viability, single or unspecified fetus Expected: 07/17/2023 (Approximate), Expires: 07/17/2024 [facility] Work Phone: Comment on above: Expected: 07/17/2023 (Approximate), Expires: 07/17/2024 Start: 07-17-2023 End: 07-17-2023 Patient encounter procedure [facility] Comment on above: First trimester preg yesika Start: 07-03-2023 End: 07-03-2024 ABO/Rh ABO/Rh Lab Routine Missed menses Expected: 07/03/2023 (Approximate), Expires: 07/03/2024 [facility] Comment on above: Expected: 07/03/2023 (Approximate), Expires: 07/03/2024 Start: 07-03-2023 End: 07-03-2024 Blood type and Indirect antibody screen panel - Blood Type and screen Lab Routine Missed menses Expected: 07/03/2023 (Approximate), Expires: 07/03/2024 [facility] Work Phone: Comment on above: Expected: 07/03/2023 (Approximate), Expires: 07/03/2024 Start: 07-03-2023 End: 07-03-2024 US Pelvis transvaginal US OB transvaginal Imaging Routine Missed menses Expected: 07/03/2023 (Approximate), Expires: 07/03/2024 [facility] Comment on above: Expected: 07/03/2023 (Approximate), Expires: 07/03/2024 Start: 02-01-2020 Influenza vaccination Flu vaccine (# 1) [place] Start: 2018 Meningococcal (ACWY) vaccine (1 - 2-dose series) Meningococcal (ACWY) vaccine (1 - 2-dose series) [place] Start: 2018 Screening for Chlamy nancy trachomatis Chlamydia screen [place] Start: 2017 HIV screening HIV screen [place], [place] Start: 2013 HPV vaccine (1 - 2-d ose series) HPV vaccine (1 - 2-dose series) [place] Start: 2009 DTaP/Tdap/Td vaccine (1 - Tdap) DTaP/Tdap/Td vaccine (1 - Tdap) [place] Start: 2003 Hepatitis A vaccine (1 of 2 - 2-dose series) Hepatitis A vaccine (1 of 2 - 2-dose series) [place] Start: 2003 Measles,Mumps,Rubell a (MMR) vaccine (1 of 2 - Standard series) Measles,Mumps,Rubella (MMR) vaccine (1 of 2 - Standard series) [place] Start: 2003 Varicella vaccine (1 of 2 - 2-dose childhood series) Varicella vaccine (1 of 2 - 2-dose childhood series) [place] Start: 2002 Hepatitis B vaccine (1 of 3 - 3-dose primary series) Hepatitis B vaccine (1 of 3 - 3-dose primary series) [place] Start: 2002 Hepatitis C screening Hepatitis C sc reen [place] Bacteria identified in Urine by Culture Urine culture Microbiology Routine Missed menses Ordered: 07/03/2023 [facility] Comment on above: Ordered: 07/03/2023 End: 07-07-2020 C.trachomatis N.gonorrhoeae DNA C.trachomatis N.gonorrhoeae DNA Microbiology STAT One Time for 1 Occurrences starting 07/07/2020 until 07/07/2020 [place] Comment on above: One Time for 1 Occur rences starting 07/07/2020 until 07/07/2020 C.trachomatis N.gonorrhoeae DNA C.trachomatis N.gonorrhoeae DNA Microbiology Stat [employer] Label print 07/07/2020 11:20 PM EST [place] End: 07-08-2020 Calcium, Ionized Calcium, Ionized Lab STAT One Time for 1 Occurrences starting 07/08/2020 until 07/08/2020 [place] Comment on above: One Time for 1 Occur rences starting 07/08/2020 until 07/08/2020 CBC W Auto Different ial panel - Blood CBC and differential Lab Routine Missed menses Ordered: 07/03/2023 [facility] Comment on above: Ordered: 07/03/2023 End: 07-07-2020 Culture, Urine Culture, Urine Microbiology STAT One Time for 1 Occurrences starting 07/07/2020 until 07/07/2020 [facility] Comment on above: One Time for 1 Occur rences starting 07/07/2020 until 07/07/2020 Culture, Urine Culture, Urine Microbiology Stat [employer] Label print 07/07/2020 10:56 PM [facility] Hemoglobin A1c measurement Hemoglobin A1c Lab Routine Missed menses Ordered: 07/03/2023 [facility] Comment on above: Ordered: 07/03/2023 Hepatitis B virus surface Ag [Presence] in Serum or Plasma by Immunoassay Hepatitis B surface antigen Lab Routine Missed menses Ordered: 07/03/2023 [facility] Comment on above: Ordered: 07/03/2023 Hepatitis C virus Ab [Presence] in Serum or Plasma by Immunoassay Hepatitis C antibody Lab Routine Missed menses Ordered: 07/03/2023 [facility] Comment on above: Ordered: 07/03/2023 HIV-1/HIV-2 antigen/antibody combination immunoassay HIV-1 and HIV-2 antibodies Lab Routine Missed menses Ordered: 07/03/2023 [facility] Comment on above: Ordered: 07/03/2023 Patient Education Common Breast Problems Pelvic Pain ED [facility] Work Phone: Patient referral [facility] Work Phone: Reagin Ab [Presence] in Serum by RPR RPR Lab Routine Missed menses Ordered: 07/03/2023 [facility] Comment on above: Ordered: 07/03/2023 Rubella antibody, IgG Rubella an tibody, IgG Lab Routine Missed menses Ordered: 07/03/2023 [facility] Comment on above: Ordered: 07/03/2023 End: 07-07-2020 US DUP ABD PEL RETRO SCROT LIMITED US DUP ABD PEL RETRO SCROT LIMITED Imaging STAT Once for 1 Occurrences starting 07/07/2020 until 07/07/2020 [facility] Comment on above: Once for 1 Occurrenc es starting 07/07/2020 until 07/07/2020 US DUP ABD PEL RETRO SCROT LIMITED US DUP ABD PEL RETRO SCROT LIMITED Imaging STAT 07/08/2020 12:13 AM [facility] Payers Date Payer Category Payer Unknown BCBS BCBS [id number] 2023-Present [phone] [address] [place] [address] [id number] 2023 Unknown [id number] 2021 Self-pay [id number] 2002 Unknown [id number] 2002 Unknown [id number] 2.16.840.1.147487.3.579.2.593 2002 Unknown [id number] 2.16.840.1.880202.3.579.2.593 2002 Unknown [id number] 2.16.840.1.432014.3.579.2.727 2002 Unknown [id number] 2.16.840.1.062672.3.579.2.727 2002 Unknown [id number] 2.16.840.1.037309.3.579.2.1259 2002 Unknown [id number] 2.16.840.1.132352.3.579.2.1259 2002 Unknown [id number] 2.16.840.1.704821.3.579.2.1259 2002 Unknown [id number] 2.16.840.1.093111.3.579.2.1259 2002 Unknown [id number] 2.16.840.1.441209.3.579.2.125 2002 Unknown [id number] 2.16.840.1.567250.3.579.2.1259 2002 Unknown [id number] 2.16.840.1.094234.3.579.2.1259 2002 Unknown [id number] 2.16.840.1.080450.3.579.2.1259 2002 Unknown [id number] 2.16.840.1.930442.3.579.2.1259 2002 Unknown [id number] 2.16.840.1.875910.3.579.2.1259 2002 Unknown [id number] 2.16.840.1.412847.3.579.2.1259 2002 Unknown [id number] 2.16.840.1.400194.3.579.2.1259 1957 Medicaid [id number] 1957 Unknown [id number] Unknown [id number] [id number] Social History Date Type Detail Facility Start: 07-07-2020 End: 07-16-2023 Tobacco smoking status WVIS Never smoker [facility] Start: 07-07-2020 Tobacco use and exposure Never used [place] Start: 2002 Sex Assigned At Not on file [place] Exposure to SARS-CoV-2 (event) Not sure [place] Start: 10-19-2021 Tobacco smoking status NHIS Smoker (finding) [facility] Start: 2000 Sex Assigned At Female F [facility] Tobacco smoking status WVIS Tobacco smoking consumption unknown [facility] Start: 05-22-2023 [facility] Start: 07-16-2023 Gender identity Not on file [facility] Start: 07-16-2023 End: 07-17-2023 Alcohol intake Lifetime non-drinker (finding) [facility] Start: 07-16-2023 History of Social function [facility] Tobacco smoking status No Smoking Status Entered [facility] Functional Status Date Assessment Result Facility 10-26-2023 Functional Status N/A [facility] Clinical Notes 07-03-2023 to 10-26-2023 Chung Yousif DO - 07/17/2023 11:10 AM Costa Kilgore LPN - 07/03/2023 1:00 PM EST Note Date & Type Note Facility 10-26-2023 Note The following Ephraim t Education Materials have been given to the patient: EducationMaterial [facility] 10-26-2023 Hospital Discharg e instructions Patient [...] provider. Document Revised: 01/02/2022 Document Reviewed: 01/02/2022 [employer] Patient Education 2022 [employer]. 10/26/2023 03:10:04 Vaginal Bleeding During , Second [...] help with your regular activities. Medicines Take unpn-wir-nlcrsfo and prescription medicines only as told by [...] provider. Document Revised: 02/08/2021 Document Reviewed: 02/08/2021 [employer] Patient Education 2022 [employer]. 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 [...] your back during . General instructions Take hkjd-qog-ywldvkl and prescription medicines only as told by [...] care provider for managing back pain. Take qypj-sqw-gbwgbxw and prescription medicines only as told by [...] provider. Document Revised: 08/01/2021 Document Reviewed: 08/01/2021 [employer] Patient Education 2022 [employer]. Follow Up Care 10/25/2023 23:39:34 With:Chung YOUSIF Address: [address] , [place] [address] Business (1) When:11/04/2023 [facility] 10-25-2023 Evaluation + Plan note Diagnostic Tests PendingUrine Culture 10/25/23 [facility] 07-17-2023 History of Presen t illness Narrative Reason for Appointment: Patient ID: Teodoro Upton is a 23 y.o. female who presents for Routine Visit Patient presents today for Return OB appointment. Current Medications: has a current medication list which includes the following prescription(s): lxlhmeef-omy-gg-fa and promethazine. Medical History: Active Ambulatory Problems [...] Chung Yousif DO documented in this encounter [facility] 07-03-2023 History of Presen t illness Narrative [...] raw or undercooked meat, stay away from [facility], do not change litter boxes, eat [...] Evaluation note No assessment inform ation available [facility] Work Phone: Evaluation note Diagnosis Missed menses Nausea and vomiting, unspecified vomiting type documented in this encounter [facility]* Diagnosis First trimester state, incidental Vaginal bleeding in Threatened miscarriage Threatened , unspecified as to episode of care with uncertain viability, single or unspecified fetus documented in this encounter [facility] Narrative No data available for this section [facility] Additional Instructions Please follow up as we discussed so you can have your concerns further evaluated.[facility] Work Phone: Progress note No data available for this section [facility] Discharge Instructions * Instructions* Brenda Stoner DO - 07/08/2020 [facility] ED Clinic List Healthcare Providers Services Day of Week/ Hours [facility] Services [address] [facility] Pediatric Primary Care Adult Primary Care DATA PROCESSING CONSULTANT//Specialty Clinics Friday 8:00a 4:30p [address] Adult Medicine, Pediatrics, DATA PROCESSING CONSULTANT Friday 8:30a 4:30p [facility] Surgery [address] [facility] Friday 8:30a 11:00a [facility] [address] [facility] Adult Internal Medicine ([facility]) DATA PROCESSING CONSULTANT Clinic Pediatric Clinic Friday, Friday, , Friday 8:00a 4:30p Friday 1:00p 4:30p Friday, Friday, 8:00a 5:00p; Friday 8:00a 12:30p Friday 1p 4p Friday, Friday, , Friday 8:30a 4:15p Friday 12:30p 4:15p Health Department [facility] 2 [facility] Pediatric Primary Care Adult Primary Care OB/ Friday, Friday 8a 12p 8a 4:45p [facility] [address] [place] [address] [place] [address] # Pre & Post Adoption Counseling Support / nutrition Care Reward Incentive Program [place] Location Fri, , Fri, Fri 10:00a 4:30p Thur 10:00a 7:30p [place] Location Friday - Friday 10a 4:30p [facility] DATA PROCESSING CONSULTANT [address] [facility] Adult Internal Medicine [address] [facility] [address] [facility] [address] Neuro / Headache [address] [facility] Friday 8:30a 5p [facility] [address] [facility] Fri, , , Fri 9:00a 4:30p Wed 1:00p 4:30p [facility] [address] [facility] [address] Community Hospital Friday 8:30a 5:00p [facility] [address] [facility] [address] Burn/Plastic, ENT, GI, Orthopedics, Surgical / Trauma, Urology, Vascular Friday 8:00 4:30p Call for an appointment [facility] [address] [facility] Adult Medicine, Eye Clinic, Dental Patient must be certified homeless Under age 18 not accepted Friday 8:00 4:30p [facility] [address] [facility] OB Friday, Friday, Friday, Friday 9a 5p 9a 6p Friday (OB only) [facility] [address] [facility] OB/ Friday 11a 7p , Fri, 9a 5p Friday 8a 4p 1st Friday 9a 1p Podiatry Clinic [address] [facility] Building [address] Friday 8:00 4:30 p [facility] [place] Free nurse visits [place] programs Counseling Class Call or walk in [facility] [address] [place] Various Clinics 8a 5:30p [facility] Family Medicine [facility] [address] [facility] Family Practice Friday 8a 4:30p [facility] [address] [place] [address] [address] [place] [address] Friday 8a 4:30p Friday 8a 4:30p 8a 8p Outpatient Clinics [facility] [address] [facility] Friday 9a 5p Diabetic Education Services Call for an appointment [facility] [address] [facility] Friday 8:30a 4p Dental Services [facility] [address] [facility] Must have source of income and must bring (2) recent check stubs to appointment By appointment only [facility] [address] [facility] Patient must be homeless, call for eligibility guidelines. Under age 18 NOT accepted Days and hours vary (Doors open at 8:30a day of week varies) Call for an appointment Miscellaneous Information [facility] Call for Help [phone] Call for an appointment H.E.L.P (Hospital Eligibility Link Program) toll free For financial assistance * Attachments The following attachments cannot be sent through Care Everywhere. * Bacterial Vaginosis ([place] Citizen) * UTI (Urinary Tract Infection): Female ([place] Citizen) * Vitamin D: General Info ([place] Citizen) documented in this encounter Assessments Diagnosis BV [...] DATE CREATED AUTHOR AUTHOR'S ORGANIZ ATION 09/07/2022 [facility] DATE CREATED AUTHOR AUTHOR'S ORGANIZ ATION 03/13/2023 [facility] DATE CREATED AUTHOR AUTHOR'S ORGANIZ ATION 10/27/2023 [facility] DATE CREATED AUTHOR AUTHOR'S ORGANIZ ATION 10/31/2023 [facility] DATE CREATED AUTHOR AUTHOR'S ORGANIZ ATION 01/23/2024 [facility] dical Specialists EPIC Care Teams (unrecognized [...] BE BASED ON THE PRIMARY CLINICAL RECORDS. [facility] [facility]. provides no warranty or guarantee of the accuracy or completeness of information in this document.
--- NOTE | 2024-01-27 19:08 | US_ITS ---
[address] [place] [address] [address] Patient Name: TEODORO HERNANDES MRN: [id number] date: 2000 Sex: F Assigned Patient Location: [facility] Current Patient Location: Accession/Order Number: [id number] Exam Date: 01/27/2024 19:13 Report Date: 01/28/2024 08:50 At the request of: ROBERT CULLEN Procedure: US OB BPP w non-stress EXAMINATION: US OB BPP w non-stress HISTORY:EXCESSIVE GROWTH AFFECTING O36.60X0 COMPARISON: Ultrasound OB biophysical 01/20/2024 TECHNIQUE: Ultrasound biophysical profile was performed in the radiology department. BREATHING MOVEMENTS: 2 GROSS BODY MOVEMENTS: 2 TONE: 2 QUALITATIVE AMNIOTIC FLUID VOLUME: 2 PRESENTATION: CEPHALIC HEART RATE: 157.89 bpm AMNIOTIC FLUID VOLUME: 15.45 cm GESTATIONAL AGE: 37 weeks 5 days US/US OB BPP w non-stress IMPRESSION: 1. Total biophysical profile score: 8 2. Persistent dilation of right renal pelvis, 15 mm in width. Electronically authenticated by: ZURI VITALE Date: 01/28/2024 08:50
[2024-01-27 20:37] VITALS: BP 109/63; PULSE 96
== END 2024-01-27 20:35 | disposition home or self-care (01) ==
LOC: US 07:37 → FBC 19:04
PROVIDERS: Visit Provider Physician Assistant
DX: O36.63X0 Maternal care for excessive fetal growth, third trimester, not applicable or unspecified (principal); Z3A.37 37 weeks gestation of pregnancy
CPT/HCPCS: 76818

== ENCOUNTER 2024-01-28 14:40 | Outpatient (OUT) | payer MEDICAID, SELFPAY ==
--- NOTE | 2024-01-28 14:41 | US_ITS ---
[address] [address] Patient Name: TEODORO HERNANDES MRN: [id number] date: 2000 Sex: F Assigned Patient Location: [facility] Current Patient Location: [facility] Accession/Order Number: [id number] Exam Date: 01/28/2024 14:42 Report Date: 01/28/2024 15:06 At the request of: CHUNG MAGDALENO Procedure: US OB growth EXAMINATION: US OB growth HISTORY: Excessive growth O36.60X0 COMPARISON: 01/08/24 FINDINGS: Heart Rate: 159 bpm Amniotic Fluid Volume: 16.9 cm, largest fluid pocket 5.0 cm Number: 1 Position: Cephalic presentation, longitudinal lie BIOMETRY: BPD: 9.05 cm; 36w5d; 39.20 % HC: 34.98 cm; 40w5d; 89 % AC: 38.32 cm; ; >97 % FL: 7.90 cm; 40w3d; 95.80 % EFW: 3964.59 g; >97 %, 9lb 5 oz FL/AC: 20.62 FL/BPD: 87.29 HC/AC: 0.91 GESTATIONAL AGE: Age by EDC: 37w6d ROGER by EDC: 2024-02-12 Age by US: 39w2d ROGER by US: 2024-02-02 US/US OB growth IMPRESSION: Large for gestational age, estimated weight > 97% Electronically authenticated by: LISETTE JIMENEZ Date: 01/28/2024 15:06
== END 2024-01-28 14:41 | disposition home or self-care (01) ==
LOC: NOMS 14:40
PROVIDERS: Visit Provider Obstetrics & Gynecology
DX: O36.60X0 Maternal care for excessive fetal growth, unspecified trimester, not applicable or unspecified (principal); Z3A.39 39 weeks gestation of pregnancy
CPT/HCPCS: 76816

== ENCOUNTER 2024-01-30 07:15 | Outpatient (OUT) | payer MEDICAID, SELFPAY ==
--- OUTSIDE RECORDS SUMMARY | 2024-01-30 07:18 | XMS_ITS | CCD ---
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 C Urineon 10-28-2023 Bacteria identified Cx [...] performed at: [facility], [address] [place] [address], [address] [place] [address], [facility] Comment on above: Performed By: #### 2 [id number] #### [facility] [address] [place] [address] Consent for Treatmenton 10-01 Consent for Treatment [id number] #1.00TIFF [facility] Discharge Instructionson Discharge Instructions [id number] 7#1.00TIFF [facility] Inpatient Clinical Summaryon 10-26-2023 Inpatient Clinical Summary [address] [address] Clinical Summary Person Information Name: [facility] Age[facility] 23 Years : 2000 Sex: Female PCP: NONE, XXXX Marital Status: Single Phone: [phone] Race: or Ethnicity: Non- or Language: Azerbaijani Visit Id: Visit Reason: 24 WEEKS BLEEDING Speciality: Acuity: Obs Enc Type: OB Triage Med Service: Obstetrics Arrival: 10/25/2023 23:36:04 Discharge: 10/26/2023 03:30:56 Dispo Type: Home (Routine DC) Address: [address] [id number] Provider Notes: Diagnosis: Problems Active (10/26/2023) Smoker [...] Ketones: Negative mg/dL UA Leuk Est: 500 Geradl/uL Gerald/uL UA Mucous: Trace graded/LPF UA Nitrite: [...] Referring Physician: Follow up: With: [facility] [address] [place] [address] , [place], [place] [id number] Business (1) In 9 days 11/04/2023 Patient Education Information: and Urinary Tract Infection; Vaginal Bleeding During , Second Trimester; Back Pain in Normal [facility] Inpatient Patient Summaryon 10-26-2023 Inpatient Patient Summary [address] [address] Patient Discharge Instructions PERSON INFORMATION Name: TEODORO [...] Follow up: With: Address: When: [facility], [address] [place] [address] [place] [address] Business (1) In 9 days [...] Always wi (more content not included)... Normal [facility] Insurance Correspondenceon 0 10-26-2023 Insurance Correspondence [id number] 8#1.00TIFF Normal [facility] UA with Cult Rflxon 10-26-19 24 Bacteria Auto Ql (U) Trace Normal Trace Fish [facility] Comment on above: Performed By: #### 4 [id number] #### [facility] [address] [place] [address] Bilirubin Ql (U) Negative Normal Negative [facility] Comment on above: Performed By: #### 4 [id number] #### [facility] [address] [place] [address] Clarity (U) Turbid Abnormal Clear [facility] Comment on above: Performed By: #### 4 [id number] #### [facility] [address] [place] [address] Color (U) Yellow Normal Yellow [facility] Comment on above: Result Comment: Micr oscopic readings are only performed on those samples that meet specific criteria set forth by [facility]. Performed By: #### 4 [id number] #### [facility] [address] [place] [address] Epithelial cells.squamous Auto (Urine sed) [#/Area] 5-8 Abnormal 0-2 [facility] Comment on above: Performed By: #### 4 [id number] #### [facility] [address] [place] [address] Glucose Ql (U) Negative Normal Negative [facility] Comment on above: Performed By: #### 4 [id number] #### [facility] [address] [place] [address] Hemoglobin Auto test strip (U) [Mass/Vol] Negative Normal Negative [facility] Comment on above: Performed By: #### 4 [id number] #### [facility] [address] [place] [address] Hyaline casts LM Ql (Urine sed) 0-3 Normal 0-3 [facility] Comment on above: Performed By: #### 4 [id number] #### [facility] [address] [place] [address] Ketones Auto test strip Ql (U) Negative Normal Negative [facility] Comment on above: Performed By: #### 4 [id number] #### [facility] [address] [place] [address] Leukocyte esterase Auto test strip Ql (U) 500 Gerald/uL Abnormal Negative [facility] Comment on above: Performed By: #### 4 [id number] #### [facility] [address] [place] [address] Mucus Auto Ql (U) Trace Normal Negative [facility] Comment on above: Performed By: #### 4 [id number] #### [facility] [address] [place] [address] Nitrite Auto test strip Ql (U) Negative Normal Negative [facility] Comment on above: Performed By: #### 4 [id number] #### [facility] [address] [place] [address] pH (U) 6.0 [pH] Invalid Interpretation Code 5.0-9.0 [facility] Comment on above: Performed By: #### 4 [id number] #### [facility] [address] [place] [address] Protein Ql (U) Trace Abnormal Negative [facility] Comment on above: Performed By: #### 4 [id number] #### [facility] [address] [place] [address] RBC Ql (U) 4-20 Abnormal 0-3 [facility] Comment on above: Performed By: #### 4 [id number] #### [facility] [address] [place] [address] Specific gravity (U) [Rel density] 1.030 Invalid Interpretation Code 1.005-1.030 [facility] Comment on above: Performed By: #### 4 [id number] #### [facility] [address] [place] [address] Urobilinogen (U) [Mass/Vol] Negative Normal Negative [facility] Comment on above: Performed By: #### 4 [id number] #### [facility] [address] [place] [address] WBC Auto (Urine sed) [#/Area] 16-25 Abnormal 0-5 [facility] Comment on above: Performed By: #### 4 [id number] #### [facility] [address] [place] [address] Type of Urine collection method Clean Catch Normal [facility] Comment on above: Performed By: #### 4 [id number] #### [facility] [address] [place] [address] URINALYSISOrdered By: SYSTEM SYSTEM on 10-25-2023 Bacteria [...] that meet specific criteria set forth by [facility]. Epithelial cells.squamous Auto (Urine sed) [...] Urobilinogen (U) [Mass/Vol] Negative Normal Negativemg/d L [facility] UA Auto SS WBC Auto (Urine sed) [#/Area] 16-25 graded/HPF Invalid Interpretation Code 0-5graded/HP F [facility] UA Auto SS URINALYSISOrdered By: Elijah Hernandez on 10-25-2023 UA Spec Desc Clean Catch (10/25/23 11:53 PM) Normal [facility] UA Auto SS Urinalysis macro (dipstick) panel (U)on 07-17-2023 Bilirubin, UA Negative Negative - 4(70) +++ mg/dL [facility] Blood, UA Negative Negative - 50 William/mcL [facility] Clarity, UA Clear [facility] Color, UA Yellow [facility] Glucose, UA Negative Negative - 1999(110) ++++ mg/dL [facility] Interpretation and review of laboratory results Abnormal [facility] Ketones, UA Negative Negative - 160(16) ++++ mg/dL [facility] Leukocytes, UA Positive Negative - 500+++ Gerald/mcL [facility] Nitrite, UA Negative Negative - Positive [facility] pH, UA 7.0 5 - 9 [facility] Protein, UA Negative Negative - 1999(20) ++++ mg/dL [facility] Spec Grav, UA 1.020 1 - 1.03 [facility] Urobilinogen, UA 0.2 0.2 - 12 mg/dL [facility] HCG ( test) Ql (U)o n 07-03-2023 Interpretation and review of laboratory results Abnormal [facility] Preg Test, Ur Negative [facility] Urinalysis macro (dipstick) panel (U)on 07-03-2023 Bilirubin, UA Negative Negative - 4(70) +++ mg/dL [facility] Blood, UA Negative Negative - 50 William/mcL [facility] Clarity, UA Clear [facility] Color, UA Yellow [facility] Glucose, UA Negative Negative - 1999(110) ++++ mg/dL [facility] Interpretation and review of laboratory results Normal [facility] Ketones, UA Negative Negative - 160(16) ++++ mg/dL [facility] Leukocytes, UA Negative Negative - 500+++ Gerald/mcL [facility] Nitrite, UA Negative Negative - Positive [facility] pH, UA 5.5 5 - 9 [facility] Protein, UA Negative Negative - 2000(20) ++++ mg/dL [facility] Spec Grav, UA 1.010 1 - 1.03 [facility] Urobilinogen, UA 1.0 0.2 - 12 mg/dL [facility] XR FOOT RT MIN 3 VIEWSon [...] PADDY SAPP Date: 2022-08-30 14:42 Normal [facility] CBC AUTO DIFFon 06-28-2022 BASO # 0.0 103/ul Normal 0.0-0.1 [facility] Comment on above: Performed By: #### C BC #### [facility] [address] [address] [address] Jerald Poon Basophils/100 WBC (Bld) 0.3 % Normal 0.2-2.0 [facility] Comment on above: Performed By: #### C BC #### [facility] [address] [address] [address] Jerald Poon EO # 0.1 103/ul Normal 0.0-0.7 [facility] Comment on above: Performed By: #### C BC #### [facility] [address] [address] [address] Jerald Poon Eosinophils/100 WBC (Bld) 1.1 % Normal 0.9-7.0 [facility] Comment on above: Performed By: #### C BC #### [facility] [address] [place] [address] Dr. Jerald Poon Erythrocyte distribution width (RBC) [Ratio] 14.5 % Normal 11.0-15.0 [facility] Comment on above: Performed By: #### C BC #### [facility] [address] [place] [address] Dr. Jerald Poon Hematocrit (Bld) [Volume fraction] 36.7 % Normal 36.0-48.0 [facility] Comment on above: Performed By: #### C BC #### [facility] [address] [place] [address] Dr. Jerald Poon Hemoglobin (Bld) [Mass/Vol] 13.0 g/dL Normal 12.0-16.0 [facility] Comment on above: Performed By: #### C BC #### [facility] [address] [place] [address] Dr. Jerald Poon IG # 0.04 10e3/ul Critically high 0.00-0.03 [facility] Comment on above: Performed By: #### C BC #### [facility] [address] [place] [address] Dr. Jerald Poon IG % 0.3 % Normal 0.0-0.5 [facility] Comment on above: Performed By: #### C BC #### [facility] [address] [place] [address] Dr. Jerald Poon LYMPH # 3.0 103/ul Normal 1.2-3.8 [facility] Comment on above: Performed By: #### C BC #### [facility] [address] [place] [address] Dr. Jerald Poon Lymphocytes/100 WBC (Bld) 26.2 % Normal 20.5-60.0 [facility] Comment on above: Performed By: #### C BC #### [facility] [address] [place] [address] Dr. Jearld Poon MANUAL DIFF REQ NO Normal [facility] Comment on above: Performed By: #### C BC #### [facility] [address] [address] [address] Jerald Poon MCH (RBC) [Entitic mass] 27.1 pg Normal 26.7-34.0 [facility] Comment on above: Performed By: #### C BC #### [facility] [address] [place] [address] Dr. Jerald Poon MCHC (RBC) [Mass/Vol] 35.4 g/dL Critically high 29.9-35.2 [facility] Comment on above: Performed By: #### C BC #### [facility] [address] [place] [address] Dr. Jerald Poon MCV (RBC) [Entitic vol] 76.6 fL Critically low 81.0-99.0 [facility] Comment on above: Performed By: #### C BC #### [facility] [address] [place] [address] Dr. Jerald Poon MONO # 0.8 103/ul Normal 0.3-0.8 [facility] Comment on above: Performed By: #### C BC #### [facility] [address] [place] [address] Dr. Jerald Poon Monocytes/100 WBC (Bld) 7.0 % Normal 1.7-12.0 [facility] Comment on above: Performed By: #### C BC #### [facility] [address] [place] [address] Dr. Jerald Poon NEUT # 7.5 103/ul Critically high 1.4-6.5 [facility] Comment on above: Performed By: #### C BC #### [facility] [address] [place] [address] Dr. Jerald Poon Neutrophils/100 WBC (Bld) 65.1 % Normal 43.0-75.0 [facility] Comment on above: Performed By: #### C BC #### [facility] [address] [place] [address] Dr. Jerald Poon Platelet mean volume (Bld) [Entitic vol] 10.0 fL Normal 9.5-13.5 [facility] Comment on above: Performed By: #### C BC #### [facility] [address] [place] [address] Dr. Jerald Poon PLT 387 103/ul Normal 150-450 [facility] Comment on above: Performed By: #### C BC #### [facility] [address] [place] [address] Dr. Jerald Poon RBC 4.79 106/ul Normal 4.20-5.40 [facility] Comment on above: Performed By: #### C BC #### [facility] [address] [place] [address] Dr. Jerald Poon WBC 11.6 103/ul Critically high 4.0-11.0 [facility] Comment on above: Performed By: #### C BC #### [facility] [address] [place] [address] Dr. Jerald Poon CULTURE URINEon 06-28-2022 CULTURE URINE Culture Observations: LIGHT GROWTH OF MIXED GENITAL ZACARIAS. NO POTENTIAL PATHOGENS SEEN. Normal [facility] Comment on above: Performed By: #### U RCX #### [facility] [address] [place] [address] Dr. Jerald Poon ER URINE PROFILEon 3 Bilirubin Ql (U) Negative Normal NEGATIVE [facility] Comment on above: Performed By: #### U MICRO, ERUR #### [facility] [address] [place] [address] Dr. Jerald Poon Clarity (U) CLEAR Normal CLEAR [facility] Comment on above: Performed By: #### U MICRO, ERUR #### [facility] [address] [place] [address] Dr. Jerald Poon Color (U) YELLOW Normal YELLOW [facility] Comment on above: Performed By: #### U MICRO, ERUR #### [facility] [address] [place] [address] Dr. Jerald Poon ERUNORBERTO A micrscopic examination will be performed if indicated. Normal [facility] Comment on above: Performed By: #### U MICRO, ERUR #### [facility] [address] [place] [address] Dr. Jerald Poon Glucose Ql (U) Negative Normal NEGATIVE [facility] Comment on above: Performed By: #### U MICRO, ERUR #### [facility] [address] [address] [address] Jerald Poon Hemoglobin Ql (U) Negative Normal NEGATIVE [facility] Comment on above: Performed By: #### U MICRO, ERUR #### [facility] [address] [address] [address] Jerald Poon Ketones Ql (U) 40 mg/dl Abnormal NEGATIVE [facility] Comment on above: Performed By: #### U MICRO, ERUR #### [facility] [address] [address] [address] Jerald Poon LEUKOCYTES TRACE Abnormal NEGATIVE [facility] Comment on above: Performed By: #### U MICRO, ERUR #### [facility] [address] [place] [address] Dr. Jerald Poon Nitrite Ql (U) Negative Normal NEGATIVE [facility] Comment on above: Performed By: #### U MICRO, ERUR #### [facility] [address] [place] [address] Dr. Jerald Poon pH (U) 6.0 [pH] Normal 5-9 [facility] Comment on above: Performed By: #### U MICRO, ERUR #### [facility] [address] [place] [address] Dr. Jerald Poon SPEC GRAVITY >=1.030 Abnormal 1.005-<=1.02 5 [facility] Comment on above: Performed By: #### U MICRO, ERUR #### [facility] [address] [place] [address] Dr. Jerald Poon UA PROTEIN Negative Normal NEGATIVE/ TRACE [facility] Comment on above: Performed By: #### U MICRO, ERUR #### [facility] [address] [place] [address] Dr. Jerald Poon UR MICRO IND INDICATED Normal [facility] Comment on above: Performed By: #### U MICRO, ERUR #### [facility] [address] [place] [address] Dr. Jerlad Poon Urobilinogen Qn (U) 0.2 {Lyly'U}/dL Normal 0.2 - 1. 0 [facility] Comment on above: Performed By: #### U MICRO, ERUR #### [facility] [address] [place] [address] Dr. Jerald Poon PREG QUANT HCGon 06-28-2022 HCG QUANT <1 Normal [facility] Comment on above: Performed By: #### P REGQNT #### [facility] [address] [place] [address] Dr. Jerald Poon HCG RANGE SEE BELOW Normal [facility] Comment on above: Result Comment: 5-50 0.2-1 WEEK 50-500 1-2 WEEKS 100-5,000 2-3 WEEKS 500-10,000 3-4 WEEKS 1,000-50,000 4-5 WEEKS 10,000-100,000 5-6 WEEKS 15,000-200,000 6-8 WEEKS 10,000-100,000 2-3 MONTHS Performed By: #### P REGQNT #### [facility] [address] [place] [address] Dr. Jerald Poon PROF CHEM 8 (BAS METB)on Anion gap [Moles/Vol] 14.0 mmol/L Normal [facility] Comment on above: Performed By: #### C BC #### [facility] [address] [place] [address] Dr. Jerald Poon Calcium [Mass/Vol] 9.6 mg/dL Normal 8.5-10.1 [facility] Comment on above: Performed By: #### C BC #### [facility] [address] [place] [address] Dr. Jerald Poon Chloride [Moles/Vol] 101 mmol/L Normal 98-107 [facility] Comment on above: Performed By: #### C BC #### [facility] [address] [place] [address] Dr. Jerald Poon CO2 [Moles/Vol] 25.4 mmol/L Normal 21.0-32.0 [facility] Comment on above: Performed By: #### C BC #### [facility] [address] [address] [address] Jerald Poon Creatinine [Mass/Vol] 0.92 mg/dL Normal 0.55-1.02 [facility] Comment on above: Performed By: #### C BC #### [facility] [address] [address] [address] Jerald Poon EGFR-AF SOMALI >60 Normal >=[address] [facility] Comment on above: Performed By: #### C BC #### [facility] [address] [address] [address] Jerald Poon EGFR-NON AF SOMALI >60 Normal >=60 [facility] Comment on above: Performed By: #### C BC #### [facility] [address] [place] [address] Dr. Jerald Poon Glucose [Mass/Vol] 101 mg/dL Normal 74-106 [facility] Comment on above: Performed By: #### C BC #### [facility] [address] [place] [address] Dr. Jerald Poon Potassium [Moles/Vol] 3.4 mmol/L Critically low 3.5-5.1 [facility] Comment on above: Performed By: #### C BC #### [facility] [address] [place] [address] Dr. Jerald Poon Sodium [Moles/Vol] 137 mmol/L Normal 136-145 [facility] Comment on above: Performed By: #### C BC #### [facility] [address] [place] [address] Dr. Jerald Poon Urea nitrogen [Mass/Vol] 11.0 mg/dL Normal 7.0-18.0 [facility] Comment on above: Performed By: #### C BC #### [facility] [address] [place] [address] Dr. Jerald Poon Urea nitrogen/Creatinine [Mass ratio] 12.0 mg/mg Normal [facility] Comment on above: Performed By: #### C BC #### [facility] [address] [place] [address] Dr. Jerald Poon TSHon 06-28-2022 TSH 1.319 uIU/mL Normal 0.358-3.740 [facility] Comment on above: Performed By: #### C BC #### [facility] [address] [place] [address] Dr. Jerald Poon URINE MICROSCOPIC ONLYon BACTERIA SMALL Abnormal NONE SEEN [facility] Comment on above: Performed By: #### U MICRO, ERUR #### [facility] [address] [place] [address] Dr. Jerald Poon Bacteria identified Cx Nom (U) INDICATED Normal [facility] Comment on above: Performed By: #### U MICRO, ERUR #### [facility] [address] [place] [address] Dr. Jerald Poon CAST NONE SEEN Normal NONE SEEN [facility] Comment on above: Performed By: #### U MICRO, ERUR #### [facility] [address] [place] [address] Dr. Jerald Poon Crystals LM Nom (Urine sed) NONE SEEN Normal NONE SEEN [facility] Comment on above: Performed By: #### U MICRO, ERUR #### [facility] [address] [place] [address] Dr. Jerald Poon Epithelial cells LM Ql (Urine sed) FEW Abnormal NONE SEEN /RARE [facility] Comment on above: Performed By: #### U MICRO, ERUR #### [facility] [address] [place] [address] Dr. Jerald Poon MUCOUS NONE SEEN Normal NONE SEEN [facility] Comment on above: Performed By: #### U MICRO, ERUR #### [facility] [address] [place] [address] Dr. Jerald Poon RBC NONE SEEN Abnormal 0-2 [facility] Comment on above: Performed By: #### U MICRO, ERUR #### [facility] [address] [place] [address] Dr. Jerald Poon WBC 2-5 Abnormal NONE SEEN [facility] Comment on above: Performed By: #### U MICRO, ERUR #### [facility] [address] [address] [address] Jerald Poon CBC AUTO DIFFon 04-01-2022 BASO # 0.0 103/ul Normal 0.0-0.1 [facility] Comment on above: Performed By: #### C BC #### [facility] [address] [place] [address] Dr. Jerald Poon Basophils/100 WBC (Bld) 0.5 % Normal 0.2-2.0 [facility] Comment on above: Performed By: #### C BC #### [facility] [address] [place] [address] Dr. Jerald Poon EO # 0.1 103/ul Normal 0.0-0.7 [facility] Comment on above: Performed By: #### C BC #### [facility] [address] [place] [address] Dr. Jerald Poon Eosinophils/100 WBC (Bld) 1.7 % Normal 0.9-7.0 [facility] Comment on above: Performed By: #### C BC #### [facility] [address] [place] [address] Dr. Jerald Poon Erythrocyte distribution width (RBC) [Ratio] 14.2 % Normal 11.0-15.0 [facility] Comment on above: Performed By: #### C BC #### [facility] [address] [place] [address] Dr. Jerald Poon Hematocrit (Bld) [Volume fraction] 36.7 % Normal 36.0-48.0 [facility] Comment on above: Performed By: #### C BC #### [facility] [address] [place] [address] Dr. Jerald Poon Hemoglobin (Bld) [Mass/Vol] 12.1 g/dL Normal 12.0-16.0 [facility] Comment on above: Performed By: #### C BC #### [facility] [address] [place] [address] Dr. Jerald Poon IG # 0.01 10e3/ul Normal 0.00-0.03 [facility] Comment on above: Performed By: #### C BC #### [facility] [address] [place] [address] Dr. Jerald Poon IG % 0.1 % Normal 0.0-0.5 [facility] Comment on above: Performed By: #### C BC #### [facility] [address] [place] [address] Dr. Jerald Poon LYMPH # 2.3 103/ul Normal 1.2-3.8 [facility] Comment on above: Performed By: #### C BC #### [facility] [address] [place] [address] Dr. Jerald Poon Lymphocytes/100 WBC (Bld) 30.8 % Normal 20.5-60.0 [facility] Comment on above: Performed By: #### C BC #### [facility] [address] [place] [address] Dr. Jerald Poon MANUAL DIFF REQ NO Normal [facility] Comment on above: Performed By: #### C BC #### [facility] [address] [place] [address] Dr. Jerald Poon MCH (RBC) [Entitic mass] 27.3 pg Normal 26.7-34.0 [facility] Comment on above: Performed By: #### C BC #### [facility] [address] [place] [address] Dr. Jerald Poon MCHC (RBC) [Mass/Vol] 33.0 g/dL Normal 29.9-35.2 [facility] Comment on above: Performed By: #### C BC #### [facility] [address] [place] [address] Dr. Jerald Poon MCV (RBC) [Entitic vol] 82.7 fL Normal 81.0-99.0 [facility] Comment on above: Performed By: #### C BC #### [facility] [address] [place] [address] Dr. Jerald Poon MONO # 0.8 103/ul Normal 0.3-0.8 [facility] Comment on above: Performed By: #### C BC #### [facility] [address] [place] [address] Dr. Jerald Poon Monocytes/100 WBC (Bld) 10.6 % Normal 1.7-12.0 [facility] Comment on above: Performed By: #### C BC #### [facility] [address] [place] [address] Dr. Jerald Poon NEUT # 4.2 103/ul Normal 1.4-6.5 [facility] Comment on above: Performed By: #### C BC #### [facility] [address] [place] [address] Dr. Jerald Poon Neutrophils/100 WBC (Bld) 56.3 % Normal 43.0-75.0 [facility] Comment on above: Performed By: #### C BC #### [facility] [address] [place] [address] Dr. Jerald Poon Platelet mean volume (Bld) [Entitic vol] 10.2 fL Normal 9.5-13.5 [facility] Comment on above: Performed By: #### C BC #### [facility] [address] [place] [address] Dr. Jerald Poon PLT 375 103/ul Normal 150-450 [facility] Comment on above: Performed By: #### C BC #### [facility] [address] [place] [address] Dr. Jerald Poon RBC 4.44 106/ul Normal 4.20-5.40 [facility] Comment on above: Performed By: #### C BC #### [facility] [address] [place] [address] Dr. Jerald Poon WBC 7.5 103/ul Normal 4.0-11.0 [facility] Comment on above: Performed By: #### C BC #### [facility] [address] [place] [address] Dr. Jerald Poon ER URINE PROFILEon 2 Bilirubin Ql (U) Negative Normal NEGATIVE [facility] Comment on above: Performed By: #### C BC #### [facility] [address] [place] [address] Dr. Jerald Poon Clarity (U) CLEAR Normal CLEAR [facility] Comment on above: Performed By: #### C BC #### [facility] [address] [address] [address] Jerald Poon Color (U) YELLOW Normal YELLOW [facility] Comment on above: Performed By: #### C BC #### [facility] [address] [address] [address] Jerald CEBALLOS A micrscopic examination will be performed if indicated. Normal [facility] Comment on above: Performed By: #### C BC #### [facility] [address] [address] [address] Jerald Poon Glucose Ql (U) Negative Normal NEGATIVE [facility] Comment on above: Performed By: #### C BC #### [facility] [address] [place] [address] Dr. Jerald Poon Hemoglobin Ql (U) Negative Normal NEGATIVE [facility] Comment on above: Performed By: #### C BC #### [facility] [address] [place] [address] Dr. Jerald Poon Ketones Ql (U) Negative Normal NEGATIVE [facility] Comment on above: Performed By: #### C BC #### [facility] [address] [place] [address] Dr. Jerald Poon LEUKOCYTES Negative Normal NEGATIVE [facility] Comment on above: Performed By: #### C BC #### [facility] [address] [place] [address] Dr. Jerald Poon Nitrite Ql (U) Negative Normal NEGATIVE [facility] Comment on above: Performed By: #### C BC #### [facility] [address] [place] [address] Dr. Jerald Poon pH (U) 7.0 [pH] Normal 5-9 [facility] Comment on above: Performed By: #### C BC #### [facility] [address] [place] [address] Dr. Jerald Poon SPEC GRAVITY 1.025 Normal 1.005-<=1.02 5 [facility] Comment on above: Performed By: #### C BC #### [facility] [address] [place] [address] Dr. Jerald Poon UA PROTEIN Negative Normal NEGATIVE/ TRACE [facility] Comment on above: Performed By: #### C BC #### [facility] [address] [address] [address] Jerald Poon UR MICRO IND NOT INDICATED Normal [facility] Comment on above: Performed By: #### C BC #### [facility] [address] [place] [address] Dr. Jerald Poon Urobilinogen Qn (U) 1.0 {Lyly'U}/dL Normal 0.2 - 1. 0 [facility] Comment on above: Performed By: #### C BC #### [facility] [address] [place] [address] Dr. Jerald Poon PREG QUANT HCGon 04-01-2022 HCG QUANT 1 mIU/mL Normal [facility] Comment on above: Performed By: #### P REGQNT #### [facility] [address] [place] [address] Dr. Jerald Poon HCG RANGE SEE BELOW Normal [facility] Comment on above: Result Comment: 5-50 0.2-1 WEEK 50-500 1-2 WEEKS 100-5,000 2-3 WEEKS 500-10,000 3-4 WEEKS 1,000-50,000 4-5 WEEKS 10,000-100,000 5-6 WEEKS 15,000-200,000 6-8 WEEKS 10,000-100,000 2-3 MONTHS Performed By: #### P REGQNT #### [facility] [address] [place] [address] Dr. Jerald Poon PROF 14(COMP METB)on 022 Albumin [Mass/Vol] 3.6 g/dL Normal 3.4-5.0 [facility] Comment on above: Performed By: #### C MP #### [facility] [address] [place] [address] Dr. Jerald Poon Albumin/Globulin [Mass ratio] 0.8 {ratio} Normal [facility] Comment on above: Performed By: #### C MP #### [facility] [address] [address] [address] Jerald Poon ALP [Catalytic activity/Vol] 65 U/L Normal 46-116 [facility] Comment on above: Performed By: #### C MP #### [facility] [address] [place] [address] Dr. Jerald Poon ALT [Catalytic activity/Vol] 22 U/L Normal 14-59 [facility] Comment on above: Performed By: #### C MP #### [facility] [address] [address] [address] Jerald Poon Anion gap [Moles/Vol] 10.3 mmol/L Normal Th [facility] Comment on above: Performed By: #### C MP #### [facility] [address] [place] [address] Dr. Jerald Poon AST [Catalytic activity/Vol] 14 U/L Critically low 15-37 [facility] Comment on above: Performed By: #### C MP #### [facility] [address] [place] [address] Dr. Jerald Poon Bilirubin [Mass/Vol] 0.1 mg/dL Critically low 0.2-1.0 [facility] Comment on above: Performed By: #### C MP #### [facility] [address] [place] [address] Dr. Jerald Poon Calcium [Mass/Vol] 8.6 mg/dL Normal 8.5-10.1 [facility] Comment on above: Performed By: #### C MP #### [facility] [address] [place] [address] Dr. Jerald Poon Chloride [Moles/Vol] 104 mmol/L Normal 98-107 [facility] Comment on above: Performed By: #### C MP #### [facility] [address] [address] [address] Jerald Poon CO2 [Moles/Vol] 28.1 mmol/L Normal 21.0-32.0 [facility] Comment on above: Performed By: #### C MP #### [facility] [address] [place] [address] Dr. Jerald Poon Creatinine [Mass/Vol] 0.99 mg/dL Normal 0.55-1.02 [facility] Comment on above: Performed By: #### C MP #### [facility] [address] [address] [address] Jerald Poon EGFR-AF SOMALI >60 Normal >=[address] [facility] Comment on above: Performed By: #### C MP #### [facility] [address] [address] [address] Jerald Poon EGFR-NON AF SOMALI >60 Normal >=60 [facility] Comment on above: Performed By: #### C MP #### [facility] [address] [address] [address] Jerald Poon Globulin (S) [Mass/Vol] 4.5 g/dL Normal [facility] Comment on above: Performed By: #### C MP #### [facility] [address] [place] [address] Dr. Jerald Poon Glucose [Mass/Vol] 94 mg/dL Normal 74-106 [facility] Comment on above: Performed By: #### C MP #### [facility] [address] [address] [address] Jerald Poon Potassium [Moles/Vol] 3.4 mmol/L Critically low 3.5-5.1 [facility] Comment on above: Performed By: #### C MP #### [facility] [address] [address] [address] Jerald Poon Protein [Mass/Vol] 8.1 g/dL Normal 6.4-8.2 [facility] Comment on above: Performed By: #### C MP #### [facility] [address] [address] [address] Jerald Poon Sodium [Moles/Vol] 139 mmol/L Normal 136-145 [facility] Comment on above: Performed By: #### C MP #### [facility] [address] [address] [address] Jerald Poon Urea nitrogen [Mass/Vol] 8.0 mg/dL Normal 7.0-18.0 [facility] Comment on above: Performed By: #### C MP #### [facility] [address] [place] [address] Dr. Jerald Poon Urea nitrogen/Creatinine [Mass ratio] 8.1 mg/mg Normal [facility] Comment on above: Performed By: #### C MP #### [facility] [address] [place] [address] Dr. Jerald Poon US PELVIS TRANSVAGon 022 [...] by: LUH MANRIQUE Date: 2022-04-01 21:55 Normal [facility] Automated erythrocytes count in urine sediment (number/area)Ordered By: Andres Sesay on 10-19-2021 RBC Auto (Urine sed) [#/Area] 1-2 [HPF] [facility] Automated leukocytes count i n urine sediment (number/area)Ordered By: Anders Sesay on 10-19-2021 WBC Auto (Urine sed) [#/Area] 3-4 [HPF] [facility] Basophils Auto (Bld) [#/Vol] Ordered By: Anders Sesay on 10-19-2021 Basophils (Bld) [#/Vol] 0.1 10*3/uL 0.0-0.2 [facility] Basophils/100 WBC Auto (Bld) Ordered By: Anders Sesay on 10-19-2021 Basophils/100 WBC (Bld) 0.6 % [facility] Bilirubin Test strip Ql (U)O rdered By: Anders Sesay on 10-19-2021 Bilirubin Ql (U) Negative Negative [facility] Blood hemoglobin measurement (mass/volume)Ordered By: Anders Sesay on 10-19-2021 Hemoglobin (Bld) [Mass/Vol] 13.2 g/dL 11.8-15.4 [facility] Blood leukocytes automated c ount (number/volume)Ordered By: Anders Sesay on 10-19-2021 WBC (Bld) [#/Vol] 9.1 10*3/uL 4.5-11.[address] [facility] Body fluid albumin measureme nt (mass/volume)Ordered By: Anders Sesay on 10-19-2021 Albumin (Body fld) [Mass/Vol] 3.8 g/dL 3.2-5.5 [facility] Color Auto (U)Ordered By: Jason Sesay on 10-19-2021 Color (U) Yellow Yellow [facility] Creatinine and Glomerular fi ltration rate.predicted panel (S/P/Bld)Ordered By: Anders Sesay on 10-19-2021 Creatinine [Mass/Vol] 0.87 mg/dL 0.44-1.03 [facility] Eosinophils Auto (Bld) [#/Vo l]Ordered By: Anders Sesay on 10-19-2021 Eosinophils (Bld) [#/Vol] 0.1 10*3/uL 0.0-0.45 [facility] Eosinophils/100 WBC Auto (Bl d)Ordered By: Anders Sesay on 10-19-2021 Eosinophils/100 WBC (Bld) 0.9 % [facility] Erythrocyte distribution wid th Auto (RBC) [Ratio]Ordered By: Anders Sesay on 10-19-2021 Erythrocyte distribution width (RBC) [Ratio] 16.4 % 11.9-15.3 [facility] Estimated glomerular filtrat ion rate (GFR) non- AmericanOrdered By: Anders Sesay on 10-19-2021 GFR/1.73 sq M.predicted among non-blacks MDRD (S/P/Bld) [Vol rate/Area] > 60 mL/Min [facility] Globulin Calc (S) [Mass/Vol] Ordered By: Anders Sesay on 10-19-2021 Globulin (S) [Mass/Vol] 4.3 g/dL [facility] HCG ( test) IA.rapi d Ql (U)Ordered By: Anders Sesay on 10-19-2021 HCG ( test) Ql (U) Negative [facility] Hematocrit Auto (Bld) [Volum e fraction]Ordered By: Anders Sesay on 10-19-2021 Hematocrit (Bld) [Volume fraction] 40.2 % 34.0-46.4 [facility] Ketones Auto test strip (U) [Mass/Vol]Ordered By: Anders Sesay on 10-19-2021 Ketones (U) [Mass/Vol] Negative Negative [facility] - Hematology and Cell countsOrdered By: Anders Sesay on 10-19-2021 Nucleated RBC/100 WBC (Bld) [Ratio] 0.2 % 0-0.5 [facility] - UrinalysisOrder ed By: Anders Sesay on 10-19-2021 Hyaline casts LM Ql (Urine sed) 0-8 [LPF] [facility] Lymphocytes Auto (Bld) [#/Vo l]Ordered By: Anders Sesay on 10-19-2021 Lymphocytes (Bld) [#/Vol] 2.4 10*3/uL 1.00-4.8 [facility] Lymphocytes/100 WBC Auto (Bl d)Ordered By: Anders Sesay on 10-19-2021 Lymphocytes/100 WBC (Bld) 26.7 % [facility] MCH Auto (RBC) [Entitic mass ]Ordered By: Anders Sesay on 10-19-2021 MCH (RBC) [Entitic mass] 26.3 pg 24.7-34.3 [facility] MCHC Auto (RBC) [Mass/Vol]Or dered By: Anders Sesay on 10-19-2021 MCHC (RBC) [Mass/Vol] 32.9 g/dL 32.0-35.0 [facility] MCV Auto (RBC) [Entitic vol] Ordered By: Anders Sesay on 10-19-2021 MCV (RBC) [Entitic vol] 80.1 fL 80-100 [facility] Monocytes Auto (Bld) [#/Vol] Ordered By: Anders Sesay on 10-19-2021 Monocytes (Bld) [#/Vol] 0.7 10*3/uL 0.0-0.8 [facility] Monocytes/100 WBC Auto (Bld) Ordered By: Anders Sesay on 10-19-2021 Monocytes/100 WBC (Bld) 7.6 % [facility] Neutrophils Auto (Bld) [#/Vo l]Ordered By: Anders Sesay on 10-19-2021 Neutrophils (Bld) [#/Vol] 5.8 10*3/uL 1.8-7.7 [facility] Neutrophils/100 WBC Auto (Bl d)Ordered By: Anders Sesay on 10-19-2021 Neutrophils/100 WBC (Bld) 64.2 % [facility] Nitrite Test strip Ql (U)Ord ered By: Anders Sesay on 10-19-2021 Nitrite Ql (U) Negative Negative [facility] No Panel InformationOrdered By: Anders Sesay on 10-19-2021 Estimated GFR () > 60 mL/Min [facility] Comment on above: GFR estimated refere nce range: According to KDOQI guidelines, <60 ml/min/1.73m2 is sufficient to diagnose a patient with chronic kidney disease. Pharmacy Creatinine Clearance (Chem 147.41 [facility] Platelet mean volume Auto (B ld) [Entitic vol]Ordered By: Anders Sesay on 10-19-2021 Platelet mean volume (Bld) [Entitic vol] 8.6 fL 6.3-10.7 [facility] Platelets Auto (Bld) [#/Vol] Ordered By: Anders Sesay on 10-19-2021 Platelets (Bld) [#/Vol] 395 10*3/uL 150-450 [facility] Protein Auto test strip (U) [Mass/Vol]Ordered By: Anders Sesay on 10-19-2021 Protein (U) [Mass/Vol] Negative Negative [facility] Protein [Mass/volume] in Ser um or PlasmaOrdered By: Anders Sesay on 10-19-2021 Protein [Mass/Vol] 8.1 g/dL 6.1-7.[address] [facility] RBC Auto (Bld) [#/Vol]Ordere d By: Anders Sesay on 10-19-2021 RBC (Bld) [#/Vol] 5.02 10*6/uL 3.60-5.00 [facility] Serum or plasma alanine aoyub otransferase measurement without P-5'-P (enzymatic activiOrdered By: Anders Sesay on 10-19-2021 ALT No additional P-5'-P [Catalytic activity/Vol] 20 U/L 10-60 [facility] Serum or plasma albumin/glob ulin mass ratioOrdered By: Anders Sesay on 10-19-2021 Albumin/Globulin [Mass ratio] 0.9 {ratio} [facility] Serum or plasma alkaline cosmo sphatase measurement (enzymatic activity/volume)Ordered By: Anders Sesay on 10-19-2021 ALP [Catalytic activity/Vol] 55 U/L 32-92 [facility] Serum or plasma aspartate am inotransferase measurement (enzymatic activity/volume)Ordered By: Anders Sesay on 10-19-2021 AST [Catalytic activity/Vol] 17 U/L 10-42 [facility] Serum or plasma calcium joann urement (mass/volume)Ordered By: Anders Sesay on 10-19-2021 Calcium [Mass/Vol] 9.1 mg/dL 8.2-10.[address] [facility] Serum or plasma chloride adan surement (moles/volume)Ordered By: Anders Sesay on 10-19-2021 Chloride [Moles/Vol] 103 mmol/L 95-114 [facility] Serum or plasma glucose joann urement (mass/volume)Ordered By: Anders Sesay on 10-19-2021 Glucose [Mass/Vol] 105 mg/dL 70-[address] [facility] Comment on above: ADA recommended refe rence range Random Glucose Reference Range is dependent on time and content of last meal. Glucose of more than 200 mg/dL in a nonstressed, ambulatory subject supports the diagnosis of Diabetes Mellitus. Serum or plasma potassium me asurement (moles/volume)Ordered By: Anders Sesay on 10-19-2021 Potassium [Moles/Vol] 3.7 mmol/L 3.5-5.1 [facility] Serum or plasma sodium measu rement (moles/volume)Ordered By: Anders Sesay on 10-19-2021 Sodium [Moles/Vol] 137 mmol/L 136-[address] [facility] Serum or plasma total biliru bin measurement (mass/volume)Ordered By: Anders Sesay on 10-19-2021 Bilirubin [Mass/Vol] 0.3 mg/dL 0.3-1.2 [facility] Serum or plasma total carbon dioxide measurement (moles/volume)Ordered By: Anders Sesay on 10-19-2021 CO2 [Moles/Vol] 24.2 mmol/L 22.0-30.0 [facility] Serum or plasma urea nitroge n measurement (mass/volume)Ordered By: Anders Sesay on 10-19-2021 Urea nitrogen [Mass/Vol] 7 mg/dL 9- [facility] Specific gravity Auto test s trip (U) [Rel density]Ordered By: Anders Sesay on 10-19-2021 Specific gravity (U) [Rel density] 1.014 1.001-1.030 [facility] Squamous epithelial cells de tection in urine sediment by light microscopyOrdered By: Anders Sesay on 10-19-2021 Epithelial cells.squamous LM Ql (Urine sed) 3-4 [HPF] [facility] Urine bacteria detection by automated methodOrdered By: Anders Sesay on 10-19-2021 Bacteria Auto Ql (U) 1+ None Seen [facility] Urine clarity by refractomet ry automatedOrdered By: Anders Sesay on 10-19-2021 Clarity Refractometry automated (U) Clear Clear [facility] Urine glucose measurement by automated test strip (mass/volume)Ordered By: Anders Sesay on 10-19-2021 Glucose Auto test strip (U) [Mass/Vol] Normal mg/dL Normal [facility] Urine hemoglobin detection b y automated test stripOrdered By: Anders Sesay on 10-19-2021 Hemoglobin Auto test strip Ql (U) Negative Negative [facility] Urine leukocyte esterase det ection by automated test stripOrdered By: Anders Sesay on 10-19-2021 Leukocyte esterase Auto test strip Ql (U) 1+ Negative [facility] Urobilinogen Auto test strip (U) [Mass/Vol]Ordered By: Anders Sesay on 10-19-2021 Urobilinogen (U) [Mass/Vol] Normal mg/dL Normal [facility] pH Auto test strip (U)Ordere d By: Anders Sesay on 10-19-2021 pH (U) 5.5 [pH] 5.0-9.0 [facility] US DUP ABD PEL RETRO SCROT [...] MD 07/14/20 Edited Result - FINAL Normal [facility] US NON OB TRANSVAGINALon US NON [...] MD 07/14/20 Edited Result - FINAL Normal [facility] Chlamydia/GC,DNA Ampon 07-10 Chlamydia Probe Negative Normal NEG [facility] Comment on above: Result Comment: CHLA [...] Performed By: #### U HCG, UAMIC #### [facility] [address] [place] [id number] [employer] Specialist: Campos Avilez MD Gonorrhea Probe Negative Normal NEG [facility] Comment on above: Result Comment: NEIS [...] Performed By: #### U HCG, UAMIC #### [facility] [address] [place] [id number] [employer] Specialist: Campos Avilez MD Cult,Urineon 07-09-2020 Cult,Urine Specimen Description .CLEAN CATCH URINE Special Requests NOT REPORTED Culture ESCHERICHIA COLI >[id number] CFU/ML Report Status FINAL 07/09/2020 SUSCEPTIBILITY Organism [...] <=20 SUSCEPTIBLE Piperacillin/Tazobac her <=4 SUSCEPTIBLE Normal [facility] Comment on above: Performed By: #### U HCG, UAMIC #### [place] [address] [employer] Specialist: Campos Avilez MD ABO/Rh(D)on 07-08-2020 ABO/Rh(D) Positive Normal [facility] Comment on above: Performed By: #### A [facility] #### [place] [address] [employer] Specialist: Campos Avilez MD CBC with Diffon 07-08-2020 Abs. Basophil 0.04 k/uL Normal 0.00-0.20 [facility] Comment on above: Performed By: #### C P, CDP, COSMO, BHCG, MG, VD25, LIP #### [facility] [employer] [address] [place] [address] [employer] Specialist: Campos Avilez MD Abs.Imm.Granulocyte 0.04 k/uL Normal 0.00-0.30 [facility] Comment on above: Performed By: #### C P, CDP, COSMO, BHCG, MG, VD25, LIP #### [facility] [address] [address] [place] [address] [employer] Specialist: Campos Avilez MD Abs.Neutrophil (Seg) 8.16 k/uL High 1.80-8.00 [facility] Comment on above: Performed By: #### C P, CDP, COSMO, BHCG, MG, VD25, LIP #### [address] [address] [employer] Specialist: Campos Avilez MD Basophils/100 WBC (Bld) 0 % Normal 0-2 [facility] Comment on above: Performed By: #### C P, CDP, COSMO, BHCG, MG, VD25, LIP #### [address] [address] [employer] Specialist: Campos Avilez MD Eosinophils (Bld) [#/Vol] 0.10 10*3/uL Normal 0.00-0.44 [facility] Comment on above: Performed By: #### C P, CDP, COSMO, BHCG, MG, VD25, LIP #### [place] [address] [employer] Specialist: Campos Avilez MD Eosinophils/100 WBC (Bld) 1 % Normal 1-4 [facility] Comment on above: Performed By: #### C P, CDP, COSMO, BHCG, MG, VD25, LIP #### [place] [address] [employer] Specialist: Campos Avilez MD Erythrocyte distribution width (RBC) [Ratio] 14.0 % Normal 11.8-14.4 [facility] Comment on above: Performed By: #### C P, CDP, COSMO, BHCG, MG, VD25, LIP #### [address] [address] [employer] Specialist: Campos Avilez MD Hematocrit (Bld) [Volume fraction] 34.3 % Low 36.3-47.1 [facility] Comment on above: Performed By: #### C P, CDP, COSMO, BHCG, MG, VD25, LIP #### [address] [address] [employer] Specialist: Campos Avilez MD Hemoglobin (Bld) [Mass/Vol] 11.1 g/dL Low 11.9-15.1 [facility] Comment on above: Performed By: #### C P, CDP, COSMO, BHCG, MG, VD25, LIP #### [address] [address] [employer] Specialist: Campos Avilez MD Immature granulocytes (Bld) [#/Vol] 0 % Normal 0 [facility] Comment on above: Performed By: #### C P, CDP, COSMO, BHCG, MG, VD25, LIP #### [place] [address] [employer] Specialist: Campos Avilez MD Lymphocytes (Bld) [#/Vol] 1.77 10*3/uL Normal 1.20-5.20 [facility] Comment on above: Performed By: #### C P, CDP, COSMO, BHCG, MG, VD25, LIP #### [place] [address] [employer] Specialist: Campos Avilez MD Lymphocytes/100 WBC (Bld) 16 % Low 25-45 [facility] Comment on above: Performed By: #### C P, CDP, COSMO, BHCG, MG, VD25, LIP #### [place] [address] [employer] Specialist: Camops Avilez MD MCH (RBC) [Entitic mass] 26.6 pg Normal 25.0-35.0 [facility] Comment on above: Performed By: #### C P, CDP, COSMO, BHCG, MG, VD25, LIP #### [address] [address] [employer] Specialist: Campos Avilez MD MCHC (RBC) [Mass/Vol] 32.4 g/dL Normal 28.4-34.8 [facility] Comment on above: Performed By: #### C P, CDP, COSMO, BHCG, MG, VD25, LIP #### [address] [address] [employer] Specialist: Campos Avilez MD MCV (RBC) [Entitic vol] 82.3 fL Normal 78.0-102.0 [facility] Comment on above: Performed By: #### C P, CDP, COSMO, BHCG, MG, VD25, LIP #### [address] [address] [employer] Specialist: Campos Avilez MD Monocytes (Bld) [#/Vol] 0.73 10*3/uL Normal 0.10-1.40 [facility] Comment on above: Performed By: #### C P, CDP, COSMO, BHCG, MG, VD25, LIP #### [place] [address] [employer]ist: Campos Avilez MD Monocytes/100 WBC (Bld) 7 % Normal 2-8 [facility] Comment on above: Performed By: #### C P, CDP, COSMO, BHCG, MG, VD25, LIP #### [address] [address] [employer] Specialist: Campos Avilez MD Neutrophil (Seg) 75 % High 34-64 [facility] Comment on above: Performed By: #### C P, CDP, COSMO, BHCG, MG, VD25, LIP #### [address] [address] [employer] Specialist: Campos Avilez MD NRBC Automated 0.0 per 100 WBC Normal 0.0 [facility] Comment on above: Performed By: #### C P, CDP, COSMO, BHCG, MG, VD25, LIP #### [address] [address] [employer] Specialist: Campos Avilez MD Platelet mean volume (Bld) [Entitic vol] 11.8 fL Normal 8.1-13.5 [facility] Comment on above: Performed By: #### C P, CDP, COSMO, BHCG, MG, VD25, LIP #### [address] [address] [employer] Specialist: Campos Avilez MD Platelets (Bld) [#/Vol] 288 10*3/uL Normal 138-453 [facility] Comment on above: Performed By: #### C P, CDP, COSMO, BHCG, MG, VD25, LIP #### [address] [address] [employer] Specialist: Campos Avilez MD RBC (Bld) [#/Vol] 4.17 10*6/uL Normal 3.95-5.11 [facility] Comment on above: Performed By: #### C P, CDP, COSMO, BHCG, MG, VD25, LIP #### [address] [address] [employer] Specialist: Campos Avilez MD WBC (Bld) [#/Vol] 10.8 10*3/uL Normal 4.5-13.5 [facility] Comment on above: Performed By: #### C P, CDP, COSMO, BHCG, MG, VD25, LIP #### [address] [address] [employer] Specialist: Campos Avilez MD Auto Diff Performed NOT REPORTED Normal [facility] Comment on above: Performed By: #### C P, CDP, COSMO, BHCG, MG, VD25, LIP #### [address] [address] [employer] Specialist: Campos Avilez MD Platelets (Bld) [#/Vol] NOT REPORTED Normal [facility] Comment on above: Performed By: #### C P, CDP, COSMO, BHCG, MG, VD25, LIP #### [address] [address] [employer] Specialist: Campos Avilez MD RBC morphology finding Nom (Bld) NOT REPORTED Normal [facility] Comment on above: Performed By: #### C P, CDP, COSMO, BHCG, MG, VD25, LIP #### [address] [address] [employer] Specialist: Campos Avilez MD WBC Morphology NOT REPORTED Normal [facility] Comment on above: Performed By: #### C P, CDP, COSMO, BHCG, MG, VD25, LIP #### [address] [address] [employer] Specialist: Campos Avilez MD Calcium, Ionicon 07-08-2020 Calcium [Mass/Vol] 1.18 mmol/L Normal 1.13-1.33 [facility] Comment on above: Performed By: #### I OCAL #### [address] [address] [employer] Specialist: Campos Avilez MD Calcium, Ionizedon Calcium [Mass/Vol] 1.18 mmol/L 1.13 - 1. 33 mmol/L [facility], [place] Comp Metabolic Profon 2020 (cont.) Normal [facility] Comment on above: Result Comment: Aver age GFR for <20 years old not available. Chronic Kidney Disease: <60 mL/min/1.73sq m Kidney failure: <15 mL/min/1.73sq m eGFR calculated using average adult body mass. Additional eGFR calculator available at: http://www.[employer]/multiple_crcl_2012.htm Performed By: #### C P, CDP, COSMO, BHCG, MG, VD25, LIP #### [address] [address] [employer] Specialist: Campos Avilez MD Albumin [Mass/Vol] 2.3 g/dL Low 3.5-5.2 [facility] Comment on above: Performed By: #### C P, CDP, COSMO, BHCG, MG, VD25, LIP #### [address] [address] [employer]ist: Campos Avilez MD Albumin/Globulin [Mass ratio] 0.9 {ratio} Low 1.0-2.5 [facility] Comment on above: Performed By: #### C P, CDP, COSMO, BHCG, MG, VD25, LIP #### [address] [address] [employer] Specialist: Campos Avilez MD Alkaline Phos 41 U/L Normal 35-104 [facility] Comment on above: Result Comment: SPEC IMEN MODERATELY HEMOLYZED, RESULTS MAY BE ADVERSELY AFFECTED Performed By: #### C P, CDP, COSMO, BHCG, MG, VD25, LIP #### [address] [address] [employer] Specialist: Campos Avilez MD ALT [Catalytic activity/Vol] 11 U/L Normal 5-33 [facility] Comment on above: Result Comment: SPEC IMEN MODERATELY HEMOLYZED, RESULTS MAY BE ADVERSELY AFFECTED Performed By: #### C P, CDP, COSMO, BHCG, MG, VD25, LIP #### [address] [address] [employer] Specialist: Campos Avilez MD Anion gap [Moles/Vol] 9 mmol/L Normal 9-17 [facility] Comment on above: Performed By: #### C P, CDP, COSMO, BHCG, MG, VD25, LIP #### [address] [address] [employer] Specialist: Campos Avilez MD AST [Catalytic activity/Vol] 28 U/L Normal <32 [facility] Comment on above: Result Comment: SPEC IMEN MODERATELY HEMOLYZED, RESULTS MAY BE ADVERSELY AFFECTED Performed By: #### C P, CDP, COSMO, BHCG, MG, VD25, LIP #### [address] [address] [employer] Specialist: Campos Avilez MD Bilirubin Ql (U) <0.10 Low 0.3-1.2 [facility] Comment on above: Performed By: #### C P, CDP, COSMO, BHCG, MG, VD25, LIP #### [address] [address] [employer] Specialist: Campos Avilez MD Calcium [Mass/Vol] 5.5 mg/dL Critically low 8.6-10.4 [facility] Comment on above: Performed By: #### C P, CDP, COSMO, BHCG, MG, VD25, LIP #### [address] [address] [employer] Specialist: Campos Avilez MD Chloride [Moles/Vol] 118 mmol/L High 98-107 [facility] Comment on above: Performed By: #### C P, CDP, COSMO, BHCG, MG, VD25, LIP #### [address] [address] [employer] Specialist: Campos Avilez MD CO2 [Moles/Vol] 14 mmol/L Low 20-31 [facility] Comment on above: Performed By: #### C P, CDP, COSMO, BHCG, MG, VD25, LIP #### [address] [address] [employer] Specialist: Campos Avilez MD Creatinine [Mass/Vol] 0.60 mg/dL Normal 0.50-0.90 [facility] Comment on above: Performed By: #### C P, CDP, COSMO, BHCG, MG, VD25, LIP #### [address] [address] [employer] Specialist: Campos Avilez MD GFR,non Amer Pediatric GFR requires additional information. Refer to NKDEP website for Normal >60 [facility] Comment on above: Result Comment: calc ulator. Performed By: #### C P, CDP, COSMO, BHCG, MG, VD25, LIP #### [address] [address] [employer] Specialist: Campos Avilez MD Glucose [Mass/Vol] 84 mg/dL Normal 70-99 [facility] Comment on above: Performed By: #### C P, CDP, COSMO, BHCG, MG, VD25, LIP #### [address] [address] [employer] Specialist: Campos Avilez MD Potassium [Moles/Vol] 5.1 mmol/L Normal 3.7-5.3 [facility] Comment on above: Result Comment: SPEC IMEN MODERATELY HEMOLYZED, RESULTS MAY BE ADVERSELY AFFECTED Performed By: #### C P, CDP, COSMO, BHCG, MG, VD25, LIP #### [address] [address] [employer] Specialist: Campos vAilez MD Protein [Mass/Vol] 5.0 g/dL Low 6.4-8.3 [facility] Comment on above: Performed By: #### C P, CDP, COSMO, BHCG, MG, VD25, LIP #### [address] [address] [employer] Specialist: Campos Avilez MD Sodium [Moles/Vol] 141 mmol/L Normal 135-144 [facility] Comment on above: Performed By: #### C P, CDP, COSMO, BHCG, MG, VD25, LIP #### [facility] [address] [place] [address] [employer] Specialist: Campos Avilez MD Urea nitrogen [Mass/Vol] 10 mg/dL Normal 6-20 [facility] Comment on above: Performed By: #### C P, CDP, COSMO, BHCG, MG, VD25, LIP #### [facility] [address] [place] [address] [employer] Specialist: Campos Avilez MD BUN/CRE Ratio NOT REPORTED Normal 9-20 [facility] Comment on above: Performed By: #### C P, CDP, COSMO, BHCG, MG, VD25, LIP #### [facility] [address] [place] [address] [employer] Specialist: Campos Avilez MD GFR, Amer NOT REPORTED Normal >60 [facility] Comment on above: Performed By: #### C P, CDP, COSMO, BHCG, MG, VD25, LIP #### [facility] [address] [place] [address] [employer] Specialist: Campos Avilez MD Staging: NOT REPORTED Normal [facility] Comment on above: Performed By: #### C P, CDP, COSMO, BHCG, MG, VD25, LIP #### [facility] [address] [place] [address] [employer] Specialist: Campos Avilez MD HCG, ,Urineon 07-08 Beta HCG ( test) Ql (U) Negative Normal NEG [facility] Comment on above: Result Comment: Spec [...] HCG, UAMIC #### [facility] [address] [place] [address] [employer] Specialist: Campos Avilez MD HCG, Quanton 07-08-2020 HCG, Quant <1 Normal <5 [facility] Comment on above: Result Comment: Non-preg [...] VD25, LIP #### [facility] [address] [place] [phone] [employer] Specialist: Campos Avilez MD Lipaseon 07-08-2020 Lipase [Catalytic activity/Vol] 15 U/L Normal 13-60 [facility] Comment on above: Performed By: #### C P, CDP, COSMO, BHCG, MG, VD25, LIP #### [facility] [address] [place] [address] [employer] Specialist: Campos Avilez MD Magnesiumon 07-08-2020 Magnesium [Mass/Vol] 1.2 mg/dL Low 1.7-2.2 [facility] Comment on above: Performed By: #### C P, CDP, COSMO, BHCG, MG, VD25, LIP #### [facility] [address] [place] [phone] [employer] Specialist: Campos Avilez MD Interpretation and review of laboratory results Abnormal [place] Magnesium [Mass/Vol] 1.2 mg/dL Low 1.7 - 2 .2 mg/dL [place] Otheron 07-08-2020 Direct Exam Negative [place] , URINEon 1 Beta HCG ( test) Ql (U) Negative NEGATIVE [place] Comment on above: Specimens with hCG [...] 2.6 mg/dL 2.5 - 4 .8 mg/dL [place] Phosphorus, Inorg.on 021 Phosphorus, Inorg. 2.6 mg/dL Normal 2.5-4.8 [facility] Comment on above: Performed By: #### U HCG, UAMIC #### [facility] [address] [place] [address] [employer] Specialist: Campos Avilez MD NON OB TRANSVAGINALon Elia, Mhpn Incoming Radiant Results From [employer] - 07/08/2020 12:31 AM EST EXAMINATION: PELVIC [...] No evidence of ovarian torsion is noted. [place] Unremarkable pelvic ultrasound. No evidence of ovarian torsion is noted. [place] EXAMINATION: PELVIC ULTRASOUND 07/07/2020 TECHNIQUE: Transvaginal [...] Free Fluid: No evidence of free fluid. [facility]- [place], [place] Urinalysis w/ Microon 2020 ----- Normal [facility] Comment on above: Performed By: #### U HCG, UAMIC #### [address] [address] [employer] Specialist: Campos Avilez MD Acetoacetic Acid,Ur Negative Normal NEG [facility] Comment on above: Performed By: #### U HCG, UAMIC #### [address] [address] [employer] Specialist: Campos Avilez MD Bacteria LM.HPF (Urine sed) [#/Area] MANY Abnormal NONE [facility] Comment on above: Performed By: #### U HCG, UAMIC #### [address] [address] [employer] Specialist: Campos Avilez MD Bilirubin, SemiQt,Ur Negative Normal NEG [facility] Comment on above: Performed By: #### U HCG, UAMIC #### [address] [address] [employer] Specialist: Campos Avilez MD Color (U) ORANGE Abnormal YEL [facility] Comment on above: Result Comment: INTE RPRET WITH CAUTION DUE TO INTENSE COLOR OF URINE. Performed By: #### U HCG, UAMIC #### [address] [address] [employer] Specialist: Campos Avilez MD Epithelial cells LM.HPF (Urine sed) [#/Area] 0 TO 2 Normal 0-5 [facility] Comment on above: Performed By: #### U HCG, UAMIC #### [address] [address] [employer] Specialist: Campos Avilez MD Glucose Ql (U) Negative Normal NEG [facility] Comment on above: Performed By: #### U HCG, UAMIC #### [address] [address] [employer] Specialist: Campos Avilez MD Hemoglobin, Ur LARGE Abnormal NEG [facility] Comment on above: Performed By: #### U HCG, UAMIC #### [address] [address] [employer] Specialist: Campos Avilez MD Leukocyte esterase Test strip Ql (U) MODERATE Abnormal NEG [facility] Comment on above: Performed By: #### U HCG, UAMIC #### [address] [address] [employer] Specialist: Campos Avilez MD Nitrite,Ur Positive Abnormal NEG [facility] Comment on above: Performed By: #### U HCG, UAMIC #### [address] [address] [employer] Specialist: Campos Avilez MD pH (U) 5.5 [pH] Normal 5.0-8.0 [facility] Comment on above: Performed By: #### U HCG, UAMIC #### [address] [address] [employer] Specialist: Campos Avilez MD Protein Ql (U) 2+ Abnormal NEG [facility] Comment on above: Performed By: #### U HCG, UAMIC #### [address] [address] [employer] Specialist: Campos Avilez MD RBC (U) [#/Vol] 50 TO 100 Normal 0-4 [facility] Comment on above: Result Comment: Refe rence range defined for non-centrifuged specimen. Performed By: #### U HCG, UAMIC #### [address] [address] [employer] Specialist: Campos Avilez MD Specific gravity (U) [Rel density] 1.021 Normal 1.005-1.030 [facility] Comment on above: Performed By: #### U HCG, UAMIC #### [address] [address] [employer] Specialist: Campos Avilez MD Turbidity TURBID Abnormal CLEAR [facility] Comment on above: Performed By: #### U HCG, UAMIC #### [address] [address] [employer] Specialist: Campos Avilez MD Urobilinogen,Ur Normal Normal NORM [facility] Comment on above: Performed By: #### U HCG, UAMIC #### [address] [address] [employer] Specialist: Campos Avilez MD WBC (U) [#/Vol] TOO NUMEROUS TO COUNT Normal 0-5 [facility] Comment on above: Performed By: #### U HCG, UAMIC #### [address] [address] [employer] Specialist: Campos Avilez MD Amorphous sediment LM Ql (Urine sed) NOT REPORTED Normal NONE [facility] Comment on above: Performed By: #### U HCG, UAMIC #### [address] [address] [employer] Specialist: Campos Avilez MD Casts LM.LPF (Urine sed) [#/Area] NOT REPORTED Normal 0-8 [facility] Comment on above: Performed By: #### U HCG, UAMIC #### [address] [address] [employer] Specialist: Campos Avilez MD Crystals LM Nom (Urine sed) NOT REPORTED Normal NONE [facility] Comment on above: Performed By: #### U HCG, UAMIC #### [address] [address] [employer] Specialist: Campos Avilez MD Epithelial, Renal NOT REPORTED Normal 0 [facility] Comment on above: Performed By: #### U HCG, UAMIC #### [facility] [address] [place] [address] [employer] Specialist: Campos Avilez MD Mucus Strands NOT REPORTED Normal [facility] Comment on above: Performed By: #### U HCG, UAMIC #### [address] [address] [employer] Specialist: Campos Avilez MD Other Observations NOT REPORTED Normal NREQ [facility] Comment on above: Performed By: #### U HCG, UAMIC #### [address] [address] [employer] Specialist: Campos Avilez MD Trichomonas NOT REPORTED Normal NONE [facility] Comment on above: Performed By: #### U HCG, UAMIC #### [address] [address] [employer] Specialist: Campos Avilez MD Yeast LM Ql (Urine sed) NOT REPORTED Normal [facility] Comment on above: Performed By: #### U HCG, UAMIC #### [facility] [address] [place] [address] [employer] Specialist: Campos Avilez MD Urinalysis with microscopico n 07-08-2020 Amorphous, UA NOT REPORTED None [facility] [place] [place] Bacteria, UA MANY Abnormal None [facility] - [place] Bilirubin Urine Negative NEGATIVE [facility] [place] Casts UA NOT REPORTED [facility] [place] Color, UA ORANGE Abnormal YELLOW [facility] [place] Comment on above: INTERPRET WITH CAUTI ON DUE TO INTENSE COLOR OF URINE. Crystals, UA NOT REPORTED None /HPF [place] Epithelial Cells UA 0 TO 2 [place] Glucose, Ur Negative NEGATIVE [place] Interpretation and review of laboratory results Abnormal [place] Ketones Ql (U) Negative NEGATIVE [place] Leukocyte esterase Test strip Ql (U) MODERATE Abnormal NEGATIVE [place] Mucus, UA NOT REPORTED None [place] Nitrite, Urine Positive Abnormal NEGATIVE [place] Other Observations UA NOT REPORTED NOT REQ. [place] pH, UA 5.5 [place] Protein (U) [Mass/Vol] 2+ Abnormal NEGATIVE [place], [place] RBC (U) [#/Vol] 50 TO 100 [place], [place] Comment on above: Reference range defi sonia for non-centrifuged specimen. Renal Epithelial, UA NOT REPORTED 0 /HPF [place], [place] Specific [place], UA 1.021 [place], [place] Trichomonas, UA NOT REPORTED None [place], [place] Turbidity UA TURBID Abnormal CLEAR [place] Urine Hgb LARGE Abnormal NEGATIVE [place] Urobilinogen, Urine Normal Normal [place] WBC, UA TOO NUMEROUS TO COUNT [place] Yeast, UA NOT REPORTED None [place] VAGINITIS DNA PROBEon 2020 Direct Exam Positive Abnormal [place] Direct Exam Method of testing is a DNA probe intended for detection and identification of Samantha species, Gardnerella vaginalis, and Trichomonas vaginalis nucleic acid in vaginal fluid specimens from patients with symptoms of vaginitis/vaginosis. [place] Interpretation and review of laboratory results Abnormal [place] Special Requests NOT REPORTED [place] Specimen Description .VAGINA [place] Vaginitis DNA Probeon 2020 Vaginitis DNA [...] of vaginitis/vaginosis. Report Status FINAL 07/08/2020 Normal [facility] Comment on above: Performed By: #### U HCG, UAMIC #### [facility] [address], [place] [id number] [employer] Specialist: Campos Avilez MD Vitamin D 25 Hydroxyon 07-08 Interpretation and review of laboratory results Abnormal [place] Vit D, 25-Hydroxy 12.1 ng/mL Low 30 - 100 ng/mL [place] Comment on above: Reference Range: Vitamin D status Range Deficiency <20 ng/mL Mild Deficiency 20-30 ng/mL Sufficiency 30-100 ng/mL Toxicity >100 ng/mL Vitamin D 25 OHon 07-08-2020 Vitamin D 25 OH 12.1 ng/mL Low 30.0-100.0 [facility] Comment on above: Result Comment: Reference Range: Vitamin D status Range Deficiency <20 ng/mL Mild Deficiency 20-30 ng/mL Sufficiency 30-100 ng/mL Toxicity >100 ng/mL Performed By: #### U HCG, UAMIC #### [facility] [address] [place] [phone] [employer] Specialist: Campos Avliez MD ABO/RHon 07-07-2020 ABO/Rh Positive [place] CBC WITH AUTO DIFFERENTIALon 07-07-2020 Basophils (Bld) [#/Vol] 0.04 10*3/uL [place] Basophils/100 WBC (Bld) 0 % 0 - 2 % [place] Differential Type NOT REPORTED [place] Eosinophils (Bld) [#/Vol] 0.10 10*3/uL [place] Eosinophils/100 WBC (Bld) 1 % 1 - 4 % [place] Erythrocyte distribution width (RBC) [Ratio] 14.0 % 11.8 - 14.4 % [place] Hematocrit (Bld) [Volume fraction] 34.3 % Low 36.3 - 47.1 % [place] Hemoglobin (Bld) [Mass/Vol] 11.1 g/dL Low 11.9 - 15.1 g/dL [place] Immature granulocytes (Bld) [#/Vol] 0 % 0 [place] Immature granulocytes (Bld) [#/Vol] 0.04 10*3/uL [place] Interpretation and review of laboratory results Abnormal [place] Lymphocytes (Bld) [#/Vol] 1.77 10*3/uL [place] Lymphocytes/100 WBC (Bld) 16 % Low 25 - 45 % [place] MCH (RBC) [Entitic mass] 26.6 pg 25 - 35 pg [place] MCHC (RBC) [Mass/Vol] 32.4 g/dL 28.4 - 34.8 g/dL [place] MCV (RBC) [Entitic vol] 82.3 fL 78 - 102 fL [place] Monocytes (Bld) [#/Vol] 0.73 10*3/uL [place] Monocytes/100 WBC (Bld) 7 % 2 - 8 % [place] Platelet mean volume (Bld) [Entitic vol] 11.8 fL 8.1 - 13.5 fL [place] Platelets (Bld) [#/Vol] NOT REPORTED [place] Platelets (Bld) [#/Vol] 288 10*3/uL [place] RBC (Bld) [#/Vol] 4.17 10*6/uL 3.95 - 5.1 1 m/uL [place] RBC morphology finding Nom (Bld) NOT REPORTED [place] Segmented neutrophils/100 WBC (Bld) 75 % High 34 - 64 % [place] Segs Absolute 8.16 High [place] WBC (Bld) [#/Vol] 0.0 10*3/uL 0.0 per 10 0 WBC [place] WBC (Bld) [#/Vol] 10.8 10*3/uL [place] WBC Morphology NOT REPORTED [place] COMPREHENSIVE METABOLIC PANE Mikie 07-07-2020 Albumin [Mass/Vol] 2.3 g/dL Low 3.5 - 5.2 g/dL [place] Albumin/Globulin [Mass ratio] 0.9 {ratio} Low [place] ALP [Catalytic activity/Vol] 41 U/L 35 - 104 U/L [place] Comment on above: SPECIMEN MODERATELY HEMOLYZED, RESULTS MAY BE ADVERSELY AFFECTED ALT [Catalytic activity/Vol] 11 U/L 5 - 33 U/L [place] Comment on above: SPECIMEN MODERATELY HEMOLYZED, RESULTS MAY BE ADVERSELY AFFECTED Anion gap [Moles/Vol] 9 mmol/L 9 - 17 mmol/L [place] AST [Catalytic activity/Vol] 28 U/L <32 [place] Comment on above: SPECIMEN MODERATELY HEMOLYZED, RESULTS MAY BE ADVERSELY AFFECTED Bilirubin Ql (U) <0.10 Low 0.3 - 1.2 mg/dL [place] Bun/Cre Ratio NOT REPORTED [place] Calcium [Mass/Vol] 5.5 mg/dL Critically low 8.6 - 1 0.4 mg/dL [place] Chloride [Moles/Vol] 118 mmol/L High 98 - 10 7 mmol/L [place] CO2 [Moles/Vol] 14 mmol/L Low 20 - 31 mmol/L [place] Creatinine [Mass/Vol] 0.6 mg/dL 0.5 - 0.9 mg/dL [place] GFR NOT REPORTED >60 mL/min [place] GFR Non- Pediatric GFR requires additional information. Refer to NKDEP website for calculator. >60 mL/min [place] GFR/1.73 sq M predicted among non-blacks MDRD (S/P/Bld) [Vol rate/Area] NOT REPORTED [place] GFR/1.73 sq M predicted among non-blacks MDRD (S/P/Bld) [Vol rate/Area] [place] Comment on above: Average GFR for <20 years old not available. Chronic Kidney Disease: <60 mL/min/1.73sq m Kidney failure: <15 mL/min/1.73sq m eGFR calculated using average adult body mass. Additional eGFR calculator available at: http://www.[employer]/multiple_crcl_2012.htm Glucose [Mass/Vol] 84 mg/dL 70 - 99 mg/dL [place] Interpretation and review of laboratory results Abnormal [place] Potassium [Moles/Vol] 5.1 mmol/L 3.7 - 5.3 mmol/L [place] Comment on above: SPECIMEN MODERATELY HEMOLYZED, RESULTS MAY BE ADVERSELY AFFECTED Protein [Mass/Vol] 5.0 g/dL Low 6.4 - 8.3 g/dL [place] Sodium [Moles/Vol] 141 mmol/L 135 - 144 mmol/L [place] Urea nitrogen [Mass/Vol] 10 mg/dL 6 - 20 mg/dL [place] HCG, QUANTITATIVE, on 07-07-2020 hCG Quant <1 <5 IU/L [place] Comment on above: Non-preg premeno <=5 [...] activity/Vol] 15 U/L 13 - 60 U/L [place] Vital Signs Date Time Vital Sign Value Performing Clinician Facility 10-26-2023 03:30-0400 Hourly Rounding Fuentes Florentino [facility] Comment on above: Result Comment: pt discharged off unit 10-26-2023 03:15-0400 Hourly Rounding Fuentes Florentino [facility] Comment on above: Result Comment: went over discharge inst ructions. educated pt on importance of contacting primary provider with future concerns, pisking up antibiotic prescription tomorrow, and calling is symtpoms return or get worse. 10-26-2023 00:00-0400 Blood Pressure Location Fuentes Florentino [facility] 10-26-2023 00:00-0400 Body temperature 98.6 [degF] Fuentes Florentino [facility] 10-26-2023 00:00-0400 Diastolic blood pressure 68 mm[Hg] Fuentes Florentino [facility] 10-26-2023 00:00-0400 Heart rate 101 /min Fuentes Florentino [facility] 10-26-2023 00:00-0400 Hourly Rounding Fuentes Florentino [facility] 10-26-2023 00:00-0400 Mean blood pressure 86 mm[Hg] Fuentes Florentino [facility] 10-26-2023 00:00-0400 Respiratory rate 16 /min Fuentes Florentino [facility] 10-26-2023 00:00-0400 Systolic blood pressure 122 mm[Hg] Fuentes Florentino [facility] 07-17-2023 11:42-0500 Body weight 127.82 kg [employer]ung [employer] Work Phone: [facility] 07-17-2023 11:42-0500 Diastolic blood pressure 70 mm[Hg] Chung Benja DO Work Phone: [facility] 07-17-2023 11:42-0500 Systolic blood pressure 118 mm[Hg] Chung Benja DO Work Phone: [facility] 10-19-2021 01:12-0400 Diastolic blood pressure 62 mm[Hg] PHYSICIAN [facility] 10-19-2021 01:12-0400 Heart rate 89 /min PHYSICIAN [facility] 10-19-2021 01:12-0400 Respiratory rate 18 /min PHYSICIAN [facility] 10-19-2021 01:12-0400 SaO2% (BldA) [Mass fraction] 100 % PHYSICIAN [facility] 10-19-2021 01:12-0400 Systolic blood pressure 130 mm[Hg] PHYSICIAN [facility] 10-18-2021 23:10-0400 Body height 167.64 cm PHYSICIAN [facility] 10-18-2021 23:10-0400 Body mass index (BMI) [Percentile] Per age and sex 99.1 % PHYSICIAN [facility] 10-18-2021 23:10-0400 Body mass index (BMI) [Ratio] 48.2 kg/m2 PHYSICIAN [facility] 10-18-2021 23:10-0400 Body weight 135.5 kg PHYSICIAN [facility] 10-18-2021 23:08-0400 Body temperature 98.4 [degF] PHYSICIAN [facility] 07-07-2020 21:51-0500 BMI (Body Mass Index) 42.93 kg/m2 [facility] [place] 07-07-2020 21:51-0500 Body weight 120.66 kg [facility] [place] 07-07-2020 21:51-0500 BP Diastolic 85 mm[Hg] [facility] [place] 07-07-2020 21:51-0500 BP Systolic 136 mm[Hg] [facility] [place] 07-07-2020 21:51-0500 Height 167.6 cm [facility] [place] 07-07-2020 21:51-0500 Pulse (Heart Rate) 93 /min [facility] 07-07-2020 21:51-0500 Pulse Oximetry 97 % [facility] [place] 07-07-2020 21:51-0500 Respiratory Rate 18 /min [facility] 07-07-2020 21:48-0500 Body Temperature 97.11 [degF] Lisa Land [facility] [place] Encounters Encounter Date Encounter Type [...] End: 10-26-2023 ambulatory Fuentes Florentino [place] [place]: 10-25-2023 End: 10-26-2023 OB Triage Fuentes Florentino [facility] Start: 10-07-2023 End: 10-07-2023 ambulatory CHUNG [...] Emergency department patient visit PHYSICIAN NO FAMILY Facility:[facility] Start: 10-18-2021 End: 10-19-2021 Emergency department patient visit PHYSICIAN NO FAMILY [facility] Start: 07-07-2020 End: 07-08-2020 Emergency department patient visit DAVID AQUINO [facility] Start: 07-07-2020 End: 07-08-2020 Emergency department patient visit Lisa Land Work Phone: [facility] ED Comment on above: BV (bacterial [...] AM EDT Routine [facility] [address] [facility] [place] [address] Halima Cullen PA [address] [place], [place] [id number] [facility] Start: 07-17-2023 End: 07-17-2024 [...] Missed menses Expected: 07/03/2023 (Approximate), Expires: 07/03/2024 [facility] Comment on above: Expected: 07/03/2023 (Approximate), Expires: 07/03/2024 Start: 07-03-2023 End: 07-03-2024 Blood type and Indirect antibody screen panel - Blood Type and screen Lab Routine Missed menses Expected: 07/03/2023 (Approximate), Expires: 07/03/2024 [facility] Work Phone: Comment on above: Expected: 07/03/2023 (Approximate), Expires: 07/03/2024 Start: 07-03-2023 End: 07-03-2024 US Pelvis transvaginal US OB transvaginal Imaging Routine Missed menses Expected: 07/03/2023 (Approximate), Expires: 07/03/2024 [facility] Comment on above: Expected: 07/03/2023 (Approximate), Expires: 07/03/2024 Start: 02-01-2020 Influenza vaccination Flu vaccine (# 1) [place] Start: 2018 Meningococcal (ACWY) vaccine (1 - 2-dose series) Meningococcal (ACWY) vaccine (1 - 2-dose series) [place] Start: 2018 Screening for Chlamy nancy trachomatis Chlamydia screen [place] Start: 2017 HIV screening HIV screen [place] Start: 2013 HPV vaccine (1 - 2-d ose series) HPV vaccine (1 - 2-dose series) [place] Start: 2009 DTaP/Tdap/Td vaccine (1 - Tdap) DTaP/Tdap/Td vaccine (1 - Tdap) [place] Start: 2003 Hepatitis A vaccine (1 of 2 - 2-dose series) Hepatitis A vaccine (1 of 2 - 2-dose series) [place] Start: 2003 Measles,Mumps,Rubell a (MMR) vaccine (1 of 2 - Standard series) Measles,Mumps,Rubella (MMR) vaccine (1 of 2 - Standard series) [place] Start: 2003 Varicella vaccine (1 of 2 - 2-dose childhood series) Varicella vaccine (1 of 2 - 2-dose childhood series) [place] Start: 2002 Hepatitis B vaccine (1 of 3 - 3-dose primary series) Hepatitis B vaccine (1 of 3 - 3-dose primary series) [place] Start: 2002 Hepatitis C screening Hepatitis C sc reen [place] Bacteria identified in Urine by Culture Urine culture Microbiology Routine Missed menses Ordered: 07/03/2023 [facility] Comment on above: Ordered: 07/03/2023 End: 07-07-2020 C.trachomatis N.gonorrhoeae DNA C.trachomatis N.gonorrhoeae DNA Microbiology STAT One Time for 1 Occurrences starting 07/07/2020 until 07/07/2020 [place] Comment on above: One Time for 1 Occur rences starting 07/07/2020 until 07/07/2020 C.trachomatis N.gonorrhoeae DNA C.trachomatis N.gonorrhoeae DNA Microbiology Stat [employer] Label print 07/07/2020 11:20 PM EST [place] End: 07-08-2020 Calcium, Ionized Calcium, Ionized Lab STAT One Time for 1 Occurrences starting 07/08/2020 until 07/08/2020 [place] Comment on above: One Time for 1 Occur rences starting 07/08/2020 until 07/08/2020 CBC W Auto Different ial panel - Blood CBC and differential Lab Routine Missed menses Ordered: 07/03/2023 [facility] Comment on above: Ordered: 07/03/2023 End: 07-07-2020 Culture, Urine Culture, Urine Microbiology STAT One Time for 1 Occurrences starting 07/07/2020 until 07/07/2020 [facility] Comment on above: One Time for 1 Occur rences starting 07/07/2020 until 07/07/2020 Culture, Urine Culture, Urine Microbiology Stat [employer] Label print 07/07/2020 10:56 PM [facility] Hemoglobin A1c measurement Hemoglobin A1c Lab Routine Missed menses Ordered: 07/03/2023 [facility] Comment on above: Ordered: 07/03/2023 Hepatitis B virus surface Ag [Presence] in Serum or Plasma by Immunoassay Hepatitis B surface antigen Lab Routine Missed menses Ordered: 07/03/2023 [facility] Comment on above: Ordered: 07/03/2023 Hepatitis C virus Ab [Presence] in Serum or Plasma by Immunoassay Hepatitis C antibody Lab Routine Missed menses Ordered: 07/03/2023 [facility] Comment on above: Ordered: 07/03/2023 HIV-1/HIV-2 antigen/antibody combination immunoassay HIV-1 and HIV-2 antibodies Lab Routine Missed menses Ordered: 07/03/2023 [facility] Comment on above: Ordered: 07/03/2023 Patient Education Common Breast Problems Pelvic Pain ED [facility] Work Phone: Patient referral [facility] Work Phone: Reagin Ab [Presence] in Serum by RPR RPR Lab Routine Missed menses Ordered: 07/03/2023 [facility] Comment on above: Ordered: 07/03/2023 Rubella antibody, IgG Rubella an tibody, IgG Lab Routine Missed menses Ordered: 07/03/2023 [facility] Comment on above: Ordered: 07/03/2023 End: 07-07-2020 US DUP ABD PEL RETRO SCROT LIMITED US DUP ABD PEL RETRO SCROT LIMITED Imaging STAT Once for 1 Occurrences starting 07/07/2020 until 07/07/2020 [facility] Comment on above: Once for 1 Occurrenc es starting 07/07/2020 until 07/07/2020 US DUP ABD PEL RETRO SCROT LIMITED US DUP ABD PEL RETRO SCROT LIMITED Imaging STAT 07/08/2020 12:13 AM [facility] Payers Date Payer Category Payer Unknown BCBS BCBS [id number] 2023-Present [phone] [address] [place] [address] [id number] 2023 Unknown [id number] 2021 Self-pay [id number] 2002 Unknown [id number] [id number] 2002 Unknown [id number] 2.16.840.1.601339.3.579.2.593 2002 Unknown [id number] 2.16.840.1.414541.3.579.2.593 2002 Unknown [id number] 2.16.840.1.075486.3.579.2.727 2002 Unknown [id number] 2.16.840.1.325883.3.579.2.727 2002 Unknown [id number] 2.16.840.1.671525.3.579.2.1259 2002 Unknown [id number] 2.16.840.1.244271.3.579.2.1259 2002 Unknown [id number] 2.16.840.1.498654.3.579.2.1259 2002 Unknown [id number] 2.16.840.1.878397.3.579.2.1259 2002 Unknown [id number] 2.16.840.1.532440.3.579.2.125 2002 Unknown [id number] 2.16.840.1.931954.3.579.2.1259 2002 Unknown [id number] 2.16.840.1.450650.3.579.2.1259 2002 Unknown [id number] 2.16.840.1.806778.3.579.2.1259 2002 Unknown [id number] 2.16.840.1.955445.3.579.2.1259 2002 Unknown [id number] 2.16.840.1.019036.3.579.2.1259 2002 Unknown [id number] 2.16.840.1.289338.3.579.2.1259 2002 Unknown [id number] 2.16.840.1.202644.3.579.2.1259 1957 Medicaid [id number] 1957 Unknown [id number] Unknown [id number] [id number] Social History Date Type Detail Facility Start: 07-07-2020 End: 07-16-2023 Tobacco smoking status DEIS Never smoker [facility] Start: 07-07-2020 Tobacco use and exposure Never used [place] Start: 2002 Sex Assigned At Not on file [place] Exposure to SARS-CoV-2 (event) Not sure [place] Start: 10-19-2021 Tobacco smoking status NHIS Smoker (finding) [facility] Start: 2000 Sex Assigned At Female F [facility] Tobacco smoking status DEIS Tobacco smoking consumption unknown [facility] Start: 05-22-2023 [facility] Start: 07-16-2023 Gender identity Not on file [facility] Start: 07-16-2023 End: 07-17-2023 Alcohol intake Lifetime non-drinker (finding) [facility] Start: 07-16-2023 History of Social function [facility] Tobacco smoking status No Smoking Status Entered [facility] Functional Status Date Assessment Result Facility 10-26-2023 Functional Status N/A [facility] Clinical Notes 07-03-2023 to 10-26-2023 Chung Yousif DO - 07/17/2023 11:10 AM Costa Kilgore LPN - 07/03/2023 1:00 PM EST Note Date & Type Note Facility 10-26-2023 Note The following Ephraim t Education Materials have been given to the patient: EducationMaterial [facility] 10-26-2023 Hospital Discharg e instructions Patient [...] provider. Document Revised: 01/02/2022 Document Reviewed: 01/02/2022 [employer] Patient Education 2022 [employer]. 10/26/2023 03:10:04 Vaginal Bleeding During , Second [...] help with your regular activities. Medicines Take ygim-qbm-wnpvysb and prescription medicines only as told by [...] provider. Document Revised: 02/08/2021 Document Reviewed: 02/08/2021 [employer] Patient Education 2022 [employer]. 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 [...] your back during . General instructions Take xokj-kxa-rcomxks and prescription medicines only as told by [...] care provider for managing back pain. Take tqxv-lca-xvcdyns and prescription medicines only as told by [...] provider. Document Revised: 08/01/2021 Document Reviewed: 08/01/2021 [employer] Patient Education 2022 [employer]. Follow Up Care 10/25/2023 23:39:34 With:Chung YOUSIF Address: [address] , [place] [address] Business (1) When:11/04/2023 [facility] 10-25-2023 Evaluation + Plan note Diagnostic Tests PendingUrine Culture 10/25/23 [facility] 07-17-2023 History of Presen t illness Narrative Reason for Appointment: Patient ID: Teodoro Upton is a 23 y.o. female who presents for Routine Visit Patient presents today for Return OB appointment. Current Medications: has a current medication list which includes the following prescription(s): zimztgjn-ihf-pv-fa and promethazine. Medical History: Active Ambulatory Problems [...] Chung Yousif DO documented in this encounter [facility] 07-03-2023 History of Presen t illness Narrative [...] undercooked meat, stay away from [facility], do not change litter boxes, eat 6 [...] No assessment inform ation available [facility] Work Phone: Evaluation note Diagnosis Missed menses Nausea and vomiting, unspecified vomiting type documented in this encounter [facility] Diagnosis First trimester state, incidental Vaginal bleeding in Threatened miscarriage Threatened , unspecified as to episode of care with uncertain viability, single or unspecified fetus documented in this encounter [facility] Narrative No data available for this section [facility] Additional Instructions Please follow up as we discussed so you can have your concerns further evaluated.[facility] Work Phone: Progress note No data available for this section [facility] Discharge Instructions * Instructions* Brenda Stoner DO - 07/08/2020 [facility] ED Clinic List Healthcare Providers Services Day of Week/ Hours [facility] Services [address] [facility] Pediatric Primary Care Adult Primary Care INSPECTOR ALIGNING//Specialty Clinics Friday 8:00a 4:30p [address] Adult Medicine, Pediatrics, INSPECTOR ALIGNING Friday 8:30a 4:30p [facility] Surgery [address] [facility] Friday 8:30a 11:00a [facility] [address] [facility] Adult Internal Medicine ([facility]) INSPECTOR ALIGNING Clinic Pediatric Clinic Friday, Friday, , Friday 8:00a 4:30p Friday 1:00p 4:30p Friday, Friday, 8:00a 5:00p; Friday 8:00a 12:30p Friday 1p 4p Friday, Friday, , Friday 8:30a 4:15p Friday 12:30p 4:15p Health Department [facility] Clinic [address] [facility] Pediatric Primary Care Adult Primary Care OB/ Friday, Friday 8a 12p 8a 4:45p [facility] [address] [place] [address] [place] [address] # Pre & Post Adoption Counseling Support / nutrition Care Reward Incentive Program [place] Location Fri, , Fri, Fri 10:00a 4:30p Thur 10:00a 7:30p [place] Location Friday - Friday 10a 4:30p [facility] INSPECTOR ALIGNING [address] [facility] Adult Internal Medicine [address] [facility] Pediatrics [address] [facility] [address] Neuro / Headache [address] [facility] Friday 8:30a 5p [facility] [address] [facility] Fri, , , Fri 9:00a 4:30p Wed 1:00p 4:30p [facility] [address] [facility] [address] [facility] Friday 8:30a 5:00p [facility] Specialty Clinics [address] [facility] [address] Burn/Plastic, ENT, GI, Orthopedics, Surgical / Trauma, Urology, Vascular Friday 8:00 4:30p Call for an appointment [facility] [address] [facility] Adult Medicine, Eye Clinic, Dental Patient must be certified homeless Under age 18 not accepted Friday 8:00 4:30p [facility] [address] [facility] OB Friday, Friday, Friday, Friday 9a 5p 9a 6p Friday (OB only) [facility] [address] [facility] OB/ Friday 11a 7p , Fri, 9a 5p Friday 8a 4p 1st Friday 9a 1p Podiatry Clinic [address] [facility] [address] Friday 8:00 4:30 p [facility] [place] Free nurse visits [place] programs Counseling Class Call or walk in [facility] [address] [place] Various Clinics 8a 5:30p [facility] Family Medicine [facility] [address] [facility] Family Practice Friday 8a 4:30p [facility] [address] [place] [address] [address] [place] [address] Friday 8a 4:30p Friday 8a 4:30p 8a 8p Outpatient Clinics [facility] [address] [facility] Friday 9a 5p Diabetic Education Services Call for an appointment [facility] Heart Failure Clinic [address] [facility] Friday 8:30a 4p Dental Services [facility] [address] [facility] Must have source of income and must bring (2) recent check stubs to appointment By appointment only [facility] [address] [facility] Patient must be homeless, call for eligibility guidelines. Under age 18 NOT accepted Days and hours vary (Doors open at 8:30a day of week varies) Call for an appointment Miscellaneous Information [facility] Call for Help [phone] Call for an appointment H.E.L.P (Hospital Eligibility Link Program) toll free For financial assistance * Attachments The following attachments cannot be sent through Care Everywhere. * Bacterial Vaginosis (Azerbaijani) * UTI (Urinary Tract Infection): Female (Azerbaijani) * Vitamin D: General Info (Azerbaijani) documented in this encounter Assessments Diagnosis BV [...] section and content) DATE CREATED AUTHOR 07/16/2020 [facility] DATE CREATED AUTHOR AUTHOR'S ORGANIZ ATION 09/07/2022 [facility] DATE CREATED AUTHOR AUTHOR'S ORGANIZ ATION 03/13/2023 [facility] DATE CREATED AUTHOR AUTHOR'S ORGANIZ ATION 10/27/2023 [facility] DATE CREATED AUTHOR AUTHOR'S ORGANIZ ATION 10/31/2023 [facility] DATE CREATED AUTHOR AUTHOR'S ORGANIZ ATION 01/23/2024 [facility] dical Specialists EPIC Care Teams (unrecognized [...] BE BASED ON THE PRIMARY CLINICAL RECORDS. [facility] [employer] [facility]. provides no warranty or guarantee of the accuracy or completeness of information in this document.
[2024-01-30 17:12] VITALS: BP 132/69; PULSE 110
--- NOTE | 2024-01-30 18:01 | US_ITS ---
The [address] [address] Patient Name: TEODORO HERNANDES MRN: [id number] date: 2000 Sex: F Assigned Patient [place]: [facility] Current Patient Location: [facility] Accession/Order Number: [id number] Exam Date: 01/30/2024 18:10 Report Date: 01/30/2024 19:38 At the request of: CHUNG MAGDALENO Procedure: US OB BPP w non-stress EXAM: US OB BPP w non-stress HISTORY: Non reactive NST COMPARISON: Multiple prior studies including OB growth study 01/20/2024 and biophysical profile exams 01/27/2024 and earlier. TECHNIQUE: Ultrasound biophysical profile FINDINGS: Single fetus, heart rate 158 bpm. Cephalic presentation. BRAD 16.8 cm, deepest pocket 7.2 cm. Between fifth and 95th percentile. breathing movements noted: 2 Gross body movements noted: 2 tone: 2 Qualitative amniotic fluid volume: 2 Total score 8/8. Images suggest the umbilical cord noted along the anterior, right and left side of the neck on a transverse scan. Cannot see the deeper tissues to determine if the cord encircles the entire neck or not. This has not been seen previously. right renal pelvis again noted to be prominent. Current measurement 1.6 cm, previous measurements of 1.4-1.5 cm.. US/US OB BPP w non-stress IMPRESSION: 1. Biophysical profile score 8/8 unchanged. 2. Prominent right renal pelvis similar previous. 3. The umbilical cord may be wrapped around the neck. This has not been seen previously. Results called to the patient's physician on 01/30/2024 at 7:27 PM Eastern standard time Electronically authenticated by: KATHLEEN COELHO Date: 01/30/2024 19:38
== END 2024-01-30 18:40 | disposition home or self-care (01) ==
LOC: FBCO 07:15 → FBC 17:05
PROVIDERS: Visit Provider Obstetrics & Gynecology
DX: O40.3XX0 Polyhydramnios, third trimester, not applicable or unspecified (principal); Z3A.00 Weeks of gestation of pregnancy not specified
CPT/HCPCS: 59025; 76818

== ENCOUNTER 2024-02-02 01:13 | Inpatient (IN) | payer MEDICAID, SELFPAY ==
[2024-02-02] VITALS (39 sets, daily range): BP systolic 90–122; BP diastolic 42–72; PULSE 62–102; TEMP 36.5–37.3; O2SAT 96–98
--- OUTSIDE RECORDS SUMMARY | 2024-02-02 01:18 | XMS_ITS | CCD ---
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 Name Role Phone Unavailable Primary Care Provider [...] Refill(s) 0 Start Date: 10/26/23 Status: Ordered Mosytfnp-Dcl-Nj-FA ( 1 + IRON PO) (4 sources) Bisitnyd-Mda-Ig-FA ( 1 + IRON PO) Take by [...] Range Facility Nursing Assessmenton 024 Nursing Assessment [id number] 2#1.00TIFF [facility] C Urineon 10-28-2023 Bacteria identified Cx [...] Locations R1: This test was performed at: [facility], [address] [place] [address], [address] [place] [address], [facility] Comment on above: Performed By: #### 2 [id number] #### [facility] [address] [place] [address] Consent for Treatmenton 10-01 Consent for Treatment [id number] #1.00TIFF [facility] Discharge Instructionson Discharge Instructions [id number] 7#1.00TIFF [facility] Inpatient Clinical Summaryon 10-26-2023 Inpatient Clinical Summary [address] [address] Clinical Summary Person Information Name: [facility] Age: 23 Years : 2000 Sex: Female PCP: NONE, XXXX Marital Status: Single Phone: [phone] Race: or Ethnicity: Non- or Language: Swedish Visit Id: Visit Reason: 24 WEEKS BLEEDING Speciality: Acuity: Obs Enc Type: OB Triage Med Service: Obstetrics Arrival: 10/25/2023 23:36:04 Discharge: 10/26/2023 03:30:56 Dispo Type: Home (Routine DC) Address: [address] [facility] [id number] Provider Notes: Diagnosis: Problems Active (10/26/2023) Smoker [...] Referring Physician: Follow up: With: [facility]: [facility] [address] [place] [address] , [place], [place] [id number] Business (1) In 9 days 11/04/2023 Patient Education Information: and Urinary Tract Infection; Vaginal Bleeding During , Second Trimester; Back Pain in Normal [facility] Inpatient Patient Summaryon 10-26-2023 Inpatient Patient Summary [address] [address] Patient Discharge Instructions PERSON INFORMATION Name: TEODORO [...] Follow up: With: Address: When: [facility], [address] [place] [address] [place] [address] Business (1) In 9 days [...] Always wi (more content not included)... Normal [facility] Insurance Correspondenceon 0 10-26-2023 Insurance Correspondence [id number] 8#1.00TIFF Normal [facility] UA with Cult Rflxon 10-26-19 24 Bacteria Auto Ql (U) Trace Normal Trace Fish [facility] Comment on above: Performed By: #### 4 [id number] #### [facility] [address] [place] [address] Bilirubin Ql (U) Negative Normal Negative [facility] Comment on above: Performed By: #### 4 [id number] #### [facility] [address] [place] [address] Clarity (U) Turbid Abnormal Clear [facility] Comment on above: Performed By: #### 4 [id number] #### [facility] [address] [place] [address] Color (U) Yellow Normal Yellow [facility] Comment on above: Result Comment: Micr oscopic readings are only performed on those samples that meet specific criteria set forth by [facility]. Performed By: #### 4 [id number] #### [facility] [address] [place] [address] Epithelial cells.squamous Auto (Urine sed) [#/Area] 5-8 Abnormal 0-2 [facility] Comment on above: Performed By: #### 4 [id number] #### [facility] [address] [place] [address] Glucose Ql (U) Negative Normal Negative [facility] Comment on above: Performed By: #### 4 [id number] #### [facility] [address] [place] [address] Hemoglobin Auto test strip (U) [Mass/Vol] Negative Normal Negative [facility] Comment on above: Performed By: #### 4 [id number] #### [facility] [address] [place] [address] Hyaline casts LM Ql (Urine sed) 0-3 Normal 0-3 [facility] Comment on above: Performed By: #### 4 [id number] #### [facility] [address] [place] [address] Ketones Auto test strip Ql (U) Negative Normal Negative [facility] Comment on above: Performed By: #### 4 [id number] #### [facility] [address] [place] [address] Leukocyte esterase Auto test strip Ql (U) 500 Gearld/uL Abnormal Negative [facility] Comment on above: Performed By: #### 4 [id number] #### [facility] [address] [place] [address] Mucus Auto Ql (U) Trace Normal Negative [facility] Comment on above: Performed By: #### 4 [id number] #### [facility] [address] [place] [address] Nitrite Auto test strip Ql (U) Negative Normal Negative [facility] Comment on above: Performed By: #### 4 [id number] #### [facility] [address] [place] [address] pH (U) 6.0 [pH] Invalid Interpretation Code 5.0-9.0 [facility] Comment on above: Performed By: #### 4 [id number] #### [facility] [address] [place] [address] Protein Ql (U) Trace Abnormal Negative [facility] Comment on above: Performed By: #### 4 [id number] #### [facility] [address] [place] [address] RBC Ql (U) 4-20 Abnormal 0-3 [facility] Comment on above: Performed By: #### 4 [id number] #### [facility] [address] [place] [address] Specific gravity (U) [Rel density] 1.030 Invalid Interpretation Code 1.005-1.030 [facility] Comment on above: Performed By: #### 4 [id number] #### [facility] [address] [place] [address] Urobilinogen (U) [Mass/Vol] Negative Normal Negative [facility] Comment on above: Performed By: #### 4 [id number] #### [facility] [address] [place] [address] WBC Auto (Urine sed) [#/Area] 16-25 Abnormal 0-5 [facility] Comment on above: Performed By: #### 4 [id number] #### [facility] [address] [place] [address] Type of Urine collection method Clean Catch Normal [facility] Comment on above: Performed By: #### 4 [id number] #### [facility] [address] [place] [address] URINALYSISOrdered By: SYSTEM SYSTEM on 10-25-2023 Bacteria [...] that meet specific criteria set forth by [facility]. Epithelial cells.squamous Auto (Urine [...] (U) [Mass/Vol] Negative Normal Negativemg/d L [facility] [place] Auto SS WBC Auto (Urine sed) [#/Area] 16-25 graded/HPF Invalid Interpretation Code 0-5graded/HP F [facility] UA Auto SS URINALYSISOrdered By: lEijah Hernandez on 10-25-2023 UA Spec Desc Clean Catch (10/25/23 11:53 PM) Normal [facility] UA Auto SS Urinalysis macro (dipstick) panel (U)on 07-17-2023 Bilirubin, UA Negative Negative - 4(70) +++ mg/dL [facility] Blood, UA Negative Negative - 50 William/mcL [facility] Clarity, UA Clear [facility] Color, UA Yellow [facility] Glucose, UA Negative Negative - 1999(110) ++++ mg/dL [facility] Interpretation and review of laboratory results Abnormal [facility] Ketones, UA Negative Negative - 160(16) ++++ mg/dL [facility] Leukocytes, UA Positive Negative - 500+++ Gerald/mcL [facility] Nitrite, UA Negative Negative - Positive [facility] pH, UA 7.0 5 - 9 [facility] Protein, UA Negative Negative - 1999(20) ++++ mg/dL [facility] Spec Grav, UA 1.020 1 - 1.03 [facility] Urobilinogen, UA 0.2 0.2 - 12 mg/dL [facility] HCG ( test) Ql (U)o n 07-03-2023 Interpretation and review of laboratory results Abnormal [facility] Preg Test, Ur Negative [facility] Urinalysis macro (dipstick) panel (U)on 07-03-2023 Bilirubin, UA Negative Negative - 4(70) +++ mg/dL [facility] Blood, UA Negative Negative - 50 William/mcL [facility] Clarity, UA Clear [facility] Color, UA Yellow [facility] Glucose, UA Negative Negative - 1999(110) ++++ mg/dL [facility] Interpretation and review of laboratory results Normal [facility] Ketones, UA Negative Negative - 160(16) ++++ mg/dL [facility] Leukocytes, UA Negative Negative - 500+++ Gerald/mcL [facility] Nitrite, UA Negative Negative - Positive [facility] pH, UA 5.5 5 - 9 [facility] Protein, UA Negative Negative - 2000(20) ++++ mg/dL [facility] Spec Grav, UA 1.010 1 - 1.03 [facility] Urobilinogen, UA 1.0 0.2 - 12 mg/dL [facility] XR FOOT RT MIN 3 VIEWSon [...] PADDY SAPP Date: 2022-08-30 14:42 Normal [facility] CBC AUTO DIFFon 06-28-2022 BASO # 0.0 103/ul Normal 0.0-0.1 [facility] Comment on above: Performed By: #### C BC #### [facility] [address] [address] [address] Jerald Poon Basophils/100 WBC (Bld) 0.3 % Normal 0.2-2.0 [facility] Comment on above: Performed By: #### C BC #### [facility] [address] [address] [address] Jerald Poon EO # 0.1 103/ul Normal 0.0-0.7 [facility] Comment on above: Performed By: #### C BC #### [facility] [address] [address] [address] Jerald Poon Eosinophils/100 WBC (Bld) 1.1 % Normal 0.9-7.0 [facility] Comment on above: Performed By: #### C BC #### [facility] [address] [place] [address] Dr. Jerald Poon Erythrocyte distribution width (RBC) [Ratio] 14.5 % Normal 11.0-15.0 [facility] Comment on above: Performed By: #### C BC #### [facility] [address] [place] [address] Dr. Jerald Poon Hematocrit (Bld) [Volume fraction] 36.7 % Normal 36.0-48.0 [facility] Comment on above: Performed By: #### C BC #### [facility] [address] [place] [address] Dr. Jerald Poon Hemoglobin (Bld) [Mass/Vol] 13.0 g/dL Normal 12.0-16.0 [facility] Comment on above: Performed By: #### C BC #### [facility] [address] [place] [address] Dr. Jerald Poon IG # 0.04 10e3/ul Critically high 0.00-0.03 [facility] Comment on above: Performed By: #### C BC #### [facility] [address] [place] [address] Dr. Jerald Poon IG % 0.3 % Normal 0.0-0.5 [facility] Comment on above: Performed By: #### C BC #### [facility] [address] [place] [address] Dr. Jerald Poon LYMPH # 3.0 103/ul Normal 1.2-3.8 [facility] Comment on above: Performed By: #### C BC #### [facility] [address] [place] [address] Dr. Jerald Poon Lymphocytes/100 WBC (Bld) 26.2 % Normal 20.5-60.0 [facility] Comment on above: Performed By: #### C BC #### [facility] [address] [place] [address] Dr. Jerald Poon MANUAL DIFF REQ NO Normal [facility] Comment on above: Performed By: #### C BC #### [facility] [address] [address] [address] Jerald Poon MCH (RBC) [Entitic mass] 27.1 pg Normal 26.7-34.0 [facility] Comment on above: Performed By: #### C BC #### [facility] [address] [place] [address] Dr. Jerald Poon MCHC (RBC) [Mass/Vol] 35.4 g/dL Critically high 29.9-35.2 [facility] Comment on above: Performed By: #### C BC #### [facility] [address] [place] [address] Dr. Jerald Poon MCV (RBC) [Entitic vol] 76.6 fL Critically low 81.0-99.0 [facility] Comment on above: Performed By: #### C BC #### [facility] [address] [place] [address] Dr. Jerald Poon MONO # 0.8 103/ul Normal 0.3-0.8 [facility] Comment on above: Performed By: #### C BC #### [facility] [address] [place] [address] Dr. Jerald Poon Monocytes/100 WBC (Bld) 7.0 % Normal 1.7-12.0 [facility] Comment on above: Performed By: #### C BC #### [facility] [address] [place] [address] Dr. Jerald Poon NEUT # 7.5 103/ul Critically high 1.4-6.5 [facility] Comment on above: Performed By: #### C BC #### [facility] [address] [place] [address] Dr. Jerald Poon Neutrophils/100 WBC (Bld) 65.1 % Normal 43.0-75.0 [facility] Comment on above: Performed By: #### C BC #### [facility] [address] [place] [address] Dr. Jerald Poon Platelet mean volume (Bld) [Entitic vol] 10.0 fL Normal 9.5-13.5 [facility] Comment on above: Performed By: #### C BC #### [facility] [address] [place] [address] Dr. Jerald Poon PLT 387 103/ul Normal 150-450 [facility] Comment on above: Performed By: #### C BC #### [facility] [address] [place] [address] Dr. Jerald Poon RBC 4.79 106/ul Normal 4.20-5.40 [facility] Comment on above: Performed By: #### C BC #### [facility] [address] [place] [address] Dr. Jerald Poon WBC 11.6 103/ul Critically high 4.0-11.0 [facility] Comment on above: Performed By: #### C BC #### [facility] [address] [place] [address] Dr. Jerald Poon CULTURE URINEon 06-28-2022 CULTURE URINE Culture Observations: LIGHT GROWTH OF MIXED GENITAL ZACARIAS. NO POTENTIAL PATHOGENS SEEN. Normal [facility] Comment on above: Performed By: #### U RCX #### [facility] [address] [place] [address] Dr. Jerald Poon ER URINE PROFILEon 3 Bilirubin Ql (U) Negative Normal NEGATIVE [facility] Comment on above: Performed By: #### U MICRO, ERUR #### [facility] [address] [place] [address] Dr. Jerald Poon Clarity (U) CLEAR Normal CLEAR [facility] Comment on above: Performed By: #### U MICRO, ERUR #### [facility] [address] [place] [address] Dr. Jerald Poon Color (U) YELLOW Normal YELLOW [facility] Comment on above: Performed By: #### U MICRO, ERUR #### [facility] [address] [place] [address] Dr. Jerald Poon ERUNORBERTO A micrscopic examination will be performed if indicated. Normal [facility] Comment on above: Performed By: #### U MICRO, ERUR #### [facility] [address] [place] [address] Dr. Jerald Poon Glucose Ql (U) Negative Normal NEGATIVE [facility] Comment on above: Performed By: #### U MICRO, ERUR #### [facility] [address] [address] [address] Jerald Poon Hemoglobin Ql (U) Negative Normal NEGATIVE [facility] Comment on above: Performed By: #### U MICRO, ERUR #### [facility] [address] [address] [address] Jerald Poon Ketones Ql (U) 40 mg/dl Abnormal NEGATIVE [facility] Comment on above: Performed By: #### U MICRO, ERUR #### [facility] [address] [address] [address] Jerald Poon LEUKOCYTES TRACE Abnormal NEGATIVE [facility] Comment on above: Performed By: #### U MICRO, ERUR #### [facility] [address] [place] [address] Dr. Jerald Poon Nitrite Ql (U) Negative Normal NEGATIVE [facility] Comment on above: Performed By: #### U MICRO, ERUR #### [facility] [address] [place] [address] Dr. Jerald Poon pH (U) 6.0 [pH] Normal 5-9 [facility] Comment on above: Performed By: #### U MICRO, ERUR #### [facility] [address] [place] [address] Dr. Jerald Poon SPEC GRAVITY >=1.030 Abnormal 1.005-<=1.02 5 [facility] Comment on above: Performed By: #### U MICRO, ERUR #### [facility] [address] [place] [address] Dr. Jerald Poon UA PROTEIN Negative Normal NEGATIVE/ TRACE [facility] Comment on above: Performed By: #### U MICRO, ERUR #### [facility] [address] [place] [address] Dr. Jerald Poon UR MICRO IND INDICATED Normal [facility] Comment on above: Performed By: #### U MICRO, ERUR #### [facility] [address] [place] [address] Dr. Jerald Poon Urobilinogen Qn (U) 0.2 {Lyly'U}/dL Normal 0.2 - 1. 0 [facility] Comment on above: Performed By: #### U MICRO, ERUR #### [facility] [address] [place] [address] Dr. Jerald Poon PREG QUANT HCGon 06-28-2022 HCG QUANT <1 Normal [facility] Comment on above: Performed By: #### P REGQNT #### [facility] [address] [place] [address] Dr. Jerald Poon HCG RANGE SEE BELOW Normal [facility] Comment on above: Result Comment: 5-50 0.2-1 WEEK 50-500 1-2 WEEKS 100-5,000 2-3 WEEKS 500-10,000 3-4 WEEKS 1,000-50,000 4-5 WEEKS 10,000-100,000 5-6 WEEKS 15,000-200,000 6-8 WEEKS 10,000-100,000 2-3 MONTHS Performed By: #### P REGQNT #### [facility] [address] [place] [address] Dr. Jerald Poon PROF CHEM 8 (BAS METB)on Anion gap [Moles/Vol] 14.0 mmol/L Normal [facility] Comment on above: Performed By: #### C BC #### [facility] [address] [place] [address] Dr. Jerald Poon Calcium [Mass/Vol] 9.6 mg/dL Normal 8.5-10.1 [facility] Comment on above: Performed By: #### C BC #### [facility] [address] [place] [address] Dr. Jerald Poon Chloride [Moles/Vol] 101 mmol/L Normal 98-107 [facility] Comment on above: Performed By: #### C BC #### [facility] [address] [place] [address] Dr. Jerald Poon CO2 [Moles/Vol] 25.4 mmol/L Normal 21.0-32.0 [facility] Comment on above: Performed By: #### C BC #### [facility] [address] [address] [address] Jerald Poon Creatinine [Mass/Vol] 0.92 mg/dL Normal 0.55-1.02 [facility] Comment on above: Performed By: #### C BC #### [facility] [address] [address] [address] Jerald Poon EGFR-AF OMANI >60 Normal >=60 [facility] Comment on above: Performed By: #### C BC #### [facility] [address] [address] [address] Jerald Poon EGFR-NON AF OMANI >60 Normal >=60 [facility] Comment on above: Performed By: #### C BC #### [facility] [address] [place] [address] Dr. Jerald Poon Glucose [Mass/Vol] 101 mg/dL Normal 74-106 [facility] Comment on above: Performed By: #### C BC #### [facility] [address] [place] [address] Dr. Jerald Poon Potassium [Moles/Vol] 3.4 mmol/L Critically low 3.5-5.1 [facility] Comment on above: Performed By: #### C BC #### [facility] [address] [place] [address] Dr. Jerald Poon Sodium [Moles/Vol] 137 mmol/L Normal 136-145 [facility] Comment on above: Performed By: #### C BC #### [facility] [address] [place] [address] Dr. Jerald Poon Urea nitrogen [Mass/Vol] 11.0 mg/dL Normal 7.0-18.0 [facility] Comment on above: Performed By: #### C BC #### [facility] [address] [place] [address] Dr. Jerald Poon Urea nitrogen/Creatinine [Mass ratio] 12.0 mg/mg Normal [facility] Comment on above: Performed By: #### C BC #### [facility] [address] [place] [address] Dr. Jerald Poon TSHon 06-28-2022 TSH 1.319 uIU/mL Normal 0.358-3.740 [facility] Comment on above: Performed By: #### C BC #### [facility] [address] [place] [address] Dr. Jerald Poon URINE MICROSCOPIC ONLYon BACTERIA SMALL Abnormal NONE SEEN [facility] Comment on above: Performed By: #### U MICRO, ERUR #### [facility] [address] [place] [address] Dr. Jerald Poon Bacteria identified Cx Nom (U) INDICATED Normal [facility] Comment on above: Performed By: #### U MICRO, ERUR #### [facility] [address] [place] [address] Dr. Jerald Poon CAST NONE SEEN Normal NONE SEEN [facility] Comment on above: Performed By: #### U MICRO, ERUR #### [facility] [address] [place] [address] Dr. Jerald Poon Crystals LM Nom (Urine sed) NONE SEEN Normal NONE SEEN [facility] Comment on above: Performed By: #### U MICRO, ERUR #### [facility] [address] [place] [address] Dr. Jerald Poon Epithelial cells LM Ql (Urine sed) FEW Abnormal NONE SEEN /RARE [facility] Comment on above: Performed By: #### U MICRO, ERUR #### [facility] [address] [place] [address] Dr. Jerald Poon MUCOUS NONE SEEN Normal NONE SEEN [facility] Comment on above: Performed By: #### U MICRO, ERUR #### [facility] [address] [place] [address] Dr. Jerald Poon RBC NONE SEEN Abnormal 0-2 [facility] Comment on above: Performed By: #### U MICRO, ERUR #### [facility] [address] [place] [address] Dr. Jerald Poon WBC 2-5 Abnormal NONE SEEN [facility] Comment on above: Performed By: #### U MICRO, ERUR #### [facility] [address] [address] [address] Jerald Poon CBC AUTO DIFFon 04-01-2022 BASO # 0.0 103/ul Normal 0.0-0.1 [facility] Comment on above: Performed By: #### C BC #### [facility] [address] [place] [address] Dr. Jerald Poon Basophils/100 WBC (Bld) 0.5 % Normal 0.2-2.0 [facility] Comment on above: Performed By: #### C BC #### [facility] [address] [place] [address] Dr. Jerald Poon EO # 0.1 103/ul Normal 0.0-0.7 [facility] Comment on above: Performed By: #### C BC #### [facility] [address] [place] [address] Dr. Jerald Poon Eosinophils/100 WBC (Bld) 1.7 % Normal 0.9-7.0 [facility] Comment on above: Performed By: #### C BC #### [facility] [address] [place] [address] Dr. Jerald Poon Erythrocyte distribution width (RBC) [Ratio] 14.2 % Normal 11.0-15.0 [facility] Comment on above: Performed By: #### C BC #### [facility] [address] [place] [address] Dr. Jerald Poon Hematocrit (Bld) [Volume fraction] 36.7 % Normal 36.0-48.0 [facility] Comment on above: Performed By: #### C BC #### [facility] [address] [place] [address] Dr. Jerald Poon Hemoglobin (Bld) [Mass/Vol] 12.1 g/dL Normal 12.0-16.0 [facility] Comment on above: Performed By: #### C BC #### [facility] [address] [place] [address] Dr. Jerald Poon IG # 0.01 10e3/ul Normal 0.00-0.03 [facility] Comment on above: Performed By: #### C BC #### [facility] [address] [place] [address] Dr. Jerald Poon IG % 0.1 % Normal 0.0-0.5 [facility] Comment on above: Performed By: #### C BC #### [facility] [address] [place] [address] Dr. Jerald Poon LYMPH # 2.3 103/ul Normal 1.2-3.8 [facility] Comment on above: Performed By: #### C BC #### [facility] [address] [place] [address] Dr. Jerald Poon Lymphocytes/100 WBC (Bld) 30.8 % Normal 20.5-60.0 [facility] Comment on above: Performed By: #### C BC #### [facility] [address] [place] [address] Dr. Jerald Poon MANUAL DIFF REQ NO Normal [facility] Comment on above: Performed By: #### C BC #### [facility] [address] [place] [address] Dr. Jerald Poon MCH (RBC) [Entitic mass] 27.3 pg Normal 26.7-34.0 [facility] Comment on above: Performed By: #### C BC #### [facility] [address] [place] [address] Dr. Jerald Poon MCHC (RBC) [Mass/Vol] 33.0 g/dL Normal 29.9-35.2 [facility] Comment on above: Performed By: #### C BC #### [facility] [address] [place] [address] Dr. Jerald Poon MCV (RBC) [Entitic vol] 82.7 fL Normal 81.0-99.0 [facility] Comment on above: Performed By: #### C BC #### [facility] [address] [place] [address] Dr. Jerald Poon MONO # 0.8 103/ul Normal 0.3-0.8 [facility] Comment on above: Performed By: #### C BC #### [facility] [address] [place] [address] Dr. Jerald Poon Monocytes/100 WBC (Bld) 10.6 % Normal 1.7-12.0 [facility] Comment on above: Performed By: #### C BC #### [facility] [address] [place] [address] Dr. Jerald Poon NEUT # 4.2 103/ul Normal 1.4-6.5 [facility] Comment on above: Performed By: #### C BC #### [facility] [address] [place] [address] Dr. Jerald Poon Neutrophils/100 WBC (Bld) 56.3 % Normal 43.0-75.0 [facility] Comment on above: Performed By: #### C BC #### [facility] [address] [place] [address] Dr. Jerald Poon Platelet mean volume (Bld) [Entitic vol] 10.2 fL Normal 9.5-13.5 [facility] Comment on above: Performed By: #### C BC #### [facility] [address] [place] [address] Dr. Jerald Poon PLT 375 103/ul Normal 150-450 [facility] Comment on above: Performed By: #### C BC #### [facility] [address] [place] [address] Dr. Jerald Poon RBC 4.44 106/ul Normal 4.20-5.40 [facility] Comment on above: Performed By: #### C BC #### [facility] [address] [place] [address] Dr. Jerald Poon WBC 7.5 103/ul Normal 4.0-11.0 [facility] Comment on above: Performed By: #### C BC #### [facility] [address] [place] [address] Dr. Jerald Poon ER URINE PROFILEon 2 Bilirubin Ql (U) Negative Normal NEGATIVE [facility] Comment on above: Performed By: #### C BC #### [facility] [address] [place] [address] Dr. Jerald Poon Clarity (U) CLEAR Normal CLEAR [facility] Comment on above: Performed By: #### C BC #### [facility] [address] [address] [address] Jerald Poon Color (U) YELLOW Normal YELLOW [facility] Comment on above: Performed By: #### C BC #### [facility] [address] [address] [address] Jerald CEBALLOS A micrscopic examination will be performed if indicated. Normal [facility] Comment on above: Performed By: #### C BC #### [facility] [address] [address] [address] Jerald Poon Glucose Ql (U) Negative Normal NEGATIVE [facility] Comment on above: Performed By: #### C BC #### [facility] [address] [place] [address] Dr. Jerald Poon Hemoglobin Ql (U) Negative Normal NEGATIVE [facility] Comment on above: Performed By: #### C BC #### [facility] [address] [place] [address] Dr. Jerald Poon Ketones Ql (U) Negative Normal NEGATIVE [facility] Comment on above: Performed By: #### C BC #### [facility] [address] [place] [address] Dr. Jerald Poon LEUKOCYTES Negative Normal NEGATIVE [facility] Comment on above: Performed By: #### C BC #### [facility] [address] [place] [address] Dr. Jerald Poon Nitrite Ql (U) Negative Normal NEGATIVE [facility] Comment on above: Performed By: #### C BC #### [facility] [address] [place] [address] Dr. Jerald Poon pH (U) 7.0 [pH] Normal 5-9 [facility] Comment on above: Performed By: #### C BC #### [facility] [address] [place] [address] Dr. Jerald Poon SPEC GRAVITY 1.025 Normal 1.005-<=1.02 5 [facility] Comment on above: Performed By: #### C BC #### [facility] [address] [place] [address] Dr. Jerald Poon UA PROTEIN Negative Normal NEGATIVE/ TRACE [facility] Comment on above: Performed By: #### C BC #### [facility] [address] [address] [address] Jerald Poon UR MICRO IND NOT INDICATED Normal [facility] Comment on above: Performed By: #### C BC #### [facility] [address] [place] [address] Dr. Jerald Poon Urobilinogen Qn (U) 1.0 {Lyly'U}/dL Normal 0.2 - 1. 0 [facility] Comment on above: Performed By: #### C BC #### [facility] [address] [place] [address] Dr. Jerald Poon PREG QUANT HCGon 04-01-2022 HCG QUANT 1 mIU/mL Normal [facility] Comment on above: Performed By: #### P REGQNT #### [facility] [address] [place] [address] Dr. Jerald Poon HCG RANGE SEE BELOW Normal [facility] Comment on above: Result Comment: 5-50 0.2-1 WEEK 50-500 1-2 WEEKS 100-5,000 2-3 WEEKS 500-10,000 3-4 WEEKS 1,000-50,000 4-5 WEEKS 10,000-100,000 5-6 WEEKS 15,000-200,000 6-8 WEEKS 10,000-100,000 2-3 MONTHS Performed By: #### P REGQNT #### [facility] [address] [place] [address] Dr. Jerald Poon PROF 14(COMP METB)on 022 Albumin [Mass/Vol] 3.6 g/dL Normal 3.4-5.0 [facility] Comment on above: Performed By: #### C MP #### [facility] [address] [place] [address] Dr. Jerald Poon Albumin/Globulin [Mass ratio] 0.8 {ratio} Normal [facility] Comment on above: Performed By: #### C MP #### [facility] [address] [address] [address] Jerald Poon ALP [Catalytic activity/Vol] 65 U/L Normal 46-116 [facility] Comment on above: Performed By: #### C MP #### [facility] [address] [place] [address] Dr. Jerald Poon ALT [Catalytic activity/Vol] 22 U/L Normal 14-59 [facility] Comment on above: Performed By: #### C MP #### [facility] [address] [address] [address] Jerald Poon Anion gap [Moles/Vol] 10.3 mmol/L Normal [facility] Comment on above: Performed By: #### C MP #### [facility] [address] [place] [address] Dr. Jerald Poon AST [Catalytic activity/Vol] 14 U/L Critically low 15-37 [facility] Comment on above: Performed By: #### C MP #### [facility] [address] [place] [address] Dr. Jerald Poon Bilirubin [Mass/Vol] 0.1 mg/dL Critically low 0.2-1.0 [facility] Comment on above: Performed By: #### C MP #### [facility] [address] [place] [address] Dr. Jerald Poon Calcium [Mass/Vol] 8.6 mg/dL Normal 8.5-10.1 [facility] Comment on above: Performed By: #### C MP #### [facility] [address] [place] [address] Dr. Jerald Poon Chloride [Moles/Vol] 104 mmol/L Normal 98-107 [facility] Comment on above: Performed By: #### C MP #### [facility] [address] [address] [address] Jerald Poon CO2 [Moles/Vol] 28.1 mmol/L Normal 21.0-32.0 [facility] Comment on above: Performed By: #### C MP #### [facility] [address] [place] [address] Dr. Jerald Poon Creatinine [Mass/Vol] 0.99 mg/dL Normal 0.55-1.02 [facility] Comment on above: Performed By: #### C MP #### [facility] [address] [address] [address] Jerald Poon EGFR-AF OMANI >60 Normal >=60 [facility] Comment on above: Performed By: #### C MP #### [facility] [address] [address] [address] Jerald Poon EGFR-NON AF OMANI >60 Normal >=60 [facility] Comment on above: Performed By: #### C MP #### [facility] [address] [address] [address] Jerald Poon Globulin (S) [Mass/Vol] 4.5 g/dL Normal [facility] Comment on above: Performed By: #### C MP #### [facility] [address] [place] [address] Dr. Jerald Poon Glucose [Mass/Vol] 94 mg/dL Normal 74-106 [facility] Comment on above: Performed By: #### C MP #### [facility] [address] [address] [address] Jerald Poon Potassium [Moles/Vol] 3.4 mmol/L Critically low 3.5-5.1 [facility] Comment on above: Performed By: #### C MP #### [facility] [address] [address] [address] Jerald Poon Protein [Mass/Vol] 8.1 g/dL Normal 6.4-8.2 [facility] Comment on above: Performed By: #### C MP #### [facility] [address] [address] [address] Jerald Poon Sodium [Moles/Vol] 139 mmol/L Normal 136-145 [facility] Comment on above: Performed By: #### C MP #### [facility] [address] [address] [address] Jerald Poon Urea nitrogen [Mass/Vol] 8.0 mg/dL Normal 7.0-18.0 [facility] Comment on above: Performed By: #### C MP #### [facility] [address] [place], [place] [address] Dr. Jerald Poon Urea nitrogen/Creatinine [Mass ratio] 8.1 mg/mg Normal [facility] Comment on above: Performed By: #### C MP #### [facility] [address] [place], [place] [address] Dr. Jerald Poon US PELVIS TRANSVAGon 022 [...] by: LUH MANRIQUE Date: 2022-04-01 21:55 Normal [facility] Automated erythrocytes count in urine sediment (number/area)Ordered By: Anders Sesay on 10-19-2021 RBC Auto (Urine sed) [#/Area] 1-2 [HPF] [facility] Automated leukocytes count i n urine sediment (number/area)Ordered By: Anders Sesay on 10-19-2021 WBC Auto (Urine sed) [#/Area] 3-4 [HPF] [facility] Basophils Auto (Bld) [#/Vol] Ordered By: Anders Sesay on 10-19-2021 Basophils (Bld) [#/Vol] 0.1 10*3/uL 0.0-0.2 [facility] Basophils/100 WBC Auto (Bld) Ordered By: Anders Sesay on 10-19-2021 Basophils/100 WBC (Bld) 0.6 % [facility] Bilirubin Test strip Ql (U)O rdered By: Anders Sseay on 10-19-2021 Bilirubin Ql (U) Negative Negative [facility] Blood hemoglobin measurement (mass/volume)Ordered By: Anders Sesay on 10-19-2021 Hemoglobin (Bld) [Mass/Vol] 13.2 g/dL 11.8-15.4 [facility] Blood leukocytes automated c ount (number/volume)Ordered By: Anders Sesay on 10-19-2021 WBC (Bld) [#/Vol] 9.1 10*3/uL 4.5-11.0 [facility] Body fluid albumin measureme nt (mass/volume)Ordered By: Anders Sesay on 10-19-2021 Albumin (Body fld) [Mass/Vol] 3.8 g/dL 3.2-5.5 [facility] Color Auto (U)Ordered By: Jason Sesay on 10-19-2021 Color (U) Yellow Yellow [facility] Creatinine and Glomerular fi ltration rate.predicted panel (S/P/Bld)Ordered By: Anders Sesay on 10-19-2021 Creatinine [Mass/Vol] 0.87 mg/dL 0.44-1.03 [facility] Eosinophils Auto (Bld) [#/Vo l]Ordered By: Anders Sesay on 10-19-2021 Eosinophils (Bld) [#/Vol] 0.1 10*3/uL 0.0-0.45 [facility] Eosinophils/100 WBC Auto (Bl d)Ordered By: Anders Sesay on 10-19-2021 Eosinophils/100 WBC (Bld) 0.9 % [facility] Erythrocyte distribution wid th Auto (RBC) [Ratio]Ordered By: Anders Sesay on 10-19-2021 Erythrocyte distribution width (RBC) [Ratio] 16.4 % 11.9-15.3 [facility] Estimated glomerular filtrat ion rate (GFR) non- AmericanOrdered By: Anders Sesay on 10-19-2021 GFR/1.73 sq M.predicted among non-blacks MDRD (S/P/Bld) [Vol rate/Area] > 60 mL/Min [facility] Globulin Calc (S) [Mass/Vol] Ordered By: Anders Sesay on 10-19-2021 Globulin (S) [Mass/Vol] 4.3 g/dL [facility] HCG ( test) IA.rapi d Ql (U)Ordered By: Anders Sesay on 10-19-2021 HCG ( test) Ql (U) Negative [facility] Hematocrit Auto (Bld) [Volum e fraction]Ordered By: Anders Sesay on 10-19-2021 Hematocrit (Bld) [Volume fraction] 40.2 % 34.0-46.4 [facility] Ketones Auto test strip (U) [Mass/Vol]Ordered By: Anders Sesay on 10-19-2021 Ketones (U) [Mass/Vol] Negative Negative [facility] - Hematology and Cell countsOrdered By: Anders Sesay on 10-19-2021 Nucleated RBC/100 WBC (Bld) [Ratio] 0.2 % 0-0.5 [facility] - UrinalysisOrder ed By: Anders Sesay on 10-19-2021 Hyaline casts LM Ql (Urine sed) 0-8 [LPF] [facility] Lymphocytes Auto (Bld) [#/Vo l]Ordered By: Anders Sesay on 10-19-2021 Lymphocytes (Bld) [#/Vol] 2.4 10*3/uL 1.00-4.8 [facility] Lymphocytes/100 WBC Auto (Bl d)Ordered By: Anders Sesay on 10-19-2021 Lymphocytes/100 WBC (Bld) 26.7 % [facility] MCH Auto (RBC) [Entitic mass ]Ordered By: Anders Sesay on 10-19-2021 MCH (RBC) [Entitic mass] 26.3 pg 24.7-34.3 [facility] MCHC Auto (RBC) [Mass/Vol]Or dered By: Anders Sesay on 10-19-2021 MCHC (RBC) [Mass/Vol] 32.9 g/dL 32.0-35.0 [facility] MCV Auto (RBC) [Entitic vol] Ordered By: Anders Sesay on 10-19-2021 MCV (RBC) [Entitic vol] 80.1 fL 80-100 [facility] Monocytes Auto (Bld) [#/Vol] Ordered By: Anders Sesay on 10-19-2021 Monocytes (Bld) [#/Vol] 0.7 10*3/uL 0.0-0.8 [facility] Monocytes/100 WBC Auto (Bld) Ordered By: Anders Sesay on 10-19-2021 Monocytes/100 WBC (Bld) 7.6 % [facility] Neutrophils Auto (Bld) [#/Vo l]Ordered By: Anders Sesay on 10-19-2021 Neutrophils (Bld) [#/Vol] 5.8 10*3/uL 1.8-7.7 [facility] Neutrophils/100 WBC Auto (Bl d)Ordered By: Anders Sesay on 10-19-2021 Neutrophils/100 WBC (Bld) 64.2 % [facility] Nitrite Test strip Ql (U)Ord ered By: Anders Sesay on 10-19-2021 Nitrite Ql (U) Negative Negative [facility] No Panel InformationOrdered By: Anders Sesay on 10-19-2021 Estimated GFR () > 60 mL/Min [facility] Comment on above: GFR estimated refere nce range: According to KDOQI guidelines, <60 ml/min/1.73m2 is sufficient to diagnose a patient with chronic kidney disease. Pharmacy Creatinine Clearance (Chem 147.41 [facility] Platelet mean volume Auto (B ld) [Entitic vol]Ordered By: Anders Sesay on 10-19-2021 Platelet mean volume (Bld) [Entitic vol] 8.6 fL 6.3-10.7 [facility] Platelets Auto (Bld) [#/Vol] Ordered By: Anders Sesay on 10-19-2021 Platelets (Bld) [#/Vol] 395 10*3/uL 150-450 [facility] Protein Auto test strip (U) [Mass/Vol]Ordered By: Anders Sesay on 10-19-2021 Protein (U) [Mass/Vol] Negative Negative [facility] Protein [Mass/volume] in Ser um or PlasmaOrdered By: Anders Sesay on 10-19-2021 Protein [Mass/Vol] 8.1 g/dL 6.1-7.9 [facility] RBC Auto (Bld) [#/Vol]Ordere d By: Anders Sesay on 10-19-2021 RBC (Bld) [#/Vol] 5.02 10*6/uL 3.60-5.00 [facility] Serum or plasma alanine ayoub otransferase measurement without P-5'-P (enzymatic activiOrdered By: Anders Sesay on 10-19-2021 ALT No additional P-5'-P [Catalytic activity/Vol] 20 U/L 10-60 [facility] Serum or plasma albumin/glob ulin mass ratioOrdered By: Anders Sesay on 10-19-2021 Albumin/Globulin [Mass ratio] 0.9 {ratio} [facility] Serum or plasma alkaline cosmo sphatase measurement (enzymatic activity/volume)Ordered By: Anders Sesay on 10-19-2021 ALP [Catalytic activity/Vol] 55 U/L 32-92 [facility] Serum or plasma aspartate am inotransferase measurement (enzymatic activity/volume)Ordered By: Anders Sesay on 10-19-2021 AST [Catalytic activity/Vol] 17 U/L 10-42 [facility] Serum or plasma calcium joann urement (mass/volume)Ordered By: Anders Sesay on 10-19-2021 Calcium [Mass/Vol] 9.1 mg/dL 8.2-10.2 [facility] Serum or plasma chloride adan surement (moles/volume)Ordered By: Anders Sesay on 10-19-2021 Chloride [Moles/Vol] 103 mmol/L 95-114 [facility] Serum or plasma glucose joann urement [...] 10-19-2021 Potassium [Moles/Vol] 3.7 mmol/L 3.5-5.1 [facility] Serum or plasma sodium measu rement (moles/volume)Ordered By: Anders Sesay on 10-19-2021 Sodium [Moles/Vol] 137 mmol/L 136-146 [facility] Serum or plasma total biliru bin measurement (mass/volume)Ordered By: Anders Sesay on 10-19-2021 Bilirubin [Mass/Vol] 0.3 mg/dL 0.3-1.2 [facility] Serum or plasma total carbon dioxide measurement (moles/volume)Ordered By: Anders Sesay on 10-19-2021 CO2 [Moles/Vol] 24.2 mmol/L 22.0-30.0 [facility] Serum or plasma urea nitroge n measurement (mass/volume)Ordered By: Anders Sesay on 10-19-2021 Urea nitrogen [Mass/Vol] 7 mg/dL 9- [facility] Specific gravity Auto test s trip (U) [Rel density]Ordered By: Anders Sesay on 10-19-2021 Specific gravity (U) [Rel density] 1.014 1.001-1.030 [facility] Squamous epithelial cells de tection in urine sediment by light microscopyOrdered By: Anders Sesay on 10-19-2021 Epithelial cells.squamous LM Ql (Urine sed) 3-4 [HPF] [facility] Urine bacteria detection by automated methodOrdered By: Anders Sesay on 10-19-2021 Bacteria Auto Ql (U) 1+ None Seen [facility] Urine clarity by refractomet ry automatedOrdered By: Anders Sesay on 10-19-2021 Clarity Refractometry automated (U) Clear Clear [facility] Urine glucose measurement by automated test strip (mass/volume)Ordered By: Anders Sesay on 10-19-2021 Glucose Auto test strip (U) [Mass/Vol] Normal mg/dL Normal [facility] Urine hemoglobin detection b y automated test stripOrdered By: Anders Sesay on 10-19-2021 Hemoglobin Auto test strip Ql (U) Negative Negative [facility] Urine leukocyte esterase det ection by automated test stripOrdered By: Anders Sesay on 10-19-2021 Leukocyte esterase Auto test strip Ql (U) 1+ Negative [facility] Urobilinogen Auto test strip (U) [Mass/Vol]Ordered By: Anders Sesay on 10-19-2021 Urobilinogen (U) [Mass/Vol] Normal mg/dL Normal [facility] pH Auto test strip (U)Ordere d By: Anders Sesay on 10-19-2021 pH (U) 5.5 [pH] 5.0-9.0 [facility] US DUP ABD PEL RETRO SCROT [...] FINAL Normal [facility] US NON OB TRANSVAGINALon US NON OB [...] FINAL Normal [facility] Chlamydia/GC,DNA Ampon 07-10 Chlamydia Probe Negative Normal NEG [facility] Comment on above: Result Comment: CHLA MYDIA [...] Performed By: #### U HCG, UAMIC #### [facility] [address] [place] [id number] [employer] Cutter Helper: Campos Avilez MD Gonorrhea Probe Negative Normal NEG [facility] Comment on above: Result Comment: NEIS SERIA [...] Performed By: #### U HCG, UAMIC #### [facility] [address] [place] [id number] [employer] Cutter Helper: Campos Avilez MD Cult,Urineon 07-09-2020 Cult,Urine Specimen Description .CLEAN CATCH URINE Special Requests NOT REPORTED Culture ESCHERICHIA COLI >[id number] CFU/ML Report Status FINAL 07/09/2020 SUSCEPTIBILITY Organism [...] SUSCEPTIBLE Normal [facility] Comment on above: Performed By: #### U HCG, UAMIC #### [place] [address] Card Cutter Helper: Campos Avilez MD ABO/Rh(D)on 07-08-2020 ABO/Rh(D) Positive Normal [facility] Comment on above: Performed By: #### A [facility] #### [place] [address] Card Cutter Helper: Campos Avilez MD CBC with Diffon 07-08-2020 Abs. Basophil 0.04 k/uL Normal 0.00-0.20 [facility] Comment on above: Performed By: #### C P, CDP, COSMO, BHCG, MG, VD25, LIP #### [facility] [address] [place] [address] Card Cutter Helper: Campos Avilez MD Abs.Imm.Granulocyte 0.04 k/uL Normal 0.00-0.30 [facility] Comment on above: Performed By: #### C P, CDP, COSMO, BHCG, MG, VD25, LIP #### [facility] [address] [place] [address] Card Cutter Helper: Campos Avilez MD Abs.Neutrophil (Seg) 8.16 k/uL High 1.80-8.00 [facility] Comment on above: Performed By: #### C P, CDP, COSMO, BHCG, MG, VD25, LIP #### [address] [address] [employer] Helper: Campos Avilez MD Basophils/100 WBC (Bld) 0 % Normal 0-2 [facility] Comment on above: Performed By: #### C P, CDP, COSMO, BHCG, MG, VD25, LIP #### [address] [address] [employer] Helper: Campos Avilez MD Eosinophils (Bld) [#/Vol] 0.10 10*3/uL Normal 0.00-0.44 [facility] Comment on above: Performed By: #### C P, CDP, COSMO, BHCG, MG, VD25, LIP #### [place] [address] [employer] Cutter Helper: Campos Avilez MD Eosinophils/100 WBC (Bld) 1 % Normal 1-4 [facility] Comment on above: Performed By: #### C P, CDP, COSMO, BHCG, MG, VD25, LIP #### [place] [address] Card Cutter Helper: Campos Avilez MD Erythrocyte distribution width (RBC) [Ratio] 14.0 % Normal 11.8-14.4 [facility] Comment on above: Performed By: #### C P, CDP, COSMO, BHCG, MG, VD25, LIP #### [address] [address] [employer] C[employer] Helper: Campos Avilez MD Hematocrit (Bld) [Volume fraction] 34.3 % Low 36.3-47.1 [facility] Comment on above: Performed By: #### C P, CDP, COSMO, BHCG, MG, VD25, LIP #### [address] [address] [employer]per: Campos Avilez MD Hemoglobin (Bld) [Mass/Vol] 11.1 g/dL Low 11.9-15.1 [facility] Comment on above: Performed By: #### C P, CDP, COSMO, BHCG, MG, VD25, LIP #### [address] [address] [employer] C[employer] Helper: Campos Avilez MD Immature granulocytes (Bld) [#/Vol] 0 % Normal 0 [facility] Comment on above: Performed By: #### C P, CDP, COSMO, BHCG, MG, VD25, LIP #### [place] [address] Card Cutter Helper: Campos Avilez MD Lymphocytes (Bld) [#/Vol] 1.77 10*3/uL Normal 1.20-5.20 [facility] Comment on above: Performed By: #### C P, CDP, COSMO, BHCG, MG, VD25, LIP #### [place] [address] [employer] Cutter Helper: Campos Avilez MD Lymphocytes/100 WBC (Bld) 16 % Low 25-45 [facility] Comment on above: Performed By: #### C P, CDP, COSMO, BHCG, MG, VD25, LIP #### [place] [address] Card Cutter Helper: Campos Avilez MD MCH (RBC) [Entitic mass] 26.6 pg Normal 25.0-35.0 [facility] Comment on above: Performed By: #### C P, CDP, OCSMO, BHCG, MG, VD25, LIP #### [address] [address] Card C[employer] Helper: Campos Avilez MD MCHC (RBC) [Mass/Vol] 32.4 g/dL Normal 28.4-34.8 [facility] Comment on above: Performed By: #### C P, CDP, COSMO, BHCG, MG, VD25, LIP #### [address] [address] [employer] C[employer] Helper: Campos Avilez MD MCV (RBC) [Entitic vol] 82.3 fL Normal 78.0-102.0 [facility] Comment on above: Performed By: #### C P, CDP, COSMO, BHCG, MG, VD25, LIP #### [address] [address] Card C[employer] Helper: Campos Avilez MD Monocytes (Bld) [#/Vol] 0.73 10*3/uL Normal 0.10-1.40 [facility] Comment on above: Performed By: #### C P, CDP, COSMO, BHCG, MG, VD25, LIP #### [place] [address] [employer] Cutter Helper: Campos Avilez MD Monocytes/100 WBC (Bld) 7 % Normal 2-8 [facility] Comment on above: Performed By: #### C P, CDP, COSMO, BHCG, MG, VD25, LIP #### [address] [address] [employer] Helper: Campos Avilez MD Neutrophil (Seg) 75 % High 34-64 [facility] Comment on above: Performed By: #### C P, CDP, COSMO, BHCG, MG, VD25, LIP #### [address] [address] [employer] Cutter Helper: Campos Avilez MD NRBC Automated 0.0 per 100 WBC Normal 0.0 [facility] [place] [facility] Comment on above: Performed By: #### C P, CDP, COSMO, BHCG, MG, VD25, LIP #### [address] [address] Card Cutter Helper: Campos Avilez MD Platelet mean volume (Bld) [Entitic vol] 11.8 fL Normal 8.1-13.5 [facility] Comment on above: Performed By: #### C P, CDP, COSMO, BHCG, MG, VD25, LIP #### [address] [address] Card Cutter Helper: Campos Avilez MD Platelets (Bld) [#/Vol] 288 10*3/uL Normal 138-453 [facility] Comment on above: Performed By: #### C P, CDP, COSMO, BHCG, MG, VD25, LIP #### [address] [address] Card Cutter Helper: Campos Avilez MD RBC (Bld) [#/Vol] 4.17 10*6/uL Normal 3.95-5.11 [facility] Comment on above: Performed By: #### C P, CDP, COSMO, BHCG, MG, VD25, LIP #### [address] [address] Card Cutter Helper: Campos Avilez MD WBC (Bld) [#/Vol] 10.8 10*3/uL Normal 4.5-13.5 [facility] Comment on above: Performed By: #### C P, CDP, COSMO, BHCG, MG, VD25, LIP #### [address] [address] Card Cutter Helper: Campos Avilez MD Auto Diff Performed NOT REPORTED Normal [facility] Comment on above: Performed By: #### C P, CDP, COSMO, BHCG, MG, VD25, LIP #### [address] [address] Card Cutter Helper: Campos Avilez MD Platelets (Bld) [#/Vol] NOT REPORTED Normal [facility] Comment on above: Performed By: #### C P, CDP, COSMO, BHCG, MG, VD25, LIP #### [address] [address] Card Cutter Helper: Campos Avilez MD RBC morphology finding Nom (Bld) NOT REPORTED Normal [facility] Comment on above: Performed By: #### C P, CDP, COSMO, BHCG, MG, VD25, LIP #### [address] [address] Card Cutter Helper: Campos Avilez MD WBC Morphology NOT REPORTED Normal [facility] Comment on above: Performed By: #### C P, CDP, COSMO, BHCG, MG, VD25, LIP #### [address] [address] Card Cutter Helper: Campos Avilez MD Calcium, Ionicon 07-08-2020 Calcium [Mass/Vol] 1.18 mmol/L Normal 1.13-1.33 [facility] Comment on above: Performed By: #### I OCAL #### [address] [address] Card Cutter Helper: Campos Avilez MD Calcium, Ionizedon Calcium [Mass/Vol] 1.18 mmol/L 1.13 - 1. 33 mmol/L [facility] [place] Comp Metabolic Profon 2020 (cont.) Normal [facility] Comment on above: Result Comment: Aver age GFR for <20 years old not available. Chronic Kidney Disease: <60 mL/min/1.73sq m Kidney failure: <15 mL/min/1.73sq m eGFR calculated using average adult body mass. Additional eGFR calculator available at: http://www.[employer]/multiple_crcl_2012.htm Performed By: #### C P, CDP, COSMO, BHCG, MG, VD25, LIP #### [address] [address] Card Cutter Helper: Campos Avilez MD Albumin [Mass/Vol] 2.3 g/dL Low 3.5-5.2 [facility] Comment on above: Performed By: #### C P, CDP, COSMO, BHCG, MG, VD25, LIP #### [address] [address] Card Cutter Helper: Campos Avilez MD Albumin/Globulin [Mass ratio] 0.9 {ratio} Low 1.0-2.5 [facility] Comment on above: Performed By: #### C P, CDP, COSMO, BHCG, MG, VD25, LIP #### [address] [address] Card Cutter Helper: Campos Avilez MD Alkaline Phos 41 U/L Normal 35-104 [facility] Comment on above: Result Comment: SPEC IMEN MODERATELY HEMOLYZED, RESULTS MAY BE ADVERSELY AFFECTED Performed By: #### C P, CDP, COSMO, BHCG, MG, VD25, LIP #### [address] [address] Card Cutter Helper: Campos Avilez MD ALT [Catalytic activity/Vol] 11 U/L Normal 5-33 [facility] Comment on above: Result Comment: SPEC IMEN MODERATELY HEMOLYZED, RESULTS MAY BE ADVERSELY AFFECTED Performed By: #### C P, CDP, COSMO, BHCG, MG, VD25, LIP #### [address] [address] Card Cutter Helper: Campos Avilez MD Anion gap [Moles/Vol] 9 mmol/L Normal 9-17 [facility] Comment on above: Performed By: #### C P, CDP, COSMO, BHCG, MG, VD25, LIP #### [address] [address] Card Cutter Helper: Campos Avilez MD AST [Catalytic activity/Vol] 28 U/L Normal <32 [facility] Comment on above: Result Comment: SPEC IMEN MODERATELY HEMOLYZED, RESULTS MAY BE ADVERSELY AFFECTED Performed By: #### C P, CDP, COSMO, BHCG, MG, VD25, LIP #### [address] [address] Card Cutter Helper: Campos Avilez MD Bilirubin Ql (U) <0.10 Low 0.3-1.2 [facility] Comment on above: Performed By: #### C P, CDP, COSMO, BHCG, MG, VD25, LIP #### [address] [address] Card Cutter Helper: Campos Avilez MD Calcium [Mass/Vol] 5.5 mg/dL Critically low 8.6-10.4 [facility] Comment on above: Performed By: #### C P, CDP, COSMO, BHCG, MG, VD25, LIP #### [address] [address] Card Cutter Helper: Campos Avilez MD Chloride [Moles/Vol] 118 mmol/L High 98-107 [facility] Comment on above: Performed By: #### C P, CDP, COSMO, BHCG, MG, VD25, LIP #### [address] [address] Card Cutter Helper: Campos Avilez MD CO2 [Moles/Vol] 14 mmol/L Low 20-31 [facility] Comment on above: Performed By: #### C P, CDP, COSMO, BHCG, MG, VD25, LIP #### [address] [address] Card Cutter Helper: Campos Avilez MD Creatinine [Mass/Vol] 0.60 mg/dL Normal 0.50-0.90 [facility] Comment on above: Performed By: #### C P, CDP, COSMO, BHCG, MG, VD25, LIP #### [address] [address] Card Cutter Helper: Campos Avilez MD GFR,non Amer Pediatric GFR requires additional information. Refer to NKDEP website for Normal >60 [facility] Comment on above: Result Comment: calc ulator. Performed By: #### C P, CDP, COSMO, BHCG, MG, VD25, LIP #### [address] [address] Card Cutter Helper: Campos Avilez MD Glucose [Mass/Vol] 84 mg/dL Normal 70-99 [facility] Comment on above: Performed By: #### C P, CDP, COSMO, BHCG, MG, VD25, LIP #### [address] [address] Card Cutter Helper: Campos Avilez MD Potassium [Moles/Vol] 5.1 mmol/L Normal 3.7-5.3 [facility] Comment on above: Result Comment: SPEC IMEN MODERATELY HEMOLYZED, RESULTS MAY BE ADVERSELY AFFECTED Performed By: #### C P, CDP, COSMO, BHCG, MG, VD25, LIP #### [address] [address] Card Cutter Helper: Campos Avilez MD Protein [Mass/Vol] 5.0 g/dL Low 6.4-8.3 [facility] Comment on above: Performed By: #### C P, CDP, COSMO, BHCG, MG, VD25, LIP #### [address] [address] Card Cutter Helper: Campos Avilez MD Sodium [Moles/Vol] 141 mmol/L Normal 135-144 [facility] Comment on above: Performed By: #### C P, CDP, COSMO, BHCG, MG, VD25, LIP #### [facility] [address] [place] [address] Card Cutter Helper: Campos Avilez MD Urea nitrogen [Mass/Vol] 10 mg/dL Normal 6-20 [facility] Comment on above: Performed By: #### C P, CDP, COSMO, BHCG, MG, VD25, LIP #### [facility] [address] [place] [address] Card Cutter Helper: Campos Avilez MD BUN/CRE Ratio NOT REPORTED Normal 9-20 [facility] Comment on above: Performed By: #### C P, CDP, COSMO, BHCG, MG, VD25, LIP #### [facility] [address] [place] [address] Card Cutter Helper: Campos Avilez MD GFR, Amer NOT REPORTED Normal >60 [facility] Comment on above: Performed By: #### C P, CDP, COSMO, BHCG, MG, VD25, LIP #### [facility] [address] [place] [address] Card Cutter Helper: Campos Avilez MD Staging: NOT REPORTED Normal [facility] Comment on above: Performed By: #### C P, CDP, COSMO, BHCG, MG, VD25, LIP #### [facility] [address] [place] [address] Card Cutter Helper: Campos Avilez MD HCG, ,Urineon 07-08 Beta HCG ( test) Ql (U) Negative Normal NEG [facility] Comment on above: Result Comment: Spec imens with hCG levels near the threshold of the test (25 mIU/mL) may give a negative or indeterminate result. In such cases, another test should be performed with a new specimen in 48-72 hours. If early is suspected clinically in this setting, correlation with quantitative serum b-hCG level is suggested. Performed By: #### U HCG, UAMIC #### [facility] [address] [place] [address] Card Cutter Helper: Campos Avilez MD HCG, Quanton 07-08-2020 HCG, Quant <1 Normal <5 [facility] Comment on above: Result Comment: Non-preg premeno [...] CDP, COSMO, BHCG, MG, VD25, LIP #### [facility] [address] [place] [phone] Card Cutter Helper: Campos Avilez MD Lipaseon 07-08-2020 Lipase [Catalytic activity/Vol] 15 U/L Normal 13-60 [facility] Comment on above: Performed By: #### C P, CDP, COSMO, BHCG, MG, VD25, LIP #### [facility] [address] [place] [address] Card Cutter Helper: Campos Avilez MD Magnesiumon 07-08-2020 Magnesium [Mass/Vol] 1.2 mg/dL Low 1.7-2.2 [facility] Comment on above: Performed By: #### C P, CDP, COSMO, BHCG, MG, VD25, LIP #### [facility] [address] [place] [phone] Card Cutter Helper: Campos Avilez MD Interpretation and review of laboratory results Abnormal [place] Magnesium [Mass/Vol] 1.2 mg/dL Low 1.7 - 2 .2 mg/dL [place] Otheron 07-08-2020 Direct Exam Negative [place] , URINEon 1 Beta HCG ( test) Ql (U) Negative NEGATIVE [place] Comment on above: Specimens with hCG [...] 2.6 mg/dL 2.5 - 4 .8 mg/dL [place] Phosphorus, Inorg.on 021 Phosphorus, Inorg. 2.6 mg/dL Normal 2.5-4.8 [facility] Comment on above: Performed By: #### U HCG, UAMIC #### [facility] [address] [place] [address] Card Cutter Helper: Campos Avilez MD NON OB TRANSVAGINALon Elia, Mhpn Incoming Radiant Results From [employer] - 07/08/2020 12:31 AM EST EXAMINATION: PELVIC [...] No evidence of ovarian torsion is noted. [place], [place] Unremarkable pelvic ultrasound. No evidence of ovarian torsion is noted. [place] EXAMINATION: PELVIC ULTRASOUND 07/07/2020 TECHNIQUE: Transvaginal [...] Free Fluid: No evidence of free fluid. [facility]- [place], [place] Urinalysis w/ Microon 2020 ----- Normal [facility] Comment on above: Performed By: #### U HCG, UAMIC #### [address] [address] Card Cutter Helper: Campos Avilez MD Acetoacetic Acid,Ur Negative Normal NEG [facility] Comment on above: Performed By: #### U HCG, UAMIC #### [address] [address] Card Cutter Helper: Campos Avilez MD Bacteria LM.HPF (Urine sed) [#/Area] MANY Abnormal NONE [facility] Comment on above: Performed By: #### U HCG, UAMIC #### [address] [address] Card Cutter Helper: Campos Avilez MD Bilirubin, SemiQt,Ur Negative Normal NEG [facility] Comment on above: Performed By: #### U HCG, UAMIC #### [address] [address] Card Cutter Helper: Campos Avilez MD Color (U) ORANGE Abnormal YEL [facility] Comment on above: Result Comment: INTE RPRET WITH CAUTION DUE TO INTENSE COLOR OF URINE. Performed By: #### U HCG, UAMIC #### [address] [address] Card Cutter Helper: Campos Avilez MD Epithelial cells LM.HPF (Urine sed) [#/Area] 0 TO 2 Normal 0-5 [facility] Comment on above: Performed By: #### U HCG, UAMIC #### [address] [address] Card Cutter Helper: Campos Avilez MD Glucose Ql (U) Negative Normal NEG [facility] Comment on above: Performed By: #### U HCG, UAMIC #### [address] [address] Card Cutter Helper: Campos Avilez MD Hemoglobin, Ur LARGE Abnormal NEG [facility] Comment on above: Performed By: #### U HCG, UAMIC #### [address] [address] Card Cutter Helper: Campos Avilez MD Leukocyte esterase Test strip Ql (U) MODERATE Abnormal NEG [facility] Comment on above: Performed By: #### U HCG, UAMIC #### [address] [address] Card Cutter Helper: Campos Avilez MD Nitrite,Ur Positive Abnormal NEG [facility] Comment on above: Performed By: #### U HCG, UAMIC #### [address] [address] Card Cutter Helper: Campos Avilez MD pH (U) 5.5 [pH] Normal 5.0-8.0 [facility] Comment on above: Performed By: #### U HCG, UAMIC #### [address] [address] Card Cutter Helper: Campos Avilez MD Protein Ql (U) 2+ Abnormal NEG [facility] Comment on above: Performed By: #### U HCG, UAMIC #### [address] [address] Card Cutter Helper: Campos Avilez MD RBC (U) [#/Vol] 50 TO 100 Normal 0-4 [facility] Comment on above: Result Comment: Refe rence range defined for non-centrifuged specimen. Performed By: #### U HCG, UAMIC #### [address] [address] Card Cutter Helper: Campos Avilez MD Specific gravity (U) [Rel density] 1.021 Normal 1.005-1.030 [facility] Comment on above: Performed By: #### U HCG, UAMIC #### [address] [address] Card Cutter Helper: Campos Avilez MD Turbidity TURBID Abnormal CLEAR [facility] Comment on above: Performed By: #### U HCG, UAMIC #### [address] [address] Card Cutter Helper: Campos Avilez MD Urobilinogen,Ur Normal Normal NORM [facility] Comment on above: Performed By: #### U HCG, UAMIC #### [address] [address] Card Cutter Helper: Campos Avilez MD WBC (U) [#/Vol] TOO NUMEROUS TO COUNT Normal 0-5 [facility] Comment on above: Performed By: #### U HCG, UAMIC #### [address] [address] Card Cutter Helper: Campos Avilez MD Amorphous sediment LM Ql (Urine sed) NOT REPORTED Normal NONE [facility] Comment on above: Performed By: #### U HCG, UAMIC #### [address] [address] Card Cutter Helper: Campos Avilez MD Casts LM.LPF (Urine sed) [#/Area] NOT REPORTED Normal 0-8 [facility] Comment on above: Performed By: #### U HCG, UAMIC #### [address] [address] Card Cutter Helper: Campos Avilez MD Crystals LM Nom (Urine sed) NOT REPORTED Normal NONE [facility] Comment on above: Performed By: #### U HCG, UAMIC #### [address] [address] Card Cutter Helper: Campos Avilez MD Epithelial, Renal NOT REPORTED Normal 0 [facility] Comment on above: Performed By: #### U HCG, UAMIC #### [facility] [address] [place] [address] Card Cutter Helper: Campos Avilez MD Mucus Strands NOT REPORTED Normal [facility] Comment on above: Performed By: #### U HCG, UAMIC #### [address] [address] Card Cutter Helper: Campos Avilez MD Other Observations NOT REPORTED Normal NREQ [facility] Comment on above: Performed By: #### U HCG, UAMIC #### [address] [address] Card Cutter Helper: Campos Avilez MD Trichomonas NOT REPORTED Normal NONE [facility] Comment on above: Performed By: #### U HCG, UAMIC #### [address] [address] Card Cutter Helper: Campos Avilez MD Yeast LM Ql (Urine sed) NOT REPORTED Normal [facility] Comment on above: Performed By: #### U HCG, UAMIC #### [facility] [address] [place] [address] Card Cutter Helper: Campos Avilez MD Urinalysis with microscopico n 07-08-2020 Amorphous, UA NOT REPORTED None [facility] [place] [place] Bacteria, UA MANY Abnormal None [facility] [place] Bilirubin Urine Negative NEGATIVE [facility] [place] Casts UA NOT REPORTED [facility] [place] Color, UA ORANGE Abnormal YELLOW [facility] [place] Comment on above: INTERPRET WITH CAUTI ON DUE TO INTENSE COLOR OF URINE. Crystals, UA NOT REPORTED None /HPF [place] Epithelial Cells UA 0 TO 2 [place] Glucose, Ur Negative NEGATIVE [place] Interpretation and review of laboratory results Abnormal [place] Ketones Ql (U) Negative NEGATIVE [place] Leukocyte esterase Test strip Ql (U) MODERATE Abnormal NEGATIVE [place] Mucus, UA NOT REPORTED None [place], [place] Nitrite, Urine Positive Abnormal NEGATIVE [place] Other Observations UA NOT REPORTED NOT REQ. M [place] pH, UA 5.5 [place] Protein (U) [Mass/Vol] 2+ Abnormal NEGATIVE [place] RBC (U) [#/Vol] 50 TO 100 [place] Comment on above: Reference range defi sonia for non-centrifuged specimen. Renal Epithelial, UA NOT REPORTED 0 /HPF [place], [place] Specific [place], UA 1.021 [place], [place] Trichomonas, UA NOT REPORTED None [place] Turbidity UA TURBID Abnormal CLEAR [place] Urine Hgb LARGE Abnormal NEGATIVE [place] Urobilinogen, Urine Normal Normal [place] WBC, UA TOO NUMEROUS TO COUNT [place] Yeast, UA NOT REPORTED None [place] VAGINITIS DNA PROBEon 2020 Direct Exam Positive Abnormal [place] Direct Exam Method of testing is a DNA probe intended for detection and identification of Samantha species, Gardnerella vaginalis, and Trichomonas vaginalis nucleic acid in vaginal fluid specimens from patients with symptoms of vaginitis/vaginosis. [place] Interpretation and review of laboratory results Abnormal [place] Special Requests NOT REPORTED [place] Specimen Description .VAGINA [place] Vaginitis DNA Probeon 2020 Vaginitis DNA [...] 07/08/2020 Normal [facility] Comment on above: Performed By: #### U HCG, UAMIC #### [facility] [address] [place], [place] [phone] Card Cutter Helper: Campos Avilez MD Vitamin D 25 Hydroxyon 07-08 Interpretation and review of laboratory results Abnormal [place], [place] Vit D, 25-Hydroxy 12.1 ng/mL Low 30 - 100 ng/mL [place] Comment on above: Reference Range: Vitamin D status Range Deficiency <20 ng/mL Mild Deficiency 20-30 ng/mL Sufficiency 30-100 ng/mL Toxicity >100 ng/mL Vitamin D 25 OHon 07-08-2020 Vitamin D 25 [place] 12.1 ng/mL Low 30.0-100.0 [facility] Comment on above: Result Comment: Reference Range: Vitamin D status Range Deficiency <20 ng/mL Mild Deficiency 20-30 ng/mL Sufficiency 30-100 ng/mL Toxicity >100 ng/mL Performed By: #### U HCG, UAMIC #### [facility] [address] [place] [address] [phone] Card Cutter Helper: Campos Avilez MD ABO/RHon 07-07-2020 ABO/Rh Positive [place] CBC WITH AUTO DIFFERENTIALon 07-07-2020 Basophils (Bld) [#/Vol] 0.04 10*3/uL [place] Basophils/100 WBC (Bld) 0 % 0 - 2 % [place] Differential Type NOT REPORTED [place] Eosinophils (Bld) [#/Vol] 0.10 10*3/uL [place] Eosinophils/100 WBC (Bld) 1 % 1 - 4 % [place] Erythrocyte distribution width (RBC) [Ratio] 14.0 % 11.8 - 14.4 % [place] Hematocrit (Bld) [Volume fraction] 34.3 % Low 36.3 - 47.1 % [place] Hemoglobin (Bld) [Mass/Vol] 11.1 g/dL Low 11.9 - 15.1 g/dL [place] Immature granulocytes (Bld) [#/Vol] 0 % 0 [place] Immature granulocytes (Bld) [#/Vol] 0.04 10*3/uL [place] Interpretation and review of laboratory results Abnormal [place] Lymphocytes (Bld) [#/Vol] 1.77 10*3/uL [place] Lymphocytes/100 WBC (Bld) 16 % Low 25 - 45 % [place] MCH (RBC) [Entitic mass] 26.6 pg 25 - 35 pg [place] MCHC (RBC) [Mass/Vol] 32.4 g/dL 28.4 - 34.8 g/dL [place] MCV (RBC) [Entitic vol] 82.3 fL 78 - 102 fL [place] Monocytes (Bld) [#/Vol] 0.73 10*3/uL [place] Monocytes/100 WBC (Bld) 7 % 2 - 8 % [place] Platelet mean volume (Bld) [Entitic vol] 11.8 fL 8.1 - 13.5 fL [place] Platelets (Bld) [#/Vol] NOT REPORTED [place] Platelets (Bld) [#/Vol] 288 10*3/uL [place] RBC (Bld) [#/Vol] 4.17 10*6/uL 3.95 - 5.1 1 m/uL [place] RBC morphology finding Nom (Bld) NOT REPORTED [place] Segmented neutrophils/100 WBC (Bld) 75 % High 34 - 64 % [place] Segs Absolute 8.16 High [place] WBC (Bld) [#/Vol] 0.0 10*3/uL 0.0 per 10 0 WBC [place] WBC (Bld) [#/Vol] 10.8 10*3/uL [place] WBC Morphology NOT REPORTED [place] COMPREHENSIVE METABOLIC PANE Mikie 07-07-2020 Albumin [Mass/Vol] 2.3 g/dL Low 3.5 - 5.2 g/dL [place] Albumin/Globulin [Mass ratio] 0.9 {ratio} Low [place] ALP [Catalytic activity/Vol] 41 U/L 35 - 104 U/L [place] Comment on above: SPECIMEN MODERATELY HEMOLYZED, RESULTS MAY BE ADVERSELY AFFECTED ALT [Catalytic activity/Vol] 11 U/L 5 - 33 U/L [place] Comment on above: SPECIMEN MODERATELY HEMOLYZED, RESULTS MAY BE ADVERSELY AFFECTED Anion gap [Moles/Vol] 9 mmol/L 9 - 17 mmol/L [place] AST [Catalytic activity/Vol] 28 U/L <32 [place] Comment on above: SPECIMEN MODERATELY HEMOLYZED, RESULTS MAY BE ADVERSELY AFFECTED Bilirubin Ql (U) <0.10 Low 0.3 - 1.2 mg/dL [place] Bun/Cre Ratio NOT REPORTED [place] Calcium [Mass/Vol] 5.5 mg/dL Critically low 8.6 - 1 0.4 mg/dL [place] Chloride [Moles/Vol] 118 mmol/L High 98 - 10 7 mmol/L [place] CO2 [Moles/Vol] 14 mmol/L Low 20 - 31 mmol/L [place] Creatinine [Mass/Vol] 0.6 mg/dL 0.5 - 0.9 mg/dL [place] GFR NOT REPORTED >60 mL/min [place] GFR Non- Pediatric GFR requires additional information. Refer to NKDEP website for calculator. >60 mL/min [place] GFR/1.73 sq M predicted among non-blacks MDRD (S/P/Bld) [Vol rate/Area] NOT REPORTED [place] GFR/1.73 sq M predicted among non-blacks MDRD (S/P/Bld) [Vol rate/Area] [place] Comment on above: Average GFR for <20 years old not available. Chronic Kidney Disease: <60 mL/min/1.73sq m Kidney failure: <15 mL/min/1.73sq m eGFR calculated using average adult body mass. Additional eGFR calculator available at: http://www.[employer]/multiple_crcl_2012.htm Glucose [Mass/Vol] 84 mg/dL 70 - 99 mg/dL [place] Interpretation and review of laboratory results Abnormal [place] Potassium [Moles/Vol] 5.1 mmol/L 3.7 - 5.3 mmol/L [place] Comment on above: SPECIMEN MODERATELY HEMOLYZED, RESULTS MAY BE ADVERSELY AFFECTED Protein [Mass/Vol] 5.0 g/dL Low 6.4 - 8.3 g/dL [place] Sodium [Moles/Vol] 141 mmol/L 135 - 144 mmol/L [place] Urea nitrogen [Mass/Vol] 10 mg/dL 6 - 20 mg/dL [place] HCG, QUANTITATIVE, on 07-07-2020 hCG Quant <1 <5 IU/L [place] Comment on above: Non-preg premeno <=5 [...] activity/Vol] 15 U/L 13 - 60 U/L [place] Vital Signs Date Time Vital Sign Value Performing Clinician Facility 10-26-2023 03:30-0400 Hourly Rounding [facility] Comment on above: Result Comment: pt discharged off unit 10-26-2023 03:15-0400 Hourly Rounding [facility] Comment on above: Result Comment: went over discharge inst ructions. educated pt on importance of contacting primary provider with future concerns, pisking up antibiotic prescription tomorrow, and calling is symtpoms return or get worse. 10-26-2023 00:00-0400 Blood Pressure Location [facility] 10-26-2023 00:00-0400 Body temperature 98.6 [degF] [facility] 10-26-2023 00:00-0400 Diastolic blood pressure 68 mm[Hg] [facility] 10-26-2023 00:00-0400 Heart rate 101 /min [facility] 10-26-2023 00:00-0400 Hourly Rounding [facility] 10-26-2023 00:00-0400 Mean blood pressure 86 mm[Hg] [facility] 10-26-2023 00:00-0400 Respiratory rate 16 /min Fuentes Florentino [facility] 10-26-2023 00:00-0400 Systolic blood pressure 122 mm[Hg] Fuentes Florentino [facility] 07-17-2023 11:42-0500 Body weight 127.82 kg Chung [employer] Work Phone: [facility] 07-17-2023 11:42-0500 Diastolic blood pressure 70 mm[Hg] Chung Benja DO Work Phone: [facility] 07-17-2023 11:42-0500 Systolic blood pressure 118 mm[Hg] Chung Benja DO Work Phone: [facility] 10-19-2021 01:12-0400 Diastolic blood pressure 62 mm[Hg] PHYSICIAN [facility] 10-19-2021 01:12-0400 Heart rate 89 /min PHYSICIAN [facility] 10-19-2021 01:12-0400 Respiratory rate 18 /min PHYSICIAN [facility] 10-19-2021 01:12-0400 SaO2% (BldA) [Mass fraction] 100 % PHYSICIAN [facility] 10-19-2021 01:12-0400 Systolic blood pressure 130 mm[Hg] PHYSICIAN [facility] 10-18-2021 23:10-0400 Body height 167.64 cm PHYSICIAN [facility] 10-18-2021 23:10-0400 Body mass index (BMI) [Percentile] Per age and sex 99.1 % PHYSICIAN [facility] 10-18-2021 23:10-0400 Body mass index (BMI) [Ratio] 48.2 kg/m2 PHYSICIAN [facility] 10-18-2021 23:10-0400 Body weight 135.5 kg PHYSICIAN [facility] 10-18-2021 23:08-0400 Body temperature 98.4 [degF] PHYSICIAN [facility] 07-07-2020 21:51-0500 BMI (Body Mass Index) 42.93 kg/m2 [facility] 07-07-2020 21:51-0500 Body weight 120.66 kg [facility] [place] 07-07-2020 21:51-0500 BP Diastolic 85 mm[Hg] [facility] [place] 07-07-2020 21:51-0500 BP Systolic 136 mm[Hg] [facility] [place] 07-07-2020 21:51-0500 Height 167.6 cm [facility] [place] 07-07-2020 21:51-0500 Pulse (Heart Rate) 93 /min [facility] 07-07-2020 21:51-0500 Pulse Oximetry 97 % [facility] [place] 07-07-2020 21:51-0500 Respiratory Rate 18 /min [facility] 07-07-2020 21:48-0500 Body Temperature 97.11 [degF] Lisa Land [facility], [...] 10-26-2023 End: 10-26-2023 ambulatory Fuentes Florentino [place] Start: 10-25-2023 End: 10-26-2023 OB Triage Fuentes Florentino [facility] Start: 10-07-2023 End: 10-07-2023 ambulatory CHUNG BENJA [...] Emergency department patient visit PHYSICIAN NO FAMILY Facility:[facility] Start: 10-18-2021 End: 10-19-2021 Emergency department patient visit PHYSICIAN NO FAMILY [facility] Start: 07-07-2020 End: 07-08-2020 Emergency department patient visit DAVID AQUINO [facility] Start: 07-07-2020 End: 07-08-2020 Emergency department patient [...] AM EDT Routine [facility] [address] [facility] [place] [address] Halima Cullen PA [address] [place], [place] [id number] [facility] Start: 07-17-2023 End: 07-17-2024 US for US OB VIABLILITY Imaging Routine with uncertain viability, single or unspecified fetus Expected: 07/17/2023 (Approximate), Expires: 07/17/2024 [facility] Work Phone: Comment on above: Expected: 07/17/2023 (Approximate), Expires: 07/17/2024 Start: 07-17-2023 End: 07-17-2023 Patient encounter procedure [facility] Comment on above: First trimester preg yesika Start: 07-03-2023 End: 07-03-2024 ABO/Rh ABO/Rh Lab Routine Missed menses Expected: 07/03/2023 (Approximate), Expires: 07/03/2024 [facility] Comment on above: Expected: 07/03/2023 (Approximate), Expires: 07/03/2024 Start: 07-03-2023 End: 07-03-2024 Blood type and Indirect antibody screen panel - Blood Type and screen Lab Routine Missed menses Expected: 07/03/2023 (Approximate), Expires: 07/03/2024 [facility] Work Phone: Comment on above: Expected: 07/03/2023 (Approximate), Expires: 07/03/2024 Start: 07-03-2023 End: 07-03-2024 US Pelvis transvaginal US OB transvaginal Imaging Routine Missed menses Expected: 07/03/2023 (Approximate), Expires: 07/03/2024 [facility] Comment on above: Expected: 07/03/2023 (Approximate), Expires: 07/03/2024 Start: 02-01-2020 Influenza vaccination Flu vaccine (# 1) [place], [place] Start: 2018 Meningococcal (ACWY) vaccine (1 - 2-dose series) Meningococcal (ACWY) vaccine (1 - 2-dose series) [place] Start: 2018 Screening for Chlamy nancy trachomatis Chlamydia screen [place], [place] Start: 2017 HIV screening HIV screen [place], [place] Start: 2013 HPV vaccine (1 - 2-d ose series) HPV vaccine (1 - 2-dose series) [place] Start: 2009 DTaP/Tdap/Td vaccine (1 - Tdap) DTaP/Tdap/Td vaccine (1 - Tdap) [place] Start: 2003 Hepatitis A vaccine (1 of 2 - 2-dose series) Hepatitis A vaccine (1 of 2 - 2-dose series) [place] Start: 2003 Measles,Mumps,Rubell a (MMR) vaccine (1 of 2 - Standard series) Measles,Mumps,Rubella (MMR) vaccine (1 of 2 - Standard series) [place] Start: 2003 Varicella vaccine (1 of 2 - 2-dose childhood series) Varicella vaccine (1 of 2 - 2-dose childhood series) [place] Start: 2002 Hepatitis B vaccine (1 of 3 - 3-dose primary series) Hepatitis B vaccine (1 of 3 - 3-dose primary series) [place] Start: 2002 Hepatitis C screening Hepatitis C sc reen [place], [place] Bacteria identified in Urine by Culture Urine culture Microbiology Routine Missed menses Ordered: 07/03/2023 [facility] Comment on above: Ordered: 07/03/2023 End: 07-07-2020 C.trachomatis N.gonorrhoeae DNA C.trachomatis N.gonorrhoeae DNA Microbiology STAT One Time for 1 Occurrences starting 07/07/2020 until 07/07/2020 [place] Comment on above: One Time for 1 Occur rences starting 07/07/2020 until 07/07/2020 C.trachomatis N.gonorrhoeae DNA C.trachomatis N.gonorrhoeae DNA Microbiology Stat Sunquest Label print 07/07/2020 11:20 PM EST [place] End: 07-08-2020 Calcium, Ionized Calcium, Ionized Lab STAT One Time for 1 Occurrences starting 07/08/2020 until 07/08/2020 [place] Comment on above: One Time for 1 Occur rences starting 07/08/2020 until 07/08/2020 CBC W Auto Different ial panel - Blood CBC and differential Lab Routine Missed menses Ordered: 07/03/2023 [facility] Comment on above: Ordered: 07/03/2023 End: 07-07-2020 Culture, Urine Culture, Urine Microbiology STAT One Time for 1 Occurrences starting 07/07/2020 until 07/07/2020 [facility] Comment on above: One Time for 1 Occur rences starting 07/07/2020 until 07/07/2020 Culture, Urine Culture, Urine Microbiology Stat Sunquest Label print 07/07/2020 10:56 PM [facility]I [facility] Hemoglobin A1c measurement Hemoglobin A1c Lab Routine Missed menses Ordered: 07/03/2023 [facility] Comment on above: Ordered: 07/03/2023 Hepatitis B virus surface Ag [Presence] in Serum or Plasma by Immunoassay Hepatitis B surface antigen Lab Routine Missed menses Ordered: 07/03/2023 [facility] Comment on above: Ordered: 07/03/2023 Hepatitis C virus Ab [Presence] in Serum or Plasma by Immunoassay Hepatitis C antibody Lab Routine Missed menses Ordered: 07/03/2023 [facility] Comment on above: Ordered: 07/03/2023 HIV-1/HIV-2 antigen/antibody combination immunoassay HIV-1 and HIV-2 antibodies Lab Routine Missed menses Ordered: 07/03/2023 [facility] Comment on above: Ordered: 07/03/2023 Patient Education Common Breast Problems Pelvic Pain ED [facility] Work Phone: Patient referral [facility] Work Phone: Reagin Ab [Presence] in Serum by RPR RPR Lab Routine Missed menses Ordered: 07/03/2023 [facility] Comment on above: Ordered: 07/03/2023 Rubella antibody, IgG Rubella an tibody, IgG Lab Routine Missed menses Ordered: 07/03/2023 [facility] Comment on above: Ordered: 07/03/2023 End: 07-07-2020 US DUP ABD PEL RETRO SCROT LIMITED US DUP ABD PEL RETRO SCROT LIMITED Imaging STAT Once for 1 Occurrences starting 07/07/2020 until 07/07/2020 [facility] Comment on above: Once for 1 Occurrenc es starting 07/07/2020 until 07/07/2020 US DUP ABD PEL RETRO SCROT LIMITED US DUP ABD PEL RETRO SCROT LIMITED Imaging STAT 07/08/2020 12:13 AM [facility]I [facility] Payers Date Payer Category Payer Unknown BCBS BCBS [id number] 2023-Present [phone] [address] [place] [address] [id number] 2023 Unknown [id number] 2021 Self-pay [id number] 2002 Unknown [id number] 2002 Unknown [id number] [id number] 2002 Unknown [id number] [id number] 2002 Unknown [id number] 2.16.840.1.309212.3.579.2.727 2002 Unknown [id number] [id number] 2002 Unknown [id number] 2.16.840.1.117812.3.579.2.1259 2002 Unknown [id number] 2.16.840.1.485125.3.579.2.1259 2002 Unknown [id number] 2.16.840.1.175359.3.579.2.1259 2002 Unknown [id number] 2.16.840.1.753523.3.579.2.1259 2002 Unknown [id number] 2.16.840.1.219514.3.579.2.125 2002 Unknown [id number] 2.16.840.1.848911.3.579.2.1259 2002 Unknown [id number] 2.16.840.1.331200.3.579.2.1259 2002 Unknown [id number] 2.16.840.1.500140.3.579.2.1259 2002 Unknown [id number] 2.16.840.1.351505.3.579.2.1259 2002 Unknown [id number] 2.16.840.1.199199.3.579.2.1259 2002 Unknown [id number] 2.16.840.1.270951.3.579.2.1259 2002 Unknown [id number] [id number]59 1959 Medicaid [id number] 1959 Unknown [id number] Unknown [id number] Social History Date Type Detail Facility Start: 07-07-2020 End: 07-16-2023 Tobacco smoking status MAIS Never smoker [facility] Start: 07-07-2020 Tobacco use and exposure Never used [place], [place] Start: 2002 Sex Assigned At Not on file [place] Exposure to SARS-CoV-2 (event) Not sure [place] Start: 10-19-2021 Tobacco smoking status NHIS Smoker (finding) [facility] Start: 2002 Sex Assigned At Female F [facility] Tobacco smoking status MAIS Tobacco smoking consumption unknown [facility] Start: 05-22-2023 [facility] Start: 07-16-2023 Gender identity Not on file [facility] Start: 07-16-2023 End: 07-17-2023 Alcohol intake Lifetime non-drinker (finding) [facility] Start: 07-16-2023 History of Social function [facility] Tobacco smoking status No Smoking Status Entered [facility] Functional Status Date Assessment Result Facility 10-26-2023 Functional Status N/A [facility] Clinical Notes 07-03-2023 to 10-26-2023 Chung Yousif DO - 07/17/2023 11:10 AM Costa Kilgore LPN - 07/03/2023 1:00 PM EST Note Date & Type Note Facility 10-26-2023 Note The following Ephraim t Education Materials have been given to the patient: EducationMaterial [facility] 10-26-2023 Hospital Discharg e instructions [...] provider. Document Revised: 01/02/2022 Document Reviewed: 01/02/2022 Featurespace Patient Education 2022 [employer]. 10/26/2023 03:10:04 Vaginal Bleeding During , Second [...] help with your regular activities. Medicines Take ivmu-xot-nxsxzxn and prescription medicines only as told by [...] provider. Document Revised: 02/08/2021 Document Reviewed: 02/08/2021 [employer] Patient Education 2022 [employer]. 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 [...] your back during . General instructions Take gjbo-wdj-cgcjwvc and prescription medicines only as told by [...] care provider for managing back pain. Take wixq-oks-jzzzdpl and prescription medicines only as told by [...] provider. Document Revised: 08/01/2021 Document Reviewed: 08/01/2021 [employer] Patient Education 2022 [employer]. Follow Up Care 10/25/2023 23:39:34 With:Chung YOUSIF Address: [address] , [place] [address] Business (1) When:11/04/2023 [facility] 10-25-2023 Evaluation + Plan note Diagnostic Tests PendingUrine Culture 10/25/23 [facility] 07-17-2023 History of Presen t illness Narrative Reason for Appointment: Patient ID: Teodoro Upton is a 23 y.o. female who presents for Routine Visit Patient presents today for Return OB appointment. Current Medications: has a current medication list which includes the following prescription(s): ohcptjqr-bop-ho-fa and promethazine. Medical History: Active Ambulatory Problems [...] Chung Yousif DO documented in this encounter [facility] 07-03-2023 History of Presen [...] Evaluation note No assessment inform ation available [facility] Work Phone: Evaluation note Diagnosis Missed menses Nausea and vomiting, unspecified vomiting type documented in this encounter [facility]* Diagnosis First trimester state, incidental Vaginal bleeding in Threatened miscarriage Threatened , unspecified as to episode of care with uncertain viability, single or unspecified fetus documented in this encounter [facility] Narrative No data available for this section [facility] Additional Instructions Please follow up as we discussed so you can have your concerns further evaluated.[facility] Work Phone: Progress note No data available for this section [facility] Discharge Instructions * Instructions* Brenda Stoner DO - 07/08/2020 [facility] ED Clinic List Healthcare Providers Services Day of Week/ Hours [facility] Services [address] [facility] Pediatric Primary Care Adult Primary Care REGISTERED NURSE//Specialty Clinics Friday 8:00a 4:30p [address] Adult Medicine, Pediatrics, REGISTERED NURSE Friday 8:30a 4:30p [facility] Surgery [address] [facility] Friday 8:30a 11:00a [facility] [address] [facility] Adult Internal Medicine ([facility]) REGISTERED NURSE Clinic Pediatric Clinic Friday, Friday, , Friday 8:00a 4:30p Friday 1:00p 4:30p Friday, Friday, 8:00a 5:00p; Friday 8:00a 12:30p Friday 1p 4p Friday, Friday, , Friday 8:30a 4:15p Friday 12:30p 4:15p Health Department [facility] [address] [facility] Pediatric Primary Care Adult Primary Care OB/ Friday, Friday 8a 12p 8a 4:45p [facility] [address] [place] [address] [place] [address] # Pre & Post Adoption Counseling Support / nutrition Care Reward Incentive Program [place] Location Fri, , Fri, Fri 10:00a 4:30p Thur 10:00a 7:30p [facility] Location Friday - Friday 10a 4:30p [facility] REGISTERED NURSE [address] [facility] Adult Internal Medicine [address] [facility] Pediatrics [address] [facility] [address] Neuro / Headache [address] [facility] Friday 8:30a 5p [facility] [address] [facility] Fri, , , Fri 9:00a 4:30p Wed 1:00p 4:30p [facility] [address] [facility] Friday 8:30a 5:00p [facility] Specialty Clinics [address] [facility] [address] Burn/Plastic, ENT, GI, Orthopedics, Surgical / Trauma, Urology, Vascular Friday 8:00 4:30p Call for an appointment [facility] [address] [facility] Adult Medicine, Eye Clinic, Dental Patient must be certified homeless Under age 18 not accepted Friday 8:00 4:30p [facility] [address] [facility] OB Friday, Friday, Friday, Friday 9a 5p 9a 6p Friday (OB only) [facility] [address] [facility] OB/ Friday 11a 7p , Fri, 9a 5p Friday 8a 4p 1st Friday 9a 1p Podiatry Clinic [address] [facility] [address] Friday 8:00 4:30 p [facility] [place] Free nurse visits [place] programs Counseling Class Call or walk in [facility] [address] Various Clinics 8a 5:30p [facility] Family Medicine [facility] [address] [facility] Family Practice Friday 8a 4:30p [facility] [address] [place] [address] [address] [place] [address] Friday 8a 4:30p Friday 8a 4:30p 8a 8p Outpatient Clinics [facility] [address] [facility] Friday 9a 5p Diabetic Education Services Call for an appointment [facility] Heart Failure Clinic [address] [facility] Friday 8:30a 4p Dental Services [facility] [address] [facility] Must have source of income and must bring (2) recent check stubs to appointment By appointment only [facility] [address] [facility] Patient must be homeless, call for eligibility guidelines. Under age 18 NOT accepted Days and hours vary (Doors open at 8:30a day of week varies) Call for an appointment Miscellaneous Information [facility] Call for Help [phone] Call for an appointment H.E.L.P (Hospital Eligibility Link Program) toll free For financial assistance * Attachments The following attachments cannot be sent through Care Everywhere. * Bacterial Vaginosis (Swedish) * UTI (Urinary Tract Infection): Female (Swedish) * Vitamin D: General Info (Swedish) documented in this encounter Assessments Diagnosis BV [...] section and content) DATE CREATED AUTHOR 07/16/2020 [facility] DATE CREATED AUTHOR AUTHOR'S ORGANIZ ATION 09/07/2022 [facility] DATE CREATED AUTHOR AUTHOR'S ORGANIZ ATION 03/13/2023 [facility] DATE CREATED AUTHOR AUTHOR'S ORGANIZ ATION 10/27/2023 [facility] DATE CREATED AUTHOR AUTHOR'S ORGANIZ ATION 10/31/2023 [facility] DATE CREATED AUTHOR AUTHOR'S ORGANIZ ATION 01/23/2024 [facility] dical Specialists EPIC Care Teams [...] BE BASED ON THE PRIMARY CLINICAL RECORDS. [facility] Testif [facility]. provides no warranty or guarantee of the accuracy or completeness of information in this document.
[2024-02-02 01:50] LABS: Bilirubin Urine NEGATIVE (NEGATIVE); Blood Urine NEGATIVE (NEGATIVE); Clarity Urine CLEAR (CLEAR); Color Urine YELLOW (YELLOW); Glucose Urine UA NEGATIVE (NEGATIVE); Ketones Urine TRACE mg/dL (NEGATIVE); Leukocyte Esterase Urine SMALL (NEGATIVE); Nitrite Urine NEGATIVE (NEGATIVE); Protein Urine NEGATIVE (NEG/TRACE); Specific Gravity Urine >=1.030 (1.005-1.025); Urobilinogen Urine 0.2 EU/dL (0.2-1.0)
[2024-02-02 01:51] LABS: Urine Microscopic Indicated YES
[2024-02-02 01:57] LABS: Amnisure NEGATIVE (NEGATIVE); Internal Control Within Normal Limits
[2024-02-02 02:06] LABS: Cast Seen? NONE SEEN #/LPF (NONE SEEN); Crystals Seen? None Seen #/HPF (None Seen); Squamous Epithelial Cell Urine MANY #/LPF (NONE/RARE)
[2024-02-02 02:09] LABS: Bacteria Urine LARGE #/HPF (NONE SEEN); RBC Urine NONE SEEN #/HPF (0-2)
[2024-02-02 02:10] LABS: Mucus Urine TRACE (NONE SEEN); Urine Culture Indicated YES
[2024-02-02] MEDS: LACTATED RINGER'S SOLUTION 1,000 ML 125 ML IV (04:05)
[2024-02-02] MEDS: CEPHALEXIN 500 MG CAPSULE PO (04:14)
[2024-02-02 04:31] LABS: Basophils Percent Auto 0.2 % (0.2-2.0); Eosinophils Absolute Auto 0.1 10^3/uL (0.0-0.7); Eosinophils Percent Auto 1.1 % (0.9-7.0); Hemoglobin 11.2 g/dL (12.0-16.0); Immature Granulocytes Abs Auto 0.04 10^3/uL (0.00-0.03); Immature Granulocytes Pct Auto 0.4 % (0.0-0.5); Lymphocytes Absolute Auto 2.3 10^3/uL (1.2-3.8); Lymphocytes Percent Auto 22.2 % (20.5-60.0); Mean Corpuscular HGB Conc 32.9 g/dL (29.9-35.2); Mean Corpuscular Hemoglobin 27.5 pg (26.7-34.0); Mean Corpuscular Volume 83.5 fL (81.0-99.0); Mean Platelet Volume 11.9 fL (9.5-13.5); Monocytes Absolute Auto 0.7 10^3/uL (0.3-0.8); Monocytes Percent Auto 7.3 % (1.7-12.0); Neutrophils Percent Auto 68.8 % (43.0-75.0); Platelet Count 366 10^3/uL (150-450); Red Blood Count 4.07 10^6/uL (4.20-5.40); Red Cell Distribution Width 14.3 % (11.0-15.0); White Blood Count 10.2 10^3/uL (4.0-11.0)
[2024-02-02 05:39] LABS: Amphetamine Screen Urine NEGATIVE (NEGATIVE); Barbiturates Screen Urine NEGATIVE (NEGATIVE); Benzodiazepines Screen Urine NEGATIVE (NEGATIVE); Buprenorphine Screen Urine NEGATIVE (NEGATIVE); Cannabinoid Screen Urine NEGATIVE (NEGATIVE); Cocaine Screen Urine NEGATIVE (NEGATIVE); Methadone Screen Urine NEGATIVE (NEGATIVE); Methamphetamines Screen Urine NEGATIVE (NEGATIVE); Opiate Screen Urine NEGATIVE (NEGATIVE); Oxycodone Screen Urine NEGATIVE (NEGATIVE); Phencyclidine Screen Urine NEGATIVE (NEGATIVE); Tricyclic Antidepressant Urine NEGATIVE (NEGATIVE)
--- NOTE | 2024-02-02 06:44 | PM.OBHP ---
OB - H&P: HPI History of Present Illness Chief complaint: POSS FLUID LEAKING : 1 Para: 2 Gestational age based on last menstrual period: 38.4 Narrative: CAME IN WITH COMPLAINT OF POSSIBLE LEAKAGE OF FLUID. SROM WAS RULED OUT. HOWEVER, FHR WAS CAT II WITH DECREASED VARIABILITY. TOX SCREEN NEG. SMALL KETONES. GIVE FLUID BOLUS WITH D5W AND SCALP STIM BY MOVING LOWER UTERINE SEGMENT HEAD BALLOTTABLE. THERE WAS AN ACCEL WITH STIMULATION. PATIENT REPORTS BABY IS MOVING. A BPP ON FRIDAY WAS 01/07. PRESENTLY THE CERVIX IS LONG, THICK AND CLOSED, VERTEX NOT ENGAGED. THERE ARE NO CONTRACTIONS. History of Present Dating criteria: LMP confirmed by 2nd trimester US Ultrasounds: normal 1st trimester US and normal mid trimester US complications comment: INCREASED BMI, POLYHYDRAMNIOS, FREQUENT UTI'S Medical complications OB: none Labs Narrative: SEE OB CHART Review of Systems ROS Status of ROS: 10 or more systems reviewed and unremarkable except as noted in history and below Meds Home Medications and Allergies Home Medications ?Medication ?Instructions ?Recorded ?Confirmed ?Type ondansetron HCl 4 mg tablet 4 mg PO Q6H PRN nausea and vomiting 07/25/23 01/23/24 History promethazine 12.5 mg tablet 12.5 mg PO Q6H PRN nausea and 07/25/23 01/23/24 History vomiting Allergies Allergy/AdvReac Type Severity Reaction Status Date / Time No Known Drug Allergies Allergy Verified 03/26/23 11:41 Exam Narrative Exam Narrative: BABY MOVING, DENIES CONTRACTIONS Constitutional Vital Signs, click to edit/add: Last Vital Signs Pulse 102 H 02/02/24 01:37 BP 119/72 02/02/24 01:37 Documenting provider has reviewed patient's vital signs: yes Common normals: no apparent distress, oriented x3, alert and well nourished General appearance: cooperative, comfortable, well kempt and well developed Nutritional appearance: obese Orientation/consciousness: Yes awake, Yes oriented to person, Yes oriented to place and Yes oriented to time HENMT Common normals: normocephalic and head/scalp atraumatic Eye Pupil: PERRL and accommodation reflex normal Neck & C-Spine Common normals: full ROM and supple Respiratory Common normals: normal respiratory effort Cardio Common normals: regular rate and regular rhythm GI Common normals: Normal to inspection, nondistended, normoactive bowel sounds present, soft to palpation and non-tender Common normals: no CVA tenderness Back & Pelvis Common normals: no thoracic nor lumbar tenderness Extremity Common normals: normal to inspection, full ROM and no calf tenderness Neuro Common normals: oriented x3, CN's II-XII intact bilaterally, moves all extremities, no focal motor deficits and no sensory deficits noted Psych Common normals: mental status grossly normal, thought process normal, cooperative and affect normal Results Labs Labs: Short CBC 02/02/24 Range/Units 04:15 WBC 10.2 (4.0-11.0) 10^3/uL Hgb 11.2 L (12.0-16.0) g/dL Hct 34.0 L (36.0-48.0) % Plt Count 366 (150-450) 10^3/uL Urine 02/02/24 Range/Units 01:30 Urine Color Yellow (YELLOW) Urine Clarity Clear (CLEAR) Urine pH 6.0 (5.0-9.0) Ur Specific [place] >=1.030 A (1.005-1.025) Urine Protein Negative (NEG/TRACE) mg/dL Urine Glucose (UA) Negative (NEGATIVE) mg/dL OB - A/P Assessment and Plan (1) Category II heart rate tracing during maternal care in third trimester: Assessment and Plan: CATEGORY B SECTION CALLED Plan PROCEED TO PRIMARY LTCS FOR CATEGORY II FHR TRACING Urinary Catheter Management Urinary Catheter Management 2-way Urethral: Cath placed during this visit: no Urethral: Cath placed during this visit: yes Urethral indwelling: Yes Reason for continuing: surgical procedure Insertion date: 02/02/24
[2024-02-02] MEDS: METOCLOPRAMIDE HCL 10 MG/2 ML VIAL IVP (07:20)
[2024-02-02] MEDS: CEFAZOLIN SODIUM/DEXTROSE,ISO 2 GM/50 ML PIGGYBACK IV ×2 (07:20→13:51)
[2024-02-02] MEDS: CITRIC ACID/SODIUM CITRATE 30 ML SOLUTION ORACIT SHOHL'S SOLN PO (07:20)
[2024-02-02] MEDS: 0.9 % SODIUM CHLORIDE 1,000 ML 1000 ML IV ×2 (07:20→09:39)
[2024-02-02] MEDS: FAMOTIDINE/PF 20 MG/2 ML VIAL IV (07:20)
[2024-02-02] MEDS: LACTATED RINGER'S SOLUTION 1,000 ML 50 ML IV ×2 (08:42→08:43)
--- NOTE | 2024-02-02 09:02 | PM.OBPRCCS ---
Procedure Pre-op/Post-op diagnoses: Pre-Op/Post-Op Diagnoses Operation Date: 02/02/24 08:00 <No data on this case meets the specified criteria> Procedure: Procedures Operation Date: 02/02/24 08:00 Actual Procedure Side Surgeon p Not Applicable Brittany Fitzgerald MD Estimated blood loss (mL): 300 Disposition: PACU Anesthesia type: Spinal Complications: none Narrative: CLASS B PRIMARY LOW TRANSVERSE CS PREOP DX: NONREASURRING HEART TRACING DR. FITZGERALD TAPER OPERATOR EBL 300 FINDNGS VIABLE FEMALE 9 POUNDS 12 OUNCES APGARS 7 AND 9 CONSENT SIGNED, INDICATION FOR CLASS B PRIMARY LTCS EXPLAINED WITH STATED UNDERSTANDING. SPINAL ANESTHETIC ADMINISTERED IN OR WITHOUT COMPLICATION. PT POSITIONED, FHT OBTAINED AT 169, PREPPED AND DRAPED. ANESTHETIC LEVEL ADEQUATE. PFANNENSTIEL SKIN INCISION MADE 2 FB ABOVE PUBIC BONE. INCISION CARRIED DOWN TO FASCIA. FASCIA NICKED IN MIDLINE AND THAT INCISION EXTENDED LATERALLY TO FULL EXTENT OF SKIN INCISION. SUPERIOR/INFEROR BORDERS OF FASCIA DISCECTED FROM MUSCLE WITH CUTTING CURRENT ON BOVIE AND BLUNT DISSECTION. RECTUS ABDOMINIS , PERITONEUM PICKED UP WITH HEMOSTAT AND BLUNTLY ENTERED WITH FINGER. PERITONEAL OPENING WIDENED, BLADDER BLADE PLACED. LOWER UTERINE SEGMENT INCISED AFTER PALPATING HEAD IN VERTEX. THIS INCISION WAS MANUALLY WIDENED. THE RIGHT HAND OF SURGEON CUPPED AROUND VERTEX, TWO NUCHAL CORDS EASILY REDUCED, VACUUM CUP REQUIRED TO DELIVER HEAD DUE TO MATERNAL DYSTOCIA AND SIZE OF HEAD. SHOULDERS AND TORSO THEN WERE DELIVERED REVEALING CRYING FEMALE BABY. BABY HANDED TO DR. VILLARREAL AND TEAM FOR ASSESSMENT AND CARE. LOWER UTERINE HYSTEROTOMY CLOSED IN SINGLE LAYER OF 1-0 VICRYL LOCKING STITCH. PELVIC IRRIGATED. FASCIA CLOSED WITH 1-0 VICRYL SIMPLE RUNNING STITCH. SUBCU FAT CLOSED WITH 3-0 VICRYL SIMPLE RUNNING STITCH, SKIN CLOSED WITH 4-0 MONOCRYL SUBCUTICULAR STITCH. LAP SPONGE, NEEDLE COUNT AND INSTRUMENT COUNT CORRECT TIMES TWO. STERILE DRESSING APPLIED AND PATIENT TAKEN TO PACU FOR RECOVERY IN HEMODYNAMICALLY STABLE CONDITION. heart rate - 1 minute: 100 bpm or Greater (APGARS WERE 7 AND 9)
[2024-02-02] MEDS: OXYTOCIN/0.9 % SODIUM CHLORIDE 20 UNITS/1,000 ML PLAST..BAG 125 UNIT IV (11:33)
[2024-02-02] MEDS: KETOROLAC TROMETHAMINE 30 MG/ML VIAL IVP ×2 (13:52→19:57)
[2024-02-02] MEDS: ACETAMINOPHEN 500 MG TABLET 1000 MG PO ×2 (16:47→23:49)
[2024-02-02] MEDS: ENOXAPARIN SODIUM 40 MG/0.4 ML SYRINGE SUBQ (19:57)
[2024-02-03] MEDS: KETOROLAC TROMETHAMINE 30 MG/ML VIAL IVP (02:20)
[2024-02-03 04:48] VITALS: BP 116/55; PULSE 69
[2024-02-03 07:46] VITALS: BP 115/56; PULSE 85
[2024-02-03 07:48] LABS: Basophils Percent Auto 0.1 % (0.2-2.0); Hematocrit 26.8 % (36.0-48.0); Hemoglobin 8.8 g/dL (12.0-16.0); Immature Granulocytes Pct Auto 0.7 % (0.0-0.5); Lymphocytes Absolute Auto 1.4 10^3/uL (1.2-3.8); Lymphocytes Percent Auto 9.7 % (20.5-60.0); Mean Corpuscular HGB Conc 32.8 g/dL (29.9-35.2); Mean Corpuscular Hemoglobin 27.8 pg (26.7-34.0); Mean Corpuscular Volume 84.5 fL (81.0-99.0); Mean Platelet Volume 11.3 fL (9.5-13.5); Monocytes Absolute Auto 1.4 10^3/uL (0.3-0.8); Monocytes Percent Auto 9.1 % (1.7-12.0); Neutrophils Percent Auto 80.4 % (43.0-75.0); Platelet Count 275 10^3/uL (150-450); Red Blood Count 3.17 10^6/uL (4.20-5.40); White Blood Count 14.9 10^3/uL (4.0-11.0)
--- NOTE | 2024-02-03 07:49 | PM.OBPN ---
OB - PN: Subj Subjective Patient comments: no complaints and pain well controlled [place] status: doing well Exam Constitutional Vital Signs, click to edit/add: Last Vital Signs Temp 99.1 F 02/02/24 16:45 Pulse 85 02/03/24 07:46 Resp 14 02/03/24 04:47 BP 115/56 02/03/24 07:46 Pulse Ox 98 02/02/24 11:15 O2 Del Method Room Air 02/03/24 04:47 Documenting provider has reviewed patient's vital signs: yes Common normals: no apparent distress Respiratory Common normals: normal respiratory effort and clear to auscultation bilaterally Cardio Common normals: regular rate and regular rhythm GI Common normals: Normal to inspection, nondistended, normoactive bowel sounds present Extremity Common normals: no calf tenderness Urinary Catheter Management Urinary Catheter Management 2-way Urethral: Cath placed during this visit: yes, but has since been removed by the nurse Removal date: 02/02/24 Removal time: 16:30 Urethral: Cath placed during this visit: yes, but has since been removed by the nurse Urethral indwelling: Yes Insertion date: 02/02/24 Insertion time: 07:50 Removal date: 02/02/24 Removal time: 16:30 OB - PN: A/P Assessment and Plan (1) Category II heart rate tracing during maternal care in third trimester: Plan - day: 1 Plan: routine postop care Time Spent with Patient Time: Total time spent is greater than 50% in coordination of care (as documented) at patient's floor/unit and/or counseling patient: Total time spent with greater than 50% in coordination of care (as documented) at patient's floor/unit and/or counseling patient: less than 15 minutes
[2024-02-03] MEDS: IBUPROFEN 400 MG TABLET 800 MG PO ×3 (07:52→20:42)
[2024-02-03] MEDS: ACETAMINOPHEN 500 MG TABLET 1000 MG PO ×2 (07:52→16:24)
[2024-02-03 08:00] VITALS: TEMP 37.1
[2024-02-03] MEDS: SIMETHICONE 80 MG TAB.CHEW PO (13:04)
[2024-02-03] MEDS: DOCUSATE SODIUM 100 MG CAPSULE PO ×2 (13:06→20:43)
[2024-02-03 16:37] VITALS: TEMP 36.6
[2024-02-03] MEDS: OXYCODONE HCL 5 MG TABLET PO (20:43)
[2024-02-03] MEDS: ENOXAPARIN SODIUM 40 MG/0.4 ML SYRINGE SUBQ (20:43)
[2024-02-04 00:24] VITALS: BP 116/54; PULSE 93; TEMP 36.6
[2024-02-04] MEDS: ACETAMINOPHEN 500 MG TABLET 1000 MG PO (04:24)
[2024-02-04] MEDS: IBUPROFEN 400 MG TABLET 800 MG PO ×2 (05:36→11:15)
--- NOTE | 2024-02-04 07:56 | P.OBPN_ITS ---
OB - PN: Subj Subjective Patient comments: no complaints and pain well controlled [place] status: doing well Exam Constitutional Vital Signs, click to edit/add: Last Vital Signs Temp 97.9 F 02/04/24 00:24 Pulse 93 H 02/04/24 00:24 Resp 18 02/04/24 00:24 BP 116/54 02/04/24 00:24 Pulse Ox 98 02/02/24 11:15 O2 Del Method Room Air 02/03/24 04:47 Documenting provider has reviewed patient's vital signs: yes Common normals: no apparent distress Respiratory Common normals: normal respiratory effort and clear to auscultation bilaterally Cardio Common normals: regular rate and regular rhythm GI Common normals: Normal to inspection, nondistended, normoactive bowel sounds present Extremity Common normals: no calf tenderness Urinary Catheter Management Urinary Catheter Management 2-way Urethral: Cath placed during this visit: yes, but has since been removed by the nurse Removal date: 02/02/24 Removal time: 16:30 Urethral: Cath placed during this visit: yes, but has since been removed by the nurse Urethral indwelling: Yes Insertion date: 02/02/24 Insertion time: 07:50 Removal date: 02/02/24 Removal time: 16:30 OB - PN: A/P Assessment and Plan (1) Category II heart rate tracing during maternal care in third trime ster: Plan - day: 2 Plan: routine postop care, discharge home and other (fu 1wk) Time Spent with Patient Time: Total time spent is greater than 50% in coordination of care (as documented) at patient's floor/unit and/or counseling patient: Total time spent with greater than 50% in coordination of care (as documented) at patient's floor/unit and/or counseling patient: less than 15 minutes
[2024-02-04 08:30] VITALS: TEMP 36.8
[2024-02-04] MEDS: DOCUSATE SODIUM 100 MG CAPSULE PO (08:34)
--- NOTE | 2024-02-04 08:47 | W.PC.ACHO ---
Registration Status: ADM IN Primary Language: Japanese Preferred Language: Japanese Report received and care assumed at 0730. Active Medications Generic Name Dose Route Start Last Admin Trade Name Freq PRN Reason Stop Dose Admin Acetaminophen 1,000 mg 02/02/24 16:00 02/04/24 04:24 Acetaminophen 500 Mg Tablet PO 02/04/24 16:01 1,000 mg Q8H OSMAN Administration Al Hydroxide/Mg Hydroxide 2,400 mg 02/02/24 08:48 Magnesium Hydroxide 2,400 Mg/10 Ml Oral.Susp PO Q6H PRN Dyspepsia Diphtheria/Pertussis/Tetanus Vacc 0.5 ml 02/04/24 09:00 Adacel Diph,Pertuss(Acell),Tet Vac/Pf 0.5 Ml Adult Syringe IM 02/04/24 09:01 .ONCE ONE Docusate Sodium 100 mg 02/03/24 09:00 02/04/24 08:34 Docusate Sodium 100 Mg Capsule PO 100 mg BID OSMAN Administration Enoxaparin Sodium 40 mg 02/02/24 20:00 02/03/24 20:43 Enoxaparin Sodium 40 Mg/0.4 Ml Syringe SUBQ 40 mg Q24H OSMAN Administration Lactated Ringer's 1,000 mls @ 125 mls/hr 02/02/24 03:30 02/02/24 07:10 Lactated Ringers IV Infused .Q8H OSMAN Infusion Promethazine HCl 25 mg/ Sodium 51 mls @ 204 mls/hr 02/02/24 08:48 Chloride IV Q6H PRN Nausea And Vomiting Ibuprofen 800 mg 02/03/24 08:00 02/04/24 05:36 Ibuprofen 400 Mg Tablet PO 800 mg Q6H OSMAN Administration Ondansetron HCl 4 mg 02/02/24 08:48 Ondansetron Pf 4 Mg/2 Ml Vial IV Q6H PRN Nausea And Vomiting Oxycodone HCl 5 mg 02/02/24 09:58 02/03/24 20:43 Oxycodone Hcl 5 Mg Tablet PO 5 mg Q6H PRN Administration Pain Simethicone 80 mg 02/02/24 08:48 02/03/24 13:04 Simethicone 80 Mg Tab.Chew PO 80 mg QID PRN Administration Abdominal Distention Catheter Urinary Catheter Date of 02/02/24 Insertion [Urethral] Urinary Catheter Time of 07:50 Insertion [Urethral] Date Urinary Catheter Removed 02/02/24 [Urethral] Date Urinary Catheter Removed 02/02/24 [2-way Urethral] Time Urinary Catheter 16:30 Discontinued [Urethral] Time Urinary Catheter 16:30 Discontinued [2-way Urethral]
[2024-02-04 10:08] VITALS: BP 139/66; PULSE 104
[2024-02-04] MEDS: SIMETHICONE 80 MG TAB.CHEW PO (10:10)
[2024-02-04 10:35] VITALS: BP 117/62; PULSE 94
== END 2024-02-04 12:05 | disposition home or self-care (01) | DRG 540 ==
PROVIDERS: Admitting Provider Obstetrics & Gynecology; Visit Provider Obstetrics & Gynecology
PROC: 10D00Z1 Extraction of Products of Conception, Low, Open Approach (ICD-10-PCS; CPT 59514; principal; 2024-02-02 08:00)
DX: O76 Abnormality in fetal heart rate and rhythm complicating labor and delivery (principal); Z3A.38 38 weeks gestation of pregnancy; Z37.0 Single live birth; Z87.440 Personal history of urinary (tract) infections; O69.81X0 Labor and delivery complicated by cord around neck, without compression, not applicable or unspecified; O99.214 Obesity complicating childbirth; E66.01 Morbid (severe) obesity due to excess calories; O99.334 Smoking (tobacco) complicating childbirth; F17.290 Nicotine dependence, other tobacco product, uncomplicated; O26.893 Other specified pregnancy related conditions, third trimester; R82.79 Other abnormal findings on microbiological examination of urine; B96.20 Unspecified Escherichia coli [E. coli] as the cause of diseases classified elsewhere
CPT/HCPCS: 36415; 51702; 59025; 64488; 76818; 80307; 81001; 84112; 85025; 86850; 86900; 86901; 87086; 87150; 87186; 96372; 96374; 96375; 96376; J0131; J0665; J0690; J1100; J1650; J1885; J2274; J2371; J2405; J2590; J2765

== ENCOUNTER 2024-02-15 21:01 | Emergency (ER) | payer MEDICAID, SELFPAY ==
[2024-02-15 21:05] VITALS: BP 112/76; PULSE 93; O2SAT 98; BMI 49.8
--- OUTSIDE RECORDS SUMMARY | 2024-02-15 21:07 | XMS_ITS | CCD ---
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 [facility] Care Team Providers Care Manager Sales Name Role Phone Unavailable Primary Care Provider [...] Florentino Attending Unavailable Fuentes Florentino Admitting Unavailable BENJA, RAVI Attending Unavailable SUBHASH, HALIMA Attending Unavailable BENJA, RAVI Attending Unavailable BENJA, RAVI Attending Unavailable SUBHASH, HALIMA Attending Unavailable BENJA, RAVI Attending Unavailable BENJA, RAVI Attending Unavailable SUBHASH, HALIMA Attending Unavailable SUBHASH, HALIMA Attending Unavailable BENJA, RAVI Attending Unavailable BENJA, RAVI Attending Unavailable BENJA, RAVI Attending Unavailable BENJA, RAVI Attending Unavailable Allergies Allergy Classification Reported Allergen(s) Allergy Type Date of Onset Reaction(s) Facility (1 source) Latex Propensity to adverse reactions to drug 07-07-2020 [facility] [place], [place] Medications Current Medications Medication Drug [...] Refill(s) 0 Start Date: 10/26/23 Status: Ordered Rnexcnnp-Xyw-Ja-FA ( 1 + IRON PO) (4 sources) Fnpysjte-Bns-Ws-FA ( 1 + IRON PO) Take by [...] Range Facility Nursing Assessmenton 024 Nursing Assessment [id number] 2#1.00TIFF [facility] C Urineon 10-28-2023 Bacteria identified Cx [...] Locations R1: This test was performed at: [facility], [address] [place] [address], [address] [place] [address], [facility] Comment on above: Performed By: #### 2 [id number] #### [facility] [address] [place] [address] Consent for Treatmenton 10-01 Consent for Treatment [id number] #1.00TIFF [facility] Discharge Instructionson Discharge Instructions [id number] 7#1.00TIFF [facility] Inpatient Clinical Summaryon 10-26-2023 Inpatient Clinical Summary [address] [address] Clinical Summary Person Information Name: TEODORO UPTON Mary/Aram_Maicol Age: 23 Years : 2000 Sex: Female PCP: NONE, XXXX Marital Status: Single Phone: [phone] Race: or Ethnicity: Non- or Language: Honduran Visit Id: Visit Reason: 24 WEEKS BLEEDING Speciality: Acuity: Obs Enc Type: OB Triage Med Service: Obstetrics Arrival: 10/25/2023 23:36:04 Discharge: 10/26/2023 03:30:56 Dispo Type: Home (Routine DC) Address: [address] [facility] [id number] Provider Notes: Diagnosis: Problems Active (10/26/2023) Smoker [...] Referring Physician: Follow up: With: Address: When: Ravi BENJA[address] [place] [address] Business (1) In 9 days 11/04/2023 Patient Education Information: and Urinary Tract Infection; Vaginal Bleeding During , Second Trimester; Back Pain in Normal [facility] Inpatient Patient Summaryon 10-26-2023 Inpatient Patient Summary [address] [address] Patient Discharge Instructions PERSON INFORMATION Name: UPTONTEODORO Date of : 2000 Current Date: 10/26/2023 03:32:18 PHYSICIANS Admitting Physician: Mishel CHAVEZ, Fuentes Weaver Primary Care Physician: ALEXANDRIA, XXXX PCP Phone Number: Comment: Discharge Diagnosis: Condition at Discharge: TEODORO UPTON MELVINA has been given the following list of [...] test results: Follow up: With: Address: When: Ravi BENJA [address] [place] [address] Business (1) In 9 days 11/04/2023 In [...] Always wi (more content not included)... Normal [facility] Insurance Correspondenceon 0 10-26-2023 Insurance Correspondence [id number] 8#1.00TIFF Normal [facility] UA with Cult Rflxon 10-26-19 24 Bacteria Auto Ql (U) Trace Normal Trace [facility] Comment on above: Performed By: #### 4 [id number] #### [facility] [address] [place] [address] Bilirubin Ql (U) Negative Normal Negative [facility] Comment on above: Performed By: #### 4 [id number] #### [facility] [address] [place] [address] Clarity (U) Turbid Abnormal Clear [facility] Comment on above: Performed By: #### 4 [id number] #### [facility] [address] [place] [address] Color (U) Yellow Normal Yellow [facility] Comment on above: Result Comment: Micr oscopic readings are only performed on those samples that meet specific criteria set forth by [facility]. Performed By: #### 4 [id number] #### [facility] [address] [place] [address] Epithelial cells.squamous Auto (Urine sed) [#/Area] 5-8 Abnormal 0-2 [facility] Comment on above: Performed By: #### 4 [id number] #### [facility] [address] [place] [address] Glucose Ql (U) Negative Normal Negative [facility] Comment on above: Performed By: #### 4 [id number] #### [facility] [address] [place] [address] Hemoglobin Auto test strip (U) [Mass/Vol] Negative Normal Negative [facility] Comment on above: Performed By: #### 4 [id number] #### [facility] [address] [place] [address] Hyaline casts LM Ql (Urine sed) 0-3 Normal 0-3 [facility] Comment on above: Performed By: #### 4 [id number] #### [facility] [address] [place] [address] Ketones Auto test strip Ql (U) Negative Normal Negative [facility] Comment on above: Performed By: #### 4 [id number] #### [facility] [address] [place] [address] Leukocyte esterase Auto test strip Ql (U) 500 Gerald/uL Abnormal Negative [facility] Comment on above: Performed By: #### 4 [id number] #### [facility] [address] [place] [address] Mucus Auto Ql (U) Trace Normal Negative [facility] Comment on above: Performed By: #### 4 [id number] #### [facility] [address] [place] [address] Nitrite Auto test strip Ql (U) Negative Normal Negative [facility] Comment on above: Performed By: #### 4 [id number] #### [facility] [address] [place] [address] pH (U) 6.0 [pH] Invalid Interpretation Code 5.0-9.0 [facility] Comment on above: Performed By: #### 4 [id number] #### [facility] [address] [place] [address] Protein Ql (U) Trace Abnormal Negative [facility] Comment on above: Performed By: #### 4 [id number] #### [facility] [address] [place] [address] RBC Ql (U) 4-20 Abnormal 0-3 [facility] Comment on above: Performed By: #### 4 [id number] #### [facility] [address] [place] [address] Specific gravity (U) [Rel density] 1.030 Invalid Interpretation Code 1.005-1.030 [facility] Comment on above: Performed By: #### 4 [id number] #### [facility] [address] [place] [address] Urobilinogen (U) [Mass/Vol] Negative Normal Negative [facility] Comment on above: Performed By: #### 4 [id number] #### [facility] [address] [place] [address] WBC Auto (Urine sed) [#/Area] 16-25 Abnormal 0-5 [facility] Comment on above: Performed By: #### 4 [id number] #### [facility] [address] [place] [address] Type of Urine collection method Clean Catch Normal [facility] Comment on above: Performed By: #### 4 [id number] #### [facility] [address] [place] [address] URINALYSISOrdered By: SYSTEM SYSTEM on 10-25-2023 Bacteria [...] that meet specific criteria set forth by [facility]. Epithelial cells.squamous Auto (Urine sed) [#/Area] [...] PM) Invalid Interpretation Code 1.005 - 1.030 [facility] UA Auto SS Urobilinogen (U) [Mass/Vol] Negative Normal Negativemg/d L [facility] UA Auto SS WBC Auto (Urine sed) [#/Area] 16-25 graded/HPF Invalid Interpretation Code 0-5graded/HP F [facility] UA Auto SS URINALYSISOrdered By: Elijah Hernandez on 10-25-2023 UA Spec Desc Clean Catch (10/25/23 11:53 PM) Normal [facility] UA Auto SS Urinalysis macro (dipstick) panel (U)on 07-17-2023 Bilirubin, UA Negative Negative - 4(70) +++ mg/dL [facility] Blood, UA Negative Negative - 50 William/mcL [facility] Clarity, UA Clear [facility] Color, UA Yellow [facility] Glucose, UA Negative Negative - 1999(110) ++++ mg/dL [facility] Interpretation and review of laboratory results Abnormal [facility] Ketones, UA Negative Negative - 160(16) ++++ mg/dL [facility] Leukocytes, UA Positive Negative - 500+++ Gerald/mcL [facility] Nitrite, UA Negative Negative - Positive [facility] pH, UA 7.0 5 - 9 [facility] Protein, UA Negative Negative - 1999(20) ++++ mg/dL [facility] Spec Grav, UA 1.020 1 - 1.03 [facility] Urobilinogen, UA 0.2 0.2 - 12 mg/dL [facility] HCG ( test) Ql (U)o n 07-03-2023 Interpretation and review of laboratory results Abnormal [facility] Preg Test, Ur Negative [facility] Urinalysis macro (dipstick) panel (U)on 07-03-2023 Bilirubin, UA Negative Negative - 4(70) +++ mg/dL [facility] Blood, UA Negative Negative - 50 William/mcL [facility] Clarity, UA Clear [facility] Color, UA Yellow [facility] Glucose, UA Negative Negative - 1999(110) ++++ mg/dL [facility] Interpretation and review of laboratory results Normal [facility] Ketones, UA Negative Negative - 160(16) ++++ mg/dL [facility] Leukocytes, UA Negative Negative - 500+++ Gerald/mcL [facility] Nitrite, UA Negative Negative - Positive [facility] pH, UA 5.5 5 - 9 [facility] Protein, UA Negative Negative - 2000(20) ++++ mg/dL [facility] Spec Grav, UA 1.010 1 - 1.03 [facility] Urobilinogen, UA 1.0 0.2 - 12 mg/dL [facility] XR FOOT RT MIN 3 VIEWSon [...] Date: 2022-08-30 14:42 Normal [facility] CBC AUTO DIFFon 06-28-2022 BASO # 0.0 103/ul Normal 0.0-0.1 [facility] Comment on above: Performed By: #### C BC #### [facility] [address] [place] [address] Dr. Jerald Poon Basophils/100 WBC (Bld) 0.3 % Normal 0.2-2.0 [facility] Comment on above: Performed By: #### C BC #### [facility] [address] [place] [address] Dr. Jerald Poon EO # 0.1 103/ul Normal 0.0-0.7 [facility] Comment on above: Performed By: #### C BC #### [facility] [address] [place] [address] Dr. Jerald Poon Eosinophils/100 WBC (Bld) 1.1 % Normal 0.9-7.0 [facility] Comment on above: Performed By: #### C BC #### [facility] [address] [place] [address] Dr. Jerald Poon Erythrocyte distribution width (RBC) [Ratio] 14.5 % Normal 11.0-15.0 [facility] Comment on above: Performed By: #### C BC #### [facility] [address] [place] [address] Dr. Jerald Poon Hematocrit (Bld) [Volume fraction] 36.7 % Normal 36.0-48.0 [facility] Comment on above: Performed By: #### C BC #### [facility] [address] [place] [address] Dr. Jerald Poon Hemoglobin (Bld) [Mass/Vol] 13.0 g/dL Normal 12.0-16.0 [facility] Comment on above: Performed By: #### C BC #### [facility] [address] [place] [address] Dr. Jerald Poon IG # 0.04 10e3/ul Critically high 0.00-0.03 [facility] Comment on above: Performed By: #### C BC #### [facility] [address] [place] [address] Dr. Jerald Poon IG % 0.3 % Normal 0.0-0.5 [facility] Comment on above: Performed By: #### C BC #### [facility] [address] [place] [address] Dr. Jerald Poon LYMPH # 3.0 103/ul Normal 1.2-3.8 [facility] Comment on above: Performed By: #### C BC #### [facility] [address] [place] [address] Dr. Jerald Poon Lymphocytes/100 WBC (Bld) 26.2 % Normal 20.5-60.0 [facility] Comment on above: Performed By: #### C BC #### [facility] [address] [place] [address] Dr. Jerald Poon MANUAL DIFF REQ NO Normal [facility] Comment on above: Performed By: #### C BC #### [facility] [address] [address] [address] Jerald Poon MCH (RBC) [Entitic mass] 27.1 pg Normal 26.7-34.0 [facility] Comment on above: Performed By: #### C BC #### [facility] [address] [place] [address] Dr. Jerald Poon MCHC (RBC) [Mass/Vol] 35.4 g/dL Critically high 29.9-35.2 [facility] Comment on above: Performed By: #### C BC #### [facility] [address] [place] [address] Dr. Jerald Poon MCV (RBC) [Entitic vol] 76.6 fL Critically low 81.0-99.0 [facility] Comment on above: Performed By: #### C BC #### [facility] [address] [place] [address] Dr. Jerald Poon MONO # 0.8 103/ul Normal 0.3-0.8 [facility] Comment on above: Performed By: #### C BC #### [facility] [address] [place] [address] Dr. Jerald Poon Monocytes/100 WBC (Bld) 7.0 % Normal 1.7-12.0 [facility] Comment on above: Performed By: #### C BC #### [facility] [address] [place] [address] Dr. Jerald Pono NEUT # 7.5 103/ul Critically high 1.4-6.5 [facility] Comment on above: Performed By: #### C BC #### [facility] [address] [place] [address] Dr. Jerald Poon Neutrophils/100 WBC (Bld) 65.1 % Normal 43.0-75.0 [facility] Comment on above: Performed By: #### C BC #### [facility] [address] [place] [address] Dr. Jerald Poon Platelet mean volume (Bld) [Entitic vol] 10.0 fL Normal 9.5-13.5 [facility] Comment on above: Performed By: #### C BC #### [facility] [address] [place] [address] Dr. Jerald Poon PLT 387 103/ul Normal 150-450 [facility] Comment on above: Performed By: #### C BC #### [facility] [address] [place] [address] Dr. Jerald Poon RBC 4.79 106/ul Normal 4.20-5.40 [facility] Comment on above: Performed By: #### C BC #### [facility] [address] [place] [address] Dr. Jerald Poon WBC 11.6 103/ul Critically high 4.0-11.0 [facility] Comment on above: Performed By: #### C BC #### [facility] [address] [place] [address] Dr. Jerald Poon CULTURE URINEon 06-28-2022 CULTURE URINE Culture Observations: LIGHT GROWTH OF MIXED GENITAL ZACARIAS. NO POTENTIAL PATHOGENS SEEN. Normal [facility] Comment on above: Performed By: #### U RCX #### [facility] [address] [place] [address] Dr. Jerald Poon ER URINE PROFILEon 3 Bilirubin Ql (U) Negative Normal NEGATIVE [facility] Comment on above: Performed By: #### U MICRO, ERUR #### [facility] [address] [place] [address] Dr. Jerald Poon Clarity (U) CLEAR Normal CLEAR [facility] Comment on above: Performed By: #### U MICRO, ERUR #### [facility] [address] [place] [address] Dr. Jerald Poon Color (U) YELLOW Normal YELLOW [facility] Comment on above: Performed By: #### U MICRO, ERUR #### [facility] [address] [place] [address] Dr. Jerald Poon ERUAHD A micrscopic examination will be performed if indicated. Normal [facility] Comment on above: Performed By: #### U MICRO, ERUR #### [facility] [address] [address] [address] Jerald Poon Glucose Ql (U) Negative Normal NEGATIVE [facility] Comment on above: Performed By: #### U MICRO, ERUR #### [facility] [address] [place] [address] Dr. Jerald Poon Hemoglobin Ql (U) Negative Normal NEGATIVE [facility] Comment on above: Performed By: #### U MICRO, ERUR #### [facility] [address] [address] [address] Jerald Poon Ketones Ql (U) 40 mg/dl Abnormal NEGATIVE [facility] Comment on above: Performed By: #### U MICRO, ERUR #### [facility] [address] [place] [address] Dr. Jerald Poon LEUKOCYTES TRACE Abnormal NEGATIVE [facility] Comment on above: Performed By: #### U MICRO, ERUR #### [facility] [address] [place] [address] Dr. Jerald Poon Nitrite Ql (U) Negative Normal NEGATIVE [facility] Comment on above: Performed By: #### U MICRO, ERUR #### [facility] [address] [place] [address] Dr. Jerald Poon pH (U) 6.0 [pH] Normal 5-9 [facility] Comment on above: Performed By: #### U MICRO, ERUR #### [facility] [address] [place] [address] Dr. Jerald Poon SPEC GRAVITY >=1.030 Abnormal 1.005-<=1.02 5 [facility] Comment on above: Performed By: #### U MICRO, ERUR #### [facility] [address] [place] [address] Dr. Jerald Poon UA PROTEIN Negative Normal NEGATIVE/ TRACE [facility] Comment on above: Performed By: #### U MICRO, ERUR #### [facility] [address] [place] [address] Dr. Jerald Poon UR MICRO IND INDICATED Normal [facility] Comment on above: Performed By: #### U MICRO, ERUR #### [facility] [address] [place] [address] Dr. Jerald Poon Urobilinogen Qn (U) 0.2 {Lyly'U}/dL Normal 0.2 - 1. 0 [facility] Comment on above: Performed By: #### U MICRO, ERUR #### [facility] [address] [place] [address] Dr. Jerald Poon PREG QUANT HCGon 06-28-2022 HCG QUANT <1 Normal [facility] Comment on above: Performed By: #### P REGQNT #### [facility] [address] [place] [address] Dr. Jerald Poon HCG RANGE SEE BELOW Normal [facility] Comment on above: Result Comment: 5-50 0.2-1 WEEK 50-500 1-2 WEEKS 100-5,000 2-3 WEEKS 500-10,000 3-4 WEEKS 1,000-50,000 4-5 WEEKS 10,000-100,000 5-6 WEEKS 15,000-200,000 6-8 WEEKS 10,000-100,000 2-3 MONTHS Performed By: #### P REGQNT #### [facility] [address] [place] [address] Dr. Jerald Poon PROF CHEM 8 (BAS METB)on Anion gap [Moles/Vol] 14.0 mmol/L Normal [facility] Comment on above: Performed By: #### C BC #### [facility] [address] [place] [address] Dr. Jerald Poon Calcium [Mass/Vol] 9.6 mg/dL Normal 8.5-10.1 [facility] Comment on above: Performed By: #### C BC #### [facility] [address] [place] [address] Dr. Jerald Poon Chloride [Moles/Vol] 101 mmol/L Normal 98-107 [facility] Comment on above: Performed By: #### C BC #### [facility] [address] [place] [address] Dr. Jerald Poon CO2 [Moles/Vol] 25.4 mmol/L Normal 21.0-32.0 [facility] Comment on above: Performed By: #### C BC #### [facility] [address] [address] [address] Jerald Poon Creatinine [Mass/Vol] 0.92 mg/dL Normal 0.55-1.02 [facility] Comment on above: Performed By: #### C BC #### [facility] [address] [address] [address] Jerald Poon EGFR-AF SOUTH AFRICAN >60 Normal >=60 [facility] Comment on above: Performed By: #### C BC #### [facility] [address] [address] [address] Jerald Poon EGFR-NON AF SOUTH AFRICAN >60 Normal >=60 [facility] Comment on above: Performed By: #### C BC #### [facility] [address] [address] [address] Jerald Poon Glucose [Mass/Vol] 101 mg/dL Normal 74-106 [facility] Comment on above: Performed By: #### C BC #### [facility] [address] [address] [address] Jerald Poon Potassium [Moles/Vol] 3.4 mmol/L Critically low 3.5-5.1 [facility] Comment on above: Performed By: #### C BC #### [facility] [address] [address] [address] Jerald Poon Sodium [Moles/Vol] 137 mmol/L Normal 136-145 [facility] Comment on above: Performed By: #### C BC #### [facility] [address] [address] [address] Jerald Poon Urea nitrogen [Mass/Vol] 11.0 mg/dL Normal 7.0-18.0 [facility] Comment on above: Performed By: #### C BC #### [facility] [address] [address] [address] Jerald Poon Urea nitrogen/Creatinine [Mass ratio] 12.0 mg/mg Normal [facility] Comment on above: Performed By: #### C BC #### [facility] [address] [place] [address] Dr. Jerald Poon TSHon 06-28-2022 TSH 1.319 uIU/mL Normal 0.358-3.740 [facility] Comment on above: Performed By: #### C BC #### [facility] [address] [place] [address] Dr. Jerald Poon URINE MICROSCOPIC ONLYon BACTERIA SMALL Abnormal NONE SEEN [facility] Comment on above: Performed By: #### U MICRO, ERUR #### [facility] [address] [place] [address] Dr. Jerald Poon Bacteria identified Cx Nom (U) INDICATED Normal [facility] Comment on above: Performed By: #### U MICRO, ERUR #### [facility] [address] [place] [address] Dr. Jerald Poon CAST NONE SEEN Normal NONE SEEN [facility] Comment on above: Performed By: #### U MICRO, ERUR #### [facility] [address] [place] [address] Dr. Jerald Poon Crystals LM Nom (Urine sed) NONE SEEN Normal NONE SEEN [facility] Comment on above: Performed By: #### U MICRO, ERUR #### [facility] [address] [place] [address] Dr. Jerald Poon Epithelial cells LM Ql (Urine sed) FEW Abnormal NONE SEEN /RARE [facility] Comment on above: Performed By: #### U MICRO, ERUR #### [facility] [address] [place] [address] Dr. Jerald Poon MUCOUS NONE SEEN Normal NONE SEEN [facility] Comment on above: Performed By: #### U MICRO, ERUR #### [facility] [address] [place] [address] Dr. Jerald Poon RBC NONE SEEN Abnormal 0-2 [facility] Comment on above: Performed By: #### U MICRO, ERUR #### [facility] [address] [place] [address] Dr. Jerald Poon WBC 2-5 Abnormal NONE SEEN [facility] Comment on above: Performed By: #### U MICRO, ERUR #### [facility] [address] [address] [address] Jerald Poon CBC AUTO DIFFon 04-01-2022 BASO # 0.0 103/ul Normal 0.0-0.1 [facility] Comment on above: Performed By: #### C BC #### [facility] [address] [address] [address] Jerald Poon Basophils/100 WBC (Bld) 0.5 % Normal 0.2-2.0 [facility] Comment on above: Performed By: #### C BC #### [facility] [address] [address] [address] Jerald Poon EO # 0.1 103/ul Normal 0.0-0.7 [facility] Comment on above: Performed By: #### C BC #### [facility] [address] [place] [address] Dr. Jerald Poon Eosinophils/100 WBC (Bld) 1.7 % Normal 0.9-7.0 [facility] Comment on above: Performed By: #### C BC #### [facility] [address] [address] [address] Jerald Poon Erythrocyte distribution width (RBC) [Ratio] 14.2 % Normal 11.0-15.0 [facility] Comment on above: Performed By: #### C BC #### [facility] [address] [place] [address] Dr. Jerald Poon Hematocrit (Bld) [Volume fraction] 36.7 % Normal 36.0-48.0 [facility] Comment on above: Performed By: #### C BC #### [facility] [address] [address] [address] Jerald Poon Hemoglobin (Bld) [Mass/Vol] 12.1 g/dL Normal 12.0-16.0 [facility] Comment on above: Performed By: #### C BC #### [facility] [address] [address] [address] Jerald Poon IG # 0.01 10e3/ul Normal 0.00-0.03 [facility] Comment on above: Performed By: #### C BC #### [facility] [address] [place] [address] Dr. Jerald Poon IG % 0.1 % Normal 0.0-0.5 [facility] Comment on above: Performed By: #### C BC #### [facility] [address] [place] [address] Dr. Jerald Poon LYMPH # 2.3 103/ul Normal 1.2-3.8 [facility] Comment on above: Performed By: #### C BC #### [facility] [address] [place] [address] Dr. Jerald Poon Lymphocytes/100 WBC (Bld) 30.8 % Normal 20.5-60.0 [facility] Comment on above: Performed By: #### C BC #### [facility] [address] [place] [address] Dr. Jerald Poon MANUAL DIFF REQ NO Normal [facility] Comment on above: Performed By: #### C BC #### [facility] [address] [place] [address] Dr. Jerald Poon MCH (RBC) [Entitic mass] 27.3 pg Normal 26.7-34.0 [facility] Comment on above: Performed By: #### C BC #### [facility] [address] [place] [address] Dr. Jerald Poon MCHC (RBC) [Mass/Vol] 33.0 g/dL Normal 29.9-35.2 [facility] Comment on above: Performed By: #### C BC #### [facility] [address] [place] [address] Dr. Jerald Poon MCV (RBC) [Entitic vol] 82.7 fL Normal 81.0-99.0 [facility] Comment on above: Performed By: #### C BC #### [facility] [address] [place] [address] Dr. Jerald Poon MONO # 0.8 103/ul Normal 0.3-0.8 [facility] Comment on above: Performed By: #### C BC #### [facility] [address] [place] [address] Dr. Jerald Poon Monocytes/100 WBC (Bld) 10.6 % Normal 1.7-12.0 [facility] Comment on above: Performed By: #### C BC #### [facility] [address] [place] [address] Dr. Jerald Poon NEUT # 4.2 103/ul Normal 1.4-6.5 [facility] Comment on above: Performed By: #### C BC #### [facility] [address] [place] [address] Dr. Jerald Poon Neutrophils/100 WBC (Bld) 56.3 % Normal 43.0-75.0 [facility] Comment on above: Performed By: #### C BC #### [facility] [address] [place] [address] Dr. Jerald Poon Platelet mean volume (Bld) [Entitic vol] 10.2 fL Normal 9.5-13.5 [facility] Comment on above: Performed By: #### C BC #### [facility] [address] [place] [address] Dr. Jerald Poon PLT 375 103/ul Normal 150-450 [facility] Comment on above: Performed By: #### C BC #### [facility] [address] [place] [address] Dr. Jerald Poon RBC 4.44 106/ul Normal 4.20-5.40 [facility] Comment on above: Performed By: #### C BC #### [facility] [address] [place] [address] Dr. Jerald Poon WBC 7.5 103/ul Normal 4.0-11.0 [facility] Comment on above: Performed By: #### C BC #### [facility] [address] [place] [address] Dr. Jerald Poon ER URINE PROFILEon 2 Bilirubin Ql (U) Negative Normal NEGATIVE [facility] Comment on above: Performed By: #### C BC #### [facility] [address] [place] [address] Dr. Jerald Poon Clarity (U) CLEAR Normal CLEAR [facility] Comment on above: Performed By: #### C BC #### [facility] [address] [place] [address] Dr. Jerald Poon Color (U) YELLOW Normal YELLOW [facility] Comment on above: Performed By: #### C BC #### [facility] [address] [place] [address] Dr. Jerald CEBALLOS A micrscopic examination will be performed if indicated. Normal [facility] Comment on above: Performed By: #### C BC #### [facility] [address] [place] [address] Dr. Jerald Poon Glucose Ql (U) Negative Normal NEGATIVE [facility] Comment on above: Performed By: #### C BC #### [facility] [address] [place] [address] Dr. Jerald Poon Hemoglobin Ql (U) Negative Normal NEGATIVE [facility] Comment on above: Performed By: #### C BC #### [facility] [address] [place] [address] Dr. Jerald Poon Ketones Ql (U) Negative Normal NEGATIVE [facility] Comment on above: Performed By: #### C BC #### [facility] [address] [place] [address] Dr. Jerald Poon LEUKOCYTES Negative Normal NEGATIVE [facility] Comment on above: Performed By: #### C BC #### [facility] [address] [place] [address] Dr. Jerald Poon Nitrite Ql (U) Negative Normal NEGATIVE [facility] Comment on above: Performed By: #### C BC #### [facility] [address] [place] [address] Dr. Jerald Poon pH (U) 7.0 [pH] Normal 5-9 [facility] Comment on above: Performed By: #### C BC #### [facility] [address] [place] [address] Dr. Jerald Poon SPEC GRAVITY 1.025 Normal 1.005-<=1.02 5 [facility] Comment on above: Performed By: #### C BC #### [facility] [address] [place] [address] Dr. Jerald Poon UA PROTEIN Negative Normal NEGATIVE/ TRACE [facility] Comment on above: Performed By: #### C BC #### [facility] [address] [address] [address] Jerald Poon UR MICRO IND NOT INDICATED Normal [facility] Comment on above: Performed By: #### C BC #### [facility] [address] [address] [address] Jerald Poon Urobilinogen Qn (U) 1.0 {Lyly'U}/dL Normal 0.2 - 1. 0 [facility] Comment on above: Performed By: #### C BC #### [facility] [address] [place] [address] Dr. Jerald Poon PREG QUANT HCGon 04-01-2022 HCG QUANT 1 mIU/mL Normal [facility] Comment on above: Performed By: #### P REGQNT #### [facility] [address] [place] [address] Dr. Jerald Poon HCG RANGE SEE BELOW Normal [facility] Comment on above: Result Comment: 5-50 0.2-1 WEEK 50-500 1-2 WEEKS 100-5,000 2-3 WEEKS 500-10,000 3-4 WEEKS 1,000-50,000 4-5 WEEKS 10,000-100,000 5-6 WEEKS 15,000-200,000 6-8 WEEKS 10,000-100,000 2-3 MONTHS Performed By: #### P REGQNT #### [facility] [address] [place] [address] Dr. Jerald Poon PROF 14(COMP METB)on 022 Albumin [Mass/Vol] 3.6 g/dL Normal 3.4-5.0 [facility] Comment on above: Performed By: #### C MP #### [facility] [address] [place] [address] Dr. Jerald Poon Albumin/Globulin [Mass ratio] 0.8 {ratio} Normal [facility] Comment on above: Performed By: #### C MP #### [facility] [address] [address] [address] Jerald Poon ALP [Catalytic activity/Vol] 65 U/L Normal 46-116 [facility] Comment on above: Performed By: #### C MP #### [facility] [address] [address] [address] Jerald Poon ALT [Catalytic activity/Vol] 22 U/L Normal 14-59 [facility] Comment on above: Performed By: #### C MP #### [facility] [address] [address] [address] Jerald Poon Anion gap [Moles/Vol] 10.3 mmol/L Normal Th e [facility] Comment on above: Performed By: #### C MP #### [facility] [address] [address] [address] Jerald Poon AST [Catalytic activity/Vol] 14 U/L Critically low 15-37 [facility] Comment on above: Performed By: #### C MP #### [facility] [address] [address] [address] Jerald Poon Bilirubin [Mass/Vol] 0.1 mg/dL Critically low 0.2-1.0 [facility] Comment on above: Performed By: #### C MP #### [facility] [address] [address] [address] Jerald Poon Calcium [Mass/Vol] 8.6 mg/dL Normal 8.5-10.1 [facility] Comment on above: Performed By: #### C MP #### [facility] [address] [address] [address] Jerald Poon Chloride [Moles/Vol] 104 mmol/L Normal 98-107 [facility] Comment on above: Performed By: #### C MP #### [facility] [address] [address] [address] Jerald Poon CO2 [Moles/Vol] 28.1 mmol/L Normal 21.0-32.0 [facility] Comment on above: Performed By: #### C MP #### [facility] [address] [address] [address] Jerald Poon Creatinine [Mass/Vol] 0.99 mg/dL Normal 0.55-1.02 [facility] Comment on above: Performed By: #### C MP #### [facility] [address] [address] [address] Jerald Poon EGFR-AF SOUTH AFRICAN >60 Normal >=60 [facility] Comment on above: Performed By: #### C MP #### [facility] [address] [address] [address] Jerald Poon EGFR-NON AF SOUTH AFRICAN >60 Normal >=60 [facility] Comment on above: Performed By: #### C MP #### [facility] [address] [address] [address] Jerald Poon Globulin (S) [Mass/Vol] 4.5 g/dL Normal [facility] Comment on above: Performed By: #### C MP #### [facility] [address] [address] [address] Jerald Poon Glucose [Mass/Vol] 94 mg/dL Normal 74-106 [facility] Comment on above: Performed By: #### C MP #### [facility] [address] [place] [address] Dr. Jerald Poon Potassium [Moles/Vol] 3.4 mmol/L Critically low 3.5-5.1 [facility] Comment on above: Performed By: #### C MP #### [facility] [address] [address] [address] Jerald Poon Protein [Mass/Vol] 8.1 g/dL Normal 6.4-8.2 [facility] Comment on above: Performed By: #### C MP #### [facility] [address] [place] [address] Dr. Jerald Poon Sodium [Moles/Vol] 139 mmol/L Normal 136-145 [facility] Comment on above: Performed By: #### C MP #### [facility] [address] [place] [address] Dr. Jerald Poon Urea nitrogen [Mass/Vol] 8.0 mg/dL Normal 7.0-18.0 [facility] Comment on above: Performed By: #### C MP #### [facility] [address] [place], [place] [address] Dr. Jerald Poon Urea nitrogen/Creatinine [Mass ratio] 8.1 mg/mg Normal [facility] Comment on above: Performed By: #### C MP #### [facility] [address] [place], [place] [address] Dr. Jerald Poon US PELVIS TRANSVAGon 022 [...] by: LUH MANRIQUE Date: 2022-04-01 21:55 Normal [facility] Automated erythrocytes count in urine sediment (number/area)Ordered By: Anders Sesay on 10-19-2021 RBC Auto (Urine sed) [#/Area] 1-2 [HPF] [facility] Automated leukocytes count i n urine sediment (number/area)Ordered By: Anders eSsay on 10-19-2021 WBC Auto (Urine sed) [#/Area] 3-4 [HPF] [facility] Basophils Auto (Bld) [#/Vol] Ordered By: Anders Sesay on 10-19-2021 Basophils (Bld) [#/Vol] 0.1 10*3/uL 0.0-0.[address] [facility] Basophils/100 WBC Auto (Bld) Ordered By: Anders Sesay on 10-19-2021 Basophils/100 WBC (Bld) 0.6 % [facility] Bilirubin Test strip Ql (U)O rdered By: Anders Sesay on 10-19-2021 Bilirubin Ql (U) Negative Negative [facility] Blood hemoglobin measurement (mass/volume)Ordered By: Anders Sesay on 10-19-2021 Hemoglobin (Bld) [Mass/Vol] 13.2 g/dL 11.8-15.[address] [facility] Blood leukocytes automated c ount (number/volume)Ordered By: Anders Sesay on 10-19-2021 WBC (Bld) [#/Vol] 9.1 10*3/uL 4.5-11.0 [facility] Body fluid albumin measureme nt (mass/volume)Ordered By: Anders Sesay on 10-19-2021 Albumin (Body fld) [Mass/Vol] 3.8 g/dL 3.2-5.[address] [facility] Color Auto (U)Ordered By: Jason Sesay on 10-19-2021 Color (U) Yellow Yellow [facility] Creatinine and Glomerular fi ltration rate.predicted panel (S/P/Bld)Ordered By: Anders Sesay on 10-19-2021 Creatinine [Mass/Vol] 0.87 mg/dL 0.44-1.03 [facility] Eosinophils Auto (Bld) [#/Vo l]Ordered By: Anders Sesay on 10-19-2021 Eosinophils (Bld) [#/Vol] 0.1 10*3/uL 0.0-0.[address] [facility] Eosinophils/100 WBC Auto (Bl d)Ordered By: Anders Sesay on 10-19-2021 Eosinophils/100 WBC (Bld) 0.9 % [facility] Erythrocyte distribution wid th Auto (RBC) [Ratio]Ordered By: Anders Sesay on 10-19-2021 Erythrocyte distribution width (RBC) [Ratio] 16.4 % 11.9-15.[address] [facility] Estimated glomerular filtrat ion rate (GFR) non- AmericanOrdered By: Anders Sesay on 10-19-2021 GFR/1.73 sq M.predicted among non-blacks MDRD (S/P/Bld) [Vol rate/Area] > 60 mL/Min [facility] Globulin Calc (S) [Mass/Vol] Ordered By: Anders Sesay on 10-19-2021 Globulin (S) [Mass/Vol] 4.3 g/dL [facility] HCG ( test) IA.rapi d Ql (U)Ordered By: Anders Sesay on 10-19-2021 HCG ( test) Ql (U) Negative [facility] Hematocrit Auto (Bld) [Volum e fraction]Ordered By: Anders Sesay on 10-19-2021 Hematocrit (Bld) [Volume fraction] 40.2 % 34.0-46.[address] [facility] Ketones Auto test strip (U) [Mass/Vol]Ordered By: Anders Sesay on 10-19-2021 Ketones (U) [Mass/Vol] Negative Negative Fi [facility] - Hematology and Cell countsOrdered By: Anders Sesay on 10-19-2021 Nucleated RBC/100 WBC (Bld) [Ratio] 0.2 % 0-0.[address] [facility] - UrinalysisOrder ed By: Anders Sesay on 10-19-2021 Hyaline casts LM Ql (Urine sed) 0-8 [LPF] [facility] Lymphocytes Auto (Bld) [#/Vo l]Ordered By: Anders Sesay on 10-19-2021 Lymphocytes (Bld) [#/Vol] 2.4 10*3/uL 1.00-4.[address] [facility] Lymphocytes/100 WBC Auto (Bl d)Ordered By: Anders Sesay on 10-19-2021 Lymphocytes/100 WBC (Bld) 26.7 % [facility] MCH Auto (RBC) [Entitic mass ]Ordered By: Anders Sesay on 10-19-2021 MCH (RBC) [Entitic mass] 26.3 pg 24.7-34.[address] [facility] MCHC Auto (RBC) [Mass/Vol]Or dered By: Anders Sesay on 10-19-2021 MCHC (RBC) [Mass/Vol] 32.9 g/dL 32.0-35.0 [facility] MCV Auto (RBC) [Entitic vol] Ordered By: Anders Sesay on 10-19-2021 MCV (RBC) [Entitic vol] 80.1 fL 80-[address] [facility] Monocytes Auto (Bld) [#/Vol] Ordered By: Anders Sesay on 10-19-2021 Monocytes (Bld) [#/Vol] 0.7 10*3/uL 0.0-0.[address] [facility] Monocytes/100 WBC Auto (Bld) Ordered By: Anders Sesay on 10-19-2021 Monocytes/100 WBC (Bld) 7.6 % [facility] Neutrophils Auto (Bld) [#/Vo l]Ordered By: Anders Sesay on 10-19-2021 Neutrophils (Bld) [#/Vol] 5.8 10*3/uL 1.8-7.[address] [facility] Neutrophils/100 WBC Auto (Bl d)Ordered By: Anders Sesay on 10-19-2021 Neutrophils/100 WBC (Bld) 64.2 % [facility] Nitrite Test strip Ql (U)Ord ered By: Anders Sesay on 10-19-2021 Nitrite Ql (U) Negative Negative [facility] No Panel InformationOrdered By: Anders Sesay on 10-19-2021 Estimated GFR () > 60 mL/Min [facility] Comment on above: GFR estimated refere nce range: According to KDOQI guidelines, <60 ml/min/1.73m2 is sufficient to diagnose a patient with chronic kidney disease. Pharmacy Creatinine Clearance (Chem 147.[address] [facility] Platelet mean volume Auto (B ld) [Entitic vol]Ordered By: Anders Sesay on 10-19-2021 Platelet mean volume (Bld) [Entitic vol] 8.6 fL 6.3-10.[address] [facility] Platelets Auto (Bld) [#/Vol] Ordered By: Anders Sesay on 10-19-2021 Platelets (Bld) [#/Vol] 395 10*3/uL 150-[address] [facility] Protein Auto test strip (U) [Mass/Vol]Ordered By: Anders Sesay on 10-19-2021 Protein (U) [Mass/Vol] Negative Negative Fi [facility] Protein [Mass/volume] in Ser um or PlasmaOrdered By: Anders Sesay on 10-19-2021 Protein [Mass/Vol] 8.1 g/dL 6.1-7.9 [facility] RBC Auto (Bld) [#/Vol]Ordere d By: Anders Sesay on 10-19-2021 RBC (Bld) [#/Vol] 5.02 10*6/uL 3.60-5.00 [facility] Serum or plasma alanine ayoub otransferase measurement without P-5'-P (enzymatic activiOrdered By: Anders Sesay on 10-19-2021 ALT No additional P-5'-P [Catalytic activity/Vol] 20 U/L 10-[address] [facility] Serum or plasma albumin/glob ulin mass ratioOrdered By: Anders Sesay on 10-19-2021 Albumin/Globulin [Mass ratio] 0.9 {ratio} [facility] Serum or plasma alkaline cosmo sphatase measurement (enzymatic activity/volume)Ordered By: Anders Sesay on 10-19-2021 ALP [Catalytic activity/Vol] 55 U/L 32-[address] [facility] Serum or plasma aspartate am inotransferase measurement (enzymatic activity/volume)Ordered By: Anders Sesay on 10-19-2021 AST [Catalytic activity/Vol] 17 U/L 10-[address] [facility] Serum or plasma calcium joann urement (mass/volume)Ordered By: Anders Sesay on 10-19-2021 Calcium [Mass/Vol] 9.1 mg/dL 8.2-10.2 [facility] Serum or plasma chloride adan surement (moles/volume)Ordered By: Anders Sesay on 10-19-2021 Chloride [Moles/Vol] 103 mmol/L 95-114 [facility] Serum or plasma glucose joann urement (mass/volume)Ordered By: Anders Sesay on 10-19-2021 Glucose [Mass/Vol] 105 mg/dL 70-100 [facility] Comment on above: ADA recommended refe rence range Random Glucose Reference Range is dependent on time and content of last meal. Glucose of more than 200 mg/dL in a nonstressed, ambulatory subject supports the diagnosis of Diabetes Mellitus. Serum or plasma potassium me asurement (moles/volume)Ordered By: Anders Sesay on 10-19-2021 Potassium [Moles/Vol] 3.7 mmol/L 3.5-5.1 [facility] Serum or plasma sodium measu rement (moles/volume)Ordered By: Anders Sesay on 10-19-2021 Sodium [Moles/Vol] 137 mmol/L 136-146 [facility] Serum or plasma total biliru bin measurement (mass/volume)Ordered By: Anders Sesay on 10-19-2021 Bilirubin [Mass/Vol] 0.3 mg/dL 0.3-1.2 [facility] Serum or plasma total carbon dioxide measurement (moles/volume)Ordered By: Anders Sesay on 10-19-2021 CO2 [Moles/Vol] 24.2 mmol/L 22.0-30.0 [facility] Serum or plasma urea nitroge n measurement (mass/volume)Ordered By: Anders Sesay on 10-19-2021 Urea nitrogen [Mass/Vol] 7 mg/dL 9-[address] [facility] Specific gravity Auto test s trip (U) [Rel density]Ordered By: Anders Sesay on 10-19-2021 Specific gravity (U) [Rel density] 1.014 1.001-1.[address] [facility] Squamous epithelial cells de tection in urine sediment by light microscopyOrdered By: Anders Sesay on 10-19-2021 Epithelial cells.squamous LM Ql (Urine sed) 3-4 [HPF] [facility] Urine bacteria detection by automated methodOrdered By: Anders Sesay on 10-19-2021 Bacteria Auto Ql (U) 1+ None Seen [facility] Urine clarity by refractomet ry automatedOrdered By: Anders Sesay on 10-19-2021 Clarity Refractometry automated (U) Clear Clear [facility] Urine glucose measurement by automated test strip (mass/volume)Ordered By: Anders Sesay on 10-19-2021 Glucose Auto test strip (U) [Mass/Vol] Normal mg/dL Normal [facility] Urine hemoglobin detection b y automated test stripOrdered By: Anders Sesay on 10-19-2021 Hemoglobin Auto test strip Ql (U) Negative Negative [facility] Urine leukocyte esterase det ection by automated test stripOrdered By: Anders Sesay on 10-19-2021 Leukocyte esterase Auto test strip Ql (U) 1+ Negative [facility] Urobilinogen Auto test strip (U) [Mass/Vol]Ordered By: Anders Sesay on 10-19-2021 Urobilinogen (U) [Mass/Vol] Normal mg/dL Normal [facility] pH Auto test strip (U)Ordere d By: Anders Sesay on 10-19-2021 pH (U) 5.5 [pH] 5.0-9.[address] [facility] US DUP ABD PEL RETRO SCROT [...] MD 07/14/20 Edited Result - FINAL Normal [facility] US NON [...] MD 07/14/20 Edited Result - FINAL Normal [facility] Chlamydia/GC,DNA Ampon 07-10 Chlamydia Probe Negative Normal NEG [facility] Comment on [...] Performed By: #### U HCG, UAMIC #### [facility] [address] [place] [id number] [employer] Manager: Campos Avilez MD Gonorrhea Probe Negative Normal NEG [facility] Comment on [...] Performed By: #### U HCG, UAMIC #### [facility] [address] [place] [address] [employer] Program Manager: Campos Avilez MD Cult,Urineon 07-09-2020 Cult,Urine Specimen Description .CLEAN CATCH URINE Special Requests NOT REPORTED Culture ESCHERICHIA COLI >[id number] CFU/ML Report Status FINAL 07/09/2020 SUSCEPTIBILITY Organism [...] <=20 SUSCEPTIBLE Piperacillin/Tazobac her <=4 SUSCEPTIBLE Normal [facility] Comment on above: Performed By: #### U HCG, UAMIC #### [address] [address] [employer] Manager: Campos Avilez MD ABO/Rh(D)on 07-08-2020 ABO/Rh(D) Positive Normal [facility] Comment on above: Performed By: #### A [facility] #### [facility] [place] [facility] [address] [place] [address] [employer] Manager: Campos Avilez MD CBC with Diffon 07-08-2020 Abs. Basophil 0.04 k/uL Normal 0.00-0.20 [facility] Comment on above: Performed By: #### C P, CDP, COSMO, BHCG, MG, VD25, LIP #### [facility] [address] [place] [id number] [employer] Manager: Capmos Avilez MD Abs.Imm.Granulocyte 0.04 k/uL Normal 0.00-0.30 [facility] Comment on above: Performed By: #### C P, CDP, COSMO, BHCG, MG, VD25, LIP #### [facility] [address] [place] [id number] [employer] Manager: Campos Avilez MD Abs.Neutrophil (Seg) 8.16 k/uL High 1.80-8.00 [facility] Comment on above: Performed By: #### C P, CDP, COSMO, BHCG, MG, VD25, LIP #### [facility] [place] [employer] [address] [facility] [address] [facility] Reuse Program Manager: Campos Avilez MD Basophils/100 WBC (Bld) 0 % Normal 0-2 [facility] Comment on above: Performed By: #### C P, CDP, COSMO, BHCG, MG, VD25, LIP #### [facility] [employer] [address] [place] [address] Water Reuse Program Manager: Campos Avilez MD Eosinophils (Bld) [#/Vol] 0.10 10*3/uL Normal 0.00-0.44 [facility] Comment on above: Performed By: #### C P, CDP, COSMO, BHCG, MG, VD25, LIP #### [facility] [employer] [address] [place] [address] Water Reuse Program Manager: Campos Avilez MD Eosinophils/100 WBC (Bld) 1 % Normal 1-4 [facility] Comment on above: Performed By: #### C P, CDP, COSOM, BHCG, MG, VD25, LIP #### [facility] [employer] [address] [place] [address] Water Reuse Program Manager: Campos Avilez MD Erythrocyte distribution width (RBC) [Ratio] 14.0 % Normal 11.8-14.4 [facility] Comment on above: Performed By: #### C P, CDP, COSMO, BHCG, MG, VD25, LIP #### [facility] [employer] [address] [place] [address] Water Reuse Program Manager: Campos Avilez MD Hematocrit (Bld) [Volume fraction] 34.3 % Low 36.3-47.1 [facility] Comment on above: Performed By: #### C P, CDP, COSMO, BHCG, MG, VD25, LIP #### [address] [address] [employer] Reuse Program Manager: Campos Avilez MD Hemoglobin (Bld) [Mass/Vol] 11.1 g/dL Low 11.9-15.1 [facility] Comment on above: Performed By: #### C P, CDP, COSMO, BHCG, MG, VD25, LIP #### [address] [address] [employer] Reuse Program Manager: Campos Avilez MD Immature granulocytes (Bld) [#/Vol] 0 % Normal 0 [facility] Comment on above: Performed By: #### C P, CDP, COSMO, BHCG, MG, VD25, LIP #### [address] [address] Water Reuse Program Manager: Campos Avilez MD Lymphocytes (Bld) [#/Vol] 1.77 10*3/uL Normal 1.20-5.20 [facility] Comment on above: Performed By: #### C P, CDP, COSMO, BHCG, MG, VD25, LIP #### [place] [address] [employer] Reuse Program Manager: Campos Avilez MD Lymphocytes/100 WBC (Bld) 16 % Low 25-45 [facility] Comment on above: Performed By: #### C P, CDP, COSMO, BHCG, MG, VD25, LIP #### [address] [address] [employer] Reuse Program Manager: Campos Avilez MD MCH (RBC) [Entitic mass] 26.6 pg Normal 25.0-35.0 [facility] Comment on above: Performed By: #### C P, CDP, COSMO, BHCG, MG, VD25, LIP #### [address] [address] Water Reuse Program Manager: Campos Avilez MD MCHC (RBC) [Mass/Vol] 32.4 g/dL Normal 28.4-34.[address] [facility] Comment on above: Performed By: #### C P, CDP, COSMO, BHCG, MG, VD25, LIP #### [address] [address] Water Reuse Program Manager: Campos Avilez MD MCV (RBC) [Entitic vol] 82.3 fL Normal 78.0-102.0 [facility] Comment on above: Performed By: #### C P, CDP, COSMO, BHCG, MG, VD25, LIP #### [place] [address] [employer] Reuse Program Manager: Campos Avilez MD Monocytes (Bld) [#/Vol] 0.73 10*3/uL Normal 0.10-1.40 [facility] Comment on above: Performed By: #### C P, CDP, COSMO, BHCG, MG, VD25, LIP #### [place] [address] [employer] Reuse Program Manager: Campos Avilez MD Monocytes/100 WBC (Bld) 7 % Normal 2-8 [facility] Comment on above: Performed By: #### C P, CDP, COSMO, BHCG, MG, VD25, LIP #### [place] [address] [employer] Reuse Program Manager: Campos Avilez MD Neutrophil (Seg) 75 % High 34-64 [facility] Comment on above: Performed By: #### C P, CDP, COSMO, BHCG, MG, VD25, LIP #### [place] [address] [employer] Reuse Program Manager: Campos Avilez MD NRBC Automated 0.0 per 100 WBC Normal 0.0 [facility] Comment on above: Performed By: #### C P, CDP, COSMO, BHCG, MG, VD25, LIP #### [address] [address] Water Reuse Program Manager: Campos Avilez MD Platelet mean volume (Bld) [Entitic vol] 11.8 fL Normal 8.1-13.5 [facility] Comment on above: Performed By: #### C P, CDP, COSMO, BHCG, MG, VD25, LIP #### [address] [address] Water Reuse Program Manager: Campos Avilez MD Platelets (Bld) [#/Vol] 288 10*3/uL Normal 138-453 [facility] Comment on above: Performed By: #### C P, CDP, COSMO, BHCG, MG, VD25, LIP #### [address] [address] [employer] Reuse Program Manager: Campos Avilez MD RBC (Bld) [#/Vol] 4.17 10*6/uL Normal 3.95-5.11 [facility] Comment on above: Performed By: #### C P, CDP, COSMO, BHCG, MG, VD25, LIP #### [address] [address] [employer] Reuse Program Manager: Campos Avilez MD WBC (Bld) [#/Vol] 10.8 10*3/uL Normal 4.5-13.5 [facility] Comment on above: Performed By: #### C P, CDP, COSMO, BHCG, MG, VD25, LIP #### [address] [address] Water Reuse Program Manager: Campos Avilez MD Auto Diff Performed NOT REPORTED Normal [facility] Comment on above: Performed By: #### C P, CDP, COSMO, BHCG, MG, VD25, LIP #### [address] [address] Water Reuse Program Manager: Campos Avilez MD Platelets (Bld) [#/Vol] NOT REPORTED Normal [facility] Comment on above: Performed By: #### C P, CDP, COSMO, BHCG, MG, VD25, LIP #### [facility] [employer] [address] [place] [address] Water Reuse Program Manager: Campos Avilez MD RBC morphology finding Nom (Bld) NOT REPORTED Normal [facility] Comment on above: Performed By: #### C P, CDP, COSMO, BHCG, MG, VD25, LIP #### [facility] [address] [place] [address] Water Reuse Program Manager: Campos Avilez MD WBC Morphology NOT REPORTED Normal [facility] Comment on above: Performed By: #### C P, CDP, COSMO, BHCG, MG, VD25, LIP #### [address] [id number] Water Reuse Program Manager: Campos Avielz MD Calcium, Ionicon 07-08-2020 Calcium [Mass/Vol] 1.18 mmol/L Normal 1.13-1.33 [facility] Comment on above: Performed By: #### I OCAL #### [address] [address] Water Reuse Program Manager: Campos Avilez MD Calcium, Ionizedon Calcium [Mass/Vol] 1.18 mmol/L 1.13 - 1. 33 mmol/L [facility], [place] Comp Metabolic Profon 2020 (cont.) Normal [facility] Comment on above: Result Comment: Aver age GFR for <20 years old not available. Chronic Kidney Disease: <60 mL/min/1.73sq m Kidney failure: <15 mL/min/1.73sq m eGFR calculated using average adult body mass. Additional eGFR calculator available at: http://www.Citilog.OpenRoute/multiple_crcl_2012.htm Performed By: #### C P, CDP, COSMO, BHCG, MG, VD25, LIP #### [address] [address] Water Reuse Program Manager: Campos Avilez MD Albumin [Mass/Vol] 2.3 g/dL Low 3.5-5.2 [facility] Comment on above: Performed By: #### C P, CDP, COSMO, BHCG, MG, VD25, LIP #### [address] [address] Water Reuse Program Manager: Campos Avilez MD Albumin/Globulin [Mass ratio] 0.9 {ratio} Low 1.0-2.5 [facility] Comment on above: Performed By: #### C P, CDP, COSMO, BHCG, MG, VD25, LIP #### [address] [address] Water Reuse Program Manager: Campos Avilez MD Alkaline Phos 41 U/L Normal 35-104 [facility] Comment on above: Result Comment: SPEC IMEN MODERATELY HEMOLYZED, RESULTS MAY BE ADVERSELY AFFECTED Performed By: #### C P, CDP, COSMO, BHCG, MG, VD25, LIP #### [address] [address] Water Reuse Program Manager: Campos Avilez MD ALT [Catalytic activity/Vol] 11 U/L Normal 5-33 [facility] Comment on above: Result Comment: SPEC IMEN MODERATELY HEMOLYZED, RESULTS MAY BE ADVERSELY AFFECTED Performed By: #### C P, CDP, COSMO, BHCG, MG, VD25, LIP #### [address] [address] Water Reuse Program Manager: Campos Avilez MD Anion gap [Moles/Vol] 9 mmol/L Normal 9-[address] [facility] Comment on above: Performed By: #### C P, CDP, COSMO, BHCG, MG, VD25, LIP #### [address] [address] Water Reuse Program Manager: Campos Avilez MD AST [Catalytic activity/Vol] 28 U/L Normal <32 [facility] Comment on above: Result Comment: SPEC IMEN MODERATELY HEMOLYZED, RESULTS MAY BE ADVERSELY AFFECTED Performed By: #### C P, CDP, COSMO, BHCG, MG, VD25, LIP #### [address] [address] Water Reuse Program Manager: Campos Avilez MD Bilirubin Ql (U) <0.10 Low 0.3-1.2 [facility] Comment on above: Performed By: #### C P, CDP, COSMO, BHCG, MG, VD25, LIP #### [address] [address] Water Reuse Program Manager: Campos Avilez MD Calcium [Mass/Vol] 5.5 mg/dL Critically low 8.6-10.4 [facility] Comment on above: Performed By: #### C P, CDP, COSMO, BHCG, MG, VD25, LIP #### [address] [address] Water Reuse Program Manager: Campos Avilez MD Chloride [Moles/Vol] 118 mmol/L High 98-107 [facility] Comment on above: Performed By: #### C P, CDP, COSMO, BHCG, MG, VD25, LIP #### [address] [address] Water Reuse Program Manager: Campos Avilez MD CO2 [Moles/Vol] 14 mmol/L Low 20-31 [facility] Comment on above: Performed By: #### C P, CDP, COSMO, BHCG, MG, VD25, LIP #### [address] [address] Water Reuse Program Manager: Campos Avilez MD Creatinine [Mass/Vol] 0.60 mg/dL Normal 0.50-0.[address] [facility] Comment on above: Performed By: #### C P, CDP, COSMO, BHCG, MG, VD25, LIP #### [address] [address] [employer] Reuse Program Manager: Campos Avilez MD GFR,non Amer Pediatric GFR requires additional information. Refer to NKDEP website for Normal >60 [facility] Comment on above: Result Comment: calc ulator. Performed By: #### C P, CDP, COSMO, BHCG, MG, VD25, LIP #### [address] [address] Water Reuse Program Manager: Campos Avilez MD Glucose [Mass/Vol] 84 mg/dL Normal 70-99 [facility] Comment on above: Performed By: #### C P, CDP, COSMO, BHCG, MG, VD25, LIP #### [address] [address] Water Reuse Program Manager: Campos Avilez MD Potassium [Moles/Vol] 5.1 mmol/L Normal 3.7-5.[address] [facility] Comment on above: Result Comment: SPEC IMEN MODERATELY HEMOLYZED, RESULTS MAY BE ADVERSELY AFFECTED Performed By: #### C P, CDP, COSMO, BHCG, MG, VD25, LIP #### [address] [address] Water Reuse Program Manager: Campos Avilez MD Protein [Mass/Vol] 5.0 g/dL Low 6.4-8.3 [facility] Comment on above: Performed By: #### C P, CDP, COSMO, BHCG, MG, VD25, LIP #### [address] [address] Water Reuse Program Manager: Campos Avilez MD Sodium [Moles/Vol] 141 mmol/L Normal 135-144 [facility] Comment on above: Performed By: #### C P, CDP, COSMO, BHCG, MG, VD25, LIP #### [facility] [address] [place] [address] Water Reuse Program Manager: Campos Avilez MD Urea nitrogen [Mass/Vol] 10 mg/dL Normal 6-20 [facility] Comment on above: Performed By: #### C P, CDP, COSMO, BHCG, MG, VD25, LIP #### [facility] [address] [place] [address] Water Reuse Program Manager: Campos Avilez MD BUN/CRE Ratio NOT REPORTED Normal 9-20 [facility] Comment on above: Performed By: #### C P, CDP, COSMO, BHCG, MG, VD25, LIP #### [address] [address] Water Reuse Program Manager: Campos Avilez MD GFR, Amer NOT REPORTED Normal >60 [facility] Comment on above: Performed By: #### C P, CDP, COSMO, BHCG, MG, VD25, LIP #### [facility] [employer] [address] [place] [address] Water Reuse Program Manager: Campos Avilez MD Staging: NOT REPORTED Normal [facility] Comment on above: Performed By: #### C P, CDP, COSMO, BHCG, MG, VD25, LIP #### [address] [address] Water Reuse Program Manager: Campos Avilez MD HCG, ,Urineon 07-08 Beta HCG ( test) Ql (U) Negative Normal NEG [facility] Comment on [...] UAMIC #### [facility] [address] [place] [id number] Water Reuse Program Manager: Campos Avilez MD HCG, Quanton 07-08-2020 HCG, Quant <1 Normal <5 [facility] Comment on [...] CDP, COSMO, BHCG, MG, VD25, LIP #### [facility] [address] [place] [address] Water Reuse Program Manager: Campos Avilez MD Lipaseon 07-08-2020 Lipase [Catalytic activity/Vol] 15 U/L Normal 13-60 [facility] Comment on above: Performed By: #### C P, CDP, COSMO, BHCG, MG, VD25, LIP #### [facility] [address], [place] [id number] Water Reuse Program Manager: Campos Avilez MD Magnesiumon 07-08-2020 Magnesium [Mass/Vol] 1.2 mg/dL Low 1.7-2.2 [facility] Comment on above: Performed By: #### C P, CDP, COSMO, BHCG, MG, VD25, LIP #### [facility] [address] [place] [phone] Water Reuse Program Manager: Campos Avilez MD Interpretation and review of laboratory results Abnormal [place] Magnesium [Mass/Vol] 1.2 mg/dL Low 1.7 - 2 .2 mg/dL [place] Otheron 07-08-2020 Direct Exam Negative [place] , URINEon 1 Beta HCG ( test) Ql (U) Negative NEGATIVE [place] Comment on above: Specimens with hCG [...] 2.6 mg/dL 2.5 - 4 .8 mg/dL [place] Phosphorus, Inorg.on 021 Phosphorus, Inorg. 2.6 mg/dL Normal 2.5-4.8 [facility] Comment on above: Performed By: #### U HCG, UAMIC #### [facility] [address] [place] [address] Water Reuse Program Manager: Campos Avilez MD NON OB TRANSVAGINALon Elia, Mhpn Incoming Radiant Results From [employer] (acquired by [employer])/[employer] - 07/08/2020 12:31 AM EST EXAMINATION: PELVIC [...] No evidence of ovarian torsion is noted. [place], [place] Unremarkable pelvic ultrasound. No evidence of ovarian torsion is noted. [place] EXAMINATION: PELVIC ULTRASOUND 07/07/2020 TECHNIQUE: Transvaginal [...] Free Fluid: No evidence of free fluid. [facility] [place], [place] Urinalysis w/ Microon 2020 ----- Normal [facility] Comment on above: Performed By: #### U HCG, UAMIC #### [address] [address] Water Reuse Program Manager: Campos Avilez MD Acetoacetic Acid,Ur Negative Normal NEG [facility] Comment on above: Performed By: #### U HCG, UAMIC #### [address] [address] Water Reuse Program Manager: Campos Avilez MD Bacteria LM.HPF (Urine sed) [#/Area] MANY Abnormal NONE [facility] Comment on above: Performed By: #### U HCG, UAMIC #### [address] [address] Water Reuse Program Manager: Campos Avilez MD Bilirubin, SemiQt,Ur Negative Normal NEG [facility] Comment on above: Performed By: #### U HCG, UAMIC #### [address] [address] Water Reuse Program Manager: Campos Avilez MD Color (U) ORANGE Abnormal YEL [facility] Comment on above: Result Comment: INTE RPRET WITH CAUTION DUE TO INTENSE COLOR OF URINE. Performed By: #### U HCG, UAMIC #### [address] [address] Water Reuse Program Manager: Camops Avilez MD Epithelial cells LM.HPF (Urine sed) [#/Area] 0 TO 2 Normal 0-5 [facility] Comment on above: Performed By: #### U HCG, UAMIC #### [address] [address] Water Reuse Program Manager: Campos Avilez MD Glucose Ql (U) Negative Normal NEG [facility] Comment on above: Performed By: #### U HCG, UAMIC #### [address] [address] Water Reuse Program Manager: Campos Avilez MD Hemoglobin, Ur LARGE Abnormal NEG [facility] Comment on above: Performed By: #### U HCG, UAMIC #### [address] [address] Water Reuse Program Manager: Campos Avilez MD Leukocyte esterase Test strip Ql (U) MODERATE Abnormal NEG [facility] Comment on above: Performed By: #### U HCG, UAMIC #### [address] [address] Water Reuse Program Manager: Campos Avilez MD Nitrite,Ur Positive Abnormal NEG [facility] Comment on above: Performed By: #### U HCG, UAMIC #### [address] [address] Water Reuse Program Manager: Campos Avilez MD pH (U) 5.5 [pH] Normal 5.0-8.0 [facility] Comment on above: Performed By: #### U HCG, UAMIC #### [address] [address] Water Reuse Program Manager: Campos Avilez MD Protein Ql (U) 2+ Abnormal NEG [facility] Comment on above: Performed By: #### U HCG, UAMIC #### [address] [address] Water Reuse Program Manager: Campos Avilez MD RBC (U) [#/Vol] 50 TO 100 Normal 0-4 [facility] Comment on above: Result Comment: Refe rence range defined for non-centrifuged specimen. Performed By: #### U HCG, UAMIC #### [address] [address] Water Reuse Program Manager: Campos Avilez MD Specific gravity (U) [Rel density] 1.021 Normal 1.005-1.030 [facility] Comment on above: Performed By: #### U HCG, UAMIC #### [address] [address] Water Reuse Program Manager: Campos Avilez MD Turbidity TURBID Abnormal CLEAR [facility] Comment on above: Performed By: #### U HCG, UAMIC #### [address] [address] Water Reuse Program Manager: Campos Avilez MD Urobilinogen,Ur Normal Normal NORM [facility] Comment on above: Performed By: #### U HCG, UAMIC #### [address] [address] Water Reuse Program Manager: Campos Avilez MD WBC (U) [#/Vol] TOO NUMEROUS TO COUNT Normal 0-5 [facility] Comment on above: Performed By: #### U HCG, UAMIC #### [address] [address] [employer] Reuse Program Manager: Campos Avilez MD Amorphous sediment LM Ql (Urine sed) NOT REPORTED Normal NONE [facility] Comment on above: Performed By: #### U HCG, UAMIC #### [address] [address] Water Reuse Program Manager: Campos Avilez MD Casts LM.LPF (Urine sed) [#/Area] NOT REPORTED Normal 0-8 [facility] Comment on above: Performed By: #### U HCG, UAMIC #### [address] [address] Water Reuse Program Manager: Campos Avilez MD Crystals LM Nom (Urine sed) NOT REPORTED Normal [facility] Comment on above: Performed By: #### U HCG, UAMIC #### [address] [address] Water Reuse Program Manager: Campos Avilez MD Epithelial, Renal NOT REPORTED Normal 0 [facility] Comment on above: Performed By: #### U HCG, UAMIC #### [address] [address] Water Reuse Program Manager: Campos Avilez MD Mucus Strands NOT REPORTED Normal [facility] Comment on above: Performed By: #### U HCG, UAMIC #### [address] [address] [employer] Reuse Program Manager: Campos Avilez MD Other Observations NOT REPORTED Normal NREQ [facility] Comment on above: Performed By: #### U HCG, UAMIC #### [address] [address] Water Reuse Program Manager: Campos Avilez MD Trichomonas NOT REPORTED Normal [facility] Comment on above: Performed By: #### U HCG, UAMIC #### [address] [address] Water Reuse Program Manager: Campos Avilez MD Yeast LM Ql (Urine sed) NOT REPORTED Normal [facility] Comment on above: Performed By: #### U HCG, UAMIC #### [address] [address] Water Reuse Program Manager: Campos Avilez MD Urinalysis with microscopico n 07-08-2020 Amorphous, UA NOT REPORTED None [facility] [place] Bacteria, UA MANY Abnormal None [facility] [place] Bilirubin Urine Negative NEGATIVE [facility] [place] [place] Casts UA NOT REPORTED [place] Color, UA ORANGE Abnormal YELLOW [place] Comment on above: INTERPRET WITH CAUTI ON DUE TO INTENSE COLOR OF URINE. Crystals, UA NOT REPORTED None /HPF [place] Epithelial Cells UA 0 TO 2 [place] Glucose, Ur Negative NEGATIVE [place] Interpretation and review of laboratory results Abnormal [place] Ketones Ql (U) Negative NEGATIVE [place] Leukocyte esterase Test strip Ql (U) MODERATE Abnormal NEGATIVE [place] Mucus, UA NOT REPORTED None [place] Nitrite, Urine Positive Abnormal NEGATIVE [place] Other Observations UA NOT REPORTED NOT REQ. M [place] pH, UA 5.5 [place] Protein (U) [Mass/Vol] 2+ Abnormal NEGATIVE [place] RBC (U) [#/Vol] 50 TO 100 [place] Comment on above: Reference range defi sonia for non-centrifuged specimen. Renal Epithelial, UA NOT REPORTED 0 /HPF [place] Specific [place], UA 1.021 [place] Trichomonas, UA NOT REPORTED None [place] Turbidity UA TURBID Abnormal CLEAR [place] Urine Hgb LARGE Abnormal NEGATIVE [place] Urobilinogen, Urine Normal Normal [place] WBC, UA TOO NUMEROUS TO COUNT [place] Yeast, UA NOT REPORTED None [place] VAGINITIS DNA PROBEon 2020 Direct Exam Positive Abnormal [place] Direct Exam Method of testing is a DNA probe intended for detection and identification of Samantha species, Gardnerella vaginalis, and Trichomonas vaginalis nucleic acid in vaginal fluid specimens from patients with symptoms of vaginitis/vaginosis. [place] Interpretation and review of laboratory results Abnormal [place] Special Requests NOT REPORTED [place] Specimen Description .VAGINA [place] Vaginitis DNA Probeon 2020 Vaginitis DNA [...] of vaginitis/vaginosis. Report Status FINAL 07/08/2020 Normal [facility] Comment on above: Performed By: #### U HCG, UAMIC #### [facility] [address], [place] [id number] Water [employer]use Program Manager: Campos Avilez MD Vitamin D 25 Hydroxyon 07-08 Interpretation and review of laboratory results Abnormal [place] Vit D, 25-Hydroxy 12.1 ng/mL Low 30 - 100 ng/mL [place] Comment on above: Reference Range: Vitamin D status Range Deficiency <20 ng/mL Mild Deficiency 20-30 ng/mL Sufficiency 30-100 ng/mL Toxicity >100 ng/mL Vitamin D 25 OHon 07-08-2020 Vitamin D 25 [place] 12.1 ng/mL Low 30.0-100.0 [facility] Comment on above: Result Comment: Reference Range: Vitamin D status Range Deficiency <20 ng/mL Mild Deficiency 20-30 ng/mL Sufficiency 30-100 ng/mL Toxicity >100 ng/mL Performed By: #### U HCG, UAMIC #### [facility] [address], [place] [phone] Water [employer]use Program Manager: Campos Avilez MD ABO/RHon 07-07-2020 ABO/Rh Positive [place] CBC WITH AUTO DIFFERENTIALon 07-07-2020 Basophils (Bld) [#/Vol] 0.04 10*3/uL [place] Basophils/100 WBC (Bld) 0 % 0 - 2 % [place] Differential Type NOT REPORTED [place] Eosinophils (Bld) [#/Vol] 0.10 10*3/uL [place] Eosinophils/100 WBC (Bld) 1 % 1 - 4 % [place] Erythrocyte distribution width (RBC) [Ratio] 14.0 % 11.8 - 14.4 % [place] Hematocrit (Bld) [Volume fraction] 34.3 % Low 36.3 - 47.1 % [place] Hemoglobin (Bld) [Mass/Vol] 11.1 g/dL Low 11.9 - 15.1 g/dL [place] Immature granulocytes (Bld) [#/Vol] 0 % 0 [place] Immature granulocytes (Bld) [#/Vol] 0.04 10*3/uL [place] Interpretation and review of laboratory results Abnormal [place] Lymphocytes (Bld) [#/Vol] 1.77 10*3/uL [place] Lymphocytes/100 WBC (Bld) 16 % Low 25 - 45 % [place] MCH (RBC) [Entitic mass] 26.6 pg 25 - 35 pg [place] MCHC (RBC) [Mass/Vol] 32.4 g/dL 28.4 - 34.8 g/dL [place] MCV (RBC) [Entitic vol] 82.3 fL 78 - 102 fL [place] Monocytes (Bld) [#/Vol] 0.73 10*3/uL [place] Monocytes/100 WBC (Bld) 7 % 2 - 8 % [place] Platelet mean volume (Bld) [Entitic vol] 11.8 fL 8.1 - 13.5 fL [place] Platelets (Bld) [#/Vol] NOT REPORTED [place] Platelets (Bld) [#/Vol] 288 10*3/uL [place] RBC (Bld) [#/Vol] 4.17 10*6/uL 3.95 - 5.1 1 m/uL [place] RBC morphology finding Nom (Bld) NOT REPORTED [place] Segmented neutrophils/100 WBC (Bld) 75 % High 34 - 64 % [place] Segs Absolute 8.16 High [place] WBC (Bld) [#/Vol] 0.0 10*3/uL 0.0 per 10 0 WBC [place] WBC (Bld) [#/Vol] 10.8 10*3/uL [place] WBC Morphology NOT REPORTED [place] COMPREHENSIVE METABOLIC PANE Mikie 07-07-2020 Albumin [Mass/Vol] 2.3 g/dL Low 3.5 - 5.2 g/dL [place] Albumin/Globulin [Mass ratio] 0.9 {ratio} Low [place] ALP [Catalytic activity/Vol] 41 U/L 35 - 104 U/L [place] Comment on above: SPECIMEN MODERATELY HEMOLYZED, RESULTS MAY BE ADVERSELY AFFECTED ALT [Catalytic activity/Vol] 11 U/L 5 - 33 U/L [place] Comment on above: SPECIMEN MODERATELY HEMOLYZED, RESULTS MAY BE ADVERSELY AFFECTED Anion gap [Moles/Vol] 9 mmol/L 9 - 17 mmol/L [place] AST [Catalytic activity/Vol] 28 U/L <32 [place] Comment on above: SPECIMEN MODERATELY HEMOLYZED, RESULTS MAY BE ADVERSELY AFFECTED Bilirubin Ql (U) <0.10 Low 0.3 - 1.2 mg/dL [place] Bun/Cre Ratio NOT REPORTED [place] Calcium [Mass/Vol] 5.5 mg/dL Critically low 8.6 - 1 0.4 mg/dL [place] Chloride [Moles/Vol] 118 mmol/L High 98 - 10 7 mmol/L [place] CO2 [Moles/Vol] 14 mmol/L Low 20 - 31 mmol/L [place] Creatinine [Mass/Vol] 0.6 mg/dL 0.5 - 0.9 mg/dL [place] GFR NOT REPORTED >60 mL/min [place] GFR Non- Pediatric GFR requires additional information. Refer to [facility]DEP website for calculator. >60 mL/min [place] GFR/1.73 sq M predicted among non-blacks MDRD (S/P/Bld) [Vol rate/Area] NOT REPORTED [place] GFR/1.73 sq M predicted among non-blacks MDRD (S/P/Bld) [Vol rate/Area] [place] Comment on above: Average GFR for <20 years old not available. Chronic Kidney Disease: <60 mL/min/1.73sq m Kidney failure: <15 mL/min/1.73sq m eGFR calculated using average adult body mass. Additional eGFR calculator available at: http://www.Habbits/multiple_crcl_2012.htm Glucose [Mass/Vol] 84 mg/dL 70 - 99 mg/dL [place] Interpretation and review of laboratory results Abnormal [place] Potassium [Moles/Vol] 5.1 mmol/L 3.7 - 5.3 mmol/L [place] Comment on above: SPECIMEN MODERATELY HEMOLYZED, RESULTS MAY BE ADVERSELY AFFECTED Protein [Mass/Vol] 5.0 g/dL Low 6.4 - 8.3 g/dL [place] Sodium [Moles/Vol] 141 mmol/L 135 - 144 mmol/L [place] Urea nitrogen [Mass/Vol] 10 mg/dL 6 - 20 mg/dL [place] HCG, QUANTITATIVE, on 07-07-2020 hCG Quant <1 <5 IU/L [place] Comment on above: Non-preg premeno <=5 [...] activity/Vol] 15 U/L 13 - 60 U/L [place] Vital Signs Date Time Vital Sign Value Performing Clinician Facility 10-26-2023 03:30-0400 Hourly Rounding Fuentes Florentino [facility] Comment on above: Result Comment: pt discharged off unit 10-26-2023 03:15-0400 Hourly Rounding Fuentes Florentino [facility] Comment on above: Result Comment: went over discharge inst ructions. educated pt on importance of contacting primary provider with future concerns, pisking up antibiotic prescription tomorrow, and calling is symtpoms return or get worse. 10-26-2023 00:00-0400 Blood Pressure Location Fuentes Florentino [facility] 10-26-2023 00:00-0400 Body temperature 98.6 [degF] Fuentes Florentino [facility] 10-26-2023 00:00-0400 Diastolic blood pressure 68 mm[Hg] Fuentes Florentino [facility] 10-26-2023 00:00-0400 Heart rate 101 /min Fuentes Florentino [facility] 10-26-2023 00:00-0400 Hourly Rounding Fuentes Florentino [facility] 10-26-2023 00:00-0400 Mean blood pressure 86 mm[Hg] Fuentes Florentino [facility] 10-26-2023 00:00-0400 Respiratory rate 16 /min Fuentes Florentino [facility] 10-26-2023 00:00-0400 Systolic blood pressure 122 mm[Hg] Fuentes Florentino [facility] 07-17-2023 11:42-0500 Body weight 127.82 kg Ravi Benja DO Work Phone: [facility] 07-17-2023 11:42-0500 Diastolic blood pressure 70 mm[Hg] Ravi Benja DO Work Phone: [facility] 07-17-2023 11:42-0500 Systolic blood pressure 118 mm[Hg] Ravi Benja DO Work Phone: [facility] 10-19-2021 01:12-0400 Diastolic blood pressure 62 mm[Hg] PHYSICIAN [facility] 10-19-2021 01:12-0400 Heart rate 89 /min PHYSICIAN [facility] 10-19-2021 01:12-0400 Respiratory rate 18 /min PHYSICIAN [facility] 10-19-2021 01:12-0400 SaO2% (BldA) [Mass fraction] 100 % PHYSICIAN NO [facility] 10-19-2021 01:12-0400 Systolic blood pressure 130 mm[Hg] PHYSICIAN [facility] 10-18-2021 23:10-0400 Body height 167.64 cm PHYSICIAN [facility] 10-18-2021 23:10-0400 Body mass index (BMI) [Percentile] Per age and sex 99.1 % PHYSICIAN [facility] 10-18-2021 23:10-0400 Body mass index (BMI) [Ratio] 48.2 kg/m2 PHYSICIAN [facility] 10-18-2021 23:10-0400 Body weight 135.5 kg PHYSICIAN [facility] 10-18-2021 23:08-0400 Body temperature 98.4 [degF] PHYSICIAN [facility] 07-07-2020 21:51-0500 BMI (Body Mass Index) 42.93 kg/m2 Lisa Land [facility] [place] 07-07-2020 21:51-0500 Body weight 120.66 kg [facility] [place] 07-07-2020 21:51-0500 BP Diastolic 85 mm[Hg] [facility] [place] 07-07-2020 21:51-0500 BP Systolic 136 mm[Hg] [facility] [place] 07-07-2020 21:51-0500 Height 167.6 cm [facility] [place] 07-07-2020 21:51-0500 Pulse (Heart Rate) 93 /min [facility] Land [facility] [place] 07-07-2020 21:51-0500 Pulse Oximetry 97 % [facility] Land [facility] [place] 07-07-2020 21:51-0500 Respiratory Rate 18 /min [facility] [place] 07-07-2020 21:48-0500 Body Temperature 97.11 [degF] Lisa Almanza [employer] O [place], JEREMIAS Encounters Encounter Date Encounter Type Care Provider Facility Start: 02-10-2024 End: 02-10-2024 ambulatory RAVI BENJA Not Available Start: 01-28-2024 End: 01-28-2024 ambulatory RAVI BENJA Not Available Start: 01-21-2024 End: 01-21-2024 ambulatory RAVI BENJA Not Available Start: 01-14-2024 End: 01-14-2024 ambulatory RAVI BENJA Not Available Start: 12-31-2023 End: 12-31-2023 ambulatory HALIMA SUBHASH Not Available Start: 12-17-2023 End: 12-17-2023 ambulatory HALIMA SUBHASH Not Available Start: 12-03-2023 End: 12-03-2023 ambulatory RAVI BENJA Not Available Start: 11-19-2023 End: 11-19-2023 ambulatory RAVI BENJA Not Available Start: 11-04-2023 End: 11-04-2023 ambulatory HALIMA SUBHASH Not Available Start: 10-26-2023 End: 10-26-2023 ambulatory Fuentes Florentino Facility:[facility] Start: 10-25-2023 End: 10-26-2023 OB Triage Fuentes Florentino [facility] Start: 10-07-2023 End: 10-07-2023 ambulatory RAVI BENJA Not Available Start: 09-09-2023 End: 09-09-2023 ambulatory RAVI BENJA Not Available Start: 08-14-2023 End: 08-14-2023 ambulatory HALIMA SUBHASH Not Available Start: 07-17-2023 End: 07-17-2023 flow sheet Ravi Benja DO Work Phone: [facility] Comment on above: First trimester preg yesika; Vaginal bleeding in ; Threatened miscarriage; with uncertain viability, single or unspecified fetus Start: 07-17-2023 End: 07-17-2023 ambulatory RAVI BENJA Not Available Start: 07-16-2023 Chart abstracting Ravi Benja DO Work Phone: [facility] Start: 07-03-2023 End: 07-03-2023 Office outpatient visit 5 minutes [facility] Benja Nurse [facility] Comment on above: GA: 8w0d Start: 07-03-2023 End: 07-03-2023 ambulatory RAVI BENJA Not Available Start: 08-30-2022 End: 08-30-[address] COLT TAYLOR . Facility:[facility] Start: 06-28-2022 End: 06-28-[address] COLT TAYLOR . Facility:[facility] Start: 04-01-2022 End: 04-02-[address] DELON NAJERA . Facility:[facility] Start: 10-19-2021 End: 10-19-2021 Emergency department patient visit PHYSICIAN NO FAMILY Facility:[facility] Start: 10-18-2021 End: 10-19-2021 Emergency department patient visit PHYSICIAN NO [facility] Start: 07-07-2020 End: 07-08-2020 Emergency department patient visit DAVID AQUINO [facility] Start: 07-07-2020 End: 07-08-2020 Emergency department patient visit Lisa Land Work Phone: [facility] ED Comment on above: BV (bacterial vagino sis) (Primary Dx); Vaginal bleeding; Hypomagnesemia; Vitamin D deficiency; Acute cystitis with hematuria Procedures Date Procedure Procedure Detail Performing Clinician Start: 07-17-2023 Urnls dip stick/tabl et rgnt non-auto w/o micrscp Ravi Benja DO Work Phone: Start: 07-03-2023 End: 07-03-2023 Urnls dip stick/tablet rgnt non-auto w/o micrscp Ravi Benja DO Work Phone: Start: 10-19-2021 Mycology culture PHYSIC EDDI NO FAMILY Start: 10-19-2021 Trichomonas vaginali s detection PHYSICIAN NO FAMILY Start: 10-19-2021 Mycology culture PHYSIC EDDI NO FAMILY Start: 10-19-2021 Trichomonas vaginali s detection PHYSICIAN NO FAMILY Start: 07-08-2020 Calcium ionized Angela na R Land Work Phone: Start: 07-08-2020 Us transvaginal [...] Phone: Start: 07-07-2020 Assay of lipase Brianin delfino Stoner Work Phone: Start: 07-07-2020 Assay of [...] AM EDT Routine [facility] [address] [place] [id number] Halima Mills PA [address] [place] [address] [facility] Start: 07-17-2023 End: 07-17-2024 US for US OB VIABLILITY Imaging Routine with uncertain viability, single or unspecified fetus Expected: 07/17/2023 (Approximate), Expires: 07/17/2024 [facility] Work Phone: Comment on above: Expected: 07/17/2023 (Approximate), Expires: 07/17/2024 Start: 07-17-2023 End: 07-17-2023 Patient encounter procedure [facility] Comment on above: First trimester preg yesika Start: 07-03-2023 End: 07-03-2024 ABO/Rh ABO/Rh Lab Routine Missed menses Expected: 07/03/2023 (Approximate), Expires: 07/03/2024 [facility] Comment on above: Expected: 07/03/2023 (Approximate), Expires: 07/03/2024 Start: 07-03-2023 End: 07-03-2024 Blood type and Indirect antibody screen panel - Blood Type and screen Lab Routine Missed menses Expected: 07/03/2023 (Approximate), Expires: 07/03/2024 [facility] Work Phone: Comment on above: Expected: 07/03/2023 (Approximate), Expires: 07/03/2024 Start: 07-03-2023 End: 07-03-2024 US Pelvis transvaginal US OB transvaginal Imaging Routine Missed menses Expected: 07/03/2023 (Approximate), Expires: 07/03/2024 [facility] Comment on above: Expected: 07/03/2023 (Approximate), Expires: 07/03/2024 Start: 02-01-2020 Influenza vaccination Flu vaccine (# 1) [place] Start: 2018 Meningococcal (ACWY) vaccine (1 - 2-dose series) Meningococcal (ACWY) vaccine (1 - 2-dose series) [place] Start: 2018 Screening for Chlamy nancy trachomatis Chlamydia screen [place] Start: 2017 HIV screening HIV screen [place] Start: 2013 HPV vaccine (1 - 2-d ose series) HPV vaccine (1 - 2-dose series) [place] Start: 2009 DTaP/Tdap/Td vaccine (1 - Tdap) DTaP/Tdap/Td vaccine (1 - Tdap) [place] Start: 2003 Hepatitis A vaccine (1 of 2 - 2-dose series) Hepatitis A vaccine (1 of 2 - 2-dose series) [place] Start: 2003 Measles,Mumps,Rubell a (MMR) vaccine (1 of 2 - Standard series) Measles,Mumps,Rubella (MMR) vaccine (1 of 2 - Standard series) [place] Start: 2003 Varicella vaccine (1 of 2 - 2-dose childhood series) Varicella vaccine (1 of 2 - 2-dose childhood series) [place] Start: 2002 Hepatitis B vaccine (1 of 3 - 3-dose primary series) Hepatitis B vaccine (1 of 3 - 3-dose primary series) [place] Start: 2002 Hepatitis C screening Hepatitis C sc reen [place] Bacteria identified in Urine by Culture Urine culture Microbiology Routine Missed menses Ordered: 07/03/2023 [facility] Comment on above: Ordered: 07/03/2023 End: 07-07-2020 C.trachomatis N.gonorrhoeae DNA C.trachomatis N.gonorrhoeae DNA Microbiology STAT One Time for 1 Occurrences starting 07/07/2020 until 07/07/2020 [place] Comment on above: One Time for 1 Occur rences starting 07/07/2020 until 07/07/2020 C.trachomatis N.gonorrhoeae DNA C.trachomatis N.gonorrhoeae DNA Microbiology Stat [employer] Label print 07/07/2020 11:20 PM EST [place] End: 07-08-2020 Calcium, Ionized Calcium, Ionized Lab STAT One Time for 1 Occurrences starting 07/08/2020 until 07/08/2020 [place] Comment on above: One Time for 1 Occur rences starting 07/08/2020 until 07/08/2020 CBC W Auto Different ial panel - Blood CBC and differential Lab Routine Missed menses Ordered: 07/03/2023 [facility] Comment on above: Ordered: 07/03/2023 End: 07-07-2020 Culture, Urine Culture, Urine Microbiology STAT One Time for 1 Occurrences starting 07/07/2020 until 07/07/2020 [facility] [place] Comment on above: One Time for 1 Occur rences starting 07/07/2020 until 07/07/2020 Culture, Urine Culture, Urine Microbiology Stat [employer] Label print 07/07/2020 10:56 PM EST [facility] [place] Hemoglobin A1c measurement Hemoglobin A1c Lab Routine Missed menses Ordered: 07/03/2023 [facility] Comment on above: Ordered: 07/03/2023 Hepatitis B virus surface Ag [Presence] in Serum or Plasma by Immunoassay Hepatitis B surface antigen Lab Routine Missed menses Ordered: 07/03/2023 [facility] Comment on above: Ordered: 07/03/2023 Hepatitis C virus Ab [Presence] in Serum or Plasma by Immunoassay Hepatitis C antibody Lab Routine Missed menses Ordered: 07/03/2023 [facility] Comment on above: Ordered: 07/03/2023 HIV-1/HIV-2 antigen/antibody combination immunoassay HIV-1 and HIV-2 antibodies Lab Routine Missed menses Ordered: 07/03/2023 [facility] Comment on above: Ordered: 07/03/2023 Patient Education Common Breast Problems Pelvic Pain ED [facility] Work Phone: Patient referral [facility] Work Phone: Reagin Ab [Presence] in Serum by RPR RPR Lab Routine Missed menses Ordered: 07/03/2023 [facility] Comment on above: Ordered: 07/03/2023 Rubella antibody, IgG Rubella an tibody, IgG Lab Routine Missed menses Ordered: 07/03/2023 [facility] Comment on above: Ordered: 07/03/2023 End: 07-07-2020 US DUP ABD PEL RETRO SCROT LIMITED US DUP ABD PEL RETRO SCROT LIMITED Imaging STAT Once for 1 Occurrences starting 07/07/2020 until 07/07/2020 [facility] on above: Once for 1 Occurrenc es starting 07/07/2020 until 07/07/2020 US DUP ABD PEL RETRO SCROT LIMITED US DUP ABD PEL RETRO SCROT LIMITED Imaging STAT 07/08/2020 12:13 AM EST [place] Payers Date Payer Category Payer Unknown BCBS BCBS [id number] 2023-Present [phone] [address] [place] [address] [id number] 2023 Unknown [id number] 2021 Self-pay [id number] 2002 Unknown [id number] 2002 Unknown [id number] [id number] 2002 Unknown [id number] 2.16.840.1.847108.3.579.2.593 2002 Unknown [id number] 2.16.840.1.805323.3.579.2.727 2002 Unknown [id number] 2.16.840.1.466876.3.579.2.727 2002 Unknown [id number] 2.16.840.1.014345.3.579.2.1259 2002 Unknown [id number] 2.16.840.1.584227.3.579.2.1259 2002 Unknown [id number] 2.16.840.1.954347.3.579.2.1259 2002 Unknown [id number] 2.16.840.1.691684.3.579.2.1259 2002 Unknown [id number] 2.16.840.1.642416.3.579.2.1259 2002 Unknown [id number] 2.16.840.1.046448.3.579.2.1259 2002 Unknown [id number] 2.16.840.1.491642.3.579.2.9 2002 Unknown [id number] 2.16.840.1.163921.3.579.2.1259 2002 Unknown [id number] 2.16.840.1.746393.3.579.2.9 2002 Unknown [id number] 2.16.840.1.718370.3.579.2.9 2002 Unknown [id number] 2.16.840.1.936378.3.579.2.9 2002 Unknown [id number] 2.16.840.1.089792.3.579.2.9 2002 Unknown [id number] 2.16.840.1.163791.3.579.2.9 2002 Unknown [id number] 2.16.840.1.888899.3.579.2.1259 1957 Medicaid [id number] 1957 Unknown [id number] Unknown [id number] [id number] Social History Date Type Detail Facility Start: 07-07-2020 End: 07-16-2023 Tobacco smoking status NJIS Never smoker [facility] Start: 07-07-2020 Tobacco use and exposure Never used [facility] [employer] Start: 2002 Sex Assigned At Not on file [facility] [place] Exposure to SARS-CoV-2 (event) Not sure [employer] [facility] [employer] [place] Start: 10-19-2021 Tobacco smoking status NJIS Smoker (finding) [facility] Start: 2002 Sex Assigned At Female F [facility] Tobacco smoking status [facility] Tobacco smoking consumption unknown [facility] Start: 05-22-2023 [facility] Start: 07-16-2023 Gender identity Not on file [facility] Start: 07-16-2023 End: 07-17-2023 Alcohol intake Lifetime non-drinker (finding) [facility] Start: 07-16-2023 History of Social function [facility] Tobacco smoking status No Smoking Status Entered [facility] Functional Status Date Assessment Result Facility 10-26-2023 Functional Status N/A [facility] Clinical Notes 07-03-2023 to 10-26-2023 Ravi Yousif DO - 07/17/2023 11:10 AM Costa CabrerareenaALEJANDRO - 07/03/2023 1:00 PM EST Note Date & Type Note Facility 10-26-2023 Note The following Patien t Education Materials have been given to the patient: EducationMaterial [facility] 10-26-2023 Hospital Discharg e instructions Patient Education [...] provider. Document Revised: 01/02/2022 Document Reviewed: 01/02/2022 [employer] Patient Education 2022 [email or web address] 10/26/2023 03:10:04 Vaginal Bleeding During , Second [...] help with your regular activities. Medicines Take [id number] and prescription medicines only as told by [...] provider. Document Revised: 02/08/2021 Document Reviewed: 02/08/2021 [employer] Patient Education 2022 [employer] Inc[employer] 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 [...] your back during . General instructions Take qslf-oku-[id number] and prescription medicines only as told by [...] care provider for managing back pain. Take [id number] and prescription medicines only as told by [...] provider. Document Revised: 08/01/2021 Document Reviewed: 08/01/2021 [employer] Patient Education 2022 [email or web address]. Follow Up Care 10/25/2023 23:39:34 With:Ravi YOUSIF Address: [address] , [place] [address]- Business (1) When:11/04/2023 [facility] 10-25-2023 Evaluation + Plan note Diagnostic Tests PendingUrine Culture 10/25/23 [facility] 07-17-2023 History of Presen t illness Narrative Reason for Appointment: Patient ID: Teodoro Upton is a 23 y.o. female who presents for Routine Visit Patient presents today for Return OB appointment. Current Medications: has a current medication list which includes the following prescription(s): [id number]-[id number] and promethazine. Medical History: Active Ambulatory Problems [...] Documented by AMAYA Shah on behalf of: Ravi Yousif DO documented in this encounter [facility] 07-03-2023 History of Presen t illness [...] Problems Past Medical History: Diagnosis Date Asthma (CMS/[facility]) No family history on file. Social History [...] raw or undercooked meat, stay away from [facility], do not change litter boxes, eat [...] Sarina Kilgore LPN documented in this encounter [facility] Healthcare Evaluation note No assessment inform ation available [facility] Work Phone: Evaluation note Diagnosis Missed menses Nausea and vomiting, unspecified vomiting type documented in this encounter [facility] HealthcareEvaluation note* Diagnosis First trimester state, incidental Vaginal bleeding in Threatened miscarriage Threatened , unspecified as to episode of care with uncertain viability, single or unspecified fetus documented in this encounter [facility] HealthcareHospital course Narrative No data available for this section [facility] instructions Additional Instructions Please follow up as we discussed so you can have your concerns further evaluated.[facility] Work Phone: Progress note No data available for this section [facility] Discharge Instructions * Instructions* Brenda Stoner DO - 07/08/2020 [facility] ED Clinic List Healthcare Providers Services Day of Week/ Hours [facility] Services [address] [facility] Pediatric Primary Care Adult Primary Care FLATTENING MACHINE OPERATOR//Specialty Clinics Friday 8:00a 4:30p [address] Adult Medicine, Pediatrics, FLATTENING MACHINE OPERATOR Friday 8:30a 4:30p [facility] Surgery [address] [facility] Friday 8:30a 11:00a [facility] [address] [facility] Adult Internal Medicine ([facility]) FLATTENING MACHINE OPERATOR Clinic Pediatric Clinic Friday, Friday, , Friday 8:00a 4:30p Friday 1:00p 4:30p Friday, Friday, 8:00a 5:00p; Friday 8:00a 12:30p Friday 1p 4p Friday, Friday, , Friday 8:30a 4:15p Friday 12:30p 4:15p [facility] [address] [facility] Pediatric Primary Care Adult Primary Care OB/ Friday, Friday 8a 12p 8a 4:45p [facility] [address] [place] [address] # Pre & Post Adoption Counseling Support / nutrition Care Reward Incentive Program [facility] Fri, , Fri, Fri 10:00a 4:30p Th 10:00a 7:30p E Gomez Location Friday - Friday 10a 4:30p [facility] FLATTENING MACHINE OPERATOR [address] [facility] Adult Internal Medicine [address] [facility] Pediatrics [address] [facility] [address] Neuro / Headache [address] [facility] Friday 8:30a 5p [facility] [address] [facility] Family Practice Fri, , , Fri 9:00a 4:30p Wed 1:00p 4:30p [facility] Family Practice [address] [facility] [address] Family Practice Friday 8:30a 5:00p [facility] Specialty Clinics [address] [facility] [address] Burn/Plastic, ENT, GI, Orthopedics, Surgical / Trauma, Urology, Vascular Friday 8:00 4:30p Call for an appointment [facility] [address] [facility] Adult Medicine, Eye Clinic, Dental Patient must be certified homeless Under age 18 not accepted Friday 8:00 4:30p [facility] [address] [facility] Family Practice OB Friday, Friday, Friday, Friday 9a 5p 9a 6p Friday (OB only) [facility] [address] [facility] OB/ Friday 11a 7p , Fri, 9a 5p Friday 8a 4p 1st Friday 9a 1p Podiatry Clinic [address] [facility] [address] Friday 8:00 4:30 p Center [facility] [address] Free nurse visits [place] programs Counseling Class Call or walk in [facility] [address] Various Clinics 8a 5:30p [facility] [address] [facility], [address] Family Practice Friday 8a 4:30p [address] [id number] [address] [place], [place] [id number] Friday 8a 4:30p Friday 8a 4:30p 8a 8p Outpatient Clinics [facility] [address] [facility] Friday 9a 5p Diabetic Education Services Call for an appointment [facility] Failure [facility] [address] [facility] Friday 8:30a 4p Dental Services [facility] [address] Must have source of income and must bring (2) recent check stubs to appointment By appointment only [facility] [address] [facility] Patient must be homeless, call for eligibility guidelines. Under age 18 NOT accepted Days and hours vary (Doors open at 8:30a day of week varies) Call for an appointment Miscellaneous Information [facility] First Call for Help [phone] Call for an appointment H.E.L.P (Hospital Eligibility Link Program) toll free For financial assistance * Attachments The following attachments cannot be sent through Care Everywhere. * Bacterial Vaginosis (Honduran) * UTI (Urinary Tract Infection): Female (Honduran) * Vitamin D: General Info (Honduran) documented in this encounter Assessments Diagnosis BV [...] section and content) DATE CREATED AUTHOR 07/16/2020 [facility] DATE CREATED AUTHOR AUTHOR'S ORGANIZ ATION 09/07/2022 [facility] DATE CREATED AUTHOR AUTHOR'S ORGANIZ ATION 03/13/2023 [facility] DATE CREATED AUTHOR AUTHOR'S ORGANIZ ATION 10/27/2023 [facility] DATE CREATED AUTHOR AUTHOR'S ORGANIZ ATION 10/31/2023 [facility] DATE CREATED AUTHOR AUTHOR'S ORGANIZ ATION 02/12/2024 [facility] Special[facility] Care Teams (unrecognized sec tion and content) [...] BE BASED ON THE PRIMARY CLINICAL RECORDS. [employer] provides no warranty or guarantee of the accuracy or completeness of information in this document.
--- NOTE | 2024-02-15 21:50 | PC.NURSE ---
Pt states that she had a csection 2 weeks ago, had her recheck appt this past Tues and was ok but tonight started having vaginal bleeding and lower abd pain. Pt has a picture on her phone of blood when she wiped and appears brownish red and mucousy. Pt denies any clots. Pt has on a brief at this time.
--- NOTE | 2024-02-15 22:03 | ED_ITS ---
HPI - General Chief complaint: OB/Uterine Contractions Stated complaint: Postoperative Complication Time Seen by Provider: 02/15/24 21:12 Source: patient Mode of arrival: walk-in History of Present Illness HPI Narrative: 24-year-old female presents for vaginal bleeding. She is 13 days postop from C- section and had been having lightening of her bleeding until today when it became heavier. It was darker in color as well. No fever. The surgical incision is healing well and she has had no issues with that. No dizziness or syncope. Related Data Home Medications ?Medication ?Instructions ?Recorded ?Confirmed cephalexin 500 mg capsule mg UTI 02/02/24 Previous Rx's ?Medication ?Instructions ?Recorded ibuprofen 800 mg tablet 800 mg PO Q8H PRN pain 14 days #40 02/04/24 tabs oxycodone-acetaminophen 5 mg-325 1 tab PO Q6H PRN pain 7 days #28 02/04/24 mg tablet (Percocet) tabs Allergies Allergy/AdvReac Type Severity Reaction Status Date / Time No Known Drug Allergies Allergy Verified 03/26/23 11:41 Review of Systems ROS Narrative A ten point review of systems is negative except as noted above. Exam Narrative Exam Narrative: Nurses note and vital signs reviewed and patient is not hypoxic. General: The patient appears in no apparent distress. Patient is resting comfortably on cart. Skin: Warm, dry, no pallor noted. There is no rash noted. Head: Normocephalic, atraumatic Eye: Normal conjunctiva, no drainage Ears, Nose, Mouth, and Throat: oral mucosa is moist. Nares patent. Cardiovascular: Regular Rate and Rhythm Respiratory: Patient is in no distress, no accessory muscle use, lungs are clear to auscultation, no wheezing, rales or rhonchi GI: Soft and nondistended. Surgical wound is healing well with no dehiscence and Steri-Strips are in place. No surrounding erythema. Musculoskeletal: The patient has no evidence of calf tenderness, no pitting edema, symmetrical pulses noted bilaterally Neurological: A&O, normal speech Psychiatric: Cooperative Constitutional Vital Signs, click to edit/add: Last Vital Signs Pulse 80 02/15/24 23:17 Resp 16 02/15/24 23:17 BP 132/76 02/15/24 23:17 Pulse Ox 100 02/15/24 23:17 O2 Del Method Room Air 02/15/24 21:05 Course Vital Signs Vital signs: Vital Signs Pulse Rate 93 H 02/15/24 21:05 Blood Pressure 112/76 02/15/24 21:05 Pulse Oximetry 98 02/15/24 21:05 Oxygen Delivery Method Room Air 02/15/24 21:05 Pulse Rate 80 02/15/24 23:17 Respiratory Rate 16 02/15/24 23:17 Blood Pressure 132/76 02/15/24 23:17 Pulse Oximetry 100 02/15/24 23:17 Oxygen Delivery Method Room Air 02/15/24 21:05 MDM - OB/Uterine Contractions MDM Narrative Medical decision making narrative: Hemoglobin is up to 11.4. Fibrinogen is normal and coags are normal. She will be discharged home but will call her alcohol law enforcement agent in the morning for follow-up. Findings are discussed thoroughly with the patient and her mother. Differential Diagnosis Differential diagnosis: Likely hemorrhage and other (Anemia) Lab Data Attestation: I reviewed the patient's lab results. Labs: Lab Results 02/15/24 02/15/24 Range/Units 22:25 23:34 WBC 9.8 (4.0-11.0) 10^3/uL RBC 4.24 (4.20-5.40) 10^6/uL Hgb 11.4 L (12.0-16.0) g/dL Hct 35.7 L (36.0-48.0) % MCV 84.2 (81.0-99.0) fL MCH 26.9 (26.7-34.0) pg MCHC 31.9 (29.9-35.2) g/dL RDW 14.2 (11.0-15.0) % Plt Count 433 (150-450) 10^3/uL MPV 10.1 (9.5-13.5) fL Neut % (Auto) 71.1 (43.0-75.0) % Lymph % (Auto) 20.6 (20.5-60.0) % [place] % (Auto) 6.1 (1.7-12.0) % Eos % (Auto) 1.6 (0.9-7.0) % Baso % (Auto) 0.4 (0.2-2.0) % Neut # (Auto) 6.9 H (1.4-6.5) 10^3/uL Lymph # (Auto) 2.0 (1.2-3.8) 10^3/uL [place] # (Auto) 0.6 (0.3-0.8) 10^3/uL Eos # (Auto) 0.2 (0.0-0.7) 10^3/uL Baso # (Auto) 0.0 (0.0-0.1) 10^3/uL Abs Immat Gran (auto) 0.02 (0.00-0.03) 10^3/uL Imm/Tot Granulo (auto) 0.2 (0.0-0.5) % PT 10.3 (9.0-11.6) sec INR 0.97 APTT <20.0 L (22.3-36.2) sec Fibrinogen 363 (200-400) mg/dL Sodium 139 (136-145) mmol/L Potassium 3.8 (3.5-5.1) mmol/L Chloride 103 (98-107) mmol/L Carbon Dioxide 26.5 (21.0-32.0) mmol/L Anion Gap 13.3 BUN 13.0 (7.0-18.0) mg/dL Creatinine 1.14 H (0.55-1.02) mg/dL Est GFR ( Amer) >60 (>=60) Est GFR (Non-Af Amer) 60 (>=60) BUN/Creatinine Ratio 11.4 Glucose 90 (74-106) mg/dL Calcium 9.0 (8.5-10.1) mg/dL Discharge Plan Discharge Chief Complaint: OB/Uterine Contractions Clinical Impression: bleeding Patient Disposition: Home, Self-Care Time of Disposition Decision: 00:28 Condition: Good Mode of Transportation: Private Vehicle Prescriptions / Home Meds: No Action cephalexin 500 mg capsule ibuprofen 800 mg tablet 800 mg PO Q8H PRN (Reason: pain) 14 Days Qty: 40 0RF oxycodone-acetaminophen [Percocet] 5-325 mg tablet 1 tab PO Q6H PRN (Reason: pain) 7 Days Qty: 28 0RF Print Language: Dominican Instructions: Bleeding (ED) Referrals: Physician,Non-Staff, MD [Primary Care Provider] - 1 week
[2024-02-15 22:41] LABS: Anion Gap 13.3; BUN Creatinine Ratio 11.4; Carbon Dioxide 26.5 mmol/L (21.0-32.0); Chloride 103 mmol/L (98-107); Estimated GFR (African America >60 (>=60); Estimated GFR (Non-African Ame 60 (>=60); Glucose 90 mg/dL (74-106); Potassium 3.8 mmol/L (3.5-5.1); Sodium 139 mmol/L (136-145)
[2024-02-15] MEDS: ACETAMINOPHEN 500 MG TABLET 1000 MG PO (23:12)
[2024-02-15 23:17] VITALS: BP 132/76; PULSE 80; O2SAT 100
[2024-02-15 23:38] LABS: Basophils Percent Auto 0.4 % (0.2-2.0); Eosinophils Absolute Auto 0.2 10^3/uL (0.0-0.7); Eosinophils Percent Auto 1.6 % (0.9-7.0); Hematocrit 35.7 % (36.0-48.0); Hemoglobin 11.4 g/dL (12.0-16.0); Immature Granulocytes Abs Auto 0.02 10^3/uL (0.00-0.03); Immature Granulocytes Pct Auto 0.2 % (0.0-0.5); Lymphocytes Percent Auto 20.6 % (20.5-60.0); Mean Corpuscular HGB Conc 31.9 g/dL (29.9-35.2); Mean Corpuscular Hemoglobin 26.9 pg (26.7-34.0); Mean Corpuscular Volume 84.2 fL (81.0-99.0); Mean Platelet Volume 10.1 fL (9.5-13.5); Monocytes Absolute Auto 0.6 10^3/uL (0.3-0.8); Monocytes Percent Auto 6.1 % (1.7-12.0); Neutrophils Absolute Auto 6.9 10^3/uL (1.4-6.5); Neutrophils Percent Auto 71.1 % (43.0-75.0); Platelet Count 433 10^3/uL (150-450); Red Blood Count 4.24 10^6/uL (4.20-5.40); Red Cell Distribution Width 14.2 % (11.0-15.0); White Blood Count 9.8 10^3/uL (4.0-11.0)
[2024-02-16 00:04] LABS: Fibrinogen 363 mg/dL (200-400); INR 0.97; Partial Thromboplastin Time <20.0 sec (22.3-36.2); Prothrombin Time 10.3 sec (9.0-11.6)
== END 2024-02-16 00:40 | disposition home or self-care (01) ==
PROVIDERS: Emergency Provider Emergency Medicine
DX: O72.1 Other immediate postpartum hemorrhage (principal)
CPT/HCPCS: 36415; 80048; 85025; 85384; 85610; 85730; 99283

== ENCOUNTER 2024-02-16 13:58 | Outpatient (OUT) | payer MEDICAID, SELFPAY ==
--- NOTE | 2024-02-16 14:00 | US_ITS ---
The [address] [address] Patient Name: TEODORO HERNANDES MRN: [id number] date: 2000 Sex: F Assigned Patient Location: [facility] Current Patient Location: Accession/Order Number: [id number] Exam Date: 02/16/2024 14:01 Report Date: 02/17/2024 07:46 At the request of: ROBERT CULLEN Procedure: US pelvis w/ transvaginal EXAMINATION: US pelvis w/ transvaginal HISTORY: BLEEDING STATUS POST C SECTION. RULE OUT PRODUCTS OF CONSEP COMPARISON: No relevant comparison available. FINDINGS: Transabdominal images The uterus is enlarged in size measuring 15.5 x 7.9 x 2.5 cm consistent with the patient's state. The uterus is anteverted, anteflexed. Endometrium measures 3 cm, heterogeneous and thickened with no color flow. The ovaries are not visualized No free fluid US/US pelvis w/ transvaginal IMPRESSION: Heterogeneous thickened endometrial cavity likely allergic byproducts. No color flow to suggest retained products of conception Electronically authenticated by: LISETTE JIMENEZ Date: 02/17/2024 07:46
== END 2024-02-16 13:59 | disposition home or self-care (01) ==
LOC: NOMS 13:58
PROVIDERS: Visit Provider Physician Assistant
DX: N93.9 Abnormal uterine and vaginal bleeding, unspecified (principal); Z98.891 History of uterine scar from previous surgery
CPT/HCPCS: 76830; 76856

== ENCOUNTER 2024-11-26 17:42 | Emergency (ER) | payer MEDICAID, SELFPAY ==
--- OUTSIDE RECORDS SUMMARY | 2024-11-26 17:53 | XMS_ITS | Encounter Summary ---
Author Organization [facility] Address [address] [place] [place] [address] Care Team Providers Care Cross Country Coach Name Role Phone Ravi Yousif DO Unavailable Encounter Details Date Type Department Care Team (Late Contact Info) Description 02/17/2024 Clinisync Result Encounter [facility] External Department Unsolicited Halima Cullen PA [address] [place], [place] [address] Social History Tobacco Use Types Packs/Day Years Used Date Smoking Tobacco: Never Alcohol Use Standard Drinks/Week Comments Never 0 (1 standard drink = 0.6 oz pur e alcohol) Comments No Sex and Gender Information Value Date Recorded Sex Assigned at Not on file Legal Sex Female 6:51 PM EDT Gender Identity Not on file Sexual Orientation Not on file documented as of this encounter Plan of Treatment Upcoming Encounters Date Type Department Care Team (Late Contact Info) Description 03/22/2025 2:00 PM EDT Office Visit [facility] BCP OB [address] [facility] [place] [place] [address] Ravi Yousif DO [address] [place], [facility]11 documented as of this encounter Procedures Procedure Name Priority Date/Time Associated Diagnosis Comments US PELVIS W/ TRANSVAGINAL 02/17/2024 7:46 AM EDT documented in this encounter Results * US PELVIS W/ TRANSVAGINAL (02/17/2024 7:46 AM EDT) Anatomical Region Laterality Modality Other 02/17/2024 7:46 AM EDT Narrative 02/17/2024 7:49 [place] [address] Ultrasound Report Signed Patient: TEODORO HERNANDES MR#: [id number] : 2000 Acct:[id number] Age/Sex: 24 / F ADM Date: 02/16/24 Loc: [facility] Attending Dr: Halima Cullen Ordering Physician: Halima Cullen Date of Service: 02/16/24 Procedure(s): US pelvis w/ transvaginal Accession Number(s): [id number] cc: Halima Cullen; Physician,Non-Staff M.DChito The [address] [address] Patient Name: TEODORO HERNANDES MRN: [id number] date: 2000 Sex: F Assigned Patient Location: [facility] Current Patient Location: Accession/Order Number: [id number] Exam Date: 02/16/2024 14:01 Report Date: 02/17/2024 07:46 At the request of: HALIMA CULLEN Procedure: US pelvis w/ transvaginal EXAMINATION: US pelvis w/ transvaginal HISTORY: BLEEDING STATUS POST C SECTION. RULE OUT PRODUCTS OF CONSEP COMPARISON: No relevant comparison available. FINDINGS: Transabdominal images The uterus is enlarged in size measuring 15.5 x 7.9 x 2.5 cm consistent with the patient's state. The uterus is anteverted, anteflexed. Endometrium measures 3 cm, heterogeneous and thickened with no color flow. The ovaries are not visualized No free fluid US/US pelvis w/ transvaginal IMPRESSION: Heterogeneous thickened endometrial cavity likely allergic byproducts. No color flow to suggest retained products of conception Electronically authenticated by: LISETTE JIMENEZ Date: 02/17/2024 07:46 Dictated By: Lisette Jimenez M.D. Signed By: 02/17/24 0749 DD/ 5 TD/TT: Home Security Alarm Installer: Procedure Note Radiology, Radiologist, MD - 02/17/2024 The [place] [id number] Ultrasound Report Signed Patient: TEODORO HERNANDES MMR#: [id number] : 2000Acct:[id number] Age/Sex: 24 / FADM Date: 02/16/24 Loc: [facility] Attending Dr: Halima Cullen Ordering Physician: Halima Cullen Date of Service: 02/16/24 Procedure(s): US pelvis w/ transvaginal Accession Number(s): [id number] cc: Halima Cullen; Physician,Non-Staff Uriel The [place] [id number] Patient Name: TEODORO HERNANDES MRN: [id number] date: 2000 Sex: F Assigned Patient Location: [facility] Current Patient Location: Accession/Order Number: [id number] Exam Date: 02/16/2024 14:01 Report Date: 02/17/2024 07:46 At the request of: HALIMA CULLEN Procedure: US pelvis w/ transvaginal EXAMINATION: US pelvis w/ transvaginal HISTORY: BLEEDING STATUS POST C SECTION. RULE OUT PRODUCTS OF CONSEP COMPARISON: No relevant comparison available. FINDINGS: Transabdominal images The uterus is enlarged in size measuring 15.5 x 7.9 x 2.5 cm consistentwith the patient's state. The uterus is anteverted, anteflexed. Endometrium measures 3 cm, heterogeneous and thickened with no color flow. The ovaries are not visualized No free fluid US/US pelvis w/ transvaginal IMPRESSION: Heterogeneous thickened endometrial cavity likely allergic byproducts. No color flow to suggest retained products of conception Electronically authenticated by: LISETTE JIMENEZ Date: 02/17/2024 07:46 Dictated By: Lisette Jimenez M.D. Signed By:02/17/24 0749 DD/ 5 TD/TT: Home Security Alarm Installer: us Halima Gene PA [facility] Final Result documented in this encounter Visit Diagnoses Not on filedocumented in this encounter Care Teams Cross Country Coach Relationship Specialty Start Date End Date Ravi Yousif DO [address] [place] [address] PCP - FFS State [facility] 03/02/24 documented as of this encounter
--- OUTSIDE RECORDS SUMMARY | 2024-11-26 17:53 | XMS_ITS | Encounter Summary ---
Author Organization [facility] Address [address] [facility] [place] [address] Care Team Providers Care Loan Documentation Specialist Name Role Phone Ravi Yousif DO Unavailable Encounter Details Date Type Department Care Team (Late st Contact Info) Description 10/14/2023 Orders Only [facility] OB [address] [place] [address] Beth Curtis LPN [address] [facility] [address] [place] [address] Social History Tobacco Use Types Packs/Day Years Used Date Smoking Tobacco: Never Alcohol Use Standard Drinks/Week Comments Never 0 (1 standard drink = 0.6 oz pur e alcohol) Comments Yes Sex and Gender Information Value Date Recorded Sex Assigned at Not on file Legal Sex Female 6:51 PM EDT Gender Identity Not on file Sexual Orientation Not on file documented as of this encounter Plan of Treatment Upcoming Encounters Date Type Department Care Team (Late st Contact Info) Description 03/22/2025 2:00 PM EDT Office Visit [facility] OB [address] [place] [address] Ravi Yousif DO [address] [place] [facility]11 documented as of this encounter Procedures Procedure Name Priority Date/Time Associated Diagnosis Comments PAP SMEAR Routine 10/07/2023 12:00 AM EDT documented in this encounter Results * Pap Smear (10/07/2023 12:00 AM EDT) Swab Cervical swab / Unknown us Benja Nurse [facility] Bcp Ob LAB CYTOLOGY ORDERABLES Final Result EXTERNAL LAB documented in this encounter Visit Diagnoses Not on filedocumented in this encounter Care Teams Loan Documentation Specialist Relationship Specialty Start Date End Date Ravi Yousif DO [address] [place] [id number] PCP - FFS [facility] 03/02/24 documented as of this encounter
--- OUTSIDE RECORDS SUMMARY | 2024-11-26 17:53 | XMS_ITS | Encounter Summary ---
Author Organization [facility] Address [address] [facility] [place] [address] Care Team Providers Care Clinical Coordinator Name Role Phone Ravi Yousif DO Unavailable Encounter Details Date Type Department Care Team (Late Contact Info) Description 01/28/2024 Clinisync Result Encounter [facility] External Department Unsolicited Ravi Yousif, [address] [place], [place] [address] Social History Tobacco Use Types Packs/Day Years [...] EDT Office Visit [facility] BCP OB [address] [place] [phone] Ravi Yousif DO [address] [place], [facility]11 documented as of this encounter Procedures Procedure Name Priority Date/Time Associated Diagnosis Comments US OB GROWTH 01/28/2024 3:06 PM EDT documented in this encounter Results * US OB GROWTH (01/28/2024 3:06 PM EDT) Anatomical Region Laterality Modality Other 01/28/2024 3:06 PM EDT Narrative 01/28/2024 3:08 [place] [address] Ultrasound Report Signed Patient: TEODORO HERNANDES MR#: [id number] : 2000 Acct:[id number] Age/Sex: 23 / F ADM Date: 01/28/24 Loc: [facility] Attending Dr: Ravi Yousif D.O. Ordering Physician: Ravi Yousif D.O. Date of Service: 01/28/24 Procedure(s): US OB growth Accession Number(s): [id number] cc: Ravi Yousif D.O.; Physician,Non-Staff M.Junior The [place] [id number] Patient Name: TEODORO HERNANDES MRN: [id number] date: 2000 Sex: F Assigned Patient Location: [facility] Current Patient Location: [facility] Accession/Order Number: [id number] Exam Date: 01/28/2024 14:42 Report Date: 01/28/2024 15:06 At the request of: RAVI YOUSIF Procedure: US OB growth EXAMINATION: US OB growth HISTORY: Excessive growth O36.60X0 COMPARISON: 01/08/24 FINDINGS: Heart Rate: 159 bpm Amniotic Fluid Volume: 16.9 cm, largest fluid pocket 5.0 cm Number: 1 Position: Cephalic presentation, longitudinal lie BIOMETRY: BPD: 9.05 cm; 36w5d; 39.20 % HC: 34.98 cm; 40w5d; 89 % AC: 38.32 cm; ; >97 % FL: 7.90 cm; 40w3d; 95.80 % EFW: 3964.59 g; >97 %, 9lb 5 oz FL/AC: 20.62 FL/BPD: 87.29 HC/AC: 0.91 GESTATIONAL AGE: Age by EDC: 37w6d ROGER by EDC: 2024-02-12 Age by US: 39w2d ROEGR by US: 2024-02-02 US/US OB growth IMPRESSION: Large for gestational age, estimated weight > 97% Electronically authenticated by: LISETTE JIMENEZ Date: 01/28/2024 15:06 Dictated By: Lisette Jimenez M.D. Signed By: 01/28/24 1508 DD/ 1506 TD/TT: Aws Developer: Procedure Note Radiology, Radiologist, MD - 01/28/2024 [place] [address] Ultrasound Report Signed Patient: TEODORO HERNANDES MMR#: [id number] : 2000Acct:[id number] Age/Sex: 23 / FADM Date: 01/28/24 Loc: [facility] Attending Dr: Ravi Yousif D.O. Ordering Physician: Ravi Yousif D.O. Date of Service: 01/28/24 Procedure(s): US OB growth Accession Number(s): [id number] cc: Ravi Yousif D.O.; Physician,Non-Staff Uriel The [place] [id number] Patient Name: TEODORO HERNANDES MRN: [id number] date: 2000 Sex: F Assigned Patient [facility]: [facility] Current Patient Location: [facility] Accession/Order Number: [id number] Exam Date: 01/28/2024 14:42 Report Date: 01/28/2024 15:06 At the request of: RAVI YOUSIF Procedure: US OB growth EXAMINATION: US OB growth HISTORY: Excessive growth O36.60X0 COMPARISON: 01/08/24 FINDINGS: Heart Rate: 159 bpm Amniotic Fluid Volume: 16.9 cm, largest fluid pocket 5.0 cm Number: 1 Position: Cephalic presentation, longitudinal lie BIOMETRY: BPD: 9.05 cm; 36w5d; 39.20 % HC: 34.98 cm; 40w5d; 89 % AC: 38.32 cm; ; >97 % FL: 7.90 cm; 40w3d; 95.80 % EFW: 3964.59 g; >97 %, 9lb 5 oz FL/AC: 20.62 FL/BPD: 87.29 HC/AC: 0.91 GESTATIONAL AGE: Age by EDC: 37w6d ROGER by EDC: 2024-02-12 Age by US: 39w2d ROGER by US: 2024-02-02 US/US OB growth IMPRESSION: Large for gestational age, estimated weight > 97% Electronically authenticated by: LISETTE JIMENEZ Date: 01/28/2024 15:06 Dictated By: Lisette Jimenez M.D. Signed By:01/28/24 1508 DD/ 1506 TD/TT: Aws Developer: us Ravi Yousif DO [facility] Final Result documented in this encounter Visit Diagnoses Not on filedocumented in this encounter Care Teams Clinical Coordinator Relationship Specialty Start Date End Date Ravi Yousif DO [address] [place] [address] [place] [address] PCP - FFS State [facility] 03/02/24 documented as of this encounter
--- OUTSIDE RECORDS SUMMARY | 2024-11-26 17:53 | XMS_ITS | Encounter Summary ---
Author Organization [facility] Address [address] [facility] [place] [address] Care Team Providers Care Waste Machine Offbearer Name Role Phone Ravi Yousif DO Unavailable Encounter Details Date Type Department Care Team (Late Contact Info) Description 01/30/2024 Clinisync Result Encounter [facility] External Department Unsolicited Ravi Yousif, [facility] Juan Carmichael, [place] [address] Social History Tobacco Use Types Packs/Day Years [...] Visit [facility] BCP OB [address] [place] [phone] Ravi Yousif DO [address] [place] [address] documented as of this encounter Procedures Procedure Name Priority Date/Time Associated Diagnosis Comments US OB BPP W NON-STRESS 01/30/2024 7:38 PM EDT documented in this encounter Results * US OB BPP W NON-STRESS (01/30/2024 7:38 PM EDT) Anatomical Region Laterality Modality Other 01/30/2024 7:38 PM EDT Narrative 01/30/2024 7:40 [place] [address] Ultrasound Report Signed Patient: TEODORO HERNANDES MR#: [id number] : 2000 Acct:[id number] Age/Sex: 23 / F ADM Date: 01/30/24 Loc: [facility] Attending Dr: Ravi Yousif D.O. Ordering Physician: Ravi Yousif D.O. Date of Service: 01/30/24 Procedure(s): US OB BPP w non-stress Accession Number(s): [id number] cc: Ravi Yousif D.O.; Physician,Non-Staff M.DChito The [place] [address] Patient Name: TEODORO HERNANDES MRN: [id number] date: 2000 Sex: F Assigned Patient Location: [facility] Current Patient Location: [facility] Accession/Order Number: [id number] Exam Date: 01/30/2024 18:10 Report Date: 01/30/2024 19:38 At the request of: RAVI YOUSIF Procedure: US OB BPP w non-stress EXAM: US OB BPP w non-stress HISTORY: Non reactive NST COMPARISON: Multiple prior studies including OB growth study 01/20/2024 and biophysical profile exams 01/27/2024 and earlier. TECHNIQUE: Ultrasound biophysical profile FINDINGS: Single fetus, heart rate 158 bpm. Cephalic presentation. BRAD 16.8 cm, deepest pocket 7.2 cm. Between fifth and 95th percentile. breathing movements noted: 2 Gross body movements noted: 2 tone: 2 Qualitative amniotic fluid volume: 2 Total score 8/8. Images suggest the umbilical cord noted along the anterior, right and left side of the neck on a transverse scan. Cannot see the deeper tissues to determine if the cord encircles the entire neck or not. This has not been seen previously. right renal pelvis again noted to be prominent. Current measurement 1.6 cm, previous measurements of 1.4-1.5 cm.. US/US OB BPP w non-stress IMPRESSION: 1. Biophysical profile score 8/8 unchanged. 2. Prominent right renal pelvis similar previous. 3. The umbilical cord may be wrapped around the neck. This has not been seen previously. Results called to the patient's physician on 01/30/2024 at 7:27 PM Eastern standard time Electronically authenticated by: BILL SALCEDO Date: 01/30/2024 19:38 Dictated By: Bill Salcedo M.D. Signed By: 01/30/241939 DD/ 37 TD/TT: Beef Breaker: Procedure Note Radiology, Radiologist, MD - 01/30/2024 [place] [address] Ultrasound Report Signed Patient: TEODORO HERNANDES MMR#: [id number] : 2000Acct:[id number] Age/Sex: 23 M Date: 01/30/24 Loc: [facility] Attending Dr: Ravi Yousif D.O. Ordering Physician: Ravi Yousif D.O. Date of Service: 01/30/24 Procedure(s): US OB BPP w non-stress Accession Number(s): [id number] cc: Ravi Yousif D.O.; Physician,Non-Staff Uriel The [address] [address] Patient Name: TEODORO HERNANDES MRN: [id number] date: 2000 Sex: F Assigned Patient Location: [facility] Current Patient Location: [facility] Accession/Order Number: [id number] Exam Date: 01/30/2024 18:10 Report Date: 01/30/2024 19:38 At the request of: RAVI YOUSIF Procedure: US OB BPP w non-stress EXAM: US OB BPP w non-stress HISTORY: Non reactive NST COMPARISON: Multiple prior studies including OB growth study 01/20/2024 and biophysical profile exams 01/27/2024 and earlier. TECHNIQUE: Ultrasound biophysical profile FINDINGS: Single fetus, heart rate 158 bpm. Cephalic presentation. BRAD 16.8 cm, deepest pocket 7.2 cm. Between fifth and 95th percentile. breathing movements noted: 2 Gross body movements noted: 2 tone: 2 Qualitative amniotic fluid volume: 2 Total score 8/8. Images suggest the umbilical cord noted along the anterior, right and left side of the neck on a transverse scan. Cannot see the deeper tissues todetermine if the cord encircles the entire neck or not. This has not been seenpreviously. right renal pelvis again noted to be prominent. Current measurement1.6 cm, previous measurements of 1.4-1.5 cm.. US/US OB BPP w non-stress IMPRESSION: 1. Biophysical profile score 8/8 unchanged. 2. Prominent right renal pelvis similar previous. 3. The umbilical cord may be wrapped around the neck. This has notbeen seen previously. Results called to the patient's physician on 01/30/2024 at 7:27 PM Eastern standard time Electronically authenticated by: BILL SALCEDO Date: 01/30/2024 19:38 Dictated By: Bill Salcedo M.D. Signed By:01/30/241939 DD/ 37 TD/TT: Beef Breaker: Ravi Yousif DO [facility] Final Result documented in this encounter Visit Diagnoses Not on filedocumented in this encounter Care Teams Waste Machine Offbearer Relationship Specialty Start Date End Date Ravi Yousif DO [address] [place], [place] [address] [address] PCP - FFS State [facility] 03/02/24 documented as of this encounter
--- OUTSIDE RECORDS SUMMARY | 2024-11-26 17:53 | XMS_ITS | Encounter Summary ---
Author Organization [facility] Address [address] [facility] [place] [address] Care Team Providers Care Hotel Server Name Role Phone Ravi Yousif DO Unavailable Encounter Details Date Type Department Care Team (Late Contact Info) Description 12/22/2023 Abstract [facility] OB [address] [place] [address] Ravi Yousif [address], [place] [address] Social History Tobacco Use Types Packs/Day Years [...] 03/22/2025 2:00 PM EDT Office Visit [facility] OB [address] [place] [address] Ravi Yousif [address], [facility]11 documented as of this encounter Visit Diagnoses Not on filedocumented in this encounter Care Teams Hotel Server Relationship Specialty Start Date End Date Ravi Yousif DO [address] [place] [address] PCP - FFS State [facility] 03/02/24 documented as of this encounter
--- OUTSIDE RECORDS SUMMARY | 2024-11-26 17:53 | XMS_ITS | Encounter Summary ---
Author Organization [facility] Address [address] [facility] [place] [address] Care Team Providers Care International Nurse Name Role Phone Ravi Yousif DO Unavailable Encounter Details Date Type Department Care Team (Late Contact Info) Description 01/28/2024 Clinisync Result Encounter NOMS External Department Unsolicited Robert Cullen PA [address] [facility] [address] [place], [place] [address] Social History Tobacco Use Types Packs/Day Years [...] EDT Office Visit [facility] BCP OB [address] [facility] [place] [address] Ravi Yousif DO [address] [place], [facility]11 documented as of this encounter Procedures Procedure Name Priority Date/Time Associated Diagnosis Comments US OB BPP W NON-STRESS 01/28/2024 8:50 AM EDT documented in this encounter Results * US OB BPP W NON-STRESS (01/28/2024 8:50 AM EDT) Anatomical Region Laterality Modality Other 01/28/2024 8:50 AM EDT Narrative 01/28/2024 8:52 [place] [address] Ultrasound Report Signed Patient: TEODORO HERNANDES MR#: [id number] : 2000 Acct:[id number] Age/Sex: 23 / F ADM Date: 01/27/24 Loc: US Attending Dr: Robert Cullen Ordering Physician: Robert Cullen Date of Service: 01/27/24 Procedure(s): US OB BPP w non-stress Accession Number(s): [id number] cc: Robert Cullen; Physician,Non-Staff M.D. The [place] [id number] Patient Name: TEODORO HERNANDES MRN: [id number] date: 2000 Sex: F Assigned Patient Location: [facility] Current Patient Location: Accession/Order Number: [id number] Exam Date: 01/27/2024 19:13 Report Date: 01/28/2024 08:50 At the request of: ROBERT CULLEN Procedure: US OB BPP w non-stress EXAMINATION: US OB BPP w non-stress HISTORY:EXCESSIVE GROWTH AFFECTING O36.60X0 COMPARISON: Ultrasound OB biophysical 01/20/2024 TECHNIQUE: Ultrasound biophysical profile was performed in the radiology department. BREATHING MOVEMENTS: 2 GROSS BODY MOVEMENTS: 2 TONE: 2 QUALITATIVE AMNIOTIC FLUID VOLUME: 2 PRESENTATION: CEPHALIC HEART RATE: 157.89 bpm AMNIOTIC FLUID VOLUME: 15.45 cm GESTATIONAL AGE: 37 weeks 5 days US/US OB BPP w non-stress IMPRESSION: 1. Total biophysical profile score: 8 2. Persistent dilation of right renal pelvis, 15 mm in width. Electronically authenticated by: ZURI RIVERA Date: 01/28/2024 08:50 Dictated By: Zuri Rviera M.D. Signed By: 01/28/24 0852 DD/ 0850 TD/TT: Manager Product Marketing: Procedure Note Radiology, Radiologist, MD - 01/28/2024 [place] [address] Ultrasound Report Signed Patient: TEODORO HERNANDES MMR#: [id number] : 2000Acct:[id number] Age/Sex: 23 / FADM Date: 01/27/24 Loc: US Attending Dr: Robert Cullen Ordering Physician: Robert Cullen Date of Service: 01/27/24 Procedure(s): US OB BPP w non-stress Accession Number(s): [id number] cc: Robert Cullen; Physician,Non-Staff Uriel The [place] [address] Patient Name: TEODORO HERNANDES MRN: [id number] date: 2000 Sex: F Assigned Patient Location: [facility] Current Patient Location: Accession/Order Number: [id number] Exam Date: 01/27/2024 19:13 Report Date: 01/28/2024 08:50 At the request of: ROBERT CULLEN Procedure: US OB BPP w non-stress EXAMINATION: US OB BPP w non-stress HISTORY:EXCESSIVE GROWTH AFFECTING O36.60X0 COMPARISON: Ultrasound OB biophysical 01/20/2024 TECHNIQUE: Ultrasound biophysical profile was performed in the radiology department. BREATHING MOVEMENTS: 2 GROSS BODY MOVEMENTS: 2 TONE: 2 QUALITATIVE AMNIOTIC FLUID VOLUME: 2 PRESENTATION: CEPHALIC HEART RATE: 157.89 bpm AMNIOTIC FLUID VOLUME: 15.45 cm GESTATIONAL AGE: 37 weeks 5 days US/US OB BPP w non-stress IMPRESSION: 1. Total biophysical profile score: 8 2. Persistent dilation of right renal pelvis, 15 mm in width. Electronically authenticated by: ZURI RIVERA Date: 01/28/2024 08:50 Dictated By: Zuri Rivera M.D. Signed By:01/28/24 0852 DD/ 0850 TD/TT: Manager Product Marketing: Robert CONDE [facility] Final Result documented in this encounter Visit Diagnoses Not on filedocumented in this encounter Care Teams International Nurse Relationship Specialty Start Date End Date Ravi Yousif DO [address] [facility] [place] [address] PCP - FFS State [facility] 03/02/24 documented as of this encounter
--- OUTSIDE RECORDS SUMMARY | 2024-11-26 17:53 | XMS_ITS | Encounter Summary ---
Author Organization [facility] Address [address] [facility] [place] [address] Care Team Providers Care Facilities Maintenance Technician Name Role Phone Ravi Yousif DO Unavailable Encounter Details Date Type Department Care Team (Late Contact Info) Description 12/08/2023 Abstract [facility] OB [address] [place] [address] Ravi Yousif [address], [place] [address] Social History Tobacco Use Types Packs/Day Years [...] 03/22/2025 2:00 PM EDT Office Visit [facility] OB [address] [place] [address] Ravi Yousif [address], [facility]11 documented as of this encounter Visit Diagnoses Not on filedocumented in this encounter Care Teams Facilities Maintenance Technician Relationship Specialty Start Date End Date Ravi Yousif DO [address] [place] [address] PCP - FFS State [facility] 03/02/24 documented as of this encounter
--- OUTSIDE RECORDS SUMMARY | 2024-11-26 17:53 | XMS_ITS | Encounter Summary ---
Author Organization [facility] Address [address] [facility] [place] [address] Care Team Providers Care Guard Driver Name Role Phone Ravi Yousif DO Unavailable Encounter Details Date Type Department Care Team (Late Contact Info) Description 12/03/2023 Clinisync Result Encounter [facility] External Department Unsolicited Ravi Yousif, [address], [place] [address] Social History Tobacco Use Types Packs/Day Years [...] 03/22/2025 2:00 PM EDT Office Visit [facility] OB [address] [place] [phone] Ravi Yousif DO [address], [facility]11 documented as of this encounter Procedures Procedure Name Priority Date/Time Associated Diagnosis Comments US OB GROWTH 12/03/2023 3:48 PM EDT documented in this encounter Results * US OB GROWTH (12/03/2023 3:48 PM EDT) Anatomical Region Laterality Modality Other 12/03/2023 3:48 PM EDT Narrative 12/03/2023 3:50 [place] [address] Ultrasound Report Signed Patient: TEODORO HERNANDES MR#: [id number] : 2000 Acct:[id number] Age/Sex: 23 / F ADM Date: 12/03/23 Loc: NOMS Attending Dr: Ravi Yousif D.O. Ordering Physician: Ravi Yousif D.O. Date of Service: 12/03/23 Procedure(s): US OB growth Accession Number(s): [id number] cc: Ravi Yousif D.O.; Physician,Non-Staff M.Junior The [place] [id number] Patient Name: TEODORO HERNANDES MRN: [id number] date: 2000 Sex: F Assigned Patient Location: [facility] Current Patient Location: [facility] Accession/Order Number: [id number] Exam Date: 12/03/2023 14:31 Report Date: 12/03/2023 15:48 At the request of: RAVI YOUSIF Procedure: US OB growth EXAMINATION: US OB growth HISTORY: SIZE INCONSISTENT WITH DATES COMPARISON: Ultrasound OB anatomy 10/01/2023 FINDINGS: Heart Rate: 144 bpm Amniotic Fluid Volume: 14.3 cm Number: 1 Position: CEPHALIC BIOMETRY: BPD: 7.65 cm cm; 30 weeks 5 days; 64.60 %% HC: 28.37 cm cm; 31 weeks 1 day; 52.20 %% AC: 28.57 cm cm; 32 weeks 4 days; >97 %% FL: 5.93 cm cm; 30 weeks 6 days; 65.80 %% EFW: 1920.91 g; 94 % FL/AC: 20.76 FL/BPD: 77.52 HC/AC: 0.99 GESTATIONAL AGE: Age by EDC: 29 weeks 6 days ROGER by EDC: 2024-02-12 Age by US: 30 weeks 6 days ROGER by US: 2024-02-05 US/US OB growth IMPRESSION: 1. Single live intrauterine with growth detailed above. 2. Abdominal circumference is greater than 97th percentile. 3. Prominent renal pelvis bilaterally, 10 mm in width on the right, 5 mm on the left. Electronically authenticated by: TIMA RIVERA Date: 12/03/2023 15:48 Dictated By: Tima Rivera M.D. Signed By: 12/03/23 1550 DD/ 1548 TD/TT: Event Planning Intern: Procedure Note Radiology, Radiologist, MD - 12/03/2023 [place] [address] Ultrasound Report Signed Patient: TEODORO HERNANDES MMR#: [id number] : 2000Acct:[id number] Age/Sex: 23 / FADM Date: 12/03/23 Loc: NOMS Attending Dr: Ravi Yousif D.O. Ordering Physician: Ravi Yousif D.O. Date of Service: 12/03/23 Procedure(s): US OB growth Accession Number(s): [id number] cc: Ravi Yousif D.O.; Physician,Non-Staff Uriel The [place] [id number] Patient Name: TEODORO HERNANDES MRN: [id number] date: 2000 Sex: F Assigned Patient Location: [facility] Current Patient Location: [facility] Accession/Order Number: [id number] Exam Date: 12/03/2023 14:31 Report Date: 12/03/2023 15:48 At the request of: RAVI YOUSIF Procedure: US OB growth EXAMINATION: US OB growth HISTORY: SIZE INCONSISTENT WITH DATES COMPARISON: Ultrasound OB anatomy 10/01/2023 FINDINGS: Heart Rate: 144 bpm Amniotic Fluid Volume: 14.3 cm Number: 1 Position: CEPHALIC BIOMETRY: BPD: 7.65 cm cm; 30 weeks 5 days; 64.60 %% HC: 28.37 cm cm; 31 weeks 1 day; 52.20 %% AC: 28.57 cm cm; 32 weeks 4 days; >97 %% FL: 5.93 cm cm; 30 weeks 6 days; 65.80 %% EFW: 1920.91 g; 94 % FL/AC: 20.76 FL/BPD: 77.52 HC/AC: 0.99 GESTATIONAL AGE: Age by EDC: 29 weeks 6 days ROGER by EDC: 2024-02-12 Age by US: 30 weeks 6 days ROGER by US: 2024-02-05 US/US OB growth IMPRESSION: 1. Single live intrauterine with growth detailed above. 2. Abdominal circumference is greater than 97th percentile. 3. Prominent renal pelvis bilaterally, 10 mm in width on the right, 5 mmon the left. Electronically authenticated by: TIMA RIVERA Date: 12/03/2023 15:48 Dictated By: Tima Rivera M.D. Signed By:12/03/23 1550 DD/ 1548 TD/TT: Event Planning Intern: us Ravi Yousif DO [facility] Final Result documented in this encounter Visit Diagnoses Not on filedocumented in this encounter Care Teams Guard Driver Relationship Specialty Start Date End Date Ravi Yousif DO [address] [place] [address] [place] [address] PCP - FFS State [facility] 03/02/24 documented as of this encounter
--- OUTSIDE RECORDS SUMMARY | 2024-11-26 17:53 | XMS_ITS | Encounter Summary ---
Author Organization [facility] Address [address] [facility] [place] [address] Care Team Providers Care Stock Grader Name Role Phone Ravi Yousif DO Unavailable Encounter Details Date Type Department Care Team (Late Contact Info) Description 02/15/2024 Abstract [facility] OB [address] [place] [address] Ravi Yousif [address], [place] [address] Social History Tobacco Use Types Packs/Day Years [...] 03/22/2025 2:00 PM EDT Office Visit [facility] OB [address] [place] [address] Ravi Yousif [address], [facility]11 documented as of this encounter Visit Diagnoses Not on filedocumented in this encounter Care Teams Stock Grader Relationship Specialty Start Date End Date Ravi Yousif DO [address] [place] [address] PCP - FFS State [facility] 03/02/24 documented as of this encounter
--- OUTSIDE RECORDS SUMMARY | 2024-11-26 17:53 | XMS_ITS | Encounter Summary ---
Author Organization [facility] Address [address] [facility] [place] [address] Care Team Providers Care Food Safety Coordinator Name Role Phone Ravi Yousif DO Unavailable Encounter Details Date Type Department Care Team (Late Contact Info) Description 02/02/2024 Abstract [facility] OB [address] [place] [address] Ravi Yousif [address] [place], [place] [address] Social History Tobacco Use Types Packs/Day Years [...] [facility] OB [address] [place] [address] Ravi Yousif [address] [place], [facility]11 documented as of this encounter Visit Diagnoses Not on filedocumented in this encounter Care Teams Food Safety Coordinator Relationship Specialty Start Date End Date Ravi Yousif DO [address] [place] [address] PCP - FFS State [facility] 03/02/24 documented as of this encounter
--- OUTSIDE RECORDS SUMMARY | 2024-11-26 17:53 | XMS_ITS | Encounter Summary ---
Author Organization [facility] Address [address] [facility] [place] [address] Care Team Providers Care Sanitation Associate Name Role Phone Ravi Yousif DO Unavailable Encounter Details Date Type Department Care Team (Late Contact Info) Description 11/26/2023 Abstract [facility] OB [address] [place] [address] Ravi Yousif [address] [place], [place] [address] Social History Tobacco Use Types Packs/Day Years [...] 03/22/2025 2:00 PM EDT Office Visit [facility] OB [address] [place] [address] Ravi Yousif [address], [facility]11 documented as of this encounter Visit Diagnoses Not on filedocumented in this encounter Care Teams Sanitation Associate Relationship Specialty Start Date End Date Ravi Yousif DO [address] [place] [address] PCP - FFS State [facility] 03/02/24 documented as of this encounter
--- OUTSIDE RECORDS SUMMARY | 2024-11-26 17:53 | XMS_ITS | Clinical Summary ---
Author Organization [facility] Address [address] [place] [address] Care Team Providers Care Front Desk Name Role Phone Ravi Yousif DO Unavailable Allergies No known active allergies Medications desogestrel-ethi nyl estradiol (Apri) 0.15-30 MG-MCG tabletIndication s:6 weeks follow-up ([facility]) Take 1 tablet by mouth Daily 28 tablet 12 03/16/2024 Active Resolved Problems Problem Noted Date Diagnosed Date Resolved Date Polyhydramnios affecting pre gnancy in third trimester ([facility]) 12/24/2023 02/02/2024 Excessive growth affec ting management of mother, antepartum ([facility]) 12/24/2023 02/02/20 24 Family History Medical History Relation Name Comments ADD / ADHD Mother Diabetes Mother Relation Name Status Comments Mother Social History Tobacco Use Types Packs/Day Years Used Date Smoking Tobacco: Never Tobacco Cessation:Counseling Given: Not Answered Alcohol Use Standard Drinks/Week Comments Never 0 (1 standard drink = 0.6 oz pur e alcohol) Comments No Sex and Gender Information Value Date Recorded Sex Assigned at Not on file Legal Sex Female 6:51 PM EDT Gender Identity Not on file Sexual Orientation Not on file Last Filed Vital Signs Vital Sign Reading Time Taken Comments Blood Pressure 116/72 03/16/2024 3:34 PM EDT Pulse - - Temperature - - Respiratory Rate - - Oxygen Saturation - - Inhaled Oxygen Concentration - - Weight 146 kg (322 lb) 03/16/2024 3:34 PM EDT Height - - Body Mass Index - - Plan of Treatment Upcoming Encounters Date Type Department Care Team (Late st Contact Info) Description 03/22/2025 2:00 PM EDT Office Visit [facility] B[facility] OB [address] [place] [address] Ravi Yousif DO [address] [place], [place] [id number] Health Maintenance Due Date Last Done Comments Influenza Vaccine (Season Ended) 2025 Insurance * Guarantor: Celso Upton Account Type Relation to Patient Date of Phone Billing Address Personal/Family Self 2000 [address] [place] [address] MEDICAID [place] Care Teams Front Desk Relationship Specialty Start Date End Date Ravi Yousif DO [address] [place] [address] PCP - FFS State [facility] 03/02/24
--- OUTSIDE RECORDS SUMMARY | 2024-11-26 17:53 | XMS_ITS | Encounter Summary ---
Author Organization [facility] Address [address] [facility] [place] [address] Care Team Providers Care Drop Hammer Setter Up Name Role Phone Ravi Yousif DO Unavailable Encounter Details Date Type Department Care Team (Late Contact Info) Description 02/02/2024 Abstract [facility] OB [address] [place] [address] Ravi Yousif [address] [place], [place] [address] Social History Tobacco Use Types Packs/Day Years [...] 03/22/2025 2:00 PM EDT Office Visit [facility] OB [address] [place] [address] Ravi Yousif [address] [place], [facility]11 documented as of this encounter Visit Diagnoses Not on filedocumented in this encounter Care Teams Drop Hammer Setter Up Relationship Specialty Start Date End Date Ravi Yousif DO [address] [place] [address] PCP - FFS State [facility] 03/02/24 documented as of this encounter
--- OUTSIDE RECORDS SUMMARY | 2024-11-26 17:53 | XMS_ITS | Encounter Summary ---
Author Organization [facility] Address [address] [facility] [place] [address] Care Team Providers Care Stud Sheep Farmer Name Role Phone Ravi Yousif DO Unavailable Encounter Details Date Type Department Care Team (Late Contact Info) Description 02/02/2024 Abstract [facility] OB [address] [place] [address] Ravi Yousif [address] [place], [place] [address] Social History Tobacco Use Types Packs/Day Years [...] 03/22/2025 2:00 PM EDT Office Visit [facility] OB [address] [place] [address] Ravi Yousif [address] [place], [facility]11 documented as of this encounter Visit Diagnoses Not on filedocumented in this encounter Care Teams Stud Sheep Farmer Relationship Specialty Start Date End Date Ravi Yousif DO [address] [place] [address] PCP - FFS State [facility] 03/02/24 documented as of this encounter
--- OUTSIDE RECORDS SUMMARY | 2024-11-26 17:53 | XMS_ITS | Encounter Summary ---
Author Organization [facility] Address [address] [facility] [place] [address] Care Team Providers Care Patient Observation Assistant Name Role Phone Ravi Yousif DO Unavailable Encounter Details Date Type Department Care Team (Late Contact Info) Description 02/04/2024 Abstract [facility] OB [address] [place] [address] Ravi Yousif [address] [place], [place] [address] Social History Tobacco Use Types Packs/Day Years [...] 03/22/2025 2:00 PM EDT Office Visit [facility] OB [address] [place] [address] Ravi Yousif [address] [place], [facility]11 documented as of this encounter Visit Diagnoses Not on filedocumented in this encounter Care Teams Patient Observation Assistant Relationship Specialty Start Date End Date Ravi Yousif DO [address] [place] [address] PCP - FFS State [facility] 03/02/24 documented as of this encounter
--- OUTSIDE RECORDS SUMMARY | 2024-11-26 17:53 | XMS_ITS | Encounter Summary ---
Author Organization [facility] Address [address] [facility] [place] [address] Care Team Providers Care Warehouse Shift Supervisor Name Role Phone Ravi Yousif DO Unavailable Encounter Details Date Type Department Care Team (Late Contact Info) Description 10/02/2023 Clinisync Result Encounter [facility] External Department Unsolicited Ravi Yousif, [address], [place] [address] Social History Tobacco Use Types Packs/Day Years [...] 03/22/2025 2:00 PM EDT Office Visit [facility] OB [address] [place] [phone] Ravi Yousif DO [address] [place], [place] [address] documented as of this encounter Procedures Procedure Name Priority Date/Time Associated Diagnosis Comments US OB CERVICAL LENGTH 10/02/2023 7:30 AM EDT documented in this encounter Results * US OB CERVICAL LENGTH (10/02/2023 7:30 AM EDT) Anatomical Region Laterality Modality Other 10/02/2023 7:30 AM EDT Narrative 10/02/2023 7:32 [place] [address] Ultrasound Report Signed Patient: TEODORO HERNANDES MR#: [id number] : 2000 Acct:[id number] Age/Sex: 23 / F ADM Date: 10/01/23 Loc: US Attending Dr: Ravi Yousif D.O. Ordering Physician: Ravi Yousif D.O. Date of Service: 10/01/23 Procedure(s): US OB cervical length Accession Number(s): [id number] cc: Ravi Yousif D.O.; Physician,Non-Staff M.DChito [place] [id number] Patient Name: TEODORO HERNANDES MRN: [id number] date: 2000 Sex: F Assigned Patient Location: US Current Patient Location: Accession/Order Number: [id number] Exam Date: 10/01/2023 17:10 Report Date: 10/02/2023 07:30 At the request of: RAVI YOUSIF Procedure: US OB cervical length EXAMINATION: US OB anatomy, US OB cervical length HISTORY: screening, , for anatomic survey Z36.89 COMPARISON: No relevant comparison available. TECHNIQUE: Transabdominal sonographic examination was performed for obstetrical and evaluation. FINDINGS: Number: 1 Heart Rate: 147.5 bpm H.B. /min Amniotic Fluid Volume: Subjectively normal position: Breech presentation, variable lie Placental Location: Posterior, grade 0. The placental edge is 5.8 cm from the internal os Cervix Length: 3.6 cm , closed Normal anatomy: Lateral ventricles, cerebellum, posterior fossa, nose, lips, orbits, four-chamber heart, RVOT, LVOT, diaphragm, stomach, kidneys, abdominal cord insertion, bladder, umbilical arteries, three-vessel cord, spine, extremities BIOMETRY: BPD: 4.8 cm 20 weeks 4 days , 37% HC: 18.1 cm 20 weeks 4 days, 26% AC: 16.1 cm 21 weeks 1 days, 54% FL: 3.6 cm 21 weeks 4 days , 67% EFW:409.3 grams; 14 ounces, 66% FL/AC: 22.7 FL/BPD: 75.6 HC/AC: 1.1 GESTATIONAL AGE: Age by EDC: 20 weeks 6 days ROGER by EDC: 02/12/2024 Age by current US: 21 weeks 0 days ROGER by current US: 02/11/2024 US/US OB cervical length IMPRESSION: Normal anatomy scan Closed cervix measuring 3.6 cm in length *Reference: [employer] Practice Guideline for the performance of Obstetric Ultrasound Examinations, March 02, 2007. Electronically authenticated by: LISETTE JIMENEZ Date: 10/02/2023 07:30 Dictated By: Lisette Jimenez M.D. Signed By: 10/02/2332 DD/ 9 TD/TT: Copy Chaser: Procedure Note Radiology, Radiologist, MD - 10/02/2023 [place] [address] Ultrasound Report Signed Patient: TEODORO HERNANDES MMR#: [id number] : 2000Acct:[id number] Age/Sex: 23 / FADM Date: 10/01/23 Loc: US Attending Dr: Ravi Yousif D.O. Ordering Physician: Ravi Yousif D.O. Date of Service: 10/01/23 Procedure(s): US OB cervical length Accession Number(s): [id number] cc: Ravi Yousif D.O.; Physician,Non-Staff Uriel The [address] [address] Patient Name: TEODORO HERNANDES MRN: [id number] date: 2000 Sex: F Assigned Patient Location: US Current Patient Location: Accession/Order Number: [id number] Exam Date: 10/01/2023 17:10 Report Date: 10/02/2023 07:30 At the request of: RAVI YOUSIF Procedure: US OB cervical length EXAMINATION: US OB anatomy, US OB cervical length HISTORY: screening, , for anatomic survey Z36.89 COMPARISON: No relevant comparison available. TECHNIQUE: Transabdominal sonographic examination was performed for obstetrical and evaluation. FINDINGS: Number: 1 Heart Rate: 147.5 bpm H.B. /min Amniotic Fluid Volume: Subjectively normal position: Breech presentation, variable lie Placental Location: Posterior, grade 0. The placental edge is 5.8 cm fromthe internal os Cervix Length: 3.6 cm , closed Normal anatomy: Lateral ventricles, cerebellum, posterior fossa, nose,lips, orbits, four-chamber heart, RVOT, LVOT, diaphragm, stomach, kidneys,abdominal cord insertion, bladder, umbilical arteries, three-vessel cord, spine, extremities BIOMETRY: BPD: 4.8 cm 20 weeks 4 days , 37% HC: 18.1 cm 20 weeks 4 days, 26% AC: 16.1 cm 21 weeks 1 days, 54% FL: 3.6 cm 21 weeks 4 days , 67% EFW:409.3 grams; 14 ounces, 66% FL/AC: 22.7 FL/BPD: 75.6 HC/AC: 1.1 GESTATIONAL AGE: Age by EDC: 20 weeks 6 days ROGER by EDC: 02/12/2024 Age by current US: 21 weeks 0 days ROGER by current US: 02/11/2024 US/US OB cervical length IMPRESSION: Normal anatomy scan Closed cervix measuring 3.6 cm in length *Reference: [employer] Practice Guideline for the performance of Obstetric Ultrasound Examinations, March 02, 2007. Electronically authenticated by: LISETTE JIMENEZ Date: 10/02/2023 07:30 Dictated By: Lisette Jimenez M.D. Signed By:10/02/2332 DD/ 9 TD/TT: Copy Chaser: us Ravi Yousif DO [facility] Final Result documented in this encounter Visit Diagnoses Not on filedocumented in this encounter Care Teams Warehouse Shift Supervisor Relationship Specialty Start Date End Date Ravi Yousif DO [address] [place] [address] [place] [address] PCP - FFS State [facility] 03/02/24 documented as of this encounter
--- OUTSIDE RECORDS SUMMARY | 2024-11-26 17:54 | XMS_ITS | Encounter Summary ---
Author Organization [facility] Address [address] [facility] [place] [address] Care Team Providers Care Assembler Chassis Name Role Phone Ravi Yousif DO Unavailable Encounter Details Date Type Department Care Team (Late Contact Info) Description 07/03/2023 Clinisync Result Encounter [facility] External Department Unsolicited Ravi Yousif, [address] [place] [address] Social History Tobacco Use Types Packs/Day Years Used Date Smoking Tobacco: Never Assessed Comments Yes Sex and Gender Information Value Date Recorded Sex Assigned at Not on file Legal Sex Female 6:51 PM EDT Gender Identity Not on file Sexual Orientation Not on file documented as of this encounter Plan of Treatment Upcoming Encounters Date Type Department Care Team (Late Contact Info) Description 03/22/2025 2:00 PM EDT Office Visit [facility] OB [address] [facility] [address] Ravi Yousif [address] [place], [place] [address] documented as of this encounter Procedures Procedure Name Priority Date/Time Associated Diagnosis Comments US OB TRANSVAGINAL 07/03/2023 1: 34 PM EST documented in this encounter Results * US OB TRANSVAGINAL (07/03/2023 1:34 PM EST) Anatomical Region Laterality Modality Other 07/03/2023 1:34 PM EST Narrative 07/03/2023 1:37 PM EST [address] [address] Ultrasound Report Signed Patient: TEODORO HERNANDES MR#: [id number] : 2000 Acct:[id number] Age/Sex: 23 / F ADM Date: 07/03/23 Loc: NOMS Attending Dr: Ravi Yousif D.O. Ordering Physician: Ravi Yousif D.O. Date of Service: 07/03/23 Procedure(s): US OB transvaginal Accession Number(s): [id number] cc: Ravi Yousif D.O.; Physician,Non-Staff Uriel The [address] [address] Patient Name: TEODORO HERNANDES MRN: [id number] date: 2000 Sex: F Assigned Patient Location: [facility] Current Patient Location: [facility] Accession/Order Number: [id number] Exam Date: 07/03/2023 12:39 Report Date: 07/03/2023 13:34 At the request of: RAVI YOUSIF Procedure: US OB transvaginal EXAMINATION: US OB transvaginal HISTORY: MISSED MENSES COMPARISON: No relevant comparison available. FINDINGS: GESTATIONAL SAC: Present and normal appearing. YOLK SAC: Present and normal appearing. POLE: Present and normal appearing. CARDIAC: Present. UTERUS: Normal size and appearance. OVARIES: Right: Normal. Left: Normal. CERVIX: 4.8 cm in length and closed. CUL-DE-SAC: Normal. OTHER: None. AGE BY LMP: 8 weeks 0 days ROGER BY LMP: 02/12/2024 AGE BY US CRL: 7 weeks 3 days ROGER BY US CRL: 02/16/2024 US/US OB transvaginal IMPRESSION: 1. Single live intrauterine . Electronically authenticated by: ZURI RIVERA Date: 07/03/2023 13:34 Dictated By: Zuri Rivera M.D. Signed By: 07/03/23 1337 DD/ 33 TD/TT: Senior Commissions Analyst: Procedure Note Radiology, Radiologist, MD - 07/03/2023 [place] [address] Ultrasound Report Signed Patient: TEODORO HERNANDES MMR#: [id number] : 2000Acct:[id number] Age/Sex: 23 / FADM Date: 07/03/23 Loc: NOMS Attending Dr: Ravi Yousif D.O. Ordering Physician: Ravi Yousif D.O. Date of Service: 07/03/23 Procedure(s): US OB transvaginal Accession Number(s): [id number] cc: Ravi Yousif D.O.; Physician,Non-Staff Uriel The [place] [id number] Patient Name: TEODORO HERNANDES MRN: [id number] date: 2000 Sex: F Assigned Patient Location: [facility] Current Patient Location: [facility] Accession/Order Number: [id number] Exam Date: 07/03/2023 12:39 Report Date: 07/03/2023 13:34 At the request of: RAVI YOUSIF Procedure: US OB transvaginal EXAMINATION: US OB transvaginal HISTORY: MISSED MENSES COMPARISON: No relevant comparison available. FINDINGS: GESTATIONAL SAC: Present and normal appearing. YOLK SAC: Present and normal appearing. POLE: Present and normal appearing. CARDIAC: Present. UTERUS: Normal size and appearance. OVARIES: Right: Normal. Left: Normal. CERVIX: 4.8 cm in length and closed. CUL-DE-SAC: Normal. OTHER: None. AGE BY LMP: 8 weeks 0 days ROGER BY LMP: 02/12/2024 AGE BY US CRL: 7 weeks 3 days ROGER BY US CRL: 02/16/2024 US/US OB transvaginal IMPRESSION: 1. Single live intrauterine . Electronically authenticated by: ZURI RIVERA Date: 07/03/2023 13:34 Dictated By: Zuri Rivera M.D. Signed By:07/03/23 1337 DD/ 1334 TD/TT: Senior Commissions Analyst: Ravi Yousif DO [facility] Final Result documented in this encounter Visit Diagnoses Not on filedocumented in this encounter Care Teams Assembler Chassis Relationship Specialty Start Date End Date Ravi Yousif DO [address] [place], [place] [address]m[place] [address] PCP - FFS State [facility] 03/02/24 documented as of this encounter
--- OUTSIDE RECORDS SUMMARY | 2024-11-26 17:54 | XMS_ITS | Encounter Summary ---
Author Organization [facility] Address [address] [facility] [place] [address] Care Team Providers Care Bottom Crane Operator Name Role Phone Ravi Yousif DO Unavailable Encounter Details Date Type Department Care Team (Late Contact Info) Description 01/16/2024 Abstract [facility] OB [address] [place] [address] Ravi Yousif [address] [place], [place] [address] Social History Tobacco Use Types Packs/Day Years [...] 03/22/2025 2:00 PM EDT Office Visit [facility] OB [address] [place] [address] Ravi Yousif [address], [facility]11 documented as of this encounter Visit Diagnoses Not on filedocumented in this encounter Care Teams Bottom Crane Operator Relationship Specialty Start Date End Date Ravi Yousif DO [address] [place] [address] PCP - FFS State [facility] 03/02/24 documented as of this encounter
--- OUTSIDE RECORDS SUMMARY | 2024-11-26 17:54 | XMS_ITS | Encounter Summary ---
Author Organization [facility] Address [address] [facility] [place] [address] Care Team Providers Care Barrel Straightener Name Role Phone Ravi Yousif DO Unavailable Encounter Details Date Type Department Care Team (Late Contact Info) Description 01/16/2024 Abstract [facility] OB [address] [place] [address] Ravi Yousif [address] [place], [place] [address] Social History Tobacco Use Types Packs/Day Years [...] 03/22/2025 2:00 PM EDT Office Visit [facility] OB [address] [place] [address] Ravi Yousif [address], [facility] documented as of this encounter Visit Diagnoses Not on filedocumented in this encounter Care Teams Barrel Straightener Relationship Specialty Start Date End Date Ravi Yousif DO [address] [place] [address] PCP - FFS State [facility] 03/02/24 documented as of this encounter
--- OUTSIDE RECORDS SUMMARY | 2024-11-26 17:54 | XMS_ITS | Encounter Summary ---
Author Organization [facility] Address [address] [facility] [place] [address] Care Team Providers Care School Treasurer Name Role Phone Ravi Yousif DO Unavailable Encounter Details Date Type Department Care Team (Late Contact Info) Description 01/07/2024 Clinisync Result Encounter [facility] External Department Unsolicited Ravi Yousif, [address], [place] [address] Social History Tobacco Use Types Packs/Day Years [...] Visit [facility] OB [address] [place] [address] Ravi Yousif DO [address] [place] [phone] documented as of this encounter Procedures Procedure Name Priority Date/Time Associated Diagnosis Comments US OB BPP W NON-STRESS 01/07/2024 6:33 AM EDT documented in this encounter Results * US OB BPP W NON-STRESS (01/07/2024 6:33 AM EDT) Anatomical Region Laterality Modality Other 01/07/2024 6:33 AM EDT Narrative 01/07/2024 6:35 [place] [address] Ultrasound Report Signed Patient: TEODORO HERNANDES MR#: [id number] : 2000 Acct:[id number] Age/Sex: 23 / F ADM Date: 01/06/24 Loc: US Attending Dr: Ravi Yousif D.O. Ordering Physician: Ravi Yousif D.O. Date of Service: 01/06/24 Procedure(s): US OB BPP w non-stress Accession Number(s): [id number] cc: Ravi Yousif D.O.; Physician,Non-Staff M.DChito The [place] [address] Patient Name: TEODORO HERNANDES MRN: [id number] date: 2000 Sex: F Assigned Patient Location: [facility] Current Patient Location: Accession/Order Number: [id number] Exam Date: 01/06/2024 17:09 Report Date: 01/07/2024 06:33 At the request of: RAVI YOUSIF Procedure: US OB BPP w non-stress EXAMINATION: US OB BPP w non-stress HISTORY:POLYHYDRAMNIOS AFFECTING O40.3XX0 COMPARISON: Ultrasound OB biophysical 12/30/2023 TECHNIQUE: Ultrasound biophysical profile was performed in the radiology department. BREATHING MOVEMENTS: 2 GROSS BODY MOVEMENTS: 2 TONE: 2 QUALITATIVE AMNIOTIC FLUID VOLUME: 2 PRESENTATION: CEPHALIC HEART RATE: 151.69 bpm AMNIOTIC FLUID VOLUME: 20.54 cm GESTATIONAL AGE: 34 weeks 5 days US/US OB BPP w non-stress IMPRESSION: 1. Total biophysical profile score: 8 2. Dilated right renal pelvis, possibly up to 15 mm. Follow-up recommended. Electronically authenticated by: TIMA RIVERA Date: 01/07/2024 06:33 Dictated By: Tima Rivera M.D. Signed By: 01/07/24634 DD/ 2 TD/TT: Cuffing Machine Operator: Procedure Note Radiology, Radiologist, - 01/07/2024 [place] [address] Ultrasound Report Signed Patient: TEODORO HERNANDES MMR#: [id number] : 2000Acct:[id number] Age/Sex: 23 / FADM Date: 01/06/24 Loc: US Attending Dr: Ravi Yousif D.O. Ordering Physician: Ravi Yousif D.O. Date of Service: 01/06/24 Procedure(s): US OB BPP w non-stress Accession Number(s): [id number] cc: Ravi Yousif D.O.; Physician,Non-Staff Uriel The [place] [address] Patient Name: TEODORO HERNANDES MRN: [id number] date: 2000 Sex: F Assigned Patient Location: [facility] Current Patient Location: Accession/Order Number: [id number] Exam Date: 01/06/2024 17:09 Report Date: 01/07/2024 06:33 At the request of: RAVI YOUSIF Procedure: US OB BPP w non-stress EXAMINATION: US OB BPP w non-stress HISTORY:POLYHYDRAMNIOS AFFECTING O40.3XX0 COMPARISON: Ultrasound OB biophysical 12/30/2023 TECHNIQUE: Ultrasound biophysical profile was performed in the radiology department. BREATHING MOVEMENTS: 2 GROSS BODY MOVEMENTS: 2 TONE: 2 QUALITATIVE AMNIOTIC FLUID VOLUME: 2 PRESENTATION: CEPHALIC HEART RATE: 151.69 bpm AMNIOTIC FLUID VOLUME: 20.54 cm GESTATIONAL AGE: 34 weeks 5 days US/US OB BPP w non-stress IMPRESSION: 1. Total biophysical profile score: 8 2. Dilated right renal pelvis, possibly up to 15 mm. Follow-uprecommended. Electronically authenticated by: TIMA RIVERA Date: 01/07/2024 06:33 Dictated By: Tima Rivrea M.D. Signed By:01/07/2435 DD/ 2 TD/TT: Cuffing Machine Operator: Ravi Yousif DO [facility] Final Result documented in this encounter Visit Diagnoses Not on filedocumented in this encounter Care Teams School Treasurer Relationship Specialty Start Date End Date Ravi Yousif DO [address] [place] [address] [place] [address] PCP - FFS State [facility] 03/02/24 documented as of this encounter
--- OUTSIDE RECORDS SUMMARY | 2024-11-26 17:54 | XMS_ITS | Encounter Summary ---
Author Organization [facility] Address [address] [facility] [place] [address] Care Team Providers Care Systems Support Officer Name Role Phone Ravi Yousif DO Unavailable Encounter Details Date Type Department Care Team (Late Contact Info) Description 10/02/2023 Clinisync Result Encounter NOMS External Department Unsolicited Ravi Yousif, [facility] Juan [place], [place] [address] Social History Tobacco Use Types Packs/Day Years [...] 03/22/2025 2:00 PM EDT Office Visit [facility] OB [address] [place] [phone] Ravi Yousif DO [address] [place], [place] [address] documented as of this encounter Procedures Procedure Name Priority Date/Time Associated Diagnosis Comments US OB ANATOMY 10/02/2023 7:30 AM EDT documented in this encounter Results * US OB ANATOMY (10/02/2023 7:30 AM EDT) Anatomical Region Laterality Modality Other 10/02/2023 7:30 AM EDT Narrative 10/02/2023 7:33 [place] [address] Ultrasound Report Signed Patient: TEODORO HERNANDES MR#: [id number] : 2000 Acct:[id number] Age/Sex: 23 / F ADM Date: 10/01/23 Loc: US Attending Dr: Ravi Yousif D.O. Ordering Physician: Ravi Yousif D.O. Date of Service: 10/01/23 Procedure(s): US OB anatomy Accession Number(s): [id number] cc: Ravi Yousif D.O.; Physician,Non-Staff M.DChito The [place] [id number] Patient Name: TEODORO HERNANDES MRN: [id number] date: 2000 Sex: F Assigned Patient Location: US Current Patient Location: Accession/Order Number: [id number] Exam Date: 10/01/2023 17:10 Report Date: 10/02/2023 07:30 At the request of: RAVI YOUSIF Procedure: US OB anatomy EXAMINATION: US OB anatomy, US OB cervical [...] ROGER by current US: 02/11/2024 US/US OB anatomy IMPRESSION: Normal anatomy scan Closed cervix measuring 3.6 cm in length *Reference: [employer] Practice Guideline for the performance of Obstetric Ultrasound Examinations, March 02, 2007. Electronically authenticated by: LISETTE JIMENEZ Date: 10/02/2023 07:30 Dictated By: Lisette Jimenez M.D. Signed By: 10/02/2333 DD/ 9 TD/TT: Woodworking Shop Laborer: Procedure Note Radiology, Radiologist, MD - 10/02/2023 [place] [address] Ultrasound Report Signed Patient: TEODORO HERNANDES MMR#: [id number] : 2000Acct:[id number] Age/Sex: 23 / FADM Date: 10/01/23 Loc: US Attending Dr: Ravi Yousif D.O. Ordering Physician: Ravi Yousif D.O. Date of Service: 10/01/23 Procedure(s): US OB anatomy Accession Number(s): [id number] cc: Ravi Yousif D.O.; Physician,Non-Staff Uriel The [address] [address] Patient Name: TEODORO HERNANDES MRN: [id number] date: 2000 Sex: F Assigned Patient Location: US Current Patient Location: Accession/Order Number: [id number] Exam Date: 10/01/2023 17:10 Report Date: 10/02/2023 07:30 At the request of: RAVI YOUSIF Procedure: US OB anatomy EXAMINATION: US OB anatomy, US OB cervical [...] ROGER by current US: 02/11/2024 US/US OB anatomy IMPRESSION: Normal anatomy scan Closed cervix measuring 3.6 cm in length *Reference: [employer] Practice Guideline for the performance of Obstetric Ultrasound Examinations, March 02, 2007. Electronically authenticated by: LISETTE JIMENEZ Date: 10/02/2023 07:30 Dictated By: Lisette Jimenez M.D. Signed By:10/02/23 0733 DD/ TD/TT: Woodworking Shop Laborer: us Ravi Yousif DO [facility] Final Result documented in this encounter Visit Diagnoses Not on filedocumented in this encounter Care Teams Systems Support Officer Relationship Specialty Start Date End Date Ravi Yousif DO [address] [place] [address] [place] [address] PCP - FFS State [facility] 03/02/24 documented as of this encounter
--- OUTSIDE RECORDS SUMMARY | 2024-11-26 17:54 | XMS_ITS | Encounter Summary ---
Author Organization [facility] Address [address] [facility] [place] [address] Care Team Providers Care Sewer Pipe Layer Name Role Phone Ravi Yousif DO Unavailable Encounter Details Date Type Department Care Team (Late Contact Info) Description 01/14/2024 Clinisync Result Encounter [facility] External Department Unsolicited Halima Cullen PA [address] [facility] [address] [place], [place] [address] Social History Tobacco Use Types Packs/Day Years [...] EDT Office Visit [facility] BCP OB [address] [place] [address] Ravi Yousif DO [address], [facility]11 documented as of this encounter Procedures Procedure Name Priority Date/Time Associated Diagnosis Comments [facility] BOX TEST SENT OUT Routine 01/14/2024 3:59 PM EDT US OB BPP W NON-STRESS 01/14/2024 7:18 AM EDT documented in this encounter Results * [facility] BOX TEST SENT OUT (01/14/2024 3:59 PM EDT) BOX TEST SENT OUT [facility] Comment: See Scanned Report. 01/30/24 TEST NOT PERFORMED BY [facility]. --- 01/30/24 1057 --- BOX Test Sent previously reported as: See Scanned Report. 01/14/2024 3:59 PM EDT 01/15/2024 8:35 AM EDT Narrative [facility] - 01/30/2024 10:57 AM EDT GROUP B STREP SENT TO [facility] Ravi Benja DO [facility] Edited Result - Final [facility] * US OB BPP W NON-STRESS (01/14/2024 7:18 AM EDT) Anatomical Region Laterality Modality Other 01/14/2024 7:18 AM EDT Narrative 01/14/2024 7:21 AM EDT [address] [address] Ultrasound Report Signed Patient: TEODORO HERNANDES MR#: [id number] : 2000 Acct:[id number] Age/Sex: 23 / F ADM Date: 01/13/24 Loc: US Attending Dr: Halima Cullen Ordering Physician: Halima Cullen Date of Service: 01/13/24 Procedure(s): US OB BPP w non-stress Accession Number(s): [id number] cc: Halima Cullen; Physician,Non-Staff M.DChito The [address] [address] Patient Name: TEODORO HERNANDES MRN: [facility]:[id number] date: 2000 Sex: F Assigned Patient Location: US Current Patient Location: US Accession/Order Number: [id number] Exam Date: 01/13/2024 17:59 Report Date: 01/14/2024 07:18 At the request of: HALIMA CULLEN Procedure: US OB BPP w non-stress EXAMINATION: US OB BPP w non-stress HISTORY: POLYHYDRAMINOS AFFECTING O40.3XX0 COMPARISON: 07/08/2023 TECHNIQUE: Ultrasound biophysical profile was performed in the radiology department. non-reactive stress testing was performed by nursing staff in the birthing center. FINDINGS: BREATHING MOVEMENTS: 2 GROSS BODY MOVEMENTS: 2 TONE: 2 QUALITATIVE AMNIOTIC FLUID VOLUME: 2 PRESENTATION: CEPHALIC HEART RATE: 150.84 bpm AMNIOTIC FLUID VOLUME: 20.5 cm GESTATIONAL AGE: 35 weeks 5 days Dilation of the right renal pelvis measuring 1.2 cm US/US OB BPP w non-stress IMPRESSION: Total biophysical profile score: 8 Right renal pelviectasis Electronically authenticated by: LISETTE JIMENEZ Date: 01/14/2024 07:18 Dictated By: Lisette Jimenez M.D. Signed By: 01/14/24720 DD/ 7 TD/TT: Ore Puncher: Procedure Note Radiology, Radiologist, MD - 01/14/2024 [place] [address] Ultrasound Report Signed Patient: TEODORO HERNANDES MMR#: [id number] : 2000Acct:[id number] Age/Sex: 23 / FADM Date: 01/13/24 Loc: US Attending Dr: Halima Cullen Ordering Physician: Halima Cullen Date of Service: 01/13/24 Procedure(s): US OB BPP w non-stress Accession Number(s): [id number] cc: Halima Cullen; Physician,Non-Staff Uriel The [address] [address] Patient Name: TEODORO HERNANDES MRN: [id number]:[id number] date: 2000 Sex: F Assigned Patient Location: US Current Patient Location: US Accession/Order Number: [id number] Exam Date: 01/13/2024 17:59 Report Date: 01/14/2024 07:18 At the request of: HALIMA CULLEN Procedure: US OB BPP w non-stress EXAMINATION: US OB BPP w non-stress HISTORY: POLYHYDRAMINOS AFFECTING O40.3XX0 COMPARISON: 07/08/2023 TECHNIQUE: Ultrasound biophysical profile was performed in the radiology department. non-reactive stress testing was performed by nursingstaff in the birthing center. FINDINGS: BREATHING MOVEMENTS: 2 GROSS BODY MOVEMENTS: 2 TONE: 2 QUALITATIVE AMNIOTIC FLUID VOLUME: 2 PRESENTATION: CEPHALIC HEART RATE: 150.84 bpm AMNIOTIC FLUID VOLUME: 20.5 cm GESTATIONAL AGE: 35 weeks 5 days Dilation of the right renal pelvis measuring 1.2 cm US/US OB BPP w non-stress IMPRESSION: Total biophysical profile score: 8 Right renal pelviectasis Electronically authenticated by: LISETTE JIMENEZ Date: 01/14/2024 07:18 Dictated By: Lisette Jimenez M.D. Signed By:01/14/2421 DD/ 7 TD/TT: Ore Puncher: us Halima CONDE [facility] Final Result documented in this encounter Visit Diagnoses Not on filedocumented in this encounter Care Teams Sewer Pipe Layer Relationship Specialty Start Date End Date Ravi Yousif DO [address] [place] [address] PCP - FFS State PAWN SHOP KEEPER 03/02/24 documented as of this encounter
--- OUTSIDE RECORDS SUMMARY | 2024-11-26 17:54 | XMS_ITS | Encounter Summary ---
Author Organization [facility] Address [address] [facility] [place] [address] Care Team Providers Care Brand Activation Manager Name Role Phone Ravi Yousif DO Unavailable Encounter Details Date Type Department Care Team (Late Contact Info) Description 12/24/2023 Clinisync Result Encounter [facility] External Department Unsolicited Ravi Yousif, [address], [place] [address] Social History Tobacco Use Types Packs/Day Years [...] Visit [facility] BCP OB [address] [place] [phone] Ravi Yousif DO [address], [facility]11 documented as of this encounter Procedures Procedure Name Priority Date/Time Associated Diagnosis Comments US OB GROWTH 12/24/2023 4:15 PM EDT documented in this encounter Results * US OB GROWTH (12/24/2023 4:15 PM EDT) Anatomical Region Laterality Modality Other 12/24/2023 4:15 PM EDT Narrative 12/24/2023 4:18 [place] [address] Ultrasound Report Signed Patient: TEODORO HERNANDES MR#: [id number] : 2000 Acct:[id number] Age/Sex: 23 / F ADM Date: 12/24/23 Loc: NOMS Attending Dr: Ravi Yousif D.O. Ordering Physician: Ravi Yousif D.O. Date of Service: 12/24/23 Procedure(s): US OB growth Accession Number(s): [id number] cc: Ravi Yousif D.O.; Physician,Non-Staff M.Junior The [place] [id number] Patient Name: TEODORO HERNANDES MRN: [id number] date: 2000 Sex: F Assigned Patient Location: [facility] Current Patient Location: [facility] Accession/Order Number: [id number] Exam Date: 12/24/2023 15:05 Report Date: 12/24/2023 16:15 At the request of: RAVI YOUSIF Procedure: US OB growth EXAMINATION: US OB growth HISTORY: LARGE FOR GESTATIONAL AGE COMPARISON: No relevant comparison available. FINDINGS: Heart Rate: 143 bpm Amniotic Fluid Volume: 25.2 cm, largest pocket 5.6cm Number: 1 Position: Cephalic presentation, longitudinal lie BIOMETRY: BPD: 8.57 cm; 34w4d; 87.30 % HC: 32.04 cm; 36w1d; 90.30 % AC: 32.38 cm; 36w2d; >97 % FL: 7.13 cm; 36w4d; >97 % EFW: 2683.14 g; >97 %, 6 lb 5 oz FL/AC: 22.02 FL/BPD: 83.20 HC/AC: 0.99 GESTATIONAL AGE: Age by EDC: 32w6d ROGER by EDC: 2024-02-12 Age by US: 35w6d ROGER by US: 2024-01-22 US/US OB growth IMPRESSION: Large for gestational age, estimated weight > 97% Electronically authenticated by: LISETTE JIMENEZ Date: 12/24/2023 16:15 Dictated By: Lisette Jimenez M.D. Signed By: 12/24/238 DD/ 14 TD/TT: Digital Media Analyst: Procedure Note Radiology, Radiologist, MD - 12/24/2023 [place] [address] Ultrasound Report Signed Patient: TEODORO HERNANDES MMR#: [id number] : 2000Acct:[id number] Age/Sex: 23 / FADM Date: 12/24/23 Loc: NOMS Attending Dr: Ravi Yousif D.O. Ordering Physician: Ravi Yousif D.O. Date of Service: 12/24/23 Procedure(s): US OB growth Accession Number(s): [id number] cc: Ravi Yousif D.O.; Physician,Non-Staff Uriel The [address] [address] Patient Name: TEODORO HERNANDES MRN: [id number] date: 2000 Sex: F Assigned Patient Location: [facility] Current Patient Location: [facility] Accession/Order Number: [id number] Exam Date: 12/24/2023 15:05 Report Date: 12/24/2023 16:15 At the request of: RAVI YOUSIF Procedure: US OB growth EXAMINATION: US OB growth HISTORY: LARGE FOR GESTATIONAL AGE COMPARISON: No relevant comparison available. FINDINGS: Heart Rate: 143 bpm Amniotic Fluid Volume: 25.2 cm, largest pocket 5.6cm Number: 1 Position: Cephalic presentation, longitudinal lie BIOMETRY: BPD: 8.57 cm; 34w4d; 87.30 % HC: 32.04 cm; 36w1d; 90.30 % AC: 32.38 cm; 36w2d; >97 % FL: 7.13 cm; 36w4d; >97 % EFW: 2683.14 g; >97 %, 6 lb 5 oz FL/AC: 22.02 FL/BPD: 83.20 HC/AC: 0.99 GESTATIONAL AGE: Age by EDC: 32w6d ROGER by EDC: 2024-02-12 Age by US: 35w6d ROGER by US: 2024-01-22 US/US OB growth IMPRESSION: Large for gestational age, estimated weight > 97% Electronically authenticated by: LISETTE JIMENEZ Date: 12/24/2023 16:15 Dictated By: Lisette Jimenez M.D. Signed By:12/24/23 1618 DD/ 14 TD/TT: Digital Media Analyst: Ravi Yousif DO [facility] Final Result documented in this encounter Visit Diagnoses Not on filedocumented in this encounter Care Teams Brand Activation Manager Relationship Specialty Start Date End Date Ravi Yousif DO [address] [place] [address] [place] [address] PCP - FFS State SIDE SEAM ENVELOPE MACHINE OPERATOR 03/02/24 documented as of this encounter
--- OUTSIDE RECORDS SUMMARY | 2024-11-26 17:54 | XMS_ITS | Encounter Summary ---
Author Organization [facility] Address [address] [facility] [place] [address] Care Team Providers Care Wreath And Garland Maker Name Role Phone Ravi Yousif DO Unavailable Encounter Details Date Type Department Care Team (Late Contact Info) Description 01/08/2024 Clinisync Result Encounter [facility]OMS External Department Unsolicited Halima Cullen PA [address] [facility] [address] [place], [place] [address] Social History Tobacco Use Types Packs/Day Years [...] 03/22/2025 2:00 PM EDT Office Visit [facility] OB [address] [facility] [place] [address] Ravi Yousif DO [address] [place] [place], [facility]11 documented as of this encounter Procedures Procedure Name Priority Date/Time Associated Diagnosis Comments US OB GROWTH 01/08/2024 2:05 PM EDT documented in this encounter Results * US OB GROWTH (01/08/2024 2:05 PM EDT) Anatomical Region Laterality Modality Other 01/08/2024 2:05 PM EDT Narrative 01/08/2024 2:08 PM EDT [address] [address] Ultrasound Report Signed Patient: TEODORO HERNANDES MR#: [id number] : 2000 Acct:[id number] Age/Sex: 23 / F ADM Date: 01/08/24 [facility]: Halima Cullen Ordering Physician: Halima Cullen Date of Service: 01/08/24 Procedure(s): US OB growth Accession Number(s): [id number] cc: Halima Cullen; Physician,Non-Staff M.DChito The [address] [address] Patient Name: TEODORO HERNANDES MRN: [id number] date: 2000 Sex: F Assigned Patient Location: [facility] Current Patient Location: [facility] Accession/Order Number: [id number] Exam Date: 01/08/2024 11:09 Report Date: 01/08/2024 14:05 At the request of: HALIMA CULLEN Procedure: US OB growth EXAMINATION: US OB growth HISTORY: LARGE GESTATIONAL AGE COMPARISON: 12/24/2023 FINDINGS: Heart Rate: 169 bpm Amniotic Fluid Volume: 22.0 cm. Largest fluid pocket: 5.9 cm Number: 1 Position: Cephalic presentation, longitudinal lie BIOMETRY: BPD: 8.81 cm; 35 weeks 4 days; 69.80 % HC: 33.60 cm; 38 weeks 3 days; 92 % AC: 34.38 cm; 38 weeks 2 days; >97 % FL: 7.39 cm; 37 weeks 6 days; 95.90 % EFW: 3113.86 g; >97 %, 7 lbs. 5 oz. FL/AC: 21.50 FL/BPD: 83.88 HC/AC: 0.98 GESTATIONAL AGE: Age by EDC: 35 weeks 0 days ROGER by EDC: 2024-02-12 Age by US: 37 weeks 4 days ROGER by US: 2024-01-25 Other: Dilation of a single renal pelvis is a 1.4 cm US/US OB growth IMPRESSION: Large for gestational age. Estimated weight greater than the 97th percentile Dilated renal pelvis measuring 1.4 cm Electronically authenticated by: LISETTE JIMENEZ Date: 01/08/2024 14:05 Dictated By: Lisette Jimenez M.D. Signed By: 01/08/24 1408 DD/ 1405 TD/TT: District Scout Executive: Procedure Note Radiology, Radiologist, MD - 01/08/2024 [place] [address] Ultrasound Report Signed Patient: TEODORO HERNANDES MMR#: [id number] : 2000Acct:[id number] Age/Sex: 23 / FADM Date: 01/08/24 Loc: [facility] Attending Dr: Halima Cullen Ordering Physician: Halima Cullen Date of Service: 01/08/24 Procedure(s): US OB growth Accession Number(s): [id number] cc: Halima Cullen; Physician,Non-Staff Uriel The [address] [address] Patient Name: TEODORO HERNANDES MRN: [id number] date: 2000 Sex: F Assigned Patient Location: [facility] Current Patient Location: [facility] Accession/Order Number: [id number] Exam Date: 01/08/2024 11:09 Report Date: 01/08/2024 14:05 At the request of: HALIMA CULLEN Procedure: US OB growth EXAMINATION: US OB growth HISTORY: LARGE GESTATIONAL AGE COMPARISON: 12/24/2023 FINDINGS: Heart Rate: 169 bpm Amniotic Fluid Volume: 22.0 cm. Largest fluid pocket: 5.9 cm Number: 1 Position: Cephalic presentation, longitudinal lie BIOMETRY: BPD: 8.81 cm; 35 weeks 4 days; 69.80 % HC: 33.60 cm; 38 weeks 3 days; 92 % AC: 34.38 cm; 38 weeks 2 days; >97 % FL: 7.39 cm; 37 weeks 6 days; 95.90 % EFW: 3113.86 g; >97 %, 7 lbs. 5 oz. FL/AC: 21.50 FL/BPD: 83.88 HC/AC: 0.98 GESTATIONAL AGE: Age by EDC: 35 weeks 0 days ROGER by EDC: 2024-02-12 Age by US: 37 weeks 4 days ROGER by US: 2024-01-25 Other: Dilation of a single renal pelvis is a 1.4 cm US/US OB growth IMPRESSION: Large for gestational age. Estimated weight greater than the 97th percentile Dilated renal pelvis measuring 1.4 cm Electronically authenticated by: LISETTE JIMENEZ Date: 01/08/2024 14:05 Dictated By: Lisette Jimenez M.D. Signed By:01/08/24 1408 DD/ 1405 TD/TT: District Scout Executive: us Halima CONDE [facility] Final Result documented in this encounter Visit Diagnoses Not on filedocumented in this encounter Care Teams Wreath And Garland Maker Relationship Specialty Start Date End Date Ravi Yousif DO [address] [place] [address] PCP - FFS State [facility] 03/02/24 documented as of this encounter
--- OUTSIDE RECORDS SUMMARY | 2024-11-26 17:54 | XMS_ITS | Encounter Summary ---
Author Organization [facility] Address [address] [facility] [place] [address] Care Team Providers Care Supervisor Loading Name Role Phone Ravi Yousif DO Unavailable Encounter Details Date Type Department Care Team (Late Contact Info) Description 12/30/2023 Clinisync Result Encounter [facility]OM[facility] External Department Unsolicited Robert Cullen PA [address] [facility] [address] [place], [place] [address] Social History Tobacco Use Types Packs/Day Years [...] EDT Office Visit [facility] BCP OB [address] [facility] [address] Ravi Yousif DO [address] [place], [facility]11 documented as of this encounter Procedures Procedure Name Priority Date/Time Associated Diagnosis Comments US OB BPP W NON-STRESS 12/30/2023 8:55 AM EDT documented in this encounter Results * US OB BPP W NON-STRESS (12/30/2023 8:55 AM EDT) Anatomical Region Laterality Modality Other 12/30/2023 8:55 AM EDT Narrative 12/30/2023 8:58 [place] [address] Ultrasound Report Signed Patient: TEODORO HERNANDES MR#: [id number] : 2000 Acct:[id number] Age/Sex: 23 / F ADM Date: 12/30/23 Loc: US Attending Dr: Robert Cullen Ordering Physician: Robert Cullen Date of Service: 12/30/23 Procedure(s): US OB BPP w non-stress Accession Number(s): [id number] cc: Robert Cullen; Physician,Non-Staff M.Junior The [place] [id number] Patient Name: TEODORO HERNANDES MRN: [id number] date: 2000 Sex: F Assigned Patient Location: US Current Patient Location: US Accession/Order Number: [id number] Exam Date: 12/30/2023 08:10 Report Date: 12/30/2023 08:55 At the request of: ROBERT CULLEN Procedure: US OB BPP w non-stress EXAMINATION: US OB BPP w non-stress HISTORY: Polyhydraminos O40.3XX0 COMPARISON: No relevant comparison available. TECHNIQUE: Ultrasound biophysical profile was performed in the radiology department. non-reactive stress testing was performed by nursing staff in the birthing center. FINDINGS: BREATHING MOVEMENTS: 2 GROSS BODY MOVEMENTS: 2 TONE: 2 QUALITATIVE AMNIOTIC FLUID VOLUME: 2 PRESENTATION: CEPHALIC HEART RATE: 141.36 bpm AMNIOTIC FLUID VOLUME: 23.6 cm GESTATIONAL AGE: 33 weeks 5 days US/US OB BPP w non-stress IMPRESSION: Total biophysical profile score: 8 Electronically authenticated by: LISETTE JIMENEZ Date: 12/30/2023 08:55 Dictated By: Lisette Jimenez M.D. Signed By: 12/30/2358 DD/ 4 TD/TT: Drawing Frame Tender: Procedure Note Radiology, Radiologist, - 12/30/2023 [place] [address] Ultrasound Report Signed Patient: TEODORO HERNANDES MMR#: [id number] : 2000Acct:[id number] Age/Sex: 23 / FADM Date: 12/30/23 Loc: US Attending Dr: Robert Cullen Ordering Physician: Robert Cullen Date of Service: 12/30/23 Procedure(s): US OB BPP w non-stress Accession Number(s): [id number] cc: Robert Cullen; Physician,Non-Staff Uriel The [place] [id number] Patient Name: TEODORO HERNANDES MRN: [id number] date: 2000 Sex: F Assigned Patient Location: US Current Patient Location: US Accession/Order Number: [id number] Exam Date: 12/30/2023 08:10 Report Date: 12/30/2023 08:55 At the request of: ROBERT CULLEN Procedure: US OB BPP w non-stress EXAMINATION: US OB BPP w non-stress HISTORY: Polyhydraminos O40.3XX0 COMPARISON: No relevant comparison available. TECHNIQUE: Ultrasound biophysical profile was performed in the radiology department. non-reactive stress testing was performed by nursingstaff in the birthing center. FINDINGS: BREATHING MOVEMENTS: 2 GROSS BODY MOVEMENTS: 2 TONE: 2 QUALITATIVE AMNIOTIC FLUID VOLUME: 2 PRESENTATION: CEPHALIC HEART RATE: 141.36 bpm AMNIOTIC FLUID VOLUME: 23.6 cm GESTATIONAL AGE: 33 weeks 5 days US/US OB BPP w non-stress IMPRESSION: Total biophysical profile score: 8 Electronically authenticated by: LISETTE JIMENEZ Date: 12/30/2023 08:55 Dictated By: Lisette Jimenez M.D. Signed By:12/30/23 0858 DD/ 4 TD/TT: Drawing Frame Tender: us Robert CONDE [facility] Final Result documented in this encounter Visit Diagnoses Not on filedocumented in this encounter Care Teams Supervisor Loading Relationship Specialty Start Date End Date Ravi Yousif DO [address] [place] [address] PCP - FFS State INDUSTRIAL SALES ENGINEER 03/02/24 documented as of this encounter
--- OUTSIDE RECORDS SUMMARY | 2024-11-26 17:54 | XMS_ITS | Encounter Summary ---
Author Organization [facility] Address [address] [facility] [place] [address] Care Team Providers Care Acid Bath Mixer Name Role Phone Ravi Yousif DO Unavailable Encounter Details Date Type Department Care Team (Late Contact Info) Description 01/21/2024 Clinisync Result Encounter NOMS External Department Unsolicited Robert Cullen PA [address] [facility] [address] [place], [place] [address] Social History Tobacco Use Types Packs/Day Years [...] Visit [facility] BCP OB [address] [place] [address] Ravi Yousif DO [address] [place] [place], [facility]11 documented as of this encounter Procedures Procedure Name Priority Date/Time Associated Diagnosis Comments US OB BPP W NON-STRESS 01/21/2024 6:20 AM EDT documented in this encounter Results * US OB BPP W NON-STRESS (01/21/2024 6:20 AM EDT) Anatomical Region Laterality Modality Other 01/21/2024 6:20 AM EDT Narrative 01/21/2024 6:22 [place] [address] Ultrasound Report Signed Patient: TEODORO HERNANDES MR#: [id number] : 2000 Acct:[id number] Age/Sex: 23 / F ADM Date: 01/20/24 Loc: US Attending Dr: Robert Cullen Ordering Physician: Robert Cullen Date of Service: 01/20/24 Procedure(s): US OB BPP w non-stress Accession Number(s): [id number] cc: Robert Cullen; Physician,Non-Staff M.D. The [place] [id number] Patient Name: TEODORO HERNANDES MRN: [id number] date: 2000 Sex: F Assigned Patient Location: [facility] Current Patient Location: Accession/Order Number: [id number] Exam Date: 01/20/2024 16:13 Report Date: 01/21/2024 06:20 At the request of: ROBERT CULLEN Procedure: US OB BPP w non-stress EXAMINATION: US OB BPP w non-stress HISTORY:EXCESSIVE GROWTH AFFECTING O40.3XX0 COMPARISON: Ultrasound OB biophysical 01/13/2024 TECHNIQUE: Ultrasound biophysical profile was performed in the radiology department. BREATHING MOVEMENTS: 2 GROSS BODY MOVEMENTS: 2 TONE: 2 QUALITATIVE AMNIOTIC FLUID VOLUME: 2 PRESENTATION: CEPHALIC HEART RATE: 142.86 bpm AMNIOTIC FLUID VOLUME: 16.38 cm GESTATIONAL AGE: 36 weeks 5 days US/US OB BPP w non-stress IMPRESSION: 1. Total biophysical profile score: 8 2. Persistent, stable dilated right renal pelvis, 12 mm. Electronically authenticated by: ZURI RIVERA Date: 01/21/2024 06:20 Dictated By: Zuri Rivera M.D. Signed By: 01/21/24621 DD/ 9 TD/TT: Land Law Examiner: Procedure Note Radiology, Radiologist, - 01/21/2024 [place] [address] Ultrasound Report Signed Patient: TEODORO HERNANDES MMR#: [id number] : 2000Acct:[id number] Age/Sex: 23 / FADM Date: 01/20/24 Loc: US Attending Dr: Robert Cullen Ordering Physician: Robert Cullen Date of Service: 01/20/24 Procedure(s): US OB BPP w non-stress Accession Number(s): [id number] cc: Robert Cullen; Physician,Non-Staff Uriel The [place] [address] Patient Name: TEODORO HERNANDES MRN: [id number] date: 2000 Sex: F Assigned Patient Location: [facility] Current Patient Location: Accession/Order Number: [id number] Exam Date: 01/20/2024 16:13 Report Date: 01/21/2024 06:20 At the request of: ROBERT CULLEN Procedure: US OB BPP w non-stress EXAMINATION: US OB BPP w non-stress HISTORY:EXCESSIVE GROWTH AFFECTING O40.3XX0 COMPARISON: Ultrasound OB biophysical 01/13/2024 TECHNIQUE: Ultrasound biophysical profile was performed in the radiology department. BREATHING MOVEMENTS: 2 GROSS BODY MOVEMENTS: 2 TONE: 2 QUALITATIVE AMNIOTIC FLUID VOLUME: 2 PRESENTATION: CEPHALIC HEART RATE: 142.86 bpm AMNIOTIC FLUID VOLUME: 16.38 cm GESTATIONAL AGE: 36 weeks 5 days US/US OB BPP w non-stress IMPRESSION: 1. Total biophysical profile score: 8 2. Persistent, stable dilated right renal pelvis, 12 mm. Electronically authenticated by: ZURI RIVERA Date: 01/21/2024 06:20 Dictated By: Zuri Rivera M.D. Signed By:01/21/24621 DD/ 0620 TD/TT: Land Law Examiner: Robert CONDE [facility] Final Result documented in this encounter Visit Diagnoses Not on filedocumented in this encounter Care Teams Acid Bath Mixer Relationship Specialty Start Date End Date Ravi Yousif DO [address] [facility] [place] [address] PCP - FFS State YARD HOSTLER 03/02/24 documented as of this encounter
--- OUTSIDE RECORDS SUMMARY | 2024-11-26 17:54 | XMS_ITS | Encounter Summary ---
Author Organization [facility] Address [address] [facility] [place] [address] Care Team Providers Care Tannery Gummer Name Role Phone Ravi Yousif DO Unavailable Encounter Details Date Type Department Care Team (Late Contact Info) Description 07/19/2023 Clinisync Result Encounter [facility] External [facility] Unsolicited Ravi Yousif, [address], [place] [address] Social History Tobacco Use Types Packs/Day Years [...] Visit [facility] [place] [address] [place] [phone] Ravi Yousif DO [address] [place] [id number] documented as of this encounter Procedures Procedure Name Priority Date/Time Associated Diagnosis Comments US OB L= 14 WEEKS FETUS 07/19/2023 4:13 AM EST documented in this encounter Results * US OB L= 14 WEEKS FETUS (07/19/2023 4:13 AM EST) Anatomical Region Laterality Modality Other 07/19/2023 4:13 AM EST Narrative 07/19/2023 4:15 AM EST [address] [address] Ultrasound Report Signed Patient: TEODORO HERNANDES MR#: [id number] : 2000 Acct:[id number] Age/Sex: 23 / F ADM Date: 07/18/23 Loc: US Attending Dr: Ravi Yousif D.O. Ordering Physician: Ravi Yousif D.O. Date of Service: 07/18/23 Procedure(s): US OB <= 14 weeks fetus Accession Number(s): [id number] cc: Ravi Yousif D.O.; Physician,Non-Staff M.DChito The [address] [address] Patient Name: TEODORO HERNANDES MRN: [id number] date: 2000 Sex: F Assigned Patient Location: US Current Patient Location: Accession/Order Number: [id number] Exam Date: 07/18/2023 16:30 Report Date: 07/19/2023 04:13 At the request of: RAVI YOUSIF Procedure: US OB <= 14 weeks fetus EXAMINATION: US OB <= 14 weeks fetus HISTORY: with uncertain viability O36.8X0 ; vaginal bleeding COMPARISON: 07/03/2023 ultrasound OB transvaginal FINDINGS: GESTATIONAL SAC: Present and normal appearing. YOLK SAC: Present and normal appearing. POLE: Present and normal appearing. CARDIAC: Present. UTERUS: Normal size and appearance. OVARIES: Right: Normal. Left: Not seen. CERVIX: 4.7 cm in length and closed. CUL-DE-SAC: Normal. OTHER: None. AGE BY LMP: 10 weeks 1 day ROGER BY LMP: 02/12/2024 AGE BY US CRL: 9 weeks 6 days ROGER BY US CRL: 02/14/2024 US/US OB <= 14 weeks fetus IMPRESSION: 1. Single live intrauterine . No findings to suggest impending . Electronically authenticated by: TIMA RIVERA Date: 07/19/2023 04:13 Dictated By: Tima Rivera M.D. Signed By: 07/19/235 DD/ 2 TD/TT: Family Practice Nurse Practitioner: Procedure Note Radiology, Radiologist, MD - 07/19/2023 [place] [address] Ultrasound Report Signed Patient: TEODORO HERNANDES MMR#: [id number] : 2000Acct:[id number] Age/Sex: 23 / FADM Date: 07/18/23 Loc: US Attending Dr: Ravi Yousif D.O. Ordering Physician: Ravi Yousif D.O. Date of Service: 07/18/23 Procedure(s): US OB <= 14 weeks fetus Accession Number(s): [id number] cc: Ravi Yousif D.O.; Physician,Non-Staff [facility] [place] [phone] Patient Name: TEODORO HERNANDES MRN: [id number] date: 2000 Sex: F Assigned Patient Location: Current Patient Location: Accession/Order Number: [id number] Exam Date: 07/18/2023 16:30 Report Date: 07/19/2023 04:13 At the request of: RAVI YOUSIF Procedure: US OB <= 14 weeks fetus EXAMINATION: US OB <= 14 weeks fetus HISTORY: with uncertain viability O36.8X0 ; vaginalbleeding COMPARISON: 07/03/2023 ultrasound OB transvaginal FINDINGS: GESTATIONAL SAC: Present and normal appearing. YOLK SAC: Present and normal appearing. POLE: Present and normal appearing. CARDIAC: Present. UTERUS: Normal size and appearance. OVARIES: Right: Normal. Left: Not seen. CERVIX: 4.7 cm in length and closed. CUL-DE-SAC: Normal. OTHER: None. AGE BY LMP: 10 weeks 1 day ROGER BY LMP: 02/12/2024 AGE BY US CRL: 9 weeks 6 days ROGER BY US CRL: 02/14/2024 US/US OB <= 14 weeks fetus IMPRESSION: 1. Single live intrauterine . No findings to suggest impending . Electronically authenticated by: TIMA RIVERA Date: 07/19/2023 04:13 Dictated By: Tima Rivera M.D. Signed By:07/19/235 DD/ 2 TD/TT: Family Practice Nurse Practitioner: us Ravi Yousif DO [facility] Final Result documented in this encounter Visit Diagnoses Not on filedocumented in this encounter Care Teams Tannery Gummer Relationship Specialty Start Date End Date Ravi Yousif DO [address] [place] [address] PCP - FFS [employer] 03/02/24 documented as of this encounter
--- OUTSIDE RECORDS SUMMARY | 2024-11-26 17:55 | XMS_ITS | CCD ---
Demographics Address [address] [place] [address] Home Phone Mobile Phone Preferred Language en Marital Status Unknown Uatsdin Affiliation Unknown Race Unknown Ethnic Group Not or Lati no Author Organization [facility] Care Team Providers Care Rotor Coil Taper Name Role Phone Unavailable Primary Care Provider [...] JERNIGAN Consulting Unavailable STRAWSER, LUH Consulting Unavailable Unavailable Primary Care Provider Unavailabl e NONE, XXXX Primary Care Physician Unavailab Fuentes Estrada Attending Unavailable Fuentes Florentino Admitting Unavailable Fuentes Florentino Attending Unavailable Fuentes Florentino Admitting Unavailable BENJA, CHUNG Attending Unavailable SUBHASH, HALIMA Attending Unavailable BENJA, CHUNG Attending Unavailable BENJA, CHUNG Attending Unavailable SUBHASH, HALIMA Attending Unavailable BENJA, CHUNG Attending Unavailable BENJA, CHUNG Attending Unavailable SUBHASH, HALIMA Attending Unavailable SUBHASH, HALIMA Attending Unavailable BENJA, CHUNG Attending Unavailable BENJA, CHUNG Attending Unavailable BENJA, CHUNG Attending Unavailable BENJA, CHUNG Attending Unavailable SUBHASH, HALIMA Attending Unavailable BENJA, CHUNG Attending Unavailable NO FAMILY, PHYSICIAN Primary Care Unavailable Anders Sesay Jr Attending Unavailable Anders Sesay Jr Admitting Unavailable Allergies Allergy Classification Reported Allergen(s) Allergy Type Date of Onset Reaction(s) Facility (1 source) Latex Propensity to adverse reactions to drug 07-07-2020 [facility] [place] [place] Medications Current Medications Medication Drug Class(es) Dates Sig (Normalized) Sig (Original) acetaminophen 325 mg / oxyCODONE hydrochloride 5 mg oral tablet (5 sources) Opioid Agonist Start: 02-04-2024 End: 02-16-2024 take 1 tablet by mouth every six hours oxyCODONE-acetamin ophen (Percocet) 5-325 MG tablet Take 1 tablet by mouth every 6 (six) hours 02/04/2024 02/16/2024 Discontinued aspirin 81 mg chewable tablet (11 sources) Platelet Aggregation Inhibitor, Nonsteroidal Anti-inflammatory Drug Start: 10-26-2023 aspirin 81 mg Chew Tab 81 mg = 1 tab(s), Chewed, Daily, Refills(s) 0 Start Date: 10/26/23 Status: Ordered End: 02-16-2024 BABY ASPIRIN PO Take by mout h Daily 02/16/2024 Discontinued BABY ASPIRIN PO Take by mouth Daily Active cephalexin 500 mg oral capsule (9 sources) Cephalosporin Antibacterial Start: 12-30-2023 End: 02-10-2024 take 1 capsule by mouth in the morning, then take 1 capsule by mouth in the evening, then take 1 capsule by mouth at bedtime cephalexin (Keflex) 500 MG capsule Take 500 mg by mouth in the morning and 500 mg in the evening and 500 mg before bedtime. 12/30/2023 02/10/2024 Discontinued Start: 07-08-2020 End: 07-18-2020 take 1 capsule [...] mouth daily 30 capsule 0 07/08/2020 Active desogestrel 0.15 mg / ethinyl estradiol 0.03 mg oral tablet (2 sources) Progestin, Estrogen Start: 03-16-2024 End: 03-16-2025 desogestrel-ethinyl estradiol (Apri) 0.15-30 MG-MCG tablet Indications: 6 weeks follow-up Take 1 tablet by mouth Daily 28 tablet 12 03/16/2024 03/16/2025 Active metroNIDAZOLE 500 mg oral tablet (3 sources) [...] Refill(s) 0 Start Date: 10/26/23 Status: Ordered promethazine hydrochloride 12.5 mg oral tablet (9 sources) Phenothiazine Start: 12-17-2023 End: 03-16-2024 take 1 tablet by mouth every six hours as needed for nausea and nausea, then take 1 tablet by mouth every six hours as needed for nausea and nausea promethazine (Phenergan) 12.5 MG tablet Indications: Nausea and vomiting during Take 1 tablet (12.5 mg) by mouth every 6 (six) hours if needed for nausea or vomiting Take 1 tablet by mouth every 6 hours as needed for nausea. 30 tablet 2 12/17/2023 02/10/2024 Discontinued Start: 07-17-2023 End: 10-15-2023 take 1 tablet [...] (1 source) Azole Antifungal Start: 10-26-2023 terconazole 0 .4% Vag Crm 1 joselo, Vaginal, Refill(s) 0 Start Date: 10/26/23 Status: Ordered Completed/Discontinued Medications Medication Drug Class(es) Dates Sig (Normalized) Sig (Original) Docusate (7 sources) End: 03-16-2024 Docusate Sodium (COLACE PO) Take by mouth 03/16/2024 Discontinued (Other) Docusate Sodium (COLACE PO) Take by mouth Active fluconazole 150 mg oral tablet (1 source) Azole Antifungal Start: 06-27-2020 End: 10-19-2021 take 1 tablet by mouth once Fluconazole (Diflucan) 150 mg tablet Discontinued 150 MG PO Once June 27, 2020 4:52am October 19, 2021 1:02am as a single dose ibuprofen 800 mg oral tablet (9 sources) Nonsteroidal Anti-inflammatory Drug Start: 02-04-2024 End: 03-16-2024 take 1 tablet by mouth every eight hours ibuprofen 800 MG tablet Take 800 mg by mouth every 8 (eight) hours 02/04/2024 03/16/2024 Discontinued (Other) Start: 06-27-2020 End: 10-19-2021 take 600 mg by mouth every eight hours Ibuprofen Active 600 MG PO Q8H October 19, 2021 1:51am magnesium oxide 400 mg oral tablet (1 source) Start: 07-08-2020 End: 07-08-2020 magnesium oxide (MAG-OX) tab let 400 mg Xgcaidcc-Fjp-Ep-FA ( 1 + IRON PO) (16 sources) End: 03-16-2024 Gqqstiig-Lhu-Jn-FA ( 1 + IRON PO) Take by mouth 03/16/2024 Discontinued (Other) Multivi t-Min-Fe-FA ( 1 + IRON PO) Take by mouth Active Multivi t-Min-Fe-FA ( 1 + IRON PO) Take by mouth 0 Active simethicone 80 mg chewable tablet (7 sources) End: 03-16-2024 take 1 tablet by mouth every six hours as needed simethicone (Mylicon) 80 MG chewable tablet Chew 80 mg every 6 (six) hours if needed for flatulence 03/16/2024 Discontinued (Other) Problems Active Problems Problem Classification Problem Date [...] Onset: 08-30-2022 Episodic Other female genital disorders (2 sources) Vaginal bleeding; Translations: [Abnormal uterine and vaginal bleeding, unspecified] 02-16-2024 Chronic Other female genital disorders (1 source) Vaginal bleeding; Translations: [Vaginal bleeding] Episodic Other nutritional; endocrine; and metabolic disorders (1 source) Hypomagnesemia; Translations: [Hypomagnesemia] Chronic Other and delivery including normal (8 sources) First trimester ; Translations: [Encounter for [...] Other Problems Problem Classification Problem Date Documented Date Episodic/Chronic Abdominal pain (3 sources) Pain in pelvis; Translations: [Pelvic and perineal pain] Onset: 10-18-2021 10-19-2021 Episodic Other complications of (16 sources) Excessive growth affecting management of mother; Translations: [Maternal care for excessive growth, unspecified trimester, not applicable or unspecified] Onset: 12-24-2023 Resolved: 02-02-2024 02-10-2024 Episodic Other female genital disorders (3 sources) Other specified conditions associated with female genital organs and menstrual cycle; Translations: [OTH SPEC COND FE GEN ORG MENST CYCL] Onset: 04-01-2022 Episodic Polyhydramnios and other problems of amniotic cavity (12 sources) Polyhydramnios with problem; Translations: [Polyhydramnios, third trimester, not applicable or unspecified] Onset: 12-24-2023 Resolved: 02-02-2024 02-10-2024 Episodic Residual codes; unclassified (2 sources) Gestation period, 36 weeks; Translations: [36 weeks gestation of ] 01-21-2024 Episodic Results Test Name Value Interpretation Reference Range Facility Urinalysis macro (dipstick) panel (U)on 01-28-2024 Bilirubin, UA Negative Negative - 4(70) +++ mg/dL [facility] Blood, UA Negative Negative - 50 William/mcL [facility] Clarity, UA Clear [facility] Color, UA Yellow [facility] Glucose, UA Negative Negative - 1999(110) ++++ mg/dL [facility] Interpretation and review of laboratory results Abnormal [facility] Ketones, UA Negative Negative - 160(16) ++++ mg/dL [facility] Leukocytes, UA Positive Negative - 500+++ Gerald/mcL [facility] Comment on above: small Nitrite, UA Negative Negative - Positive [facility] pH, UA 6.5 5 - 9 [facility] Protein, UA Negative Negative - 1999(20) ++++ mg/dL [facility] Spec Grav, UA 1.025 1 - 1.03 [facility] Urobilinogen, UA 0.2 0.2 - 12 mg/dL [facility] Urinalysis macro (dipstick) panel (U)on 01-21-2024 Bilirubin, UA Negative Negative - 4(70) +++ mg/dL [facility] Blood, UA Negative Negative - 50 William/mcL [facility] Clarity, UA Clear [facility] Color, UA Yellow [facility] Glucose, UA Negative Negative - 1999(110) ++++ mg/dL [facility] Interpretation and review of laboratory results Abnormal [facility] Ketones, UA Negative Negative - 160(16) ++++ mg/dL [facility] Leukocytes, UA Positive Negative - 500+++ Gerald/mcL [facility] Comment on above: small Nitrite, UA Negative Negative - Positive [facility] pH, UA 5.5 5 - 9 [facility] Protein, UA Negative Negative - 1999(20) ++++ mg/dL [facility] Spec Grav, UA 1.030 1 - 1.03 [facility] Urobilinogen, UA 0.2 0.2 - 12 mg/dL [facility] Nursing Assessmenton 024 Nursing Assessment [id number] 2#1.00TIFF [facility] C Urineon 10-28-2023 Bacteria identified Cx [...] Locations R1: This test was performed at: [facility], [address] [place] [address], [id number] , [place], [facility] Comment on above: Performed By: #### 2 [id number] #### [facility] [address] [place] [address] Consent for Treatmenton 10-01 Consent for Treatment [id number] #1.00TIFF Normal [facility] Discharge Instructionson Discharge Instructions [id number] 7#1.00TIFF Normal [facility] Inpatient Clinical Summaryon 10-26-2023 Inpatient Clinical Summary [address] [address] Clinical Summary Person Information Name: TEODORO UPTON/Abhinav Age: 23 Years : 2000 Sex: Female PCP: NONE, XXXX Marital Status: Single Phone: [phone] Race: or Ethnicity: Non- or Language: Gibraltarian Visit Id: Visit Reason: 24 WEEKS BLEEDING Speciality: Acuity: Obs Enc Type: OB Triage Med Service: Obstetrics Arrival: 10/25/2023 23:36:04 Discharge: 10/26/2023 03:30:56 Dispo Type: Home (Routine DC) Address: [facility] 1/2 [facility] [id number] Provider Notes: Diagnosis: Problems Active (10/26/2023) Smoker [...] Referring Physician: Follow up: With: Address: When: [facility], [address] [place] [address] , [place] [id number] [facility] (1) In 9 days 11/04/2023 Patient Education Information: and Urinary Tract Infection; Vaginal Bleeding During , Second Trimester; Back Pain in Normal [facility] Inpatient Patient Summaryon 10-26-2023 Inpatient Patient Summary [address] [address] Patient Discharge Instructions PERSON INFORMATION [...] results: Follow up: With: Address: When: Chung DOUGLASO [facility], [address] [place] [address] [place] [address] Business (1) In 9 days 11/04/2023 In [...] Always wi (more content not included)... Normal [facility] Insurance Correspondenceon 0 10-26-2023 Insurance Correspondence [id number] 8#1.00TIFF Normal [facility] UA with Cult Rflxon 10-26-19 24 Bacteria Auto Ql (U) Trace Normal Trace Fish [facility] Comment on above: Performed By: #### 4 [id number] #### [facility] [address] [place] [address] Bilirubin Ql (U) Negative Normal Negative [facility] Comment on above: Performed By: #### 4 [id number] #### [facility] [address] [place] [address] Clarity (U) Turbid Abnormal Clear [facility] Comment on above: Performed By: #### 4 [id number] #### [facility] [address] [place] [address] Color (U) Yellow Normal Yellow [facility] Comment on above: Result Comment: Micr oscopic readings are only performed on those samples that meet specific criteria set forth by [facility]. Performed By: #### 4 [id number] #### [facility] [address] [place] [address] Epithelial cells.squamous Auto (Urine sed) [#/Area] 5-8 Abnormal 0-2 [facility] Comment on above: Performed By: #### 4 [id number] #### [facility] [address] [place] [address] Glucose Ql (U) Negative Normal Negative [facility] Comment on above: Performed By: #### 4 [id number] #### [facility] [address] [place] [address] Hemoglobin Auto test strip (U) [Mass/Vol] Negative Normal Negative [facility] Comment on above: Performed By: #### 4 [id number] #### [facility] [address] [place] [address] Hyaline casts LM Ql (Urine sed) 0-3 Normal 0-3 [facility] Comment on above: Performed By: #### 4 [id number] #### [facility] [address] [place] [address] Ketones Auto test strip Ql (U) Negative Normal Negative [facility] Comment on above: Performed By: #### 4 [id number] #### [facility] [address] [place] [address] Leukocyte esterase Auto test strip Ql (U) 500 Gerald/uL Abnormal Negative [facility] Comment on above: Performed By: #### 4 [id number] #### [facility] [address] [place] [address] Mucus Auto Ql (U) Trace Normal Negative [facility] Comment on above: Performed By: #### 4 [id number] #### [facility] [address] [place] [address] Nitrite Auto test strip Ql (U) Negative Normal Negative [facility] Comment on above: Performed By: #### 4 [id number] #### [facility] [address] [place] [address] pH (U) 6.0 [pH] Invalid Interpretation Code 5.0-9.0 [facility] Comment on above: Performed By: #### 4 [id number] #### [facility] [address] [place] [address] Protein Ql (U) Trace Abnormal Negative [facility] Comment on above: Performed By: #### 4 [id number] #### [facility] [address] [place] [address] RBC Ql (U) 4-20 Abnormal 0-3 [facility] Comment on above: Performed By: #### 4 [id number] #### [facility] [address] [place] [address] Specific gravity (U) [Rel density] 1.030 Invalid Interpretation Code 1.005-1.030 [facility] Comment on above: Performed By: #### 4 [id number] #### [facility] [address] [place] [address] Urobilinogen (U) [Mass/Vol] Negative Normal Negative [facility] Comment on above: Performed By: #### 4 [id number] #### [facility] [address] [place] [address] WBC Auto (Urine sed) [#/Area] 16-25 Abnormal 0-5 [facility] Comment on above: Performed By: #### 4 [id number] #### [facility] [address] [place] [address] Type of Urine collection method Clean Catch Normal [facility] Comment on above: Performed By: #### 4 [id number] #### [facility] [address] [place] [id number] URINALYSISOrdered By: SYSTEM SYSTEM on 10-25-2023 Bacteria Auto Ql (U) Trace /HPF Normal Trace/HPF [facility] UA Auto SS Bilirubin Ql (U) Negative Normal Negativemg/ d L [facility] UA Auto SS Clarity (U) Turbid *ABN* (10/25/23 11:53 PM) Invalid Interpretation Code Clear [facility] UA Auto SS Color (U) Yellow 1 (10/25/23 11:53 PM) Normal Yellow [facility] UA Auto SS Comment on above: Interpretive Data: M icroscopic readings are only performed on those samples that meet specific criteria set forth by [facility]. Epithelial cells.squamous Auto (Urine sed) [#/Area] 5-8 graded/HPF Invalid Interpretation Code 0-2graded/HP F [facility] UA Auto SS Glucose Ql (U) Negative Normal Negativemg/d L [facility] UA Auto SS Hemoglobin Auto test strip (U) [Mass/Vol] Negative Normal Negativemg/d L [facility] UA Auto SS Hyaline casts LM Ql [...] Normal Negativemg/d L [facility] UA Auto SS pH (U) 6.0 *NA* (10/25/23 11:53 PM) Invalid Interpretation Code 5.0 - 9.0 [facility] UA Auto SS Protein Ql (U) Trace mg/dL Invalid Interpretation Code Negativemg/d L [facility] UA Auto SS RBC Ql (U) 4-20 graded/HPF Invalid Interpretation Code 0-3graded/HP F [facility] UA Auto SS Specific gravity (U) [Rel density] 1.030 *NA* (10/25/23 11:53 PM) Invalid Interpretation Code 1.005 - 1.030 [facility] UA Auto SS Urobilinogen (U) [Mass/Vol] Negative Normal Negativemg/d L [facility] UA Auto SS WBC Auto (Urine sed) [#/Area] 16-25 graded/HPF Invalid Interpretation Code 0-5graded/HP F [facility] UA Auto SS URINALYSISOrdered By: Elijah Hernandez on 10-25-2023 UA Spec Desc Clean Catch (10/25/23 11:53 PM) Normal [facility] UA Auto SS Urinalysis macro (dipstick) panel (U)on 07-17-2023 Bilirubin, UA Negative Negative - 4(70) +++ mg/dL [facility] Blood, UA Negative Negative - 50 William/mcL [facility] Clarity, UA Clear [facility] Color, UA Yellow [facility] Glucose, UA Negative Negative - 2000(110) ++++ mg/dL [facility] Interpretation and review of laboratory results Abnormal [facility] Ketones, UA Negative Negative - 160(16) ++++ mg/dL [facility] Leukocytes, UA Positive Negative - 500+++ Gerald/mcL [facility] Nitrite, UA Negative Negative - Positive [facility] pH, UA 7.0 5 - 9 [facility] Protein, UA Negative Negative - 1999(20) ++++ mg/dL [facility] Spec Grav, UA 1.020 1 - 1.03 [facility] Urobilinogen, UA 0.2 0.2 - 12 mg/dL [facility] HCG ( test) Ql (U)o n 07-03-2023 Interpretation and review of laboratory results Abnormal [facility] Preg Test, Ur Negative [facility] Urinalysis macro (dipstick) panel (U)on 07-03-2023 Bilirubin, UA Negative Negative - 4(70) +++ mg/dL [facility] Blood, UA Negative Negative - 50 William/mcL [facility] Clarity, UA Clear [facility] Color, UA Yellow [facility] Glucose, UA Negative Negative - 1999(110) ++++ mg/dL [facility] Interpretation and review of laboratory results Normal [facility] Ketones, UA Negative Negative - 160(16) ++++ mg/dL [facility] Leukocytes, UA Negative Negative - 500+++ Gerald/mcL [facility] Nitrite, UA Negative Negative - Positive [facility] pH, UA 5.5 5 - 9 [facility] Protein, UA Negative Negative - 1999(20) ++++ mg/dL [facility] Spec Grav, UA 1.010 1 - 1.03 [facility] Urobilinogen, UA 1.0 0.2 - 12 mg/dL [facility] XR FOOT RT MIN 3 VIEWSon [...] PADDY SAPP Date: 2022-08-30 14:42 Normal [facility] CBC AUTO DIFFon 06-28-2022 BASO # 0.0 103/ul Normal 0.0-0.1 [facility] Comment on above: Performed By: #### C BC #### [facility] [address] [place] [address] [address] Jerald Poon Basophils/100 WBC (Bld) 0.3 % Normal 0.2-2.0 [facility] Comment on above: Performed By: #### C BC #### [facility] [address] [place] [address] Dr. Jerald Poon EO # 0.1 103/ul Normal 0.0-0.7 [facility] Comment on above: Performed By: #### C BC #### [facility] [address] [place] [address] Dr. Jerald Poon Eosinophils/100 WBC (Bld) 1.1 % Normal 0.9-7.0 [facility] Comment on above: Performed By: #### C BC #### [facility] [address] [place] [address] Dr. Jerald Poon Erythrocyte distribution width (RBC) [Ratio] 14.5 % Normal 11.0-15.0 [facility] Comment on above: Performed By: #### C BC #### [facility] [address] [place] [address] Dr. Jerald Poon Hematocrit (Bld) [Volume fraction] 36.7 % Normal 36.0-48.0 [facility] Comment on above: Performed By: #### C BC #### [facility] [address] [place] [address] Dr. Jerald Poon Hemoglobin (Bld) [Mass/Vol] 13.0 g/dL Normal 12.0-16.0 [facility] Comment on above: Performed By: #### C BC #### [facility] [address] [place] [address] Dr. Jerald Poon IG # 0.04 10e3/ul Critically high 0.00-0.03 [facility] Comment on above: Performed By: #### C BC #### [facility] [address] [place] [address] Dr. Jerald Poon IG % 0.3 % Normal 0.0-0.5 [facility] Comment on above: Performed By: #### C BC #### [facility] [address] [place] [address] Dr. Jerald Poon LYMPH # 3.0 103/ul Normal 1.2-3.8 [facility] Comment on above: Performed By: #### C BC #### [facility] [address] [place] [address] Dr. Jerald Poon Lymphocytes/100 WBC (Bld) 26.2 % Normal 20.5-60.0 [facility] Comment on above: Performed By: #### C BC #### [facility] [address] [place] [address] Dr. Jerald Poon MANUAL DIFF REQ NO Normal [facility] Comment on above: Performed By: #### C BC #### [facility] [address] [place] [address] Dr. Jerald Poon MCH (RBC) [Entitic mass] 27.1 pg Normal 26.7-34.0 [facility] Comment on above: Performed By: #### C BC #### [facility] [address] [place] [address] Dr. Jerald Poon MCHC (RBC) [Mass/Vol] 35.4 g/dL Critically high 29.9-35.2 [facility] Comment on above: Performed By: #### C BC #### [facility] [address] [place] [address] Dr. Jerald Poon MCV (RBC) [Entitic vol] 76.6 fL Critically low 81.0-99.0 [facility] Comment on above: Performed By: #### C BC #### [facility] [address] [place] [address] Dr. Jerald Poon MONO # 0.8 103/ul Normal 0.3-0.8 [facility] Comment on above: Performed By: #### C BC #### [facility] [address] [place] [address] Dr. Jerald Poon Monocytes/100 WBC (Bld) 7.0 % Normal 1.7-12.0 [facility] Comment on above: Performed By: #### C BC #### [facility] [address] [place] [address] Dr. Jerald Poon NEUT # 7.5 103/ul Critically high 1.4-6.5 [facility] Comment on above: Performed By: #### C BC #### [facility] [address] [place] [address] Dr. Jerald Poon Neutrophils/100 WBC (Bld) 65.1 % Normal 43.0-75.0 [facility] Comment on above: Performed By: #### C BC #### [facility] [address] [place] [address] Dr. Jerald Poon Platelet mean volume (Bld) [Entitic vol] 10.0 fL Normal 9.5-13.5 [facility] Comment on above: Performed By: #### C BC #### [facility] [address] [place] [address] Dr. Jerald Poon PLT 387 103/ul Normal 150-450 [facility] Comment on above: Performed By: #### C BC #### [facility] [address] [place] [address] Dr. Jerald Poon RBC 4.79 106/ul Normal 4.20-5.40 [facility] Comment on above: Performed By: #### C BC #### [facility] [address] [place] [address] Dr. Jerald Poon WBC 11.6 103/ul Critically high 4.0-11.0 [facility] Comment on above: Performed By: #### C BC #### [facility] [address] [place] [address] Dr. Jerald Poon CULTURE URINEon 06-28-2022 CULTURE URINE Culture Observations: LIGHT GROWTH OF MIXED GENITAL ZACARIAS. NO POTENTIAL PATHOGENS SEEN. Normal [facility] Comment on above: Performed By: #### U RCX #### [facility] [address] [place] [address] [address] Jerald Poon ER URINE PROFILEon 3 Bilirubin Ql (U) Negative Normal NEGATIVE [facility] Comment on above: Performed By: #### U MICRO, ERUR #### [facility] [facility] [address] [address] [address] Jerald Poon Clarity (U) CLEAR Normal CLEAR [facility] Comment on above: Performed By: #### U MICRO, ERUR #### [facility] [address] [place] [address] Dr. Jerald Poon Color (U) YELLOW Normal YELLOW [facility] Comment on above: Performed By: #### U MICRO, ERUR #### [facility] [address] [place] [address] Dr. Jerald SALEHD A micrscopic examination will be performed if indicated. Normal [facility] Comment on above: Performed By: #### U MICRO, ERUR #### [facility] [address] [address] [address] Jerald Poon Glucose Ql (U) Negative Normal NEGATIVE [facility] Comment on above: Performed By: #### U MICRO, ERUR #### [facility] [address] [place] [address] Dr. Jerald Poon Hemoglobin Ql (U) Negative Normal NEGATIVE [facility] Comment on above: Performed By: #### U MICRO, ERUR #### [facility] [address] [address] [address] Jerald Poon Ketones Ql (U) 40 mg/dl Abnormal NEGATIVE [facility] Comment on above: Performed By: #### U MICRO, ERUR #### [facility] [address] [place] [address] Dr. Jerald Poon LEUKOCYTES TRACE Abnormal NEGATIVE [facility] Comment on above: Performed By: #### U MICRO, ERUR #### [facility] [address] [place] [address] Dr. Jerald Poon Nitrite Ql (U) Negative Normal NEGATIVE [facility] Comment on above: Performed By: #### U MICRO, ERUR #### [facility] [address] [place] [address] Dr. Jerald Poon pH (U) 6.0 [pH] Normal 5-9 [facility] Comment on above: Performed By: #### U MICRO, ERUR #### [facility] [address] [place] [address] Dr. Jerald Poon SPEC GRAVITY >=1.030 Abnormal 1.005-<=1.02 5 [facility] Comment on above: Performed By: #### U MICRO, ERUR #### [facility] [address] [place] [address] Dr. Jerald Poon UA PROTEIN Negative Normal NEGATIVE/ TRACE [facility] Comment on above: Performed By: #### U MICRO, ERUR #### [facility] [address] [place] [address] Dr. Jerald Poon UR MICRO IND INDICATED Normal [facility] Comment on above: Performed By: #### U MICRO, ERUR #### [facility] [address] [place] [address] Dr. Jerald Poon Urobilinogen Qn (U) 0.2 {Lyly'U}/dL Normal 0.2 - 1. 0 [facility] Comment on above: Performed By: #### U MICRO, ERUR #### [facility] [address] [place] [address] Dr. Jerald Poon PREG QUANT HCGon 06-28-2022 HCG QUANT <1 Normal [facility] Comment on above: Performed By: #### P REGQNT #### [facility] [address] [place] [address] Dr. Jerald Poon HCG RANGE SEE BELOW Normal [facility] Comment on above: Result Comment: 5-50 0.2-1 WEEK 50-500 1-2 WEEKS 100-5,000 2-3 WEEKS 500-10,000 3-4 WEEKS 1,000-50,000 4-5 WEEKS 10,000-100,000 5-6 WEEKS 15,000-200,000 6-8 WEEKS 10,000-100,000 2-3 MONTHS Performed By: #### P REGQNT #### [facility] [address] [place] [address] Dr. Jerald Poon PROF CHEM 8 (BAS METB)on Anion gap [Moles/Vol] 14.0 mmol/L Normal [facility] Comment on above: Performed By: #### C BC #### [facility] [address] [place] [address] Dr. Jerald Poon Calcium [Mass/Vol] 9.6 mg/dL Normal 8.5-10.[address] [facility] Comment on above: Performed By: #### C BC #### [facility] [address] [place] [address] Dr. Jerald Poon Chloride [Moles/Vol] 101 mmol/L Normal 98-107 [facility] Comment on above: Performed By: #### C BC #### [facility] [address] [place] [address] Dr. Jerald Poon CO2 [Moles/Vol] 25.4 mmol/L Normal 21.0-32.0 [facility] Comment on above: Performed By: #### C BC #### [facility] [address] [place] [address] Dr. Jerald Poon Creatinine [Mass/Vol] 0.92 mg/dL Normal 0.55-1.02 [facility] Comment on above: Performed By: #### C BC #### [facility] [address] [place] [address] Dr. Jerald Poon EGFR-AF NORWEGIAN >60 Normal >=60 [facility] Comment on above: Performed By: #### C BC #### [facility] [address] [place] [address] Dr. Jerald Poon EGFR-NON AF NORWEGIAN >60 Normal >=60 [facility] Comment on above: Performed By: #### C BC #### [facility] [address] [place] [address] Dr. Jerald Poon Glucose [Mass/Vol] 101 mg/dL Normal 74-[address] [facility] Comment on above: Performed By: #### C BC #### [facility] [address] [address] [address] Jerald Poon Potassium [Moles/Vol] 3.4 mmol/L Critically low 3.5-5.1 [facility] Comment on above: Performed By: #### C BC #### [facility] [address] [address] [address] Jerald Poon Sodium [Moles/Vol] 137 mmol/L Normal 136-[address] [facility] Comment on above: Performed By: #### C BC #### [facility] [address] [address] [address] Jerald Poon Urea nitrogen [Mass/Vol] 11.0 mg/dL Normal 7.0-18.0 [facility] Comment on above: Performed By: #### C BC #### [facility] [address] [address] [address] Jerald Poon Urea nitrogen/Creatinine [Mass ratio] 12.0 mg/mg Normal [facility] Comment on above: Performed By: #### C BC #### [facility] [address] [address] [address] Jerald Poon TSHon 06-28-2022 TSH 1.319 uIU/mL Normal 0.358-3.740 [facility] Comment on above: Performed By: #### C BC #### [facility] [address] [address] [address] Jerald Poon URINE MICROSCOPIC ONLYon BACTERIA SMALL Abnormal NONE SEEN [facility] Comment on above: Performed By: #### U MICRO, ERUR #### [facility] [address] [address] [address] Jerald Poon Bacteria identified Cx Nom (U) INDICATED Normal [facility] Comment on above: Performed By: #### U MICRO, ERUR #### [facility] [address] [address] [address] Jerald Poon CAST NONE SEEN Normal NONE SEEN [facility] Comment on above: Performed By: #### U MICRO, ERUR #### [facility] [address] [place] [address] Dr. Jerald Poon Crystals LM Nom (Urine sed) NONE SEEN Normal NONE SEEN [facility] Comment on above: Performed By: #### U MICRO, ERUR #### [facility] [address] [place] [address] Dr. Jerald Poon Epithelial cells LM Ql (Urine sed) FEW Abnormal NONE SEEN /RARE [facility] Comment on above: Performed By: #### U MICRO, ERUR #### [facility] [address] [place] [address] Dr. Jerald Poon MUCOUS NONE SEEN Normal NONE SEEN [facility] Comment on above: Performed By: #### U MICRO, ERUR #### [facility] [address] [place] [address] Dr. Jerald Poon RBC NONE SEEN Abnormal 0-2 [facility] Comment on above: Performed By: #### U MICRO, ERUR #### [facility] [address] [place] [address] Dr. Jerald Poon WBC 2-5 Abnormal NONE SEEN [facility] Comment on above: Performed By: #### U MICRO, ERUR #### [facility] [address] [place] [address] Dr. Jerald Poon CBC AUTO DIFFon 04-01-2022 BASO # 0.0 103/ul Normal 0.0-0.1 [facility] Comment on above: Performed By: #### C BC #### [facility] [address] [place] [address] Dr. Jerald Poon Basophils/100 WBC (Bld) 0.5 % Normal 0.2-2.0 [facility] Comment on above: Performed By: #### C BC #### [facility] [address] [place] [address] Dr. Jerald Poon EO # 0.1 103/ul Normal 0.0-0.7 [facility] Comment on above: Performed By: #### C BC #### [facility] [address] [place] [address] Dr. Jerald Poon Eosinophils/100 WBC (Bld) 1.7 % Normal 0.9-7.0 [facility] Comment on above: Performed By: #### C BC #### [facility] [address] [place] [address] Dr. Jerald Poon Erythrocyte distribution width (RBC) [Ratio] 14.2 % Normal 11.0-15.0 [facility] Comment on above: Performed By: #### C BC #### [facility] [address] [place] [address] Dr. Jerald Poon Hematocrit (Bld) [Volume fraction] 36.7 % Normal 36.0-48.0 [facility] Comment on above: Performed By: #### C BC #### [facility] [address] [place] [address] Dr. Jerald Poon Hemoglobin (Bld) [Mass/Vol] 12.1 g/dL Normal 12.0-16.0 [facility] Comment on above: Performed By: #### C BC #### [facility] [address] [place] [address] Dr. Jerald Poon IG # 0.01 10e3/ul Normal 0.00-0.03 [facility] Comment on above: Performed By: #### C BC #### [facility] [address] [place] [address] Dr. Jerald Poon IG % 0.1 % Normal 0.0-0.5 [facility] Comment on above: Performed By: #### C BC #### [facility] [address] [place] [address] Dr. Jerald Poon LYMPH # 2.3 103/ul Normal 1.2-3.8 [facility] Comment on above: Performed By: #### C BC #### [facility] [address] [place] [address] Dr. Jerald Poon Lymphocytes/100 WBC (Bld) 30.8 % Normal 20.5-60.0 [facility] Comment on above: Performed By: #### C BC #### [facility] [address] [place] [address] Dr. Jerald Poon MANUAL DIFF REQ NO Normal [facility] Comment on above: Performed By: #### C BC #### [facility] [address] [address] [address] Jerald Poon MCH (RBC) [Entitic mass] 27.3 pg Normal 26.7-34.0 [facility] Comment on above: Performed By: #### C BC #### [facility] [address] [place] [address] Dr. Jerald Poon MCHC (RBC) [Mass/Vol] 33.0 g/dL Normal 29.9-35.2 [facility] Comment on above: Performed By: #### C BC #### [facility] [address] [place] [address] Dr. Jerald Poon MCV (RBC) [Entitic vol] 82.7 fL Normal 81.0-99.0 [facility] Comment on above: Performed By: #### C BC #### [facility] [address] [place] [address] Dr. Jerald Poon MONO # 0.8 103/ul Normal 0.3-0.8 [facility] Comment on above: Performed By: #### C BC #### [facility] [address] [place] [address] Dr. Jerald Poon Monocytes/100 WBC (Bld) 10.6 % Normal 1.7-12.0 [facility] Comment on above: Performed By: #### C BC #### [facility] [address] [place] [address] Dr. Jerald Poon NEUT # 4.2 103/ul Normal 1.4-6.5 [facility] Comment on above: Performed By: #### C BC #### [facility] [address] [place] [address] Dr. Jerald Poon Neutrophils/100 WBC (Bld) 56.3 % Normal 43.0-75.0 [facility] Comment on above: Performed By: #### C BC #### [facility] [address] [place] [address] Dr. Jerald Poon Platelet mean volume (Bld) [Entitic vol] 10.2 fL Normal 9.5-13.5 [facility] Comment on above: Performed By: #### C BC #### [facility] [address] [place] [address] Dr. Jerald Poon PLT 375 103/ul Normal 150-450 [facility] Comment on above: Performed By: #### C BC #### [facility] [address] [place] [address] Dr. Jerald Poon RBC 4.44 106/ul Normal 4.20-5.40 [facility] Comment on above: Performed By: #### C BC #### [facility] [address] [place] [address] Dr. Jerald Poon WBC 7.5 103/ul Normal 4.0-11.0 [facility] Comment on above: Performed By: #### C BC #### [facility] [address] [place] [address] Dr. Jerald Poon ER URINE PROFILEon 2 Bilirubin Ql (U) Negative Normal NEGATIVE [facility] Comment on above: Performed By: #### C BC #### [facility] [address] [place] [address] Dr. Jerald Poon Clarity (U) CLEAR Normal CLEAR [facility] Comment on above: Performed By: #### C BC #### [facility] [address] [place] [address] Dr. Jerald Poon Color (U) YELLOW Normal YELLOW [facility] Comment on above: Performed By: #### C BC #### [facility] [address] [place] [address] Dr. Jerald CEBALLOS A micrscopic examination will be performed if indicated. Normal [facility] Comment on above: Performed By: #### C BC #### [facility] [address] [place] [address] Dr. Jerald Poon Glucose Ql (U) Negative Normal NEGATIVE [facility] Comment on above: Performed By: #### C BC #### [facility] [address] [place] [address] Dr. Jerald Poon Hemoglobin Ql (U) Negative Normal NEGATIVE [facility] Comment on above: Performed By: #### C BC #### [facility] [address] [place] [address] Dr. Jerald Poon Ketones Ql (U) Negative Normal NEGATIVE [facility] Comment on above: Performed By: #### C BC #### [facility] [address] [place] [address] Dr. Jerald Poon LEUKOCYTES Negative Normal NEGATIVE [facility] Comment on above: Performed By: #### C BC #### [facility] [address] [place] [address] Dr. Jerald Poon Nitrite Ql (U) Negative Normal NEGATIVE [facility] Comment on above: Performed By: #### C BC #### [facility] [address] [place] [address] Dr. Jerald Poon pH (U) 7.0 [pH] Normal 5-9 [facility] Comment on above: Performed By: #### C BC #### [facility] [address] [place] [address] Dr. Jerald Poon SPEC GRAVITY 1.025 Normal 1.005-<=1.02 5 [facility] Comment on above: Performed By: #### C BC #### [facility] [address] [place] [address] Dr. Jerald Poon UA PROTEIN Negative Normal NEGATIVE/ TRACE [facility] Comment on above: Performed By: #### C BC #### [facility] [address] [place] [address] Dr. Jerald Poon UR MICRO IND NOT INDICATED Normal [facility] Comment on above: Performed By: #### C BC #### [facility] [address] [place] [address] Dr. Jerald Poon Urobilinogen Qn (U) 1.0 {Lyly'U}/dL Normal 0.2 - 1. 0 [facility] Comment on above: Performed By: #### C BC #### [facility] [address] [place] [address] Dr. Jerald Poon PREG QUANT HCGon 04-01-2022 HCG QUANT 1 mIU/mL Normal [facility] Comment on above: Performed By: #### P REGQNT #### [facility] [address] [place] [address] Dr. Jerald Poon HCG RANGE SEE BELOW Normal [facility] Comment on above: Result Comment: 5-50 0.2-1 WEEK 50-500 1-2 WEEKS 100-5,000 2-3 WEEKS 500-10,000 3-4 WEEKS 1,000-50,000 4-5 WEEKS 10,000-100,000 5-6 WEEKS 15,000-200,000 6-8 WEEKS 10,000-100,000 2-3 MONTHS Performed By: #### P REGQNT #### [facility] [address] [place] [address] Dr. Jerald Poon PROF 14(COMP METB)on 022 Albumin [Mass/Vol] 3.6 g/dL Normal 3.4-5.[address] [facility] Comment on above: Performed By: #### C MP #### [facility] [address] [place] [address] Dr. Jerald Poon Albumin/Globulin [Mass ratio] 0.8 {ratio} Normal [facility] Comment on above: Performed By: #### C MP #### [facility] [address] [place] [address] Dr. Jerald Poon ALP [Catalytic activity/Vol] 65 U/L Normal 46-116 [facility] Comment on above: Performed By: #### C MP #### [facility] [address] [place] [address] Dr. Jerald Poon ALT [Catalytic activity/Vol] 22 U/L Normal 14-59 [facility] Comment on above: Performed By: #### C MP #### [facility] [address] [place] [address] Dr. Jerald Poon Anion gap [Moles/Vol] 10.3 mmol/L Normal [facility] Comment on above: Performed By: #### C MP #### [facility] [address] [place] [address] Dr. Jerald Poon AST [Catalytic activity/Vol] 14 U/L Critically low 15-37 [facility] Comment on above: Performed By: #### C MP #### [facility] [address] [address] [address] Jerald Poon Bilirubin [Mass/Vol] 0.1 mg/dL Critically low 0.2-1.0 [facility] Comment on above: Performed By: #### C MP #### [facility] [address] [address] [address] Jerald Poon Calcium [Mass/Vol] 8.6 mg/dL Normal 8.5-10.[address] [facility] Comment on above: Performed By: #### C MP #### [facility] [address] [address] [address] Jerald Poon Chloride [Moles/Vol] 104 mmol/L Normal 98-107 [facility] Comment on above: Performed By: #### C MP #### [facility] [address] [address] [address] Jerald Poon CO2 [Moles/Vol] 28.1 mmol/L Normal 21.0-32.0 [facility] Comment on above: Performed By: #### C MP #### [facility] [address] [address] [address] Jerald Poon Creatinine [Mass/Vol] 0.99 mg/dL Normal 0.55-1.02 [facility] Comment on above: Performed By: #### C MP #### [facility] [address] [address] [address] Jerald Poon EGFR-AF NORWEGIAN >60 Normal >=60 [facility] Comment on above: Performed By: #### C MP #### [facility] [address] [address] [address] Jerald Poon EGFR-NON AF NORWEGIAN >60 Normal >=60 [facility] Comment on above: Performed By: #### C MP #### [facility] [address] [address] [address] Jerald Poon Globulin (S) [Mass/Vol] 4.5 g/dL Normal [facility] Comment on above: Performed By: #### C MP #### [facility] [address] [address] [address] Jerald Poon Glucose [Mass/Vol] 94 mg/dL Normal 74-106 [facility] Comment on above: Performed By: #### C MP #### [facility] [address] [address] [address] Jerald Poon Potassium [Moles/Vol] 3.4 mmol/L Critically low 3.5-5.1 [facility] Comment on above: Performed By: #### C MP #### [facility] [address] [address] [address] Jerald Poon Protein [Mass/Vol] 8.1 g/dL Normal 6.4-8.2 [facility] Comment on above: Performed By: #### C MP #### [facility] [address] [address] [address] Jerald Poon Sodium [Moles/Vol] 139 mmol/L Normal 136-145 [facility] Comment on above: Performed By: #### C MP #### [facility] [address] [address] [address] Jerald Poon Urea nitrogen [Mass/Vol] 8.0 mg/dL Normal 7.0-18.0 [facility] Comment on above: Performed By: #### C MP #### [facility] [address] [address] [address] Jerald Poon Urea nitrogen/Creatinine [Mass ratio] 8.1 mg/mg Normal [facility] Comment on above: Performed By: #### C MP #### [facility] [address] [address] [address] Jerald Poon US PELVIS TRANSVAGon 10-31-2 [...] LUH MANRIQUE Date: 2022-04-01 21:55 Normal [facility] Automated erythrocytes count in urine sediment (number/area)Ordered By: Anders Sesay on 10-19-2021 RBC Auto (Urine sed) [#/Area] 1-2 [HPF] [facility] Automated leukocytes count i n urine sediment (number/area)Ordered By: Anders Sesay on 10-19-2021 WBC Auto (Urine sed) [#/Area] 3-4 [HPF] [facility] Basophils Auto (Bld) [#/Vol] Ordered By: Anders Sesay on 10-19-2021 Basophils (Bld) [#/Vol] 0.1 10*3/uL 0.0-0.2 [facility] Basophils/100 WBC Auto (Bld) Ordered By: Anders Sesay on 10-19-2021 Basophils/100 WBC (Bld) 0.6 % [facility] Bilirubin Test strip Ql (U)O rdered By: Anders Sesay on 10-19-2021 Bilirubin Ql (U) Negative Negative [facility] Blood hemoglobin measurement (mass/volume)Ordered By: Anders Sesay on 10-19-2021 Hemoglobin (Bld) [Mass/Vol] 13.2 g/dL 11.8-15.4 [facility] Blood leukocytes automated c ount (number/volume)Ordered By: Anders Sesay on 10-19-2021 WBC (Bld) [#/Vol] 9.1 10*3/uL 4.5-11.0 [facility] Body fluid albumin measureme nt (mass/volume)Ordered By: Anders Sesay on 10-19-2021 Albumin (Body fld) [Mass/Vol] 3.8 g/dL 3.2-5.5 [facility] Color Auto (U)Ordered By: Jason Sesay on 10-19-2021 Color (U) Yellow Yellow [facility] Creatinine and Glomerular fi ltration rate.predicted panel (S/P/Bld)Ordered By: Anders Sesay on 10-19-2021 Creatinine [Mass/Vol] 0.87 mg/dL 0.44-1.03 [facility] Eosinophils Auto (Bld) [#/Vo l]Ordered By: Anders Sesay on 10-19-2021 Eosinophils (Bld) [#/Vol] 0.1 10*3/uL 0.0-0.45 [facility] Eosinophils/100 WBC Auto (Bl d)Ordered By: Anders Sesay on 10-19-2021 Eosinophils/100 WBC (Bld) 0.9 % [facility] Erythrocyte distribution wid th Auto (RBC) [Ratio]Ordered By: Anders Sesay on 10-19-2021 Erythrocyte distribution width (RBC) [Ratio] 16.4 % 11.9-15.3 [facility] Estimated glomerular filtrat ion rate (GFR) non- AmericanOrdered By: Anders Sesay on 10-19-2021 GFR/1.73 sq M.predicted among non-blacks MDRD (S/P/Bld) [Vol rate/Area] > 60 mL/Min [facility] Globulin Calc (S) [Mass/Vol] Ordered By: Anders Sesay on 10-19-2021 Globulin (S) [Mass/Vol] 4.3 g/dL [facility] HCG ( test) IA.rapi d Ql (U)Ordered By: Anders Sesay on 10-19-2021 HCG ( test) Ql (U) Negative [facility] Hematocrit Auto (Bld) [Volum e fraction]Ordered By: Anders Sesay on 10-19-2021 Hematocrit (Bld) [Volume fraction] 40.2 % 34.0-46.4 [facility] Ketones Auto test strip (U) [Mass/Vol]Ordered By: Anders Sesay on 10-19-2021 Ketones (U) [Mass/Vol] Negative Negative [facility] - [facility]ematology and Cell countsOrdered By: Anders Sesay on 10-19-2021 Nucleated RBC/100 WBC (Bld) [Ratio] 0.2 % 0-0.5 [facility] - UrinalysisOrder ed By: Anders Sesay on 10-19-2021 Hyaline casts LM Ql (Urine sed) 0-8 [LPF] [facility] Lymphocytes Auto (Bld) [#/Vo l]Ordered By: Anders Sesay on 10-19-2021 Lymphocytes (Bld) [#/Vol] 2.4 10*3/uL 1.00-4.8 [facility] Lymphocytes/100 WBC Auto (Bl d)Ordered By: Anders Sesay on 10-19-2021 Lymphocytes/100 WBC (Bld) 26.7 % [facility] MCH Auto (RBC) [Entitic mass ]Ordered By: Anders Sesay on 10-19-2021 MCH (RBC) [Entitic mass] 26.3 pg 24.7-34.3 [facility] MCHC Auto (RBC) [Mass/Vol]Or dered By: Anders Sesay on 10-19-2021 MCHC (RBC) [Mass/Vol] 32.9 g/dL 32.0-35.0 [facility] MCV Auto (RBC) [Entitic vol] Ordered By: Anders Sesay on 10-19-2021 MCV (RBC) [Entitic vol] 80.1 fL 80-100 [facility] Monocytes Auto (Bld) [#/Vol] Ordered By: Anders Sesay on 10-19-2021 Monocytes (Bld) [#/Vol] 0.7 10*3/uL 0.0-0.8 [facility] Monocytes/100 WBC Auto (Bld) Ordered By: Anders Sesay on 10-19-2021 Monocytes/100 WBC (Bld) 7.6 % [facility] Neutrophils Auto (Bld) [#/Vo l]Ordered By: Anders Sesay on 10-19-2021 Neutrophils (Bld) [#/Vol] 5.8 10*3/uL 1.8-7.7 [facility] Neutrophils/100 WBC Auto (Bl d)Ordered By: Anders Sesay on 10-19-2021 Neutrophils/100 WBC (Bld) 64.2 % [facility] Nitrite Test strip Ql (U)Ord ered By: Anders Sesay on 10-19-2021 Nitrite Ql (U) Negative Negative [facility] No Panel InformationOrdered By: Anders Sesay on 10-19-2021 Estimated GFR () > 60 mL/Min [facility] Comment on above: GFR estimated refere nce range: According to KDOQI guidelines, <60 ml/min/1.73m2 is sufficient to diagnose a patient with chronic kidney disease. Pharmacy Creatinine Clearance (Chem 147.41 [facility] Platelet mean volume Auto (B ld) [Entitic vol]Ordered By: Anders Sesay on 10-19-2021 Platelet mean volume (Bld) [Entitic vol] 8.6 fL 6.3-10.7 [facility] Platelets Auto (Bld) [#/Vol] Ordered By: Anders Sesay on 10-19-2021 Platelets (Bld) [#/Vol] 395 10*3/uL 150-450 [facility] Protein Auto test strip (U) [Mass/Vol]Ordered By: Anders Sesay on 10-19-2021 Protein (U) [Mass/Vol] Negative Negative Fi [facility] Protein [Mass/volume] in Ser um or PlasmaOrdered By: Anders Sesay on 10-19-2021 Protein [Mass/Vol] 8.1 g/dL 6.1-7.9 [facility] RBC Auto (Bld) [#/Vol]Ordere d By: Anders Sesay on 10-19-2021 RBC (Bld) [#/Vol] 5.02 10*6/uL 3.60-5.00 [facility] Serum or plasma alanine ayoub otransferase measurement without P-5'-P (enzymatic activiOrdered By: Anders Sesay on 10-19-2021 ALT No additional P-5'-P [Catalytic activity/Vol] 20 U/L 10-60 [facility] Serum or plasma albumin/glob ulin mass ratioOrdered By: Anders Sesay on 10-19-2021 Albumin/Globulin [Mass ratio] 0.9 {ratio} [facility] Serum or plasma alkaline cosmo sphatase measurement (enzymatic activity/volume)Ordered By: Anders Sesay on 10-19-2021 ALP [Catalytic activity/Vol] 55 U/L 32-92 [facility] Serum or plasma aspartate am inotransferase measurement (enzymatic activity/volume)Ordered By: Anders Sesay on 10-19-2021 AST [Catalytic activity/Vol] 17 U/L 10-42 [facility] Serum or plasma calcium joann urement (mass/volume)Ordered By: Anders Sesay on 10-19-2021 Calcium [Mass/Vol] 9.1 mg/dL 8.2-10.2 [facility] Serum or plasma chloride adan surement (moles/volume)Ordered By: Anders Sesay on 10-19-2021 Chloride [Moles/Vol] 103 mmol/L 95-114 [facility] Serum or plasma glucose joann urement (mass/volume)Ordered By: Anders Sesay on 10-19-2021 Glucose [Mass/Vol] 105 mg/dL 70-100 [facility] Comment on above: ADA recommended refe rence range Random Glucose Reference Range is dependent on time and content of last meal. Glucose of more than 200 mg/dL in a nonstressed, ambulatory subject supports the diagnosis of Diabetes Mellitus. Serum or plasma potassium me asurement (moles/volume)Ordered By: Anders Sesay on 10-19-2021 Potassium [Moles/Vol] 3.7 mmol/L 3.5-5.1 [facility] Serum or plasma sodium measu rement (moles/volume)Ordered By: Anders Sesay on 10-19-2021 Sodium [Moles/Vol] 137 mmol/L 136-146 [facility] Serum or plasma total biliru bin measurement (mass/volume)Ordered By: Anders Sesay on 10-19-2021 Bilirubin [Mass/Vol] 0.3 mg/dL 0.3-1.2 [facility] Serum or plasma total carbon dioxide measurement (moles/volume)Ordered By: Anders Sesay on 10-19-2021 CO2 [Moles/Vol] 24.2 mmol/L 22.0-30.0 [facility] Serum or plasma urea nitroge n measurement (mass/volume)Ordered By: Anders Sesay on 10-19-2021 Urea nitrogen [Mass/Vol] 7 mg/dL 9-23 [facility] Specific gravity Auto test s trip (U) [Rel density]Ordered By: Anders Sesay on 10-19-2021 Specific gravity (U) [Rel density] 1.014 1.001-1.030 [facility] Squamous epithelial cells de tection in urine sediment by light microscopyOrdered By: Anders Sesay on 10-19-2021 Epithelial cells.squamous LM Ql (Urine sed) 3-4 [HPF] [facility] Urine bacteria detection by automated methodOrdered By: Anders Sesay on 10-19-2021 Bacteria Auto Ql (U) 1+ None Seen [facility] Urine clarity by refractomet ry automatedOrdered By: Anders Sesay on 10-19-2021 Clarity Refractometry automated (U) Clear Clear [facility] Urine glucose measurement by automated test strip (mass/volume)Ordered By: Anders Sesay on 10-19-2021 Glucose Auto test strip (U) [Mass/Vol] Normal mg/dL Normal [facility] Urine hemoglobin detection b y automated test stripOrdered By: Anders Sesay on 10-19-2021 Hemoglobin Auto test strip Ql (U) Negative Negative [facility] Urine leukocyte esterase det ection by automated test stripOrdered By: Anders Sesay on 10-19-2021 Leukocyte esterase Auto test strip Ql (U) 1+ Negative [facility] Urobilinogen Auto test strip (U) [Mass/Vol]Ordered By: Anders Sesay on 10-19-2021 Urobilinogen (U) [Mass/Vol] Normal mg/dL Normal [facility] pH Auto test strip (U)Ordere d By: Anders Sesay on 10-19-2021 pH (U) 5.5 [pH] 5.0-9.0 [facility] US DUP ABD PEL RETRO SCROT [...] MD 07/14/20 Edited Result - FINAL Normal [facility] US NON OB TRANSVAGINALon US NON OB [...] MD 07/14/20 Edited Result - FINAL Normal [facility] Chlamydia/GC,DNA Ampon 07-10 Chlamydia Probe Negative Normal NEG [facility] Comment on above: Result Comment: CHLA MYDIA [...] Performed By: #### U HCG, UAMIC #### [employer] [address] [place] [address] [phone] Senior Electrical Controls Engineer: Campos Avilez MD Gonorrhea Probe Negative Normal NEG [facility] Comment on above: Result Comment: NEIS SERIA [...] Performed By: #### U HCG, UAMIC #### [employer] [address] [place] [id number] Senior Electrical Controls Engineer: Campos Avilez MD Cult,Urineon 07-09-2020 Cult,Urine Specimen Description .CLEAN CATCH URINE Special Requests NOT REPORTED Culture ESCHERICHIA COLI >[id number] CFU/ML Report Status FINAL 07/09/2020 SUSCEPTIBILITY Organism [...] <=20 SUSCEPTIBLE Piperacillin/Tazobac her <=4 SUSCEPTIBLE Normal [facility] Comment on above: Performed By: #### U HCG, UAMIC #### [employer] [address] [place] [address] [phone] Senior Electrical Controls Engineer: Campos Avilez MD ABO/Rh(D)on 07-08-2020 ABO/Rh(D) Positive Normal [facility] Comment on above: Performed By: #### A [facility] #### [place] [address] Senior Electrical Controls Engineer: Campos Avilez MD CBC with Diffon 07-08-2020 Abs. Basophil 0.04 k/uL Normal 0.00-0.20 [facility] Comment on above: Performed By: #### C P, CDP, COSMO, BHCG, MG, VD25, LIP #### [place] [address] Senior Electrical Controls Engineer: Campos Avilez MD Abs.Imm.Granulocyte 0.04 k/uL Normal 0.00-0.30 [facility] Comment on above: Performed By: #### C P, CDP, COSMO, BHCG, MG, VD25, LIP #### [place] [address] Senior Electrical Controls Engineer: Campos Avilez MD Abs.Neutrophil (Seg) 8.16 k/uL High 1.80-8.00 [facility] Comment on above: Performed By: #### C P, CDP, COSMO, BHCG, MG, VD25, LIP #### [place] [address] Senior Electrical Controls Engineer: Campos Avilez MD Basophils/100 WBC (Bld) 0 % Normal 0-2 [facility] Comment on above: Performed By: #### C P, CDP, COSMO, BHCG, MG, VD25, LIP #### [place] [address] Senior Electrical Controls Engineer: Campos Avilez MD Eosinophils (Bld) [#/Vol] 0.10 10*3/uL Normal 0.00-0.44 [facility] Comment on above: Performed By: #### C P, CDP, COSMO, BHCG, MG, VD25, LIP #### [address] [address] Senior Electrical Controls Engineer: Campos Avilez MD Eosinophils/100 WBC (Bld) 1 % Normal 1-4 [facility] Comment on above: Performed By: #### C P, CDP, COSMO, BHCG, MG, VD25, LIP #### [address] [address] Senior Electrical Controls Engineer: Campos Avilez MD Erythrocyte distribution width (RBC) [Ratio] 14.0 % Normal 11.8-14.4 [facility] Comment on above: Performed By: #### C P, CDP, COSMO, BHCG, MG, VD25, LIP #### [place] [address] Senior Electrical Controls Engineer: Campos Avilez MD Hematocrit (Bld) [Volume fraction] 34.3 % Low 36.3-47.1 [facility] Comment on above: Performed By: #### C P, CDP, COSMO, BHCG, MG, VD25, LIP #### [place] [address] Senior Electrical Controls Engineer: Campos Avilez MD Hemoglobin (Bld) [Mass/Vol] 11.1 g/dL Low 11.9-15.1 [facility] Comment on above: Performed By: #### C P, CDP, COSMO, BHCG, MG, VD25, LIP #### [place] [address] Senior Electrical Controls Engineer: Campos Avilez MD Immature granulocytes (Bld) [#/Vol] 0 % Normal 0 [facility] Comment on above: Performed By: #### C P, CDP, COSMO, BHCG, MG, VD25, LIP #### [address] [address] Senior Electrical Controls Engineer: Campos Avilez MD Lymphocytes (Bld) [#/Vol] 1.77 10*3/uL Normal 1.20-5.20 [facility] Comment on above: Performed By: #### C P, CDP, COSMO, BHCG, MG, VD25, LIP #### [place] [address] Senior Electrical Controls Engineer: Campos Avilez MD Lymphocytes/100 WBC (Bld) 16 % Low 25-45 [facility] Comment on above: Performed By: #### C P, CDP, COSMO, BHCG, MG, VD25, LIP #### [place] [address] Senior Electrical Controls Engineer: Campos Avilez MD MCH (RBC) [Entitic mass] 26.6 pg Normal 25.0-35.0 [facility] Comment on above: Performed By: #### C P, CDP, COSMO, BHCG, MG, VD25, LIP #### [place] [address] Senior Electrical Controls Engineer: Campos Avilez MD MCHC (RBC) [Mass/Vol] 32.4 g/dL Normal 28.4-34.8 [facility] Comment on above: Performed By: #### C P, CDP, COSMO, BHCG, MG, VD25, LIP #### [place] [address] Senior Electrical Controls Engineer: Campos Avilez MD MCV (RBC) [Entitic vol] 82.3 fL Normal 78.0-102.0 [facility] Comment on above: Performed By: #### C P, CDP, COSMO, BHCG, MG, VD25, LIP #### [place] [address] Senior Electrical Controls Engineer: Campos Avilez MD Monocytes (Bld) [#/Vol] 0.73 10*3/uL Normal 0.10-1.40 [facility] Comment on above: Performed By: #### C P, CDP, COSMO, BHCG, MG, VD25, LIP #### [address] [address] Senior Electrical Controls Engineer: Campos Avilez MD Monocytes/100 WBC (Bld) 7 % Normal 2-8 [facility] Comment on above: Performed By: #### C P, CDP, COSMO, BHCG, MG, VD25, LIP #### [address] [address] Senior Electrical Controls Engineer: Campos Avilez MD Neutrophil (Seg) 75 % High 34-64 [facility] Comment on above: Performed By: #### C P, CDP, COSMO, BHCG, MG, VD25, LIP #### [address] [address] Senior Electrical Controls Engineer: Campos Avilez MD NRBC Automated 0.0 per 100 WBC Normal 0.0 [facility] Comment on above: Performed By: #### C P, CDP, COSMO, BHCG, MG, VD25, LIP #### [address] [address] Senior Electrical Controls Engineer: Campos Avilez MD Platelet mean volume (Bld) [Entitic vol] 11.8 fL Normal 8.1-13.5 [facility] Comment on above: Performed By: #### C P, CDP, COSMO, BHCG, MG, VD25, LIP #### [address] [address] Senior Electrical Controls Engineer: Campos Avilez MD Platelets (Bld) [#/Vol] 288 10*3/uL Normal 138-453 [facility] Comment on above: Performed By: #### C P, CDP, COSMO, BHCG, MG, VD25, LIP #### [address] [address] Senior Electrical Controls Engineer: Campos Avilez MD RBC (Bld) [#/Vol] 4.17 10*6/uL Normal 3.95-5.11 [facility] Comment on above: Performed By: #### C P, CDP, COSMO, BHCG, MG, VD25, LIP #### [address] [address] Senior Electrical Controls Engineer: Campos Avilez MD WBC (Bld) [#/Vol] 10.8 10*3/uL Normal 4.5-13.5 [facility] Comment on above: Performed By: #### C P, CDP, COSMO, BHCG, MG, VD25, LIP #### [address] [address] Senior Electrical Controls Engineer: Campos Avilez MD Auto Diff Performed NOT REPORTED Normal [facility] Comment on above: Performed By: #### C P, CDP, COSMO, BHCG, MG, VD25, LIP #### [address] [address] Senior Electrical Controls Engineer: Campos Avilez MD Platelets (Bld) [#/Vol] NOT REPORTED Normal [facility] Comment on above: Performed By: #### C P, CDP, COSMO, BHCG, MG, VD25, LIP #### [address] [address] Senior Electrical Controls Engineer: Campos Avilez MD RBC morphology finding Nom (Bld) NOT REPORTED Normal [facility] Comment on above: Performed By: #### C P, CDP, COSMO, BHCG, MG, VD25, LIP #### [address] [address] Senior Electrical Controls Engineer: Campos Avilez MD WBC Morphology NOT REPORTED Normal [facility] Comment on above: Performed By: #### C P, CDP, COSMO, BHCG, MG, VD25, LIP #### [address] [address] Senior Electrical Controls Engineer: Campos Avilez MD Calcium, Ionicon 07-08-2020 Calcium [Mass/Vol] 1.18 mmol/L Normal 1.13-1.33 [facility] Comment on above: Performed By: #### I OCAL #### [facility] [employer] [address] [place] [address] [phone] Senior Electrical Controls Engineer: Campos Avilez MD Calcium, Ionizedon Calcium [Mass/Vol] 1.18 mmol/L 1.13 - 1. 33 mmol/L [facility] [place] [place] Comp Metabolic Profon 2020 (cont.) Normal [facility] Comment on above: Result Comment: Aver age GFR for <20 years old not available. Chronic Kidney Disease: <60 mL/min/1.73sq m Kidney failure: <15 mL/min/1.73sq m eGFR calculated using average adult body mass. Additional eGFR calculator available at: http://www.[employer]/multiple_crcl_2011.htm Performed By: #### C P, CDP, COSMO, BHCG, MG, VD25, LIP #### [facility] [employer] [address] [place] [address] [phone] Senior Electrical Controls Engineer: Campos Avilez MD Albumin [Mass/Vol] 2.3 g/dL Low 3.5-5.2 [facility] Comment on above: Performed By: #### C P, CDP, COSMO, BHCG, MG, VD25, LIP #### [facility] [address] [place] [address] [phone] Senior Electrical Controls Engineer: Campos Avilez MD Albumin/Globulin [Mass ratio] 0.9 {ratio} Low 1.0-2.5 [facility] Comment on above: Performed By: #### C P, CDP, COSMO, BHCG, MG, VD25, LIP #### [facility] [employer] [address] [place] [address] [phone] Senior Electrical Controls Engineer: Campos Avilez MD Alkaline Phos 41 U/L Normal 35-104 [facility] Comment on above: Result Comment: SPEC IMEN MODERATELY HEMOLYZED, RESULTS MAY BE ADVERSELY AFFECTED Performed By: #### C P, CDP, COSMO, BHCG, MG, VD25, LIP #### [address] [address] Senior Electrical Controls Engineer: Campos Avilez MD ALT [Catalytic activity/Vol] 11 U/L Normal 5-33 [facility] Comment on above: Result Comment: SPEC IMEN MODERATELY HEMOLYZED, RESULTS MAY BE ADVERSELY AFFECTED Performed By: #### C P, CDP, COSMO, BHCG, MG, VD25, LIP #### [address] [address] Senior Electrical Controls Engineer: Campos Avilez MD Anion gap [Moles/Vol] 9 mmol/L Normal 9-17 [facility] Comment on above: Performed By: #### C P, CDP, COSMO, BHCG, MG, VD25, LIP #### [address] [address] Senior Electrical Controls Engineer: Campos Avilez MD AST [Catalytic activity/Vol] 28 U/L Normal <32 [facility] Comment on above: Result Comment: SPEC IMEN MODERATELY HEMOLYZED, RESULTS MAY BE ADVERSELY AFFECTED Performed By: #### C P, CDP, COSMO, BHCG, MG, VD25, LIP #### [address] [address] Senior Electrical Controls Engineer: Campos Avilez MD Bilirubin Ql (U) <0.10 Low 0.3-1.2 [facility] Comment on above: Performed By: #### C P, CDP, COSMO, BHCG, MG, VD25, LIP #### [address] [address] Senior Electrical Controls Engineer: Campos Avilez MD Calcium [Mass/Vol] 5.5 mg/dL Critically low 8.6-10.4 [facility] Comment on above: Performed By: #### C P, CDP, COSMO, BHCG, MG, VD25, LIP #### [address] [address] Senior Electrical Controls Engineer: Campos Avilez MD Chloride [Moles/Vol] 118 mmol/L High 98-107 [facility] Comment on above: Performed By: #### C P, CDP, COSMO, BHCG, MG, VD25, LIP #### [address] [address] Senior Electrical Controls Engineer: Campos Avilez MD CO2 [Moles/Vol] 14 mmol/L Low 20-31 [facility] Comment on above: Performed By: #### C P, CDP, COSMO, BHCG, MG, VD25, LIP #### [address] [address] Senior Electrical Controls Engineer: Campos Avilez MD Creatinine [Mass/Vol] 0.60 mg/dL Normal 0.50-0.90 [facility] Comment on above: Performed By: #### C P, CDP, COSMO, BHCG, MG, VD25, LIP #### [address] [address] Senior Electrical Controls Engineer: Campos Avilez MD GFR,non Amer Pediatric GFR requires additional information. Refer to NKDEP website for Normal >60 [facility] Comment on above: Result Comment: calc ulator. Performed By: #### C P, CDP, CSOMO, BHCG, MG, VD25, LIP #### [address] [address] Senior Electrical Controls Engineer: Campos Avilez MD Glucose [Mass/Vol] 84 mg/dL Normal 70-99 [facility] Comment on above: Performed By: #### C P, CDP, COSMO, BHCG, MG, VD25, LIP #### [address] [address] Senior Electrical Controls Engineer: Campos Avilez MD Potassium [Moles/Vol] 5.1 mmol/L Normal 3.7-5.3 [facility] Comment on above: Result Comment: SPEC IMEN MODERATELY HEMOLYZED, RESULTS MAY BE ADVERSELY AFFECTED Performed By: #### C P, CDP, COSMO, BHCG, MG, VD25, LIP #### [address] [address] Senior Electrical Controls Engineer: Campos Avilez MD Protein [Mass/Vol] 5.0 g/dL Low 6.4-8.3 [facility] Comment on above: Performed By: #### C P, CDP, COSMO, BHCG, MG, VD25, LIP #### [address] [address] Senior Electrical Controls Engineer: Campos Avilez MD Sodium [Moles/Vol] 141 mmol/L Normal 135-144 [facility] Comment on above: Performed By: #### C P, CDP, COSMO, BHCG, MG, VD25, LIP #### [address] [address] Senior Electrical Controls Engineer: Campos Avilez MD Urea nitrogen [Mass/Vol] 10 mg/dL Normal 6-20 [facility] Comment on above: Performed By: #### C P, CDP, COSMO, BHCG, MG, VD25, LIP #### [address] [address] Senior Electrical Controls Engineer: Campos Avilez MD BUN/CRE Ratio NOT REPORTED Normal 9-20 [facility] Comment on above: Performed By: #### C P, CDP, COSMO, BHCG, MG, VD25, LIP #### [address] [address] Senior Electrical Controls Engineer: Campos Avilez MD GFR, Amer NOT REPORTED Normal >60 [facility] Comment on above: Performed By: #### C P, CDP, COSMO, BHCG, MG, VD25, LIP #### [address] [phone] Senior Electrical Controls Engineer: Campos Avilez MD Staging: NOT REPORTED Normal [facility] Comment on above: Performed By: #### C P, CDP, COSMO, BHCG, MG, VD25, LIP #### [address] [address] Senior Electrical Controls Engineer: Campos Avilez MD HCG, ,Urineon 07-08 Beta HCG ( test) Ql (U) Negative Normal NEG [facility] Comment on above: Result Comment: Spec imens [...] By: #### U HCG, UAMIC #### [address] [address] Senior Electrical Controls Engineer: Campos Avilez MD HCG, Quanton 07-08-2020 HCG, Quant <1 Normal <5 [facility] Comment on above: Result Comment: Non-preg premeno [...] COSMO, BHCG, MG, VD25, LIP #### [address] [address] Senior Electrical Controls Engineer: Campos Avilez MD Lipaseon 07-08-2020 Lipase [Catalytic activity/Vol] 15 U/L Normal 13-60 [facility] Comment on above: Performed By: #### C P, CDP, COSMO, BHCG, MG, VD25, LIP #### [facility] [address] [place], [place] [phone] Senior Electrical Controls Engineer: Campos Avilez MD Magnesiumon 07-08-2020 Magnesium [Mass/Vol] 1.2 mg/dL Low 1.7-2.2 [facility] Comment on above: Performed By: #### C P, CDP, COSMO, BHCG, MG, VD25, LIP #### [facility] [address] [place], [place] [phone] Senior Electrical Controls Engineer: Campos Avilez MD Interpretation and review of laboratory results Abnormal [place], [place] Magnesium [Mass/Vol] 1.2 mg/dL Low 1.7 - 2 .2 mg/dL [place] Otheron 07-08-2020 Direct Exam Negative [place], [place] , URINEon Beta HCG ( test) Ql (U) Negative NEGATIVE [place] Comment on above: Specimens with hCG [...] 2.6 mg/dL 2.5 - 4 .8 mg/dL [place], [place] Phosphorus, Inorg.on 021 Phosphorus, Inorg. 2.6 mg/dL Normal 2.5-4.8 [facility] Comment on above: Performed By: #### U HCG, UAMIC #### [facility] [address] [place] [address] Senior Electrical Controls Engineer: Campos Avilez MD US NON OB TRANSVAGINALon Elia, Mhpn Incoming Radiant Results From [employer] - 07/08/2020 12:31 AM EST EXAMINATION: PELVIC [...] No evidence of ovarian torsion is noted. [place], [place] Unremarkable pelvic ultrasound. No evidence of ovarian torsion is noted. [place], [place] EXAMINATION: PELVIC ULTRASOUND 07/07/2020 TECHNIQUE: Transvaginal [...] Free Fluid: No evidence of free fluid. [place] Urinalysis w/ Microon 2020 ----- Normal [facility] Comment on above: Performed By: #### U HCG, UAMIC #### [employer] [address] [place] [address] Senior Electrical Controls Engineer: Campos Avilez MD Acetoacetic Acid,Ur Negative Normal NEG [facility] Comment on above: Performed By: #### U HCG, UAMIC #### [address] [address] Senior Electrical Controls Engineer: Campos Avilez MD Bacteria LM.HPF (Urine sed) [#/Area] MANY Abnormal NONE [facility] Comment on above: Performed By: #### U HCG, UAMIC #### [address] [address] Senior Electrical Controls Engineer: Campos Avilez MD Bilirubin, SemiQt,Ur Negative Normal NEG [facility] Comment on above: Performed By: #### U HCG, UAMIC #### [address] [address] Senior Electrical Controls Engineer: Campos Avilez MD Color (U) ORANGE Abnormal YEL [facility] Comment on above: Result Comment: INTE RPRET WITH CAUTION DUE TO INTENSE COLOR OF URINE. Performed By: #### U HCG, UAMIC #### [address] [address] Senior Electrical Controls Engineer: Campos Avilez MD Epithelial cells LM.HPF (Urine sed) [#/Area] 0 TO 2 Normal 0-5 [facility] Comment on above: Performed By: #### U HCG, UAMIC #### [address] [address] Senior Electrical Controls Engineer: Campos Avilez MD Glucose Ql (U) Negative Normal NEG [facility] Comment on above: Performed By: #### U HCG, UAMIC #### [address] [address] Senior Electrical Controls Engineer: Campos Avilez MD Hemoglobin, Ur LARGE Abnormal NEG [facility] Comment on above: Performed By: #### U HCG, UAMIC #### [address] [address] Senior Electrical Controls Engineer: Campos Avilez MD Leukocyte esterase Test strip Ql (U) MODERATE Abnormal NEG [facility] Comment on above: Performed By: #### U HCG, UAMIC #### [address] [address] Senior Electrical Controls Engineer: Campos Avilez MD Nitrite,Ur Positive Abnormal NEG [facility] Comment on above: Performed By: #### U HCG, UAMIC #### [address] [address] Senior Electrical Controls Engineer: Campos Avilez MD pH (U) 5.5 [pH] Normal 5.0-8.0 [facility] Comment on above: Performed By: #### U HCG, UAMIC #### [place] [address] Senior Electrical Controls Engineer: Campos Avilez MD Protein Ql (U) 2+ Abnormal NEG [facility] Comment on above: Performed By: #### U HCG, UAMIC #### [place] [address] Senior Electrical Controls Engineer: Campos Avilez MD RBC (U) [#/Vol] 50 TO 100 Normal 0-4 [facility] Comment on above: Result Comment: Refe rence range defined for non-centrifuged specimen. Performed By: #### U HCG, UAMIC #### [place] [address] Senior Electrical Controls Engineer: Campos Avilez MD Specific gravity (U) [Rel density] 1.021 Normal 1.005-1.030 [facility] Comment on above: Performed By: #### U HCG, UAMIC #### [address] [address] Senior Electrical Controls Engineer: Campos Avilez MD Turbidity TURBID Abnormal CLEAR [facility] Comment on above: Performed By: #### U HCG, UAMIC #### [address] [address] Senior Electrical Controls Engineer: Campos Avilez MD Urobilinogen,Ur Normal Normal NORM [facility] Comment on above: Performed By: #### U HCG, UAMIC #### [address] [address] Senior Electrical Controls Engineer: Campos Avilez MD WBC (U) [#/Vol] TOO NUMEROUS TO COUNT Normal 0-5 [facility] Comment on above: Performed By: #### U HCG, UAMIC #### [address] [address] Senior Electrical Controls Engineer: Campos Avilez MD Amorphous sediment LM Ql (Urine sed) NOT REPORTED Normal NONE [facility] Comment on above: Performed By: #### U HCG, UAMIC #### [address] [address] Senior Electrical Controls Engineer: Campos Avilez MD Casts LM.LPF (Urine sed) [#/Area] NOT REPORTED Normal 0-8 [facility] Comment on above: Performed By: #### U HCG, UAMIC #### [address] [address] Senior Electrical Controls Engineer: Campos Avilez MD Crystals LM Nom (Urine sed) NOT REPORTED Normal [facility] Comment on above: Performed By: #### U HCG, UAMIC #### [address] [address] Senior Electrical Controls Engineer: Campos Avilez MD Epithelial, Renal NOT REPORTED Normal 0 [facility] Comment on above: Performed By: #### U HCG, UAMIC #### [address] [address] Senior Electrical Controls Engineer: Campos Avilez MD Mucus Strands NOT REPORTED Normal [facility] Comment on above: Performed By: #### U HCG, UAMIC #### [address] [address] Senior Electrical Controls Engineer: Campos Avilez MD Other Observations NOT REPORTED Normal NREQ [facility] Comment on above: Performed By: #### U HCG, UAMIC #### [id number] [place], [place] [id number] Senior Electrical Controls Engineer: Campos Avilez MD Trichomonas NOT REPORTED Normal NONE [facility] Comment on above: Performed By: #### U HCG, UAMIC #### [address] [id number] Senior Electrical Controls Engineer: Campos Avilez MD Yeast LM Ql (Urine sed) NOT REPORTED Normal NONE [facility] Comment on above: Performed By: #### U HCG, UAMIC #### [address] [phone] Senior Electrical Controls Engineer: Campos Avilez MD Urinalysis with microscopico n 07-08-2020 Amorphous, UA NOT REPORTED None [place] Bacteria, UA MANY Abnormal None [place] Bilirubin Urine Negative NEGATIVE [place] Casts UA NOT REPORTED [place] Color, UA ORANGE Abnormal YELLOW [place] Comment on above: INTERPRET WITH CAUTI ON DUE TO INTENSE COLOR OF URINE. Crystals, UA NOT REPORTED None /HPF [place] Epithelial Cells UA 0 TO 2 [place] Glucose, Ur Negative NEGATIVE [place] Interpretation and review of laboratory results Abnormal [place] Ketones Ql (U) Negative NEGATIVE [place] Leukocyte esterase Test strip Ql (U) MODERATE Abnormal NEGATIVE [place] Mucus, UA NOT REPORTED None [place] Nitrite, Urine Positive Abnormal NEGATIVE [place] Other Observations UA NOT REPORTED NOT REQ. [place] pH, UA 5.5 [place] Protein (U) [Mass/Vol] 2+ Abnormal NEGATIVE [place] RBC (U) [#/Vol] 50 TO 100 [place] Comment on above: Reference range defi sonia for non-centrifuged specimen. Renal Epithelial, UA NOT REPORTED 0 /HPF [place], [place] Specific [place], UA 1.021 [place], [place] Trichomonas, UA NOT REPORTED None [place] Turbidity UA TURBID Abnormal CLEAR [place] Urine Hgb LARGE Abnormal NEGATIVE [place] Urobilinogen, Urine Normal Normal [place] WBC, UA TOO NUMEROUS TO COUNT [place] Yeast, UA NOT REPORTED None [place] - [place] VAGINITIS DNA PROBEon 2020 Direct Exam Positive Abnormal [place] Direct Exam Method of testing is a DNA probe intended for detection and identification of Samantha species, Gardnerella vaginalis, and Trichomonas vaginalis nucleic acid in vaginal fluid specimens from patients with symptoms of vaginitis/vaginosis. [place] Interpretation and review of laboratory results Abnormal [place] Special Requests NOT REPORTED [place] Specimen Description .VAGINA [place] Vaginitis DNA Probeon 2020 Vaginitis DNA [...] of vaginitis/vaginosis. Report Status FINAL 07/08/2020 Normal [facility] Comment on above: Performed By: #### U HCG, UAMIC #### [facility] [employer] [address] [place] [id number] Senior Electrical Controls Engineer: Campos Avilez MD Vitamin D 25 Hydroxyon 07-08 Interpretation and review of laboratory results Abnormal [place] Vit D, 25-Hydroxy 12.1 ng/mL Low 30 - 100 ng/mL [place] Comment on above: Reference Range: Vitamin D status Range Deficiency <20 ng/mL Mild Deficiency 20-30 ng/mL Sufficiency 30-100 ng/mL Toxicity >100 ng/mL Vitamin D 25 OHon 07-08-2020 Vitamin D 25 OH 12.1 ng/mL Low 30.0-100.0 [facility] Comment on above: Result Comment: Reference Range: Vitamin D status Range Deficiency <20 ng/mL Mild Deficiency 20-30 ng/mL Sufficiency 30-100 ng/mL Toxicity >100 ng/mL Performed By: #### U HCG, UAMIC #### [facility] [address] [place] [address] Senior Electrical Controls Engineer: Campos Avilez MD ABO/RHon 07-07-2020 ABO/Rh Positive [place] CBC WITH AUTO DIFFERENTIALon 07-07-2020 Basophils (Bld) [#/Vol] 0.04 10*3/uL [place] Basophils/100 WBC (Bld) 0 % 0 - 2 % [place] Differential Type NOT REPORTED [place] Eosinophils (Bld) [#/Vol] 0.10 10*3/uL [place] Eosinophils/100 WBC (Bld) 1 % 1 - 4 % [place] Erythrocyte distribution width (RBC) [Ratio] 14.0 % 11.8 - 14.4 % [place] Hematocrit (Bld) [Volume fraction] 34.3 % Low 36.3 - 47.1 % [place] Hemoglobin (Bld) [Mass/Vol] 11.1 g/dL Low 11.9 - 15.1 g/dL [place] Immature granulocytes (Bld) [#/Vol] 0 % 0 [place] Immature granulocytes (Bld) [#/Vol] 0.04 10*3/uL [place] Interpretation and review of laboratory results Abnormal [place] Lymphocytes (Bld) [#/Vol] 1.77 10*3/uL [place] Lymphocytes/100 WBC (Bld) 16 % Low 25 - 45 % [place] MCH (RBC) [Entitic mass] 26.6 pg 25 - 35 pg [place] MCHC (RBC) [Mass/Vol] 32.4 g/dL 28.4 - 34.8 g/dL [place] MCV (RBC) [Entitic vol] 82.3 fL 78 - 102 fL [place] Monocytes (Bld) [#/Vol] 0.73 10*3/uL [place] Monocytes/100 WBC (Bld) 7 % 2 - 8 % [place] Platelet mean volume (Bld) [Entitic vol] 11.8 fL 8.1 - 13.5 fL [place] Platelets (Bld) [#/Vol] NOT REPORTED [place] Platelets (Bld) [#/Vol] 288 10*3/uL [place] RBC (Bld) [#/Vol] 4.17 10*6/uL 3.95 - 5.1 1 m/uL [place] RBC morphology finding Nom (Bld) NOT REPORTED [place] Segmented neutrophils/100 WBC (Bld) 75 % High 34 - 64 % [place] Segs Absolute 8.16 [place] WBC (Bld) [#/Vol] 0.0 10*3/uL 0.0 per 10 0 WBC [place] WBC (Bld) [#/Vol] 10.8 10*3/uL [place] WBC Morphology NOT REPORTED [place] COMPREHENSIVE METABOLIC PANE Mikie 07-07-2020 Albumin [Mass/Vol] 2.3 g/dL Low 3.5 - 5.2 g/dL [place] Albumin/Globulin [Mass ratio] 0.9 {ratio} Low [place] ALP [Catalytic activity/Vol] 41 U/L 35 - 104 U/L [place] Comment on above: SPECIMEN MODERATELY HEMOLYZED, RESULTS MAY BE ADVERSELY AFFECTED ALT [Catalytic activity/Vol] 11 U/L 5 - 33 U/L [place] Comment on above: SPECIMEN MODERATELY HEMOLYZED, RESULTS MAY BE ADVERSELY AFFECTED Anion gap [Moles/Vol] 9 mmol/L 9 - 17 mmol/L [place] AST [Catalytic activity/Vol] 28 U/L <32 [place] Comment on above: SPECIMEN MODERATELY HEMOLYZED, RESULTS MAY BE ADVERSELY AFFECTED Bilirubin Ql (U) <0.10 Low 0.3 - 1.2 mg/dL [place] Bun/Cre Ratio NOT REPORTED [place] Calcium [Mass/Vol] 5.5 mg/dL Critically low 8.6 - 1 0.4 mg/dL [place] Chloride [Moles/Vol] 118 mmol/L High 98 - 10 7 mmol/L [place] CO2 [Moles/Vol] 14 mmol/L Low 20 - 31 mmol/L [place] Creatinine [Mass/Vol] 0.6 mg/dL 0.5 - 0.9 mg/dL [place] GFR NOT REPORTED >60 mL/min [place] GFR Non- Pediatric GFR requires additional information. Refer to [facility] website for calculator. >60 mL/min [place] GFR/1.73 sq M predicted among non-blacks MDRD (S/P/Bld) [Vol rate/Area] NOT REPORTED [place] GFR/1.73 sq M predicted among non-blacks MDRD (S/P/Bld) [Vol rate/Area] [place] Comment on above: Average GFR for <20 years old not available. Chronic Kidney Disease: <60 mL/min/1.73sq m Kidney failure: <15 mL/min/1.73sq m eGFR calculated using average adult body mass. Additional eGFR calculator available at: http://www.[employer]ibrenetix/multiple_crcl_2012.htm Glucose [Mass/Vol] 84 mg/dL 70 - 99 mg/dL [place] Interpretation and review of laboratory results Abnormal [place] Potassium [Moles/Vol] 5.1 mmol/L 3.7 - 5.3 mmol/L [place] Comment on above: SPECIMEN MODERATELY HEMOLYZED, RESULTS MAY BE ADVERSELY AFFECTED Protein [Mass/Vol] 5.0 g/dL Low 6.4 - 8.3 g/dL [place] Sodium [Moles/Vol] 141 mmol/L 135 - 144 mmol/L [place] Urea nitrogen [Mass/Vol] 10 mg/dL 6 - 20 mg/dL [place] HCG, QUANTITATIVE, on 07-07-2020 hCG Quant <1 <5 IU/L [place] Comment on above: Non-preg premeno <=5 [...] activity/Vol] 15 U/L 13 - 60 U/L [place] Vital Signs Date Time Vital Sign Value Performing Clinician Facility 03-16-2024 15:34-0400 Body weight 146.06 kg [employer] Work Phone: [facility] 03-16-2024 15:34-0400 Diastolic blood pressure 72 mm[Hg] Chung Benja DO Work Phone: [facility] 03-16-2024 15:34-0400 Systolic blood pressure 116 mm[Hg] Chung Benja DO Work Phone: [facility] 02-16-2024 11:09-0400 Body weight 142.94 kg Halima CONDE Work Phone: [facility] 02-16-2024 11:09-0400 Diastolic blood pressure 70 mm[Hg] Halima CONDE Work Phone: [facility] 02-16-2024 11:09-0400 Systolic blood pressure 120 mm[Hg] Halima CONDE Work Phone: [facility] 02-10-2024 13:16-0400 Body weight 145.[address] [employer] DO Work Phone: [facility] 02-10-2024 13:16-0400 Diastolic blood pressure 82 mm[Hg] Chung Benja [employer] Work Phone: [facility] 02-10-2024 13:16-0400 Systolic blood pressure 124 mm[Hg] Chung Benja DO Work Phone: [facility] 01-28-2024 15:23-0400 Body weight 153.77 kg Chung Benja DO Work Phone: [facility] 01-28-2024 15:23-0400 Diastolic blood pressure 86 mm[Hg] Chung Benja DO Work Phone: [facility] 01-28-2024 15:23-0400 Systolic blood pressure 130 mm[Hg] Chung Benja DO Work Phone: [facility] 01-21-2024 13:24-0400 Body weight 153.54 kg Chung Benja DO Work Phone: [facility] 01-21-2024 13:24-0400 Diastolic blood pressure 82 mm[Hg] Chung Benja DO Work Phone: [facility] 01-21-2024 13:24-0400 Systolic blood pressure 126 mm[Hg] Chung Benja DO Work Phone: [facility] 10-26-2023 03:30-0400 [employer] Fuentes Florentino [facility] Comment on above: Result Comment: pt discharged off unit 10-26-2023 03:15-0400 [employer] Fuentes Florentino [facility] Comment on above: Result Comment: went over discharge inst ructions. educated pt on importance of contacting primary provider with future concerns, pisking up antibiotic prescription tomorrow, and calling is symtpoms return or get worse. 10-26-2023 00:00-0400 Blood Pressure Location Fuentes Mishel [facility] 10-26-2023 00:00-0400 Body temperature 98.6 [degF] Fuentes Mishel [facility] 10-26-2023 00:00-0400 Diastolic blood pressure 68 mm[Hg] Fuentes Mishel [facility] 10-26-2023 00:00-0400 Heart rate 101 /min Fuenets Florentino [facility] 10-26-2023 00:00-0400 Hourly Rounding Fuentes Florentino [facility] 10-26-2023 00:00-0400 Mean blood pressure 86 mm[Hg] Fuentes Florentino [facility] 10-26-2023 00:00-0400 Respiratory rate 16 /min Fuentes Florentino [facility] 10-26-2023 00:00-0400 Systolic blood pressure 122 mm[Hg] Fuentes Florentino [facility] 07-17-2023 11:42-0500 Body weight 127.82 kg Chung Benja [employer] Work Phone: [facility] 07-17-2023 11:42-0500 Diastolic blood pressure 70 mm[Hg] [email or web address] DO Work Phone: [facility] 07-17-2023 11:42-0500 Systolic blood pressure 118 mm[Hg] Chung Benja [employer] Work Phone: [facility] 10-19-2021 01:12-0400 Diastolic blood pressure 62 mm[Hg] PHYSICIAN [facility] 10-19-2021 01:12-0400 Heart rate 89 /min PHYSICIAN [facility] 10-19-2021 01:12-0400 Respiratory rate 18 /min PHYSICIAN [facility] 10-19-2021 01:12-0400 SaO2% (BldA) [Mass fraction] 100 % PHYSICIAN [facility] 10-19-2021 01:12-0400 Systolic blood pressure 130 mm[Hg] PHYSICIAN [facility] 10-18-2021 23:10-0400 Body height 167.64 cm PHYSICIAN [facility] 10-18-2021 23:10-0400 Body mass index (BMI) [Percentile] Per age and sex 99.1 % PHYSICIAN [facility] 10-18-2021 23:10-0400 Body mass index (BMI) [Ratio] 48.2 kg/m2 PHYSICIAN [facility] 10-18-2021 23:10-0400 Body weight 135.5 kg PHYSICIAN [facility] 10-18-2021 23:08-0400 Body temperature 98.4 [degF] PHYSICIAN [facility] 07-07-2020 21:51-0500 BMI (Body Mass Index) 42.93 kg/m2 [place] 07-07-2020 21:51-0500 Body weight 120.66 kg [place] 07-07-2020 21:51-0500 BP Diastolic 85 mm[Hg] [facility] [place] [place] 07-07-2020 21:51-0500 BP Systolic 136 mm[Hg] [facility] [place] 07-07-2020 21:51-0500 Height 167.6 cm [facility] [place] 07-07-2020 21:51-0500 Pulse (Heart Rate) 93 /min [place] 07-07-2020 21:51-0500 Pulse Oximetry 97 % [facility] [place] 07-07-2020 21:51-0500 Respiratory Rate 18 /min [place] 07-07-2020 21:48-0500 Body Temperature 97.11 [degF] [place] Encounters Encounter Date Encounter Type Care Provider Facility Start: 03-16-2024 End: 03-16-2024 ambulatory CHUNG BENJA Not Available Start: 03-16-2024 End: 03-16-2024 Office outpatient visit 15 minutes Chung Benja DO Work Phone: [facility] Comment on above: 6 weeks f ollow-up Start: 02-16-2024 End: 02-16-2024 Bamboo flowsheet Halima CONDE Work Phone: [facility] Start: 02-16-2024 End: 02-16-2024 Bamboo flowsheet Halima CONDE Work Phone: [facility] Start: 02-16-2024 End: 02-16-2024 ambulatory HALIMA CULLEN Not Available Start: 02-16-2024 End: 02-16-2024 care visit Halima CONDE Work Phone: [facility] Comment on above: S/P section ; Vaginal bleeding Start: 02-10-2024 End: 02-10-2024 Bamboo flowsheet Chung Benja DO Work Phone: [facility] Start: 02-10-2024 End: 02-10-2024 Bamboo flowsheet Chung Benja DO Work Phone: [facility] Start: 02-10-2024 End: 02-10-2024 ambulatory CHUNG BENJA Not Available Start: 02-10-2024 End: 02-10-2024 Postop follow up visit related to original px Chung Benja DO Work Phone: [facility] Comment on above: S/P section Start: 01-28-2024 End: 01-28-2024 Office outpatient visit 15 minutes Chung Benja DO Work Phone: [facility] Comment on above: Third trimester preg yesika; Excessive growth affecting management of in third trimester, single or unspecified fetus Start: 01-28-2024 End: 01-28-2024 ambulatory CHUNG BENJA Not Available Start: 01-21-2024 End: 01-21-2024 ambulatory CHUNG BENJA Not Available Start: 01-21-2024 End: 01-21-2024 Office outpatient visit 15 minutes Chung Benja DO Work Phone: [facility] Comment on above: 36 weeks gestation o f ; Third trimester ; Excessive growth affecting management of , antepartum, single or unspecified fetus Start: 01-14-2024 End: 01-14-2024 ambulatory CHUNG BENJA Not Available Start: 12-31-2023 End: 12-31-2023 ambulatory HALIMA SUBHASH Not Available Start: 12-17-2023 End: 12-17-2023 ambulatory HALIMA SUBHASH Not Available Start: 12-03-2023 End: 12-03-2023 ambulatory CHUNG BENJA Not Available Start: 11-19-2023 End: 11-19-2023 ambulatory CHUNG BENJA Not Available Start: 11-04-2023 End: 11-04-2023 ambulatory HALIMA SUBHASH Not Available Start: 10-26-2023 End: 10-26-2023 ambulatory Fuentes Florentino [place] Start: 10-25-2023 End: 10-26-2023 OB Triage Fuentes Florentino [facility] Start: 10-07-2023 End: 10-07-2023 ambulatory [...] ambulatory DR DELON NAJERA . Facility:[facility] Start: 10-18-2021 End: 10-19-2021 Emergency department patient visit PHYSICIAN NO FAMILY [facility] Start: 07-07-2020 End: 07-08-2020 Emergency department patient visit DAVID AQUINO [facility] Start: 07-07-2020 End: 07-08-2020 Emergency department patient visit Lisa Land Work Phone: [facility] ED Comment on above: BV (bacterial vagino sis) (Primary Dx); Vaginal bleeding; Hypomagnesemia; Vitamin D deficiency; Acute cystitis with hematuria Procedures Date Procedure Procedure Detail Performing Clinician Start: 01-28-2024 Urnls dip stick/tabl et rgnt non-auto w/o micrscp Chung Benja DO Work Phone: Start: 01-21-2024 Urnls dip stick/tabl et rgnt non-auto w/o micrscp Chung Benja DO Work Phone: Start: 07-17-2023 Urnls dip stick/tabl et rgnt [...] Stoner Work Phone: Start: 07-07-2020 Blood typing serolog ic abo Brenda Stoner Work Phone: Start: 07-07-2020 [...] chorion ic quantitative Brenda Stoner Work Phone: H/O: section S/P sectio n Halima CONDE Work Phone: H/O: section S/P sectio n Chung Yousif DO Work Phone: Plan of Treatment Date Care Activity Detail Author Start: 03-22-2025 End: 03-22-2025 Patient encounter procedure 03/22/2025 2:00 PM EDT Office Visit [facility] [address] [facility] [place] [phone] Chung Yousif DO [address] [place] [address] [facility] Start: 03-16-2024 End: 03-16-2024 ambulatory 03/16/2024 2:50 PM EDT Visit [facility] [address] [place] [phone] Chung Yousif, DO [address] [place] [address] [facility] Start: 02-16-2024 End: 02-16-2024 Professional / ancillary services management 02/16/2024 2:00 PM EDT Ancillary Procedure [facility] [address] [place] [phone] [facility] Start: 02-16-2024 End: 02-15-2025 US for US PELVIS-TRANSVAG IF INDICATED Imaging Routine S/P section Vaginal bleeding Expected: 02/16/2024 (Approximate), Expires: 02/15/2025 [facility] Work Phone: Comment on above: Expected: 02/16/2024 (Approximate), Expires: 02/15/2025 Start: 02-04-2024 End: 02-04-2024 Patient encounter procedure 02/04/2024 2:30 PM EDT Routine [facility] [address] [place] [phone] Chung Yousif, DO [address] [place] [address] [facility] Start: 01-28-2024 End: 01-28-2024 Patient encounter procedure 01/28/2024 3:30 PM EDT Routine [facility] [address] [place] [phone] Chung Yousif, DO [address] [place] [address] [facility] Start: 01-28-2024 End: 01-28-2024 Professional / ancillary services management 01/28/2024 2:30 PM EDT Ancillary Procedure [facility] [address] [phone] [facility] Start: 01-21-2024 End: 01-20-2025 US for US OB SCAN FOR GROWTH Imaging Routine Excessive growth affecting management of , antepartum, single or unspecified fetus Expected: 01/21/2024 (Approximate), Expires: 01/20/2025 [facility] Work Phone: Comment on above: Expected: 01/21/2024 (Approximate), Expires: 01/20/2025 Start: 08-14-2023 End: 08-14-2023 Patient encounter procedure 08/14/2023 11:20 AM EDT Routine [facility] [address] [place] [phone] Halima Cullen PA [address] [place], [place] [phone] [facility] Start: 07-17-2023 End: 07-17-2024 US for US OB VIABLILITY Imaging Routine with uncertain viability, single or unspecified fetus Expected: 07/17/2023 (Approximate), Expires: 07/17/2024 [facility] Work Phone: Comment on above: Expected: [...] Missed menses Expected: 07/03/2023 (Approximate), Expires: 07/03/2024 [facility] Comment on above: Expected: 07/03/2023 (Approximate), Expires: 07/03/2024 Start: 02-01-2020 Influenza vaccination Flu vaccine (# 1) [place] Start: 2018 Meningococcal (ACWY) vaccine (1 - 2-dose series) Meningococcal (ACWY) vaccine (1 - 2-dose series) [place] Start: 2018 Screening for Chlamy nancy trachomatis Chlamydia screen [place] Start: 2017 HIV screening HIV screen [place], [place] Start: 2013 HPV vaccine (1 - 2-d ose series) HPV vaccine (1 - 2-dose series) [place] Start: 2009 DTaP/Tdap/Td vaccine (1 - Tdap) DTaP/Tdap/Td vaccine (1 - Tdap) [place] Start: 2003 Hepatitis A vaccine (1 of 2 - 2-dose series) Hepatitis A vaccine (1 of 2 - 2-dose series) [place] Start: 2003 Measles,Mumps,Rubell a (MMR) vaccine (1 of 2 - Standard series) Measles,Mumps,Rubella (MMR) vaccine (1 of 2 - Standard series) [place] Start: 2003 Varicella vaccine (1 of 2 - 2-dose childhood series) Varicella vaccine (1 of 2 - 2-dose childhood series) [place] Start: 2002 Hepatitis B vaccine (1 of 3 - 3-dose primary series) Hepatitis B vaccine (1 of 3 - 3-dose primary series) [place] Start: 2002 Hepatitis C screening Hepatitis C sc reen [place] Bacteria identified in Urine by Culture Urine culture Microbiology Routine Missed menses Ordered: 07/03/2023 [facility] Comment on above: Ordered: 07/03/2023 End: 07-07-2020 C.trachomatis N.gonorrhoeae DNA C.trachomatis N.gonorrhoeae DNA Microbiology STAT One Time for 1 Occurrences starting 07/07/2020 until 07/07/2020 [place] Comment on above: One Time for 1 Occur rences starting 07/07/2020 until 07/07/2020 C.trachomatis N.gonorrhoeae DNA C.trachomatis N.gonorrhoeae DNA Microbiology Stat [employer] Label print 07/07/2020 11:20 PM [place] End: 07-08-2020 Calcium, Ionized Calcium, Ionized Lab STAT One Time for 1 Occurrences starting 07/08/2020 until 07/08/2020 [place] Comment on above: One Time for 1 Occur rences starting 07/08/2020 until 07/08/2020 CBC W Auto Different ial panel - Blood CBC and differential Lab Routine Missed menses Ordered: 07/03/2023 [facility] Comment on above: Ordered: 07/03/2023 End: 07-07-2020 Culture, Urine Culture, Urine Microbiology STAT One Time for 1 Occurrences starting 07/07/2020 until 07/07/2020 [place] Comment on above: One Time for 1 Occur rences starting 07/07/2020 until 07/07/2020 Culture, Urine Culture, Urine Microbiology Stat [employer] Label print 07/07/2020 10:56 PM [place] Hemoglobin A1c measurement Hemoglobin A1c Lab Routine Missed menses Ordered: 07/03/2023 [facility] Comment on above: Ordered: 07/03/2023 Hepatitis B virus surface Ag [Presence] in Serum or Plasma by Immunoassay Hepatitis B surface antigen Lab Routine Missed menses Ordered: 07/03/2023 [facility] Comment on above: Ordered: 07/03/2023 Hepatitis C virus Ab [Presence] in Serum or Plasma by Immunoassay Hepatitis C antibody Lab Routine Missed menses Ordered: 07/03/2023 [facility] Comment on above: Ordered: 07/03/2023 HIV-1/HIV-2 antigen/antibody combination immunoassay HIV-1 and HIV-2 antibodies Lab Routine Missed menses Ordered: 07/03/2023 [facility] Comment on above: Ordered: 07/03/2023 Patient Education Common Breast Problems Pelvic Pain ED [facility] Work Phone: Patient referral [facility] Work Phone: Reagin Ab [Presence] in Serum by RPR RPR Lab Routine Missed menses Ordered: 07/03/2023 [facility] Comment on above: Ordered: 07/03/2023 Rubella antibody, IgG Rubella an tibody, IgG Lab Routine Missed menses Ordered: 07/03/2023 [facility] Comment on above: Ordered: 07/03/2023 End: 07-07-2020 US DUP ABD PEL RETRO SCROT LIMITED US DUP ABD PEL RETRO SCROT LIMITED Imaging STAT Once for 1 Occurrences starting 07/07/2020 until 07/07/2020 [place], [place] Comment on above: Once for 1 Occurrenc es starting 07/07/2020 until 07/07/2020 US DUP ABD PEL RETRO SCROT LIMITED US DUP ABD PEL RETRO SCROT LIMITED Imaging STAT 07/08/2020 12:13 AM EST [place], [place] Payers Date Payer Category Payer Medicaid [id number] 2023 Unknown BCBS BCBS xxxxxx [id number] 2023-Present [phone] [address] [place] [address] [id number] 2023 Unknown [id number] 2021 Self-pay [id number] 2002 Unknown [id number] 2.16.840.1.168960.3.579.2.593 2002 Unknown [id number] 2.16.840.1.178400.3.579.2.593 2002 Unknown [id number] 2.16.840.1.342451.3.579.2.593 2002 Unknown [id number] 2.16.840.1.637414.3.579.2.727 2002 Unknown [id number] 2.16.840.1.940168.3.579.2.727 2002 Unknown [id number] 2.16.840.1.208479.3.579.2.125 2002 Unknown [id number] 2.16.840.1.131350.3.579.2.1258 2002 Unknown [id number] 2.16.840.1.387955.3.579.2.1258 2002 Unknown [id number] 2.16.840.1.793206.3.579.2.1258 2002 Unknown [id number] 2.16.840.1.669219.3.579.2.1258 2002 Unknown [id number] 2.16.840.1.891026.3.579.2.1258 2002 Unknown [id number] 2.16.840.1.274936.3.579.2.1258 2002 Unknown [id number] 2.16.840.1.990945.3.579.2.1258 2002 Unknown [id number] 2.16.840.1.611779.3.579.2.1258 2002 Unknown [id number] 2.16.840.1.225352.3.579.2.1258 2002 Unknown [id number] 2.16.840.1.144953.3.579.2.1258 2002 Unknown [id number] 2.16.840.1.367454.3.579.2.1258 2002 Unknown [id number] 2.16.840.1.695819.3.579.2.1259 2002 Unknown [id number] 2.16.840.1.074731.3.579.2.1259 2002 Unknown [id number] 2.16.840.1.882548.3.579.2.1259 2002 Unknown [id number] 2.16.840.1.206829.3.579.2.1259 1959 Medicaid [id number] 1957 Unknown [id number] Unknown [id number] 2.16.840.1.321710.3.579.2.531 Social History Date Type Detail Facility Start: 07-07-2020 End: 07-16-2023 Tobacco smoking status TXIS Never smoker [facility] Start: 07-07-2020 Tobacco use and exposure Never used [place], [place] Start: 2002 Sex Assigned At Not on file [place] Exposure to SARS-CoV-2 (event) Not sure [place] Start: 10-19-2021 Tobacco smoking status TXIS Smoker (finding) [facility] Start: 2002 Sex Assigned At Female F [facility] Tobacco smoking status [facility] Tobacco smoking consumption unknown [facility] Start: 05-22-2023 [facility] Start: 07-16-2023 Gender identity Not on file [facility] Start: 07-16-2023 End: 02-10-2024 Alcohol intake Lifetime non-drinker (finding) [facility] Start: 07-16-2023 History of Social function [facility] Tobacco smoking status No Smoking Status Entered [facility] Functional Status Date Assessment Result Facility 10-26-2023 Functional Status N/A [facility] Clinical Notes 07-03-2023 to 03-16-2024 Bailey Pollack LPN - 03/16/2024 2:50 PM AMAYA Mcdonald - 02/16/2024 11:00 AM Damari Pollack LPN - 02/10/2024 1:00 PM Damari Pollack LPN - 01/28/2024 3:30 PM EDT Note Date & Type Note Facility 03-16-2024 History of Presen t illness Narrative Reason for Appointment: Patient ID: Teodoro Upton is a 24 y.o. female who presents for Care Patient presents today for Post Follow Up appointment. MEDICATIONS No current outpatient medications ALLERGIES No Known Allergies PROBLEMS Active Ambulatory Problems Diagnosis Date Noted No Active Ambulatory Problems Resolved Ambulatory Problems Diagnosis Date Noted Polyhydramnios affecting in third trimester 12/24/2023 Excessive growth affecting management of mother, antepartum 12/24/2023 Past Medical History: Diagnosis Date ADD (attention deficit disorder) Asthma ([facility]) HISTORY PAST MEDICAL HISTORY SOCIAL HISTORY Past Medical History: Diagnosis Date ADD (attention deficit disorder) ADD/ ADHD Asthma ([facility]) Social History Tobacco Use Smoking status: Never Smokeless tobacco: Not on file Substance Use Topics Alcohol use: Never Drug use: Never FAMILY HISTORY Family History Problem Relation Name Age of Onset Diabetes Mother ADD / ADHD Mother SURGICAL HISTORY Past Surgical History: Procedure Laterality Date SECTION, LOW TRANSVERSE 02/02/2024 REVIEW OF SYSTEMS Review of Systems: Review of Systems Constitutional: Negative. HENT: Negative. Eyes: Negative. Respiratory: Negative. Cardiovascular: Negative. Gastrointestinal: Negative. Genitourinary: Negative. Musculoskeletal: Negative. Skin: Negative. Neurological: Negative. All other systems reviewed and are negative. Hematological: Negative. Endocrine: Negative. Allergic/Immunologic: Negative. OBJECTIVE Objective: Physical Exam Constitutional: Appearance: Normal appearance. She is well-developed. Cardiovascular: Rate and Rhythm: Normal rate and regular rhythm. Pulmonary: Effort: Pulmonary effort is normal. Breath sounds: Normal breath sounds. Abdominal: General: Bowel sounds are normal. There is no distension. Palpations: Abdomen is soft. Tenderness: There is no abdominal tenderness. There is no guarding or rebound. Musculoskeletal: General: No swelling. Normal range of motion. Right lower leg: No edema. Left lower leg: No edema. Neurological: Mental Status: She is alert and oriented to person, place, and time. Skin: General: Skin is warm and dry. Psychiatric: Mood and Affect: Mood normal. Behavior: Behavior normal. Vitals and nursing note reviewed. Exam conducted with a r d manager present. Vitals: There is no height or weight on file to calculate BMI. BP: 116/72 No LMP recorded. ASSESSMENT & PLAN ICD-10-CM 1. 6 weeks follow-up Z39.2 Post Follow Up: Patient is doing well. Patient presents today for 6 week visit. Patient is s/p delivery. Patient states depression but denies suicidal and homicidal ideations. All options were discussed with the patient regarding control and patient desires oral contraception . Rx for apri faxed to pharmacy. Follow Up: Patient is to return for annual unless needed otherwise. Documented by Bailey Pollack LPN on behalf of: Chung Yousif DO documented in this encounter [facility] 02-16-2024 History of Presen t illness Narrative Reason for Appointment: Patient ID: Teoodro Upton is a 24 y.o. female who presents for s/p c section and Vaginal Bleeding Patient presents today for Post Follow Up appointment. MEDICATIONS Current Outpatient Medications Medication Instructions Docusate Sodium (COLACE PO) Oral ibuprofen 800 mg, Oral, Every 8 hours Ubbndars-Pex-Cm-FA ( 1 + IRON PO) Oral simethicone (MYLICON) 80 mg, Oral, Every 6 hours PRN ALLERGIES No Known Allergies PROBLEMS Active Ambulatory Problems Diagnosis Date Noted No Active Ambulatory Problems Resolved Ambulatory Problems Diagnosis Date Noted Polyhydramnios affecting in third trimester 12/24/2023 Excessive growth affecting management of mother, antepartum 12/24/2023 Past Medical History: Diagnosis Date ADD (attention deficit disorder) Asthma ([facility]) HISTORY PAST MEDICAL HISTORY SOCIAL HISTORY Past Medical History: Diagnosis Date ADD (attention deficit disorder) ADD/ ADHD Asthma ([facility]) Social History Tobacco Use Smoking status: Never Smokeless tobacco: Not on file Substance Use Topics Alcohol use: Never Drug use: Never FAMILY HISTORY Family History Problem Relation Name Age of Onset Diabetes Mother ADD / ADHD Mother SURGICAL HISTORY Past Surgical History: Procedure Laterality Date SECTION, LOW TRANSVERSE 02/02/2024 REVIEW OF SYSTEMS Review of Systems: Review of Systems Constitutional: Negative. HENT: Negative. Eyes: Negative. Respiratory: Negative. Cardiovascular: Negative. Gastrointestinal: Negative. Genitourinary: Negative. Musculoskeletal: Negative. Skin: Negative. Neurological: Negative. All other systems reviewed and are negative. Hematological: Negative. Endocrine: Negative. Allergic/Immunologic: Negative. OBJECTIVE Objective: Physical Exam Constitutional: Appearance: Normal appearance. She [...] weight on file to calculate BMI. BP: 120/70 No LMP recorded. ASSESSMENT & PLAN ICD-10-CM 1. S/P section Z98.891 US PELVIS-TRANSVAG IF INDICATED 2. Vaginal bleeding N93.9 US PELVIS-TRANSVAG IF INDICATED Patient presents for post bleeding that began 2 days ago. She is post c section on 02/02/24. Vaginal exam is within normal limits. We will order US for completeness. Pt bleeding has slowed today Documented by AMAYA Shah on behalf of: AMAYA Shah documented in this encounter [facility] 02-10-2024 History of Presen t illness Narrative Reason for Appointment: Patient ID: Teodoro Upton is a 24 y.o. female who presents for Follow-up Patient presents today for Post Follow Up appointment. and 1 Week Post Op Follow Up appointment. MEDICATIONS Current Outpatient Medications Medication Instructions BABY ASPIRIN PO Oral, Daily Docusate Sodium (COLACE PO) Oral ibuprofen 800 mg, Oral, Every 8 hours oxyCODONE-acetaminophen (Percocet) 5-325 MG tablet 1 tablet, Oral, Every 6 hours Czncoozy-Puh-Ln-FA ( 1 + IRON PO) Oral simethicone (MYLICON) 80 mg, Oral, Every 6 hours PRN ALLERGIES No Known Allergies PROBLEMS Active Ambulatory Problems Diagnosis Date Noted No Active Ambulatory Problems Resolved Ambulatory Problems Diagnosis Date Noted Polyhydramnios affecting in third trimester 12/24/2023 Excessive growth affecting management of mother, antepartum 12/24/2023 Past Medical History: Diagnosis Date ADD (attention deficit disorder) Asthma (CMS/[facility]) HISTORY PAST MEDICAL HISTORY SOCIAL HISTORY Past Medical History: Diagnosis Date ADD (attention deficit disorder) ADD/ ADHD Asthma (CMS/HCC) Social History Tobacco Use Smoking status: Never Smokeless tobacco: Not on file Substance Use Topics Alcohol use: Never Drug use: Never FAMILY HISTORY Family History Problem Relation Name Age of Onset Diabetes Mother ADD / ADHD Mother SURGICAL HISTORY Past Surgical History: Procedure Laterality Date SECTION, LOW TRANSVERSE REVIEW OF SYSTEMS Review of Systems: Review of Systems Constitutional: Negative. HENT: Negative. Eyes: Negative. Respiratory: Negative. Cardiovascular: Negative. Gastrointestinal: Negative. Genitourinary: Negative. Musculoskeletal: Negative. Skin: Negative. Neurological: Negative. All other systems reviewed and are negative. Hematological: Negative. Endocrine: Negative. Allergic/Immunologic: Negative. OBJECTIVE Objective: Physical Exam Constitutional: Appearance: Normal appearance. She is well-developed. Cardiovascular: Rate and Rhythm: Normal rate and regular rhythm. Pulmonary: Effort: Pulmonary effort is normal. Breath sounds: Normal breath sounds. Abdominal: General: Bowel sounds are normal. There is no distension. Palpations: Abdomen is soft. Tenderness: There is no abdominal tenderness. There is no guarding or rebound. Musculoskeletal: General: No swelling. Normal range of motion. Right lower leg: No edema. Left lower leg: No edema. Neurological: Mental Status: She is alert and oriented to person, place, and time. Skin: General: Skin is warm and dry. Psychiatric: Mood and Affect: Mood normal. Behavior: Behavior normal. Vitals and nursing note reviewed. Exam conducted with a r d manager present. Vitals: There is no height or weight on file to calculate BMI. BP: 124/82 No LMP recorded. ASSESSMENT & PLAN ICD-10-CM 1. S/P section Z98.891 Patient presents today for a one week postop section check. Patient is doing well with minor complaints of pain. Incision has been noted as healing well with no signs and symptoms of infection. Follow Up: Patient is to return in 5 weeks for 6 week evaluation. Documented by Bailey Pollack LPN on behalf of: Chung Yousif DO documented in this encounter [facility] 01-28-2024 History of Presen t illness Narrative Reason for Appointment: Patient ID: Teodoro Upton is a 23 y.o. female who presents for Routine Visit Patient presents today for Return OB appointment. MEDICATIONS Current Outpatient Medications Medication Instructions BABY ASPIRIN PO Oral, Daily cephalexin (KEFLEX) 500 mg, Oral, 3 times daily Bbctoxst-Omi-Cf-FA ( 1 + IRON PO) Oral promethazine (PHENERGAN) 12.5 mg, Oral, Every 6 hours PRN, Take 1 tablet by mouth every 6 hours as needed for nausea. ALLERGIES No Known Allergies PROBLEMS Active Ambulatory Problems Diagnosis Date Noted Polyhydramnios affecting in third trimester 12/24/2023 Excessive growth affecting management of mother, antepartum 12/24/2023 Resolved Ambulatory Problems Diagnosis Date Noted No Resolved Ambulatory Problems Past Medical History: Diagnosis Date ADD (attention deficit disorder) Asthma ([facility]) HISTORY PAST MEDICAL HISTORY SOCIAL HISTORY Past Medical History: Diagnosis Date ADD (attention deficit disorder) ADD/ ADHD Asthma ([facility]) Social History Tobacco Use Smoking status: Never Smokeless tobacco: Not on file Substance Use Topics Alcohol use: Never Drug use: Never FAMILY HISTORY Family History Problem Relation Name Age of Onset Diabetes Mother ADD / ADHD Mother SURGICAL HISTORY History reviewed. No pertinent surgical history. REVIEW OF SYSTEMS Review of Systems: Review of Systems Constitutional: Negative. HENT: Negative. Eyes: Negative. Respiratory: Negative. Cardiovascular: Negative. Gastrointestinal: Negative. Genitourinary: Negative. Musculoskeletal: Negative. Skin: Negative. Neurological: Negative. All other systems reviewed and are negative. Hematological: Negative. Endocrine: Negative. Allergic/Immunologic: Negative. OBJECTIVE Objective: Physical Exam Constitutional: Appearance: Normal appearance. She is well-developed. Genitourinary: Vulva normal. Cardiovascular: Rate and Rhythm: Normal rate and regular rhythm. Pulmonary: Effort: Pulmonary effort is normal. Breath sounds: Normal breath sounds. Abdominal: General: Bowel sounds are normal. There is no distension. Palpations: Abdomen is soft. Tenderness: There is no abdominal tenderness. There is no guarding or rebound. Musculoskeletal: General: No swelling. Normal range of motion. Right lower leg: No edema. Left lower leg: No edema. Neurological: Mental Status: She is alert and oriented to person, place, and time. Skin: General: Skin is warm and dry. Psychiatric: Mood and Affect: Mood normal. Behavior: Behavior normal. Vitals and nursing note reviewed. Exam conducted with a r d manager present. Vitals: There is no height or weight on file to calculate BMI. BP: 130/86 Patient's last menstrual period was 05/08/2023. ASSESSMENT & PLAN ICD-10-CM 1. Third trimester Z34.93 POCT urinalysis dipstick manually resulted 2. Excessive growth affecting management of in third trimester, single or unspecified fetus O36.63X0 Return OB: Patient presents today for a routine obstetrics appointment. Patient is currently 37w6d . Patient states she is doing well but has complaints of being tired due to current . Patient has verbalizes frequent movement. labor precautions was discussed/given and patient was instructed to perform kick counts three times a day. Pt has large baby- >97% 9lbs 5oz at 37w6d. Discussed section vs trial of labor. Pt to be scheduled for primary section. Pt signed section consents and will report to [facility] on 02/05/24. Orders Placed This Encounter Procedures POCT urinalysis dipstick manually resulted Follow Up: Patient is to return to office in 1 week for routine OB appointment. Documented by Bailey Pollack LPN on behalf of: Chung Yousif DO documented in this encounter [facility] 01-21-2024 History of Presen t illness Narrative Reason for Appointment: Patient ID: Teodoro Upton is a 23 y.o. female who presents for Routine Visit Patient presents today for Return OB appointment. MEDICATIONS Current Outpatient Medications Medication Instructions BABY ASPIRIN PO Oral, Daily cephalexin (KEFLEX) 500 mg, Oral, 3 times daily Pbylmall-Qgg-Xp-FA ( 1 + IRON PO) Oral promethazine (PHENERGAN) 12.5 mg, Oral, Every 6 hours PRN, Take 1 tablet by mouth every 6 hours as needed for nausea. ALLERGIES No Known Allergies PROBLEMS Active Ambulatory Problems Diagnosis Date Noted Polyhydramnios affecting in third trimester 12/24/2023 Excessive growth affecting management of mother, antepartum 12/24/2023 Resolved Ambulatory Problems Diagnosis Date Noted No Resolved Ambulatory Problems Past Medical History: Diagnosis Date ADD (attention deficit disorder) Asthma (CMS/HCC) HISTORY PAST MEDICAL HISTORY SOCIAL HISTORY Past Medical History: Diagnosis Date ADD (attention deficit disorder) ADD/ ADHD Asthma (CMS/HCC) Social History Tobacco Use Smoking status: Never Smokeless tobacco: Not on file Substance Use Topics Alcohol use: Never Drug use: Never FAMILY HISTORY Family History Problem Relation Name Age of Onset Diabetes Mother ADD / ADHD Mother SURGICAL HISTORY History reviewed. No pertinent surgical history. REVIEW OF SYSTEMS Review of Systems: Review of Systems Constitutional: Negative. HENT: Negative. Eyes: Negative. Respiratory: Negative. Cardiovascular: Negative. Gastrointestinal: Negative. Genitourinary: Negative. Musculoskeletal: Negative. Skin: Negative. Neurological: Negative. All other systems reviewed and are negative. Hematological: Negative. Endocrine: Negative. Allergic/Immunologic: Negative. OBJECTIVE Objective: Physical Exam Constitutional: Appearance: Normal appearance. She is well-developed. Genitourinary: Vulva normal. Cardiovascular: Rate and Rhythm: Normal rate and regular rhythm. Pulmonary: Effort: Pulmonary effort is normal. Breath sounds: Normal breath sounds. Abdominal: General: Bowel sounds are normal. There is no distension. Palpations: Abdomen is soft. Tenderness: There is no abdominal tenderness. There is no guarding or rebound. Musculoskeletal: General: No swelling. Normal range of motion. Right lower leg: No edema. Left lower leg: No edema. Neurological: Mental Status: She is alert and oriented to person, place, and time. Skin: General: Skin is warm and dry. Psychiatric: Mood and Affect: Mood normal. Behavior: Behavior normal. Vitals and nursing note reviewed. Exam conducted with a r d manager present. Vitals: There is no height or weight on file to calculate BMI. BP: 126/82 Patient's last menstrual period was 05/08/2023. ASSESSMENT & PLAN ICD-10-CM 1. 36 weeks gestation of Z3A.36 POCT urinalysis dipstick manually resulted 2. Third trimester Z34.93 Return OB: Patient presents today for a routine obstetrics appointment. Patient is currently 36w6d . Patient states she is doing well but has complaints of being tired due to current . Patient has verbalizes frequent movement. labor precautions was discussed/given and patient was instructed to perform kick counts three times a day. Orders Placed This Encounter Procedures POCT urinalysis dipstick manually resulted Follow Up: Patient is to return to office in 1 week for routine OB appointment. Documented by Bailey Plolack LPN on behalf of: Chung Yousif DO documented in this encounter [facility] 10-26-2023 Note The following Patien t Education Materials have been given to the patient: EducationMaterial [facility] 10-26-2023 Hospital Discharg e instructions [...] provider. Document Revised: 01/02/2022 Document Reviewed: 01/02/2022 [employer] Patient Education 2022 [email or web address] 10/26/2023 03:10:04 Vaginal Bleeding During , Second [...] help with your regular activities. Medicines Take skke-auj-xblzaho and prescription medicines only as told by [...] provider. Document Revised: 02/08/2021 Document Reviewed: 02/08/2021 [employer] Patient Education 2022 [employer] 10/26/2023 03:10:04 Back Pain in Back [...] Standing, sitting, and lying down Do not wrapper rewinder one place for long periods of time. [...] your back during . General instructions Take lyuq-wie-nzaakov and prescription medicines only as told by [...] care provider for managing back pain. Take iuqb-hos-hfvljqo and prescription medicines only as told by [...] provider. Document Revised: 08/01/2021 Document Reviewed: 08/01/2021 [employer] Patient Education 2022 [employer] Follow Up Care 10/25/2023 23:39:34 With:Chung YOUSIF Address: [address] , [place] [address]- Business (1) When:11/04/2023 [facility] 10-25-2023 Evaluation + Plan note Diagnostic Tests PendingUrine Culture 10/25/23 [facility] 07-17-2023 History of Presen t illness Narrative Reason for Appointment: Patient ID: Teodoro Upton is a 23 y.o. female who presents for Routine Visit Patient presents today for Return OB appointment. Current Medications: has a current medication list which includes the following prescription(s): foufotkq-yxl-ik-fa and promethazine. Medical History: Active Ambulatory Problems [...] Chung Yousif DO documented in this encounter [facility] 07-03-2023 History of Presen t illness [...] Problems Past Medical History: Diagnosis Date Asthma ([facility]) No family history on file. Social [...] undercooked meat, stay away from [facility], do not change litter boxes, eat [...] Sarina Kilgore LPN documented in this encounter [facility] Healthcare Evaluation note No assessment inform ation available [facility] Work Phone: Evaluation note Diagnosis Missed menses Nausea and vomiting, unspecified vomiting type documented in this encounter [facility] Diagnosis First trimester state, incidental Vaginal bleeding in Threatened miscarriage Threatened , unspecified as to episode of care with uncertain viability, single or unspecified fetus documented in this encounter [facility]* Diagnosis 6 weeks follow-up documented in this encounter [facility] HealthcareEvaluation note* Diagnosis S/P section Other postprocedural status Vaginal bleeding Other specified noninflammatory disorder of vagina documented in this encounter [facility] HealthcareEvaluation note* Diagnosis 36 weeks gestation of Third trimester state, incidental Excessive growth affecting management of , antepartum, single or unspecified fetus documented in this encounter [facility] HealthcareEvaluation note* Diagnosis Third trimester state, incidental Excessive growth affecting management of in third trimester, single or unspecified fetus documented in this encounter [facility]* Diagnosis S/P section Other postprocedural status documented in this encounter [facility] HealthcareHospital course Narrative No data available for this [facility] Additional Instructions Please follow up as we discussed so you can have your concerns further evaluated.[facility] Work Phone: Progress note No data available for this section [facility] Discharge Instructions * Instructions* Brenda Stoner DO - 07/08/2020 [facility] ED Clinic List Healthcare Providers Services Day of Week/ Hours [facility] Services [address] [facility] Adult Primary Care [employer]//Specialty Clinics Friday 8:00a 4:30p [address] Adult Medicine, Pediatrics, [employer] Friday 8:30a 4:30p [facility] [address] [facility] Friday 8:30a 11:00a [facility] [address] [facility] Adult Internal Medicine ([facility]) [employer] Clinic Pediatric Clinic Friday, Friday, , Friday 8:00a 4:30p Friday 1:00p 4:30p Friday, Friday, 8:00a 5:00p; Friday 8:00a 12:30p Friday 1p 4p Friday, Friday, , Friday 8:30a 4:15p Wed 12:30p 4:15p [address] Pediatric Primary Care Adult Primary Care OB/ Friday, Friday 8a 12p 8a 4:45p [facility] [address] [facility] [place] [address] # Pre & Post Adoption Counseling Support / nutrition Care Reward Incentive Program [facility] Fri, , Fri, Fri 10:00a 4:30p Thur 10:00a 7:30p E [facility] Location Friday - Friday 10a 4:30p [facility] [employer] [address] [facility] Adult Internal Medicine [address] [facility] Pediatrics [address] [facility] Neuro / Headache [address] [facility] Friday 8:30a 5p [facility] [address] [facility] Family Practice Fri, , , Fri 9:00a 4:30p Wed 1:00p 4:30p [facility] [address] [facility] [address] Family Practice Friday 8:30a 5:00p [facility] Specialty Clinics [address] [facility] [address] Burn/Plastic, ENT, GI, Orthopedics, Surgical / Trauma, Urology, Vascular Friday 8:00 4:30p Call for an appointment [facility] [address] [facility] Adult Medicine, Eye Clinic, Dental Patient must be certified homeless Under age 18 not accepted Friday 8:00 4:30p [facility] [address] [facility] Practice OB Friday, Friday, Friday, Friday 9a 5p 9a 6p Friday (OB only) [facility] [address] [facility] OB/ Friday 11a 7p , Fri, 9a 5p Friday 8a 4p 1st Friday 9a 1p Podiatry Clinic [address] [facility] [address] Friday 8:00 4:[address] Free nurse visits [place] programs Counseling Class Call or walk in [facility] [address] Various Clinics 8a 5:30p [facility] Family Medicine [facility] [address] [facility] [facility] Friday 8a 4:30p [facility] [address] [place] [address] [id number] [address] [place], [place] [id number] Friday 8a 4:30p Friday 8a 4:30p 8a 8p Outpatient Clinics [facility] [address] [facility] Friday 9a 5p Diabetic Education Services Call for an appointment [facility] Heart Failure Clinic [address] [facility] Friday 8:30a 4p Dental Services [facility] [address] Must have source of income and must bring (2) recent check stubs to appointment By appointment only [facility] [address] Patient must be homeless, call for eligibility guidelines. Under age 18 NOT accepted Days and hours vary (Doors open at 8:30a day of week varies) Call for an appointment Miscellaneous Information [facility] Call for Help [phone] Call for an appointment H.E.L.P (Hospital Eligibility Link Program) toll free For financial assistance * Attachments The following attachments cannot be sent through Care Everywhere. * Bacterial Vaginosis (Gibralt[place]) * UTI (Urinary Tract Infection): Female ([place]) * Vitamin D: General Info ([place]) documented in this encounter Assessments Diagnosis BV [...] Reason Comments Amenorrhea Reason Comments Routine Visit Reason Comments Care Reason Comments s/p c section Vaginal Bleeding Reason Comments Follow-up Ordered Prescriptions (unrec ognized section and content) [...] content) DATE CREATED AUTHOR 07/16/2020 [facility] DATE CREATED AUTHOR AUTHOR'S ORGANIZ ATION 09/07/2022 [facility] DATE CREATED AUTHOR AUTHOR'S ORGANIZ ATION 10/27/[address] [facility] DATE CREATED AUTHOR AUTHOR'S ORGANIZ ATION 10/31/[address] [facility] DATE CREATED AUTHOR AUTHOR'S ORGANIZ ATION 03/18/2024 [facility] dical Specialists [facility] DATE CREATED AUTHOR AUTHOR'S ORGANIZ ATION 09/07/2024 [facility] Care Teams (unrecognized sec tion and content) [...] BE BASED ON THE PRIMARY CLINICAL RECORDS. [facility] [employer] [facility] provides no warranty or guarantee of the accuracy or completeness of information in this document.
[2024-11-26 18:18] VITALS: BP 153/97; PULSE 102; TEMP 37.1; O2SAT 97; BMI 50.9
--- NOTE | 2024-11-26 18:21 | XR_ITS ---
The [address] [address] Patient Name: TEODORO HERNANDES MRN: [id number] date: 2000 Sex: F Assigned Patient Location: ER Current Patient Location: Accession/Order Number: [id number] Exam Date: 11/26/2024 19:13 Report Date: 11/26/2024 19:14 At the request of: ROBERT CULLEN Procedure: XR foot RT min 3V RIGHT FOOT - 3 views CLINICAL HISTORY: puncture wound COMPARISON: 08/30/2022 FINDINGS: No fracture. No dislocation. Joint spaces preserved. No radiopaque foreign body. No subcutaneous emphysema. XR/XR foot RT min 3V IMPRESSION: NO ACUTE OSSEOUS FINDINGS. Impression dictated by: Ian Roldan M.D. 11/26/2024 7:14 PM Dictation Location: [place] [address] Electronically authenticated by: [id number] Y Date: 11/26/2024 19:14
--- NOTE | 2024-11-26 18:33 | ED.GENADUL1 ---
HPI HPI - General Adult General Chief complaint: Wound/Laceration Stated complaint: stepped on nail Time Seen by Provider: 11/26/24 17:55 Source: patient Mode of arrival: walk-in Limitations: no limitations History of Present Illness HPI narrative: 24-year-old female presents here with a chief complaint of an accidental puncture wound to the right foot she was walking through the grass with her shoes on and stepped on a nail. The nail did go through her shoe. She has a soft tissue puncture wound abrasion to the right sole of her foot. The injury occurred just prior to arrival. Related Data Previous Rx's ?Medication ?Instructions ?Recorded amoxicillin 875 mg-potassium 1 tab PO BID #20 tabs 11/26/24 clavulanate 125 mg tablet Allergies Allergy/AdvReac Type Severity Reaction Status Date / Time No Known Drug Allergies Allergy Verified 03/26/23 11:41 Opioid HPI Opioid Management Most Recent Opioid Data: Last Pain Scale 4 Today, 18:18 Ur Phencyclidine Scrn, (NEGATIVE) Negative 02/02/24, 01:30 Review of Systems ROS Status of ROS 10 or more systems reviewed and unremarkable except as noted in history and below [facility] Social History Little interest or pleasure in doing things: not at all Feeling down, depressed, or hopeless: not at all Exam Narrative Exam Narrative: All Systems are negative except as noted/marked.All systems reviewed and otherwise negative Nurses note and vital signs reviewed and patient is not hypoxic. General: The patient appears well and in no apparent distress. Patient is resting comfortably on cart. Skin: Warm, dry, no pallor noted. There is no rash noted. Head: Normocephalic, atraumatic Eye: Normal conjunctiva, no drainage, EOMI. PERRL Ears, Nose, Mouth, and Throat: oral mucosa is moist. Nares patent. Mouth without vesicles. Ear canals patent. Tm's without Erythema Cardiovascular: Regular Rate and Rhythm Musculoskeletal: superficial puncture wound/ Abrasion to the sole of the right foot, no acute foreign body, the patient has no evidence of calf tenderness, no pitting edema, symmetrical pulses noted bilaterally Neurological: A&O x4, normal speech Psychiatric: Cooperative Constitutional Vital Signs, click to edit/add: Last Vital Signs Temp 98.7 F 11/26/24 18:18 Pulse 102 H 11/26/24 18:18 Resp 18 11/26/24 18:18 BP 153/97 H 11/26/24 18:18 Pulse Ox 97 11/26/24 18:18 Course Vital Signs Vital signs: Vital Signs Temperature 98.7 F 11/26/24 18:18 Pulse Rate 102 H 11/26/24 18:18 Respiratory Rate 18 11/26/24 18:18 Blood Pressure 153/97 H 11/26/24 18:18 Pulse Oximetry 97 11/26/24 18:18 Temperature 98.7 F 11/26/24 18:18 Pulse Rate 102 H 11/26/24 18:18 Respiratory Rate 18 11/26/24 18:18 Blood Pressure 153/97 H 11/26/24 18:18 Pulse Oximetry 97 11/26/24 18:18 Medical Decision Making MDM Narrative Medical decision making narrative: Patient presented here chief complaint of an accidental puncture wound to the foot. Patient was x-ray showed no acute foreign body foot was soaked in Hibiclens normal saline scrubbed by nursing staff. Patient be discharged home with puncture wound and a prescription for Augmentin follow-up with podiatry as needed. Differential Diagnosis Differential Diagnosis: puncture wound foot, abrasion Medical Records Medical records reviewed: Yes I reviewed the patient's medical records Imaging Data foot: Attestation: I have reviewed the pertinent imaging results. Discharge Plan Discharge Chief Complaint: Wound/Laceration Clinical Impression: Puncture wound Patient Disposition: Home, Self-Care Time of Disposition Decision: 18:53 Condition: Good Prescriptions / Home Meds: New amoxicillin-pot clavulanate 875-125 mg tablet 1 tab PO BID Qty: 20 0RF Print Language: Albanian Instructions: Puncture Wound in the Foot (ED) Referrals: Physician,Non-Staff, [Primary Care Provider] - 1 week Felix Garcia DPM [Physician, Podiatry] - 1 week
== END 2024-11-26 19:14 | disposition home or self-care (01) ==
PROVIDERS: Emergency Provider Emergency Medicine
DX: S91.331A Puncture wound without foreign body, right foot, initial encounter (principal)
CPT/HCPCS: 73630; 99283